=== PATIENT | male | born 1975 | race Caucasian/White ===

== ENCOUNTER 2023-08-31 08:57 | Outpatient (RCR) | payer BC, MEDICARE, SELFPAY | END 2023-09-09 09:00 | disposition home or self-care (01) | LOC: PT 08:57 | PROVIDERS: PCP Nurse Practitioner; Visit Provider Nurse Practitioner | DX: M54.42 Lumbago with sciatica, left side (principal) | CPT/HCPCS: 97110; 97140; 97162 ==

== ENCOUNTER 2023-09-10 09:26 | Outpatient (RCR) | payer BC, SELFPAY | END 2023-10-17 13:29 | disposition home or self-care (01) | LOC: PT 09:26 | PROVIDERS: PCP Nurse Practitioner; Visit Provider Nurse Practitioner | DX: M54.42 Lumbago with sciatica, left side (principal) | CPT/HCPCS: 97012; 97014; 97110; 97113; 97140 ==

== ENCOUNTER 2023-10-29 08:19 | Outpatient (OUT) | payer BC, MEDICARE, SELFPAY ==
--- NOTE | 2023-10-29 | XR_ITS ---
The [address] [address] Patient Name: RAKESH PIÑA MRN: [id number] date: 1975 Sex: M Assigned Patient Location: Current Patient Location: Accession/Order Number: [id number] Exam Date: 10/29/2023 08:25 Report Date: 10/29/2023 09:21 At the request of: JUAN MANUEL CROW Procedure: XR hip LT 2V w/ pelvis PROCEDURE: XR hip LT 2V w/ pelvis HISTORY: LEFT HIP PAIN , pelvis pain COMPARISON: None. FINDINGS: BONES:Mild narrowing of the hip joint spaces, left greater than right. Small periarticular degenerative osteophytes. No fracture or dislocation. Disc space narrowing of the visible lumbar spine. SOFT TISSUES:No visible soft tissue swelling. EFFUSION:None visible. OTHER: Negative. XR/XR hip LT 2V w/ pelvis IMPRESSION: 1. Slightly limited examination due to patient body habitus. 2. Mild/moderate degenerative joint disease. No acute bone abnormality. 3. Degenerative disc disease of lumbar spine. Electronically authenticated by: JUAN MANUEL RINALDI Date: 10/29/2023 09:21
--- OUTSIDE RECORDS SUMMARY | 2023-10-29 08:07 | XMS_ITS | CCD ---
Author Name Unknown Address [address] [place] [address] Organization [facility] Care Team Providers Care Edge Kitter Name Role Phone MAZIN CANO Admitting Unavailable RACHAEL, MAZIN Attending Unavailable SHEILA, DR LULU Tejeda Primary Care Unavailable WEST, DR KELLIE Benavides Consulting Unavailable MAZIN CANO Consulting Unavailable SHEILA, DR LULU Tejeda Admitting Unavailable BLANK, DR LULU Tejeda Attending Unavailable BLANK, DR LULU Tejeda Primary Care Unavailable BLANK, DR LULU Tejeda Consulting Unavailable WEST, DR KELLIE Benavides Consulting Unavailable BLANK, DR LULU Tejeda Admitting Unavailable BLANK, DR LULU Tejeda Attending Unavailable BLANK, DR LULU Tejeda Primary Care Unavailable BLANK, DR LULU Tejeda Consulting Unavailable BLANK, DR LULU Tejeda Primary Care Unavailable FOZIA UGALDE Consulting Unavailable TRAM, FOZIA Admitting Unavailable TRAM, FOZIA Attending Unavailable Alexia Mancilla Primary Care Physician Alexia Mancilla Attending Unavailable Laurent, Alexia Sewell Admitting Unavailable Laurent, Alexia Sewell Attending Unavailable Laurent, Alexia Sewell Attending Unavailable Laurent, Alexia Sewell Admitting Unavailable Laurent, Alexia Sewell Attending Unavailable Laurent, Alexia Sewell Attending Unavailable Laurent, Alexia Sewell Attending Unavailable Laurent, Alexia Sewell Attending Unavailable Laurent, Alexia Sewell Attending Unavailable Medications Current Medications Medication Drug Class(es) Dates Sig (Normalized) Sig (Original) Cranberry preparation (1 source) Non-Standardized Food Allergenic Extract, Non-Standardized Plant Allergenic Extract Start: 03-19-2023 take 1 tablet by mouth once daily cranberry oral capsule See Instructions, Refill(s) 0, 1 tablet daily Start Date: 03/19/23 Status: Ordered Fish Oils (1 source) Start: 03-19-2023 take 1 capsule by mouth once daily Fish Oil 500 mg oral capsule 500 mg = 1 cap(s), Oral, Daily, Refills(s) 0 Start Date: 03/19/23 Status: Ordered loratadine 10 mg oral capsule (1 source) Start: 03-19-2023 take 1 capsule by mouth once daily as needed loratadine 10 mg oral capsule 10 mg = 1 cap(s), Oral, Daily, PRN Allergy symptoms, # 10 cap(s), Refills(s) 0 Start Date: 03/19/23 Status: Ordered methylPREDNISolone 4 mg oral tablet (1 source) Corticosteroid Start: 03-19-2023 End: 03-25-2023 Medrol 4 mg Tab = 1 packet(s), Oral, As Directed, as directed on package labeling, X 6 day(s), # 21 tab(s), Refills(s) 0, Pharmacy: [facility]/pharmacy #[id number], 176.5, cm, 03/19/23 13:15:00 EDT, Height/Length Dosing Start Date: 03/19/23 Stop Date: 03/25/23 Status: Ordered PARoxetine hydrochloride 10 mg oral tablet (1 source) Serotonin Reuptake Inhibitor Start: 03-19-2023 take 1 tablet by mouth once daily paroxetine 10 mg Tab 10 mg = 1 tab(s), Oral, Daily, Refills(s) 0 Start Date: 03/19/23 Status: Ordered phentermine hydrochloride 37.5 mg oral tablet (1 source) Sympathomimetic Amine Anorectic Start: 03-19-2023 End: 04-18-2023 take 1 tablet by mouth once daily phentermine 37.5 mg Tab 37.5 mg = 1 tab(s), Oral, Daily, X 30 day(s), # 30 tab(s), Refills(s) 0, Pharmacy: [facility]/pharmacy #[id number], 176.5, cm, 03/19/23 13:15:00 EDT, Height/Length Dosing Start Date: 03/19/23 Stop Date: 04/18/23 Status: Ordered Problems Active Problems Problem Classification Problem Date Documented Da te Episodic/Chronic Disorders of lipid metabolism (1 source) Mixed hyperlipidemia; Translations: [MIXED HYPERLIPIDEMIA] Onset: 07-31-2022 Chronic Nutritional deficiencies (1 source) Vitamin D deficiency, unspecified; Translations: [VITAMIN D DEFICIENCY UNSPECIFIED] Onset: 07-31-2022 Chronic Other nutritional; endocrine; and metabolic disorders (1 source) Morbid (severe) obesity due to excess calories; Translations: [MORBID SEVERE OBES D/T EXCESS GAYATRI] Onset: 07-31-2022 Chronic Other nutritional; endocrine; and metabolic disorders (1 source) Body mass index (BMI) 50.0-59.9, adult; Translations: [BODY MASS INDEX BMI 50.0-59.9 ADULT] Onset: 07-31-2022 Chronic Other nutritional; endocrine; and metabolic disorders (1 source) Morbid obesity 03-19-2023 Chronic Other upper respiratory infections (5 sources) Acute pharyngitis, unspecified; Translations: [Acute upper respiratory infection, unspecified] Onset: 07-28-2022 Episodic Residual codes; unclassified (1 source) Obstructive sleep apnea (adult) (pediatric); Translations: [OBSTRUCTIVE SLEEP APNEA] Onset: 07-31-2022 Chronic Screening and history of mental health and substance abuse codes (1 source) Personal history of nicotine dependence; Translations: [PERSONAL HISTORY OF NICOTINE DEPEND] Onset: 07-31-2022 Episodic Spondylosis; intervertebral disc disorders; other back problems (1 source) Sciatica 03-19-2023 Episodic Unclassified (1 source) CONTACT W/AND (SUSP) EXPOS COVID-19; Translations: [CONTACT W/AND (SUSP) EXPOS COVID-19] Onset: 07-31-2022 Unclassified (1 source) COUGH, UNSPECIFIED; Translations: [COUGH, UNSPECIFIED] Onset: 02-03-2022 Unclassified (1 source) Patient encounter status 03-19-2023 Past or Other Problems Problem Classification Problem Date Documented Da te Episodic/Chronic Conditions associated with dizziness or vertigo (4 sources) Dizziness and giddiness; Translations: [DIZZINESS AND GIDDINESS] Onset: 02-01-2022 Episodic Fracture of upper limb (1 source) Other fracture of fifth metacarpal bone, left hand, initial encounter for closed fracture; Translations: [OTH FX 5TH MC BN LH INIT CLOS FX] Onset: 11-11-2021 Episodic Other upper respiratory disease (1 source) Nasal congestion; Translations: [NASAL CONGESTION] Onset: 02-03-2022 Episodic Superficial injury; contusion (6 sources) Contusion of left little finger without damage to nail, initial encounter; Translations: [Contusion of left ring finger without damage to nail, initial encounter] Onset: 11-10-2021 Episodic Results Test Name Value Interpretation Reference Range Facility Plan of Care - PT/OT/Speecho n 09-06-2023 Plan of Care - PT/OT/Speech [id number]#1 .00TIFF [facility] Physician Referralon 023 Physician Referral [id number]# 1.00TIFF [facility] Testost Totalon 08-25-2023 Testosterone [Mass/Vol] 321 ng/dL Invalid Interpretation Code [id number] [facility] Comment on above: Result Comment: Adul t male reference interval is based on a population of healthy nonobese males (BMI <30) between 19 and 39 years old. precious Perdue.al. JCEM 2017,102;0182-9464. PMID: [id number]. Performed at: [facility] [id number] PhD Domenic Rider Performed By: #### 2 [id number] ####[facility] [address] [place] [address] Reminderson 08-24-2023 Reminders - From: Alexia Muhammad To: [facility] - Clinical; Sent: 08/24/2023 14:20:02 EST Show up: 08/24/2023 14:20:00 EST Subject: Ambulatory Reminder Due Date/Time: 08/25/2023 14:19:00 EST Vitamin B12 and D are normal. Still waiting for testosterone level Results: Date Result Name Value Ref Range 08/23/2023 9:59 Vitamin B12 Lvl 301 pg/mL (50 - 1,500) 08/23/2023 9:59 Vitamin D 25 Hydroxy 57.7 ng/mL (30.0 - 100.0) left detailed message for patient below [facility] Family Medicine Office/Clini c Noteon 08-23-2023 Family Medicine Office/Clinic Note Chief Complaint 1 mo weight management f/u HPI Staff Rakesh is a 48 year old male presenting for 1 month follow up Weight management: Started Phentermine on 03/19/23 Sleeping well:Yes, 6-8 hours Chest pain:No Tremors:No Headaches:No Heart fluttering:No Blurred Vision:No Beginning weight: 473Ibs Previous weight: 187.2kg/411.8Ibs Today's weight: 187.5kg Questions/Concerns: Pt states the Adipex is not affecting his appetite anymore. He would like to discuss stopping and trying low carb. L Sciatic Nerve Pain - Pt was started on Cyclobenzaprine and Gabapentin at his Nov visit. He stopped taking those about 2 wks ago, states the Cyclobenzaprine made him tired all day and the Gabapentin made him feel like every thing was in slow motion. 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 He would like to discuss having his B12 checked, he is wondering if he is lacking in this and if this could be the cause of his leg pain. The standard range for ages 18 and older is >=18.5 and < 25 kg/m2. Your BMI today was above this range, this falls in the overweight to obese category and there are medical benefits to weight loss. We can offer counselling, referral, and/or medical support in addressing this problem. Your BMI and weight management will be followed at subsequent visits. History of Present Illness pt presents today for weight management. Review of Systems PHQ Score Initial Depression Screen Score: 0 SCORE ROS - Provider Constitutional: no fever, no chills, no sweats, no fatigue Respiratory: no shortness of breath, no cough, no orthopnea, no wheezing. Cardiovascular: no chest pain, no palpitations, no edema. Neurologic: no headache, no dizziness, no numbness, no weakness. Physical Exam Vitals & Measurements HR: 78(Peripheral) BP: 136/86 SpO2: 98% HT: 69 in HT: 176.5 cm WT: 187.5 kg WT: 412.5 lb BMI: 60.19 General: alert, no acute distress ENMT: oral mucosa moist, no pharyngeal erythema or exudate Cardiovascular: regular rate and rhythm, normal peripheral perfusion Respiratory: Lungs CTA, respirations non labored Extremities: no deformity, no trauma Neurological: oriented x 4, LOC appropriate for age, CN II-XII intact, motor strength equal & normal bilaterally, speech normal Assessment/Plan 1. Encounter for weight management (Z76.89: Persons encountering health services in other specified circumstances) pt presents today for weight management. pt has only lost 1 pound. pt states adipex is no longer effective. will not send next dose. pt would like vitamin b12 and D checked as well as testosterone. if levels are normal he would like referral to PT at [place] for bakc/leg pain. gabapentin and muscles relaxers did not help. 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 all questions answered. RTC as needed Ordered: cyclobenzaprine, 10 mg = 1 tab(s), Oral, Bedtime, PRN for spasm, # 30 tab(s), Refills(s) 0, Pharmacy: [facility] [address], 176.5, cm, 07/26/23 9:32:00 EST, Height/Length Dosing, 187.2, kg, 07/26/23 9:32:00 EST, Weight Dosing gabapentin, 300 mg = 1 cap(s), Oral, Daily, # 30 cap(s), Refills(s) 0, Pharmacy: [facility] [address], 176.5, cm, 07/26/23 9:32:00 EST, Height/Length Dosing, 187.2, kg, 07/26/23 9:32:00 EST, Weight Dosing 2. Fatigue (R53.83: Other fatigue) labs drawn today Ordered: Lab Specimen Collect [id number] Testosterone Level Total 3. Hypogonadism male (E29.1: Testicular hypofunction) testosterone ordered Ordered: Lab Specimen Collect [id number] Testosterone Level Total 4. BMI 60.0-69.9, adult (Z68.44: Body mass index [BMI] 60.0-69.9, adult) bmi education complete Ordered: cyclobenzaprine, 10 mg = 1 tab(s), Oral, Bedtime, PRN for spasm, # 30 tab(s), Refills(s) 0, Pharmacy: [facility], 176.5, cm, 07/26/23 9:32:00 EST, Height/Length Dosing, 187.2, kg, 07/26/23 9:32:00 EST, Weight Dosing gabapentin, 300 mg = 1 cap(s), Oral, Daily, # 30 cap(s), Refills(s) 0, Pharmacy: [facility], 176.5, cm, 07/26/23 9:32:00 EST, Height/Length Dosing, 187.2, kg, 07/26/23 9:32:00 EST, Weight Dosing Testosterone Level Total Vitamin B12 Level Vitamin D 25 Hydroxy Follow-up No qualifying data available Patient Education Obesity, Adult, Jlon-qb-[id number] Problem List/Past Medical History Ongoing Encounter for weight management Fatigue Hypogonadism male Left sciatic nerve pain Morbid obesity due to excess calories Numbness and tingling of foot Wellness examination Historical No qualifying data Procedure/Surgical History Gastric sleeve. Medications cranberry oral capsule, See Instructions Fish Oil 500 mg oral capsule, 500 mg= 1 cap(s), Oral, Daily loratadine 10 mg oral capsule, 10 mg= 1 cap(s), Oral, Daily, PRN paroxetine 10 mg Tab, 10 mg= 1 tab(s), Oral, Daily, 3 refills phentermine 37.5 mg Tab, 37.5 mg= 1 tab(s), Oral, Daily Allergies No Known Allergies Social History Tobacco Former smoker, quit more than 30 days ago Tob (more content not included)... [facility] Comment on above: Result Comment: Elec tronically Signed By: Alexia Muhammad\.br\Date and Time Signed: 08/23/23 12:58 EST Patient Educationon 08-23-20 Patient Education Gastroenterology Obesity, Adult Obesity is having too much body fat. Being obese means that your weight is more than what is healthy for you. BMI (body mass index) is a number that explains how much body fat you have. If you have a BMI of 30 or more, you are obese. Obesity can cause serious health problems, such as: ? Stroke. ? Coronary artery disease (CAD). ? Type 2 diabetes. ? Some types of cancer. ? High blood pressure (hypertension). ? High cholesterol. ? Gallbladder stones. Obesity can also contribute to: ? Osteoarthritis. ? Sleep apnea. ? Infertility problems. What are the causes? ? Eating meals each day that are high in calories, sugar, and fat. ? Drinking a lot of drinks that have sugar in them. ? Being born with genes that may make you more likely to become obese. ? Having a medical condition that causes obesity. ? Taking certain medicines. ? Sitting a lot (having a sedentary lifestyle). ? Not getting enough sleep. What increases the risk? ? Having a family history of obesity. ? Living in an area with limited access to: ? [place], recreation centers, or sidewalks. ? Healthy food choices, such as grocery stores and [employer]. What are the signs or symptoms? The main sign is having too much body fat. How is this treated? Treatment for this condition often includes changing your lifestyle. Treatment may include: ? Changing your diet. This may include making a healthy meal plan. ? Exercise. This may include activity that causes your heart to beat faster (aerobic exercise) and strength training. Work with your doctor to design a program that works for you. ? Medicine to help you lose weight. This may be used if you are not able to lose one pound a week after 6 weeks of healthy eating and more exercise. ? Treating conditions that cause the obesity. ? Surgery. Options may include gastric banding and gastric bypass. This may be done if: ? Other treatments have not helped to improve your condition. ? You have a BMI of 40 or higher. ? You have life-threatening health problems related to obesity. Follow these instructions at home: Eating and drinking ? Follow advice from your doctor about what to eat and drink. Your doctor may tell you to: ? Limit fast food, sweets, and processed snack foods. ? Choose low-fat options. For example, choose low-fat milk instead of whole milk. ? Eat five or more servings of fruits or vegetables each day. ? Eat at home more often. This gives you more control over what you eat. ? Choose healthy foods when you eat out. ? Learn to read food labels. This will help you learn how much food is in one serving. ? Keep low-fat snacks available. ? Avoid drinks that have a lot of sugar in them. These include soda, fruit juice, iced tea with sugar, and flavored milk. ? Drink enough water to keep your pee (urine) pale yellow. ? Do not go on fad diets. Physical activity ? Exercise often, as told by your doctor. Most adults should get up to 150 minutes of moderate-intensity exercise every week.Ask your doctor: ? What types of exercise are safe for you. ? How often you should exercise. ? Warm up and stretch before being active. ? Do slow stretching after being active (cool down). ? Rest between times of being active. Lifestyle ? Work with your doctor and a food expert (dietitian) to set a weight-loss goal that is best for you. ? Limit your screen time. ? Find ways to reward yourself that do not involve food. ? Do not drink alcohol if: ? Your doctor tells you not to drink. ? You are , may be , or are planning to become . ? If you drink alcohol: ? Limit how much you have to: ? 0?1 drink a day for women. ? 0?2 drinks a day for men. ? Know how much alcohol is in your drink. In the [place] one drink equals one 12 oz bottle of beer (355 mL), one 5 oz glass of wine (148 mL), or one 1? oz glass of hard liquor (44 mL). General instructions ? Keep a weight-loss journal. This can help you keep track of: ? The food that you eat. ? How much exercise you get. ? Take xujj-epm-asdirpd and prescription medicines only as told by your doctor. ? Take vitamins and supplements only as told by your doctor. ? Think about joining a support group. ? Pay attention to your mental health as obesity can lead to depression or self esteem issues. ? Keep all follow-up visits. Contact a doctor if: ? You cannot meet your weight-loss goal after you have changed your diet and lifestyle for 6 weeks. ? You are having trouble breathing. Summary ? Obesity is having too much body fat. ? Being obese means that your weight is more than what is healthy for you. ? Work with your doctor to set a weight-loss goal. ? Get regular exercise as told by your doctor. This information is not intended to replace advice given to you by your health care provider. Make sure you discuss any questions you have with yo (more content not included)... [facility] Vit B12on 08-23-2023 Cobalamin (Vitamin B12) [Mass/Vol] 301 pg/mL Normal 50-1500 [facility] Comment on above: Performed By: #### 2 [id number] ####[facility] [address] [place] [address] Vitamin D 25 Hydroxyon 08-23 Vitamin D 25 Hydroxy 57.7 ng/mL Normal 30.0-100.0 [facility] Comment on above: Performed By: #### 2 [id number] ####[facility] [address] [place] [address] Ambulatory Visit Summaryon 1 09-25-2022 Ambulatory Visit Summary RAKESH PIÑA :1975 Visit Date:07/26/2023 Ambulatory Visit Instructions Your Diagnosis Encounter for weight management Left sciatic nerve pain Numbness and tingling of foot Class 3 obesity Nonsmoker BMI 60.0-69.9, adult Your Care Team Attending Physician - Alexia Muhammad Primary Care Physician - Alexia Muhammad This Is Your Medications List cranberry (cranberry oral capsule) loratadine (loratadine 10 mg oral capsule) omega-3 polyunsaturated fatty acids (Fish Oil 500 mg oral capsule) paroxetine (paroxetine 10 mg Tab) phentermine (phentermine 37.5 mg Tab) Procedures Performed Gastric sleeve. Discharge Vitals Temperature (Temporal Artery) 36.6 ?C Heart Rate (Peripheral) 82 Respiratory Rate 16 Blood Pressure 134/82 Height 176.5 cm Height 69 in Weight 187.2 kg Weight 411.84 lb BMI 60.09 What to do next Scheduled Follow-Up Appointments 2022 9:20 AM EST With: Alexia Muhammad Where: [facility] Family Medicine Office/Clini c Noteon 07-26-2023 Family Medicine Office/Clinic Note HPI Staff Rakesh is a 48 year old male presenting for 1 month follow up Weight management: Started Phentermine on 03/19/23 Sleeping well:Yes, 6-8 hours Chest pain:No Tremors:No Headaches:No Heart fluttering:No Blurred Vision:No Beginning weight: 473Ibs Previous weight:411.6Ibs/187.6 9kg Today's weight: 187.2kg/411.8lbs Flu: UTD questions/Concerns: Asking for results from neurologist had EMG bilater LE's has pain left lower leg. Needs the adipex refilled [facility] Needs paxil refilled but goes to [facility] History of Present Illness pt presents for weight managment Review of Systems PHQ Score Initial Depression Screen Score: 1 SCORE ROS - Provider Constitutional: no fever, no chills, no sweats, no fatigue Respiratory: no shortness of breath, no cough, no orthopnea, no wheezing. Cardiovascular: no chest pain, no palpitations, no edema. Neurologic: no headache, no dizziness, no numbness, no weakness. Physical Exam Vitals & Measurements T: 36.6 ?C(Temporal Artery) HR: 82(Peripheral) RR: 16 BP: 134/82 SpO2: 99% HT: 69 in HT: 176.5 cm WT: 187.2 kg WT: 411.84 lb BMI: 60.09 General: alert, no acute distress ENMT: oral mucosa moist, no pharyngeal erythema or exudate Cardiovascular: regular rate and rhythm, normal peripheral perfusion Respiratory: Lungs CTA, respirations non labored Extremities: no deformity, no trauma Neurological: oriented x 4, LOC appropriate for age, CN II-XII intact, motor strength equal & normal bilaterally, speech normal Assessment/Plan 1. Encounter for weight management (Z76.89: Persons encountering health services in other specified circumstances) pt did not lose this month. states the hip and leg pain is preventing him from do any extra exercise. will send another month of adipex Ordered: cyclobenzaprine, 10 mg = 1 tab(s), Oral, Bedtime, PRN for spasm, # 30 tab(s), Refills(s) 0, Pharmacy: [facility], 176.5, cm, 07/26/23 9:32:00 EST, Height/Length Dosing, 187.2, kg, 07/26/23 9:32:00 EST, Weight Dosing gabapentin, 300 mg = 1 cap(s), Oral, Daily, # 30 cap(s), Refills(s) 0, Pharmacy: [facility], 176.5, cm, 07/26/23 9:32:00 EST, Height/Length Dosing, 187.2, kg, 07/26/23 9:32:00 EST, Weight Dosing methylPREDNISolone, = 1 packet(s), Oral, As Directed, as directed on package labeling, X 6 day(s), # 21 tab(s), Refills(s) 0, Pharmacy: [facility] #[facility], 176.5, cm, 07/26/23 9:32:00 EST, Height/Length Dosing, 187.2, kg, 07/26/23 9:32:00 EST, Weight Dosing 2. Left sciatic nerve pain (M54.32: Sciatica, left side) discussed EMG results. will order gabapentin and muscle relaxer for bedtime. pt to rerutn in 1 month if no improvement will send to PT Ordered: cyclobenzaprine, 10 mg = 1 tab(s), Oral, Bedtime, PRN for spasm, # 30 tab(s), Refills(s) 0, Pharmacy: [facility] #[facility], 176.5, cm, 07/26/23 9:32:00 EST, Height/Length Dosing, 187.2, kg, 07/26/23 9:32:00 EST, Weight Dosing gabapentin, 300 mg = 1 cap(s), Oral, Daily, # 30 cap(s), Refills(s) 0, Pharmacy: [facility], 176.5, cm, 07/26/23 9:32:00 EST, Height/Length Dosing, 187.2, kg, 07/26/23 9:32:00 EST, Weight Dosing methylPREDNISolone, = 1 packet(s), Oral, As Directed, as directed on package labeling, X 6 day(s), # 21 tab(s), Refills(s) 0, Pharmacy: [facility], 176.5, cm, 07/26/23 9:32:00 EST, Height/Length Dosing, 187.2, kg, 07/26/23 9:32:00 EST, Weight Dosing 3. Numbness and tingling of foot (R20.0: Anesthesia of skin) discussed ENG results Ordered: cyclobenzaprine, 10 mg = 1 tab(s), Oral, Bedtime, PRN for spasm, # 30 tab(s), Refills(s) 0, Pharmacy: [facility], 176.5, cm, 07/26/23 9:32:00 EST, Height/Length Dosing, 187.2, kg, 07/26/23 9:32:00 EST, Weight Dosing gabapentin, 300 mg = 1 cap(s), Oral, Daily, # 30 cap(s), Refills(s) 0, Pharmacy: [facility], 176.5, cm, 07/26/23 9:32:00 EST, Height/Length Dosing, 187.2, kg, 07/26/23 9:32:00 EST, Weight Dosing methylPREDNISolone, = 1 packet(s), Oral, As Directed, as directed on package labeling, X 6 day(s), # 21 tab(s), Refills(s) 0, Pharmacy: [facility], 176.5, cm, 07/26/23 9:32:00 EST, Height/Length Dosing, 187.2, kg, 07/26/23 9:32:00 EST, Weight Dosing 4. Class 3 obesity (E66.01: Morbid (severe) obesity due to excess calories) pt continues with diet Ordered: cyclobenzaprine, 10 mg = 1 tab(s), Oral, Bedtime, PRN for spasm, # 30 tab(s), Refills(s) 0, Pharmacy: [facility], 176.5, cm, 07/26/23 9:32:00 EST, Height/Length Dosing, 187.2, kg, 07/26/23 9:32:00 EST, Weight Dosing gabapentin, 300 mg = 1 cap(s), Oral, Daily, # 30 cap(s), Refills(s) 0, Pharmacy: [facility], 176.5, cm, 07/26/23 9:32:00 EST, Height/Length Dosing, 187.2, kg, 07/26/23 9:32:00 EST, Weight Dosing methylPREDNISolone, = 1 packet(s), Oral, As Directed, as directed on package labeling, X 6 day(s), # 21 tab(s), Refills(s) 0, Pharmacy: [facility], (more content not included)... [facility] Comment on above: Result Comment: Elec tronically Signed By: Alexia Muhammad.br\Date and Time Signed: 07/26/23 09:54 EST EMG Electromyographyon 07-10 EMG Electromyography [id number]#1 .00TIFF [facility] EMG Electromyography [id number]#1. 00TIFF [facility] Physician Referralon 023 Physician Referral [id number] 1.00TIFF [facility] Ambulatory Visit Summaryon 1 Ambulatory Visit Summary RAKESH PIÑA :1975 Visit Date:06/21/2023 Ambulatory Visit Instructions Your Diagnosis Encounter for weight management BMI 50.0-59.9, adult Non-smoker BMI 60.0-69.9, adult Left sciatic nerve pain Morbid obesity due to excess calories Your Care Team Attending Physician - Alexia Muhammad Primary Care Physician - Alexia Muhammad This Is Your Medications List cranberry (cranberry oral capsule) loratadine (loratadine 10 mg oral capsule) meloxicam (meloxicam 15 mg Tab) omega-3 polyunsaturated fatty acids (Fish Oil 500 mg oral capsule) paroxetine (paroxetine 10 mg Tab) phentermine (phentermine 37.5 mg Tab) Procedures Performed Gastric sleeve. Discharge Vitals Heart Rate (Peripheral) 80 Respiratory Rate 18 Blood Pressure 136/88 Height 176.5 cm Height 69 in Weight 186.69 kg Weight 410.718 lb BMI 59.93 What to do next Scheduled Follow-Up Appointments 2022 9:20 AM EST With: Alexia Muhammad Where: [facility] Family Medicine Office/Clini c Noteon 06-21-2023 Family Medicine Office/Clinic Note HPI Staff Rakesh is a 48 year old male presenting for 1 month weight check Weight management: Started Phentermine on 03/19/23 Sleeping well:Yes, 6-8 hours Chest pain:No Tremors:No Headaches:No Heart fluttering:No Blurred Vision:No Beginning weight: 437.0 Ibs Previous weight: 418.5Ibs/190.23Kg Today's weight:411.6ibs/1876. 69 Questions/Concerns: none History of Present Illness pt presents today for weight management. Review of Systems PHQ Score Initial Depression Screen Score: 0 ROS - Provider Constitutional: no fever, no chills, no sweats, no fatigue Respiratory: no shortness of breath, no cough, no orthopnea, no wheezing. Cardiovascular: no chest pain, no palpitations, no edema. Neurologic: no headache, no dizziness, no numbness, no weakness. Physical Exam Vitals & Measurements HR: 80(Peripheral) RR: 18 BP: 136/88 SpO2: 98% HT: 69 in HT: 176.5 cm WT: 186.69 kg WT: 410.718 lb BMI: 59.93 General: alert, no acute distress ENMT: oral mucosa moist, no pharyngeal erythema or exudate Cardiovascular: regular rate and rhythm, normal peripheral perfusion Respiratory: Lungs CTA, respirations non labored Extremities: no deformity, no trauma Neurological: oriented x 4, LOC appropriate for age, CN II-XII intact, motor strength equal & normal bilaterally, speech normal Assessment/Plan 1. Encounter for weight management (Z76.89: Persons encountering health services in other specified circumstances) pt presents today for weight management. 8 pound weight loss in last month. total weight loss is 11 pounds. pt is doing well. denies needs. all questions answered. RTC 4 weeks Ordered: meloxicam, 15 mg = 1 tab(s), Oral, Daily, X 30 day(s), # 30 tab(s), Refills(s) 1, Pharmacy: [facility], 176.5, cm, 06/21/23 9:41:00 EDT, Height/Length Dosing, 186.7, kg, 06/21/23 9:41:00 EDT, Weight Dosing meloxicam, 15 mg = 1 tab(s), Oral, Daily, X 30 day(s), # 30 tab(s), Refills(s) 0, Pharmacy: [facility], 176.5, cm, 06/21/23 9:41:00 EDT, Height/Length Dosing, 186.7, kg, 06/21/23 9:41:00 EDT, Weight Dosing meloxicam, 15 mg = 1 tab(s), Oral, Daily, # 30 tab(s), Refills(s) 1, Pharmacy: [facility], 176.5, cm, 05/22/23 9:51:00 EDT, Height/Length Dosing, 190.2, kg, 05/22/23 9:51:00 EDT, Weight Dosing 2. Left sciatic nerve pain (M54.32: Sciatica, left side) pt continues to have left sciatic nerve pain but it is improved Ordered: meloxicam, 15 mg = 1 tab(s), Oral, Daily, X 30 day(s), # 30 tab(s), Refills(s) 1, Pharmacy: [facility], 176.5, cm, 06/21/23 9:41:00 EDT, Height/Length Dosing, 186.7, kg, 06/21/23 9:41:00 EDT, Weight Dosing meloxicam, 15 mg = 1 tab(s), Oral, Daily, X 30 day(s), # 30 tab(s), Refills(s) 0, Pharmacy: [facility], 176.5, cm, 06/21/23 9:41:00 EDT, Height/Length Dosing, 186.7, kg, 06/21/23 9:41:00 EDT, Weight Dosing meloxicam, 15 mg = 1 tab(s), Oral, Daily, # 30 tab(s), Refills(s) 1, Pharmacy: [facility], 176.5, cm, 05/22/23 9:51:00 EDT, Height/Length Dosing, 190.2, kg, 05/22/23 9:51:00 EDT, Weight Dosing phentermine, 37.5 mg = 1 tab(s), Oral, Daily, X 30 day(s), # 30 tab(s), Refills(s) 0, Pharmacy: [facility], 176.5, cm, 05/22/23 9:51:00 EDT, Height/Length Dosing, 190.2, kg, 05/22/23 9:51:00 EDT, Weight Dosing [facility] External Ambulatory Referral 3. Lower extremity numbness (R20.0: Anesthesia of skin) EMG order sent to [facility] in [place] Ordered: [facility] External Ambulatory Referral 4. Morbid obesity due to excess calories (E66.01: Morbid (severe) obesity due to excess calories) BMI education complete Ordered: meloxicam, 15 mg = 1 tab(s), Oral, Daily, X 30 day(s), # 30 tab(s), Refills(s) 1, Pharmacy: [facility], 176.5, cm, 06/21/23 9:41:00 EDT, Height/Length Dosing, 186.7, kg, 06/21/23 9:41:00 EDT, Weight Dosing meloxicam, 15 mg = 1 tab(s), Oral, Daily, X 30 day(s), # 30 tab(s), Refills(s) 0, Pharmacy: [facility], 176.5, cm, 06/21/23 9:41:00 EDT, Height/Length Dosing, 186.7, kg, 06/21/23 9:41:00 EDT, Weight Dosing meloxicam, 15 mg = 1 tab(s), Oral, Daily, # 30 tab(s), Refills(s) 1, Pharmacy: [facility], 176.5, cm, 05/22/23 9:51:00 EDT, Height/Length Dosing, 190.2, kg, 05/22/23 9:51:00 EDT, Weight Dosing phentermine, 37.5 mg = 1 tab(s), Oral, Daily, X 30 day(s), # 30 tab(s), Refills(s) 0, Pharmacy: [facility], 176.5, cm, 05/22/23 9:51:00 EDT, Height/Length Dosing, 190.2, kg, 05/22/23 9:51:00 EDT, Weight Dosing 5. BMI 50.0-59.9, adult (Z68.43: Body mass index [BMI] 50.0-59.9, adult) BMI education complete 6. Non-smoker (Z78.9: Other specified health status) continue not smoking Ordered: meloxicam, 15 mg = 1 tab(s), Oral, Daily, X 30 day(s), # 30 tab(s), Refills(s) 1, Pharmacy: [facility], 176.5, cm, 06/21/23 9:41:00 EDT, Height/Length Dosing, 186.7, kg, 06/21/23 9:41:00 EDT, Weight Dosing meloxicam, 15 mg = 1 tab(s), Or (more content not included)... [facility] Comment on above: Result Comment: Elec tronically Signed By: Alexia Muhammad\.br\Date and Time Signed: 06/21/23 14:25 EDT Ambulatory Visit Summaryon 0 05-22-2023 Ambulatory Visit Summary RAKESH PIÑA :1975 Visit Date:05/22/2023 Ambulatory Visit Instructions Your Diagnosis BMI 60.0-69.9, adult Non-smoker Your Care Team Attending Physician - Alexia Muhammad Primary Care Physician - Alexia Muhammad This Is Your Medications List cranberry (cranberry oral capsule) loratadine (loratadine 10 mg oral capsule) omega-3 polyunsaturated fatty acids (Fish Oil 500 mg oral capsule) paroxetine (paroxetine 10 mg Tab) phentermine (phentermine 37.5 mg Tab) Procedures Performed Gastric sleeve. Discharge Vitals Heart Rate (Peripheral) 76 Respiratory Rate 18 Blood Pressure 144/98 Height 176.5 cm Height 69 in Weight 190.23 kg Weight 418.506 lb BMI 61.06 What to do next Scheduled Follow-Up Appointments 2022 9:20 AM EDT With: Alexia Muhammad Where: [facility] Ambulatory Visit Summary RAKESH PIÑA :1975 Visit Date:05/22/2023 Ambulatory Visit Instructions Your Diagnosis BMI 60.0-69.9, adult Non-smoker Your Care Team Attending Physician - Alexia Muhammad Primary Care Physician - Alexia Muhammad This Is Your Medications List cranberry (cranberry oral capsule) loratadine (loratadine 10 mg oral capsule) omega-3 polyunsaturated fatty acids (Fish Oil 500 mg oral capsule) paroxetine (paroxetine 10 mg Tab) phentermine (phentermine 37.5 mg Tab) Procedures Performed Gastric sleeve. Discharge Vitals Heart Rate (Peripheral) 76 Respiratory Rate 18 Blood Pressure 144/98 Height 176.5 cm Height 69 in Weight 190.23 kg Weight 418.506 lb BMI 61.06 What to do next Scheduled Follow-Up Appointments 2022 9:20 AM EDT With: Alexia Muhammad Where: [facility] [place] Normal [facility] Office/Clini c Noteon 05-22-2023 [facility] Office/Clinic Note HPI Staff Rakesh is a 48 year old male presenting for weight management Weight management : 03/19/23 was started on Phentermine, last OV 04/24/23 weight was 191.59Kg/421.51Ibs Today weight: 419Ibs/190.23kg Sleeping well:Yes, 6-8 hours Chest pain:No Tremors:No Headaches:No Heart fluttering:No Blurred Vision:No Questions/Concerns: pt states having cramps to left thigh. History of Present Illness pt presents today for weight management. total weight loss 3 pounds Review of Systems PHQ Score Initial Depression Screen Score: 0 ROS - Provider Constitutional: no fever, no chills, no sweats, no fatigue Respiratory: no shortness of breath, no cough, no orthopnea, no wheezing. Cardiovascular: no chest pain, no palpitations, no edema. Neurologic: no headache, no dizziness, no numbness, no weakness. Physical Exam Vitals & Measurements HR: 76(Peripheral) RR: 18 BP: 144/98 SpO2: 98% HT: 69 in HT: 176.5 cm WT: 190.23 kg WT: 418.506 lb BMI: 61.06 General: alert, no acute distress ENMT: oral mucosa moist, no pharyngeal erythema or exudate Cardiovascular: regular rate and rhythm, normal peripheral perfusion Respiratory: Lungs CTA, respirations non labored Extremities: no deformity, no trauma Neurological: oriented x 4, LOC appropriate for age, CN II-XII intact, motor strength equal & normal bilaterally, speech normal Assessment/Plan 1. Encounter for weight management (Z76.89: Persons encountering health services in other specified circumstances) pt presents today for weight management. total weight loss in 1 month is 3 pounds. pt is doing well. denies side effects, but does states that he keeps getting cramps in his legs at night. 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 all questions answered. RTC 4 weeks Ordered: meloxicam, 15 mg = 1 tab(s), Oral, Daily, # 30 tab(s), Refills(s) 1, Pharmacy: [facility], 176.5, cm, 05/22/23 9:51:00 EDT, Height/Length Dosing, 190.2, kg, 05/22/23 9:51:00 EDT, Weight Dosing 2. Left sciatic nerve pain (M54.32: Sciatica, left side) will order antiinflammatory. steroid did not give him any relief Ordered: meloxicam, 15 mg = 1 tab(s), Oral, Daily, # 30 tab(s), Refills(s) 1, Pharmacy: [facility], 176.5, cm, 05/22/23 9:51:00 EDT, Height/Length Dosing, 190.2, kg, 05/22/23 9:51:00 EDT, Weight Dosing phentermine, 37.5 mg = 1 tab(s), Oral, Daily, X 30 day(s), # 30 tab(s), Refills(s) 0 phentermine, 37.5 mg = 1 tab(s), Oral, Daily, X 30 day(s), # 30 tab(s), Refills(s) 0, Pharmacy: [facility], 176.5, cm, 05/22/23 9:51:00 EDT, Height/Length Dosing, 190.2, kg, 05/22/23 9:51:00 EDT, Weight Dosing 3. BMI 60.0-69.9, adult (Z68.44: Body mass index [BMI] 60.0-69.9, adult) BMI education complete Ordered: meloxicam, 15 mg = 1 tab(s), Oral, Daily, # 30 tab(s), Refills(s) 1, Pharmacy: [facility], 176.5, cm, 05/22/23 9:51:00 EDT, Height/Length Dosing, 190.2, kg, 05/22/23 9:51:00 EDT, Weight Dosing 4. Morbid obesity due to excess calories (E66.01: Morbid (severe) obesity due to excess calories) see above Ordered: meloxicam, 15 mg = 1 tab(s), Oral, Daily, # 30 tab(s), Refills(s) 1, Pharmacy: [facility], 176.5, cm, 05/22/23 9:51:00 EDT, Height/Length Dosing, 190.2, kg, 05/22/23 9:51:00 EDT, Weight Dosing phentermine, 37.5 mg = 1 tab(s), Oral, Daily, X 30 day(s), # 30 tab(s), Refills(s) 0 phentermine, 37.5 mg = 1 tab(s), Oral, Daily, X 30 day(s), # 30 tab(s), Refills(s) 0, Pharmacy: [facility], 176.5, cm, 05/22/23 9:51:00 EDT, Height/Length Dosing, 190.2, kg, 05/22/23 9:51:00 EDT, Weight Dosing 5. Non-smoker (Z78.9: Other specified health status) continue not smoking Ordered: meloxicam, 15 mg = 1 tab(s), Oral, Daily, # 30 tab(s), Refills(s) 1, Pharmacy: [facility], 176.5, cm, 05/22/23 9:51:00 EDT, Height/Length Dosing, 190.2, kg, 05/22/23 9:51:00 EDT, Weight Dosing phentermine, 37.5 mg = 1 tab(s), Oral, Daily, X 30 day(s), # 30 tab(s), Refills(s) 0 phentermine, 37.5 mg = 1 tab(s), Oral, Daily, X 30 day(s), # 30 tab(s), Refills(s) 0, Pharmacy: [facility], 176.5, cm, 05/22/23 9:51:00 EDT, Height/Length Dosing, 190.2, kg, 05/22/23 9:51:00 EDT, Weight Dosing Follow-up No qualifying data available Problem List/Past Medical History Ongoing Encounter for weight management Left sciatic nerve pain Morbid obesity due to excess calories Wellness examination Historical No qualifying data Procedure/Surgical History Gastric sleeve. Medications cranberry oral capsule, See Instructions Fish Oil 500 mg oral capsule, 500 mg= 1 cap(s), Oral, Daily loratadine 10 mg oral capsule, 10 mg= 1 cap(s), Oral, Daily, PRN meloxicam 15 mg Tab, 15 mg= 1 tab(s), Oral, Daily, 1 refills paroxetine 10 mg Tab, 10 mg= 1 tab(s), Oral, Daily phentermine 37.5 mg Tab, 37.5 mg= 1 tab(s), Oral, Daily phentermine 37.5 mg Tab, 37.5 mg= 1 tab(s), Oral, Daily Allerg (more content not included)... Normal [facility] Comment on above: Result Comment: Elec tronically Signed By: Alexia Muhammad\.br\Date and Time Signed: 05/22/23 10:34 EDT [place] 04-26-2023 Consent [id number]:127 Normal [facility] Family Medicine Office/Clini c Noteon 04-24-2023 Family Medicine Office/Clinic Note HPI Staff Rakesh is a 48 year old male presenting for 1 month follow up weight management Weight management 03/19/23 patient was started on Phentermine 37.5 Previous weight 03/19/23 pt stated his last know weight was 410Ibs/ last documented weight from previous provider was 437 Sleeping well:Yes, 6-8 hours Chest pain:No Tremors:No Headaches:No Heart fluttering:No Blurred Vision:No History of Present Illness pt presents today for weight management. Last documented weight was 437 today's weight 422.4. Review of Systems PHQ Score Initial Depression Screen Score: 0 ROS - Provider Constitutional: no fever, no chills, no sweats, no fatigue Respiratory: no shortness of breath, no cough, no orthopnea, no wheezing. Cardiovascular: no chest pain, no palpitations, no edema. Neurologic: no headache, no dizziness, no numbness, no weakness. Physical Exam Vitals & Measurements HR: 82(Peripheral) RR: 18 BP: 132/88 SpO2: 98% HT: 69 in HT: 176.5 cm WT: 191.597 kg WT: 421.513 lb BMI: 61.5 General: alert, no acute distress ENMT: oral mucosa moist, no pharyngeal erythema or exudate Cardiovascular: regular rate and rhythm, normal peripheral perfusion Respiratory: Lungs CTA, respirations non labored Extremities: no deformity, no trauma Neurological: oriented x 4, LOC appropriate for age, CN II-XII intact, motor strength equal & normal bilaterally, speech normal Assessment/Plan 1. Encounter for weight management (Z76.89: Persons encountering health services in other specified circumstances) pt presents today for weight management. pt is doing well. denies side effects. Unable to get weight at first visit. but last documented weight from Dr. Blank was 437. today's weight in office is 422.4. paper prescription was given to pt. he will try to find cheaper pharmacy. RTC 4 weeks 2. Morbid obesity due to excess calories (E66.01: Morbid (severe) obesity due to excess calories) see above 3. BMI 60.0-69.9, adult (Z68.44: Body mass index [BMI] 60.0-69.9, adult) BMI education complete Ordered: phentermine, 37.5 mg = 1 tab(s), Oral, Daily, # 30 tab(s), Refills(s) 0 4. Non-smoker (Z78.9: Other specified health status) continue not smoking Ordered: phentermine, 37.5 mg = 1 tab(s), Oral, Daily, # 30 tab(s), Refills(s) 0 Follow-up No qualifying data available Problem List/Past Medical History Ongoing Encounter for weight management Left sciatic nerve pain Morbid obesity due to excess calories Wellness examination Historical No qualifying data Procedure/Surgical History Gastric sleeve. Medications cranberry oral capsule, See Instructions Fish Oil 500 mg oral capsule, 500 mg= 1 cap(s), Oral, Daily loratadine 10 mg oral capsule, 10 mg= 1 cap(s), Oral, Daily, PRN paroxetine 10 mg Tab, 10 mg= 1 tab(s), Oral, Daily phentermine 37.5 mg Tab, 37.5 mg= 1 tab(s), Oral, Daily Allergies No Known Allergies Social History Tobacco Former smoker, quit more than 30 days ago Tobacco Use:. Never Smokeless Tobacco Use:. Cigarettes, Household tobacco concerns: No., 04/24/2023 Family History Hypertension: Father. Immunizations Vaccine Date Status influenza virus vaccine, inactivated 06/07/2022 Recorded SARS-CoV-2 (COVID-19) mRNA BNT-162b2 vax 11/12/2020 Recorded SARS-CoV-2 (COVID-19) mRNA BNT-162b2 vax 10/22/2020 Recorded pneumococcal 23-valent vaccine 03/10/2019 Recorded Dx: H92 SAMI TM full of clear fluid pt is having dizziness. will give kenalog 60mg IM in office today. [facility] Comment on above: Result Comment: Elec tronically Signed By: Alexia Muhammad\.br\Date and Time Signed: 04/24/23 13:42 EDT Ambulatory Visit Summaryon 0 03-19-2023 Ambulatory Visit Summary RAKESH PIÑA :1975 Visit Date:03/19/2023 Ambulatory Visit Instructions Your Diagnosis Wellness examination Morbid obesity due to excess calories Non-smoker Left sciatic nerve pain Colon cancer screening Your Care Team Attending Physician - Alexia Muhammad Primary Care Physician - Alexia Muhammad This Is Your Medications List cranberry (cranberry oral capsule) loratadine (loratadine 10 mg oral capsule) methylPREDNISolone (Medrol 4 mg Tab) omega-3 polyunsaturated fatty acids (Fish Oil 500 mg oral capsule) paroxetine (paroxetine 10 mg Tab) phentermine (phentermine 37.5 mg Tab) Procedures Performed Gastric sleeve. Discharge Vitals Temperature (Oral) 36.8 ?C Heart Rate (Peripheral) 74 Respiratory Rate 18 Blood Pressure 136/88 Height 176.5 cm Height 69 in What to do next Scheduled Follow-Up Appointments Sunday 11:00 AM EDT With: Alexia Muhammad Where: [facility] Auto Diffon 03-19-2023 Basophils/100 WBC (Bld) 0.3 % Normal 0.0-2.0 [facility] Comment on above: Order Comment: Order Added by Discern Expert. Performed By: #### 2 [id number], 3906843, 3097719, [id number], [id number] ####[facility] [address] [place] [address] Basophils/Leukocytes Auto (Bld) [Pure # fraction] 0.0 E9/L Normal 0.0-0.2 [facility] Comment on above: Order Comment: Order Added by Discern Expert. Performed By: #### 2 010545, 9306938, 3141872, [id number], [id number] ####[address] [address] Eosinophils/100 WBC (Bld) 2.1 % Normal 0.0-8.0 [facility] Comment on above: Order Comment: Order Added by Discern Expert. Performed By: #### 2 653276, 4486097, 3894750, 2692461, [id number] ####[address] [address] Eosinophils/Leukocytes Auto (Bld) [Pure # fraction] 0.2 E9/L Normal 0.0-0.5 [facility] Comment on above: Order Comment: Order Added by Discern Expert. Performed By: #### 2 718439, 9101810, 9282136, 0166103, [id number] ####[address] [address] Lymphocytes/100 WBC (Bld) 20.5 % Normal 14.0-50.0 [facility] Comment on above: Order Comment: Order Added by Discern Expert. Performed By: #### 2 884326, 3113316, 4557532, 5598830, [id number] ####[facility] [id number] [place] [address] Lymphocytes/Leukocytes Auto (Bld) [Pure # fraction] 1.6 E9/L Normal 1.0-4.0 [facility] Comment on above: Order Comment: Order Added by Discern Expert. Performed By: #### 2 258937, 0371421, 2205882, 0334706, [id number] ####[address] [address] Monocytes/100 WBC (Bld) 8.7 % Normal 4.0-14.0 [facility] Comment on above: Order Comment: Order Added by Discern Expert. Performed By: #### 2 138007, 4670938, 6101300, 3743829, [id number] ####[address] [place] [address] Monocytes/Leukocytes Auto (Bld) [Pure # fraction] 0.7 E9/L Normal 0.2-1.0 [facility] Comment on above: Order Comment: Order Added by Discern Expert. Performed By: #### 2 331099, 7817087, 9180247, 1262827, [id number] ####[address] [place] [address] Neutrophils/100 WBC (Bld) 68.4 % Normal 36.0-75.0 [facility] Comment on above: Order Comment: Order Added by Discern Expert. Performed By: #### 2 505140, 0880925, 1271352, 8263674, [id number] ####[address] [address] Neutrophils/Leukocytes Auto (Bld) [Pure # fraction] 5.3 E9/L Normal 2.0-7.5 [facility] Comment on above: Order Comment: Order Added by Discern Expert. Performed By: #### 2 756940, 3718212, 9165316, 1084233, [id number] ####[address] [address] CBC w/ Auto Diffon 3 Erythrocyte distribution width (RBC) [Ratio] 16.3 % High 10.9-14.2 [facility] Comment on above: Performed By: #### 2 506093, 4217490, 4633002, 5724750, [id number] ####[address] [place] [address] Hematocrit (Bld) [Volume fraction] 43.7 % Normal 37.7-49.0 [facility] Comment on above: Performed By: #### 2 599557, 8748954, 5246726, 0619406, [id number] ####[address] [address] Hemoglobin (Bld) [Mass/Vol] 14.4 g/dL Normal 13.5-17.5 [facility] Comment on above: Performed By: #### 2 031735, 2798412, 4366341, 9678866, [id number] ####[id number] MCH (RBC) [Entitic mass] 27.9 pg Normal 27.0-34.0 [facility] Comment on above: Performed By: #### 2 520121, 4974754, 3838969, 3575634, 96699110 ####[address] [address] MCHC (RBC) [Mass/Vol] 33.0 g/dL Normal 31.4-36.0 [facility] Comment on above: Performed By: #### 2 960361, 4855081, 9639591, 6768265, [id number] ####[address] [address] MCV (RBC) [Entitic vol] 84.8 fL Normal 80.0-100.0 [facility] Comment on above: Performed By: #### 2 756797, 4163735, 9832495, 5744091, 67858205 ####[address] [address] Platelet mean volume (Bld) [Entitic vol] 7.7 fL Normal 6.4-10.8 [facility] Comment on above: Performed By: #### 2 974535, 5477583, 7228813, 5984967, 40648996 ####[address] [address] Platelets (Bld) [#/Vol] 278.0 E9/L Normal 150.0-500.0 [facility] Comment on above: Performed By: #### 2 651802, 0071291, 0432736, 6742448, 75332109 ####[facility] [address] [place] [address] RBC (Bld) [#/Vol] 5.2 E12/L Normal 4.3-5.9 [facility] Comment on above: Performed By: #### 2 383279, 5558986, 9125305, 4160937, [id number] ####[facility] [address] [place] [address] WBC corrected for nucl RBC Auto (Bld) [#/Vol] 7.7 E9/L Normal 4.0-11.0 [facility] Comment on above: Performed By: #### 2 108615, 2986087, 6155745, 0212395, [id number] ####[facility] [address] [place] [address] CHEMISTRYOrdered By: SYSTEM SYSTEM on 03-19-2023 Cholesterol [Mass/Vol] 171 mg/dL Normal 120 - 200 mg/dL [facility] Cholesterol in HDL [Mass/Vol] 39 mg/dL Invalid Interpretation Code [facility] Cholesterol in LDL [Mass/Vol] 112 mg/dL Normal <=129mg/dL [facility] Cholesterol in VLDL [Mass/Vol] 19 mg/dL Normal 7 - 40 mg/dL [facility] Prostate specific Ag [Mass/Vol] 0.9 ng/mL Normal 0.1 - 3.5 ng/mL [facility] Triglyceride [Mass/Vol] 94 mg/dL Normal <=149mg/dL [facility] TSH Qn 2.03 m[IU]/L Normal 0.34 - 5.60 mcIU/mL [facility] Family Medicine Office/Clini c Noteon 03-19-2023 Family Medicine Office/Clinic Note HPI Staff Rakesh is a 47 year old presenting to establish care/physical Establish Care: History: Any previous diagnosis: History of seeing any specialist: no When was your last doctors visit: Last provider: Dr Blank Any recent labs: none within the last year Health Maintenance UTD: Colonoscopy: no PSA: no Acute: Current issues/complaints: 1 year Intermittent Pain started left hip radiating down left leg , has been doing stretches and taking vitamin B. OTC Aleve unable to obtain weight, weight scale says error patient states last known weight was 410Ibs History of Present Illness pt presents today for wellness visit Review of Systems PHQ Score Initial Depression Screen Score: 0 ROS - Provider Constitutional: no fever, no chills, no sweats, no weakness. Skin: no Jaundice, no rash, no lesions, no petechiae. ENMT: no ear pain, no sore throat, no congestion, no hoarseness,no swelling of lymph nodes Respiratory: no shortness of breath, no cough, no orthopnea, no wheezing. Cardiovascular: no chest pain, no palpitations, no edema. Gastrointestinal: no nausea, no vomiting, no diarrhea, no GI bleeding. Genitourinary: no dysuria, no hematuria, no discharge, no pain. Musculoskeletal: no back pain, no trauma. Neurologic: no headache, no dizziness, no numbness, no weakness. Psychiatric: noDepressionno Anxietyno sleeping problems, no Suicidal thoughts or ideationsno mood swings Additional ROS info: Except as noted in the above Review of Systems and in the History of Present Illness all other systems have been reviewed and are negative or noncontributory. Physical Exam Vitals & Measurements T: 36.8 ?C(Oral) HR: 74(Peripheral) RR: 18 BP: 136/88 SpO2: 97% HT: 69 in HT: 176.5 cm General: alert, no acute distress Skin: warm, dry Head: no trauma, normocephalic Neck: Trachea midline, thyroid not enlarged Eye: normal conjunctiva, sclera clear ENMT: oral mucosa moist, yes Cardiovascular: regular rate and rhythm, normal Respiratory: respirations non labored Chest wall: no deformity. Gastrointestinal: soft, non distended, no tenderness Back: No tenderness Extremities: no edema, no wound Neurological: awake, alert, oriented, speech normal Psychiatric: cooperative, affect appropriate for age Assessment/Plan 1. Wellness examination (Z00.00: Encounter for general adult medical examination without abnormal findings) pt presents today for wellness exam. work physical. pt is c/o left sided sciatic pain. pt is aware that if he would lose some weight this would help his pain. adipex will be sent. physical forms complete. urine tested for glucose was negative. all questions answered. RTC 4 weeks for weight check. Ordered: methylPREDNISolone, = 1 packet(s), Oral, As Directed, as directed on package labeling, X 6 day(s), # 21 tab(s), Refills(s) 0, Pharmacy: [facility]/pharmacy #[id number], 176.5, cm, 03/19/23 13:15:00 EDT, Height/Length Dosing phentermine, 37.5 mg = 1 tab(s), Oral, Daily, # 30 tab(s), Refills(s) 0, Pharmacy: [facility]/pharmacy #[id number], 176.5, cm, 03/19/23 13:15:00 EDT, Height/Length Dosing CBC w/ Auto Diff Cologuard Screening Test Lipid Panel PSA Screen, Total Thyroid Stimulating Hormone 2. Morbid obesity due to excess calories (E66.01: Morbid (severe) obesity due to excess calories) pt presents today. unable to get recent weight. scale will not measure. will send adipex Ordered: methylPREDNISolone, = 1 packet(s), Oral, As Directed, as directed on package labeling, X 6 day(s), # 21 tab(s), Refills(s) 0, [id number] 176.5, cm, 03/19/23 13:15:00 EDT, Height/Length Dosing phentermine, 37.5 mg = 1 tab(s), Oral, Daily, # 30 tab(s), Refills(s) 0, [id number], 176.5, cm, 03/19/23 13:15:00 EDT, Height/Length Dosing CBC w/ Auto Diff Cologuard Screening Test Lipid Panel PSA Screen, Total Thyroid Stimulating Hormone 3. Non-smoker (Z78.9: Other specified health status) continue not smoking Ordered: methylPREDNISolone, = 1 packet(s), Oral, As Directed, as directed on package labeling, X 6 day(s), # 21 tab(s), Refills(s) 0, Pharmacy: [facility]/pharmacy #[id number], 176.5, cm, 03/19/23 13:15:00 EDT, Height/Length Dosing phentermine, 37.5 mg = 1 tab(s), Oral, Daily, # 30 tab(s), Refills(s) 0, Pharmacy: [facility]/pharmacy #[id number], 176.5, cm, 03/19/23 13:15:00 EDT, Height/Length Dosing CBC w/ Auto Diff Cologuard Screening Test Lipid Panel PSA Screen, Total Thyroid Stimulating Hormone 4. Left sciatic nerve pain (M54.32: Sciatica, left side) medrol dose pack sent Ordered: methylPREDNISolone, = 1 packet(s), Oral, As Directed, as directed on package labeling, X 6 day(s), # 21 tab(s), Refills(s) 0, Pharmacy: [facility]/pharmacy #[id number], 176.5, cm, 03/19/23 13:15:00 EDT, Height/Length Dosing phentermine, 37.5 mg = 1 tab(s), Oral, Daily, # 30 tab(s), Refills(s) 0, [id number], 176.5, cm, 03/19/23 13:15:00 EDT, Height/Length Dosing Colon cancer screening (Z12.11: (more content not included)... Normal [facility] Comment on above: Result Comment: Elec tronically Signed By: Alexia Muhammad\.br\Date and Time Signed: 03/19/23 14:00 EDT Formson 03-19-2023 Forms [id number]:127 Normal [facility] HEMATOLOGYOrdered By: SYSTEM SYSTEM on 03-19-2023 Basophils/100 WBC (Bld) 0.3 % Normal 0.0 - 2.0 % [facility] Basophils/Leukocytes Auto (Bld) [Pure # fraction] 0.0 E9/L Normal 0.0 - 0.2 E9/L [facility] Eosinophils/100 WBC (Bld) 2.1 % Normal 0.0 - 8.0 % [facility] Eosinophils/Leukocytes Auto (Bld) [Pure # fraction] 0.2 E9/L Normal 0.0 - 0.5 E9/L [facility] Lymphocytes/100 WBC (Bld) 20.5 % Normal 14.0 - 50.0 % [facility] Lymphocytes/Leukocytes Auto (Bld) [Pure # fraction] 1.6 E9/L Normal 1.0 - 4.0 E9/L [facility] Monocytes/100 WBC (Bld) 8.7 % Normal 4.0 - 14.0 % [facility] Monocytes/Leukocytes Auto (Bld) [Pure # fraction] 0.7 E9/L Normal 0.2 - 1.0 E9/L [facility] Neutrophils/100 WBC (Bld) 68.4 % Normal 36.0 - 75.0 % [facility] Neutrophils/Leukocytes Auto (Bld) [Pure # fraction] 5.3 E9/L Normal 2.0 - 7.5 E9/L [facility] HEMATOLOGYOrdered By: Vaughn Chin on 03-19-2023 Erythrocyte distribution width (RBC) [Ratio] 16.3 % High 10.9 - 14.2 % [facility] Hematocrit (Bld) [Volume fraction] 43.7 % Normal 37.7 - 49.0 % [facility] Hemoglobin (Bld) [Mass/Vol] 14.4 g/dL Normal 13.5 - 17.5 gm/dL [facility] MCH (RBC) [Entitic mass] 27.9 pg Normal 27.0 - 34.0 pg [facility] MCHC (RBC) [Mass/Vol] 33.0 g/dL Normal 31.4 - 36.0 gm/dL [facility] MCV (RBC) [Entitic vol] 84.8 fL Normal 80.0 - 100.0 fL [facility] Platelet mean volume (Bld) [Entitic vol] 7.7 fL Normal 6.4 - 10.8 fL [facility] Platelets (Bld) [#/Vol] 278.0 E9/L Normal 150.0 - 500.0 E9/L [facility] RBC (Bld) [#/Vol] 5.2 E12/L Normal 4.3 - 5.9 E12/L [facility] WBC corrected for nucl RBC Auto (Bld) [#/Vol] 7.7 E9/L Normal 4.0 - 11.0 E9/L [facility] Lipid Panelon 03-19-2023 Cholesterol [Mass/Vol] 171 mg/dL Normal 120-200 [facility] Comment on above: Performed By: #### 2 [id number], [id number], [id number], [id number], [id number] ####[facility] [address] [place] [address] Cholesterol in HDL [Mass/Vol] 39 mg/dL Invalid Interpretation Code [facility] Comment on above: Result Comment: HDL > or equal to 60 mg/dL: Low cardiovascular risk HDL < 40 mg/dL : High cardiovascular risk Performed By: #### 2 [id number], [id number], [id number], [id number], [id number] ####[facility] [address] [place] [address] Cholesterol in LDL [Mass/Vol] 112 mg/dL Normal <=129 [facility] Comment on above: Performed By: #### 2 [id number], [id number], [id number], [id number], [id number] ####[facility] [address] [place] [address] Cholesterol in VLDL [Mass/Vol] 19 mg/dL Normal 7-40 [facility] Comment on above: Performed By: #### 2 [id number], [id number], [id number], [id number], [id number] ####[facility] [address] [place] [address] Triglyceride [Mass/Vol] 94 mg/dL Normal <=149 [facility] Comment on above: Performed By: #### 2 [id number], [id number], 1149924, [id number], [id number] ####[facility] [address] [place] [address] PSA Screen, Totalon 03-19-20 23 Prostate specific Ag [Mass/Vol] 0.9 ng/mL Normal 0.1-3.5 [facility] Comment on above: Result Comment: The concentration of PSA determined by different manufacturers can vary due to differences in assay methods and reagent specificity. Values obtained from different assay methods cannot be used interchangeably. The methodology used for this result was chemiluminescence using [place]'s Access [employer] PSA reagent. Performed By: #### 2 [id number], [id number], [id number], [id number], [id number] ####[facility] [address] [place] [address] TSHon 03-19-2023 TSH Qn 2.03 m[IU]/L Normal 0.34-5.60 [facility] Comment on above: Performed By: #### 2 [id number], [id number], 6852886, [id number], [id number] ####[facility] [address] [place] [address] [facility]11 SARS-CoV-2 (COVID-19) RNA BETHANY+probe Ql (Unsp spec) Not detected Normal NOT DETECTED [facility] Comment on above: Result Comment: When diagnostic testing is negative, the possibility of a false negative should be considered in the context of a patient's recent exposures and the presence of clinical signs and symptoms consistent with SARS-CoV-2. This test is not yet approved or cleared by the [place] FDA. When there are no FDA-approved or cleared tests available, and other criteria are met, FDA can make tests available under an emergency access mechanism called an Emergency Use Authorization (EUA). The EUA for this test is supported by the [place] of Health and Human Service's declaration that circumstances exist to justify the emergency use of in vitro diagnostics for the detection and/or diagnosis of the virus that causes COVID-19. This EUA will remain in effect for the duration of the COVID-19 declaration justifying emergency of IVDs, unless it is terminated or revoked by the FDA (after which the test may no longer be used). Performed By: #### C VDTBH #### [facility] [address] [address] [address] Mynor Yun GROUP A STREP CULTUREon 07-11 S. pyogenes Ag Ql (Unsp spec) Culture Observations: NEGATIVE FOR GROUP A STREPTOCOCCUS. Normal [facility] Comment on above: Performed By: #### G RASTCX #### [facility] [address] [place], [place] [address] Dr. Mynor Yun INFLUENZA A AND B AGon 07-11 INFLUANEGH SEE BELOW Normal [facility] Comment on above: Result Comment: Nega tive for Flu A protein angiten. Infection due to Flu A cannot be ruled out. Flu A angiten in the sample may be below the detection limit of the test. Performed By: #### I NFLUAB #### [facility] [address] [place] [address] Dr. Mynor Yun INFLUBNEGH SEE BELOW Normal [facility] Comment on above: Result Comment: Nega tive for Flu B protein antigen. Infection due to Flu B cannot be ruled out. Flu B antigen in the sample may be below the detection limit of the test. Performed By: #### I NFLUAB #### [facility] [address] [place] [address] Dr. Mynor Yun INFLUENZA A AG Negative Normal NEGATIVE SEE COMMENT [facility] Comment on above: Performed By: #### I NFLUAB #### [facility] [address] [place] [address] Dr. Mynor Yun INFLUENZA B AG Negative Normal NEGATIVE SEE COMMENT [facility] Comment on above: Performed By: #### I NFLUAB #### [facility] [address] [place] [address] Dr. Mynor Yun INTERNAL CONTROLS Within Normal Limits Normal Wi thin Normal Limits [facility] Comment on above: Performed By: #### I NFLUAB #### [facility] [address] [place] [address] Dr. Mynor Yun STREPT SCREENon 07-28-2022 STREP SCREEN A Negative Normal NEGATIVE [facility] Comment on above: Performed By: #### S SCRN #### [facility] [address] [place] [address] Dr. Mynor Yun XR SINUSES 3 VIEWS OR GREATE Tim 02-01-2022 XR SINUSES 3 VIEWS OR GREATER EXAMINATION: XR SINUSES 3 VIEWS OR GREATER HISTORY: Vertigo COMPARISON: No relevant comparison available. FINDINGS: MAXILLARY: No mucosal thickening or fluid level. ETHMOID: No mucosal thickening or fluid level. FRONTAL: No mucosal thickening or fluid level. SPHENOID: No mucosal thickening or fluid level. OTHER: Negative. IMPRESSION: Clear paranasal sinuses Electronically authenticated by: KELLIE SMALLS Date: 2022-02-01 09:58 Normal [facility] HAND LEFT 3 VWSon 12-29-2021 HAND LEFT 3 [facility] Department of Radiology [address] [place] [id number] Patient Name: RAKESH PIÑA : 1975 Sex: M Age: Race: White Pt. Location: Patient Status: D Ordered Date: 12/29/2021 11:45:00 AM Completed Date: 12/29/2021 11:50 AM Requesting Provider: LORI DALLAS Attending Provider: LORI DALLAS Report Copy To: Signs & Symptoms: M79.642 Pain in left hand I10 History: Comments: Evaluate Exam: HAND LEFT 3 [facility] HAND LEFT 3 [facility] 12/29/2021 11:50 AM CLINICAL INDICATIONS: M79.642 Pain in left hand I10 TECHNOLOGIST COMMENTS: evaluate healing, fracture left hand beginning of November 2021 QUESTION FOR THE RADIOLOGIST: Evaluate PROTOCOL: AP,Lateral and Oblique views were obtained. COMPARISON: December 08 Impression: 1. Stable appearance of fracture with some new callus formation but fracture remains visible.. No change in positioning or alignment. Electronically signed: Heather Montana. Transcribed by: [email or web address], User Resident: Electronically Signed by: HEATHER MONTANA @ 12/31/2021 08:55 AM Normal [facility] Comment on above: Order Comment: Evalu ate HAND LEFT 3 [facility] 12-08-2021 HAND LEFT 3 [facility] Department of Radiology [address] [place] [id number] Patient Name: RAKESH PIÑA : 1975 Sex: M Age: Race: White Pt. Location: 84 Patient Status: D Ordered Date: 12/08/2021 1:25:00 PM Completed Date: 12/08/2021 01:29 PM Requesting Provider: LORI DALLAS Attending Provider: LORI DALLAS Report Copy To: Signs & Symptoms: M79.642 Pain in left hand I10 History: [place] Comments: Evaluate Exam: HAND LEFT 3 V[facility] HAND LEFT 3 [facility] 12/08/2021 1:29 PM CLINICAL INDICATIONS: M79.642 Pain in left hand I10 TECHNOLOGIST COMMENTS: left 5th injury 11/10/21 QUESTION FOR THE RADIOLOGIST: Evaluate PROTOCOL: AP,Lateral and Oblique views were obtained. COMPARISON: November 14, 2021. FINDINGS: Acute angle fracture of the fifth metacarpal neck reidentified. The fracture line appears slightly less discrete and mild callus formation is noted without osseous bridging. There is persistent osseous swelling. IMPRESSION: Redemonstration of the mildly angled boxer fracture of the fifth metacarpal with some callus but no osseous bridging. Electronically signed: Ronaldo Major. Transcribed by: [email or web address], User Resident: Electronically Signed by: RONALDO MAJOR @ 12/09/2021 04:04 PM Normal [facility] Comment on above: Order Comment: Evalu ate HAND LEFT 3 VWSon 11-14-2021 HAND LEFT 3 VWS [facility] Department of Radiology [address] [place] [address] Patient Name: RAKESH PIÑA : 1975 Sex: M Age: Race: White Pt. Location: Patient Status: O Ordered Date: 11/14/2021 1:50:00 PM Completed Date: 11/14/2021 01:58 PM Requesting Provider: CAPRICE CHAMBERS Attending Provider: CAPRICE CHAMBERS Report Copy To: Signs & Symptoms: S62.306A Unsp fracture of fifth metacarpal bone, left hand, init I10 History: Comments: Views (X-RAY, HAND): PA, Lateral, Oblique Exam: HAND LEFT 3 S HAND LEFT 3 S 11/14/2021 1:58 PM CLINICAL INDICATIONS: S62.306A Unsp fracture of fifth metacarpal bone, left hand, init I10 TECHNOLOGIST COMMENTS: left 5th fx last week work injury QUESTION FOR THE RADIOLOGIST: Views (X-RAY, HAND): PA, Lateral, Oblique PROTOCOL: AP,Lateral and Oblique views were obtained. COMPARISON: None FINDINGS: 3 views of the hand were obtained. There is a fracture of the fifth metacarpal distally with apex dorsal angulation. No other fracture is evident. Bone density appears within normal limits. Articular surfaces are intact. IMPRESSION: Fifth metacarpal boxers type fracture. Electronically signed: Ramirez Smith. Transcribed by: [email or web address], User Resident: Electronically Signed by: RAMIREZ SMITH @ 11/14/2021 08:02 PM Normal [facility] Comment on above: Order Comment: Views (X-RAY, HAND): PA, Lateral, Oblique TESTOSTERONE, TOTALon 2021 Testosterone [Mass/Vol] 411 ng/dL Normal 264-916 [facility] Comment on above: Result Comment: Adul t male reference interval is based on a population of healthy nonobese males (BMI <30) between 19 and 39 years old. Iron et.al. JCEM 2017,102;8563-7675. PMID: [id number]. Performed By: #### T ESTTOT #### [facility] [address] [place] [address] Dr. Mynor Yun CBC AUTO DIFFon 11-11-2021 BASO # 0.0 103/ul Normal 0.0-0.1 [facility] Comment on above: Performed By: #### C BC #### [facility] [address] [place] [address] Dr. Mynor Yun Basophils/100 WBC (Bld) 0.2 % Normal 0.2-2.0 [facility] Comment on above: Performed By: #### C BC #### [facility] [address] [place] [address] Dr. Mynor Yun EO # 0.1 103/ul Normal 0.0-0.7 [facility] Comment on above: Performed By: #### C BC #### [facility] [address] [place] [address] Dr. Mynor Yun Eosinophils/100 WBC (Bld) 1.2 % Normal 0.9-7.0 [facility] Comment on above: Performed By: #### C BC #### [facility] [address] [place] [address] Dr. Mynor Yun Erythrocyte distribution width (RBC) [Ratio] 14.3 % Normal 11.0-15.0 [facility] Comment on above: Performed By: #### C BC #### [facility] [address] [place] [address] Dr. Mynor Yun Hematocrit (Bld) [Volume fraction] 47.3 % Normal 42.0-54.0 [facility] Comment on above: Performed By: #### C BC #### [facility] [address] [place] [address] Dr. Mynor Yun Hemoglobin (Bld) [Mass/Vol] 15.2 g/dL Normal 14.0-18.0 [facility] Comment on above: Performed By: #### C BC #### [facility] [address] [place] [address] Dr. Mynor Yun IG # 0.03 10e3/ul Normal 0.00-0.03 [facility] Comment on above: Performed By: #### C BC #### [facility] [address] [place] [address] Dr. Mynor Yun IG % 0.3 % Normal 0.0-0.5 [facility] Comment on above: Performed By: #### C BC #### [facility] [address] [place] [address] Dr. Mynor Yun LYMPH # 1.6 103/ul Normal 1.2-3.8 [facility] Comment on above: Performed By: #### C BC #### [facility] [address] [place] [address] Dr. Mynor Yun Lymphocytes/100 WBC (Bld) 18.4 % Critically low 20.5-60.0 [facility] Comment on above: Performed By: #### C BC #### [facility] [address] [place] [address] Dr. Mynor Yun MANUAL DIFF REQ NO Normal [facility] Comment on above: Performed By: #### C BC #### [facility] [address] [place] [address] Dr. Mynor Yun MCH (RBC) [Entitic mass] 28.8 pg Normal 25.9-34.0 [facility] Comment on above: Performed By: #### C BC #### [facility] [address] [place] [address] Dr. Mynor Yun MCHC (RBC) [Mass/Vol] 32.1 g/dL Normal 29.9-35.2 [facility] Comment on above: Performed By: #### C BC #### [facility] [address] [place] [address] Dr. Mynor Yun MCV (RBC) [Entitic vol] 89.8 fL Normal 80.0-94.0 [facility] Comment on above: Performed By: #### C BC #### [facility] [address] [place] [address] Dr. Mynor Yun MONO # 0.7 103/ul Normal 0.3-0.8 [facility] Comment on above: Performed By: #### C BC #### [facility] [address] [place] [address] Dr. Mynor Yun Monocytes/100 WBC (Bld) 8.4 % Normal 1.7-12.0 [facility] Comment on above: Performed By: #### C BC #### [facility] [address] [place] [address] Dr. Mynor Yun NEUT # 6.2 103/ul Normal 1.4-6.5 [facility] Comment on above: Performed By: #### C BC #### [facility] [address] [place] [address] Dr. Mynor Yun Neutrophils/100 WBC (Bld) 71.5 % Normal 43.0-75.0 [facility] Comment on above: Performed By: #### C BC #### [facility] [address] [place] [address] Dr. Mynor Yun Platelet mean volume (Bld) [Entitic vol] 8.7 fL Critically low 9.5-13.5 [facility] Comment on above: Performed By: #### C BC #### [facility] [address] [place] [address] Dr. Mynor Yun PLT 263 103/ul Normal 150-450 [facility] Comment on above: Performed By: #### C BC #### [facility] [address] [place] [address] Dr. Mynor Yun RBC 5.27 106/ul Normal 4.70-6.10 [facility] Comment on above: Performed By: #### C BC #### [facility] [address] [address] [address] Mynor Yun WBC 8.7 103/ul Normal 4.0-11.0 [facility] Comment on above: Performed By: #### C BC #### [facility] [address] [address] [address] Mynor Yun LIPID PROFILEon 11-11-2021 CHOL-HDL RATIO NORM SEE BELOW Normal [facility] Comment on above: Result Comment: 3.3 - 4.4 LOW RISK 4.4 - 7.1 AVERAGE RISK 7.1 - 11.0 MODERATE RISK >11.0 HIGH RISK Performed By: #### S SCRN #### [facility] [address] [place] [address] Dr. Mynor Yun Cholesterol [Mass/Vol] 129 mg/dL Normal <=200 [facility] Comment on above: Performed By: #### S SCRN #### [facility] [address] [place] [address] Dr. Mynor Yun Cholesterol in HDL [Mass/Vol] 34 mg/dL Normal [facility] Comment on above: Performed By: #### S SCRN #### [facility] [address] [address] [address] Mynor Yun Cholesterol in LDL [Mass/Vol] 82.2 mg/dL Normal [facility] Comment on above: Performed By: #### S SCRN #### [facility] [address] [address] [address] Mynor Yun Cholesterol.total/Chol esterol in HDL [Mass ratio] 3.8 {ratio} Normal [facility] Comment on above: Performed By: #### S SCRN #### [facility] [address] [place] [address] Dr. Mynor Yun HDL NORMAL > or = 60 mg/dl - LO W CARDIOVASCULAR RISK <40 mg/dl - HIGH CARDIOVASCULAR RISK Normal [facility] Comment on above: Performed By: #### S SCRN #### [facility] [address] [place] [address] Dr. Mynor Yun LDL CALC NORMAL SEE BELOW Normal [facility] Comment on above: Result Comment: <100 mg/dl OPTIMAL 100 - 129 mg/dl NEAR OR ABOVE OPTIMAL 130 - 159 mg/dl BORDERLINE HIGH 160 - 189 mg/dl HIGH >190 mg/dl VERY HIGH Performed By: #### S SCRN #### [facility] [address] [address] [address] Mynor Yun Triglyceride [Mass/Vol] 64 mg/dL Normal <=150 [facility] Comment on above: Performed By: #### S SCRN #### [facility] [address] [address] [address] Mynor Yun VLDL CALC 12.8 mg/dL Normal [facility] Comment on above: Performed By: #### S SCRN #### [facility] [address] [address] [address] Mynor Yun PROF 14(COMP METB)on 022 Albumin [Mass/Vol] 3.8 g/dL Normal 3.5-5.0 [facility] Comment on above: Performed By: #### T SH, LIPID, CMP #### [facility] [address] [address] [address] Mynor Yun Albumin/Globulin [Mass ratio] 0.9 {ratio} Normal [facility] Comment on above: Performed By: #### T SH, LIPID, CMP #### [facility] [address] [address] [address] Mynor Yun ALP [Catalytic activity/Vol] 76 U/L Normal 38-126 [facility] Comment on above: Performed By: #### T SH, LIPID, CMP #### [facility] [address] [address] [address] Mynor Yun ALT [Catalytic activity/Vol] 49 U/L Normal 21-72 [facility] Comment on above: Performed By: #### T SH, LIPID, CMP #### [facility] [address] [address] [address] Mynor Yun Anion gap [Moles/Vol] 11.2 mmol/L Normal [facility] Comment on above: Performed By: #### T SH, LIPID, CMP #### [facility] [address] [address] [address] Mynor Yun AST [Catalytic activity/Vol] 31 U/L Normal 17-59 [facility] Comment on above: Performed By: #### T SH, LIPID, CMP #### [facility] [address] [place] [address] Dr. Mynor Yun Bilirubin [Mass/Vol] 0.5 mg/dL Normal 0.2-1.3 [facility] Comment on above: Performed By: #### T SH, LIPID, CMP #### [facility] [address] [place] [address] Dr. Mynor Yun Calcium [Mass/Vol] 9.0 mg/dL Normal 8.4-10.2 [facility] Comment on above: Performed By: #### T SH, LIPID, CMP #### [facility] [address] [place] [address] Dr. Mynor Yun Chloride [Moles/Vol] 104 mmol/L Normal 98-107 [facility] Comment on above: Performed By: #### T SH, LIPID, CMP #### [facility] [address] [address] [address] Mynor Yun CO2 [Moles/Vol] 30.6 mmol/L Critically high 22.0-30.0 [facility] Comment on above: Performed By: #### T SH, LIPID, CMP #### [facility] [address] [place] [address] Dr. Mynor Yun Creatinine [Mass/Vol] 0.95 mg/dL Normal 0.66-1.25 [facility] Comment on above: Performed By: #### T SH, LIPID, CMP #### [facility] [address] [place] [address] Dr. Mynor Yun EGFR-AF TAJIK >60 Normal >=60 [facility] Comment on above: Performed By: #### T SH, LIPID, CMP #### [facility] [address] [place] [address] Dr. Mynor Yun EGFR-NON AF TAJIK >60 Normal >=60 [facility] Comment on above: Performed By: #### T SH, LIPID, CMP #### [facility] [address] [address] [address] Mynor Yun Globulin (S) [Mass/Vol] 4.3 g/dL Normal [facility] Comment on above: Performed By: #### T SH, LIPID, CMP #### [facility] [address] [place] [address] Dr. Mynor Yun Glucose [Mass/Vol] 104 mg/dL Normal 74-106 [facility] Comment on above: Performed By: #### T SH, LIPID, CMP #### [facility] [address] [place] [address] Dr. Mynor Yun Potassium [Moles/Vol] 3.8 mmol/L Normal 3.4-5.0 [facility] Comment on above: Performed By: #### T SAMARIA, LIPID, CMP #### [facility] [address] [place] [address] Dr. Mynor Yun Protein [Mass/Vol] 8.1 g/dL Normal 6.1-8.2 [facility] Comment on above: Performed By: #### T SH, LIPID, CMP #### [facility] [address] [place] [address] Dr. Mynor Yun Sodium [Moles/Vol] 142 mmol/L Normal 137-145 [facility] Comment on above: Performed By: #### T SH, LIPID, CMP #### [facility] [address] [place] [address] Dr. Mynor Yun Urea nitrogen [Mass/Vol] 11.0 mg/dL Normal 9.0-20.0 [facility] Comment on above: Performed By: #### T SH, LIPID, CMP #### [facility] [address] [place] [address] Dr. Mynor Yun Urea nitrogen/Creatinine [Mass ratio] 11.6 mg/mg Normal [facility] Comment on above: Performed By: #### T SH, LIPID, CMP #### [facility] [address] [place] [address] Dr. Mynor Yun TSHon 11-11-2021 TSH 1.612 uIU/mL Normal 0.470-4.[address] [facility] Comment on above: Performed By: #### T SH, LIPID, CMP #### [facility] [address] [place], [place] [address] Dr. Mynor Yun TSH RANGE SEE BELOW Normal [facility] Comment on above: Result Comment: <0.3 4 UIU/ml HYPERTHYROID 0.34-5.60 UIU/ml EUTHYROID >5.60 UIU/ml HYPOTHYROID Performed By: #### T SH, LIPID, CMP #### [facility] [address] [address] [address] Mynor Yun Encounters Encounter Date Encounter Type Care Provider Facility Start: 08-23-2023 End: 08-24-2023 ambulatory Alexia L Laurent Facility:[facility] Start: 07-26-2023 End: 07-27-2023 ambulatory Alexia L Laurent Facility:[facility]ue Start: 06-21-2023 End: 06-22-2023 ambulatory Alexia L Laurent Facility:[facility] Start: 05-22-2023 End: 05-23-2023 ambulatory Alexia L Laurent Facility:[facility] Start: 04-24-2023 End: 04-25-2023 ambulatory Alexia L Laurent Facility:[facility] Start: 03-19-2023 End: 03-20-2023 ambulatory Alexia L Laurent Facility:[facility] Start: 03-19-2023 End: 03-20-2023 ambulatory Alexia L Laurent Facility:[facility] Start: 03-19-2023 End: 03-19-2023 Lab Drop off Alexia L Laurent [facility] Start: 03-15-2023 ambulatory Alexia Laurent Facility:[facility] [place] Start: 07-28-2022 End: 07-28-[address] LULU BLANK Facility:[facility] Start: 02-01-2022 End: 02-02-[address] LULU BLANK Facility:[facility] Start: 03-08-2022 Encounter for genera l adult medical examination without abnormal findings DR LULU BLANK [facility] Start: 11-11-2021 End: 11-12-[address] LULU BLANK Facility:[facility] Start: 11-11-2021 End: 11-12-2021 Encounter for general adult medical examination without abnormal findings DR LULU BLANK Facility:[facility] Start: 11-10-2021 End: 11-11-2021 ambulatory MAZIN CANO Facility:[facility] Procedures Date Procedure Procedure Detail Performing Clinician Gastric sleeve Alexia Laurent Comment on above: 2007 Immunizations Immunization Date Immunization Notes Care Provider Fa [facility] 06-07-2022 influenza virus vacc ine, unspecified formulation Alexia Laurent [facility] 11-12-2020 SARS-CoV-2 (COVID-19 ) mRNA BNT-162b2 vax Alexia Laurent [facility] 10-22-2020 SARS-CoV-2 (COVID-19 ) mRNA BNT-162b2 vax Alexia Laurent [facility] 03-10-2019 pneumococcal polysaccharide vaccine, 23 valent Alexia Laurent [facility] Payers Date Payer Category Payer Unknown [id number] 2019 Unknown [id number] 1977 Unknown [id number] 2.16.84 [id number] 1977 Unknown [id number] 2.16.84 [id number] 1977 Unknown [id number] 2.16.84 [id number] 1977 Unknown [id number] 2.16.84 0.1.578073.3.579.2.593 1977 Unknown [id number] 2.16.8 40.1.447542.3.579.2.727 1977 Unknown [id number] 2.16.8 40.1.775321.3.579.2.727 1977 Unknown [id number] 2.16.8 40.1.810482.3.579.2.7 1977 Unknown [id number] 2.16.8 40.1.251527.3.579.2.72 1977 Unknown [id number] 2.16.8 40.1.292084.3.579.2. 1977 Unknown [id number] 2.16.8 40.1.552841.3.579.2.72 1977 Unknown [id number] 2.16.8 40.1.685246.3.579.2. 1977 Unknown [id number] 2.16.8 [id number] 1957 Medicare [id number] 1957 Unknown [id number] Social History Date Type Detail Facility Start: 03-19-2023 Tobacco smoking status Ex-smoker (fi nding) [facility] Tobacco smoking status Never [facility] Sex Assigned At Male [facility] Clinical Note 11-10-2021 Note Date & Type Note Facility 11-10-2021 Note PROCEDURE: XR HAND L T MIN 3V COMPARISON: None. HISTORY: Contusion of finger of left hand FINDINGS: BONES:Acute extra-articular fracture involving the head of the fifth metacarpal with dorsal displacement of the proximal fracture fragment in relation to the distal fracture fragment 2.5 mm. No significant distraction. No dislocation. SOFT TISSUES:Moderate lateral and soft tissue swelling. No radiopaque foreign body EFFUSION:None visible. OTHER: Call results initiated through operations IMPRESSION: Acute mildly displaced extra-articular fracture head of the fifth metacarpal Electronically authenticated by: KELLIE SMALLS Date: 2021-11-10 13:16 [facility] Evaluation + Plan note Note Date & Type Note Facility Evaluation + Plan note Future Appointments Appointment Date:04/23/2023 11:00:00 AM Scheduled Provider:Alexia Muhammad Location:[facility] Appointment Type: Open [facility] Hospital course Narrative Note Date & Type Note Facility Hospital course Narrative No data available for this section [facility] Hospital Discharge instructions Note Date & Type Note Facility Hospital Discharge instructions No data available for this section [facility] Progress note Note Date & Type Note Facility Progress note No data available for this section [facility] Summary Purpose Family History No Family History Records FoundNo Family History Records FoundNo Family History Records Found Advance Directives No Advanced Directives Records FoundNo Advanced Directives Records FoundNo Advanced Directives Records Found Additional Source Comments (unrecognized sect ion and content) No Status Records FoundNo Status Records FoundNo Status Records Found INFORMATION SOURCE (unrecogn ized section and content) DATE CREATED AUTHOR 01/28/2022 [facility] DATE CREATED AUTHOR AUTHOR'S ORGANIZ ATION 08/10/2022 [facility] DATE CREATED AUTHOR AUTHOR'S ORGANIZ ATION 09/08/2023 [facility] Patient Care team informatio n (unrecognized section and content) Personnel Name: Alexia Muhammad Address: Address: [address] [place] [address]- FOR RECORDS PERTAINING TO PATIENTS WHO ARE OR HAVE BEEN ENROLLED IN A CHEMICAL DEPENDENCY/SUBSTANCEABUSE PROGRAM, SOME INFORMATION MAY BE OMITTED. This clinical summary was aggregated from multiple sources. Caution should be exercised in using it in the provision of clinical care. This summary normalizes information from multiple sources, and as a consequence, information in this document may materially change the coding, format and clinical context of patient data. In addition, data may be omitted in some cases. CLINICAL DECISIONS SHOULD BE BASED ON THE PRIMARY CLINICAL RECORDS. [facility]. provides no warranty or guarantee of the accuracy or completeness of information in this document.
--- OUTSIDE RECORDS SUMMARY | 2023-10-29 08:22 | XMS_ITS | CCD ---
Author Name Unknown Address [address] [facility] [address] [place] [address] Organization [facility] Care Team Providers Care Warper Fixer Name Role Phone MAZIN CANO Admitting Unavailable [...] day(s), # 21 tab(s), Refills(s) 0, Pharmacy: [facility]/pharmacy #[id number], 176.5, cm, 03/19/23 13:15:00 EDT, [...] day(s), # 30 tab(s), Refills(s) 0, Pharmacy: [facility]/pharmacy #6177, 176.5, cm, 03/19/23 13:15:00 EDT, [...] 09-06-2023 Plan of Care - PT/OT/Speech [id number]#1 .00[address] [facility] Physician Referralon 023 Physician Referral [id number]# 1.00TIFF Normal [facility] Testost Totalon 08-25-2023 Testosterone [Mass/Vol] 321 ng/dL Invalid Interpretation Code [id number] [facility] Comment on above: Result Comment: Adul t male reference interval is based on a population of healthy nonobese males (BMI <30) between 19 and 39 years old. precious Perdue.al. JCEM 2017,102;5136-1208. PMID: [id number]. Performed at: [facility] [id number] PhD Domenic Rider Performed By: #### 2 [id number], [id number], [id number] ####[facility] [address] [place] [address] Reminderson 08-24-2023 Reminders - From: Alexia Muhammad [...] left detailed message for patient below Normal [facility] Family Medicine Office/Clini c Noteon 08-23-2023 [...] thing was in slow motion. 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 He would [...] he would like referral to PT at [place] for bakc/leg pain. gabapentin and muscles relaxers did not help. 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 all questions answered. RTC as needed Ordered: cyclobenzaprine, 10 mg = 1 tab(s), Oral, Bedtime, PRN for spasm, # 30 tab(s), Refills(s) 0, Pharmacy: [facility], 176.5, cm, 07/26/23 9:32:00 EST, Height/Length Dosing, 187.2, kg, 07/26/23 9:32:00 EST, Weight Dosing gabapentin, 300 mg = 1 cap(s), Oral, Daily, # 30 cap(s), Refills(s) 0, Pharmacy: [facility], 176.5, cm, 07/26/23 9:32:00 EST, Height/Length Dosing, 187.2, kg, 07/26/23 9:32:00 EST, Weight Dosing 2. Fatigue (R53.83: Other fatigue) labs drawn today Ordered: Lab Specimen Collect [id number] Testosterone Level Total 3. Hypogonadism male (E29.1: Testicular hypofunction) testosterone ordered Ordered: Lab Specimen Collect [id number] Testosterone Level Total 4. BMI 60.0-69.9, adult (Z68.44: Body mass index [BMI] 60.0-69.9, adult) bmi education complete Ordered: cyclobenzaprine, 10 mg = 1 tab(s), Oral, Bedtime, PRN for spasm, # 30 tab(s), Refills(s) 0, Pharmacy: [facility], 176.5, cm, 07/26/23 9:32:00 EST, Height/Length Dosing, 187.2, kg, 07/26/23 9:32:00 EST, Weight Dosing gabapentin, 300 mg = 1 cap(s), Oral, Daily, # 30 cap(s), Refills(s) 0, Pharmacy: [facility], 176.5, cm, 07/26/23 9:32:00 EST, Height/Length Dosing, 187.2, kg, 07/26/23 9:32:00 EST, Weight Dosing Testosterone Level Total Vitamin B12 Level Vitamin D 25 Hydroxy Follow-up No qualifying data available Patient Education Obesity, Adult, Ghhw-hb-Ylyi Problem List/Past Medical History Ongoing Encounter for [...] ago Tob (more content not included)... Normal [facility] Comment on above: Result Comment: Elec [...] food choices, such as grocery stores and fruux. What are the signs or symptoms? The [...] How much exercise you get. ? Take piyo-czf-fyfnanh and prescription medicines only as told by [...] with yo (more content not included)... Normal [facility] Vit B12on 08-23-2023 Cobalamin (Vitamin B12) [Mass/Vol] 301 pg/mL Normal 50-[address] [facility] Comment on above: Performed By: #### 2 464200, [id number], [id number] ####[facility] [address] [place] [address] Vitamin D 25 Hydroxyon 08-23 Vitamin D 25 Hydroxy 57.7 ng/mL Normal 30.0-100.0 [facility] Comment on above: Performed By: #### 2 924640, [id number], [id number] ####[facility] [address] [place] [address] Ambulatory Visit Summaryon 1 09-25-2022 Ambulatory Visit [...] 9:20 AM EST With: Alexia Muhammad Where: [facility] Shanique Normal [facility] Family Medicine Office/Clini c Noteon 07-26-2023 [...] spasm, # 30 tab(s), Refills(s) 0, Pharmacy: [facility], 176.5, cm, 07/26/23 9:32:00 EST, Height/Length Dosing, 187.2, kg, 07/26/23 9:32:00 EST, Weight Dosing gabapentin, 300 mg = 1 cap(s), Oral, Daily, # 30 cap(s), Refills(s) 0, Pharmacy: [facility], 176.5, cm, 07/26/23 9:32:00 EST, Height/Length Dosing, 187.2, kg, 07/26/23 9:32:00 EST, Weight Dosing methylPREDNISolone, = 1 packet(s), Oral, As Directed, as directed on package labeling, X 6 day(s), # 21 tab(s), Refills(s) 0, Pharmacy: [facility], 176.5, cm, 07/26/23 9:32:00 EST, [...] spasm, # 30 tab(s), Refills(s) 0, Pharmacy: [facility], 176.5, cm, 07/26/23 9:32:00 EST, Height/Length Dosing, 187.2, kg, 07/26/23 9:32:00 EST, Weight Dosing gabapentin, 300 mg = 1 cap(s), Oral, Daily, # 30 cap(s), Refills(s) 0, Pharmacy: [facility], 176.5, cm, 07/26/23 9:32:00 EST, Height/Length Dosing, 187.2, kg, 07/26/23 9:32:00 EST, Weight Dosing methylPREDNISolone, = 1 packet(s), Oral, As Directed, as directed on package labeling, X 6 day(s), # 21 tab(s), Refills(s) 0, Pharmacy: [facility], 176.5, cm, 07/26/23 9:32:00 EST, Height/Length Dosing, 187.2, kg, 07/26/23 9:32:00 EST, Weight Dosing 3. Numbness and tingling of foot (R20.0: Anesthesia of skin) discussed ENG results Ordered: cyclobenzaprine, 10 mg = 1 tab(s), Oral, Bedtime, PRN for spasm, # 30 tab(s), Refills(s) 0, Pharmacy: [facility], 176.5, cm, 07/26/23 9:32:00 EST, Height/Length Dosing, 187.2, kg, 07/26/23 9:32:00 EST, Weight Dosing gabapentin, 300 mg = 1 cap(s), Oral, Daily, # 30 cap(s), Refills(s) 0, Pharmacy: [facility], 176.5, cm, 07/26/23 9:32:00 EST, Height/Length Dosing, 187.2, kg, 07/26/23 9:32:00 EST, Weight Dosing methylPREDNISolone, = 1 packet(s), Oral, As Directed, as directed on package labeling, X 6 day(s), # 21 tab(s), Refills(s) 0, Pharmacy: [facility], 176.5, cm, 07/26/23 9:32:00 EST, Height/Length Dosing, 187.2, kg, 07/26/23 9:32:00 EST, Weight Dosing 4. Class 3 obesity (E66.01: Morbid (severe) obesity due to excess calories) pt continues with diet Ordered: cyclobenzaprine, 10 mg = 1 tab(s), Oral, Bedtime, PRN for spasm, # 30 tab(s), Refills(s) 0, Pharmacy: [facility], 176.5, cm, 07/26/23 9:32:00 EST, Height/Length Dosing, 187.2, kg, 07/26/23 9:32:00 EST, Weight Dosing gabapentin, 300 mg = 1 cap(s), Oral, Daily, # 30 cap(s), Refills(s) 0, Pharmacy: [facility], 176.5, cm, 07/26/23 9:32:00 EST, Height/Length Dosing, 187.2, kg, 07/26/23 9:32:00 EST, Weight Dosing methylPREDNISolone, = 1 packet(s), Oral, As Directed, as directed on package labeling, X 6 day(s), # 21 tab(s), Refills(s) 0, Pharmacy: [facility], (more content not included)... Normal [facility] Comment on above: Result Comment: Elec tronically Signed By: Alexia Muhammad.br\Date and Time Signed: 07/26/23 09:54 EST EMG Electromyographyon 07-10 EMG Electromyography [id number]#1 .00TI[address] [facility] EMG Electromyography [id number]#1. 00TIFF Normal [facility] Physician Referralon 023 Physician Referral [id number]# 1.00TIFF [facility] Ambulatory Visit Summaryon 1 Ambulatory Visit [...] 9:20 AM EST With: Alexia Muhammad Where: [facility] Medicine [facility] Family Medicine Office/Clini c Noteon 06-21-2023 Family [...] day(s), # 30 tab(s), Refills(s) 1, Pharmacy: [facility], 176.5, cm, 06/21/23 9:41:00 EDT, Height/Length Dosing, 186.7, kg, 06/21/23 9:41:00 EDT, Weight Dosing meloxicam, 15 mg = 1 tab(s), Oral, Daily, X 30 day(s), # 30 tab(s), Refills(s) 0, Pharmacy: [facility], 176.5, cm, 06/21/23 9:41:00 EDT, Height/Length Dosing, 186.7, kg, 06/21/23 9:41:00 EDT, Weight Dosing meloxicam, 15 mg = 1 tab(s), Oral, Daily, # 30 tab(s), Refills(s) 1, Pharmacy: [facility], 176.5, cm, 05/22/23 9:51:00 EDT, Height/Length Dosing, 190.2, kg, 05/22/23 9:51:00 EDT, Weight Dosing 2. Left sciatic nerve pain (M54.32: Sciatica, left side) pt continues to have left sciatic nerve pain but it is improved Ordered: meloxicam, 15 mg = 1 tab(s), Oral, Daily, X 30 day(s), # 30 tab(s), Refills(s) 1, Pharmacy: [facility], 176.5, cm, 06/21/23 9:41:00 EDT, Height/Length Dosing, 186.7, kg, 06/21/23 9:41:00 EDT, Weight Dosing meloxicam, 15 mg = 1 tab(s), Oral, Daily, X 30 day(s), # 30 tab(s), Refills(s) 0, Pharmacy: [facility], 176.5, cm, 06/21/23 9:41:00 EDT, Height/Length Dosing, 186.7, kg, 06/21/23 9:41:00 EDT, Weight Dosing meloxicam, 15 mg = 1 tab(s), Oral, Daily, # 30 tab(s), Refills(s) 1, Pharmacy: [facility], 176.5, cm, 05/22/23 9:51:00 EDT, Height/Length Dosing, 190.2, kg, 05/22/23 9:51:00 EDT, Weight Dosing phentermine, 37.5 mg = 1 tab(s), Oral, Daily, X 30 day(s), # 30 tab(s), Refills(s) 0, Pharmacy: [facility], 176.5, cm, 05/22/23 9:51:00 EDT, Height/Length Dosing, 190.2, kg, 05/22/23 9:51:00 EDT, Weight Dosing [facility] [place] 3. Lower extremity numbness (R20.0: Anesthesia of skin) EMG order sent to [facility] in [place] Ordered[place] [facility] [place] Ref[place] 4. Morbid obesity due to excess calories (E66.01: Morbid (severe) obesity due to excess calories) BMI education complete Ordered: meloxicam, 15 mg = 1 tab(s), Oral, Daily, X 30 day(s), # 30 tab(s), Refills(s) 1, Pharmacy: [facility], 176.5, cm, 06/21/23 9:41:00 EDT, Height/Length Dosing, 186.7, kg, 06/21/23 9:41:00 EDT, Weight Dosing meloxicam, 15 mg = 1 tab(s), Oral, Daily, X 30 day(s), # 30 tab(s), Refills(s) 0, Pharmacy: [facility], 176.5, cm, 06/21/23 9:41:00 EDT, Height/Length Dosing, 186.7, kg, 06/21/23 9:41:00 EDT, Weight Dosing meloxicam, 15 mg = 1 tab(s), Oral, Daily, # 30 tab(s), Refills(s) 1, Pharmacy: [facility], 176.5, cm, 05/22/23 9:51:00 EDT, Height/Length Dosing, 190.2, kg, 05/22/23 9:51:00 EDT, Weight Dosing phentermine, 37.5 mg = 1 tab(s), Oral, Daily, X 30 day(s), # 30 tab(s), Refills(s) 0, Pharmacy: [facility], 176.5, cm, 05/22/23 9:51:00 EDT, Height/Length Dosing, 190.2, kg, 05/22/23 9:51:00 EDT, Weight Dosing 5. BMI 50.0-59.9, adult (Z68.43: Body mass index [BMI] 50.0-59.9, adult) BMI education complete 6. Non-smoker (Z78.9: Other specified health status) continue not smoking Ordered: meloxicam, 15 mg = 1 tab(s), Oral, Daily, X 30 day(s), # 30 tab(s), Refills(s) 1, Pharmacy: [facility], 176.5, cm, 06/21/23 9:41:00 EDT, Height/Length Dosing, 186.7, kg, 06/21/23 9:41:00 EDT, Weight Dosing meloxicam, 15 mg = 1 tab(s), Or (more content not included)... [facility] Comment on above: Result Comment: Elec [...] 9:20 AM EDT With: Alexia Muhammad Where: [facility] Ambulatory Visit Summary RAKESH PIÑA :1975 [...] 9:20 AM EDT With: Alexia Muhammad Where: [facility] [place] Normal [facility] Office/Clini c Noteon 05-22-2023 [facility] Office/Clinic Note HPI Staff Rakesh is a [...] in his legs at night. pt will picker tender some OTC potassium to see if that helps. all questions answered. RTC 4 weeks Ordered: meloxicam, 15 mg = 1 tab(s), Oral, Daily, # 30 tab(s), Refills(s) 1, Pharmacy: [facility], 176.5, cm, 05/22/23 9:51:00 EDT, Height/Length Dosing, 190.2, kg, 05/22/23 9:51:00 EDT, Weight Dosing 2. Left sciatic nerve pain (M54.32: Sciatica, left side) will order antiinflammatory. steroid did not give him any relief Ordered: meloxicam, 15 mg = 1 tab(s), Oral, Daily, # 30 tab(s), Refills(s) 1, Pharmacy: [facility], 176.5, cm, 05/22/23 9:51:00 EDT, Height/Length Dosing, 190.2, kg, 05/22/23 9:51:00 EDT, Weight Dosing phentermine, 37.5 mg = 1 tab(s), Oral, Daily, X 30 day(s), # 30 tab(s), Refills(s) 0 phentermine, 37.5 mg = 1 tab(s), Oral, Daily, X 30 day(s), # 30 tab(s), Refills(s) 0, Pharmacy: [facility], 176.5, cm, 05/22/23 9:51:00 EDT, Height/Length Dosing, 190.2, kg, 05/22/23 9:51:00 EDT, Weight Dosing 3. BMI 60.0-69.9, adult (Z68.44: Body mass index [BMI] 60.0-69.9, adult) BMI education complete Ordered: meloxicam, 15 mg = 1 tab(s), Oral, Daily, # 30 tab(s), Refills(s) 1, Pharmacy: [facility], 176.5, cm, 05/22/23 9:51:00 EDT, Height/Length Dosing, 190.2, kg, 05/22/23 9:51:00 EDT, Weight Dosing 4. Morbid obesity due to excess calories (E66.01: Morbid (severe) obesity due to excess calories) see above Ordered: meloxicam, 15 mg = 1 tab(s), Oral, Daily, # 30 tab(s), Refills(s) 1, Pharmacy: [facility], 176.5, cm, 05/22/23 9:51:00 EDT, Height/Length Dosing, 190.2, kg, 05/22/23 9:51:00 EDT, Weight Dosing phentermine, 37.5 mg = 1 tab(s), Oral, Daily, X 30 day(s), # 30 tab(s), Refills(s) 0 phentermine, 37.5 mg = 1 tab(s), Oral, Daily, X 30 day(s), # 30 tab(s), Refills(s) 0, Pharmacy: [facility], 176.5, cm, 05/22/23 9:51:00 EDT, Height/Length Dosing, 190.2, kg, 05/22/23 9:51:00 EDT, Weight Dosing 5. Non-smoker (Z78.9: Other specified health status) continue not smoking Ordered: meloxicam, 15 mg = 1 tab(s), Oral, Daily, # 30 tab(s), Refills(s) 1, Pharmacy: [facility], 176.5, cm, 05/22/23 9:51:00 EDT, Height/Length Dosing, 190.2, kg, 05/22/23 9:51:00 EDT, Weight Dosing phentermine, 37.5 mg = 1 tab(s), Oral, Daily, X 30 day(s), # 30 tab(s), Refills(s) 0 phentermine, 37.5 mg = 1 tab(s), Oral, Daily, X 30 day(s), # 30 tab(s), Refills(s) 0, Pharmacy: [facility], 176.5, cm, 05/22/23 9:51:00 EDT, Height/Length [...] Daily Allerg (more content not included)... Normal [facility] Comment on above: Result Comment: Elec tronically Signed By: Alexia Muhammad\.br\Date and Time Signed: 05/22/23 10:34 EDT [place]enton 04-26-2023 Consent [id number] .00CD:[address] [facility] Family Medicine Office/Clini c Noteon 04-24-2023 [...] give kenalog 60mg IM in office today. [facility] Comment on above: Result Comment: Elec [...] 11:00 AM EDT With: Alexia Muhammad Where: [facility] Auto Diffon 03-19-2023 Basophils/100 WBC (Bld) 0.3 % Normal 0.0-2.[address] [facility] Comment on above: Order Comment: Order Added by Discern Expert. Performed By: #### 2 884953, 5309006, 9694813, 6809022, [id number] ####[facility] [address] [place] [address] Basophils/Leukocytes Auto (Bld) [Pure # fraction] 0.0 E9/L Normal 0.0-0.[address] [facility] Comment on above: Order Comment: Order Added by Discern Expert. Performed By: #### 2 330664, 2428331, 6087618, 0315859, [id number] ####[address] [address] Eosinophils/100 WBC (Bld) 2.1 % Normal 0.0-8.[address] [facility] Comment on above: Order Comment: Order Added by Discern Expert. Performed By: #### 2 439917, 6417300, 9628463, 4617488, [id number] ####[address] [address] Eosinophils/Leukocytes Auto (Bld) [Pure # fraction] 0.2 E9/L Normal 0.0-0.[address] [facility] Comment on above: Order Comment: Order Added by Discern Expert. Performed By: #### 2 214880, 1233796, 5383246, 9184917, 82507636 ####[address] [address] Lymphocytes/100 WBC (Bld) 20.5 % Normal 14.0-50.[address] [facility] Comment on above: Order Comment: Order Added by Discern Expert. Performed By: #### 2 498371, 2671171, 9884744, 9732079, 21180590 ####[facility] [address] [place] [address] Lymphocytes/Leukocytes Auto (Bld) [Pure # fraction] 1.6 E9/L Normal 1.0-4.[address] [facility] Comment on above: Order Comment: Order Added by Discern Expert. Performed By: #### 2 140427, 2370726, 9015553, 9563111, [id number] ####[address] [address] Monocytes/100 WBC (Bld) 8.7 % Normal 4.0-14.[address] [facility] Comment on above: Order Comment: Order Added by Discern Expert. Performed By: #### 2 691672, 1599529, 0509526, 7302223, 17709207 ####[address] [place] [address] Monocytes/Leukocytes Auto (Bld) [Pure # fraction] 0.7 E9/L Normal 0.2-1.[address] [facility] Comment on above: Order Comment: Order Added by Discern Expert. Performed By: #### 2 506394, 7003052, 3072972, 8212672, 14515264 ####[address] [place] [address] Neutrophils/100 WBC (Bld) 68.4 % Normal 36.0-75.[address] [facility] Comment on above: Order Comment: Order Added by Discern Expert. Performed By: #### 2 781858, 9058315, 3561762, 1320436, [id number] ####[address] [address] Neutrophils/Leukocytes Auto (Bld) [Pure # fraction] 5.3 E9/L Normal 2.0-7.[address] [facility] Comment on above: Order Comment: Order Added by Discern Expert. Performed By: #### 2 881554, 1530796, 0167337, 2775823, 98560579 ####[address] [address] CBC w/ Auto Diffon 3 Erythrocyte distribution width (RBC) [Ratio] 16.3 % High 10.9-14.[address] [facility] Comment on above: Performed By: #### 2 638911, 2064309, 7377254, 5414736, 74732763 ####[address] [place] [address] Hematocrit (Bld) [Volume fraction] 43.7 % Normal 37.7-49.[address] [facility] Comment on above: Performed By: #### 2 514853, 8199939, 6886591, 0693074, 55877441 ####[address] [address] Hemoglobin (Bld) [Mass/Vol] 14.4 g/dL Normal 13.5-17.[address] [facility] Comment on above: Performed By: #### 2 355139, 0578171, 9209111, 1254162, 35730954 ####[place] [address] [address] MCH (RBC) [Entitic mass] 27.9 pg Normal 27.0-34.[address] [facility] Comment on above: Performed By: #### 2 190561, 4639213, 5355042, 9793318, 21339866 ####[address] [address] MCHC (RBC) [Mass/Vol] 33.0 g/dL Normal 31.4-36.[address] [facility] Comment on above: Performed By: #### 2 508766, 8842447, 0462973, 8487865, 14135080 ####[address] [address] MCV (RBC) [Entitic vol] 84.8 fL Normal 80.0-100.[address] [facility] Comment on above: Performed By: #### 2 855101, 4122877, 0974296, 5584706, 90178016 ####[address] [address] Platelet mean volume (Bld) [Entitic vol] 7.7 fL Normal 6.4-10.[address] [facility] Comment on above: Performed By: #### 2 272378, 3945149, 1486359, 5731772, 22855952 ####[address] [address] Platelets (Bld) [#/Vol] 278.0 E9/L Normal 150.0-500.[address] [facility] Comment on above: Performed By: #### 2 363910, 7071194, 6643762, 8340876, 52381961 ####[facility] [address] [place] [address] RBC (Bld) [#/Vol] 5.2 E12/L Normal 4.3-5.[address] [facility] Comment on above: Performed By: #### 2 415823, 9110979, 4670911, 0917468, 85723930 ####[facility] [address] [place] [address] WBC corrected for nucl RBC Auto (Bld) [#/Vol] 7.7 E9/L Normal 4.0-11.0 [facility] Comment on above: Performed By: #### 2 366629, 1001315, 2815440, 6712250, 55855414 ####[facility] [address] [place] [address] CHEMISTRYOrdered By: SYSTEM SYSTEM on 03-19-2023 Cholesterol [...] day(s), # 21 tab(s), Refills(s) 0, Pharmacy: [facility]/pharmacy #6177, 176.5, cm, 03/19/23 13:15:00 EDT, Height/Length Dosing phentermine, 37.5 mg = 1 tab(s), Oral, Daily, # 30 tab(s), Refills(s) 0, Pharmacy: [facility]/pharmacy #6177, 176.5, cm, 03/19/23 13:15:00 EDT, [...] day(s), # 21 tab(s), Refills(s) 0, [facility], 176.5, cm, 03/19/23 13:15:00 EDT, Height/Length Dosing phentermine, 37.5 mg = 1 tab(s), Oral, Daily, # 30 tab(s), Refills(s) 0, [facility], 176.5, cm, 03/19/23 13:15:00 EDT, Height/Length Dosing CBC w/ Auto Diff Cologuard Screening Test Lipid Panel PSA Screen, Total Thyroid Stimulating Hormone 3. Non-smoker (Z78.9: Other specified health status) continue not smoking Ordered: methylPREDNISolone, = 1 packet(s), Oral, As Directed, as directed on package labeling, X 6 day(s), # 21 tab(s), Refills(s) 0, Pharmacy: [facility]/pharmacy #6177, 176.5, cm, 03/19/23 13:15:00 EDT, Height/Length Dosing phentermine, 37.5 mg = 1 tab(s), Oral, Daily, # 30 tab(s), Refills(s) 0, Pharmacy: [facility]/pharmacy #6177, 176.5, cm, 03/19/23 13:15:00 EDT, Height/Length Dosing CBC w/ Auto Diff Cologuard Screening Test Lipid Panel PSA Screen, Total Thyroid Stimulating Hormone 4. Left sciatic nerve pain (M54.32: Sciatica, left side) medrol dose pack sent Ordered: methylPREDNISolone, = 1 packet(s), Oral, As Directed, as directed on package labeling, X 6 day(s), # 21 tab(s), Refills(s) 0, Pharmacy: [facility]/pharmacy #6177, 176.5, cm, 03/19/23 13:15:00 EDT, Height/Length Dosing phentermine, 37.5 mg = 1 tab(s), Oral, Daily, # 30 tab(s), Refills(s) 0, [facility], 176.5, cm, 03/19/23 13:15:00 EDT, Height/Length Dosing Colon cancer screening (Z12.11: (more content not included)... Normal [facility] Comment on above: Result Comment: Elec tronically Signed By: Alexia Muhammad\.br\Date and Time Signed: 03/19/23 14:00 EDT Formson 03-19-2023 Forms [id number] .00CD:[address] [facility] HEMATOLOGYOrdered By: SYSTEM SYSTEM on 03-19-2023 [...] 03-19-2023 Cholesterol [Mass/Vol] 171 mg/dL Normal 120-200 [facility] Comment on above: Performed By: #### 2 771957, 4065212, 0170722, 2595717, 54879361 ####[facility] [address] [place] [address] Cholesterol in HDL [Mass/Vol] 39 mg/dL Invalid Interpretation Code [facility] Comment on above: Result Comment: HDL > or equal to 60 mg/dL: Low cardiovascular risk HDL < 40 mg/dL : High cardiovascular risk Performed By: #### 2 614924, 7116319, 5384416, 8953450, 23464490 ####[facility] [address] [facility] [place] [place] [address] Cholesterol in LDL [Mass/Vol] 112 mg/dL Normal <=[address] [facility] Comment on above: Performed By: #### 2 572520, 1137216, 0506472, 9428498, 31344904 ####[facility] [address] [place] [address] Cholesterol in VLDL [Mass/Vol] 19 mg/dL Normal 7-[address] [facility] Comment on above: Performed By: #### 2 452866, 1039653, 5949214, 8404470, 26127134 ####[facility] [address] [facility] [facility] [place] [address] Triglyceride [Mass/Vol] 94 mg/dL Normal <=[address] [facility] Comment on above: Performed By: #### 2 781426, 1917002, 0029631, 3711631, 23605738 ####[facility] [address] [place] [address] PSA Screen, Totalon 03-19-20 23 Prostate specific Ag [Mass/Vol] 0.9 ng/mL Normal 0.1-3.[address] [facility] Comment on above: Result Comment: The concentration of PSA determined by different manufacturers can vary due to differences in assay methods and reagent specificity. Values obtained from different assay methods cannot be used interchangeably. The methodology used for this result was chemiluminescence using [employer] PSA reagent. Performed By: #### 2 009472, 4967792, [id number] ####[facility] [id number] [place] [address] TSHon 03-19-2023 TSH Qn 2.03 m[IU]/L Normal 0.34-5.[address] [facility] Comment on above: Performed By: #### 2 [id number] ####[facility] [id number] [place] [address] [facility] SARS-CoV-2 (COVID-19) RNA BETHANY+probe Ql (Unsp spec) Not detected Normal NOT DETECTED [facility] Comment on above: Result Comment: When diagnostic [...] for this test is supported by the [place] of [employer] and Human Service's declaration that [...] used). Performed By: #### C VDTBH #### [facility] [address] [address] [address] Mynor Yun GROUP A STREP CULTUREon 07-11 S. pyogenes Ag Ql (Unsp spec) Culture Observations: NEGATIVE FOR GROUP A STREPTOCOCCUS. Normal [facility] Comment on above: Performed By: #### G [id number] #### [facility] [address] [place], [place] [address] Dr. Mynor Yun INFLUENZA A AND B AGon 07-11 INFLUANEGH SEE BELOW Normal [facility] Comment on above: Result Comment: Nega tive for Flu A protein angiten. Infection due to Flu A cannot be ruled out. Flu A angiten in the sample may be below the detection limit of the test. Performed By: #### I NFLUAB #### [facility] [address] [place] [address] Dr. Mynor Yun INFLUBNEGH SEE BELOW Normal [facility] Comment on above: Result Comment: Nega tive for Flu B protein antigen. Infection due to Flu B cannot be ruled out. Flu B antigen in the sample may be below the detection limit of the test. Performed By: #### I NFLUAB #### [facility] [address] [place] [address] Dr. Mynor Yun INFLUENZA A AG Negative Normal NEGATIVE SEE COMMENT [facility] Comment on above: Performed By: #### I NFLUAB #### [facility] [address] [place] [address] Dr. Mynor Yun INFLUENZA B AG Negative Normal NEGATIVE SEE COMMENT [facility] Comment on above: Performed By: #### I NFLUAB #### [facility] [address] [place] [address] Dr. Mynor Yun INTERNAL CONTROLS Within Normal Limits Normal Wi thin Normal Limits [facility] Comment on above: Performed By: #### I NFLUAB #### [facility] [address] [place] [address] Dr. Mynor Yun STREPT SCREENon 07-28-2022 STREP SCREEN A Negative Normal NEGATIVE [facility] Comment on above: Performed By: #### S SCRN #### [facility] [address] [place] [address] Dr. Mynor Yun XR SINUSES 3 VIEWS [...] KELLIE SMALLS Date: 2022-02-01 09:58 Normal [facility] HAND LEFT 3 VWSon 12-29-2021 HAND LEFT [address] [facility] Department of Radiology [address] [place] [id number] Patient Name: RAKESH PIÑA : 1975 Sex: M Age: Race: White Pt. Location: Patient Status: D Ordered Date: 12/29/2021 11:45:00 AM Completed Date: 12/29/2021 11:50 AM Requesting Provider: LORI DALLAS Attending Provider: LORI DALLAS Report Copy To: Signs & Symptoms: M79.642 Pain in left hand I10 History: Comments: Evaluate Exam: HAND LEFT 3 [facility] HAND LEFT 3 [facility] 12/29/2021 11:50 AM CLINICAL INDICATIONS: M79.642 [...] alignment. Electronically signed: Heather Montana. Transcribed by: [email or web address], User Resident: Electronically Signed by: HEATHER MONTANA @ 12/31/2021 08:55 AM Normal [facility] Comment on above: Order Comment: Evalu ate HAND LEFT 3 [facility] 12-08-2021 HAND LEFT [address] [facility] Department of Radiology [address] [place] [phone] Patient Name: RAKESH PIÑA : 1975 Sex: M Age: Race: White Pt. Location: 84 Patient Status: D Ordered Date: 12/08/2021 1:25:00 PM Completed Date: 12/08/2021 01:29 PM Requesting Provider: LORI DALLAS Attending Provider: LORI DALLAS Report Copy To: Signs & Symptoms: M79.642 Pain in left hand I10 History: [place] Comments: Evaluate Exam: HAND LEFT 3 VWS [...] bridging. Electronically signed: Ronaldo Major. Transcribed by: [email or web address], User Resident: Electronically Signed by: RONALDO MAJOR @ 12/09/2021 04:04 PM Normal [facility] Comment on above: Order Comment: Evalu ate HAND LEFT 3 VWSon 11-14-2021 HAND LEFT 3 VWS [facility] Department of Radiology [address] [place] [address] Patient Name: RAKESH PIÑA : [...] fracture. Electronically signed: Ramirez Smith. Transcribed by: [email or web address], User Resident: Electronically Signed by: RAMIREZ SMITH @ 11/14/2021 08:02 PM Normal [facility] Comment on above: Order Comment: Views (X-RAY, HAND): PA, Lateral, Oblique TESTOSTERONE, TOTALon 2021 Testosterone [Mass/Vol] 411 ng/dL Normal 264-916 [facility] Comment on above: Result Comment: Adul t male reference interval is based on a population of healthy nonobese males (BMI <30) between 19 and 39 years old. Iron et.al. JCEM 2017,102;7481-2301. PMID: [id number]. Performed By: #### T ESTTOT #### [facility] [address] [place] [address] Dr. Mynor Yun CBC AUTO DIFFon 11-11-2021 BASO # 0.0 103/ul Normal 0.0-0.1 [facility] Comment on above: Performed By: #### C BC #### [facility] [address] [place] [address] Dr. Mynor Yun Basophils/100 WBC (Bld) 0.2 % Normal 0.2-2.0 [facility] Comment on above: Performed By: #### C BC #### [facility] [address] [place] [address] Dr. Mynor Yun EO # 0.1 103/ul Normal 0.0-0.7 [facility] Comment on above: Performed By: #### C BC #### [facility] [address] [place] [address] Dr. Mynor Yun Eosinophils/100 WBC (Bld) 1.2 % Normal 0.9-7.0 [facility] Comment on above: Performed By: #### C BC #### [facility] [address] [place] [address] Dr. Mynor Yun Erythrocyte distribution width (RBC) [Ratio] 14.3 % Normal 11.0-15.0 [facility] Comment on above: Performed By: #### C BC #### [facility] [address] [place] [address] Dr. Mynor Yun Hematocrit (Bld) [Volume fraction] 47.3 % Normal 42.0-54.0 [facility] Comment on above: Performed By: #### C BC #### [facility] [address] [place] [address] Dr. Mynor Yun Hemoglobin (Bld) [Mass/Vol] 15.2 g/dL Normal 14.0-18.0 [facility] Comment on above: Performed By: #### C BC #### [facility] [address] [place] [address] Dr. Mynor Yun IG # 0.03 10e3/ul Normal 0.00-0.03 [facility] Comment on above: Performed By: #### C BC #### [facility] [address] [place] [address] Dr. Mynor Yun IG % 0.3 % Normal 0.0-0.5 [facility] Comment on above: Performed By: #### C BC #### [facility] [address] [place] [address] Dr. Mynor Yun LYMPH # 1.6 103/ul Normal 1.2-3.8 [facility] Comment on above: Performed By: #### C BC #### [facility] [address] [place] [address] Dr. Mynor Yun Lymphocytes/100 WBC (Bld) 18.4 % Critically low 20.5-60.0 [facility] Comment on above: Performed By: #### C BC #### [facility] [address] [place] [address] Dr. Mynor Yun MANUAL DIFF REQ NO Normal [facility] Comment on above: Performed By: #### C BC #### [facility] [address] [place] [address] Dr. Mynor Yun MCH (RBC) [Entitic mass] 28.8 pg Normal 25.9-34.0 [facility] Comment on above: Performed By: #### C BC #### [facility] [address] [place] [address] Dr. Mynor Yun MCHC (RBC) [Mass/Vol] 32.1 g/dL Normal 29.9-35.2 [facility] Comment on above: Performed By: #### C BC #### [facility] [address] [place] [address] Dr. yMnor Yun MCV (RBC) [Entitic vol] 89.8 fL Normal 80.0-94.0 [facility] Comment on above: Performed By: #### C BC #### [facility] [address] [place] [address] Dr. Mynor Yun MONO # 0.7 103/ul Normal 0.3-0.8 [facility] Comment on above: Performed By: #### C BC #### [facility] [address] [place] [address] Dr. Mynor Yun Monocytes/100 WBC (Bld) 8.4 % Normal 1.7-12.0 [facility] Comment on above: Performed By: #### C BC #### [facility] [address] [place] [address] Dr. Mynor Yun NEUT # 6.2 103/ul Normal 1.4-6.5 [facility] Comment on above: Performed By: #### C BC #### [facility] [address] [place] [address] Dr. Mynor Yun Neutrophils/100 WBC (Bld) 71.5 % Normal 43.0-75.0 [facility] Comment on above: Performed By: #### C BC #### [facility] [address] [place] [address] Dr. Mynor Yun Platelet mean volume (Bld) [Entitic vol] 8.7 fL Critically low 9.5-13.5 [facility] Comment on above: Performed By: #### C BC #### [facility] [address] [place] [address] Dr. Mynor Yun PLT 263 103/ul Normal 150-450 [facility] Comment on above: Performed By: #### C BC #### [facility] [address] [place] [address] Dr. Mynor Yun RBC 5.27 106/ul Normal 4.70-6.10 [facility] Comment on above: Performed By: #### C BC #### [facility] [address] [address] [address] Mynor Yun WBC 8.7 103/ul Normal 4.0-11.0 [facility] Comment on above: Performed By: #### C BC #### [facility] [address] [address] [address] Mynor Yun LIPID PROFILEon 11-11-2021 CHOL-HDL RATIO NORM SEE BELOW Normal [facility] Comment on above: Result Comment: 3.3 - 4.4 LOW RISK 4.4 - 7.1 AVERAGE RISK 7.1 - 11.0 MODERATE RISK >11.0 HIGH RISK Performed By: #### S SCRN #### [facility] [address] [place] [address] Dr. Mynor Yun Cholesterol [Mass/Vol] 129 mg/dL Normal <=200 [facility] Comment on above: Performed By: #### S SCRN #### [facility] [address] [place] [address] Dr. Mynor Yun Cholesterol in HDL [Mass/Vol] 34 mg/dL Normal [facility] Comment on above: Performed By: #### S SCRN #### [facility] [address] [address] [address] Mynor Yun Cholesterol in LDL [Mass/Vol] 82.2 mg/dL Normal [facility] Comment on above: Performed By: #### S SCRN #### [facility] [address] [address] [address] Mynor Yun Cholesterol.total/Chol esterol in HDL [Mass ratio] 3.8 {ratio} Normal [facility] Comment on above: Performed By: #### S SCRN #### [facility] [address] [place] [address] Dr. Mynor Yun HDL NORMAL > or = 60 mg/dl - LO W CARDIOVASCULAR RISK <40 mg/dl - HIGH CARDIOVASCULAR RISK Normal [facility] Comment on above: Performed By: #### S SCRN #### [facility] [address] [place] [address] Dr. Mynor Yun LDL CALC NORMAL SEE BELOW Normal [facility] Comment on above: Result Comment: <100 mg/dl OPTIMAL 100 - 129 mg/dl NEAR OR ABOVE OPTIMAL 130 - 159 mg/dl BORDERLINE HIGH 160 - 189 mg/dl HIGH >190 mg/dl VERY HIGH Performed By: #### S SCRN #### [facility] [address] [address] [address] Mynor Yun Triglyceride [Mass/Vol] 64 mg/dL Normal <=150 [facility] Comment on above: Performed By: #### S SCRN #### [facility] [address] [address] [address] yMnor Yun VLDL CALC 12.8 mg/dL Normal [facility] Comment on above: Performed By: #### S SCRN #### [facility] [address] [address] [address] Mynor Yun PROF 14(COMP METB)on 022 Albumin [Mass/Vol] 3.8 g/dL Normal 3.5-5.0 [facility] Comment on above: Performed By: #### T SH, LIPID, CMP #### [facility] [address] [address] [address] Mynor Yun Albumin/Globulin [Mass ratio] 0.9 {ratio} Normal [facility] Comment on above: Performed By: #### T SH, LIPID, CMP #### [facility] [address] [address] [address] Mynor Yun ALP [Catalytic activity/Vol] 76 U/L Normal 38-126 [facility] Comment on above: Performed By: #### T SH, LIPID, CMP #### [facility] [address] [address] [address] Mynor Yun ALT [Catalytic activity/Vol] 49 U/L Normal 21-72 [facility] Comment on above: Performed By: #### T SH, LIPID, CMP #### [facility] [address] [address] [address] Mynor Yun Anion gap [Moles/Vol] 11.2 mmol/L Normal [facility] Comment on above: Performed By: #### T SH, LIPID, CMP #### [facility] [address] [address] [address] Mynor Yun AST [Catalytic activity/Vol] 31 U/L Normal 17-59 [facility] Comment on above: Performed By: #### T SH, LIPID, CMP #### [facility] [address] [place] [address] Dr. Mynor Yun Bilirubin [Mass/Vol] 0.5 mg/dL Normal 0.2-1.3 [facility] Comment on above: Performed By: #### T SH, LIPID, CMP #### [facility] [address] [place] [address] Dr. Mynor Yun Calcium [Mass/Vol] 9.0 mg/dL Normal 8.4-10.2 [facility] Comment on above: Performed By: #### T SH, LIPID, CMP #### [facility] [address] [place] [address] Dr. Mynor Yun Chloride [Moles/Vol] 104 mmol/L Normal 98-107 [facility] Comment on above: Performed By: #### T SH, LIPID, CMP #### [facility] [address] [address] [address] Mynor Yun CO2 [Moles/Vol] 30.6 mmol/L Critically high 22.0-30.0 [facility] Comment on above: Performed By: #### T SH, LIPID, CMP #### [facility] [address] [place] [address] Dr. Mynor Yun Creatinine [Mass/Vol] 0.95 mg/dL Normal 0.66-1.25 [facility] Comment on above: Performed By: #### T SH, LIPID, CMP #### [facility] [address] [place] [address] Dr. Mynor Yun EGFR-AF BERMUDIAN >60 Normal >=60 [facility] Comment on above: Performed By: #### T SH, LIPID, CMP #### [facility] [address] [place] [address] Dr. Mynor Yun EGFR-NON AF BERMUDIAN >60 Normal >=60 [facility] Comment on above: Performed By: #### T SH, LIPID, CMP #### [facility] [address] [address] [address] Mynor Yun Globulin (S) [Mass/Vol] 4.3 g/dL Normal [facility] Comment on above: Performed By: #### T SH, LIPID, CMP #### [facility] [address] [place] [address] Dr. Mynor Yun Glucose [Mass/Vol] 104 mg/dL Normal 74-[address] [facility] Comment on above: Performed By: #### T SH, LIPID, CMP #### [facility] [address] [place] [address] Dr. Mynor Yun Potassium [Moles/Vol] 3.8 mmol/L Normal 3.4-5.0 [facility] Comment on above: Performed By: #### T SAMARIA, LIPID, CMP #### [facility] [address] [place] [address] Dr. Mynor Yun Protein [Mass/Vol] 8.1 g/dL Normal 6.1-8.[address] [facility] Comment on above: Performed By: #### T SH, LIPID, CMP #### [facility] [address] [place] [address] Dr. Mynor Yun Sodium [Moles/Vol] 142 mmol/L Normal 137-[address] [facility] Comment on above: Performed By: #### T SH, LIPID, CMP #### [facility] [address] [place] [address] Dr. Mynor Yun Urea nitrogen [Mass/Vol] 11.0 mg/dL Normal 9.0-20.0 [facility] Comment on above: Performed By: #### T SH, LIPID, CMP #### [facility] [address] [place] [address] Dr. Mynor Yun Urea nitrogen/Creatinine [Mass ratio] 11.6 mg/mg Normal [facility] Comment on above: Performed By: #### T SH, LIPID, CMP #### [facility] [address] [place] [address] Dr. Mynor Yun TSHon 11-11-2021 TSH 1.612 uIU/mL Normal 0.470-4.[address] [facility] Comment on above: Performed By: #### T SH, LIPID, CMP #### [facility] [address] [place], [place] [address] Dr. Mynor Yun TSH RANGE SEE BELOW Normal [facility] Comment on above: Result Comment: <0.3 4 UIU/ml HYPERTHYROID 0.34-5.60 UIU/ml EUTHYROID >5.60 UIU/ml HYPOTHYROID Performed By: #### T SH, LIPID, CMP #### [facility] [address] [address] [address] Mynor Yun Encounters Encounter Date Encounter Type Care Provider Facility Start: 08-23-2023 End: 08-24-2023 ambulatory Alexia L Laurent [place] [place] Start: 07-26-2023 End: 07-27-2023 ambulatory Alexia L Laurent [facility] Start: 06-21-2023 End: 06-22-2023 ambulatory Alexia L Laurent Facility:[facility] Start: 05-22-2023 End: 05-23-2023 ambulatory Alexia L Laurent Facility:[facility] Start: 04-24-2023 End: 04-25-2023 ambulatory Alexia L Laurent Facility:[facility] Start: 03-19-2023 End: 03-20-2023 ambulatory Alexia L Laurent [place] [place] Start: 03-19-2023 End: 03-20-2023 ambulatory Alexia L Laurent Facility:[facility] Start: 03-19-2023 End: 03-19-2023 Lab Drop off Alexia L Laurent [facility] Start: 03-15-2023 ambulatory Alexia Laurent Facility:[facility] Start: 07-28-2022 End: 07-28-[address] LULU BLANK Facility:[facility] Start: 02-01-2022 End: 02-02-[address] LULU BLANK Facility:[facility] Start: 03-08-2022 Encounter for genera l adult medical examination without abnormal findings DR LULU BLANK [facility] Start: 11-11-2021 End: 11-12-[address] LULU BLANK Facility:[facility] Start: 11-11-2021 End: 11-12-2021 Encounter for general adult medical examination without abnormal findings DR LULU BLANK Facility:[facility] Start: 11-10-2021 End: 11-11-2021 ambulatory MAZIN CANO Facility:[facility] Procedures Date Procedure Procedure Detail Performing Clinician Gastric sleeve Alexia Laurent Comment on above: 2009 Immunizations Immunization Date Immunization Notes Care Provider Fa [facility] 06-07-2022 influenza virus vacc ine, unspecified formulation Aelxia Laurent [facility] 11-12-2020 SARS-CoV-2 (COVID-19 ) mRNA BNT-162b2 vax Alexia Laurent [facility] 10-22-2020 SARS-CoV-2 (COVID-19 ) mRNA BNT-162b2 vax Alexia Laurent [facility] 03-10-2019 pneumococcal polysaccharide vaccine, 23 valent Alexia Laurent [facility] Payers Date Payer Category Payer Unknown [id number] 2019 Unknown [id number] 1975 Unknown [id number] 2.16.84 [id number] 1975 Unknown [id number] 2.16.84 [id number] 1975 Unknown [id number] 2.16.84 [id number] 1975 Unknown [id number] 2.16.84 [id number] 1975 Unknown [id number] 2.16.8 [id number] 1975 Unknown [id number] 2.16.8 [id number] 1975 Unknown [id number] 2.16.8 40.1.399686.3.579.2.7 1975 Unknown [id number] 2.16.8 [id number] 1975 Unknown [id number] 2.16.8 40.1.017104.3.579.2. 1975 Unknown [id number] 2.16.8 40.1.256537.3.579.2.72 1975 Unknown [id number] 2.16.8 40.1.896323.3.579.2. 1975 Unknown [id number] 2.16.8 [id number] 1957 Medicare [id number] 1957 Unknown [id number] Social History Date Type Detail Facility Start: 03-19-2023 Tobacco smoking status Ex-smoker (fi nding) [facility] Tobacco smoking status Never [facility] Sex Assigned At Male [facility] Clinical Note 11-10-2021 Note Date & Type [...] by: KELLIE SMALLS Date: 2021-11-10 13:16 [facility] Evaluation + Plan note Note Date & Type Note Facility Evaluation + Plan note Future Appointments Appointment Date:04/23/2023 11:00:00 AM Scheduled Provider:Alexia Muhammad Location:[facility] Appointment Type: Open [facility] Hospital course Narrative Note Date & Type Note Facility Hospital course Narrative No data available for this section [facility] Hospital Discharge instructions Note Date & Type Note Facility Hospital Discharge instructions No data available for this section [facility] Progress note Note Date & Type Note Facility Progress note No data available for this section [facility] Summary Purpose Family History No Family History Records FoundNo Family History Records FoundNo Family History Records Found Advance Directives No Advanced Directives Records FoundNo Advanced Directives Records FoundNo Advanced Directives Records Found Additional Source Comments (unrecognized sect ion and content) No Status Records FoundNo Status Records FoundNo Status Records Found INFORMATION SOURCE (unrecogn ized section and content) DATE CREATED AUTHOR 01/28/2022 [facility] DATE CREATED AUTHOR AUTHOR'S ORGANIZ ATION 08/10/2022 [facility] DATE CREATED AUTHOR AUTHOR'S ORGANIZ ATION 09/08/2023 [facility] Patient Care team informatio n (unrecognized section and content) Personnel Name: Alexia Muhammad Address: Address: [address] [place] [address]- FOR RECORDS PERTAINING TO PATIENTS WHO ARE [...] BE BASED ON THE PRIMARY CLINICAL RECORDS. [facility]. provides no warranty or guarantee of the accuracy or completeness of information in this document.
== END 2023-10-29 08:20 | disposition home or self-care (01) ==
LOC: EC 08:20
PROVIDERS: PCP Nurse Practitioner; Visit Provider Orthopaedic Surgery
DX: M25.552 Pain in left hip (principal); M51.36 Other intervertebral disc degeneration, lumbar region
CPT/HCPCS: 73502

== ENCOUNTER 2023-11-05 12:19 | Outpatient (OUT) | payer BC, MEDICARE, SELFPAY ==
--- OUTSIDE RECORDS SUMMARY | 2023-11-05 12:44 | XMS_ITS | CCD ---
Author Name Unknown Address [address] [place] [address] Organization [facility] Care Team Providers Care Extrusion Technician Name Role Phone MAZIN CANO Admitting Unavailable [...] FOZIA Admitting Unavailable TRAM, FOZIA Attending Unavailable LaurentAlexia palma Primary Care Physician Alexia Mancilla Attending Unavailable [...] day(s), # 21 tab(s), Refills(s) 0, Pharmacy: [facility]/pharmacy #[id number], 176.5, cm, 03/19/23 13:15:00 EDT, Height/Length [...] day(s), # 30 tab(s), Refills(s) 0, Pharmacy: [facility]/pharmacy #6177, 176.5, cm, 03/19/23 13:15:00 EDT, Height/Length [...] Test Name Value Interpretation Reference [facility] - [facility]IS [id number] .00TIFF Normal [facility] Retail - Clinical Noteon Retail - Clinical Note [id number] .00TIFF Normal [facility] Plan of Care - PT/OT/Speecho n 09-06-2023 Plan of Care - PT/OT/Speech [id number] .00TIFF Normal [facility] Physician Referralon 023 Physician Referral [id number]# 1.00TIFF Normal [facility] Testost Totalon 08-25-2023 Testosterone [Mass/Vol] 321 ng/dL Invalid Interpretation Code [id number] [facility] Comment on above: Result Comment: Adul t male reference interval is based on a population of healthy nonobese males (BMI <30) between 19 and 39 years old. Iron et.al. JCEM 2017,102;6090-2920. PMID: [id number]. Performed at: [facility] [id number] PhD Domenic Rider Performed By: #### 2 533571, [id number], [id number] ####[facility] [address] [place] [address] Reminderson 08-24-2023 Reminders - From: Alexia Muhammad [...] left detailed message for patient below Normal [facility] Medicine Office/Clini c Noteon 08-23-2023 Family Medicine [...] was in slow motion. 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 He would [...] he would like referral to PT at [place] for bakc/leg pain. gabapentin and muscles relaxers did not help. 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 all questions answered. RTC as needed Ordered: cyclobenzaprine, 10 mg = 1 tab(s), Oral, Bedtime, PRN for spasm, # 30 tab(s), Refills(s) 0, Pharmacy: [facility], 176.5, cm, 07/26/23 9:32:00 EST, Height/Length Dosing, 187.2, kg, 07/26/23 9:32:00 EST, Weight Dosing gabapentin, 300 mg = 1 cap(s), Oral, Daily, # 30 cap(s), Refills(s) 0, Pharmacy: [facility], 176.5, cm, 07/26/23 9:32:00 EST, Height/Length Dosing, 187.2, kg, 07/26/23 9:32:00 EST, Weight Dosing 2. Fatigue (R53.83: Other fatigue) labs drawn today Ordered: Lab Specimen Collect 02348 Testosterone Level Total 3. Hypogonadism male (E29.1: Testicular hypofunction) testosterone ordered Ordered: Lab Specimen Collect 09333 Testosterone Level Total 4. BMI 60.0-69.9, adult (Z68.44: Body mass index [BMI] 60.0-69.9, adult) bmi education complete Ordered: cyclobenzaprine, 10 mg = 1 tab(s), Oral, Bedtime, PRN for spasm, # 30 tab(s), Refills(s) 0, Pharmacy: [facility], 176.5, cm, 07/26/23 9:32:00 EST, Height/Length Dosing, 187.2, kg, 07/26/23 9:32:00 EST, Weight Dosing gabapentin, 300 mg = 1 cap(s), Oral, Daily, # 30 cap(s), Refills(s) 0, Pharmacy: [facility], 176.5, cm, 07/26/23 9:32:00 EST, Height/Length Dosing, 187.2, kg, 07/26/23 9:32:00 EST, Weight Dosing Testosterone Level Total Vitamin B12 Level Vitamin D 25 Hydroxy Follow-up No qualifying data available Patient Education Obesity, Adult, Wrhk-nj-Niuf Problem List/Past Medical History Ongoing Encounter for [...] ago Tob (more content not included)... Normal [facility] Comment on above: Result Comment: Elec [...] food choices, such as grocery stores and [employer]. What are the signs or symptoms? The [...] How much exercise you get. ? Take cqdt-cde-gngaquk and prescription medicines only as told by [...] with yo (more content not included)... Normal [facility] Vit B12on 08-23-2023 Cobalamin (Vitamin B12) [Mass/Vol] 301 pg/mL Normal 50-1500 [facility] Comment on above: Performed By: #### 2 291985, 7110777, [id number] ####[facility] [address] [place] [address] Vitamin D 25 Hydroxyon 08-23 Vitamin D 25 Hydroxy 57.7 ng/mL Normal 30.0-100.0 [facility] Comment on above: Performed By: #### 2 801007, [id number], [id number] ####[facility] [address] [place] [address] Ambulatory Visit Summaryon 1 09-25-2022 Ambulatory Visit [...] 9:20 AM EST With: Alexia Muhammad Where: [facility] [place] Normal [facility] Family Medicine Office/Clini c Noteon 07-26-2023 [...] spasm, # 30 tab(s), Refills(s) 0, Pharmacy: [facility], 176.5, cm, 07/26/23 9:32:00 EST, Height/Length Dosing, 187.2, kg, 07/26/23 9:32:00 EST, Weight Dosing gabapentin, 300 mg = 1 cap(s), Oral, Daily, # 30 cap(s), Refills(s) 0, Pharmacy: [facility], 176.5, cm, 07/26/23 9:32:00 EST, Height/Length Dosing, 187.2, kg, 07/26/23 9:32:00 EST, Weight Dosing methylPREDNISolone, = 1 packet(s), Oral, As Directed, as directed on package labeling, X 6 day(s), # 21 tab(s), Refills(s) 0, Pharmacy: [facility], 176.5, cm, 07/26/23 9:32:00 EST, Height/Length [...] spasm, # 30 tab(s), Refills(s) 0, Pharmacy: [facility], 176.5, cm, 07/26/23 9:32:00 EST, Height/Length Dosing, 187.2, kg, 07/26/23 9:32:00 EST, Weight Dosing gabapentin, 300 mg = 1 cap(s), Oral, Daily, # 30 cap(s), Refills(s) 0, Pharmacy: [facility], 176.5, cm, 07/26/23 9:32:00 EST, Height/Length Dosing, 187.2, kg, 07/26/23 9:32:00 EST, Weight Dosing methylPREDNISolone, = 1 packet(s), Oral, As Directed, as directed on package labeling, X 6 day(s), # 21 tab(s), Refills(s) 0, Pharmacy: [facility], 176.5, cm, 07/26/23 9:32:00 EST, Height/Length Dosing, 187.2, kg, 07/26/23 9:32:00 EST, Weight Dosing 3. Numbness and tingling of foot (R20.0: Anesthesia of skin) discussed ENG results Ordered: cyclobenzaprine, 10 mg = 1 tab(s), Oral, Bedtime, PRN for spasm, # 30 tab(s), Refills(s) 0, Pharmacy: [facility], 176.5, cm, 07/26/23 9:32:00 EST, Height/Length Dosing, 187.2, kg, 07/26/23 9:32:00 EST, Weight Dosing gabapentin, 300 mg = 1 cap(s), Oral, Daily, # 30 cap(s), Refills(s) 0, Pharmacy: [facility], 176.5, cm, 07/26/23 9:32:00 EST, Height/Length Dosing, 187.2, kg, 07/26/23 9:32:00 EST, Weight Dosing methylPREDNISolone, = 1 packet(s), Oral, As Directed, as directed on package labeling, X 6 day(s), # 21 tab(s), Refills(s) 0, Pharmacy: [facility], 176.5, cm, 07/26/23 9:32:00 EST, Height/Length Dosing, 187.2, kg, 07/26/23 9:32:00 EST, Weight Dosing 4. Class 3 obesity (E66.01: Morbid (severe) obesity due to excess calories) pt continues with diet Ordered: cyclobenzaprine, 10 mg = 1 tab(s), Oral, Bedtime, PRN for spasm, # 30 tab(s), Refills(s) 0, Pharmacy: [facility], 176.5, cm, 07/26/23 9:32:00 EST, Height/Length Dosing, 187.2, kg, 07/26/23 9:32:00 EST, Weight Dosing gabapentin, 300 mg = 1 cap(s), Oral, Daily, # 30 cap(s), Refills(s) 0, Pharmacy: [facility], 176.5, cm, 07/26/23 9:32:00 EST, Height/Length Dosing, 187.2, kg, 07/26/23 9:32:00 EST, Weight Dosing methylPREDNISolone, = 1 packet(s), Oral, As Directed, as directed on package labeling, X 6 day(s), # 21 tab(s), Refills(s) 0, Pharmacy: [facility], (more content not included)... Normal [facility] Comment on above: Result Comment: Elec tronically Signed By: Alexia Muhammad\.br\Date and Time Signed: 07/26/23 09:54 EST EMG Electromyographyon 07-10 EMG Electromyography [id number] .00TIFF [facility] EMG Electromyography [id number]. 00TIFF [facility] Physician Referralon 023 Physician Referral [id number]# 1.00TIFF [facility] Ambulatory Visit Summaryon 1 Ambulatory Visit [...] 9:20 AM EST With: Alexia Muhammad Where: [facility] [place] Normal [facility] Family Medicine Office/Clini c Noteon 06-21-2023 [...] day(s), # 30 tab(s), Refills(s) 1, Pharmacy: [facility], 176.5, cm, 06/21/23 9:41:00 EDT, Height/Length Dosing, 186.7, kg, 06/21/23 9:41:00 EDT, Weight Dosing meloxicam, 15 mg = 1 tab(s), Oral, Daily, X 30 day(s), # 30 tab(s), Refills(s) 0, Pharmacy: [facility], 176.5, cm, 06/21/23 9:41:00 EDT, Height/Length Dosing, 186.7, kg, 06/21/23 9:41:00 EDT, Weight Dosing meloxicam, 15 mg = 1 tab(s), Oral, Daily, # 30 tab(s), Refills(s) 1, Pharmacy: [facility], 176.5, cm, 05/22/23 9:51:00 EDT, Height/Length Dosing, 190.2, kg, 05/22/23 9:51:00 EDT, Weight Dosing 2. Left sciatic nerve pain (M54.32: Sciatica, left side) pt continues to have left sciatic nerve pain but it is improved Ordered: meloxicam, 15 mg = 1 tab(s), Oral, Daily, X 30 day(s), # 30 tab(s), Refills(s) 1, Pharmacy: [facility], 176.5, cm, 06/21/23 9:41:00 EDT, Height/Length Dosing, 186.7, kg, 06/21/23 9:41:00 EDT, Weight Dosing meloxicam, 15 mg = 1 tab(s), Oral, Daily, X 30 day(s), # 30 tab(s), Refills(s) 0, Pharmacy: [facility], 176.5, cm, 06/21/23 9:41:00 EDT, Height/Length Dosing, 186.7, kg, 06/21/23 9:41:00 EDT, Weight Dosing meloxicam, 15 mg = 1 tab(s), Oral, Daily, # 30 tab(s), Refills(s) 1, Pharmacy: [facility], 176.5, cm, 05/22/23 9:51:00 EDT, Height/Length Dosing, 190.2, kg, 05/22/23 9:51:00 EDT, Weight Dosing phentermine, 37.5 mg = 1 tab(s), Oral, Daily, X 30 day(s), # 30 tab(s), Refills(s) 0, Pharmacy: [facility], 176.5, cm, 05/22/23 9:51:00 EDT, Height/Length Dosing, 190.2, kg, 05/22/23 9:51:00 EDT, Weight Dosing [facility] External Ambulatory Referral 3. Lower extremity numbness (R20.0: Anesthesia of skin) EMG order sent to [facility] in [place] Ordered: [facility] External Ambulatory Referral 4. Morbid obesity due to excess calories (E66.01: Morbid (severe) obesity due to excess calories) BMI education complete Ordered: meloxicam, 15 mg = 1 tab(s), Oral, Daily, X 30 day(s), # 30 tab(s), Refills(s) 1, Pharmacy: [facility], 176.5, cm, 06/21/23 9:41:00 EDT, Height/Length Dosing, 186.7, kg, 06/21/23 9:41:00 EDT, Weight Dosing meloxicam, 15 mg = 1 tab(s), Oral, Daily, X 30 day(s), # 30 tab(s), Refills(s) 0, Pharmacy: [facility], 176.5, cm, 06/21/23 9:41:00 EDT, Height/Length Dosing, 186.7, kg, 06/21/23 9:41:00 EDT, Weight Dosing meloxicam, 15 mg = 1 tab(s), Oral, Daily, # 30 tab(s), Refills(s) 1, Pharmacy: [facility], 176.5, cm, 05/22/23 9:51:00 EDT, Height/Length Dosing, 190.2, kg, 05/22/23 9:51:00 EDT, Weight Dosing phentermine, 37.5 mg = 1 tab(s), Oral, Daily, X 30 day(s), # 30 tab(s), Refills(s) 0, Pharmacy: [facility], 176.5, cm, 05/22/23 9:51:00 EDT, Height/Length Dosing, 190.2, kg, 05/22/23 9:51:00 EDT, Weight Dosing 5. BMI 50.0-59.9, adult (Z68.43: Body mass index [BMI] 50.0-59.9, adult) BMI education complete 6. Non-smoker (Z78.9: Other specified health status) continue not smoking Ordered: meloxicam, 15 mg = 1 tab(s), Oral, Daily, X 30 day(s), # 30 tab(s), Refills(s) 1, Pharmacy: [facility], 176.5, cm, 06/21/23 9:41:00 EDT, Height/Length Dosing, 186.7, kg, 06/21/23 9:41:00 EDT, Weight Dosing meloxicam, 15 mg = 1 tab(s), Or (more content not included)... [facility] Comment on above: Result Comment: Elec [...] 9:20 AM EDT With: Alexia Muhammad Where: [facility] Ambulatory Visit Summary RAKESH PIÑA :1975 Visit [...] 9:20 AM EDT With: Alexia Muhammad Where: [facility] Medicine Office/Clini c Noteon 05-22-2023 Family Medicine Office/Clinic Note HPI Staff Rakesh [...] in his legs at night. 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 all questions answered. RTC 4 weeks Ordered: meloxicam, 15 mg = 1 tab(s), Oral, Daily, # 30 tab(s), Refills(s) 1, Pharmacy: [facility], 176.5, cm, 05/22/23 9:51:00 EDT, Height/Length Dosing, 190.2, kg, 05/22/23 9:51:00 EDT, Weight Dosing 2. Left sciatic nerve pain (M54.32: Sciatica, left side) will order antiinflammatory. steroid did not give him any relief Ordered: meloxicam, 15 mg = 1 tab(s), Oral, Daily, # 30 tab(s), Refills(s) 1, Pharmacy: [facility], 176.5, cm, 05/22/23 9:51:00 EDT, Height/Length Dosing, 190.2, kg, 05/22/23 9:51:00 EDT, Weight Dosing phentermine, 37.5 mg = 1 tab(s), Oral, Daily, X 30 day(s), # 30 tab(s), Refills(s) 0 phentermine, 37.5 mg = 1 tab(s), Oral, Daily, X 30 day(s), # 30 tab(s), Refills(s) 0, Pharmacy: [facility], 176.5, cm, 05/22/23 9:51:00 EDT, Height/Length Dosing, 190.2, kg, 05/22/23 9:51:00 EDT, Weight Dosing 3. BMI 60.0-69.9, adult (Z68.44: Body mass index [BMI] 60.0-69.9, adult) BMI education complete Ordered: meloxicam, 15 mg = 1 tab(s), Oral, Daily, # 30 tab(s), Refills(s) 1, Pharmacy: [facility], 176.5, cm, 05/22/23 9:51:00 EDT, Height/Length Dosing, 190.2, kg, 05/22/23 9:51:00 EDT, Weight Dosing 4. Morbid obesity due to excess calories (E66.01: Morbid (severe) obesity due to excess calories) see above Ordered: meloxicam, 15 mg = 1 tab(s), Oral, Daily, # 30 tab(s), Refills(s) 1, Pharmacy: [facility], 176.5, cm, 05/22/23 9:51:00 EDT, Height/Length Dosing, 190.2, kg, 05/22/23 9:51:00 EDT, Weight Dosing phentermine, 37.5 mg = 1 tab(s), Oral, Daily, X 30 day(s), # 30 tab(s), Refills(s) 0 phentermine, 37.5 mg = 1 tab(s), Oral, Daily, X 30 day(s), # 30 tab(s), Refills(s) 0, Pharmacy: [facility], 176.5, cm, 05/22/23 9:51:00 EDT, Height/Length Dosing, 190.2, kg, 05/22/23 9:51:00 EDT, Weight Dosing 5. Non-smoker (Z78.9: Other specified health status) continue not smoking Ordered: meloxicam, 15 mg = 1 tab(s), Oral, Daily, # 30 tab(s), Refills(s) 1, Pharmacy: [facility], 176.5, cm, 05/22/23 9:51:00 EDT, Height/Length Dosing, 190.2, kg, 05/22/23 9:51:00 EDT, Weight Dosing phentermine, 37.5 mg = 1 tab(s), Oral, Daily, X 30 day(s), # 30 tab(s), Refills(s) 0 phentermine, 37.5 mg = 1 tab(s), Oral, Daily, X 30 day(s), # 30 tab(s), Refills(s) 0, Pharmacy: [facility], 176.5, cm, 05/22/23 9:51:00 EDT, Height/Length [...] Daily Allerg (more content not included)... Normal [facility] Comment on above: Result Comment: Elec tronically Signed By: Alexia Muhammad\.br\Date and Time Signed: 05/22/23 10:34 EDT [place] 04-26-2023 Consent [id number] .00CD:127 Normal [facility] Family Medicine Office/Clini c Noteon 04-24-2023 [...] give kenalog 60mg IM in office today. Normal [facility] Comment on above: Result Comment: Elec [...] What to do next Scheduled Follow-Up Appointments Lorenzo Aug. 14, 2023 11:00 AM EDT With: Alexia Muhammad Where: [facility] [place] Normal [facility] Auto Diffon 03-19-2023 Basophils/100 WBC (Bld) 0.3 % Normal 0.0-2.0 [facility] Comment on above: Order Comment: Order Added by Discern Expert. Performed By: #### 2 941955, 4729508, 1913675, 9735845, [id number] ####[facility] [address] [place] [address] Basophils/Leukocytes Auto (Bld) [Pure # fraction] 0.0 E9/L Normal 0.0-0.2 [facility] Comment on above: Order Comment: Order Added by Discern Expert. Performed By: #### 2 966349, 8858526, 1018750, 7536890, [id number] ####[address] [address] Eosinophils/100 WBC (Bld) 2.1 % Normal 0.0-8.0 [facility] Comment on above: Order Comment: Order Added by Discern Expert. Performed By: #### 2 233332, 2609398, 0168548, 3037872, 49404373 ####[address] [place] [address] Eosinophils/Leukocytes Auto (Bld) [Pure # fraction] 0.2 E9/L Normal 0.0-0.5 [facility] Comment on above: Order Comment: Order Added by Discern Expert. Performed By: #### 2 199873, 5142941, 1387407, 2144374, 26069554 ####[address] [place] [address] Lymphocytes/100 WBC (Bld) 20.5 % Normal 14.0-50.0 [facility] Comment on above: Order Comment: Order Added by Discern Expert. Performed By: #### 2 196943, 6712931, 7318844, 5037555, 23501263 ####[address] [address] Lymphocytes/Leukocytes Auto (Bld) [Pure # fraction] 1.6 E9/L Normal 1.0-4.0 [facility] Comment on above: Order Comment: Order Added by Discern Expert. Performed By: #### 2 533239, 3275001, 5649690, 9029491, 63797893 ####[facility] [address] [place] [address] Monocytes/100 WBC (Bld) 8.7 % Normal 4.0-14.0 [facility] Comment on above: Order Comment: Order Added by Discern Expert. Performed By: #### 2 657016, 4898787, 8411763, 0613263, 36104982 ####[address] [place] [address] Monocytes/Leukocytes Auto (Bld) [Pure # fraction] 0.7 E9/L Normal 0.2-1.0 [facility] Comment on above: Order Comment: Order Added by Discern Expert. Performed By: #### 2 766549, 3663683, 7368646, 3359093, 25239877 ####[address] [address] Neutrophils/100 WBC (Bld) 68.4 % Normal 36.0-75.0 [facility] Comment on above: Order Comment: Order Added by Discern Expert. Performed By: #### 2 778107, 6858912, 7221539, 2072674, 39026933 ####[address] [place] [address] Neutrophils/Leukocytes Auto (Bld) [Pure # fraction] 5.3 E9/L Normal 2.0-7.5 [facility] Comment on above: Order Comment: Order Added by Discern Expert. Performed By: #### 2 037747, 0000563, 7728216, 2135936, 76231339 ####[facility] [address] [place] [address] CBC w/ Auto Diffon 3 Erythrocyte distribution width (RBC) [Ratio] 16.3 % High 10.9-14.2 [facility] Comment on above: Performed By: #### 2 008679, 5171173, 1191193, 5985452, 83082356 ####[facility] [address] [place] [address] Hematocrit (Bld) [Volume fraction] 43.7 % Normal 37.7-49.0 [facility] Comment on above: Performed By: #### 2 372670, 6684687, 2690205, 6235502, 03150056 ####[address] [address] Hemoglobin (Bld) [Mass/Vol] 14.4 g/dL Normal 13.5-17.5 [facility] Comment on above: Performed By: #### 2 640908, 2711412, 2183903, 2341242, 20216913 ####[address] [address] MCH (RBC) [Entitic mass] 27.9 pg Normal 27.0-34.0 [facility] Comment on above: Performed By: #### 2 196221, 5668479, 9303877, 7204565, 80326558 ####[facility] [address] [place] [address] MCHC (RBC) [Mass/Vol] 33.0 g/dL Normal 31.4-36.0 [facility] Comment on above: Performed By: #### 2 242433, 8098339, 0125749, 5275728, 47192736 ####[facility] [address] [place] [address] MCV (RBC) [Entitic vol] 84.8 fL Normal 80.0-100.0 [facility] Comment on above: Performed By: #### 2 279568, 2449054, 5794234, 1997670, 74373812 ####[address] [place] [address] Platelet mean volume (Bld) [Entitic vol] 7.7 fL Normal 6.4-10.8 [facility] Comment on above: Performed By: #### 2 559638, 7685091, 0029536, 4052295, 91870098 ####[facility] [address] [place] [address] Platelets (Bld) [#/Vol] 278.0 E9/L Normal 150.0-500.0 [facility] Comment on above: Performed By: #### 2 229492, 1628485, 9429745, 1473731, 18654238 ####[facility] [address] [place] [address] RBC (Bld) [#/Vol] 5.2 E12/L Normal 4.3-5.9 [facility] Comment on above: Performed By: #### 2 568946, 9289122, 4530284, 7600719, 44194746 ####[facility] [address] [place] [address] WBC corrected for nucl RBC Auto (Bld) [#/Vol] 7.7 E9/L Normal 4.0-11.0 [facility] Comment on above: Performed By: #### 2 995367, 9751517, 9894717, 8790904, 43847216 ####[facility] [address] [place] [address] CHEMISTRYOrdered By: SYSTEM SYSTEM on 03-19-2023 Cholesterol [...] day(s), # 21 tab(s), Refills(s) 0, Pharmacy: [facility], 176.5, cm, 03/19/23 13:15:00 EDT, Height/Length Dosing phentermine, 37.5 mg = 1 tab(s), Oral, Daily, # 30 tab(s), Refills(s) 0, Pharmacy: [facility], 176.5, cm, 03/19/23 13:15:00 EDT, Height/Length [...] day(s), # 21 tab(s), Refills(s) 0, Pharmacy: [facility], 176.5, cm, 03/19/23 13:15:00 EDT, Height/Length Dosing phentermine, 37.5 mg = 1 tab(s), Oral, Daily, # 30 tab(s), Refills(s) 0, Pharmacy: [facility], 176.5, cm, 03/19/23 13:15:00 EDT, Height/Length Dosing CBC w/ Auto Diff Cologuard Screening Test Lipid Panel PSA Screen, Total Thyroid Stimulating Hormone 3. Non-smoker (Z78.9: Other specified health status) continue not smoking Ordered: methylPREDNISolone, = 1 packet(s), Oral, As Directed, as directed on package labeling, X 6 day(s), # 21 tab(s), Refills(s) 0, Pharmacy: [facility]/pharmacy #6177, 176.5, cm, 03/19/23 13:15:00 EDT, Height/Length Dosing phentermine, 37.5 mg = 1 tab(s), Oral, Daily, # 30 tab(s), Refills(s) 0, Pharmacy: [facility]/pharmacy #6177, 176.5, cm, 03/19/23 13:15:00 EDT, Height/Length Dosing CBC w/ Auto Diff Cologuard Screening Test Lipid Panel PSA Screen, Total Thyroid Stimulating Hormone 4. Left sciatic nerve pain (M54.32: Sciatica, left side) medrol dose pack sent Ordered: methylPREDNISolone, = 1 packet(s), Oral, As Directed, as directed on package labeling, X 6 day(s), # 21 tab(s), Refills(s) 0, Pharmacy: [facility]/pharmacy #6177, 176.5, cm, 03/19/23 13:15:00 EDT, Height/Length Dosing phentermine, 37.5 mg = 1 tab(s), Oral, Daily, # 30 tab(s), Refills(s) 0, Pharmacy: [facility]/pharmacy #6177, 176.5, cm, 03/19/23 13:15:00 EDT, Height/Length Dosing Colon cancer screening (Z12.11: (more content not included)... Normal [facility] Comment on above: Result Comment: Elec tronically Signed By: Alexia Muhammad\.br\Date and Time Signed: 03/19/23 14:00 EDT Formson 03-19-2023 Forms [id number] .00CD:127 Normal [facility] HEMATOLOGYOrdered By: SYSTEM SYSTEM on 03-19-2023 [...] 5.2 E12/L Normal 4.3 - 5.9 E12/L [facility] HemeAutoSS WBC corrected for nucl RBC Auto (Bld) [#/Vol] 7.7 E9/L Normal 4.0 - 11.0 E9/L [facility] HemeAutoSS Lipid Panelon 03-19-2023 Cholesterol [Mass/Vol] 171 mg/dL Normal 120-200 [facility] Comment on above: Performed By: #### 2 672354, 3903639, 6724383, 0963573, 29458800 ####[facility] [address] [place] [address] Cholesterol in HDL [Mass/Vol] 39 mg/dL Invalid Interpretation Code [facility] Comment on above: Result Comment: HDL > or equal to 60 mg/dL: Low cardiovascular risk HDL < 40 mg/dL : High cardiovascular risk Performed By: #### 2 [id number], [id number], [id number], [id number], [id number] ####[facility] [address] [place] [address] Cholesterol in LDL [Mass/Vol] 112 mg/dL Normal <=129 [facility] Comment on above: Performed By: #### 2 [id number], [id number], [id number], [id number], [id number] ####[facility] [address] [place] [address] Cholesterol in VLDL [Mass/Vol] 19 mg/dL Normal 7-40 [facility] Comment on above: Performed By: #### 2 [id number], [id number], [id number], [id number], [id number] ####[facility] [address] [place] [address] Triglyceride [Mass/Vol] 94 mg/dL Normal <=149 [facility] Comment on above: Performed By: #### 2 [id number], [id number], [id number], [id number] ####[facility] [address] [place] [address] PSA Screen, Totalon 03-19-20 Prostate specific Ag [Mass/Vol] 0.9 ng/mL Normal 0.1-3.5 [facility] Comment on above: Result Comment: The concentration of PSA determined by different manufacturers can vary due to differences in assay methods and reagent specificity. Values obtained from different assay methods cannot be used interchangeably. The methodology used for this result was chemiluminescence using [employer] PSA reagent. Performed By: #### 2 [id number], [id number], [id number], [id number], [id number] ####[facility] [facility] [id number] [place] [address] TSHon 03-19-2023 TSH Qn 2.03 m[IU]/L Normal 0.34-5.60 [facility] Comment on above: Performed By: #### 2 [id number], [id number], [id number], [id number], [id number] ####[facility] [id number] [place] [address] Covid-19 PCR [facility]on 07-11 SARS-CoV-2 (COVID-19) RNA BETHANY+probe Ql (Unsp spec) Not detected Normal NOT DETECTED [facility] Comment on above: Result Comment: When diagnostic [...] for this test is supported by the Terminal Gauger of Health and Human Service's declaration that [...] used). Performed By: #### C VDTBH #### [facility] [address] [address] [address] Mynor Yun GROUP A STREP CULTUREon 07-11 S. pyogenes Ag Ql (Unsp spec) Culture Observations: NEGATIVE FOR GROUP A STREPTOCOCCUS. Normal [facility] Comment on above: Performed By: #### G RASTCX #### [facility] [address] [place] [address] Dr. Mynor Yun INFLUENZA A AND B AGon 07-28 INFLUANEGH SEE BELOW Normal [facility] Comment on above: Result Comment: Nega tive for Flu A protein angiten. Infection due to Flu A cannot be ruled out. Flu A angiten in the sample may be below the detection limit of the test. Performed By: #### I NFLUAB #### [facility] [address] [place] [address] Dr. Mynor Yun INFLUBNEGH SEE BELOW Normal [facility] Comment on above: Result Comment: Nega tive for Flu B protein antigen. Infection due to Flu B cannot be ruled out. Flu B antigen in the sample may be below the detection limit of the test. Performed By: #### I NFLUAB #### [facility] [address] [place] [address] Dr. Mynor Yun INFLUENZA A AG Negative Normal NEGATIVE SEE COMMENT [facility] Comment on above: Performed By: #### I NFLUAB #### [facility] [address] [place] [address] Dr. Mynor Yun INFLUENZA B AG Negative Normal NEGATIVE SEE COMMENT [facility] Comment on above: Performed By: #### I NFLUAB #### [facility] [address] [place] [address] Dr. Mynor Yun INTERNAL CONTROLS Within Normal Limits Normal Wi thin Normal Limits [facility] Comment on above: Performed By: #### I NFLUAB #### [facility] [address] [place] [address] Dr. Mynor Yun STREPT SCREENon 07-28-2022 STREP SCREEN A Negative Normal NEGATIVE [facility] Comment on above: Performed By: #### S SCRN #### [facility] [address] [place] [address] Dr. Mynor Yun XR SINUSES 3 VIEWS [...] by: KELLIE SMALLS Date: 2022-02-01 09:[address] [facility] HAND LEFT 3 [facility] 12-29-2021 HAND LEFT 3 [facility] Department of Radiology [address] [place] [phone] Patient Name: RAKESH PIÑA : 1975 Sex: M Age: Race: White Pt. Location: 84 Patient Status: D Ordered Date: 12/29/2021 11:45:00 AM Completed Date: 12/29/2021 11:50 AM Requesting Provider: LORI DALLAS Attending Provider: LORI DALLAS Report Copy To: Signs & Symptoms: M79.642 Pain in left hand I10 History: Comments: Evaluate Exam: HAND LEFT 3 [facility] HAND LEFT 3 [facility] 12/29/2021 11:50 AM CLINICAL INDICATIONS: M79.642 [...] alignment. Electronically signed: Heather Montana. Transcribed by: [email or web address], User Resident: Electronically Signed by: HEATHER MONTANA @ 12/31/2021 08:55 AM Normal [facility] Comment on above: Order Comment: Evalu ate HAND LEFT 3 Son 12-08-2021 HAND LEFT 3 S [facility] Department of Radiology [address] [place] [phone] Patient Name: RAKESH PIÑA : 1975 Sex: M Age: Race: White Pt. Location: Patient Status: D Ordered Date: 12/08/2021 1:25:00 PM Completed Date: 12/08/2021 01:29 PM Requesting Provider: LORI DALLAS Attending Provider: LORI DALLAS Report Copy To: Signs & Symptoms: M79.642 Pain in left hand I10 History: [place] Comments: Evaluate Exam: HAND LEFT 3 S HAND LEFT 3 S 12/08/2021 1:29 PM CLINICAL INDICATIONS: M79.642 Pain [...] bridging. Electronically signed: Ronaldo Major. Transcribed by: [email or web address], User Resident: Electronically Signed by: RONALDO MAJOR @ 12/09/2021 04:04 PM Normal [facility] Comment on above: Order Comment: Evalu ate HAND LEFT 3 VWSon 11-14-2021 HAND LEFT 3 S [facility] Department of Radiology [address] [place] [phone] Patient Name: RAKESH PIÑA : 1975 [...] PA, Lateral, Oblique Exam: HAND LEFT 3 [facility] HAND LEFT 3 S 11/14/2021 1:58 PM [...] fracture. Electronically signed: Ramirez Smith. Transcribed by: [email or web address], User Resident: Electronically Signed by: RAMIREZ SMITH @ 11/14/2021 08:02 PM Normal [facility] Comment on above: Order Comment: Views (X-RAY, HAND): PA, Lateral, Oblique TESTOSTERONE, TOTALon 2021 Testosterone [Mass/Vol] 411 ng/dL Normal 264-916 [facility] Comment on above: Result Comment: Adul t male reference interval is based on a population of healthy nonobese males (BMI <30) between 19 and 39 years old. Iron et.al. JCEM 2017,102;7917-9182. PMID: [id number]. Performed By: #### T ESTTOT #### [facility] [address] [place] [address] Dr. Mynor Yun CBC AUTO DIFFon 11-11-2021 BASO # 0.0 103/ul Normal 0.0-0.1 [facility] Comment on above: Performed By: #### C BC #### [facility] [address] [place] [address] Dr. Mynor Yun Basophils/100 WBC (Bld) 0.2 % Normal 0.2-2.0 [facility] Comment on above: Performed By: #### C BC #### [facility] [address] [place] [address] Dr. Mynor Yun EO # 0.1 103/ul Normal 0.0-0.7 [facility] Comment on above: Performed By: #### C BC #### [facility] [address] [place] [address] Dr. Mynor Yun Eosinophils/100 WBC (Bld) 1.2 % Normal 0.9-7.0 [facility] Comment on above: Performed By: #### C BC #### [facility] [address] [place] [address] Dr. Mynor Yun Erythrocyte distribution width (RBC) [Ratio] 14.3 % Normal 11.0-15.0 [facility] Comment on above: Performed By: #### C BC #### [facility] [address] [place] [address] Dr. Mynor Yun Hematocrit (Bld) [Volume fraction] 47.3 % Normal 42.0-54.0 [facility] Comment on above: Performed By: #### C BC #### [facility] [address] [place] [address] Dr. Mynor Yun Hemoglobin (Bld) [Mass/Vol] 15.2 g/dL Normal 14.0-18.0 [facility] Comment on above: Performed By: #### C BC #### [facility] [address] [place] [address] Dr. Mynor Yun IG # 0.03 10e3/ul Normal 0.00-0.03 [facility] Comment on above: Performed By: #### C BC #### [facility] [address] [place] [address] Dr. Mynor Yun IG % 0.3 % Normal 0.0-0.5 [facility] Comment on above: Performed By: #### C BC #### [facility] [address] [place] [address] Dr. Mynor Yun LYMPH # 1.6 103/ul Normal 1.2-3.8 [facility] Comment on above: Performed By: #### C BC #### [facility] [address] [place] [address] Dr. Mynor Yun Lymphocytes/100 WBC (Bld) 18.4 % Critically low 20.5-60.0 [facility] Comment on above: Performed By: #### C BC #### [facility] [address] [place] [address] Dr. Mynor Yun MANUAL DIFF REQ NO Normal [facility] Comment on above: Performed By: #### C BC #### [facility] [address] [place] [address] Dr. Mynor Yun MCH (RBC) [Entitic mass] 28.8 pg Normal 25.9-34.0 [facility] Comment on above: Performed By: #### C BC #### [facility] [address] [place] [address] Dr. Mynor Yun MCHC (RBC) [Mass/Vol] 32.1 g/dL Normal 29.9-35.2 [facility] Comment on above: Performed By: #### C BC #### [facility] [address] [place] [address] Dr. Mynor Yun MCV (RBC) [Entitic vol] 89.8 fL Normal 80.0-94.0 [facility] Comment on above: Performed By: #### C BC #### [facility] [address] [place] [address] Dr. Mynor Yun MONO # 0.7 103/ul Normal 0.3-0.8 [facility] Comment on above: Performed By: #### C BC #### [facility] [address] [place] [address] Dr. Mynor Yun Monocytes/100 WBC (Bld) 8.4 % Normal 1.7-12.0 [facility] Comment on above: Performed By: #### C BC #### [facility] [address] [place] [address] Dr. Mynor Yun NEUT # 6.2 103/ul Normal 1.4-6.5 [facility] Comment on above: Performed By: #### C BC #### [facility] [address] [place] [address] Dr. Mynor Yun Neutrophils/100 WBC (Bld) 71.5 % Normal 43.0-75.0 [facility] Comment on above: Performed By: #### C BC #### [facility] [address] [place] [address] Dr. Mynor Yun Platelet mean volume (Bld) [Entitic vol] 8.7 fL Critically low 9.5-13.5 [facility] Comment on above: Performed By: #### C BC #### [facility] [address] [address] [address] Mynor Yun PLT 263 103/ul Normal 150-450 [facility] Comment on above: Performed By: #### C BC #### [facility] [address] [address] [address] Mynor Yun RBC 5.27 106/ul Normal 4.70-6.10 [facility] Comment on above: Performed By: #### C BC #### [facility] [address] [address] [address] Mynor Yun WBC 8.7 103/ul Normal 4.0-11.0 [facility] Comment on above: Performed By: #### C BC #### [facility] [address] [place] [address] Dr. Mynor Yun LIPID PROFILEon 11-11-2021 CHOL-HDL RATIO NORM SEE BELOW Normal [facility] Comment on above: Result Comment: 3.3 - 4.4 LOW RISK 4.4 - 7.1 AVERAGE RISK 7.1 - 11.0 MODERATE RISK >11.0 HIGH RISK Performed By: #### S SCRN #### [facility] [address] [place] [address] Dr. Mynor Yun Cholesterol [Mass/Vol] 129 mg/dL Normal <=200 [facility] Comment on above: Performed By: #### S SCRN #### [facility] [address] [place] [address] Dr. Mynor Yun Cholesterol in HDL [Mass/Vol] 34 mg/dL Normal [facility] Comment on above: Performed By: #### S SCRN #### [facility] [address] [place] [address] Dr. Mynor Yun Cholesterol in LDL [Mass/Vol] 82.2 mg/dL Normal [facility] Comment on above: Performed By: #### S SCRN #### [facility] [address] [place] [address] Dr. Mynor Yun Cholesterol.total/Chol esterol in HDL [Mass ratio] 3.8 {ratio} Normal [facility] Comment on above: Performed By: #### S SCRN #### [facility] [address] [address] [address] Mynor Yun HDL NORMAL > or = 60 mg/dl - LO W CARDIOVASCULAR RISK <40 mg/dl - HIGH CARDIOVASCULAR RISK Normal [facility] Comment on above: Performed By: #### S SCRN #### [facility] [address] [address] [address] Mynor Yun LDL CALC NORMAL SEE BELOW Normal [facility] Comment on above: Result Comment: <100 mg/dl OPTIMAL 100 - 129 mg/dl NEAR OR ABOVE OPTIMAL 130 - 159 mg/dl BORDERLINE HIGH 160 - 189 mg/dl HIGH >190 mg/dl VERY HIGH Performed By: #### S SCRN #### [facility] [address] [place] [address] Dr. Mynor Yun Triglyceride [Mass/Vol] 64 mg/dL Normal <=150 [facility] Comment on above: Performed By: #### S SCRN #### [facility] [address] [address] [address] Mynor Yun VLDL CALC 12.8 mg/dL Normal [facility] Comment on above: Performed By: #### S SCRN #### [facility] [address] [place] [address] Dr. Mynor Yun PROF 14(COMP METB)on 022 Albumin [Mass/Vol] 3.8 g/dL Normal 3.5-5.0 [facility] Comment on above: Performed By: #### T SH, LIPID, CMP #### [facility] [address] [place] [address] Dr. Mynor Yun Albumin/Globulin [Mass ratio] 0.9 {ratio} Normal [facility] Comment on above: Performed By: #### T SH, LIPID, CMP #### [facility] [address] [place] [address] Dr. Mynor Yun ALP [Catalytic activity/Vol] 76 U/L Normal 38-126 [facility] Comment on above: Performed By: #### T SH, LIPID, CMP #### [facility] [address] [place] [address] Dr. Mynor Yun ALT [Catalytic activity/Vol] 49 U/L Normal 21-72 [facility] Comment on above: Performed By: #### T SAMARIA, LIPID, CMP #### [facility] [address] [place] [address] Dr. Mynor Yun Anion gap [Moles/Vol] 11.2 mmol/L Normal Th e [facility] Comment on above: Performed By: #### T SAMARIA, LIPID, CMP #### [facility] [address] [place] [address] Dr. Mynor Yun AST [Catalytic activity/Vol] 31 U/L Normal 17-59 [facility] Comment on above: Performed By: #### T SAMARIA LIPID, CMP #### [facility] [address] [place] [address] Dr. Mynor Yun Bilirubin [Mass/Vol] 0.5 mg/dL Normal 0.2-1.3 [facility] Comment on above: Performed By: #### T SAMARIA, LIPID, CMP #### [facility] [address] [place] [address] Dr. Mynor Yun Calcium [Mass/Vol] 9.0 mg/dL Normal 8.4-10.2 [facility] Comment on above: Performed By: #### T SAMARIA LIPID, CMP #### [facility] [address] [place] [address] Dr. Mynor Yun Chloride [Moles/Vol] 104 mmol/L Normal 98-107 [facility] Comment on above: Performed By: #### T SAMARIA, LIPID, CMP #### [facility] [address] [place] [address] Dr. Mynor Yun CO2 [Moles/Vol] 30.6 mmol/L Critically high 22.0-30.0 [facility] Comment on above: Performed By: #### T SAMARIA, LIPID, CMP #### [facility] [address] [place] [address] Dr. Mynor Yun Creatinine [Mass/Vol] 0.95 mg/dL Normal 0.66-1.25 [facility] Comment on above: Performed By: #### T SAMARIA, LIPID, CMP #### [facility] [address] [address] [address] Mynor Yun EGFR-AF NAURUAN >60 Normal >=60 [facility] Comment on above: Performed By: #### T SH, LIPID, CMP #### [facility] [address] [address] [address] Mynor Yun EGFR-NON AF NAURUAN >60 Normal >=60 [facility] Comment on above: Performed By: #### T SH, LIPID, CMP #### [facility] [address] [address] [address] Mynor Yun Globulin (S) [Mass/Vol] 4.3 g/dL Normal [facility] Comment on above: Performed By: #### T SAMARIA, LIPID, CMP #### [facility] [address] [place] [address] Dr. Mynor Yun Glucose [Mass/Vol] 104 mg/dL Normal 74-[address] [facility] Comment on above: Performed By: #### T SAMARIA, LIPID, CMP #### [facility] [address] [place] [address] Dr. Mynor Yun Potassium [Moles/Vol] 3.8 mmol/L Normal 3.4-5.0 [facility] Comment on above: Performed By: #### T SAMARIA, LIPID, CMP #### [facility] [address] [place] [address] Dr. Mynor Yun Protein [Mass/Vol] 8.1 g/dL Normal 6.1-8.[address] [facility] Comment on above: Performed By: #### T SH, LIPID, CMP #### [facility] [address] [place] [address] Dr. Mynor Yun Sodium [Moles/Vol] 142 mmol/L Normal 137-[address] [facility] Comment on above: Performed By: #### T SH, LIPID, CMP #### [facility] [address] [place] [address] Dr. Mynor Yun Urea nitrogen [Mass/Vol] 11.0 mg/dL Normal 9.0-20.0 [facility] Comment on above: Performed By: #### T SH, LIPID, CMP #### [facility] [address] [address] [address] Mynor Yun Urea nitrogen/Creatinine [Mass ratio] 11.6 mg/mg Normal [facility] Comment on above: Performed By: #### T SH, LIPID, CMP #### [facility] [address] [address] [address] Mynor Yun TSHon 11-11-2021 TSH 1.612 uIU/mL Normal 0.470-4.680 [facility] Comment on above: Performed By: #### T SH, LIPID, CMP #### [facility] [address] [address] [address] Mynor Yun TSH RANGE SEE BELOW Normal [facility] Comment on above: Result Comment: <0.3 4 UIU/ml HYPERTHYROID 0.34-5.60 UIU/ml EUTHYROID >5.60 UIU/ml HYPOTHYROID Performed By: #### T SH, LIPID, CMP #### [facility] [address] [address] [address] Mynor Yun Encounters Encounter Date Encounter Type Care Provider Facility Start: 08-23-2023 End: 08-24-2023 ambulatory Alexia L Laurent Facility:[facility] Start: 07-26-2023 End: 07-27-2023 ambulatory Alexia L Laurent Facility:[facility] Start: 06-21-2023 End: 06-22-2023 ambulatory Alexia L Laurent Facility:[facility] Start: 05-22-2023 End: 05-23-2023 ambulatory Alexia L Laurent Facility:[facility] Start: 04-24-2023 End: 04-25-2023 ambulatory Alexia L Laurent Facility:[facility] Start: 03-19-2023 End: 03-20-2023 ambulatory Alexia L Laurent Facility:[facility] Start: 03-19-2023 End: 03-20-2023 ambulatory Aleixa L Laurent Facility:[facility] Start: 03-19-2023 End: 03-19-2023 Lab Drop off Alexia L Laurent [facility] Start: 03-15-2023 ambulatory Alexia Laurent Facility:[facility] Start: 07-28-2022 End: 07-28-[address] LULU BLANK Facility:[facility] Start: 02-01-2022 End: 02-02-[address] LULU BLANK Facility:[facility] Start: 11-15-2021 Encounter for genera l adult medical examination without abnormal findings DR LULU BLANK [facility] Start: 11-11-2021 End: 11-12-[address] LULU BLANK Facility:[facility] Start: 11-11-2021 End: 11-12-2021 Encounter for general adult medical examination without abnormal findings DR LULU BLANK Facility:[facility] Start: 11-10-2021 End: 11-11-2021 ambulatory MAZIN CANO Facility:[facility] Procedures Date Procedure Procedure Detail Performing Clinician Gastric sleeve Alexia Laurent Comment on above: 2009 Immunizations Immunization Date Immunization Notes Care Provider [facility] 06-07-2022 influenza virus vacc ine, unspecified formulation Alexia Laurent [facility] 11-12-2020 SARS-CoV-2 (COVID-19 ) mRNA BNT-162b2 vax Alexia Laurent [facility] 10-22-2020 SARS-CoV-2 (COVID-19 ) mRNA BNT-162c5 vax Alexia Laurent [facility] 03-10-2019 pneumococcal polysaccharide vaccine, 23 valent Alexia Laurent [facility] Payers Date Payer Category Payer Unknown [id number] 2019 Unknown [id number] 1975 Unknown [id number] 2.16.84 [id number] 1975 Unknown [id number] 2.16.84 [id number] 1975 Unknown [id number] 2.16.84 [id number] 1975 Unknown [id number] 2.16.84 [id number] 1975 Unknown [id number] 2.16.8 [id number] 1975 Unknown [id number] 2.16.8 [id number] 1975 Unknown [id number] 2.16.8 [id number] 1975 Unknown [id number] 2.16.8 [id number] 1975 Unknown [id number] 2.16.8 [id number] 1975 Unknown [id number] 2.16.8 [id number] 1975 Unknown [id number] 2.16.8 [id number] 1975 Unknown [id number] 2.16.8 [id number] 1957 Medicare [id number] 1957 Unknown [id number] Social History Date Type Detail Facility Start: 03-19-2023 Tobacco smoking status Ex-smoker (fi nding) [facility] Tobacco smoking status Never [facility] Sex Assigned At Male [facility] Clinical Note 11-10-2021 Note Date & Type [...] authenticated by: KELLIE SMALLS Date: 2021-11-10 13:16 [facility] Evaluation + Plan note Note Date & Type Note [facility] Evaluation + Plan note Future Appointments Appointment Date:04/23/2023 11:00:00 AM Scheduled Provider:Aelxia Muhammad Location:[facility] Appointment Type: Open [facility] Hospital course Narrative Note Date & Type Note Facility Hospital course Narrative No data available for this section [facility] Hospital Discharge instructions Note Date & Type Note [facility] Hospital Discharge instructions No data available for this section [facility] Progress note Note Date & Type Note [facility] Progress note No data available for this section [facility] Summary Purpose Family History No Family History Records FoundNo Family History Records FoundNo Family History Records Found Advance Directives No Advanced Directives Records FoundNo Advanced Directives Records FoundNo Advanced Directives Records Found Additional Source Comments (unrecognized sect ion and content) No Status Records FoundNo Status Records FoundNo Status Records Found INFORMATION SOURCE (unrecogn ized section and content) DATE CREATED AUTHOR 01/28/2022 [facility] DATE CREATED AUTHOR AUTHOR'S ORGANIZ ATION 08/10/2022 [facility] DATE CREATED AUTHOR AUTHOR'S ORGANIZ ATION 10/30/2023 [facility] Patient Care team informatio n (unrecognized section and content) Personnel Name: Alexia Muhammad Address: Address: [address] [place] [phone] FOR RECORDS PERTAINING TO PATIENTS WHO ARE [...] BE BASED ON THE PRIMARY CLINICAL RECORDS. [facility]. provides no warranty or guarantee of the accuracy or completeness of information in this document.
--- NOTE | 2023-11-05 13:28 | P.CN_ITS ---
Consult Note: HPI Data of Consult Patient: new to practice Consult date: 11/05/23 Requesting Physician: Wilbert Buckner MD Primary Care Provider: EFFIE SARMIENTO Consult Narrative Reason for consult: Low back, left hip pain Narrative: 48yom who presents for evaluation. Worsening low back and left hip pain. Left h ip XR shows mild to mod arthritis. Continues in provider directed home exercise course >6 weeks, with minimal relief. Uses aleve, which provides some benefit. Denies adverse med side effects. cc:: CC: Wilbert Buckner MD Review of Systems ROS Status of ROS 10 or more systems reviewed and unremark able except as noted in history and below [facility] Medical History Osteoarthritis ?M19.90 - Unspecified osteoarthritis, unspecified site (ICD-10) KWAN on CPAP ?G47.33 - Obstructive sleep apnea (adult) (pediatric) (ICD-10) Sleep apnea ?G47.30 - Sleep apnea, unspecified (ICD-10) Meds Home Medications and Allergies Home Medications Medication Instructions Recorded Confirmed Type celecoxib 200 mg capsule (Celebrex) 200 mg PO BID 11/05/23 11/05/23 History cholecalciferol (vitamin D3) 125 125 mcg PO DAILY 11/05/23 11/05/23 History mcg (5,000 unit) tablet (Vitamin D3) cranberry 400 mg capsule 1,600 mg PO DAILY 11/05/23 11/05/23 History loratadine 10 mg tablet (Claritin) 10 mg PO DAILY 11/05/23 11/05/23 History vitamin E 268 mg (400 unit) capsule 268 mg PO DAILY 11/05/23 11/05/23 History Allergies Allergy/AdvReac Type Severity Reaction Status Date / Time No Known Drug Allergies Allergy Verified 11/05/23 13:21 Exam Narrative Exam Narrative: Psych-alert and oriented x 3.? Attentive and appropriate, constitutionally normal, displays normal mood and affect per situation.? There are no obvious deficits in memory, reasoning, or intellect.? Skin-no obvious rashes, bruising, erythema noted to the patient's area of pain. Extremities- extremities are warm with minimal edema and palpable pulses. Hip-tenderness to palpation is noted over the left hip joint.? Pain is elicited with internal and external rotation of the hip.? Hip provocative maneuvers are positive and consistent with the patient's normal pain.? Lumbar-no significant tenderness to palpation noted in the lumbar spine and paraspinal musculature.? Pain is elicited with extension, and lateral rotation of the lumbar spine. Range of motion is slightly diminished with these motions due to pain. Facet loading maneuvers are positive bilaterally and do appear to be concordant with the patient's normal complaints of pain. Coordination remains intact.? Gait remains antalgic. Assessment and Plan Assessment and Plan (1) Osteoarthritis of left hip: Qualifiers: Osteoarthritis type: primary Qualified Code(s): M16.12 - Unilateral primary osteoarthritis, left hip (2) Lumbago: Qualifiers: Chronicity: chronic Back pain laterality: bilateral Sciatica presence: unspecified whether sciatica present Qualified Code(s): M54.50 - Low back pain, unspecified; G89.29 - Other chronic pain Plan 48yom who presents for evaluation. Failed conservative measures, as noted. Imaging reviewed, as noted. Given symptoms and imaging, prudent to attempt left hip injection under fluoroscopic guidance. He is in agreement. Will also obtain lumbar and sacral XR for further info. Meds reviewed. Will trial celebrex 200mg bid prn. Follow up after procedure and imaging.
== END 2023-11-05 12:20 | disposition home or self-care (01) ==
LOC: PM 12:20
PROVIDERS: PCP Nurse Practitioner; Visit Provider Anesthesiology
DX: M16.12 Unilateral primary osteoarthritis, left hip (principal); M54.50 Low back pain, unspecified; G89.29 Other chronic pain
CPT/HCPCS: G0463

== ENCOUNTER 2023-11-08 09:14 | Outpatient (OUT) | payer BC, SELFPAY ==
--- NOTE | 2023-11-08 09:27 | XR_ITS ---
[address] [address] Patient Name: RAKESH PIÑA MRN: [id number] date: 1975 Sex: M Assigned Patient Location: [facility] Current Patient Location: [facility] Accession/Order Number: [id number] Exam Date: 11/08/2023 09:32 Report Date: 11/08/2023 10:17 At the request of: CLAUDIA KELLYEDRAEDDI Procedure: XR sacrum coccyx min 2V EXAMINATION: XR lumbar spine 6V w bending, XR sacrum coccyx min 2V HISTORY: Lumbago, Left Hip Pain COMPARISON: No relevant comparison available. FINDINGS: BONES: Normal alignment with no acute fracture or spondylolisthesis of the lumbar spine, sacrum or coccyx. Moderate diffuse degenerative spondylosis and facet osteoarthropathy DISC SPACES: Multilevel disc space narrowing with vacuum disc L4-L5 PARASPINOUS: No transient spondylolisthesis with flexion or extension OTHER: Negative. XR/XR sacrum coccyx min 2V IMPRESSION: Moderate degenerative changes of the spine No acute abnormality or dynamic instability Electronically authenticated by: KELLIE SMALLS Date: 11/08/2023 10:17
--- NOTE | 2023-11-08 09:27 | XR_ITS ---
The [address] [address] Patient Name: RAKESH PIÑA MRN: [id number] date: 1975 Sex: M Assigned Patient Location: [facility] Current Patient Location: [facility] Accession/Order Number: [id number] Exam Date: 11/08/2023 09:32 Report Date: 11/08/2023 10:17 At the request of: CLAUDIA RINCONRAEDDI Procedure: XR lumbar spine 6V w bending EXAMINATION: XR lumbar spine 6V w bending, XR sacrum coccyx min 2V HISTORY: Lumbago, Left Hip Pain COMPARISON: No relevant comparison available. FINDINGS: BONES: Normal alignment with no acute fracture or spondylolisthesis of the lumbar spine, sacrum or coccyx. Moderate diffuse degenerative spondylosis and facet osteoarthropathy DISC SPACES: Multilevel disc space narrowing with vacuum disc L4-L5 PARASPINOUS: No transient spondylolisthesis with flexion or extension OTHER: Negative. XR/XR lumbar spine 6V w bending IMPRESSION: Moderate degenerative changes of the spine No acute abnormality or dynamic instability Electronically authenticated by: KELLIE SMALLS Date: 11/08/2023 10:17
--- OUTSIDE RECORDS SUMMARY | 2023-11-08 09:43 | XMS_ITS | CCD ---
Author Name Unknown Address [address] [place] [address] Organization [facility] Care Team Providers Care Prize Coordinator Name Role Phone MAZIN CANO Admitting Unavailable [...] UGALDE Consulting Unavailable TRAM, FOZIA Admitting Unavailable TARM, FOZIA Attending Unavailable LaurentAlexia plama Primary Care Physician [phone] Alexia Mancilla Attending Unavailable Laurent, Alexia Sewell [...] day(s), # 21 tab(s), Refills(s) 0, Pharmacy: [facility]/pharmacy #6177, 176.5, cm, 03/19/23 13:15:00 [...] day(s), # 30 tab(s), Refills(s) 0, Pharmacy: [facility]/pharmacy #6177, 176.5, cm, 03/19/23 13:15:00 [...] Value Interpretation [facility] - MIS [id number]#1 .00TIFF Normal [facility] Retail - Clinical Noteon Retail - Clinical Note [id number]#1 .00TIFF Normal [facility] Plan of Care - PT/OT/Speecho n 09-06-2023 Plan of Care - PT/OT/Speech [id number]#1 .00TIFF Normal [facility] Physician Referralon 023 Physician Referral [id number]# 1.00TIFF Normal [facility] Testost Totalon 08-25-2023 Testosterone [Mass/Vol] 321 ng/dL Invalid Interpretation Code [id number] [facility] Comment on above: Result Comment: Adul t male reference interval is based on a population of healthy nonobese males (BMI <30) between 19 and 39 years old. Iron et.al. JCEM 2017,102;3569-3316. PMID: [id number]. Performed at: [facility] [id number] PhD Domenic Rider Performed By: #### 2 [id number], [id number], [id number] ####[facility] [address] [place] [address] Reminderson 08-24-2023 Reminders - From: Alexia Muhammad [...] detailed message for patient below Normal [facility] Medicine Office/Clini c Noteon 08-23-2023 Family Medicine [...] thing was in slow motion. 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 He would [...] he would like referral to PT at [place] for bakc/leg pain. gabapentin and muscles relaxers did not help. 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 all questions answered. RTC as needed Ordered: cyclobenzaprine, 10 mg = 1 tab(s), Oral, Bedtime, PRN for spasm, # 30 tab(s), Refills(s) 0, Pharmacy: [facility], 176.5, cm, 07/26/23 9:32:00 EST, Height/Length Dosing, 187.2, kg, 07/26/23 9:32:00 EST, Weight Dosing gabapentin, 300 mg = 1 cap(s), Oral, Daily, # 30 cap(s), Refills(s) 0, Pharmacy: [facility], 176.5, cm, 07/26/23 9:32:00 EST, Height/Length Dosing, 187.2, kg, 07/26/23 9:32:00 EST, Weight Dosing 2. Fatigue (R53.83: Other fatigue) labs drawn today Ordered: Lab Specimen Collect [id number] Testosterone Level Total 3. Hypogonadism male (E29.1: Testicular hypofunction) testosterone ordered Ordered: Lab Specimen Collect [id number] Testosterone Level Total 4. BMI 60.0-69.9, adult (Z68.44: Body mass index [BMI] 60.0-69.9, adult) bmi education complete Ordered: cyclobenzaprine, 10 mg = 1 tab(s), Oral, Bedtime, PRN for spasm, # 30 tab(s), Refills(s) 0, Pharmacy: [facility], 176.5, cm, 07/26/23 9:32:00 EST, Height/Length Dosing, 187.2, kg, 07/26/23 9:32:00 EST, Weight Dosing gabapentin, 300 mg = 1 cap(s), Oral, Daily, # 30 cap(s), Refills(s) 0, Pharmacy: [facility] #[facility], 176.5, cm, 07/26/23 9:32:00 EST, Height/Length Dosing, 187.2, kg, 07/26/23 9:32:00 EST, Weight Dosing Testosterone Level Total Vitamin B12 Level Vitamin D 25 Hydroxy Follow-up No qualifying data available Patient Education Obesity, Adult, Npjs-hl-Lnaq Problem List/Past Medical History Ongoing Encounter for [...] ago Tob (more content not included)... Normal [facility] Comment on above: Result Comment: Elec [...] food choices, such as grocery stores and [employer] What are the signs or symptoms? The [...] How much exercise you get. ? Take ggxv-qww-tarfzqu and prescription medicines only as told by [...] with yo (more content not included)... Normal [facility] Vit B12on 08-23-2023 Cobalamin (Vitamin B12) [Mass/Vol] 301 pg/mL Normal 50-1500 [facility] Comment on above: Performed By: #### 2 453259, 3969915, [id number] ####[facility] [address] [place] [address] Vitamin D 25 Hydroxyon 08-23 Vitamin D 25 Hydroxy 57.7 ng/mL Normal 30.0-100.0 [facility] Comment on above: Performed By: #### 2 607050, 6734030, [id number] ####[facility] [address] [place] [address] Ambulatory Visit Summaryon 1 09-25-2022 Ambulatory Visit [...] 9:20 AM EST With: Alexia Muhammad Where: [facility] [place] [facility] Family Medicine Office/Clini c Noteon 07-26-2023 [...] spasm, # 30 tab(s), Refills(s) 0, Pharmacy: [facility], 176.5, cm, 07/26/23 9:32:00 EST, Height/Length Dosing, 187.2, kg, 07/26/23 9:32:00 EST, Weight Dosing gabapentin, 300 mg = 1 cap(s), Oral, Daily, # 30 cap(s), Refills(s) 0, Pharmacy: [facility], 176.5, cm, 07/26/23 9:32:00 EST, Height/Length Dosing, 187.2, kg, 07/26/23 9:32:00 EST, Weight Dosing methylPREDNISolone, = 1 packet(s), Oral, As Directed, as directed on package labeling, X 6 day(s), # 21 tab(s), Refills(s) 0, Pharmacy: [facility], 176.5, cm, 07/26/23 9:32:00 EST, Height/Length [...] spasm, # 30 tab(s), Refills(s) 0, Pharmacy: [facility], 176.5, cm, 07/26/23 9:32:00 EST, Height/Length Dosing, 187.2, kg, 07/26/23 9:32:00 EST, Weight Dosing gabapentin, 300 mg = 1 cap(s), Oral, Daily, # 30 cap(s), Refills(s) 0, Pharmacy: [facility], 176.5, cm, 07/26/23 9:32:00 EST, Height/Length Dosing, 187.2, kg, 07/26/23 9:32:00 EST, Weight Dosing methylPREDNISolone, = 1 packet(s), Oral, As Directed, as directed on package labeling, X 6 day(s), # 21 tab(s), Refills(s) 0, Pharmacy: [facility], 176.5, cm, 07/26/23 9:32:00 EST, Height/Length Dosing, 187.2, kg, 07/26/23 9:32:00 EST, Weight Dosing 3. Numbness and tingling of foot (R20.0: Anesthesia of skin) discussed ENG results Ordered: cyclobenzaprine, 10 mg = 1 tab(s), Oral, Bedtime, PRN for spasm, # 30 tab(s), Refills(s) 0, Pharmacy: [facility], 176.5, cm, 07/26/23 9:32:00 EST, Height/Length Dosing, 187.2, kg, 07/26/23 9:32:00 EST, Weight Dosing gabapentin, 300 mg = 1 cap(s), Oral, Daily, # 30 cap(s), Refills(s) 0, Pharmacy: [facility], 176.5, cm, 07/26/23 9:32:00 EST, Height/Length Dosing, 187.2, kg, 07/26/23 9:32:00 EST, Weight Dosing methylPREDNISolone, = 1 packet(s), Oral, As Directed, as directed on package labeling, X 6 day(s), # 21 tab(s), Refills(s) 0, Pharmacy: [facility], 176.5, cm, 07/26/23 9:32:00 EST, Height/Length Dosing, 187.2, kg, 07/26/23 9:32:00 EST, Weight Dosing 4. Class 3 obesity (E66.01: Morbid (severe) obesity due to excess calories) pt continues with diet Ordered: cyclobenzaprine, 10 mg = 1 tab(s), Oral, Bedtime, PRN for spasm, # 30 tab(s), Refills(s) 0, Pharmacy: [facility], 176.5, cm, 07/26/23 9:32:00 EST, Height/Length Dosing, 187.2, kg, 07/26/23 9:32:00 EST, Weight Dosing gabapentin, 300 mg = 1 cap(s), Oral, Daily, # 30 cap(s), Refills(s) 0, Pharmacy: [facility], 176.5, cm, 07/26/23 9:32:00 EST, Height/Length Dosing, 187.2, kg, 07/26/23 9:32:00 EST, Weight Dosing methylPREDNISolone, = 1 packet(s), Oral, As Directed, as directed on package labeling, X 6 day(s), # 21 tab(s), Refills(s) 0, Pharmacy: [facility], (more content not included)... Normal [facility] Comment on above: Result Comment: Elec tronically Signed By: Alexia Muhammad\.br\Date and Time Signed: 07/26/23 09:54 EST EMG Electromyographyon 07-10 EMG Electromyography [id number]#1 .00TIFF [facility] EMG Electromyography [id number]#1. 00TIFF [facility] Physician Referralon 023 Physician Referral [id number]# 1.00TIFF [facility] Ambulatory Visit Summaryon 1 Ambulatory [...] 9:20 AM EST With: Alexia Muhammad Where: [facility] Medicine [place] Normal [facility] Family Medicine Office/Clini c Noteon 06-21-2023 [...] day(s), # 30 tab(s), Refills(s) 1, Pharmacy: [facility], 176.5, cm, 06/21/23 9:41:00 EDT, Height/Length Dosing, 186.7, kg, 06/21/23 9:41:00 EDT, Weight Dosing meloxicam, 15 mg = 1 tab(s), Oral, Daily, X 30 day(s), # 30 tab(s), Refills(s) 0, Pharmacy: [facility], 176.5, cm, 06/21/23 9:41:00 EDT, Height/Length Dosing, 186.7, kg, 06/21/23 9:41:00 EDT, Weight Dosing meloxicam, 15 mg = 1 tab(s), Oral, Daily, # 30 tab(s), Refills(s) 1, Pharmacy: [facility], 176.5, cm, 05/22/23 9:51:00 EDT, Height/Length Dosing, 190.2, kg, 05/22/23 9:51:00 EDT, Weight Dosing 2. Left sciatic nerve pain (M54.32: Sciatica, left side) pt continues to have left sciatic nerve pain but it is improved Ordered: meloxicam, 15 mg = 1 tab(s), Oral, Daily, X 30 day(s), # 30 tab(s), Refills(s) 1, Pharmacy: [facility], 176.5, cm, 06/21/23 9:41:00 EDT, Height/Length Dosing, 186.7, kg, 06/21/23 9:41:00 EDT, Weight Dosing meloxicam, 15 mg = 1 tab(s), Oral, Daily, X 30 day(s), # 30 tab(s), Refills(s) 0, Pharmacy: [facility], 176.5, cm, 06/21/23 9:41:00 EDT, Height/Length Dosing, 186.7, kg, 06/21/23 9:41:00 EDT, Weight Dosing meloxicam, 15 mg = 1 tab(s), Oral, Daily, # 30 tab(s), Refills(s) 1, Pharmacy: [facility], 176.5, cm, 05/22/23 9:51:00 EDT, Height/Length Dosing, 190.2, kg, 05/22/23 9:51:00 EDT, Weight Dosing phentermine, 37.5 mg = 1 tab(s), Oral, Daily, X 30 day(s), # 30 tab(s), Refills(s) 0, Pharmacy: [facility], 176.5, cm, 05/22/23 9:51:00 EDT, Height/Length Dosing, 190.2, kg, 05/22/23 9:51:00 EDT, Weight Dosing [facility] External Ambulatory Referral 3. Lower extremity numbness (R20.0: Anesthesia of skin) EMG order sent to [facility] in [place] Ordered: [facility] External Ambulatory Referral 4. Morbid obesity due to excess calories (E66.01: Morbid (severe) obesity due to excess calories) BMI education complete Ordered: meloxicam, 15 mg = 1 tab(s), Oral, Daily, X 30 day(s), # 30 tab(s), Refills(s) 1, Pharmacy: [facility], 176.5, cm, 06/21/23 9:41:00 EDT, Height/Length Dosing, 186.7, kg, 06/21/23 9:41:00 EDT, Weight Dosing meloxicam, 15 mg = 1 tab(s), Oral, Daily, X 30 day(s), # 30 tab(s), Refills(s) 0, Pharmacy: [facility], 176.5, cm, 06/21/23 9:41:00 EDT, Height/Length Dosing, 186.7, kg, 06/21/23 9:41:00 EDT, Weight Dosing meloxicam, 15 mg = 1 tab(s), Oral, Daily, # 30 tab(s), Refills(s) 1, Pharmacy: [facility], 176.5, cm, 05/22/23 9:51:00 EDT, Height/Length Dosing, 190.2, kg, 05/22/23 9:51:00 EDT, Weight Dosing phentermine, 37.5 mg = 1 tab(s), Oral, Daily, X 30 day(s), # 30 tab(s), Refills(s) 0, Pharmacy: [facility], 176.5, cm, 05/22/23 9:51:00 EDT, Height/Length Dosing, 190.2, kg, 05/22/23 9:51:00 EDT, Weight Dosing 5. BMI 50.0-59.9, adult (Z68.43: Body mass index [BMI] 50.0-59.9, adult) BMI education complete 6. Non-smoker (Z78.9: Other specified health status) continue not smoking Ordered: meloxicam, 15 mg = 1 tab(s), Oral, Daily, X 30 day(s), # 30 tab(s), Refills(s) 1, Pharmacy: [facility], 176.5, cm, 06/21/23 9:41:00 EDT, Height/Length Dosing, 186.7, kg, 06/21/23 9:41:00 EDT, Weight Dosing meloxicam, 15 mg = 1 tab(s), Or (more content not included)... [facility] Comment on above: Result Comment: [...] 9:20 AM EDT With: Alexia Muhammad Where: [facility] Ambulatory Visit Summary RAKESH PIÑA :1975 Visit [...] 9:20 AM EDT With: Alexia Muhammad Where: [facility] Medicine Office/Clini c Noteon 05-22-2023 Family [...] in his legs at night. 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 all questions answered. RTC 4 weeks Ordered: meloxicam, 15 mg = 1 tab(s), Oral, Daily, # 30 tab(s), Refills(s) 1, Pharmacy: [facility], 176.5, cm, 05/22/23 9:51:00 EDT, Height/Length Dosing, 190.2, kg, 05/22/23 9:51:00 EDT, Weight Dosing 2. Left sciatic nerve pain (M54.32: Sciatica, left side) will order antiinflammatory. steroid did not give him any relief Ordered: meloxicam, 15 mg = 1 tab(s), Oral, Daily, # 30 tab(s), Refills(s) 1, Pharmacy: [facility], 176.5, cm, 05/22/23 9:51:00 EDT, Height/Length Dosing, 190.2, kg, 05/22/23 9:51:00 EDT, Weight Dosing phentermine, 37.5 mg = 1 tab(s), Oral, Daily, X 30 day(s), # 30 tab(s), Refills(s) 0 phentermine, 37.5 mg = 1 tab(s), Oral, Daily, X 30 day(s), # 30 tab(s), Refills(s) 0, Pharmacy: [facility], 176.5, cm, 05/22/23 9:51:00 EDT, Height/Length Dosing, 190.2, kg, 05/22/23 9:51:00 EDT, Weight Dosing 3. BMI 60.0-69.9, adult (Z68.44: Body mass index [BMI] 60.0-69.9, adult) BMI education complete Ordered: meloxicam, 15 mg = 1 tab(s), Oral, Daily, # 30 tab(s), Refills(s) 1, Pharmacy: [facility], 176.5, cm, 05/22/23 9:51:00 EDT, Height/Length Dosing, 190.2, kg, 05/22/23 9:51:00 EDT, Weight Dosing 4. Morbid obesity due to excess calories (E66.01: Morbid (severe) obesity due to excess calories) see above Ordered: meloxicam, 15 mg = 1 tab(s), Oral, Daily, # 30 tab(s), Refills(s) 1, Pharmacy: [facility], 176.5, cm, 05/22/23 9:51:00 EDT, Height/Length Dosing, 190.2, kg, 05/22/23 9:51:00 EDT, Weight Dosing phentermine, 37.5 mg = 1 tab(s), Oral, Daily, X 30 day(s), # 30 tab(s), Refills(s) 0 phentermine, 37.5 mg = 1 tab(s), Oral, Daily, X 30 day(s), # 30 tab(s), Refills(s) 0, Pharmacy: [facility], 176.5, cm, 05/22/23 9:51:00 EDT, Height/Length Dosing, 190.2, kg, 05/22/23 9:51:00 EDT, Weight Dosing 5. Non-smoker (Z78.9: Other specified health status) continue not smoking Ordered: meloxicam, 15 mg = 1 tab(s), Oral, Daily, # 30 tab(s), Refills(s) 1, Pharmacy: [facility], 176.5, cm, 05/22/23 9:51:00 EDT, Height/Length Dosing, 190.2, kg, 05/22/23 9:51:00 EDT, Weight Dosing phentermine, 37.5 mg = 1 tab(s), Oral, Daily, X 30 day(s), # 30 tab(s), Refills(s) 0 phentermine, 37.5 mg = 1 tab(s), Oral, Daily, X 30 day(s), # 30 tab(s), Refills(s) 0, Pharmacy: [facility], 176.5, cm, 05/22/23 9:51:00 EDT, Height/Length [...] Daily Allerg (more content not included)... Normal [facility] Comment on above: Result Comment: Elec tronically Signed By: Alexia Muhammad\.br\Date and Time Signed: 05/22/23 10:34 EDT Consenton 04-26-2023 Consent [id number] .00CD:127 Normal [facility] Family Medicine Office/Clini c Noteon 04-24-2023 [...] kenalog 60mg IM in office today. Normal [facility] Comment on above: Result Comment: Elec [...] 11:00 AM EDT With: Alexia Muhammad Where: [facility] [place] Normal [facility] Auto Diffon 03-19-2023 Basophils/100 WBC (Bld) 0.3 % Normal 0.0-2.0 [facility] Comment on above: Order Comment: Order Added by Discern Expert. Performed By: #### 2 256770, 2491291, 8306496, 4279855, 85438591 ####[facility] [address] [place] [address] Basophils/Leukocytes Auto (Bld) [Pure # fraction] 0.0 E9/L Normal 0.0-0.2 [facility] Comment on above: Order Comment: Order Added by Discern Expert. Performed By: #### 2 726783, 3062668, 1288606, 4437283, 11140490 ####[address] [address] Eosinophils/100 WBC (Bld) 2.1 % Normal 0.0-8.0 [facility] Comment on above: Order Comment: Order Added by Discern Expert. Performed By: #### 2 625582, 3032950, 7619727, 6833124, 18344251 ####[address] [place] [address] Eosinophils/Leukocytes Auto (Bld) [Pure # fraction] 0.2 E9/L Normal 0.0-0.5 [facility] Comment on above: Order Comment: Order Added by Discern Expert. Performed By: #### 2 030776, 5638901, 9113649, 2768068, 28561579 ####[address] [place] [address] Lymphocytes/100 WBC (Bld) 20.5 % Normal 14.0-50.0 [facility] Comment on above: Order Comment: Order Added by Discern Expert. Performed By: #### 2 425365, 6303231, 7045521, 7407839, 88253193 ####[address] [address] Lymphocytes/Leukocytes Auto (Bld) [Pure # fraction] 1.6 E9/L Normal 1.0-4.0 [facility] Comment on above: Order Comment: Order Added by Discern Expert. Performed By: #### 2 284115, 5547468, 7250041, 8178681, 64228620 ####[facility] [address] [place] [address] Monocytes/100 WBC (Bld) 8.7 % Normal 4.0-14.0 [facility] Comment on above: Order Comment: Order Added by Discern Expert. Performed By: #### 2 703980, 6395751, 0537044, 1964225, 31650850 ####[address] [place] [address] Monocytes/Leukocytes Auto (Bld) [Pure # fraction] 0.7 E9/L Normal 0.2-1.0 [facility] Comment on above: Order Comment: Order Added by Discern Expert. Performed By: #### 2 651238, 5307711, 8176448, 7907547, 30571991 ####[address] [address] Neutrophils/100 WBC (Bld) 68.4 % Normal 36.0-75.0 [facility] Comment on above: Order Comment: Order Added by Discern Expert. Performed By: #### 2 916340, 4777776, 2205098, 3244772, 87869768 ####[address] [place] [address] Neutrophils/Leukocytes Auto (Bld) [Pure # fraction] 5.3 E9/L Normal 2.0-7.5 [facility] Comment on above: Order Comment: Order Added by Discern Expert. Performed By: #### 2 942158, 6879284, 0541857, 7188668, 45170061 ####[facility] [address] [place] [address] CBC w/ Auto Diffon 3 Erythrocyte distribution width (RBC) [Ratio] 16.3 % High 10.9-14.2 [facility] Comment on above: Performed By: #### 2 111929, 6609108, 6397559, 0078751, 02850179 ####[facility] [address] [place] [address] Hematocrit (Bld) [Volume fraction] 43.7 % Normal 37.7-49.0 [facility] Comment on above: Performed By: #### 2 048037, 6366067, 4656302, 3188926, 72832734 ####[address] [address] Hemoglobin (Bld) [Mass/Vol] 14.4 g/dL Normal 13.5-17.5 [facility] Comment on above: Performed By: #### 2 289268, 6272939, 3582803, 3679227, 30138310 ####[address] [address] MCH (RBC) [Entitic mass] 27.9 pg Normal 27.0-34.0 [facility] Comment on above: Performed By: #### 2 218557, 8629624, 6269759, 5680842, 95480343 ####[facility] [address] [place] [address] MCHC (RBC) [Mass/Vol] 33.0 g/dL Normal 31.4-36.0 [facility] Comment on above: Performed By: #### 2 347026, 9276329, 6636879, 6855842, 45942682 ####[facility] [address] [place] [address] MCV (RBC) [Entitic vol] 84.8 fL Normal 80.0-100.0 [facility] Comment on above: Performed By: #### 2 504043, 0725706, 6584524, 4982702, 01415300 ####[address] [place] [address] Platelet mean volume (Bld) [Entitic vol] 7.7 fL Normal 6.4-10.8 [facility] Comment on above: Performed By: #### 2 456583, 5972196, 4699763, 9270617, 72200804 ####[facility] [address] [place] [address] Platelets (Bld) [#/Vol] 278.0 E9/L Normal 150.0-500.0 [facility] Comment on above: Performed By: #### 2 182698, 1225941, 0342862, 9093271, 48294046 ####[facility] [address] [place] [address] RBC (Bld) [#/Vol] 5.2 E12/L Normal 4.3-5.9 [facility] Comment on above: Performed By: #### 2 703657, 4358423, 1942991, 1939264, 91607992 ####[facility] [address] [place] [address] WBC corrected for nucl RBC Auto (Bld) [#/Vol] 7.7 E9/L Normal 4.0-11.0 [facility] Comment on above: Performed By: #### 2 110503, 1775254, 4443410, 2516246, 55910250 ####[facility] [address] [place] [address] CHEMISTRYOrdered By: SYSTEM SYSTEM on 03-19-2023 Cholesterol [...] day(s), # 21 tab(s), Refills(s) 0, Pharmacy: [facility] #6177, 176.5, cm, 03/19/23 13:15:00 EDT, Height/Length Dosing phentermine, 37.5 mg = 1 tab(s), Oral, Daily, # 30 tab(s), Refills(s) 0, Pharmacy: [facility]/pharmacy #6177, 176.5, cm, 03/19/23 13:15:00 EDT, Height/Length [...] day(s), # 21 tab(s), Refills(s) 0, Pharmacy: [facility]/pharmacy #6177, 176.5, cm, 03/19/23 13:15:00 EDT, Height/Length Dosing phentermine, 37.5 mg = 1 tab(s), Oral, Daily, # 30 tab(s), Refills(s) 0, Pharmacy: [facility]/pharmacy #6177, 176.5, cm, 03/19/23 13:15:00 EDT, Height/Length Dosing CBC w/ Auto Diff Cologuard Screening Test Lipid Panel PSA Screen, Total Thyroid Stimulating Hormone 3. Non-smoker (Z78.9: Other specified health status) continue not smoking Ordered: methylPREDNISolone, = 1 packet(s), Oral, As Directed, as directed on package labeling, X 6 day(s), # 21 tab(s), Refills(s) 0, Pharmacy: [facility]/pharmacy #6177, 176.5, cm, 03/19/23 13:15:00 EDT, Height/Length Dosing phentermine, 37.5 mg = 1 tab(s), Oral, Daily, # 30 tab(s), Refills(s) 0, Pharmacy: [facility]/pharmacy #6177, 176.5, cm, 03/19/23 13:15:00 EDT, Height/Length Dosing CBC w/ Auto Diff Cologuard Screening Test Lipid Panel PSA Screen, Total Thyroid Stimulating Hormone 4. Left sciatic nerve pain (M54.32: Sciatica, left side) medrol dose pack sent Ordered: methylPREDNISolone, = 1 packet(s), Oral, As Directed, as directed on package labeling, X 6 day(s), # 21 tab(s), Refills(s) 0, Pharmacy: [facility]/pharmacy #6177, 176.5, cm, 03/19/23 13:15:00 EDT, Height/Length Dosing phentermine, 37.5 mg = 1 tab(s), Oral, Daily, # 30 tab(s), Refills(s) 0, Pharmacy: [facility]/pharmacy #6177, 176.5, cm, 03/19/23 13:15:00 EDT, Height/Length Dosing Colon cancer screening (Z12.11: (more content not included)... Normal [facility] Comment on above: Result Comment: Elec tronically Signed By: Alexia Muhammad\.br\Date and Time Signed: 03/19/23 14:00 EDT Formson 03-19-2023 Forms [id number] .00CD:127 Normal [facility] HEMATOLOGYOrdered By: SYSTEM SYSTEM on 03-19-2023 [...] 5.2 E12/L Normal 4.3 - 5.9 E12/L [facility] HemeAutoSS WBC corrected for nucl RBC Auto (Bld) [#/Vol] 7.7 E9/L Normal 4.0 - 11.0 E9/L [facility] HemeAutoSS Lipid Panelon 03-19-2023 Cholesterol [Mass/Vol] 171 mg/dL Normal 120-200 [facility] Comment on above: Performed By: #### 2 556127, 4129398, 6730430, 8702284, 13126990 ####[facility] [address] [place] [address] Cholesterol in HDL [Mass/Vol] 39 mg/dL Invalid Interpretation Code [facility] Comment on above: Result Comment: HDL > or equal to 60 mg/dL: Low cardiovascular risk HDL < 40 mg/dL : High cardiovascular risk Performed By: #### 2 903104, 6750867, 9632223, 9136687, 31711709 ####[facility] [address] [place] [address] Cholesterol in LDL [Mass/Vol] 112 mg/dL Normal <=129 [facility] Comment on above: Performed By: #### 2 319512, 5004550, 6917659, 8379341, 27316458 ####[facility] [address] [place] [address] Cholesterol in VLDL [Mass/Vol] 19 mg/dL Normal 7-40 [facility] Comment on above: Performed By: #### 2 [id number], [id number], [id number], [id number], [id number] ####[facility] [address] [place] [address] Triglyceride [Mass/Vol] 94 mg/dL Normal <=149 [facility] Comment on above: Performed By: #### 2 [id number], [id number], [id number], [id number], [id number] ####[facility] [address] [place] [address] PSA Screen, Totalon 03-19-20 Prostate specific Ag [Mass/Vol] 0.9 ng/mL Normal 0.1-3.5 [facility] Comment on above: Result Comment: The concentration of PSA determined by different manufacturers can vary due to differences in assay methods and reagent specificity. Values obtained from different assay methods cannot be used interchangeably. The methodology used for this result was chemiluminescence using [employer]'s [employer] PSA reagent. Performed By: #### 2 [id number], [id number], [id number], [id number], [id number] ####[facility] [address] [place] [address] TSHon 03-19-2023 TSH Qn 2.03 m[IU]/L Normal 0.34-5.60 [facility] Comment on above: Performed By: #### 2 [id number], [id number], [id number], [id number], [id number] ####[facility] [address] [place], [place] [address] [facility] SARS-CoV-2 (COVID-19) RNA BETHANY+probe Ql (Unsp spec) Not detected Normal NOT DETECTED [facility] Comment on above: Result Comment: When [...] for this test is supported by the [employer] Building [employer] Engineer of Health and Human Service's declaration that [...] used). Performed By: #### C VDTBH #### [facility] [address] [address] [address] Mynor Yun GROUP A STREP CULTUREon 07-11 S. pyogenes Ag Ql (Unsp spec) Culture Observations: NEGATIVE FOR GROUP A STREPTOCOCCUS. Normal [facility] Comment on above: Performed By: #### G RASTCX #### [facility] [address] [place] [address] Dr. Mynor Yun INFLUENZA A AND B AGon 07-28 INFLUANEGH SEE BELOW Normal [facility] Comment on above: Result Comment: Nega tive for Flu A protein angiten. Infection due to Flu A cannot be ruled out. Flu A angiten in the sample may be below the detection limit of the test. Performed By: #### I NFLUAB #### [facility] [address] [place] [address] Dr. Mynor Yun INFLUBNEGH SEE BELOW Normal [facility] Comment on above: Result Comment: Nega tive for Flu B protein antigen. Infection due to Flu B cannot be ruled out. Flu B antigen in the sample may be below the detection limit of the test. Performed By: #### I NFLUAB #### [facility] [address] [place] [address] Dr. Mynor Yun INFLUENZA A AG Negative Normal NEGATIVE SEE COMMENT [facility] Comment on above: Performed By: #### I NFLUAB #### [facility] [address] [place] [address] Dr. Mynor Yun INFLUENZA B AG Negative Normal NEGATIVE SEE COMMENT [facility] Comment on above: Performed By: #### I NFLUAB #### [facility] [address] [place] [address] Dr. Mynor Yun INTERNAL CONTROLS Within Normal Limits Normal Wi thin Normal Limits [facility] Comment on above: Performed By: #### I NFLUAB #### [facility] [address] [place] [address] Dr. Mynor Yun STREPT SCREENon 07-28-2022 STREP SCREEN A Negative Normal NEGATIVE [facility] Comment on above: Performed By: #### S SCRN #### [facility] [address] [place] [address] Dr. Mynor Yun XR SINUSES 3 VIEWS [...] by: KELLIE SMALLS Date: 2022-02-01 09:58 Normal [facility] HAND LEFT 3 [facility] 12-29-2021 HAND LEFT 3 [facility] Department of Radiology [address] [place] [id number] Patient Name: RAKESH PIÑA : 1975 Sex: M Age: Race: White Pt. Location: 84 Patient Status: D Ordered Date: 12/29/2021 11:45:00 AM Completed Date: 12/29/2021 11:50 AM Requesting Provider: LORI DALLAS Attending Provider: LORI DALLAS Report Copy To: Signs & Symptoms: M79.642 Pain in left hand I10 History: Comments: Evaluate Exam: HAND LEFT 3 [facility] HAND LEFT 3 [facility] 12/29/2021 11:50 AM CLINICAL INDICATIONS: M79.642 [...] alignment. Electronically signed: Heather Montana. Transcribed by: [email or web address], User Resident: Electronically Signed by: HEATHER MONTANA @ 12/31/2021 08:55 AM Normal [facility] Comment on above: Order Comment: Evalu ate HAND LEFT 3 Son 12-08-2021 HAND LEFT 3 [facility] Department of Radiology [address] [place] [id number] Patient Name: RAKESH PIÑA : 1975 Sex: M Age: Race: White Pt. Location: Patient Status: D Ordered Date: 12/08/2021 1:25:00 PM Completed Date: 12/08/2021 01:29 PM Requesting Provider: LORI DALLAS Attending Provider: LORI DALLAS Report Copy To: Signs & Symptoms: M79.642 Pain in left hand I10 History: [place] Comments: Evaluate Exam: HAND LEFT 3 S [...] bridging. Electronically signed: Ronaldo Major. Transcribed by: [email or web address], User Resident: Electronically Signed by: RONALDO MAJOR @ 12/09/2021 04:04 PM Normal [facility] Comment on above: Order Comment: Evalu ate HAND LEFT 3 [facility] 11-14-2021 HAND LEFT 3 [facility] Department of Radiology [address] [place] [id number] Patient Name: RAKESH PIÑA : 1975 [...] PA, Lateral, Oblique Exam: HAND LEFT 3 [facility] HAND LEFT 3 S 11/14/2021 1:58 [...] fracture. Electronically signed: Ramirez Smith. Transcribed by: [email or web address], User Resident: Electronically Signed by: RAMIREZ SMITH @ 11/14/2021 08:02 PM Normal [facility] Comment on above: Order Comment: Views (X-RAY, HAND): PA, Lateral, Oblique TESTOSTERONE, TOTALon 2021 Testosterone [Mass/Vol] 411 ng/dL Normal 264-916 [facility] Comment on above: Result Comment: Adul t male reference interval is based on a population of healthy nonobese males (BMI <30) between 19 and 39 years old. Iron et.al. JCEM 2017,102;5276-4998. PMID: [id number]. Performed By: #### T ESTTOT #### [facility] [address] [place] [address] Dr. Mynor Yun CBC AUTO DIFFon 11-11-2021 BASO # 0.0 103/ul Normal 0.0-0.1 [facility] Comment on above: Performed By: #### C BC #### [facility] [address] [place] [address] Dr. Mynor Yun Basophils/100 WBC (Bld) 0.2 % Normal 0.2-2.0 [facility] Comment on above: Performed By: #### C BC #### [facility] [address] [place] [address] Dr. Mynor Yun EO # 0.1 103/ul Normal 0.0-0.7 [facility] Comment on above: Performed By: #### C BC #### [facility] [address] [place] [address] Dr. Mynor Yun Eosinophils/100 WBC (Bld) 1.2 % Normal 0.9-7.0 [facility] Comment on above: Performed By: #### C BC #### [facility] [address] [place] [address] Dr. Mynor Yun Erythrocyte distribution width (RBC) [Ratio] 14.3 % Normal 11.0-15.0 [facility] Comment on above: Performed By: #### C BC #### [facility] [address] [place] [address] Dr. Mynor Yun Hematocrit (Bld) [Volume fraction] 47.3 % Normal 42.0-54.0 [facility] Comment on above: Performed By: #### C BC #### [facility] [address] [place] [address] Dr. Mynor Yun Hemoglobin (Bld) [Mass/Vol] 15.2 g/dL Normal 14.0-18.0 [facility] Comment on above: Performed By: #### C BC #### [facility] [address] [place] [address] Dr. Mynor Yun IG # 0.03 10e3/ul Normal 0.00-0.03 [facility] Comment on above: Performed By: #### C BC #### [facility] [address] [place] [address] Dr. Mynor Yun IG % 0.3 % Normal 0.0-0.5 [facility] Comment on above: Performed By: #### C BC #### [facility] [address] [place] [address] Dr. Mynor Yun LYMPH # 1.6 103/ul Normal 1.2-3.8 [facility] Comment on above: Performed By: #### C BC #### [facility] [address] [place] [address] Dr. Mynor Yun Lymphocytes/100 WBC (Bld) 18.4 % Critically low 20.5-60.0 [facility] Comment on above: Performed By: #### C BC #### [facility] [address] [place] [address] Dr. Mynor Yun MANUAL DIFF REQ NO Normal [facility] Comment on above: Performed By: #### C BC #### [facility] [address] [place] [address] Dr. Mynor Yun MCH (RBC) [Entitic mass] 28.8 pg Normal 25.9-34.0 [facility] Comment on above: Performed By: #### C BC #### [facility] [address] [place] [address] Dr. Mynor Yun MCHC (RBC) [Mass/Vol] 32.1 g/dL Normal 29.9-35.2 [facility] Comment on above: Performed By: #### C BC #### [facility] [address] [place] [address] Dr. Mynor Yun MCV (RBC) [Entitic vol] 89.8 fL Normal 80.0-94.0 [facility] Comment on above: Performed By: #### C BC #### [facility] [address] [place] [address] Dr. Mynor Yun MONO # 0.7 103/ul Normal 0.3-0.8 [facility] Comment on above: Performed By: #### C BC #### [facility] [address] [place] [address] Dr. Mynor Yun Monocytes/100 WBC (Bld) 8.4 % Normal 1.7-12.0 [facility] Comment on above: Performed By: #### C BC #### [facility] [address] [place] [address] Dr. Mynor Yun NEUT # 6.2 103/ul Normal 1.4-6.5 [facility] Comment on above: Performed By: #### C BC #### [facility] [address] [place] [address] Dr. Mynor Yun Neutrophils/100 WBC (Bld) 71.5 % Normal 43.0-75.0 [facility] Comment on above: Performed By: #### C BC #### [facility] [address] [place] [address] Dr. Mynor Yun Platelet mean volume (Bld) [Entitic vol] 8.7 fL Critically low 9.5-13.5 [facility] Comment on above: Performed By: #### C BC #### [facility] [address] [address] [address] Mynor Yun PLT 263 103/ul Normal 150-450 [facility] Comment on above: Performed By: #### C BC #### [facility] [address] [address] [address] Mynor Yun RBC 5.27 106/ul Normal 4.70-6.10 [facility] Comment on above: Performed By: #### C BC #### [facility] [address] [address] [address] Mynor Yun WBC 8.7 103/ul Normal 4.0-11.0 [facility] Comment on above: Performed By: #### C BC #### [facility] [address] [place] [address] Dr. Mynor Yun LIPID PROFILEon 11-11-2021 CHOL-HDL RATIO NORM SEE BELOW Normal [facility] Comment on above: Result Comment: 3.3 - 4.4 LOW RISK 4.4 - 7.1 AVERAGE RISK 7.1 - 11.0 MODERATE RISK >11.0 HIGH RISK Performed By: #### S SCRN #### [facility] [address] [place] [address] Dr. Mynor Yun Cholesterol [Mass/Vol] 129 mg/dL Normal <=200 [facility] Comment on above: Performed By: #### S SCRN #### [facility] [address] [place] [address] Dr. Mynor Yun Cholesterol in HDL [Mass/Vol] 34 mg/dL Normal [facility] Comment on above: Performed By: #### S SCRN #### [facility] [address] [place] [address] Dr. Mynor Yun Cholesterol in LDL [Mass/Vol] 82.2 mg/dL Normal [facility] Comment on above: Performed By: #### S SCRN #### [facility] [address] [place] [address] Dr. Mynor Yun Cholesterol.total/Chol esterol in HDL [Mass ratio] 3.8 {ratio} Normal [facility] Comment on above: Performed By: #### S SCRN #### [facility] [address] [address] [address] Mynor Yun HDL NORMAL > or = 60 mg/dl - LO W CARDIOVASCULAR RISK <40 mg/dl - HIGH CARDIOVASCULAR RISK Normal [facility] Comment on above: Performed By: #### S SCRN #### [facility] [address] [address] [address] Mynor Yun LDL CALC NORMAL SEE BELOW Normal [facility] Comment on above: Result Comment: <100 mg/dl OPTIMAL 100 - 129 mg/dl NEAR OR ABOVE OPTIMAL 130 - 159 mg/dl BORDERLINE HIGH 160 - 189 mg/dl HIGH >190 mg/dl VERY HIGH Performed By: #### S SCRN #### [facility] [address] [place] [address] Dr. Mynor Yun Triglyceride [Mass/Vol] 64 mg/dL Normal <=150 [facility] Comment on above: Performed By: #### S SCRN #### [facility] [address] [address] [address] Mynor Yun VLDL CALC 12.8 mg/dL Normal [facility] Comment on above: Performed By: #### S SCRN #### [facility] [address] [place] [address] Dr. Mynor Yun PROF 14(COMP METB)on 022 Albumin [Mass/Vol] 3.8 g/dL Normal 3.5-5.0 [facility] Comment on above: Performed By: #### T SH, LIPID, CMP #### [facility] [address] [place] [address] Dr. Mynor Yun Albumin/Globulin [Mass ratio] 0.9 {ratio} Normal [facility] Comment on above: Performed By: #### T SH, LIPID, CMP #### [facility] [address] [place] [address] Dr. Mynor Yun ALP [Catalytic activity/Vol] 76 U/L Normal 38-126 [facility] Comment on above: Performed By: #### T SH, LIPID, CMP #### [facility] [address] [place] [address] Dr. Mynor Yun ALT [Catalytic activity/Vol] 49 U/L Normal 21-72 [facility] Comment on above: Performed By: #### T SAMARIA, LIPID, CMP #### [facility] [address] [place] [address] Dr. Mynor Yun Anion gap [Moles/Vol] 11.2 mmol/L Normal [facility] Comment on above: Performed By: #### T SAMARIA, LIPID, CMP #### [facility] [address] [place] [address] Dr. Mynor Yun AST [Catalytic activity/Vol] 31 U/L Normal 17-59 [facility] Comment on above: Performed By: #### T SAMARIA LIPID, CMP #### [facility] [address] [place] [address] Dr. Mynor Yun Bilirubin [Mass/Vol] 0.5 mg/dL Normal 0.2-1.3 [facility] Comment on above: Performed By: #### T SAMARIA, LIPID, CMP #### [facility] [address] [place] [address] Dr. Mynor Yun Calcium [Mass/Vol] 9.0 mg/dL Normal 8.4-10.2 [facility] Comment on above: Performed By: #### T SAMARIA LIPID, CMP #### [facility] [address] [place] [address] Dr. Mynor Yun Chloride [Moles/Vol] 104 mmol/L Normal 98-107 [facility] Comment on above: Performed By: #### T SAMARIA, LIPID, CMP #### [facility] [address] [place] [address] Dr. Mynor Yun CO2 [Moles/Vol] 30.6 mmol/L Critically high 22.0-30.0 [facility] Comment on above: Performed By: #### T SAMARIA, LIPID, CMP #### [facility] [address] [place] [address] Dr. Mynor Yun Creatinine [Mass/Vol] 0.95 mg/dL Normal 0.66-1.25 [facility] Comment on above: Performed By: #### T SAMARIA, LIPID, CMP #### [facility] [address] [address] [address] Mynor Yun EGFR-AF MARSHALLESE >60 Normal >=60 [facility] Comment on above: Performed By: #### T SH, LIPID, CMP #### [facility] [address] [address] [address] Mynor Yun EGFR-NON AF MARSHALLESE >60 Normal >=60 [facility] Comment on above: Performed By: #### T SH, LIPID, CMP #### [facility] [address] [address] [address] Mynor Yun Globulin (S) [Mass/Vol] 4.3 g/dL Normal [facility] Comment on above: Performed By: #### T SAMARIA, LIPID, CMP #### [facility] [address] [place] [address] Dr. Mynor Yun Glucose [Mass/Vol] 104 mg/dL Normal 74-106 [facility] Comment on above: Performed By: #### T SAMARIA, LIPID, CMP #### [facility] [address] [place] [address] Dr. Mynor Yun Potassium [Moles/Vol] 3.8 mmol/L Normal 3.4-5.0 [facility] Comment on above: Performed By: #### T SAMARIA, LIPID, CMP #### [facility] [address] [place] [address] Dr. Mynor Yun Protein [Mass/Vol] 8.1 g/dL Normal 6.1-8.2 [facility] Comment on above: Performed By: #### T SH, LIPID, CMP #### [facility] [address] [place] [address] Dr. Mynor Yun Sodium [Moles/Vol] 142 mmol/L Normal 137-145 [facility] Comment on above: Performed By: #### T SH, LIPID, CMP #### [facility] [address] [place] [address] Dr. Mynor Yun Urea nitrogen [Mass/Vol] 11.0 mg/dL Normal 9.0-20.0 [facility] Comment on above: Performed By: #### T SH, LIPID, CMP #### [facility] [address] [address] [address] Mynor Yun Urea nitrogen/Creatinine [Mass ratio] 11.6 mg/mg Normal [facility] Comment on above: Performed By: #### T SH, LIPID, CMP #### [facility] [address] [address] [address] Mynor Yun TSHon 11-11-2021 TSH 1.612 uIU/mL Normal 0.470-4.[address] [facility] Comment on above: Performed By: #### T SH, LIPID, CMP #### [facility] [address] [address] [address] Mynor Yun TSH RANGE SEE BELOW Normal [facility] Comment on above: Result Comment: <0.3 4 UIU/ml HYPERTHYROID 0.34-5.60 UIU/ml EUTHYROID >5.60 UIU/ml HYPOTHYROID Performed By: #### T SH, LIPID, CMP #### [facility] [address] [address] [address] Mynor Yun Encounters Encounter Date Encounter Type Care Provider Facility Start: 08-23-2023 End: 08-24-2023 ambulatory Alexia L Laurent Facility:[facility] Start: 07-26-2023 End: 07-27-2023 ambulatory Alexia L Laurent Facility:[facility] Start: 06-21-2023 End: 06-22-2023 ambulatory Alexia L Laurent Facility:[facility] Start: 05-22-2023 End: 05-23-2023 ambulatory Alexia L Laurent Facility:[facility] Start: 04-24-2023 End: 04-25-2023 ambulatory Alexia L Laurent Facility:[facility] Start: 03-19-2023 End: 03-20-2023 ambulatory Alexia L Laurent Facility:[facility] Start: 03-19-2023 End: 03-20-2023 ambulatory Alexia L Laurent Facility:[facility] Start: 03-19-2023 End: 03-19-2023 Lab Drop off Alexia L Laurent [facility] Start: 03-15-2023 ambulatory Alexia Laurent Facility:[facility] Start: 07-28-2022 End: 07-28-[address] LULU BLANK Facility:[facility] Start: 02-01-2022 End: 02-02-[address] LULU BLANK Facility:[facility] Start: 11-15-2021 Encounter for genera l adult medical examination without abnormal findings DR LULU BLANK [facility] Start: 11-11-2021 End: 11-12-[address] LULU BLANK Facility:[facility] Start: 11-11-2021 End: 11-12-2021 Encounter for general adult medical examination without abnormal findings DR LULU BLANK Facility:[facility] Start: 11-10-2021 End: 11-11-2021 ambulatory MAZIN CANO Facility:[facility] Procedures Date Procedure Procedure Detail Performing Clinician Gastric sleeve Alexia Laurent Comment on above: 2009 Immunizations Immunization Date Immunization Notes Care Provider Fa [facility] 06-07-2022 influenza virus vacc ine, unspecified formulation Alexia Laurent [facility] 11-12-2020 SARS-CoV-2 (COVID-19 ) mRNA BNT-162b2 vax Alexia Laurent [facility] 10-22-2020 SARS-CoV-2 (COVID-19 ) mRNA BNT-162f5 vax Alexia Laurent [facility] 03-10-2019 pneumococcal polysaccharide vaccine, 23 valent Alexia Laurent [facility] Payers Date Payer Category Payer Unknown [id number] 2019 Unknown [id number] 1975 Unknown [id number] 2.16.84 [id number] 1975 Unknown [id number] 2.16.84 [id number] 1975 Unknown [id number] 2.16.84 [id number] 1975 Unknown [id number] 2.16.84 [id number] 1975 Unknown [id number] 2.16.8 [id number] 1975 Unknown [id number] 2.16.8 [id number] 1975 Unknown [id number] 2.16.8 [id number] 1975 Unknown [id number] 2.16.8 [id number] 1975 Unknown [id number] 2.16.8 [id number] 1975 Unknown [id number] 2.16.8 [id number] 1975 Unknown [id number] 2.16.8 [id number] 1975 Unknown [id number] 2.16.8 [id number] 1957 Medicare [id number] 1957 Unknown [id number] Social History Date Type Detail Facility Start: 03-19-2023 Tobacco smoking status Ex-smoker (fi nding) [facility] Tobacco smoking status Never [facility] Sex Assigned At Male [facility] Clinical Note 11-10-2021 Note Date & [...] authenticated by: KELLIE SMALLS Date: 2021-11-10 13:16 [facility] Evaluation + Plan note Note Date & Type Note [facility] Evaluation + Plan note Future Appointments Appointment Date:04/23/2023 11:00:00 AM Scheduled Provider:Alexia Muhammad Location:[facility] Appointment Type: Open [facility] Hospital course Narrative Note Date & Type Note Facility Hospital course Narrative No data available for this section [facility] Hospital Discharge instructions Note Date & Type Note [facility] Hospital Discharge instructions No data available for this section [facility] Progress note Note Date & Type Note [facility] Progress note No data available for this section [facility] Summary Purpose Family History No Family History Records FoundNo Family History Records FoundNo Family History Records Found Advance Directives No Advanced Directives Records FoundNo Advanced Directives Records FoundNo Advanced Directives Records Found Additional Source Comments (unrecognized sect ion and content) No Status Records FoundNo Status Records FoundNo Status Records Found INFORMATION SOURCE (unrecogn ized section and content) DATE CREATED AUTHOR 01/28/2022 [facility] DATE CREATED AUTHOR AUTHOR'S ORGANIZ ATION 08/10/2022 [facility] DATE CREATED AUTHOR AUTHOR'S ORGANIZ ATION 10/30/2023 [facility] Patient Care team informatio n (unrecognized section and content) Personnel Name: Alexia Muhammad Address: Address: [address] [place] [phone] FOR RECORDS PERTAINING TO PATIENTS WHO ARE [...] BE BASED ON THE PRIMARY CLINICAL RECORDS. [facility]. provides no warranty or guarantee of the accuracy or completeness of information in this document.
== END 2023-11-08 09:15 | disposition home or self-care (01) ==
LOC: RAD 09:20
PROVIDERS: PCP Nurse Practitioner; Visit Provider Anesthesiology
DX: M54.50 Low back pain, unspecified (principal); M25.552 Pain in left hip
CPT/HCPCS: 72114; 72220

== ENCOUNTER 2023-12-03 09:12 | Day surgery (SDC) | payer BC, SELFPAY ==
--- OUTSIDE RECORDS SUMMARY | 2023-12-03 09:17 | XMS_ITS | CCD ---
Author Organization [facility] Care Team Providers Care Soakers Supervisor Name Role Phone MAZIN CANO Admitting Unavailable RACHAEL, MAZIN Attending Unavailable BLANK, DR LULU Tejeda Primary Care Unavailable WEST, DR KELLIE Benavides Consulting Unavailable RACHAEL, MAZIN Consulting Unavailable SHEILA, DR LULU Tejeda Admitting [...] BLANK, DR LULU Tejeda Primary Care Unavailable TRAM, FOZIA Consulting Unavailable TRAM, FOZIA Admitting Unavailable TRAM, FOZIA Attending Unavailable Laurent, Alexia Sewell Primary Care Physician Laurent, Alexia Sewell Attending Unavailable Laurent, Alexia Sewell Attending Unavailable Laurent, Alexia Sewell Admitting Unavailable Laurent, Alexia Sewell Admitting Unavailable Laurent, Alexia Sewell Attending Unavailable Laurent, Alexia Sewell Attending Unavailable Laurent, Alexia Sewell Attending Unavailable Laurent, Alexia Sewell Attending Unavailable Laurent, Alexia Sewell Attending Unavailable Laurent, Alexia Sewell Attending Unavailable Wilbert Buckner MD Attending Unavailable Medications Current Medications Medication Drug [...] day(s), # 21 tab(s), Refills(s) 0, Pharmacy: [facility]/pharmacy #[id number], 176.5, cm, 03/19/23 13:15:00 [...] day(s), # 30 tab(s), Refills(s) 0, Pharmacy: [facility]/pharmacy #[id number], 176.5, cm, 03/19/23 13:15:00 [...] Test Name Value Interpretation Reference Range Facility Consultation Noteon 11-07-19 24 Consultation Note [id number]#1 .00TIFF Normal [facility] PT - Progress Noteson 2023 PT - Progress Notes [id number]#1 .00TIFF Normal [facility] RAD - MISCon 10-29-2023 RAD - MISC [id number]#1 .00TIFF Normal [facility] Retail - Clinical Noteon Retail - Clinical Note [id number]#1 .00TIFF Normal [facility] Plan of Care - PT/OT/Speecho n 09-06-2023 Plan of Care - PT/OT/Speech [id number]#1 .00TIFF Normal [facility] Physician Referralon 023 Physician Referral [id number]# 1.00TIFF Normal [facility] Testost Totalon 08-25-2023 Testosterone [Mass/Vol] 321 ng/dL Invalid Interpretation Code [id number] [facility] Comment on above: Result Comment: Adul t male reference interval is based on a population of healthy nonobese males (BMI <30) between 19 and 39 years old. Iron et.al. JCEM 2017,102;1138-6868. PMID: [id number]. Performed at: [facility] [id number] PhD Domneic Rider Performed By: #### 2 [id number], [id number], [id number] ####[facility] [address] [place] [address] Reminderson 08-24-2023 Reminders - From: Alexia Muhammad [...] left detailed message for patient below Normal [facility] Family Medicine Office/Clini c Noteon 08-23-2023 Family [...] was in slow motion. 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 He would [...] he would like referral to PT at [facility] for bakc/leg pain. gabapentin and muscles relaxers did not help. 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 all questions answered. RTC as needed Ordered: cyclobenzaprine, 10 mg = 1 tab(s), Oral, Bedtime, PRN for spasm, # 30 tab(s), Refills(s) 0, Pharmacy: [facility], 176.5, cm, 07/26/23 9:32:00 EST, Height/Length Dosing, 187.2, kg, 07/26/23 9:32:00 EST, Weight Dosing gabapentin, 300 mg = 1 cap(s), Oral, Daily, # 30 cap(s), Refills(s) 0, Pharmacy: [facility], 176.5, cm, 07/26/23 9:32:00 EST, Height/Length Dosing, 187.2, kg, 07/26/23 9:32:00 EST, Weight Dosing 2. Fatigue (R53.83: Other fatigue) labs drawn today Ordered: Lab Specimen Collect [id number] Testosterone Level Total 3. Hypogonadism male (E29.1: Testicular hypofunction) testosterone ordered Ordered: Lab Specimen Collect [id number] Testosterone Level Total 4. BMI 60.0-69.9, adult (Z68.44: Body mass index [BMI] 60.0-69.9, adult) bmi education complete Ordered: cyclobenzaprine, 10 mg = 1 tab(s), Oral, Bedtime, PRN for spasm, # 30 tab(s), Refills(s) 0, Pharmacy: [facility], 176.5, cm, 07/26/23 9:32:00 EST, Height/Length Dosing, 187.2, kg, 07/26/23 9:32:00 EST, Weight Dosing gabapentin, 300 mg = 1 cap(s), Oral, Daily, # 30 cap(s), Refills(s) 0, Pharmacy: [facility], 176.5, cm, 07/26/23 9:32:00 EST, Height/Length Dosing, 187.2, kg, 07/26/23 9:32:00 EST, Weight Dosing Testosterone Level Total Vitamin B12 Level Vitamin D 25 Hydroxy Follow-up No qualifying data available Patient Education Obesity, Adult, Onur-vn-Jotj Problem List/Past Medical History Ongoing Encounter for [...] ago Tob (more content not included)... Normal [facility] Comment on above: Result Comment: Elec tronically [...] food choices, such as grocery stores and [employer]. What are the signs or symptoms? The [...] How much exercise you get. ? Take skqv-vhm-ysbfvgh and prescription medicines only as told by [...] with yo (more content not included)... Normal [facility] Vit B12on 08-23-2023 Cobalamin (Vitamin B12) [Mass/Vol] 301 pg/mL Normal 50-1500 [facility] Comment on above: Performed By: #### 2 733695, [id number], [id number] ####[facility] [address] [place] [address] Vitamin D 25 Hydroxyon 08-23 Vitamin D 25 Hydroxy 57.7 ng/mL Normal 30.0-100.0 [facility] Comment on above: Performed By: #### 2 275048, [id number], [id number] ####[facility] [address] [place] [address] Ambulatory Visit Summaryon 1 09-25-2022 Ambulatory Visit Summary RAKESH PIÑA Janelle :1975 Visit Date:07/26/2023 Ambulatory Visit Instructions Your [...] 9:20 AM EST With: Alexia Muhammad Where: [facility] Normal [facility] Office/Clini c Noteon 07-26-2023 Family Medicine Office/Clinic [...] spasm, # 30 tab(s), Refills(s) 0, Pharmacy: [facility], 176.5, cm, 07/26/23 9:32:00 EST, Height/Length Dosing, 187.2, kg, 07/26/23 9:32:00 EST, Weight Dosing gabapentin, 300 mg = 1 cap(s), Oral, Daily, # 30 cap(s), Refills(s) 0, Pharmacy: [facility], 176.5, cm, 07/26/23 9:32:00 EST, Height/Length Dosing, 187.2, kg, 07/26/23 9:32:00 EST, Weight Dosing methylPREDNISolone, = 1 packet(s), Oral, As Directed, as directed on package labeling, X 6 day(s), # 21 tab(s), Refills(s) 0, Pharmacy: [facility], 176.5, cm, 07/26/23 9:32:00 EST, Height/Length [...] spasm, # 30 tab(s), Refills(s) 0, Pharmacy: [facility], 176.5, cm, 07/26/23 9:32:00 EST, Height/Length Dosing, 187.2, kg, 07/26/23 9:32:00 EST, Weight Dosing gabapentin, 300 mg = 1 cap(s), Oral, Daily, # 30 cap(s), Refills(s) 0, Pharmacy: [facility], 176.5, cm, 07/26/23 9:32:00 EST, Height/Length Dosing, 187.2, kg, 07/26/23 9:32:00 EST, Weight Dosing methylPREDNISolone, = 1 packet(s), Oral, As Directed, as directed on package labeling, X 6 day(s), # 21 tab(s), Refills(s) 0, Pharmacy: [facility], 176.5, cm, 07/26/23 9:32:00 EST, Height/Length Dosing, 187.2, kg, 07/26/23 9:32:00 EST, Weight Dosing 3. Numbness and tingling of foot (R20.0: Anesthesia of skin) discussed ENG results Ordered: cyclobenzaprine, 10 mg = 1 tab(s), Oral, Bedtime, PRN for spasm, # 30 tab(s), Refills(s) 0, Pharmacy: [facility], 176.5, cm, 07/26/23 9:32:00 EST, Height/Length Dosing, 187.2, kg, 07/26/23 9:32:00 EST, Weight Dosing gabapentin, 300 mg = 1 cap(s), Oral, Daily, # 30 cap(s), Refills(s) 0, Pharmacy: [facility], 176.5, cm, 07/26/23 9:32:00 EST, Height/Length Dosing, 187.2, kg, 07/26/23 9:32:00 EST, Weight Dosing methylPREDNISolone, = 1 packet(s), Oral, As Directed, as directed on package labeling, X 6 day(s), # 21 tab(s), Refills(s) 0, Pharmacy: [facility], 176.5, cm, 07/26/23 9:32:00 EST, Height/Length Dosing, 187.2, kg, 07/26/23 9:32:00 EST, Weight Dosing 4. Class 3 obesity (E66.01: Morbid (severe) obesity due to excess calories) pt continues with diet Ordered: cyclobenzaprine, 10 mg = 1 tab(s), Oral, Bedtime, PRN for spasm, # 30 tab(s), Refills(s) 0, Pharmacy: [facility], 176.5, cm, 07/26/23 9:32:00 EST, Height/Length Dosing, 187.2, kg, 07/26/23 9:32:00 EST, Weight Dosing gabapentin, 300 mg = 1 cap(s), Oral, Daily, # 30 cap(s), Refills(s) 0, Pharmacy: [facility], 176.5, cm, 07/26/23 9:32:00 EST, Height/Length Dosing, 187.2, kg, 07/26/23 9:32:00 EST, Weight Dosing methylPREDNISolone, = 1 packet(s), Oral, As Directed, as directed on package labeling, X 6 day(s), # 21 tab(s), Refills(s) 0, Pharmacy: [facility], (more content not included)... [facility] Comment on above: Result Comment: Elec tronically Signed By: Alexia Muhammad\.br\Date and Time Signed: 07/26/23 09:54 EST EMG Electromyographyon 07-10 EMG Electromyography [id number]#1 .00TIFF [facility] EMG Electromyography [id number]#1. 00TIFF [facility] Physician Referralon 023 Physician Referral [id number]# 1.00TIFF [facility] Ambulatory Visit Summaryon 1 Ambulatory Visit [...] 9:20 AM EST With: Alexia Muhammad Where[facility] Medicine Office/Clini c Noteon 06-21-2023 Family Medicine [...] day(s), # 30 tab(s), Refills(s) 1, Pharmacy: [facility], 176.5, cm, 06/21/23 9:41:00 EDT, Height/Length Dosing, 186.7, kg, 06/21/23 9:41:00 EDT, Weight Dosing meloxicam, 15 mg = 1 tab(s), Oral, Daily, X 30 day(s), # 30 tab(s), Refills(s) 0, Pharmacy: [facility], 176.5, cm, 06/21/23 9:41:00 EDT, Height/Length Dosing, 186.7, kg, 06/21/23 9:41:00 EDT, Weight Dosing meloxicam, 15 mg = 1 tab(s), Oral, Daily, # 30 tab(s), Refills(s) 1, Pharmacy: [facility], 176.5, cm, 05/22/23 9:51:00 EDT, Height/Length Dosing, 190.2, kg, 05/22/23 9:51:00 EDT, Weight Dosing 2. Left sciatic nerve pain (M54.32: Sciatica, left side) pt continues to have left sciatic nerve pain but it is improved Ordered: meloxicam, 15 mg = 1 tab(s), Oral, Daily, X 30 day(s), # 30 tab(s), Refills(s) 1, Pharmacy: [facility], 176.5, cm, 06/21/23 9:41:00 EDT, Height/Length Dosing, 186.7, kg, 06/21/23 9:41:00 EDT, Weight Dosing meloxicam, 15 mg = 1 tab(s), Oral, Daily, X 30 day(s), # 30 tab(s), Refills(s) 0, Pharmacy: [facility], 176.5, cm, 06/21/23 9:41:00 EDT, Height/Length Dosing, 186.7, kg, 06/21/23 9:41:00 EDT, Weight Dosing meloxicam, 15 mg = 1 tab(s), Oral, Daily, # 30 tab(s), Refills(s) 1, Pharmacy: [facility], 176.5, cm, 05/22/23 9:51:00 EDT, Height/Length Dosing, 190.2, kg, 05/22/23 9:51:00 EDT, Weight Dosing phentermine, 37.5 mg = 1 tab(s), Oral, Daily, X 30 day(s), # 30 tab(s), Refills(s) 0, Pharmacy: [facility], 176.5, cm, 05/22/23 9:51:00 EDT, Height/Length Dosing, 190.2, kg, 05/22/23 9:51:00 EDT, Weight Dosing [facility] External Ambulatory Referral 3. Lower extremity numbness (R20.0: Anesthesia of skin) EMG order sent to LEANDR[facility] in [facility] Ordered: [facility] External Ambulatory Referral 4. Morbid obesity due to excess calories (E66.01: Morbid (severe) obesity due to excess calories) BMI education complete Ordered: meloxicam, 15 mg = 1 tab(s), Oral, Daily, X 30 day(s), # 30 tab(s), Refills(s) 1, Pharmacy: [facility], 176.5, cm, 06/21/23 9:41:00 EDT, Height/Length Dosing, 186.7, kg, 06/21/23 9:41:00 EDT, Weight Dosing meloxicam, 15 mg = 1 tab(s), Oral, Daily, X 30 day(s), # 30 tab(s), Refills(s) 0, Pharmacy: [facility], 176.5, cm, 06/21/23 9:41:00 EDT, Height/Length Dosing, 186.7, kg, 06/21/23 9:41:00 EDT, Weight Dosing meloxicam, 15 mg = 1 tab(s), Oral, Daily, # 30 tab(s), Refills(s) 1, Pharmacy: [facility], 176.5, cm, 05/22/23 9:51:00 EDT, Height/Length Dosing, 190.2, kg, 05/22/23 9:51:00 EDT, Weight Dosing phentermine, 37.5 mg = 1 tab(s), Oral, Daily, X 30 day(s), # 30 tab(s), Refills(s) 0, Pharmacy: [facility], 176.5, cm, 05/22/23 9:51:00 EDT, Height/Length Dosing, 190.2, kg, 05/22/23 9:51:00 EDT, Weight Dosing 5. BMI 50.0-59.9, adult (Z68.43: Body mass index [BMI] 50.0-59.9, adult) BMI education complete 6. Non-smoker (Z78.9: Other specified health status) continue not smoking Ordered: meloxicam, 15 mg = 1 tab(s), Oral, Daily, X 30 day(s), # 30 tab(s), Refills(s) 1, Pharmacy: [facility], 176.5, cm, 06/21/23 9:41:00 EDT, Height/Length Dosing, 186.7, kg, 06/21/23 9:41:00 EDT, Weight Dosing meloxicam, 15 mg = 1 tab(s), Or (more content not included)... Normal [facility] Comment on above: Result Comment: Elec tronically [...] 9:20 AM EDT With: Alexia Muhammad Where: [facility] Ambulatory Visit Summary RAKESH PIÑA :1975 Visit [...] 9:20 AM EDT With: Alexia Muhammad Where: [facility] Family Medicine Office/Clini c Noteon 05-22-2023 Family Medicine [...] in his legs at night. 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 all questions answered. RTC 4 weeks Ordered: meloxicam, 15 mg = 1 tab(s), Oral, Daily, # 30 tab(s), Refills(s) 1, Pharmacy: [facility], 176.5, cm, 05/22/23 9:51:00 EDT, Height/Length Dosing, 190.2, kg, 05/22/23 9:51:00 EDT, Weight Dosing 2. Left sciatic nerve pain (M54.32: Sciatica, left side) will order antiinflammatory. steroid did not give him any relief Ordered: meloxicam, 15 mg = 1 tab(s), Oral, Daily, # 30 tab(s), Refills(s) 1, Pharmacy: [facility], 176.5, cm, 05/22/23 9:51:00 EDT, Height/Length Dosing, 190.2, kg, 05/22/23 9:51:00 EDT, Weight Dosing phentermine, 37.5 mg = 1 tab(s), Oral, Daily, X 30 day(s), # 30 tab(s), Refills(s) 0 phentermine, 37.5 mg = 1 tab(s), Oral, Daily, X 30 day(s), # 30 tab(s), Refills(s) 0, Pharmacy: [facility], 176.5, cm, 05/22/23 9:51:00 EDT, Height/Length Dosing, 190.2, kg, 05/22/23 9:51:00 EDT, Weight Dosing 3. BMI 60.0-69.9, adult (Z68.44: Body mass index [BMI] 60.0-69.9, adult) BMI education complete Ordered: meloxicam, 15 mg = 1 tab(s), Oral, Daily, # 30 tab(s), Refills(s) 1, Pharmacy: [facility], 176.5, cm, 05/22/23 9:51:00 EDT, Height/Length Dosing, 190.2, kg, 05/22/23 9:51:00 EDT, Weight Dosing 4. Morbid obesity due to excess calories (E66.01: Morbid (severe) obesity due to excess calories) see above Ordered: meloxicam, 15 mg = 1 tab(s), Oral, Daily, # 30 tab(s), Refills(s) 1, Pharmacy: [facility], 176.5, cm, 05/22/23 9:51:00 EDT, Height/Length Dosing, 190.2, kg, 05/22/23 9:51:00 EDT, Weight Dosing phentermine, 37.5 mg = 1 tab(s), Oral, Daily, X 30 day(s), # 30 tab(s), Refills(s) 0 phentermine, 37.5 mg = 1 tab(s), Oral, Daily, X 30 day(s), # 30 tab(s), Refills(s) 0, Pharmacy: [facility], 176.5, cm, 05/22/23 9:51:00 EDT, Height/Length Dosing, 190.2, kg, 05/22/23 9:51:00 EDT, Weight Dosing 5. Non-smoker (Z78.9: Other specified health status) continue not smoking Ordered: meloxicam, 15 mg = 1 tab(s), Oral, Daily, # 30 tab(s), Refills(s) 1, Pharmacy: [facility], 176.5, cm, 05/22/23 9:51:00 EDT, Height/Length Dosing, 190.2, kg, 05/22/23 9:51:00 EDT, Weight Dosing phentermine, 37.5 mg = 1 tab(s), Oral, Daily, X 30 day(s), # 30 tab(s), Refills(s) 0 phentermine, 37.5 mg = 1 tab(s), Oral, Daily, X 30 day(s), # 30 tab(s), Refills(s) 0, Pharmacy: [facility], 176.5, cm, 05/22/23 9:51:00 EDT, Height/Length [...] Oral, Daily Allerg (more content not included)... [facility] Comment on above: Result Comment: Elec tronically Signed By: Alexia Muhammad\.jessica\Date and Time Signed: 05/22/23 10:34 EDT [place] 04-26-2023 Consent [id number] .00CD:127 [facility] Family Medicine Office/Clini c Noteon [...] kenalog 60mg IM in office today. Normal [facility] Comment on above: Result Comment: Elec tronically [...] 11:00 AM EDT With: Alexia Muhammad Where: [facility] Normal [facility] Auto Diffon 03-19-2023 Basophils/100 WBC (Bld) 0.3 % Normal 0.0-2.0 [facility] Comment on above: Order Comment: Order Added by Discern Expert. Performed By: #### 2 888146, 2588974, 6110807, 7153262, [id number] ####[facility] [address] [place] [address] Basophils/Leukocytes Auto (Bld) [Pure # fraction] 0.0 E9/L Normal 0.0-0.2 [facility] Comment on above: Order Comment: Order Added by Discern Expert. Performed By: #### 2 669667, 2395117, 8712835, 9964440, [id number] ####[facility] [address] [place] [address] Eosinophils/100 WBC (Bld) 2.1 % Normal 0.0-8.0 [facility] Comment on above: Order Comment: Order Added by Discern Expert. Performed By: #### 2 286998, 9373752, 2288829, 3601941, [id number] ####[facility] [address] [place] [address] Eosinophils/Leukocytes Auto (Bld) [Pure # fraction] 0.2 E9/L Normal 0.0-0.5 [facility] Comment on above: Order Comment: Order Added by Discern Expert. Performed By: #### 2 331246, 0762812, 3925178, 4142318, [id number] ####[facility] [address] [place] [address] Lymphocytes/100 WBC (Bld) 20.5 % Normal 14.0-50.0 [facility] Comment on above: Order Comment: Order Added by Discern Expert. Performed By: #### 2 200328, 2798745, 4347537, 5280189, 13068302 ####[address] [place] [address] Lymphocytes/Leukocytes Auto (Bld) [Pure # fraction] 1.6 E9/L Normal 1.0-4.0 [facility] Comment on above: Order Comment: Order Added by Discern Expert. Performed By: #### 2 042530, 9936860, 9245486, 0354220, [id number] ####[address] [place] [address] Monocytes/100 WBC (Bld) 8.7 % Normal 4.0-14.0 [facility] Comment on above: Order Comment: Order Added by Nellie Expert. Performed By: #### 2 244362, 0834630, 1429231, 2535146, 75313626 ####[address] [place] [address] Monocytes/Leukocytes Auto (Bld) [Pure # fraction] 0.7 E9/L Normal 0.2-1.0 [facility] Comment on above: Order Comment: Order Added by Nellie Expert. Performed By: #### 2 377839, 3861053, 3537166, 3837345, 28904455 ####[address] [address] Neutrophils/100 WBC (Bld) 68.4 % Normal 36.0-75.0 [facility] Comment on above: Order Comment: Order Added by Discern Expert. Performed By: #### 2 620814, 8839338, 5381416, 9848939, 26082049 ####[address] [address] Neutrophils/Leukocytes Auto (Bld) [Pure # fraction] 5.3 E9/L Normal 2.0-7.5 [facility] Comment on above: Order Comment: Order Added by Discern Expert. Performed By: #### 2 456914, 2631196, 9032405, 3355417, 66619528 ####[address] [place] [address] CBC w/ Auto Diffon 3 Erythrocyte distribution width (RBC) [Ratio] 16.3 % High 10.9-14.2 [facility] Comment on above: Performed By: #### 2 836662, 5986942, 4566891, 5591667, 89154180 ####[address] [address] Hematocrit (Bld) [Volume fraction] 43.7 % Normal 37.7-49.0 [facility] Comment on above: Performed By: #### 2 521127, 5985226, 2474664, 0202728, 92351479 ####[address] [address] Hemoglobin (Bld) [Mass/Vol] 14.4 g/dL Normal 13.5-17.5 [facility] Comment on above: Performed By: #### 2 957435, 0211381, 7471094, 6268820, 35798545 ####[address] [address] MCH (RBC) [Entitic mass] 27.9 pg Normal 27.0-34.0 [facility] Comment on above: Performed By: #### 2 352007, 5616701, 6210790, 5735477, 55714972 ####[address] [address] MCHC (RBC) [Mass/Vol] 33.0 g/dL Normal 31.4-36.0 [facility] Comment on above: Performed By: #### 2 498876, 6618755, 8407095, 0658357, 10057527 ####[address] [address] MCV (RBC) [Entitic vol] 84.8 fL Normal 80.0-100.0 [facility] Comment on above: Performed By: #### 2 937242, 0164881, 6011819, 4429911, 26013720 ####[facility] [address] [place] [address] Platelet mean volume (Bld) [Entitic vol] 7.7 fL Normal 6.4-10.8 [facility] Comment on above: Performed By: #### 2 091277, 7710080, 6294508, 6640027, 10120254 ####[facility] [address] [place] [address] Platelets (Bld) [#/Vol] 278.0 E9/L Normal 150.0-500.0 [facility] Comment on above: Performed By: #### 2 204529, 6560071, 4216416, 1901092, 83489536 ####[address] [place] [address] RBC (Bld) [#/Vol] 5.2 E12/L Normal 4.3-5.9 [facility] Comment on above: Performed By: #### 2 493883, 9858805, 2453378, 9826909, 14376001 ####[address] [address] WBC corrected for nucl RBC Auto (Bld) [#/Vol] 7.7 E9/L Normal 4.0-11.0 [facility] Comment on above: Performed By: #### 2 096564, 0114909, 5352137, 0707027, 86482399 ####[facility] [address] [place] [address] CHEMISTRYOrdered By: SYSTEM SYSTEM on 03-19-2023 Cholesterol [...] day(s), # 21 tab(s), Refills(s) 0, Pharmacy: [facility], 176.5, cm, 03/19/23 13:15:00 EDT, Height/Length Dosing phentermine, 37.5 mg = 1 tab(s), Oral, Daily, # 30 tab(s), Refills(s) 0, Pharmacy: [facility], 176.5, cm, 03/19/23 13:15:00 EDT, Height/Length [...] day(s), # 21 tab(s), Refills(s) 0, Pharmacy: [facility], 176.5, cm, 03/19/23 13:15:00 EDT, Height/Length Dosing phentermine, 37.5 mg = 1 tab(s), Oral, Daily, # 30 tab(s), Refills(s) 0, Pharmacy: [facility]/pharmacy #6177, 176.5, cm, 03/19/23 13:15:00 EDT, Height/Length Dosing CBC w/ Auto Diff Cologuard Screening Test Lipid Panel PSA Screen, Total Thyroid Stimulating Hormone 3. Non-smoker (Z78.9: Other specified health status) continue not smoking Ordered: methylPREDNISolone, = 1 packet(s), Oral, As Directed, as directed on package labeling, X 6 day(s), # 21 tab(s), Refills(s) 0, [facility] 176.5, cm, 03/19/23 13:15:00 EDT, Height/Length Dosing phentermine, 37.5 mg = 1 tab(s), Oral, Daily, # 30 tab(s), Refills(s) 0, [facility] 176.5, cm, 03/19/23 13:15:00 EDT, Height/Length Dosing CBC w/ Auto Diff Cologuard Screening Test Lipid Panel PSA Screen, Total Thyroid Stimulating Hormone 4. Left sciatic nerve pain (M54.32: Sciatica, left side) medrol dose pack sent Ordered: methylPREDNISolone, = 1 packet(s), Oral, As Directed, as directed on package labeling, X 6 day(s), # 21 tab(s), Refills(s) 0, [facility] 176.5, cm, 03/19/23 13:15:00 EDT, Height/Length Dosing phentermine, 37.5 mg = 1 tab(s), Oral, Daily, # 30 tab(s), Refills(s) 0, [facility] 176.5, cm, 03/19/23 13:15:00 EDT, Height/Length Dosing Colon cancer screening (Z12.11: (more content not included)... Normal [facility] Comment on above: Result Comment: Elec tronically Signed By: Alexia Muhammad\.br\Date and Time Signed: 03/19/23 14:00 EDT [employer] 03-19-2023 Forms [id number]:127 Normal [facility] HEMATOLOGYOrdered By: SYSTEM SYSTEM on 03-19-2023 Basophils/100 [...] 7.7 fL Normal 6.4 - 10.8 fL [facility] HemeAutoSS Platelets (Bld) [#/Vol] 278.0 E9/L Normal 150.0 - 500.0 E9/L [facility] RBC (Bld) [#/Vol] 5.2 E12/L Normal 4.3 - 5.9 E12/L [facility] WBC corrected for nucl RBC Auto (Bld) [#/Vol] 7.7 E9/L Normal 4.0 - 11.0 E9/L [facility] HemeAutoSS Lipid Panelon 03-19-2023 Cholesterol [Mass/Vol] 171 mg/dL Normal 120-200 [facility] Comment on above: Performed By: #### 2 [id number], [id number], [id number], [id number], [id number] ####[facility] [address] [place] [address] Cholesterol in HDL [Mass/Vol] 39 mg/dL Invalid Interpretation Code [facility] Comment on above: Result Comment: HDL > or equal to 60 mg/dL: Low cardiovascular risk HDL < 40 mg/dL : High cardiovascular risk Performed By: #### 2 [id number], [id number], [id number], [id number], [id number] ####[facility] [address] [place] [address] Cholesterol in LDL [Mass/Vol] 112 mg/dL Normal <=129 [facility] Comment on above: Performed By: #### 2 [id number], [id number], 0350523, [id number], [id number] ####[facility] [address] [place] [address] Cholesterol in VLDL [Mass/Vol] 19 mg/dL Normal 7-40 [facility] Comment on above: Performed By: #### 2 [id number], [id number], [id number], [id number], [id number] ####[facility] [address] [place] [address] Triglyceride [Mass/Vol] 94 mg/dL Normal <=149 [facility] Comment on above: Performed By: #### 2 [id number], [id number], [id number], [id number], [id number] ####[facility] [address] [place] [address] PSA Screen, Totalon 03-19-20 23 Prostate specific Ag [Mass/Vol] 0.9 ng/mL Normal 0.1-3.5 [facility] Comment on above: Result Comment: The concentration of PSA determined by different manufacturers can vary due to differences in assay methods and reagent specificity. Values obtained from different assay methods cannot be used interchangeably. The methodology used for this result was chemiluminescence using [employer] Access Hybrite[employer] PSA reagent. Performed By: #### 2 [id number], [id number], [id number], [id number], [id number] ####[facility] [address] [place] [address] TSHon 03-19-2023 TSH Qn 2.03 m[IU]/L Normal 0.34-5.60 [facility] Comment on above: Performed By: #### 2 169259, [id number], 1331986, [id number], [id number] ####[facility] [address] [place] [address] Covid-19 PCR ([facility])on 07-11 SARS-CoV-2 (COVID-19) RNA BETHANY+probe Ql (Unsp spec) Not detected Normal NOT DETECTED [facility] Comment on above: Result Comment: When diagnostic [...] for this test is supported by the Property And Supply Officer of Health and Human Service's declaration that [...] used). Performed By: #### C VDTBH #### [facility] [address] [place] [address] Dr. Mynor Yun GROUP A STREP CULTUREon 07-11 S. pyogenes Ag Ql (Unsp spec) Culture Observations: NEGATIVE FOR GROUP A STREPTOCOCCUS. Normal [facility] Comment on above: Performed By: #### G RASTCX #### [facility] [address] [place] [address] Dr. Mynor Yun INFLUENZA A AND B AGon 07-28 INFLUANE SEE BELOW Normal [facility] Comment on above: Result Comment: Nega tive for Flu A protein angiten. Infection due to Flu A cannot be ruled out. Flu A angiten in the sample may be below the detection limit of the test. Performed By: #### I NFLUAB #### [facility] [address] [place] [address] Dr. Mynor Yun INFLUBNEG SEE BELOW Normal [facility] Comment on above: Result Comment: Nega tive for Flu B protein antigen. Infection due to Flu B cannot be ruled out. Flu B antigen in the sample may be below the detection limit of the test. Performed By: #### I NFLUAB #### [facility] [address] [place] [address] Dr. Mynor Yun INFLUENZA A AG Negative Normal NEGATIVE SEE COMMENT [facility] Comment on above: Performed By: #### I NFLUAB #### [facility] [address] [place] [address] Dr. Mynor Yun INFLUENZA B AG Negative Normal NEGATIVE SEE COMMENT [facility] Comment on above: Performed By: #### I NFLUAB #### [facility] [address] [place] [address] Dr. Mynor Yun INTERNAL CONTROLS Within Normal Limits Normal Wi thin Normal Limits [facility] Comment on above: Performed By: #### I NFLUAB #### [facility] [address] [place] [address] Dr. Mynor Yun STREPT SCREENon 07-28-2022 STREP SCREEN A Negative Normal NEGATIVE [facility] Comment on above: Performed By: #### S SCRN #### [facility] [address] [place] [address] Dr. Mynor Yun XR SINUSES 3 VIEWS [...] KELLIE SMALLS Date: 2022-02-01 09:58 Normal [facility] HAND LEFT 3 Son 12-29-2021 HAND LEFT 3 [facility] Department of Radiology [address] [place] [id number] Patient Name: RAKESH PIÑA : 1975 Sex: M Age: Race: White Pt. Location: Patient Status: D Ordered Date: 12/29/2021 11:45:00 AM Completed Date: 12/29/2021 11:50 AM Requesting Provider: LORI DALLAS Attending Provider: LORI DALLAS Report Copy To: Signs & Symptoms: M79.642 Pain in left hand I10 History: Comments: Evaluate Exam: HAND LEFT 3 S HAND LEFT 3 VWS 12/29/2021 11:50 AM CLINICAL INDICATIONS: M79.642 Pain [...] alignment. Electronically signed: Heather Montana. Transcribed by: [email or web address], User Resident: Electronically Signed by: HEATHER MONTANA @ 12/31/2021 08:55 AM Normal [facility] Comment on above: Order Comment: Evalu ate HAND LEFT 3 Son 12-08-2021 HAND LEFT 3 [facility] Department of Radiology [address] [place] [id number] Patient Name: RAKESH PIÑA : 1975 Sex: M Age: Race: White Pt. Location: Patient Status: D Ordered Date: 12/08/2021 1:25:00 PM Completed Date: 12/08/2021 01:29 PM Requesting Provider: LORI DALLAS Attending Provider: LORI DALLAS Report Copy To: Signs & Symptoms: M79.642 Pain in left hand I10 History: [place] Comments: Evaluate Exam: HAND LEFT 3 S [...] bridging. Electronically signed: Ronaldo Major. Transcribed by: [email or web address], User Resident: Electronically Signed by: RONALDO MAJOR @ 12/09/2021 04:04 PM Normal [facility] Comment on above: Order Comment: Evalu ate HAND LEFT 3 [facility] 11-14-2021 HAND LEFT 3 [facility] Department of Radiology [address] [place] [id number] Patient Name: RAKESH PIÑA : 1975 [...] PA, Lateral, Oblique Exam: HAND LEFT 3 [facility] HAND LEFT 3 VWS 11/14/2021 1:58 PM CLINICAL INDICATIONS: S62.306A Unsp [...] fracture. Electronically signed: Ramirez Smith. Transcribed by: [email or web address], User Resident: Electronically Signed by: RAMIREZ SMITH @ 11/14/2021 08:02 PM Normal [facility] Comment on above: Order Comment: Views (X-RAY, HAND): PA, Lateral, Oblique TESTOSTERONE, TOTALon 2021 Testosterone [Mass/Vol] 411 ng/dL Normal 264-916 [facility] Comment on above: Result Comment: Adul t male reference interval is based on a population of healthy nonobese males (BMI <30) between 19 and 39 years old. Iron et.al. JCEM 2017,102;8565-8007. PMID: [id number]. Performed By: #### T ESTTOT #### [facility] [address] [place] [address] Dr. Mynor Yun CBC AUTO DIFFon 11-11-2021 BASO # 0.0 103/ul Normal 0.0-0.1 [facility] Comment on above: Performed By: #### C BC #### [facility] [address] [place] [address] Dr. Mynor Yun Basophils/100 WBC (Bld) 0.2 % Normal 0.2-2.0 [facility] Comment on above: Performed By: #### C BC #### [facility] [address] [place] [address] Dr. Mynor Yun EO # 0.1 103/ul Normal 0.0-0.7 [facility] Comment on above: Performed By: #### C BC #### [facility] [address] [place] [address] Dr. Mynor Yun Eosinophils/100 WBC (Bld) 1.2 % Normal 0.9-7.0 [facility] Comment on above: Performed By: #### C BC #### [facility] [address] [place] [address] Dr. Mynor Yun Erythrocyte distribution width (RBC) [Ratio] 14.3 % Normal 11.0-15.0 [facility] Comment on above: Performed By: #### C BC #### [facility] [address] [place] [address] Dr. Mynor Yun Hematocrit (Bld) [Volume fraction] 47.3 % Normal 42.0-54.0 [facility] Comment on above: Performed By: #### C BC #### [facility] [address] [place] [address] Dr. Mynor Yun Hemoglobin (Bld) [Mass/Vol] 15.2 g/dL Normal 14.0-18.0 [facility] Comment on above: Performed By: #### C BC #### [facility] [address] [place] [address] Dr. Mynor Yun IG # 0.03 10e3/ul Normal 0.00-0.03 [facility] Comment on above: Performed By: #### C BC #### [facility] [address] [place] [address] Dr. Mynor Yun IG % 0.3 % Normal 0.0-0.5 [facility] Comment on above: Performed By: #### C BC #### [facility] [address] [place] [address] Dr. Mynor Yun LYMPH # 1.6 103/ul Normal 1.2-3.8 [facility] Comment on above: Performed By: #### C BC #### [facility] [address] [place] [address] Dr. Mynor Yun Lymphocytes/100 WBC (Bld) 18.4 % Critically low 20.5-60.0 [facility] Comment on above: Performed By: #### C BC #### [facility] [address] [place] [address] Dr. Mynor Yun MANUAL DIFF REQ NO Normal [facility] Comment on above: Performed By: #### C BC #### [facility] [address] [place] [address] Dr. Mynor Yun MCH (RBC) [Entitic mass] 28.8 pg Normal 25.9-34.0 [facility] Comment on above: Performed By: #### C BC #### [facility] [address] [place] [address] Dr. Mynor Yun MCHC (RBC) [Mass/Vol] 32.1 g/dL Normal 29.9-35.2 [facility] Comment on above: Performed By: #### C BC #### [facility] [address] [place] [address] Dr. Mynor Yun MCV (RBC) [Entitic vol] 89.8 fL Normal 80.0-94.0 [facility] Comment on above: Performed By: #### C BC #### [facility] [address] [place] [address] Dr. Mynor Yun MONO # 0.7 103/ul Normal 0.3-0.8 [facility] Comment on above: Performed By: #### C BC #### [facility] [address] [place] [address] Dr. Mynor Yun Monocytes/100 WBC (Bld) 8.4 % Normal 1.7-12.0 [facility] Comment on above: Performed By: #### C BC #### [facility] [address] [place] [address] Dr. Mynor Yun NEUT # 6.2 103/ul Normal 1.4-6.5 [facility] Comment on above: Performed By: #### C BC #### [facility] [address] [place] [address] Dr. Mynor Yun Neutrophils/100 WBC (Bld) 71.5 % Normal 43.0-75.0 [facility] Comment on above: Performed By: #### C BC #### [facility] [address] [address] [address] Mynor Yun Platelet mean volume (Bld) [Entitic vol] 8.7 fL Critically low 9.5-13.5 [facility] Comment on above: Performed By: #### C BC #### [facility] [address] [address] [address] Mynor Yun PLT 263 103/ul Normal 150-450 [facility] Comment on above: Performed By: #### C BC #### [facility] [address] [address] [address] Mynor Yun RBC 5.27 106/ul Normal 4.70-6.10 [facility] Comment on above: Performed By: #### C BC #### [facility] [address] [place] [address] Dr. Mynor Yun WBC 8.7 103/ul Normal 4.0-11.0 [facility] Comment on above: Performed By: #### C BC #### [facility] [address] [place] [address] Dr. Mynor Yun LIPID PROFILEon 11-11-2021 CHOL-HDL RATIO NORM SEE BELOW Normal [facility] Comment on above: Result Comment: 3.3 - 4.4 LOW RISK 4.4 - 7.1 AVERAGE RISK 7.1 - 11.0 MODERATE RISK >11.0 HIGH RISK Performed By: #### S SCRN #### [facility] [address] [place] [address] Dr. Mynor Yun Cholesterol [Mass/Vol] 129 mg/dL Normal <=200 [facility] Comment on above: Performed By: #### S SCRN #### [facility] [address] [place] [address] Dr. Mynor Yun Cholesterol in HDL [Mass/Vol] 34 mg/dL Normal [facility] Comment on above: Performed By: #### S SCRN #### [facility] [address] [address] [address] Mynor Yun Cholesterol in LDL [Mass/Vol] 82.2 mg/dL Normal [facility] Comment on above: Performed By: #### S SCRN #### [facility] [address] [address] [address] Mynor Yun Cholesterol.total/Chol esterol in HDL [Mass ratio] 3.8 {ratio} Normal [facility] Comment on above: Performed By: #### S SCRN #### [facility] [address] [address] [address] Mynor Yun HDL NORMAL > or = 60 mg/dl - LO W CARDIOVASCULAR RISK <40 mg/dl - HIGH CARDIOVASCULAR RISK Normal [facility] Comment on above: Performed By: #### S SCRN #### [facility] [address] [address] [address] Mynor Yun LDL CALC NORMAL SEE BELOW Normal [facility] Comment on above: Result Comment: <100 mg/dl OPTIMAL 100 - 129 mg/dl NEAR OR ABOVE OPTIMAL 130 - 159 mg/dl BORDERLINE HIGH 160 - 189 mg/dl HIGH >190 mg/dl VERY HIGH Performed By: #### S SCRN #### [facility] [address] [address] [address] Mynor Yun Triglyceride [Mass/Vol] 64 mg/dL Normal <=150 [facility] Comment on above: Performed By: #### S SCRN #### [facility] [address] [address] [address] Mynor Yun VLDL CALC 12.8 mg/dL Normal [facility] Comment on above: Performed By: #### S SCRN #### [facility] [address] [address] [address] Mynor Yun PROF 14(COMP METB)on 022 Albumin [Mass/Vol] 3.8 g/dL Normal 3.5-5.0 [facility] Comment on above: Performed By: #### T SH, LIPID, CMP #### [facility] [address] [address] [address] Mynor Yun Albumin/Globulin [Mass ratio] 0.9 {ratio} Normal [facility] Comment on above: Performed By: #### T SH, LIPID, CMP #### [facility] [address] [address] [address] Mynor Yun ALP [Catalytic activity/Vol] 76 U/L Normal 38-126 [facility] Comment on above: Performed By: #### T SH, LIPID, CMP #### [facility] [address] [address] [address] Mynor Yun ALT [Catalytic activity/Vol] 49 U/L Normal 21-72 [facility] Comment on above: Performed By: #### T SH, LIPID, CMP #### [facility] [address] [address] [address] Mynor Yun Anion gap [Moles/Vol] 11.2 mmol/L Normal [facility] Comment on above: Performed By: #### T SH, LIPID, CMP #### [facility] [address] [address] [address] Mynor Yun AST [Catalytic activity/Vol] 31 U/L Normal 17-59 [facility] Comment on above: Performed By: #### T SH, LIPID, CMP #### [facility] [address] [address] [address] Mynor Yun Bilirubin [Mass/Vol] 0.5 mg/dL Normal 0.2-1.3 [facility] Comment on above: Performed By: #### T SH, LIPID, CMP #### [facility] [address] [address] [address] Mynor Yun Calcium [Mass/Vol] 9.0 mg/dL Normal 8.4-10.2 [facility] Comment on above: Performed By: #### T SH, LIPID, CMP #### [facility] [address] [address] [address] Mynor Yun Chloride [Moles/Vol] 104 mmol/L Normal 98-107 [facility] Comment on above: Performed By: #### T SH, LIPID, CMP #### [facility] [address] [address] [address] Mynor Yun CO2 [Moles/Vol] 30.6 mmol/L Critically high 22.0-30.0 [facility] Comment on above: Performed By: #### T SH, LIPID, CMP #### [facility] [address] [address] [address] Mynor Yun Creatinine [Mass/Vol] 0.95 mg/dL Normal 0.66-1.25 [facility] Comment on above: Performed By: #### T SH, LIPID, CMP #### [facility] [address] [address] [address] Mynor Yun EGFR-AF MOLDOVAN >60 Normal >=60 [facility] Comment on above: Performed By: #### T SH, LIPID, CMP #### [facility] [address] [address] [address] Mynor Yun EGFR-NON AF MOLDOVAN >60 Normal >=60 [facility] Comment on above: Performed By: #### T SH, LIPID, CMP #### [facility] [address] [address] [address] Mynor Yun Globulin (S) [Mass/Vol] 4.3 g/dL Normal [facility] Comment on above: Performed By: #### T SH, LIPID, CMP #### [facility] [address] [address] [address] Mynor Yun Glucose [Mass/Vol] 104 mg/dL Normal 74-106 [facility] Comment on above: Performed By: #### T SH, LIPID, CMP #### [facility] [address] [address] [address] Mynor Yun Potassium [Moles/Vol] 3.8 mmol/L Normal 3.4-5.0 [facility] Comment on above: Performed By: #### T SH, LIPID, CMP #### [facility] [address] [address] [address] Mynor Yun Protein [Mass/Vol] 8.1 g/dL Normal 6.1-8.2 [facility] Comment on above: Performed By: #### T SH, LIPID, CMP #### [facility] [address] [address] [address] Mynor Yun Sodium [Moles/Vol] 142 mmol/L Normal 137-145 [facility] Comment on above: Performed By: #### T SH, LIPID, CMP #### [facility] [address] [address] [address] Mynor Yun Urea nitrogen [Mass/Vol] 11.0 mg/dL Normal 9.0-20.0 [facility] Comment on above: Performed By: #### T SH, LIPID, CMP #### [facility] [address] [address] [address] Mynor Yun Urea nitrogen/Creatinine [Mass ratio] 11.6 mg/mg Normal [facility] Comment on above: Performed By: #### T SH, LIPID, CMP #### [facility] [address] [address] [address] Mynor Yun TSHon 11-11-2021 TSH 1.612 uIU/mL Normal 0.470-4.680 [facility] Comment on above: Performed By: #### T SH, LIPID, CMP #### [facility] [address] [address] [address] Mynor Yun TSH RANGE SEE BELOW Normal [facility] Comment on above: Result Comment: <0.3 4 UIU/ml HYPERTHYROID 0.34-5.60 UIU/ml EUTHYROID >5.60 UIU/ml HYPOTHYROID Performed By: #### T SH, LIPID, CMP #### [facility] [address] [place] [address] Dr. Mynor Yun Encounters Encounter Date Encounter Type Care Provider Facility Start: 11-05-2023 End: 11-06-2023 ambulatory Wilbert Buckner MD Facility:[facility] Start: 08-23-2023 End: 08-24-2023 ambulatory Alexia L Laurent Facility:[facility] Start: 07-26-2023 End: 07-27-2023 ambulatory Alexia L Laurent Facility:[facility] Start: 06-21-2023 End: 06-22-2023 ambulatory Alexia L Laurent Facility:[facility] Start: 05-22-2023 End: 05-23-2023 ambulatory Alexia L Laurent Facility:[facility] Start: 04-24-2023 End: 04-25-2023 ambulatory Alexia L Laurent Facility:[facility] Start: 03-19-2023 End: 03-20-2023 ambulatory Alexia L Laurent Facility:[facility] Start: 03-19-2023 End: 03-20-2023 ambulatory Alexia L Laurent Facility:[facility] Start: 03-19-2023 End: 03-19-2023 Lab Drop off Alexia L Laurent [facility] Start: 03-15-2023 ambulatory Alexia Laurent Facility:[facility] Start: 07-28-2022 End: 07-28-[address] LULU BLANK Facility:[facility] Start: 02-01-2022 End: 02-02-[address] LULU BLANK Facility:[facility] Start: 11-15-2021 Encounter for genera l adult medical examination without abnormal findings DR LULU BLANK [facility] Start: 11-11-2021 End: 11-12-[address] LULU BLANK Facility:[facility] Start: 11-11-2021 End: 11-12-2021 Encounter for general adult medical examination without abnormal findings DR LULU BLANK Facility:[facility] Start: 11-10-2021 End: 11-11-2021 ambulatory MAZIN CANO Facility:[facility] Procedures Date Procedure Procedure Detail Performing Clinician Gastric sleeve Alexia Laurent Comment on above: 2009 Immunizations Immunization Date Immunization Notes Care Provider [facility] 06-07-2022 influenza virus vacc ine, unspecified formulation Alexia Laurent [facility] 11-12-2020 SARS-CoV-2 (COVID-19 ) mRNA BNT-162b2 vax Alexia Laurent [facility] 10-22-2020 SARS-CoV-2 (COVID-19 ) mRNA BNT-162b2 vax Alexia Laurent [facility] 03-10-2019 pneumococcal polysaccharide vaccine, 23 valent Alexia Laurent [facility] Payers Date Payer Category Payer Unknown 2022 Unknown [id number] 2019 Unknown [id number] 1975 Unknown [id number] 2.16.84 [id number] 1975 Unknown [id number] 2.16.84 [id number] 1975 Unknown [id number] 2.16.84 [id number] 1975 Unknown [id number] 2.16.84 [id number] 1975 Unknown [id number] 2.16.8 [id number] 1975 Unknown [id number] 2.16.8 40.1.278284.3.579.2.727 1975 Unknown [id number] 2.16.8 40.1.923106.3.579.2.727 1975 Unknown [id number] 2.16.8 40.1.372063.3.579.2.727 1975 Unknown [id number] 2.16.8 40.1.639151.3.579.2.727 1975 Unknown [id number] 2.16.8 40.1.964511.3.579.2.727 1975 Unknown [id number] 2.16.8 40.1.864976.3.579.2.727 1975 Unknown [id number] 2.16.8 40.1.504342.3.579.2.727 1975 Unknown [id number] 2.16. [id number] 1957 Medicare [id number] 1957 Unknown [id number] Social History Date Type Detail Facility Start: 03-19-2023 Tobacco smoking status Ex-smoker (fi nding) [facility] Tobacco smoking status Never [facility] Sex Assigned At Male [facility] Clinical Note 11-10-2021 Note Date & Type [...] authenticated by: KELLIE SMALLS Date: 2021-11-10 13:16 [facility] Evaluation + Plan note Note Date & Type Note Facility Evaluation + Plan note Future Appointments Appointment Date:04/23/2023 11:00:00 AM Scheduled Provider:Alexia Muhammda Location:[facility] Appointment Type: Open [facility] Hospital course Narrative Note Date & Type Note Facility Hospital course Narrative No data available for this section [facility] Discharge instructions Note Date & Type Note Facility Hospital Discharge instructions No data available for this section [facility] Progress note Note Date & Type Note Facility Progress note No data available for this section [facility] Summary Purpose Family History No Family History Records FoundNo Family History Records FoundNo Family History Records FoundNo Family History Records Found Advance Directives No Advanced Directives Records FoundNo Advanced Directives Records FoundNo Advanced Directives Records FoundNo Advanced Directives Records Found Additional Source Comments (unrecognized sect ion and content) No Status Records FoundNo Status Records FoundNo Status Records FoundNo Status Records Found INFORMATION SOURCE (unrecogn ized section and content) DATE CREATED AUTHOR 01/28/2022 [facility] DATE CREATED AUTHOR AUTHOR'S ORGANIZ ATION 08/10/2022 [facility] DATE CREATED AUTHOR AUTHOR'S ORGANIZ ATION 11/10/2023 [facility] DATE CREATED AUTHOR AUTHOR'S VINCENT ATION 11/14/2023 [facility] Patient Care team leidy elizondo (unrecognized section and content) Personnel Name: Laurent LOI Alexia Donato Address: Address: [address] [place] [id number]- FOR RECORDS PERTAINING TO PATIENTS WHO ARE [...] BE BASED ON THE PRIMARY CLINICAL RECORDS. [facility] [employer] provides no warranty or guarantee of the accuracy or completeness of information in this document.
[2023-12-03 10:08] VITALS: BP 134/92; PULSE 82; RESP 16; TEMP 36.7; O2SAT 98
[2023-12-03 11:02] VITALS: BP 148/66; PULSE 75; RESP 18; O2SAT 96
[2023-12-03 11:03] VITALS: BP 147/69; PULSE 74; RESP 18; O2SAT 97
[2023-12-03] MEDS: BUPIVACAINE HCL 0.25% PF 25 MG/10 ML VIAL 4 ML INJ (11:03)
[2023-12-03] MEDS: IOHEXOL 240 MG/ML - 10 ML VIAL 24 MG INJ (11:03)
[2023-12-03] MEDS: TRIAMCINOLONE ACETONIDE 40 MG/ML VIAL IM (11:03)
[2023-12-03] MEDS: LIDOCAINE HCL 2% PF 100 MG/5 ML VIAL 1 ML INJ (11:03)
--- NOTE | 2023-12-03 11:04 | W.PM.PROCNOT ---
Date of procedure: 12/03/23 Pre-op diagnosis: Left hip osteoarthritis Post-op diagnosis: same as pre-op Procedure: Procedure: Left hip intraarticular injection Medications: Bupivacaine 0.25% 3cc, kenalog 40mg I explained the details of the procedure to the patient including the risks, benefits and alternatives. We had an informed discussion and the patient verbalized understanding and signed the consent form. All questions were answered appropriately.? A time out was performed.? After obtaining a comfortable supine position, the skin overlying the hip, subtrochanteric region, and joint space were prepped with alcohol. A sterile syringe containing the above medication was attached to a 25 guage, 3.5 inch spinal needle under strict aseptic technique. X ray was used to identify the joint space and the femoral neck on the left side.? The needle was than advanced through the subcutaneous tissue after local injection of 1% lidocaine.? The contents of the syringe were gently injected without any resistance into the joint space after contrast outlined the appropriate area. The needle was removed and pressure was applied to the injection site to decrease the incidence of ecchymosis and hematoma formation.? A sterile bandage was applied. Post procedural instructions were given to the patient. Anesthesia: Local Surgeon: Wilbert Buckner Pathology: none sent Condition: stable Disposition: no change
== END 2023-12-03 11:08 | disposition home or self-care (01) ==
PROVIDERS: PCP Nurse Practitioner; Visit Provider Anesthesiology
DX: M16.12 Unilateral primary osteoarthritis, left hip (principal)
CPT/HCPCS: 20610; 77002; Q9966

== ENCOUNTER 2023-12-12 08:56 | Outpatient (OUT) | payer BC, SELFPAY ==
--- NOTE | 2023-12-12 09:19 | P.CN_ITS ---
Consult Note: HPI Data of Consult Patient: known to practice within the last 3 years Consult date: 11/05/23 Requesting Physician: Liliane Garcia NP Primary Care Provider: EFFIE SARMIENTO Consult Narrative Reason for consult: Low back, left hip pain Narrative: 48yom who presents for evaluation. Worsening low back and left hip pain. Left hip XR shows mild to mod arthritis, lumbar xray reveals mild to moderate degenerative changes. Continues in provider directed home exercise course >6 weeks, with minimal relief. Uses celebrex 200mg BID with benefit. Denies adverse med side effects. Recently underwent left hip injection with 70% improvement ongoing. Pain 0/10 today, increases to 4/10 at its worst. Patient reporting improvement in standing and ambulation. cc:: CC: Liliane Garcia NP Review of Systems ROS Status of ROS 10 or more systems reviewed and unremark able except as noted in history and below [facility] Medical History Osteoarthritis ?M19.90 - Unspecified osteoarthritis, unspecified site (ICD-10) KWAN on CPAP ?G47.33 - Obstructive sleep apnea (adult) (pediatric) (ICD-10) Sleep apnea ?G47.30 - Sleep apnea, unspecified (ICD-10) Meds Home Medications and Allergies Home Medications ?Medication ?Instructions ?Recorded ?Confirmed ?Type celecoxib 200 mg capsule (Celebrex) 200 mg PO BID 11/05/23 12/03/23 History cholecalciferol (vitamin D3) 125 125 mcg PO DAILY 11/05/23 12/03/23 History mcg (5,000 unit) tablet (Vitamin D3) cranberry 400 mg capsule 1,600 mg PO DAILY 11/05/23 12/03/23 History loratadine 10 mg tablet (Claritin) 10 mg PO DAILY 11/05/23 12/03/23 History vitamin E 268 mg (400 unit) capsule 268 mg PO DAILY 11/05/23 12/03/23 History ascorbic acid (vitamin C) 1,000 mg 1,000 mg PO DAILY 12/03/23 12/03/23 History tablet,extended release (C Complex) Allergies Allergy/AdvReac Type Severity Reaction Status Date / Time No Known Drug Allergies Allergy Verified 12/03/23 10:14 Exam Narrative Exam Narrative: Psych-alert and oriented x 3.? Attentive and appropriate, constitutionally normal, displays normal mood and affect per situation.? There are no obvious deficits in memory, reasoning, or intellect.? Skin-no obvious rashes, bruising, erythema noted to the patient's area of pain. Extremities- extremities are warm with minimal edema and palpable pulses. Hip-no tenderness to palpation is noted over the left hip joint.? Pain is not elicited internal and external rotation of the hip.? Hip provocative maneuvers are positive and consistent with the patient's normal pain.? Lumbar-no significant tenderness to palpation noted in the lumbar spine and p araspinal musculature.? Pain is elicited with extension, and lateral rotation of the lumbar spine. Facet loading maneuvers are positive bilaterally and do appear to be concordant with the patient's normal complaints of pain. Coordination remains intact.? Gait remains antalgic. Constitutional Documenting provider has reviewed patient's vital signs: yes Common normals: no apparent distress, oriented x3, healthy appearing, alert and well nourished General appearance: cooperative HENVT Common normals: normocephalic, hearing grossly normal bilaterally and moist oral mucous membranes Head and scalp: normocephalic Eye Common normals: PERRL Pupil: PERRL Neck & C-Spine Common normals: full ROM General: normal visual inspection Chest Common normals: inspection of chest normal Respiratory Common normals: normal respiratory effort, no retractions and no use of accessory muscles Neuro Common normals: oriented x3, CN's II-XII intact bilaterally, moves all extremities, no focal motor deficits, no sensory deficits noted and deep tendon reflexes 2+ bilaterally Sensorium/orientation: alert Motor exam: strength 5/5 throughout and no movement abnormalities noted Psych Common normals: mental status grossly normal, thought process normal, cooperative, affect normal, speech normal and activity/motor behavior normal Speech: normal speech Thought process: normal thought process Results Additional Findings Additional findings: If on a controlled substance or opioids, I have checked an [place] report on this patient and there are no aberrancies noted in the prescribing history.??If on a controlled substance or opioid a drug screen was completed and reviewed within the last year, and if there has not been a drug screen completed we ordered one today to monitor higher risk, state monitored pain medication use. As part of providing excellent, safe, comprehensive care, the following was c ompleted at our patient's visit: 1. A medication reconciliation and review to ensure accurate knowledge of current/active medications, including asking our patients to inform us about any [id number] medications or herbal remedies/nutritional supplements/alternative remedies. 2. A review to specifically ensure our patients have had annual screening for screening for depression, screening for tobacco use, and screening for unhealthy alcohol use. For concerning screenings had a discussion with the patient, provided patient education, and recommended follow-up with primary care provider when appropriate. If patient noted with a risk of falling, they received education on strength, gait, and balance training to prevent future risk of falling. Assessment and Plan Assessment and Plan (1) Osteoarthritis of left hip: Qualifiers: Osteoarthritis type: primary Qualified Code(s): M16.12 - Unilateral primary osteoarthritis, left hip (2) Lumbar spondylosis: Plan continue HEP as tolerated change celebrex to 200mg BID PRN as discussed. 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 Pt to f/u with PCP regarding two high BP readings at our office, states he went to the dentist recently and BP was normal there. asymptomatic f/u 6 months sooner if needed
== END 2023-12-12 08:57 | disposition home or self-care (01) ==
PROVIDERS: PCP Nurse Practitioner; Visit Provider Nurse Practitioner
DX: M16.12 Unilateral primary osteoarthritis, left hip (principal); M47.816 Spondylosis without myelopathy or radiculopathy, lumbar region
CPT/HCPCS: G0463

== ENCOUNTER 2024-01-07 09:24 | Emergency (ER) | payer BC, MEDICARE, SELFPAY ==
[2024-01-07 09:29] VITALS: BP 176/98; PULSE 78; TEMP 36.4; O2SAT 99; BMI 60.5
--- OUTSIDE RECORDS SUMMARY | 2024-01-07 09:47 | XMS_ITS | CCD ---
Author Organization [facility] Care Team Providers Care Public Health Microbiologist Name Role Phone MAZIN CANO Admitting Unavailable [...] Unavailable Laurent, Alexia Sewell Primary Care Physician [phone] Sita CORRIGAN, Wilbert Guardado Attending Unavailable Laurent, Alexia Sewell Attending Unavailable Laurent, Alexia Sewell Admitting Unavailable Laurent, Alexia Sewell Attending Unavailable Laurent, Alexia Sewell Attending Unavailable Laurent, Alexia Sewell Admitting Unavailable Laurent, Alexia Sewell Attending Unavailable Laurent, Alexia Sewell Attending Unavailable Laurent, Alexia Sewell Attending Unavailable Laurent, Alexia Sewell Attending Unavailable Laurent, Alexai Sewell Attending Unavailable Medications Current Medications Medication [...] day(s), # 21 tab(s), Refills(s) 0, Pharmacy: [facility]/pharmacy #[id number], 176.5, cm, 03/19/23 13:15:00 [...] day(s), # 30 tab(s), Refills(s) 0, Pharmacy: [facility]/pharmacy #[id number], 176.5, cm, 03/19/23 13:15:00 [...] Test Name Value Interpretation Reference Range Facility Operative Reporton Operative Report [id number]#1 .00TIFF Normal [facility] Consultation Noteon 11-07-19 24 Consultation Note [id number]#1 .00TIFF Normal [facility] PT - Progress Noteson 2023 PT - Progress Notes [id number]#1 .00TIFF Normal [facility] RAD - MISCon 10-29-2023 RAD - MISC [id number]#1 .00TIFF Normal [facility] Retail - Clinical Noteon Retail - Clinical Note [id number]#1 .00TIFF Normal [facility] Plan of Care - PT/OT/Speecho n 09-06-2023 Plan of Care - PT/OT/Speech [id number]#1 .00TIFF Normal [facility] Physician Referralon 023 Physician Referral [id number]# 1.00TIFF Normal [facility] Testost Totalon 08-25-2023 Testosterone [Mass/Vol] 321 ng/dL Invalid Interpretation Code [id number] [facility] Comment on above: Result Comment: Adul t male reference interval is based on a population of healthy nonobese males (BMI <30) between 19 and 39 years old. Iron et.al. JCEM 2017,102;2221-2517. PMID: [id number]. Performed at: [facility] [address] [place] [address] [id number] PhD Domenic Rider Performed By: #### 2 597624, [id number], [id number] ####[facility] [address] [place] [address] Reminderson 08-24-2023 Reminders - From: Alexia Muhammad [...] detailed message for patient below Normal [facility] Family Medicine Office/Clini c Noteon 08-23-2023 Family [...] in slow motion. 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 He would [...] he would like referral to PT at [place] for bakc/leg pain. gabapentin and muscles relaxers did not help. 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 all questions answered. RTC as needed Ordered: cyclobenzaprine, 10 mg = 1 tab(s), Oral, Bedtime, PRN for spasm, # 30 tab(s), Refills(s) 0, Pharmacy: [facility] #[facility], 176.5, cm, 07/26/23 9:32:00 EST, Height/Length Dosing, 187.2, kg, 07/26/23 9:32:00 EST, Weight Dosing gabapentin, 300 mg = 1 cap(s), Oral, Daily, # 30 cap(s), Refills(s) 0, Pharmacy: [facility], 176.5, cm, 07/26/23 9:32:00 EST, Height/Length Dosing, 187.2, kg, 07/26/23 9:32:00 EST, Weight Dosing 2. Fatigue (R53.83: Other fatigue) labs drawn today Ordered: Lab Specimen Collect [id number] Testosterone Level Total 3. Hypogonadism male (E29.1: Testicular hypofunction) testosterone ordered Ordered: Lab Specimen Collect [id number] Testosterone Level Total 4. BMI 60.0-69.9, adult (Z68.44: Body mass index [BMI] 60.0-69.9, adult) bmi education complete Ordered: cyclobenzaprine, 10 mg = 1 tab(s), Oral, Bedtime, PRN for spasm, # 30 tab(s), Refills(s) 0, Pharmacy: [facility], 176.5, cm, 07/26/23 9:32:00 EST, Height/Length Dosing, 187.2, kg, 07/26/23 9:32:00 EST, Weight Dosing gabapentin, 300 mg = 1 cap(s), Oral, Daily, # 30 cap(s), Refills(s) 0, Pharmacy: [facility], 176.5, cm, 07/26/23 9:32:00 EST, Height/Length Dosing, 187.2, kg, 07/26/23 9:32:00 EST, Weight Dosing Testosterone Level Total Vitamin B12 Level Vitamin D 25 Hydroxy Follow-up No qualifying data available Patient Education Obesity, Adult, Gqfo-cg-Tadp Problem List/Past Medical History Ongoing Encounter for [...] ago Tob (more content not included)... Normal [facility] Comment on above: Result Comment: Elec tronically [...] food choices, such as grocery stores and [employer]. What are the signs or symptoms? The [...] How much exercise you get. ? Take llip-okz-ovaqjor and prescription medicines only as told by [...] with yo (more content not included)... Normal [facility] Vit B12on 08-23-2023 Cobalamin (Vitamin B12) [Mass/Vol] 301 pg/mL Normal 50-1500 [facility] Comment on above: Performed By: #### 2 714021, [id number], [id number] ####[facility] [address] [place] [address] Vitamin D 25 Hydroxyon 08-23 Vitamin D 25 Hydroxy 57.7 ng/mL Normal 30.0-100.0 [facility] Comment on above: Performed By: #### 2 568945, [id number], [id number] ####[facility] [address] [place] [address] Ambulatory Visit Summaryon 1 09-25-2022 Ambulatory Visit [...] 9:20 AM EST With: Alexia Muhammad Where: [facility] [place] Normal [facility] Medicine Office/Clini c Noteon 07-26-2023 Family Medicine [...] spasm, # 30 tab(s), Refills(s) 0, Pharmacy: [facility], 176.5, cm, 07/26/23 9:32:00 EST, Height/Length Dosing, 187.2, kg, 07/26/23 9:32:00 EST, Weight Dosing gabapentin, 300 mg = 1 cap(s), Oral, Daily, # 30 cap(s), Refills(s) 0, Pharmacy: [facility], 176.5, cm, 07/26/23 9:32:00 EST, Height/Length Dosing, 187.2, kg, 07/26/23 9:32:00 EST, Weight Dosing methylPREDNISolone, = 1 packet(s), Oral, As Directed, as directed on package labeling, X 6 day(s), # 21 tab(s), Refills(s) 0, Pharmacy: [facility], 176.5, cm, 07/26/23 9:32:00 EST, Height/Length [...] spasm, # 30 tab(s), Refills(s) 0, Pharmacy: [facility], 176.5, cm, 07/26/23 9:32:00 EST, Height/Length Dosing, 187.2, kg, 07/26/23 9:32:00 EST, Weight Dosing gabapentin, 300 mg = 1 cap(s), Oral, Daily, # 30 cap(s), Refills(s) 0, Pharmacy: [facility], 176.5, cm, 07/26/23 9:32:00 EST, Height/Length Dosing, 187.2, kg, 07/26/23 9:32:00 EST, Weight Dosing methylPREDNISolone, = 1 packet(s), Oral, As Directed, as directed on package labeling, X 6 day(s), # 21 tab(s), Refills(s) 0, Pharmacy: [facility], 176.5, cm, 07/26/23 9:32:00 EST, Height/Length Dosing, 187.2, kg, 07/26/23 9:32:00 EST, Weight Dosing 3. Numbness and tingling of foot (R20.0: Anesthesia of skin) discussed ENG results Ordered: cyclobenzaprine, 10 mg = 1 tab(s), Oral, Bedtime, PRN for spasm, # 30 tab(s), Refills(s) 0, Pharmacy: [facility], 176.5, cm, 07/26/23 9:32:00 EST, Height/Length Dosing, 187.2, kg, 07/26/23 9:32:00 EST, Weight Dosing gabapentin, 300 mg = 1 cap(s), Oral, Daily, # 30 cap(s), Refills(s) 0, Pharmacy: [facility], 176.5, cm, 07/26/23 9:32:00 EST, Height/Length Dosing, 187.2, kg, 07/26/23 9:32:00 EST, Weight Dosing methylPREDNISolone, = 1 packet(s), Oral, As Directed, as directed on package labeling, X 6 day(s), # 21 tab(s), Refills(s) 0, Pharmacy: [facility], 176.5, cm, 07/26/23 9:32:00 EST, Height/Length Dosing, 187.2, kg, 07/26/23 9:32:00 EST, Weight Dosing 4. Class 3 obesity (E66.01: Morbid (severe) obesity due to excess calories) pt continues with diet Ordered: cyclobenzaprine, 10 mg = 1 tab(s), Oral, Bedtime, PRN for spasm, # 30 tab(s), Refills(s) 0, Pharmacy: [facility], 176.5, cm, 07/26/23 9:32:00 EST, Height/Length Dosing, 187.2, kg, 07/26/23 9:32:00 EST, Weight Dosing gabapentin, 300 mg = 1 cap(s), Oral, Daily, # 30 cap(s), Refills(s) 0, Pharmacy: [facility], 176.5, cm, 07/26/23 9:32:00 EST, Height/Length Dosing, 187.2, kg, 07/26/23 9:32:00 EST, Weight Dosing methylPREDNISolone, = 1 packet(s), Oral, As Directed, as directed on package labeling, X 6 day(s), # 21 tab(s), Refills(s) 0, Pharmacy: [facility], (more content not included)... [facility] Comment on above: Result Comment: Elec tronically Signed By: Alexia Muhammad\.br\Date and Time Signed: 07/26/23 09:54 EST EMG Electromyographyon 07-10 EMG Electromyography [id number]#1 .00TIFF [facility] EMG Electromyography [id number]#1. 00TIFF [facility] Physician Referralon 023 Physician Referral [id number]# 1.00TIFF [facility] Ambulatory Visit Summaryon 1 Ambulatory Visit [...] 9:20 AM EST With: Alexia Muhammad Where: [facility] [place] Normal [facility] Office/Clini c Noteon 06-21-2023 Family Medicine Office/Clinic [...] day(s), # 30 tab(s), Refills(s) 1, Pharmacy: [facility], 176.5, cm, 06/21/23 9:41:00 EDT, Height/Length Dosing, 186.7, kg, 06/21/23 9:41:00 EDT, Weight Dosing meloxicam, 15 mg = 1 tab(s), Oral, Daily, X 30 day(s), # 30 tab(s), Refills(s) 0, Pharmacy: [facility], 176.5, cm, 06/21/23 9:41:00 EDT, Height/Length Dosing, 186.7, kg, 06/21/23 9:41:00 EDT, Weight Dosing meloxicam, 15 mg = 1 tab(s), Oral, Daily, # 30 tab(s), Refills(s) 1, Pharmacy: [facility], 176.5, cm, 05/22/23 9:51:00 EDT, Height/Length Dosing, 190.2, kg, 05/22/23 9:51:00 EDT, Weight Dosing 2. Left sciatic nerve pain (M54.32: Sciatica, left side) pt continues to have left sciatic nerve pain but it is improved Ordered: meloxicam, 15 mg = 1 tab(s), Oral, Daily, X 30 day(s), # 30 tab(s), Refills(s) 1, Pharmacy: [facility], 176.5, cm, 06/21/23 9:41:00 EDT, Height/Length Dosing, 186.7, kg, 06/21/23 9:41:00 EDT, Weight Dosing meloxicam, 15 mg = 1 tab(s), Oral, Daily, X 30 day(s), # 30 tab(s), Refills(s) 0, Pharmacy: [facility], 176.5, cm, 06/21/23 9:41:00 EDT, Height/Length Dosing, 186.7, kg, 06/21/23 9:41:00 EDT, Weight Dosing meloxicam, 15 mg = 1 tab(s), Oral, Daily, # 30 tab(s), Refills(s) 1, Pharmacy: [facility], 176.5, cm, 05/22/23 9:51:00 EDT, Height/Length Dosing, 190.2, kg, 05/22/23 9:51:00 EDT, Weight Dosing phentermine, 37.5 mg = 1 tab(s), Oral, Daily, X 30 day(s), # 30 tab(s), Refills(s) 0, Pharmacy: [facility], 176.5, cm, 05/22/23 9:51:00 EDT, Height/Length Dosing, 190.2, kg, 05/22/23 9:51:00 EDT, Weight Dosing [facility] External Ambulatory Referral 3. Lower extremity numbness (R20.0: Anesthesia of skin) EMG order sent to [facility] in [place] Ordered: [facility] External Ambulatory Referral 4. Morbid obesity due to excess calories (E66.01: Morbid (severe) obesity due to excess calories) BMI education complete Ordered: meloxicam, 15 mg = 1 tab(s), Oral, Daily, X 30 day(s), # 30 tab(s), Refills(s) 1, Pharmacy: [facility], 176.5, cm, 06/21/23 9:41:00 EDT, Height/Length Dosing, 186.7, kg, 06/21/23 9:41:00 EDT, Weight Dosing meloxicam, 15 mg = 1 tab(s), Oral, Daily, X 30 day(s), # 30 tab(s), Refills(s) 0, Pharmacy: [facility], 176.5, cm, 06/21/23 9:41:00 EDT, Height/Length Dosing, 186.7, kg, 06/21/23 9:41:00 EDT, Weight Dosing meloxicam, 15 mg = 1 tab(s), Oral, Daily, # 30 tab(s), Refills(s) 1, Pharmacy: [facility], 176.5, cm, 05/22/23 9:51:00 EDT, Height/Length Dosing, 190.2, kg, 05/22/23 9:51:00 EDT, Weight Dosing phentermine, 37.5 mg = 1 tab(s), Oral, Daily, X 30 day(s), # 30 tab(s), Refills(s) 0, Pharmacy: [facility], 176.5, cm, 05/22/23 9:51:00 EDT, Height/Length Dosing, 190.2, kg, 05/22/23 9:51:00 EDT, Weight Dosing 5. BMI 50.0-59.9, adult (Z68.43: Body mass index [BMI] 50.0-59.9, adult) BMI education complete 6. Non-smoker (Z78.9: Other specified health status) continue not smoking Ordered: meloxicam, 15 mg = 1 tab(s), Oral, Daily, X 30 day(s), # 30 tab(s), Refills(s) 1, Pharmacy: [facility], 176.5, cm, 06/21/23 9:41:00 EDT, Height/Length Dosing, 186.7, kg, 06/21/23 9:41:00 EDT, Weight Dosing meloxicam, 15 mg = 1 tab(s), Or (more content not included)... Normal [facility] Comment on above: Result Comment: Elec tronically [...] 9:20 AM EDT With: Alexia Muhammad Where: [facility] Ambulatory Visit Summary RAKESH PIÑA :1975 [...] 9:20 AM EDT With: Alexia Muhammad Where: [facility] Family Medicine Office/Clini c Noteon 05-22-2023 Family [...] his legs at night. 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 all questions answered. RTC 4 weeks Ordered: meloxicam, 15 mg = 1 tab(s), Oral, Daily, # 30 tab(s), Refills(s) 1, Pharmacy: [facility], 176.5, cm, 05/22/23 9:51:00 EDT, Height/Length Dosing, 190.2, kg, 05/22/23 9:51:00 EDT, Weight Dosing 2. Left sciatic nerve pain (M54.32: Sciatica, left side) will order antiinflammatory. steroid did not give him any relief Ordered: meloxicam, 15 mg = 1 tab(s), Oral, Daily, # 30 tab(s), Refills(s) 1, Pharmacy: [facility], 176.5, cm, 05/22/23 9:51:00 EDT, Height/Length Dosing, 190.2, kg, 05/22/23 9:51:00 EDT, Weight Dosing phentermine, 37.5 mg = 1 tab(s), Oral, Daily, X 30 day(s), # 30 tab(s), Refills(s) 0 phentermine, 37.5 mg = 1 tab(s), Oral, Daily, X 30 day(s), # 30 tab(s), Refills(s) 0, Pharmacy: [facility], 176.5, cm, 05/22/23 9:51:00 EDT, Height/Length Dosing, 190.2, kg, 05/22/23 9:51:00 EDT, Weight Dosing 3. BMI 60.0-69.9, adult (Z68.44: Body mass index [BMI] 60.0-69.9, adult) BMI education complete Ordered: meloxicam, 15 mg = 1 tab(s), Oral, Daily, # 30 tab(s), Refills(s) 1, Pharmacy: [facility], 176.5, cm, 05/22/23 9:51:00 EDT, Height/Length Dosing, 190.2, kg, 05/22/23 9:51:00 EDT, Weight Dosing 4. Morbid obesity due to excess calories (E66.01: Morbid (severe) obesity due to excess calories) see above Ordered: meloxicam, 15 mg = 1 tab(s), Oral, Daily, # 30 tab(s), Refills(s) 1, Pharmacy: [facility], 176.5, cm, 05/22/23 9:51:00 EDT, Height/Length Dosing, 190.2, kg, 05/22/23 9:51:00 EDT, Weight Dosing phentermine, 37.5 mg = 1 tab(s), Oral, Daily, X 30 day(s), # 30 tab(s), Refills(s) 0 phentermine, 37.5 mg = 1 tab(s), Oral, Daily, X 30 day(s), # 30 tab(s), Refills(s) 0, Pharmacy: [facility], 176.5, cm, 05/22/23 9:51:00 EDT, Height/Length Dosing, 190.2, kg, 05/22/23 9:51:00 EDT, Weight Dosing 5. Non-smoker (Z78.9: Other specified health status) continue not smoking Ordered: meloxicam, 15 mg = 1 tab(s), Oral, Daily, # 30 tab(s), Refills(s) 1, Pharmacy: [facility], 176.5, cm, 05/22/23 9:51:00 EDT, Height/Length Dosing, 190.2, kg, 05/22/23 9:51:00 EDT, Weight Dosing phentermine, 37.5 mg = 1 tab(s), Oral, Daily, X 30 day(s), # 30 tab(s), Refills(s) 0 phentermine, 37.5 mg = 1 tab(s), Oral, Daily, X 30 day(s), # 30 tab(s), Refills(s) 0, Pharmacy: [facility], 176.5, cm, 05/22/23 9:51:00 EDT, Height/Length [...] Oral, Daily Allerg (more content not included)... [facility] Comment on above: Result Comment: Elec tronically Signed By: Alexia Muhammad\.jessica\Date and Time Signed: 05/22/23 10:34 EDT [place] 04-26-2023 Consent [id number] .00CD:127 Normal [facility] Family Medicine Office/Clini c Noteon 04-24-2023 Family [...] kenalog 60mg IM in office today. Normal [facility] Comment on above: Result Comment: Elec tronically [...] 11:00 AM EDT With: Alexia Muhammad Where: [facility] [place] Normal [facility] Auto Diffon 03-19-2023 Basophils/100 WBC (Bld) 0.3 % Normal 0.0-2.0 [facility] Comment on above: Order Comment: Order Added by Discern Expert. Performed By: #### 2 268783, 6535216, 3337823, 8730378, [id number] ####[facility] [address] [place] [address] Basophils/Leukocytes Auto (Bld) [Pure # fraction] 0.0 E9/L Normal 0.0-0.2 [facility] Comment on above: Order Comment: Order Added by Discern Expert. Performed By: #### 2 052792, 7839900, 4822586, 0637691, [id number] ####[facility] [address] [place] [address] Eosinophils/100 WBC (Bld) 2.1 % Normal 0.0-8.0 [facility] Comment on above: Order Comment: Order Added by Discern Expert. Performed By: #### 2 794235, 3926203, 7678493, 2210614, [id number] ####[facility] [address] [place] [address] Eosinophils/Leukocytes Auto (Bld) [Pure # fraction] 0.2 E9/L Normal 0.0-0.5 [facility] Comment on above: Order Comment: Order Added by Discern Expert. Performed By: #### 2 196263, 6158222, 1652855, 4205404, [id number] ####[address] [place] [address] Lymphocytes/100 WBC (Bld) 20.5 % Normal 14.0-50.0 [facility] Comment on above: Order Comment: Order Added by Discern Expert. Performed By: #### 2 405849, 6900027, 6480207, 9702123, [id number] ####[address] [place] [address] Lymphocytes/Leukocytes Auto (Bld) [Pure # fraction] 1.6 E9/L Normal 1.0-4.0 [facility] Comment on above: Order Comment: Order Added by Discern Expert. Performed By: #### 2 287062, 2862866, 8169200, 5183748, [id number] ####[address] [address] Monocytes/100 WBC (Bld) 8.7 % Normal 4.0-14.0 [facility] Comment on above: Order Comment: Order Added by Discern Expert. Performed By: #### 2 461264, 3348720, 7292665, 9435349, [id number] ####[address] [address] Monocytes/Leukocytes Auto (Bld) [Pure # fraction] 0.7 E9/L Normal 0.2-1.0 [facility] Comment on above: Order Comment: Order Added by Discern Expert. Performed By: #### 2 286613, 7705003, 2487774, 1589372, 30583726 ####[address] [place] [address] Neutrophils/100 WBC (Bld) 68.4 % Normal 36.0-75.0 [facility] Comment on above: Order Comment: Order Added by Discern Expert. Performed By: #### 2 033082, 0086698, 4906629, 9881368, 26584926 ####[address] [place] [address] Neutrophils/Leukocytes Auto (Bld) [Pure # fraction] 5.3 E9/L Normal 2.0-7.5 [facility] Comment on above: Order Comment: Order Added by Discern Expert. Performed By: #### 2 530999, 5555018, 2252242, 0799030, [id number] ####[facility] [address] [place] [address] CBC w/ Auto Diffon 3 Erythrocyte distribution width (RBC) [Ratio] 16.3 % High 10.9-14.2 [facility] Comment on above: Performed By: #### 2 104618, 5044726, 2304513, 8764557, 27302423 ####[address] [place] [address] Hematocrit (Bld) [Volume fraction] 43.7 % Normal 37.7-49.0 [facility] Comment on above: Performed By: #### 2 758371, 5059850, 0580688, 9464270, 86906427 ####[address] [address] Hemoglobin (Bld) [Mass/Vol] 14.4 g/dL Normal 13.5-17.5 [facility] Comment on above: Performed By: #### 2 025640, 3838000, 1068778, 9184961, 03941804 ####[address] [place] [address] MCH (RBC) [Entitic mass] 27.9 pg Normal 27.0-34.0 [facility] Comment on above: Performed By: #### 2 579401, 4831706, 5365691, 4417223, 66427572 ####[address] [address] MCHC (RBC) [Mass/Vol] 33.0 g/dL Normal 31.4-36.0 [facility] Comment on above: Performed By: #### 2 207957, 4419186, 8758537, 8139204, 13871790 ####[address] [place] [address] MCV (RBC) [Entitic vol] 84.8 fL Normal 80.0-100.0 [facility] Comment on above: Performed By: #### 2 083591, 9888411, 2619551, 3520285, 19379918 ####[address] [address] Platelet mean volume (Bld) [Entitic vol] 7.7 fL Normal 6.4-10.8 [facility] Comment on above: Performed By: #### 2 865788, 2469233, 7319922, 2240675, 41368778 ####[address] [address] Platelets (Bld) [#/Vol] 278.0 E9/L Normal 150.0-500.0 [facility] Comment on above: Performed By: #### 2 274188, 5337607, 1782034, 6713268, 42389155 ####[address] [address] RBC (Bld) [#/Vol] 5.2 E12/L Normal 4.3-5.9 [facility] Comment on above: Performed By: #### 2 722200, 2332091, 1578040, 6618817, 00352101 ####[address] [address] WBC corrected for nucl RBC Auto (Bld) [#/Vol] 7.7 E9/L Normal 4.0-11.0 [facility] Comment on above: Performed By: #### 2 592882, 5249817, 7949049, 1124583, 04712321 ####[address] [address] CHEMISTRYOrdered By: SYSTEM SYSTEM on 03-19-2023 Cholesterol [...] 2.03 m[IU]/L Normal 0.34 - 5.60 mcIU/mL FT [facility] Family Medicine Office/Clini c Noteon 03-19-2023 [...] day(s), # 21 tab(s), Refills(s) 0, Pharmacy: [facility]/pharmacy #6177, 176.5, cm, 03/19/23 13:15:00 EDT, Height/Length Dosing phentermine, 37.5 mg = 1 tab(s), Oral, Daily, # 30 tab(s), Refills(s) 0, Pharmacy: [facility]/pharmacy #6177, 176.5, cm, 03/19/23 13:15:00 [...] day(s), # 21 tab(s), Refills(s) 0, Pharmacy: [facility]/pharmacy #6177, 176.5, cm, 03/19/23 13:15:00 EDT, Height/Length Dosing phentermine, 37.5 mg = 1 tab(s), Oral, Daily, # 30 tab(s), Refills(s) 0, [facility] 176.5, cm, 03/19/23 13:15:00 EDT, Height/Length Dosing CBC w/ Auto Diff Cologuard Screening Test Lipid Panel PSA Screen, Total Thyroid Stimulating Hormone 3. Non-smoker (Z78.9: Other specified health status) continue not smoking Ordered: methylPREDNISolone, = 1 packet(s), Oral, As Directed, as directed on package labeling, X 6 day(s), # 21 tab(s), Refills(s) 0, [facility], 176.5, cm, 03/19/23 13:15:00 EDT, Height/Length Dosing phentermine, 37.5 mg = 1 tab(s), Oral, Daily, # 30 tab(s), Refills(s) 0, [facility], 176.5, cm, 03/19/23 13:15:00 EDT, Height/Length Dosing CBC w/ Auto Diff Cologuard Screening Test Lipid Panel PSA Screen, Total Thyroid Stimulating Hormone 4. Left sciatic nerve pain (M54.32: Sciatica, left side) medrol dose pack sent Ordered: methylPREDNISolone, = 1 packet(s), Oral, As Directed, as directed on package labeling, X 6 day(s), # 21 tab(s), Refills(s) 0, Pharmacy: [facility] #6177, 176.5, cm, 03/19/23 13:15:00 EDT, Height/Length Dosing phentermine, 37.5 mg = 1 tab(s), Oral, Daily, # 30 tab(s), Refills(s) 0, [facility], 176.5, cm, 03/19/23 13:15:00 EDT, Height/Length Dosing Colon cancer screening (Z12.11: (more content not included)... Normal [facility] Comment on above: Result Comment: Elec tronically Signed By: Laurent MONSIVAIS, Alexia Sewell\.br\Date and Time Signed: 03/19/23 14:00 EDT Formson 03-19-2023 Forms [id number] Normal [facility] HEMATOLOGYOrdered By: SYSTEM SYSTEM on 03-19-2023 Basophils/100 [...] 33.0 g/dL Normal 31.4 - 36.0 gm/dL [facility] HemeAutoSS MCV (RBC) [Entitic vol] 84.8 fL Normal 80.0 - 100.0 fL FT HemeAutoSS Platelet mean volume (Bld) [Entitic vol] 7.7 fL Normal 6.4 - 10.8 fL [facility] HemeAutoSS Platelets (Bld) [#/Vol] 278.0 E9/L Normal 150.0 - 500.0 E9/L FT HemeAutoSS RBC (Bld) [#/Vol] 5.2 E12/L Normal 4.3 - 5.9 E12/L [facility] HemeAutoSS WBC corrected for nucl RBC Auto (Bld) [#/Vol] 7.7 E9/L Normal 4.0 - 11.0 E9/L [facility] HemeAutoSS Lipid Panelon 03-19-2023 Cholesterol [Mass/Vol] 171 mg/dL Normal 120-200 [facility] Comment on above: Performed By: #### 2 [id number], [id number], [id number], [id number], [id number] ####[facility] [address] [place] [address] Cholesterol in HDL [Mass/Vol] 39 mg/dL Invalid Interpretation Code [facility] Comment on above: Result Comment: HDL > or equal to 60 mg/dL: Low cardiovascular risk HDL < 40 mg/dL : High cardiovascular risk Performed By: #### 2 [id number], [id number], [id number], [id number], [id number] ####[facility] [address] [place] [address] Cholesterol in LDL [Mass/Vol] 112 mg/dL Normal <=129 [facility] Comment on above: Performed By: #### 2 [id number], [id number], [id number], [id number], [id number] ####[facility] [address] [place] [address] Cholesterol in VLDL [Mass/Vol] 19 mg/dL Normal 7-40 [facility] Comment on above: Performed By: #### 2 [id number], [id number], [id number], [id number], [id number] ####[facility] [address] [place] [address] Triglyceride [Mass/Vol] 94 mg/dL Normal <=149 [facility] Comment on above: Performed By: #### 2 [id number], [id number], [id number], [id number], [id number] ####[facility] [address] [place] [address] PSA Screen, Totalon 03-19-20 23 Prostate specific Ag [Mass/Vol] 0.9 ng/mL Normal 0.1-3.5 [facility] Comment on above: Result Comment: The concentration of PSA determined by different manufacturers can vary due to differences in assay methods and reagent specificity. Values obtained from different assay methods cannot be used interchangeably. The methodology used for this result was chemiluminescence using [employer] Access Hybritech PSA reagent. Performed By: #### 2 [id number], [id number], [id number], [id number], [id number] ####[facility] [address] [place] [address] TSHon 03-19-2023 TSH Qn 2.03 m[IU]/L Normal 0.34-5.60 [facility] Comment on above: Performed By: #### 2 [id number], [id number], [id number], [id number], [id number] ####[facility] [address] [place] [address] Covid-19 PCR ([facility])on 07-11 SARS-CoV-2 (COVID-19) RNA BETHANY+probe Ql (Unsp spec) Not detected Normal NOT DETECTED [facility] Comment on above: Result Comment: When [...] for this test is supported by the [place] of Health and Human Service's declaration that [...] used). Performed By: #### C VDTBH #### [facility] [address] [place] [address] Dr. Mynor Yun GROUP A STREP CULTUREon 07-11 S. pyogenes Ag Ql (Unsp spec) Culture Observations: NEGATIVE FOR GROUP A STREPTOCOCCUS. Normal [facility] Comment on above: Performed By: #### G RASTCX #### [facility] [address] [place] [address] Dr. Mynor Yun INFLUENZA A AND B AGon 07-28 [facility] SEE BELOW Normal [facility] Comment on above: Result Comment: Nega tive for Flu A protein angiten. Infection due to Flu A cannot be ruled out. Flu A angiten in the sample may be below the detection limit of the test. Performed By: #### I NFLUAB #### [facility] [address] [place] [address] Dr. Mynor Yun INFLUBNEG SEE BELOW Normal [facility] Comment on above: Result Comment: Nega tive for Flu B protein antigen. Infection due to Flu B cannot be ruled out. Flu B antigen in the sample may be below the detection limit of the test. Performed By: #### I NFLUAB #### [facility] [address] [place] [address] Dr. Mynor Yun INFLUENZA A AG Negative Normal NEGATIVE SEE COMMENT [facility] Comment on above: Performed By: #### I NFLUAB #### [facility] [address] [place] [address] Dr. Mynor Yun INFLUENZA B AG Negative Normal NEGATIVE SEE COMMENT [facility] Comment on above: Performed By: #### I NFLUAB #### [facility] [address] [place] [address] Dr. Mynor Yun INTERNAL CONTROLS Within Normal Limits Normal Wi thin Normal Limits [facility] Comment on above: Performed By: #### I NFLUAB #### [facility] [address] [address] [address] Mynor Yun STREPT SCREENon 07-28-2022 STREP SCREEN A Negative Normal NEGATIVE [facility] Comment on above: Performed By: #### S SCRN #### [facility] [address] [address] [address] Mynor Yun XR SINUSES 3 VIEWS [...] KELLIE SMALLS Date: 2022-02-01 09:58 Normal [facility] HAND LEFT 3 [facility] 12-29-2021 HAND LEFT 3 S [facility] Department of Radiology [address] [place] [id number] Patient Name: RAKESH PIÑA : 1975 [...] alignment. Electronically signed: Heather Montana. Transcribed by: [email or web address], User Resident: Electronically Signed by: HEATHER MONTANA @ 12/31/2021 08:55 AM Normal [facility] Comment on above: Order Comment: Evalu ate HAND LEFT 3 Son 12-08-2021 HAND LEFT 3 S [facility] Department of Radiology [address] [place] [id number] Patient Name: RAKESH PIÑA : 1975 Sex: M Age: Race: White Pt. Location: Patient Status: D Ordered Date: 12/08/2021 1:25:00 PM Completed Date: 12/08/2021 01:29 PM Requesting Provider: LORI DALLAS Attending Provider: LORI DALLAS Report Copy To: Signs & Symptoms: M79.642 Pain in left hand I10 History: [place] Comments: Evaluate Exam: HAND LEFT 3 VWS [...] bridging. Electronically signed: Ronaldo Major. Transcribed by: [email or web address], User Resident: Electronically Signed by: RONALDO MAJOR @ 12/09/2021 04:04 PM Normal [facility] Comment on above: Order Comment: Evalu ate HAND LEFT 3 Son 11-14-2021 HAND LEFT 3 [facility] Department of Radiology [address] [place] [id number] Patient Name: RAKESH PIÑA : 1975 [...] PA, Lateral, Oblique Exam: HAND LEFT 3 [facility] HAND LEFT 3 VWS 11/14/2021 1:58 [...] fracture. Electronically signed: Ramirez Smith. Transcribed by: [email or web address], User Resident: Electronically Signed by: RAMIREZ SMITH @ 11/14/2021 08:02 PM Normal [facility] Comment on above: Order Comment: Views (X-RAY, HAND): PA, Lateral, Oblique TESTOSTERONE, TOTALon 2021 Testosterone [Mass/Vol] 411 ng/dL Normal 264-916 [facility] Comment on above: Result Comment: Adul t male reference interval is based on a population of healthy nonobese males (BMI <30) between 19 and 39 years old. Iron et.al. JCEM 2017,102;3334-0284. PMID: [id number]. Performed By: #### T ESTTOT #### [facility] [address] [address] [address] Mynor Yun CBC AUTO DIFFon 11-11-2021 BASO # 0.0 103/ul Normal 0.0-0.1 [facility] Comment on above: Performed By: #### C BC #### [facility] [address] [address] [address] Mynor Yun Basophils/100 WBC (Bld) 0.2 % Normal 0.2-2.0 [facility] Comment on above: Performed By: #### C BC #### [facility] [address] [place] [address] Dr. Mynor Yun EO # 0.1 103/ul Normal 0.0-0.7 [facility] Comment on above: Performed By: #### C BC #### [facility] [address] [place] [address] Dr. Mynor Yun Eosinophils/100 WBC (Bld) 1.2 % Normal 0.9-7.0 [facility] Comment on above: Performed By: #### C BC #### [facility] [address] [place] [address] Dr. Mynor Yun Erythrocyte distribution width (RBC) [Ratio] 14.3 % Normal 11.0-15.0 [facility] Comment on above: Performed By: #### C BC #### [facility] [address] [place] [address] Dr. Mynor Yun Hematocrit (Bld) [Volume fraction] 47.3 % Normal 42.0-54.0 [facility] Comment on above: Performed By: #### C BC #### [facility] [address] [place] [address] Dr. Mynor Yun Hemoglobin (Bld) [Mass/Vol] 15.2 g/dL Normal 14.0-18.0 [facility] Comment on above: Performed By: #### C BC #### [facility] [address] [place] [address] Dr. Mynor Yun IG # 0.03 10e3/ul Normal 0.00-0.03 [facility] Comment on above: Performed By: #### C BC #### [facility] [address] [place] [address] Dr. Mynor Yun IG % 0.3 % Normal 0.0-0.5 [facility] Comment on above: Performed By: #### C BC #### [facility] [address] [place] [address] Dr. Mynor Yun LYMPH # 1.6 103/ul Normal 1.2-3.8 [facility] Comment on above: Performed By: #### C BC #### [facility] [address] [place] [address] Dr. Mynor Yun Lymphocytes/100 WBC (Bld) 18.4 % Critically low 20.5-60.0 [facility] Comment on above: Performed By: #### C BC #### [facility] [address] [place] [address] Dr. Mynor Yun MANUAL DIFF REQ NO Normal [facility] Comment on above: Performed By: #### C BC #### [facility] [address] [place] [address] Dr. Mynor Yun MCH (RBC) [Entitic mass] 28.8 pg Normal 25.9-34.0 [facility] Comment on above: Performed By: #### C BC #### [facility] [address] [place] [address] Dr. Mynor Yun MCHC (RBC) [Mass/Vol] 32.1 g/dL Normal 29.9-35.2 [facility] Comment on above: Performed By: #### C BC #### [facility] [address] [place] [address] Dr. Mynor Yun MCV (RBC) [Entitic vol] 89.8 fL Normal 80.0-94.0 [facility] Comment on above: Performed By: #### C BC #### [facility] [address] [place] [address] Dr. Mynor Yun MONO # 0.7 103/ul Normal 0.3-0.8 [facility] Comment on above: Performed By: #### C BC #### [facility] [address] [place] [address] Dr. Mynor Yun Monocytes/100 WBC (Bld) 8.4 % Normal 1.7-12.0 [facility] Comment on above: Performed By: #### C BC #### [facility] [address] [place] [address] Dr. Mynor Yun NEUT # 6.2 103/ul Normal 1.4-6.5 [facility] Comment on above: Performed By: #### C BC #### [facility] [address] [address] [address] Mynor Yun Neutrophils/100 WBC (Bld) 71.5 % Normal 43.0-75.0 [facility] Comment on above: Performed By: #### C BC #### [facility] [address] [address] [address] Mynor Yun Platelet mean volume (Bld) [Entitic vol] 8.7 fL Critically low 9.5-13.5 [facility] Comment on above: Performed By: #### C BC #### [facility] [address] [address] [address] Mynor Yun PLT 263 103/ul Normal 150-450 [facility] Comment on above: Performed By: #### C BC #### [facility] [address] [place] [address] Dr. Mynor Yun RBC 5.27 106/ul Normal 4.70-6.10 [facility] Comment on above: Performed By: #### C BC #### [facility] [address] [place] [address] Dr. Mynor Yun WBC 8.7 103/ul Normal 4.0-11.0 [facility] Comment on above: Performed By: #### C BC #### [facility] [address] [place] [address] Dr. Mynor Yun LIPID PROFILEon 11-11-2021 CHOL-HDL RATIO NORM SEE BELOW Normal [facility] Comment on above: Result Comment: 3.3 - 4.4 LOW RISK 4.4 - 7.1 AVERAGE RISK 7.1 - 11.0 MODERATE RISK >11.0 HIGH RISK Performed By: #### S SCRN #### [facility] [address] [place] [address] Dr. Mynor Yun Cholesterol [Mass/Vol] 129 mg/dL Normal <=200 [facility] Comment on above: Performed By: #### S SCRN #### [facility] [address] [place] [address] Dr. Mynor Yun Cholesterol in HDL [Mass/Vol] 34 mg/dL Normal [facility] Comment on above: Performed By: #### S SCRN #### [facility] [address] [address] [address] Mynor Yun Cholesterol in LDL [Mass/Vol] 82.2 mg/dL Normal [facility] Comment on above: Performed By: #### S SCRN #### [facility] [address] [address] [address] Mynor Yun Cholesterol.total/Chol esterol in HDL [Mass ratio] 3.8 {ratio} Normal [facility] Comment on above: Performed By: #### S SCRN #### [facility] [address] [address] [address] Mynor Yun HDL NORMAL > or = 60 mg/dl - LO W CARDIOVASCULAR RISK <40 mg/dl - HIGH CARDIOVASCULAR RISK Normal [facility] Comment on above: Performed By: #### S SCRN #### [facility] [address] [address] [address] Mynor Yun LDL CALC NORMAL SEE BELOW Normal [facility] Comment on above: Result Comment: <100 mg/dl OPTIMAL 100 - 129 mg/dl NEAR OR ABOVE OPTIMAL 130 - 159 mg/dl BORDERLINE HIGH 160 - 189 mg/dl HIGH >190 mg/dl VERY HIGH Performed By: #### S SCRN #### [facility] [address] [place] [address] Dr. Mynor Yun Triglyceride [Mass/Vol] 64 mg/dL Normal <=150 [facility] Comment on above: Performed By: #### S SCRN #### [facility] [address] [address] [address] Mynor Yun VLDL CALC 12.8 mg/dL Normal [facility] Comment on above: Performed By: #### S SCRN #### [facility] [address] [address] [address] Mynor Yun PROF 14(COMP METB)on 022 Albumin [Mass/Vol] 3.8 g/dL Normal 3.5-5.0 [facility] Comment on above: Performed By: #### T SH, LIPID, CMP #### [facility] [address] [address] [address] Mynor Yun Albumin/Globulin [Mass ratio] 0.9 {ratio} Normal [facility] Comment on above: Performed By: #### T SH, LIPID, CMP #### [facility] [address] [address] [address] Mynor uYn ALP [Catalytic activity/Vol] 76 U/L Normal 38-126 [facility] Comment on above: Performed By: #### T SH, LIPID, CMP #### [facility] [address] [address] [address] Mynor Yun ALT [Catalytic activity/Vol] 49 U/L Normal 21-72 [facility] Comment on above: Performed By: #### T SAMARIA, LIPID, CMP #### [facility] [address] [place] [address] Dr. Mynor Ynu Anion gap [Moles/Vol] 11.2 mmol/L Normal [facility] Comment on above: Performed By: #### T SAMARIA, LIPID, CMP #### [facility] [address] [place] [address] Dr. Mynor Yun AST [Catalytic activity/Vol] 31 U/L Normal 17-59 [facility] Comment on above: Performed By: #### T SAMARIA, LIPID, CMP #### [facility] [address] [place] [address] Dr. Mynor Yun Bilirubin [Mass/Vol] 0.5 mg/dL Normal 0.2-1.3 [facility] Comment on above: Performed By: #### T SAMARIA, LIPID, CMP #### [facility] [address] [place] [address] Dr. Mynor Yun Calcium [Mass/Vol] 9.0 mg/dL Normal 8.4-10.2 [facility] Comment on above: Performed By: #### T SH, LIPID, CMP #### [facility] [address] [place] [address] Dr. Mynor Yun Chloride [Moles/Vol] 104 mmol/L Normal 98-107 [facility] Comment on above: Performed By: #### T SAMARIA, LIPID, CMP #### [facility] [address] [address] [address] Mynor Yun CO2 [Moles/Vol] 30.6 mmol/L Critically high 22.0-30.0 [facility] Comment on above: Performed By: #### T SAMARIA, LIPID, CMP #### [facility] [address] [address] [address] Mynor Yun Creatinine [Mass/Vol] 0.95 mg/dL Normal 0.66-1.25 [facility] Comment on above: Performed By: #### T SH, LIPID, CMP #### [facility] [address] [address] [address] Mynor Yun EGFR-AF GAMBIAN >60 Normal >=60 [facility] Comment on above: Performed By: #### T SAMARIA, LIPID, CMP #### [facility] [address] [address] [address] Mynor Yun EGFR-NON AF GAMBIAN >60 Normal >=60 [facility] Comment on above: Performed By: #### T SAMARIA, LIPID, CMP #### [facility] [address] [address] [address] Mynor Yun Globulin (S) [Mass/Vol] 4.3 g/dL Normal [facility] Comment on above: Performed By: #### T SAMARIA, LIPID, CMP #### [facility] [address] [address] [address] Mynor Yun Glucose [Mass/Vol] 104 mg/dL Normal 74-106 [facility] Comment on above: Performed By: #### T SH, LIPID, CMP #### [facility] [address] [address] [address] Mynor Yun Potassium [Moles/Vol] 3.8 mmol/L Normal 3.4-5.0 [facility] Comment on above: Performed By: #### T SH, LIPID, CMP #### [facility] [address] [address] [address] Mynor Yun Protein [Mass/Vol] 8.1 g/dL Normal 6.1-8.2 [facility] Comment on above: Performed By: #### T SH, LIPID, CMP #### [facility] [address] [address] [address] Mynor Yun Sodium [Moles/Vol] 142 mmol/L Normal 137-145 [facility] Comment on above: Performed By: #### T SH, LIPID, CMP #### [facility] [address] [address] [address] Mynor Yun Urea nitrogen [Mass/Vol] 11.0 mg/dL Normal 9.0-20.0 [facility] Comment on above: Performed By: #### T SH, LIPID, CMP #### [facility] [address] [address] [address] Mynor Yun Urea nitrogen/Creatinine [Mass ratio] 11.6 mg/mg Normal [facility] Comment on above: Performed By: #### T SH, LIPID, CMP #### [facility] [address] [address] [address] Mynor Yun TSHon 11-11-2021 TSH 1.612 uIU/mL Normal 0.470-4.680 [facility] Comment on above: Performed By: #### T SH, LIPID, CMP #### [facility] [address] [address] [address] Mynor Yun TSH RANGE SEE BELOW Normal [facility] Comment on above: Result Comment: <0.3 4 UIU/ml HYPERTHYROID 0.34-5.60 UIU/ml EUTHYROID >5.60 UIU/ml HYPOTHYROID Performed By: #### T SH, LIPID, CMP #### [facility] [address] [address] [address] Mynor Yun Encounters Encounter Date Encounter Type Care Provider Facility Start: 11-05-2023 End: 11-06-2023 ambulatory Wilbert Buckner MD Facility:[facility] Start: 08-23-2023 End: 08-24-2023 ambulatory Alexia L Laurent Facility:[facility] Start: 07-26-2023 End: 07-27-2023 ambulatory Alexia L Laurent Facility:[facility] Start: 06-21-2023 End: 06-22-2023 ambulatory Alexia L Laurent Facility:[facility] Start: 05-22-2023 End: 05-23-2023 ambulatory Alexia L Laurent Facility:[facility] Start: 04-24-2023 End: 04-25-2023 ambulatory Alexia L Laurent Facility:[facility] Start: 03-19-2023 End: 03-20-2023 ambulatory Alexia L Laurent Facility:[facility] Start: 03-19-2023 End: 03-20-2023 ambulatory Alexia L Laurent Facility:[facility] Start: 03-19-2023 End: 03-19-2023 Lab Drop off Alexia L Laurent [facility] Start: 03-15-2023 ambulatory Alexia Laurent Facility:[facility] Start: 07-28-2022 End: 07-28-[address] LULU BLANK Facility:[facility] Start: 02-01-2022 End: 02-02-[address] LULU BLANK Facility:[facility] Start: 11-15-2021 Encounter for genera l adult medical examination without abnormal findings DR LULU BLANK [facility] Start: 11-11-2021 End: 11-12-[address] LULU BLANK Facility:[facility] Start: 11-11-2021 End: 11-12-2021 Encounter for general adult medical examination without abnormal findings DR LULU BLANK Facility:[facility] Start: 11-10-2021 End: 11-11-2021 ambulatory MAZIN CANO Facility:[facility] Procedures Date Procedure Procedure Detail Performing Clinician Gastric sleeve Alexia Laurent Comment on above: 2009 Immunizations Immunization Date Immunization Notes Care Provider Fa cili 06-07-2022 influenza virus vacc ine, unspecified formulation Alexia Laurent [facility] 11-12-2020 SARS-CoV-2 (COVID-19 ) mRNA BNT-162b2 vax Alexia Laurent [facility] 10-22-2020 SARS-CoV-2 (COVID-19 ) mRNA BNT-162x6 vax Alexia Mancilla [facility] 03-10-2019 pneumococcal polysaccharide vaccine, 23 valent Alexia Mancilla [facility] Payers Date Payer Category Payer Unknown 2022 Unknown [id number] 2019 Unknown [id number] 1975 Unknown [id number] 2.16.84 [id number] 1975 Unknown [id number] 2.16.84 [id number] 1975 Unknown [id number] 2.16.84 [id number] 1975 Unknown [id number] 2.16.84 [id number] 1975 Unknown [id number] 2.16. [id number] 1975 Unknown [id number] 2.16.8 40.1.024504.3.579.2.727 1975 Unknown [id number] 2.16.8 40.1.291233.3.579.2.727 1975 Unknown [id number] 2.16.8 40.1.082475.3.579.2.727 1975 Unknown [id number] 2.16.8 40.1.178835.3.579.2.727 1975 Unknown [id number] 2.16.8 40.1.528710.3.579.2.727 1975 Unknown [id number] 2.16.8 40.1.775978.3.579.2.727 1975 Unknown [id number] 2.16.8 40.1.777927.3.579.2.727 1975 Unknown [id number] 2.16.8 [id number] 1957 Medicare [id number] 1957 Unknown [id number] Social History Date Type Detail Facility Start: 03-19-2023 Tobacco smoking status Ex-smoker ([facility]) [facility] Tobacco smoking status Never Miguel Ángel [facility] Sex Assigned At Male [facility] Clinical Note 11-10-2021 Note Date & Type [...] authenticated by: KELLIE SMALLS Date: 2021-11-10 13:16 [facility] Evaluation + Plan note Note Date & Type [facility] Evaluation + Plan note Future Appointments Appointment Date:04/23/2023 11:00:00 AM Scheduled Provider:Alexia Muhammad Location:[facility] Appointment Type:[facility] Hospital course Narrative Note Date & Type Note Facility Hospital course Narrative No data available for this section [facility] Hospital Discharge instructions Note Date & Type Note Facility Hospital Discharge instructions No data available for this section [facility] Progress note Note Date & Type Note Facility Progress note No data available for this section [facility] Summary Purpose Family History No Family History [...] content) DATE CREATED AUTHOR 01/28/2022 [facility] DATE CREATED AUTHOR AUTHOR'S ORGANIZ ATION 08/10/2022 [facility] DATE CREATED AUTHOR AUTHOR'S ORGANIZ ATION 11/14/2023 [facility] DATE CREATED AUTHOR AUTHOR'S ORGANIZ ATION 12/05/2023 Lul Echavarria [facility] Patient Care team informatio n (unrecognized section and content) Personnel Name: Laurent LOIShanitacolleen Sewell Address: Address: [address] [place] [phone] FOR RECORDS PERTAINING TO PATIENTS WHO ARE [...] BE BASED ON THE PRIMARY CLINICAL RECORDS. [facility] [employer] provides no warranty or guarantee of the accuracy or completeness of information in this document.
--- NOTE | 2024-01-07 10:02 | CT_ITS ---
The [address] [address] Patient Name: RAKESH PIÑA MRN: [id number] date: 1975 Sex: M Assigned Patient Location: ER Current Patient Location: Accession/Order Number: [id number] Exam Date: 01/07/2024 10:35 Report Date: 01/07/2024 11:05 At the request of: VESTA LI Procedure: CT abdomen pelvis wo con EXAM: CT abdomen pelvis wo con HISTORY: Left flank pain. COMPARISON: CT dated 06/26/2019 TECHNIQUE: A noncontrast scan was performed. Sagittal and coronal reformatted images were produced. Dose reduction techniques were achieved by using automated exposure control and/or adjustment of mA and/or kV according to patient size and/or use of iterative reconstruction technique. FINDINGS: The lung bases are clear. Lower mediastinal structures are stable in appearance. The liver shows stable mild enlargement with diffuse fatty change. The spleen shows stable mild enlargement but is otherwise normal in appearance. The adrenal glands and pancreas show normal unenhanced characteristics. The gallbladder is mildly distended but is otherwise normal in appearance. The kidneys are symmetric in size and show no calcifications or hydronephrosis. There is a peripelvic cyst in the left kidney. Minimal calcified plaque is seen in the aorta and branch vessels. The large and small bowel are normal caliber. Pelvic organs are normal. Urinary bladder is normal. There is no free air or free fluid and no inflammatory stranding is seen. There is been interval increase in soft tissue calcifications in the anterior rectus muscles. Osseous structures are stable in appearance. CT/CT abdomen pelvis wo con IMPRESSION: No acute process. No abnormality seen to clearly account for the left flank pain, although this exam does not exclude an active pyelonephritis. Other stable findings as above. Electronically authenticated by: JIMY MDEINA Date: 01/07/2024 11:05
[2024-01-07] MEDS: KETOROLAC TROMETHAMINE 30 MG/ML VIAL 15 MG IVP (10:21)
[2024-01-07] MEDS: ONDANSETRON PF 4 MG/2 ML VIAL IV (10:21)
--- NOTE | 2024-01-07 10:32 | ED.BACK1 ---
HPI HPI - Back Pain/Injury General Chief Complaint: Back Pain/Injury Stated Complaint: BACK PAIN Time Seen by Provider: 01/07/24 09:43 Source: patient and family Mode of arrival: walk-in Limitations: no limitations History of Present Illness HPI Narrative: The patient is morbidly obese coming to the ER with a left lower back pain that he mentioned that been going on at least for 2 weeks although this morning it changed to be associated with nausea and vomiting and crampy-like, there is no radiation in his abdomen there is no changes in bowel movement and the pain is left lower, there is no burning with urination there is no hematuria and no pain in his lower extremities Related Data Home Medications ?Medication ?Instructions ?Recorded ?Confirmed celecoxib 200 mg capsule (Celebrex) 200 mg PO BID 11/05/23 01/07/24 cholecalciferol (vitamin D3) 125 125 mcg PO DAILY 11/05/23 01/07/24 mcg (5,000 unit) tablet (Vitamin D3) cranberry 400 mg capsule 1,600 mg PO DAILY 11/05/23 01/07/24 loratadine 10 mg tablet (Claritin) 10 mg PO DAILY 11/05/23 01/07/24 vitamin E 268 mg (400 unit) capsule 268 mg PO DAILY 11/05/23 01/07/24 ascorbic acid (vitamin C) 1,000 mg 1,000 mg PO DAILY 12/03/23 01/07/24 tablet,extended release (C Complex) paroxetine HCl 10 mg tablet 10 mg PO DAILY 01/07/24 01/07/24 Previous Rx's ?Medication ?Instructions ?Recorded orphenadrine citrate 100 mg 100 mg PO BID PRN muscle spasm #10 01/07/24 tablet,extended release tabs prednisone 50 mg tablet 50 mg PO DAILY 5 days #5 tabs 01/07/24 Allergies Allergy/AdvReac Type Severity Reaction Status Date / Time No Known Drug Allergies Allergy Verified 12/03/23 10:14 Opioid HPI Opioid Management Most Recent Opioid Data: Last Pain Scale 10 01/07/24 10:38 Last ED Pain Assessment 01/07/24 10:38 Last MAR Pain Assessment 01/07/24 10:21 Review of Systems ROS Status of ROS 10 or more systems reviewed and unremarkable except as noted in history and below PFSH PFS Medical History Osteoarthritis ?M19.90 - Unspecified osteoarthritis, unspecified site (ICD-10) KWAN on CPAP ?G47.33 - Obstructive sleep apnea (adult) (pediatric) (ICD-10) Sleep apnea ?G47.30 - Sleep apnea, unspecified (ICD-10) Exam Narrative Exam Narrative: Nurses notes and vital signs reviewed and patient is not hypoxic. General: Well-appearing and in no apparent distress. Skin: Warm, dry, no pallor noted. No rash. Head: Normocephalic, atraumatic. Neck: Supple, non-tender. Eye: Pupils are equal, round and EOMI. No scleral icterus. Ears, Nose, Mouth, and Throat: TM are clear, no nasal mucosal hypertrophy. Oral mucosa is moist, no posterior oropharynx erythema, uvula is mid-line Cardiovascular: Regular Rate and Rhythm without murmur, gallop or rub. Respiratory: No accessory muscle use or respiratory distress. Lungs are clear to auscultation, no wheezing, rales or rhonchi Chest Wall: no tenderness Back: No midline thoracic or lumbar vertebral tenderness. Left paraspinal muscle tenderness to the CVA showed no tenderness Musculoskeletal: normal ROM, no calf or popliteal tenderness, no lower extremity edema/swelling GI: Abdomen is soft, non-distended. Normal bowel sounds. No masses appreciated. No tenderness to palpation. No rebound, guarding, or rigidity noted. Neurological: A&O x4. No cranial nerve dysfunction observed. No truncal ataxia. Moves all extremities. Sensation intact. Psychiatric: Cooperative and interactive. Normal mood and affect. Constitutional Vital Signs, click to edit/add: Last Vital Signs Temp 97.6 F 01/07/24 09:29 Pulse 87 01/07/24 12:51 Resp 19 01/07/24 12:51 BP 136/89 01/07/24 12:51 Pulse Ox 99 01/07/24 12:51 O2 Del Method Room Air 01/07/24 12:51 Course Vital Signs Vital signs: Vital Signs Temperature 97.6 F 01/07/24 09:29 Pulse Rate 78 01/07/24 09:29 Respiratory Rate 18 01/07/24 09:29 Blood Pressure 176/98 H 01/07/24 09:29 Pulse Oximetry 99 01/07/24 09:29 Oxygen Delivery Method Room Air 01/07/24 09:29 Temperature 97.6 F 01/07/24 09:29 Pulse Rate 87 01/07/24 12:51 Respiratory Rate 19 01/07/24 12:51 Blood Pressure 136/89 01/07/24 12:51 Pulse Oximetry 99 01/07/24 12:51 Oxygen Delivery Method Room Air 01/07/24 12:51 MDM - Back Pain/Injury MDM Narrative Medical decision making narrative: The patient does have a history of chronic back pain and he does follow-up with pain management as outpatient CBC and chemistry showed no acute significant pathology and the patient urinalysis showed no UTI CAT scan shows no acute pathology as well and the patient was discharged after being prescribed prednisone for 5 days as well as Norflex The patient is to follow up with primary care physician in next 2-3 days or to return to the emergency department should any of the signs or symptoms worsen or new symptoms develop. The patient agrees with the following Diagnosis and Treatment plan and the patient will be discharged home. Lab Data Labs: Lab Results 01/07/24 01/07/24 01/07/24 Range/Units 10:20 11:19 12:05 WBC 8.8 (4.0-11.0) 10^3/uL RBC 5.23 (4.70-6.10) 10^6/uL Hgb 12.8 L (14.0-18.0) g/dL Hct 42.5 (42.0-54.0) % MCV 81.3 (80.0-94.0) fL MCH 24.5 L (25.9-34.0) pg MCHC 30.1 (29.9-35.2) g/dL RDW 16.8 H (11.0-15.0) % Plt Count 294 (150-450) 10^3/uL MPV 9.4 L (9.5-13.5) fL Neut % (Auto) 80.6 H (43.0-75.0) % Lymph % (Auto) 11.5 L (20.5-60.0) % [place] % (Auto) 6.4 (1.7-12.0) % Eos % (Auto) 0.9 (0.9-7.0) % Baso % (Auto) 0.3 (0.2-2.0) % Neut # (Auto) 7.0 H (1.4-6.5) 10^3/uL Lymph # (Auto) 1.0 L (1.2-3.8) 10^3/uL [place] # (Auto) 0.6 (0.3-0.8) 10^3/uL Eos # (Auto) 0.1 (0.0-0.7) 10^3/uL Baso # (Auto) 0.0 (0.0-0.1) 10^3/uL Abs Immat Gran (auto) 0.03 (0.00-0.03) 10^3/uL Imm/Tot Granulo (auto) 0.3 (0.0-0.5) % Sodium 139 (136-145) mmol/L Potassium 4.4 (3.5-5.1) mmol/L Chloride 104 (98-107) mmol/L Carbon Dioxide 26.8 (21.0-32.0) mmol/L Anion Gap 12.6 BUN 17.0 (7.0-18.0) mg/dL Creatinine 0.86 (0.70-1.30) mg/dL Est GFR ( Amer) >60 (>=60) Est GFR (Non-Af Amer) >60 (>=60) BUN/Creatinine Ratio 19.8 Glucose 113 H (74-106) mg/dL Calcium 9.4 (8.5-10.1) mg/dL Total Bilirubin 0.3 (0.2-1.0) mg/dL AST 29 (15-37) U/L ALT 30 (16-63) U/L Alkaline Phosphatase 73 (46-116) U/L Total Protein 7.8 (6.4-8.2) g/dL Albumin 3.2 L (3.4-5.0) g/dL Globulin 4.6 g/dL Albumin/Globulin Ratio 0.7 Urine Color Yellow (YELLOW) Urine Clarity Clear (CLEAR) Urine pH 6.0 (5.0-9.0) Ur Specific [place] >=1.030 A (1.005-1.025) Urine Protein Negative (NEG/TRACE) mg/dL Urine Glucose (UA) Negative (NEGATIVE) mg/dL Urine Ketones Negative (NEGATIVE) mg/dL Urine Occult Blood Negative (NEGATIVE) Urine Nitrite Negative (NEGATIVE) Urine Bilirubin Negative (NEGATIVE) Urine Urobilinogen 0.2 (0.2-1.0) EU/dL Ur Leukocyte Esterase Negative (NEGATIVE) Discharge Plan Discharge Stand Alone Forms: Portal Instructions Chief Complaint: Back Pain/Injury Clinical Impression: Strain of lumbar region Qualifiers: Encounter type: initial encounter Qualified Code(s): S39.012A - Strain of muscle, fascia and tendon of lower back, initial encounter Patient Disposition: Home, Self-Care Time of Disposition Decision: 12:29 Prescriptions / Home Meds: New orphenadrine citrate 100 mg tablet extended release 100 mg PO BID PRN (Reason: muscle spasm) Qty: 10 0RF prednisone 50 mg tablet 50 mg PO DAILY 5 Days Qty: 5 0RF No Action cranberry 400 mg capsule 1,600 mg PO DAILY Rx Instructions: administer with a meal celecoxib [Celebrex] 200 mg capsule 200 mg PO BID vitamin E 268 mg (400 unit) capsule 268 mg PO DAILY loratadine [Claritin] 10 mg tablet 10 mg PO DAILY cholecalciferol (vitamin D3) [Vitamin D3] 125 mcg (5,000 unit) tablet 125 mcg PO DAILY C Complex 1,000 mg tablet extended release 1,000 mg PO DAILY paroxetine HCl 10 mg tablet 10 mg PO DAILY Print Language: Egyptian Instructions: Low Back Strain (ED), Back Pain (ED) Referrals: EFFIE SARMIENTO [Primary Care Provider] - 1 week Discharge Date/Time: 01/07/24 12:52
[2024-01-07 10:34] LABS: Basophils Percent Auto 0.3 % (0.2-2.0); Eosinophils Absolute Auto 0.1 10^3/uL (0.0-0.7); Eosinophils Percent Auto 0.9 % (0.9-7.0); Hematocrit 42.5 % (42.0-54.0); Hemoglobin 12.8 g/dL (14.0-18.0); Immature Granulocytes Abs Auto 0.03 10^3/uL (0.00-0.03); Immature Granulocytes Pct Auto 0.3 % (0.0-0.5); Lymphocytes Percent Auto 11.5 % (20.5-60.0); Mean Corpuscular HGB Conc 30.1 g/dL (29.9-35.2); Mean Corpuscular Hemoglobin 24.5 pg (25.9-34.0); Mean Corpuscular Volume 81.3 fL (80.0-94.0); Mean Platelet Volume 9.4 fL (9.5-13.5); Monocytes Absolute Auto 0.6 10^3/uL (0.3-0.8); Monocytes Percent Auto 6.4 % (1.7-12.0); Neutrophils Percent Auto 80.6 % (43.0-75.0); Platelet Count 294 10^3/uL (150-450); Red Blood Count 5.23 10^6/uL (4.70-6.10); Red Cell Distribution Width 16.8 % (11.0-15.0); White Blood Count 8.8 10^3/uL (4.0-11.0)
[2024-01-07 10:38] VITALS: O2SAT 97
[2024-01-07 11:36] VITALS: BP 136/82; PULSE 77; O2SAT 99
[2024-01-07 11:46] LABS: Alanine Aminotransferase 30 U/L (16-63); Albumin Globulin Ratio 0.7; Albumin Level 3.2 g/dL (3.4-5.0); Alkaline Phosphatase 73 U/L (46-116); Anion Gap 12.6; Aspartate Amino Transferase 29 U/L (15-37); BUN Creatinine Ratio 19.8; Bilirubin Total 0.3 mg/dL (0.2-1.0); Calcium 9.4 mg/dL (8.5-10.1); Carbon Dioxide 26.8 mmol/L (21.0-32.0); Chloride 104 mmol/L (98-107); Estimated GFR (African America >60 (>=60); Estimated GFR (Non-African Ame >60 (>=60); Globulin 4.6 g/dL; Glucose 113 mg/dL (74-106); Potassium 4.4 mmol/L (3.5-5.1); Sodium 139 mmol/L (136-145); Total Protein 7.8 g/dL (6.4-8.2)
[2024-01-07] MEDS: ORPHENADRINE 60 MG/ 2 ML VIAL IV (12:02)
[2024-01-07 12:16] LABS: Bilirubin Urine NEGATIVE (NEGATIVE); Blood Urine NEGATIVE (NEGATIVE); Clarity Urine CLEAR (CLEAR); Color Urine YELLOW (YELLOW); Glucose Urine UA NEGATIVE (NEGATIVE); Ketones Urine NEGATIVE (NEGATIVE); Leukocyte Esterase Urine NEGATIVE (NEGATIVE); Nitrite Urine NEGATIVE (NEGATIVE); Protein Urine NEGATIVE (NEG/TRACE); Specific Gravity Urine >=1.030 (1.005-1.025); Urobilinogen Urine 0.2 EU/dL (0.2-1.0)
[2024-01-07 12:17] LABS: Urine Microscopic Indicated NO
[2024-01-07 12:51] VITALS: BP 136/89; PULSE 87; O2SAT 99
== END 2024-01-07 12:52 | disposition home or self-care (01) ==
PROVIDERS: Emergency Provider Emergency Medicine; PCP Nurse Practitioner
DX: S39.012A Strain of muscle, fascia and tendon of lower back, initial encounter (principal); Z79.899 Other long term (current) drug therapy; M19.90 Unspecified osteoarthritis, unspecified site; G47.33 Obstructive sleep apnea (adult) (pediatric)
CPT/HCPCS: 36415; 74176; 80053; 81003; 85025; 96374; 96375; 99284

== ENCOUNTER 2024-02-06 07:37 | Outpatient (OUT) | payer BC, SELFPAY ==
--- OUTSIDE RECORDS SUMMARY | 2024-02-06 07:40 | XMS_ITS | CCD ---
Author Organization [facility] CliniSymn Care Team Providers Care Hay Farmer Name Role Phone MAZIN CANO Admitting Unavailable MAZIN CANO Attending Unavailable SHEILA, DR LULU Tejeda Primary Care Unavailable WEST, DR KELLIE Benavides Consulting Unavailable MAZIN CANO Consulting Unavailable SHEILA, DR LULU Tejeda Admitting Unavailable BLANK, DR LULU Tejeda Attending Unavailable BLANK, DR LULU Tejeda Primary Care Unavailable BLANK, DR LULU Tejeda Consulting Unavailable WEST, DR KELLIE Benavides Consulting Unavailable SHEILA, DR LULU Tejeda Admitting Unavailable BLANK, DR LULU Tejeda Attending Unavailable BLANK, DR LULU Tejeda Primary Care Unavailable BLANK, DR LULU Tejeda Consulting Unavailable BLANK, DR LULU Tejeda Primary Care Unavailable FOZIA UGALDE Consulting Unavailable TRAM, FOZIA Admitting Unavailable TRAM, FOZIA Attending Unavailable Torsten, Alexia Sewell Primary Care Physician Sita CORRIGAN, Wilbert Guardado Attending Unavailable Sita CORRIGAN, Wilbert Guardado Attending Unavailable TORSTEN, ALEXIA Referring Unavailable TORSTEN, ALEXIA Referring Unavailable Torsten, Alexia Sewell Attending Unavailable Torsten, Alexia Sewell Attending Unavailable Torsten, Alexia Sewell Attending Unavailable Torsten, Alexia Sewell Attending Unavailable Torsten, Alexia Sewell Attending Unavailable Torsten, Alexia L Attending Unavailable Torsten, Alexia L Attending Unavailable Torsten, Alexia L Attending Unavailable Torsten, Alexia L Admitting Unavailable Torsten, Alexia L Attending Unavailable Torsten, Alexia L Attending Unavailable Torsten, Alexia L Admitting Unavailable Torsten, Alexia L Attending Unavailable Medications Current Medications Medication Drug [...] D DEFICIENCY UNSPECIFIED] Onset: 07-31-2022 Chronic Other nervous system disorders (1 source) Difficulty in walking, not elsewhere classified; Translations: [Difficulty in walking, not elsewhere classified] Onset: 01-23-2024 Chronic Other nutritional; endocrine; and metabolic disorders [...] Spondylosis; intervertebral disc disorders; other back problems (2 sources) Sciatica; Translations: [Lumbago with sciatica, left side] Onset: 01-23-2024 03-19-2023 Episodic Unclassified (1 source) CONTACT W/AND [...] Value Interpretation Reference Range Facility RAD - MRI Reporton RAD - MRI Report [id number] .00TIFF Normal [facility] MRI LUMBAR SPINE WO CONTRAST on 01-23-2024 MRI LUMBAR SPINE WO CONTRAST EXAMINATION: MRI OF THE LUMBAR SPINE WITHOUT CONTRAST, 01/23/2024 2:11 pm TECHNIQUE: Multiplanar multisequence MRI of the lumbar spine was performed without the administration of intravenous contrast. COMPARISON: None. HISTORY: ORDERING SYSTEM PROVIDED HISTORY: Left-sided low back pain with sciatica, sciatica laterality unspecified, unspecified chronicity, Difficulty in walking TECHNOLOGIST PROVIDED HISTORY: What reading provider will be dictating this exam?->CRC FINDINGS: BONES/ALIGNMENT: Lumbar spine alignment anatomic. Bone marrow signal within normal limits. There is loss of T2 bright signal intensity at all disc levels compatible desiccation. Vertebral body axial heights maintained. Vertebral body hemangioma L4 incidentally noted. SPINAL CORD: The conus terminates normally. SOFT TISSUES: No paraspinal mass identified. L1-L2: No disc bulge or protrusion. Mild facet arthropathy. No significant central canal stenosis or neural foraminal compromise. L2-L3: No disc bulge or protrusion. Bfky-ey-xwsybymt facet arthropathy. No significant central canal stenosis. Mild bilateral neural foraminal compromise. L3-L4: Mild circumferential disc bulge. Moderate facet arthropathy. No significant central canal stenosis. Moderate bilateral neural foraminal compromise. L4-L5: Moderate circumferential disc bulge. Advanced facet arthropathy. Moderate central canal stenosis. Moderate this of ear bilateral neural foraminal compromise. L5-S1: Mild circumferential disc bulge. Moderate facet arthropathy. No significant central canal stenosis. Moderate bilateral neural foraminal compromise greater on the left. IMPRESSION: Multilevel degenerative change as detailed Interpreted by: Carson Linares DO Signed by: Carson Linares DO 01/24/24 Final result Normal [facility] MRI THORACIC SPINE WO CONTRA STon 01-23-2024 MRI THORACIC SPINE WO CONTRAST EXAMINATION: MRI OF THE THORACIC SPINE WITHOUT CONTRAST 01/23/2024 2:10 pm TECHNIQUE: Multiplanar multisequence MRI of the thoracic spine was performed without the administration of intravenous contrast. COMPARISON: None. HISTORY: ORDERING SYSTEM PROVIDED HISTORY: Left-sided low back pain with sciatica, sciatica laterality unspecified, unspecified chronicity, Difficulty in walking TECHNOLOGIST PROVIDED HISTORY: What reading provider will be dictating this exam?->CRC FINDINGS: BONES/ALIGNMENT: There is normal alignment of the spine. The vertebral body heights are maintained. The bone marrow signal appears unremarkable. SPINAL CORD: No abnormal cord signal is seen. SOFT TISSUES: No paraspinal mass identified. DEGENERATIVE CHANGES: No significant spinal canal stenosis or neural foraminal narrowing of the thoracic spine. IMPRESSION: Unremarkable MRI thoracic spine without contrast. Interpreted by: Carson Linares DO Signed by: Carson Linares DO 01/24/24 Final result Normal [facility] Family Medicine Office/Clini c Noteon 01-17-2024 Family Medicine Office/Clinic Note HPI Staff Rakesh is a 48 year old male presenting for follow up on back pain VENANCIO 01/09/2024 Low back pain with left-sided sciatica was given ketorolac, MRI ordered pt tried to get it done Sunday but couldn't get done they didn't due to wasn't open MRI. MRI order was sent to [facility] in [place]. Pt states the burning sensation from sitting to stand is gone and he is able to drive and sit. When moving left leg forward he can feel pulling in his back also feels pressure in his back . rates pain 6/10 currently. He has a hard time sitting for long periods of time. Has been using heating pad and that does feel good. 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 History of Present Illness pt presents today for follow up on back pain. Review of Systems PHQ Score Initial Depression Screen Score: 0 SCORE Physical Exam Vitals & Measurements HR: 82(Peripheral) RR: 18 BP: 126/78 SpO2: 97% HT: 74 in HT: 187.5 cm WT: 183.0 kg WT: 402.6 lb BMI: 52.05 General: alert, no acute distress ENMT: oral mucosa moist, no pharyngeal erythema or exudate Cardiovascular: regular rate and rhythm, normal peripheral perfusion Respiratory: Lungs CTA, respirations non labored Extremities: no deformity, no trauma Neurological: oriented x 4, LOC appropriate for age, CN II-XII intact, motor strength equal & normal bilaterally, speech normal Assessment/Plan 1. Low back pain with left-sided sciatica (M54.42: Lumbago with sciatica, left side) pt states the pain has somewhat improved. was not able to get MRI done at [facility]. is waiting for PA for MRI in [place]. they have an open MRI machine. needs to go back to work. he is going to try to return tomorrow. steroid dose pack sent to pharmacy. RTC as needed 2. BMI 60.0-69.9, adult (Z68.44: Body mass index [BMI] 60.0-69.9, adult) BMI education complete Ordered: predniSONE, = 1 -, Oral, As Directed, Take 3 tabs by mouth daily x3 days, then 2 tabs daily x3 days, then 1 tab daily x3 days., # 18 tab(s), Refills(s) 0, Pharmacy: [id number], 187.5, cm, 01/16/24 13:46:00 EDT, Height/Length Dosing, 183, kg, 01/16/24 13:4... 3. Non-smoker (Z78.9: Other specified health status) continue not smoking Ordered: predniSONE, = 1 -, Oral, As Directed, Take 3 tabs by mouth daily x3 days, then 2 tabs daily x3 days, then 1 tab daily x3 days., # 18 tab(s), Refills(s) 0, Pharmacy: [facility] #[id number], 187.5, cm, 01/16/24 13:46:00 EDT, Height/Length Dosing, 183, kg, 01/16/24 13:4... Follow-up No qualifying data available Problem List/Past Medical History Ongoing Encounter for weight management Fatigue Hypogonadism male Left sciatic nerve pain Low back pain Low back pain with left-sided sciatica Morbid obesity due to excess calories Numbness and tingling of foot Wellness examination Historical No qualifying data Procedure/Surgical History Gastric sleeve. Medications cranberry oral capsule, See Instructions Fish Oil 500 mg oral capsule, 500 mg= 1 cap(s), Oral, Daily loratadine 10 mg oral capsule, 10 mg= 1 cap(s), Oral, Daily, PRN paroxetine 10 mg Tab, 10 mg= 1 tab(s), Oral, Daily, 3 refills predniSONE 10 mg Tab, 1 -, Oral, As Directed traMADOL 50 mg Tab, 50 mg= 1 tab(s), Oral, q6hr, PRN Allergies No Known Allergies Social History Tobacco Former smoker, quit more than 30 days ago Tobacco Use:. Never Smokeless Tobacco Use:. Household tobacco concerns: No., 01/16/2024 Family History Hypertension: Father. Immunizations Vaccine Date Status influenza virus vaccine, inactivated 05/31/2023 Recorded influenza virus vaccine, inactivated 06/07/2022 Recorded SARS-CoV-2 (COVID-19) mRNA BNT-162b2 vax 11/12/2020 Recorded SARS-CoV-2 (COVID-19) mRNA BNT-162b2 vax 10/22/2020 Recorded pneumococcal 23-valent vaccine 03/10/2019 Recorded Normal [facility] Comment on above: Result Comment: Elec tronically Signed By: Alexia Muhammad\.br\Date and Time Signed: 01/17/24 10:47 EDT Ambulatory Visit Summaryon 0 01-16-2024 Ambulatory Visit Summary RAKESH PIÑA :1975 Visit Date:01/16/2024 Ambulatory Visit Instructions Your Diagnosis BMI 60.0-69.9, adult Non-smoker Your Care Team Attending Physician - Alexia Muhammad Primary Care Physician - Alexia Muhammad This Is Your Medications List cranberry (cranberry oral capsule) loratadine (loratadine 10 mg oral capsule) omega-3 polyunsaturated fatty acids (Fish Oil 500 mg oral capsule) paroxetine (paroxetine 10 mg Tab) predniSONE (predniSONE 10 mg Tab) tramadol (traMADOL 50 mg Tab) Procedures Performed Gastric sleeve. Discharge Vitals Heart Rate (Peripheral) 82 Respiratory Rate 18 Blood Pressure 126/78 Height 187.5 cm Height 74 in Weight 183.0 kg Weight 402.6 lb BMI 52.05 Medications What How Much When Why Instructions New predniSONE (predniSONE 10 mg Tab) 1 Dose Separtor By Mouth As Directed BMI 60.0-69.9, adult Non-smoker Take 3 tabs by mouth daily x3 days, then 2 tabs daily x3 days, then 1 tab daily x3 days. Pickup at [facility]/pharmacy #[id number] Unchanged cranberry (cranberry oral capsule) See instructions 1 tablet daily Unchanged loratadine (loratadine 10 mg oral capsule) 1 Capsules By Mouth Every day as needed for Allergy symptoms Unchanged omega-3 polyunsaturated fatty acids (Fish Oil 500 mg oral capsule) 1 Capsules By Mouth Every day Unchanged paroxetine (paroxetine 10 mg Tab) 1 Tablets By Mouth Every day Unchanged tramadol (traMADOL 50 mg Tab) 1 Tablets By Mouth Every 6 hours as needed for Pain Non-smoker BMI 60.0-69.9, adult Pharmacy Information [facility]/pharmacy #[id number]: [address], [place] [id number] [phone] Allergies No Known Allergies Problems Ongoing - Any problem that you are currently receiving treatment for. Encounter for weight management Fatigue Hypogonadism male Left sciatic nerve pain Low back pain Low back pain with left-sided sciatica Morbid obesity due to excess calories Numbness and tingling of foot Wellness examination Patient Survey You may receive a survey via text or e-mail asking about your office visit. Please share your experience with us by completing your survey. We appreciate your feedback and thank you for choosing us for your care. [facility] Physician Orderon 01-14-2024 Physician Order [id number] .00TIFF [facility] Provider Letteron 01-14-2024 Provider Letter January 14, 2024 RAKESH PIÑA [address] [place] [id number] : 1975 To Whom It May Concern, Please excuse above patient from work. Date of Illness: From: 01/07/2024 To: 01/16/2024 May Return to Work On: 01/17/2024 Restrictions: None Comments: Sincerely, Family Medicine [address] [address] [facility] Ambulatory Visit Summaryon 0 01-09-2024 Ambulatory Visit Summary RAKESH PIÑA :1975 Visit Date:01/09/2024 Ambulatory Visit Instructions Your Diagnosis Low back pain with left-sided sciatica Non-smoker BMI 60.0-69.9, adult Your Care Team Attending Physician - Alexia Muhammad Primary Care Physician - Alexia Muhammad This Is Your Medications List cranberry (cranberry oral capsule) loratadine (loratadine 10 mg oral capsule) omega-3 polyunsaturated fatty acids (Fish Oil 500 mg oral capsule) paroxetine (paroxetine 10 mg Tab) tramadol (traMADOL 50 mg Tab) Procedures Performed Gastric sleeve. Discharge Vitals Heart Rate (Peripheral) 72 Respiratory Rate 18 Blood Pressure 154/100 Height 187.5 cm Height 74 in What to do next Scheduled Follow-Up Appointments Sunday. 2023 11:20 AM EDT With: Alexia Muhammad Where: [facility] [place] 01-09-2024 Consent [id number]#1 .00TIFF [facility] ED Note-Physicianon 01-09-20 ED Note-Physician [id number]# 1.00TIFF [facility] Family Medicine Office/Clini c Noteon 01-09-2024 Family Medicine Office/Clinic Note HPI Staff Rakesh is a 48 year old male presenting for ER follow up ER followup: Hospital: [facility] Visit date: 01/07/24 Symptoms the patient presented with: left low back pain Symptom onset/injury onset: Testing Performed: labs New medications: New specialist involved Therapy ordered: Next appointment date: Current concerns: CT results in chart Symptoms started Sunday morning when 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 unable to lift left leg up had to shuffle feet to walk. Pain is constant aching, burning left flank. Only time he gets relief is when he is laying completed flat. no injury that we know of. medication prescribed at ER isn't doing anything. Pt does feel pressure gas does feel like he needs to go to the bathroom. 2 weeks ago pt did have left hip injection and then few weeks after that he did c/o back hurting but nothing like now. History of Present Illness pt presents today for severe back pain that radiates down left side Review of Systems PHQ Score Initial Depression Screen Score: 0 SCORE Physical Exam Vitals & Measurements HR: 72(Peripheral) RR: 18 BP: 154/100 SpO2: 98% HT: 74 in HT: 187.5 cm General: alert, no acute distress ENMT: oral mucosa moist, no pharyngeal erythema or exudate Cardiovascular: regular rate and rhythm, normal peripheral perfusion Respiratory: Lungs CTA, respirations non labored Extremities: no deformity, no trauma Neurological: oriented x 4, LOC appropriate for age, CN II-XII intact, motor strength equal & normal bilaterally, speech normal limited mobility and difficulty lifting leg due to severe pain Assessment/Plan 1. Low back pain with left-sided sciatica (M54.42: Lumbago with sciatica, left side) pt c/o severe low back pain. went to ER and they did CT of abdomen. but no images of his back. but he did have a back x ray not long ago for the hip pain he was previously having. pt is currently on steroid and was taking celebrex until he started the meds the ER gave him. Has been to physical therapy in October. will order MRI. pt will return on Sunday. will be off of work from Tuesdays this week until Sunday next week. RTC Sunday. pt will get 60 kenalog and 60 of toradol in office today. he will restart Celebrex in 48 hours. tramadol also sent to pharmacy. pt is visibly uncomfortable due to the pain. he is not even able to sit down in exam room. Ordered: ketorolac, 60 mg = 2 mL, Injection, IntraMuscular, Once, Stop date 01/09/24 11:21:00 EDT, Routine, Start date 01/09/24 11:21:00 EDT, 01/09/24 11:21:00 EDT triamcinolone, 60 mg = 1.5 mL, Injection, IntraMuscular, Once, Stop date 01/09/24 11:20:00 EDT, Routine, Start date 01/09/24 11:20:00 EDT, 01/09/24 11:20:00 EDT 2. Non-smoker (Z78.9: Other specified health status) continue not smoking Ordered: ketorolac, 60 mg = 2 mL, Injection, IntraMuscular, Once, Stop date 01/09/24 11:21:00 EDT, Routine, Start date 01/09/24 11:21:00 EDT, 01/09/24 11:21:00 EDT tramadol, 50 mg = 1 tab(s), Oral, q6hr, PRN Pain, # 60 tab(s), Refills(s) 0, Pharmacy: [facility]/pharmacy #[id number], 187.5, cm, 01/09/24 10:51:00 EDT, Height/Length Dosing, 187.5, kg, 08/23/23 9:30:00 EST, Weight Dosing triamcinolone, 60 mg = 1.5 mL, Injection, IntraMuscular, Once, Stop date 01/09/24 11:20:00 EDT, Routine, Start date 01/09/24 11:20:00 EDT, 01/09/24 11:20:00 EDT 3. BMI 60.0-69.9, adult (Z68.44: Body mass index [BMI] 60.0-69.9, adult) BMI education complete Ordered: ketorolac, 60 mg = 2 mL, Injection, IntraMuscular, Once, Stop date 01/09/24 11:21:00 EDT, Routine, Start date 01/09/24 11:21:00 EDT, 01/09/24 11:21:00 EDT tramadol, 50 mg = 1 tab(s), Oral, q6hr, PRN Pain, # 60 tab(s), Refills(s) 0, Pharmacy: [facility]/pharmacy #[id number], 187.5, cm, 01/09/24 10:51:00 EDT, Height/Length Dosing, 187.5, kg, 08/23/23 9:30:00 EST, Weight Dosing triamcinolone, 60 mg = 1.5 mL, Injection, IntraMuscular, Once, Stop date 01/09/24 11:20:00 EDT, Routine, Start date 01/09/24 11:20:00 EDT, 01/09/24 11:20:00 EDT Orders: phentermine, 37.5 mg = 1 tab(s), Oral, Daily, # 30 tab(s), Refills(s) 0, Pharmacy: [facility], 176.5, cm, 07/26/23 9:32:00 EST, Height/Length Dosing, 187.2, kg, 07/26/23 9:32:00 EST, Weight Dosing Follow-up No qualifying data available Problem List/Past Medical History Ongoing Encounter for weight management Fatigue Hypogonadism male Left sciatic nerve pain Low back pain Low back pain with left-sided sciatica Morbid obesity due to excess calories Numbness and tingling of foot Wellness examination Historical No qualifying data Procedure/Surgical History Gastric sleeve. Medications cranberry oral capsule, See Instructions Fish Oil 500 mg oral capsule, 500 mg= 1 cap(s), Oral, Daily loratadine 10 mg oral capsule, 10 mg= 1 cap(s), Oral, Daily, PRN paroxetine 10 mg Tab, 10 mg= 1 tab(s), Oral, Daily, 3 refills traMADOL 50 mg Tab, 50 mg= 1 tab(s), Oral, q6hr, PRN Allergies No Known Allergies Social Hi (more content not included)... [facility] Comment on above: Result Comment: Elec tronically Signed By: Alexia Muhammad\.br\Date and Time Signed: 01/09/24 11:25 EDT Physician Orderon 01-09-2024 Physician Order [id number] .00TIFF [facility] Provider Letteron 01-09-2024 Provider Letter January 09, 2024 RAKESH PIÑA [address] [place] [id number] : 1975 To Whom It May Concern, Please excuse above patient from work due to medical Date of Illness: From: _01-08-24 To: _01-14-24 May Return to Work On:01-15-24 Restrictions: _ Comments: _ Sincerely, Family Medicine [address] [facility] RAD - CT Reporton 01-09-2024 RAD - CT Report [id number] [facility] ED Note-Physicianon 01-08-20 24 ED Note-Physician [id number]#[address] [facility] RAD - CT Reporton 01-08-2024 RAD - CT Report [id number]#[address] [facility] Operative Reporton Operative Report [id number]#1 .00TIFF [facility] Consultation Noteon 11-07-19 24 Consultation Note [id number]#1 .00TIFF [facility] PT - Progress Noteson 2023 PT - Progress Notes [id number]#1 .00TIFF [facility] RAD - MISCon 10-29-2023 RAD - MISC [id number]#1 .00TIFF [facility] Retail - Clinical Noteon Retail - Clinical Note [id number]#1 .00TIFF [facility] Plan of Care - PT/OT/Speecho n 09-06-2023 Plan of Care - PT/OT/Speech [id number]#1 .00TIFF [facility] Physician Referralon 023 Physician Referral [id number]# 1.00TIFF Normal [facility] Testost Totalon 08-25-2023 Testosterone [Mass/Vol] 321 ng/dL Invalid Interpretation Code [id number] [facility] Comment on above: Result Comment: Adul t male reference interval is based on a population of healthy nonobese males (BMI <30) between 19 and 39 years old. Iron et.al. JCEM 2017,102;3477-1837. PMID: [id number]. Performed at: [facility] [id number] PhD Domenic Rider Performed By: #### 2 [id number] ####[facility] [id number] [place] [address] Reminderson 08-24-2023 Reminders - From: Alexia Muhammad [...] left detailed message for patient below Normal [facility] Family Medicine Office/Clini c Noteon 08-23-2023 [...] thing was in slow motion. 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 He would [...] he would like referral to PT at [facility] for bakc/leg pain. gabapentin and muscles relaxers did not help. 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 all questions answered. RTC as needed Ordered: cyclobenzaprine, 10 mg = 1 tab(s), Oral, Bedtime, PRN for spasm, # 30 tab(s), Refills(s) 0, Pharmacy: [facility], 176.5, cm, 07/26/23 9:32:00 EST, Height/Length Dosing, 187.2, kg, 07/26/23 9:32:00 EST, Weight Dosing gabapentin, 300 mg = 1 cap(s), Oral, Daily, # 30 cap(s), Refills(s) 0, Pharmacy: [facility], 176.5, cm, 07/26/23 9:32:00 EST, Height/Length Dosing, 187.2, kg, 07/26/23 9:32:00 EST, Weight Dosing 2. Fatigue (R53.83: Other fatigue) labs drawn today Ordered: Lab Specimen Collect [id number] Testosterone Level Total 3. Hypogonadism male (E29.1: Testicular hypofunction) testosterone ordered Ordered: Lab Specimen Collect [id number] Testosterone Level Total 4. BMI 60.0-69.9, adult (Z68.44: Body mass index [BMI] 60.0-69.9, adult) bmi education complete Ordered: cyclobenzaprine, 10 mg = 1 tab(s), Oral, Bedtime, PRN for spasm, # 30 tab(s), Refills(s) 0, Pharmacy: [facility], 176.5, cm, 07/26/23 9:32:00 EST, Height/Length Dosing, 187.2, kg, 07/26/23 9:32:00 EST, Weight Dosing gabapentin, 300 mg = 1 cap(s), Oral, Daily, # 30 cap(s), Refills(s) 0, Pharmacy: [facility], 176.5, cm, 07/26/23 9:32:00 EST, Height/Length Dosing, 187.2, kg, 07/26/23 9:32:00 EST, Weight Dosing Testosterone Level Total Vitamin B12 Level Vitamin D 25 Hydroxy Follow-up No qualifying data available Patient Education Obesity, Adult, Ompg-ve-Geza Problem List/Past Medical History Ongoing Encounter for [...] ago Tob (more content not included)... Normal [facility] Comment on above: Result Comment: Elec [...] food choices, such as grocery stores and [employer]. What are the signs or symptoms? The [...] How much exercise you get. ? Take clxv-akk-lufdkfa and prescription medicines only as told by [...] with yo (more content not included)... Normal [facility] Vit B12on 08-23-2023 Cobalamin (Vitamin B12) [Mass/Vol] 301 pg/mL Normal 50-1500 [facility] Comment on above: Performed By: #### 2 [id number], [id number] ####[facility] [id number] [place] [address] Vitamin D 25 Hydroxyon 08-23 Vitamin D 25 Hydroxy 57.7 ng/mL Normal 30.0-100.0 [facility] Comment on above: Performed By: #### 2 [id number], [id number] ####[facility] [id number] [place] [address] Ambulatory Visit Summaryon 09-25-2022 Ambulatory Visit Summary RAKESH PIÑA :1975 [...] 9:20 AM EST With: Alexia Muhammad Where: [facility] Family Medicine Office/Clini c Noteon 07-26-2023 Family [...] spasm, # 30 tab(s), Refills(s) 0, Pharmacy: [facility], 176.5, cm, 07/26/23 9:32:00 EST, Height/Length Dosing, 187.2, kg, 07/26/23 9:32:00 EST, Weight Dosing gabapentin, 300 mg = 1 cap(s), Oral, Daily, # 30 cap(s), Refills(s) 0, Pharmacy: [facility], 176.5, cm, 07/26/23 9:32:00 EST, Height/Length Dosing, 187.2, kg, 07/26/23 9:32:00 EST, Weight Dosing methylPREDNISolone, = 1 packet(s), Oral, As Directed, as directed on package labeling, X 6 day(s), # 21 tab(s), Refills(s) 0, Pharmacy: [facility], 176.5, cm, 07/26/23 9:32:00 EST, Height/Length [...] spasm, # 30 tab(s), Refills(s) 0, Pharmacy: [facility], 176.5, cm, 07/26/23 9:32:00 EST, Height/Length Dosing, 187.2, kg, 07/26/23 9:32:00 EST, Weight Dosing gabapentin, 300 mg = 1 cap(s), Oral, Daily, # 30 cap(s), Refills(s) 0, Pharmacy: [facility], 176.5, cm, 07/26/23 9:32:00 EST, Height/Length Dosing, 187.2, kg, 07/26/23 9:32:00 EST, Weight Dosing methylPREDNISolone, = 1 packet(s), Oral, As Directed, as directed on package labeling, X 6 day(s), # 21 tab(s), Refills(s) 0, Pharmacy: [facility], 176.5, cm, 07/26/23 9:32:00 EST, Height/Length Dosing, 187.2, kg, 07/26/23 9:32:00 EST, Weight Dosing 3. Numbness and tingling of foot (R20.0: Anesthesia of skin) discussed ENG results Ordered: cyclobenzaprine, 10 mg = 1 tab(s), Oral, Bedtime, PRN for spasm, # 30 tab(s), Refills(s) 0, Pharmacy: [facility], 176.5, cm, 07/26/23 9:32:00 EST, Height/Length Dosing, 187.2, kg, 07/26/23 9:32:00 EST, Weight Dosing gabapentin, 300 mg = 1 cap(s), Oral, Daily, # 30 cap(s), Refills(s) 0, Pharmacy: [facility], 176.5, cm, 07/26/23 9:32:00 EST, Height/Length Dosing, 187.2, kg, 07/26/23 9:32:00 EST, Weight Dosing methylPREDNISolone, = 1 packet(s), Oral, As Directed, as directed on package labeling, X 6 day(s), # 21 tab(s), Refills(s) 0, Pharmacy: [facility], 176.5, cm, 07/26/23 9:32:00 EST, Height/Length Dosing, 187.2, kg, 07/26/23 9:32:00 EST, Weight Dosing 4. Class 3 obesity (E66.01: Morbid (severe) obesity due to excess calories) pt continues with diet Ordered: cyclobenzaprine, 10 mg = 1 tab(s), Oral, Bedtime, PRN for spasm, # 30 tab(s), Refills(s) 0, Pharmacy: [facility], 176.5, cm, 07/26/23 9:32:00 EST, Height/Length Dosing, 187.2, kg, 07/26/23 9:32:00 EST, Weight Dosing gabapentin, 300 mg = 1 cap(s), Oral, Daily, # 30 cap(s), Refills(s) 0, Pharmacy: [facility], 176.5, cm, 07/26/23 9:32:00 EST, Height/Length Dosing, 187.2, kg, 07/26/23 9:32:00 EST, Weight Dosing methylPREDNISolone, = 1 packet(s), Oral, As Directed, as directed on package labeling, X 6 day(s), # 21 tab(s), Refills(s) 0, Pharmacy: [facility], (more content not included)... [facility] Comment on above: Result Comment: Elec tronically Signed By: Alexia Muhammad\.br\Date and Time Signed: 07/26/23 09:54 EST EMG Electromyographyon 07-10 EMG Electromyography [id number] .00TIFF [facility] EMG Electromyography [id number]#1. 00TIFF [facility] Physician Referralon 023 Physician Referral [id number]# 1.00TIFF [facility] Ambulatory Visit Summaryon Ambulatory Visit Summary RAKESH PIÑA DOB:1975 Visit Date:06/21/2023 Ambulatory Visit Instructions Your Diagnosis [...] 9:20 AM EST With: Alexia Muhammad Where: [facility] c Noteon 06-21-2023 Family [...] day(s), # 30 tab(s), Refills(s) 1, Pharmacy: [facility], 176.5, cm, 06/21/23 9:41:00 EDT, Height/Length Dosing, 186.7, kg, 06/21/23 9:41:00 EDT, Weight Dosing meloxicam, 15 mg = 1 tab(s), Oral, Daily, X 30 day(s), # 30 tab(s), Refills(s) 0, Pharmacy: [facility], 176.5, cm, 06/21/23 9:41:00 EDT, Height/Length Dosing, 186.7, kg, 06/21/23 9:41:00 EDT, Weight Dosing meloxicam, 15 mg = 1 tab(s), Oral, Daily, # 30 tab(s), Refills(s) 1, Pharmacy: [facility], 176.5, cm, 05/22/23 9:51:00 EDT, Height/Length Dosing, 190.2, kg, 05/22/23 9:51:00 EDT, Weight Dosing 2. Left sciatic nerve pain (M54.32: Sciatica, left side) pt continues to have left sciatic nerve pain but it is improved Ordered: meloxicam, 15 mg = 1 tab(s), Oral, Daily, X 30 day(s), # 30 tab(s), Refills(s) 1, Pharmacy: [facility], 176.5, cm, 06/21/23 9:41:00 EDT, Height/Length Dosing, 186.7, kg, 06/21/23 9:41:00 EDT, Weight Dosing meloxicam, 15 mg = 1 tab(s), Oral, Daily, X 30 day(s), # 30 tab(s), Refills(s) 0, Pharmacy: [facility], 176.5, cm, 06/21/23 9:41:00 EDT, Height/Length Dosing, 186.7, kg, 06/21/23 9:41:00 EDT, Weight Dosing meloxicam, 15 mg = 1 tab(s), Oral, Daily, # 30 tab(s), Refills(s) 1, Pharmacy: [facility], 176.5, cm, 05/22/23 9:51:00 EDT, Height/Length Dosing, 190.2, kg, 05/22/23 9:51:00 EDT, Weight Dosing phentermine, 37.5 mg = 1 tab(s), Oral, Daily, X 30 day(s), # 30 tab(s), Refills(s) 0, Pharmacy: [facility], 176.5, cm, 05/22/23 9:51:00 EDT, Height/Length Dosing, 190.2, kg, 05/22/23 9:51:00 EDT, Weight Dosing [facility] External Ambulatory Referral 3. Lower extremity numbness (R20.0: Anesthesia of skin) EMG order sent to [facility] in [place] Ordered: [facility] External Ambulatory Referral 4. Morbid obesity due to excess calories (E66.01: Morbid (severe) obesity due to excess calories) BMI education complete Ordered: meloxicam, 15 mg = 1 tab(s), Oral, Daily, X 30 day(s), # 30 tab(s), Refills(s) 1, Pharmacy: [facility], 176.5, cm, 06/21/23 9:41:00 EDT, Height/Length Dosing, 186.7, kg, 06/21/23 9:41:00 EDT, Weight Dosing meloxicam, 15 mg = 1 tab(s), Oral, Daily, X 30 day(s), # 30 tab(s), Refills(s) 0, Pharmacy: [facility], 176.5, cm, 06/21/23 9:41:00 EDT, Height/Length Dosing, 186.7, kg, 06/21/23 9:41:00 EDT, Weight Dosing meloxicam, 15 mg = 1 tab(s), Oral, Daily, # 30 tab(s), Refills(s) 1, Pharmacy: [facility], 176.5, cm, 05/22/23 9:51:00 EDT, Height/Length Dosing, 190.2, kg, 05/22/23 9:51:00 EDT, Weight Dosing phentermine, 37.5 mg = 1 tab(s), Oral, Daily, X 30 day(s), # 30 tab(s), Refills(s) 0, Pharmacy: [facility], 176.5, cm, 05/22/23 9:51:00 EDT, Height/Length Dosing, 190.2, kg, 05/22/23 9:51:00 EDT, Weight Dosing 5. BMI 50.0-59.9, adult (Z68.43: Body mass index [BMI] 50.0-59.9, adult) BMI education complete 6. Non-smoker (Z78.9: Other specified health status) continue not smoking Ordered: meloxicam, 15 mg = 1 tab(s), Oral, Daily, X 30 day(s), # 30 tab(s), Refills(s) 1, Pharmacy: [facility], 176.5, cm, 06/21/23 9:41:00 EDT, Height/Length Dosing, 186.7, kg, 06/21/23 9:41:00 EDT, Weight Dosing meloxicam, 15 mg = 1 tab(s), Or (more content not included)... Normal [facility] Comment on above: Result Comment: Elec tronically Signed By: Torsten MONSIVAIS, Alexia Sewell\.br\Date and Time Signed: 06/21/23 14:25 EDT Ambulatory [...] AM EDT With: Alexia Muhammad Where: [facility] Ambulatory Visit Summary WANGRAKESH Janelle :1975 Visit Date:05/22/2023 Ambulatory Visit Instructions Your [...] Follow-Up Appointments 2022 9:20 AM EDT With: Alxeia Muhammad Where: [facility] c Noteon 05-22-2023 Family Medicine Office/Clinic Note HPI Staff Rakehs is a 48 year old male presenting [...] in his legs at night. 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 all questions answered. RTC 4 weeks Ordered: meloxicam, 15 mg = 1 tab(s), Oral, Daily, # 30 tab(s), Refills(s) 1, Pharmacy: [facility], 176.5, cm, 05/22/23 9:51:00 EDT, Height/Length Dosing, 190.2, kg, 05/22/23 9:51:00 EDT, Weight Dosing 2. Left sciatic nerve pain (M54.32: Sciatica, left side) will order antiinflammatory. steroid did not give him any relief Ordered: meloxicam, 15 mg = 1 tab(s), Oral, Daily, # 30 tab(s), Refills(s) 1, Pharmacy: [facility], 176.5, cm, 05/22/23 9:51:00 EDT, Height/Length Dosing, 190.2, kg, 05/22/23 9:51:00 EDT, Weight Dosing phentermine, 37.5 mg = 1 tab(s), Oral, Daily, X 30 day(s), # 30 tab(s), Refills(s) 0 phentermine, 37.5 mg = 1 tab(s), Oral, Daily, X 30 day(s), # 30 tab(s), Refills(s) 0, Pharmacy: [facility], 176.5, cm, 05/22/23 9:51:00 EDT, Height/Length Dosing, 190.2, kg, 05/22/23 9:51:00 EDT, Weight Dosing 3. BMI 60.0-69.9, adult (Z68.44: Body mass index [BMI] 60.0-69.9, adult) BMI education complete Ordered: meloxicam, 15 mg = 1 tab(s), Oral, Daily, # 30 tab(s), Refills(s) 1, Pharmacy: [facility], 176.5, cm, 05/22/23 9:51:00 EDT, Height/Length Dosing, 190.2, kg, 05/22/23 9:51:00 EDT, Weight Dosing 4. Morbid obesity due to excess calories (E66.01: Morbid (severe) obesity due to excess calories) see above Ordered: meloxicam, 15 mg = 1 tab(s), Oral, Daily, # 30 tab(s), Refills(s) 1, Pharmacy: [facility], 176.5, cm, 05/22/23 9:51:00 EDT, Height/Length Dosing, 190.2, kg, 05/22/23 9:51:00 EDT, Weight Dosing phentermine, 37.5 mg = 1 tab(s), Oral, Daily, X 30 day(s), # 30 tab(s), Refills(s) 0 phentermine, 37.5 mg = 1 tab(s), Oral, Daily, X 30 day(s), # 30 tab(s), Refills(s) 0, Pharmacy: [facility], 176.5, cm, 05/22/23 9:51:00 EDT, Height/Length Dosing, 190.2, kg, 05/22/23 9:51:00 EDT, Weight Dosing 5. Non-smoker (Z78.9: Other specified health status) continue not smoking Ordered: meloxicam, 15 mg = 1 tab(s), Oral, Daily, # 30 tab(s), Refills(s) 1, Pharmacy: [facility], 176.5, cm, 05/22/23 9:51:00 EDT, Height/Length Dosing, 190.2, kg, 05/22/23 9:51:00 EDT, Weight Dosing phentermine, 37.5 mg = 1 tab(s), Oral, Daily, X 30 day(s), # 30 tab(s), Refills(s) 0 phentermine, 37.5 mg = 1 tab(s), Oral, Daily, X 30 day(s), # 30 tab(s), Refills(s) 0, Pharmacy: [facility], 176.5, cm, 05/22/23 9:51:00 EDT, Height/Length [...] Daily Allerg (more content not included)... Normal [facility] Comment on above: Result Comment: Elec tronically Signed By: Alexia Muhammad\.br\Date and Time Signed: 05/22/23 10:34 EDT [place] 04-26-2023 Consent [id number] .00CD:[address] [facility] Family Medicine Office/Clini c Noteon 04-24-2023 [...] kenalog 60mg IM in office today. Normal [facility] Comment on above: Result Comment: Elec [...] 11:00 AM EDT With: Alexia Muhammad Where: [facility] Normal [facility] Auto Diffon 03-19-2023 Basophils/100 WBC (Bld) 0.3 % Normal 0.0-2.0 [facility] Comment on above: Order Comment: Order Added by Discern Expert. Performed By: #### 2 788527, 9761857, 8037071, 5143595, [id number] ####[facility] [address] [place] [address] Basophils/Leukocytes Auto (Bld) [Pure # fraction] 0.0 E9/L Normal 0.0-0.2 [facility] Comment on above: Order Comment: Order Added by Discern Expert. Performed By: #### 2 391616, 0775147, 0178238, 3980790, [id number] ####[address] [place] [address] Eosinophils/100 WBC (Bld) 2.1 % Normal 0.0-8.0 [facility] Comment on above: Order Comment: Order Added by Discern Expert. Performed By: #### 2 495847, 9114911, 1121338, 6574812, 68109625 ####[address] [address] Eosinophils/Leukocytes Auto (Bld) [Pure # fraction] 0.2 E9/L Normal 0.0-0.5 [facility] Comment on above: Order Comment: Order Added by Discern Expert. Performed By: #### 2 440744, 4600176, 0532652, 5300861, 20436639 ####[address] [address] Lymphocytes/100 WBC (Bld) 20.5 % Normal 14.0-50.0 [facility] Comment on above: Order Comment: Order Added by Discern Expert. Performed By: #### 2 129735, 8209553, 0937082, 8483209, 57891927 ####[address] [address] Lymphocytes/Leukocytes Auto (Bld) [Pure # fraction] 1.6 E9/L Normal 1.0-4.0 [facility] Comment on above: Order Comment: Order Added by Discern Expert. Performed By: #### 2 767231, 1985973, 2506192, 9951640, 86980053 ####[address] [address] Monocytes/100 WBC (Bld) 8.7 % Normal 4.0-14.0 [facility] Comment on above: Order Comment: Order Added by Discern Expert. Performed By: #### 2 239248, 6705649, 1277344, 7316384, 28225250 ####[address] [address] Monocytes/Leukocytes Auto (Bld) [Pure # fraction] 0.7 E9/L Normal 0.2-1.0 [facility] Comment on above: Order Comment: Order Added by Discern Expert. Performed By: #### 2 371087, 2585397, 6926642, 6552862, 06023311 ####[facility] [address] [place] [address] Neutrophils/100 WBC (Bld) 68.4 % Normal 36.0-75.0 [facility] Comment on above: Order Comment: Order Added by Discern Expert. Performed By: #### 2 048992, 2479572, 7280508, 9894726, 55894645 ####[facility] [address] [place] [address] Neutrophils/Leukocytes Auto (Bld) [Pure # fraction] 5.3 E9/L Normal 2.0-7.5 [facility] Comment on above: Order Comment: Order Added by Discern Expert. Performed By: #### 2 268117, 7556064, 8458903, 6830524, 57202072 ####[facility] [address] [place] [address] CBC w/ Auto Diffon 3 Erythrocyte distribution width (RBC) [Ratio] 16.3 % High 10.9-14.2 [facility] Comment on above: Performed By: #### 2 457007, 1691229, 3269727, 2134873, 38701660 #### [facility] [address] [place] [address] Hematocrit (Bld) [Volume fraction] 43.7 % Normal 37.7-49.0 [facility] Comment on above: Performed By: #### 2 325546, 0135365, 1569815, 5702223, 21507690 #### [facility] [address] [place] [address] Hemoglobin (Bld) [Mass/Vol] 14.4 g/dL Normal 13.5-17.5 [facility] Comment on above: Performed By: #### 2 644505, 3234229, 7814975, 8269908, 64928209 #### [facility] [address] [place] [address] MCH (RBC) [Entitic mass] 27.9 pg Normal 27.0-34.0 [facility] Comment on above: Performed By: #### 2 346182, 0599050, 7641235, 7782451, 66101846 #### [facility] [address] [place] [address] MCHC (RBC) [Mass/Vol] 33.0 g/dL Normal 31.4-36.0 [facility] Comment on above: Performed By: #### 2 154059, 8939198, 4128870, 4767863, 62763785 #### [facility] [address] [place] [address] MCV (RBC) [Entitic vol] 84.8 fL Normal 80.0-100.0 [facility] Comment on above: Performed By: #### 2 499207, 3615611, 7730344, 0341383, 70372830 #### [facility] [address] [place] [address] Platelet mean volume (Bld) [Entitic vol] 7.7 fL Normal 6.4-10.8 [facility] Comment on above: Performed By: #### 2 726477, 5391434, 1008966, 6880482, 17808205 #### [facility] [address] [place] [address] Platelets (Bld) [#/Vol] 278.0 E9/L Normal 150.0-500.0 [facility] Comment on above: Performed By: #### 2 475123, 2031524, 3591000, 6232438, 25179597 #### [facility] [address] [place] [address] RBC (Bld) [#/Vol] 5.2 E12/L Normal 4.3-5.9 [facility] Comment on above: Performed By: #### 2 502286, 4117082, 6476532, 3878253, 54382148 #### [facility] [address] [place] [address] WBC corrected for nucl RBC Auto (Bld) [#/Vol] 7.7 E9/L Normal 4.0-11.0 [facility] Comment on above: Performed By: #### 2 832280, 4828813, 3580868, 5074219, 06311498 #### [facility] [address] [place] [address] CHEMISTRYOrdered By: SYSTEM SYSTEM on 03-19-2023 Cholesterol [...] Daily, # 30 tab(s), Refills(s) 0, [id number] 176[facility], cm, 03/19/23 13:15:00 EDT, Height/Length Dosing CBC w/ Auto Diff Cologuard Screening Test Lipid Panel PSA Screen, Total Thyroid Stimulating Hormone 3. Non-smoker (Z78.9: Other specified health status) continue not smoking Ordered: methylPREDNISolone, = 1 packet(s), Oral, As Directed, as directed on package labeling, X 6 day(s), # 21 tab(s), Refills(s) 0, [facility] 176[facility]5, cm, 03/19/23 13:15:00 EDT, Height/Length Dosing phentermine, 37.5 mg = 1 tab(s), Oral, Daily, # 30 tab(s), Refills(s) 0, [facility] 176[facility]5, cm, 03/19/23 13:15:00 EDT, [...] screening (Z12.11: (more content not included)... Normal [facility] Comment on above: Result Comment: Elec tronically Signed By: Alexia Muhammad\.br\Date and Time Signed: 03/19/23 14:00 EDT Formson 03-19-2023 Forms [id number] .00CD:[address] [facility] HEMATOLOGYOrdered By: SYSTEM SYSTEM on 03-19-2023 [...] 5.3 E9/L Normal 2.0 - 7.5 E9/L FT HemeAutoSS HEMATOLOGYOrdered By: Vaughn Chin on 03-19-2023 Erythrocyte distribution width (RBC) [Ratio] 16.3 % High 10.9 - 14.2 % FT HemeAutoSS Hematocrit (Bld) [Volume fraction] 43.7 % Normal 37.7 - 49.0 % FT HemeAutoSS Hemoglobin (Bld) [Mass/Vol] 14.4 g/dL Normal 13.5 - 17.5 gm/dL FT HemeAutoSS MCH (RBC) [Entitic mass] 27.9 pg Normal 27.0 - 34.0 pg FT HemeAutoSS MCHC (RBC) [Mass/Vol] 33.0 g/dL Normal 31.4 - 36.0 gm/dL FT [facility]eAutoSS MCV (RBC) [Entitic vol] 84.8 fL Normal 80.0 - 100.0 fL FT HemeAutoSS Platelet mean volume (Bld) [Entitic vol] 7.7 fL Normal 6.4 - 10.8 fL FT HemeAutoSS Platelets (Bld) [#/Vol] 278.0 E9/L Normal 150.0 - 500.0 E9/L FT HemeAutoSS RBC (Bld) [#/Vol] 5.2 E12/L Normal 4.3 - 5.9 E12/L FT HemeAutoSS WBC corrected for nucl RBC Auto (Bld) [#/Vol] 7.7 E9/L Normal 4.0 - 11.0 E9/L [facility] HemeAutoSS Lipid Panelon 03-19-2023 Cholesterol [Mass/Vol] 171 mg/dL Normal 120-200 [facility] Comment on above: Performed By: #### 2 800945, 6915553, 6301425, 3343008, 05878520 ####[facility] [address] [place] [address] Cholesterol in HDL [Mass/Vol] 39 mg/dL Invalid Interpretation Code [facility] Comment on above: Result Comment: HDL > or equal to 60 mg/dL: Low cardiovascular risk HDL < 40 mg/dL : High cardiovascular risk Performed By: #### 2 051761, 4869916, 1007167, 3208471, 48677612 ####[facility] [address] [place] [address] Cholesterol in LDL [Mass/Vol] 112 mg/dL Normal <=129 [facility] Comment on above: Performed By: #### 2 732858, 9066711, 8846228, 6437351, 79253064 ####[facility] [address] [place] [address] Cholesterol in VLDL [Mass/Vol] 19 mg/dL Normal 7-40 [facility] Comment on above: Performed By: #### 2 932113, 8224787, 7189185, 0197191, 74482373 ####[facility] [address] [place] [address] Triglyceride [Mass/Vol] 94 mg/dL Normal <=149 [facility] Comment on above: Performed By: #### 2 662501, 4410254, 7577950, 5288759, 11146348 ####[facility] [address] [place] [address] PSA Screen, Totalon 03-19-20 23 Prostate specific Ag [Mass/Vol] 0.9 ng/mL Normal 0.1-3.5 [facility] Comment on above: Result Comment: The concentration of PSA determined by different manufacturers can vary due to differences in assay methods and reagent specificity. Values obtained from different assay methods cannot be used interchangeably. The methodology used for this result was chemiluminescence using [employer]'s Access Hybritech PSA reagent. Performed By: #### 2 898254, 8047817, 9455448, 6872261, 95041871 ####[facility] [address] [place] [address] TSHon 03-19-2023 TSH Qn 2.03 m[IU]/L Normal 0.34-5.60 [facility] Comment on above: Performed By: #### 2 755297, 1168138, 3079505, 9617681, 80132296 ####[facility] [address] [place] [address] Covid-19 PCR (CVDTBH)on 07-11 SARS-CoV-2 (COVID-19) RNA BETHANY+probe Ql (Unsp spec) Not detected Normal NOT DETECTED [facility] Comment on above: Result Comment: [...] for this test is supported by the Dry Cleaning Manager of Health and Human Service's declaration that [...] used). Performed By: #### C VDTBH #### [facility] [address] [place] [address] Dr. Mynor Yun GROUP A STREP CULTUREon 07-11 S. pyogenes Ag Ql (Unsp spec) Culture Observations: NEGATIVE FOR GROUP A STREPTOCOCCUS. Normal [facility] Comment on above: Performed By: #### G RASTCX #### [facility] [address] [place] [address] Dr. Mynor Yun INFLUENZA A AND B AGon 07-28 INFLUANEGH SEE BELOW Normal [facility] Comment on above: Result Comment: Nega tive for Flu A protein angiten. Infection due to Flu A cannot be ruled out. Flu A angiten in the sample may be below the detection limit of the test. Performed By: #### I NFLUAB #### [facility] [address] [place] [address] Dr. Mynor Yun INFLUBNEG SEE BELOW Normal [facility] Comment on above: Result Comment: Nega tive for Flu B protein antigen. Infection due to Flu B cannot be ruled out. Flu B antigen in the sample may be below the detection limit of the test. Performed By: #### I NFLUAB #### [facility] [address] [place] [address] Dr. Mynor Yun INFLUENZA A AG Negative Normal NEGATIVE SEE COMMENT [facility] Comment on above: Performed By: #### I NFLUAB #### [facility] [address] [place] [address] Dr. Mynor Yun INFLUENZA B AG Negative Normal NEGATIVE SEE COMMENT [facility] Comment on above: Performed By: #### I NFLUAB #### [facility] [address] [place] [address] Dr. Mynor Yun INTERNAL CONTROLS Within Normal Limits Normal Wi thin Normal Limits [facility] Comment on above: Performed By: #### I NFLUAB #### [facility] [address] [place] [address] Dr. Mynor Yun STREPT SCREENon 07-28-2022 STREP SCREEN A Negative Normal NEGATIVE [facility] Comment on above: Performed By: #### S SCRN #### [facility] [address] [place] [address] Dr. Mynor Yun XR SINUSES 3 VIEWS [...] KELLIE SMALLS Date: 2022-02-01 09:58 Normal [facility] HAND LEFT 3 Son 12-29-2021 HAND LEFT 3 [facility] Department of Radiology [address] [place] [phone] Patient Name: RAKESH PIÑA : 1975 Sex: M Age: Race: White Pt. Location: 84 Patient Status: D Ordered Date: 12/29/2021 11:45:00 AM Completed Date: 12/29/2021 11:50 AM Requesting Provider: LORI DALLAS Attending Provider: LORI DALLAS Report Copy To: Signs & Symptoms: M79.642 Pain in left hand I10 History: Comments: Evaluate Exam: HAND LEFT 3 [facility] HAND LEFT 3 [facility] 12/29/2021 11:50 AM CLINICAL INDICATIONS: M79.642 [...] alignment. Electronically signed: Heather [place]. Transcribed by: [email or web address], User Resident: Electronically Signed by: HEATHER MONTANA @ 12/31/2021 08:55 AM Normal [facility] Comment on above: Order Comment: Evalu ate HAND LEFT 3 [facility] 12-08-2021 HAND LEFT 3 [facility] Department of Radiology [address] [place] [phone] Patient Name: RAKESH PIÑA : 1975 Sex: M Age: Race: White Pt. Location: 84 Patient Status: D Ordered Date: 12/08/2021 1:25:00 PM Completed Date: 12/08/2021 01:29 PM Requesting Provider: LORI DALLAS Attending Provider: LORI DALLAS Report Copy To: Signs & Symptoms: M79.642 Pain in left hand I10 History: [place] Comments: Evaluate Exam: HAND LEFT 3 [facility] HAND LEFT 3 S 12/08/2021 1:29 PM [...] bridging. Electronically signed: Ronaldo Major. Transcribed by: [email or web address], User Resident: Electronically Signed by: RONALDO MAJOR @ 12/09/2021 04:04 PM Normal [facility] Comment on above: Order Comment: Evalu ate HAND LEFT 3 [facility] 11-14-2021 HAND LEFT 3 [facility] Department of Radiology [address] [place] [id number] Patient Name: RAKESH PIÑA : 1975 Sex: M Age: Race: White Pt. Location: 84 Patient Status: O Ordered Date: 11/14/2021 1:50:00 PM Completed Date: 11/14/2021 01:58 PM Requesting Provider: CAPRICE CHAMBERS Attending Provider: CAPRICE CHAMBERS Report Copy To: Signs & Symptoms: S62.306A Unsp fracture of fifth metacarpal bone, left hand, init I10 History: Comments: Views (X-RAY, HAND): PA, Lateral, Oblique Exam: HAND LEFT 3 VWS HAND LEFT 3 VWS 11/14/2021 1:58 PM [...] fracture. Electronically signed: Ramirez Smith. Transcribed by: [email or web address], User Resident: Electronically Signed by: RAMIREZ SMITH @ 11/14/2021 08:02 PM Normal [facility] Comment on above: Order Comment: Views (X-RAY, HAND): PA, Lateral, Oblique TESTOSTERONE, TOTALon 2021 Testosterone [Mass/Vol] 411 ng/dL Normal 264-916 [facility] Comment on above: Result Comment: Adul t male reference interval is based on a population of healthy nonobese males (BMI <30) between 19 and 39 years old. et. Ironal. JCEM 2017,102;3838-3598. PMID: [id number]. Performed By: #### T ESTTOT #### [facility] [address] [place] [address] Dr. Mynor Yun CBC AUTO DIFFon 11-11-2021 BASO # 0.0 103/ul Normal 0.0-0.1 [facility] Comment on above: Performed By: #### C BC #### [facility] [address] [place] [address] Dr. Mynor Yun Basophils/100 WBC (Bld) 0.2 % Normal 0.2-2.0 [facility] Comment on above: Performed By: #### C BC #### [facility] [address] [place] [address] Dr. Mynor Yun EO # 0.1 103/ul Normal 0.0-0.7 [facility] Comment on above: Performed By: #### C BC #### [facility] [address] [place] [address] Dr. Mynor Yun Eosinophils/100 WBC (Bld) 1.2 % Normal 0.9-7.0 [facility] Comment on above: Performed By: #### C BC #### [facility] [address] [place] [address] Dr. Mynor Yun Erythrocyte distribution width (RBC) [Ratio] 14.3 % Normal 11.0-15.0 [facility] Comment on above: Performed By: #### C BC #### [facility] [address] [place] [address] Dr. Mynor Yun Hematocrit (Bld) [Volume fraction] 47.3 % Normal 42.0-54.0 [facility] Comment on above: Performed By: #### C BC #### [facility] [address] [place] [address] Dr. Mynor Yun Hemoglobin (Bld) [Mass/Vol] 15.2 g/dL Normal 14.0-18.0 [facility] Comment on above: Performed By: #### C BC #### [facility] [address] [place] [address] Dr. Mynor Yun IG # 0.03 10e3/ul Normal 0.00-0.03 [facility] Comment on above: Performed By: #### C BC #### [facility] [address] [place] [address] Dr. Mynor Yun IG % 0.3 % Normal 0.0-0.5 [facility] Comment on above: Performed By: #### C BC #### [facility] [address] [place] [address] Dr. Mynor Yun LYMPH # 1.6 103/ul Normal 1.2-3.8 [facility] Comment on above: Performed By: #### C BC #### [facility] [address] [place] [address] Dr. Mynor Yun Lymphocytes/100 WBC (Bld) 18.4 % Critically low 20.5-60.0 [facility] Comment on above: Performed By: #### C BC #### [facility] [address] [place] [address] Dr. Mynor Yun MANUAL DIFF REQ [facility] Comment on above: Performed By: #### C BC #### [facility] [address] [place] [address] Dr. Mynor Yun MCH (RBC) [Entitic mass] 28.8 pg Normal 25.9-34.0 [facility] Comment on above: Performed By: #### C BC #### [facility] [address] [place] [address] Dr. Mynor Yun MCHC (RBC) [Mass/Vol] 32.1 g/dL Normal 29.9-35.2 [facility] Comment on above: Performed By: #### C BC #### [facility] [address] [place] [address] Dr. Mynor Yun MCV (RBC) [Entitic vol] 89.8 fL Normal 80.0-94.0 [facility] Comment on above: Performed By: #### C BC #### [facility] [address] [place] [address] Dr. Mynor Yun MONO # 0.7 103/ul Normal 0.3-0.8 [facility] Comment on above: Performed By: #### C BC #### [facility] [address] [place] [address] Dr. Mynor Yun Monocytes/100 WBC (Bld) 8.4 % Normal 1.7-12.0 [facility] Comment on above: Performed By: #### C BC #### [facility] [address] [place] [address] Dr. Mynor Yun NEUT # 6.2 103/ul Normal 1.4-6.5 [facility] Comment on above: Performed By: #### C BC #### [facility] [address] [place] [address] Dr. Mynor Yun Neutrophils/100 WBC (Bld) 71.5 % Normal 43.0-75.0 [facility] Comment on above: Performed By: #### C BC #### [facility] [address] [place] [address] Dr. Mynor Yun Platelet mean volume (Bld) [Entitic vol] 8.7 fL Critically low 9.5-13.5 [facility] Comment on above: Performed By: #### C BC #### [facility] [address] [place] [address] Dr. Mynor Yun PLT 263 103/ul Normal 150-450 [facility] Comment on above: Performed By: #### C BC #### [facility] [address] [place] [address] Dr. Mynor Yun RBC 5.27 106/ul Normal 4.70-6.10 [facility] Comment on above: Performed By: #### C BC #### [facility] [address] [place] [address] Dr. Mynor Yun WBC 8.7 103/ul Normal 4.0-11.0 [facility] Comment on above: Performed By: #### C BC #### [facility] [address] [place] [address] Dr. Mynor Yun LIPID PROFILEon 11-11-2021 CHOL-HDL RATIO NORM SEE BELOW Normal [facility] Comment on above: Result Comment: 3.3 - 4.4 LOW RISK 4.4 - 7.1 AVERAGE RISK 7.1 - 11.0 MODERATE RISK >11.0 HIGH RISK Performed By: #### S SCRN #### [facility] [address] [address] [address] Mynor Yun Cholesterol [Mass/Vol] 129 mg/dL Normal <=200 [facility] Comment on above: Performed By: #### S SCRN #### [facility] [address] [address] [address] Mynor Yun Cholesterol in HDL [Mass/Vol] 34 mg/dL Normal [facility] Comment on above: Performed By: #### S SCRN #### [facility] [address] [address] [address] Mynor Yun Cholesterol in LDL [Mass/Vol] 82.2 mg/dL Normal [facility] Comment on above: Performed By: #### S SCRN #### [facility] [address] [address] [address] Mynor Yun Cholesterol.total/Chol esterol in HDL [Mass ratio] 3.8 {ratio} Normal [facility] Comment on above: Performed By: #### S SCRN #### [facility] [address] [address] [address] Mynor Yun HDL NORMAL > or = 60 mg/dl - LO W CARDIOVASCULAR RISK <40 mg/dl - HIGH CARDIOVASCULAR RISK Normal [facility] Comment on above: Performed By: #### S SCRN #### [facility] [address] [address] [address] Mynor Yun LDL CALC NORMAL SEE BELOW Normal [facility] Comment on above: Result Comment: <100 mg/dl OPTIMAL 100 - 129 mg/dl NEAR OR ABOVE OPTIMAL 130 - 159 mg/dl BORDERLINE HIGH 160 - 189 mg/dl HIGH >190 mg/dl VERY HIGH Performed By: #### S SCRN #### [facility] [address] [address] [address] Mynor Yun Triglyceride [Mass/Vol] 64 mg/dL Normal <=150 [facility] Comment on above: Performed By: #### S SCRN #### [facility] [address] [address] [address] Mynor Yun VLDL CALC 12.8 mg/dL Normal [facility] Comment on above: Performed By: #### S SCRN #### [facility] [address] [address] [address] Mynor Yun PROF 14(COMP METB)on 022 Albumin [Mass/Vol] 3.8 g/dL Normal 3.5-5.0 [facility] Comment on above: Performed By: #### T SH, LIPID, CMP #### [facility] [address] [address] [address] Mynor Yun Albumin/Globulin [Mass ratio] 0.9 {ratio} Normal [facility] Comment on above: Performed By: #### T SH, LIPID, CMP #### [facility] [address] [address] [address] Mynor Yun ALP [Catalytic activity/Vol] 76 U/L Normal 38-126 [facility] Comment on above: Performed By: #### T SH, LIPID, CMP #### [facility] [address] [address] [address] Mynor Yun ALT [Catalytic activity/Vol] 49 U/L Normal 21-72 [facility] Comment on above: Performed By: #### T SH, LIPID, CMP #### [facility] [address] [address] [address] Mynor Yun Anion gap [Moles/Vol] 11.2 mmol/L Normal [facility] Comment on above: Performed By: #### T SH, LIPID, CMP #### [facility] [address] [address] [address] Mynor Yun AST [Catalytic activity/Vol] 31 U/L Normal 17-59 [facility] Comment on above: Performed By: #### T SH, LIPID, CMP #### [facility] [address] [address] [address] Mynor Yun Bilirubin [Mass/Vol] 0.5 mg/dL Normal 0.2-1.3 [facility] Comment on above: Performed By: #### T SH, LIPID, CMP #### [facility] [address] [address] [address] Mynor Yun Calcium [Mass/Vol] 9.0 mg/dL Normal 8.4-10.2 [facility] Comment on above: Performed By: #### T SH, LIPID, CMP #### [facility] [address] [place] [address] Dr. Mynor Yun Chloride [Moles/Vol] 104 mmol/L Normal 98-107 [facility] Comment on above: Performed By: #### T SH, LIPID, CMP #### [facility] [address] [place] [address] Dr. Mynro Yun CO2 [Moles/Vol] 30.6 mmol/L Critically high 22.0-30.0 [facility] Comment on above: Performed By: #### T SH, LIPID, CMP #### [facility] [address] [place] [address] Dr. Mynor Yun Creatinine [Mass/Vol] 0.95 mg/dL Normal 0.66-1.25 [facility] Comment on above: Performed By: #### T SH, LIPID, CMP #### [facility] [address] [place] [address] Dr. Mynor Yun EGFR-AF PANAMANIAN >60 Normal >=60 [facility] Comment on above: Performed By: #### T SH, LIPID, CMP #### [facility] [address] [place] [address] Dr. Mynor Yun EGFR-NON AF PANAMANIAN >60 Normal >=60 [facility] Comment on above: Performed By: #### T SH, LIPID, CMP #### [facility] [address] [place] [address] Dr. Mynor Yun Globulin (S) [Mass/Vol] 4.3 g/dL Normal [facility] Comment on above: Performed By: #### T SH, LIPID, CMP #### [facility] [address] [place] [address] Dr. Mynor Yun Glucose [Mass/Vol] 104 mg/dL Normal 74-106 [facility] Comment on above: Performed By: #### T SH LIPID, CMP #### [facility] [address] [place] [address] Dr. Mynor Yun Potassium [Moles/Vol] 3.8 mmol/L Normal 3.4-5.0 [facility] Comment on above: Performed By: #### T SAMARIA LIPID, CMP #### [facility] [address] [place] [address] Dr. Mynor Yun Protein [Mass/Vol] 8.1 g/dL Normal 6.1-8.2 [facility] Comment on above: Performed By: #### T SAMARIA LIPID, CMP #### [facility] [address] [place] [address] Dr. Mynor Yun Sodium [Moles/Vol] 142 mmol/L Normal 137-145 [facility] Comment on above: Performed By: #### T SAMARIA LIPID, CMP #### [facility] [address] [place] [address] Dr. Mynor Yun Urea nitrogen [Mass/Vol] 11.0 mg/dL Normal 9.0-20.0 [facility] Comment on above: Performed By: #### T SAMARIA LIPID, CMP #### [facility] [address] [place] [address] Dr. Mynor Yun Urea nitrogen/Creatinine [Mass ratio] 11.6 mg/mg Normal [facility] Comment on above: Performed By: #### T SAMARIA LIPID, CMP #### [facility] [address] [place] [address] Dr. Mynor Yun TSHon 11-11-2021 TSH 1.612 uIU/mL Normal 0.470-4.[address] [facility] Comment on above: Performed By: #### T SAMARIA LIPID, CMP #### [facility] [address] [place] [address] Dr. Mynor Yun TSH RANGE SEE BELOW Normal [facility] Comment on above: Result Comment: <0.3 4 UIU/ml HYPERTHYROID 0.34-5.60 UIU/ml EUTHYROID >5.60 UIU/ml HYPOTHYROID Performed By: #### T SH, LIPID, CMP #### [facility] [address] [place] [address] Dr. Mynor Yun Encounters Encounter Date Encounter Type Care Provider Facility Start: 01-23-2024 End: 01-26-2024 ambulatory ALEXIA TORSTEN [facility] Start: 01-16-2024 End: 01-17-2024 ambulatory Alexia L Torsten [facility] Start: 01-14-2024 End: 01-15-2024 ambulatory Alexia L Torsten Facility:[facility] Start: 01-09-2024 End: 01-10-2024 ambulatory [facility] L [facility] Start: 12-03-2023 End: 12-04-2023 ambulatory Wilbert [facility] Start: 11-05-2023 End: 11-06-2023 ambulatory Wilbert Buckner MD [facility] Start: 08-23-2023 End: 08-24-2023 ambulatory Alexia L Torsten Facility[facility] Start: 07-26-2023 End: 07-27-2023 ambulatory Alexia L Torsten [facility] Start: 06-21-2023 End: 06-22-2023 ambulatory Alexia L Torsten Facility:[facility] Start: 05-22-2023 End: 05-23-2023 ambulatory Alexia L Torsten Facility:[facility] Start: 04-24-2023 End: 04-25-2023 ambulatory Alexia L Torsten Facility:[facility] Start: 03-19-2023 End: 03-20-2023 ambulatory Alexia L Torsten Facility:[facility] Start: 03-19-2023 End: 03-20-2023 ambulatory Alexia L Torsten Facility:[facility] Start: 03-19-2023 End: 03-19-2023 Lab Drop off Alexia L Torsten [facility] Start: 03-15-2023 ambulatory Alexia Torsten Facility:[facility] Start: 07-28-2022 End: 07-28-[address] LULU BLANK Facility:[facility] Start: 02-01-2022 End: 02-02-[address] LULU BLANK Facility:[facility] Start: 11-15-2021 Encounter for genera l adult medical examination without abnormal findings DR LULU BLANK [facility] Start: 11-11-2021 End: 11-12-[address] LULU BLANK Facility:[facility] Start: 11-11-2021 End: 11-12-2021 Encounter for general adult medical examination without abnormal findings DR LULU BLANK Facility:[facility] Start: 11-10-2021 End: 11-11-2021 ambulatory MAZIN WOLFERLY Facility:[facility] Procedures Date Procedure Procedure Detail Performing Clinician Gastric sleeve Alexia Torsten Comment on above: 2009 Immunizations Immunization Date Immunization Notes Care Provider Fa cility 06-07-2022 influenza virus vacc ine, unspecified formulation Alexia Torsten [facility] 11-12-2020 SARS-CoV-2 (COVID-19 ) mRNA BNT-162b2 vax Alexia Torsten [facility] 10-22-2020 SARS-CoV-2 (COVID-19 ) mRNA BNT-162b2 vax Alexia Torsten [facility] 03-10-2019 pneumococcal polysaccharide vaccine, 23 valent Alexia Sandersonab [facility] Payers Date Payer Category Payer Unknown 2022 Unknown [id number] 2019 Unknown [id number] 1977 Unknown [id number] 2.16.84 [id number] 1977 Unknown [id number] .16.84 0.1.927668.3.579.2.593 1977 Unknown [id number] .16.84 0.1.899963.3.579.2.593 1977 Unknown [id number] 2.16.84 0.1.750671.3.579.2.593 1977 Unknown [id number] 2.16. 840.1.495880.3.579.2.196 1977 Unknown [id number] 2.16. 840.1.374657.3.579.2.196 1977 Unknown [id number] 2.16.8 40.1.352093.3.579.2.182 1977 Unknown [id number] 2.16.8 40.1.542064.3.579.2.182 1977 Unknown [id number] 2.16.8 40.1.395794.3.579.2.727 1977 Unknown [id number] 2.16.8 40.1.381365.3.579.2. 1977 Unknown [id number] 2.16.8 40.1.112197.3.579.2.72 1977 Unknown [id number] 2.16.8 40.1.445346.3.579.2. 1977 Unknown [id number] 2.16.8 40.1.608660.3.579.2.727 1977 Unknown [id number] 2.16.8 40.1.901354.3.579.2.72 1977 Unknown [id number] 2.16.8 40.1.702946.3.579.2.72 1977 Unknown [id number] 2.16.8 40.1.259305.3.579.2.72 1977 Unknown [id number] 2.16.8 40.1.586219.3.579.2.72 1977 Unknown [id number] 2.16.8 40.1.978075.3.579.2.72 1977 Unknown [id number] 2.16.8 40.1.384818.3.579.2.727 1957 Medicare [id number] 1957 Unknown [id number] Social History Date Type Detail Facility Start: 03-19-2023 Tobacco smoking status Ex-smoker (janae mobley) [facility] Tobacco smoking status Never [facility] Sex Assigned At Male [facility] Clinical Note 11-10-2021 Note Date & Type [...] by: KELLIE SMALLS Date: 2021-11-10 13:16 [facility] Evaluation + Plan note Note Date & Type Critical Access Hospital Facility Evaluation + Plan note Future Appointments Appointment Date:04/23/2023 11:00:00 AM Scheduled Provider:Alexia Muhammad Location:[facility] Appointment Type: Open [facility] Hospital course Narrative Note Date & Type Note Facility Hospital course Narrative No data available for this section [facility] Hospital Discharge instructions Note Date & Type Note Facility Hospital Discharge instructions No data available for this section [facility] Progress note Note Date & Type Note Facility Progress note No data available for this section [facility] Summary Purpose Family History No Family History [...] DATE CREATED AUTHOR 01/28/2022 [facility] DATE CREATED AUTHOR AUTHOR'S ORGANIZ ATION 08/10/2022 [facility] DATE CREATED AUTHOR AUTHOR'S ORGANIZ ATION 01/17/2024 [facility] DATE CREATED AUTHOR AUTHOR'S ORGANIZ ATION 01/28/2024 [facility] DATE CREATED AUTHOR AUTHOR'S ORGANIZ ATION 02/06/2024 [facility] Patient Care team informatio n (unrecognized section and content) Personnel Name: Alexia Muhammad Address: Address: [address] [place] [address]- FOR RECORDS PERTAINING TO PATIENTS WHO ARE [...] BE BASED ON THE PRIMARY CLINICAL RECORDS. [facility] [employer] [facility]. provides no warranty or guarantee of the accuracy or completeness of information in this document.
--- NOTE | 2024-02-06 08:07 | P.CN_ITS ---
Consult Note: HPI Data of Consult Patient: known to practice within the last 3 years Consult date: 11/05/23 Requesting Physician: Liliane Garcia NP Primary Care Provider: EFFIE SARMIENTO Consult Narrative Reason for consult: Low back, left hip pain Narrative: 48yom who presents for evaluation. Worsening low back pain. lumbar xray reveals mild to moderate degenerative changes, lumbar MRI consistent with multilevel degenerative changes. Continues in provider directed home exercise course >6 weeks, with minimal relief. Uses celebrex, tramadol, gabapentin, flexeril with benefit. Denies adverse med side effects. Evaluated by NS who recommends bilateral L4-5 L5-S1 facet medial branch blocks working towards RFA for chronic axial back pain. cc:: CC: Liliane Garcia NP Review of Systems ROS Status of ROS 10 or more systems reviewed and unremark able except as noted in history and below Musculoskeletal Reports: back pain PFSH PFSH Medical History Osteoarthritis ?M19.90 - Unspecified osteoarthritis, unspecified site (ICD-10) KWAN on CPAP ?G47.33 - Obstructive sleep apnea (adult) (pediatric) (ICD-10) Sleep apnea ?G47.30 - Sleep apnea, unspecified (ICD-10) Meds Home Medications and Allergies Home Medications ?Medication ?Instructions ?Recorded ?Confirmed ?Type celecoxib 200 mg capsule (Celebrex) 200 mg PO BID 11/05/23 01/07/24 History cholecalciferol (vitamin D3) 125 125 mcg PO DAILY 11/05/23 01/07/24 History mcg (5,000 unit) tablet (Vitamin D3) cranberry 400 mg capsule 1,600 mg PO DAILY 11/05/23 01/07/24 History loratadine 10 mg tablet (Claritin) 10 mg PO DAILY 11/05/23 01/07/24 History vitamin E 268 mg (400 unit) capsule 268 mg PO DAILY 11/05/23 01/07/24 History ascorbic acid (vitamin C) 1,000 mg 1,000 mg PO DAILY 12/03/23 01/07/24 History tablet,extended release (C Complex) orphenadrine citrate 100 mg 100 mg PO BID PRN muscle spasm #10 01/07/24 Rx tablet,extended release tabs paroxetine HCl 10 mg tablet 10 mg PO DAILY 01/07/24 01/07/24 History prednisone 50 mg tablet 50 mg PO DAILY 5 days #5 tabs 01/07/24 Rx Allergies Allergy/AdvReac Type Severity Reaction Status Date / Time No Known Drug Allergies Allergy Verified 12/03/23 10:14 Exam Constitutional Documenting provider has reviewed patient's vital signs: yes Common normals: no apparent distress, oriented x3, healthy appearing, alert and well nourished General appearance: cooperative HENMT Common normals: normocephalic, hearing grossly normal bilaterally and moist oral mucous membranes Head and scalp: normocephalic Eye Common normals: PERRL Pupil: PERRL Neck & C-Spine Common normals: full ROM General: normal visual inspection Chest Common normals: inspection of chest normal Respiratory Common normals: normal respiratory effort, no retractions and no use of accessory muscles Back & Pelvis Lumbar spine/lower back: ROM limited, pain with ROM and straight leg raise negative bilaterally Sacroiliac joints: SI joint(s) abnormal Other: left positive nancy(patricks), gaenslens, thigh thrust, compression test Extremity Common normals: normal to inspection and full ROM Neuro Common normals: oriented x3, CN's II-XII intact bilaterally, moves all extremities, no focal motor deficits, no sensory deficits noted and deep tendon reflexes 2+ bilaterally Sensorium/orientation: alert Motor exam: strength 5/5 throughout and no movement abnormalities noted Psych Common normals: mental status grossly normal, thought process normal, cooperative, affect normal, speech normal and activity/motor behavior normal Speech: normal speech Thought process: normal thought process Results Additional Findings Additional findings: If on a controlled substance or opioids, I have checked an [place] report on this patient and there are no aberrancies noted in the prescribing history.??If on a controlled substance or opioid a drug screen was completed and reviewed within the last year, and if there has not been a drug screen completed we ordered one today to monitor higher risk, state monitored pain medication use. As part of providing excellent, safe, comprehensive care, the following was completed at our patient's visit: 1. A medication reconciliation and review to ensure accurate knowledge of current/active medications, including asking our patients to inform us about any [id number] medications or herbal remedies/nutritional supplements/alternat deric remedies. 2. A review to specifically ensure our patients have had annual screening for screening for depression, screening for tobacco use, and screening for unhealthy alcohol use. For concerning screenings had a discussion with the patient, provided patient education, and recommended follow-up with primary care provider when appropriate. If patient noted with a risk of falling, they received education on strength, gait, and balance training to prevent future risk of falling. Assessment and Plan Assessment and Plan (1) Lumbar spondylosis: Assessment and Plan: The patient has had over 3 months of moderate to severe low back pain with functional impairment and inadequate response to conservative care including NSAIDS (unless there are contraindication such as concurrent blood thinners), multiple oral or topical pain medications, and home exercise program/physical th erapy.? Patient has completed >6 weeks of guided home exercise program and/or formal physical therapy program without relief of their symptoms.? We discussed the risks and benefits of the procedure with the patient, and we are NOT planning on using sedation as outlined in the guidelines from Medicare unless there is a documented reason that sedation would be strongly recommended.?? The procedure will be completed with fluoroscopic guidance.? Plan bilateral L4-5 L5-S1 MBB x2 working towards thermal RFA continue medications through PCP continue HEP as tolerated f/u with NS as needed f/u 1 week after each injection
== END 2024-02-06 07:38 | disposition home or self-care (01) ==
PROVIDERS: PCP Nurse Practitioner; Visit Provider Nurse Practitioner
DX: M54.50 Low back pain, unspecified (principal); M25.552 Pain in left hip; M47.816 Spondylosis without myelopathy or radiculopathy, lumbar region
CPT/HCPCS: G0463

== ENCOUNTER 2024-02-18 09:03 | Day surgery (SDC) | payer BC, MEDICARE, SELFPAY ==
[2024-02-18 09:42] VITALS: BP 155/99; PULSE 70; TEMP 36.2; O2SAT 98
[2024-02-18] MEDS: BUPIVACAINE HCL 0.25% PF 25 MG/10 ML VIAL 8 ML INJ (10:30)
[2024-02-18] MEDS: LIDOCAINE HCL 2% 400 MG/20 ML MDV INJ (10:30)
[2024-02-18 10:31] VITALS: BP 152/82; BP 157/88; PULSE 76; PULSE 77; O2SAT 95
--- NOTE | 2024-02-18 10:33 | W.PM.PROCNOT ---
Date of procedure: 02/18/24 Pre-op diagnosis: Pain due to lumbar spondylosis without myelopathy Post-op diagnosis: same as pre-op Procedure: Procedure: Bilateral L4-5, L5-S1 medial branch block Medications: Bupivacaine 0.25% 6cc The patient was seen and examined in the preoperative holding area.? An informed consent was obtained and placed on the chart.? The patient was brought to the medical procedure unit and placed in the prone position.? A timeout was completed verifying correct patient, procedure site, positioning, plan, and special equipment.? Using aseptic technique, the needle was placed at left L4. Under direct fluoroscopic visualization a Quincke-tipped spinal needle was advanced to the junction of the superior articulating process with the transverse process at the designated medial branch segment.? Preceded by negative aspiration, the above-mentioned injectate was placed in 1 mL aliquots.? The procedure was repeated at left L5, S1.? The needle was removed and insertion site was covered. The same procedure, at the same levels, was completed on the right side. The patient was taken to the postprocedural recovery area and monitored for an appropriate length of time before found suitable for discharge in the company of a responsible adult. Anesthesia: Local Surgeon: Wilbert Buckner Pathology: none sent Condition: stable Disposition: no change
== END 2024-02-18 10:38 | disposition home or self-care (01) ==
LOC: SURGOUT 09:04
PROVIDERS: PCP Nurse Practitioner; Visit Provider Anesthesiology
DX: M47.816 Spondylosis without myelopathy or radiculopathy, lumbar region (principal)
CPT/HCPCS: 64493; 64494

== ENCOUNTER 2024-02-20 09:10 | Outpatient (OUT) | payer BC, MEDICARE, SELFPAY ==
--- NOTE | 2024-02-20 09:17 | P.CN_ITS ---
Consult Note: HPI Data of Consult Patient: known to practice within the last 3 years Consult date: 11/05/23 Requesting Physician: Liliane Garcia NP Primary Care Provider: EFFIE SARMIENTO Consult Narrative Reason for consult: Low back, left hip pain Narrative: 48yom who presents for evaluation. Worsening low back pain. lumbar xray reveals mild to moderate degenerative changes, lumbar MRI consistent with multilevel degenerative changes. Continues in provider directed home exercise course >6 weeks, with minimal relief. Uses celebrex, tramadol, gabapentin, flexeril with benefit. Denies adverse med side effects. Evaluated by NS who recommends bilateral L4-5 L5-S1 facet medial branch blocks working towards RFA for chronic axial back pain, patient recently underwent bilateral L4-5 L5-S1 facet medial branch block #1 with 50% improvement. cc:: CC: Liliane Garcia NP Review of Systems ROS Status of ROS 10 or more systems reviewed and unremark able except as noted in history and below Musculoskeletal Reports: back pain and joint pain PFSH PFSH Medical History Osteoarthritis ?M19.90 - Unspecified osteoarthritis, unspecified site (ICD-10) KWAN on CPAP ?G47.33 - Obstructive sleep apnea (adult) (pediatric) (ICD-10) Sleep apnea ?G47.30 - Sleep apnea, unspecified (ICD-10) Meds Home Medications and Allergies Home Medications ?Medication ?Instructions ?Recorded ?Confirmed ?Type celecoxib 200 mg capsule (Celebrex) 200 mg PO BID 11/05/23 02/18/24 History cholecalciferol (vitamin D3) 125 125 mcg PO DAILY 11/05/23 02/18/24 History mcg (5,000 unit) tablet (Vitamin D3) cranberry 400 mg capsule 1,600 mg PO DAILY 11/05/23 02/18/24 History loratadine 10 mg tablet (Claritin) 10 mg PO DAILY 11/05/23 02/18/24 History ascorbic acid (vitamin C) 1,000 mg 1,000 mg PO DAILY 12/03/23 02/18/24 History tablet,extended release (C Complex) orphenadrine citrate 100 mg 100 mg PO BID PRN muscle spasm #10 01/07/24 02/18/24 Rx tablet,extended release tabs paroxetine HCl 10 mg tablet 10 mg PO DAILY 01/07/24 02/18/24 History gabapentin 300 mg capsule mg 02/18/24 History Allergies Allergy/AdvReac Type Severity Reaction Status Date / Time No Known Drug Allergies Allergy Verified 02/18/24 09:45 Exam Constitutional Documenting provider has reviewed patient's vital signs: yes Common normals: no apparent distress, oriented x3, healthy appearing, alert and well nourished General appearance: cooperative HENMT Common normals: normocephalic, hearing grossly normal bilaterally and moist oral mucous membranes Head and scalp: normocephalic Eye Common normals: PERRL Pupil: PERRL Neck & C-Spine Common normals: full ROM General: normal visual inspection Chest Common normals: inspection of chest normal Respiratory Common normals: normal respiratory effort, no retractions and no use of accessory muscles Back & Pelvis Lumbar spine/lower back: ROM limited, pain with ROM and straight leg raise negative bilaterally Sacroiliac joints: SI joint(s) abnormal Other: left positive nancy(patricks), gaenslens, thigh thrust, compression test decreased sensation to left L4,5,S1 strength 4/5 in LLE increased heaviness and weakness to LLE with ambulation/stairs, pain and symptoms improved with forward flexion Extremity Common normals: normal to inspection and full ROM Neuro Common normals: oriented x3, CN's II-XII intact bilaterally, moves all extremities, no focal motor deficits, no sensory deficits noted and deep tendon reflexes 2+ bilaterally Sensorium/orientation: alert Motor exam: no movement abnormalities noted and strength abnormal Psych Common normals: mental status grossly normal, thought process normal, cooperative, affect normal, speech normal and activity/motor behavior normal Speech: normal speech Thought process: normal thought process Results Additional Findings Additional findings: If on a controlled substance or opioids, I have checked an [place] report on this patient and there are no aberrancies noted in the prescribing history.??If on a controlled substance or opioid a drug screen was completed and reviewed within the last year, and if there has not been a drug screen completed we ordered one today to monitor higher risk, state monitored pain medication use. As part of providing excellent, safe, comprehensive care, the following was completed at our patient's visit: 1. A medication reconciliation and review to ensure accurate knowledge of current/active medications, including asking our patients to inform us about any [id number] medications or herbal remedies/nutritional supplements/alternative remedies. 2. A review to specifically ensure our patients have had annual screening for screening for depression, screening for tobacco use, and screening for unhealthy alcohol use. For concerning screenings had a discussion with the patient, provided patient education, and recommended follow-up with primary care provider when appropriate. If patient noted with a risk of falling, they received education on strength, gait, and balance training to prevent future risk of falling. Assessment and Plan Assessment and Plan (1) Lumbar spondylosis: Assessment and Plan: less than 80% improvement from bilateral L4-5 L5-S1 MBB #1, cancel #2 (2) Lumbar stenosis with neurogenic claudication: (3) Sacroiliitis: Plan Left L4-5 L5-S1 TFESI under fluoroscopy, risks vs benefits reviewed Left SIJ injection under fluoroscopy, risks vs benefits reviewed continue medications through PCP continue HEP as tolerated f/u with NS as needed f/u after completion of injections
--- OUTSIDE RECORDS SUMMARY | 2024-02-20 09:18 | XMS_ITS | CCD ---
Author Organization [facility] Care Team Providers Care Edge Sander Name Role Phone MAZIN CANO Admitting Unavailable [...] Unavailable TRAM, FOZIA Attending Unavailable Torsten, Alexia L Primary Care Physician [phone] Sita CORRIGAN, Wilbert Guardado Attending Unavailable Gieditis , Andrius Guardado Attending Unavailable TORSTEN, ALEXIA Referring Unavailable TORSTEN, ALEXIA Referring Unavailable Torsten, LOSS PREVENTION AUDITOR Alexia L Attending Unavailable Torsten, LOSS PREVENTION AUDITOR Alexia L Attending Unavailable Torsten, LOSS PREVENTION AUDITOR Alexia L Attending Unavailable Torsten, LOSS PREVENTION AUDITOR Alexia L Attending Unavailable Torsten, LOSS PREVENTION AUDITOR Alexia L Attending Unavailable Torsten, LOSS PREVENTION AUDITOR Alexia L Attending Unavailable Torsten, LOSS PREVENTION AUDITOR Alexia L Attending Unavailable Torsten, LOSS PREVENTION AUDITOR Alexia L Attending Unavailable Torsten, LOSS PREVENTION AUDITOR Alexia L Admitting Unavailable Torsten, LOSS PREVENTION AUDITOR Alexia L Admitting Unavailable Torsten, LOSS PREVENTION AUDITOR Alexai L Attending Unavailable Torsten, LOSS PREVENTION AUDITOR Alexia L Attending Unavailable Torsten, LOSS PREVENTION AUDITOR Alexia L Attending Unavailable Medications Current Medications [...] day(s), # 21 tab(s), Refills(s) 0, Pharmacy: [facility]/pharmacy #[id number], 176.5, cm, 03/19/23 13:15:00 EDT, [...] day(s), # 30 tab(s), Refills(s) 0, Pharmacy: [facility]/pharmacy #6177, 176.5, cm, 03/19/23 13:15:00 EDT, [...] Value Interpretation Reference Range Facility Consultation Noteon 02-06-20 24 Consultation Note [id number]#1 .00TIFF Normal [facility] RAD - MRI Reporton RAD - MRI Report [id number]#1 .00TIFF Normal [facility] MRI LUMBAR SPINE WO CONTRAST on 01-23-2024 [...] compromise. L2-L3: No disc bulge or protrusion. Qkxm-gz-bqdwnmhx facet arthropathy. No significant central canal stenosis. [...] Carson Linares DO 01/24/24 Final result Normal [facility] MRI THORACIC SPINE WO CONTRA [...] Carson Linares DO 01/24/24 Final result Normal [facility] Family Medicine Office/Clini c Noteon [...] open MRI. MRI order was sent to [facility] in [place]. Pt states the burning sensation from sitting [...] not able to get MRI done at [facility]. is waiting for PA for MRI in [place]. they have an open MRI machine. needs [...] days., # 18 tab(s), Refills(s) 0, Pharmacy: [facility]/pharmacy #6177, 187.5, cm, 01/16/24 13:46:00 EDT, Height/Length Dosing, 183, kg, 01/16/24 13:4... 3. Non-smoker (Z78.9: Other specified health status) continue not smoking Ordered: predniSONE, = 1 -, Oral, As Directed, Take 3 tabs by mouth daily x3 days, then 2 tabs daily x3 days, then 1 tab daily x3 days., # 18 tab(s), Refills(s) 0, Pharmacy: [facility]/pharmacy #6177, 187.5, cm, 01/16/24 13:46:00 EDT, Height/Length [...] pneumococcal 23-valent vaccine 03/10/2019 Recorded Normal [facility] Comment on above: Result Comment: [...] 1 tab daily x3 days. Pickup at [facility]/pharmacy #6177 Unchanged cranberry (cranberry oral capsule) [...] Pain Non-smoker BMI 60.0-69.9, adult Pharmacy Information [facility]/pharmacy #[id number]: [address], [place] [id number] [phone] Allergies No Known Allergies Problems Ongoing - [...] you for choosing us for your care. [facility] Physician Orderon 01-14-2024 Physician Order [id number]#1 .00TIFF [facility] Provider Letteron 01-14-2024 Provider Letter January 14, 2024 RAKESH PIÑA [address] [place] [id number] : 1975 To Whom It May Concern, Please excuse above patient from work. Date of Illness: From: 01/07/2024 To: 01/16/2024 May Return to Work On: 01/17/2024 Restrictions: None Comments: Sincerely, Family Medicine [address] [address] [facility] Ambulatory Visit Summaryon 0 01-09-2024 Ambulatory Visit [...] 11:20 AM EDT With: Alexia Muhammad Where: [facility] Consenton 01-09-2024 Consent [id number]#1 .00TIFF [facility] ED Note-Physicianon 01-09-20 ED Note-Physician [id number]# 1.00TIFF [facility] Family Medicine Office/Clini c Noteon 01-09-2024 Family Medicine Office/Clinic Note HPI Staff Rakesh is a 48 year old male presenting for ER follow up ER followup: Hospital: [facility] Visit date: 01/07/24 Symptoms the patient [...] Pain, # 60 tab(s), Refills(s) 0, Pharmacy: [facility]/pharmacy #6177, 187.5, cm, 01/09/24 10:51:00 EDT, [...] Pain, # 60 tab(s), Refills(s) 0, Pharmacy: [facility]/pharmacy #6177, 187.5, cm, 01/09/24 10:51:00 EDT, Height/Length Dosing, 187.5, kg, 08/23/23 9:30:00 EST, Weight Dosing triamcinolone, 60 mg = 1.5 mL, Injection, IntraMuscular, Once, Stop date 01/09/24 11:20:00 EDT, Routine, Start date 01/09/24 11:20:00 EDT, 01/09/24 11:20:00 EDT Orders: phentermine, 37.5 mg = 1 tab(s), Oral, Daily, # 30 tab(s), Refills(s) 0, Pharmacy: [facility] #72, 176.5, cm, 07/26/23 9:32:00 EST, Height/Length [...] Allergies Social Hi (more content not included)... Normal [facility] Comment on above: Result Comment: Elec tronically Signed By: Alexia Muhammad\.br\Date and Time Signed: 01/09/24 11:25 EDT Physician Orderon 01-09-2024 Physician Order [id number]#1 .00TIFF Normal [facility] Provider Letteron 01-09-2024 Provider Letter January 09, 2024 RAKESH PIÑA [address] [place] [id number] : 1975 To Whom It May Concern, Please excuse above patient from work due to medical Date of Illness: From: _01-08-24 To: _01-14-24 May Return to Work On:01-15-24 Restrictions: _ Comments: _ Sincerely, [address] [address] Normal [facility] RAD - CT Reporton 01-09-2024 RAD - CT Report [id number]#1 .00TIFF Normal [facility] ED Note-Physicianon 01-08-20 ED Note-Physician [id number]#1 .00TIFF [facility] RAD - CT Reporton 01-08-[address]24 RAD - CT Report [id number]#1 .00TIFF [facility] Operative Reporton Operative Report [id number]#1 .00TIFF [facility] Consultation Noteon 11-07-19 Consultation Note [id number]#1 .00TIFF [facility] PT - Progress Noteson 2023 PT - Progress Notes [id number]#1 .00TIFF [facility] RAD - MISCon 10-29-2023 RAD - MISC [id number]#1 .00TIFF [facility] Retail - Clinical Noteon Retail - Clinical Note [id number]#1 .00TIFF [facility] Plan of Care - PT/OT/Speecho n 09-06-2023 Plan of Care - PT/OT/Speech [id number]#1 .00TIFF Normal [facility] Physician Referralon 023 Physician Referral [id number]# 1.00TIFF Normal [facility] Testost Totalon 08-25-2023 Testosterone [Mass/Vol] 321 ng/dL Invalid Interpretation Code [id number] [facility] Comment on above: Result Comment: Adul t male reference interval is based on a population of healthy nonobese males (BMI <30) between 19 and 39 years old. Iron, et.al. JCEM 2017,102;8825-9363. PMID: 81642453. Performed at: [facility] [id number] PhD Domenic Rider Performed By: #### 2 [id number] ####[facility] [address] [place] [address] Reminderson 08-24-2023 Reminders - From: Alexia Muhammad [...] left detailed message for patient below Normal [facility] Family Medicine Office/Clini c Noteon 08-23-2023 [...] was in slow motion. 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 He [...] he would like referral to PT at [place] for bakc/leg pain. gabapentin and muscles relaxers did not help. 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 all questions answered. RTC as needed Ordered: cyclobenzaprine, 10 mg = 1 tab(s), Oral, Bedtime, PRN for spasm, # 30 tab(s), Refills(s) 0, Pharmacy: [facility] #72, 176.5, cm, 07/26/23 9:32:00 EST, Height/Length Dosing, 187.2, kg, 07/26/23 9:32:00 EST, Weight Dosing gabapentin, 300 mg = 1 cap(s), Oral, Daily, # 30 cap(s), Refills(s) 0, Pharmacy: [facility] #72, 176.5, cm, 07/26/23 9:32:00 EST, Height/Length Dosing, 187.2, kg, 07/26/23 9:32:00 EST, Weight Dosing 2. Fatigue (R53.83: Other fatigue) labs drawn today Ordered: Lab Specimen Collect [id number] Testosterone Level Total 3. Hypogonadism male (E29.1: Testicular hypofunction) testosterone ordered Ordered: Lab Specimen Collect [id number] Testosterone Level Total 4. BMI 60.0-69.9, adult (Z68.44: Body mass index [BMI] 60.0-69.9, adult) bmi education complete Ordered: cyclobenzaprine, 10 mg = 1 tab(s), Oral, Bedtime, PRN for spasm, # 30 tab(s), Refills(s) 0, Pharmacy: [facility] #72, 176.5, cm, 07/26/23 9:32:00 EST, Height/Length Dosing, 187.2, kg, 07/26/23 9:32:00 EST, Weight Dosing gabapentin, 300 mg = 1 cap(s), Oral, Daily, # 30 cap(s), Refills(s) 0, Pharmacy: [facility] #72, 176.5, cm, 07/26/23 9:32:00 EST, Height/Length Dosing, 187.2, kg, 07/26/23 9:32:00 EST, Weight Dosing Testosterone Level Total Vitamin B12 Level Vitamin D 25 Hydroxy Follow-up No qualifying data available Patient Education Obesity, Adult, Aljm-cv-Pymf Problem List/Past Medical History Ongoing Encounter for [...] ago Tob (more content not included)... Normal [facility] Comment on above: Result Comment: [...] food choices, such as grocery stores and farmers' markets. What are the signs or symptoms? The [...] How much exercise you get. ? Take yovx-quv-vthrkny and prescription medicines only as told by [...] with yo (more content not included)... Normal [facility] Vit B12on 08-23-2023 Cobalamin (Vitamin B12) [Mass/Vol] 301 pg/mL Normal 50-1500 [facility] Comment on above: Performed By: #### 2 [id number], [id number], [id number] ####[facility] [address] [place] [address] Vitamin D 25 Hydroxyon 08-23 Vitamin D 25 Hydroxy 57.7 ng/mL Normal 30.0-100.0 [facility] Comment on above: Performed By: #### 2 [id number], [id number], [id number] ####[facility] [address] [place] [address] Ambulatory Visit Summaryon 1 09-25-2022 Ambulatory Visit [...] 9:20 AM EST With: Alexia Muhammad Where: [facility] Family Medicine Office/Clini c Noteon 07-26-2023 Family [...] spasm, # 30 tab(s), Refills(s) 0, Pharmacy: [facility] #72, 176.5, cm, 07/26/23 9:32:00 EST, Height/Length Dosing, 187.2, kg, 07/26/23 9:32:00 EST, Weight Dosing gabapentin, 300 mg = 1 cap(s), Oral, Daily, # 30 cap(s), Refills(s) 0, Pharmacy: [facility] #72, 176.5, cm, 07/26/23 9:32:00 EST, Height/Length Dosing, 187.2, kg, 07/26/23 9:32:00 EST, Weight Dosing methylPREDNISolone, = 1 packet(s), Oral, As Directed, as directed on package labeling, X 6 day(s), # 21 tab(s), Refills(s) 0, Pharmacy: [facility] #72, 176.5, cm, 07/26/23 9:32:00 EST, Height/Length [...] spasm, # 30 tab(s), Refills(s) 0, Pharmacy: [facility] #72, 176.5, cm, 07/26/23 9:32:00 EST, Height/Length Dosing, 187.2, kg, 07/26/23 9:32:00 EST, Weight Dosing gabapentin, 300 mg = 1 cap(s), Oral, Daily, # 30 cap(s), Refills(s) 0, Pharmacy: [facility] #72, 176.5, cm, 07/26/23 9:32:00 EST, Height/Length Dosing, 187.2, kg, 07/26/23 9:32:00 EST, Weight Dosing methylPREDNISolone, = 1 packet(s), Oral, As Directed, as directed on package labeling, X 6 day(s), # 21 tab(s), Refills(s) 0, Pharmacy: [facility] #72, 176.5, cm, 07/26/23 9:32:00 EST, Height/Length Dosing, 187.2, kg, 07/26/23 9:32:00 EST, Weight Dosing 3. Numbness and tingling of foot (R20.0: Anesthesia of skin) discussed ENG results Ordered: cyclobenzaprine, 10 mg = 1 tab(s), Oral, Bedtime, PRN for spasm, # 30 tab(s), Refills(s) 0, Pharmacy: [facility] #72, 176.5, cm, 07/26/23 9:32:00 EST, Height/Length Dosing, 187.2, kg, 07/26/23 9:32:00 EST, Weight Dosing gabapentin, 300 mg = 1 cap(s), Oral, Daily, # 30 cap(s), Refills(s) 0, Pharmacy: [facility] #72, 176.5, cm, 07/26/23 9:32:00 EST, Height/Length Dosing, 187.2, kg, 07/26/23 9:32:00 EST, Weight Dosing methylPREDNISolone, = 1 packet(s), Oral, As Directed, as directed on package labeling, X 6 day(s), # 21 tab(s), Refills(s) 0, Pharmacy: [facility] #72, 176.5, cm, 07/26/23 9:32:00 EST, Height/Length Dosing, 187.2, kg, 07/26/23 9:32:00 EST, Weight Dosing 4. Class 3 obesity (E66.01: Morbid (severe) obesity due to excess calories) pt continues with diet Ordered: cyclobenzaprine, 10 mg = 1 tab(s), Oral, Bedtime, PRN for spasm, # 30 tab(s), Refills(s) 0, Pharmacy: [facility] #72, 176.5, cm, 07/26/23 9:32:00 EST, Height/Length Dosing, 187.2, kg, 07/26/23 9:32:00 EST, Weight Dosing gabapentin, 300 mg = 1 cap(s), Oral, Daily, # 30 cap(s), Refills(s) 0, Pharmacy: [facility] #72, 176.5, cm, 07/26/23 9:32:00 EST, Height/Length Dosing, 187.2, kg, 07/26/23 9:32:00 EST, Weight Dosing methylPREDNISolone, = 1 packet(s), Oral, As Directed, as directed on package labeling, X 6 day(s), # 21 tab(s), Refills(s) 0, Pharmacy: [facility] #72, (more content not included)... [facility] Comment on above: Result Comment: Elec tronically Signed By: Alexia Muhammad\.br\Date and Time Signed: 07/26/23 09:54 EST EMG Electromyographyon 07-10 EMG Electromyography [id number]#1 .00TIFF [facility] EMG Electromyography [id number]#1. 00TIFF [facility] Physician Referralon 023 Physician Referral [id number]# 1.00TIFF [facility] Ambulatory Visit Summaryon 1 Ambulatory Visit Summary [...] 9:20 AM EST With: Alexia Muhammad Where: [facility] Family Medicine Office/Clini c Noteon 06-21-2023 Family [...] day(s), # 30 tab(s), Refills(s) 1, Pharmacy: [facility] #72, 176.5, cm, 06/21/23 9:41:00 EDT, Height/Length Dosing, 186.7, kg, 06/21/23 9:41:00 EDT, Weight Dosing meloxicam, 15 mg = 1 tab(s), Oral, Daily, X 30 day(s), # 30 tab(s), Refills(s) 0, Pharmacy: [facility] #72, 176.5, cm, 06/21/23 9:41:00 EDT, Height/Length Dosing, 186.7, kg, 06/21/23 9:41:00 EDT, Weight Dosing meloxicam, 15 mg = 1 tab(s), Oral, Daily, # 30 tab(s), Refills(s) 1, Pharmacy: [facility] #72, 176.5, cm, 05/22/23 9:51:00 EDT, Height/Length Dosing, 190.2, kg, 05/22/23 9:51:00 EDT, Weight Dosing 2. Left sciatic nerve pain (M54.32: Sciatica, left side) pt continues to have left sciatic nerve pain but it is improved Ordered: meloxicam, 15 mg = 1 tab(s), Oral, Daily, X 30 day(s), # 30 tab(s), Refills(s) 1, Pharmacy: [facility] #72, 176.5, cm, 06/21/23 9:41:00 EDT, Height/Length Dosing, 186.7, kg, 06/21/23 9:41:00 EDT, Weight Dosing meloxicam, 15 mg = 1 tab(s), Oral, Daily, X 30 day(s), # 30 tab(s), Refills(s) 0, Pharmacy: [facility] #72, 176.5, cm, 06/21/23 9:41:00 EDT, Height/Length Dosing, 186.7, kg, 06/21/23 9:41:00 EDT, Weight Dosing meloxicam, 15 mg = 1 tab(s), Oral, Daily, # 30 tab(s), Refills(s) 1, Pharmacy: [facility] #72, 176.5, cm, 05/22/23 9:51:00 EDT, Height/Length Dosing, 190.2, kg, 05/22/23 9:51:00 EDT, Weight Dosing phentermine, 37.5 mg = 1 tab(s), Oral, Daily, X 30 day(s), # 30 tab(s), Refills(s) 0, Pharmacy: [facility] #[facility], 176.5, cm, 05/22/23 9:51:00 EDT, Height/Length Dosing, 190.2, kg, 05/22/23 9:51:00 EDT, Weight Dosing [facility] Ambulatory Referral 3. Lower extremity numbness (R20.0: Anesthesia of skin) EMG order sent to [facility] in [place] Ordered: [facility] [place] Ambulatory Referral 4. Morbid obesity due to excess calories (E66.01: Morbid (severe) obesity due to excess calories) BMI education complete Ordered: meloxicam, 15 mg = 1 tab(s), Oral, Daily, X 30 day(s), # 30 tab(s), Refills(s) 1, Pharmacy: [facility] #72, 176.5, cm, 06/21/23 9:41:00 EDT, Height/Length Dosing, 186.7, kg, 06/21/23 9:41:00 EDT, Weight Dosing meloxicam, 15 mg = 1 tab(s), Oral, Daily, X 30 day(s), # 30 tab(s), Refills(s) 0, Pharmacy: [facility] #[facility], 176.5, cm, 06/21/23 9:41:00 EDT, Height/Length Dosing, 186.7, kg, 06/21/23 9:41:00 EDT, Weight Dosing meloxicam, 15 mg = 1 tab(s), Oral, Daily, # 30 tab(s), Refills(s) 1, Pharmacy: [facility] #72, 176.5, cm, 05/22/23 9:51:00 EDT, Height/Length Dosing, 190.2, kg, 05/22/23 9:51:00 EDT, Weight Dosing phentermine, 37.5 mg = 1 tab(s), Oral, Daily, X 30 day(s), # 30 tab(s), Refills(s) 0, Pharmacy: [facility] #[facility], 176.5, cm, 05/22/23 9:51:00 EDT, Height/Length Dosing, 190.2, kg, 05/22/23 9:51:00 EDT, Weight Dosing 5. BMI 50.0-59.9, adult (Z68.43: Body mass index [BMI] 50.0-59.9, adult) BMI education complete 6. Non-smoker (Z78.9: Other specified health status) continue not smoking Ordered: meloxicam, 15 mg = 1 tab(s), Oral, Daily, X 30 day(s), # 30 tab(s), Refills(s) 1, Pharmacy: [facility] #[facility], 176.5, cm, 06/21/23 9:41:00 EDT, Height/Length Dosing, 186.7, kg, 06/21/23 9:41:00 EDT, Weight Dosing meloxicam, 15 mg = 1 tab(s), Or (more content not included)... [facility] Comment on above: Result Comment: Elec tronically [...] 9:20 AM EDT With: Alexia Muhammad Where: [facility] Ambulatory Visit Summary RAKESH PIÑA :1975 [...] 9:20 AM EDT With: Alexia Muhammad Where: [facility] Shanique Normal [facility] Family Medicine Office/Clini c Noteon 05-22-2023 [...] his legs at night. 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 all questions answered. RTC 4 weeks Ordered: meloxicam, 15 mg = 1 tab(s), Oral, Daily, # 30 tab(s), Refills(s) 1, Pharmacy: [facility] #72, 176.5, cm, 05/22/23 9:51:00 EDT, Height/Length Dosing, 190.2, kg, 05/22/23 9:51:00 EDT, Weight Dosing 2. Left sciatic nerve pain (M54.32: Sciatica, left side) will order antiinflammatory. steroid did not give him any relief Ordered: meloxicam, 15 mg = 1 tab(s), Oral, Daily, # 30 tab(s), Refills(s) 1, Pharmacy: [facility] #[facility], 176.5, cm, 05/22/23 9:51:00 EDT, Height/Length Dosing, 190.2, kg, 05/22/23 9:51:00 EDT, Weight Dosing phentermine, 37.5 mg = 1 tab(s), Oral, Daily, X 30 day(s), # 30 tab(s), Refills(s) 0 phentermine, 37.5 mg = 1 tab(s), Oral, Daily, X 30 day(s), # 30 tab(s), Refills(s) 0, Pharmacy: [facility] #[facility], 176.5, cm, 05/22/23 9:51:00 EDT, Height/Length Dosing, 190.2, kg, 05/22/23 9:51:00 EDT, Weight Dosing 3. BMI 60.0-69.9, adult (Z68.44: Body mass index [BMI] 60.0-69.9, adult) BMI education complete Ordered: meloxicam, 15 mg = 1 tab(s), Oral, Daily, # 30 tab(s), Refills(s) 1, Pharmacy: [facility] #[facility], 176.5, cm, 05/22/23 9:51:00 EDT, Height/Length Dosing, 190.2, kg, 05/22/23 9:51:00 EDT, Weight Dosing 4. Morbid obesity due to excess calories (E66.01: Morbid (severe) obesity due to excess calories) see above Ordered: meloxicam, 15 mg = 1 tab(s), Oral, Daily, # 30 tab(s), Refills(s) 1, Pharmacy: [facility] #[facility], 176.5, cm, 05/22/23 9:51:00 EDT, Height/Length Dosing, 190.2, kg, 05/22/23 9:51:00 EDT, Weight Dosing phentermine, 37.5 mg = 1 tab(s), Oral, Daily, X 30 day(s), # 30 tab(s), Refills(s) 0 phentermine, 37.5 mg = 1 tab(s), Oral, Daily, X 30 day(s), # 30 tab(s), Refills(s) 0, Pharmacy: [facility] #[facility], 176.5, cm, 05/22/23 9:51:00 EDT, Height/Length Dosing, 190.2, kg, 05/22/23 9:51:00 EDT, Weight Dosing 5. Non-smoker (Z78.9: Other specified health status) continue not smoking Ordered: meloxicam, 15 mg = 1 tab(s), Oral, Daily, # 30 tab(s), Refills(s) 1, Pharmacy: [facility] #[facility], 176.5, cm, 05/22/23 9:51:00 EDT, Height/Length Dosing, 190.2, kg, 05/22/23 9:51:00 EDT, Weight Dosing phentermine, 37.5 mg = 1 tab(s), Oral, Daily, X 30 day(s), # 30 tab(s), Refills(s) 0 phentermine, 37.5 mg = 1 tab(s), Oral, Daily, X 30 day(s), # 30 tab(s), Refills(s) 0, Pharmacy: [facility] #[facility], 176.5, cm, 05/22/23 9:51:00 EDT, Height/Length [...] Daily Allerg (more content not included)... Normal [facility] Comment on above: Result Comment: Elec tronically Signed By: Alexia Muhammad\.br\Date and Time Signed: 05/22/23 10:34 EDT [place] 04-26-2023 Consent [id number] .00CD:127 Normal [facility] Family Medicine Office/Clini c Noteon [...] kenalog 60mg IM in office today. Normal [facility] Comment on above: Result Comment: [...] 11:00 AM EDT With: Alexia Muhammad Where: [facility] Normal [facility] Auto Diffon 03-19-2023 Basophils/100 WBC (Bld) 0.3 % Normal 0.0-2.0 [facility] Comment on above: Order Comment: Order Added by Discern Expert. Performed By: #### 2 [id number], [id number], [id number], [id number], [id number] ####[facility] [address] [place] [address] Basophils/Leukocytes Auto (Bld) [Pure # fraction] 0.0 E9/L Normal 0.0-0.2 [facility] Comment on above: Order Comment: Order Added by Discern Expert. Performed By: #### 2 [id number], [id number], [id number], [id number] ####[facility] [address] [place] [address] Eosinophils/100 WBC (Bld) 2.1 % Normal 0.0-8.0 [facility] Comment on above: Order Comment: Order Added by Discern Expert. Performed By: #### 2 922882, [id number], [id number], [id number] ####[address] [place] [address] Eosinophils/Leukocytes Auto (Bld) [Pure # fraction] 0.2 E9/L Normal 0.0-0.5 [facility] Comment on above: Order Comment: Order Added by Discern Expert. Performed By: #### 2 390128, 4890534, [id number], [id number], [id number] ####[address] [address] Lymphocytes/100 WBC (Bld) 20.5 % Normal 14.0-50.0 [facility] Comment on above: Order Comment: Order Added by Discern Expert. Performed By: #### 2 842572, 5231717, 2681566, [id number], [id number] ####[address] [address] Lymphocytes/Leukocytes Auto (Bld) [Pure # fraction] 1.6 E9/L Normal 1.0-4.0 [facility] Comment on above: Order Comment: Order Added by Discern Expert. Performed By: #### 2 881136, 6591042, 4236153, 5533532, [id number] ####[address] [address] Monocytes/100 WBC (Bld) 8.7 % Normal 4.0-14.0 [facility] Comment on above: Order Comment: Order Added by Discern Expert. Performed By: #### 2 643051, 7856300, 8030639, 9952953, [id number] ####[facility] [address] [place] [address] Monocytes/Leukocytes Auto (Bld) [Pure # fraction] 0.7 E9/L Normal 0.2-1.0 [facility] Comment on above: Order Comment: Order Added by Discern Expert. Performed By: #### 2 402243, 2547937, 0398807, [id number], [id number] ####[facility] [address] [place] [address] Neutrophils/100 WBC (Bld) 68.4 % Normal 36.0-75.0 [facility] Comment on above: Order Comment: Order Added by Discern Expert. Performed By: #### 2 455152, 5908619, 9616421, 9735179, [id number] ####[address] [place] [address] Neutrophils/Leukocytes Auto (Bld) [Pure # fraction] 5.3 E9/L Normal 2.0-7.5 [facility] Comment on above: Order Comment: Order Added by Discern Expert. Performed By: #### 2 184386, 4481410, 1317912, 2730579, [id number] ####[facility] [address] [place] [address] CBC w/ Auto Diffon Erythrocyte distribution width (RBC) [Ratio] 16.3 % High 10.9-14.2 [facility] Comment on above: Performed By: #### 2 904322, 4307289, 1483451, 2040842, [id number] #### [facility] [address] [place] [address] Hematocrit (Bld) [Volume fraction] 43.7 % Normal 37.7-49.0 [facility] Comment on above: Performed By: #### 2 828842, 1016115, 1878054, 7558377, [id number] #### [facility] [address] [place] [address] Hemoglobin (Bld) [Mass/Vol] 14.4 g/dL Normal 13.5-17.5 [facility] Comment on above: Performed By: #### 2 351035, 2786683, 7591049, 1225900, 39839629 #### [facility] [address] [place] [address] MCH (RBC) [Entitic mass] 27.9 pg Normal 27.0-34.0 [facility] Comment on above: Performed By: #### 2 730933, 9835703, 9412968, 8578570, 56126367 #### [facility] [address] [place] [address] MCHC (RBC) [Mass/Vol] 33.0 g/dL Normal 31.4-36.0 [facility] Comment on above: Performed By: #### 2 393558, 5262743, 1523184, 0215884, [id number] #### [facility] [address] [id number] MCV (RBC) [Entitic vol] 84.8 fL Normal 80.0-100.0 [facility] Comment on above: Performed By: #### 2 142682, 7011796, 3542582, 8927568, 46134536 #### [facility] [address] [place] [address] Platelet mean volume (Bld) [Entitic vol] 7.7 fL Normal 6.4-10.8 [facility] Comment on above: Performed By: #### 2 982634, 4205708, 9159762, 9700926, 48668712 #### [facility] [address] [place] [address] Platelets (Bld) [#/Vol] 278.0 E9/L Normal 150.0-500.0 [facility] Comment on above: Performed By: #### 2 916161, 4549948, 4383611, 2121476, 46472211 #### [facility] [address] [place] [address] RBC (Bld) [#/Vol] 5.2 E12/L Normal 4.3-5.9 [facility] Comment on above: Performed By: #### 2 907746, 2152161, 7777402, 3081743, 57508426 #### [facility] [address] [place] [address] WBC corrected for nucl RBC Auto (Bld) [#/Vol] 7.7 E9/L Normal 4.0-11.0 [facility] Comment on above: Performed By: #### 2 194712, 9169505, 6413998, 7464169, 19741575 #### [facility] [address] [place] [address] CHEMISTRYOrdered By: SYSTEM SYSTEM on 03-19-2023 Cholesterol [...] day(s), # 21 tab(s), Refills(s) 0, Pharmacy: [facility]/pharmacy #6177, 176.5, cm, 03/19/23 13:15:00 EDT, Height/Length Dosing phentermine, 37.5 mg = 1 tab(s), Oral, Daily, # 30 tab(s), Refills(s) 0, Pharmacy: [facility]/pharmacy #6177, 176.5, cm, 03/19/23 13:15:00 EDT, [...] day(s), # 21 tab(s), Refills(s) 0, [facility] 176.5, cm, 03/19/23 13:15:00 EDT, Height/Length Dosing phentermine, 37.5 mg = 1 tab(s), Oral, Daily, # 30 tab(s), Refills(s) 0, [facility] 176.5, cm, 03/19/23 13:15:00 EDT, Height/Length Dosing CBC w/ Auto Diff Cologuard Screening Test Lipid Panel PSA Screen, Total Thyroid Stimulating Hormone 3. Non-smoker (Z78.9: Other specified health status) continue not smoking Ordered: methylPREDNISolone, = 1 packet(s), Oral, As Directed, as directed on package labeling, X 6 day(s), # 21 tab(s), Refills(s) 0, Pharmacy: [facility]/pharmacy #6177, 176.5, cm, 03/19/23 13:15:00 EDT, Height/Length Dosing phentermine, 37.5 mg = 1 tab(s), Oral, Daily, # 30 tab(s), Refills(s) 0, Pharmacy: [facility]/pharmacy #6177, 176.5, cm, 03/19/23 13:15:00 EDT, Height/Length Dosing CBC w/ Auto Diff Cologuard Screening Test Lipid Panel PSA Screen, Total Thyroid Stimulating Hormone 4. Left sciatic nerve pain (M54.32: Sciatica, left side) medrol dose pack sent Ordered: methylPREDNISolone, = 1 packet(s), Oral, As Directed, as directed on package labeling, X 6 day(s), # 21 tab(s), Refills(s) 0, Pharmacy: [facility]/pharmacy #6177, 176.5, cm, 03/19/23 13:15:00 EDT, Height/Length Dosing phentermine, 37.5 mg = 1 tab(s), Oral, Daily, # 30 tab(s), Refills(s) 0, Pharmacy: [facility]/pharmacy #6177, 176.5, cm, 03/19/23 13:15:00 EDT, Height/Length Dosing Colon cancer screening (Z12.11: (more content not included)... Normal [facility] Comment on above: Result Comment: Elec tronically Signed By: Torsten MONSIVAIS, Alexia Sewell\.br\Date and Time Signed: 03/19/23 14:00 EDT Formson 03-19-2023 Forms [id number]:127 Normal [facility] HEMATOLOGYOrdered By: SYSTEM SYSTEM on [...] 0.7 E9/L Normal 0.2 - 1.0 E9/L FT HemeAutoSS Neutrophils/100 WBC (Bld) 68.4 % Normal [...] 7.7 E9/L Normal 4.0 - 11.0 E9/L [facility] HemeAutoSS Lipid Panelon 03-19-2023 Cholesterol [Mass/Vol] 171 mg/dL Normal 120-200 [facility] Comment on above: Performed By: #### 2 730761, 1001445, 0237556, 9827601, 55471849 ####[facility] [address] [place] [address] Cholesterol in HDL [Mass/Vol] 39 mg/dL Invalid Interpretation Code [facility] Comment on above: Result Comment: HDL > or equal to 60 mg/dL: Low cardiovascular risk HDL < 40 mg/dL : High cardiovascular risk Performed By: #### 2 702258, 5635893, 5539565, 3613499, 14628995 ####[facility] [address] [address] Cholesterol in LDL [Mass/Vol] 112 mg/dL Normal <=129 [facility] Comment on above: Performed By: #### 2 028979, 1533563, 7207701, 4646037, 98301942 ####[facility] [address] [place] [address] Cholesterol in VLDL [Mass/Vol] 19 mg/dL Normal 7-40 [facility] Comment on above: Performed By: #### 2 430963, 7598861, 6428335, 5047711, 08754579 ####[facility] [address] [place] [address] Triglyceride [Mass/Vol] 94 mg/dL Normal <=149 [facility] Comment on above: Performed By: #### 2 460349, 1720101, 6031427, 3330675, 18104315 ####[facility] [address] [place] [address] PSA Screen, Totalon 03-19-20 23 Prostate specific Ag [Mass/Vol] 0.9 ng/mL Normal 0.1-3.5 [facility] Comment on above: Result Comment: The concentration of PSA determined by different manufacturers can vary due to differences in assay methods and reagent specificity. Values obtained from different assay methods cannot be used interchangeably. The methodology used for this result was chemiluminescence using [employer]'s Access Hybritech PSA reagent. Performed By: #### 2 626346, 2984263, 5061608, 9086989, 87869832 ####[facility] [address] [place] [address] TSHon 03-19-2023 TSH Qn 2.03 m[IU]/L Normal 0.34-5.60 [facility] Comment on above: Performed By: #### 2 058280, 6678160, 6444322, 0703952, 66266199 ####[facility] [address] [place] [address] [facility]11 SARS-CoV-2 (COVID-19) RNA BETHANY+probe Ql (Unsp spec) Not detected Normal NOT DETECTED [facility] Comment on above: Result Comment: When [...] for this test is supported by the Resource Specialist Teacher of Health and Human Service's declaration that [...] used). Performed By: #### C VDTBH #### [facility] [address] [place] [address] Dr. Mynor Yun GROUP A STREP CULTUREon 07-11 S. pyogenes Ag Ql (Unsp spec) Culture Observations: NEGATIVE FOR GROUP A STREPTOCOCCUS. Normal [facility] Comment on above: Performed By: #### G RASTCX #### [facility] [address] [address] [address] Mynor Yun INFLUENZA A AND B AGon 07-28 INFLUANEGH SEE BELOW Normal [facility] Comment on above: Result Comment: Nega tive for Flu A protein angiten. Infection due to Flu A cannot be ruled out. Flu A angiten in the sample may be below the detection limit of the test. Performed By: #### I NFLUAB #### [facility] [address] [place] [address] Dr. Mynor Yun INFLUBNEG SEE BELOW Normal [facility] Comment on above: Result Comment: Nega tive for Flu B protein antigen. Infection due to Flu B cannot be ruled out. Flu B antigen in the sample may be below the detection limit of the test. Performed By: #### I NFLUAB #### [facility] [address] [place] [address] Dr. Mynor Yun INFLUENZA A AG Negative Normal NEGATIVE SEE COMMENT [facility] Comment on above: Performed By: #### I NFLUAB #### [facility] [address] [place] [address] Dr. Mynor Yun INFLUENZA B AG Negative Normal NEGATIVE SEE COMMENT [facility] Comment on above: Performed By: #### I NFLUAB #### [facility] [address] [place] [address] Dr. Mynor Yun INTERNAL CONTROLS Within Normal Limits Normal Wi thin Normal Limits [facility] Comment on above: Performed By: #### I NFLUAB #### [facility] [address] [place] [address] Dr. Mynor Yun STREPT SCREENon 07-28-2022 STREP SCREEN A Negative Normal NEGATIVE [facility] Comment on above: Performed By: #### S SCRN #### [facility] [address] [place] [address] Dr. Mynor Yun XR SINUSES 3 VIEWS [...] IMPRESSION: Clear paranasal sinuses Electronically authenticated by: KELILE SMALLS Date: 2022-02-01 09:58 Normal [facility] HAND LEFT 3 VWSon 12-29-2021 HAND LEFT 3 S [facility] Department of Radiology [address] [place] [id number] Patient Name: RAKESH PIÑA : 1975 Sex: M Age: Race: White Pt. Location: 84 Patient Status: D Ordered Date: 12/29/2021 11:45:00 AM Completed Date: 12/29/2021 11:50 AM Requesting Provider: LORI DALLAS Attending Provider: LORI DALLAS Report Copy To: Signs & Symptoms: M79.642 Pain in left hand I10 History: Comments: Evaluate Exam: HAND LEFT 3 [facility] HAND LEFT 3 [facility] 12/29/2021 11:50 AM CLINICAL INDICATIONS: M79.642 [...] alignment. Electronically signed: Heather Montana. Transcribed by: [email or web address], User Resident: Electronically Signed by: HEATHER MONTANA @ 12/31/2021 08:55 AM Normal [facility] Comment on above: Order Comment: Evalu ate HAND LEFT 3 Son 12-08-2021 HAND LEFT 3 S [facility] Department of Radiology [address] [place] [phone] Patient Name: RAKESH PIÑA : 1975 Sex: M Age: Race: White Pt. Location: Patient Status: D Ordered Date: 12/08/2021 1:25:00 PM Completed Date: 12/08/2021 01:29 PM Requesting Provider: LORI DALLAS Attending Provider: LORI DALLAS Report Copy To: Signs & Symptoms: M79.642 Pain in left hand I10 History: Rekha Comments: Evaluate Exam: HAND LEFT 3 [facility] HAND LEFT 3 S 12/08/2021 1:29 [...] bridging. Electronically signed: Ronaldo Major. Transcribed by: [email or web address], User Resident: Electronically Signed by: RONALDO MJAOR @ 12/09/2021 04:04 PM Normal [facility] Comment on above: Order Comment: Evalu ate HAND LEFT 3 Son 11-14-2021 HAND LEFT 3 [facility] Department of Radiology [address] [place] [phone] Patient Name: RAKESH PIÑA : 1975 Sex: M Age: Race: White Pt. Location: Patient Status: O Ordered Date: 11/14/2021 1:50:00 PM Completed Date: 11/14/2021 01:58 PM Requesting Provider: CAPRICE CHAMBRES Attending Provider: CAPRICE CHAMBERS Report Copy To: Signs & Symptoms: S62.306A Unsp fracture of fifth metacarpal bone, left hand, init I10 History: Comments: Views (X-RAY, HAND): PA, Lateral, Oblique Exam: HAND LEFT 3 [facility] HAND LEFT 3 S 11/14/2021 1:58 [...] fracture. Electronically signed: Ramirez Smith. Transcribed by: [email or web address], User Resident: Electronically Signed by: RAMIREZ SMITH @ 11/14/2021 08:02 PM Normal [facility] Comment on above: Order Comment: Views (X-RAY, HAND): PA, Lateral, Oblique TESTOSTERONE, TOTALon 2021 Testosterone [Mass/Vol] 411 ng/dL Normal 264-916 [facility] Comment on above: Result Comment: Adul t male reference interval is based on a population of healthy nonobese males (BMI <30) between 19 and 39 years old. precious Perdue.al. JCEM 2017,102;9767-1296. PMID: [id number]. Performed By: #### T ESTTOT #### [facility] [address] [place] [address] Dr. Mynor Yun CBC AUTO DIFFon 11-11-2021 BASO # 0.0 103/ul Normal 0.0-0.1 [facility] Comment on above: Performed By: #### C BC #### [facility] [address] [place] [address] Dr. Mynor Yun Basophils/100 WBC (Bld) 0.2 % Normal 0.2-2.0 [facility] Comment on above: Performed By: #### C BC #### [facility] [address] [place] [address] Dr. Mynor Yun EO # 0.1 103/ul Normal 0.0-0.7 [facility] Comment on above: Performed By: #### C BC #### [facility] [address] [place] [address] Dr. Mynor Yun Eosinophils/100 WBC (Bld) 1.2 % Normal 0.9-7.0 [facility] Comment on above: Performed By: #### C BC #### [facility] [address] [place] [address] Dr. Mynor Yun Erythrocyte distribution width (RBC) [Ratio] 14.3 % Normal 11.0-15.0 [facility] Comment on above: Performed By: #### C BC #### [facility] [address] [place] [address] Dr. Mynor Yun Hematocrit (Bld) [Volume fraction] 47.3 % Normal 42.0-54.0 [facility] Comment on above: Performed By: #### C BC #### [facility] [address] [place] [address] Dr. Mynor Yun Hemoglobin (Bld) [Mass/Vol] 15.2 g/dL Normal 14.0-18.0 [facility] Comment on above: Performed By: #### C BC #### [facility] [address] [place] [address] Dr. Mynor Yun IG # 0.03 10e3/ul Normal 0.00-0.03 [facility] Comment on above: Performed By: #### C BC #### [facility] [address] [place] [address] Dr. Mynor Yun IG % 0.3 % Normal 0.0-0.5 [facility] Comment on above: Performed By: #### C BC #### [facility] [address] [place] [address] Dr. Mynor Yun LYMPH # 1.6 103/ul Normal 1.2-3.8 [facility] Comment on above: Performed By: #### C BC #### [facility] [address] [place] [address] Dr. Mynor Yun Lymphocytes/100 WBC (Bld) 18.4 % Critically low 20.5-60.0 [facility] Comment on above: Performed By: #### C BC #### [facility] [address] [place] [address] Dr. Mynor Yun MANUAL DIFF REQ NO Normal [facility] Comment on above: Performed By: #### C BC #### [facility] [address] [place] [address] Dr. Mynor Yun MCH (RBC) [Entitic mass] 28.8 pg Normal 25.9-34.0 [facility] Comment on above: Performed By: #### C BC #### [facility] [address] [place] [address] Dr. Mynor Yun MCHC (RBC) [Mass/Vol] 32.1 g/dL Normal 29.9-35.2 [facility] Comment on above: Performed By: #### C BC #### [facility] [address] [place] [address] Dr. Mynor Yun MCV (RBC) [Entitic vol] 89.8 fL Normal 80.0-94.0 [facility] Comment on above: Performed By: #### C BC #### [facility] [address] [place] [address] Dr. Mynor Yun MONO # 0.7 103/ul Normal 0.3-0.8 [facility] Comment on above: Performed By: #### C BC #### [facility] [address] [place] [address] Dr. Mynor Yun Monocytes/100 WBC (Bld) 8.4 % Normal 1.7-12.0 [facility] Comment on above: Performed By: #### C BC #### [facility] [address] [place] [address] Dr. Mynor Yun NEUT # 6.2 103/ul Normal 1.4-6.5 [facility] Comment on above: Performed By: #### C BC #### [facility] [address] [place] [address] Dr. Mynor Yun Neutrophils/100 WBC (Bld) 71.5 % Normal 43.0-75.0 [facility] Comment on above: Performed By: #### C BC #### [facility] [address] [place] [address] Dr. Mynor Yun Platelet mean volume (Bld) [Entitic vol] 8.7 fL Critically low 9.5-13.5 [facility] Comment on above: Performed By: #### C BC #### [facility] [address] [place] [address] Dr. Mynor Yun PLT 263 103/ul Normal 150-450 [facility] Comment on above: Performed By: #### C BC #### [facility] [address] [place] [address] Dr. Mynor Yun RBC 5.27 106/ul Normal 4.70-6.10 [facility] Comment on above: Performed By: #### C BC #### [facility] [address] [place] [address] Dr. Mynor Yun WBC 8.7 103/ul Normal 4.0-11.0 [facility] Comment on above: Performed By: #### C BC #### [facility] [address] [address] [address] Mynor Yun LIPID PROFILEon 11-11-2021 CHOL-HDL RATIO NORM SEE BELOW Normal [facility] Comment on above: Result Comment: 3.3 - 4.4 LOW RISK 4.4 - 7.1 AVERAGE RISK 7.1 - 11.0 MODERATE RISK >11.0 HIGH RISK Performed By: #### S SCRN #### [facility] [address] [address] [address] Mynor Yun Cholesterol [Mass/Vol] 129 mg/dL Normal <=200 [facility] Comment on above: Performed By: #### S SCRN #### [facility] [address] [address] [address] Mynor Yun Cholesterol in HDL [Mass/Vol] 34 mg/dL Normal [facility] Comment on above: Performed By: #### S SCRN #### [facility] [address] [address] [address] Mynor Yun Cholesterol in LDL [Mass/Vol] 82.2 mg/dL Normal [facility] Comment on above: Performed By: #### S SCRN #### [facility] [address] [address] [address] Mynor Yun Cholesterol.total/Chol esterol in HDL [Mass ratio] 3.8 {ratio} Normal [facility] Comment on above: Performed By: #### S SCRN #### [facility] [address] [address] [address] Mynor Yun HDL NORMAL > or = 60 mg/dl - LO W CARDIOVASCULAR RISK <40 mg/dl - HIGH CARDIOVASCULAR RISK Normal [facility] Comment on above: Performed By: #### S SCRN #### [facility] [address] [address] [address] Mynor Yun LDL CALC NORMAL SEE BELOW Normal [facility] Comment on above: Result Comment: <100 mg/dl OPTIMAL 100 - 129 mg/dl NEAR OR ABOVE OPTIMAL 130 - 159 mg/dl BORDERLINE HIGH 160 - 189 mg/dl HIGH >190 mg/dl VERY HIGH Performed By: #### S SCRN #### [facility] [address] [address] [address] Mynor Yun Triglyceride [Mass/Vol] 64 mg/dL Normal <=150 [facility] Comment on above: Performed By: #### S SCRN #### [facility] [address] [address] [address] Mynor Yun VLDL CALC 12.8 mg/dL Normal [facility] Comment on above: Performed By: #### S SCRN #### [facility] [address] [address] [address] Mynor Yun PROF 14(COMP METB)on 022 Albumin [Mass/Vol] 3.8 g/dL Normal 3.5-5.0 [facility] Comment on above: Performed By: #### T SH, LIPID, CMP #### [facility] [address] [place] [address] Dr. Mynor Yun Albumin/Globulin [Mass ratio] 0.9 {ratio} Normal [facility] Comment on above: Performed By: #### T SH, LIPID, CMP #### [facility] [address] [place] [address] Dr. Mynor Yun ALP [Catalytic activity/Vol] 76 U/L Normal 38-126 [facility] Comment on above: Performed By: #### T SH, LIPID, CMP #### [facility] [address] [place] [address] Dr. Mynor Yun ALT [Catalytic activity/Vol] 49 U/L Normal 21-72 [facility] Comment on above: Performed By: #### T SH, LIPID, CMP #### [facility] [address] [place] [address] Dr. Mynor Yun Anion gap [Moles/Vol] 11.2 mmol/L Normal [facility] Comment on above: Performed By: #### T SH, LIPID, CMP #### [facility] [address] [place] [address] Dr. Mynor Yun AST [Catalytic activity/Vol] 31 U/L Normal 17-59 [facility] Comment on above: Performed By: #### T SH, LIPID, CMP #### [facility] [address] [place] [address] Dr. Mynor Yun Bilirubin [Mass/Vol] 0.5 mg/dL Normal 0.2-1.3 [facility] Comment on above: Performed By: #### T SH, LIPID, CMP #### [facility] [address] [place] [address] Dr. Mynor Yun Calcium [Mass/Vol] 9.0 mg/dL Normal 8.4-10.2 [facility] Comment on above: Performed By: #### T SH, LIPID, CMP #### [facility] [address] [place] [address] Dr. Mynor Yun Chloride [Moles/Vol] 104 mmol/L Normal 98-107 [facility] Comment on above: Performed By: #### T SH, LIPID, CMP #### [facility] [address] [place] [address] Dr. Mynor Yun CO2 [Moles/Vol] 30.6 mmol/L Critically high 22.0-30.0 [facility] Comment on above: Performed By: #### T SH, LIPID, CMP #### [facility] [address] [place] [address] Dr. Mynor Yun Creatinine [Mass/Vol] 0.95 mg/dL Normal 0.66-1.25 [facility] Comment on above: Performed By: #### T SH, LIPID, CMP #### [facility] [address] [place] [address] Dr. Mynor Yun EGFR-AF GIBRALTARIAN >60 Normal >=60 [facility] Comment on above: Performed By: #### T SH, LIPID, CMP #### [facility] [address] [place] [address] Dr. Mynor Yun EGFR-NON AF GIBRALTARIAN >60 Normal >=60 [facility] Comment on above: Performed By: #### T SH, LIPID, CMP #### [facility] [address] [place] [address] Dr. Mynor Yun Globulin (S) [Mass/Vol] 4.3 g/dL Normal [facility] Comment on above: Performed By: #### T SAMARIA LIPID, CMP #### [facility] [address] [place] [address] Dr. Mynor Yun Glucose [Mass/Vol] 104 mg/dL Normal 74-106 [facility] Comment on above: Performed By: #### T SAMARIA LIPID, CMP #### [facility] [address] [place] [address] Dr. Mynor Yun Potassium [Moles/Vol] 3.8 mmol/L Normal 3.4-5.0 [facility] Comment on above: Performed By: #### T SAMARIA LIPID, CMP #### [facility] [address] [place] [address] Dr. Mynor Yun Protein [Mass/Vol] 8.1 g/dL Normal 6.1-8.2 [facility] Comment on above: Performed By: #### T SAMARIA LIPID, CMP #### [facility] [address] [place] [address] Dr. Mynor Yun Sodium [Moles/Vol] 142 mmol/L Normal 137-145 [facility] Comment on above: Performed By: #### T SAMARIA LIPID, CMP #### [facility] [address] [place] [address] Dr. Mynor Yun Urea nitrogen [Mass/Vol] 11.0 mg/dL Normal 9.0-20.0 [facility] Comment on above: Performed By: #### T SAMARIA, LIPID, CMP #### [facility] [address] [place] [address] Dr. Mynor Yun Urea nitrogen/Creatinine [Mass ratio] 11.6 mg/mg Normal [facility] Comment on above: Performed By: #### T SAMARIA, LIPID, CMP #### [facility] [address] [place] [address] Dr. Mynor Yun TSHon 11-11-2021 TSH 1.612 uIU/mL Normal 0.470-4.680 [facility] Comment on above: Performed By: #### T SAMARIA, LIPID, CMP #### [facility] [address] [address] [address] Mynor Yun TSH RANGE SEE BELOW Normal [facility] Comment on above: Result Comment: <0.3 4 UIU/ml HYPERTHYROID 0.34-5.60 UIU/ml EUTHYROID >5.60 UIU/ml HYPOTHYROID Performed By: #### T SH, LIPID, CMP #### [facility] [address] [address] [address] Mynor Yun Encounters Encounter Date Encounter Type Care Provider Facility Start: 01-23-2024 End: 01-26-2024 ambulatory ALEXIA TORSTEN [facility] Start: 01-16-2024 End: 01-17-2024 ambulatory LOSS PREVENTION AUDITOR [facility] L [facility] Start: 01-14-2024 End: 01-15-2024 ambulatory LOSS PREVENTION AUDITOR Alexia L Torsten [facility] Start: 01-09-2024 End: 01-10-2024 ambulatory LOSS PREVENTION AUDITOR Alexia L Torsten [facility] Start: 12-03-2023 End: 12-04-2023 ambulatory Docus Geo Buckner MD Facility: [facility] Start: 11-05-2023 End: 11-06-2023 ambulatory Wilbert Valenciaitis Facility: [facility] Start: 08-23-2023 End: 08-24-2023 ambulatory LOSS PREVENTION AUDITOR Alexia L Torsten [place] Start: 07-26-2023 End: 07-27-2023 ambulatory LOSS PREVENTION AUDITOR Alexia L Torsten [facility] Start: 06-21-2023 End: 06-22-2023 ambulatory LOSS PREVENTION AUDITOR Alexia L Torsten [facility] Start: 05-22-2023 End: 05-23-2023 ambulatory LOSS PREVENTION AUDITOR Alexia L Torsten [facility] Start: 04-24-2023 End: 04-25-2023 ambulatory LOSS PREVENTION AUDITOR Alexia L Torsten [facility] Start: 03-19-2023 End: 03-20-2023 ambulatory LOSS PREVENTION AUDITOR Alexia L Torsten [place] Start: 03-19-2023 End: 03-20-2023 ambulatory LOSS PREVENTION AUDITOR Alexia L Torsten [facility] Start: 03-19-2023 End: 03-19-2023 Lab Drop off Alexia L Torsten [facility] Start: 03-15-2023 ambulatory LOSS PREVENTION AUDITOR Alexia Torsten Facilit y:[facility] Start: 07-28-2022 End: 07-28-[address] LULU BLANK Facility:[facility] Start: 02-01-2022 End: 02-02-[address] LULU BLANK Facility:[facility] Start: 11-15-2021 Encounter for genera l adult medical examination without abnormal findings DR LULU BLANK [facility] Start: 11-11-2021 End: 11-12-[address] LULU BLANK Facility:[facility] Start: 11-11-2021 End: 11-12-2021 Encounter for general adult medical examination without abnormal findings DR LULU BLANK Facility:[facility] Start: 11-10-2021 End: 11-11-2021 ambulatory MAZIN CANO Facility:[facility] Procedures Date Procedure Procedure Detail Performing Clinician Gastric sleeve Alexia Torsten Comment on above: 2009 Immunizations Immunization Date Immunization [facility] influenza virus vacc ine, unspecified formulation Alexia Torsten [facility] 11-12-2020 SARS-CoV-2 (COVID-19 ) mRNA BNT-162b2 vax Alexia Torsten [facility] 10-22-2020 SARS-CoV-2 (COVID-19 ) mRNA BNT-162b2 vax Alexia Torsten [facility] 03-10-2019 pneumococcal polysaccharide vaccine, 23 valent Alexia Torsten [facility] Payers Date Payer Category Payer Unknown 2022 Unknown [id number] 2019 Unknown [id number] 1977 Unknown [id number] 2.16.84 0.1.061037.3.579.2.593 1977 Unknown [id number] 2.16.84 0.1.871795.3.579.2.593 1977 Unknown [id number] 2.16.84 0.1.434827.3.579.2.593 1977 Unknown [id number] 2.16.84 0.1.427089.3.579.2.593 1977 Unknown [id number] 2.16. 840.1.803975.3.579.2.196 1977 Unknown [id number] 2.16. 840.1.823890.3.579.2.196 1977 Unknown [id number] 2.16.8 40.1.079015.3.579.2.182 1977 Unknown [id number] 2.16.8 40.1.149274.3.579.2.182 1977 Unknown [id number] 2.16.8 40.1.420839.3.579.2.727 1977 Unknown [id number] 2.16.8 40.1.065106.3.579.2.727 1977 Unknown [id number] 2.16.8 40.1.965117.3.579.2.727 1977 Unknown [id number] 2.16.8 40.1.725907.3.579.2.727 1977 Unknown [id number] 2.16.8 40.1.434439.3.579.2.727 1977 Unknown [id number] 2.16.8 40.1.458846.3.579.2.727 1977 Unknown [id number] 2.16.8 40.1.621200.3.579.2.727 1977 Unknown [id number] 2.16.8 40.1.645997.3.579.2.727 1977 Unknown [id number] 2.16.8 40.1.266562.3.579.2.727 1977 Unknown [id number] 2.16.8 40.1.193323.3.579.2.727 1977 Unknown [id number] 2.16.8 40.1.567479.3.579.2.727 1957 Medicare [id number] 1957 Unknown [id number] Social History Date Type Detail Facility Start: 03-19-2023 Tobacco smoking status Ex-smoker (fi nding) [facility] Tobacco smoking status Never [facility] Sex Assigned At Male [facility] Clinical Note 11-10-2021 Note Date & Type [...] authenticated by: KELLIE SMALLS Date: 2021-11-10 13:16 [facility] Evaluation + Plan note Note Date & Type [facility] Facility Evaluation + Plan note Future Appointments Appointment Date:04/23/2023 11:00:00 AM Scheduled Provider:Alexia Muhammad Location:[facility] Appointment Type: Open [facility] Hospital course Narrative Note Date & Type Note Facility Hospital course Narrative No data available for this section [facility] Hospital Discharge instructions Note Date & Type Note Facility Hospital Discharge instructions No data available for this section [facility] Progress note Note Date & Type Note Facility Progress note No data available for this section [facility] Summary Purpose Family History No Family History [...] and content) DATE CREATED AUTHOR 01/28/2022 [facility] DATE CREATED AUTHOR AUTHOR'S ORGANIZ ATION 08/10/2022 [facility] DATE CREATED AUTHOR AUTHOR'S ORGANIZ ATION 01/17/2024 [facility] DATE CREATED AUTHOR AUTHOR'S ORGANIZ ATION 01/28/2024 [facility] DATE CREATED AUTHOR AUTHOR'S ORGANIZ ATION 02/07/2024 [facility] Patient Care team informatio n (unrecognized section and content) Personnel Name: Alexia Muhammad Address: Address: [address] [place] [address]- FOR RECORDS PERTAINING TO PATIENTS WHO ARE [...] BE BASED ON THE PRIMARY CLINICAL RECORDS. [facility] [employer] [facility]. provides no warranty or guarantee of the accuracy or completeness of information in this document.
== END 2024-02-20 09:11 | disposition home or self-care (01) ==
LOC: PM 09:11
PROVIDERS: PCP Nurse Practitioner; Visit Provider Nurse Practitioner
DX: M47.816 Spondylosis without myelopathy or radiculopathy, lumbar region (principal); M48.062 Spinal stenosis, lumbar region with neurogenic claudication; M46.1 Sacroiliitis, not elsewhere classified
CPT/HCPCS: G0463

== ENCOUNTER 2024-02-25 07:25 | Day surgery (SDC) | payer BC, MEDICARE, SELFPAY ==
--- OUTSIDE RECORDS SUMMARY | 2024-02-25 07:31 | XMS_ITS | CCD ---
Author Organization [facility] Care Team Providers Care Security Guard Dispatcher Name Role Phone MAZIN CANO Admitting Unavailable MAZIN CANO Attending Unavailable SHEILA, DR LUUL Tejeda Primary Care Unavailable WEST, DR KELLIE [...] Alexia L Admitting Unavailable Torsten, Alexia L Admitting Unavailable Torsten, Alexia L Attending Unavailable Torsten, Alexia L Attending Unavailable Torsten, Alexia L Attending Unavailable Medications [...] day(s), # 21 tab(s), Refills(s) 0, Pharmacy: [facility]/pharmacy #[id number], 176.5, cm, 03/19/23 [...] day(s), # 30 tab(s), Refills(s) 0, Pharmacy: [facility]/pharmacy #6177, 176.5, cm, 03/19/23 [...] Value Interpretation Reference Range Facility Consultation Noteon 02-20-20 Consultation Note [id number]#1 .00TIFF Normal [facility] Consultation Noteon 02-06-20 Consultation Note [id number]#1 .00TIFF Normal [facility] RAD - MRI Reporton RAD - MRI Report [id number]#1 .00TIFF Normal [facility] MRI LUMBAR SPINE WO CONTRAST on [...] compromise. L2-L3: No disc bulge or protrusion. Edno-cw-fenvugpq facet arthropathy. No significant central canal stenosis. [...] Carson Linares DO 01/24/24 Final result Normal [facility] MRI THORACIC SPINE WO CONTRA STon 01-23-2024 [...] Carson Linares DO 01/24/24 Final result Normal [facility] Family Medicine Office/Clini c Noteon 01-17-2024 Family Medicine Office/Clinic Note HPI Staff Rakesh is a 48 year old male presenting for follow up on back pain VENANCIO 01/09/2024 Low back pain with left-sided sciatica was given ketorolac, MRI ordered pt tried to get it done Sunday but couldn't get done they didn't due to wasn't open MRI. MRI order was sent to [facility] in [place]. Pt states the burning sensation from sitting [...] not able to get MRI done at [facility]. is waiting for PA for MRI in [place]. they have an open MRI machine. needs [...] days., # 18 tab(s), Refills(s) 0, Pharmacy: [facility]/pharmacy #6177, 187.5, cm, 01/16/24 13:46:00 EDT, Height/Length Dosing, 183, kg, 01/16/24 13:4... 3. Non-smoker (Z78.9: Other specified health status) continue not smoking Ordered: predniSONE, = 1 -, Oral, As Directed, Take 3 tabs by mouth daily x3 days, then 2 tabs daily x3 days, then 1 tab daily x3 days., # 18 tab(s), Refills(s) 0, Pharmacy: [facility]/pharmacy #6177, 187.5, cm, 01/16/24 13:46:00 EDT, Height/Length [...] pneumococcal 23-valent vaccine 03/10/2019 Recorded Normal [facility] Comment on above: Result Comment: Elec [...] 1 tab daily x3 days. Pickup at [facility]/pharmacy #6177 Unchanged cranberry (cranberry [...] Pain Non-smoker BMI 60.0-69.9, adult Pharmacy Information [facility]/pharmacy #6177: [address] [place], [place] [phone] Allergies No Known Allergies Problems Ongoing - [...] you for choosing us for your care. Normal [facility] Physician Orderon 01-14-2024 Physician Order [id number]#1 .00TIFF Normal [facility] Provider Letteron 01-14-2024 Provider Letter January 14, 2024 RAKESH PIÑA [address] [place] [id number] : 1975 To Whom It May Concern, Please excuse above patient from work. Date of Illness: From: 01/07/2024 To: 01/16/2024 May Return to Work On: 01/17/2024 Restrictions: None Comments: Sincerely, Family Medicine [address] [address] [facility] Ambulatory Visit Summaryon 0 01-09-2024 Ambulatory Visit [...] 11:20 AM EDT With: Alexia Muhammad Where: [facility] [place] 01-09-2024 Consent [id number]#1 .00TIFF [facility] ED Note-Physicianon 01-09-20 ED Note-Physician [id number]# 1.00TIFF [facility] Family Medicine Office/Clini c Noteon 01-09-2024 Family Medicine Office/Clinic Note HPI Staff Rakesh is a 48 year old male presenting for ER follow up ER followup: Hospital: [facility] Visit date: 01/07/24 Symptoms the patient [...] Pain, # 60 tab(s), Refills(s) 0, Pharmacy: [facility]/pharmacy #6177, 187.5, cm, 01/09/24 [...] Pain, # 60 tab(s), Refills(s) 0, Pharmacy: [facility]/pharmacy #6177, 187.5, cm, 01/09/24 10:51:00 EDT, Height/Length Dosing, 187.5, kg, 08/23/23 9:30:00 EST, Weight Dosing triamcinolone, 60 mg = 1.5 mL, Injection, IntraMuscular, Once, Stop date 01/09/24 11:20:00 EDT, Routine, Start date 01/09/24 11:20:00 EDT, 01/09/24 11:20:00 EDT Orders: phentermine, 37.5 mg = 1 tab(s), Oral, Daily, # 30 tab(s), Refills(s) 0, Pharmacy: [facility], 176.5, cm, 07/26/23 9:32:00 EST, Height/Length [...] Social Hi (more content not included)... Normal [facility] Comment on above: Result Comment: Elec tronically Signed By: Alexia Muhammad\.br\Date and Time Signed: 01/09/24 11:25 EDT Physician Orderon 01-09-2024 Physician Order [id number]#1 .00TIFF [facility] Provider Letteron 01-09-2024 Provider Letter January 09, [address] [address] : 1975 To Whom It May Concern, Please excuse above patient from work due to medical Date of Illness: From: _01-08-24 To: _01-14-24 May Return to Work On:01-15-24 Restrictions: _ Comments: _ Sincerely, Family Medicine [address] [address] Normal [facility] RAD - CT Reporton 01-09-[address] - [address] Report [id number]#1 .00TIFF [facility] ED Note-Physicianon 01-08-20 ED Note-Physician [id number]#1 .00TIFF [facility] RAD - CT Reporton 01-08-[address] RAD - CT Report [id number]#1 .00TIFF [facility] Operative Reporton Operative Report [id number]#1 .00TIFF [facility] Consultation Noteon 11-07-19 Consultation Note [id number]#1 .00TIFF [facility] PT - Progress Noteson 2023 PT - Progress Notes [id number]#1 .00TIFF [facility] RAD - MISCon 10-29-2023 RAD - MISC [id number]#1 .00TIFF [facility] Retail - Clinical Noteon Retail - Clinical Note [id number]#1 .00TIFF [facility] Plan of Care - PT/OT/Speecho n 09-06-2023 Plan of Care - PT/OT/Speech [id number]#1 .00TIFF Normal [facility] Physician Referralon 023 Physician Referral [id number]# 1.00TIFF Normal [facility] Testost Totalon 08-25-2023 Testosterone [Mass/Vol] 321 ng/dL Invalid Interpretation Code [id number] [facility] Comment on above: Result Comment: Adul t male reference interval is based on a population of healthy nonobese males (BMI <30) between 19 and 39 years old. Iron et.al. JCEM 2017,102;1503-0961. PMID: [id number]. Performed at: [facility] [address] [id number] PhD Domenic Rider Performed By: #### 2 [id number], [id number], [id number] ####[facility] [address] [place] [address] Reminderson 08-24-2023 Reminders - From: Alexia Muhammad [...] left detailed message for patient below Normal [facility] Family Medicine Office/Clini c Noteon 08-23-2023 [...] thing was in slow motion. 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 He would [...] he would like referral to PT at [place] for bakc/leg pain. gabapentin and muscles relaxers did not help. 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 all questions answered. RTC as needed Ordered: cyclobenzaprine, 10 mg = 1 tab(s), Oral, Bedtime, PRN for spasm, # 30 tab(s), Refills(s) 0, Pharmacy: [facility], 176.5, cm, 07/26/23 9:32:00 EST, Height/Length Dosing, 187.2, kg, 07/26/23 9:32:00 EST, Weight Dosing gabapentin, 300 mg = 1 cap(s), Oral, Daily, # 30 cap(s), Refills(s) 0, Pharmacy: [facility], 176.5, cm, 07/26/23 9:32:00 EST, Height/Length Dosing, 187.2, kg, 07/26/23 9:32:00 EST, Weight Dosing 2. Fatigue (R53.83: Other fatigue) labs drawn today Ordered: Lab Specimen Collect [id number] Testosterone Level Total 3. Hypogonadism male (E29.1: Testicular hypofunction) testosterone ordered Ordered: Lab Specimen Collect [id number] Testosterone Level Total 4. BMI 60.0-69.9, adult (Z68.44: Body mass index [BMI] 60.0-69.9, adult) bmi education complete Ordered: cyclobenzaprine, 10 mg = 1 tab(s), Oral, Bedtime, PRN for spasm, # 30 tab(s), Refills(s) 0, Pharmacy: [facility], 176.5, cm, 07/26/23 9:32:00 EST, Height/Length Dosing, 187.2, kg, 07/26/23 9:32:00 EST, Weight Dosing gabapentin, 300 mg = 1 cap(s), Oral, Daily, # 30 cap(s), Refills(s) 0, Pharmacy: [facility], 176.5, cm, 07/26/23 9:32:00 EST, Height/Length Dosing, 187.2, kg, 07/26/23 9:32:00 EST, Weight Dosing Testosterone Level Total Vitamin B12 Level Vitamin D 25 Hydroxy Follow-up No qualifying data available Patient Education Obesity, Adult, Iuqp-vf-Jhyn Problem List/Past Medical History Ongoing Encounter for [...] ago Tob (more content not included)... Normal [facility] Comment on above: Result Comment: Elec [...] food choices, such as grocery stores and [employer] markets. What are the signs or symptoms? [...] How much exercise you get. ? Take gcop-lwb-jumbabx and prescription medicines only as told by [...] with yo (more content not included)... Normal [facility] Vit B12on 08-23-2023 Cobalamin (Vitamin B12) [Mass/Vol] 301 pg/mL Normal 50-1500 [facility] Comment on above: Performed By: #### 2 [id number], [id number], [id number] #### [facility] [address] [place] [address] Vitamin D 25 Hydroxyon 08-23 Vitamin D 25 Hydroxy 57.7 ng/mL Normal 30.0-100.0 [facility] Comment on above: Performed By: #### 2 [id number], [id number], [id number] ####[facility] [address] [place] [address] Ambulatory Visit Summaryon 1 09-25-2022 Ambulatory Visit [...] 9:20 AM EST With: Alexia Muhammad Where: [facility] [place] Normal [facility] Family Medicine Office/Clini c Noteon 07-26-2023 [...] spasm, # 30 tab(s), Refills(s) 0, Pharmacy: [facility], 176.5, cm, 07/26/23 9:32:00 EST, Height/Length Dosing, 187.2, kg, 07/26/23 9:32:00 EST, Weight Dosing gabapentin, 300 mg = 1 cap(s), Oral, Daily, # 30 cap(s), Refills(s) 0, Pharmacy: [facility], 176.5, cm, 07/26/23 9:32:00 EST, Height/Length Dosing, 187.2, kg, 07/26/23 9:32:00 EST, Weight Dosing methylPREDNISolone, = 1 packet(s), Oral, As Directed, as directed on package labeling, X 6 day(s), # 21 tab(s), Refills(s) 0, Pharmacy: [facility], 176.5, cm, 07/26/23 9:32:00 EST, Height/Length [...] spasm, # 30 tab(s), Refills(s) 0, Pharmacy: [facility] #[facility], 176.5, cm, 07/26/23 9:32:00 EST, Height/Length Dosing, 187.2, kg, 07/26/23 9:32:00 EST, Weight Dosing gabapentin, 300 mg = 1 cap(s), Oral, Daily, # 30 cap(s), Refills(s) 0, Pharmacy: [facility], 176.5, cm, 07/26/23 9:32:00 EST, Height/Length Dosing, 187.2, kg, 07/26/23 9:32:00 EST, Weight Dosing methylPREDNISolone, = 1 packet(s), Oral, As Directed, as directed on package labeling, X 6 day(s), # 21 tab(s), Refills(s) 0, Pharmacy: [facility], 176.5, cm, 07/26/23 9:32:00 EST, Height/Length Dosing, 187.2, kg, 07/26/23 9:32:00 EST, Weight Dosing 3. Numbness and tingling of foot (R20.0: Anesthesia of skin) discussed ENG results Ordered: cyclobenzaprine, 10 mg = 1 tab(s), Oral, Bedtime, PRN for spasm, # 30 tab(s), Refills(s) 0, Pharmacy: [facility], 176.5, cm, 07/26/23 9:32:00 EST, Height/Length Dosing, 187.2, kg, 07/26/23 9:32:00 EST, Weight Dosing gabapentin, 300 mg = 1 cap(s), Oral, Daily, # 30 cap(s), Refills(s) 0, Pharmacy: [facility], 176.5, cm, 07/26/23 9:32:00 EST, Height/Length Dosing, 187.2, kg, 07/26/23 9:32:00 EST, Weight Dosing methylPREDNISolone, = 1 packet(s), Oral, As Directed, as directed on package labeling, X 6 day(s), # 21 tab(s), Refills(s) 0, Pharmacy: [facility], 176.5, cm, 07/26/23 9:32:00 EST, Height/Length Dosing, 187.2, kg, 07/26/23 9:32:00 EST, Weight Dosing 4. Class 3 obesity (E66.01: Morbid (severe) obesity due to excess calories) pt continues with diet Ordered: cyclobenzaprine, 10 mg = 1 tab(s), Oral, Bedtime, PRN for spasm, # 30 tab(s), Refills(s) 0, Pharmacy: [facility], 176.5, cm, 07/26/23 9:32:00 EST, Height/Length Dosing, 187.2, kg, 07/26/23 9:32:00 EST, Weight Dosing gabapentin, 300 mg = 1 cap(s), Oral, Daily, # 30 cap(s), Refills(s) 0, Pharmacy: [facility], 176.5, cm, 07/26/23 9:32:00 EST, Height/Length Dosing, 187.2, kg, 07/26/23 9:32:00 EST, Weight Dosing methylPREDNISolone, = 1 packet(s), Oral, As Directed, as directed on package labeling, X 6 day(s), # 21 tab(s), Refills(s) 0, Pharmacy: [facility], (more content not included)... Normal [facility] Comment on above: Result Comment: Elec tronically Signed By: Alexia Muhammad\.br\Date and Time Signed: 07/26/23 09:54 EST EMG Electromyographyon 07-10 EMG Electromyography [id number]#1 .00TIFF Normal [facility] EMG Electromyography [id number]#1. 00TIFF [facility] Physician Referralon 023 Physician Referral [id number]# 1.00TIFF [facility] Ambulatory Visit Summaryon 1 Ambulatory Visit [...] 9:20 AM EST With: Alexia Muhammad Where: [facility] Family Medicine Office/Clini c Noteon [...] day(s), # 30 tab(s), Refills(s) 1, Pharmacy: [facility], 176.5, cm, 06/21/23 9:41:00 EDT, Height/Length Dosing, 186.7, kg, 06/21/23 9:41:00 EDT, Weight Dosing meloxicam, 15 mg = 1 tab(s), Oral, Daily, X 30 day(s), # 30 tab(s), Refills(s) 0, Pharmacy: [facility], 176.5, cm, 06/21/23 9:41:00 EDT, Height/Length Dosing, 186.7, kg, 06/21/23 9:41:00 EDT, Weight Dosing meloxicam, 15 mg = 1 tab(s), Oral, Daily, # 30 tab(s), Refills(s) 1, Pharmacy: [facility], 176.5, cm, 05/22/23 9:51:00 EDT, Height/Length Dosing, 190.2, kg, 05/22/23 9:51:00 EDT, Weight Dosing 2. Left sciatic nerve pain (M54.32: Sciatica, left side) pt continues to have left sciatic nerve pain but it is improved Ordered: meloxicam, 15 mg = 1 tab(s), Oral, Daily, X 30 day(s), # 30 tab(s), Refills(s) 1, Pharmacy: [facility], 176.5, cm, 06/21/23 9:41:00 EDT, Height/Length Dosing, 186.7, kg, 06/21/23 9:41:00 EDT, Weight Dosing meloxicam, 15 mg = 1 tab(s), Oral, Daily, X 30 day(s), # 30 tab(s), Refills(s) 0, Pharmacy: [facility], 176.5, cm, 06/21/23 9:41:00 EDT, Height/Length Dosing, 186.7, kg, 06/21/23 9:41:00 EDT, Weight Dosing meloxicam, 15 mg = 1 tab(s), Oral, Daily, # 30 tab(s), Refills(s) 1, Pharmacy: [facility], 176.5, cm, 05/22/23 9:51:00 EDT, Height/Length Dosing, 190.2, kg, 05/22/23 9:51:00 EDT, Weight Dosing phentermine, 37.5 mg = 1 tab(s), Oral, Daily, X 30 day(s), # 30 tab(s), Refills(s) 0, Pharmacy: [facility], 176.5, cm, 05/22/23 9:51:00 EDT, Height/Length Dosing, 190.2, kg, 05/22/23 9:51:00 EDT, Weight Dosing [facility] [place] [place] External Ambulatory Referral 3. Lower extremity numbness (R20.0: Anesthesia of skin) EMG order sent to [facility] in [place] Ordered: [facility] [place] [place] External Ambulatory Referral 4. Morbid obesity due to excess calories (E66.01: Morbid (severe) obesity due to excess calories) BMI education complete Ordered: meloxicam, 15 mg = 1 tab(s), Oral, Daily, X 30 day(s), # 30 tab(s), Refills(s) 1, Pharmacy: [facility], 176.5, cm, 06/21/23 9:41:00 EDT, Height/Length Dosing, 186.7, kg, 06/21/23 9:41:00 EDT, Weight Dosing meloxicam, 15 mg = 1 tab(s), Oral, Daily, X 30 day(s), # 30 tab(s), Refills(s) 0, Pharmacy: [facility], 176.5, cm, 06/21/23 9:41:00 EDT, Height/Length Dosing, 186.7, kg, 06/21/23 9:41:00 EDT, Weight Dosing meloxicam, 15 mg = 1 tab(s), Oral, Daily, # 30 tab(s), Refills(s) 1, Pharmacy: [facility], 176.5, cm, 05/22/23 9:51:00 EDT, Height/Length Dosing, 190.2, kg, 05/22/23 9:51:00 EDT, Weight Dosing phentermine, 37.5 mg = 1 tab(s), Oral, Daily, X 30 day(s), # 30 tab(s), Refills(s) 0, Pharmacy: [facility], 176.5, cm, 05/22/23 9:51:00 EDT, Height/Length Dosing, 190.2, kg, 05/22/23 9:51:00 EDT, Weight Dosing 5. BMI 50.0-59.9, adult (Z68.43: Body mass index [BMI] 50.0-59.9, adult) BMI education complete 6. Non-smoker (Z78.9: Other specified health status) continue not smoking Ordered: meloxicam, 15 mg = 1 tab(s), Oral, Daily, X 30 day(s), # 30 tab(s), Refills(s) 1, Pharmacy: [facility], 176.5, cm, 06/21/23 9:41:00 EDT, Height/Length Dosing, 186.7, kg, 06/21/23 9:41:00 EDT, Weight Dosing meloxicam, 15 mg = 1 tab(s), Or (more content not included)... [facility] Comment on above: Result Comment: Elec [...] 9:20 AM EDT With: Alexia Muhammad Where: [facility] Ambulatory Visit Summary RAKESH PIÑA DOB:1975 Visit Date:05/22/2023 Ambulatory Visit Instructions Your Diagnosis [...] 9:20 AM EDT With: Alexia Muhammad Where: [facility] [place] Normal [facility] Office/Clini c Noteon 05-22-2023 Family Medicine Office/Clinic [...] his legs at night. 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 all questions answered. RTC 4 weeks Ordered: meloxicam, 15 mg = 1 tab(s), Oral, Daily, # 30 tab(s), Refills(s) 1, Pharmacy: [facility], 176.5, cm, 05/22/23 9:51:00 EDT, Height/Length Dosing, 190.2, kg, 05/22/23 9:51:00 EDT, Weight Dosing 2. Left sciatic nerve pain (M54.32: Sciatica, left side) will order antiinflammatory. steroid did not give him any relief Ordered: meloxicam, 15 mg = 1 tab(s), Oral, Daily, # 30 tab(s), Refills(s) 1, Pharmacy: [facility], 176.5, cm, 05/22/23 9:51:00 EDT, Height/Length Dosing, 190.2, kg, 05/22/23 9:51:00 EDT, Weight Dosing phentermine, 37.5 mg = 1 tab(s), Oral, Daily, X 30 day(s), # 30 tab(s), Refills(s) 0 phentermine, 37.5 mg = 1 tab(s), Oral, Daily, X 30 day(s), # 30 tab(s), Refills(s) 0, Pharmacy: [facility], 176.5, cm, 05/22/23 9:51:00 EDT, Height/Length Dosing, 190.2, kg, 05/22/23 9:51:00 EDT, Weight Dosing 3. BMI 60.0-69.9, adult (Z68.44: Body mass index [BMI] 60.0-69.9, adult) BMI education complete Ordered: meloxicam, 15 mg = 1 tab(s), Oral, Daily, # 30 tab(s), Refills(s) 1, Pharmacy: [facility], 176.5, cm, 05/22/23 9:51:00 EDT, Height/Length Dosing, 190.2, kg, 05/22/23 9:51:00 EDT, Weight Dosing 4. Morbid obesity due to excess calories (E66.01: Morbid (severe) obesity due to excess calories) see above Ordered: meloxicam, 15 mg = 1 tab(s), Oral, Daily, # 30 tab(s), Refills(s) 1, Pharmacy: [facility], 176.5, cm, 05/22/23 9:51:00 EDT, Height/Length Dosing, 190.2, kg, 05/22/23 9:51:00 EDT, Weight Dosing phentermine, 37.5 mg = 1 tab(s), Oral, Daily, X 30 day(s), # 30 tab(s), Refills(s) 0 phentermine, 37.5 mg = 1 tab(s), Oral, Daily, X 30 day(s), # 30 tab(s), Refills(s) 0, Pharmacy: [facility], 176.5, cm, 05/22/23 9:51:00 EDT, Height/Length Dosing, 190.2, kg, 05/22/23 9:51:00 EDT, Weight Dosing 5. Non-smoker (Z78.9: Other specified health status) continue not smoking Ordered: meloxicam, 15 mg = 1 tab(s), Oral, Daily, # 30 tab(s), Refills(s) 1, Pharmacy: [facility], 176.5, cm, 05/22/23 9:51:00 EDT, Height/Length Dosing, 190.2, kg, 05/22/23 9:51:00 EDT, Weight Dosing phentermine, 37.5 mg = 1 tab(s), Oral, Daily, X 30 day(s), # 30 tab(s), Refills(s) 0 phentermine, 37.5 mg = 1 tab(s), Oral, Daily, X 30 day(s), # 30 tab(s), Refills(s) 0, Pharmacy: [facility], 176.5, cm, 05/22/23 9:51:00 EDT, Height/Length [...] Daily Allerg (more content not included)... Normal [facility] Comment on above: Result Comment: Elec tronically Signed By: Alexia Muhammad\.br\Date and Time Signed: 05/22/23 10:34 EDT [place] 04-26-2023 Consent [id number] .00CD:127 Normal [facility] Family Medicine Office/Clini c Noteon 04-24-2023 [...] kenalog 60mg IM in office today. Normal [facility] Comment on above: Result Comment: Elec [...] Alexia Muhammad Where: [facility] [place] Normal [facility] Auto Diffon 03-19-2023 Basophils/100 WBC (Bld) 0.3 % Normal 0.0-2.0 [facility] Comment on above: Order Comment: Order Added by Discern Expert. Performed By: #### 2 [id number], [id number], 1202271, [id number], [id number] ####[facility] [id number] [place] [address] Basophils/Leukocytes Auto (Bld) [Pure # fraction] 0.0 E9/L Normal 0.0-0.2 [facility] Comment on above: Order Comment: Order Added by Discern Expert. Performed By: #### 2 230099, 4139392, 6954637, [id number], [id number] ####[address] [place] [address] Eosinophils/100 WBC (Bld) 2.1 % Normal 0.0-8.0 [facility] Comment on above: Order Comment: Order Added by Discern Expert. Performed By: #### 2 246456, 6104138, 2132112, 1055099, [id number] ####[address] [address] Eosinophils/Leukocytes Auto (Bld) [Pure # fraction] 0.2 E9/L Normal 0.0-0.5 [facility] Comment on above: Order Comment: Order Added by Discern Expert. Performed By: #### 2 524533, 1313968, 5472254, 4113063, [id number] ####[address] [address] Lymphocytes/100 WBC (Bld) 20.5 % Normal 14.0-50.0 [facility] Comment on above: Order Comment: Order Added by Nellie Expert. Performed By: #### 2 833828, 0123719, 0977283, 7313181, [id number] ####[address] [address] Lymphocytes/Leukocytes Auto (Bld) [Pure # fraction] 1.6 E9/L Normal 1.0-4.0 [facility] Comment on above: Order Comment: Order Added by Discern Expert. Performed By: #### 2 392489, 4214193, 8093124, 2811958, [id number] ####[address] [address] Monocytes/100 WBC (Bld) 8.7 % Normal 4.0-14.0 [facility] Comment on above: Order Comment: Order Added by Discern Expert. Performed By: #### 2 689752, 1619143, 9938531, 2777380, [id number] ####[address] [place] [address] Monocytes/Leukocytes Auto (Bld) [Pure # fraction] 0.7 E9/L Normal 0.2-1.0 [facility] Comment on above: Order Comment: Order Added by Discern Expert. Performed By: #### 2 969203, 2816358, 4487701, 7892746, [id number] ####[address] [place] [address] Neutrophils/100 WBC (Bld) 68.4 % Normal 36.0-75.0 [facility] Comment on above: Order Comment: Order Added by Nellie Expert. Performed By: #### 2 863166, 9362449, 5432531, 0278568, [id number] ####[address] [address] Neutrophils/Leukocytes Auto (Bld) [Pure # fraction] 5.3 E9/L Normal 2.0-7.5 [facility] Comment on above: Order Comment: Order Added by Discern Expert. Performed By: #### 2 184331, 8900009, 3481287, 9284606, [id number] ####[address] [address] CBC w/ Auto Diffon 3 Erythrocyte distribution width (RBC) [Ratio] 16.3 % High 10.9-14.2 [facility] Comment on above: Performed By: #### 2 168344, 6443710, 8661454, 8975288, [id number] ####[address] [address] Hematocrit (Bld) [Volume fraction] 43.7 % Normal 37.7-49.0 [facility] Comment on above: Performed By: #### 2 [id number], [id number], [id number] ####[id number] [place] [address] Hemoglobin (Bld) [Mass/Vol] 14.4 g/dL Normal 13.5-17.5 [facility] Comment on above: Performed By: #### 2 [id number], [id number], [id number], [id number], [id number] ####[address] [address] MCH (RBC) [Entitic mass] 27.9 pg Normal 27.0-34.0 [facility] Comment on above: Performed By: #### 2 [id number], [id number], [id number], [id number], [id number] ####[address] [address] MCHC (RBC) [Mass/Vol] 33.0 g/dL Normal 31.4-36.0 [facility] Comment on above: Performed By: #### 2 [id number], 8355591, 8258640, [id number], [id number] ####[address] [address] MCV (RBC) [Entitic vol] 84.8 fL Normal 80.0-100.0 [facility] Comment on above: Performed By: #### 2 539584, 8507108, 2505909, 9975440, [id number] ####[address] [address] Platelet mean volume (Bld) [Entitic vol] 7.7 fL Normal 6.4-10.8 [facility] Comment on above: Performed By: #### 2 696693, 5667921, 0423031, 4892304, [id number] ####[address] [address] Platelets (Bld) [#/Vol] 278.0 E9/L Normal 150.0-500.0 [facility] Comment on above: Performed By: #### 2 865490, 4008090, 9465906, 7642848, [id number] ####[address] [address] [place] [address] RBC (Bld) [#/Vol] 5.2 E12/L Normal 4.3-5.9 [facility] Comment on above: Performed By: #### 2 403256, 4097022, 2993332, 3035405, [id number] ####[facility] [address] [place] [address] WBC corrected for nucl RBC Auto (Bld) [#/Vol] 7.7 E9/L Normal 4.0-11.0 [facility] Comment on above: Performed By: #### 2 853829, 3606510, 7532825, 8761343, [id number] ####[facility] [address] [place] [address] CHEMISTRYOrdered By: SYSTEM SYSTEM on 03-19-2023 Cholesterol [...] day(s), # 21 tab(s), Refills(s) 0, Pharmacy: [facility]/pharmacy #[id number], 176.5, cm, 03/19/23 13:15:00 EDT, Height/Length Dosing phentermine, 37.5 mg = 1 tab(s), Oral, Daily, # 30 tab(s), Refills(s) 0, Pharmacy: [facility]/pharmacy #[id number], 176.5, cm, 03/19/23 [...] day(s), # 21 tab(s), Refills(s) 0, [id number] 176.5, cm, 03/19/23 13:15:00 EDT, Height/Length Dosing phentermine, 37.5 mg = 1 tab(s), Oral, Daily, # 30 tab(s), Refills(s) 0, [id number] 176.5, cm, 03/19/23 13:15:00 EDT, Height/Length Dosing CBC w/ Auto Diff Cologuard Screening Test Lipid Panel PSA Screen, Total Thyroid Stimulating Hormone 3. Non-smoker (Z78.9: Other specified health status) continue not smoking Ordered: methylPREDNISolone, = 1 packet(s), Oral, As Directed, as directed on package labeling, X 6 day(s), # 21 tab(s), Refills(s) 0, Pharmacy: [facility]/pharmacy #[id number], 176.5, cm, 03/19/23 13:15:00 EDT, Height/Length Dosing phentermine, 37.5 mg = 1 tab(s), Oral, Daily, # 30 tab(s), Refills(s) 0, Pharmacy: [facility]/pharmacy #[id number], 176.5, cm, 03/19/23 13:15:00 EDT, Height/Length Dosing CBC w/ Auto Diff Cologuard Screening Test Lipid Panel PSA Screen, Total Thyroid Stimulating Hormone 4. Left sciatic nerve pain (M54.32: Sciatica, left side) medrol dose pack sent Ordered: methylPREDNISolone, = 1 packet(s), Oral, As Directed, as directed on package labeling, X 6 day(s), # 21 tab(s), Refills(s) 0, Pharmacy: [facility]/pharmacy #[id number], 176.5, cm, 03/19/23 13:15:00 EDT, Height/Length Dosing phentermine, 37.5 mg = 1 tab(s), Oral, Daily, # 30 tab(s), Refills(s) 0, Pharmacy: [facility]/pharmacy #[id number], 176.5, cm, 03/19/23 13:15:00 EDT, Height/Length Dosing Colon cancer screening (Z12.11: (more content not included)... Normal [facility] Comment on above: Result Comment: Elec tronically Signed By: Torsten MONSIVAIS, Alexia Sewell\.br\Date and Time Signed: 03/19/23 14:00 EDT Formson 03-19-2023 Forms [id number] .00CD:127 Normal [facility] HEMATOLOGYOrdered By: SYSTEM SYSTEM on 03-19-2023 [...] 7.7 E9/L Normal 4.0 - 11.0 E9/L FT HemeAutoSS Lipid Panelon 03-19-2023 Cholesterol [Mass/Vol] 171 mg/dL Normal 120-200 [facility] Comment on above: Performed By: #### 2 928704, 5292521, 2997694, 0508596, [id number] ####[facility] [address] [place] [address] Cholesterol in HDL [Mass/Vol] 39 mg/dL Invalid Interpretation Code [facility] Comment on above: Result Comment: HDL > or equal to 60 mg/dL: Low cardiovascular risk HDL < 40 mg/dL : High cardiovascular risk Performed By: #### 2 934057, 8660665, 9470848, 1288234, [id number] ####[facility] [address] [place] [address] Cholesterol in LDL [Mass/Vol] 112 mg/dL Normal <=129 [facility] Comment on above: Performed By: #### 2 820755, 1577968, 9726927, 0004019, [id number] ####[facility] [address] [place] [address] Cholesterol in VLDL [Mass/Vol] 19 mg/dL Normal 7-40 [facility] Comment on above: Performed By: #### 2 016117, 7978914, 1797044, 1966589, 19926456 ####[facility] [address] [place] [address] Triglyceride [Mass/Vol] 94 mg/dL Normal <=149 [facility] Comment on above: Performed By: #### 2 503799, 4538271, 1893285, 1757213, [id number] ####[facility] [address] [place] [address] PSA Screen, Totalon 03-19-20 23 Prostate specific Ag [Mass/Vol] 0.9 ng/mL Normal 0.1-3.5 [facility] Comment on above: Result Comment: The concentration of PSA determined by different manufacturers can vary due to differences in assay methods and reagent specificity. Values obtained from different assay methods cannot be used interchangeably. The methodology used for this result was chemiluminescence using [employer]'s Access Hybritech PSA reagent. Performed By: #### 2 531386, 6111579, 0314326, 1280622, [id number] ####[facility] [address] [place] [address] TSHon 03-19-2023 TSH Qn 2.03 m[IU]/L Normal 0.34-5.60 [facility] Comment on above: Performed By: #### 2 358757, 4034282, 8833219, 6181117, [id number] ####[facility] [address] [place] [address] Covid-19 PCR ([facility])on 07-11 SARS-CoV-2 (COVID-19) RNA BETHANY+probe Ql (Unsp spec) Not detected Normal NOT DETECTED [facility] Comment on above: Result Comment: When [...] for this test is supported by the [place] [employer] and Human Service's declaration that [...] used). Performed By: #### C VDTBH #### [facility] [address] [place] [address] Dr. Mynor Yun GROUP A STREP CULTUREon 07-11 S. pyogenes Ag Ql (Unsp spec) Culture Observations: NEGATIVE FOR GROUP A STREPTOCOCCUS. Normal [facility] Comment on above: Performed By: #### G RASTCX #### [facility] [address] [place] [address] Dr. Mynor Yun INFLUENZA A AND B AGon 07-28 INFLUANEGH SEE BELOW Normal [facility] Comment on above: Result Comment: Nega tive for Flu A protein angiten. Infection due to Flu A cannot be ruled out. Flu A angiten in the sample may be below the detection limit of the test. Performed By: #### I NFLUAB #### [facility] [address] [place] [address] Dr. Mynor Yun [facility] SEE BELOW Normal [facility] Comment on above: Result Comment: Nega tive for Flu B protein antigen. Infection due to Flu B cannot be ruled out. Flu B antigen in the sample may be below the detection limit of the test. Performed By: #### I NFLUAB #### [facility] [address] [place] [address] Dr. Mynor Yun INFLUENZA A AG Negative Normal NEGATIVE SEE COMMENT [facility] Comment on above: Performed By: #### I NFLUAB #### [facility] [address] [place] [address] Dr. Mynor Yun INFLUENZA B AG Negative Normal NEGATIVE SEE COMMENT [facility] Comment on above: Performed By: #### I NFLUAB #### [facility] [address] [place] [address] Dr. Mynor Yun INTERNAL CONTROLS Within Normal Limits Normal Wi thin Normal Limits [facility] Comment on above: Performed By: #### I NFLUAB #### [facility] [address] [place] [address] Dr. Mynor Yun STREPT SCREENon 07-28-2022 STREP SCREEN A Negative Normal NEGATIVE [facility] Comment on above: Performed By: #### S SCRN #### [facility] [address] [place] [address] Dr. Mynor Yun XR SINUSES 3 VIEWS [...] KELLIE SMALLS Date: 2022-02-01 09:[address] [facility] HAND LEFT 3 Son 12-29-2021 HAND LEFT 3 S [facility] [address] [place], [place] [id number] Patient Name: RAKESH PIÑA : 1975 Sex: M Age: Race: White Pt. Location: Patient Status: D Ordered Date: 12/29/2021 11:45:00 AM Completed Date: 12/29/2021 11:50 AM Requesting Provider: LORI DALLAS Attending Provider: LORI DALLAS Report Copy To: Signs & Symptoms: M79.642 Pain in left hand I10 History: Comments: Evaluate Exam: HAND LEFT 3 [facility] HAND LEFT 3 [facility] 12/29/2021 11:50 AM CLINICAL INDICATIONS: M79.642 [...] alignment. Electronically signed: Heather Montana. Transcribed by: [email or web address], User Resident: Electronically Signed by: HEATHER MONTANA @ 12/31/2021 08:55 AM Normal [facility] Comment on above: Order Comment: Evalu ate HAND LEFT 3 Son 12-08-2021 HAND LEFT 3 [facility] Department of Radiology [address] [place] [address] Patient Name: RAKESH PIÑA : 1975 Sex: M Age: Race: White Pt. Location: Patient Status: D Ordered Date: 12/08/2021 1:25:00 PM Completed Date: 12/08/2021 01:29 PM Requesting Provider: LORI DALLAS Attending Provider: LORI DALLAS Report Copy To: Signs & Symptoms: M79.642 Pain in left hand I10 History: Rekha Comments: Evaluate Exam: HAND LEFT 3 [facility] HAND LEFT 3 S 12/08/2021 1:29 [...] bridging. Electronically signed: Ronaldo Major. Transcribed by: [email or web address], User Resident: Electronically Signed by: RONALDO MAJOR @ 12/09/2021 04:04 PM Normal [facility] Comment on above: Order Comment: Evalu ate HAND LEFT 3 [facility] 11-14-2021 HAND LEFT 3 [facility] Department of Radiology [address] [place] [id number] Patient Name: RAKESH PIÑA : 1975 [...] fracture. Electronically signed: Ramirez Smith. Transcribed by: [email or web address], User Resident: Electronically Signed by: RAMIREZ SMITH @ 11/14/2021 08:02 PM Normal [facility] Comment on above: Order Comment: Views (X-RAY, HAND): PA, Lateral, Oblique TESTOSTERONE, TOTALon 2021 Testosterone [Mass/Vol] 411 ng/dL Normal 264-916 [facility] Comment on above: Result Comment: Adul t male reference interval is based on a population of healthy nonobese males (BMI <30) between 19 and 39 years old. Iron et.al. JCEM 2017,102;5191-6030. PMID: [id number]. Performed By: #### T ESTTOT #### [facility] [address] [place] [address] Dr. Mynor Yun CBC AUTO DIFFon 11-11-2021 BASO # 0.0 103/ul Normal 0.0-0.1 [facility] Comment on above: Performed By: #### C BC #### [facility] [address] [place] [address] Dr. Mynor Yun Basophils/100 WBC (Bld) 0.2 % Normal 0.2-2.0 [facility] Comment on above: Performed By: #### C BC #### [facility] [address] [place] [address] Dr. Mynor Yun EO # 0.1 103/ul Normal 0.0-0.7 [facility] Comment on above: Performed By: #### C BC #### [facility] [address] [place] [address] Dr. Mynor Yun Eosinophils/100 WBC (Bld) 1.2 % Normal 0.9-7.0 [facility] Comment on above: Performed By: #### C BC #### [facility] [address] [place] [address] Dr. Mynor Yun Erythrocyte distribution width (RBC) [Ratio] 14.3 % Normal 11.0-15.0 [facility] Comment on above: Performed By: #### C BC #### [facility] [address] [place] [address] Dr. Mynor Yun Hematocrit (Bld) [Volume fraction] 47.3 % Normal 42.0-54.0 [facility] Comment on above: Performed By: #### C BC #### [facility] [address] [place] [address] Dr. Mynor Yun Hemoglobin (Bld) [Mass/Vol] 15.2 g/dL Normal 14.0-18.0 [facility] Comment on above: Performed By: #### C BC #### [facility] [address] [place] [address] Dr. Mynor Yun IG # 0.03 10e3/ul Normal 0.00-0.03 [facility] Comment on above: Performed By: #### C BC #### [facility] [address] [place] [address] Dr. Mynor Yun IG % 0.3 % Normal 0.0-0.5 [facility] Comment on above: Performed By: #### C BC #### [facility] [address] [place] [address] Dr. Mynor Yun LYMPH # 1.6 103/ul Normal 1.2-3.[address] [facility] Comment on above: Performed By: #### C BC #### [facility] [address] [place] [address] Dr. Mynor Yun Lymphocytes/100 WBC (Bld) 18.4 % Critically low 20.5-60.0 [facility] Comment on above: Performed By: #### C BC #### [facility] [address] [place] [address] Dr. Mynor Yun MANUAL DIFF REQ NO Normal [facility] Comment on above: Performed By: #### C BC #### [facility] [address] [place] [address] Dr. Mynor Yun MCH (RBC) [Entitic mass] 28.8 pg Normal 25.9-34.[address] [facility] Comment on above: Performed By: #### C BC #### [facility] [address] [place] [address] Dr. Mynor Yun MCHC (RBC) [Mass/Vol] 32.1 g/dL Normal 29.9-35.[address] [facility] Comment on above: Performed By: #### C BC #### [facility] [address] [id number] Mynor Yun MCV (RBC) [Entitic vol] 89.8 fL Normal 80.0-94.0 [facility] Comment on above: Performed By: #### C BC #### [facility] [address] [address] [address] Mynor Yun MONO # 0.7 103/ul Normal 0.3-0.[address] [facility] Comment on above: Performed By: #### C BC #### [facility] [address] [address] [address] Mynor Yun Monocytes/100 WBC (Bld) 8.4 % Normal 1.7-12.0 [facility] Comment on above: Performed By: #### C BC #### [facility] [address] [place] [address] Dr. Mynor Yun NEUT # 6.2 103/ul Normal 1.4-6.5 [facility] Comment on above: Performed By: #### C BC #### [facility] [address] [place] [address] Dr. Mynor Yun Neutrophils/100 WBC (Bld) 71.5 % Normal 43.0-75.0 [facility] Comment on above: Performed By: #### C BC #### [facility] [address] [place] [address] Dr. Mynor Yun Platelet mean volume (Bld) [Entitic vol] 8.7 fL Critically low 9.5-13.5 [facility] Comment on above: Performed By: #### C BC #### [facility] [address] [place] [address] Dr. Mynor Yun PLT 263 103/ul Normal 150-[address] [facility] Comment on above: Performed By: #### C BC #### [facility] [address] [place] [address] Dr. Mynor Yun RBC 5.27 106/ul Normal 4.70-6.[address] [facility] Comment on above: Performed By: #### C BC #### [facility] [address] [address] [address] Mynor Yun WBC 8.7 103/ul Normal 4.0-11.0 [facility] Comment on above: Performed By: #### C BC #### [facility] [address] [address] [address] Mynor Yun LIPID PROFILEon 11-11-2021 CHOL-HDL RATIO NORM SEE BELOW Normal [facility] Comment on above: Result Comment: 3.3 - 4.4 LOW RISK 4.4 - 7.1 AVERAGE RISK 7.1 - 11.0 MODERATE RISK >11.0 HIGH RISK Performed By: #### S SCRN #### [facility] [address] [address] [address] Mynor Yun Cholesterol [Mass/Vol] 129 mg/dL Normal <=200 [facility] Comment on above: Performed By: #### S SCRN #### [facility] [address] [address] [address] Mynor Yun Cholesterol in HDL [Mass/Vol] 34 mg/dL Normal [facility] Comment on above: Performed By: #### S SCRN #### [facility] [address] [address] [address] Mynor Yun Cholesterol in LDL [Mass/Vol] 82.2 mg/dL Normal [facility] Comment on above: Performed By: #### S SCRN #### [facility] [address] [address] [address] Mynor Yun Cholesterol.total/Chol esterol in HDL [Mass ratio] 3.8 {ratio} Normal [facility] Comment on above: Performed By: #### S SCRN #### [facility] [address] [address] [address] Mynor Yun HDL NORMAL > or = 60 mg/dl - LO W CARDIOVASCULAR RISK <40 mg/dl - HIGH CARDIOVASCULAR RISK Normal [facility] Comment on above: Performed By: #### S SCRN #### [facility] [address] [address] [address] Mynor Yun LDL CALC NORMAL SEE BELOW Normal [facility] Comment on above: Result Comment: <100 mg/dl OPTIMAL 100 - 129 mg/dl NEAR OR ABOVE OPTIMAL 130 - 159 mg/dl BORDERLINE HIGH 160 - 189 mg/dl HIGH >190 mg/dl VERY HIGH Performed By: #### S SCRN #### [facility] [address] [place] [address] Dr. Mynor Yun Triglyceride [Mass/Vol] 64 mg/dL Normal <=150 [facility] Comment on above: Performed By: #### S SCRN #### [facility] [address] [address] [address] Mynor Yun VLDL CALC 12.8 mg/dL Normal [facility] Comment on above: Performed By: #### S SCRN #### [facility] [address] [place] [address] Dr. Mynor Yun PROF 14(COMP METB)on 022 Albumin [Mass/Vol] 3.8 g/dL Normal 3.5-5.0 [facility] Comment on above: Performed By: #### T SH, LIPID, CMP #### [facility] [address] [place] [address] Dr. Mynor Yun Albumin/Globulin [Mass ratio] 0.9 {ratio} Normal [facility] Comment on above: Performed By: #### T SH, LIPID, CMP #### [facility] [address] [place] [address] Dr. Mynor Yun ALP [Catalytic activity/Vol] 76 U/L Normal 38-126 [facility] Comment on above: Performed By: #### T SH, LIPID, CMP #### [facility] [address] [place] [address] Dr. Mynor Yun ALT [Catalytic activity/Vol] 49 U/L Normal 21-72 [facility] Comment on above: Performed By: #### T SH, LIPID, CMP #### [facility] [address] [place] [address] Dr. Mynor Yun Anion gap [Moles/Vol] 11.2 mmol/L Normal [facility] Comment on above: Performed By: #### T SH, LIPID, CMP #### [facility] [address] [place] [address] Dr. Mynor Yun AST [Catalytic activity/Vol] 31 U/L Normal 17-[address] [facility] Comment on above: Performed By: #### T SH, LIPID, CMP #### [facility] [address] [address] [address] Mynor Yun Bilirubin [Mass/Vol] 0.5 mg/dL Normal 0.2-1.[address] [facility] Comment on above: Performed By: #### T SH, LIPID, CMP #### [facility] [address] [address] [address] Mynor Yun Calcium [Mass/Vol] 9.0 mg/dL Normal 8.4-10.2 [facility] Comment on above: Performed By: #### T SH, LIPID, CMP #### [facility] [address] [place] [address] Dr. Mynor Yun Chloride [Moles/Vol] 104 mmol/L Normal 98-[address] [facility] Comment on above: Performed By: #### T SH, LIPID, CMP #### [facility] [address] [place] [address] Dr. Mynor Yun CO2 [Moles/Vol] 30.6 mmol/L Critically high 22.0-30.[address] [facility] Comment on above: Performed By: #### T SH, LIPID, CMP #### [facility] [address] [place] [address] Dr. Mynor Yun Creatinine [Mass/Vol] 0.95 mg/dL Normal 0.66-1.25 [facility] Comment on above: Performed By: #### T SH, LIPID, CMP #### [facility] [address] [place] [address] Dr. Mynor Yun EGFR-AF NEPALESE >60 Normal >=60 [facility] Comment on above: Performed By: #### T SH, LIPID, CMP #### [facility] [address] [place] [address] Dr. Mynor Yun EGFR-NON AF NEPALESE >60 Normal >=[address] [facility] Comment on above: Performed By: #### T SH, LIPID, CMP #### [facility] [address] [address] [address] Mynor Yun Globulin (S) [Mass/Vol] 4.3 g/dL Normal [facility] Comment on above: Performed By: #### T SH, LIPID, CMP #### [facility] [address] [address] [address] Mynor Yun Glucose [Mass/Vol] 104 mg/dL Normal 74-106 [facility] Comment on above: Performed By: #### T SH, LIPID, CMP #### [facility] [address] [place] [address] Dr. Mynor Yun Potassium [Moles/Vol] 3.8 mmol/L Normal 3.4-5.0 [facility] Comment on above: Performed By: #### T SAMARIA, LIPID, CMP #### [facility] [address] [place] [address] Dr. Mynor Yun Protein [Mass/Vol] 8.1 g/dL Normal 6.1-8.2 [facility] Comment on above: Performed By: #### T SAMARIA, LIPID, CMP #### [facility] [address] [place] [address] Dr. Mynor Yun Sodium [Moles/Vol] 142 mmol/L Normal 137-145 [facility] Comment on above: Performed By: #### T SAMARIA, LIPID, CMP #### [facility] [address] [place] [address] Dr. Mynor Yun Urea nitrogen [Mass/Vol] 11.0 mg/dL Normal 9.0-20.0 [facility] Comment on above: Performed By: #### T SAMARIA, LIPID, CMP #### [facility] [address] [place] [address] Dr. Mynor Yun Urea nitrogen/Creatinine [Mass ratio] 11.6 mg/mg Normal [facility] Comment on above: Performed By: #### T SH, LIPID, CMP #### [facility] [address] [place] [address] Dr. Mynor Yun TSHon 11-11-2021 TSH 1.612 uIU/mL Normal 0.470-4.680 [facility] Comment on above: Performed By: #### T SH, LIPID, CMP #### [facility] [address] [address] [address] Mynor Yun TSH RANGE SEE BELOW Normal [facility] Comment on above: Result Comment: <0.3 4 UIU/ml HYPERTHYROID 0.34-5.60 UIU/ml EUTHYROID >5.60 UIU/ml HYPOTHYROID Performed By: #### T SH, LIPID, CMP #### [facility] [address] [address] [address] Mynor Yun Encounters Encounter Date Encounter Type Care Provider Facility Start: 01-23-2024 End: 01-26-2024 ambulatory ALEXIA TORSTEN [facility] Start: 01-16-2024 End: 01-16-2024 ambulatory Alexia L Torsten Facility:[facility] Start: 01-14-2024 End: 01-14-2024 ambulatory Alexia L Torsten Facility:[facility] Start: 01-09-2024 End: 01-09-2024 ambulatory Alexia L Torsten Facility:[facility] Start: 12-03-2023 End: 12-04-2023 [facility] Start: 11-05-2023 End: 11-06-2023 ambulatory And[facility]us Geo [facility]itis [facility] Start: 08-23-2023 End: 08-23-2023 ambulatory Alexia L Torsten Facility:[facility] [place] Start: 07-26-2023 End: 07-26-2023 ambulatory Alexia L Torsten Facility:[facility] Start: 06-21-2023 End: 06-21-2023 ambulatory Alexia L Torsten Facility:[facility] Start: 05-22-2023 End: 05-22-2023 ambulatory Alexia L Torsten Facility:[facility] Start: 04-24-2023 End: 04-24-2023 ambulatory Alexia L Torsten Facility:[facility] Start: 03-19-2023 End: 03-19-2023 ambulatory Alexia L Torsten Facility:[facility] [place] [place] Start: 03-19-2023 End: 03-19-2023 Lab Drop off Alexia L Torsten [facility] [place] Start: 03-19-2023 End: 03-19-2023 ambulatory Alexia L Torsten Facility:[facility] Start: 03-15-2023 ambulatory Alexia Torsten Facility:[facility] Start: 07-28-2022 End: 07-28-[address] LULU BLANK Facility:[facility] Start: 02-01-2022 End: 02-02-[address] LULU BLANK Facility:[facility] Start: 11-15-2021 Encounter for genera l adult medical examination without abnormal findings DR LULU BLANK [facility] [place] Start: 11-11-2021 End: 11-12-[address] LULU BLANK Facility:[facility] Start: 11-11-2021 End: 11-12-2021 Encounter for general adult medical examination without abnormal findings DR LULU BLANK Facility:[facility] Start: 11-10-2021 End: 11-11-2021 ambulatory MAZIN CANO Facility:[facility] Procedures Date Procedure Procedure Detail Performing Clinician Gastric sleeve Alexia Torsten Comment on above: 2009 Immunizations Immunization Date Immunization Notes Care Provider Chandni cardoza 06-07-2022 influenza virus vacc ine, unspecified formulation Alexia Torsten [facility] 11-12-2020 SARS-CoV-2 (COVID-19 ) mRNA BNT-162b2 vax Alexia Torsten [facility] 10-22-2020 SARS-CoV-2 (COVID-19 ) mRNA BNT-162b2 vax Alexia Torsten [facility] 03-10-2019 pneumococcal polysaccharide vaccine, 23 valent Alexia Torsten [facility] Payers Date Payer Category Payer Unknown 2022 Unknown [id number] 2019 Unknown [id number] 1977 Unknown [id number] 2.16.84 0.1.339354.3.579.2.593 1977 Unknown [id number] 2.16.84 0.1.437159.3.579.2.593 1977 Unknown [id number] 2.16.84 0.1.919268.3.579.2.593 1977 Unknown [id number] 2.16.84 0.1.255712.3.579.2.593 1977 Unknown [id number] 2.16. 840.1.280749.3.579.2.196 1977 Unknown [id number] 2.16. 840.1.932723.3.579.2.196 1977 Unknown [id number] 2.16.8 40.1.314039.3.579.2.182 1977 Unknown [id number] 2.16.8 40.1.173781.3.579.2.182 1977 Unknown [id number] 2.16.8 40.1.627204.3.579.2.727 1977 Unknown [id number] 2.16.8 40.1.578889.3.579.2.727 1977 Unknown [id number] 2.16.8 40.1.238728.3.579.2.727 1977 Unknown [id number] 2.16.8 40.1.773590.3.579.2.727 1977 Unknown [id number] 2.16.8 40.1.864480.3.579.2.727 1977 Unknown [id number] 2.16.8 40.1.650016.3.579.2.727 1977 Unknown [id number] 2.16.8 40.1.726650.3.579.2.727 1977 Unknown [id number] 2.16.8 40.1.018510.3.579.2.727 1977 Unknown [id number] 2.16.8 40.1.818888.3.579.2.727 1977 Unknown [id number] 2.16.8 40.1.876855.3.579.2.727 1977 Unknown [id number] 2.16.8 40.1.196501.3.579.2.727 1957 Medicare [id number] 1957 Unknown [id number] Social History Date Type Detail Facility Start: 03-19-2023 Tobacco smoking status Ex-smoker (fi nding) [facility] Tobacco smoking status Never Miguel Ángel [facility] Sex Assigned At Male [facility] [...] authenticated by: KELLIE SMALLS Date: 2021-11-10 13:16 [facility] [place] Evaluation + Plan note Note Date & Type [facility] Facility Evaluation + Plan note Future Appointments Appointment Date:04/23/2023 11:00:00 AM Scheduled Provider:Alexia Muhammad Location:[facility] Appointment Type: Open [facility] [...] section and content) DATE CREATED AUTHOR 01/28/2022 [facility] DATE CREATED AUTHOR AUTHOR'S ORGANIZ ATION 08/10/2022 [facility] DATE CREATED AUTHOR AUTHOR'S ORGANIZ ATION 01/17/2024 [facility] DATE CREATED AUTHOR AUTHOR'S ORGANIZ ATION 01/28/2024 [facility] DATE CREATED AUTHOR AUTHOR'S ORGANIZ ATION 02/21/2024 [facility] Patient Care team informatio n (unrecognized section and content) Personnel Name: Alexia Muhammad Address: Address: [address] [place] [address]- FOR RECORDS PERTAINING TO PATIENTS WHO ARE [...] BE BASED ON THE PRIMARY CLINICAL RECORDS. [facility]. provides no warranty or guarantee of the accuracy or completeness of information in this document.
[2024-02-25 07:38] VITALS: BP 145/95; PULSE 71; TEMP 36.2; O2SAT 95
[2024-02-25] MEDS: BUPIVACAINE HCL 0.25% PF 25 MG/10 ML VIAL INJ (08:32)
[2024-02-25] MEDS: 0.9 % SODIUM CHLORIDE 10 ML SYRINGE - SALINE FLUSH INJ (08:32)
[2024-02-25] MEDS: TRIAMCINOLONE ACETONIDE 40 MG/ML VIAL INJ (08:32)
[2024-02-25] MEDS: IOHEXOL 240 MG/ML - 10 ML VIAL INJ (08:33)
[2024-02-25] MEDS: LIDOCAINE HCL 2% PF 100 MG/5 ML VIAL INJ (08:36)
--- NOTE | 2024-02-25 08:36 | P.ON_ITS ---
Date of procedure: 02/25/24 Pre-op diagnosis: Pain due to lumbar stenosis with neurogenic claudication Post-op diagnosis: same as pre-op Procedure: Procedure: Left L4-5, L5-S1 transforaminal epidural steroid injection Medications: Bupivacaine 0.25% 2cc, lidocaine 2% 1cc, kenalog 80mg The patient was seen and examined in the preoperative holding area.? Informed consent was obtained and placed on the chart.? Patient was brought to the medical procedure unit and placed in the prone position where a timeout was completed verifying the correct patient, procedure site, position, and planned special equipment using sterile aseptic technique.? Under direct fluoroscopic visualization a 25-gauge Quincke tipped spinal needle was advanced to the designated neural foramen where contrast dye was injected to show adequate spread.? The needle was inserted at level left L4-5. There was no evidence of vascular or adverse uptake.? Epidural spread was appreciated.? The above- mentioned injectate was then placed in a 1.5 mL aliquot preceded by negative aspiration.? The needle was removed. The needle was inserted and the procedure repeated at level left L5-S1.? The surgery site was covered.? Patient was taken to the postprocedural recovery area and monitored for an appropriate length of time before found suitable for discharge in the accompaniment of a responsible adult. Anesthesia: Local Surgeon: Wilbert Buckner Pathology: none sent Condition: stable Disposition: no change
[2024-02-25 08:37] VITALS: BP 138/65; BP 147/85; PULSE 74; PULSE 80; O2SAT 92; O2SAT 96
== END 2024-02-25 08:40 | disposition home or self-care (01) ==
LOC: SURGOUT 07:28
PROVIDERS: PCP Nurse Practitioner; Visit Provider Anesthesiology
DX: M48.062 Spinal stenosis, lumbar region with neurogenic claudication (principal)
CPT/HCPCS: 64483; 64484; J0665; J3301; Q9966

== ENCOUNTER 2024-03-10 09:11 | Day surgery (SDC) | payer BC, MEDICARE, SELFPAY ==
--- OUTSIDE RECORDS SUMMARY | 2024-03-10 09:31 | XMS_ITS | CCD ---
Author Organization [facility] CliniSyme Care Team Providers Care Brushing Operator Name Role Phone MAZIN CANO Admitting Unavailable [...] BLANK, DR LULU Tejeda Primary Care Unavailable BLNAK, DR LULU Tejeda Consulting Unavailable BLANK, DR LULU Tejeda Primary Care Unavailable TRAM, FOZIA Consulting Unavailable TRAM, FOZIA Admitting Unavailable TRAM, FOZIA Attending Unavailable Torsten, Alexia Sewell Primary Care Physician [phone] TORSTEN, ALEXIA Referring Unavailable TORSTEN, ALEXIA Referring Unavailable Torsten, Alexia Sewell Attending Unavailable Torsten, Alexia Sewell Attending Unavailable Torsten, Alexia Sewell Attending Unavailable Torsten, Alexia Sewell Attending Unavailable Torsten, Alexia Sewell Attending Unavailable Torsten, Alexia Sewell Attending Unavailable Torsten, Alexia Sewell Attending Unavailable Torsten, Alexia Sewell Attending Unavailable Torsten, Alexia Sewell Admitting Unavailable Torsten, Alexia L Admitting Unavailable Torsten, Alexia L Attending Unavailable Torsten, Alexia Sewell Attending Unavailable Torsten, Alexia Sewell Attending Unavailable Giedraitis , Wilbert Guardado Attending Unavailable Gieditis , Wilbert Guardado Attending Unavailable Gieditis , Andcory Guardado Attending Unavailable Gieditis , Wilbert Guardado Attending Unavailable Medications Current Medications Medication Drug [...] Reference Range Facility Operative Reporton Operative Report [id number]#1. 00TIFF Normal [facility] Consultation Noteon 02-20-20 Consultation Note [id number]#1 .00TIFF Normal [facility] Consultation Noteon 02-06-20 Consultation Note [id number]#1 .00TIFF Normal [facility] RAD - MRI Reporton RAD - MRI Report [id number]#1 .00TIFF Normal [facility] MRI LUMBAR SPINE WO CONTRAST on 01-23-2024 [...] compromise. L2-L3: No disc bulge or protrusion. Agrt-aw-anoussgq facet arthropathy. No significant central canal stenosis. [...] Carson Linares DO 01/24/24 Final result Normal [facility] MRI THORACIC SPINE WO CONTRA STon 01-23-2024 [...] Carson Linares DO 01/24/24 Final result Normal [facility] Family Medicine Office/Clini c Noteon 01-17-2024 Family Medicine Office/Clinic Note HPI Staff Rose is a 48 year old male presenting for follow up on back pain VENANCIO 01/09/2024 Low back pain with left-sided sciatica was given ketorolac, MRI ordered pt tried to get it done Sunday but couldn't get done they didn't due to wasn't open MRI. MRI order was sent to [facility] in [place]. Pt states the burning sensation from sitting [...] not able to get MRI done at [facility]. is waiting for PA for MRI in [place]. they have an open MRI machine. needs [...] days., # 18 tab(s), Refills(s) 0, Pharmacy: [facility]/pharmacy #[id number], 187.5, cm, 01/16/24 13:46:00 EDT, Height/Length Dosing, 183, kg, 05/08/24 13:4... 3. Non-smoker (Z78.9: Other specified health status) continue not smoking Ordered: predniSONE, = 1 -, Oral, As Directed, Take 3 tabs by mouth daily x3 days, then 2 tabs daily x3 days, then 1 tab daily x3 days., # 18 tab(s), Refills(s) 0, Pharmacy: [facility]/pharmacy #6177, 187.5, cm, 01/16/24 13:46:00 EDT, [...] pneumococcal 23-valent vaccine 03/10/2019 Recorded Normal [facility] Comment on above: Result Comment: Elec tronically [...] 1 tab daily x3 days. Pickup at [facility]/pharmacy #6177 Unchanged cranberry (cranberry oral capsule) See [...] Pain Non-smoker BMI 60.0-69.9, adult Pharmacy Information [facility]/pharmacy #[id number]: [address], [place] [id number] [phone] Allergies No Known Allergies Problems Ongoing - [...] for choosing us for your care. Normal [facility] Physician Orderon 01-14-2024 Physician Order [id number] .00TIFF [facility] Provider Letteron 01-14-2024 Provider Letter January 14, 2024 RAKESH PIÑA [address] [place] [id number] : 1975 To Whom It May Concern, Please excuse above patient from work. Date of Illness: From: 01/07/2024 To: 01/16/2024 May Return to Work On: 01/17/2024 Restrictions: None Comments: Sincerely, [address] [address] [facility] Ambulatory Visit Summaryon 0 01-09-2024 Ambulatory Visit Summary WANG RAKESH Luis :1975 Visit Date:01/09/2024 Ambulatory Visit Instructions Your [...] 11:20 AM EDT With: Alexia Muhammad Where: [facility] Consenton 01-09-2024 Consent [id number]#1 .00TIFF [facility] ED Note-Physicianon 01-09-20 ED Note-Physician [id number]# 1.00TIFF Normal [facility] Medicine Office/Clini c Noteon 01-09-2024 Family Medicine Office/Clinic Note HPI Staff Rakesh is a 48 year old male presenting for ER follow up ER followup: Hospital: [facility] Visit date: 01/07/24 Symptoms the patient presented [...] Pain, # 60 tab(s), Refills(s) 0, Pharmacy: [facility]/pharmacy #6177, 187.5, cm, 01/09/24 10:51:00 EDT, [...] Pain, # 60 tab(s), Refills(s) 0, Pharmacy: [facility]/pharmacy #6177, 187.5, cm, 01/09/24 10:51:00 EDT, Height/Length Dosing, 187.5, kg, 08/23/23 9:30:00 EST, Weight Dosing triamcinolone, 60 mg = 1.5 mL, Injection, IntraMuscular, Once, Stop date 01/09/24 11:20:00 EDT, Routine, Start date 01/09/24 11:20:00 EDT, 01/09/24 11:20:00 EDT Orders: phentermine, 37.5 mg = 1 tab(s), Oral, Daily, # 30 tab(s), Refills(s) 0, Pharmacy: [facility], 176.5, cm, 07/26/23 9:32:00 EST, Height/Length [...] Social Hi (more content not included)... Normal [facility] Comment on above: Result Comment: Elec tronically Signed By: Torsten MONSIVAIS, Alexia Sewell\.br\Date and Time Signed: 01/09/24 11:25 EDT Physician Orderon 01-09-2024 Physician Order [id number]#1 .00TIFF [facility] Provider Letteron 01-09-2024 Provider Letter January 09, 2024 RAKESH PIÑA [address] [place] [id number] : 1975 To Whom It May Concern, Please excuse above patient from work due to medical Date of Illness: From: _01-08-24 To: _01-14-24 May Return to Work On:01-15-24 Restrictions: _ Comments: _ Sincerely, Family [address] [address] [facility] RAD - CT Reporton 01-09-[address] RAD - CT Report [id number]#1 .00TIFF [facility] ED Note-Physicianon 01-08-20 ED Note-Physician [id number]#1 .00TIFF [facility] RAD - CT Reporton 01-08-[address] RAD - CT Report [id number]#1 .00TIFF [facility] Operative Reporton Operative Report [id number]#1 .00TIFF [facility] Consultation Noteon 11-07-19 Consultation Note [id number]#1 .00TIFF [facility] PT - Progress Noteson 2023 PT - Progress Notes [id number]#1 .00TIFF [facility] RAD - MISCon 10-29-2023 RAD - MISC [id number]#1 .00TIFF Normal [facility] Retail - Clinical Noteon Retail - Clinical Note [id number]#1 .00TIFF Normal [facility] Plan of Care - PT/OT/Speecho n 09-06-2023 Plan of Care - PT/OT/Speech [id number]#1 .00TIFF Normal [facility] Physician Referralon 023 Physician Referral [id number]# 1.00TIFF Normal [facility] Testost Totalon 08-25-2023 Testosterone [Mass/Vol] 321 ng/dL Invalid Interpretation Code [id number] [facility] Comment on above: Result Comment: Adul t male reference interval is based on a population of healthy nonobese males (BMI <30) between 19 and 39 years old. precious Perdue.al. JCEM 2017,102;1585-3188. PMID: [id number]. Performed at: [facility] [id number] PhD Domenic Rider Performed By: #### 2 [id number], [id number] ####[facility] [address] [place] [address] Reminderson 08-24-2023 Reminders - From: Alexia Muhammad [...] for patient below Normal [facility] Medicine Office/Clini c Noteon 08-23-2023 Family Medicine [...] thing was in slow motion. 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 He would [...] he would like referral to PT at [facility] for bakc/leg pain. gabapentin and muscles relaxers did not help. 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 all questions answered. RTC as needed Ordered: cyclobenzaprine, 10 mg = 1 tab(s), Oral, Bedtime, PRN for spasm, # 30 tab(s), Refills(s) 0, Pharmacy: [facility], 176.5, cm, 07/26/23 9:32:00 EST, Height/Length Dosing, 187.2, kg, 07/26/23 9:32:00 EST, Weight Dosing gabapentin, 300 mg = 1 cap(s), Oral, Daily, # 30 cap(s), Refills(s) 0, Pharmacy: [facility], 176.5, cm, 07/26/23 9:32:00 EST, Height/Length Dosing, 187.2, kg, 07/26/23 9:32:00 EST, Weight Dosing 2. Fatigue (R53.83: Other fatigue) labs drawn today Ordered: Lab Specimen Collect [id number] Testosterone Level Total 3. Hypogonadism male (E29.1: Testicular hypofunction) testosterone ordered Ordered: Lab Specimen Collect [id number] Testosterone Level Total 4. BMI 60.0-69.9, adult (Z68.44: Body mass index [BMI] 60.0-69.9, adult) bmi education complete Ordered: cyclobenzaprine, 10 mg = 1 tab(s), Oral, Bedtime, PRN for spasm, # 30 tab(s), Refills(s) 0, Pharmacy: [facility], 176.5, cm, 07/26/23 9:32:00 EST, Height/Length Dosing, 187.2, kg, 07/26/23 9:32:00 EST, Weight Dosing gabapentin, 300 mg = 1 cap(s), Oral, Daily, # 30 cap(s), Refills(s) 0, Pharmacy: [facility], 176.5, cm, 07/26/23 9:32:00 EST, Height/Length Dosing, 187.2, kg, 07/26/23 9:32:00 EST, Weight Dosing Testosterone Level Total Vitamin B12 Level Vitamin D 25 Hydroxy Follow-up No qualifying data available Patient Education Obesity, Adult, Wjxf-oh-Slhh Problem List/Past Medical History Ongoing Encounter for [...] ago Tob (more content not included)... Normal [facility] Comment on above: Result Comment: Elec tronically [...] food choices, such as grocery stores and [employer]. What are the signs or symptoms? The [...] How much exercise you get. ? Take hcho-jtg-gbnjzhv and prescription medicines only as told by [...] with yo (more content not included)... Normal [facility] Vit B12on 08-23-2023 Cobalamin (Vitamin B12) [Mass/Vol] 301 pg/mL Normal 50-1500 [facility] Comment on above: Performed By: #### 2 [id number], [id number], [id number] #### [facility] [address] [place] [address] Vitamin D 25 Hydroxyon 08-23 Vitamin D 25 Hydroxy 57.7 ng/mL Normal 30.0-100.0 [facility] Comment on above: Performed By: #### 2 [id number], [id number], [id number] ####[facility] [address] [place] [address] Ambulatory Visit Summaryon 1 09-25-2022 Ambulatory Visit [...] 9:20 AM EST With: Alexia Muhammad Where: [facility] [place] Normal [facility] Family Medicine Office/Clini c Noteon 07-26-2023 Family [...] spasm, # 30 tab(s), Refills(s) 0, Pharmacy: [facility], 176.5, cm, 07/26/23 9:32:00 EST, Height/Length Dosing, 187.2, kg, 07/26/23 9:32:00 EST, Weight Dosing gabapentin, 300 mg = 1 cap(s), Oral, Daily, # 30 cap(s), Refills(s) 0, Pharmacy: [facility], 176.5, cm, 07/26/23 9:32:00 EST, Height/Length Dosing, 187.2, kg, 07/26/23 9:32:00 EST, Weight Dosing methylPREDNISolone, = 1 packet(s), Oral, As Directed, as directed on package labeling, X 6 day(s), # 21 tab(s), Refills(s) 0, Pharmacy: [facility], 176.5, cm, 07/26/23 9:32:00 EST, Height/Length [...] spasm, # 30 tab(s), Refills(s) 0, Pharmacy: [facility], 176.5, cm, 07/26/23 9:32:00 EST, Height/Length Dosing, 187.2, kg, 07/26/23 9:32:00 EST, Weight Dosing gabapentin, 300 mg = 1 cap(s), Oral, Daily, # 30 cap(s), Refills(s) 0, Pharmacy: [facility], 176.5, cm, 07/26/23 9:32:00 EST, Height/Length Dosing, 187.2, kg, 07/26/23 9:32:00 EST, Weight Dosing methylPREDNISolone, = 1 packet(s), Oral, As Directed, as directed on package labeling, X 6 day(s), # 21 tab(s), Refills(s) 0, Pharmacy: [facility], 176.5, cm, 07/26/23 9:32:00 EST, Height/Length Dosing, 187.2, kg, 07/26/23 9:32:00 EST, Weight Dosing 3. Numbness and tingling of foot (R20.0: Anesthesia of skin) discussed ENG results Ordered: cyclobenzaprine, 10 mg = 1 tab(s), Oral, Bedtime, PRN for spasm, # 30 tab(s), Refills(s) 0, Pharmacy: [facility], 176.5, cm, 07/26/23 9:32:00 EST, Height/Length Dosing, 187.2, kg, 07/26/23 9:32:00 EST, Weight Dosing gabapentin, 300 mg = 1 cap(s), Oral, Daily, # 30 cap(s), Refills(s) 0, Pharmacy: [facility], 176.5, cm, 07/26/23 9:32:00 EST, Height/Length Dosing, 187.2, kg, 07/26/23 9:32:00 EST, Weight Dosing methylPREDNISolone, = 1 packet(s), Oral, As Directed, as directed on package labeling, X 6 day(s), # 21 tab(s), Refills(s) 0, Pharmacy: [facility], 176.5, cm, 07/26/23 9:32:00 EST, Height/Length Dosing, 187.2, kg, 07/26/23 9:32:00 EST, Weight Dosing 4. Class 3 obesity (E66.01: Morbid (severe) obesity due to excess calories) pt continues with diet Ordered: cyclobenzaprine, 10 mg = 1 tab(s), Oral, Bedtime, PRN for spasm, # 30 tab(s), Refills(s) 0, Pharmacy: [facility], 176.5, cm, 07/26/23 9:32:00 EST, Height/Length Dosing, 187.2, kg, 07/26/23 9:32:00 EST, Weight Dosing gabapentin, 300 mg = 1 cap(s), Oral, Daily, # 30 cap(s), Refills(s) 0, Pharmacy: [facility], 176.5, cm, 07/26/23 9:32:00 EST, Height/Length Dosing, 187.2, kg, 07/26/23 9:32:00 EST, Weight Dosing methylPREDNISolone, = 1 packet(s), Oral, As Directed, as directed on package labeling, X 6 day(s), # 21 tab(s), Refills(s) 0, Pharmacy: [facility], (more content not included)... Normal [facility] Comment on above: Result Comment: Elec tronically Signed By: Alexia Muhammad\.br\Date and Time Signed: 07/26/23 09:54 EST EMG Electromyographyon 07-10 EMG Electromyography [id number]#1 .00TIFF [facility] EMG Electromyography [id number]#1. 00TIFF Normal [facility] Physician Referralon 023 Physician Referral [id number]# 1.00TIFF Normal [facility] Ambulatory Visit Summaryon 1 Ambulatory Visit Summary [...] 9:20 AM EST With: Alexia Muhammad Where: [facility] Family Medicine Office/Clini c Noteon 06-21-2023 [...] day(s), # 30 tab(s), Refills(s) 1, Pharmacy: [facility], 176.5, cm, 06/21/23 9:41:00 EDT, Height/Length Dosing, 186.7, kg, 06/21/23 9:41:00 EDT, Weight Dosing meloxicam, 15 mg = 1 tab(s), Oral, Daily, X 30 day(s), # 30 tab(s), Refills(s) 0, Pharmacy: [facility], 176.5, cm, 06/21/23 9:41:00 EDT, Height/Length Dosing, 186.7, kg, 06/21/23 9:41:00 EDT, Weight Dosing meloxicam, 15 mg = 1 tab(s), Oral, Daily, # 30 tab(s), Refills(s) 1, Pharmacy: [facility], 176.5, cm, 05/22/23 9:51:00 EDT, Height/Length Dosing, 190.2, kg, 05/22/23 9:51:00 EDT, Weight Dosing 2. Left sciatic nerve pain (M54.32: Sciatica, left side) pt continues to have left sciatic nerve pain but it is improved Ordered: meloxicam, 15 mg = 1 tab(s), Oral, Daily, X 30 day(s), # 30 tab(s), Refills(s) 1, Pharmacy: [facility], 176.5, cm, 06/21/23 9:41:00 EDT, Height/Length Dosing, 186.7, kg, 06/21/23 9:41:00 EDT, Weight Dosing meloxicam, 15 mg = 1 tab(s), Oral, Daily, X 30 day(s), # 30 tab(s), Refills(s) 0, Pharmacy: [facility], 176.5, cm, 06/21/23 9:41:00 EDT, Height/Length Dosing, 186.7, kg, 06/21/23 9:41:00 EDT, Weight Dosing meloxicam, 15 mg = 1 tab(s), Oral, Daily, # 30 tab(s), Refills(s) 1, Pharmacy: [facility], 176.5, cm, 05/22/23 9:51:00 EDT, Height/Length Dosing, 190.2, kg, 05/22/23 9:51:00 EDT, Weight Dosing phentermine, 37.5 mg = 1 tab(s), Oral, Daily, X 30 day(s), # 30 tab(s), Refills(s) 0, Pharmacy: [facility], 176.5, cm, 05/22/23 9:51:00 EDT, Height/Length Dosing, 190.2, kg, 05/22/23 9:51:00 EDT, Weight Dosing [facility] Ambulatory Referral 3. Lower extremity numbness (R20.0: Anesthesia of skin) EMG order sent to [facility] in [place] Ordered: [facility] External Ambulatory Referral 4. Morbid obesity due to excess calories (E66.01: Morbid (severe) obesity due to excess calories) BMI education complete Ordered: meloxicam, 15 mg = 1 tab(s), Oral, Daily, X 30 day(s), # 30 tab(s), Refills(s) 1, Pharmacy: [facility], 176.5, cm, 06/21/23 9:41:00 EDT, Height/Length Dosing, 186.7, kg, 06/21/23 9:41:00 EDT, Weight Dosing meloxicam, 15 mg = 1 tab(s), Oral, Daily, X 30 day(s), # 30 tab(s), Refills(s) 0, Pharmacy: [facility], 176.5, cm, 06/21/23 9:41:00 EDT, Height/Length Dosing, 186.7, kg, 06/21/23 9:41:00 EDT, Weight Dosing meloxicam, 15 mg = 1 tab(s), Oral, Daily, # 30 tab(s), Refills(s) 1, Pharmacy: [facility], 176.5, cm, 05/22/23 9:51:00 EDT, Height/Length Dosing, 190.2, kg, 05/22/23 9:51:00 EDT, Weight Dosing phentermine, 37.5 mg = 1 tab(s), Oral, Daily, X 30 day(s), # 30 tab(s), Refills(s) 0, Pharmacy: [facility], 176.5, cm, 05/22/23 9:51:00 EDT, Height/Length Dosing, 190.2, kg, 05/22/23 9:51:00 EDT, Weight Dosing 5. BMI 50.0-59.9, adult (Z68.43: Body mass index [BMI] 50.0-59.9, adult) BMI education complete 6. Non-smoker (Z78.9: Other specified health status) continue not smoking Ordered: meloxicam, 15 mg = 1 tab(s), Oral, Daily, X 30 day(s), # 30 tab(s), Refills(s) 1, Pharmacy: [facility], 176.5, cm, 06/21/23 9:41:00 EDT, Height/Length Dosing, 186.7, kg, 06/21/23 9:41:00 EDT, Weight Dosing meloxicam, 15 mg = 1 tab(s), Or (more content not included)... [facility] Comment on above: Result Comment: [...] 9:20 AM EDT With: Alexia Muhammad Where: [facility] Ambulatory Visit Summary RAKESH PIÑA :1975 [...] 9:20 AM EDT With: Alexia Muhammad Where: [facility] Normal [facility] Medicine Office/Clini c Noteon 05-22-2023 Family [...] in his legs at night. 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 all questions answered. RTC 4 weeks Ordered: meloxicam, 15 mg = 1 tab(s), Oral, Daily, # 30 tab(s), Refills(s) 1, Pharmacy: [facility], 176.5, cm, 05/22/23 9:51:00 EDT, Height/Length Dosing, 190.2, kg, 05/22/23 9:51:00 EDT, Weight Dosing 2. Left sciatic nerve pain (M54.32: Sciatica, left side) will order antiinflammatory. steroid did not give him any relief Ordered: meloxicam, 15 mg = 1 tab(s), Oral, Daily, # 30 tab(s), Refills(s) 1, Pharmacy: [facility], 176.5, cm, 05/22/23 9:51:00 EDT, Height/Length Dosing, 190.2, kg, 05/22/23 9:51:00 EDT, Weight Dosing phentermine, 37.5 mg = 1 tab(s), Oral, Daily, X 30 day(s), # 30 tab(s), Refills(s) 0 phentermine, 37.5 mg = 1 tab(s), Oral, Daily, X 30 day(s), # 30 tab(s), Refills(s) 0, Pharmacy: [facility], 176.5, cm, 05/22/23 9:51:00 EDT, Height/Length Dosing, 190.2, kg, 05/22/23 9:51:00 EDT, Weight Dosing 3. BMI 60.0-69.9, adult (Z68.44: Body mass index [BMI] 60.0-69.9, adult) BMI education complete Ordered: meloxicam, 15 mg = 1 tab(s), Oral, Daily, # 30 tab(s), Refills(s) 1, Pharmacy: [facility], 176.5, cm, 05/22/23 9:51:00 EDT, Height/Length Dosing, 190.2, kg, 05/22/23 9:51:00 EDT, Weight Dosing 4. Morbid obesity due to excess calories (E66.01: Morbid (severe) obesity due to excess calories) see above Ordered: meloxicam, 15 mg = 1 tab(s), Oral, Daily, # 30 tab(s), Refills(s) 1, Pharmacy: [facility], 176.5, cm, 05/22/23 9:51:00 EDT, Height/Length Dosing, 190.2, kg, 05/22/23 9:51:00 EDT, Weight Dosing phentermine, 37.5 mg = 1 tab(s), Oral, Daily, X 30 day(s), # 30 tab(s), Refills(s) 0 phentermine, 37.5 mg = 1 tab(s), Oral, Daily, X 30 day(s), # 30 tab(s), Refills(s) 0, Pharmacy: [facility], 176.5, cm, 05/22/23 9:51:00 EDT, Height/Length Dosing, 190.2, kg, 05/22/23 9:51:00 EDT, Weight Dosing 5. Non-smoker (Z78.9: Other specified health status) continue not smoking Ordered: meloxicam, 15 mg = 1 tab(s), Oral, Daily, # 30 tab(s), Refills(s) 1, Pharmacy: [facility], 176.5, cm, 05/22/23 9:51:00 EDT, Height/Length Dosing, 190.2, kg, 05/22/23 9:51:00 EDT, Weight Dosing phentermine, 37.5 mg = 1 tab(s), Oral, Daily, X 30 day(s), # 30 tab(s), Refills(s) 0 phentermine, 37.5 mg = 1 tab(s), Oral, Daily, X 30 day(s), # 30 tab(s), Refills(s) 0, Pharmacy: [facility], 176.5, cm, 05/22/23 9:51:00 EDT, Height/Length [...] Daily Allerg (more content not included)... Normal [facility] Comment on above: Result Comment: Elec tronically Signed By: Alexia Muhammad\.br\Date and Time Signed: 05/22/23 10:34 EDT [place] 04-26-2023 Consent [id number] .00CD:[id number] [facility] Family Medicine Office/Clini c Noteon 04-24-2023 Family [...] give kenalog 60mg IM in office today. [facility] Comment on above: Result Comment: [...] AM EDT With: Alexia Muhammad Where: [facility] [place] Normal [facility] Auto Diffon 03-19-2023 Basophils/100 WBC (Bld) 0.3 % Normal 0.0-2.0 [facility] Comment on above: Order Comment: Order Added by Discern Expert. Performed By: #### 2 [id number], [id number], [id number], [id number] ####[address] [place] [address] Basophils/Leukocytes Auto (Bld) [Pure # fraction] 0.0 E9/L Normal 0.0-0.2 [facility] Comment on above: Order Comment: Order Added by Discern Expert. Performed By: #### 2 [id number], [id number], [id number], [id number], [id number] ####[address] [address] Eosinophils/100 WBC (Bld) 2.1 % Normal 0.0-8.0 [facility] Comment on above: Order Comment: Order Added by Discern Expert. Performed By: #### 2 957382, [id number], [id number], [id number] ####[address] [address] Eosinophils/Leukocytes Auto (Bld) [Pure # fraction] 0.2 E9/L Normal 0.0-0.5 [facility] Comment on above: Order Comment: Order Added by Discern Expert. Performed By: #### 2 323998, 9002125, 0674737, [id number], [id number] ####[address] [address] Lymphocytes/100 WBC (Bld) 20.5 % Normal 14.0-50.0 [facility] Comment on above: Order Comment: Order Added by Discern Expert. Performed By: #### 2 512882, 1533925, 5608147, [id number], [id number] ####[address] [address] Lymphocytes/Leukocytes Auto (Bld) [Pure # fraction] 1.6 E9/L Normal 1.0-4.0 [facility] Comment on above: Order Comment: Order Added by Discern Expert. Performed By: #### 2 502143, [id number], 9820877, 3646059, [id number] ####[address] [place] [address] Monocytes/100 WBC (Bld) 8.7 % Normal 4.0-14.0 [facility] Comment on above: Order Comment: Order Added by Discern Expert. Performed By: #### 2 914222, 9773222, 1754826, 9237811, [id number] ####[address] [place] [address] Monocytes/Leukocytes Auto (Bld) [Pure # fraction] 0.7 E9/L Normal 0.2-1.0 [facility] Comment on above: Order Comment: Order Added by Discern Expert. Performed By: #### 2 153165, 5509925, 6702727, 9073868, [id number] ####[address] [address] Neutrophils/100 WBC (Bld) 68.4 % Normal 36.0-75.0 [facility] Comment on above: Order Comment: Order Added by Discern Expert. Performed By: #### 2 372853, 6172669, 0179973, 8504196, [id number] ####[address] [address] Neutrophils/Leukocytes Auto (Bld) [Pure # fraction] 5.3 E9/L Normal 2.0-7.5 [facility] Comment on above: Order Comment: Order Added by Discern Expert. Performed By: #### 2 394813, [id number], 2826035, 8655519, [id number] ####[address] [place] [address] CBC w/ Auto Diffon 3 Erythrocyte distribution width (RBC) [Ratio] 16.3 % High 10.9-14.2 [facility] Comment on above: Performed By: #### 2 644112, 9325590, 7347348, 3802714, [id number] ####[address] [place] [address] Hematocrit (Bld) [Volume fraction] 43.7 % Normal 37.7-49.0 [facility] Comment on above: Performed By: #### 2 162001, 4438916, 3992930, 6273149, [id number] ####[address] [address] Hemoglobin (Bld) [Mass/Vol] 14.4 g/dL Normal 13.5-17.5 [facility] Comment on above: Performed By: #### 2 324993, 3459130, 9548353, 1557215, 83488816 ####[address] MCH (RBC) [Entitic mass] 27.9 pg Normal 27.0-34.0 [facility] Comment on above: Performed By: #### 2 070901, 8329940, 7888667, 4669985, 80032316 ####[address] MCHC (RBC) [Mass/Vol] 33.0 g/dL Normal 31.4-36.0 [facility] Comment on above: Performed By: #### 2 023032, 3287137, 2423516, 8428690, 44845066 ####[address] [address] MCV (RBC) [Entitic vol] 84.8 fL Normal 80.0-100.0 [facility] Comment on above: Performed By: #### 2 281986, 4244780, 3715154, 3920961, 90203893 ####[address] [address] Platelet mean volume (Bld) [Entitic vol] 7.7 fL Normal 6.4-10.8 [facility] Comment on above: Performed By: #### 2 952944, 0362975, 4621928, 4566910, 97021050 ####[address] Platelets (Bld) [#/Vol] 278.0 E9/L Normal 150.0-500.0 [facility] Comment on above: Performed By: #### 2 732036, 2707868, 3563513, 4035017, 63641894 ####[facility] [address] [place] [address] RBC (Bld) [#/Vol] 5.2 E12/L Normal 4.3-5.9 [facility] Comment on above: Performed By: #### 2 095090, 3277363, 6581089, 4901981, 66109589 ####[facility] [address] [place] [address] WBC corrected for nucl RBC Auto (Bld) [#/Vol] 7.7 E9/L Normal 4.0-11.0 [facility] Comment on above: Performed By: #### 2 526840, 7411415, 4655827, 9796277, 40070400 ####[facility] [address] [place] [address] CHEMISTRYOrdered By: SYSTEM SYSTEM on 03-19-2023 Cholesterol [...] 03-19-2023 Family Medicine Office/Clinic Note HPI Staff Rose is a 47 year old presenting to [...] Daily, # 30 tab(s), Refills(s) 0, [id number], 176.5, cm, 03/19/23 13:15:00 [...] Daily, # 30 tab(s), Refills(s) 0, [id number], 176.5, cm, 03/19/23 13:15:00 EDT, Height/Length Dosing Colon cancer screening (Z12.11: (more content not included)... Normal [facility] Comment on above: Result Comment: Elec tronically Signed By: Alexia Muhammad\.br\Date and Time Signed: 03/19/23 14:00 EDT Formson 03-19-2023 Forms [id number]:127 Normal [facility] HEMATOLOGYOrdered By: SYSTEM SYSTEM on 03-19-2023 Basophils/100 [...] 20.5 % Normal 14.0 - 50.0 % FT HemeAutoSS Lymphocytes/Leukocytes Auto (Bld) [Pure # fraction] 1.6 E9/L Normal 1.0 - 4.0 E9/L [facility] HemeAutoSS Monocytes/100 WBC (Bld) 8.7 % Normal 4.0 - 14.0 % FT HemeAutoSS Monocytes/Leukocytes Auto (Bld) [Pure # fraction] [...] 03-19-2023 Cholesterol [Mass/Vol] 171 mg/dL Normal 120-200 [facility] Comment on above: Performed By: #### 2 845792, 4946662, 6345862, 2715260, 82554530 ####[facility] [address] [place] [address] Cholesterol in HDL [Mass/Vol] 39 mg/dL Invalid Interpretation Code [facility] Comment on above: Result Comment: HDL > or equal to 60 mg/dL: Low cardiovascular risk HDL < 40 mg/dL : High cardiovascular risk Performed By: #### 2 218101, 4799716, 9215072, 2975250, 64885541 ####[facility] [address] [place] [address] Cholesterol in LDL [Mass/Vol] 112 mg/dL Normal <=129 [facility] Comment on above: Performed By: #### 2 408489, 9113231, 3657934, 5133221, 26206832 ####[facility] [address] [place] [address] Cholesterol in VLDL [Mass/Vol] 19 mg/dL Normal 7-40 [facility] Comment on above: Performed By: #### 2 066967, 6654753, 9947372, 2926087, 67678544 ####[facility] [address] [place] [address] Triglyceride [Mass/Vol] 94 mg/dL Normal <=149 [facility] Comment on above: Performed By: #### 2 987046, 1932586, 6579959, 8702537, 19418557 ####[facility] [address] [place] [address] PSA Screen, Totalon 03-19-20 23 Prostate specific Ag [Mass/Vol] 0.9 ng/mL Normal 0.1-3.5 [facility] Comment on above: Result Comment: The concentration of PSA determined by different manufacturers can vary due to differences in assay methods and reagent specificity. Values obtained from different assay methods cannot be used interchangeably. The methodology used for this result was chemiluminescence using dough's Access Hybritech PSA reagent. Performed By: #### 2 237048, 3680040, 2774045, 3526474, [id number] ####[facility] [address] [place] [address] TSHon 03-19-2023 TSH Qn 2.03 m[IU]/L Normal 0.34-5.60 [facility] Comment on above: Performed By: #### 2 901629, 6873376, 5545836, 3372822, 87848826 ####[facility] [address] [place] [address] Covid-19 PCR (CVDTBH)on 07-11 SARS-CoV-2 (COVID-19) RNA BETHANY+probe Ql (Unsp spec) Not detected Normal NOT DETECTED [facility] Comment on above: Result Comment: When [...] for this test is supported by the Wink Cutter Operator of Health and Human Service's declaration that [...] used). Performed By: #### C VDTBH #### [facility] [address] [place] [address] Mynor Yun GROUP A STREP CULTUREon 07-11 S. pyogenes Ag Ql (Unsp spec) Culture Observations: NEGATIVE FOR GROUP A STREPTOCOCCUS. Normal [facility] Comment on above: Performed By: #### G RASTCX #### [facility] [address] [address] [address] Mynor Yun INFLUENZA A AND B AGon 07-28 INFLUANEGH SEE BELOW Normal [facility] Comment on above: Result Comment: Nega tive for Flu A protein angiten. Infection due to Flu A cannot be ruled out. Flu A angiten in the sample may be below the detection limit of the test. Performed By: #### I NFLUAB #### [facility] [address] [address] [address] Mynor Yun INFLUBNEGH SEE BELOW Normal [facility] Comment on above: Result Comment: Nega tive for Flu B protein antigen. Infection due to Flu B cannot be ruled out. Flu B antigen in the sample may be below the detection limit of the test. Performed By: #### I NFLUAB #### [facility] [address] [place] [address] Dr. Mynor Yun INFLUENZA A AG Negative Normal NEGATIVE SEE COMMENT [facility] Comment on above: Performed By: #### I NFLUAB #### [facility] [address] [place] [address] Dr. Mynor Yun INFLUENZA B AG Negative Normal NEGATIVE SEE COMMENT [facility] Comment on above: Performed By: #### I NFLUAB #### [facility] [address] [place] [address] Dr. Mynor Yun INTERNAL CONTROLS Within Normal Limits Normal Wi thin Normal Limits [facility] Comment on above: Performed By: #### I NFLUAB #### [facility] [address] [place] [address] Dr. Mynor Yun STREPT SCREENon 07-28-2022 STREP SCREEN A Negative Normal NEGATIVE [facility] Comment on above: Performed By: #### S SCRN #### [facility] [address] [place] [address] Dr. Mynor Yun XR SINUSES 3 VIEWS [...] by: KELLIE SMALLS Date: 2022-02-01 09:58 Normal [facility] HAND LEFT 3 [facility] 12-29-2021 HAND LEFT 3 [facility] Department of Radiology [address] [place] [id number] Patient Name: RAKESH PIÑA : 1975 Sex: M Age: Race: White Pt. Location: Patient Status: D Ordered Date: 12/29/2021 11:45:00 AM Completed Date: 12/29/2021 11:50 AM Requesting Provider: LORI DALLAS Attending Provider: LORI DALLAS Report Copy To: Signs & Symptoms: M79.642 Pain in left hand I10 History: Comments: Evaluate Exam: HAND LEFT 3 [facility] HAND LEFT 3 [facility] 12/29/2021 11:50 AM CLINICAL INDICATIONS: M79.642 Pain [...] alignment. Electronically signed: Heather Montana. Transcribed by: [email or web address], User Resident: Electronically Signed by: HEATHER MONTANA @ 12/31/2021 08:55 AM Normal [facility] Comment on above: Order Comment: Evalu ate HAND LEFT 3 [facility] 12-08-2021 HAND LEFT 3 [facility] Department of Radiology [address] [place] [id number] Patient Name: RAKESH PIÑA : 1975 Sex: M Age: Race: White Pt. Location: Patient Status: D Ordered Date: 12/08/2021 1:25:00 PM Completed Date: 12/08/2021 01:29 PM Requesting Provider: LORI DALLAS Attending Provider: LORI DALLAS Report Copy To: Signs & Symptoms: M79.642 Pain in left hand I10 History: [place] Comments: Evaluate Exam: HAND LEFT 3 S [...] bridging. Electronically signed: Ronaldo Major. Transcribed by: [email or web address], User Resident: Electronically Signed by: RONALDO MAJOR @ 12/09/2021 04:04 PM Normal [facility] Comment on above: Order Comment: Evalu ate HAND LEFT 3 [facility] 11-14-2021 HAND LEFT 3 VWS [facility] Department of Radiology [address] [place] [id number] Patient Name: RAKESH PIÑA : 1975 [...] fracture. Electronically signed: Ramirez Smith. Transcribed by: [email or web address], User Resident: Electronically Signed by: RAMIREZ Eleazar SMITH @ 11/14/2021 08:02 PM Normal [facility] Comment on above: Order Comment: Views (X-RAY, HAND): PA, Lateral, Oblique TESTOSTERONE, TOTALon 2021 Testosterone [Mass/Vol] 411 ng/dL Normal 264-916 [facility] Comment on above: Result Comment: Adul t male reference interval is based on a population of healthy nonobese males (BMI <30) between 19 and 39 years old. Iron et.al. JCEM 2017,102;9426-8838. PMID: [id number]. Performed By: #### T ESTTOT #### [facility] [address] [place] [address] Dr. Mynor Yun CBC AUTO DIFFon 11-11-2021 BASO # 0.0 103/ul Normal 0.0-0.1 [facility] Comment on above: Performed By: #### C BC #### [facility] [address] [place] [address] Dr. Mynor Yun Basophils/100 WBC (Bld) 0.2 % Normal 0.2-2.0 [facility] Comment on above: Performed By: #### C BC #### [facility] [address] [place] [address] Dr. Mynor Yun EO # 0.1 103/ul Normal 0.0-0.7 [facility] Comment on above: Performed By: #### C BC #### [facility] [address] [place] [address] Dr. Mynor Yun Eosinophils/100 WBC (Bld) 1.2 % Normal 0.9-7.0 [facility] Comment on above: Performed By: #### C BC #### [facility] [address] [place] [address] Dr. Mynor Yun Erythrocyte distribution width (RBC) [Ratio] 14.3 % Normal 11.0-15.0 [facility] Comment on above: Performed By: #### C BC #### [facility] [address] [place] [address] Dr. Mynor Yun Hematocrit (Bld) [Volume fraction] 47.3 % Normal 42.0-54.0 [facility] Comment on above: Performed By: #### C BC #### [facility] [address] [place] [address] Dr. Mynor Yun Hemoglobin (Bld) [Mass/Vol] 15.2 g/dL Normal 14.0-18.0 [facility] Comment on above: Performed By: #### C BC #### [facility] [address] [place] [address] Dr. Mynor Yun IG # 0.03 10e3/ul Normal 0.00-0.03 [facility] Comment on above: Performed By: #### C BC #### [facility] [address] [place] [address] Dr. Mynor Yun IG % 0.3 % Normal 0.0-0.5 [facility] Comment on above: Performed By: #### C BC #### [facility] [address] [place] [address] Dr. Mynor Yun LYMPH # 1.6 103/ul Normal 1.2-3.8 [facility] Comment on above: Performed By: #### C BC #### [facility] [address] [place] [address] Dr. Mynor Yun Lymphocytes/100 WBC (Bld) 18.4 % Critically low 20.5-60.0 [facility] Comment on above: Performed By: #### C BC #### [facility] [address] [place] [address] Dr. Mynor Yun MANUAL DIFF REQ NO Normal [facility] Comment on above: Performed By: #### C BC #### [facility] [address] [place] [address] Dr. Mynor Yun MCH (RBC) [Entitic mass] 28.8 pg Normal 25.9-34.0 [facility] Comment on above: Performed By: #### C BC #### [facility] [address] [address] [address] Mynor Yun MCHC (RBC) [Mass/Vol] 32.1 g/dL Normal 29.9-35.2 [facility] Comment on above: Performed By: #### C BC #### [facility] [address] [address] [address] Mynor Yun MCV (RBC) [Entitic vol] 89.8 fL Normal 80.0-94.0 [facility] Comment on above: Performed By: #### C BC #### [facility] [address] [place] [address] Dr. Mynor Yun MONO # 0.7 103/ul Normal 0.3-0.8 [facility] Comment on above: Performed By: #### C BC #### [facility] [address] [place] [address] Dr. Mynor Yun Monocytes/100 WBC (Bld) 8.4 % Normal 1.7-12.0 [facility] Comment on above: Performed By: #### C BC #### [facility] [address] [place] [address] Dr. Mynor Yun NEUT # 6.2 103/ul Normal 1.4-6.5 [facility] Comment on above: Performed By: #### C BC #### [facility] [address] [place] [address] Dr. Mynor Yun Neutrophils/100 WBC (Bld) 71.5 % Normal 43.0-75.0 [facility] Comment on above: Performed By: #### C BC #### [facility] [address] [place] [address] Dr. Mynor Yun Platelet mean volume (Bld) [Entitic vol] 8.7 fL Critically low 9.5-13.5 [facility] Comment on above: Performed By: #### C BC #### [facility] [address] [place] [address] Dr. Mynor Yun PLT 263 103/ul Normal 150-450 [facility] Comment on above: Performed By: #### C BC #### [facility] [address] [address] [address] Mynor Yun RBC 5.27 106/ul Normal 4.70-6.10 [facility] Comment on above: Performed By: #### C BC #### [facility] [address] [address] [address] Mynor Yun WBC 8.7 103/ul Normal 4.0-11.0 [facility] Comment on above: Performed By: #### C BC #### [facility] [address] [place] [address] Dr. Mynor Yun LIPID PROFILEon 11-11-2021 CHOL-HDL RATIO NORM SEE BELOW Normal [facility] Comment on above: Result Comment: 3.3 - 4.4 LOW RISK 4.4 - 7.1 AVERAGE RISK 7.1 - 11.0 MODERATE RISK >11.0 HIGH RISK Performed By: #### S SCRN #### [facility] [address] [place] [address] Dr. Mynor Yun Cholesterol [Mass/Vol] 129 mg/dL Normal <=200 [facility] Comment on above: Performed By: #### S SCRN #### [facility] [address] [place] [address] Dr. Mynor Yun Cholesterol in HDL [Mass/Vol] 34 mg/dL Normal [facility] Comment on above: Performed By: #### S SCRN #### [facility] [address] [place] [address] Dr. Mynor Yun Cholesterol in LDL [Mass/Vol] 82.2 mg/dL Normal [facility] Comment on above: Performed By: #### S SCRN #### [facility] [address] [place] [address] Dr. Mynor Yun Cholesterol.total/Chol esterol in HDL [Mass ratio] 3.8 {ratio} Normal [facility] Comment on above: Performed By: #### S SCRN #### [facility] [address] [place] [address] Dr. Mynor Yun HDL NORMAL > or = 60 mg/dl - LO W CARDIOVASCULAR RISK <40 mg/dl - HIGH CARDIOVASCULAR RISK Normal [facility] Comment on above: Performed By: #### S SCRN #### [facility] [address] [address] [address] Mynor Yun LDL CALC NORMAL SEE BELOW Normal [facility] Comment on above: Result Comment: <100 mg/dl OPTIMAL 100 - 129 mg/dl NEAR OR ABOVE OPTIMAL 130 - 159 mg/dl BORDERLINE HIGH 160 - 189 mg/dl HIGH >190 mg/dl VERY HIGH Performed By: #### S SCRN #### [facility] [address] [address] [address] Mynor Yun Triglyceride [Mass/Vol] 64 mg/dL Normal <=150 [facility] Comment on above: Performed By: #### S SCRN #### [facility] [address] [place] [address] Dr. Mynor Yun VLDL CALC 12.8 mg/dL Normal [facility] Comment on above: Performed By: #### S SCRN #### [facility] [address] [address] [address] Mynor Yun PROF 14(COMP METB)on 022 Albumin [Mass/Vol] 3.8 g/dL Normal 3.5-5.0 [facility] Comment on above: Performed By: #### T SH, LIPID, CMP #### [facility] [address] [place] [address] Dr. Mynor Yun Albumin/Globulin [Mass ratio] 0.9 {ratio} Normal [facility] Comment on above: Performed By: #### T SH, LIPID, CMP #### [facility] [address] [place] [address] Dr. Mynor Yun ALP [Catalytic activity/Vol] 76 U/L Normal 38-126 [facility] Comment on above: Performed By: #### T SH, LIPID, CMP #### [facility] [address] [place] [address] Dr. Mynor Yun ALT [Catalytic activity/Vol] 49 U/L Normal 21-72 [facility] Comment on above: Performed By: #### T SH, LIPID, CMP #### [facility] [address] [address] [address] Mynor Yun Anion gap [Moles/Vol] 11.2 mmol/L Normal [facility] Comment on above: Performed By: #### T SH, LIPID, CMP #### [facility] [address] [address] [address] Mynor Yun AST [Catalytic activity/Vol] 31 U/L Normal 17-59 [facility] Comment on above: Performed By: #### T SH, LIPID, CMP #### [facility] [address] [place] [address] Dr. Mynor Yun Bilirubin [Mass/Vol] 0.5 mg/dL Normal 0.2-1.3 [facility] Comment on above: Performed By: #### T SH, LIPID, CMP #### [facility] [address] [place] [address] Dr. Mynor Yun Calcium [Mass/Vol] 9.0 mg/dL Normal 8.4-10.2 [facility] Comment on above: Performed By: #### T SH, LIPID, CMP #### [facility] [address] [address] [address] Mynor Yun Chloride [Moles/Vol] 104 mmol/L Normal 98-107 [facility] Comment on above: Performed By: #### T SH, LIPID, CMP #### [facility] [address] [address] [address] Mynor Yun CO2 [Moles/Vol] 30.6 mmol/L Critically high 22.0-30.0 [facility] Comment on above: Performed By: #### T SH, LIPID, CMP #### [facility] [address] [place] [address] Dr. Mynor Yun Creatinine [Mass/Vol] 0.95 mg/dL Normal 0.66-1.25 [facility] Comment on above: Performed By: #### T SH, LIPID, CMP #### [facility] [address] [place] [address] Dr. Mynor Yun EGFR-AF PANAMANIAN >60 Normal >=60 [facility] Comment on above: Performed By: #### T SH, LIPID, CMP #### [facility] [address] [address] [address] Mynor Yun EGFR-NON AF PANAMANIAN >60 Normal >=60 [facility] Comment on above: Performed By: #### T SH, LIPID, CMP #### [facility] [address] [address] [address] Mynor Yun Globulin (S) [Mass/Vol] 4.3 g/dL Normal [facility] Comment on above: Performed By: #### T SH, LIPID, CMP #### [facility] [address] [address] [address] Mynor Yun Glucose [Mass/Vol] 104 mg/dL Normal 74-106 [facility] Comment on above: Performed By: #### T SH, LIPID, CMP #### [facility] [address] [place] [address] Dr. Mynor Yun Potassium [Moles/Vol] 3.8 mmol/L Normal 3.4-5.0 [facility] Comment on above: Performed By: #### T SH, LIPID, CMP #### [facility] [address] [address] [address] Mynor Yun Protein [Mass/Vol] 8.1 g/dL Normal 6.1-8.2 [facility] Comment on above: Performed By: #### T SH, LIPID, CMP #### [facility] [address] [address] [address] Mynor Yun Sodium [Moles/Vol] 142 mmol/L Normal 137-145 [facility] Comment on above: Performed By: #### T SH, LIPID, CMP #### [facility] [address] [address] [address] Mynor Yun Urea nitrogen [Mass/Vol] 11.0 mg/dL Normal 9.0-20.0 [facility] Comment on above: Performed By: #### T SH, LIPID, CMP #### [facility] [address] [address] [address] Mynor Yun Urea nitrogen/Creatinine [Mass ratio] 11.6 mg/mg Normal [facility] Comment on above: Performed By: #### T SH, LIPID, CMP #### [facility] [address] [address] [address] Mynor Yun TSHon 11-11-2021 TSH 1.612 uIU/mL Normal 0.470-4.680 [facility] Comment on above: Performed By: #### T SH, LIPID, CMP #### [facility] [address] [address] [address] Mynor Yun TSH RANGE SEE BELOW Normal [facility] Comment on above: Result Comment: <0.3 4 UIU/ml HYPERTHYROID 0.34-5.60 UIU/ml EUTHYROID >5.60 UIU/ml HYPOTHYROID Performed By: #### T SH, LIPID, CMP #### [facility] [address] [address] [address] Mynor Yun Encounters Encounter Date Encounter Type Care Provider Facility Start: 02-25-2024 End: 02-25-2024 ambulatory Wilbert Buckner MD [facility]: [facility] Start: 02-18-2024 End: 02-18-2024 ambulatory Wilbert Buckner MD Facility: [facility] Start: 01-23-2024 End: 01-26-2024 ambulatory ALEXIA TORSTEN [facility] Start: 01-16-2024 End: 01-16-2024 ambulatory Alexia L Torsten Facility:[facility] Start: 01-14-2024 End: 01-14-2024 ambulatory Alexia L Torsten Facility:[facility] Start: 01-09-2024 End: 01-09-2024 ambulatory Alexia L Torsten Facility:[facility] Start: 12-03-2023 End: 12-03-2023 ambulatory Wilbert Buckner MD Facility: [facility] Start: 11-05-2023 End: 11-05-2023 ambulatory Wilbert Buckner MD Facility: [facility] Start: 08-23-2023 End: 08-23-2023 ambulatory Alexia L Torsten Facility[facility] Start: 07-26-2023 End: 07-26-2023 ambulatory Alexia L Torsten Facility:[facility] Start: 06-21-2023 End: 06-21-2023 ambulatory [facility] Start: 05-22-2023 End: 05-22-2023 ambulatory Alexia L Torsten Facility:[facility] Start: 04-24-2023 End: 04-24-2023 ambulatory Alexia L Torsten Facility:[facility] Start: 03-19-2023 End: 03-19-2023 ambulatory Alexia L Torsten Facility:[facility] Start: 03-19-2023 End: 03-19-2023 Lab Drop off Alexia L Torsten [facility] Start: 03-19-2023 End: 03-19-2023 ambulatory [facility] Start: 03-15-2023 ambulatory [facility] Start: 07-28-2022 End: 07-28-[address] LULU BLANK Facility:[facility] Start: 02-01-2022 End: 02-02-[address] LULU BLANK Facility:[facility] Start: 11-15-2021 Encounter for genera l adult medical examination without abnormal findings DR LULU BLANK [facility] Start: 11-11-2021 End: 11-12-[address] L[facility] BLANK Facility:[facility] Start: 11-11-2021 End: 11-12-2021 Encounter for general adult medical examination without abnormal findings DR LULU BLANK Facility:[facility] Start: 11-10-2021 End: 11-11-2021 ambulatory MAZIN CANO Facility:[facility] Procedures Date Procedure Procedure Detail Performing Clinician Gastric sleeve Alexia Tosrten Comment on above: 2009 Immunizations Immunization Date Immunization Notes Care Provider Fa cility 06-07-2022 influenza virus vacc ine, unspecified formulation Alexia Torsten [facility] 11-12-2020 SARS-CoV-2 (COVID-19 ) mRNA BNT-162b2 vax Alexia Torsten [facility] 10-22-2020 SARS-CoV-2 (COVID-19 ) mRNA BNT-162b2 vax Alexia Torsten [facility] 03-10-2019 pneumococcal polysaccharide vaccine, 23 valent Alexia Torsten [facility] Payers Date Payer Category Payer Unknown 2022 Unknown [id number] 2019 Unknown [id number] 1977 Unknown [id number] 2.16.84 0.1.532486.3.579.2.593 1977 Unknown [id number] 2.16.84 0.1.957261.3.579.2.593 1977 Unknown [id number] 2.16.84 0.1.927417.3.579.2.593 1977 Unknown [id number] 2.16.84 0.1.744774.3.579.2.593 1977 Unknown [id number] 2.16.8 40.1.244942.3.579.2.182 1977 Unknown [id number] 2.16.8 40.1.888772.3.579.2.182 1977 Unknown [id number] 2.16.8 40.1.681454.3.579.2.727 1977 Unknown [id number] 2.16.8 40.1.276755.3.579.2.727 1977 Unknown [id number] 2.16.8 40.1.514665.3.579.2.727 1977 Unknown [id number] 2.16.8 40.1.896082.3.579.2.727 1977 Unknown [id number] 2.16.8 40.1.640047.3.579.2.727 1977 Unknown [id number] 2.16.8 40.1.822411.3.579.2.727 1977 Unknown [id number] 2.16.8 40.1.560644.3.579.2.727 1977 Unknown [id number] 2.16.8 40.1.208480.3.579.2.727 1977 Unknown [id number] 2.16.8 40.1.307660.3.579.2.727 1977 Unknown [id number] 2.16.8 40.1.444948.3.579.2.727 1977 Unknown [id number] 2.16.8 40.1.027486.3.579.2.727 1977 Unknown [id number] 2.16. 840.1.608272.3.579.2.196 1977 Unknown [id number] 2.16. 840.1.787062.3.579.2.196 1977 Unknown [id number] 2.16. 840.1.615225.3.579.2.196 1977 Unknown [id number] 2.16. 840.1.912564.3.579.2.196 1957 Medicare [id number] 1957 Unknown [id number] Social History Date Type Detail Facility Start: 03-19-2023 Tobacco smoking status Ex-smoker (fi nding) [facility] Tobacco smoking status Never Fishe [facility] Sex Assigned At Male [facility] Clinical Note 11-10-2021 Note Date & [...] authenticated by: KELLIE SMALLS Date: 2021-11-10 13:16 [facility] Evaluation + Plan note Note Date & Type [facility] Evaluation + Plan note Future Appointments Appointment Date:04/23/2023 11:00:00 AM Scheduled Provider:Alexia Muhammad Location:[facility] Appointment Type: Open [facility] Hospital course Narrative Note Date & Type Note Facility Hospital course Narrative No data available for this section [facility] Hospital Discharge instructions Note Date & Type Note [facility] Discharge instructions No data available for this section [facility] Progress note Note Date & Type Note Facility Progress note No data available for this section [facility] Summary Purpose Family History No Family [...] section and content) DATE CREATED AUTHOR 01/28/2022 [facility] DATE CREATED AUTHOR AUTHOR'S ORGANIZ ATION 08/10/2022 [facility] DATE CREATED AUTHOR AUTHOR'S ORGANIZ ATION 01/28/2024 [facility] DATE CREATED AUTHOR AUTHOR'S ORGANIZ ATION 02/27/2024 [facility] DATE CREATED AUTHOR AUTHOR'S ORGANIZ ATION 03/03/2024 [facility] Patient Care team informatio n (unrecognized section and content) Personnel Name: Alexia Muhammad Address: Address: [address] [place] [id number] FOR RECORDS PERTAINING TO PATIENTS WHO ARE [...] BE BASED ON THE PRIMARY CLINICAL RECORDS. [facility]. provides no warranty or guarantee of the accuracy or completeness of information in this document.
[2024-03-10 09:49] VITALS: BP 143/94; PULSE 75; TEMP 36.4; O2SAT 98
[2024-03-10 10:26] VITALS: BP 164/100; BP 168/100; PULSE 66; PULSE 68; O2SAT 96
--- NOTE | 2024-03-10 10:26 | W.PM.PROCNOT ---
Date of procedure: 03/10/24 Pre-op diagnosis: Pain due to left sacroiliitis Post-op diagnosis: same as pre-op Procedure: Procedure: Left sacroiliac joint injection Medications: Bupivacaine 0.25% 3cc, kenalog 40mg After informed consent was obtained, the patient was brought to the medical procedure unit and placed in the prone position, when a timeout was completed verifying correct patient, procedure, site, positioning, implant, and/or special equipment.? The skin overlying the area was prepped and draped in standard sterile fashion using alcohol.? A 25-gauge needle was inserted towards the left sacroiliac joint under direct fluoroscopic imaging.? Needle tip was advanced until the joint was encountered.? We instilled a total of 2 mL of solution.? Postoperatively needles were removed.? The patient tolerated the procedure well without complication.? The patient reported reduction in pain symptoms postoperatively. Surgeon: Wilbert Buckner Pathology: none sent Condition: stable Disposition: no change
[2024-03-10] MEDS: LIDOCAINE HCL 2% 400 MG/20 ML MDV INJ (10:27)
[2024-03-10] MEDS: BUPIVACAINE HCL 0.25% PF 25 MG/10 ML VIAL 2 ML INJ (10:29)
[2024-03-10] MEDS: IOHEXOL 240 MG/ML - 10 ML VIAL INJ (10:29)
[2024-03-10] MEDS: TRIAMCINOLONE ACETONIDE 40 MG/ML VIAL INJ (10:30)
== END 2024-03-10 10:29 | disposition home or self-care (01) ==
LOC: SURGOUT 09:12
PROVIDERS: PCP Nurse Practitioner; Visit Provider Anesthesiology
DX: M46.1 Sacroiliitis, not elsewhere classified (principal)
CPT/HCPCS: 27096; J0665; J3301; Q9966

== ENCOUNTER 2024-03-20 08:35 | Outpatient (OUT) | payer BC, MEDICARE, SELFPAY ==
--- NOTE | 2024-03-20 08:41 | P.CN_ITS ---
Consult Note: HPI Data of Consult Patient: known to practice within the last 3 years Consult date: 11/05/23 Requesting Physician: Liliane Garcia NP Primary Care Provider: EFFIE SARMIENTO Consult Narrative Reason for consult: Low back, left hip pain Narrative: 48yom who presents for evaluation. Worsening low back pain. lumbar xray reveals mild to moderate degenerative changes, lumbar MRI consistent with multilevel degenerative changes. Continues in provider directed home exercise course >6 weeks, with minimal relief. Evaluated by NS who recommends bilateral L4-5 L5-S1 facet medial branch blocks working towards RFA for chronic axial back pain, patient recently underwent bilateral L4-5 L5-S1 facet medial branch block #1 with 50% improvement, could not proceed with bilateral L4-5 L5-S1 facet medial branch block #2. Recent left L4-5 L5-S1 TFESI and Left SIJ injection providing 75% improvement ongoing. Pain 3/10 tightness/gripping in left low back/groin. Reports feeling tightness. Stopped tramadol and flexeril as he did not find benefit. Continues to utilize celebrex with benefit, denies SE. Gabapentin 300mg ordered BID but not taking regularly. cc:: CC: Liliane Garcia NP Review of Systems 2 ROS0 Status of ROS 10 or more systems reviewed and unremark able except as noted in history and below Musculoskeletal Reports: back pain and joint pain PFSH PFSH Medical History Osteoarthritis ?M19.90 - Unspecified osteoarthritis, unspecified site (ICD-10) KWAN on CPAP ?G47.33 - Obstructive sleep apnea (adult) (pediatric) (ICD-10) Sleep apnea ?G47.30 - Sleep apnea, unspecified (ICD-10) Meds Home Medications and Allergies Home Medications ?Medication ?Instructions ?Recorded ?Confirmed ?Type celecoxib 200 mg capsule (Celebrex) 200 mg PO BID 11/05/23 03/10/24 History cholecalciferol (vitamin D3) 125 125 mcg PO DAILY 11/05/23 03/10/24 History mcg (5,000 unit) tablet (Vitamin D3) cranberry 400 mg capsule 1,600 mg PO DAILY 11/05/23 03/10/24 History loratadine 10 mg tablet (Claritin) 10 mg PO DAILY 11/05/23 03/10/24 History ascorbic acid (vitamin C) 1,000 mg 1,000 mg PO DAILY 12/03/23 03/10/24 History tablet,extended release (C Complex) orphenadrine citrate 100 mg 100 mg PO BID PRN muscle spasm #10 01/07/24 03/10/24 Rx tablet,extended release tabs paroxetine HCl 10 mg tablet 10 mg PO DAILY 01/07/24 03/10/24 History gabapentin 300 mg capsule mg 02/18/24 History Allergies Allergy/AdvReac Type Severity Reaction Status Date / Time No Known Drug Allergies Allergy Verified 03/10/24 09:50 Exam Constitutional Documenting provider has reviewed patient's vital signs: yes Common normals: no apparent distress, oriented x3, healthy appearing, alert and well nourished General appearance: cooperative HENMT Common normals: normocephalic, hearing grossly normal bilaterally and moist oral mucous membranes Head and scalp: normocephalic Eye Common normals: PERRL Pupil: PERRL Neck & C-Spine Common normals: full ROM General: normal visual inspection Chest Common normals: inspection of chest normal Respiratory Common normals: normal respiratory effort, no retractions and no use of accessory muscles Back & Pelvis Lumbar spine/lower back: ROM limited, pain with ROM and straight leg raise negative bilaterally Sacroiliac joints: SI joints normal Other: left SIJ negative nancy(patricks), gaenslens, thigh thrust, compression test sensation intact BLE, strength 5/5 in BLE chronic left tightness and pain as noted above Back image (male): 2 1. Extremity Common normals: normal to inspection and full ROM Left lower extremity: hip joint Other: mild pain with internal and external log roll Neuro Common normals: oriented x3, CN's II-XII intact bilaterally, moves all extremities, no focal motor deficits, no sensory deficits noted and deep tendon reflexes 2+ bilaterally Sensorium/orientation: alert Motor exam: strength 5/5 throughout and no movement abnormalities noted Psych Common normals: mental status grossly normal, thought process normal, cooperative, affect normal, speech normal and activity/motor behavior normal Speech: normal speech Thought process: normal thought process Results Additional Findings Additional findings: If on a controlled substance or opioids, I have checked an [place] report on this patient and there are no aberrancies noted in the prescribing history.??If on a controlled substance or opioid a drug screen was completed and reviewed within the last year, and if there has not been a drug screen completed we ordered one today to monitor higher risk, state monitored pain medication use. As part of providing excellent, safe, comprehensive care, the following was completed at our patient's visit: 1. A medication reconciliation and review to ensure accurate knowledge of current/active medications, including asking our patients to inform us about any ekch-[id number]-powgjst medications or herbal remedies/nutritional supplements/alternative remedies. 2. A review to specifically ensure our patients have had annual screening for screening for depression, screening for tobacco use, and screening for unhealthy alcohol use. For concerning screenings had a discussion with the patient, provided patient education, and recommended follow-up with primary care provider when appropriate. If patient noted with a risk of falling, they received education on strength, gait, and balance training to prevent future risk of falling. Assessment and Plan Assessment and Plan (1) Lumbar stenosis with neurogenic claudication: (2) Sacroiliitis: (3) Lumbar spondylosis: (4) Chronic left-sided low back pain: (5) Myalgia: Plan left L4/5 L5/S1 TFESI and left SIJ providing 75% improvement in pain and functional ability ongoing PT for chronic left low back pain/myofascial pain gabapentin 300mg BID, can increase if patient taking regularly without benefit. Pt to call to discuss start tizanidine 4-8mg BID PRN Pain/Spasms f/u with NS as needed f/u 3 months, sooner if needed
== END 2024-03-20 08:36 | disposition home or self-care (01) ==
LOC: PM 08:35
PROVIDERS: PCP Nurse Practitioner; Visit Provider Nurse Practitioner
DX: M48.062 Spinal stenosis, lumbar region with neurogenic claudication (principal); M47.816 Spondylosis without myelopathy or radiculopathy, lumbar region; M54.50 Low back pain, unspecified; G89.29 Other chronic pain; M79.10 Myalgia, unspecified site; M46.1 Sacroiliitis, not elsewhere classified
CPT/HCPCS: G0463

== ENCOUNTER 2024-03-25 07:52 | Outpatient (RCR) | payer BC, SELFPAY | END 2024-09-09 15:01 | disposition home or self-care (01) | LOC: PT 07:52 | PROVIDERS: PCP Nurse Practitioner; Visit Provider Nurse Practitioner | DX: M54.50 Low back pain, unspecified (principal); G89.29 Other chronic pain; M79.18 Myalgia, other site | CPT/HCPCS: 97012; 97110; 97112; 97113; 97140; 97162 ==

== ENCOUNTER 2024-06-18 09:19 | Outpatient (OUT) | payer BC, SELFPAY ==
--- OUTSIDE RECORDS SUMMARY | 2024-06-18 09:26 | XMS_ITS | CCD ---
Author Organization [facility] CliniSynv Care Team Providers Care [employer] Name Role Phone MAZIN CANO Admitting Unavailable [...] UGALDE Consulting Unavailable TRAM, FOZIA Admitting Unavailable FOZIA UGALDE Attending Unavailable Torsten, Alexia Sewell Primary Care Physician [phone] TORSTEN, ALEXIA Referring Unavailable TORSTEN, ALEXIA Referring [...] Torsten, Alexia Sewell Attending Unavailable Giedraitis , Andcory Guardado Attending Unavailable Giedraitis , Andrius Guardado Attending Unavailable Gieditis , Andrius Geo Attending Unavailable Gieditis , Andrius Geo Attending Unavailable Gieditis , Andcory Guardado Attending Unavailable Medications Current Medications Medication [...] day(s), # 21 tab(s), Refills(s) 0, Pharmacy: [facility]/pharmacy #[id number], 176.5, cm, 03/19/23 13:15:00 [...] day(s), # 30 tab(s), Refills(s) 0, Pharmacy: [facility]/pharmacy #[id number], 176.5, cm, 03/19/23 13:15:00 [...] Reference Range Facility Operative Reporton Operative Report [id number]#1. 00TIFF Normal [facility] Consultation Noteon 02-20-20 24 Consultation Note [id number]#1 .00TIFF Normal [facility] Consultation Noteon 02-06-20 Consultation Note [id number]#1 .00TIFF Normal [facility] RAD - MRI Reporton RAD - MRI Report [id number]#1 .00TIFF Normal [facility] MRI LUMBAR SPINE WO CONTRAST on [...] compromise. L2-L3: No disc bulge or protrusion. Vptv-fn-hacrfssj facet arthropathy. No significant central canal stenosis. [...] Carson Linares DO 01/24/24 Final result Normal [facility] MRI THORACIC SPINE WO CONTRA STon [...] Carson Linares DO 01/24/24 Final result Normal [facility] Family Medicine Office/Clini c Noteon 01-17-2024 Family Medicine Office/Clinic Note HPI Staff Rose is a 48 year old male presenting for follow up on back pain VENANCIO 01/09/2024 Low back pain with left-sided sciatica was given ketorolac, MRI ordered pt tried to get it done Sunday but couldn't get done they didn't due to wasn't open MRI. MRI order was sent to [facility] in [place]. Pt states the burning sensation from sitting [...] not able to get MRI done at [facility]. is waiting for PA for MRI in [place]. they have an open MRI machine. needs [...] days., # 18 tab(s), Refills(s) 0, Pharmacy: [facility]/pharmacy #[id number], 187.5, cm, 01/16/24 13:46:00 EDT, Height/Length Dosing, 183, kg, 01/16/24 13:4... 3. Non-smoker (Z78.9: Other specified health status) continue not smoking Ordered: predniSONE, = 1 -, Oral, As Directed, Take 3 tabs by mouth daily x3 days, then 2 tabs daily x3 days, then 1 tab daily x3 days., # 18 tab(s), Refills(s) 0, Pharmacy: [facility]/pharmacy #[id number], 187.5, cm, 01/16/24 13:46:00 [...] 03/10/2019 Recorded Normal [facility] Comment on above: Result Comment: Elec tronically Signed By: Alexia Muhammad\.br\Date and Time Signed: 05/09/24 10:47 EDT Ambulatory Visit Summaryon 0 01-16-2024 [...] 1 tab daily x3 days. Pickup at [facility]/pharmacy #[id number] Unchanged cranberry (cranberry oral capsule) See [...] Pain Non-smoker BMI 60.0-69.9, adult Pharmacy Information [id number]: [address], [place] [id number] [phone] Allergies No Known Allergies Problems Ongoing - [...] you for choosing us for your care. [facility] Physician Orderon 01-14-2024 Physician Order [id number]#1 .00TIFF [facility] Provider Letteron 01-14-2024 Provider Letter January 14, 2024 RAKESH PIÑA [address] [place] [id number] : 1975 To Whom It May Concern, Please excuse above patient from work. Date of Illness: From: 01/07/2024 To: 01/16/2024 May Return to Work On: 01/17/2024 Restrictions: None Comments: Sincerely, [address] [address] [facility] Ambulatory Visit Summaryon 0 01-09-2024 Ambulatory [...] [facility] Consenton 01-09-2024 Consent [id number]#1 .00TIFF [facility] ED Note-Physicianon 05-01-20 24 ED Note-Physician [id number]# 1.00TIFF Mariluz [facility] Family Medicine Office/Clini c Noteon 01-09-2024 Family Medicine Office/Clinic Note HPI Staff Rakesh is a 48 year old male presenting for ER follow up ER followup: Hospital: [facility] Visit date: 01/07/24 Symptoms the patient [...] Pain, # 60 tab(s), Refills(s) 0, Pharmacy: [facility]/pharmacy #[id number], 187.5, cm, 01/09/24 10:51:00 [...] Pain, # 60 tab(s), Refills(s) 0, Pharmacy: [facility]/pharmacy #[id number], 187.5, cm, 01/09/24 10:51:00 EDT, Height/Length Dosing, 187.5, kg, 08/23/23 9:30:00 EST, Weight Dosing triamcinolone, 60 mg = 1.5 mL, Injection, IntraMuscular, Once, Stop date 01/09/24 11:20:00 EDT, Routine, Start date 01/09/24 11:20:00 EDT, 01/09/24 11:20:00 EDT Orders: phentermine, 37.5 mg = 1 tab(s), Oral, Daily, # 30 tab(s), Refills(s) 0, Pharmacy: [facility], 176.5, cm, 07/26/23 9:32:00 EST, Height/Length [...] (more content not included)... Normal [facility] Comment on above: Result Comment: Elec tronically Signed By: Alexia Muhammad\.br\Date and Time Signed: 01/09/24 11:25 EDT Physician Orderon 01-09-2024 Physician Order [id number]#1 .00TIFF [facility] Provider Letteron 01-09-2024 Provider Letter January 09, [address] [address] : 1975 To Whom It May Concern, Please excuse above patient from work due to medical Date of Illness: From: _01-08-24 To: _01-14-24 May Return to Work On:01-15-24 Restrictions: _ Comments: _ Sincerely, Family Medicine [address] [address] [facility] RAD - CT Reporton 01-09-2024 RAD - CT Report [id number]#1 .00TIFF [facility] ED Note-Physicianon 01-08-20 ED Note-Physician [id number]#1 .00TIFF [facility] RAD - CT Reporton 01-08-2024 RAD - CT Report [id number]#1 .00TIFF [facility] Operative Reporton Operative Report [id number]#1 .00TIFF [facility] Consultation Noteon 11-07-19 Consultation Note [id number]#1 .00TIFF [facility] PT - Progress Noteson 2023 PT - Progress Notes [id number]#1 .00TIFF [facility] RAD - MISCon 10-29-2023 RAD - MISC [id number]#1 .00TIFF Normal [facility] Retail - Clinical Noteon Retail - Clinical Note [id number]#1 .00TIFF Normal [facility] Plan of Care - PT/OT/Speecho n 09-06-2023 Plan of Care - PT/OT/Speech [id number]#1 .00TIFF Normal [facility] Physician Referralon 023 Physician Referral [id number]# 1.00TIFF Normal [facility] Testost Totalon 08-25-2023 Testosterone [Mass/Vol] 321 ng/dL Invalid Interpretation Code [id number] [facility] Comment on above: Result Comment: Adul t male reference interval is based on a population of healthy nonobese males (BMI <30) between 19 and 39 years old. Iron et.al. JCEM 2017,102;7172-3797. PMID: 91328035. Performed at: [facility] [id number] PhD Domenic Rider Performed By: #### 2 [id number], [id number], [id number] ####[facility] [address] [place] [address] Reminderson 08-24-2023 Reminders - From: Alexia Muhammad [...] detailed message for patient below Normal [facility] Medicine Office/Clini c Noteon 08-23-2023 Family [...] was in slow motion. 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 He would [...] he would like referral to PT at [place] for bakc/leg pain. gabapentin and muscles relaxers did not help. 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 all questions answered. RTC as needed Ordered: cyclobenzaprine, 10 mg = 1 tab(s), Oral, Bedtime, PRN for spasm, # 30 tab(s), Refills(s) 0, Pharmacy: [facility], 176.5, cm, 07/26/23 9:32:00 EST, Height/Length Dosing, 187.2, kg, 07/26/23 9:32:00 EST, Weight Dosing gabapentin, 300 mg = 1 cap(s), Oral, Daily, # 30 cap(s), Refills(s) 0, Pharmacy: [facility], 176.5, cm, 07/26/23 9:32:00 EST, Height/Length Dosing, 187.2, kg, 07/26/23 9:32:00 EST, Weight Dosing 2. Fatigue (R53.83: Other fatigue) labs drawn today Ordered: Lab Specimen Collect [id number] Testosterone Level Total 3. Hypogonadism male (E29.1: Testicular hypofunction) testosterone ordered Ordered: Lab Specimen Collect [id number] Testosterone Level Total 4. BMI 60.0-69.9, adult (Z68.44: Body mass index [BMI] 60.0-69.9, adult) bmi education complete Ordered: cyclobenzaprine, 10 mg = 1 tab(s), Oral, Bedtime, PRN for spasm, # 30 tab(s), Refills(s) 0, Pharmacy: [facility], 176.5, cm, 07/26/23 9:32:00 EST, Height/Length Dosing, 187.2, kg, 07/26/23 9:32:00 EST, Weight Dosing gabapentin, 300 mg = 1 cap(s), Oral, Daily, # 30 cap(s), Refills(s) 0, Pharmacy: [facility], 176.5, cm, 07/26/23 9:32:00 EST, Height/Length Dosing, 187.2, kg, 07/26/23 9:32:00 EST, Weight Dosing Testosterone Level Total Vitamin B12 Level Vitamin D 25 Hydroxy Follow-up No qualifying data available Patient Education Obesity, Adult, Uvjq-dn-Xtrm Problem List/Past Medical History Ongoing Encounter for [...] (more content not included)... Normal [facility] Comment on above: Result Comment: Elec tronically Signed By: Alexia Muhammad\.br\Date and Time Signed: 08/23/23 12:58 EST Patient Educationon 08-23-20 23 Patient Education Gastroenterology Obesity, Adult Obesity is [...] food choices, such as grocery stores and [employer]. What are the signs or symptoms? The [...] How much exercise you get. ? Take ywid-kha-lticbmc and prescription medicines only as told by [...] (more content not included)... Normal [facility] Vit B12on 08-23-2023 Cobalamin (Vitamin B12) [Mass/Vol] 301 pg/mL Normal 50-1500 [facility] Comment on above: Performed By: #### 2 [id number], [id number], [id number] #### [facility] [address] [place] [address] Vitamin D 25 Hydroxyon 08-23 Vitamin D 25 Hydroxy 57.7 ng/mL Normal 30.0-100.0 [facility] Comment on above: Performed By: #### 2 [id number], [id number], [id number] ####[facility] [address] [place] [address] Ambulatory Visit Summaryon 1 09-25-2022 Ambulatory Visit Summary RAKESH PIÑA :1975 Visit Date:07/26/2023 Ambulatory Visit Instructions Your Diagnosis Encounter for weight management Left sciatic nerve pain Numbness and tingling of foot Class 3 obesity Nonsmoker BMI 60.0-69.9, adult Your Care Team Attending Physician - Alexia Muhammad Primary Care Physician - Aleixa Muhammad This Is Your Medications List cranberry [...] 9:20 AM EST With: Alexia Muhammad Where: [facility] Medicine Shanique Normal [facility] Family Medicine Office/Clini c Noteon 07-26-2023 Family Medicine Office/Clinic Note HPI Staff Rakesh is a 48 year old male presenting for 1 month follow up Weight management: Started Phentermine on 03/19/23 Sleeping well:Yes, 6-8 hours Chest pain:No Tremors:No Headaches:No Heart fluttering:No Blurred Vision:No Beginning weight: 473Ibs Previous weight:411.6Ibs/187.6 9kg Today's weight: 187.2kg/411.8lbs Flu: UTD questions/Concerns: Asking for results from neurologist had EMG biljonatan LE's has pain left lower leg. Needs [...] spasm, # 30 tab(s), Refills(s) 0, Pharmacy: [facility], 176.5, cm, 07/26/23 9:32:00 EST, Height/Length Dosing, 187.2, kg, 07/26/23 9:32:00 EST, Weight Dosing gabapentin, 300 mg = 1 cap(s), Oral, Daily, # 30 cap(s), Refills(s) 0, Pharmacy: [facility], 176.5, cm, 07/26/23 9:32:00 EST, Height/Length Dosing, 187.2, kg, 07/26/23 9:32:00 EST, Weight Dosing methylPREDNISolone, = 1 packet(s), Oral, As Directed, as directed on package labeling, X 6 day(s), # 21 tab(s), Refills(s) 0, Pharmacy: [facility], 176.5, cm, 07/26/23 9:32:00 EST, Height/Length [...] spasm, # 30 tab(s), Refills(s) 0, Pharmacy: [facility], 176.5, cm, 07/26/23 9:32:00 EST, Height/Length Dosing, 187.2, kg, 07/26/23 9:32:00 EST, Weight Dosing gabapentin, 300 mg = 1 cap(s), Oral, Daily, # 30 cap(s), Refills(s) 0, Pharmacy: [facility], 176.5, cm, 07/26/23 9:32:00 EST, Height/Length Dosing, 187.2, kg, 07/26/23 9:32:00 EST, Weight Dosing methylPREDNISolone, = 1 packet(s), Oral, As Directed, as directed on package labeling, X 6 day(s), # 21 tab(s), Refills(s) 0, Pharmacy: [facility], 176.5, cm, 07/26/23 9:32:00 EST, Height/Length Dosing, 187.2, kg, 07/26/23 9:32:00 EST, Weight Dosing 3. Numbness and tingling of foot (R20.0: Anesthesia of skin) discussed ENG results Ordered: cyclobenzaprine, 10 mg = 1 tab(s), Oral, Bedtime, PRN for spasm, # 30 tab(s), Refills(s) 0, Pharmacy: [facility], 176.5, cm, 07/26/23 9:32:00 EST, Height/Length Dosing, 187.2, kg, 07/26/23 9:32:00 EST, Weight Dosing gabapentin, 300 mg = 1 cap(s), Oral, Daily, # 30 cap(s), Refills(s) 0, Pharmacy: [facility], 176.5, cm, 07/26/23 9:32:00 EST, Height/Length Dosing, 187.2, kg, 07/26/23 9:32:00 EST, Weight Dosing methylPREDNISolone, = 1 packet(s), Oral, As Directed, as directed on package labeling, X 6 day(s), # 21 tab(s), Refills(s) 0, Pharmacy: [facility], 176.5, cm, 07/26/23 9:32:00 EST, Height/Length Dosing, 187.2, kg, 07/26/23 9:32:00 EST, Weight Dosing 4. Class 3 obesity (E66.01: Morbid (severe) obesity due to excess calories) pt continues with diet Ordered: cyclobenzaprine, 10 mg = 1 tab(s), Oral, Bedtime, PRN for spasm, # 30 tab(s), Refills(s) 0, Pharmacy: [facility], 176.5, cm, 07/26/23 9:32:00 EST, Height/Length Dosing, 187.2, kg, 07/26/23 9:32:00 EST, Weight Dosing gabapentin, 300 mg = 1 cap(s), Oral, Daily, # 30 cap(s), Refills(s) 0, Pharmacy: [facility], 176.5, cm, 07/26/23 9:32:00 EST, Height/Length Dosing, 187.2, kg, 07/26/23 9:32:00 EST, Weight Dosing methylPREDNISolone, = 1 packet(s), Oral, As Directed, as directed on package labeling, X 6 day(s), # 21 tab(s), Refills(s) 0, Pharmacy: [facility], (more content not included)... Normal [facility] Comment on above: Result Comment: Elec tronically Signed By: Alexia Muhammad\.br\Date and Time Signed: 07/26/23 09:54 EST EMG Electromyographyon 07-10 EMG Electromyography [id number]#1 .00TIFF [facility] EMG Electromyography [id number]#1. 00TIFF [facility] Physician Referralon 023 Physician Referral [id number]# 1.00TIFF [facility] Ambulatory Visit Summaryon 1 Ambulatory Visit Summary WANG RAKESH Luis :1975 Visit Date:06/21/2023 Ambulatory Visit Instructions Your [...] 9:20 AM EST With: Alexia Muhammad Where: [facility] Family Medicine Office/Clini c Noteon 06-21-2023 Family [...] day(s), # 30 tab(s), Refills(s) 1, Pharmacy: [facility], 176.5, cm, 06/21/23 9:41:00 EDT, Height/Length Dosing, 186.7, kg, 06/21/23 9:41:00 EDT, Weight Dosing meloxicam, 15 mg = 1 tab(s), Oral, Daily, X 30 day(s), # 30 tab(s), Refills(s) 0, Pharmacy: [facility], 176.5, cm, 06/21/23 9:41:00 EDT, Height/Length Dosing, 186.7, kg, 06/21/23 9:41:00 EDT, Weight Dosing meloxicam, 15 mg = 1 tab(s), Oral, Daily, # 30 tab(s), Refills(s) 1, Pharmacy: [facility], 176.5, cm, 05/22/23 9:51:00 EDT, Height/Length Dosing, 190.2, kg, 05/22/23 9:51:00 EDT, Weight Dosing 2. Left sciatic nerve pain (M54.32: Sciatica, left side) pt continues to have left sciatic nerve pain but it is improved Ordered: meloxicam, 15 mg = 1 tab(s), Oral, Daily, X 30 day(s), # 30 tab(s), Refills(s) 1, Pharmacy: [facility], 176.5, cm, 06/21/23 9:41:00 EDT, Height/Length Dosing, 186.7, kg, 06/21/23 9:41:00 EDT, Weight Dosing meloxicam, 15 mg = 1 tab(s), Oral, Daily, X 30 day(s), # 30 tab(s), Refills(s) 0, Pharmacy: [facility], 176.5, cm, 06/21/23 9:41:00 EDT, Height/Length Dosing, 186.7, kg, 06/21/23 9:41:00 EDT, Weight Dosing meloxicam, 15 mg = 1 tab(s), Oral, Daily, # 30 tab(s), Refills(s) 1, Pharmacy: [facility], 176.5, cm, 05/22/23 9:51:00 EDT, Height/Length Dosing, 190.2, kg, 05/22/23 9:51:00 EDT, Weight Dosing phentermine, 37.5 mg = 1 tab(s), Oral, Daily, X 30 day(s), # 30 tab(s), Refills(s) 0, Pharmacy: [facility], 176.5, cm, 05/22/23 9:51:00 EDT, Height/Length Dosing, 190.2, kg, 05/22/23 9:51:00 EDT, Weight Dosing [facility] [place] Referral 3. Lower extremity numbness (R20.0: Anesthesia of skin) EMG order sent to [facility] in [place] Ordered: [facility] [place] Ambulatory Referral 4. Morbid obesity due to excess calories (E66.01: Morbid (severe) obesity due to excess calories) BMI education complete Ordered: meloxicam, 15 mg = 1 tab(s), Oral, Daily, X 30 day(s), # 30 tab(s), Refills(s) 1, Pharmacy: [facility], 176.5, cm, 06/21/23 9:41:00 EDT, Height/Length Dosing, 186.7, kg, 06/21/23 9:41:00 EDT, Weight Dosing meloxicam, 15 mg = 1 tab(s), Oral, Daily, X 30 day(s), # 30 tab(s), Refills(s) 0, Pharmacy: [facility], 176.5, cm, 06/21/23 9:41:00 EDT, Height/Length Dosing, 186.7, kg, 06/21/23 9:41:00 EDT, Weight Dosing meloxicam, 15 mg = 1 tab(s), Oral, Daily, # 30 tab(s), Refills(s) 1, Pharmacy: [facility], 176.5, cm, 05/22/23 9:51:00 EDT, Height/Length Dosing, 190.2, kg, 05/22/23 9:51:00 EDT, Weight Dosing phentermine, 37.5 mg = 1 tab(s), Oral, Daily, X 30 day(s), # 30 tab(s), Refills(s) 0, Pharmacy: [facility], 176.5, cm, 05/22/23 9:51:00 EDT, Height/Length Dosing, 190.2, kg, 05/22/23 9:51:00 EDT, Weight Dosing 5. BMI 50.0-59.9, adult (Z68.43: Body mass index [BMI] 50.0-59.9, adult) BMI education complete 6. Non-smoker (Z78.9: Other specified health status) continue not smoking Ordered: meloxicam, 15 mg = 1 tab(s), Oral, Daily, X 30 day(s), # 30 tab(s), Refills(s) 1, Pharmacy: [facility], 176.5, cm, 06/21/23 9:41:00 EDT, Height/Length Dosing, 186.7, kg, 06/21/23 9:41:00 EDT, Weight Dosing meloxicam, 15 mg = 1 tab(s), Or (more content not included)... [facility] Comment on above: Result Comment: [...] With: Alexia Muhammad Where: [facility] Ambulatory Visit Summary RAKESH PIÑA :1975 Visit [...] 9:20 AM EDT With: Alexia Muhammad Where: [facility] Normal [facility] Medicine Office/Clini c Noteon 05-22-2023 Family [...] in his legs at night. pt will miner pick some OTC potassium to see if that helps. all questions answered. RTC 4 weeks Ordered: meloxicam, 15 mg = 1 tab(s), Oral, Daily, # 30 tab(s), Refills(s) 1, Pharmacy: [facility], 176.5, cm, 05/22/23 9:51:00 EDT, Height/Length Dosing, 190.2, kg, 05/22/23 9:51:00 EDT, Weight Dosing 2. Left sciatic nerve pain (M54.32: Sciatica, left side) will order antiinflammatory. steroid did not give him any relief Ordered: meloxicam, 15 mg = 1 tab(s), Oral, Daily, # 30 tab(s), Refills(s) 1, Pharmacy: [facility], 176.5, cm, 05/22/23 9:51:00 EDT, Height/Length Dosing, 190.2, kg, 05/22/23 9:51:00 EDT, Weight Dosing phentermine, 37.5 mg = 1 tab(s), Oral, Daily, X 30 day(s), # 30 tab(s), Refills(s) 0 phentermine, 37.5 mg = 1 tab(s), Oral, Daily, X 30 day(s), # 30 tab(s), Refills(s) 0, Pharmacy: [facility], 176.5, cm, 05/22/23 9:51:00 EDT, Height/Length Dosing, 190.2, kg, 05/22/23 9:51:00 EDT, Weight Dosing 3. BMI 60.0-69.9, adult (Z68.44: Body mass index [BMI] 60.0-69.9, adult) BMI education complete Ordered: meloxicam, 15 mg = 1 tab(s), Oral, Daily, # 30 tab(s), Refills(s) 1, Pharmacy: [facility], 176.5, cm, 05/22/23 9:51:00 EDT, Height/Length Dosing, 190.2, kg, 05/22/23 9:51:00 EDT, Weight Dosing 4. Morbid obesity due to excess calories (E66.01: Morbid (severe) obesity due to excess calories) see above Ordered: meloxicam, 15 mg = 1 tab(s), Oral, Daily, # 30 tab(s), Refills(s) 1, Pharmacy: [facility], 176.5, cm, 05/22/23 9:51:00 EDT, Height/Length Dosing, 190.2, kg, 05/22/23 9:51:00 EDT, Weight Dosing phentermine, 37.5 mg = 1 tab(s), Oral, Daily, X 30 day(s), # 30 tab(s), Refills(s) 0 phentermine, 37.5 mg = 1 tab(s), Oral, Daily, X 30 day(s), # 30 tab(s), Refills(s) 0, Pharmacy: [facility], 176.5, cm, 05/22/23 9:51:00 EDT, Height/Length Dosing, 190.2, kg, 05/22/23 9:51:00 EDT, Weight Dosing 5. Non-smoker (Z78.9: Other specified health status) continue not smoking Ordered: meloxicam, 15 mg = 1 tab(s), Oral, Daily, # 30 tab(s), Refills(s) 1, Pharmacy: [facility], 176.5, cm, 05/22/23 9:51:00 EDT, Height/Length Dosing, 190.2, kg, 05/22/23 9:51:00 EDT, Weight Dosing phentermine, 37.5 mg = 1 tab(s), Oral, Daily, X 30 day(s), # 30 tab(s), Refills(s) 0 phentermine, 37.5 mg = 1 tab(s), Oral, Daily, X 30 day(s), # 30 tab(s), Refills(s) 0, Pharmacy: [facility], 176.5, cm, 05/22/23 9:51:00 EDT, Height/Length [...] (more content not included)... Normal [facility] Comment on above: Result Comment: Elec tronically Signed By: Alexia Muhammad\.br\Date and Time Signed: 05/22/23 10:34 EDT Consenton 04-26-2023 Consent [id number] .00CD:127 [facility] Family Medicine Office/Clini c Noteon [...] give kenalog 60mg IM in office today. [facility] Comment on above: Result Comment: Elec tronically Signed By: Alexia Muhammad\.br\Date and Time Signed: 04/24/23 13:42 EDT Ambulatory Visit Summaryon 0 03-19-2023 Ambulatory Visit Summary RAKESH PIÑA Janelle :1975 Visit Date:03/19/2023 Ambulatory Visit Instructions Your [...] 11:00 AM EDT With: Alexia Muhammad Where: [facility] Auto Diffon 03-19-2023 Basophils/100 WBC (Bld) 0.3 % Normal 0.0-2.0 [facility] Comment on above: Order Comment: Order Added by Discern Expert. Performed By: #### 2 [id number], [id number], [id number] ####[address] [place] [address] Basophils/Leukocytes Auto (Bld) [Pure # fraction] 0.0 E9/L Normal 0.0-0.2 [facility] Comment on above: Order Comment: Order Added by Discern Expert. Performed By: #### 2 077209, [id number], [id number], [id number] ####[address] [address] Eosinophils/100 WBC (Bld) 2.1 % Normal 0.0-8.0 [facility] Comment on above: Order Comment: Order Added by Discern Expert. Performed By: #### 2 043008, [id number], 1786260, [id number] ####[address] [address] Eosinophils/Leukocytes Auto (Bld) [Pure # fraction] 0.2 E9/L Normal 0.0-0.5 [facility] Comment on above: Order Comment: Order Added by Nellie Expert. Performed By: #### 2 036358, 7079120, 2806121, [id number] ####[address] [address] Lymphocytes/100 WBC (Bld) 20.5 % Normal 14.0-50.0 [facility] Comment on above: Order Comment: Order Added by Nellie Expert. Performed By: #### 2 660052, [id number], [id number], [id number] ####[address] [address] Lymphocytes/Leukocytes Auto (Bld) [Pure # fraction] 1.6 E9/L Normal 1.0-4.0 [facility] Comment on above: Order Comment: Order Added by Discern Expert. Performed By: #### 2 893692, 2263038, 3499620, [id number], [id number] ####[address] [place] [address] Monocytes/100 WBC (Bld) 8.7 % Normal 4.0-14.0 [facility] Comment on above: Order Comment: Order Added by Discern Expert. Performed By: #### 2 671130, 9642403, 1015683, [id number] ####[address] [place] [address] Monocytes/Leukocytes Auto (Bld) [Pure # fraction] 0.7 E9/L Normal 0.2-1.0 [facility] Comment on above: Order Comment: Order Added by Nellie Expert. Performed By: #### 2 968674, 0740853, 5351940, [id number], [id number] ####[address] [address] Neutrophils/100 WBC (Bld) 68.4 % Normal 36.0-75.0 [facility] Comment on above: Order Comment: Order Added by Nellie Expert. Performed By: #### 2 [id number], [id number], 8060951, 9745563, [id number] ####[address] [address] Neutrophils/Leukocytes Auto (Bld) [Pure # fraction] 5.3 E9/L Normal 2.0-7.5 [facility] Comment on above: Order Comment: Order Added by Discern Expert. Performed By: #### 2 341971, 5986117, 7521192, 2559913, [id number] ####[address] [address] CBC w/ Auto Diffon 3 Erythrocyte distribution width (RBC) [Ratio] 16.3 % High 10.9-14.2 [facility] Comment on above: Performed By: #### 2 179659, 2664907, 5954534, 0274562, [id number] ####[facility] [address] [place] [address] Hematocrit (Bld) [Volume fraction] 43.7 % Normal 37.7-49.0 [facility] Comment on above: Performed By: #### 2 041425, 2744869, 4893393, 4514529, [id number] ####[address] [place] [address] Hemoglobin (Bld) [Mass/Vol] 14.4 g/dL Normal 13.5-17.5 [facility] Comment on above: Performed By: #### 2 550357, 3321795, 6605968, 5715852, [id number] ####[address] [address] MCH (RBC) [Entitic mass] 27.9 pg Normal 27.0-34.0 [facility] Comment on above: Performed By: #### 2 421176, 0010812, 5285959, 3109570, 37460994 ####[address] [address] MCHC (RBC) [Mass/Vol] 33.0 g/dL Normal 31.4-36.0 [facility] Comment on above: Performed By: #### 2 961843, 0262304, 4120882, 6311439, 90009730 ####[address] [address] MCV (RBC) [Entitic vol] 84.8 fL Normal 80.0-100.0 [facility] Comment on above: Performed By: #### 2 957418, 7361368, 5292220, 1034132, 08971579 ####[address] [address] Platelet mean volume (Bld) [Entitic vol] 7.7 fL Normal 6.4-10.8 [facility] Comment on above: Performed By: #### 2 034054, 0446665, 1940911, 2951690, 90351998 ####[facility] [address] [place] [address] Platelets (Bld) [#/Vol] 278.0 E9/L Normal 150.0-500.0 [facility] Comment on above: Performed By: #### 2 889910, 7692223, 1335388, 5452817, 75414517 ####[facility] [address] [place] [address] RBC (Bld) [#/Vol] 5.2 E12/L Normal 4.3-5.9 [facility] Comment on above: Performed By: #### 2 035873, 6680735, 3354109, 4440622, 43355265 ####[facility] [address] [place] [address] WBC corrected for nucl RBC Auto (Bld) [#/Vol] 7.7 E9/L Normal 4.0-11.0 [facility] Comment on above: Performed By: #### 2 841033, 9096329, 5121500, 9576208, 46154311 ####[facility] [address] [place] [address] CHEMISTRYOrdered By: SYSTEM SYSTEM on 03-19-2023 Cholesterol [...] day(s), # 21 tab(s), Refills(s) 0, Pharmacy: [facility]/pharmacy #[id number], 176.5, cm, 03/19/23 13:15:00 EDT, Height/Length Dosing phentermine, 37.5 mg = 1 tab(s), Oral, Daily, # 30 tab(s), Refills(s) 0, Pharmacy: [facility]/pharmacy #[id number], 176.5, cm, 03/19/23 13:15:00 EDT, Height/Length [...] day(s), # 21 tab(s), Refills(s) 0, Pharmacy: [facility]/pharmacy #[id number], 176.5, cm, 03/19/23 13:15:00 EDT, Height/Length Dosing phentermine, 37.5 mg = 1 tab(s), Oral, Daily, # 30 tab(s), Refills(s) 0, Pharmacy: [facility]/pharmacy #[id number], 176.5, cm, 03/19/23 13:15:00 EDT, Height/Length Dosing CBC w/ Auto Diff Cologuard Screening Test Lipid Panel PSA Screen, Total Thyroid Stimulating Hormone 3. Non-smoker (Z78.9: Other specified health status) continue not smoking Ordered: methylPREDNISolone, = 1 packet(s), Oral, As Directed, as directed on package labeling, X 6 day(s), # 21 tab(s), Refills(s) 0, Pharmacy: [facility]/pharmacy #[id number], 176.5, cm, 03/19/23 13:15:00 EDT, Height/Length Dosing phentermine, 37.5 mg = 1 tab(s), Oral, Daily, # 30 tab(s), Refills(s) 0, [id number] 176.5, cm, 03/19/23 13:15:00 EDT, Height/Length Dosing CBC w/ Auto Diff Cologuard Screening Test Lipid Panel PSA Screen, Total Thyroid Stimulating Hormone 4. Left sciatic nerve pain (M54.32: Sciatica, left side) medrol dose pack sent Ordered: methylPREDNISolone, = 1 packet(s), Oral, As Directed, as directed on package labeling, X 6 day(s), # 21 tab(s), Refills(s) 0, [id number] 176.5, cm, 03/19/23 13:15:00 EDT, Height/Length Dosing phentermine, 37.5 mg = 1 tab(s), Oral, Daily, # 30 tab(s), Refills(s) 0, [id number] 176.5, cm, 03/19/23 13:15:00 EDT, Height/Length Dosing Colon cancer screening (Z12.11: (more content not included)... Normal [facility] Comment on above: Result Comment: Elec tronically Signed By: Alexia Muhammad\.br\Date and Time Signed: 03/19/23 14:00 EDT Formson 03-19-2023 Forms [id number]:127 Normal [facility] HEMATOLOGYOrdered By: SYSTEM SYSTEM on 03-19-2023 [...] 7.7 E9/L Normal 4.0 - 11.0 E9/L [facility] HemeAutoSS Lipid Panelon 03-19-2023 Cholesterol [Mass/Vol] 171 mg/dL Normal 120-200 [facility] Comment on above: Performed By: #### 2 449874, 9024889, 2553653, 9720413, 96082468 ####[facility] [address] [place] [address] Cholesterol in HDL [Mass/Vol] 39 mg/dL Invalid Interpretation Code [facility] Comment on above: Result Comment: HDL > or equal to 60 mg/dL: Low cardiovascular risk HDL < 40 mg/dL : High cardiovascular risk Performed By: #### 2 492970, 3969941, 2520009, 6679055, 88614628 ####[facility] [address] [place] [address] Cholesterol in LDL [Mass/Vol] 112 mg/dL Normal <=129 [facility] Comment on above: Performed By: #### 2 004126, 4587878, 5292398, 5861922, 13219645 ####[facility] [address] [place] [address] Cholesterol in VLDL [Mass/Vol] 19 mg/dL Normal 7-40 [facility] Comment on above: Performed By: #### 2 379041, 8925431, 5453031, 2727488, 74524659 ####[facility] [address] [place] [address] Triglyceride [Mass/Vol] 94 mg/dL Normal <=149 [facility] Comment on above: Performed By: #### 2 107477, 9754731, 7693981, 9574893, 82460532 ####[facility] [address] [place] [address] PSA Screen, Totalon 03-19-20 23 Prostate specific Ag [Mass/Vol] 0.9 ng/mL Normal 0.1-3.5 [facility] Comment on above: Result Comment: The concentration of PSA determined by different manufacturers can vary due to differences in assay methods and reagent specificity. Values obtained from different assay methods cannot be used interchangeably. The methodology used for this result was chemiluminescence using [employer] Access Hybritech PSA reagent. Performed By: #### 2 879378, 4553632, 6816794, 4353300, 59523242 ####[facility] [address] [place] [address] TSHon 03-19-2023 TSH Qn 2.03 m[IU]/L Normal 0.34-5.60 [facility] Comment on above: Performed By: #### 2 437093, 0885702, 4111123, 7603623, 97097454 ####[facility] [address] [place] [address] [facility] SARS-CoV-2 (COVID-19) RNA BETHANY+probe Ql (Unsp spec) Not detected Normal NOT DETECTED [facility] Comment on above: Result [...] for this test is supported by the [place] of Health and Human Service's declaration that [...] Performed By: #### C VDTBH #### [facility] [address] [place] [address] Dr. Mynor Yun GROUP A STREP CULTUREon 07-11 S. pyogenes Ag Ql (Unsp spec) Culture Observations: NEGATIVE FOR GROUP A STREPTOCOCCUS. Normal [facility] Comment on above: Performed By: #### G RASTCX #### [facility] [address] [place] [address] Dr. Mynor Yun INFLUENZA A AND B AGon 07-28 INFLUANEGH SEE BELOW Normal [facility] Comment on above: Result Comment: Nega tive for Flu A protein angiten. Infection due to Flu A cannot be ruled out. Flu A angiten in the sample may be below the detection limit of the test. Performed By: #### I NFLUAB #### [facility] [address] [place] [address] Dr. Mynor Yun INFLUBNEGH SEE BELOW Normal [facility] Comment on above: Result Comment: Nega tive for Flu B protein antigen. Infection due to Flu B cannot be ruled out. Flu B antigen in the sample may be below the detection limit of the test. Performed By: #### I NFLUAB #### [facility] [address] [place] [address] Dr. Mynor Yun INFLUENZA A AG Negative Normal NEGATIVE SEE COMMENT [facility] Comment on above: Performed By: #### I NFLUAB #### [facility] [address] [place] [address] Dr. Mynor Yun INFLUENZA B AG Negative Normal NEGATIVE SEE COMMENT [facility] Comment on above: Performed By: #### I NFLUAB #### [facility] [address] [place] [address] Dr. Mynor Yun INTERNAL CONTROLS Within Normal Limits Normal Wi thin Normal Limits [facility] Comment on above: Performed By: #### I NFLUAB #### [facility] [address] [place] [address] Dr. Mynor Yun STREPT SCREENon 07-28-2022 STREP SCREEN A Negative Normal NEGATIVE [facility] Comment on above: Performed By: #### S SCRN #### [facility] [address] [place] [address] Dr. Mynor Yun XR SINUSES 3 VIEWS [...] by: KELLIE SMALLS Date: 2022-02-01 09:58 Normal [facility] HAND LEFT 3 Son 12-29-2021 HAND LEFT 3 S [facility] Department of Radiology [address] [place] [id number] Patient Name: RAKESH PIÑA : 1975 Sex: M Age: Race: White Pt. Location: Patient Status: D Ordered Date: 12/29/2021 11:45:00 AM Completed Date: 12/29/2021 11:50 AM Requesting Provider: LORI DALLAS Attending Provider: LORI DALLAS Report Copy To: Signs & Symptoms: M79.642 Pain in left hand I10 History: Comments: Evaluate Exam: HAND LEFT 3 [facility] HAND LEFT 3 [facility] 12/29/2021 11:50 AM CLINICAL INDICATIONS: M79.642 Pain [...] alignment. Electronically signed: Heather Montana. Transcribed by: [email or web address], User Resident: Electronically Signed by: HEATHER MONTANA @ 12/31/2021 08:55 AM Normal [facility] Comment on above: Order Comment: Evalu ate HAND LEFT 3 VWSon 12-08-2021 HAND LEFT 3 S [facility] Department of Radiology [address] [place] [id number] Patient Name: RAKESH PIÑA : 1975 Sex: M Age: Race: White Pt. Location: Patient Status: D Ordered Date: 12/08/2021 1:25:00 PM Completed Date: 12/08/2021 01:29 PM Requesting Provider: LORI DALLAS Attending Provider: LORI DALLAS Report Copy To: Signs & Symptoms: M79.642 Pain in left hand I10 History: Eros Comments: Evaluate Exam: HAND LEFT 3 S [...] bridging. Electronically signed: Ronaldo Major. Transcribed by: [email or web address], User Resident: Electronically Signed by: RONALDO MAJOR @ 12/09/2021 04:04 PM Normal [facility] Comment on above: Order Comment: Evalu ate HAND LEFT 3 VWSon 11-14-2021 HAND LEFT 3 S [facility] Department of Radiology [address] [place] [id number] Patient Name: RAKESH PIÑA : 1975 [...] fracture. Electronically signed: Ramirez Smith. Transcribed by: [email or web address], User Resident: Electronically Signed by: RAMIREZ Eleazar SMITH @ 11/14/2021 08:02 PM Normal [facility] Comment on above: Order Comment: Views (X-RAY, HAND): PA, Lateral, Oblique TESTOSTERONE, TOTALon 2021 Testosterone [Mass/Vol] 411 ng/dL Normal 264-916 [facility] Comment on above: Result Comment: Adul t male reference interval is based on a population of healthy nonobese males (BMI <30) between 19 and 39 years old. Iron et.al. JCEM 2017,102;2902-6335. PMID: [id number]. Performed By: #### T ESTTOT #### [facility] [address] [place] [address] Dr. Mynor Yun CBC AUTO DIFFon 11-11-2021 BASO # 0.0 103/ul Normal 0.0-0.1 [facility] Comment on above: Performed By: #### C BC #### [facility] [address] [place] [address] Dr. Mynor Yun Basophils/100 WBC (Bld) 0.2 % Normal 0.2-2.0 [facility] Comment on above: Performed By: #### C BC #### [facility] [address] [place] [address] Dr. Mynor Yun EO # 0.1 103/ul Normal 0.0-0.7 [facility] Comment on above: Performed By: #### C BC #### [facility] [address] [place] [address] Dr. Mynor Yun Eosinophils/100 WBC (Bld) 1.2 % Normal 0.9-7.0 [facility] Comment on above: Performed By: #### C BC #### [facility] [address] [place] [address] Dr. Mynor Yun Erythrocyte distribution width (RBC) [Ratio] 14.3 % Normal 11.0-15.0 [facility] Comment on above: Performed By: #### C BC #### [facility] [address] [place] [address] Dr. Mynor Yun Hematocrit (Bld) [Volume fraction] 47.3 % Normal 42.0-54.0 [facility] Comment on above: Performed By: #### C BC #### [facility] [address] [place] [address] Dr. Mynor Yun Hemoglobin (Bld) [Mass/Vol] 15.2 g/dL Normal 14.0-18.0 [facility] Comment on above: Performed By: #### C BC #### [facility] [address] [place] [address] Dr. Mynor Yun IG # 0.03 10e3/ul Normal 0.00-0.03 [facility] Comment on above: Performed By: #### C BC #### [facility] [address] [place] [address] Dr. Mynor Yun IG % 0.3 % Normal 0.0-0.5 [facility] Comment on above: Performed By: #### C BC #### [facility] [address] [place] [address] Dr. Mynor Yun LYMPH # 1.6 103/ul Normal 1.2-3.8 [facility] Comment on above: Performed By: #### C BC #### [facility] [address] [place] [address] Dr. Mynor Yun Lymphocytes/100 WBC (Bld) 18.4 % Critically low 20.5-60.0 [facility] Comment on above: Performed By: #### C BC #### [facility] [address] [place] [address] Dr. Mynor Yun MANUAL DIFF REQ NO Normal [facility] Comment on above: Performed By: #### C BC #### [facility] [address] [place] [address] Dr. Mynor Yun MCH (RBC) [Entitic mass] 28.8 pg Normal 25.9-34.0 [facility] Comment on above: Performed By: #### C BC #### [facility] [address] [address] [address] Mynor Yun MCHC (RBC) [Mass/Vol] 32.1 g/dL Normal 29.9-35.2 [facility] Comment on above: Performed By: #### C BC #### [facility] [address] [place] [address] Dr. Mynor Yun MCV (RBC) [Entitic vol] 89.8 fL Normal 80.0-94.0 [facility] Comment on above: Performed By: #### C BC #### [facility] [address] [place] [address] Dr. Mynor Yun MONO # 0.7 103/ul Normal 0.3-0.8 [facility] Comment on above: Performed By: #### C BC #### [facility] [address] [place] [address] Dr. Mynor Yun Monocytes/100 WBC (Bld) 8.4 % Normal 1.7-12.0 [facility] Comment on above: Performed By: #### C BC #### [facility] [address] [place] [address] Dr. Mynor Yun NEUT # 6.2 103/ul Normal 1.4-6.5 [facility] Comment on above: Performed By: #### C BC #### [facility] [address] [place] [address] Dr. Mynor Yun Neutrophils/100 WBC (Bld) 71.5 % Normal 43.0-75.0 [facility] Comment on above: Performed By: #### C BC #### [facility] [address] [place] [address] Dr. Mynor Yun Platelet mean volume (Bld) [Entitic vol] 8.7 fL Critically low 9.5-13.5 [facility] Comment on above: Performed By: #### C BC #### [facility] [address] [place] [address] Dr. Mynor Yun PLT 263 103/ul Normal 150-450 [facility] Comment on above: Performed By: #### C BC #### [facility] [address] [address] [address] Mynor Yun RBC 5.27 106/ul Normal 4.70-6.10 [facility] Comment on above: Performed By: #### C BC #### [facility] [address] [address] [address] Mynor Yun WBC 8.7 103/ul Normal 4.0-11.0 [facility] Comment on above: Performed By: #### C BC #### [facility] [address] [address] [address] Mynor Yun LIPID PROFILEon 11-11-2021 CHOL-HDL RATIO NORM SEE BELOW Normal [facility] Comment on above: Result Comment: 3.3 - 4.4 LOW RISK 4.4 - 7.1 AVERAGE RISK 7.1 - 11.0 MODERATE RISK >11.0 HIGH RISK Performed By: #### S SCRN #### [facility] [address] [place] [address] Dr. Mynor Yun Cholesterol [Mass/Vol] 129 mg/dL Normal <=200 [facility] Comment on above: Performed By: #### S SCRN #### [facility] [address] [address] [address] Mynor Yun Cholesterol in HDL [Mass/Vol] 34 mg/dL Normal [facility] Comment on above: Performed By: #### S SCRN #### [facility] [address] [address] [address] Mynor Yun Cholesterol in LDL [Mass/Vol] 82.2 mg/dL Normal [facility] Comment on above: Performed By: #### S SCRN #### [facility] [address] [address] [address] Mynor Yun Cholesterol.total/Chol esterol in HDL [Mass ratio] 3.8 {ratio} Normal [facility] Comment on above: Performed By: #### S SCRN #### [facility] [address] [address] [address] Mynor Yun HDL NORMAL > or = 60 mg/dl - LO W CARDIOVASCULAR RISK <40 mg/dl - HIGH CARDIOVASCULAR RISK Normal [facility] Comment on above: Performed By: #### S SCRN #### [facility] [address] [address] [address] Mynor Yun LDL CALC NORMAL SEE BELOW Normal [facility] Comment on above: Result Comment: <100 mg/dl OPTIMAL 100 - 129 mg/dl NEAR OR ABOVE OPTIMAL 130 - 159 mg/dl BORDERLINE HIGH 160 - 189 mg/dl HIGH >190 mg/dl VERY HIGH Performed By: #### S SCRN #### [facility] [address] [address] [address] Mynor Yun Triglyceride [Mass/Vol] 64 mg/dL Normal <=150 [facility] Comment on above: Performed By: #### S SCRN #### [facility] [address] [place] [address] Dr. Mynor Yun VLDL CALC 12.8 mg/dL Normal [facility] Comment on above: Performed By: #### S SCRN #### [facility] [address] [place] [address] Dr. Mynor Yun PROF 14(COMP METB)on 022 Albumin [Mass/Vol] 3.8 g/dL Normal 3.5-5.0 [facility] Comment on above: Performed By: #### T SH, LIPID, CMP #### [facility] [address] [place] [address] Dr. Mynor Yun Albumin/Globulin [Mass ratio] 0.9 {ratio} Normal [facility] Comment on above: Performed By: #### T SH, LIPID, CMP #### [facility] [address] [place] [address] Dr. Mynor Yun ALP [Catalytic activity/Vol] 76 U/L Normal 38-126 [facility] Comment on above: Performed By: #### T SH, LIPID, CMP #### [facility] [address] [place] [address] Dr. Mynor Yun ALT [Catalytic activity/Vol] 49 U/L Normal 21-72 [facility] Comment on above: Performed By: #### T SH, LIPID, CMP #### [facility] [address] [address] [address] Mynor Yun Anion gap [Moles/Vol] 11.2 mmol/L Normal [facility] Comment on above: Performed By: #### T SH, LIPID, CMP #### [facility] [address] [address] [address] Mynor Yun AST [Catalytic activity/Vol] 31 U/L Normal 17-59 [facility] Comment on above: Performed By: #### T SH, LIPID, CMP #### [facility] [address] [address] [address] Mynor Yun Bilirubin [Mass/Vol] 0.5 mg/dL Normal 0.2-1.3 [facility] Comment on above: Performed By: #### T SH, LIPID, CMP #### [facility] [address] [address] [address] Mynor Yun Calcium [Mass/Vol] 9.0 mg/dL Normal 8.4-10.2 [facility] Comment on above: Performed By: #### T SH, LIPID, CMP #### [facility] [address] [address] [address] Mynor Yun Chloride [Moles/Vol] 104 mmol/L Normal 98-107 [facility] Comment on above: Performed By: #### T SH, LIPID, CMP #### [facility] [address] [address] [address] Mynor Yun CO2 [Moles/Vol] 30.6 mmol/L Critically high 22.0-30.0 [facility] Comment on above: Performed By: #### T SH, LIPID, CMP #### [facility] [address] [address] [address] Mynor Yun Creatinine [Mass/Vol] 0.95 mg/dL Normal 0.66-1.25 [facility] Comment on above: Performed By: #### T SH, LIPID, CMP #### [facility] [address] [address] [address] Mynor Yun EGFR-AF SINGAPOREAN >60 Normal >=60 [facility] Comment on above: Performed By: #### T SH, LIPID, CMP #### [facility] [address] [address] [address] Mynor Yun EGFR-NON AF [place]AN >60 Normal >=60 [facility] Comment on above: Performed By: #### T SH, LIPID, CMP #### [facility] [address] [address] [address] Mynor Yun Globulin (S) [Mass/Vol] 4.3 g/dL Normal [facility] Comment on above: Performed By: #### T SH, LIPID, CMP #### [facility] [address] [address] [address] Mynor Yun Glucose [Mass/Vol] 104 mg/dL Normal 74-106 [facility] Comment on above: Performed By: #### T SH, LIPID, CMP #### [facility] [address] [place] [address] Dr. Mynor Yun Potassium [Moles/Vol] 3.8 mmol/L Normal 3.4-5.0 [facility] Comment on above: Performed By: #### T SH, LIPID, CMP #### [facility] [address] [place] [address] Dr. Mynor Yun Protein [Mass/Vol] 8.1 g/dL Normal 6.1-8.2 [facility] Comment on above: Performed By: #### T SH, LIPID, CMP #### [facility] [address] [place] [address] Dr. Mynor Yun Sodium [Moles/Vol] 142 mmol/L Normal 137-145 [facility] [facility] Comment on above: Performed By: #### T SH, LIPID, CMP #### [facility] [address] [place] [address] Dr. Mynor Yun Urea nitrogen [Mass/Vol] 11.0 mg/dL Normal 9.0-20.0 [facility] Comment on above: Performed By: #### T SH, LIPID, CMP #### [facility] [address] [place] [address] Dr. Mynor Yun Urea nitrogen/Creatinine [Mass ratio] 11.6 mg/mg Normal [facility] Comment on above: Performed By: #### T SH, LIPID, CMP #### [facility] [address] [address] [address] Mynor Yun TSHon 11-11-2021 TSH 1.612 uIU/mL Normal 0.470-4.680 [facility] Comment on above: Performed By: #### T SH, LIPID, CMP #### [facility] [address] [address] [address] Mynor Yun TSH RANGE SEE BELOW Normal [facility] Comment on above: Result Comment: <0.3 4 UIU/ml HYPERTHYROID 0.34-5.60 UIU/ml EUTHYROID >5.60 UIU/ml HYPOTHYROID Performed By: #### T SH, LIPID, CMP #### [facility] [address] [address] [address] Mynor Yun Encounters Encounter Date Encounter Type Care Provider Facility Start: 03-10-2024 End: 03-10-2024 ambulatory Wilbert Buckner MD Facility: [facility] Start: 02-25-2024 End: 02-25-2024 ambulatory Wilbert Buckner MD Facility: [facility] Start: 02-18-2024 End: 02-18-2024 ambulatory Wilbert Buckner MD Facility: [facility] Start: 01-23-2024 End: 01-26-2024 ambulatory ALEXIA TORSTEN [facility] Start: 01-16-2024 End: 01-16-2024 ambulatory Alexia L Torsten [facility] Start: 01-14-2024 End: 01-14-2024 ambulatory Alexia L Torsten Facility:[facility] Start: 01-09-2024 End: 01-09-2024 ambulatory Alexia L Torsten Facility:[facility] Start: 12-03-2023 End: 12-03-2023 ambulatory Wilbert Buckner MD Facility: [facility] Start: 11-05-2023 End: 11-05-2023 [facility]ulatory [facility] Start: 08-23-2023 End: 08-23-2023 ambulatory Alexia L Torsten [facility] Start: 07-26-2023 End: 07-26-2023 ambulatory Alexia L Torsten [facility] Start: 06-21-2023 End: 06-21-2023 ambulatory Alexia L Torsten Facility[facility] Start: 05-22-2023 End: 05-22-2023 ambulatory Alexia L Torsten Facility[facility] Start: 04-24-2023 End: 04-24-2023 ambulatory [facility] Start: 03-19-2023 End: 03-19-2023 ambulatory Alexia L Torsten [facility] Start: 03-19-2023 End: 03-19-2023 Lab Drop off Alexia L Torsten [facility] Start: 03-19-2023 End: 03-19-2023 ambulatory Alexia L Torsten Facility:[facility] Start: 03-15-2023 ambulatory Alexia Torsten Facility:[facility] Start: 07-28-2022 End: 07-28-[address] LULU BLANK Facility:[facility] Start: 02-01-2022 End: 02-02-[address] LULU BLANK Facility:[facility] Start: 11-15-2021 Encounter for genera l adult medical examination without abnormal findings DR LULU BLANK [facility] Start: 11-11-2021 End: 11-12-[address] LULU BLANK Facility:[facility] Start: 11-11-2021 End: 11-12-2021 Encounter for general adult medical examination without abnormal findings DR LULU BLANK Facility:[facility] Start: 11-10-2021 End: 11-11-2021 ambulatory MAZIN CANO Facility: Procedures Date Procedure Procedure Detail Performing Clinician Gastric sleeve Alexia Torsten Comment on above: 2010 Immunizations Immunization Date Immunization Notes Care Provider Fa cility 06-07-2022 influenza virus vacc ine, unspecified formulation Alexia Torsten [facility] 11-12-2020 SARS-CoV-2 (COVID-19 ) mRNA BNT-162b2 vax Alexia Torsten [facility] 10-22-2020 SARS-CoV-2 (COVID-19 ) mRNA BNT-162i7 vax Alexia Torsten [facility] 03-10-2019 pneumococcal polysaccharide vaccine, 23 valent Alexia Torsten [facility] Payers Date Payer Category Payer Unknown 2022 Unknown [id number] 2019 Unknown [id number] 2013 Medicare 1975 Unknown [id number] 2.16.84 0.1.034967.3.579.2.593 1977 Unknown [id number] 2.16.84 0.1.165834.3.579.2.593 1977 Unknown [id number] 2.16.84 0.1.320125.3.579.2.593 1977 Unknown [id number] 2.16.84 0.1.066551.3.579.2.593 1977 Unknown [id number] 2.16.8 40.1.908212.3.579.2.182 1977 Unknown [id number] 2.16.8 40.1.341563.3.579.2.182 1977 Unknown [id number] 2.16.8 40.1.548392.3.579.2.727 1977 Unknown [id number] 2.16.8 40.1.363710.3.579.2.727 1977 Unknown [id number] 2.16.8 40.1.398379.3.579.2.727 1977 Unknown [id number] 2.16.8 40.1.075944.3.579.2.727 1977 Unknown [id number] 2.16.8 40.1.578460.3.579.2.727 1977 Unknown [id number] 2.16.8 40.1.169637.3.579.2.727 1977 Unknown [id number] 2.16.8 40.1.947719.3.579.2.727 1977 Unknown [id number] 2.16.8 40.1.143243.3.579.2.727 1977 Unknown [id number] 2.16.8 40.1.190047.3.579.2.727 1977 Unknown [id number] 2.16.8 40.1.649408.3.579.2.727 1977 Unknown [id number] 2.16.8 40.1.305060.3.579.2.727 1977 Unknown [id number] 2.16. 840.1.432715.3.579.2.196 1977 Unknown [id number] 2.16. 840.1.616978.3.579.2.196 1977 Unknown [id number] 2.16. 840.1.367896.3.579.2.196 1977 Unknown [id number] 2.16. 840.1.075563.3.579.2.196 1977 Unknown [id number] 2.16. 840.1.202758.3.579.2.196 1957 Medicare [id number] 1957 Unknown [id number] Social History Date Type Detail Facility Start: 03-19-2023 Tobacco smoking status Ex-smoker (fi nding) [facility] Tobacco smoking status Never [facility] Sex Assigned At Male [facility] Clinical Note 11-10-2021 Note Date & [...] authenticated by: KELLIE SMALLS Date: 2021-11-10 13:16 [facility] Evaluation + Plan note Note Date & Type [facility] Evaluation + Plan note Future Appointments Appointment Date:04/23/2023 11:00:00 AM Scheduled Provider:Alexia Muhammad Location:[facility] Appointment Type: Open [facility] Hospital course Narrative Note Date & Type Note Facility Hospital course Narrative No data available for this section [facility] Hospital Discharge instructions Note Date & Type Note Facility Hospital Discharge instructions No data available for this section [facility] Progress note Note Date & Type Note Facility Progress note No data available for this section [facility] Summary Purpose Family History No Family [...] section and content) DATE CREATED AUTHOR 01/28/2022 [facility] DATE CREATED AUTHOR AUTHOR'S ORGANIZ ATION 08/10/2022 [facility] DATE CREATED AUTHOR AUTHOR'S ORGANIZ ATION 01/28/2024 [facility] DATE CREATED AUTHOR AUTHOR'S ORGANIZ ATION 02/27/2024 [facility] DATE CREATED AUTHOR AUTHOR'S ORGANIZ ATION 03/13/2024 [facility] Patient Care team informatio n (unrecognized section and content) Personnel Name: Alexia Muhammad Address: Address: [address] [place] [id number]- FOR RECORDS PERTAINING TO PATIENTS WHO ARE [...] BE BASED ON THE PRIMARY CLINICAL RECORDS. [facility]. provides no warranty or guarantee of the accuracy or completeness of information in this document.
--- NOTE | 2024-06-18 09:38 | P.CN_ITS ---
Consult Note: HPI Data of Consult Patient: known to practice within the last 3 years Consult date: 11/05/23 Requesting Physician: Liliane Garcia NP Primary Care Provider: EFFIE SARMIENTO Consult Narrative Reason for consult: Low back, left hip pain Narrative: 48yom who presents for evaluation. Worsening low back pain. lumbar xray reveals mild to moderate degenerative changes, left hip xray reveals OA, lumbar MRI consistent with multilevel degenerative changes. Continues in provider directed home exercise course >6 weeks, with minimal relief. Evaluated by NS who recommends bilateral L4-5 L5-S1 facet medial branch blocks working towards RFA for chronic axial back pain, he previously underwent bilateral L4-5 L5-S1 facet medial branch block #1 with 50% improvement, could not proceed with bilateral L4-5 L5-S1 facet medial branch block #2. Previous left L4-5 L5-S1 TFESI and Left SIJ injection providing 75% improvement greater than 3 monts. previous left hip injection >50% improvement for 6 months. Pain 7/10 pulling pinching to left hip and groin. Stopped tramadol, gabapentin and flexeril as he did not find benefit. Continues to utilize celebrex with benefit, denies SE. failed tizanidine. cc:: CC: Liliane Garcia NP Review of Systems ROS Status of ROS 10 or more systems reviewed and unremark able except as noted in history and below Musculoskeletal Reports: extremity pain and joint pain PFSH PFSH Medical History Osteoarthritis ?M19.90 - Unspecified osteoarthritis, unspecified site (ICD-10) KWAN on CPAP ?G47.33 - Obstructive sleep apnea (adult) (pediatric) (ICD-10) Sleep apnea ?G47.30 - Sleep apnea, unspecified (ICD-10) Meds Home Medications and Allergies Home Medications ?Medication ?Instructions ?Recorded ?Confirmed ?Type celecoxib 200 mg capsule (Celebrex) 200 mg PO BID 11/05/23 03/10/24 History cholecalciferol (vitamin D3) 125 125 mcg PO DAILY 11/05/23 03/10/24 History mcg (5,000 unit) tablet (Vitamin D3) cranberry 400 mg capsule 1,600 mg PO DAILY 11/05/23 03/10/24 History loratadine 10 mg tablet (Claritin) 10 mg PO DAILY 11/05/23 03/10/24 History ascorbic acid (vitamin C) 1,000 mg 1,000 mg PO DAILY 12/03/23 03/10/24 History tablet,extended release (C Complex) orphenadrine citrate 100 mg 100 mg PO BID PRN muscle spasm #10 01/07/24 03/10/24 Rx tablet,extended release tabs paroxetine HCl 10 mg tablet 10 mg PO DAILY 01/07/24 03/10/24 History gabapentin 300 mg capsule mg 02/18/24 History Allergies Allergy/AdvReac Type Severity Reaction Status Date / Time No Known Drug Allergies Allergy Verified 03/10/24 09:50 Exam Constitutional Documenting provider has reviewed patient's vital signs: yes Common normals: no apparent distress, oriented x3, healthy appearing, alert and well nourished General appearance: cooperative HENMT Common normals: normocephalic, hearing grossly normal bilaterally and moist oral mucous membranes Head and scalp: normocephalic Eye Common normals: PERRL Pupil: PERRL Neck & C-Spine Common normals: full ROM General: normal visual inspection Chest Common normals: inspection of chest normal Respiratory Common normals: normal respiratory effort, no retractions and no use of accessory muscles Back & Pelvis Lumbar spine/lower back: normal to inspection, lumbar ROM normal and straight leg raise negative bilaterally Sacroiliac joints: SI joint(s) abnormal Other: left SIJ positive nancy(patricks), gaenslens, thigh thrust, compression test sensation intact BLE, strength 5/5 in BLE Extremity Common normals: normal to inspection and full ROM Left lower extremity: hip joint Other: moderate pain with internal and external log roll Neuro Common normals: oriented x3, CN's II-XII intact bilaterally, moves all extremities, no focal motor deficits, no sensory deficits noted and deep tendon reflexes 2+ bilaterally Sensorium/orientation: alert Motor exam: strength 5/5 throughout and no movement abnormalities noted Psych Common normals: mental status grossly normal, thought process normal, cooperative, affect normal, speech normal and activity/motor behavior normal Speech: normal speech Thought process: normal thought process Results Additional Findings Additional findings: If on a controlled substance or opioids, I have checked an [place] report on this patient and there are no aberrancies noted in the prescribing history.??If on a controlled substance or opioid a drug screen was completed and reviewed within the last year, and if there has not been a drug screen completed we ordered one today to monitor higher risk, state monitored pain medication use. As part of providing excellent, safe, comprehensive care, the following was completed at our patient's visit: 1. A medication reconciliation and review to ensure accurate knowledge of current/active medications, including asking our patients to inform us about any [id number] medications or herbal remedies/nutritional supplements/alter wales remedies. 2. A review to specifically ensure our patients have had annual screening for screening for depression, screening for tobacco use, and screening for unhealthy alcohol use. For concerning screenings had a discussion with the patient, provided patient education, and recommended follow-up with primary care provider when appropriate. If patient noted with a risk of falling, they received education on strength, gait, and balance training to prevent future risk of falling. Assessment and Plan Assessment and Plan (1) Osteoarthritis of left hip: Qualifiers: Osteoarthritis type: primary Qualified Code(s): M16.12 - Unilateral primary osteoarthritis, left hip (2) Lumbar stenosis with neurogenic claudication: (3) Sacroiliitis: (4) Lumbar spondylosis: Plan stop tizanidine, start baclofen 10mg BID PRN pain/spasms repeat left hip injection under fluoroscopy, previous injection provided >50% improvement for 3 months continue PT and HEP as tolerated f/u 2 weeks after injection
== END 2024-06-18 09:20 | disposition home or self-care (01) ==
LOC: PM 09:19
PROVIDERS: PCP Nurse Practitioner; Visit Provider Nurse Practitioner
DX: M16.12 Unilateral primary osteoarthritis, left hip (principal); M48.062 Spinal stenosis, lumbar region with neurogenic claudication; M46.1 Sacroiliitis, not elsewhere classified; M47.816 Spondylosis without myelopathy or radiculopathy, lumbar region
CPT/HCPCS: G0463

== ENCOUNTER 2024-06-30 08:58 | Day surgery (SDC) | payer BC, SELFPAY ==
--- OUTSIDE RECORDS SUMMARY | 2024-06-30 09:15 | XMS_ITS | CCD ---
Author Organization [facility] CliniSywv Care Team Providers Care Certified Adapted Physical Educator Name Role Phone MAZIN CANO Admitting Unavailable [...] Consulting Unavailable TRAM, FOZIA Admitting Unavailable FOZIA UGALED Attending Unavailable Torsten, Alexia Sewell Primary Care Physician TORSTEN, ALEXIA Referring Unavailable TORSTEN, ALEXIA Referring [...] day(s), # 21 tab(s), Refills(s) 0, Pharmacy: [facility]/pharmacy #[id number], 176.5, cm, 03/19/23 13:15:00 EDT, Height/Length [...] day(s), # 30 tab(s), Refills(s) 0, Pharmacy: [facility]/pharmacy #[id number], 176.5, cm, 03/19/23 13:15:00 EDT, Height/Length [...] Reference Range Facility Operative Reporton Operative Report [id number]#1. 00TIFF Normal [facility] Consultation Noteon 02-20-20 24 Consultation Note [id number]#1 .00TIFF Normal [facility] Consultation Noteon 02-06-20 Consultation Note [id number]#1 .00TIFF Normal [facility] RAD - MRI Reporton RAD - MRI Report [id number]#1 .00TIFF Normal [facility] MRI LUMBAR SPINE WO CONTRAST [...] compromise. L2-L3: No disc bulge or protrusion. Lezu-ji-jzyosmry facet arthropathy. No significant central canal stenosis. [...] Carson Linares DO 01/24/24 Final result Normal [facility] MRI THORACIC SPINE WO CONTRA [...] Carson Linares DO 01/24/24 Final result Normal [facility] Family Medicine Office/Clini c Noteon [...] open MRI. MRI order was sent to [facility] in [place]. Pt states the burning sensation from sitting [...] not able to get MRI done at [facility]. is waiting for PA for MRI in [place]. they have an open MRI machine. needs [...] days., # 18 tab(s), Refills(s) 0, Pharmacy: [facility]/pharmacy #[id number], 187.5, cm, 01/16/24 13:46:00 EDT, Height/Length Dosing, 183, kg, 01/16/24 13:4... 3. Non-smoker (Z78.9: Other specified health status) continue not smoking Ordered: predniSONE, = 1 -, Oral, As Directed, Take 3 tabs by mouth daily x3 days, then 2 tabs daily x3 days, then 1 tab daily x3 days., # 18 tab(s), Refills(s) 0, Pharmacy: [facility]/pharmacy #[id number], 187.5, cm, 01/16/24 13:46:00 EDT, Height/Length [...] pneumococcal 23-valent vaccine 03/10/2019 Recorded Normal [facility] Comment on above: Result Comment: [...] 1 tab daily x3 days. Pickup at [facility]/pharmacy #6177 Unchanged cranberry (cranberry oral capsule) See [...] adult Pharmacy Information [id number]: [address], [place] [id number] [phone] Allergies No Known Allergies Problems Ongoing - [...] you for choosing us for your care. [facility] Physician Orderon 01-14-2024 Physician Order [id number]#1 .00TIFF [facility] Provider Letteron 01-14-2024 Provider Letter January 14, 2024 RAKESH PIÑA [address] [place] [id number] : 1975 To Whom It May Concern, Please excuse above patient from work. Date of Illness: From: 01/07/2024 To: 01/16/2024 May Return to Work On: 01/17/2024 Restrictions: None Comments: Sincerely, [address] [address] [facility] Ambulatory Visit Summaryon 0 01-09-2024 Ambulatory [...] 11:20 AM EDT With: Alexia Muhammad Where: [facility] Consenton 01-09-2024 Consent [id number]#1 .00TIFF [facility] ED Note-Physicianon 05-01-20 24 ED Note-Physician [id number]# 1.00TIFF Mariluz [facility] Family Medicine Office/Clini c Noteon 01-09-2024 Family Medicine Office/Clinic Note HPI Staff Rakesh is a 48 year old male presenting for ER follow up ER followup: Hospital: [facility] Visit date: 01/07/24 Symptoms the patient presented [...] Pain, # 60 tab(s), Refills(s) 0, Pharmacy: [facility]/pharmacy #[id number], 187.5, cm, 01/09/24 10:51:00 EDT, Height/Length [...] Pain, # 60 tab(s), Refills(s) 0, Pharmacy: [facility]/pharmacy #[id number], 187.5, cm, 01/09/24 10:51:00 EDT, Height/Length Dosing, 187.5, kg, 08/23/23 9:30:00 EST, Weight Dosing triamcinolone, 60 mg = 1.5 mL, Injection, IntraMuscular, Once, Stop date 01/09/24 11:20:00 EDT, Routine, Start date 01/09/24 11:20:00 EDT, 01/09/24 11:20:00 EDT Orders: phentermine, 37.5 mg = 1 tab(s), Oral, Daily, # 30 tab(s), Refills(s) 0, Pharmacy: [facility], 176.5, cm, 07/26/23 9:32:00 EST, Height/Length [...] Social Hi (more content not included)... Normal [facility] Comment on above: Result Comment: Elec tronically Signed By: Alexia Muhammad\.br\Date and Time Signed: 01/09/24 11:25 EDT Physician Orderon 01-09-2024 Physician Order [id number]#1 .00TIFF [facility] Provider Letteron 01-09-2024 Provider Letter January 09, [address] [id number] : 1975 To Whom It May Concern, Please excuse above patient from work due to medical Date of Illness: From: _01-08-24 To: _01-14-24 May Return to Work On:01-15-24 Restrictions: _ Comments: _ Sincerely, Family Medicine [address] [address] [facility] RAD - CT Reporton 01-09-2024 RAD - CT Report [id number]#1 .00TIFF [facility] ED Note-Physicianon 01-08-20 ED Note-Physician [id number]#1 .00TIFF [facility] RAD - CT Reporton 01-08-2024 RAD - CT Report [id number]#1 .00TIFF [facility] Operative Reporton Operative Report [id number]#1 .00TIFF [facility] Consultation Noteon 11-07-19 Consultation Note [id number]#1 .00TIFF [facility] PT - Progress Noteson 2023 PT - Progress Notes [id number]#1 .00TIFF [facility] RAD - MISCon 10-29-2023 RAD - MISC [id number]#1 .00TIFF Normal [facility] Retail - Clinical Noteon Retail - Clinical Note [id number]#1 .00TIFF Normal [facility] Plan of Care - PT/OT/Speecho n 09-06-2023 Plan of Care - PT/OT/Speech [id number]#1 .00TIFF Normal [facility] Physician Referralon 023 Physician Referral [id number]# 1.00TIFF Normal [facility] Testost Totalon 08-25-2023 Testosterone [Mass/Vol] 321 ng/dL Invalid Interpretation Code [id number] [facility] Comment on above: Result Comment: Adul t male reference interval is based on a population of healthy nonobese males (BMI <30) between 19 and 39 years old. Iron et.al. JCEM 2017,102;0861-4072. PMID: 39385238. Performed at: [facility] [id number] PhD Domenic Rider Performed By: #### 2 [id number], [id number], [id number] ####[facility] [id number] [place] [address] Reminderson 08-24-2023 Reminders - From: Alexia Muhammad [...] in slow motion. 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 He would [...] he would like referral to PT at [place] for bakc/leg pain. gabapentin and muscles relaxers did not help. 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 all questions answered. RTC as needed Ordered: cyclobenzaprine, 10 mg = 1 tab(s), Oral, Bedtime, PRN for spasm, # 30 tab(s), Refills(s) 0, Pharmacy: [facility], 176.5, cm, 07/26/23 9:32:00 EST, Height/Length Dosing, 187.2, kg, 07/26/23 9:32:00 EST, Weight Dosing gabapentin, 300 mg = 1 cap(s), Oral, Daily, # 30 cap(s), Refills(s) 0, Pharmacy: [facility], 176.5, cm, 07/26/23 9:32:00 EST, Height/Length Dosing, 187.2, kg, 07/26/23 9:32:00 EST, Weight Dosing 2. Fatigue (R53.83: Other fatigue) labs drawn today Ordered: Lab Specimen Collect [id number] Testosterone Level Total 3. Hypogonadism male (E29.1: Testicular hypofunction) testosterone ordered Ordered: Lab Specimen Collect [id number] Testosterone Level Total 4. BMI 60.0-69.9, adult (Z68.44: Body mass index [BMI] 60.0-69.9, adult) bmi education complete Ordered: cyclobenzaprine, 10 mg = 1 tab(s), Oral, Bedtime, PRN for spasm, # 30 tab(s), Refills(s) 0, Pharmacy: [facility], 176.5, cm, 07/26/23 9:32:00 EST, Height/Length Dosing, 187.2, kg, 07/26/23 9:32:00 EST, Weight Dosing gabapentin, 300 mg = 1 cap(s), Oral, Daily, # 30 cap(s), Refills(s) 0, Pharmacy: [facility], 176.5, cm, 07/26/23 9:32:00 EST, Height/Length Dosing, 187.2, kg, 07/26/23 9:32:00 EST, Weight Dosing Testosterone Level Total Vitamin B12 Level Vitamin D 25 Hydroxy Follow-up No qualifying data available Patient Education Obesity, Adult, Ckpf-dy-Uiiw Problem List/Past Medical History Ongoing Encounter for [...] ago Tob (more content not included)... Normal [facility] Comment on above: [...] food choices, such as grocery stores and [employer]. What are the signs or symptoms? The [...] How much exercise you get. ? Take zifj-uip-kjpxaes and prescription medicines only as told by [...] with yo (more content not included)... Normal [facility] Vit B12on 08-23-2023 Cobalamin (Vitamin B12) [Mass/Vol] 301 pg/mL Normal 50-1500 [facility] Comment on above: Performed By: #### 2 [id number], [id number], [id number] #### [facility] [address] [place] [address] Vitamin D 25 Hydroxyon 08-23 Vitamin D 25 Hydroxy 57.7 ng/mL Normal 30.0-100.0 [facility] Comment on above: Performed By: #### 2 [id number], [id number], [id number] ####[facility] [address] [place] [address] Ambulatory Visit Summaryon 1 09-25-2022 Ambulatory Visit [...] EST With: Alexia Muhammad Where: [facility] Shanique Normal [facility] Family Medicine Office/Clini c [...] Asking for results from neurologist had EMG biljonaatn LE's has pain left lower leg. Needs [...] spasm, # 30 tab(s), Refills(s) 0, Pharmacy: [facility], 176.5, cm, 07/26/23 9:32:00 EST, Height/Length Dosing, 187.2, kg, 07/26/23 9:32:00 EST, Weight Dosing gabapentin, 300 mg = 1 cap(s), Oral, Daily, # 30 cap(s), Refills(s) 0, Pharmacy: [facility], 176.5, cm, 07/26/23 9:32:00 EST, Height/Length Dosing, 187.2, kg, 07/26/23 9:32:00 EST, Weight Dosing methylPREDNISolone, = 1 packet(s), Oral, As Directed, as directed on package labeling, X 6 day(s), # 21 tab(s), Refills(s) 0, Pharmacy: [facility], 176.5, cm, 07/26/23 9:32:00 EST, Height/Length [...] spasm, # 30 tab(s), Refills(s) 0, Pharmacy: [facility], 176.5, cm, 07/26/23 9:32:00 EST, Height/Length Dosing, 187.2, kg, 07/26/23 9:32:00 EST, Weight Dosing gabapentin, 300 mg = 1 cap(s), Oral, Daily, # 30 cap(s), Refills(s) 0, Pharmacy: [facility], 176.5, cm, 07/26/23 9:32:00 EST, Height/Length Dosing, 187.2, kg, 07/26/23 9:32:00 EST, Weight Dosing methylPREDNISolone, = 1 packet(s), Oral, As Directed, as directed on package labeling, X 6 day(s), # 21 tab(s), Refills(s) 0, Pharmacy: [facility], 176.5, cm, 07/26/23 9:32:00 EST, Height/Length Dosing, 187.2, kg, 07/26/23 9:32:00 EST, Weight Dosing 3. Numbness and tingling of foot (R20.0: Anesthesia of skin) discussed ENG results Ordered: cyclobenzaprine, 10 mg = 1 tab(s), Oral, Bedtime, PRN for spasm, # 30 tab(s), Refills(s) 0, Pharmacy: [facility], 176.5, cm, 07/26/23 9:32:00 EST, Height/Length Dosing, 187.2, kg, 07/26/23 9:32:00 EST, Weight Dosing gabapentin, 300 mg = 1 cap(s), Oral, Daily, # 30 cap(s), Refills(s) 0, Pharmacy: [facility], 176.5, cm, 07/26/23 9:32:00 EST, Height/Length Dosing, 187.2, kg, 07/26/23 9:32:00 EST, Weight Dosing methylPREDNISolone, = 1 packet(s), Oral, As Directed, as directed on package labeling, X 6 day(s), # 21 tab(s), Refills(s) 0, Pharmacy: [facility], 176.5, cm, 07/26/23 9:32:00 EST, Height/Length Dosing, 187.2, kg, 07/26/23 9:32:00 EST, Weight Dosing 4. Class 3 obesity (E66.01: Morbid (severe) obesity due to excess calories) pt continues with diet Ordered: cyclobenzaprine, 10 mg = 1 tab(s), Oral, Bedtime, PRN for spasm, # 30 tab(s), Refills(s) 0, Pharmacy: [facility], 176.5, cm, 07/26/23 9:32:00 EST, Height/Length Dosing, 187.2, kg, 07/26/23 9:32:00 EST, Weight Dosing gabapentin, 300 mg = 1 cap(s), Oral, Daily, # 30 cap(s), Refills(s) 0, Pharmacy: [facility], 176.5, cm, 07/26/23 9:32:00 EST, Height/Length Dosing, 187.2, kg, 07/26/23 9:32:00 EST, Weight Dosing methylPREDNISolone, = 1 packet(s), Oral, As Directed, as directed on package labeling, X 6 day(s), # 21 tab(s), Refills(s) 0, Pharmacy: [facility], (more content not included)... Normal [facility] Comment on above: Result Comment: Elec tronically Signed By: Alexia Muhammad\.br\Date and Time Signed: 07/26/23 09:54 EST [facility] Electromyographyon 07-10 [facility] Electromyography [id number]#1 .00TIFF [facility] Electromyography [id number]#1. 00TIFF [facility] Physician Referralon 023 Physician Referral [id number]# 1.00TIFF [facility] Ambulatory Visit Summaryon 1 Ambulatory Visit Summary [...] 9:20 AM EST With: Alexia Muhammad Where: [facility] Family Medicine Office/Clini c Noteon 06-21-2023 [...] day(s), # 30 tab(s), Refills(s) 1, Pharmacy: [facility], 176.5, cm, 06/21/23 9:41:00 EDT, Height/Length Dosing, 186.7, kg, 06/21/23 9:41:00 EDT, Weight Dosing meloxicam, 15 mg = 1 tab(s), Oral, Daily, X 30 day(s), # 30 tab(s), Refills(s) 0, Pharmacy: [facility], 176.5, cm, 06/21/23 9:41:00 EDT, Height/Length Dosing, 186.7, kg, 06/21/23 9:41:00 EDT, Weight Dosing meloxicam, 15 mg = 1 tab(s), Oral, Daily, # 30 tab(s), Refills(s) 1, Pharmacy: [facility], 176.5, cm, 05/22/23 9:51:00 EDT, Height/Length Dosing, 190.2, kg, 05/22/23 9:51:00 EDT, Weight Dosing 2. Left sciatic nerve pain (M54.32: Sciatica, left side) pt continues to have left sciatic nerve pain but it is improved Ordered: meloxicam, 15 mg = 1 tab(s), Oral, Daily, X 30 day(s), # 30 tab(s), Refills(s) 1, Pharmacy: [facility], 176.5, cm, 06/21/23 9:41:00 EDT, Height/Length Dosing, 186.7, kg, 06/21/23 9:41:00 EDT, Weight Dosing meloxicam, 15 mg = 1 tab(s), Oral, Daily, X 30 day(s), # 30 tab(s), Refills(s) 0, Pharmacy: [facility], 176.5, cm, 06/21/23 9:41:00 EDT, Height/Length Dosing, 186.7, kg, 06/21/23 9:41:00 EDT, Weight Dosing meloxicam, 15 mg = 1 tab(s), Oral, Daily, # 30 tab(s), Refills(s) 1, Pharmacy: [facility], 176.5, cm, 05/22/23 9:51:00 EDT, Height/Length Dosing, 190.2, kg, 05/22/23 9:51:00 EDT, Weight Dosing phentermine, 37.5 mg = 1 tab(s), Oral, Daily, X 30 day(s), # 30 tab(s), Refills(s) 0, Pharmacy: [facility], 176.5, cm, 05/22/23 9:51:00 EDT, Height/Length Dosing, 190.2, kg, 05/22/23 9:51:00 EDT, Weight Dosing [facility] External Ambulatory Referral 3. Lower extremity numbness (R20.0: Anesthesia of skin) EMG order sent to [facility] in [place] Ordered: [facility] External Ambulatory Referral 4. Morbid obesity due to excess calories (E66.01: Morbid (severe) obesity due to excess calories) BMI education complete Ordered: meloxicam, 15 mg = 1 tab(s), Oral, Daily, X 30 day(s), # 30 tab(s), Refills(s) 1, Pharmacy: [facility], 176.5, cm, 06/21/23 9:41:00 EDT, Height/Length Dosing, 186.7, kg, 06/21/23 9:41:00 EDT, Weight Dosing meloxicam, 15 mg = 1 tab(s), Oral, Daily, X 30 day(s), # 30 tab(s), Refills(s) 0, Pharmacy: [facility], 176.5, cm, 06/21/23 9:41:00 EDT, Height/Length Dosing, 186.7, kg, 06/21/23 9:41:00 EDT, Weight Dosing meloxicam, 15 mg = 1 tab(s), Oral, Daily, # 30 tab(s), Refills(s) 1, Pharmacy: [facility], 176.5, cm, 05/22/23 9:51:00 EDT, Height/Length Dosing, 190.2, kg, 05/22/23 9:51:00 EDT, Weight Dosing phentermine, 37.5 mg = 1 tab(s), Oral, Daily, X 30 day(s), # 30 tab(s), Refills(s) 0, Pharmacy: [facility], 176.5, cm, 05/22/23 9:51:00 EDT, Height/Length Dosing, 190.2, kg, 05/22/23 9:51:00 EDT, Weight Dosing 5. BMI 50.0-59.9, adult (Z68.43: Body mass index [BMI] 50.0-59.9, adult) BMI education complete 6. Non-smoker (Z78.9: Other specified health status) continue not smoking Ordered: meloxicam, 15 mg = 1 tab(s), Oral, Daily, X 30 day(s), # 30 tab(s), Refills(s) 1, Pharmacy: [facility], 176.5, cm, 06/21/23 9:41:00 EDT, Height/Length Dosing, 186.7, kg, 06/21/23 9:41:00 EDT, Weight Dosing meloxicam, 15 mg = 1 tab(s), Or (more content not included)... [facility] Comment on above: Result Comment: Elec [...] 9:20 AM EDT With: Alexia Muhammad Where: [facility] Ambulatory Visit Summary RAKESH PIÑA :1975 [...] 9:20 AM EDT With: Alexia Muhammad Where: [facility] Normal [facility] Medicine Office/Clini c Noteon 05-22-2023 Family Medicine [...] his legs at night. pt will pickle cutter some OTC potassium to see if that helps. all questions answered. RTC 4 weeks Ordered: meloxicam, 15 mg = 1 tab(s), Oral, Daily, # 30 tab(s), Refills(s) 1, Pharmacy: [facility], 176.5, cm, 05/22/23 9:51:00 EDT, Height/Length Dosing, 190.2, kg, 05/22/23 9:51:00 EDT, Weight Dosing 2. Left sciatic nerve pain (M54.32: Sciatica, left side) will order antiinflammatory. steroid did not give him any relief Ordered: meloxicam, 15 mg = 1 tab(s), Oral, Daily, # 30 tab(s), Refills(s) 1, Pharmacy: [facility], 176.5, cm, 05/22/23 9:51:00 EDT, Height/Length Dosing, 190.2, kg, 05/22/23 9:51:00 EDT, Weight Dosing phentermine, 37.5 mg = 1 tab(s), Oral, Daily, X 30 day(s), # 30 tab(s), Refills(s) 0 phentermine, 37.5 mg = 1 tab(s), Oral, Daily, X 30 day(s), # 30 tab(s), Refills(s) 0, Pharmacy: [facility], 176.5, cm, 05/22/23 9:51:00 EDT, Height/Length Dosing, 190.2, kg, 05/22/23 9:51:00 EDT, Weight Dosing 3. BMI 60.0-69.9, adult (Z68.44: Body mass index [BMI] 60.0-69.9, adult) BMI education complete Ordered: meloxicam, 15 mg = 1 tab(s), Oral, Daily, # 30 tab(s), Refills(s) 1, Pharmacy: [facility], 176.5, cm, 05/22/23 9:51:00 EDT, Height/Length Dosing, 190.2, kg, 05/22/23 9:51:00 EDT, Weight Dosing 4. Morbid obesity due to excess calories (E66.01: Morbid (severe) obesity due to excess calories) see above Ordered: meloxicam, 15 mg = 1 tab(s), Oral, Daily, # 30 tab(s), Refills(s) 1, Pharmacy: [facility], 176.5, cm, 05/22/23 9:51:00 EDT, Height/Length Dosing, 190.2, kg, 05/22/23 9:51:00 EDT, Weight Dosing phentermine, 37.5 mg = 1 tab(s), Oral, Daily, X 30 day(s), # 30 tab(s), Refills(s) 0 phentermine, 37.5 mg = 1 tab(s), Oral, Daily, X 30 day(s), # 30 tab(s), Refills(s) 0, Pharmacy: [facility], 176.5, cm, 05/22/23 9:51:00 EDT, Height/Length Dosing, 190.2, kg, 05/22/23 9:51:00 EDT, Weight Dosing 5. Non-smoker (Z78.9: Other specified health status) continue not smoking Ordered: meloxicam, 15 mg = 1 tab(s), Oral, Daily, # 30 tab(s), Refills(s) 1, Pharmacy: [facility], 176.5, cm, 05/22/23 9:51:00 EDT, Height/Length Dosing, 190.2, kg, 05/22/23 9:51:00 EDT, Weight Dosing phentermine, 37.5 mg = 1 tab(s), Oral, Daily, X 30 day(s), # 30 tab(s), Refills(s) 0 phentermine, 37.5 mg = 1 tab(s), Oral, Daily, X 30 day(s), # 30 tab(s), Refills(s) 0, Pharmacy: [facility], 176.5, cm, 05/22/23 9:51:00 EDT, Height/Length [...] Daily Allerg (more content not included)... Normal [facility] Comment on above: Result Comment: Elec tronically Signed By: Alexia Muhammad\.br\Date and Time Signed: 05/22/23 10:34 EDT Consenton 04-26-2023 Consent [id number] .00CD:127 [facility] Family Medicine Office/Clini c Noteon 04-24-2023 [...] give kenalog 60mg IM in office today. [facility] Comment on above: Result Comment: Elec [...] 11:00 AM EDT With: Alexia Muhammad Where: [facility] Auto Diffon 03-19-2023 Basophils/100 WBC (Bld) 0.3 % Normal 0.0-2.0 [facility] Comment on above: Order Comment: Order Added by Discern Expert. Performed By: #### 2 025815, [id number], 0924596, [id number], [id number] ####[address] [place] [address] Basophils/Leukocytes Auto (Bld) [Pure # fraction] 0.0 E9/L Normal 0.0-0.2 [facility] Comment on above: Order Comment: Order Added by Discern Expert. Performed By: #### 2 047285, 0192515, 5337028, 7756963, [id number] ####[address] [address] Eosinophils/100 WBC (Bld) 2.1 % Normal 0.0-8.0 [facility] Comment on above: Order Comment: Order Added by Discern Expert. Performed By: #### 2 803791, 9357405, 1915841, [id number], [id number] ####[address] [address] Eosinophils/Leukocytes Auto (Bld) [Pure # fraction] 0.2 E9/L Normal 0.0-0.5 [facility] Comment on above: Order Comment: Order Added by Nellie Expert. Performed By: #### 2 427368, 0233239, 7985521, [id number], [id number] ####[address] [address] Lymphocytes/100 WBC (Bld) 20.5 % Normal 14.0-50.0 [facility] Comment on above: Order Comment: Order Added by Nellie Expert. Performed By: #### 2 736988, 9466412, 5912276, 7411443, [id number] ####[address] [address] Lymphocytes/Leukocytes Auto (Bld) [Pure # fraction] 1.6 E9/L Normal 1.0-4.0 [facility] Comment on above: Order Comment: Order Added by Discern Expert. Performed By: #### 2 993853, 5393087, 3864932, 4023908, [id number] ####[address] [place] [address] Monocytes/100 WBC (Bld) 8.7 % Normal 4.0-14.0 [facility] Comment on above: Order Comment: Order Added by Discern Expert. Performed By: #### 2 009302, 7334715, 2635190, 1254359, [id number] ####[address] [place] [address] Monocytes/Leukocytes Auto (Bld) [Pure # fraction] 0.7 E9/L Normal 0.2-1.0 [facility] Comment on above: Order Comment: Order Added by Nellie Expert. Performed By: #### 2 777512, 5655591, 3017259, 7780881, [id number] ####[address] [address] Neutrophils/100 WBC (Bld) 68.4 % Normal 36.0-75.0 [facility] Comment on above: Order Comment: Order Added by Nellie Expert. Performed By: #### 2 241110, 2805782, 1943902, 1808963, [id number] ####[address] [address] Neutrophils/Leukocytes Auto (Bld) [Pure # fraction] 5.3 E9/L Normal 2.0-7.5 [facility] Comment on above: Order Comment: Order Added by Discern Expert. Performed By: #### 2 444109, 8473495, 3211131, 8067030, [id number] ####[address] [address] CBC w/ Auto Diffon 3 Erythrocyte distribution width (RBC) [Ratio] 16.3 % High 10.9-14.2 [facility] Comment on above: Performed By: #### 2 800829, 9365298, 3940075, 7253498, [id number] ####[facility] [address] [place] [address] Hematocrit (Bld) [Volume fraction] 43.7 % Normal 37.7-49.0 [facility] Comment on above: Performed By: #### 2 595440, 9282958, [id number], [id number], [id number] ####[address] [place] [address] Hemoglobin (Bld) [Mass/Vol] 14.4 g/dL Normal 13.5-17.5 [facility] Comment on above: Performed By: #### 2 [id number], [id number], [id number], [id number], [id number] ####[address] [address] MCH (RBC) [Entitic mass] 27.9 pg Normal 27.0-34.0 [facility] Comment on above: Performed By: #### 2 700244, [id number], 4724748, 3066822, [id number] ####[address] [address] MCHC (RBC) [Mass/Vol] 33.0 g/dL Normal 31.4-36.0 [facility] Comment on above: Performed By: #### 2 190015, 1883540, 2992315, 3517362, [id number] ####[address] [address] MCV (RBC) [Entitic vol] 84.8 fL Normal 80.0-100.0 [facility] Comment on above: Performed By: #### 2 794491, 4487870, 1448968, 2353318, [id number] ####[address] [address] Platelet mean volume (Bld) [Entitic vol] 7.7 fL Normal 6.4-10.8 [facility] Comment on above: Performed By: #### 2 645692, 5127116, 2857561, 7488991, [id number] ####[facility] [address] [place] [address] Platelets (Bld) [#/Vol] 278.0 E9/L Normal 150.0-500.0 [facility] Comment on above: Performed By: #### 2 557710, 8842307, 0307575, 3942166, [id number] ####[facility] [address] [place] [address] RBC (Bld) [#/Vol] 5.2 E12/L Normal 4.3-5.9 [facility] Comment on above: Performed By: #### 2 047276, 7334826, 6804426, 5811904, 38014511 ####[facility] [address] [place] [address] WBC corrected for nucl RBC Auto (Bld) [#/Vol] 7.7 E9/L Normal 4.0-11.0 [facility] Comment on above: Performed By: #### 2 115512, 3436765, 0732802, 1327867, [id number] ####[facility] [address] [place] [address] CHEMISTRYOrdered By: SYSTEM SYSTEM on 03-19-2023 Cholesterol [...] day(s), # 21 tab(s), Refills(s) 0, Pharmacy: [facility]/pharmacy #[id number], 176.5, cm, 03/19/23 13:15:00 EDT, Height/Length Dosing phentermine, 37.5 mg = 1 tab(s), Oral, Daily, # 30 tab(s), Refills(s) 0, Pharmacy: [facility]/pharmacy #[id number], 176.5, cm, 03/19/23 13:15:00 EDT, Height/Length [...] day(s), # 21 tab(s), Refills(s) 0, Pharmacy: [facility]/pharmacy #[id number], 176.5, cm, 03/19/23 13:15:00 EDT, Height/Length Dosing phentermine, 37.5 mg = 1 tab(s), Oral, Daily, # 30 tab(s), Refills(s) 0, Pharmacy: [facility]/pharmacy #[id number], 176.5, cm, 03/19/23 13:15:00 EDT, Height/Length Dosing CBC w/ Auto Diff Cologuard Screening Test Lipid Panel PSA Screen, Total Thyroid Stimulating Hormone 3. Non-smoker (Z78.9: Other specified health status) continue not smoking Ordered: methylPREDNISolone, = 1 packet(s), Oral, As Directed, as directed on package labeling, X 6 day(s), # 21 tab(s), Refills(s) 0, Pharmacy: [facility]/pharmacy #[id number], 176.5, cm, 03/19/23 13:15:00 EDT, Height/Length Dosing phentermine, 37.5 mg = 1 tab(s), Oral, Daily, # 30 tab(s), Refills(s) 0, [id number] 176.5, cm, 03/19/23 13:15:00 EDT, Height/Length Dosing CBC w/ Auto Diff Cologuard Screening Test Lipid Panel PSA Screen, Total Thyroid Stimulating Hormone 4. Left sciatic nerve pain (M54.32: Sciatica, left side) medrol dose pack sent Ordered: methylPREDNISolone, = 1 packet(s), Oral, As Directed, as directed on package labeling, X 6 day(s), # 21 tab(s), Refills(s) 0, [id number] 176.5, cm, 03/19/23 13:15:00 EDT, Height/Length Dosing phentermine, 37.5 mg = 1 tab(s), Oral, Daily, # 30 tab(s), Refills(s) 0, [id number] 176.5, cm, 03/19/23 13:15:00 EDT, Height/Length Dosing Colon cancer screening (Z12.11: (more content not included)... Normal [facility] Comment on above: Result Comment: Elec tronically Signed By: Alexia Muhammad\.br\Date and Time Signed: 03/19/23 14:00 EDT Formson 03-19-2023 Forms [id number]:127 Normal [facility] HEMATOLOGYOrdered By: SYSTEM SYSTEM on [...] 03-19-2023 Cholesterol [Mass/Vol] 171 mg/dL Normal 120-200 [facility] Comment on above: Performed By: #### 2 112027, 0903631, 4007041, 9091418, 02468867 ####[facility] [address] [place] [address] Cholesterol in HDL [Mass/Vol] 39 mg/dL Invalid Interpretation Code [facility] Comment on above: Result Comment: HDL > or equal to 60 mg/dL: Low cardiovascular risk HDL < 40 mg/dL : High cardiovascular risk Performed By: #### 2 188424, 9541054, 3855442, 4690372, 78384841 ####[facility] [address] [place] [address] Cholesterol in LDL [Mass/Vol] 112 mg/dL Normal <=129 [facility] Comment on above: Performed By: #### 2 719991, 8952939, 2990051, 0510945, [id number] ####[facility] [address] [place] [address] Cholesterol in VLDL [Mass/Vol] 19 mg/dL Normal 7-40 [facility] Comment on above: Performed By: #### 2 692353, 1775977, 7337733, 8564420, 27601669 ####[facility] [address] [place] [address] Triglyceride [Mass/Vol] 94 mg/dL Normal <=149 [facility] Comment on above: Performed By: #### 2 475080, 6881268, 7979381, 2497516, 63660128 ####[facility] [address] [place] [address] PSA Screen, Totalon 03-19-20 23 Prostate specific Ag [Mass/Vol] 0.9 ng/mL Normal 0.1-3.5 [facility] Comment on above: Result Comment: The concentration of PSA determined by different manufacturers can vary due to differences in assay methods and reagent specificity. Values obtained from different assay methods cannot be used interchangeably. The methodology used for this result was chemiluminescence using [employer] PSA reagent. Performed By: #### 2 212106, 3219497, 3103874, 1291886, [id number] ####[facility] [address] [place] [address] TSHon 03-19-2023 TSH Qn 2.03 m[IU]/L Normal 0.34-5.60 [facility] Comment on above: Performed By: #### 2 247364, 3603454, 7301710, 3923324, 72811180 ####[facility] [address] [place] [address] [facility]11 SARS-CoV-2 (COVID-19) RNA BETHANY+probe Ql (Unsp spec) Not detected Normal NOT DETECTED [facility] Comment on above: Result Comment: [...] for this test is supported by the [place] of [employer] and Human Service's declaration that [...] used). Performed By: #### C VDTBH #### [facility] [address] [place] [address] Dr. Mynor Yun GROUP A STREP CULTUREon 07-11 S. pyogenes Ag Ql (Unsp spec) Culture Observations: NEGATIVE FOR GROUP A STREPTOCOCCUS. Normal [facility] Comment on above: Performed By: #### G RASTCX #### [facility] [address] [place] [address] Dr. Mynor Yun INFLUENZA A AND B AGon 07-28 INFLUANEGH SEE BELOW Normal [facility] Comment on above: Result Comment: Nega tive for Flu A protein angiten. Infection due to Flu A cannot be ruled out. Flu A angiten in the sample may be below the detection limit of the test. Performed By: #### I NFLUAB #### [facility] [address] [place] [address] Dr. Mynor Yun INFLUBNEGH SEE BELOW Normal [facility] Comment on above: Result Comment: Nega tive for Flu B protein antigen. Infection due to Flu B cannot be ruled out. Flu B antigen in the sample may be below the detection limit of the test. Performed By: #### I NFLUAB #### [facility] [address] [place] [address] Dr. Mynor Yun INFLUENZA A AG Negative Normal NEGATIVE SEE COMMENT [facility] Comment on above: Performed By: #### I NFLUAB #### [facility] [address] [place] [address] Dr. Mynor Yun INFLUENZA B AG Negative Normal NEGATIVE SEE COMMENT [facility] Comment on above: Performed By: #### I NFLUAB #### [facility] [address] [place] [address] Dr. Mynor Yun INTERNAL CONTROLS Within Normal Limits Normal Wi thin Normal Limits [facility] Comment on above: Performed By: #### I NFLUAB #### [facility] [address] [place] [address] Dr. Mynor Yun STREPT SCREENon 07-28-2022 STREP SCREEN A Negative Normal NEGATIVE [facility] Comment on above: Performed By: #### S SCRN #### [facility] [address] [place] [address] Dr. Mynor Yun XR SINUSES 3 VIEWS [...] by: KELLIE SMALLS Date: 2022-02-01 09:58 Normal [facility] HAND LEFT 3 Son 12-29-2021 HAND LEFT 3 S [facility] Department of Radiology [address] [place] [id number] Patient Name: RAKESH PIÑA : 1975 Sex: M Age: Race: White Pt. Location: Patient Status: D Ordered Date: 12/29/2021 11:45:00 AM Completed Date: 12/29/2021 11:50 AM Requesting Provider: LORI DALLAS Attending Provider: LORI DALLAS Report Copy To: Signs & Symptoms: M79.642 Pain in left hand I10 History: Comments: Evaluate Exam: HAND LEFT 3 [facility] HAND LEFT 3 [facility] 12/29/2021 11:50 AM CLINICAL INDICATIONS: M79.642 [...] alignment. Electronically signed: Heather Montana. Transcribed by: [email or web address], User Resident: Electronically Signed by: HEATHER MONTANA @ 12/31/2021 08:55 AM Normal [facility] Comment on above: Order Comment: Evalu ate HAND LEFT 3 VWSon 12-08-2021 HAND LEFT 3 S [facility] Department of Radiology [address] [place] [phone] Patient Name: RAKESH PIÑA : 1975 Sex: M Age: Race: White Pt. Location: Patient Status: D Ordered Date: 12/08/2021 1:25:00 PM Completed Date: 12/08/2021 01:29 PM Requesting Provider: LORI DALLAS Attending Provider: LORI DALLAS Report Copy To: Signs & Symptoms: M79.642 Pain in left hand I10 History: [place] Comments: Evaluate Exam: HAND LEFT 3 S [...] bridging. Electronically signed: Ronaldo Major. Transcribed by: [email or web address], User Resident: Electronically Signed by: RONALDO MAJOR @ 12/09/2021 04:04 PM Normal [facility] Comment on above: Order Comment: Evalu ate HAND LEFT 3 VWSon 11-14-2021 HAND LEFT 3 S [facility] Department of Radiology [address] [place] [id number] Patient Name: RAKESH PIÑA : 1975 [...] fracture. Electronically signed: Ramirez Smith. Transcribed by: [email or web address], User Resident: Electronically Signed by: RAMIREZ Eleazar SMITH @ 11/14/2021 08:02 PM Normal [facility] Comment on above: Order Comment: Views (X-RAY, HAND): PA, Lateral, Oblique TESTOSTERONE, TOTALon 2021 Testosterone [Mass/Vol] 411 ng/dL Normal 264-916 [facility] Comment on above: Result Comment: Adul t male reference interval is based on a population of healthy nonobese males (BMI <30) between 19 and 39 years old. Iron et.al. JCEM 2017,102;9476-8843. PMID: [id number]. Performed By: #### T ESTTOT #### [facility] [address] [place] [address] Dr. Mynor Yun CBC AUTO DIFFon 11-11-2021 BASO # 0.0 103/ul Normal 0.0-0.1 [facility] Comment on above: Performed By: #### C BC #### [facility] [address] [place] [address] Dr. Mynor Yun Basophils/100 WBC (Bld) 0.2 % Normal 0.2-2.0 [facility] Comment on above: Performed By: #### C BC #### [facility] [address] [place] [address] Dr. Mynor Yun EO # 0.1 103/ul Normal 0.0-0.7 [facility] Comment on above: Performed By: #### C BC #### [facility] [address] [place] [address] Dr. Mynor Yun Eosinophils/100 WBC (Bld) 1.2 % Normal 0.9-7.0 [facility] Comment on above: Performed By: #### C BC #### [facility] [address] [place] [address] Dr. Mynor Yun Erythrocyte distribution width (RBC) [Ratio] 14.3 % Normal 11.0-15.0 [facility] Comment on above: Performed By: #### C BC #### [facility] [address] [place] [address] Dr. Mynor Yun Hematocrit (Bld) [Volume fraction] 47.3 % Normal 42.0-54.0 [facility] Comment on above: Performed By: #### C BC #### [facility] [address] [place] [address] Dr. Mynor Yun Hemoglobin (Bld) [Mass/Vol] 15.2 g/dL Normal 14.0-18.0 [facility] Comment on above: Performed By: #### C BC #### [facility] [address] [place] [address] Dr. Mynor Yun IG # 0.03 10e3/ul Normal 0.00-0.03 [facility] Comment on above: Performed By: #### C BC #### [facility] [address] [place] [address] Dr. Mynor Yun IG % 0.3 % Normal 0.0-0.5 [facility] Comment on above: Performed By: #### C BC #### [facility] [address] [place] [address] Dr. Mynor Yun LYMPH # 1.6 103/ul Normal 1.2-3.8 [facility] Comment on above: Performed By: #### C BC #### [facility] [address] [place] [address] Dr. Mynor Yun Lymphocytes/100 WBC (Bld) 18.4 % Critically low 20.5-60.0 [facility] Comment on above: Performed By: #### C BC #### [facility] [address] [place] [address] Dr. Mynor Yun MANUAL DIFF REQ NO Normal [facility] Comment on above: Performed By: #### C BC #### [facility] [address] [place] [address] Dr. Mynor Yun MCH (RBC) [Entitic mass] 28.8 pg Normal 25.9-34.0 [facility] Comment on above: Performed By: #### C BC #### [facility] [address] [address] [address] Mynor Yun MCHC (RBC) [Mass/Vol] 32.1 g/dL Normal 29.9-35.2 [facility] Comment on above: Performed By: #### C BC #### [facility] [address] [place] [address] Dr. Mynor Yun MCV (RBC) [Entitic vol] 89.8 fL Normal 80.0-94.0 [facility] Comment on above: Performed By: #### C BC #### [facility] [address] [place] [address] Dr. Mynor Yun MONO # 0.7 103/ul Normal 0.3-0.8 [facility] Comment on above: Performed By: #### C BC #### [facility] [address] [place] [address] Dr. Mynor Yun Monocytes/100 WBC (Bld) 8.4 % Normal 1.7-12.0 [facility] Comment on above: Performed By: #### C BC #### [facility] [address] [place] [address] Dr. Mynor Yun NEUT # 6.2 103/ul Normal 1.4-6.5 [facility] Comment on above: Performed By: #### C BC #### [facility] [address] [place] [address] Dr. Mynor Yun Neutrophils/100 WBC (Bld) 71.5 % Normal 43.0-75.0 [facility] Comment on above: Performed By: #### C BC #### [facility] [address] [place] [address] Dr. Mynor Yun Platelet mean volume (Bld) [Entitic vol] 8.7 fL Critically low 9.5-13.5 [facility] Comment on above: Performed By: #### C BC #### [facility] [address] [place] [address] Dr. Mynor Yun PLT 263 103/ul Normal 150-450 [facility] Comment on above: Performed By: #### C BC #### [facility] [address] [address] [address] Mynor Yun RBC 5.27 106/ul Normal 4.70-6.10 [facility] Comment on above: Performed By: #### C BC #### [facility] [address] [address] [address] Mynor Yun WBC 8.7 103/ul Normal 4.0-11.0 [facility] Comment on above: Performed By: #### C BC #### [facility] [address] [address] [address] Mynor Yun LIPID PROFILEon 11-11-2021 CHOL-HDL RATIO NORM SEE BELOW Normal [facility] Comment on above: Result Comment: 3.3 - 4.4 LOW RISK 4.4 - 7.1 AVERAGE RISK 7.1 - 11.0 MODERATE RISK >11.0 HIGH RISK Performed By: #### S SCRN #### [facility] [address] [place] [address] Dr. Mynor Yun Cholesterol [Mass/Vol] 129 mg/dL Normal <=200 [facility] Comment on above: Performed By: #### S SCRN #### [facility] [address] [address] [address] Mynor Yun Cholesterol in HDL [Mass/Vol] 34 mg/dL Normal [facility] Comment on above: Performed By: #### S SCRN #### [facility] [address] [address] [address] Mynor Yun Cholesterol in LDL [Mass/Vol] 82.2 mg/dL Normal [facility] Comment on above: Performed By: #### S SCRN #### [facility] [address] [address] [address] Mynor Yun Cholesterol.total/Chol esterol in HDL [Mass ratio] 3.8 {ratio} Normal [facility] Comment on above: Performed By: #### S SCRN #### [facility] [address] [address] [address] Mynor Yun HDL NORMAL > or = 60 mg/dl - LO W CARDIOVASCULAR RISK <40 mg/dl - HIGH CARDIOVASCULAR RISK Normal [facility] Comment on above: Performed By: #### S SCRN #### [facility] [address] [address] [address] Mynor Yun LDL CALC NORMAL SEE BELOW Normal [facility] Comment on above: Result Comment: <100 mg/dl OPTIMAL 100 - 129 mg/dl NEAR OR ABOVE OPTIMAL 130 - 159 mg/dl BORDERLINE HIGH 160 - 189 mg/dl HIGH >190 mg/dl VERY HIGH Performed By: #### S SCRN #### [facility] [address] [address] [address] Mynor Yun Triglyceride [Mass/Vol] 64 mg/dL Normal <=150 [facility] Comment on above: Performed By: #### S SCRN #### [facility] [address] [place] [address] Dr. Mynor Yun VLDL CALC 12.8 mg/dL Normal [facility] Comment on above: Performed By: #### S SCRN #### [facility] [address] [place] [address] Dr. Mynor Yun PROF 14(COMP METB)on 022 Albumin [Mass/Vol] 3.8 g/dL Normal 3.5-5.0 [facility] Comment on above: Performed By: #### T SH, LIPID, CMP #### [facility] [address] [place] [address] Dr. Mynor Ynu Albumin/Globulin [Mass ratio] 0.9 {ratio} Normal [facility] Comment on above: Performed By: #### T SH, LIPID, CMP #### [facility] [address] [place] [address] Dr. Mynor Yun ALP [Catalytic activity/Vol] 76 U/L Normal 38-126 [facility] Comment on above: Performed By: #### T SH, LIPID, CMP #### [facility] [address] [place] [address] Dr. Mynor Yun ALT [Catalytic activity/Vol] 49 U/L Normal 21-72 [facility] Comment on above: Performed By: #### T SH, LIPID, CMP #### [facility] [address] [address] [address] Mynor Yun Anion gap [Moles/Vol] 11.2 mmol/L Normal [facility] Comment on above: Performed By: #### T SH, LIPID, CMP #### [facility] [address] [address] [address] Mynor Yun AST [Catalytic activity/Vol] 31 U/L Normal 17-59 [facility] Comment on above: Performed By: #### T SH, LIPID, CMP #### [facility] [address] [address] [address] Mynor Yun Bilirubin [Mass/Vol] 0.5 mg/dL Normal 0.2-1.3 [facility] Comment on above: Performed By: #### T SH, LIPID, CMP #### [facility] [address] [address] [address] Mynor Yun Calcium [Mass/Vol] 9.0 mg/dL Normal 8.4-10.2 [facility] Comment on above: Performed By: #### T SH, LIPID, CMP #### [facility] [address] [address] [address] Mynor Yun Chloride [Moles/Vol] 104 mmol/L Normal 98-107 [facility] Comment on above: Performed By: #### T SH, LIPID, CMP #### [facility] [address] [address] [address] Mynor Yun CO2 [Moles/Vol] 30.6 mmol/L Critically high 22.0-30.0 [facility] Comment on above: Performed By: #### T SH, LIPID, CMP #### [facility] [address] [address] [address] Mynor Yun Creatinine [Mass/Vol] 0.95 mg/dL Normal 0.66-1.25 [facility] Comment on above: Performed By: #### T SH, LIPID, CMP #### [facility] [address] [address] [address] Mynor Yun EGFR-AF GIBRALTARIAN >60 Normal >=60 [facility] Comment on above: Performed By: #### T SH, LIPID, CMP #### [facility] [address] [address] [address] Mynor Yun EGFR-NON AF GIBRALTARIAN >60 Normal >=60 [facility] Comment on above: Performed By: #### T SH, LIPID, CMP #### [facility] [address] [address] [address] Mynor Yun Globulin (S) [Mass/Vol] 4.3 g/dL Normal [facility] Comment on above: Performed By: #### T SH, LIPID, CMP #### [facility] [address] [address] [address] Mynor Yun Glucose [Mass/Vol] 104 mg/dL Normal 74-106 [facility] Comment on above: Performed By: #### T SH, LIPID, CMP #### [facility] [address] [place] [address] Dr. Mynor Yun Potassium [Moles/Vol] 3.8 mmol/L Normal 3.4-5.0 [facility] Comment on above: Performed By: #### T SH, LIPID, CMP #### [facility] [address] [place] [address] Dr. Mynor Yun Protein [Mass/Vol] 8.1 g/dL Normal 6.1-8.2 [facility] Comment on above: Performed By: #### T SH, LIPID, CMP #### [facility] [address] [place] [address] Dr. Mynor Yun Sodium [Moles/Vol] 142 mmol/L Normal 137-145 [facility] Comment on above: Performed By: #### T SH, LIPID, CMP #### [facility] [address] [place] [address] Dr. Mynor Yun Urea nitrogen [Mass/Vol] 11.0 mg/dL Normal 9.0-20.0 [facility] Comment on above: Performed By: #### T SH, LIPID, CMP #### [facility] [address] [place] [address] Dr. Mynor Yun Urea nitrogen/Creatinine [Mass ratio] 11.6 mg/mg Normal [facility] Comment on above: Performed By: #### T SH, LIPID, CMP #### [facility] [address] [address] [address] Mynor Yun TSHon 11-11-2021 TSH 1.612 uIU/mL Normal 0.470-4.680 [facility] Comment on above: Performed By: #### T SH, LIPID, CMP #### [facility] [address] [address] [address] Mynor Ynu TSH RANGE SEE BELOW Normal [facility] Comment on above: Result Comment: <0.3 4 UIU/ml HYPERTHYROID 0.34-5.60 UIU/ml EUTHYROID >5.60 UIU/ml HYPOTHYROID Performed By: #### T SH, LIPID, CMP #### [facility] [address] [address] [address] Mynor Yun Encounters Encounter Date Encounter Type Care Provider Facility Start: 03-10-2024 End: 03-10-2024 ambulatory Wilbert Buckner MD Facility: [facility] Start: 02-25-2024 End: 02-25-2024 ambulatory Wilbert Buckner MD Facility: [facility] Start: 02-18-2024 End: 02-18-2024 ambulatory Wilbert Buckner MD Facility: [facility] Start: 01-23-2024 End: 01-26-2024 ambulatory ALEXIA TORSTEN [facility] Start: 01-16-2024 End: 01-16-2024 ambulatory [facility] Start: 01-14-2024 End: 01-14-2024 ambulatory Alexia L Torsten Facility:[facility] Start: 01-09-2024 End: 01-09-2024 ambulatory Alexia L Torsten Facility:[facility] Start: 12-03-2023 End: 12-03-2023 ambulatory Wilbert Buckner MD Facility: [facility] Start: 11-05-2023 End: 11-05-2023 [facility] Start: 08-23-2023 End: 08-23-2023 ambulatory Alexia L Torsten Facility[facility] Start: 07-26-2023 End: 07-26-2023 ambulatory [facility] L [facility]sten [facility] Start: 06-21-2023 End: 06-21-2023 ambulatory [facility] L [facility] Start: 05-22-2023 End: 05-22-2023 ambulatory Alexia L Torsten [facility] Start: 04-24-2023 End: 04-24-2023 ambulatory Alexia L Torsten [facility] Start: 03-19-2023 End: 03-19-2023 ambulatory Alexia L Torsten Facility:[facility] Start: 03-19-2023 End: 03-19-2023 Lab Drop off Alexia L Torsten [facility] Start: 03-19-2023 End: 03-19-2023 ambulatory Alexia L Torsten Facility:[facility] Start: 03-15-2023 ambulatory Alexia Torsten Facility:[facility] [place] Start: 07-28-2022 End: 07-28-[address] LULU BLANK Facility:[facility] Start: 02-01-2022 End: 02-02-[address] LULU BLANK Facility:[facility] Start: 11-15-2021 Encounter for genera l adult medical examination without abnormal findings DR LULU BLANK [facility] Start: 11-11-2021 End: 11-12-[address] LULU [...] virus vacc ine, unspecified formulation Alexia Torsten [facility] 11-12-2020 SARS-CoV-2 (COVID-19 ) mRNA BNT-162b2 vax Alexia Torsten [facility] 10-22-2020 SARS-CoV-2 (COVID-19 ) mRNA BNT-162j0 vax Alexia Torsten [facility] 03-10-2019 pneumococcal polysaccharide vaccine, 23 valent Alexia Torsten [facility] Payers Date Payer Category Payer Unknown 2022 Unknown [id number] 2019 Unknown [id number] 2013 Medicare 1977 Unknown [id number] 2.16.84 0.1.890505.3.579.2.593 1977 Unknown [id number] 2.16.84 0.1.805560.3.579.2.593 1977 Unknown [id number] 2.16.84 0.1.505761.3.579.2.593 1977 Unknown [id number] 2.16.84 0.1.960230.3.579.2.593 1977 Unknown [id number] 2.16.8 40.1.171849.3.579.2.182 1977 Unknown [id number] 2.16.8 40.1.180530.3.579.2.182 1977 Unknown [id number] 2.16.8 40.1.550944.3.579.2.727 1977 Unknown [id number] 2.16.8 40.1.803266.3.579.2.727 1977 Unknown [id number] 2.16.8 40.1.367673.3.579.2.727 1977 Unknown [id number] 2.16.8 40.1.511916.3.579.2.727 1977 Unknown [id number] 2.16.8 40.1.519491.3.579.2.727 1977 Unknown [id number] 2.16.8 40.1.573685.3.579.2.727 1977 Unknown [id number] 2.16.8 40.1.835996.3.579.2.727 1977 Unknown [id number] 2.16.8 40.1.180283.3.579.2.727 1977 Unknown [id number] 2.16.8 40.1.495920.3.579.2.727 1977 Unknown [id number] 2.16.8 40.1.422297.3.579.2.727 1977 Unknown [id number] 2.16.8 40.1.858624.3.579.2.727 1977 Unknown [id number] 2.16. 840.1.019902.3.579.2.196 1977 Unknown [id number] 2.16. 840.1.527822.3.579.2.196 1977 Unknown [id number] 2.16. 840.1.369561.3.579.2.196 1977 Unknown [id number] 2.16. 840.1.654576.3.579.2.196 1977 Unknown [id number] 2.16. 840.1.494898.3.579.2.196 1957 Medicare [id number] 1957 Unknown [id number] Social History Date Type Detail Facility Start: 03-19-2023 Tobacco smoking status Ex-smoker (fi nding) [facility] Tobacco smoking status Never [facility] Sex Assigned At Male [facility] Clinical Note 11-10-2021 Note Date & Type [...] KELLIE SMALLS Date: 2021-11-10 13:16 [facility] Evaluation + Plan note Note Date & Type [facility] Evaluation + Plan note Future Appointments Appointment Date:04/23/2023 11:00:00 AM Scheduled Provider:Alexia Muhammad Location:[facility] Appointment Type: Open [facility] Hospital course Narrative Note Date & Type Note Facility Hospital course Narrative No data available for this section [facility] Hospital Discharge instructions Note Date & Type Note Facility Hospital Discharge instructions No data available for this section [facility] Progress note Note Date & Type Note Facility Progress note No data available for this section [facility] Summary Purpose Family History No Family History [...] section and content) DATE CREATED AUTHOR 01/28/2022 [facility] DATE CREATED AUTHOR AUTHOR'S ORGANIZ ATION 08/10/2022 [facility] DATE CREATED AUTHOR AUTHOR'S ORGANIZ ATION 01/28/2024 [facility] DATE CREATED AUTHOR AUTHOR'S ORGANIZ ATION 02/27/2024 [facility] DATE CREATED AUTHOR AUTHOR'S ORGANIZ ATION 03/13/2024 [facility] Patient Care team informatio n (unrecognized section and content) Personnel Name: Alexia Muhammad Address: Address: [address] [place] [id number]- FOR RECORDS PERTAINING TO PATIENTS WHO ARE [...] BE BASED ON THE PRIMARY CLINICAL RECORDS. [facility] provides no warranty or guarantee of the accuracy or completeness of information in this document.
[2024-06-30 09:28] VITALS: BP 156/98; PULSE 74; TEMP 36.6; O2SAT 100
[2024-06-30 10:06] VITALS: BP 140/65; PULSE 75; O2SAT 90
[2024-06-30 10:09] VITALS: BP 135/52; PULSE 70; O2SAT 93
[2024-06-30] MEDS: TRIAMCINOLONE ACETONIDE 40 MG/ML VIAL IM (10:09)
[2024-06-30] MEDS: BUPIVACAINE HCL 0.25% PF 25 MG/10 ML VIAL 4 ML INJ (10:09)
[2024-06-30] MEDS: IOHEXOL 240 MG/ML - 10 ML VIAL INJ (10:09)
[2024-06-30] MEDS: LIDOCAINE HCL 2% 400 MG/20 ML MDV INJ (10:09)
--- NOTE | 2024-06-30 10:12 | W.PM.PROCNOT ---
Date of procedure: 06/30/24 Pre-op diagnosis: Pain due to left hip osteoarthritis Post-op diagnosis: same as pre-op Procedure: Procedure: Left hip injection Medications: Bupivacaine 0.25% 3cc, kenalog 40mg I explained the details of the procedure to the patient including the risks, benefits and alternatives. We had an informed discussion and the patient verbalized understanding and signed the consent form. All questions were answered appropriately.? A time out was performed.? After obtaining a comfortable supine position, the skin overlying the hip, subtrochanteric region, and joint space were prepped with alcohol. A sterile syringe containing the above medication was attached to a 25 guage, 3.5 inch spinal needle under strict aseptic technique. X ray was used to identify the joint space and the femoral neck on the left side.? The needle was than advanced through the subcutaneous tissue after local injection of 1% lidocaine.? The contents of the syringe were gently injected without any resistance into the joint space after contrast (isovue) outlined the appropriate area. The needle was removed and pressure was applied to the injection site to decrease the incidence of ecchymosis and hematoma formation.? A sterile bandage was applied. Post procedural instructions were given to the patient. Anesthesia: Local Surgeon: Wilbert Buckner Pathology: none sent Condition: stable Disposition: no change
== END 2024-06-30 10:15 | disposition home or self-care (01) ==
LOC: SURGOUT 08:59
PROVIDERS: PCP Nurse Practitioner; Visit Provider Anesthesiology
DX: M16.12 Unilateral primary osteoarthritis, left hip (principal)
CPT/HCPCS: 20610; 77002; J0665; J3301; Q9966

== ENCOUNTER 2024-07-09 09:26 | Outpatient (OUT) | payer BC, SELFPAY ==
--- OUTSIDE RECORDS SUMMARY | 2024-07-09 09:35 | XMS_ITS | CCD ---
Author Organization [facility] CliniSynm Care Team Providers Care Client Representative Name Role Phone MAZIN CANO Admitting Unavailable [...] Unavailable BLANK, DR LULU Tejeda Attending Unavailable BLAKN, DR LULU Tejeda Primary Care Unavailable BLANK, [...] day(s), # 21 tab(s), Refills(s) 0, Pharmacy: [facility]/pharmacy #[id number], 176.5, cm, 03/19/23 13:15:00 [...] day(s), # 30 tab(s), Refills(s) 0, Pharmacy: [facility]/pharmacy #[id number], 176.5, cm, 03/19/23 13:15:00 [...] Reference Range Facility Operative Reporton Operative Report [id number]#1. 00TIFF Normal [facility] Consultation Noteon 02-20-20 24 Consultation Note [id number]#1 .00TIFF Normal [facility] Consultation Noteon 02-06-20 Consultation Note [id number]#1 .00TIFF Normal [facility] RAD - MRI Reporton RAD - MRI Report [id number]#1 .00TIFF Normal [facility] MRI LUMBAR SPINE WO CONTRAST [...] compromise. L2-L3: No disc bulge or protrusion. Qnvd-wo-aihjhzeg facet arthropathy. No significant central canal stenosis. [...] Carson Linares DO 01/24/24 Final result Normal [facility] MRI THORACIC SPINE WO CONTRA STon [...] Carson Linares DO 01/24/24 Final result Normal [facility] Family Medicine Office/Clini c Noteon 01-17-2024 Family Medicine Office/Clinic Note HPI Staff Rose is a 48 year old male presenting for follow up on back pain VENANCIO 01/09/2024 Low back pain with left-sided sciatica was given ketorolac, MRI ordered pt tried to get it done Sunday but couldn't get done they didn't due to wasn't open MRI. MRI order was sent to [facility] in [place]. Pt states the burning sensation from sitting [...] not able to get MRI done at [facility]. is waiting for PA for MRI in [place]. they have an open MRI machine. needs [...] days., # 18 tab(s), Refills(s) 0, Pharmacy: [facility]/pharmacy #[id number], 187.5, cm, 01/16/24 13:46:00 EDT, Height/Length Dosing, 183, kg, 01/16/24 13:4... 3. Non-smoker (Z78.9: Other specified health status) continue not smoking Ordered: predniSONE, = 1 -, Oral, As Directed, Take 3 tabs by mouth daily x3 days, then 2 tabs daily x3 days, then 1 tab daily x3 days., # 18 tab(s), Refills(s) 0, Pharmacy: [facility]/pharmacy #[id number], 187.5, cm, 01/16/24 13:46:00 EDT, Height/Length [...] pneumococcal 23-valent vaccine 03/10/2019 Recorded Normal [facility] Comment on above: Result Comment: Elec [...] 1 tab daily x3 days. Pickup at [facility]/pharmacy #[id number] Unchanged cranberry (cranberry oral capsule) See [...] adult Pharmacy Information [id number]: [address], [place] [phone] Allergies No Known Allergies Problems Ongoing - [...] you for choosing us for your care. [facility] Physician Orderon 01-14-2024 Physician Order [id number]#1 .00TIFF [facility] Provider Letteron 01-14-2024 Provider Letter January 14, 2024 RAKESH PIÑA [address] [place] [id number] : 1975 To Whom It May Concern, Please excuse above patient from work. Date of Illness: From: 01/07/2024 To: 01/16/2024 May Return to Work On: 01/17/2024 Restrictions: None Comments: Sincerely, [address] [address] [facility] Ambulatory Visit Summaryon 0 01-09-2024 Ambulatory [...] Appointments Sunday. 2023 11:20 AM EDT With: Alxeia Muhammad Where: [facility] [place] 01-09-2024 Consent [id number]#1 .00TIFF [facility] ED Note-Physicianon 05-01-20 24 ED Note-Physician [id number]# 1.00TIFF Mariluz [facility] Family Medicine Office/Clini c Noteon 01-09-2024 Family Medicine Office/Clinic Note HPI Staff Rakesh is a 48 year old male presenting for ER follow up ER followup: Hospital: [facility] Visit date: 01/07/24 Symptoms the patient presented [...] Pain, # 60 tab(s), Refills(s) 0, Pharmacy: [facility]/pharmacy #[id number], 187.5, cm, 01/09/24 10:51:00 EDT, Height/Length [...] Pain, # 60 tab(s), Refills(s) 0, Pharmacy: [facility]/pharmacy #[id number], 187.5, cm, 01/09/24 10:51:00 EDT, Height/Length Dosing, 187.5, kg, 08/23/23 9:30:00 EST, Weight Dosing triamcinolone, 60 mg = 1.5 mL, Injection, IntraMuscular, Once, Stop date 01/09/24 11:20:00 EDT, Routine, Start date 01/09/24 11:20:00 EDT, 01/09/24 11:20:00 EDT Orders: phentermine, 37.5 mg = 1 tab(s), Oral, Daily, # 30 tab(s), Refills(s) 0, Pharmacy: [facility], 176.5, cm, 07/26/23 9:32:00 EST, Height/Length [...] Social Hi (more content not included)... Normal [facility] Comment on above: Result Comment: Elec tronically Signed By: Alexia Muhammad\.br\Date and Time Signed: 01/09/24 11:25 EDT Physician Orderon 01-09-2024 Physician Order [id number]#1 .00TIFF [facility] Provider Letteron 01-09-2024 Provider Letter January 09, [address] [id number] : 1975 To Whom It May Concern, Please excuse above patient from work due to medical Date of Illness: From: _01-08-24 To: _01-14-24 May Return to Work On:01-15-24 Restrictions: _ Comments: _ Sincerely, Family Medicine [address] [address] [facility] RAD - CT Reporton 01-09-2024 RAD - CT Report [id number]#1 .00TIFF [facility] ED Note-Physicianon 01-08-20 ED Note-Physician [id number]#1 .00TIFF [facility] RAD - CT Reporton 01-08-2024 RAD - CT Report [id number]#1 .00TIFF [facility] Operative Reporton Operative Report [id number]#1 .00TIFF [facility] Consultation Noteon 11-07-19 Consultation Note [id number]#1 .00TIFF [facility] PT - Progress Noteson 2023 PT - Progress Notes [id number]#1 .00TIFF [facility] RAD - MISCon 10-29-2023 RAD - MISC [id number]#1 .00TIFF Normal [facility] Retail - Clinical Noteon Retail - Clinical Note [id number]#1 .00TIFF Normal [facility] Plan of Care - PT/OT/Speecho n 09-06-2023 Plan of Care - PT/OT/Speech [id number]#1 .00TIFF Normal [facility] Physician Referralon 023 Physician Referral [id number]# 1.00TIFF Normal [facility] Testost Totalon 08-25-2023 Testosterone [Mass/Vol] 321 ng/dL Invalid Interpretation Code 264-916 [facility] Comment on above: Result Comment: Adul t male reference interval is based on a population of healthy nonobese males (BMI <30) between 19 and 39 years old. Iron et.al. JCEM 2017,102;4826-2078. PMID: 64206752. Performed at: [facility] [id number] PhD Domenic Rider Performed By: #### 2 [id number], [id number], [id number] ####[facility] [address] [place] [address] Reminderson 08-24-2023 Reminders - From: Alexia Muhammad [...] detailed message for patient below Normal [facility] Medicine Office/Clini c Noteon 08-23-2023 Family [...] thing was in slow motion. 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 He would [...] he would like referral to PT at [place] for bakc/leg pain. gabapentin and muscles relaxers did not help. 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 all questions answered. RTC as needed Ordered: cyclobenzaprine, 10 mg = 1 tab(s), Oral, Bedtime, PRN for spasm, # 30 tab(s), Refills(s) 0, Pharmacy: [facility], 176.5, cm, 07/26/23 9:32:00 EST, Height/Length Dosing, 187.2, kg, 07/26/23 9:32:00 EST, Weight Dosing gabapentin, 300 mg = 1 cap(s), Oral, Daily, # 30 cap(s), Refills(s) 0, Pharmacy: [facility], 176.5, cm, 07/26/23 9:32:00 EST, Height/Length Dosing, 187.2, kg, 07/26/23 9:32:00 EST, Weight Dosing 2. Fatigue (R53.83: Other fatigue) labs drawn today Ordered: Lab Specimen Collect 09365 Testosterone Level Total 3. Hypogonadism male (E29.1: Testicular hypofunction) testosterone ordered Ordered: Lab Specimen Collect 08132 Testosterone Level Total 4. BMI 60.0-69.9, adult (Z68.44: Body mass index [BMI] 60.0-69.9, adult) bmi education complete Ordered: cyclobenzaprine, 10 mg = 1 tab(s), Oral, Bedtime, PRN for spasm, # 30 tab(s), Refills(s) 0, Pharmacy: [facility], 176.5, cm, 07/26/23 9:32:00 EST, Height/Length Dosing, 187.2, kg, 07/26/23 9:32:00 EST, Weight Dosing gabapentin, 300 mg = 1 cap(s), Oral, Daily, # 30 cap(s), Refills(s) 0, Pharmacy: [facility], 176.5, cm, 07/26/23 9:32:00 EST, Height/Length Dosing, 187.2, kg, 07/26/23 9:32:00 EST, Weight Dosing Testosterone Level Total Vitamin B12 Level Vitamin D 25 Hydroxy Follow-up No qualifying data available Patient Education Obesity, Adult, Aeay-xo-Nmfj Problem List/Past Medical History Ongoing Encounter for [...] ago Tob (more content not included)... Normal [facility] Comment on above: Result Comment: [...] food choices, such as grocery stores and [employer]. What are the signs or symptoms? The [...] How much exercise you get. ? Take hjui-ciz-hfsatmh and prescription medicines only as told by [...] with yo (more content not included)... Normal [facility] Vit B12on 08-23-2023 Cobalamin (Vitamin B12) [Mass/Vol] 301 pg/mL Normal 50-1500 [facility] Comment on above: Performed By: #### 2 [id number], [id number], [id number] #### [facility] [address] [place] [address] Vitamin D 25 Hydroxyon 08-23 Vitamin D 25 Hydroxy 57.7 ng/mL Normal 30.0-100.0 [facility] Comment on above: Performed By: #### 2 [id number], [id number], [id number] ####[facility] [address] [place] [address] Ambulatory Visit Summaryon 1 09-25-2022 Ambulatory Visit [...] 9:20 AM EST With: Alexia Muhammad Where: [facility] Medicine Shanique Normal [facility] Family Medicine Office/Clini c Noteon [...] spasm, # 30 tab(s), Refills(s) 0, Pharmacy: [facility], 176.5, cm, 07/26/23 9:32:00 EST, Height/Length Dosing, 187.2, kg, 07/26/23 9:32:00 EST, Weight Dosing gabapentin, 300 mg = 1 cap(s), Oral, Daily, # 30 cap(s), Refills(s) 0, Pharmacy: [facility], 176.5, cm, 07/26/23 9:32:00 EST, Height/Length Dosing, 187.2, kg, 07/26/23 9:32:00 EST, Weight Dosing methylPREDNISolone, = 1 packet(s), Oral, As Directed, as directed on package labeling, X 6 day(s), # 21 tab(s), Refills(s) 0, Pharmacy: [facility], 176.5, cm, 07/26/23 9:32:00 EST, Height/Length [...] spasm, # 30 tab(s), Refills(s) 0, Pharmacy: [facility], 176.5, cm, 07/26/23 9:32:00 EST, Height/Length Dosing, 187.2, kg, 07/26/23 9:32:00 EST, Weight Dosing gabapentin, 300 mg = 1 cap(s), Oral, Daily, # 30 cap(s), Refills(s) 0, Pharmacy: [facility], 176.5, cm, 07/26/23 9:32:00 EST, Height/Length Dosing, 187.2, kg, 07/26/23 9:32:00 EST, Weight Dosing methylPREDNISolone, = 1 packet(s), Oral, As Directed, as directed on package labeling, X 6 day(s), # 21 tab(s), Refills(s) 0, Pharmacy: [facility], 176.5, cm, 07/26/23 9:32:00 EST, Height/Length Dosing, 187.2, kg, 07/26/23 9:32:00 EST, Weight Dosing 3. Numbness and tingling of foot (R20.0: Anesthesia of skin) discussed ENG results Ordered: cyclobenzaprine, 10 mg = 1 tab(s), Oral, Bedtime, PRN for spasm, # 30 tab(s), Refills(s) 0, Pharmacy: [facility], 176.5, cm, 07/26/23 9:32:00 EST, Height/Length Dosing, 187.2, kg, 07/26/23 9:32:00 EST, Weight Dosing gabapentin, 300 mg = 1 cap(s), Oral, Daily, # 30 cap(s), Refills(s) 0, Pharmacy: [facility], 176.5, cm, 07/26/23 9:32:00 EST, Height/Length Dosing, 187.2, kg, 07/26/23 9:32:00 EST, Weight Dosing methylPREDNISolone, = 1 packet(s), Oral, As Directed, as directed on package labeling, X 6 day(s), # 21 tab(s), Refills(s) 0, Pharmacy: [facility], 176.5, cm, 07/26/23 9:32:00 EST, Height/Length Dosing, 187.2, kg, 07/26/23 9:32:00 EST, Weight Dosing 4. Class 3 obesity (E66.01: Morbid (severe) obesity due to excess calories) pt continues with diet Ordered: cyclobenzaprine, 10 mg = 1 tab(s), Oral, Bedtime, PRN for spasm, # 30 tab(s), Refills(s) 0, Pharmacy: [facility], 176.5, cm, 07/26/23 9:32:00 EST, Height/Length Dosing, 187.2, kg, 07/26/23 9:32:00 EST, Weight Dosing gabapentin, 300 mg = 1 cap(s), Oral, Daily, # 30 cap(s), Refills(s) 0, Pharmacy: [facility], 176.5, cm, 07/26/23 9:32:00 EST, Height/Length Dosing, 187.2, kg, 07/26/23 9:32:00 EST, Weight Dosing methylPREDNISolone, = 1 packet(s), Oral, As Directed, as directed on package labeling, X 6 day(s), # 21 tab(s), Refills(s) 0, Pharmacy: [facility], (more content not included)... Normal [facility] Comment on above: Result Comment: Elec tronically Signed By: Alexia Muhammad\.br\Date and Time Signed: 07/26/23 09:54 EST EMG Electromyographyon 07-10 EMG Electromyography [id number]#1 .00TIFF [facility] EMG Electromyography [id number]#1. 00TIFF [facility] Physician Referralon 023 Physician Referral [id number]# 1.00TIFF [facility] Ambulatory Visit Summaryon 1 Ambulatory Visit [...] 9:20 AM EST With: Alexia Muhammad Where: [facility] Family Medicine Office/Clini c Noteon 06-21-2023 [...] day(s), # 30 tab(s), Refills(s) 1, Pharmacy: [facility], 176.5, cm, 06/21/23 9:41:00 EDT, Height/Length Dosing, 186.7, kg, 06/21/23 9:41:00 EDT, Weight Dosing meloxicam, 15 mg = 1 tab(s), Oral, Daily, X 30 day(s), # 30 tab(s), Refills(s) 0, Pharmacy: [facility], 176.5, cm, 06/21/23 9:41:00 EDT, Height/Length Dosing, 186.7, kg, 06/21/23 9:41:00 EDT, Weight Dosing meloxicam, 15 mg = 1 tab(s), Oral, Daily, # 30 tab(s), Refills(s) 1, Pharmacy: [facility], 176.5, cm, 05/22/23 9:51:00 EDT, Height/Length Dosing, 190.2, kg, 05/22/23 9:51:00 EDT, Weight Dosing 2. Left sciatic nerve pain (M54.32: Sciatica, left side) pt continues to have left sciatic nerve pain but it is improved Ordered: meloxicam, 15 mg = 1 tab(s), Oral, Daily, X 30 day(s), # 30 tab(s), Refills(s) 1, Pharmacy: [facility], 176.5, cm, 06/21/23 9:41:00 EDT, Height/Length Dosing, 186.7, kg, 06/21/23 9:41:00 EDT, Weight Dosing meloxicam, 15 mg = 1 tab(s), Oral, Daily, X 30 day(s), # 30 tab(s), Refills(s) 0, Pharmacy: [facility], 176.5, cm, 06/21/23 9:41:00 EDT, Height/Length Dosing, 186.7, kg, 06/21/23 9:41:00 EDT, Weight Dosing meloxicam, 15 mg = 1 tab(s), Oral, Daily, # 30 tab(s), Refills(s) 1, Pharmacy: [facility], 176.5, cm, 05/22/23 9:51:00 EDT, Height/Length Dosing, 190.2, kg, 05/22/23 9:51:00 EDT, Weight Dosing phentermine, 37.5 mg = 1 tab(s), Oral, Daily, X 30 day(s), # 30 tab(s), Refills(s) 0, Pharmacy: [facility], 176.5, cm, 05/22/23 9:51:00 EDT, Height/Length Dosing, 190.2, kg, 05/22/23 9:51:00 EDT, Weight Dosing [facility] External Ambulatory Referral 3. Lower extremity numbness (R20.0: Anesthesia of skin) EMG order sent to [facility] in [place] Ordered: [facility] External Ambulatory Referral 4. Morbid obesity due to excess calories (E66.01: Morbid (severe) obesity due to excess calories) BMI education complete Ordered: meloxicam, 15 mg = 1 tab(s), Oral, Daily, X 30 day(s), # 30 tab(s), Refills(s) 1, Pharmacy: [facility], 176.5, cm, 06/21/23 9:41:00 EDT, Height/Length Dosing, 186.7, kg, 06/21/23 9:41:00 EDT, Weight Dosing meloxicam, 15 mg = 1 tab(s), Oral, Daily, X 30 day(s), # 30 tab(s), Refills(s) 0, Pharmacy: [facility], 176.5, cm, 06/21/23 9:41:00 EDT, Height/Length Dosing, 186.7, kg, 06/21/23 9:41:00 EDT, Weight Dosing meloxicam, 15 mg = 1 tab(s), Oral, Daily, # 30 tab(s), Refills(s) 1, Pharmacy: [facility], 176.5, cm, 05/22/23 9:51:00 EDT, Height/Length Dosing, 190.2, kg, 05/22/23 9:51:00 EDT, Weight Dosing phentermine, 37.5 mg = 1 tab(s), Oral, Daily, X 30 day(s), # 30 tab(s), Refills(s) 0, Pharmacy: [facility], 176.5, cm, 05/22/23 9:51:00 EDT, Height/Length Dosing, 190.2, kg, 05/22/23 9:51:00 EDT, Weight Dosing 5. BMI 50.0-59.9, adult (Z68.43: Body mass index [BMI] 50.0-59.9, adult) BMI education complete 6. Non-smoker (Z78.9: Other specified health status) continue not smoking Ordered: meloxicam, 15 mg = 1 tab(s), Oral, Daily, X 30 day(s), # 30 tab(s), Refills(s) 1, Pharmacy: [facility], 176.5, cm, 06/21/23 9:41:00 EDT, Height/Length Dosing, 186.7, kg, 06/21/23 9:41:00 EDT, Weight Dosing meloxicam, 15 mg = 1 tab(s), Or (more content not included)... [facility] Comment on above: Result Comment: Elec [...] 9:20 AM EDT With: Alexia Muhammad Where: [facility] Ambulatory Visit Summary RAKESH PIÑA :1975 Visit [...] 9:20 AM EDT With: Alexia Muhammad Where: [facility] Normal [facility] Medicine Office/Clini c Noteon 05-22-2023 Family Medicine [...] in his legs at night. pt will cook pickled meat some OTC potassium to see if that helps. all questions answered. RTC 4 weeks Ordered: meloxicam, 15 mg = 1 tab(s), Oral, Daily, # 30 tab(s), Refills(s) 1, Pharmacy: [facility], 176.5, cm, 05/22/23 9:51:00 EDT, Height/Length Dosing, 190.2, kg, 05/22/23 9:51:00 EDT, Weight Dosing 2. Left sciatic nerve pain (M54.32: Sciatica, left side) will order antiinflammatory. steroid did not give him any relief Ordered: meloxicam, 15 mg = 1 tab(s), Oral, Daily, # 30 tab(s), Refills(s) 1, Pharmacy: [facility], 176.5, cm, 05/22/23 9:51:00 EDT, Height/Length Dosing, 190.2, kg, 05/22/23 9:51:00 EDT, Weight Dosing phentermine, 37.5 mg = 1 tab(s), Oral, Daily, X 30 day(s), # 30 tab(s), Refills(s) 0 phentermine, 37.5 mg = 1 tab(s), Oral, Daily, X 30 day(s), # 30 tab(s), Refills(s) 0, Pharmacy: [facility], 176.5, cm, 05/22/23 9:51:00 EDT, Height/Length Dosing, 190.2, kg, 05/22/23 9:51:00 EDT, Weight Dosing 3. BMI 60.0-69.9, adult (Z68.44: Body mass index [BMI] 60.0-69.9, adult) BMI education complete Ordered: meloxicam, 15 mg = 1 tab(s), Oral, Daily, # 30 tab(s), Refills(s) 1, Pharmacy: [facility], 176.5, cm, 05/22/23 9:51:00 EDT, Height/Length Dosing, 190.2, kg, 05/22/23 9:51:00 EDT, Weight Dosing 4. Morbid obesity due to excess calories (E66.01: Morbid (severe) obesity due to excess calories) see above Ordered: meloxicam, 15 mg = 1 tab(s), Oral, Daily, # 30 tab(s), Refills(s) 1, Pharmacy: [facility], 176.5, cm, 05/22/23 9:51:00 EDT, Height/Length Dosing, 190.2, kg, 05/22/23 9:51:00 EDT, Weight Dosing phentermine, 37.5 mg = 1 tab(s), Oral, Daily, X 30 day(s), # 30 tab(s), Refills(s) 0 phentermine, 37.5 mg = 1 tab(s), Oral, Daily, X 30 day(s), # 30 tab(s), Refills(s) 0, Pharmacy: [facility], 176.5, cm, 05/22/23 9:51:00 EDT, Height/Length Dosing, 190.2, kg, 05/22/23 9:51:00 EDT, Weight Dosing 5. Non-smoker (Z78.9: Other specified health status) continue not smoking Ordered: meloxicam, 15 mg = 1 tab(s), Oral, Daily, # 30 tab(s), Refills(s) 1, Pharmacy: [facility], 176.5, cm, 05/22/23 9:51:00 EDT, Height/Length Dosing, 190.2, kg, 05/22/23 9:51:00 EDT, Weight Dosing phentermine, 37.5 mg = 1 tab(s), Oral, Daily, X 30 day(s), # 30 tab(s), Refills(s) 0 phentermine, 37.5 mg = 1 tab(s), Oral, Daily, X 30 day(s), # 30 tab(s), Refills(s) 0, Pharmacy: [facility], 176.5, cm, 05/22/23 9:51:00 EDT, Height/Length [...] Daily Allerg (more content not included)... Normal [facility] Comment on above: Result Comment: Elec tronically Signed By: Alexia Muhammad\.br\Date and Time Signed: 05/22/23 10:34 EDT [place] 04-26-2023 Consent [id number] .00CD:127 [facility] Family Medicine Office/Clini c Noteon 04-24-2023 [...] give kenalog 60mg IM in office today. [facility] Comment on above: Result Comment: Elec [...] 11:00 AM EDT With: Alexia Muhammad Where: [facility] Auto Diffon 03-19-2023 Basophils/100 WBC (Bld) 0.3 % Normal 0.0-2.0 [facility] Comment on above: Order Comment: Order Added by Discern Expert. Performed By: #### 2 724386, [id number], 1468320, [id number] ####[address] [place] [address] Basophils/Leukocytes Auto (Bld) [Pure # fraction] 0.0 E9/L Normal 0.0-0.2 [facility] Comment on above: Order Comment: Order Added by Discern Expert. Performed By: #### 2 906530, 8787073, 7553326, [id number], [id number] ####[address] [address] Eosinophils/100 WBC (Bld) 2.1 % Normal 0.0-8.0 [facility] Comment on above: Order Comment: Order Added by Discern Expert. Performed By: #### 2 880227, 7359271, 9097816, 2389128, [id number] ####[address] [address] Eosinophils/Leukocytes Auto (Bld) [Pure # fraction] 0.2 E9/L Normal 0.0-0.5 [facility] Comment on above: Order Comment: Order Added by Nellie Expert. Performed By: #### 2 085939, 3782456, 3135592, 8305924, [id number] ####[address] [address] Lymphocytes/100 WBC (Bld) 20.5 % Normal 14.0-50.0 [facility] Comment on above: Order Comment: Order Added by Nellie Expert. Performed By: #### 2 747926, 0448594, 8750001, 0995270, [id number] ####[address] [address] Lymphocytes/Leukocytes Auto (Bld) [Pure # fraction] 1.6 E9/L Normal 1.0-4.0 [facility] Comment on above: Order Comment: Order Added by Discern Expert. Performed By: #### 2 898128, 4414385, 0591137, 2802204, [id number] ####[address] [place] [address] Monocytes/100 WBC (Bld) 8.7 % Normal 4.0-14.0 [facility] Comment on above: Order Comment: Order Added by Discern Expert. Performed By: #### 2 808345, 0622913, 2823083, 5919790, [id number] ####[address] [place] [address] Monocytes/Leukocytes Auto (Bld) [Pure # fraction] 0.7 E9/L Normal 0.2-1.0 [facility] Comment on above: Order Comment: Order Added by Nellie Expert. Performed By: #### 2 688360, 2766734, 8934106, 8086721, [id number] ####[address] [address] Neutrophils/100 WBC (Bld) 68.4 % Normal 36.0-75.0 [facility] Comment on above: Order Comment: Order Added by Nellie Expert. Performed By: #### 2 367022, 7698036, 8169915, 8754360, [id number] ####[address] [address] Neutrophils/Leukocytes Auto (Bld) [Pure # fraction] 5.3 E9/L Normal 2.0-7.5 [facility] Comment on above: Order Comment: Order Added by Discern Expert. Performed By: #### 2 750361, 3379827, 5357136, 2590420, [id number] ####[address] [address] CBC w/ Auto Diffon 3 Erythrocyte distribution width (RBC) [Ratio] 16.3 % High 10.9-14.2 [facility] Comment on above: Performed By: #### 2 365755, 8186671, 6913550, 9029543, [id number] ####[facility] [id number] [place] [address] Hematocrit (Bld) [Volume fraction] 43.7 % Normal 37.7-49.0 [facility] Comment on above: Performed By: #### 2 840562, 2790035, 2794208, 3165138, [id number] ####[id number] [place] [address] Hemoglobin (Bld) [Mass/Vol] 14.4 g/dL Normal 13.5-17.5 [facility] Comment on above: Performed By: #### 2 855205, 3120751, 6598593, 9548142, [id number] ####[address] [address] MCH (RBC) [Entitic mass] 27.9 pg Normal 27.0-34.0 [facility] Comment on above: Performed By: #### 2 329685, 1764480, 2962342, 9280378, [id number] ####[address] [address] MCHC (RBC) [Mass/Vol] 33.0 g/dL Normal 31.4-36.0 [facility] Comment on above: Performed By: #### 2 743007, 9922919, 9640434, 2250658, [id number] ####[address] [address] MCV (RBC) [Entitic vol] 84.8 fL Normal 80.0-100.0 [facility] [facility] Comment on above: Performed By: #### 2 [id number], [id number], 9055079, 5113052, [id number] ####[address] [address] Platelet mean volume (Bld) [Entitic vol] 7.7 fL Normal 6.4-10.8 [facility] Comment on above: Performed By: #### 2 847136, 3390052, 9501938, 6796073, [id number] ####[facility] [address] [place] [address] Platelets (Bld) [#/Vol] 278.0 E9/L Normal 150.0-500.0 [facility] Comment on above: Performed By: #### 2 851352, 8162142, 9006620, 3096696, [id number] ####[facility] [address] [place] [address] RBC (Bld) [#/Vol] 5.2 E12/L Normal 4.3-5.9 [facility] Comment on above: Performed By: #### 2 239023, 6138464, 4807767, 8737127, 13142107 ####[facility] [address] [place] [address] WBC corrected for nucl RBC Auto (Bld) [#/Vol] 7.7 E9/L Normal 4.0-11.0 [facility] Comment on above: Performed By: #### 2 935726, 8850408, 2505542, 2460496, [id number] ####[facility] [address] [place] [address] CHEMISTRYOrdered By: SYSTEM SYSTEM on 03-19-2023 Cholesterol [...] day(s), # 21 tab(s), Refills(s) 0, Pharmacy: [facility]/pharmacy #[id number], 176.5, cm, 03/19/23 13:15:00 EDT, Height/Length Dosing phentermine, 37.5 mg = 1 tab(s), Oral, Daily, # 30 tab(s), Refills(s) 0, Pharmacy: [facility]/pharmacy #[id number], 176.5, cm, 03/19/23 13:15:00 EDT, [...] day(s), # 21 tab(s), Refills(s) 0, Pharmacy: [facility]/pharmacy #[id number], 176.5, cm, 03/19/23 13:15:00 EDT, Height/Length Dosing phentermine, 37.5 mg = 1 tab(s), Oral, Daily, # 30 tab(s), Refills(s) 0, Pharmacy: [facility]/pharmacy #[id number], 176.5, cm, 03/19/23 13:15:00 EDT, Height/Length Dosing CBC w/ Auto Diff Cologuard Screening Test Lipid Panel PSA Screen, Total Thyroid Stimulating Hormone 3. Non-smoker (Z78.9: Other specified health status) continue not smoking Ordered: methylPREDNISolone, = 1 packet(s), Oral, As Directed, as directed on package labeling, X 6 day(s), # 21 tab(s), Refills(s) 0, Pharmacy: [facility]/pharmacy #[id number], 176.5, cm, 03/19/23 13:15:00 [...] screening (Z12.11: (more content not included)... Normal [facility] Comment on above: Result Comment: Elec tronically Signed By: Alexia Muhammad\.br\Date and Time Signed: 03/19/23 14:00 EDT Formson 03-19-2023 Forms [id number]:127 Normal [facility] HEMATOLOGYOrdered By: SYSTEM SYSTEM on [...] E9/L Normal 4.0 - 11.0 E9/L [facility] HemeAutoSS Lipid Panelon 03-19-2023 Cholesterol [Mass/Vol] 171 mg/dL Normal 120-200 [facility] Comment on above: Performed By: #### 2 748907, 2351939, 8175086, 1170555, [id number] ####[facility] [address] [place] [address] Cholesterol in HDL [Mass/Vol] 39 mg/dL Invalid Interpretation Code [facility] Comment on above: Result Comment: HDL > or equal to 60 mg/dL: Low cardiovascular risk HDL < 40 mg/dL : High cardiovascular risk Performed By: #### 2 015657, 2775453, 8548061, 6760101, [id number] ####[facility] [address] [place] [address] Cholesterol in LDL [Mass/Vol] 112 mg/dL Normal <=129 [facility] Comment on above: Performed By: #### 2 004457, 8207796, 4178215, 3886003, 41951052 ####[facility] [address] [place] [address] Cholesterol in VLDL [Mass/Vol] 19 mg/dL Normal 7-40 [facility] Comment on above: Performed By: #### 2 626971, 9304692, 9745697, 4834916, 93314999 ####[facility] [address] [place] [address] Triglyceride [Mass/Vol] 94 mg/dL Normal <=149 [facility] Comment on above: Performed By: #### 2 760793, 2375356, 7901974, 9079507, 28069093 ####[facility] [address] [place] [address] PSA Screen, Totalon 03-19-20 23 Prostate specific Ag [Mass/Vol] 0.9 ng/mL Normal 0.1-3.5 [facility] Comment on above: Result Comment: The concentration of PSA determined by different manufacturers can vary due to differences in assay methods and reagent specificity. Values obtained from different assay methods cannot be used interchangeably. The methodology used for this result was chemiluminescence using [employer] Access Hybritech PSA reagent. Performed By: #### 2 748716, 6988461, 2996622, 7735492, [id number] ####[facility] [address] [place] [address] TSHon 03-19-2023 TSH Qn 2.03 m[IU]/L Normal 0.34-5.60 [facility] Comment on above: Performed By: #### 2 935684, 5362681, 4266931, 0840823, 80449672 ####[facility] [address] [place] [address] [facility]-11 SARS-CoV-2 (COVID-19) RNA BETHANY+probe Ql (Unsp spec) Not detected Normal NOT DETECTED [facility] Comment on above: Result Comment: When diagnostic [...] for this test is supported by the [place] of Health and Human Service's declaration that [...] #### C VDTBH #### [facility] [address] [place] [address] Dr. Mynor Yun GROUP A STREP CULTUREon 07-11 S. pyogenes Ag Ql (Unsp spec) Culture Observations: NEGATIVE FOR GROUP A STREPTOCOCCUS. Normal [facility] Comment on above: Performed By: #### G RASTCX #### [facility] [address] [place] [address] Dr. Mynor Yun INFLUENZA A AND B AGon 07-28 INFLUANEGH SEE BELOW Normal [facility] Comment on above: Result Comment: Nega tive for Flu A protein angiten. Infection due to Flu A cannot be ruled out. Flu A angiten in the sample may be below the detection limit of the test. Performed By: #### I NFLUAB #### [facility] [address] [place] [address] Dr. Mynor Yun INFLUBNEGH SEE BELOW Normal [facility] Comment on above: Result Comment: Nega tive for Flu B protein antigen. Infection due to Flu B cannot be ruled out. Flu B antigen in the sample may be below the detection limit of the test. Performed By: #### I NFLUAB #### [facility] [address] [place] [address] Dr. Mynor Yun INFLUENZA A AG Negative Normal NEGATIVE SEE COMMENT [facility] Comment on above: Performed By: #### I NFLUAB #### [facility] [address] [place] [address] Dr. Mynor Yun INFLUENZA B AG Negative Normal NEGATIVE SEE COMMENT [facility] Comment on above: Performed By: #### I NFLUAB #### [facility] [address] [place] [address] Dr. Mynor Yun INTERNAL CONTROLS Within Normal Limits Normal Wi thin Normal Limits [facility] Comment on above: Performed By: #### I NFLUAB #### [facility] [address] [place] [address] Dr. Mynor Yun STREPT SCREENon 07-28-2022 STREP SCREEN A Negative Normal NEGATIVE [facility] Comment on above: Performed By: #### S SCRN #### [facility] [address] [place] [address] Dr. Mynor Yun XR SINUSES 3 VIEWS [...] by: KELLIE SMALLS Date: 2022-02-01 09:58 Normal [facility] HAND LEFT 3 Son 12-29-2021 HAND LEFT 3 [facility] Department of Radiology [address] [place] [id number] Patient Name: RAKESH PIÑA : 1975 Sex: M Age: Race: White Pt. Location: Patient Status: D Ordered Date: 12/29/2021 11:45:00 AM Completed Date: 12/29/2021 11:50 AM Requesting Provider: LORI DALLAS Attending Provider: LORI DALLAS Report Copy To: Signs & Symptoms: M79.642 Pain in left hand I10 History: Comments: Evaluate Exam: HAND LEFT 3 [facility] HAND LEFT 3 [facility] 12/29/2021 11:50 AM CLINICAL INDICATIONS: [...] alignment. Electronically signed: Heather Montana. Transcribed by: [email or web address], User Resident: Electronically Signed by: HEATHER MONTANA @ 12/31/2021 08:55 AM Normal [facility] Comment on above: Order Comment: Evalu ate HAND LEFT 3 VWSon 12-08-2021 HAND LEFT 3 [facility] Department of Radiology [address] [place] [id number] Patient Name: RAKESH PIÑA : 1975 Sex: M Age: Race: White Pt. Location: Patient Status: D Ordered Date: 12/08/2021 1:25:00 PM Completed Date: 12/08/2021 01:29 PM Requesting Provider: LORI DALLAS Attending Provider: LORI DALLAS Report Copy To: Signs & Symptoms: M79.642 Pain in left hand I10 History: Jeff Comments: Evaluate Exam: HAND LEFT 3 S [...] bridging. Electronically signed: Ronaldo Major. Transcribed by: [email or web address], User Resident: Electronically Signed by: RONALDO MAJOR @ 12/09/2021 04:04 PM Normal [facility] Comment on above: Order Comment: Evalu ate HAND LEFT 3 VWSon 11-14-2021 HAND LEFT 3 [facility] Department of Radiology [address] [place] [id number] Patient Name: RAKESH PIÑA : 1975 [...] fracture. Electronically signed: Ramirez Smith. Transcribed by: [email or web address], User Resident: Electronically Signed by: RAMIREZ Eleazar SMITH @ 11/14/2021 08:02 PM Normal [facility] Comment on above: Order Comment: Views (X-RAY, HAND): PA, Lateral, Oblique TESTOSTERONE, TOTALon 2021 Testosterone [Mass/Vol] 411 ng/dL Normal 264-916 [facility] Comment on above: Result Comment: Adul t male reference interval is based on a population of healthy nonobese males (BMI <30) between 19 and 39 years old. Iron et.al. JCEM 2017,102;9415-7285. PMID: [id number]. Performed By: #### T ESTTOT #### [facility] [address] [place] [address] Dr. Mynor Yun CBC AUTO DIFFon 11-11-2021 BASO # 0.0 103/ul Normal 0.0-0.1 [facility] Comment on above: Performed By: #### C BC #### [facility] [address] [place] [address] Dr. Mynor Yun Basophils/100 WBC (Bld) 0.2 % Normal 0.2-2.0 [facility] Comment on above: Performed By: #### C BC #### [facility] [address] [place] [address] Dr. Mynor Yun EO # 0.1 103/ul Normal 0.0-0.7 [facility] Comment on above: Performed By: #### C BC #### [facility] [address] [place] [address] Dr. Mynor Yun Eosinophils/100 WBC (Bld) 1.2 % Normal 0.9-7.0 [facility] Comment on above: Performed By: #### C BC #### [facility] [address] [place] [address] Dr. Mynor Yun Erythrocyte distribution width (RBC) [Ratio] 14.3 % Normal 11.0-15.0 [facility] Comment on above: Performed By: #### C BC #### [facility] [address] [place] [address] Dr. Mynor Yun Hematocrit (Bld) [Volume fraction] 47.3 % Normal 42.0-54.0 [facility] Comment on above: Performed By: #### C BC #### [facility] [address] [place] [address] Dr. Mynor Yun Hemoglobin (Bld) [Mass/Vol] 15.2 g/dL Normal 14.0-18.0 [facility] Comment on above: Performed By: #### C BC #### [facility] [address] [place] [address] Dr. Mynor Yun IG # 0.03 10e3/ul Normal 0.00-0.03 [facility] Comment on above: Performed By: #### C BC #### [facility] [address] [place] [address] Dr. Mynor Yun IG % 0.3 % Normal 0.0-0.5 [facility] Comment on above: Performed By: #### C BC #### [facility] [address] [place] [address] Dr. Mynor Yun LYMPH # 1.6 103/ul Normal 1.2-3.8 [facility] Comment on above: Performed By: #### C BC #### [facility] [address] [place] [address] Dr. Mynor Yun Lymphocytes/100 WBC (Bld) 18.4 % Critically low 20.5-60.0 [facility] Comment on above: Performed By: #### C BC #### [facility] [address] [place] [address] Dr. Mynor Yun MANUAL DIFF REQ NO Normal [facility] Comment on above: Performed By: #### C BC #### [facility] [address] [place] [address] Dr. Mynor Yun MCH (RBC) [Entitic mass] 28.8 pg Normal 25.9-34.0 [facility] Comment on above: Performed By: #### C BC #### [facility] [address] [address] [address] Mynor Yun MCHC (RBC) [Mass/Vol] 32.1 g/dL Normal 29.9-35.2 [facility] Comment on above: Performed By: #### C BC #### [facility] [address] [place] [address] Dr. Mynor Yun MCV (RBC) [Entitic vol] 89.8 fL Normal 80.0-94.0 [facility] Comment on above: Performed By: #### C BC #### [facility] [address] [place] [address] Dr. Mynor Yun MONO # 0.7 103/ul Normal 0.3-0.8 [facility] Comment on above: Performed By: #### C BC #### [facility] [address] [place] [address] Dr. Mynor Yun Monocytes/100 WBC (Bld) 8.4 % Normal 1.7-12.0 [facility] Comment on above: Performed By: #### C BC #### [facility] [address] [place] [address] Dr. Mynor Yun NEUT # 6.2 103/ul Normal 1.4-6.5 [facility] Comment on above: Performed By: #### C BC #### [facility] [address] [place] [address] Dr. Mynor Yun Neutrophils/100 WBC (Bld) 71.5 % Normal 43.0-75.0 [facility] Comment on above: Performed By: #### C BC #### [facility] [address] [place] [address] Dr. Mynor Yun Platelet mean volume (Bld) [Entitic vol] 8.7 fL Critically low 9.5-13.5 [facility] Comment on above: Performed By: #### C BC #### [facility] [address] [place] [address] Dr. Mynor Yun PLT 263 103/ul Normal 150-450 [facility] Comment on above: Performed By: #### C BC #### [facility] [address] [address] [address] Mynor Yun RBC 5.27 106/ul Normal 4.70-6.10 [facility] Comment on above: Performed By: #### C BC #### [facility] [address] [address] [address] Mynor Yun WBC 8.7 103/ul Normal 4.0-11.0 [facility] Comment on above: Performed By: #### C BC #### [facility] [address] [address] [address] Mynor Yun LIPID PROFILEon 11-11-2021 CHOL-HDL RATIO NORM SEE BELOW Normal [facility] Comment on above: Result Comment: 3.3 - 4.4 LOW RISK 4.4 - 7.1 AVERAGE RISK 7.1 - 11.0 MODERATE RISK >11.0 HIGH RISK Performed By: #### S SCRN #### [facility] [address] [place] [address] Dr. Mynor Yun Cholesterol [Mass/Vol] 129 mg/dL Normal <=200 [facility] Comment on above: Performed By: #### S SCRN #### [facility] [address] [address] [address] Mynor Yun Cholesterol in HDL [Mass/Vol] 34 mg/dL Normal [facility] Comment on above: Performed By: #### S SCRN #### [facility] [address] [address] [address] Mynor Yun Cholesterol in LDL [Mass/Vol] 82.2 mg/dL Normal [facility] Comment on above: Performed By: #### S SCRN #### [facility] [address] [address] [address] Mynor Yun Cholesterol.total/Chol esterol in HDL [Mass ratio] 3.8 {ratio} Normal [facility] Comment on above: Performed By: #### S SCRN #### [facility] [address] [address] [address] Mynor Yun HDL NORMAL > or = 60 mg/dl - LO W CARDIOVASCULAR RISK <40 mg/dl - HIGH CARDIOVASCULAR RISK Normal [facility] Comment on above: Performed By: #### S SCRN #### [facility] [address] [address] [address] Mynor Yun LDL CALC NORMAL SEE BELOW Normal [facility] Comment on above: Result Comment: <100 mg/dl OPTIMAL 100 - 129 mg/dl NEAR OR ABOVE OPTIMAL 130 - 159 mg/dl BORDERLINE HIGH 160 - 189 mg/dl HIGH >190 mg/dl VERY HIGH Performed By: #### S SCRN #### [facility] [address] [address] [address] Mynor Yun Triglyceride [Mass/Vol] 64 mg/dL Normal <=150 [facility] Comment on above: Performed By: #### S SCRN #### [facility] [address] [place] [address] Dr. Mynor Yun VLDL CALC 12.8 mg/dL Normal [facility] Comment on above: Performed By: #### S SCRN #### [facility] [address] [place] [address] Dr. Mynor Yun PROF 14(COMP METB)on 022 Albumin [Mass/Vol] 3.8 g/dL Normal 3.5-5.0 [facility] Comment on above: Performed By: #### T SH, LIPID, CMP #### [facility] [address] [place] [address] Dr. Mynor Yun Albumin/Globulin [Mass ratio] 0.9 {ratio} Normal [facility] Comment on above: Performed By: #### T SH, LIPID, CMP #### [facility] [address] [place] [address] Dr. Mynor Yun ALP [Catalytic activity/Vol] 76 U/L Normal 38-126 [facility] Comment on above: Performed By: #### T SH, LIPID, CMP #### [facility] [address] [place] [address] Dr. Mynor Yun ALT [Catalytic activity/Vol] 49 U/L Normal 21-72 [facility] Comment on above: Performed By: #### T SH, LIPID, CMP #### [facility] [address] [address] [address] Mynor Yun Anion gap [Moles/Vol] 11.2 mmol/L Normal [facility] Comment on above: Performed By: #### T SH, LIPID, CMP #### [facility] [address] [address] [address] Mynor Yun AST [Catalytic activity/Vol] 31 U/L Normal 17-59 [facility] Comment on above: Performed By: #### T SH, LIPID, CMP #### [facility] [address] [address] [address] Mynor Yun Bilirubin [Mass/Vol] 0.5 mg/dL Normal 0.2-1.3 [facility] Comment on above: Performed By: #### T SH, LIPID, CMP #### [facility] [address] [address] [address] Myonr Yun Calcium [Mass/Vol] 9.0 mg/dL Normal 8.4-10.2 [facility] Comment on above: Performed By: #### T SH, LIPID, CMP #### [facility] [address] [address] [address] Mynor Yun Chloride [Moles/Vol] 104 mmol/L Normal 98-107 [facility] Comment on above: Performed By: #### T SH, LIPID, CMP #### [facility] [address] [address] [address] Mynor Yun CO2 [Moles/Vol] 30.6 mmol/L Critically high 22.0-30.0 [facility] Comment on above: Performed By: #### T SH, LIPID, CMP #### [facility] [address] [address] [address] Mynor Yun Creatinine [Mass/Vol] 0.95 mg/dL Normal 0.66-1.25 [facility] Comment on above: Performed By: #### T SH, LIPID, CMP #### [facility] [address] [address] [address] Mynor Yun EGFR-AF MONTENEGRIN >60 Normal >=60 [facility] Comment on above: Performed By: #### T SH, LIPID, CMP #### [facility] [address] [address] [address] Mynor Yun EGFR-NON AF MONTENEGRIN >60 Normal >=60 [facility] Comment on above: Performed By: #### T SH, LIPID, CMP #### [facility] [address] [address] [address] Mynor Yun Globulin (S) [Mass/Vol] 4.3 g/dL Normal [facility] Comment on above: Performed By: #### T SH, LIPID, CMP #### [facility] [address] [address] [address] Mynor Yun Glucose [Mass/Vol] 104 mg/dL Normal 74-106 [facility] Comment on above: Performed By: #### T SH, LIPID, CMP #### [facility] [address] [place] [address] Dr. Mynor Yun Potassium [Moles/Vol] 3.8 mmol/L Normal 3.4-5.0 [facility] Comment on above: Performed By: #### T SH, LIPID, CMP #### [facility] [address] [place] [address] Dr. Mynor Yun Protein [Mass/Vol] 8.1 g/dL Normal 6.1-8.2 [facility] Comment on above: Performed By: #### T SH, LIPID, CMP #### [facility] [address] [place] [address] Dr. Mynor Yun Sodium [Moles/Vol] 142 mmol/L Normal 137-145 [facility] Comment on above: Performed By: #### T SH, LIPID, CMP #### [facility] [address] [place] [address] Dr. Mynor Yun Urea nitrogen [Mass/Vol] 11.0 mg/dL Normal 9.0-20.0 [facility] Comment on above: Performed By: #### T SH, LIPID, CMP #### [facility] [address] [place] [address] Dr. Mynor Yun Urea nitrogen/Creatinine [Mass ratio] 11.6 mg/mg Normal [facility] Comment on above: Performed By: #### T SH, LIPID, CMP #### [facility] [address] [address] [address] Mynor Yun TSHon 11-11-2021 TSH 1.612 uIU/mL Normal 0.470-4.680 [facility] Comment on above: Performed By: #### T SH, LIPID, CMP #### [facility] [address] [address] [address] Mynor Yun TSH RANGE SEE BELOW Normal [facility] Comment on above: Result Comment: <0.3 4 UIU/ml HYPERTHYROID 0.34-5.60 UIU/ml EUTHYROID >5.60 UIU/ml HYPOTHYROID Performed By: #### T SH, LIPID, CMP #### [facility] [address] [address] [address] Mynor Yun Encounters Encounter Date Encounter Type Care Provider Facility Start: 03-10-2024 End: 03-10-2024 ambulatory Wilbert [facility]ner MD [facility]: [facility] Start: 02-25-2024 End: 02-25-2024 ambulatory Wilbert Buckner MD Facility: [facility] Start: 02-18-2024 End: 02-18-2024 ambulatory Wilbert Buckner MD Facility: [facility] Start: 01-23-2024 End: 01-26-2024 ambulatory ALEXIA TORSTEN [facility] Start: 01-16-2024 End: 01-16-2024 ambulatory [facility] Start: 01-14-2024 End: 01-14-2024 ambulatory Alexia L Torsten Facility[facility] Start: 01-09-2024 End: 01-09-2024 ambulatory Alexia L Torsten Facility:[facility] Start: 12-03-2023 End: 12-03-2023 ambulatory Wilbert Buckner MD Facility: [facility] Start: 11-05-2023 End: 11-05-2023 [facility] Start: 08-23-2023 End: 08-23-2023 ambulatory Alexia L Torsten Facility[facility] Start: 07-26-2023 End: 07-26-2023 ambulatory Alexia L Torsten [facility] Start: 06-21-2023 End: 06-21-2023 ambulatory Alexia L Torsten [facility] Start: 05-22-2023 End: 05-22-2023 ambulatory Alexia L Torsten [facility] Start: 04-24-2023 End: 04-24-2023 ambulatory [facility] Start: 03-19-2023 End: 03-19-2023 ambulatory Alexia L Torsten Facility:[facility] Start: 03-19-2023 End: 03-19-2023 Lab Drop off Alexia L Torsten [facility] Start: 03-19-2023 End: 03-19-2023 ambulatory Alexia L Torsten Facility:[facility] Start: 03-15-2023 ambulatory Alexia Torsten Facility:[facility] Start: 07-28-2022 End: 07-28-[address] LULU BLANK Facility:[facility] Start: 02-01-2022 End: 02-02-[address] LULU BLANK Facility:[facility] Start: 11-15-2021 Encounter for genera l adult medical examination without abnormal findings DR LULU BLANK [facility] Start: 11-11-2021 End: 11-12-[address] [...] virus vacc ine, unspecified formulation Alexia Torsten [facility] 11-12-2020 SARS-CoV-2 (COVID-19 ) mRNA BNT-162b2 vax Alexia Torsten [facility] 10-22-2020 SARS-CoV-2 (COVID-19 ) mRNA BNT-162x4 vax Alexia Torsten [facility] 03-10-2019 pneumococcal polysaccharide vaccine, 23 valent Alexia Torsten [facility] Payers Date Payer Category Payer Unknown 2022 Unknown [id number] 2019 Unknown [id number] 2013 Medicare 1975 Unknown [id number] 2.16.84 [id number] 1975 Unknown [id number] 2.16.84 0.1.084334.3.579.2.593 1975 Unknown [id number] 2.16.84 0.1.471986.3.579.2.593 1975 Unknown [id number] 2.16.84 0.1.533858.3.579.2.593 1975 Unknown [id number] 2.16.8 40.1.242222.3.579.2.182 1975 Unknown [id number] 2.16.8 40.1.958137.3.579.2.182 1975 Unknown [id number] 2.16.8 40.1.600058.3.579.2.727 1975 Unknown [id number] 2.16.8 40.1.900014.3.579.2.727 1975 Unknown [id number] 2.16.8 40.1.615007.3.579.2.727 1975 Unknown [id number] 2.16.8 40.1.893733.3.579.2.727 1975 Unknown [id number] 2.16.8 40.1.882011.3.579.2.727 1975 Unknown [id number] 2.16.8 40.1.443492.3.579.2.727 1975 Unknown [id number] 2.16.8 40.1.728626.3.579.2.727 1975 Unknown [id number] 2.16.8 40.1.473656.3.579.2.727 1975 Unknown [id number] 2.16.8 40.1.346854.3.579.2.727 1975 Unknown [id number] 2.16.8 [id number] 1975 Unknown [id number] 2.16.8 [id number] 1975 Unknown [id number] 2.16. [id number] 1975 Unknown [id number] 2.16. [id number] 1977 Unknown [id number] 2.16. [id number] 1977 Unknown [id number] 2.16. [id number] 1975 Unknown [id number] 2.16. [id number] 1957 Medicare [id number] 1957 Unknown [id number] Social History Date Type Detail Facility Start: 03-19-2023 Tobacco smoking status Ex-smoker (fi nding) [facility] Tobacco smoking status Never [facility] Sex Assigned At Male [facility] Clinical Note 11-10-2021 Note Date [...] authenticated by: KELLIE SMALLS Date: 2021-11-10 13:16 [facility] Evaluation + Plan note Note Date & Type [facility] Evaluation + Plan note Future Appointments Appointment Date:04/23/2023 11:00:00 AM Scheduled Provider:Alexia Muhammad Location:[facility] Appointment Type: Open [facility] Hospital course Narrative Note Date & Type Note Facility Hospital course Narrative No data available for this section [facility] Hospital Discharge instructions Note Date & Type Note Facility Hospital Discharge instructions No data available for this section [facility] Progress note Note Date & Type Note Facility Progress note No data available for this section [facility] Summary Purpose Family History No [...] section and content) DATE CREATED AUTHOR 01/28/2022 [facility] DATE CREATED AUTHOR AUTHOR'S ORGANIZ ATION 08/10/2022 [facility] DATE CREATED AUTHOR AUTHOR'S ORGANIZ ATION 01/28/2024 [facility] DATE CREATED AUTHOR AUTHOR'S ORGANIZ ATION 02/27/2024 [facility] DATE CREATED AUTHOR AUTHOR'S ORGANIZ ATION 03/13/2024 [facility] Patient Care team informatio n (unrecognized section and content) Personnel Name: Alexia Muhammad Address: Address: [address] [place] [id number] FOR RECORDS PERTAINING TO PATIENTS WHO ARE [...] BE BASED ON THE PRIMARY CLINICAL RECORDS. [facility] provides no warranty or guarantee of the accuracy or completeness of information in this document.
--- NOTE | 2024-07-09 10:04 | P.CN_ITS ---
Consult Note: HPI Data of Consult Patient: known to practice within the last 3 years Consult date: 11/05/23 Requesting Physician: Liliane Garcia NP Primary Care Provider: EFFIE SARMIENTO Consult Narrative Reason for consult: Low back, left hip pain Narrative: 48yom who presents for evaluation. Worsening low back pain. lumbar xray reveals mild to moderate degenerative changes, left hip xray reveals OA, lumbar MRI consistent with multilevel degenerative changes. Continues in provider directed home exercise course >6 weeks, with minimal relief. Evaluated by NS who recommends bilateral L4-5 L5-S1 facet medial branch blocks working towards RFA for chronic axial back pain, he previously underwent bilateral L4-5 L5-S1 facet medial branch block #1 with 50% improvement, could not proceed with bilateral L4-5 L5-S1 facet medial branch block #2. Previous left L4-5 L5-S1 TFESI and Left SIJ injection providing 75% improvement greater than 3 months. Pain 5/10 burning stabbing and tingling pain to left hip and thigh with standing walking and activity. Stopped tramadol, gabapentin and flexeril as he did not find benefit. Continues to utilize celebrex with benefit, now reporting heartburn. failed baclofen and restarted tizanidine with mild benefit per pt. recent left hip injection providing 70% improvement ongoing per pt. cc:: CC: Liliane Garcia NP Review of Systems ROS Status of ROS 10 or more systems reviewed and unremark able except as noted in history and below Musculoskeletal Reports: back pain, extremity pain and joint pain PFSH PFSH Medical History Osteoarthritis ?M19.90 - Unspecified osteoarthritis, unspecified site (ICD-10) KWAN on CPAP ?G47.33 - Obstructive sleep apnea (adult) (pediatric) (ICD-10) Sleep apnea ?G47.30 - Sleep apnea, unspecified (ICD-10) Meds Home Medications and Allergies Home Medications ?Medication ?Instructions ?Recorded ?Confirmed ?Type celecoxib 200 mg capsule (Celebrex) 200 mg PO BID 11/05/23 06/30/24 History cholecalciferol (vitamin D3) 125 125 mcg PO DAILY 11/05/23 06/30/24 History mcg (5,000 unit) tablet (Vitamin D3) cranberry 400 mg capsule 1,600 mg PO DAILY 11/05/23 06/30/24 History loratadine 10 mg tablet (Claritin) 10 mg PO DAILY 11/05/23 06/30/24 History ascorbic acid (vitamin C) 1,000 mg 1,000 mg PO DAILY 12/03/23 06/30/24 History tablet,extended release (C Complex) paroxetine HCl 10 mg tablet 10 mg PO DAILY 01/07/24 06/30/24 History tizanidine 4 mg tablet mg 06/30/24 History Allergies Allergy/AdvReac Type Severity Reaction Status Date / Time No Known Drug Allergies Allergy Verified 06/30/24 09:34 Exam Constitutional Documenting provider has reviewed patient's vital signs: yes Common normals: no apparent distress, oriented x3, healthy appearing, alert and well nourished General appearance: cooperative HENND Common normals: normocephalic, hearing grossly normal bilaterally and moist oral mucous membranes Head and scalp: normocephalic Eye Common normals: PERRL Pupil: PERRL Neck & C-Spine Common normals: full ROM General: normal visual inspection Chest Common normals: inspection of chest normal Respiratory Common normals: normal respiratory effort, no retractions and no use of accessory muscles Back & Pelvis Lumbar spine/lower back: normal to inspection, lumbar ROM normal and straight leg raise positive left Sacroiliac joints: SI joint(s) abnormal Other: left SIJ positive nancy(patricks), gaenslens, thigh thrust, compression test decreased sensation to left L4/5/S1 strength 4/5 in LLE 5/5 in RLE Extremity Common normals: normal to inspection and full ROM Left lower extremity: hip joint Other: mild pain with internal and external log roll Neuro Common normals: oriented x3, CN's II-XII intact bilaterally, moves all e xtremities, no focal motor deficits, no sensory deficits noted and deep tendon reflexes 2+ bilaterally Sensorium/orientation: alert Motor exam: no movement abnormalities noted Psych Common normals: mental status grossly normal, thought process normal, cooperative, affect normal, speech normal and activity/motor behavior normal Speech: normal speech Thought process: normal thought process Results Additional Findings Additional findings: If on a controlled substance or opioids, I have checked an [place] report on this patient and there are no aberrancies noted in the prescribing history.??If on a controlled substance or opioid a drug screen was completed and reviewed within the last year, and if there has not been a drug screen completed we ordered one today to monitor higher risk, state monitored pain medication use. As part of providing excellent, safe, comprehensive care, the following was completed at our patient's visit: 1. A medication reconciliation and review to ensure accurate knowledge of current/active medications, including asking our patients to inform us about any [id number] medications or herbal remedies/nutritional supplements/al ternative remedies. 2. A review to specifically ensure our patients have had annual screening for screening for depression, screening for tobacco use, and screening for unhealthy alcohol use. For concerning screenings had a discussion with the patient, provided patient education, and recommended follow-up with primary care provider when appropriate. If patient noted with a risk of falling, they received education on strength, gait, and balance training to prevent future risk of falling. Assessment and Plan Assessment and Plan (1) Lumbar stenosis with neurogenic claudication: (2) Sacroiliitis: (3) Myalgia: (4) Osteoarthritis of left hip: Qualifiers: Osteoarthritis type: primary Qualified Code(s): M16.12 - Unilateral primary osteoarthritis, left hip (5) Lumbar spondylosis: Plan repeat left L4/5 L5/S1 TFESI under fluoroscopy for lumbar stenosis with NC, previous injection provided >50% improvement for at least 3 months dc baclofen continue tizanidine 4mg HS PRN pain/spasms decrease celebrex 200mg once daily PRN pain f/u 2 weeks after TFESI
== END 2024-07-09 09:27 | disposition home or self-care (01) ==
LOC: PM 09:27
PROVIDERS: PCP Nurse Practitioner; Visit Provider Nurse Practitioner
DX: M48.062 Spinal stenosis, lumbar region with neurogenic claudication (principal); M46.1 Sacroiliitis, not elsewhere classified; M79.18 Myalgia, other site; M16.12 Unilateral primary osteoarthritis, left hip; M47.816 Spondylosis without myelopathy or radiculopathy, lumbar region
CPT/HCPCS: G0463

== ENCOUNTER 2024-07-21 09:07 | Day surgery (SDC) | payer BC, SELFPAY ==
[2024-07-21 09:22] VITALS: BP 151/98; PULSE 71; TEMP 37; O2SAT 98
--- OUTSIDE RECORDS SUMMARY | 2024-07-21 09:31 | XMS_ITS | CCD ---
Author Organization [facility] CliniSynd Care Team Providers Care Baller Tender Name Role Phone MAZIN CANO Admitting Unavailable [...] FOZIA Admitting Unavailable FOZIA UGALDE Attending Unavailable TorstenAlexia Primary Care Physician TORSTEN, ALEXIA Referring Unavailable TORSTEN, ALEXIA Referring Unavailable Torsten, Alexia Sewell Attending Unavailable Torsten, Alexia Sewell Attending Unavailable Torsten, Alexia Sewell Attending Unavailable Torsten, Alexia Sewell Attending Unavailable Torsten, Alexia Sewell Attending Unavailable Torsten, Alexia Sewell Attending Unavailable Torsten, Alexia Sewell Attending Unavailable Torsten, Alexia Sewell Attending Unavailable Torsten, Alexia Sewell Admitting Unavailable Torsten, Alexia Sewell Admitting Unavailable Torsten, Alexia Sewell Attending Unavailable Torsten, Alexia Sewell Attending Unavailable Torsten, Alexia Sewell Attending Unavailable Giedraitis , Andcory Guardado Attending Unavailable Giedraitis , Andcory Guardado Attending Unavailable Gieditis , Andrius Geo Attending Unavailable Gioanhitis , Andrius Guardado Attending Unavailable Gieditis , Andrius Guardado Attending Unavailable Gieditis , Andcory Guardado [...] # 21 tab(s), Refills(s) 0, Pharmacy: [facility]/pharmacy #[id number], 176.5, cm, 03/19/23 13:15:00 EDT, [...] day(s), # 30 tab(s), Refills(s) 0, Pharmacy: [facility]/pharmacy #[id number], 176.5, cm, 03/19/23 13:15:00 EDT, [...] Reference Range Facility Operative Reporton Operative Report [id number]#1. 00TIFF Normal [facility] Consultation Noteon 02-20-20 Consultation Note [id number]#1 .00TIFF Normal [facility] Consultation Noteon 02-06-20 Consultation Note [id number]#1 .00TIFF Normal [facility] RAD - MRI Reporton RAD - MRI Report [id number]#1 .00TIFF Normal [facility] MRI LUMBAR SPINE WO [...] compromise. L2-L3: No disc bulge or protrusion. Hymt-pi-yrudebpb facet arthropathy. No significant central canal stenosis. [...] Carson Linares DO 01/24/24 Final result Normal [facility] MRI THORACIC SPINE WO CONTRA STon 01-23-2024 [...] Carson Linares DO 01/24/24 Final result Normal [facility] Family Medicine Office/Clini c Noteon 01-17-2024 Family Medicine Office/Clinic Note HPI Staff Rose is a 48 year old male presenting for follow up on back pain VENANCIO 01/09/2024 Low back pain with left-sided sciatica was given ketorolac, MRI ordered pt tried to get it done Sunday but couldn't get done they didn't due to wasn't open MRI. MRI order was sent to [facility] in [place]. Pt states the burning sensation from sitting [...] not able to get MRI done at [facility]. is waiting for PA for MRI in [place]. they have an open MRI machine. needs [...] days., # 18 tab(s), Refills(s) 0, Pharmacy: [facility]/pharmacy #[id number], 187.5, cm, 01/16/24 13:46:00 EDT, Height/Length Dosing, 183, kg, 01/16/24 13:4... 3. Non-smoker (Z78.9: Other specified health status) continue not smoking Ordered: predniSONE, = 1 -, Oral, As Directed, Take 3 tabs by mouth daily x3 days, then 2 tabs daily x3 days, then 1 tab daily x3 days., # 18 tab(s), Refills(s) 0, Pharmacy: [facility]/pharmacy #6177, 187.5, cm, 01/16/24 13:46:00 EDT, [...] pneumococcal 23-valent vaccine 03/10/2019 Recorded Normal [facility] Comment on above: Result Comment: [...] 1 tab daily x3 days. Pickup at [facility]/pharmacy #[id number] Unchanged cranberry (cranberry oral capsule) [...] adult Pharmacy Information [id number]: [address], [place] [id number] [phone] Allergies No Known Allergies Problems Ongoing - [...] you for choosing us for your care. [facility] Physician Orderon 01-14-2024 Physician Order [id number]#1 .00TIFF [facility] Provider Letteron 01-14-2024 Provider Letter January 14, 2024 RAKESH PIÑA [address] [place] [id number] : 1975 To Whom It May Concern, Please excuse above patient from work. Date of Illness: From: 01/07/2024 To: 01/16/2024 May Return to Work On: 01/17/2024 Restrictions: None Comments: Sincerely, [address] [address] [facility] Ambulatory Visit Summaryon 0 01-09-2024 [...] 11:20 AM EDT With: Alexia Muhammad Where: [facility] [place]enton 01-09-2024 Consent [id number]#1 .00TIFF Normal [facility] ED Note-Physicianon 01-09-20 ED Note-Physician [id number]# 1.00TIFF Normal [facility] Family Medicine Office/Clini c Noteon 01-09-2024 Family Medicine Office/Clinic Note HPI Staff Rakesh is a 48 year old male presenting for ER follow up ER followup: Hospital: [facility] Visit date: 01/07/24 Symptoms the patient presented [...] Pain, # 60 tab(s), Refills(s) 0, Pharmacy: [facility]/pharmacy #[id number], 187.5, cm, 01/09/24 10:51:00 EDT, [...] Pain, # 60 tab(s), Refills(s) 0, Pharmacy: [facility]/pharmacy #[id number], 187.5, cm, 01/09/24 10:51:00 EDT, Height/Length Dosing, 187.5, kg, 08/23/23 9:30:00 EST, Weight Dosing triamcinolone, 60 mg = 1.5 mL, Injection, IntraMuscular, Once, Stop date 01/09/24 11:20:00 EDT, Routine, Start date 01/09/24 11:20:00 EDT, 01/09/24 11:20:00 EDT Orders: phentermine, 37.5 mg = 1 tab(s), Oral, Daily, # 30 tab(s), Refills(s) 0, Pharmacy: [facility] #72, 176.5, cm, 07/26/23 9:32:00 EST, Height/Length [...] Social Hi (more content not included)... Normal [facility] Comment on above: Result Comment: Elec tronically Signed By: Alexia Muhammad\Date and Time Signed: 01/09/24 11:25 EDT Physician Orderon 01-09-2024 Physician Order [id number]#1 .00TIFF Normal [facility] Provider Letteron 01-09-2024 Provider Letter January 09, [address] [address] : 1975 To Whom It May Concern, Please excuse above patient from work due to medical Date of Illness: From: _01-08-24 To: _01-14-24 May Return to Work On:01-15-24 Restrictions: _ Comments: _ Sincerely, Family Medicine [address] [address] Normal [facility] RAD - CT Reporton 01-09-2024 RAD - CT Report [id number]#1 .00TIFF Normal [facility] ED Note-Physicianon 01-08-20 ED Note-Physician [id number]#1 .00TIFF [facility] RAD - CT Reporton 01-08-2024 RAD - CT Report [id number]#1 .00TIFF Normal [facility] Operative Reporton Operative Report [id number]#1 .00TIFF [facility] Consultation Noteon 11-07-19 Consultation Note [id number]#1 .00TIFF [facility] PT - Progress Noteson 2023 PT - Progress Notes [id number]#1 .00TIFF Normal [facility] RAD - MISCon 10-29-2023 RAD - MISC [id number]#1 .00TIFF Normal [facility] Retail - Clinical Noteon Retail - Clinical Note [id number]#1 .00TIFF Normal [facility] Plan of Care - PT/OT/Speecho n 09-06-2023 Plan of Care - PT/OT/Speech [id number]#1 .00TIFF Normal [facility] Physician Referralon 023 Physician Referral [id number]# 1.00TIFF Normal [facility] Testost Totalon 08-25-2023 Testosterone [Mass/Vol] 321 ng/dL Invalid Interpretation Code [id number] [facility] Comment on above: Result Comment: Adul t male reference interval is based on a population of healthy nonobese males (BMI <30) between 19 and 39 years old. Iron, et.al. JCEM 2017,102;0053-9233. PMID: 95189439. Performed at: [facility] [id number] PhD Domenic Rider Performed By: #### 2 [id number], [id number], [id number] ####[facility] [address] [place] [address] Reminderson 08-24-2023 Reminders - From: Alexia Muhammad [...] detailed message for patient below Normal [facility] Family Medicine Office/Clini c Noteon [...] was in slow motion. 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 He would [...] he would like referral to PT at [place] for bakc/leg pain. gabapentin and muscles relaxers did not help. 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 all questions answered. RTC as needed Ordered: cyclobenzaprine, 10 mg = 1 tab(s), Oral, Bedtime, PRN for spasm, # 30 tab(s), Refills(s) 0, Pharmacy: [facility] #[facility], 176.5, cm, 07/26/23 9:32:00 EST, Height/Length Dosing, 187.2, kg, 07/26/23 9:32:00 EST, Weight Dosing gabapentin, 300 mg = 1 cap(s), Oral, Daily, # 30 cap(s), Refills(s) 0, Pharmacy: [facility] #72, 176.5, cm, 07/26/23 9:32:00 EST, Height/Length Dosing, 187.2, kg, 07/26/23 9:32:00 EST, Weight Dosing 2. Fatigue (R53.83: Other fatigue) labs drawn today Ordered: Lab Specimen Collect [id number] Testosterone Level Total 3. Hypogonadism male (E29.1: Testicular hypofunction) testosterone ordered Ordered: Lab Specimen Collect [id number] Testosterone Level Total 4. BMI 60.0-69.9, adult (Z68.44: Body mass index [BMI] 60.0-69.9, adult) bmi education complete Ordered: cyclobenzaprine, 10 mg = 1 tab(s), Oral, Bedtime, PRN for spasm, # 30 tab(s), Refills(s) 0, Pharmacy: [facility] #[facility], 176.5, cm, 07/26/23 9:32:00 EST, Height/Length Dosing, 187.2, kg, 07/26/23 9:32:00 EST, Weight Dosing gabapentin, 300 mg = 1 cap(s), Oral, Daily, # 30 cap(s), Refills(s) 0, Pharmacy: [facility], 176.5, cm, 07/26/23 9:32:00 EST, Height/Length Dosing, 187.2, kg, 07/26/23 9:32:00 EST, Weight Dosing Testosterone Level Total Vitamin B12 Level Vitamin D 25 Hydroxy Follow-up No qualifying data available Patient Education Obesity, Adult, Pndf-rr-Dhqb Problem List/Past Medical History Ongoing Encounter for [...] ago Tob (more content not included)... Normal [facility] Comment on above: Result [...] food choices, such as grocery stores and [employer]. What are the signs or symptoms? The [...] How much exercise you get. ? Take btdj-wxi-urnlqal and prescription medicines only as told by [...] with yo (more content not included)... Normal [facility] Vit B12on 08-23-2023 Cobalamin (Vitamin B12) [Mass/Vol] 301 pg/mL Normal 50-1500 [facility] Comment on above: Performed By: #### 2 [id number], [id number], [id number] #### [facility] [address] [place] [address] Vitamin D 25 Hydroxyon 08-23 Vitamin D 25 Hydroxy 57.7 ng/mL Normal 30.0-100.0 [facility] Comment on above: Performed By: #### 2 [id number], [id number], [id number] ####[facility] [address] [place] [address] Ambulatory Visit Summaryon 1 09-25-2022 Ambulatory Visit [...] AM EST With: Alexia Muhammad Where: [facility] Medicine Shanique Normal [facility] Family Medicine Office/Clini c [...] spasm, # 30 tab(s), Refills(s) 0, Pharmacy: [facility] #[facility], 176.5, cm, 07/26/23 9:32:00 EST, Height/Length Dosing, 187.2, kg, 07/26/23 9:32:00 EST, Weight Dosing gabapentin, 300 mg = 1 cap(s), Oral, Daily, # 30 cap(s), Refills(s) 0, Pharmacy: [facility], 176.5, cm, 07/26/23 9:32:00 EST, Height/Length Dosing, 187.2, kg, 07/26/23 9:32:00 EST, Weight Dosing methylPREDNISolone, = 1 packet(s), Oral, As Directed, as directed on package labeling, X 6 day(s), # 21 tab(s), Refills(s) 0, Pharmacy: [facility], 176.5, cm, 07/26/23 9:32:00 EST, Height/Length [...] spasm, # 30 tab(s), Refills(s) 0, Pharmacy: [facility], 176.5, cm, 07/26/23 9:32:00 EST, Height/Length Dosing, 187.2, kg, 07/26/23 9:32:00 EST, Weight Dosing gabapentin, 300 mg = 1 cap(s), Oral, Daily, # 30 cap(s), Refills(s) 0, Pharmacy: [facility], 176.5, cm, 07/26/23 9:32:00 EST, Height/Length Dosing, 187.2, kg, 07/26/23 9:32:00 EST, Weight Dosing methylPREDNISolone, = 1 packet(s), Oral, As Directed, as directed on package labeling, X 6 day(s), # 21 tab(s), Refills(s) 0, Pharmacy: [facility], 176.5, cm, 07/26/23 9:32:00 EST, Height/Length Dosing, 187.2, kg, 07/26/23 9:32:00 EST, Weight Dosing 3. Numbness and tingling of foot (R20.0: Anesthesia of skin) discussed ENG results Ordered: cyclobenzaprine, 10 mg = 1 tab(s), Oral, Bedtime, PRN for spasm, # 30 tab(s), Refills(s) 0, Pharmacy: [facility], 176.5, cm, 07/26/23 9:32:00 EST, Height/Length Dosing, 187.2, kg, 07/26/23 9:32:00 EST, Weight Dosing gabapentin, 300 mg = 1 cap(s), Oral, Daily, # 30 cap(s), Refills(s) 0, Pharmacy: [facility], 176.5, cm, 07/26/23 9:32:00 EST, Height/Length Dosing, 187.2, kg, 07/26/23 9:32:00 EST, Weight Dosing methylPREDNISolone, = 1 packet(s), Oral, As Directed, as directed on package labeling, X 6 day(s), # 21 tab(s), Refills(s) 0, Pharmacy: [facility], 176.5, cm, 07/26/23 9:32:00 EST, Height/Length Dosing, 187.2, kg, 07/26/23 9:32:00 EST, Weight Dosing 4. Class 3 obesity (E66.01: Morbid (severe) obesity due to excess calories) pt continues with diet Ordered: cyclobenzaprine, 10 mg = 1 tab(s), Oral, Bedtime, PRN for spasm, # 30 tab(s), Refills(s) 0, Pharmacy: [facility], 176.5, cm, 07/26/23 9:32:00 EST, Height/Length Dosing, 187.2, kg, 07/26/23 9:32:00 EST, Weight Dosing gabapentin, 300 mg = 1 cap(s), Oral, Daily, # 30 cap(s), Refills(s) 0, Pharmacy: [facility], 176.5, cm, 07/26/23 9:32:00 EST, Height/Length Dosing, 187.2, kg, 07/26/23 9:32:00 EST, Weight Dosing methylPREDNISolone, = 1 packet(s), Oral, As Directed, as directed on package labeling, X 6 day(s), # 21 tab(s), Refills(s) 0, Pharmacy: [facility], (more content not included)... Normal [facility] Comment on above: Result Comment: Elec tronically Signed By: Alexia Muhammad\.br\Date and Time Signed: 07/26/23 09:54 EST EMG Electromyographyon 07-10 EMG Electromyography [id number]#1 .00TIFF [facility] EMG Electromyography [id number]#1. 00TIFF [facility] Physician Referralon 023 Physician Referral [id number]# 1.00TIFF [facility] Ambulatory Visit Summaryon 1 Ambulatory Visit [...] AM EST With: Alexia Muhammad Where: [facility] Family Medicine Office/Clini c Noteon [...] day(s), # 30 tab(s), Refills(s) 1, Pharmacy: [facility], 176.5, cm, 06/21/23 9:41:00 EDT, Height/Length Dosing, 186.7, kg, 06/21/23 9:41:00 EDT, Weight Dosing meloxicam, 15 mg = 1 tab(s), Oral, Daily, X 30 day(s), # 30 tab(s), Refills(s) 0, Pharmacy: [facility], 176.5, cm, 06/21/23 9:41:00 EDT, Height/Length Dosing, 186.7, kg, 06/21/23 9:41:00 EDT, Weight Dosing meloxicam, 15 mg = 1 tab(s), Oral, Daily, # 30 tab(s), Refills(s) 1, Pharmacy: [facility], 176.5, cm, 05/22/23 9:51:00 EDT, Height/Length Dosing, 190.2, kg, 05/22/23 9:51:00 EDT, Weight Dosing 2. Left sciatic nerve pain (M54.32: Sciatica, left side) pt continues to have left sciatic nerve pain but it is improved Ordered: meloxicam, 15 mg = 1 tab(s), Oral, Daily, X 30 day(s), # 30 tab(s), Refills(s) 1, Pharmacy: [facility], 176.5, cm, 06/21/23 9:41:00 EDT, Height/Length Dosing, 186.7, kg, 06/21/23 9:41:00 EDT, Weight Dosing meloxicam, 15 mg = 1 tab(s), Oral, Daily, X 30 day(s), # 30 tab(s), Refills(s) 0, Pharmacy: [facility], 176.5, cm, 06/21/23 9:41:00 EDT, Height/Length Dosing, 186.7, kg, 06/21/23 9:41:00 EDT, Weight Dosing meloxicam, 15 mg = 1 tab(s), Oral, Daily, # 30 tab(s), Refills(s) 1, Pharmacy: [facility], 176.5, cm, 05/22/23 9:51:00 EDT, Height/Length Dosing, 190.2, kg, 05/22/23 9:51:00 EDT, Weight Dosing phentermine, 37.5 mg = 1 tab(s), Oral, Daily, X 30 day(s), # 30 tab(s), Refills(s) 0, Pharmacy: [facility], 176.5, cm, 05/22/23 9:51:00 EDT, Height/Length Dosing, 190.2, kg, 05/22/23 9:51:00 EDT, Weight Dosing [facility] [place] External Ambulatory Referral 3. Lower extremity numbness (R20.0: Anesthesia of skin) EMG order sent to [facility] in [place] Ordered: [facility] [place] External Ambulatory Referral 4. Morbid obesity due to excess calories (E66.01: Morbid (severe) obesity due to excess calories) BMI education complete Ordered: meloxicam, 15 mg = 1 tab(s), Oral, Daily, X 30 day(s), # 30 tab(s), Refills(s) 1, Pharmacy: [facility], 176.5, cm, 06/21/23 9:41:00 EDT, Height/Length Dosing, 186.7, kg, 06/21/23 9:41:00 EDT, Weight Dosing meloxicam, 15 mg = 1 tab(s), Oral, Daily, X 30 day(s), # 30 tab(s), Refills(s) 0, Pharmacy: [facility], 176.5, cm, 06/21/23 9:41:00 EDT, Height/Length Dosing, 186.7, kg, 06/21/23 9:41:00 EDT, Weight Dosing meloxicam, 15 mg = 1 tab(s), Oral, Daily, # 30 tab(s), Refills(s) 1, Pharmacy: [facility], 176.5, cm, 05/22/23 9:51:00 EDT, Height/Length Dosing, 190.2, kg, 05/22/23 9:51:00 EDT, Weight Dosing phentermine, 37.5 mg = 1 tab(s), Oral, Daily, X 30 day(s), # 30 tab(s), Refills(s) 0, Pharmacy: [facility], 176.5, cm, 05/22/23 9:51:00 EDT, Height/Length Dosing, 190.2, kg, 05/22/23 9:51:00 EDT, Weight Dosing 5. BMI 50.0-59.9, adult (Z68.43: Body mass index [BMI] 50.0-59.9, adult) BMI education complete 6. Non-smoker (Z78.9: Other specified health status) continue not smoking Ordered: meloxicam, 15 mg = 1 tab(s), Oral, Daily, X 30 day(s), # 30 tab(s), Refills(s) 1, Pharmacy: [facility], 176.5, cm, 06/21/23 9:41:00 EDT, Height/Length Dosing, 186.7, kg, 06/21/23 9:41:00 EDT, Weight Dosing meloxicam, 15 mg = 1 tab(s), Or (more content not included)... [facility] Comment on above: [...] AM EDT With: Alexia Muhammad Where: [facility] Ambulatory Visit Summary RAKESH PIÑA :1975 Visit [...] AM EDT With: Alexia Muhammad Where: [facility] Family Medicine Office/Clini c Noteon 05-22-2023 Family [...] in his legs at night. pt will mixing picker tender some OTC potassium to see if that helps. all questions answered. RTC 4 weeks Ordered: meloxicam, 15 mg = 1 tab(s), Oral, Daily, # 30 tab(s), Refills(s) 1, Pharmacy: [facility], 176.5, cm, 05/22/23 9:51:00 EDT, Height/Length Dosing, 190.2, kg, 05/22/23 9:51:00 EDT, Weight Dosing 2. Left sciatic nerve pain (M54.32: Sciatica, left side) will order antiinflammatory. steroid did not give him any relief Ordered: meloxicam, 15 mg = 1 tab(s), Oral, Daily, # 30 tab(s), Refills(s) 1, Pharmacy: [facility], 176.5, cm, 05/22/23 9:51:00 EDT, Height/Length Dosing, 190.2, kg, 05/22/23 9:51:00 EDT, Weight Dosing phentermine, 37.5 mg = 1 tab(s), Oral, Daily, X 30 day(s), # 30 tab(s), Refills(s) 0 phentermine, 37.5 mg = 1 tab(s), Oral, Daily, X 30 day(s), # 30 tab(s), Refills(s) 0, Pharmacy: [facility], 176.5, cm, 05/22/23 9:51:00 EDT, Height/Length Dosing, 190.2, kg, 05/22/23 9:51:00 EDT, Weight Dosing 3. BMI 60.0-69.9, adult (Z68.44: Body mass index [BMI] 60.0-69.9, adult) BMI education complete Ordered: meloxicam, 15 mg = 1 tab(s), Oral, Daily, # 30 tab(s), Refills(s) 1, Pharmacy: [facility], 176.5, cm, 05/22/23 9:51:00 EDT, Height/Length Dosing, 190.2, kg, 05/22/23 9:51:00 EDT, Weight Dosing 4. Morbid obesity due to excess calories (E66.01: Morbid (severe) obesity due to excess calories) see above Ordered: meloxicam, 15 mg = 1 tab(s), Oral, Daily, # 30 tab(s), Refills(s) 1, Pharmacy: [facility], 176.5, cm, 05/22/23 9:51:00 EDT, Height/Length Dosing, 190.2, kg, 05/22/23 9:51:00 EDT, Weight Dosing phentermine, 37.5 mg = 1 tab(s), Oral, Daily, X 30 day(s), # 30 tab(s), Refills(s) 0 phentermine, 37.5 mg = 1 tab(s), Oral, Daily, X 30 day(s), # 30 tab(s), Refills(s) 0, Pharmacy: [facility], 176.5, cm, 05/22/23 9:51:00 EDT, Height/Length Dosing, 190.2, kg, 05/22/23 9:51:00 EDT, Weight Dosing 5. Non-smoker (Z78.9: Other specified health status) continue not smoking Ordered: meloxicam, 15 mg = 1 tab(s), Oral, Daily, # 30 tab(s), Refills(s) 1, Pharmacy: [facility], 176.5, cm, 05/22/23 9:51:00 EDT, Height/Length Dosing, 190.2, kg, 05/22/23 9:51:00 EDT, Weight Dosing phentermine, 37.5 mg = 1 tab(s), Oral, Daily, X 30 day(s), # 30 tab(s), Refills(s) 0 phentermine, 37.5 mg = 1 tab(s), Oral, Daily, X 30 day(s), # 30 tab(s), Refills(s) 0, Pharmacy: [facility], 176.5, cm, 05/22/23 9:51:00 EDT, Height/Length [...] Daily Allerg (more content not included)... Normal [facility] Comment on above: Result Comment: Elec tronically Signed By: Alexia Muhammad\.br\Date and Time Signed: 05/22/23 10:34 EDT [place] 04-26-2023 Consent [id number] .00CD:127 [facility] Family Medicine Office/Clini c Noteon [...] kenalog 60mg IM in office today. Normal [facility] Comment on above: Result [...] EDT With: Alexia Muhammad Where: [facility] Normal [facility] Auto Diffon 03-19-2023 Basophils/100 WBC (Bld) 0.3 % Normal 0.0-2.0 [facility] Comment on above: Order Comment: Order Added by Discern Expert. Performed By: #### 2 [id number], [id number], [id number], [id number] ####[facility] [address] [place] [address] Basophils/Leukocytes Auto (Bld) [Pure # fraction] 0.0 E9/L Normal 0.0-0.2 [facility] Comment on above: Order Comment: Order Added by Discern Expert. Performed By: #### 2 564722, 4148127, 3023169, [id number] ####[facility] [address] [place] [address] Eosinophils/100 WBC (Bld) 2.1 % Normal 0.0-8.0 [facility] Comment on above: Order Comment: Order Added by Discern Expert. Performed By: #### 2 561627, 1785685, 3930763, 1902606, [id number] ####[facility] [address] [place] [address] Eosinophils/Leukocytes Auto (Bld) [Pure # fraction] 0.2 E9/L Normal 0.0-0.5 [facility] Comment on above: Order Comment: Order Added by Discern Expert. Performed By: #### 2 914903, 5742177, 8420613, [id number], [id number] ####[facility] [address] [place] [address] Lymphocytes/100 WBC (Bld) 20.5 % Normal 14.0-50.0 [facility] Comment on above: Order Comment: Order Added by Discern Expert. Performed By: #### 2 340614, 4671191, 9075033, 8179040, [id number] ####[facility] [address] [place] [address] Lymphocytes/Leukocytes Auto (Bld) [Pure # fraction] 1.6 E9/L Normal 1.0-4.0 [facility] Comment on above: Order Comment: Order Added by Discern Expert. Performed By: #### 2 976206, 3723406, 2352817, 2716163, [id number] ####[address] [place] [address] Monocytes/100 WBC (Bld) 8.7 % Normal 4.0-14.0 [facility] Comment on above: Order Comment: Order Added by Discern Expert. Performed By: #### 2 667694, 7795696, 3801540, 3572444, [id number] ####[address] [place] [address] Monocytes/Leukocytes Auto (Bld) [Pure # fraction] 0.7 E9/L Normal 0.2-1.0 [facility] Comment on above: Order Comment: Order Added by Nellie Expert. Performed By: #### 2 832484, 1626972, 3611509, 9730689, [id number] ####[address] [address] Neutrophils/100 WBC (Bld) 68.4 % Normal 36.0-75.0 [facility] Comment on above: Order Comment: Order Added by Nellie Expert. Performed By: #### 2 742945, 5938826, 5199358, 8391355, [id number] ####[address] [address] Neutrophils/Leukocytes Auto (Bld) [Pure # fraction] 5.3 E9/L Normal 2.0-7.5 [facility] Comment on above: Order Comment: Order Added by Nellie Expert. Performed By: #### 2 039230, 6218834, 4913010, 6942578, [id number] ####[address] [place] [address] CBC w/ Auto Diffon 3 Erythrocyte distribution width (RBC) [Ratio] 16.3 % High 10.9-14.2 [facility] Comment on above: Performed By: #### 2 159555, 2013052, 7174405, 3087937, [id number] ####[facility] [address] [place] [id number] Hematocrit (Bld) [Volume fraction] 43.7 % Normal 37.7-49.0 [facility] Comment on above: Performed By: #### 2 282134, 8570385, 7100706, 0382975, [id number] ####[place] [id number] Hemoglobin (Bld) [Mass/Vol] 14.4 g/dL Normal 13.5-17.5 [facility] Comment on above: Performed By: #### 2 629628, 4779087, 0667622, 8298615, [id number] ####[place] [id number] MCH (RBC) [Entitic mass] 27.9 pg Normal 27.0-34.0 [facility] Comment on above: Performed By: #### 2 146977, 4454364, 8252790, 8346315, [id number] ####[place] [id number] MCHC (RBC) [Mass/Vol] 33.0 g/dL Normal 31.4-36.[address] [facility] Comment on above: Performed By: #### 2 342847, 3123795, 9974510, 4293238, [id number] ####[place] [id number] MCV (RBC) [Entitic vol] 84.8 fL Normal 80.0-100.0 [facility] Comment on above: Performed By: #### 2 259344, 3362338, 5615549, 8756025, [id number] ####[address] [address] Platelet mean volume (Bld) [Entitic vol] 7.7 fL Normal 6.4-10.8 [facility] Comment on above: Performed By: #### 2 240106, 1897989, 5156744, 4570664, 90477051 ####[facility] [address] [place] [address] Platelets (Bld) [#/Vol] 278.0 E9/L Normal 150.0-500.0 [facility] Comment on above: Performed By: #### 2 031715, 6009920, 3131446, 7286525, [id number] ####[facility] [address] [place] [address] RBC (Bld) [#/Vol] 5.2 E12/L Normal 4.3-5.9 [facility] Comment on above: Performed By: #### 2 825302, 7547255, 6030951, 0890480, 09435734 ####[facility] [address] [place] [address] WBC corrected for nucl RBC Auto (Bld) [#/Vol] 7.7 E9/L Normal 4.0-11.0 [facility] Comment on above: Performed By: #### 2 965842, 2309632, 6723700, 2471259, 84775446 ####[facility] [address] [place] [address] CHEMISTRYOrdered By: SYSTEM SYSTEM on 03-19-2023 Cholesterol [...] day(s), # 21 tab(s), Refills(s) 0, Pharmacy: [email or web address]/pharmacy #[id number], 176.5, cm, 03/19/23 13:15:00 EDT, Height/Length Dosing phentermine, 37.5 mg = 1 tab(s), Oral, Daily, # 30 tab(s), Refills(s) 0, Pharmacy: [email or web address]/pharmacy #6177, 176.5, cm, 03/19/23 13:15:00 EDT, Height/Length [...] day(s), # 21 tab(s), Refills(s) 0, Pharmacy: [email or web address]/pharmacy #6177, 176.5, cm, 03/19/23 13:15:00 EDT, Height/Length Dosing phentermine, 37.5 mg = 1 tab(s), Oral, Daily, # 30 tab(s), Refills(s) 0, Pharmacy: [email or web address]/pharmacy #6177, 176.5, cm, 03/19/23 13:15:00 EDT, Height/Length Dosing CBC w/ Auto Diff Cologuard Screening Test Lipid Panel PSA Screen, Total Thyroid Stimulating Hormone 3. Non-smoker (Z78.9: Other specified health status) continue not smoking Ordered: methylPREDNISolone, = 1 packet(s), Oral, As Directed, as directed on package labeling, X 6 day(s), # 21 tab(s), Refills(s) 0, Pharmacy: [facility]/pharmacy #[id number], 176.5, cm, 03/19/23 13:15:00 EDT, Height/Length Dosing phentermine, 37.5 mg = 1 tab(s), Oral, Daily, # 30 tab(s), Refills(s) 0, Pharmacy: [facility]/pharmacy #[id number], 176.5, cm, 03/19/23 13:15:00 EDT, Height/Length Dosing CBC w/ Auto Diff Cologuard Screening Test Lipid Panel PSA Screen, Total Thyroid Stimulating Hormone 4. Left sciatic nerve pain (M54.32: Sciatica, left side) medrol dose pack sent Ordered: methylPREDNISolone, = 1 packet(s), Oral, As Directed, as directed on package labeling, X 6 day(s), # 21 tab(s), Refills(s) 0, Pharmacy: [facility]/pharmacy #[id number], 176.5, cm, 03/19/23 13:15:00 EDT, Height/Length Dosing phentermine, 37.5 mg = 1 tab(s), Oral, Daily, # 30 tab(s), Refills(s) 0, Pharmacy: [facility]/pharmacy #[id number], 176.5, cm, 03/19/23 13:15:00 EDT, Height/Length Dosing Colon cancer screening (Z12.11: (more content not included)... Normal [facility] Comment on above: Result Comment: Elec tronically Signed By: Alexia Muhammad\.br\Date and Time Signed: 03/19/23 14:00 EDT Formson 03-19-2023 Forms [id number] .[id number]:127 Normal [facility] HEMATOLOGYOrdered By: SYSTEM SYSTEM [...] 7.7 E9/L Normal 4.0 - 11.0 E9/L [facility] [place] HemeAutoSS Lipid Panelon 03-19-2023 Cholesterol [Mass/Vol] 171 mg/dL Normal 120-200 [facility] Comment on above: Performed By: #### 2 715431, 0449398, 3006431, 3476890, 61640537 ####[facility] [address] [place] [address] Cholesterol in HDL [Mass/Vol] 39 mg/dL Invalid Interpretation Code [facility] Comment on above: Result Comment: HDL > or equal to 60 mg/dL: Low cardiovascular risk HDL < 40 mg/dL : High cardiovascular risk Performed By: #### 2 651071, 6860357, 8594590, 4911623, 96602951 ####[facility] [address] [address] Cholesterol in LDL [Mass/Vol] 112 mg/dL Normal <=129 [facility] Comment on above: Performed By: #### 2 713142, 5757735, 4751570, 0054978, 69376220 ####[facility] [address] [place] [address] Cholesterol in VLDL [Mass/Vol] 19 mg/dL Normal 7-40 [facility] Comment on above: Performed By: #### 2 807127, 2349101, 7913078, 7475574, 92634014 ####[facility] [address] [place] [address] Triglyceride [Mass/Vol] 94 mg/dL Normal <=149 [facility] Comment on above: Performed By: #### 2 649774, 8536484, 4770264, 2287638, 41398136 ####[facility] [address] [place] [address] PSA Screen, Totalon 03-19-20 23 Prostate specific Ag [Mass/Vol] 0.9 ng/mL Normal 0.1-3.5 [facility] Comment on above: Result Comment: The concentration of PSA determined by different manufacturers can vary due to differences in assay methods and reagent specificity. Values obtained from different assay methods cannot be used interchangeably. The methodology used for this result was chemiluminescence using [employer]'s Access Hybritech PSA reagent. Performed By: #### 2 662294, 0252616, 1183379, 6868059, 50794875 ####[facility] [address] [place] [address] TSHon 03-19-2023 TSH Qn 2.03 m[IU]/L Normal 0.34-5.60 [facility] Comment on above: Performed By: #### 2 649395, 1516811, 3283272, 0097399, 64890973 ####[facility] [address] [place] [address] Covid-19 PCR (CVDTB)on 07-11 SARS-CoV-2 (COVID-19) RNA BETHANY+probe Ql (Unsp spec) Not detected Normal NOT DETECTED [facility] Comment on above: Result Comment: When [...] for this test is supported by the Soft Tile Setter of Health and Human Service's declaration that [...] used). Performed By: #### C VDTBH #### [facility] [address] [place], [place] [address] Dr. Mynor Yun GROUP A STREP CULTUREon 07-11 S. pyogenes Ag Ql (Unsp spec) Culture Observations: NEGATIVE FOR GROUP A STREPTOCOCCUS. Normal [facility] Comment on above: Performed By: #### G RASTCX #### [facility] [address] [place] [address] Dr. Mynor Yun INFLUENZA A AND B AGon 07-28 INFLUANEGH SEE BELOW Normal [facility] Comment on above: Result Comment: Nega tive for Flu A protein angiten. Infection due to Flu A cannot be ruled out. Flu A angiten in the sample may be below the detection limit of the test. Performed By: #### I NFLUAB #### [facility] [address] [place] [address] Dr. Mynor Yun INFLUBNEG SEE BELOW Normal [facility] Comment on above: Result Comment: Nega tive for Flu B protein antigen. Infection due to Flu B cannot be ruled out. Flu B antigen in the sample may be below the detection limit of the test. Performed By: #### I NFLUAB #### [facility] [address] [place] [address] Dr. Mynor Yun INFLUENZA A AG Negative Normal NEGATIVE SEE COMMENT [facility] Comment on above: Performed By: #### I NFLUAB #### [facility] [address] [place] [address] Dr. Mynor Yun INFLUENZA B AG Negative Normal NEGATIVE SEE COMMENT [facility] Comment on above: Performed By: #### I NFLUAB #### [facility] [address] [place] [address] Dr. Mynor Yun INTERNAL CONTROLS Within Normal Limits Normal Wi thin Normal Limits [facility] Comment on above: Performed By: #### I NFLUAB #### [facility] [address] [place] [address] Dr. Mynor Yun STREPT SCREENon 07-28-2022 STREP SCREEN A Negative Normal NEGATIVE [facility] Comment on above: Performed By: #### S SCRN #### [facility] [address] [place] [address] Dr. Mynor Yun XR SINUSES 3 VIEWS OR GREATE Tmi 02-01-2022 XR SINUSES 3 VIEWS OR GREATER [...] by: KELLIE SMALLS Date: 2022-02-01 09:58 Normal [facility] HAND LEFT 3 VWSon 12-29-2021 HAND LEFT [address] [facility] Department of Radiology [address] [place] [id number] Patient Name: RAKESH PIÑA : 1975 Sex: M Age: Race: White Pt. Location: Patient Status: D Ordered Date: 12/29/2021 11:45:00 AM Completed Date: 12/29/2021 11:50 AM Requesting Provider: LORI DALLAS Attending Provider: LORI DALLAS Report Copy To: Signs & Symptoms: M79.642 Pain in left hand I10 History: Comments: Evaluate Exam: HAND LEFT 3 [facility] HAND LEFT 3 S 12/29/2021 11:50 AM CLINICAL INDICATIONS: M79.642 Pain [...] alignment. Electronically signed: Heather Montana. Transcribed by: [email or web address], User Resident: Electronically Signed by: HEATHER MONTANA @ 12/31/2021 08:55 AM Normal [facility] Comment on above: Order Comment: Evalu ate HAND LEFT 3 VWSon 12-08-2021 HAND LEFT [address] [facility] Department of Radiology [address] [place] [id number] Patient Name: RAKESH PIÑA : 1975 Sex: M Age: Race: White Pt. Location: Patient Status: D Ordered Date: 12/08/2021 1:25:00 PM Completed Date: 12/08/2021 01:29 PM Requesting Provider: LORI DALLAS Attending Provider: LORI DALLAS Report Copy To: Signs & Symptoms: M79.642 Pain in left hand I10 History: Rekha Comments: Evaluate Exam: HAND LEFT 3 S [...] bridging. Electronically signed: Ronaldo Major. Transcribed by: [email or web address], User Resident: Electronically Signed by: RONALDO MAJOR @ 12/09/2021 04:04 PM Normal [facility] Comment on above: Order Comment: Evalu ate HAND LEFT 3 VWSon 11-14-2021 HAND LEFT [address] [facility] Department of Radiology [address] [place] [phone] Patient Name: RAKESH PIÑA : 1975 [...] LEFT 3 S HAND LEFT 3 VWS 11/14/2021 1:58 PM [...] fracture. Electronically signed: Ramirez Smith. Transcribed by: [email or web address], User Resident: Electronically Signed by: RAMIREZ Eleazar SMITH @ 11/14/2021 08:02 PM Normal [facility] Comment on above: Order Comment: Views (X-RAY, HAND): PA, Lateral, Oblique TESTOSTERONE, TOTALon 2021 Testosterone [Mass/Vol] 411 ng/dL Normal 264-916 [facility] Comment on above: Result Comment: Adul t male reference interval is based on a population of healthy nonobese males (BMI <30) between 19 and 39 years old. precious Perdue.al. JCEM 2017,102;6838-7906. PMID: [id number]. Performed By: #### T ESTTOT #### [facility] [address] [place] [address] Dr. Mynor Yun CBC AUTO DIFFon 11-11-2021 BASO # 0.0 103/ul Normal 0.0-0.1 [facility] Comment on above: Performed By: #### C BC #### [facility] [address] [place] [address] Dr. Mynor Yun Basophils/100 WBC (Bld) 0.2 % Normal 0.2-2.0 [facility] Comment on above: Performed By: #### C BC #### [facility] [address] [place] [address] Dr. Mynor Yun EO # 0.1 103/ul Normal 0.0-0.7 [facility] Comment on above: Performed By: #### C BC #### [facility] [address] [place] [address] Dr. Mynor Yun Eosinophils/100 WBC (Bld) 1.2 % Normal 0.9-7.0 [facility] Comment on above: Performed By: #### C BC #### [facility] [address] [place] [address] Dr. Mynor Yun Erythrocyte distribution width (RBC) [Ratio] 14.3 % Normal 11.0-15.0 [facility] Comment on above: Performed By: #### C BC #### [facility] [address] [place] [address] Dr. Mynor Yun Hematocrit (Bld) [Volume fraction] 47.3 % Normal 42.0-54.0 [facility] Comment on above: Performed By: #### C BC #### [facility] [address] [place] [address] Dr. Mynor Yun Hemoglobin (Bld) [Mass/Vol] 15.2 g/dL Normal 14.0-18.0 [facility] Comment on above: Performed By: #### C BC #### [facility] [address] [place] [address] Dr. Mynor Yun IG # 0.03 10e3/ul Normal 0.00-0.03 [facility] Comment on above: Performed By: #### C BC #### [facility] [address] [place] [address] Dr. Mynor Yun IG % 0.3 % Normal 0.0-0.5 [facility] Comment on above: Performed By: #### C BC #### [facility] [address] [place] [address] Dr. Mynor Yun LYMPH # 1.6 103/ul Normal 1.2-3.8 [facility] Comment on above: Performed By: #### C BC #### [facility] [address] [place] [address] Dr. Mynor Yun Lymphocytes/100 WBC (Bld) 18.4 % Critically low 20.5-60.0 [facility] Comment on above: Performed By: #### C BC #### [facility] [address] [place] [address] Dr. Mynor Yun MANUAL DIFF REQ NO Normal [facility] Comment on above: Performed By: #### C BC #### [facility] [address] [place] [address] Dr. Mynor Yun MCH (RBC) [Entitic mass] 28.8 pg Normal 25.9-34.0 [facility] Comment on above: Performed By: #### C BC #### [facility] [address] [place] [address] Dr. Mynor Yun MCHC (RBC) [Mass/Vol] 32.1 g/dL Normal 29.9-35.2 [facility] Comment on above: Performed By: #### C BC #### [facility] [address] [place] [address] Dr. Mynor Yun MCV (RBC) [Entitic vol] 89.8 fL Normal 80.0-94.0 [facility] Comment on above: Performed By: #### C BC #### [facility] [address] [place] [address] Dr. Mynor Yun MONO # 0.7 103/ul Normal 0.3-0.8 [facility] Comment on above: Performed By: #### C BC #### [facility] [address] [place] [address] Dr. Mynor Yun Monocytes/100 WBC (Bld) 8.4 % Normal 1.7-12.0 [facility] Comment on above: Performed By: #### C BC #### [facility] [address] [place] [address] Dr. Mynor Yun NEUT # 6.2 103/ul Normal 1.4-6.5 [facility] Comment on above: Performed By: #### C BC #### [facility] [address] [place] [address] Dr. Mynor Yun Neutrophils/100 WBC (Bld) 71.5 % Normal 43.0-75.0 [facility] Comment on above: Performed By: #### C BC #### [facility] [address] [place] [address] Dr. Mynor Yun Platelet mean volume (Bld) [Entitic vol] 8.7 fL Critically low 9.5-13.5 [facility] Comment on above: Performed By: #### C BC #### [facility] [address] [place] [address] Dr. Mynor Yun PLT 263 103/ul Normal 150-450 [facility] Comment on above: Performed By: #### C BC #### [facility] [address] [place] [address] [address] Mynor Yun RBC 5.27 106/ul Normal 4.70-6.10 [facility] Comment on above: Performed By: #### C BC #### [facility] [address] [place] [address] [address] Mynor Yun WBC 8.7 103/ul Normal 4.0-11.0 [facility] Comment on above: Performed By: #### C BC #### [facility] [address] [place] [address] Dr. Mynor Yun LIPID PROFILEon 11-11-2021 CHOL-HDL RATIO NORM SEE BELOW Normal [facility] Comment on above: Result Comment: 3.3 - 4.4 LOW RISK 4.4 - 7.1 AVERAGE RISK 7.1 - 11.0 MODERATE RISK >11.0 HIGH RISK Performed By: #### S SCRN #### [facility] [address] [place] [address] Dr. Mynor Yun Cholesterol [Mass/Vol] 129 mg/dL Normal <=200 [facility] Comment on above: Performed By: #### S SCRN #### [facility] [address] [place] [address] Dr. Mynor Yun Cholesterol in HDL [Mass/Vol] 34 mg/dL Normal [facility] Comment on above: Performed By: #### S SCRN #### [facility] [address] [place] [address] Dr. Mynor Yun Cholesterol in LDL [Mass/Vol] 82.2 mg/dL Normal [facility] Comment on above: Performed By: #### S SCRN #### [facility] [address] [place] [address] Dr. Mynor Yun Cholesterol.total/Chol esterol in HDL [Mass ratio] 3.8 {ratio} Normal [facility] Comment on above: Performed By: #### S SCRN #### [facility] [address] [place] [address] Dr. Mynor Yun HDL NORMAL > or = 60 mg/dl - LO W CARDIOVASCULAR RISK <40 mg/dl - HIGH CARDIOVASCULAR RISK Normal [facility] Comment on above: Performed By: #### S SCRN #### [facility] [address] [place] [address] [address] Mynor Yun LDL CALC NORMAL SEE BELOW Normal [facility] Comment on above: Result Comment: <100 mg/dl OPTIMAL 100 - 129 mg/dl NEAR OR ABOVE OPTIMAL 130 - 159 mg/dl BORDERLINE HIGH 160 - 189 mg/dl HIGH >190 mg/dl VERY HIGH Performed By: #### S SCRN #### [facility] [address] [place] [address] [address] Mynor Yun Triglyceride [Mass/Vol] 64 mg/dL Normal <=150 [facility] Comment on above: Performed By: #### S SCRN #### [facility] [address] [place] [address] [address] Mynor Yun VLDL CALC 12.8 mg/dL Normal [facility] Comment on above: Performed By: #### S SCRN #### [facility] [address] [place] [address] [address] Mynor Yun PROF 14(COMP METB)on 022 Albumin [Mass/Vol] 3.8 g/dL Normal 3.5-5.0 [facility] Comment on above: Performed By: #### T SH, LIPID, CMP #### [facility] [address] [place] [address] [address] Mynor Yun Albumin/Globulin [Mass ratio] 0.9 {ratio} Normal [facility] Comment on above: Performed By: #### T SH, LIPID, CMP #### [facility] [address] [place] [address] [address] Mynor Yun ALP [Catalytic activity/Vol] 76 U/L Normal 38-126 [facility] Comment on above: Performed By: #### T SH, LIPID, CMP #### [facility] [address] [place] [address] [address] Mynor Yun ALT [Catalytic activity/Vol] 49 U/L Normal 21-72 [facility] Comment on above: Performed By: #### T SAMARIA, LIPID, CMP #### [facility] [address] [place] [address] [address] Mynor Yun Anion gap [Moles/Vol] 11.2 mmol/L Normal [facility] Comment on above: Performed By: #### T SH, LIPID, CMP #### [facility] [address] [place] [address] [address] Mynor Yun AST [Catalytic activity/Vol] 31 U/L Normal 17-59 [facility] Comment on above: Performed By: #### T SAMARIA, LIPID, CMP #### [facility] [address] [place] [address] Dr. Mynor Yun Bilirubin [Mass/Vol] 0.5 mg/dL Normal 0.2-1.3 [facility] Comment on above: Performed By: #### T SAMARIA, LIPID, CMP #### [facility] [address] [place] [address] Dr. Mynor Yun Calcium [Mass/Vol] 9.0 mg/dL Normal 8.4-10.2 [facility] Comment on above: Performed By: #### T SAMARIA, LIPID, CMP #### [facility] [address] [place] [address] Dr. Mynor Yun Chloride [Moles/Vol] 104 mmol/L Normal 98-107 [facility] Comment on above: Performed By: #### T SAMARIA, LIPID, CMP #### [facility] [address] [place] [address] Dr. Mynor Yun CO2 [Moles/Vol] 30.6 mmol/L Critically high 22.0-30.0 [facility] Comment on above: Performed By: #### T SAMARIA, LIPID, CMP #### [facility] [address] [place] [address] Dr. Mynor Yun Creatinine [Mass/Vol] 0.95 mg/dL Normal 0.66-1.25 [facility] Comment on above: Performed By: #### T SAMARIA, LIPID, CMP #### [facility] [address] [place] [address] Dr. Mynor Yun EGFR-AF PALAUAN >60 Normal >=60 [facility] Comment on above: Performed By: #### T SH, LIPID, CMP #### [facility] [address] [place] [address] Dr. Mynor Yun EGFR-NON AF PALAUAN >60 Normal >=60 [facility] Comment on above: Performed By: #### T SH, LIPID, CMP #### [facility] [address] [place] [address] Dr. Mynor Yun Globulin (S) [Mass/Vol] 4.3 g/dL Normal [facility] Comment on above: Performed By: #### T SH, LIPID, CMP #### [facility] [address] [place] [address] Dr. Mynor Yun Glucose [Mass/Vol] 104 mg/dL Normal 74-106 [facility] Comment on above: Performed By: #### T SH, LIPID, CMP #### [facility] [address] [place] [address] Dr. Mynor Yun Potassium [Moles/Vol] 3.8 mmol/L Normal 3.4-5.0 [facility] Comment on above: Performed By: #### T SH, LIPID, CMP #### [facility] [address] [place] [address] Dr. Mynor Yun Protein [Mass/Vol] 8.1 g/dL Normal 6.1-8.2 [facility] Comment on above: Performed By: #### T SH, LIPID, CMP #### [facility] [address] [place] [address] Dr. Mynor Yun Sodium [Moles/Vol] 142 mmol/L Normal 137-145 [facility] Comment on above: Performed By: #### T SH, LIPID, CMP #### [facility] [address] [place] [address] Dr. Mynor Yun Urea nitrogen [Mass/Vol] 11.0 mg/dL Normal 9.0-20.0 [facility] Comment on above: Performed By: #### T SH, LIPID, CMP #### [facility] [address] [place] [address] [address] Mynor Yun Urea nitrogen/Creatinine [Mass ratio] 11.6 mg/mg Normal [facility] Comment on above: Performed By: #### T SH, LIPID, CMP #### [facility] [address] [place] [address] [address] Mynor Yun TSHon 11-11-2021 TSH 1.612 uIU/mL Normal 0.470-4.680 [facility] Comment on above: Performed By: #### T SH, LIPID, CMP #### [facility] [address] [place] [address] [address] Mynor Yun TSH RANGE SEE BELOW Normal [facility] Comment on above: Result Comment: <0.3 4 UIU/ml HYPERTHYROID 0.34-5.60 UIU/ml EUTHYROID >5.60 UIU/ml HYPOTHYROID Performed By: #### T SH, LIPID, CMP #### [facility] [address] [place] [address] [address] Mynor Yun Encounters Encounter Date Encounter Type Care Provider Facility Start: 06-30-2024 End: 06-30-2024 ambulatory Wilbert Buckner MD [facility] Start: 03-10-2024 End: 03-10-2024 ambulatory Wilbert Buckner MD [facility]: [facility] Start: 02-25-2024 End: 02-25-2024 ambulatory Wilbert Buckner MD [facility]: [facility] Start: 02-18-2024 End: 02-18-2024 ambulatory Wilbert Buckner MD [facility]: [facility] Start: 01-23-2024 End: 01-26-2024 ambulatory ALEXIA TORSTEN [facility] Start: 01-16-2024 End: 01-16-2024 ambulatory Alexia L Torsten Facility:[facility] Start: 01-14-2024 End: 01-14-2024 ambulatory Alexia L Torsten Facility:[facility] Start: 01-09-2024 End: 01-09-2024 ambulatory Alexia L Torsten Facility:[facility] Start: 12-03-2023 End: 12-03-2023 [facility]ulatory [facility] Start: 11-05-2023 End: 11-05-2023 ambulatory Wilbert Buckner MD [facility] Start: 08-23-2023 End: 08-23-2023 ambulatory Alexia L Torsten Facility:[facility] [place] Start: 07-26-2023 End: 07-26-2023 ambulatory Alexia L Torsten Facility:[facility] Start: 06-21-2023 End: 06-21-2023 ambulatory Alexia L Torsten Facility:[facility] Start: 05-22-2023 End: 05-22-2023 ambulatory Alexia L Torsten Facility:[facility] Start: 04-24-2023 End: 04-24-2023 ambulatory Alexia L Torsten Facility:[facility] Start: 03-19-2023 End: 03-19-2023 ambulatory Alexia L Torsten Facility:[facility] – [place] Start: 03-19-2023 End: 03-19-2023 Lab Drop off Alexia L Torsten [facility] Start: 03-19-2023 End: 03-19-2023 ambulatory Alexia L Torsten Facility:[facility] Start: 03-15-2023 ambulatory Alexia Torsten Facility:[facility] Start: 07-28-2022 End: 07-28-[address] LULU BLANK Facility:[facility] Start: 02-01-2022 End: 02-02-[address] LULU BLANK Facility:[facility] Start: 11-15-2021 Encounter for genera l adult medical examination without abnormal findings DR LULU BLANK [facility] Start: 11-11-2021 End: 11-12-[address] [...] virus vacc ine, unspecified formulation Alexia Torsten [facility] 11-12-2020 SARS-CoV-2 (COVID-19 ) mRNA BNT-162b2 vax Alexia Torsten [facility] 10-22-2020 SARS-CoV-2 (COVID-19 ) mRNA BNT-162b2 vax Alexia Torsten [facility] 03-10-2019 pneumococcal polysaccharide vaccine, 23 valent Alexia Torsten [facility] Payers Date Payer Category Payer Unknown 2022 Unknown [id number] 2019 Unknown [id number] 2013 Medicare 1975 Unknown [id number] 2.16.84 0.1.902990.3.579.2.593 1977 Unknown [id number] 2.16.84 0.1.918588.3.579.2.593 1977 Unknown [id number] 2.16.84 0.1.211361.3.579.2.593 1977 Unknown [id number] 2.16.84 0.1.998030.3.579.2.593 1977 Unknown [id number] 2.16.8 40.1.421303.3.579.2.182 1977 Unknown [id number] 2.16.8 40.1.808996.3.579.2.182 1977 Unknown [id number] 2.16.8 40.1.226270.3.579.2.727 1977 Unknown [id number] 2.16.8 40.1.251018.3.579.2.727 1977 Unknown [id number] 2.16.8 40.1.353727.3.579.2. 1977 Unknown [id number] 2.16.8 40.1.598040.3.579.2. 1977 Unknown [id number] 2.16.8 40.1.077868.3.579.2. 1977 Unknown [id number] 2.16.8 40.1.811926.3.579.2. 1977 Unknown [id number] 2.16.8 40.1.267069.3.579.2. 1977 Unknown [id number] 2.16.8 40.1.567302.3.579.2. 1977 Unknown [id number] 2.16.8 40.1.180926.3.579.2. 1977 Unknown [id number] 2.16.8 40.1.367365.3.579.2. 1977 Unknown [id number] 2.16.8 40.1.212601.3.579.2. 1977 Unknown [id number] 2.16. 840.1.003832.3.579.2. 1977 Unknown [id number] 2.16. 840.1.926602.3.579.2. 1977 Unknown [id number] 2.16. 840.1.888665.3.579.2. 1977 Unknown [id number] 2.16. 840.1.099862.3.579.2. 1977 Unknown [id number] 2.16. 840.1.600124.3.579.2. 1977 Unknown [id number] 2.16. 840.1.866574.3.579.2.196 1957 Medicare [id number] 1957 Unknown [id number] Social History Date Type Detail Facility Start: 03-19-2023 Tobacco smoking status Ex-smoker (fi nding) [facility] Tobacco smoking status Never [facility] Sex Assigned At Male [facility] Clinical Note 11-10-2021 Note Date [...] authenticated by: KELLIE SMALLS Date: 2021-11-10 13:16 [facility] Evaluation + Plan note Note Date & Type [facility] Facility Evaluation + Plan note Future Appointments Appointment Date:04/23/2023 11:00:00 AM Scheduled Provider:Alexia Muhammad Location:[facility] Appointment Type: Open [facility] Hospital course Narrative Note Date & Type Note Facility Hospital course Narrative No data available for this section [facility] Hospital Discharge instructions Note Date & Type Note Facility Hospital Discharge instructions No data available for this section [facility] Progress note Note Date & Type Note Facility Progress note No data available for this section [facility] Summary Purpose Family History No [...] and content) DATE CREATED AUTHOR 01/28/2022 [facility] DATE CREATED AUTHOR AUTHOR'S ORGANIZ ATION 08/10/2022 [facility] DATE CREATED AUTHOR AUTHOR'S ORGANIZ ATION 01/28/2024 [facility] [place] DATE CREATED AUTHOR AUTHOR'S ORGANIZ ATION 02/27/2024 Lul Echavarria [facility] DATE CREATED AUTHOR AUTHOR'S ORGANIZ ATION 07/09/[address] [facility] Patient Care team leidy n (unrecognized section and content) Personnel Name: Torsten LOIAlexia Donato Address: Address: [address] [place] [address]- FOR RECORDS PERTAINING TO PATIENTS WHO ARE [...] BE BASED ON THE PRIMARY CLINICAL RECORDS. [facility] [employer] provides no warranty or guarantee of the accuracy or completeness of information in this document.
[2024-07-21 10:08] VITALS: BP 143/73; BP 146/65; PULSE 68; O2SAT 95; O2SAT 96
--- NOTE | 2024-07-21 10:14 | P.ON_ITS ---
Date of procedure: 07/21/24 Pre-op diagnosis: Pain due to lumbar stenosis with neurogenic claudication Post-op diagnosis: same as pre-op Procedure: Procedure: Left L4-5, L5-S1 transforaminal epidural steroid injection Medications: Bupivacaine 0.25% 2cc, lidocaine 2% 1cc, kenalog 80mg The patient was seen and examined in the preoperative holding area.? Informed consent was obtained and placed on the chart.? Patient was brought to the medical procedure unit and placed in the prone position where a timeout was completed verifying the correct patient, procedure site, position, and planned special equipment using sterile aseptic technique.? Under direct fluoroscopic visualization a 25-gauge Quincke tipped spinal needle was advanced to the designated neural foramen where contrast dye was injected to show adequate spread.? The needle was inserted at level left L4-5. There was no evidence of vascular or adverse uptake.? Epidural spread was appreciated.? The above- mentioned injectate was then placed in a 1.5 mL aliquot preceded by negative aspiration.? The needle was removed. The needle was inserted and the procedure repeated at level left L5-S1.? The surgery site was covered.? Patient was taken to the postprocedural recovery area and monitored for an appropriate length of time before found suitable for discharge in the accompaniment of a responsible adult. Anesthesia: Local Surgeon: Wilbert Buckner Pathology: none sent Condition: stable Disposition: no change
[2024-07-21] MEDS: 0.9 % SODIUM CHLORIDE 10 ML SYRINGE - SALINE FLUSH INJ (10:15)
[2024-07-21] MEDS: LIDOCAINE HCL 2% 400 MG/20 ML MDV 3 ML INJ (10:16)
[2024-07-21] MEDS: BUPIVACAINE HCL 0.25% PF 25 MG/10 ML VIAL INJ (10:16)
[2024-07-21] MEDS: IOHEXOL 240 MG/ML - 10 ML VIAL 48 MG INJ (10:16)
[2024-07-21] MEDS: TRIAMCINOLONE ACETONIDE 40 MG/ML VIAL 80 MG INJ (10:17)
== END 2024-07-21 11:01 | disposition home or self-care (01) ==
LOC: SURGOUT 09:09
PROVIDERS: PCP Nurse Practitioner; Visit Provider Anesthesiology
DX: M48.062 Spinal stenosis, lumbar region with neurogenic claudication (principal)
CPT/HCPCS: 64483; 64484; J0665; J3301; Q9966

== ENCOUNTER 2024-08-13 09:08 | Outpatient (OUT) | payer BC, SELFPAY ==
--- OUTSIDE RECORDS SUMMARY | 2024-08-13 09:23 | XMS_ITS | CCD ---
Author Organization [facility] CliniSyva Care Team Providers Care Drier Attendant Name Role Phone MAZIN CANO Admitting Unavailable [...] UGALDE Attending Unavailable TorstenAlexia Primary Care Physician [phone] TORSTEN, ALEXIA Referring Unavailable TORSTEN, ALEXIA Referring [...] Torsten, Alexia Sewell Attending Unavailable Giedraitis , Andrius Guardado Attending Unavailable Giedraitis , Andrius Guardado Attending Unavailable Giedraitis , Andrius Geo Attending Unavailable Giedraitis , Andrius Geo Attending Unavailable Giedraitis , Andrius Guardado Attending Unavailable Giedraitis , Andrius Guardado Attending Unavailable Giedraitis , Andcory Guardado Attending Unavailable Medications Current [...] day(s), # 21 tab(s), Refills(s) 0, Pharmacy: [facility]/pharmacy #[id number], 176.5, cm, 03/19/23 13:15:00 EDT, [...] day(s), # 30 tab(s), Refills(s) 0, Pharmacy: [facility]/pharmacy #6177, 176.5, cm, 03/19/23 13:15:00 EDT, [...] Reference Range Facility Operative Reporton Operative Report [id number]#1. 00TIFF Normal [facility] Consultation Noteon 02-20-20 Consultation Note [id number]#1 .00TIFF Normal [facility] Consultation Noteon 02-06-20 24 Consultation Note [id number]#1 .00TIFF [facility] RAD - MRI Reporton RAD - MRI Report [id number]#1 .00TIFF Normal [facility] MRI LUMBAR SPINE WO CONTRAST on [...] compromise. L2-L3: No disc bulge or protrusion. Whii-py-wzruprxw facet arthropathy. No significant central canal stenosis. [...] Carson Linares DO 01/24/24 Final result Normal [facility] MRI THORACIC SPINE WO [...] Carson Linares DO 01/24/24 Final result Normal [facility] Family Medicine Office/Clini c [...] open MRI. MRI order was sent to [facility] in [place]. Pt states the burning sensation from sitting [...] able to get MRI done at [facility]. is waiting for PA for MRI in [place]. they have an open MRI machine. needs [...] days., # 18 tab(s), Refills(s) 0, Pharmacy: [facility]/pharmacy #6177, 187.5, cm, 01/16/24 13:46:00 EDT, Height/Length Dosing, 183, kg, 01/16/24 13:4... 3. Non-smoker (Z78.9: Other specified health status) continue not smoking Ordered: predniSONE, = 1 -, Oral, As Directed, Take 3 tabs by mouth daily x3 days, then 2 tabs daily x3 days, then 1 tab daily x3 days., # 18 tab(s), Refills(s) 0, Pharmacy: [facility]/pharmacy #6177, 187.5, cm, 01/16/24 13:46:00 EDT, [...] Normal [facility] Comment on above: Result Comment: Elec tronically [...] 1 tab daily x3 days. Pickup at [facility]/pharmacy #[id number] Unchanged cranberry (cranberry oral capsule) See instructions [...] Pain Non-smoker BMI 60.0-69.9, adult Pharmacy Information [facility]/pharmacy #[id number]: [address], [place] [id number] [phone] Allergies No Known Allergies Problems Ongoing - [...] you for choosing us for your care. [facility] Physician Orderon 01-14-2024 Physician Order [id number]#1 .00TIFF [facility] Provider Letteron 01-14-2024 Provider Letter January 14, 2024 RAKESH PIÑA [address] [place] [id number] : 1975 To Whom It May Concern, Please excuse above patient from work. Date of Illness: From: 01/07/2024 To: 01/16/2024 May Return to Work On: 01/17/2024 Restrictions: None Comments: Sincerely, [address] [address] [facility] Ambulatory Visit Summaryon 0 01-09-2024 Ambulatory [...] 11:20 AM EDT With: Alexia Muhammad Where: [facility] [place]enton 01-09-2024 Consent [id number]#1 .00TIFF Normal [facility] ED Note-Physicianon 01-09-20 ED Note-Physician [id number]# 1.00TIFF Normal [facility] Family Medicine Office/Clini c Noteon 01-09-2024 Family Medicine Office/Clinic Note HPI Staff Rakesh is a 48 year old male presenting for ER follow up ER followup: Hospital: [facility] Visit date: 01/07/24 Symptoms the patient presented [...] Pain, # 60 tab(s), Refills(s) 0, Pharmacy: [facility]/pharmacy #6177, 187.5, cm, 01/09/24 10:51:00 EDT, [...] Pain, # 60 tab(s), Refills(s) 0, Pharmacy: [facility]/pharmacy #6177, 187.5, cm, 01/09/24 10:51:00 EDT, Height/Length Dosing, 187.5, kg, 08/23/23 9:30:00 EST, Weight Dosing triamcinolone, 60 mg = 1.5 mL, Injection, IntraMuscular, Once, Stop date 01/09/24 11:20:00 EDT, Routine, Start date 01/09/24 11:20:00 EDT, 01/09/24 11:20:00 EDT Orders: phentermine, 37.5 mg = 1 tab(s), Oral, Daily, # 30 tab(s), Refills(s) 0, Pharmacy: [facility] #72, 176.5, cm, 07/26/23 9:32:00 EST, Height/Length [...] Social Hi (more content not included)... Normal [facility] Comment on above: Result Comment: Elec tronically Signed By: Alexia Muhammad\.jessica\Date and Time Signed: 01/09/24 11:25 EDT Physician Orderon 01-09-2024 Physician Order [id number]#1 .00TIFF [facility] Provider Letteron 01-09-2024 Provider Letter January 09, [address] [address] : 1975 To Whom It May Concern, Please excuse above patient from work due to medical Date of Illness: From: _01-08-24 To: _01-14-24 May Return to Work On:01-15-24 Restrictions: _ Comments: _ Sincerely, Family [address] [address] [facility] RAD - CT Reporton 01-09-[address] RAD - CT Report [id number]#1 .00TIFF [facility] ED Note-Physicianon 01-08-20 ED Note-Physician [id number]#1 .00TIFF [facility] RAD - CT Reporton 01-08-2024 RAD - CT Report [id number]#1 .00TIFF [facility] Operative Reporton Operative Report [id number]#1 .00TIFF [facility] Consultation Noteon 11-07-19 Consultation Note [id number]#1 .00TIFF [facility] PT - Progress Noteson 2023 PT - Progress Notes [id number]#1 .00TIFF Normal [facility] RAD - MISCon 10-29-2023 RAD - MISC [id number]#1 .00TIFF Normal [facility] Retail - Clinical Noteon Retail - Clinical Note [id number]#1 .00TIFF Normal [facility] Plan of Care - PT/OT/Speecho n 09-06-2023 Plan of Care - PT/OT/Speech [id number]#1 .00TIFF Normal [facility] Physician Referralon 023 Physician Referral [id number]# 1.00TIFF Normal [facility] Testost Totalon 08-25-2023 Testosterone [Mass/Vol] 321 ng/dL Invalid Interpretation Code [id number] [facility] Comment on above: Result Comment: Adul t male reference interval is based on a population of healthy nonobese males (BMI <30) between 19 and 39 years old. Iron et.al. JCEM 2017,102;9752-4310. PMID: 83163815. Performed at: [facility] [address] [id number] PhD Domenic Rider Performed By: #### 2 [id number], [id number], [id number] ####[facility] [address] [place] [address] Reminderson 08-24-2023 Reminders - From: Alexia Muhammad [...] detailed message for patient below Normal [facility] Family Medicine Office/Clini c Noteon 08-23-2023 Family [...] thing was in slow motion. 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 He would [...] he would like referral to PT at [place] for bakc/leg pain. gabapentin and muscles relaxers did not help. 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 all questions answered. RTC as needed Ordered: cyclobenzaprine, 10 mg = 1 tab(s), Oral, Bedtime, PRN for spasm, # 30 tab(s), Refills(s) 0, Pharmacy: [facility] #72, 176.5, cm, 07/26/23 9:32:00 EST, Height/Length Dosing, 187.2, kg, 07/26/23 9:32:00 EST, Weight Dosing gabapentin, 300 mg = 1 cap(s), Oral, Daily, # 30 cap(s), Refills(s) 0, Pharmacy: [facility] #72, 176.5, cm, 07/26/23 9:32:00 EST, Height/Length Dosing, 187.2, kg, 07/26/23 9:32:00 EST, Weight Dosing 2. Fatigue (R53.83: Other fatigue) labs drawn today Ordered: Lab Specimen Collect [id number] Testosterone Level Total 3. Hypogonadism male (E29.1: Testicular hypofunction) testosterone ordered Ordered: Lab Specimen Collect [id number] Testosterone Level Total 4. BMI 60.0-69.9, adult (Z68.44: Body mass index [BMI] 60.0-69.9, adult) bmi education complete Ordered: cyclobenzaprine, 10 mg = 1 tab(s), Oral, Bedtime, PRN for spasm, # 30 tab(s), Refills(s) 0, Pharmacy: [facility] #72, 176.5, cm, 07/26/23 9:32:00 EST, Height/Length Dosing, 187.2, kg, 07/26/23 9:32:00 EST, Weight Dosing gabapentin, 300 mg = 1 cap(s), Oral, Daily, # 30 cap(s), Refills(s) 0, Pharmacy: [facility] #72, 176.5, cm, 07/26/23 9:32:00 EST, Height/Length Dosing, 187.2, kg, 07/26/23 9:32:00 EST, Weight Dosing Testosterone Level Total Vitamin B12 Level Vitamin D 25 Hydroxy Follow-up No qualifying data available Patient Education Obesity, Adult, Shdr-tk-Xoxc Problem List/Past Medical History Ongoing Encounter for [...] ago Tob (more content not included)... Normal [facility] Comment on above: Result Comment: Elec [...] an area with limited access to: ? [place], recreation centers, or sidewalks. ? Healthy food choices, such as grocery stores and [employer]. What are the signs or symptoms? The [...] How much exercise you get. ? Take peod-ndy-gpetwth and prescription medicines only as told by [...] with yo (more content not included)... Normal [facility] Vit B12on 12-14-2023 Cobalamin (Vitamin B12) [Mass/Vol] 301 pg/mL Normal 50-1500 [facility] Comment on above: Performed By: #### 2 [id number], [id number], [id number] #### [facility] [address] [place] [address] Vitamin D 25 Hydroxyon 08-23 Vitamin D 25 Hydroxy 57.7 ng/mL Normal 30.0-100.0 [facility] Comment on above: Performed By: #### 2 [id number], [id number], [id number] ####[facility] [address] [place] [address] Ambulatory Visit Summaryon 1 09-25-2022 Ambulatory Visit [...] 9:20 AM EST With: Alexia Muhammad Where: [facility] [place] Normal [facility] Family Medicine Office/Clini c Noteon 07-26-2023 [...] spasm, # 30 tab(s), Refills(s) 0, Pharmacy: [facility] #72, 176.5, cm, 07/26/23 9:32:00 EST, Height/Length Dosing, 187.2, kg, 07/26/23 9:32:00 EST, Weight Dosing gabapentin, 300 mg = 1 cap(s), Oral, Daily, # 30 cap(s), Refills(s) 0, Pharmacy: [facility] #72, 176.5, cm, 07/26/23 9:32:00 EST, Height/Length Dosing, 187.2, kg, 07/26/23 9:32:00 EST, Weight Dosing methylPREDNISolone, = 1 packet(s), Oral, As Directed, as directed on package labeling, X 6 day(s), # 21 tab(s), Refills(s) 0, Pharmacy: [facility] #72, 176.5, cm, 07/26/23 9:32:00 EST, Height/Length [...] spasm, # 30 tab(s), Refills(s) 0, Pharmacy: [facility] #72, 176.5, cm, 07/26/23 9:32:00 EST, Height/Length Dosing, 187.2, kg, 07/26/23 9:32:00 EST, Weight Dosing gabapentin, 300 mg = 1 cap(s), Oral, Daily, # 30 cap(s), Refills(s) 0, Pharmacy: [facility] #72, 176.5, cm, 07/26/23 9:32:00 EST, Height/Length Dosing, 187.2, kg, 07/26/23 9:32:00 EST, Weight Dosing methylPREDNISolone, = 1 packet(s), Oral, As Directed, as directed on package labeling, X 6 day(s), # 21 tab(s), Refills(s) 0, Pharmacy: [facility] #72, 176.5, cm, 07/26/23 9:32:00 EST, Height/Length Dosing, 187.2, kg, 07/26/23 9:32:00 EST, Weight Dosing 3. Numbness and tingling of foot (R20.0: Anesthesia of skin) discussed ENG results Ordered: cyclobenzaprine, 10 mg = 1 tab(s), Oral, Bedtime, PRN for spasm, # 30 tab(s), Refills(s) 0, Pharmacy: [facility] #72, 176.5, cm, 07/26/23 9:32:00 EST, Height/Length Dosing, 187.2, kg, 07/26/23 9:32:00 EST, Weight Dosing gabapentin, 300 mg = 1 cap(s), Oral, Daily, # 30 cap(s), Refills(s) 0, Pharmacy: [facility] #72, 176.5, cm, 07/26/23 9:32:00 EST, Height/Length Dosing, 187.2, kg, 07/26/23 9:32:00 EST, Weight Dosing methylPREDNISolone, = 1 packet(s), Oral, As Directed, as directed on package labeling, X 6 day(s), # 21 tab(s), Refills(s) 0, Pharmacy: [facility] #72, 176.5, cm, 07/26/23 9:32:00 EST, Height/Length Dosing, 187.2, kg, 07/26/23 9:32:00 EST, Weight Dosing 4. Class 3 obesity (E66.01: Morbid (severe) obesity due to excess calories) pt continues with diet Ordered: cyclobenzaprine, 10 mg = 1 tab(s), Oral, Bedtime, PRN for spasm, # 30 tab(s), Refills(s) 0, Pharmacy: [facility] #72, 176.5, cm, 07/26/23 9:32:00 EST, Height/Length Dosing, 187.2, kg, 07/26/23 9:32:00 EST, Weight Dosing gabapentin, 300 mg = 1 cap(s), Oral, Daily, # 30 cap(s), Refills(s) 0, Pharmacy: [facility] #72, 176.5, cm, 07/26/23 9:32:00 EST, Height/Length Dosing, 187.2, kg, 07/26/23 9:32:00 EST, Weight Dosing methylPREDNISolone, = 1 packet(s), Oral, As Directed, as directed on package labeling, X 6 day(s), # 21 tab(s), Refills(s) 0, Pharmacy: [facility] #72, (more content not included)... Normal [facility] Comment on above: Result Comment: Elec tronically Signed By: Alexia Muhammad\.br\Date and Time Signed: 07/26/23 09:54 EST EMG Electromyographyon 07-10 EMG Electromyography [id number]#1 .00TIFF Normal [facility] EMG Electromyography [id number]#1. 00TIFF [facility] Physician Referralon 023 Physician Referral [id number]# 1.00TIFF [facility] Ambulatory Visit Summaryon 1 Ambulatory Visit [...] 9:20 AM EST With: Alexia Muhammad Where: [facility] Normal [facility] Family Medicine Office/Clini c Noteon 06-21-2023 [...] day(s), # 30 tab(s), Refills(s) 1, Pharmacy: [facility] #72, 176.5, cm, 06/21/23 9:41:00 EDT, Height/Length Dosing, 186.7, kg, 06/21/23 9:41:00 EDT, Weight Dosing meloxicam, 15 mg = 1 tab(s), Oral, Daily, X 30 day(s), # 30 tab(s), Refills(s) 0, Pharmacy: [facility] #72, 176.5, cm, 06/21/23 9:41:00 EDT, Height/Length Dosing, 186.7, kg, 06/21/23 9:41:00 EDT, Weight Dosing meloxicam, 15 mg = 1 tab(s), Oral, Daily, # 30 tab(s), Refills(s) 1, Pharmacy: [facility] #72, 176.5, cm, 05/22/23 9:51:00 EDT, Height/Length Dosing, 190.2, kg, 05/22/23 9:51:00 EDT, Weight Dosing 2. Left sciatic nerve pain (M54.32: Sciatica, left side) pt continues to have left sciatic nerve pain but it is improved Ordered: meloxicam, 15 mg = 1 tab(s), Oral, Daily, X 30 day(s), # 30 tab(s), Refills(s) 1, Pharmacy: [facility] #72, 176.5, cm, 06/21/23 9:41:00 EDT, Height/Length Dosing, 186.7, kg, 06/21/23 9:41:00 EDT, Weight Dosing meloxicam, 15 mg = 1 tab(s), Oral, Daily, X 30 day(s), # 30 tab(s), Refills(s) 0, Pharmacy: [facility] #72, 176.5, cm, 06/21/23 9:41:00 EDT, Height/Length Dosing, 186.7, kg, 06/21/23 9:41:00 EDT, Weight Dosing meloxicam, 15 mg = 1 tab(s), Oral, Daily, # 30 tab(s), Refills(s) 1, Pharmacy: [facility] #72, 176.5, cm, 05/22/23 9:51:00 EDT, Height/Length Dosing, 190.2, kg, 05/22/23 9:51:00 EDT, Weight Dosing phentermine, 37.5 mg = 1 tab(s), Oral, Daily, X 30 day(s), # 30 tab(s), Refills(s) 0, Pharmacy: [facility] #72, 176.5, cm, 05/22/23 9:51:00 EDT, Height/Length Dosing, 190.2, kg, 05/22/23 9:51:00 EDT, Weight Dosing [facility] External Ambulatory Referral 3. Lower extremity numbness (R20.0: Anesthesia of skin) EMG order sent to [facility] in [place] Ordered: [facility] External Ambulatory Referral 4. Morbid obesity due to excess calories (E66.01: Morbid (severe) obesity due to excess calories) BMI education complete Ordered: meloxicam, 15 mg = 1 tab(s), Oral, Daily, X 30 day(s), # 30 tab(s), Refills(s) 1, Pharmacy: [facility] #72, 176.5, cm, 06/21/23 9:41:00 EDT, Height/Length Dosing, 186.7, kg, 06/21/23 9:41:00 EDT, Weight Dosing meloxicam, 15 mg = 1 tab(s), Oral, Daily, X 30 day(s), # 30 tab(s), Refills(s) 0, Pharmacy: [facility] #[facility], 176.5, cm, 06/21/23 9:41:00 EDT, Height/Length Dosing, 186.7, kg, 06/21/23 9:41:00 EDT, Weight Dosing meloxicam, 15 mg = 1 tab(s), Oral, Daily, # 30 tab(s), Refills(s) 1, Pharmacy: [facility] #72, 176.5, cm, 05/22/23 9:51:00 EDT, Height/Length Dosing, 190.2, kg, 05/22/23 9:51:00 EDT, Weight Dosing phentermine, 37.5 mg = 1 tab(s), Oral, Daily, X 30 day(s), # 30 tab(s), Refills(s) 0, Pharmacy: [facility] #[facility], 176.5, cm, 05/22/23 9:51:00 EDT, Height/Length Dosing, 190.2, kg, 05/22/23 9:51:00 EDT, Weight Dosing 5. BMI 50.0-59.9, adult (Z68.43: Body mass index [BMI] 50.0-59.9, adult) BMI education complete 6. Non-smoker (Z78.9: Other specified health status) continue not smoking Ordered: meloxicam, 15 mg = 1 tab(s), Oral, Daily, X 30 day(s), # 30 tab(s), Refills(s) 1, Pharmacy: [facility] #[facility], 176.5, cm, 06/21/23 9:41:00 EDT, Height/Length Dosing, 186.7, kg, 06/21/23 9:41:00 EDT, Weight Dosing meloxicam, 15 mg = 1 tab(s), Or (more content not included)... [facility] Comment on above: Result Comment: Elec [...] 9:20 AM EDT With: Alexia Muhammad Where: [facility] Ambulatory Visit Summary RAKESH PIÑA :1975 [...] 9:20 AM EDT With: Alexia Muhammad Where: [facility] Family Medicine Office/Clini c Noteon 05-22-2023 [...] in his legs at night. 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 all questions answered. RTC 4 weeks Ordered: meloxicam, 15 mg = 1 tab(s), Oral, Daily, # 30 tab(s), Refills(s) 1, Pharmacy: [facility] #72, 176.5, cm, 05/22/23 9:51:00 EDT, Height/Length Dosing, 190.2, kg, 05/22/23 9:51:00 EDT, Weight Dosing 2. Left sciatic nerve pain (M54.32: Sciatica, left side) will order antiinflammatory. steroid did not give him any relief Ordered: meloxicam, 15 mg = 1 tab(s), Oral, Daily, # 30 tab(s), Refills(s) 1, Pharmacy: [facility] #[facility], 176.5, cm, 05/22/23 9:51:00 EDT, Height/Length Dosing, 190.2, kg, 05/22/23 9:51:00 EDT, Weight Dosing phentermine, 37.5 mg = 1 tab(s), Oral, Daily, X 30 day(s), # 30 tab(s), Refills(s) 0 phentermine, 37.5 mg = 1 tab(s), Oral, Daily, X 30 day(s), # 30 tab(s), Refills(s) 0, Pharmacy: [facility] #[facility], 176.5, cm, 05/22/23 9:51:00 EDT, Height/Length Dosing, 190.2, kg, 05/22/23 9:51:00 EDT, Weight Dosing 3. BMI 60.0-69.9, adult (Z68.44: Body mass index [BMI] 60.0-69.9, adult) BMI education complete Ordered: meloxicam, 15 mg = 1 tab(s), Oral, Daily, # 30 tab(s), Refills(s) 1, Pharmacy: [facility] #[facility], 176.5, cm, 05/22/23 9:51:00 EDT, Height/Length Dosing, 190.2, kg, 05/22/23 9:51:00 EDT, Weight Dosing 4. Morbid obesity due to excess calories (E66.01: Morbid (severe) obesity due to excess calories) see above Ordered: meloxicam, 15 mg = 1 tab(s), Oral, Daily, # 30 tab(s), Refills(s) 1, Pharmacy: [facility] #[facility], 176.5, cm, 05/22/23 9:51:00 EDT, Height/Length Dosing, 190.2, kg, 05/22/23 9:51:00 EDT, Weight Dosing phentermine, 37.5 mg = 1 tab(s), Oral, Daily, X 30 day(s), # 30 tab(s), Refills(s) 0 phentermine, 37.5 mg = 1 tab(s), Oral, Daily, X 30 day(s), # 30 tab(s), Refills(s) 0, Pharmacy: [facility] #[facility], 176.5, cm, 05/22/23 9:51:00 EDT, Height/Length Dosing, 190.2, kg, 05/22/23 9:51:00 EDT, Weight Dosing 5. Non-smoker (Z78.9: Other specified health status) continue not smoking Ordered: meloxicam, 15 mg = 1 tab(s), Oral, Daily, # 30 tab(s), Refills(s) 1, Pharmacy: [facility] #[facility], 176.5, cm, 05/22/23 9:51:00 EDT, Height/Length Dosing, 190.2, kg, 05/22/23 9:51:00 EDT, Weight Dosing phentermine, 37.5 mg = 1 tab(s), Oral, Daily, X 30 day(s), # 30 tab(s), Refills(s) 0 phentermine, 37.5 mg = 1 tab(s), Oral, Daily, X 30 day(s), # 30 tab(s), Refills(s) 0, Pharmacy: [facility] #[facility], 176.5, cm, 05/22/23 9:51:00 EDT, Height/Length [...] Daily Allerg (more content not included)... Normal [facility] Comment on above: Result Comment: Elec tronically Signed By: Alexia Muhammad\.br\Date and Time Signed: 05/22/23 10:34 EDT Consenton 04-26-2023 Consent [id number] .00CD:[id number] Normal [facility] Family Medicine Office/Clini c Noteon 04-24-2023 [...] kenalog 60mg IM in office today. Normal [facility] Comment on above: Result Comment: Elec [...] 11:00 AM EDT With: Alexia Muhammad Where: [facility] Normal [facility] Auto Diffon 03-19-2023 Basophils/100 WBC (Bld) 0.3 % Normal 0.0-2.0 [facility] Comment on above: Order Comment: Order Added by Discern Expert. Performed By: #### 2 [id number], [id number], [id number], [id number] ####[facility] [address] [place] [address] Basophils/Leukocytes Auto (Bld) [Pure # fraction] 0.0 E9/L Normal 0.0-0.2 [facility] Comment on above: Order Comment: Order Added by Discern Expert. Performed By: #### 2 173809, [id number], [id number], [id number] ####[address] [place] [address] Eosinophils/100 WBC (Bld) 2.1 % Normal 0.0-8.0 [facility] Comment on above: Order Comment: Order Added by Discern Expert. Performed By: #### 2 538969, 4702345, 1454459, [id number] ####[address] [place] [address] Eosinophils/Leukocytes Auto (Bld) [Pure # fraction] 0.2 E9/L Normal 0.0-0.5 [facility] Comment on above: Order Comment: Order Added by Discern Expert. Performed By: #### 2 560601, 4747425, 3003869, [id number], [id number] ####[address] [place] [address] Lymphocytes/100 WBC (Bld) 20.5 % Normal 14.0-50.0 [facility] Comment on above: Order Comment: Order Added by Discern Expert. Performed By: #### 2 757642, 0548985, 7216481, 1102443, [id number] ####[facility] [address] [place] [address] Lymphocytes/Leukocytes Auto (Bld) [Pure # fraction] 1.6 E9/L Normal 1.0-4.0 [facility] Comment on above: Order Comment: Order Added by Discern Expert. Performed By: #### 2 017225, 1694020, 9724620, 4374162, [id number] ####[facility] [address] [place] [address] Monocytes/100 WBC (Bld) 8.7 % Normal 4.0-14.0 [facility] Comment on above: Order Comment: Order Added by Discern Expert. Performed By: #### 2 284138, 3541983, 2066134, [id number], [id number] ####[address] [place] [address] Monocytes/Leukocytes Auto (Bld) [Pure # fraction] 0.7 E9/L Normal 0.2-1.0 [facility] Comment on above: Order Comment: Order Added by Discern Expert. Performed By: #### 2 981018, 9225246, 5353987, 6550274, [id number] ####[facility] [address] [place] [address] Neutrophils/100 WBC (Bld) 68.4 % Normal 36.0-75.0 [facility] Comment on above: Order Comment: Order Added by Discern Expert. Performed By: #### 2 870988, 6757350, 6047550, 6970326, [id number] ####[address] [address] Neutrophils/Leukocytes Auto (Bld) [Pure # fraction] 5.3 E9/L Normal 2.0-7.5 [facility] Comment on above: Order Comment: Order Added by Discern Expert. Performed By: #### 2 785726, 4636089, 3419767, 8218895, [id number] ####[facility] [address] [place] [address] CBC w/ Auto Diffon 3 Erythrocyte distribution width (RBC) [Ratio] 16.3 % High 10.9-14.2 [facility] Comment on above: Performed By: #### 2 352391, 3364154, 9186536, 3292409, [id number] ####[facility] [facility] [address] [place] [address] Hematocrit (Bld) [Volume fraction] 43.7 % Normal 37.7-49.0 [facility] Comment on above: Performed By: #### 2 561176, 1278106, 4448810, 1948675, [id number] ####[facility] [address] [place] [address] Hemoglobin (Bld) [Mass/Vol] 14.4 g/dL Normal 13.5-17.5 [facility] Comment on above: Performed By: #### 2 397254, 2392016, 2101892, 4240989, [id number] ####[address] [address] MCH (RBC) [Entitic mass] 27.9 pg Normal 27.0-34.0 [facility] Comment on above: Performed By: #### 2 418596, 4669587, 5352645, 3399104, [id number] ####[address] [address] MCHC (RBC) [Mass/Vol] 33.0 g/dL Normal 31.4-36.0 [facility] Comment on above: Performed By: #### 2 314250, 4190739, 4521981, 4978923, 40313715 ####[facility] [address] [place] [address] MCV (RBC) [Entitic vol] 84.8 fL Normal 80.0-100.0 [facility] Comment on above: Performed By: #### 2 660008, 1699431, 8466918, 0419666, [id number] ####[address] [place] [address] Platelet mean volume (Bld) [Entitic vol] 7.7 fL Normal 6.4-10.8 [facility] Comment on above: Performed By: #### 2 978930, 4831409, 5207480, 0435882, [id number] ####[facility] [address] [place] [address] Platelets (Bld) [#/Vol] 278.0 E9/L Normal 150.0-500.0 [facility] Comment on above: Performed By: #### 2 735991, 6326244, 7423438, 5962022, 77229673 ####[facility] [address] [place] [address] RBC (Bld) [#/Vol] 5.2 E12/L Normal 4.3-5.9 [facility] Comment on above: Performed By: #### 2 674105, 1205507, 7969388, 5151028, [id number] ####[facility] [address] [place] [address] WBC corrected for nucl RBC Auto (Bld) [#/Vol] 7.7 E9/L Normal 4.0-11.0 [facility] Comment on above: Performed By: #### 2 296855, 4527476, 6352855, 9479046, 44558435 ####[facility] [address] [place] [address] CHEMISTRYOrdered By: SYSTEM SYSTEM on 03-19-2023 Cholesterol [...] day(s), # 21 tab(s), Refills(s) 0, Pharmacy: [facility]/pharm[facility] #[id number], 176.5, cm, 03/19/23 13:15:00 EDT, Height/Length Dosing phentermine, 37.5 mg = 1 tab(s), Oral, Daily, # 30 tab(s), Refills(s) 0, Pharmacy: [facility] #[id number], 176.5, cm, 03/19/23 13:15:00 EDT, Height/Length [...] day(s), # 21 tab(s), Refills(s) 0, Pharmacy: [facility] #[id number], 176.5, cm, 03/19/23 13:15:00 EDT, Height/Length Dosing phentermine, 37.5 mg = 1 tab(s), Oral, Daily, # 30 tab(s), Refills(s) 0, Pharmacy: [facility] #[id number], 176.5, cm, 03/19/23 13:15:00 EDT, Height/Length Dosing CBC w/ Auto Diff Cologuard Screening Test Lipid Panel PSA Screen, Total Thyroid Stimulating Hormone 3. Non-smoker (Z78.9: Other specified health status) continue not smoking Ordered: methylPREDNISolone, = 1 packet(s), Oral, As Directed, as directed on package labeling, X 6 day(s), # 21 tab(s), Refills(s) 0, Pharmacy: [facility]/pharmacy #[id number], 176.5, cm, 03/19/23 13:15:00 EDT, Height/Length Dosing phentermine, 37.5 mg = 1 tab(s), Oral, Daily, # 30 tab(s), Refills(s) 0, Pharmacy: [facility]/pharmacy #[id number], 176.5, cm, 03/19/23 13:15:00 EDT, Height/Length Dosing CBC w/ Auto Diff Cologuard Screening Test Lipid Panel PSA Screen, Total Thyroid Stimulating Hormone 4. Left sciatic nerve pain (M54.32: Sciatica, left side) medrol dose pack sent Ordered: methylPREDNISolone, = 1 packet(s), Oral, As Directed, as directed on package labeling, X 6 day(s), # 21 tab(s), Refills(s) 0, Pharmacy: [facility]/pharmacy #[id number], 176.5, cm, 03/19/23 13:15:00 EDT, Height/Length Dosing phentermine, 37.5 mg = 1 tab(s), Oral, Daily, # 30 tab(s), Refills(s) 0, Pharmacy: [facility]/pharmacy #[id number], 176.5, cm, 03/19/23 13:15:00 EDT, Height/Length Dosing Colon cancer screening (Z12.11: (more content not included)... Normal [facility] Comment on above: Result Comment: Elec tronically Signed By: Alexia Muhammad\.jessica\Date and Time Signed: 03/19/23 14:00 EDT Formson 03-19-2023 Forms [id number]:127 Normal [facility] HEMATOLOGYOrdered By: SYSTEM SYSTEM on 03-19-2023 [...] 5.2 E12/L Normal 4.3 - 5.9 E12/L [facility] HemeAutoSS WBC corrected for nucl RBC Auto (Bld) [#/Vol] 7.7 E9/L Normal 4.0 - 11.0 E9/L [facility] HemeAutoSS Lipid Panelon 03-19-2023 Cholesterol [Mass/Vol] 171 mg/dL Normal 120-200 [facility] Comment on above: Performed By: #### 2 236643, 1667460, 8678999, 4125075, [id number] ####[facility] [address] [place] [address] Cholesterol in HDL [Mass/Vol] 39 mg/dL Invalid Interpretation Code [facility] Comment on above: Result Comment: HDL > or equal to 60 mg/dL: Low cardiovascular risk HDL < 40 mg/dL : High cardiovascular risk Performed By: #### 2 934435, 7932933, 6043770, 3892127, [id number] ####[facility] [address] [place] [address] Cholesterol in LDL [Mass/Vol] 112 mg/dL Normal <=129 [facility] Comment on above: Performed By: #### 2 485872, 3991751, 3354154, 7790928, 56099353 ####[facility] [address] [place] [address] Cholesterol in VLDL [Mass/Vol] 19 mg/dL Normal 7-40 [facility] Comment on above: Performed By: #### 2 003138, 4647217, 4787156, 4190597, 97664529 ####[facility] [address] [place] [address] Triglyceride [Mass/Vol] 94 mg/dL Normal <=149 [facility] Comment on above: Performed By: #### 2 707438, 0420264, 1677179, 1837637, 04226965 ####[facility] [address] [place] [address] PSA Screen, Totalon 03-19-20 23 Prostate specific Ag [Mass/Vol] 0.9 ng/mL Normal 0.1-3.5 [facility] Comment on above: Result Comment: The concentration of PSA determined by different manufacturers can vary due to differences in assay methods and reagent specificity. Values obtained from different assay methods cannot be used interchangeably. The methodology used for this result was chemiluminescence using [employer]'s Access Hybritech PSA reagent. Performed By: #### 2 070087, 9864311, 6700325, 2611122, 38633664 ####[facility] [address] [place] [address] TSHon 03-19-2023 TSH Qn 2.03 m[IU]/L Normal 0.34-5.60 [facility] Comment on above: Performed By: #### 2 816085, 9012821, 5287452, 2319078, 18310297 ####[facility] [address] [place] [address] Covid-19 PCR (CVDTB)on 07-11 SARS-CoV-2 (COVID-19) RNA BETHANY+probe Ql (Unsp spec) Not detected Normal NOT DETECTED [facility] Comment on above: Result Comment: When [...] for this test is supported by the [place] of Health and Human Service's declaration that [...] Performed By: #### C VDTBH #### [facility] [address] [address] [address] Mynor Yun GROUP A STREP CULTUREon 07-11 S. pyogenes Ag Ql (Unsp spec) Culture Observations: NEGATIVE FOR GROUP A STREPTOCOCCUS. Normal [facility] Comment on above: Performed By: #### G RASTCX #### [facility] [address] [place] [address] Dr. Mynor Yun INFLUENZA A AND B AGon 07-28 INFLUANEGH SEE BELOW Normal [facility] Comment on above: Result Comment: Nega tive for Flu A protein angiten. Infection due to Flu A cannot be ruled out. Flu A angiten in the sample may be below the detection limit of the test. Performed By: #### I NFLUAB #### [facility] [address] [place] [address] Dr. Mynor Yun INFLUBNEGH SEE BELOW Normal [facility] Comment on above: Result Comment: Nega tive for Flu B protein antigen. Infection due to Flu B cannot be ruled out. Flu B antigen in the sample may be below the detection limit of the test. Performed By: #### I NFLUAB #### [facility] [address] [place] [address] Dr. Mynor Yun INFLUENZA A AG Negative Normal NEGATIVE SEE COMMENT [facility] Comment on above: Performed By: #### I NFLUAB #### [facility] [address] [place] [address] Dr. Mynor Yun INFLUENZA B AG Negative Normal NEGATIVE SEE COMMENT [facility] Comment on above: Performed By: #### I NFLUAB #### [facility] [address] [place] [address] Dr. Mynor Yun INTERNAL CONTROLS Within Normal Limits Normal Wi thin Normal Limits [facility] Comment on above: Performed By: #### I NFLUAB #### [facility] [address] [place] [address] Dr. Mynor Yun STREPT SCREENon 07-28-2022 STREP SCREEN A Negative Normal NEGATIVE The [facility] Comment on above: Performed By: #### S SCRN #### [facility] [address] [place] [address] Dr. Mynor Yun XR SINUSES 3 VIEWS [...] SMALLS Date: 2022-02-01 09:58 Normal [facility] HAND LEFT 3 [facility] 12-29-2021 HAND LEFT 3 [facility] Department of Radiology [address] [place] [id number] Patient Name: RAKESH PIÑA : 1975 Sex: M Age: Race: White Pt. Location: Patient Status: D Ordered Date: 12/29/2021 11:45:00 AM Completed Date: 12/29/2021 11:50 AM Requesting Provider: LORI DALLAS Attending Provider: LORI DALLAS Report Copy To: Signs & Symptoms: M79.642 Pain in left hand I10 History: Comments: Evaluate Exam: HAND LEFT 3 [facility] HAND LEFT 3 [facility] 12/29/2021 11:50 AM CLINICAL INDICATIONS: [...] alignment. Electronically signed: Heather Montana. Transcribed by: [email or web address], User Resident: Electronically Signed by: HEATHER MONTANA @ 12/31/2021 08:55 AM Normal [facility] Comment on above: Order Comment: Evalu ate HAND LEFT 3 Son 12-08-2021 HAND LEFT 3 S [facility] Department of Radiology [address] [place] [id number] Patient Name: RAKESH PIÑA : 1975 Sex: M Age: Race: White Pt. Location: Patient Status: D Ordered Date: 12/08/2021 1:25:00 PM Completed Date: 12/08/2021 01:29 PM Requesting Provider: LORI DALLAS Attending Provider: LORI DALLAS Report Copy To: Signs & Symptoms: M79.642 Pain in left hand I10 History: [place] Comments: Evaluate Exam: HAND LEFT 3 [facility] HAND LEFT 3 S 12/08/2021 1:29 PM [...] bridging. Electronically signed: Ronaldo Major. Transcribed by: [email or web address], User Resident: Electronically Signed by: RONALDO MAJOR @ 12/09/2021 04:04 PM Normal [facility] Comment on above: Order Comment: Evalu ate HAND LEFT 3 Son 11-14-2021 HAND LEFT 3 S [facility] Department of Radiology [address] [place] [id number] Patient Name: RAKESH PIÑA : 1975 [...] PA, Lateral, Oblique Exam: HAND LEFT 3 [facility] HAND LEFT 3 S 11/14/2021 1:58 PM [...] fracture. Electronically signed: Ramirez Smith. Transcribed by: [email or web address], User Resident: Electronically Signed by: RAMIREZ SMITH @ 11/14/2021 08:02 PM Normal [facility] Comment on above: Order Comment: Views (X-RAY, HAND): PA, Lateral, Oblique TESTOSTERONE, TOTALon 2021 Testosterone [Mass/Vol] 411 ng/dL Normal 264-916 [facility] Comment on above: Result Comment: Adul t male reference interval is based on a population of healthy nonobese males (BMI <30) between 19 and 39 years old. Iron et.al. JCEM 2017,102;9587-6606. PMID: [id number]. Performed By: #### T ESTTOT #### [facility] [address] [place] [address] Dr. Mynor Yun CBC AUTO DIFFon 11-11-2021 BASO # 0.0 103/ul Normal 0.0-0.1 [facility] Comment on above: Performed By: #### C BC #### [facility] [address] [place] [address] Dr. Mynor Yun Basophils/100 WBC (Bld) 0.2 % Normal 0.2-2.0 [facility] Comment on above: Performed By: #### C BC #### [facility] [address] [place] [address] Dr. Mynor Yun EO # 0.1 103/ul Normal 0.0-0.7 [facility] Comment on above: Performed By: #### C BC #### [facility] [address] [place] [address] Dr. Mynor Yun Eosinophils/100 WBC (Bld) 1.2 % Normal 0.9-7.0 [facility] Comment on above: Performed By: #### C BC #### [facility] [address] [place] [address] Dr. Mynor Yun Erythrocyte distribution width (RBC) [Ratio] 14.3 % Normal 11.0-15.0 [facility] Comment on above: Performed By: #### C BC #### [facility] [address] [place] [address] Dr. Mynor Yun Hematocrit (Bld) [Volume fraction] 47.3 % Normal 42.0-54.0 [facility] Comment on above: Performed By: #### C BC #### [facility] [address] [place] [address] Dr. Mynor Yun Hemoglobin (Bld) [Mass/Vol] 15.2 g/dL Normal 14.0-18.0 [facility] Comment on above: Performed By: #### C BC #### [facility] [address] [place] [address] Dr. Mynor Yun IG # 0.03 10e3/ul Normal 0.00-0.03 [facility] Comment on above: Performed By: #### C BC #### [facility] [address] [place] [address] Dr. Mynor Yun IG % 0.3 % Normal 0.0-0.5 [facility] Comment on above: Performed By: #### C BC #### [facility] [address] [place] [address] Dr. Mynor Yun LYMPH # 1.6 103/ul Normal 1.2-3.8 [facility] Comment on above: Performed By: #### C BC #### [facility] [address] [place] [address] Dr. Mynor Yun Lymphocytes/100 WBC (Bld) 18.4 % Critically low 20.5-60.0 [facility] Comment on above: Performed By: #### C BC #### [facility] [address] [place] [address] Dr. Mynor Yun MANUAL DIFF REQ NO Normal [facility] Comment on above: Performed By: #### C BC #### [facility] [address] [address] [address] Mynor Yun MCH (RBC) [Entitic mass] 28.8 pg Normal 25.9-34.0 [facility] Comment on above: Performed By: #### C BC #### [facility] [address] [place] [address] Dr. Mynor Yun MCHC (RBC) [Mass/Vol] 32.1 g/dL Normal 29.9-35.2 [facility] Comment on above: Performed By: #### C BC #### [facility] [address] [place] [address] Dr. Mynor Yun MCV (RBC) [Entitic vol] 89.8 fL Normal 80.0-94.0 [facility] Comment on above: Performed By: #### C BC #### [facility] [address] [place] [address] Dr. Mynor Yun MONO # 0.7 103/ul Normal 0.3-0.8 [facility] Comment on above: Performed By: #### C BC #### [facility] [address] [place] [address] Dr. Mynor Yun Monocytes/100 WBC (Bld) 8.4 % Normal 1.7-12.0 [facility] Comment on above: Performed By: #### C BC #### [facility] [address] [place] [address] Dr. Mynor Yun NEUT # 6.2 103/ul Normal 1.4-6.5 [facility] Comment on above: Performed By: #### C BC #### [facility] [address] [place] [address] Dr. Mynor Yun Neutrophils/100 WBC (Bld) 71.5 % Normal 43.0-75.0 [facility] Comment on above: Performed By: #### C BC #### [facility] [address] [place] [address] Dr. Mynor Yun Platelet mean volume (Bld) [Entitic vol] 8.7 fL Critically low 9.5-13.5 [facility] Comment on above: Performed By: #### C BC #### [facility] [address] [address] [address] Mynor Yun PLT 263 103/ul Normal 150-450 [facility] Comment on above: Performed By: #### C BC #### [facility] [address] [address] [address] Mynor Yun RBC 5.27 106/ul Normal 4.70-6.10 [facility] Comment on above: Performed By: #### C BC #### [facility] [address] [address] [address] Mynor Yun WBC 8.7 103/ul Normal 4.0-11.0 [facility] Comment on above: Performed By: #### C BC #### [facility] [address] [place] [address] Dr. Mynor Yun LIPID PROFILEon 11-11-2021 CHOL-HDL RATIO NORM SEE BELOW Normal [facility] Comment on above: Result Comment: 3.3 - 4.4 LOW RISK 4.4 - 7.1 AVERAGE RISK 7.1 - 11.0 MODERATE RISK >11.0 HIGH RISK Performed By: #### S SCRN #### [facility] [address] [place] [address] Dr. Mynor Yun Cholesterol [Mass/Vol] 129 mg/dL Normal <=200 [facility] Comment on above: Performed By: #### S SCRN #### [facility] [address] [place] [address] Dr. Mynor Yun Cholesterol in HDL [Mass/Vol] 34 mg/dL Normal [facility] Comment on above: Performed By: #### S SCRN #### [facility] [address] [place] [address] Dr. Mynor Yun Cholesterol in LDL [Mass/Vol] 82.2 mg/dL Normal [facility] Comment on above: Performed By: #### S SCRN #### [facility] [address] [place] [address] Dr. Mynor Yun Cholesterol.total/Chol esterol in HDL [Mass ratio] 3.8 {ratio} Normal [facility] Comment on above: Performed By: #### S SCRN #### [facility] [address] [address] [address] Mynor Yun HDL NORMAL > or = 60 mg/dl - LO W CARDIOVASCULAR RISK <40 mg/dl - HIGH CARDIOVASCULAR RISK Normal [facility] Comment on above: Performed By: #### S SCRN #### [facility] [address] [address] [address] Mynor Yun LDL CALC NORMAL SEE BELOW Normal [facility] Comment on above: Result Comment: <100 mg/dl OPTIMAL 100 - 129 mg/dl NEAR OR ABOVE OPTIMAL 130 - 159 mg/dl BORDERLINE HIGH 160 - 189 mg/dl HIGH >190 mg/dl VERY HIGH Performed By: #### S SCRN #### [facility] [address] [address] [address] Mynor Yun Triglyceride [Mass/Vol] 64 mg/dL Normal <=150 [facility] Comment on above: Performed By: #### S SCRN #### [facility] [address] [address] [address] Mynor Yun VLDL CALC 12.8 mg/dL Normal [facility] Comment on above: Performed By: #### S SCRN #### [facility] [address] [address] [address] Mynor Yun PROF 14(COMP METB)on 022 Albumin [Mass/Vol] 3.8 g/dL Normal 3.5-5.0 [facility] Comment on above: Performed By: #### T SH, LIPID, CMP #### [facility] [address] [place] [address] Dr. Mynor Yun Albumin/Globulin [Mass ratio] 0.9 {ratio} Normal [facility] Comment on above: Performed By: #### T SH, LIPID, CMP #### [facility] [address] [place] [address] Dr. Mynor Yun ALP [Catalytic activity/Vol] 76 U/L Normal 38-126 [facility] Comment on above: Performed By: #### T SH, LIPID, CMP #### [facility] [address] [place] [address] Dr. Mynor Yun ALT [Catalytic activity/Vol] 49 U/L Normal 21-72 [facility] Comment on above: Performed By: #### T SAMARIA, LIPID, CMP #### [facility] [address] [place] [address] Dr. Mynor Yun Anion gap [Moles/Vol] 11.2 mmol/L Normal Th [facility] Comment on above: Performed By: #### T SAMARIA, LIPID, CMP #### [facility] [address] [place] [address] Dr. Mynor Yun AST [Catalytic activity/Vol] 31 U/L Normal 17-59 [facility] Comment on above: Performed By: #### T SAMARIA LIPID, CMP #### [facility] [address] [place] [address] Dr. Mynor Yun Bilirubin [Mass/Vol] 0.5 mg/dL Normal 0.2-1.3 [facility] Comment on above: Performed By: #### T SAMARIA LIPID, CMP #### [facility] [address] [place] [address] Dr. Mynor Yun Calcium [Mass/Vol] 9.0 mg/dL Normal 8.4-10.2 [facility] Comment on above: Performed By: #### T SAMARIA LIPID, CMP #### [facility] [address] [place] [address] Dr. Mynor Yun Chloride [Moles/Vol] 104 mmol/L Normal 98-107 [facility] Comment on above: Performed By: #### T SAMARIA, LIPID, CMP #### [facility] [address] [place] [address] Dr. Mynor Yun CO2 [Moles/Vol] 30.6 mmol/L Critically high 22.0-30.0 [facility] Comment on above: Performed By: #### T SAMARIA, LIPID, CMP #### [facility] [address] [place] [address] Dr. Mynor Yun Creatinine [Mass/Vol] 0.95 mg/dL Normal 0.66-1.25 [facility] Comment on above: Performed By: #### T SAMARIA, LIPID, CMP #### [facility] [address] [address] [address] Mynor Yun EGFR-AF BRITISH >60 Normal >=60 [facility] Comment on above: Performed By: #### T SH, LIPID, CMP #### [facility] [address] [address] [address] Mynor Yun EGFR-NON AF BRITISH >60 Normal >=60 [facility] Comment on above: Performed By: #### T SH, LIPID, CMP #### [facility] [address] [address] [address] Mynor Yun Globulin (S) [Mass/Vol] 4.3 g/dL Normal [facility] Comment on above: Performed By: #### T SH, LIPID, CMP #### [facility] [address] [place] [address] Dr. Mynor Yun Glucose [Mass/Vol] 104 mg/dL Normal 74-106 [facility] Comment on above: Performed By: #### T SH, LIPID, CMP #### [facility] [address] [place] [address] Dr. Mynor Yun Potassium [Moles/Vol] 3.8 mmol/L Normal 3.4-5.0 [facility] Comment on above: Performed By: #### T SAMARIA, LIPID, CMP #### [facility] [address] [place] [address] Dr. Mynor Yun Protein [Mass/Vol] 8.1 g/dL Normal 6.1-8.2 [facility] Comment on above: Performed By: #### T SH, LIPID, CMP #### [facility] [address] [place] [address] Dr. Mynor Yun Sodium [Moles/Vol] 142 mmol/L Normal 137-145 [facility] Comment on above: Performed By: #### T SH, LIPID, CMP #### [facility] [address] [place] [address] Dr. Mynor Yun Urea nitrogen [Mass/Vol] 11.0 mg/dL Normal 9.0-20.0 [facility] Comment on above: Performed By: #### T SH, LIPID, CMP #### [facility] [address] [address] [address] Mynor Yun Urea nitrogen/Creatinine [Mass ratio] 11.6 mg/mg Normal [facility] Comment on above: Performed By: #### T SH, LIPID, CMP #### [facility] [address] [address] [address] Mynor Yun TSHon 11-11-2021 TSH 1.612 uIU/mL Normal 0.470-4.680 [facility] Comment on above: Performed By: #### T SH, LIPID, CMP #### [facility] [address] [address] [address] Mynor Yun TSH RANGE SEE BELOW Normal [facility] Comment on above: Result Comment: <0.3 4 UIU/ml HYPERTHYROID 0.34-5.60 UIU/ml EUTHYROID >5.60 UIU/ml HYPOTHYROID Performed By: #### T SH, LIPID, CMP #### [facility] [address] [address] [address] Mynor Yun Encounters Encounter Date Encounter Type Care Provider Facility Start: 07-21-2024 End: 07-21-2024 ambulatory Wilbert Buckner MD [facility]: [facility] Start: 06-30-2024 End: 06-30-2024 ambulatory Wilbert Buckner MD Facility: [facility] Start: 03-10-2024 End: 03-10-2024 ambulatory Wilbert Buckner MD Facility: [facility] Start: 02-25-2024 End: 02-25-2024 ambulatory Wilbert Buckner MD Facility: [facility] Start: 02-18-2024 End: 02-18-2024 ambulatory Wilbert Buckner MD Facility: [facility] Start: 01-23-2024 End: 01-26-2024 ambulatory ALEXIA SARMIENTO [facility] Start: 01-16-2024 End: 01-16-2024 ambulatory Alexia Sarmiento Facility:[facility] Start: 01-14-2024 End: 01-14-2024 ambulatory Alexia L Torsten Facility:[facility] Start: 01-09-2024 End: 01-09-2024 ambulatory Alexia L Torsten Facility:[facility] Start: 12-03-2023 End: 12-03-2023 ambulatory Wilbert Buckner MD Facility:[facility] Start: 11-05-2023 End: 11-05-2023 ambulatory Wilbert Buckner MD Facility:[facility] Start: 08-23-2023 End: 08-23-2023 ambulatory Alexia L Torsten Facility:[facility] Start: 07-26-2023 End: 07-26-2023 ambulatory Alexia L Torsten Facility:[facility] Start: 06-21-2023 End: 06-21-2023 ambulatory Alexia L Torsten [facility] [facility] Start: 05-22-2023 End: 05-22-2023 ambulatory Alexia L Torsten Facility:[facility] Start: 04-24-2023 End: 04-24-2023 ambulatory Alexia L Torsten Facility:[facility] Start: 03-19-2023 End: 03-19-2023 ambulatory Alexia L Torsten Facility:[facility] Start: 03-19-2023 End: 03-19-2023 Lab Drop off Alexia L Torsten [facility] Start: 03-19-2023 End: 03-19-2023 ambulatory Alexia L Torsten Facility:[facility] Start: 03-15-2023 ambulatory Alexia Torsten Facility: [facility] Start: 07-28-2022 End: 07-28-[address] LULU BLANK Facility:[facility] Start: 02-01-2022 End: 02-02-[address] LULU BLANK Facility:[facility] Start: 11-15-2021 Encounter for genera l adult medical examination without abnormal findings DR LULU BLANK [facility] Start: 11-11-2021 End: 11-12-[address] LULU [...] virus vacc ine, unspecified formulation Alexia Torsten [facility] 11-12-2020 SARS-CoV-2 (COVID-19 ) mRNA BNT-162b2 vax Alexia Torsten [facility] 10-22-2020 SARS-CoV-2 (COVID-19 ) mRNA [id number] vax Alexia Torsten [facility] 03-10-2019 pneumococcal polysaccharide vaccine, 23 valent Alexia Torsten [facility] Payers Date Payer Category Payer Unknown 2022 Unknown [id number] 2019 Unknown [id number] 2013 Medicare 1977 Unknown [id number] 2.16.84 0.1.008191.3.579.2.593 1977 Unknown [id number] 2.16.84 0.1.046559.3.579.2.593 1977 Unknown [id number] 2.16.84 0.1.704005.3.579.2.593 1977 Unknown [id number] 2.16.84 0.1.797986.3.579.2.593 1977 Unknown [id number] 2.16.8 40.1.586162.3.579.2.182 1977 Unknown [id number] 2.16.8 40.1.716829.3.579.2.182 1977 Unknown [id number] 2.16.8 40.1.472533.3.579.2. 1977 Unknown [id number] 2.16.8 40.1.549385.3.579.2. 1977 Unknown [id number] 2.16.8 40.1.070531.3.579.2. 1977 Unknown [id number] 2.16.8 40.1.594767.3.579.2. 1977 Unknown [id number] 2.16.8 40.1.969996.3.579.2. 1977 Unknown [id number] 2.16.8 40.1.791039.3.579.2. 1977 Unknown [id number] 2.16.8 40.1.316213.3.579.2 1977 Unknown [id number] 2.16.8 40.1.670575.3.579.2. 1977 Unknown [id number] 2.16.8 40.1.044411.3.579.2. 1977 Unknown [id number] 2.16.8 40.1.864329.3.579.2. 1977 Unknown [id number] 2.16.8 40.1.230528.3.579.2. 1977 Unknown [id number] 2.16. 840.1.401133.3.579.2. 1977 Unknown [id number] 2.16. 840.1.661826.3.579.2. 1977 Unknown [id number] 2.16. 840.1.594788.3.579.2. 1977 Unknown [id number] 2.16. 840.1.327482.3.579.2. 1977 Unknown [id number] 2.16. 840.1.606548.3.579.2. 1977 Unknown [id number] 2.16. 840.1.362098.3.579.2.196 1977 Unknown [id number] 2.16. 840.1.735074.3.579.2.196 1957 Medicare [id number] 1957 Unknown [id number] Social History Date Type Detail Facility Start: 03-19-2023 Tobacco smoking status Ex-smoker (fi nding) [facility] Tobacco smoking status Never [facility] Sex Assigned At Male [facility] Clinical Note 11-10-2021 Note Date & [...] authenticated by: KELLIE SMALLS Date: 2021-11-10 13:16 [facility] Evaluation + Plan note Note Date & Type Rust Evaluation + Plan note Future Appointments Appointment Date:04/23/2023 11:00:00 AM Scheduled Provider:Alexia Muhammad Location:[facility] Appointment Type: Open [facility] Hospital course Narrative Note Date & Type Note Facility Hospital course Narrative No data available for this section [facility] Hospital Discharge instructions Note Date & Type Note Facility Hospital Discharge instructions No data available for this section [facility] Progress note Note Date & Type Note Facility Progress note No data available for this section [facility] Summary Purpose Family History No Family [...] section and content) DATE CREATED AUTHOR 01/28/2022 [facility] DATE CREATED AUTHOR AUTHOR'S ORGANIZ ATION 08/10/2022 [facility] DATE CREATED AUTHOR AUTHOR'S ORGANIZ ATION [facility] DATE CREATED AUTHOR AUTHOR'S ORGANIZ ATION [facility]20[facility] DATE CREATED AUTHOR AUTHOR'S ORGANIZ ATION 07/29/2024 [facility] Patient Care team informatio n (unrecognized section and content) Personnel Name: Alexia Muhammad Address: Address: [address] [place] [id number] FOR RECORDS PERTAINING TO PATIENTS WHO ARE [...] BE BASED ON THE PRIMARY CLINICAL RECORDS. [facility]. provides no warranty or guarantee of the accuracy or completeness of information in this document.
--- NOTE | 2024-08-13 09:33 | P.CN_ITS ---
Consult Note: HPI Data of Consult Patient: known to practice within the last 3 years Consult date: 11/05/23 Requesting Physician: Liliane Garcia NP Primary Care Provider: EFFIE SARMIENTO Consult Narrative Reason for consult: Low back, left hip pain Narrative: 48yom who presents for evaluation. Worsening low back pain. lumbar xray reveals mild to moderate degenerative changes, left hip xray reveals OA, lumbar MRI consistent with multilevel degenerative changes. Continues in provider directed home exercise course >6 weeks, with minimal relief. Evaluated by NS who recommends bilateral L4-5 L5-S1 facet medial branch blocks working towards RFA for chronic axial back pain, he previously underwent bilateral L4-5 L5-S1 facet medial branch block #1 with 50% improvement, could not proceed with bilateral L4-5 L5-S1 facet medial branch block #2. Previous left L4-5 L5-S1 TFESI and Left SIJ injection providing 75% improvement greater than 3 months. Pain 5/10 burning stabbing and tingling pain to left hip and thigh with standing walking and activity. Stopped tramadol, gabapentin and flexeril as he did not find benefit. Continues to utilize celebrex with benefit. failed baclofen and restarted tizanidine with mild benefit per pt. recent left hip injection and left L4/5 l5/S1 TFESI providing >70% improvement. cc:: CC: Liliane Garcia NP Review of Systems ROS Status of ROS 10 or more systems reviewed and unremark able except as noted in history and below Musculoskeletal Reports: back pain and joint pain PFSH PFSH Medical History Osteoarthritis ?M19.90 - Unspecified osteoarthritis, unspecified site (ICD-10) KWAN on CPAP ?G47.33 - Obstructive sleep apnea (adult) (pediatric) (ICD-10) Sleep apnea ?G47.30 - Sleep apnea, unspecified (ICD-10) Meds Home Medications and Allergies Home Medications ?Medication ?Instructions ?Recorded ?Confirmed ?Type celecoxib 200 mg capsule (Celebrex) 200 mg PO BID 11/05/23 07/21/24 History cranberry 400 mg capsule 1,600 mg PO DAILY 11/05/23 07/21/24 History loratadine 10 mg tablet (Claritin) 10 mg PO DAILY 11/05/23 07/21/24 History ascorbic acid (vitamin C) 1,000 mg 1,000 mg PO DAILY 12/03/23 07/21/24 History tablet,extended release (C Complex) paroxetine HCl 10 mg tablet 10 mg PO DAILY 01/07/24 07/21/24 History tizanidine 4 mg tablet 4 mg PO DAILY 06/30/24 07/21/24 History Allergies Allergy/AdvReac Type Severity Reaction Status Date / Time No Known Drug Allergies Allergy Verified 07/21/24 09:25 Exam Constitutional Documenting provider has reviewed patient's vital signs: yes Common normals: no apparent distress, oriented x3, healthy appearing, alert and well nourished General appearance: cooperative HENMT Common normals: normocephalic, hearing grossly normal bilaterally and moist oral mucous membranes Head and scalp: normocephalic Eye Common normals: PERRL Pupil: PERRL Neck & C-Spine Common normals: full ROM General: normal visual inspection Chest Common normals: inspection of chest normal Respiratory Common normals: normal respiratory effort, no retractions and no use of accessory muscles Back & Pelvis Lumbar spine/lower back: normal to inspection, lumbar ROM normal and straight leg raise negative bilaterally Sacroiliac joints: SI joint(s) abnormal Other: left SIJ positive nancy(patricks), gaenslens, thigh thrust, compression test strength 5/5 in BLE Extremity Common normals: normal to inspection and full ROM Left lower extremity: hip joint Other: mild pain with internal and external log roll Neuro Common normals: oriented x3, CN's II-XII intact bilaterally, moves all extremities, no focal motor deficits, no sensory deficits noted and deep tendon reflexes 2+ bilaterally Sensorium/orientation: alert Motor exam: strength 5/5 throughout and no movement abnormalities noted Psych Common normals: mental status grossly normal, thought process normal, cooperative, affect normal, speech normal and activity/motor behavior normal Speech: normal speech Thought process: normal thought process Results Additional Findings Additional findings: If on a controlled substance or opioids, I have checked an [place]AR[place] report on this patient and there are no aberrancies noted in the prescribing history.??If on a controlled substance or opioid a drug screen was completed and reviewed within the last year, and if there has not been a drug screen completed we ordered one today to monitor higher risk, state monitored pain medication use. As part of providing excellent, safe, comprehensive care, the following was completed at our patient's visit: 1. A medication reconciliation and review to ensure accurate knowledge of current/active medications, including asking our patients to inform us about any [id number] medications or herbal remedies/nutritional supplements/alternative remedies. 2. A review to specifically ensure our patients have had annual screening for screening for depression, screening for tobacco use, and screening for unhealthy alcohol use. For concerning screenings had a discussion with the patient, provided patient education, and recommended follow-up with primary care provider when appropriate. If patient noted with a risk of falling, they received education on strength, gait, and balance training to prevent future risk of falling. Assessment and Plan Assessment and Plan (1) Sacroiliitis: (2) Lumbar stenosis with neurogenic claudication: (3) Lumbar spondylosis: (4) Osteoarthritis of left hip: Qualifiers: Osteoarthritis type: primary Qualified Code(s): M16.12 - Unilateral primary osteoarthritis, left hip (5) Myalgia: Plan left SIJ injection under fluoroscopy, previous injection provided >50% improvement for at least 3 months PT per pt request for chronic low back pain, left hip pain and sacroilitis continue current medications f/u after injection
== END 2024-08-13 09:09 | disposition home or self-care (01) ==
LOC: PM 09:09
PROVIDERS: PCP Nurse Practitioner; Visit Provider Nurse Practitioner
DX: M54.50 Low back pain, unspecified (principal); M46.1 Sacroiliitis, not elsewhere classified; M16.12 Unilateral primary osteoarthritis, left hip; M48.062 Spinal stenosis, lumbar region with neurogenic claudication; M47.816 Spondylosis without myelopathy or radiculopathy, lumbar region; M79.18 Myalgia, other site
CPT/HCPCS: G0463

== ENCOUNTER 2024-09-01 08:02 | Day surgery (SDC) | payer BC, SELFPAY ==
--- OUTSIDE RECORDS SUMMARY | 2024-09-01 08:22 | XMS_ITS | CCD ---
Author Organization [facility] CliniSymt Care Team Providers Care Copyright Manager Name Role Phone MAZIN CANO Admitting Unavailable [...] Dates Sig (Normalized) Sig (Original) Cranberry preparation (2 sources) Non-Standardized Food Allergenic Extract, Non-Standardized Plant Allergenic Extract Start: 03-19-2023 take 1 tablet by mouth once daily cranberry oral capsule See Instructions, Refill(s) 0, 1 tablet daily Start Date: 03/19/23 Status: Ordered Fish Oils (2 sources) Start: 03-19-2023 take 1 capsule by mouth once daily Fish Oil 500 mg oral capsule 500 mg = 1 cap(s), Oral, Daily, Refills(s) 0 Start Date: 03/19/23 Status: Ordered loratadine 10 mg oral capsule (2 sources) Start: 03-19-2023 take 1 capsule by mouth [...] day(s), # 21 tab(s), Refills(s) 0, Pharmacy: [facility]/pharmacy #[id number], 176.5, cm, 03/19/23 13:15:00 EDT, Height/Length Dosing Start Date: 03/19/23 Stop Date: 03/25/23 Status: Ordered PARoxetine hydrochloride 10 mg oral tablet (2 sources) Serotonin Reuptake Inhibitor Start: 07-26-2023 take 1 tablet by mouth once daily paroxetine 10 mg Tab 10 mg = 1 tab(s), Oral, Daily, # 90 tab(s), Refills(s) 3, Pharmacy: [facility]/pharmacy #[id number], 176.5, cm, 07/26/23 9:32:00 EST, Height/Length Dosing, 187.2, kg, 07/26/23 9:32:00 EST, Weight Dosing Start Date: 07/26/23 Status: Ordered Start: 03-19-2023 take 1 tablet by rian th once daily paroxetine 10 mg Tab 10 mg = 1 tab(s), Oral, Daily, Refills(s) 0 Start Date: 03/19/23 Status: Ordered phentermine hydrochloride 37.5 mg oral tablet (2 sources) Sympathomimetic Amine Anorectic Start: 07-26-2023 take 1 tablet by mouth once daily phentermine 37.5 mg Tab 37.5 mg = 1 tab(s), Oral, Daily, # 30 tab(s), Refills(s) 0, Pharmacy: [facility], 176.5, cm, 07/26/23 9:32:00 EST, Height/Length Dosing, 187.2, kg, 07/26/23 9:32:00 EST, Weight Dosing Start Date: 07/26/23 Status: Ordered Start: 03-19-2023 End: 04-18-2023 take 1 tablet by mouth once daily phentermine 37.5 mg Tab 37.5 mg = 1 tab(s), Oral, Daily, X 30 day(s), # 30 tab(s), Refills(s) 0, Pharmacy: [facility]/pharmacy #[id number], 176.5, cm, 03/19/23 13:15:00 EDT, Height/Length Dosing Start Date: 03/19/23 Stop Date: 04/18/23 Status: Ordered Problems Active Problems Problem Classification Problem Date Documented Da te Episodic/Chronic Disorders of lipid metabolism (1 source) Mixed hyperlipidemia; Translations: [MIXED HYPERLIPIDEMIA] Onset: 07-31-2022 Chronic Nutritional deficiencies (1 source) Vitamin D deficiency, unspecified; Translations: [VITAMIN D DEFICIENCY UNSPECIFIED] Onset: 07-31-2022 Chronic Other endocrine disorders (1 source) Male hypogonadism 08-23-2023 Chronic Other nervous system disorders (1 source) [...] Chronic Other nutritional; endocrine; and metabolic disorders (2 sources) Morbid obesity 03-19-2023 Chronic Other upper respiratory [...] Spondylosis; intervertebral disc disorders; other back problems (3 sources) Sciatica; Translations: [Lumbago with sciatica, left side] Onset: 01-23-2024 03-19-2023 Episodic Unclassified (1 source) CONTACT W/AND (SUSP) EXPOS COVID-19; Translations: [CONTACT W/AND (SUSP) EXPOS COVID-19] Onset: 07-31-2022 Unclassified (1 source) COUGH, UNSPECIFIED; Translations: [COUGH, UNSPECIFIED] Onset: 02-03-2022 Unclassified (3 sources) Patient encounter status 03-19-2023 Past or Other [...] LH INIT CLOS FX] Onset: 11-11-2021 Episodic Malaise and fatigue (1 source) Fatigue 08-23-2023 Episodic Other nervous system disorders (1 source) Paresthesia of foot 07-26-2023 Episodic Other upper respiratory disease (1 source) Nasal congestion; Translations: [NASAL CONGESTION] Onset: 02-03-2022 Episodic Superficial injury; contusion (6 sources) Contusion of left little finger without damage to nail, initial encounter; Translations: [Contusion of left ring finger without damage to nail, initial encounter] Onset: 11-10-2021 Episodic Results Test Name Value Interpretation Reference Range Facility Operative Reporton Operative Report [id number]#1. 00TIFF Normal [facility] Consultation Noteon 02-20-20 Consultation Note [id number]#1 .00TIFF Normal [facility] Consultation Noteon 02-06-20 Consultation Note [id number]#1 .00TIFF Normal [facility] RAD - MRI Reporton RAD - MRI Report [id number]#1 .00TIFF Normal [facility] MRI LUMBAR SPINE WO CONTRAST on 01-23-2024 [...] compromise. L2-L3: No disc bulge or protrusion. Dutu-iy-hecyunfq facet arthropathy. No significant central canal stenosis. [...] Carson Linares DO 01/24/24 Final result Normal [facility] MRI THORACIC SPINE WO CONTRA [...] Carson Linares DO 01/24/24 Final result Normal [facility] Family Medicine Office/Clini c Noteon [...] open MRI. MRI order was sent to [facility] in [place]. Pt states the burning sensation from sitting [...] not able to get MRI done at [facility]. is waiting for PA for MRI in [place]. they have an open MRI machine. needs [...] days., # 18 tab(s), Refills(s) 0, Pharmacy: [id number], 187.5, cm, 01/16/24 13:46:00 EDT, Height/Length Dosing, 183, kg, 01/16/24 13:4... 3. Non-smoker (Z78.9: Other specified health status) continue not smoking Ordered: predniSONE, = 1 -, Oral, As Directed, Take 3 tabs by mouth daily x3 days, then 2 tabs daily x3 days, then 1 tab daily x3 days., # 18 tab(s), Refills(s) 0, Pharmacy: [facility]/pharmacy #[id number], 187.5, cm, 01/16/24 13:46:00 EDT, Height/Length [...] Recorded pneumococcal 23-valent vaccine 03/10/2019 Recorded Normal [facility] Comment on above: Result Comment: Elec tronically [...] 1 tab daily x3 days. Pickup at [facility]/pharmacy #[id number] Unchanged cranberry (cranberry oral capsule) See [...] Pain Non-smoker BMI 60.0-69.9, adult Pharmacy Information [facility]/pharmacy #[id number]: [address], [place] [phone] Allergies No Known Allergies Problems Ongoing - [...] you for choosing us for your care. [facility] Physician Orderon 01-14-2024 Physician Order [id number]#1 .00TIFF [facility] Provider Letteron 01-14-2024 Provider Letter January 14, 2024 RAEKSH PIÑA [address] [place] [id number] : 1975 To Whom It May Concern, Please excuse above patient from work. Date of Illness: From: 01/07/2024 To: 01/16/2024 May Return to Work On: 01/17/2024 Restrictions: None Comments: Sincerely, Family Medicine [address] [address] [facility] Ambulatory Visit Summaryon 0 01-09-2024 Ambulatory [...] 11:20 AM EDT With: Alexia Muhammad Where: [facility] 01-09-2024 Consent [id number]#1 .00TIFF [facility] ED Note-Physicianon 01-09-20 ED Note-Physician [id number]# 1.00TIFF [facility] Family Medicine Office/Clini c Noteon 01-09-2024 Family Medicine Office/Clinic Note HPI Staff Rakesh is a 48 year old male presenting for ER follow up ER followup: Hospital: [facility] Visit date: 01/07/24 Symptoms the patient presented [...] Pain, # 60 tab(s), Refills(s) 0, Pharmacy: [facility]/pharmacy #[id number], 187.5, cm, 01/09/24 10:51:00 EDT, [...] Pain, # 60 tab(s), Refills(s) 0, Pharmacy: [facility]/pharmacy #[id number], 187.5, cm, 01/09/24 10:51:00 EDT, Height/Length Dosing, 187.5, kg, 08/23/23 9:30:00 EST, Weight Dosing triamcinolone, 60 mg = 1.5 mL, Injection, IntraMuscular, Once, Stop date 01/09/24 11:20:00 EDT, Routine, Start date 01/09/24 11:20:00 EDT, 01/09/24 11:20:00 EDT Orders: phentermine, 37.5 mg = 1 tab(s), Oral, Daily, # 30 tab(s), Refills(s) 0, Pharmacy: [facility], 176.5, cm, 07/26/23 9:32:00 EST, Height/Length [...] Allergies Social Hi (more content not included)... [facility] Comment on above: Result Comment: Elec tronically Signed By: Alexia Muhammad\.br\Date and Time Signed: 01/09/24 11:25 EDT Physician Orderon 01-09-2024 Physician Order [id number]#1 .00TIFF [facility] Provider Letteron 01-09-2024 Provider Letter January 09, [address] [phone] : 1975 To Whom It May Concern, Please excuse above patient from work due to medical Date of Illness: From: _01-08-24 To: _01-14-24 May Return to Work On:01-15-24 Restrictions: _ Comments: _ Sincerely, Family Medicine [address] [address] Normal [facility] RAD - CT Reporton 01-09-2024 RAD - CT Report [id number]#1 .00TIFF Normal [facility] ED Note-Physicianon 01-08-20 ED Note-Physician [id number]#1 .00TIFF Normal [facility] RAD - CT Reporton 01-08-2024 RAD - CT Report [id number]#1 .00TIFF Normal [facility] Operative Reporton Operative Report [id number]#1 .00TIFF [facility] Consultation Noteon 11-07-19 Consultation Note [id number]#1 .00TIFF [facility] PT - Progress Noteson 2023 PT - Progress Notes [id number]#1 .00TIFF [facility] RAD - MISCon 10-29-2023 RAD - MISC [id number]#1 .00TIFF [facility] Retail - Clinical Noteon Retail - Clinical Note [id number]#1 .00TIFF [facility] Plan of Care - PT/OT/Speecho n 09-06-2023 Plan of Care - PT/OT/Speech [id number]#1 .00TIFF [facility] Physician Referralon 023 Physician Referral [id number]# 1.00TIFF [facility] Testost Totalon 08-25-2023 Testosterone [Mass/Vol] 321 ng/dL Invalid Interpretation Code [id number] [facility] Comment on above: Result Comment: Adul t male reference interval is based on a population of healthy nonobese males (BMI <30) between 19 and 39 years old. Iron et.al. JCEM 2017,102;6522-3527. PMID: 76757810. Performed at: [facility] [id number] PhD Domenic Rider Performed By: #### 2 [id number] ####[facility] [address] [place] [address] Reminderson 08-24-2023 Reminders - From: Alexia Muhammad To: B - Clinical; Sent: 08/24/2023 14:20:02 EST Show [...] left detailed message for patient below Normal [facility] CHEMISTRYOrdered By: SYSTEM SYSTEM on 08-23-2023 Cobalamin (Vitamin B12) [Mass/Vol] 301 pg/mL Normal 50 - 1500 pg/mL Remisol Chem Vitamin D 25 Hydroxy 57.7 ng/mL Normal 30.0 - 100.0 ng/mL Remisol Chem Family Medicine Office/Clini c Noteon 08-23-2023 Family [...] thing was in slow motion. 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 He would [...] he would like referral to PT at [facility] for bakc/leg pain. gabapentin and muscles relaxers did not help. 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 all questions answered. RTC as needed Ordered: cyclobenzaprine, 10 mg = 1 tab(s), Oral, Bedtime, PRN for spasm, # 30 tab(s), Refills(s) 0, Pharmacy: [facility], 176.5, cm, 07/26/23 9:32:00 EST, Height/Length Dosing, 187.2, kg, 07/26/23 9:32:00 EST, Weight Dosing gabapentin, 300 mg = 1 cap(s), Oral, Daily, # 30 cap(s), Refills(s) 0, Pharmacy: [facility], 176.5, cm, 07/26/23 9:32:00 EST, Height/Length Dosing, 187.2, kg, 07/26/23 9:32:00 EST, Weight Dosing 2. Fatigue (R53.83: Other fatigue) labs drawn today Ordered: Lab Specimen Collect [id number] Testosterone Level Total 3. Hypogonadism male (E29.1: Testicular hypofunction) testosterone ordered Ordered: Lab Specimen Collect [id number] Testosterone Level Total 4. BMI 60.0-69.9, adult (Z68.44: Body mass index [BMI] 60.0-69.9, adult) bmi education complete Ordered: cyclobenzaprine, 10 mg = 1 tab(s), Oral, Bedtime, PRN for spasm, # 30 tab(s), Refills(s) 0, Pharmacy: [facility], 176.5, cm, 07/26/23 9:32:00 EST, Height/Length Dosing, 187.2, kg, 07/26/23 9:32:00 EST, Weight Dosing gabapentin, 300 mg = 1 cap(s), Oral, Daily, # 30 cap(s), Refills(s) 0, Pharmacy: [facility], 176.5, cm, 07/26/23 9:32:00 EST, Height/Length Dosing, 187.2, kg, 07/26/23 9:32:00 EST, Weight Dosing Testosterone Level Total Vitamin B12 Level Vitamin D 25 Hydroxy Follow-up No qualifying data available Patient Education Obesity, Adult, Tgel-ez-Irfo Problem List/Past Medical History Ongoing Encounter for [...] included)... Normal [facility] Comment on above: Result Comment: Elec tronically [...] food choices, such as grocery stores and [employer]. What are the signs or symptoms? The [...] How much exercise you get. ? Take sonp-zlm-bopvvsj and prescription medicines only as told by [...] included)... Normal [facility] Vit B12on 08-23-2023 Cobalamin (Vitamin B12) [Mass/Vol] 301 pg/mL Normal 50-1500 [facility] Comment on above: Performed By: #### 2 [id number] #### [facility] Laboratory [address] [place] [address] Vitamin D 25 Hydroxyon 08-23 Vitamin D 25 Hydroxy 57.7 ng/mL Normal 30.0-100.0 [facility] Comment on above: Performed By: #### 2 [id number] ####[facility] [address] [place] [address] Ambulatory Visit Summaryon 1 09-25-2022 Ambulatory Visit [...] 9:20 AM EST With: Alexia Muhammad Where: [facility] Family Medicine Office/Clini c Noteon 07-26-2023 [...] spasm, # 30 tab(s), Refills(s) 0, Pharmacy: [facility], 176.5, cm, 07/26/23 9:32:00 EST, Height/Length Dosing, 187.2, kg, 07/26/23 9:32:00 EST, Weight Dosing gabapentin, 300 mg = 1 cap(s), Oral, Daily, # 30 cap(s), Refills(s) 0, Pharmacy: [facility], 176.5, cm, 07/26/23 9:32:00 EST, Height/Length Dosing, 187.2, kg, 07/26/23 9:32:00 EST, Weight Dosing methylPREDNISolone, = 1 packet(s), Oral, As Directed, as directed on package labeling, X 6 day(s), # 21 tab(s), Refills(s) 0, Pharmacy: [facility], 176.5, cm, 07/26/23 9:32:00 EST, Height/Length [...] spasm, # 30 tab(s), Refills(s) 0, Pharmacy: [facility], 176.5, cm, 07/26/23 9:32:00 EST, Height/Length Dosing, 187.2, kg, 07/26/23 9:32:00 EST, Weight Dosing gabapentin, 300 mg = 1 cap(s), Oral, Daily, # 30 cap(s), Refills(s) 0, Pharmacy: [facility], 176.5, cm, 07/26/23 9:32:00 EST, Height/Length Dosing, 187.2, kg, 07/26/23 9:32:00 EST, Weight Dosing methylPREDNISolone, = 1 packet(s), Oral, As Directed, as directed on package labeling, X 6 day(s), # 21 tab(s), Refills(s) 0, Pharmacy: [facility], 176.5, cm, 07/26/23 9:32:00 EST, Height/Length Dosing, 187.2, kg, 07/26/23 9:32:00 EST, Weight Dosing 3. Numbness and tingling of foot (R20.0: Anesthesia of skin) discussed ENG results Ordered: cyclobenzaprine, 10 mg = 1 tab(s), Oral, Bedtime, PRN for spasm, # 30 tab(s), Refills(s) 0, Pharmacy: [facility], 176.5, cm, 07/26/23 9:32:00 EST, Height/Length Dosing, 187.2, kg, 07/26/23 9:32:00 EST, Weight Dosing gabapentin, 300 mg = 1 cap(s), Oral, Daily, # 30 cap(s), Refills(s) 0, Pharmacy: [facility], 176.5, cm, 07/26/23 9:32:00 EST, Height/Length Dosing, 187.2, kg, 07/26/23 9:32:00 EST, Weight Dosing methylPREDNISolone, = 1 packet(s), Oral, As Directed, as directed on package labeling, X 6 day(s), # 21 tab(s), Refills(s) 0, Pharmacy: [facility], 176.5, cm, 07/26/23 9:32:00 EST, Height/Length Dosing, 187.2, kg, 07/26/23 9:32:00 EST, Weight Dosing 4. Class 3 obesity (E66.01: Morbid (severe) obesity due to excess calories) pt continues with diet Ordered: cyclobenzaprine, 10 mg = 1 tab(s), Oral, Bedtime, PRN for spasm, # 30 tab(s), Refills(s) 0, Pharmacy: [facility], 176.5, cm, 07/26/23 9:32:00 EST, Height/Length Dosing, 187.2, kg, 07/26/23 9:32:00 EST, Weight Dosing gabapentin, 300 mg = 1 cap(s), Oral, Daily, # 30 cap(s), Refills(s) 0, Pharmacy: [facility], 176.5, cm, 07/26/23 9:32:00 EST, Height/Length Dosing, 187.2, kg, 07/26/23 9:32:00 EST, Weight Dosing methylPREDNISolone, = 1 packet(s), Oral, As Directed, as directed on package labeling, X 6 day(s), # 21 tab(s), Refills(s) 0, Pharmacy: [facility], (more content not included)... [facility] Comment on above: Result Comment: Elec tronically Signed By: Alexia Muhammad\.jessica\Date and Time Signed: 07/26/23 09:54 EST EMG Electromyographyon 07-10 EMG Electromyography [id number]#1 .00TIFF [facility] EMG Electromyography [id number]#1. 00TIFF [facility] Physician Referralon 023 Physician Referral [id number]# 1.00TIFF [facility] Ambulatory Visit Summaryon 1 Ambulatory Visit [...] 9:20 AM EST With: Alexia Muhammad Where: [facility] Family Medicine Office/Clini c Noteon 06-21-2023 [...] day(s), # 30 tab(s), Refills(s) 1, Pharmacy: [facility], 176.5, cm, 06/21/23 9:41:00 EDT, Height/Length Dosing, 186.7, kg, 06/21/23 9:41:00 EDT, Weight Dosing meloxicam, 15 mg = 1 tab(s), Oral, Daily, X 30 day(s), # 30 tab(s), Refills(s) 0, Pharmacy: [facility], 176.5, cm, 06/21/23 9:41:00 EDT, Height/Length Dosing, 186.7, kg, 06/21/23 9:41:00 EDT, Weight Dosing meloxicam, 15 mg = 1 tab(s), Oral, Daily, # 30 tab(s), Refills(s) 1, Pharmacy: [facility], 176.5, cm, 05/22/23 9:51:00 EDT, Height/Length Dosing, 190.2, kg, 05/22/23 9:51:00 EDT, Weight Dosing 2. Left sciatic nerve pain (M54.32: Sciatica, left side) pt continues to have left sciatic nerve pain but it is improved Ordered: meloxicam, 15 mg = 1 tab(s), Oral, Daily, X 30 day(s), # 30 tab(s), Refills(s) 1, Pharmacy: [facility], 176.5, cm, 06/21/23 9:41:00 EDT, Height/Length Dosing, 186.7, kg, 06/21/23 9:41:00 EDT, Weight Dosing meloxicam, 15 mg = 1 tab(s), Oral, Daily, X 30 day(s), # 30 tab(s), Refills(s) 0, Pharmacy: [facility], 176.5, cm, 06/21/23 9:41:00 EDT, Height/Length Dosing, 186.7, kg, 06/21/23 9:41:00 EDT, Weight Dosing meloxicam, 15 mg = 1 tab(s), Oral, Daily, # 30 tab(s), Refills(s) 1, Pharmacy: [facility], 176.5, cm, 05/22/23 9:51:00 EDT, Height/Length Dosing, 190.2, kg, 05/22/23 9:51:00 EDT, Weight Dosing phentermine, 37.5 mg = 1 tab(s), Oral, Daily, X 30 day(s), # 30 tab(s), Refills(s) 0, Pharmacy: [facility], 176.5, cm, 05/22/23 9:51:00 EDT, Height/Length Dosing, 190.2, kg, 05/22/23 9:51:00 EDT, Weight Dosing [facility] External Ambulatory Referral 3. Lower extremity numbness (R20.0: Anesthesia of skin) EMG order sent to [facility] in [place] Ordered: [facility] External Ambulatory Referral 4. Morbid obesity due to excess calories (E66.01: Morbid (severe) obesity due to excess calories) BMI education complete Ordered: meloxicam, 15 mg = 1 tab(s), Oral, Daily, X 30 day(s), # 30 tab(s), Refills(s) 1, Pharmacy: [facility], 176.5, cm, 06/21/23 9:41:00 EDT, Height/Length Dosing, 186.7, kg, 06/21/23 9:41:00 EDT, Weight Dosing meloxicam, 15 mg = 1 tab(s), Oral, Daily, X 30 day(s), # 30 tab(s), Refills(s) 0, Pharmacy: [facility], 176.5, cm, 06/21/23 9:41:00 EDT, Height/Length Dosing, 186.7, kg, 06/21/23 9:41:00 EDT, Weight Dosing meloxicam, 15 mg = 1 tab(s), Oral, Daily, # 30 tab(s), Refills(s) 1, Pharmacy: [facility], 176.5, cm, 05/22/23 9:51:00 EDT, Height/Length Dosing, 190.2, kg, 05/22/23 9:51:00 EDT, Weight Dosing phentermine, 37.5 mg = 1 tab(s), Oral, Daily, X 30 day(s), # 30 tab(s), Refills(s) 0, Pharmacy: [facility], 176.5, cm, 05/22/23 9:51:00 EDT, Height/Length Dosing, 190.2, kg, 05/22/23 9:51:00 EDT, Weight Dosing 5. BMI 50.0-59.9, adult (Z68.43: Body mass index [BMI] 50.0-59.9, adult) BMI education complete 6. Non-smoker (Z78.9: Other specified health status) continue not smoking Ordered: meloxicam, 15 mg = 1 tab(s), Oral, Daily, X 30 day(s), # 30 tab(s), Refills(s) 1, Pharmacy: [facility], 176.5, cm, 06/21/23 9:41:00 EDT, Height/Length Dosing, 186.7, kg, 06/21/23 9:41:00 EDT, Weight Dosing meloxicam, 15 mg = 1 tab(s), Or (more content not included)... [facility] Comment on above: Result Comment: Elec [...] 9:20 AM EDT With: Alexia Muhammad Where: [facility] Ambulatory Visit Summary RAKESH PIÑA :1975 [...] 9:20 AM EDT With: Alexia Muhammad Where: [facility] [place] Normal [facility] Office/Clini c Noteon 05-22-2023 Family Medicine Office/Clinic [...] in his legs at night. 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 all questions answered. RTC 4 weeks Ordered: meloxicam, 15 mg = 1 tab(s), Oral, Daily, # 30 tab(s), Refills(s) 1, Pharmacy: [facility], 176.5, cm, 05/22/23 9:51:00 EDT, Height/Length Dosing, 190.2, kg, 05/22/23 9:51:00 EDT, Weight Dosing 2. Left sciatic nerve pain (M54.32: Sciatica, left side) will order antiinflammatory. steroid did not give him any relief Ordered: meloxicam, 15 mg = 1 tab(s), Oral, Daily, # 30 tab(s), Refills(s) 1, Pharmacy: [facility], 176.5, cm, 05/22/23 9:51:00 EDT, Height/Length Dosing, 190.2, kg, 05/22/23 9:51:00 EDT, Weight Dosing phentermine, 37.5 mg = 1 tab(s), Oral, Daily, X 30 day(s), # 30 tab(s), Refills(s) 0 phentermine, 37.5 mg = 1 tab(s), Oral, Daily, X 30 day(s), # 30 tab(s), Refills(s) 0, Pharmacy: [facility], 176.5, cm, 05/22/23 9:51:00 EDT, Height/Length Dosing, 190.2, kg, 05/22/23 9:51:00 EDT, Weight Dosing 3. BMI 60.0-69.9, adult (Z68.44: Body mass index [BMI] 60.0-69.9, adult) BMI education complete Ordered: meloxicam, 15 mg = 1 tab(s), Oral, Daily, # 30 tab(s), Refills(s) 1, Pharmacy: [facility], 176.5, cm, 05/22/23 9:51:00 EDT, Height/Length Dosing, 190.2, kg, 05/22/23 9:51:00 EDT, Weight Dosing 4. Morbid obesity due to excess calories (E66.01: Morbid (severe) obesity due to excess calories) see above Ordered: meloxicam, 15 mg = 1 tab(s), Oral, Daily, # 30 tab(s), Refills(s) 1, Pharmacy: [facility], 176.5, cm, 05/22/23 9:51:00 EDT, Height/Length Dosing, 190.2, kg, 05/22/23 9:51:00 EDT, Weight Dosing phentermine, 37.5 mg = 1 tab(s), Oral, Daily, X 30 day(s), # 30 tab(s), Refills(s) 0 phentermine, 37.5 mg = 1 tab(s), Oral, Daily, X 30 day(s), # 30 tab(s), Refills(s) 0, Pharmacy: [facility], 176.5, cm, 05/22/23 9:51:00 EDT, Height/Length Dosing, 190.2, kg, 05/22/23 9:51:00 EDT, Weight Dosing 5. Non-smoker (Z78.9: Other specified health status) continue not smoking Ordered: meloxicam, 15 mg = 1 tab(s), Oral, Daily, # 30 tab(s), Refills(s) 1, Pharmacy: [facility], 176.5, cm, 05/22/23 9:51:00 EDT, Height/Length Dosing, 190.2, kg, 05/22/23 9:51:00 EDT, Weight Dosing phentermine, 37.5 mg = 1 tab(s), Oral, Daily, X 30 day(s), # 30 tab(s), Refills(s) 0 phentermine, 37.5 mg = 1 tab(s), Oral, Daily, X 30 day(s), # 30 tab(s), Refills(s) 0, Pharmacy: [facility], 176.5, cm, 05/22/23 9:51:00 EDT, Height/Length [...] Daily Allerg (more content not included)... Normal [facility] Comment on above: Result Comment: Elec tronically Signed By: Alexia Muhammad\.br\Date and Time Signed: 05/22/23 10:34 EDT [place] 04-26-2023 Consent [id number] .00CD:127 Normal [facility] Family Medicine Office/Clini c Noteon 04-24-2023 Family [...] today. Normal [facility] Comment on above: Result Comment: Elec tronically [...] 11:00 AM EDT With: Alexia Muhammad Where: [facility] Shanique Normal [facility] Auto Diffon 03-19-2023 Basophils/100 WBC (Bld) 0.3 % Normal 0.0-2.0 [facility] Comment on above: Order Comment: Order Added by Discern Expert. Performed By: #### 2 624138, 7913205, 2395867, 9084102, [id number] ####[facility] [address] [place] [address] Basophils/Leukocytes Auto (Bld) [Pure # fraction] 0.0 E9/L Normal 0.0-0.2 [facility] Comment on above: Order Comment: Order Added by Discern Expert. Performed By: #### 2 813664, 9973208, 9200504, 1562527, [id number] ####[address] [place] [address] Eosinophils/100 WBC (Bld) 2.1 % Normal 0.0-8.0 [facility] Comment on above: Order Comment: Order Added by Discern Expert. Performed By: #### 2 019696, 4996439, 9171418, 4702290, [id number] ####[address] [place] [address] Eosinophils/Leukocytes Auto (Bld) [Pure # fraction] 0.2 E9/L Normal 0.0-0.5 [facility] Comment on above: Order Comment: Order Added by Nellie Expert. Performed By: #### 2 663723, 7747643, 9972828, 8896263, [id number] ####[address] [address] Lymphocytes/100 WBC (Bld) 20.5 % Normal 14.0-50.0 [facility] Comment on above: Order Comment: Order Added by Nellie Expert. Performed By: #### 2 408764, 9240652, 8663006, 7974213, 26328468 ####[address] [address] Lymphocytes/Leukocytes Auto (Bld) [Pure # fraction] 1.6 E9/L Normal 1.0-4.0 [facility] Comment on above: Order Comment: Order Added by Nellie Expert. Performed By: #### 2 630327, 8269092, 0858610, 4519874, 09718812 ####[address] [address] Monocytes/100 WBC (Bld) 8.7 % Normal 4.0-14.0 [facility] Comment on above: Order Comment: Order Added by Nellie Expert. Performed By: #### 2 045251, 1183372, 7334557, 4718273, 54520881 ####[address] [place] [address] Monocytes/Leukocytes Auto (Bld) [Pure # fraction] 0.7 E9/L Normal 0.2-1.0 [facility] Comment on above: Order Comment: Order Added by Discern Expert. Performed By: #### 2 249445, 6200661, 8579068, 9730734, 98789012 ####[address] [address] Neutrophils/100 WBC (Bld) 68.4 % Normal 36.0-75.0 [facility] Comment on above: Order Comment: Order Added by Discern Expert. Performed By: #### 2 540689, 7769091, 7489773, 2535475, 36252810 ####[address] [address] Neutrophils/Leukocytes Auto (Bld) [Pure # fraction] 5.3 E9/L Normal 2.0-7.5 [facility] Comment on above: Order Comment: Order Added by Discern Expert. Performed By: #### 2 218360, 5608418, 4048677, 9737687, 38729529 ####[address] [address] CBC w/ Auto Diffon 3 Erythrocyte distribution width (RBC) [Ratio] 16.3 % High 10.9-14.2 [facility] Comment on above: Performed By: #### 2 819135, 1394252, 9432915, 9984415, 09943359 ####[address] [address] Hematocrit (Bld) [Volume fraction] 43.7 % Normal 37.7-49.0 [facility] Comment on above: Performed By: #### 2 030150, 0889220, 9798569, 0038080, 43470232 ####[address] [place] [address] Hemoglobin (Bld) [Mass/Vol] 14.4 g/dL Normal 13.5-17.5 [facility] Comment on above: Performed By: #### 2 911345, 6420868, 7528728, 3728196, 66576020 ####[address] [address] MCH (RBC) [Entitic mass] 27.9 pg Normal 27.0-34.0 [facility] Comment on above: Performed By: #### 2 371380, 1571579, 3755957, 1381859, 85672671 ####[address] [address] MCHC (RBC) [Mass/Vol] 33.0 g/dL Normal 31.4-36.0 [facility] Comment on above: Performed By: #### 2 718543, 1162521, 6938077, 0469098, 72295300 ####[address] MCV (RBC) [Entitic vol] 84.8 fL Normal 80.0-100.0 [facility] Comment on above: Performed By: #### 2 479490, 8007505, 7224125, 2812648, 90000667 ####[address] [address] Platelet mean volume (Bld) [Entitic vol] 7.7 fL Normal 6.4-10.8 [facility] Comment on above: Performed By: #### 2 654547, 9238526, 9845730, 3730803, 24975650 ####[address] [address] Platelets (Bld) [#/Vol] 278.0 E9/L Normal 150.0-500.0 [facility] Comment on above: Performed By: #### 2 980887, 2390654, 3938584, 9310180, 11022354 ####[address] [address] RBC (Bld) [#/Vol] 5.2 E12/L Normal 4.3-5.9 [facility] Comment on above: Performed By: #### 2 201749, 9489119, 0777885, 5000820, 61712205 ####[facility] [address] [place] [address] WBC corrected for nucl RBC Auto (Bld) [#/Vol] 7.7 E9/L Normal 4.0-11.0 [facility] Comment on above: Performed By: #### 2 951621, 8765725, 5417007, 0600641, 72772288 ####[facility] [address] [place] [address] CHEMISTRYOrdered By: SYSTEM SYSTEM on 03-19-2023 Cholesterol [...] day(s), # 21 tab(s), Refills(s) 0, Pharmacy: [facility]/pharmacy #[id number], 176.5, cm, 03/19/23 13:15:00 EDT, Height/Length Dosing phentermine, 37.5 mg = 1 tab(s), Oral, Daily, # 30 tab(s), Refills(s) 0, Pharmacy: [facility]/pharmacy #[id number], 176.5, cm, 03/19/23 13:15:00 EDT, [...] day(s), # 21 tab(s), Refills(s) 0, Pharmacy: [facility]/pharmacy #[id number], 176.5, cm, 03/19/23 13:15:00 EDT, Height/Length Dosing phentermine, 37.5 mg = 1 tab(s), Oral, Daily, # 30 tab(s), Refills(s) 0, Pharmacy: [facility]/pharmacy #6177, 176.5, cm, 03/19/23 13:15:00 EDT, Height/Length Dosing CBC w/ Auto Diff Cologuard Screening Test Lipid Panel PSA Screen, Total Thyroid Stimulating Hormone 3. Non-smoker (Z78.9: Other specified health status) continue not smoking Ordered: methylPREDNISolone, = 1 packet(s), Oral, As Directed, as directed on package labeling, X 6 day(s), # 21 tab(s), Refills(s) 0, Pharmacy: [facility]/pharmacy #6177, 176.5, cm, 03/19/23 13:15:00 EDT, Height/Length Dosing phentermine, 37.5 mg = 1 tab(s), Oral, Daily, # 30 tab(s), Refills(s) 0, Pharmacy: [facility]/pharmacy #6177, 176.5, cm, 03/19/23 13:15:00 EDT, Height/Length Dosing CBC w/ Auto Diff Cologuard Screening Test Lipid Panel PSA Screen, Total Thyroid Stimulating Hormone 4. Left sciatic nerve pain (M54.32: Sciatica, left side) medrol dose pack sent Ordered: methylPREDNISolone, = 1 packet(s), Oral, As Directed, as directed on package labeling, X 6 day(s), # 21 tab(s), Refills(s) 0, Pharmacy: [facility]/pharmacy #6177, 176.5, cm, 03/19/23 13:15:00 EDT, Height/Length Dosing phentermine, 37.5 mg = 1 tab(s), Oral, Daily, # 30 tab(s), Refills(s) 0, Pharmacy: [facility]/pharmacy #6177, 176.5, cm, 03/19/23 13:15:00 EDT, Height/Length Dosing Colon cancer screening (Z12.11: (more content not included)... Normal [facility] Comment on above: Result Comment: Elec tronically Signed By: Alexia Muhammad\.br\Date and Time Signed: 03/19/23 14:00 EDT Formson 03-19-2023 Forms [id number]#1 .00CD:127 Normal [facility] HEMATOLOGYOrdered By: SYSTEM SYSTEM on 03-19-2023 Basophils/100 [...] 7.7 E9/L Normal 4.0 - 11.0 E9/L [facility] HemeAutoSS Lipid Panelon 03-19-2023 Cholesterol [Mass/Vol] 171 mg/dL Normal 120-200 [facility] Comment on above: Performed By: #### 2 792799, 4029211, 7445074, 6817843, 64484484 ####[facility] [address] [place] [address] Cholesterol in HDL [Mass/Vol] 39 mg/dL Invalid Interpretation Code [facility] Comment on above: Result Comment: HDL > or equal to 60 mg/dL: Low cardiovascular risk HDL < 40 mg/dL : High cardiovascular risk Performed By: #### 2 288762, 4075708, 6385222, 3284681, 23813525 ####[facility] [address] [place] [address] Cholesterol in LDL [Mass/Vol] 112 mg/dL Normal <=129 [facility] Comment on above: Performed By: #### 2 087830, 7028583, 8403637, 3669916, 88473930 ####[facility] [address] [place] [address] Cholesterol in VLDL [Mass/Vol] 19 mg/dL Normal 7-40 [facility] Comment on above: Performed By: #### 2 016038, 5533806, 1212415, 0698543, 29789326 ####[facility] [address] [place] [address] Triglyceride [Mass/Vol] 94 mg/dL Normal <=149 [facility] Comment on above: Performed By: #### 2 335509, 9659043, 5653774, 3268743, 66784403 ####[facility] [address] [place] [address] PSA Screen, Totalon 03-19-20 23 Prostate specific Ag [Mass/Vol] 0.9 ng/mL Normal 0.1-3.5 [facility] Comment on above: Result Comment: The concentration of PSA determined by different manufacturers can vary due to differences in assay methods and reagent specificity. Values obtained from different assay methods cannot be used interchangeably. The methodology used for this result was chemiluminescence using [email or web address]'s Access [employer] PSA reagent. Performed By: #### 2 927626, 8404568, 8803785, 8853017, 91293006 ####[facility] [address] [place] [address] TSHon 03-19-2023 TSH Qn 2.03 m[IU]/L Normal 0.34-5.60 [facility] Comment on above: Performed By: #### 2 828137, 7975567, 0252343, 9853034, 35378311 ####[facility] [place] [address] Covid-19 PCR ([facility])on 07-11 SARS-CoV-2 (COVID-19) RNA BETHANY+probe Ql (Unsp spec) Not detected Normal NOT DETECTED [facility] [...] for this test is supported by the [place] of Health and Human Service's declaration that [...] used). Performed By: #### C VDTBH #### [facility] [address] [place] [address] Dr. Mynor Yun GROUP A STREP CULTUREon 07-11 S. pyogenes Ag Ql (Unsp spec) Culture Observations: NEGATIVE FOR GROUP A STREPTOCOCCUS. Normal [facility] Comment on above: Performed By: #### G RASTCX #### [facility] [address] [place] [address] Dr. Mynor Yun INFLUENZA A AND B AGon 07-28 INFLUANEGH SEE BELOW Normal [facility] Comment on above: Result Comment: Nega tive for Flu A protein angiten. Infection due to Flu A cannot be ruled out. Flu A angiten in the sample may be below the detection limit of the test. Performed By: #### I NFLUAB #### [facility] [address] [place] [address] Dr. [facility]ynor [facility] SEE BELOW Normal [facility] Comment on above: Result Comment: Nega tive for Flu B protein antigen. Infection due to Flu B cannot be ruled out. Flu B antigen in the sample may be below the detection limit of the test. Performed By: #### I NFLUAB #### [facility] [address] [place] [address] Dr. Mynor Yun INFLUENZA A AG Negative Normal NEGATIVE SEE COMMENT [facility] Comment on above: Performed By: #### I NFLUAB #### [facility] [address] [place] [address] Dr. Mynor Yun INFLUENZA B AG Negative Normal NEGATIVE SEE COMMENT [facility] Comment on above: Performed By: #### I NFLUAB #### [facility] [address] [place] [address] Dr. Mynor Yun INTERNAL CONTROLS Within Normal Limits Normal Wi thin Normal Limits [facility] Comment on above: Performed By: #### I NFLUAB #### [facility] [address] [place] [address] Dr. Mynor Yun STREPT SCREENon 07-28-2022 STREP SCREEN A Negative Normal NEGATIVE [facility] Comment on above: Performed By: #### S SCRN #### [facility] [address] [place] [address] Dr. Mynor Yun XR SINUSES 3 VIEWS [...] KELLIE SMALLS Date: 2022-02-01 09:58 Normal [facility] HAND LEFT 3 Son 12-29-2021 HAND LEFT 3 [facility] Department of Radiology [address] [place] [id number] Patient Name: RAKESH PIÑA : 1975 Sex: M Age: Race: White Pt. Location: 84 Patient Status: D Ordered Date: 12/29/2021 11:45:00 AM Completed Date: 12/29/2021 11:50 AM Requesting Provider: LORI DALLAS Attending Provider: LORI DALLAS Report Copy To: Signs & Symptoms: M79.642 Pain in left hand I10 History: Comments: Evaluate Exam: HAND LEFT 3 [facility] HAND LEFT 3 [facility] 12/29/2021 11:50 AM CLINICAL INDICATIONS: [...] alignment. Electronically signed: Heather Montana. Transcribed by: [email or web address], User Resident: Electronically Signed by: HEATHER MONTANA @ 12/31/2021 08:55 AM Normal [facility] Comment on above: Order Comment: Evalu ate HAND LEFT 3 [facility] 12-08-2021 HAND LEFT 3 [facility] Department of Radiology [address] [place] [id number] Patient Name: RAKESH PIÑA : 1975 Sex: M Age: Race: White Pt. Location: 84 Patient Status: D Ordered Date: 12/08/2021 1:25:00 PM Completed Date: 12/08/2021 01:29 PM Requesting Provider: LORI DALLAS Attending Provider: LORI DALLAS Report Copy To: Signs & Symptoms: M79.642 Pain in left hand I10 History: Rekha Comments: Evaluate Exam: HAND LEFT 3 [facility] HAND LEFT 3 [facility] 12/08/2021 1:29 PM CLINICAL INDICATIONS: M79.642 Pain [...] bridging. Electronically signed: Ronaldo Major. Transcribed by: [email or web address], User Resident: Electronically Signed by: RONALDO MAJOR @ 12/09/2021 04:04 PM Normal [facility] Comment on above: Order Comment: Evalu ate HAND LEFT 3 [facility] 11-14-2021 HAND LEFT 3 [facility] Department of Radiology [address] [place] [id number] Patient Name: RAKESH PIÑA : 1975 [...] fracture. Electronically signed: Ramirez Smith. Transcribed by: [email or web address], User Resident: Electronically Signed by: RAMIREZ SMITH @ 11/14/2021 08:02 PM Normal [facility] Comment on above: Order Comment: Views (X-RAY, HAND): PA, Lateral, Oblique TESTOSTERONE, TOTALon 2021 Testosterone [Mass/Vol] 411 ng/dL Normal 264-916 [facility] Comment on above: Result Comment: Adul t male reference interval is based on a population of healthy nonobese males (BMI <30) between 19 and 39 years old. precious Perdue.al. JCEM 2017,102;5674-5906. PMID: [id number]. Performed By: #### T ESTTOT #### [facility] [address] [place] [address] Dr. Mynor Yun CBC AUTO DIFFon 11-11-2021 BASO # 0.0 103/ul Normal 0.0-0.1 [facility] Comment on above: Performed By: #### C BC #### [facility] [address] [place] [address] Dr. Mynor Yun Basophils/100 WBC (Bld) 0.2 % Normal 0.2-2.0 [facility] Comment on above: Performed By: #### C BC #### [facility] [address] [place] [address] Dr. Mynor Yun EO # 0.1 103/ul Normal 0.0-0.7 [facility] Comment on above: Performed By: #### C BC #### [facility] [address] [place] [address] Dr. Mynor Yun Eosinophils/100 WBC (Bld) 1.2 % Normal 0.9-7.0 [facility] Comment on above: Performed By: #### C BC #### [facility] [address] [place] [address] Dr. Mynor Yun Erythrocyte distribution width (RBC) [Ratio] 14.3 % Normal 11.0-15.0 [facility] Comment on above: Performed By: #### C BC #### [facility] [address] [place] [address] Dr. Mynor Yun Hematocrit (Bld) [Volume fraction] 47.3 % Normal 42.0-54.0 [facility] Comment on above: Performed By: #### C BC #### [facility] [address] [place] [address] Dr. Mynor Yun Hemoglobin (Bld) [Mass/Vol] 15.2 g/dL Normal 14.0-18.0 [facility] Comment on above: Performed By: #### C BC #### [facility] [address] [place] [address] Dr. Mynor Yun IG # 0.03 10e3/ul Normal 0.00-0.03 [facility] Comment on above: Performed By: #### C BC #### [facility] [address] [place] [address] Dr. Mynor Yun IG % 0.3 % Normal 0.0-0.5 [facility] Comment on above: Performed By: #### C BC #### [facility] [address] [place] [address] Dr. Mynor Yun LYMPH # 1.6 103/ul Normal 1.2-3.8 [facility] Comment on above: Performed By: #### C BC #### [facility] [address] [place] [address] Dr. Mynor Yun Lymphocytes/100 WBC (Bld) 18.4 % Critically low 20.5-60.0 [facility] Comment on above: Performed By: #### C BC #### [facility] [address] [place] [address] Dr. Mynor Yun MANUAL DIFF REQ NO Normal [facility] Comment on above: Performed By: #### C BC #### [facility] [address] [place] [address] Dr. Mynor Yun MCH (RBC) [Entitic mass] 28.8 pg Normal 25.9-34.0 [facility] Comment on above: Performed By: #### C BC #### [facility] [address] [place] [address] Dr. Mynor Yun MCHC (RBC) [Mass/Vol] 32.1 g/dL Normal 29.9-35.2 [facility] Comment on above: Performed By: #### C BC #### [facility] [address] [place] [address] Dr. Mynor Yun MCV (RBC) [Entitic vol] 89.8 fL Normal 80.0-94.0 [facility] Comment on above: Performed By: #### C BC #### [facility] [address] [place] [address] Dr. Mynor Yun MONO # 0.7 103/ul Normal 0.3-0.8 [facility] Comment on above: Performed By: #### C BC #### [facility] [address] [place] [address] Dr. Mynor Yun Monocytes/100 WBC (Bld) 8.4 % Normal 1.7-12.0 [facility] Comment on above: Performed By: #### C BC #### [facility] [address] [place] [address] Dr. Mynor Yun NEUT # 6.2 103/ul Normal 1.4-6.5 [facility] Comment on above: Performed By: #### C BC #### [facility] [address] [place] [address] Dr. Mynor Yun Neutrophils/100 WBC (Bld) 71.5 % Normal 43.0-75.0 [facility] Comment on above: Performed By: #### C BC #### [facility] [address] [place] [address] Dr. Mynor Yun Platelet mean volume (Bld) [Entitic vol] 8.7 fL Critically low 9.5-13.5 [facility] Comment on above: Performed By: #### C BC #### [facility] [address] [place] [address] Dr. Mynor Yun PLT 263 103/ul Normal 150-450 [facility] Comment on above: Performed By: #### C BC #### [facility] [address] [place] [address] Dr. Mynor Yun RBC 5.27 106/ul Normal 4.70-6.10 [facility] Comment on above: Performed By: #### C BC #### [facility] [address] [place] [address] Dr. Mynor Yun WBC 8.7 103/ul Normal 4.0-11.0 [facility] Comment on above: Performed By: #### C BC #### [facility] [address] [address] [address] Mynor Yun LIPID PROFILEon 11-11-2021 CHOL-HDL RATIO NORM SEE BELOW Normal [facility] Comment on above: Result Comment: 3.3 - 4.4 LOW RISK 4.4 - 7.1 AVERAGE RISK 7.1 - 11.0 MODERATE RISK >11.0 HIGH RISK Performed By: #### S SCRN #### [facility] [address] [address] [address] Mynor Yun Cholesterol [Mass/Vol] 129 mg/dL Normal <=200 [facility] Comment on above: Performed By: #### S SCRN #### [facility] [address] [place] [address] Dr. Mynor Yun Cholesterol in HDL [Mass/Vol] 34 mg/dL Normal [facility] Comment on above: Performed By: #### S SCRN #### [facility] [address] [address] [address] Mynor Yun Cholesterol in LDL [Mass/Vol] 82.2 mg/dL Normal [facility] Comment on above: Performed By: #### S SCRN #### [facility] [address] [place] [address] Dr. Mynor Yun Cholesterol.total/Chol esterol in HDL [Mass ratio] 3.8 {ratio} Normal [facility] Comment on above: Performed By: #### S SCRN #### [facility] [address] [address] [address] Mynor Yun HDL NORMAL > or = 60 mg/dl - LO W CARDIOVASCULAR RISK <40 mg/dl - HIGH CARDIOVASCULAR RISK Normal [facility] Comment on above: Performed By: #### S SCRN #### [facility] [address] [place] [address] Dr. Mynor Yun LDL CALC NORMAL SEE BELOW Normal [facility] Comment on above: Result Comment: <100 mg/dl OPTIMAL 100 - 129 mg/dl NEAR OR ABOVE OPTIMAL 130 - 159 mg/dl BORDERLINE HIGH 160 - 189 mg/dl HIGH >190 mg/dl VERY HIGH Performed By: #### S SCRN #### [facility] [address] [address] [address] Mynor Yun Triglyceride [Mass/Vol] 64 mg/dL Normal <=150 [facility] Comment on above: Performed By: #### S SCRN #### [facility] [address] [address] [address] Mynor Yun VLDL CALC 12.8 mg/dL Normal [facility] Comment on above: Performed By: #### S SCRN #### [facility] [address] [address] [address] Mynor Yun PROF 14(COMP METB)on 022 Albumin [Mass/Vol] 3.8 g/dL Normal 3.5-5.0 [facility] Comment on above: Performed By: #### T SH, LIPID, CMP #### [facility] [facility] [address] [place] [address] Dr. Mynor Yun Albumin/Globulin [Mass ratio] 0.9 {ratio} Normal [facility] Comment on above: Performed By: #### T SH, LIPID, CMP #### [facility] [address] [place] [address] Dr. Mynor Yun ALP [Catalytic activity/Vol] 76 U/L Normal 38-126 [facility] Comment on above: Performed By: #### T SH, LIPID, CMP #### [facility] [address] [place] [address] Dr. Mynor Yun ALT [Catalytic activity/Vol] 49 U/L Normal 21-72 [facility] Comment on above: Performed By: #### T SH, LIPID, CMP #### [facility] [address] [place] [address] Dr. Mynor Yun Anion gap [Moles/Vol] 11.2 mmol/L Normal [facility] Comment on above: Performed By: #### T SH, LIPID, CMP #### [facility] [address] [place] [address] Dr. Mynor Yun AST [Catalytic activity/Vol] 31 U/L Normal 17-59 [facility] Comment on above: Performed By: #### T SH, LIPID, CMP #### [facility] [address] [place] [address] Dr. Mynor Yun Bilirubin [Mass/Vol] 0.5 mg/dL Normal 0.2-1.3 [facility] Comment on above: Performed By: #### T SH, LIPID, CMP #### [facility] [address] [place] [address] Dr. Mynor Yun Calcium [Mass/Vol] 9.0 mg/dL Normal 8.4-10.2 [facility] Comment on above: Performed By: #### T SH, LIPID, CMP #### [facility] [address] [place] [address] Dr. Mynor Yun Chloride [Moles/Vol] 104 mmol/L Normal 98-107 [facility] Comment on above: Performed By: #### T SH, LIPID, CMP #### [facility] [address] [place] [address] Dr. Mynor Yun CO2 [Moles/Vol] 30.6 mmol/L Critically high 22.0-30.0 [facility] Comment on above: Performed By: #### T SH, LIPID, CMP #### [facility] [address] [place] [address] Dr. Mynor Yun Creatinine [Mass/Vol] 0.95 mg/dL Normal 0.66-1.25 [facility] Comment on above: Performed By: #### T SH, LIPID, CMP #### [facility] [address] [place] [address] Dr. Mynor Yun EGFR-AF UGANDAN >60 Normal >=60 [facility] Comment on above: Performed By: #### T SH, LIPID, CMP #### [facility] [address] [place] [address] Dr. Mynor Yun EGFR-NON AF UGANDAN >60 Normal >=60 [facility] Comment on above: Performed By: #### T SH, LIPID, CMP #### [facility] [address] [place] [address] Dr. Mnyor Yun Globulin (S) [Mass/Vol] 4.3 g/dL Normal [facility] Comment on above: Performed By: #### T SH, LIPID, CMP #### [facility] [address] [address] [address] Mynor Yun Glucose [Mass/Vol] 104 mg/dL Normal 74-106 [facility] Comment on above: Performed By: #### T SAMARIA, LIPID, CMP #### [facility] [address] [place] [address] Dr. Mynor Yun Potassium [Moles/Vol] 3.8 mmol/L Normal 3.4-5.0 [facility] Comment on above: Performed By: #### T SH, LIPID, CMP #### [facility] [address] [place] [address] Dr. Mynor Yun Protein [Mass/Vol] 8.1 g/dL Normal 6.1-8.2 [facility] Comment on above: Performed By: #### T SAMARIA, LIPID, CMP #### [facility] [address] [place] [address] Dr. Mynor Yun Sodium [Moles/Vol] 142 mmol/L Normal 137-145 [facility] Comment on above: Performed By: #### T SAMARIA, LIPID, CMP #### [facility] [address] [place] [address] Dr. Mynor Yun Urea nitrogen [Mass/Vol] 11.0 mg/dL Normal 9.0-20.0 [facility] Comment on above: Performed By: #### T SAMARIA, LIPID, CMP #### [facility] [address] [place] [address] Dr. Mynor Yun Urea nitrogen/Creatinine [Mass ratio] 11.6 mg/mg Normal [facility] Comment on above: Performed By: #### T SH, LIPID, CMP #### [facility] [address] [place] [address] Dr. Mynor Yun TSHon 11-11-2021 TSH 1.612 uIU/mL Normal 0.470-4.680 [facility] Comment on above: Performed By: #### T SAMARIA, LIPID, CMP #### [facility] [address] [place] [address] Dr. Mynor Yun TSH RANGE SEE BELOW Normal [facility] Comment on above: Result Comment: <0.3 4 UIU/ml HYPERTHYROID 0.34-5.60 UIU/ml EUTHYROID >5.60 UIU/ml HYPOTHYROID Performed By: #### T SH, LIPID, CMP #### [facility] [address] [address] [address] Mynor Yun Encounters Encounter Date Encounter Type Care Provider Facility Start: 07-21-2024 End: 07-21-2024 ambulatory [facility] Start: 06-30-2024 End: 06-30-2024 ambulatory Wilbert Buckner MD Facility:[facility] Start: 03-10-2024 End: 03-10-2024 ambulatory Wilbert Buckner MD Facility:[facility] Start: 02-25-2024 End: 02-25-2024 ambulatory [facility] Start: 02-18-2024 End: 02-18-2024 ambulatory Wilbert Buckner MD [facility] Start: 01-23-2024 End: 01-26-2024 ambulatory ALEXIA TORSTEN [facility] Start: 01-16-2024 End: 01-16-2024 ambulatory [facility] Start: 01-14-2024 End: 01-14-2024 ambulatory Alexia L Torsten Facility:[facility] Start: 01-09-2024 End: 01-09-2024 ambulatory [facility] L [facility]sten [facility] Start: 12-03-2023 End: 12-03-2023 ambulatory Wilbert Buckner MD Facility: [facility] Start: 11-05-2023 End: 11-05-2023 ambulatory [facility] Start: 08-23-2023 End: 08-23-2023 Lab Drop off Alexia L Torsten [facility] Start: 08-23-2023 End: 08-23-2023 ambulatory Alexia L Torsten Facility:[facility] Start: 07-26-2023 End: 07-26-2023 ambulatory Alexia L Torsten Facility:[facility] Start: 06-21-2023 End: 06-21-2023 ambulatory Alexia L Torsten [facility] Start: 05-22-2023 End: 05-22-2023 ambulatory Alexia L Torsten Facility:[facility] Start: 04-24-2023 End: 04-24-2023 ambulatory Alexia L Torsten [facility] Start: 03-19-2023 End: 03-19-2023 ambulatory Alexia L Torsten Facility:[facility] Start: 03-19-2023 End: 03-19-2023 Lab Drop off Alexia L Torsten [facility] Start: 03-19-2023 End: 03-19-2023 ambulatory Alexia L Torsten Facility:[facility] Start: 03-15-2023 ambulatory Alexia Torsten Facility:[facility] Start: 07-28-2022 End: 07-28-[address] LULU BLANK Facility:[facility] Start: 02-01-2022 End: 02-02-[address] LULU BLANK Facility:[facility] Start: 11-15-2021 Encounter for genera l adult medical examination without abnormal findings DR LULU BLANK [facility] Start: 11-11-2021 End: 11-12-[address] LULU BLANK Facility:[facility] Start: 11-11-2021 End: 11-12-2021 Encounter for general adult medical examination without abnormal findings DR LULU BLANK Facility:[facility] Start: 11-10-2021 End: 11-11-2021 ambulatory MAZIN CANO Facility:[facility] Procedures Date Procedure Procedure Detail Performing Clinician Gastric sleeve Alexia Torsten Comment on above: 2009 Immunizations Immunization Date Immunization Notes Care Provider Fa cility 05-31-2023 influenza virus vacc ine, unspecified formulation [facility] 06-07-2022 influenza virus vacc ine, unspecified formulation Alexia Torsten [facility] 11-12-2020 SARS-CoV-2 (COVID-19 ) mRNA BNT-162b2 vax Alexia Torsten [facility] 10-22-2020 SARS-CoV-2 (COVID-19 ) mRNA BNT-162k4 vax Alexia Torsten [facility] 03-10-2019 pneumococcal polysaccharide vaccine, 23 valent Alexia Torsten [facility] Payers Date Payer Category Payer Unknown 2022 Unknown [id number] 2019 Unknown [id number] 2013 Medicare 1975 Unknown [id number] 2.16.84 0.1.062869.3.579.2.593 1977 Unknown [id number] 2.16.84 0.1.437738.3.579.2.593 1977 Unknown [id number] 2.16.84 0.1.233559.3.579.2.593 1977 Unknown [id number] 2.16.84 0.1.439425.3.579.2.593 1977 Unknown [id number] 2.16.8 40.1.503517.3.579.2.182 1977 Unknown [id number] 2.16.8 40.1.970402.3.579.2.182 1977 Unknown [id number] 2.16.8 40.1.297373.3.579.2.727 1977 Unknown [id number] 2.16.8 40.1.146046.3.579.2.727 1977 Unknown [id number] 2.16.8 40.1.525141.3.579.2.727 1977 Unknown [id number] 2.16.8 40.1.220415.3.579.2. 1977 Unknown [id number] 2.16.8 40.1.322652.3.579.2. 1977 Unknown [id number] 2.16.8 40.1.089180.3.579.2. 1977 Unknown [id number] 2.16.8 40.1.674710.3.579.2. 1977 Unknown [id number] 2.16.8 40.1.134289.3.579.2. 1977 Unknown [id number] 2.16.8 40.1.439517.3.579.2. 1977 Unknown [id number] 2.16.8 40.1.863126.3.579.2. 1977 Unknown [id number] 2.16.8 40.1.915115.3.579.2. 1977 Unknown [id number] 2.16. 840.1.063212.3.579.2. 1977 Unknown [id number] 2.16. 840.1.256228.3.579.2. 1977 Unknown [id number] 2.16. 840.1.158363.3.579.2. 1977 Unknown [id number] 2.16. 840.1.890802.3.579.2. 1977 Unknown [id number] 2.16. 840.1.001770.3.579.2. 1977 Unknown [id number] 2.16. 840.1.657943.3.579.2. 1977 Unknown [id number] 2.16. 840.1.581622.3.579.2. 1957 Medicare [id number] 1957 Unknown [id number] Social History Date Type Detail Facility Start: 03-19-2023 End: 08-23-2023 Tobacco smoking status Ex-smoker (finding) [facility] Tobacco smoking status Never [facility] Sex Assigned At Male [facility] Evaluation + Plan note 08-23-2023 Note Date & Type Note Facility 08-23-2023 Evaluation + Plan [facility] 08[facility]23[facility]23 [facility] Clinical Note 11-10-2021 [...] authenticated by: KELLIE SMALLS Date: 2021-11-10 13:16 [facility] Evaluation + Plan note Note Date & Type [facility] Evaluation + Plan note Future Appointments Appointment Date:04/23/2023 11:00:00 AM Scheduled Provider:Alexia Muhammad Location:[facility] Appointment Type: Open [facility] [...] History Records FoundNo Family History Records Found No data available for this section Advance Directives No Advanced Directives Records FoundNo Advanced Directives Records FoundNo Advanced Directives Records FoundNo Advanced Directives Records FoundNo Advanced Directives Records Found Additional Source Comments (unrecognized sect ion and content) No Status Records FoundNo Status Records FoundNo Status Records FoundNo Status Records FoundNo Status Records Found INFORMATION SOURCE (unrecogn ized section and content) DATE CREATED AUTHOR 01/28/2022 [facility] DATE CREATED AUTHOR AUTHOR'S ORGANIZ ATION 08/10/2022 [facility] DATE CREATED AUTHOR AUTHOR'S ORGANIZ ATION 01/28/2024 [facility] DATE CREATED AUTHOR AUTHOR'S ORGANIZ ATION 02/27/2024 [facility] DATE CREATED AUTHOR AUTHOR'S ORGANIZ ATION 07/29/2024 [facility] Patient Care team informatio n (unrecognized section and content) Personnel Name: Alexia Mhuammad Address: Address: [address] [place] [address]- Personnel Name: Alexia Muhammad Address: Address: [address] [place] [address]- FOR RECORDS PERTAINING TO PATIENTS WHO ARE [...] THE PRIMARY CLINICAL RECORDS. [facility] [employer] [facility]. provides no warranty or guarantee of the accuracy or completeness of information in this document.
[2024-09-01 08:30] VITALS: BP 133/88; PULSE 73; TEMP 36.2; O2SAT 99
[2024-09-01 09:05] VITALS: BP 144/75; BP 152/79; PULSE 52; PULSE 71; O2SAT 93; O2SAT 96
[2024-09-01] MEDS: BUPIVACAINE HCL 0.25% PF 25 MG/10 ML VIAL 5 ML INJ (09:06)
[2024-09-01] MEDS: METHYLPREDNISOLONE ACETATE 40 MG/ML VIAL INJ (09:06)
[2024-09-01] MEDS: LIDOCAINE HCL 2% 400 MG/20 ML MDV 15 ML INJ (09:07)
[2024-09-01] MEDS: IOHEXOL 240 MG/ML - 10 ML VIAL INJ (09:07)
--- NOTE | 2024-09-01 09:07 | W.PM.PROCNOT ---
Date of procedure: 09/01/24 Pre-op diagnosis: Pain due to left sacroiliitis Post-op diagnosis: same as pre-op Procedure: Procedure: Left sacroiliac joint injection Medications: Bupivacaine 0.25% 3cc, depomedrol 40mg After informed consent was obtained, the patient was brought to the medical procedure unit and placed in the prone position, when a timeout was completed verifying correct patient, procedure, site, positioning, implant, and/or special equipment.? The skin overlying the area was prepped and draped in standard sterile fashion using alcohol.? A 25-gauge needle was inserted towards the left sacroiliac joint under direct fluoroscopic imaging.? Needle tip was advanced until the joint was encountered.? We instilled a total of 2 mL of solution.? Postoperatively needles were removed.? The patient tolerated the procedure well without complication.? The patient reported reduction in pain symptoms postoperatively. Anesthesia: Local Surgeon: Wilbert Buckner Pathology: none sent Condition: stable Disposition: no change
== END 2024-09-01 09:12 | disposition home or self-care (01) ==
LOC: SURGOUT 08:03
PROVIDERS: PCP Nurse Practitioner; Visit Provider Anesthesiology
DX: M46.1 Sacroiliitis, not elsewhere classified (principal)
CPT/HCPCS: 27096; J0665; J1010; Q9966

== ENCOUNTER 2024-09-10 10:07 | Outpatient (RCR) | payer BC, SELFPAY | END 2024-11-07 07:48 | disposition home or self-care (01) | LOC: PT 10:07 | PROVIDERS: PCP Nurse Practitioner; Visit Provider Nurse Practitioner | DX: M79.18 Myalgia, other site (principal); M54.50 Low back pain, unspecified | CPT/HCPCS: 97110; 97112; 97113; 97140 ==

== ENCOUNTER 2024-09-17 09:21 | Outpatient (OUT) | payer BC, SELFPAY ==
--- NOTE | 2024-09-17 09:35 | P.CN_ITS ---
Consult Note: HPI Data of Consult Patient: known to practice within the last 3 years Consult date: 11/05/23 Requesting Physician: Liliane Garcia NP Primary Care Provider: EFFIE SARMIENTO Consult Narrative Reason for consult: Low back, left hip pain Narrative: 48yom who presents for evaluation. Worsening low back pain. lumbar xray reveals mild to moderate degenerative changes, left hip xray reveals OA, lumbar MRI consistent with multilevel degenerative changes. Continues in provider directed home exercise course >6 weeks, with minimal relief. Pain today 1/10 increasing to 3/10. Recently underwent repeat left SIJ injection with >80% improvement ongoing. Continues to utilize gabapentin 300mg daily, tizanidine 4mg HS PRN, celebrex 200mg BID PRN without side effects. failed tylenol/motrin. engaged in PT. BRENDA 26% cc:: CC: Liliane Garcia NP Review of Systems ROS Status of ROS 10 or more systems reviewed and unremark able except as noted in history and below Musculoskeletal Reports: back pain and joint pain PFSH PFSH Medical History Osteoarthritis ?M19.90 - Unspecified osteoarthritis, unspecified site (ICD-10) KWAN on CPAP ?G47.33 - Obstructive sleep apnea (adult) (pediatric) (ICD-10) Sleep apnea ?G47.30 - Sleep apnea, unspecified (ICD-10) Meds Home Medications and Allergies Home Medications ?Medication ?Instructions ?Recorded ?Confirmed ?Type celecoxib 200 mg capsule (Celebrex) 200 mg PO BID 11/05/23 07/21/24 History cranberry 400 mg capsule 1,600 mg PO DAILY 11/05/23 09/01/24 History loratadine 10 mg tablet (Claritin) 10 mg PO DAILY 11/05/23 09/01/24 History ascorbic acid (vitamin C) 1,000 mg 1,000 mg PO DAILY 12/03/23 09/01/24 History tablet,extended release (C Complex) paroxetine HCl 10 mg tablet 10 mg PO DAILY 01/07/24 09/01/24 History tizanidine 4 mg tablet 4 mg PO DAILY 06/30/24 09/01/24 History gabapentin 300 mg capsule 300 mg 09/01/24 History Allergies Allergy/AdvReac Type Severity Reaction Status Date / Time No Known Drug Allergies Allergy Verified 09/01/24 08:28 Exam Constitutional Documenting provider has reviewed patient's vital signs: yes Common normals: no apparent distress, oriented x3, healthy appearing, alert and well nourished General appearance: cooperative HENMT Common normals: normocephalic, hearing grossly normal bilaterally and moist oral mucous membranes Head and scalp: normocephalic Eye Common normals: PERRL Pupil: PERRL Neck & C-Spine Common normals: full ROM General: normal visual inspection Chest Common normals: inspection of chest normal Respiratory Common normals: normal respiratory effort, no retractions and no use of accessory muscles Back & Pelvis Lumbar spine/lower back: normal to inspection, lumbar ROM normal and straight leg raise negative bilaterally Sacroiliac joints: SI joint(s) abnormal Other: left SIJ mildly positive nancy(patricks), gaenslens, thigh thrust, compression test strength 5/5 in BLE Extremity Common normals: normal to inspection and full ROM Left lower extremity: hip joint Other: mild pain with internal and external log roll Neuro Common normals: oriented x3, CN's II-XII intact bilaterally, moves all extremities, no focal motor deficits, no sensory deficits noted and deep tendon reflexes 2+ bilaterally Sensorium/orientation: alert Motor exam: strength 5/5 throughout and no movement abnormalities noted Psych Common normals: mental status grossly normal, thought process normal, cooperative, affect normal, speech normal and activity/motor behavior normal Speech: normal speech Thought process: normal thought process Results Additional Findings Additional findings: If on a controlled substance or opioids, I have checked an [place] report on this patient and there are no aberrancies noted in the prescribing history.??If on a controlled substance or opioid a drug screen was completed and reviewed within the last year, and if there has not been a drug screen completed we ordered one today to monitor higher risk, state monitored pain medication use. As part of providing excellent, safe, comprehensive care, the following was completed at our patient's visit: 1. A medication reconciliation and review to ensure accurate knowledge of current/active medications, including asking our patients to inform us about any [id number] medications or herbal remedies/nutritional supplements/alternative remedies. 2. A review to specifically ensure our patients have had annual screening for screening for depression, screening for tobacco use, and screening for unhealthy alcohol use. For concerning screenings had a discussion with the patient, provided patient education, and recommended follow-up with primary care provider when appropriate. If patient noted with a risk of falling, they received education on strength, gait, and balance training to prevent future risk of falling. Assessment and Plan Assessment and Plan (1) Sacroiliitis: (2) Lumbar stenosis with neurogenic claudication: (3) Lumbar spondylosis: (4) Osteoarthritis of left hip: Qualifiers: Osteoarthritis type: primary Qualified Code(s): M16.12 - Unilateral primary osteoarthritis, left hip (5) Myalgia: Plan continue current medications continue PT as tolerated f/u 3 months, sooner if needed
== END 2024-09-17 09:22 | disposition home or self-care (01) ==
PROVIDERS: PCP Nurse Practitioner; Visit Provider Nurse Practitioner
DX: M46.1 Sacroiliitis, not elsewhere classified (principal); M48.062 Spinal stenosis, lumbar region with neurogenic claudication; M47.816 Spondylosis without myelopathy or radiculopathy, lumbar region; M16.12 Unilateral primary osteoarthritis, left hip; M79.18 Myalgia, other site
CPT/HCPCS: G0463

== ENCOUNTER 2024-12-17 09:05 | Outpatient (OUT) | payer BC, SELFPAY ==
--- NOTE | 2024-12-17 09:20 | P.CN_ITS ---
Consult Note: HPI Data of Consult Patient: known to practice within the last 3 years Requesting Physician: Liliane Garcia NP Primary Care Provider: EFFIE SARMIENTO Consult Narrative Reason for consult: f/u Narrative: Milton Vaughn a pleasant 49 year old male presents for evaluation of chronic left hip and low back pain. longstanding hx of low back and left hip pain secondary to left hip OA, sacroiliitis, and lumbar spondylosis. PT has completed > 6 weeks of PT and provider guided HEP without significant improvement in pain or functional ability. Pt would like to discuss repeat left hip injection as hes noticing increased left groin pain with standing and walking. Pain today 5/10 in left buttock, low back, groin, and left leg per pt. Pain is throbbing aching. pain increases with driving, standing, stairs, sleep. pain improved with walking. pt finds benefit to celebrex, gabapentin, and tizanidine without side effects. cc:: CC: Liliane Garcia NP Review of Systems ROS Status of ROS 10 or more systems reviewed and unremark able except as noted in history and below Musculoskeletal Reports: back pain and joint pain PFSH PFSH Medical History Osteoarthritis ?M19.90 - Unspecified osteoarthritis, unspecified site (ICD-10) KWAN on CPAP ?G47.33 - Obstructive sleep apnea (adult) (pediatric) (ICD-10) Sleep apnea ?G47.30 - Sleep apnea, unspecified (ICD-10) Meds Home Medications and Allergies Home Medications ?Medication ?Instructions ?Recorded ?Confirmed ?Type celecoxib 200 mg capsule (Celebrex) 200 mg PO BID 11/05/23 07/21/24 History cranberry fruit 400 mg capsule 1,600 mg PO DAILY 11/05/23 09/01/24 History loratadine 10 mg tablet (Claritin) 10 mg PO DAILY 11/05/23 09/01/24 History ascorbic acid (vitamin C) 1,000 mg 1,000 mg PO DAILY 12/03/23 09/01/24 History tablet,extended release (C Complex) paroxetine HCl 10 mg tablet 10 mg PO DAILY 01/07/24 09/01/24 History tizanidine 4 mg tablet 4 mg PO DAILY 06/30/24 09/01/24 History gabapentin 300 mg capsule 300 mg 09/01/24 History celecoxib 200 mg capsule (Celebrex) 200 mg PO BID PRN pain #60 caps 09/17/24 Rx gabapentin 300 mg capsule 300 mg PO DAILY #30 caps 09/17/24 Rx tizanidine 4 mg tablet 4 mg PO .hs PRN muscle spasticity 09/17/24 Rx #30 tabs Allergies Allergy/AdvReac Type Severity Reaction Status Date / Time No Known Drug Allergies Allergy Verified 09/01/24 08:28 Exam Constitutional Documenting provider has reviewed patient's vital signs: yes Common normals: no apparent distress, oriented x3, healthy appearing, alert and well nourished General appearance: cooperative HENMT Common normals: normocephalic, hearing grossly normal bilaterally and moist oral mucous membranes Head and scalp: normocephalic Eye Common normals: PERRL Pupil: PERRL Neck & C-Spine Common normals: full ROM General: normal visual inspection Chest Common normals: inspection of chest normal Respiratory Common normals: normal respiratory effort, no retractions and no use of accessory muscles Back & Pelvis Lumbar spine/lower back: no pain with ROM and no lumbar spinal tenderness Sacroiliac joints: SI joint(s) abnormal Other: left SIJ mildly positive nancy(patricks), gaenslens, thigh thrust, compression test Extremity Left lower extremity: hip joint Other: moderate pain with internal rotation of left hip, severe pain with external rotation. Neuro Common normals: oriented x3 Sensorium/orientation: alert Psych Common normals: mental status grossly normal, thought process normal, cooperative, affect normal, speech normal and activity/motor behavior normal Speech: normal speech Thought process: normal thought process Results Additional Findings Additional findings: If on a controlled substance or opioids, I have checked an [place] report on this patient and there are no aberrancies noted in the prescribing history.??If on a controlled substance or opioid a drug screen was completed and reviewed within the last year, and if there has not been a drug screen completed we ordered one today to monitor higher risk, state monitored pain medication use. As part of providing excellent, safe, comprehensive care, the following was completed at our patient's visit: 1. A medication reconciliation and review to ensure accurate knowledge of current/active medications, including asking our patients to inform us about any [id number] medications or herbal remedies/nutritional suppleme nts/alternative remedies. 2. A review to specifically ensure our patients have had annual screening for screening for depression, screening for tobacco use, and screening for unhealthy alcohol use. For concerning screenings had a discussion with the patient, provided patient education, and recommended follow-up with primary care provider when appropriate. If patient noted with a risk of falling, they received education on strength, gait, and balance training to prevent future risk of falling. Portions of this note may have been carried over from the previous visit and updated as appropriate. Please note this office utilizes paper charting in addition to the electronic medical record. A list of current medications, vitals, and PMH is available there as the clinical staff outside of myself do not have access to [employer] charting during the clinic day operations. As part of providing quality comprehensive care the current medications, vitals, and PMH were reviewed in the paper chart. Assessment and Plan Assessment and Plan (1) Osteoarthritis of left hip: Assessment and Plan: The patient has had over 3 months of moderate to severe left hip pain with functional impairment and inadequate response to conservative care including NSAIDS (unless there are contraindication such as concurrent blood thinners), multiple oral or topical pain medications, and home exercise program/physical therapy.? Patient has completed >6 weeks of guided home exercise program and/or formal physical therapy program without relief of their symptoms.? I have reviewed the imaging of the left hip and no red flags were identified.? The imaging reveals radiographic findings consistent with OA The Oswestry Disability Index was completed, and the patient scored a 18%.? The patient noted the following:?? moderate to severe pain with lifting and sitting We discussed the risks and benefits of the procedure with the patient, and we are NOT planning on using sedation as outlined in the guidelines from Medicare unless there is a documented reason that sedation would be strongly recommended.?? ?The procedure will be completed with fluoroscopic guidance.? Qualifiers: Osteoarthritis type: primary Qualified Code(s): M16.12 - Unilateral primary osteoarthritis, left hip (2) Sacroiliitis: (3) Lumbar stenosis with neurogenic claudication: (4) Lumbar spondylosis: (5) Myalgia: Plan repeat left hip injection under fluoroscopy, previous injection provided >50% improvement in pain and functional ability greater than 5 months additional PT for low back, sacroiliac joint, and left hip pain ordered per pt request continue current medications, risks vs benefits reviewed f/u 2 weeks after injection
== END 2024-12-17 09:06 | disposition home or self-care (01) ==
PROVIDERS: PCP Nurse Practitioner; Visit Provider Nurse Practitioner
DX: M16.12 Unilateral primary osteoarthritis, left hip (principal); M46.1 Sacroiliitis, not elsewhere classified; M48.062 Spinal stenosis, lumbar region with neurogenic claudication; M47.816 Spondylosis without myelopathy or radiculopathy, lumbar region; M79.18 Myalgia, other site
CPT/HCPCS: G0463

== ENCOUNTER 2024-12-18 09:07 | Outpatient (RCR) | payer BC, SELFPAY | END 2025-01-20 16:03 | disposition home or self-care (01) | LOC: PT 09:07 | PROVIDERS: PCP Nurse Practitioner; Visit Provider Anesthesiology | DX: M16.12 Unilateral primary osteoarthritis, left hip (principal); M46.1 Sacroiliitis, not elsewhere classified; M47.816 Spondylosis without myelopathy or radiculopathy, lumbar region | CPT/HCPCS: 97110; 97113; 97161 ==

== ENCOUNTER 2024-12-29 07:09 | Day surgery (SDC) | payer BC, SELFPAY ==
--- OUTSIDE RECORDS SUMMARY | 2024-12-29 07:12 | XMS_ITS | CCD ---
Author Organization [facility] Care Team Providers Care Pcat Instructor Name Role Phone MAZIN CANO Admitting Unavailable MAZIN CANO Attending Unavailable BLANK, DR LULU Tejeda Primary Care Unavailable WEST, DR KELLIE Benavides Consulting Unavailable MAZIN CANO Consulting Unavailable BLANK, DR LULU Tejeda Admitting [...] FOZIA Admitting Unavailable FOZIA UGALDE Attending Unavailable TorstenEffie Primary Care Physician TORSTEN, EFFIE Referring Unavailable TORSTEN, EFFIE Referring Unavailable Torsten, Effie Sewell Attending Unavailable Torsten, Effie Sewell Attending Unavailable Torsten, Effie Sewell Attending Unavailable Torsten, Effie Sewell Attending Unavailable Torsten, Effie Sewell Attending Unavailable Torsten, Effie Sewell Attending Unavailable Torsten, Effie Sewell Attending Unavailable Torsten, Effie Sewell Attending Unavailable Torsten, Effie L Admitting Unavailable Torsten, Effie L Admitting Unavailable Torsten, Effie Sewell Attending Unavailable Torsten, Effie Sewell Attending Unavailable Torsten, Effie Sewell Attending Unavailable Giedraitis , Andrius Guardado Attending Unavailable Giedraitis , Andrius Geo Attending Unavailable Ginabil CORRIGAN, Andrius Kennedyytlynne Attending Unavailable Sita CORRIGAN, Andrius Geo Attending Unavailable Sita CORRIGAN, Andrius Geo Attending Unavailable Sita CORRIGAN, Andrius Guardado Attending Unavailable Ginabil CORRIGAN, Wilbert Guardado Attending Unavailable Sita CORRIGAN, Wilbert Guardado Attending Unavailable Lulu Blank MD Primary Care Provider PEDRO CONTE Attending Unavailable PEDRO CONTE Attending Unavailable PEDRO CONTE Attending Unavailable Torsten [employer] CHIEF-RN DIABETES, Effie L Primary Care Provider NURY POTTER Attending Unavailable EFFIE SARMIENTO Primary Care Unavailable RAAD POTTER Referring Unavailable EFFIE SARMIENTO L Primary Care Unavailable Torsten [employer] CHIEF-RN DIABETES, Effie L Primary Care Provider 1( [phone] IRIS QUINN Attending Unavailable EFFIE SARMIENTO Referring Unavailable EFFIE SARMIENTO Primary Care Unavailable Allergies Allergy Classification Reported Allergen(s) Allergy Type Date of Onset Reaction(s) Facility (7 sources) Other Propensity to adverse reactions 3 [facility] Work Phone: Medications Current Medications Medication Drug Class(es) Dates Sig (Normalized) Sig (Original) celecoxib 50 mg oral capsule (6 sources) Nonsteroidal Anti-inflammatory Drug take 1 capsule by mouth in the morning celecoxib (CeleBREX) 50 MG capsule Take 50 mg by mouth in the morning and 50 mg before bedtime. Active Cranberry preparation (8 sources) Non-Standardized Food Allergenic Extract, Non-Standardized Plant Allergenic Extract Start: 03-19-2023 take 1 tablet by mouth once daily cranberry oral capsule See Instructions, Refill(s) 0, 1 tablet daily Start Date: 03/19/23 Status: Ordered CRANBERRY PO Dain e by mouth Active famotidine 20 mg oral tablet (7 sources) Histamine-2 Receptor Antagonist Start: 03-03-2022 take 1 tablet by mouth at bedtime famotidine (Pepcid) 20 MG tablet Take 20 mg by mouth at bedtime. 03/03/2022 Active Fish Oils (8 sources) Start: 03-19-2023 take 1 capsule by mouth once daily Fish Oil 500 mg oral capsule 500 mg = 1 cap(s), Oral, Daily, Refills(s) 0 Start Date: 03/19/23 Status: Ordered omega-3 (FISH OI L) 300 MG capsule Take by mouth Daily Active fluticasone propionate 0.05 mg/actuat metered dose nasal spray (7 sources) Corticosteroid Start: 03-03-2022 take 2 spray(s) nasal route once daily fluticasone (Flonase) 50 MCG/ACT nasal spray Administer 2 sprays into each nostril 1 (one) time each day at the same time. 03/03/2022 Active gabapentin 100 mg oral capsule (6 sources) Anti-epileptic Agent gabapentin (Neurontin) 100 MG capsule Take by mouth Active loratadine 10 mg oral capsule (2 sources) Start: 03-19-2023 take 1 capsule by mouth once daily as needed loratadine 10 mg oral capsule 10 mg = 1 cap(s), Oral, Daily, PRN Allergy symptoms, # 10 cap(s), Refills(s) 0 Start Date: 03/19/23 Status: Ordered meclizine hydrochloride 25 mg chewable tablet (7 sources) Antiemetic Meclizine HCl 25 MG chewable tablet Chew 1 tablet 1 (one) time each day at the same time. Active methylPREDNISolone 4 mg oral tablet (1 source) Corticosteroid Start: 03-19-2023 End: 03-25-2023 Medrol 4 mg Tab = 1 packet(s), Oral, As Directed, as directed on package labeling, X 6 day(s), # 21 tab(s), Refills(s) 0, Pharmacy: [facility]/pharmacy #[id number], 176.5, cm, 03/19/23 13:15:00 EDT, Height/Length Dosing Start Date: 03/19/23 Stop Date: 03/25/23 Status: Ordered metroNIDAZOLE 500 mg oral tablet (7 sources) Nitroimidazole Antimicrobial take 1 tablet by mouth in the morning, then take 1 tablet by mouth in the evening, then take 1 tablet by mouth at bedtime metroNIDAZOLE (Flagyl) 500 MG tablet Take 500 mg by mouth in the morning and 500 mg in the evening and 500 mg before bedtime. Active ofloxacin 3 mg/ml ophthalmic solution (7 sources) Quinolone Antimicrobial Start: 03-03-2022 take 4 drop(s) into the eye(s) every eight hours ofloxacin (Ocuflox) 0.3 % ophthalmic solution 4 drops every 8 (eight) hours. RT ear 03/03/2022 Active omeprazole 40 mg delayed release oral capsule (7 sources) Proton Pump Inhibitor take 1 capsule by mouth before mealtime omeprazole (PriLOSEC) [address] capsule Take 40 mg by mouth in the morning. Take before meals. Active PARoxetine hydrochloride 10 mg oral tablet (9 sources) Serotonin Reuptake Inhibitor Start: 03-19-2023 take 1 tablet by mouth once daily paroxetine 10 mg Tab 10 mg = 1 tab(s), Oral, Daily, # 90 tab(s), Refills(s) 3, Pharmacy: [facility]/pharmacy #[id number], 176.5, cm, 07/26/23 9:32:00 EST, Height/Length Dosing, 187.2, kg, 07/26/23 9:32:00 EST, Weight Dosing Start Date: 07/26/23 Status: Ordered phentermine hydrochloride 37.5 mg oral tablet (9 sources) Sympathomimetic Amine Anorectic Start: 07-26-2023 take 1 tablet by mouth once daily phentermine 37.5 mg Tab 37.5 mg = 1 tab(s), Oral, Daily, # 30 tab(s), Refills(s) 0, Pharmacy: [facility] #[id number], 176.5, cm, 07/26/23 9:32:00 EST, Height/Length Dosing, 187.2, kg, 07/26/23 9:32:00 EST, Weight Dosing Start Date: 07/26/23 Status: Ordered Start: 03-19-2023 End: 04-18-2023 take 1 tablet by mouth once daily phentermine 37.5 mg Tab 37.5 mg = 1 tab(s), Oral, Daily, X 30 day(s), # 30 tab(s), Refills(s) 0, [id number] 176.5, cm, 03/19/23 13:15:00 EDT, Height/Length Dosing Start Date: 03/19/23 Stop Date: 04/18/23 Status: Ordered tiZANidine 2 mg oral capsule (6 sources) Central alpha-2 Adrenergic Agonist tiZANidine (Zanaflex ) 2 MG capsule Take by mouth as needed at bedtime for muscle spasms Active Problems Active Problems Problem Classification Problem Date Documented Date Episodic/Chronic Acquired foot deformities (4 sources) Acquired varus deformity of right ankle; Translations: [Valgus deformity, not elsewhere classified, right ankle] 10-08-2024 Episodic Acquired foot deformities (4 sources) Acquired valgus deformity of left ankle; Translations: [Valgus deformity, not elsewhere classified, left ankle] 10-08-2024 Episodic Administrative/socia l admission (2 sources) Patient encounter status; Translations: [Dietary counseling and surveillance] Onset: 12-09-2024 12-03-2024 Episodic Disorders of lipid metabolism (1 source) Mixed hyperlipidemia; Translations: [MIXED HYPERLIPIDEMIA] Onset: 07-31-2022 Chronic Esophageal disorders (7 sources) Laryngopharyngeal reflux; Translations: [Gastro-esophageal reflux disease without esophagitis] Onset: 04-05-2023 04-05-2023 Chronic Hepatitis (7 sources) Nonalcoholic steatohepatitis; Translations: [Nonalcoholic steatohepatitis (RODRIGUEZ)] Onset: 04-05-2023 04-05-2023 Chronic Nutritional deficiencies (1 source) Vitamin D deficiency, unspecified; Translations: [VITAMIN D DEFICIENCY UNSPECIFIED] Onset: 07-31-2022 Chronic Other acquired deformities (4 sources) Leg length inequality; Translations: [Unequal limb length (acquired), unspecified site] 10-08-2024 Episodic Other connective tissue disease (2 sources) Bilateral dysfunction of posterior tibial tendon of feet; Translations: [Posterior tibial tendinitis, right leg] 11-05-2024 Episodic Other diseases of veins and lymphatics (7 sources) Lymphedema; Translations: [Lymphedema, not elsewhere classified] Onset: 04-05-2023 04-05-2023 Chronic Other ear and sense organ disorders (7 sources) Sensorineural hearing loss, bilateral; Translations: [Sensorineural hearing loss, bilateral] Onset: 04-05-2023 04-05-2023 Chronic Other endocrine disorders (1 source) Male hypogonadism 08-23-2023 Chronic Other nervous system disorders (1 source) Difficulty in walking, not elsewhere classified; Translations: [Difficulty in walking, not elsewhere classified] Onset: 01-23-2024 Chronic Other non-traumatic joint disorders (4 sources) Instability of joint of left foot; Translations: [Other instability, left foot] 10-08-2024 Episodic Other non-traumatic joint disorders (4 sources) Instability of joint of right foot; Translations: [Other instability, right foot] 10-08-2024 Episodic Other nutritional; endocrine; and metabolic disorders (3 sources) Morbid (severe) obesity due to excess calories; Translations: [MORBID SEVERE OBES D/T EXCESS GAYATRI] Onset: 07-31-2022 Chronic Other nutritional; endocrine; and metabolic disorders (2 sources) Body mass index (BMI) 50.0-59.9, adult; Translations: [BODY MASS INDEX BMI 50.0-59.9 ADULT] Onset: 07-31-2022 Chronic Other nutritional; endocrine; and metabolic disorders (3 sources) Morbid obesity; Translations: [Morbid (severe) obesity due to excess calories] 03-19-2023 Chronic Other nutritional; endocrine; and metabolic disorders (1 source) Body mass index 40+ - severely obese; Translations: [Morbid (severe) obesity due to excess calories] 11-28-2024 Chronic Other upper respiratory disease (7 sources) Chronic rhinitis; Translations: [Chronic rhinitis] Onset: 04-05-2023 04-05-2023 Chronic Other upper respiratory infections (5 sources) Acute pharyngitis, unspecified; Translations: [Acute upper respiratory infection, unspecified] Onset: 07-28-2022 Episodic Residual codes; unclassified (1 source) Obstructive sleep apnea (adult) (pediatric); Translations: [OBSTRUCTIVE SLEEP APNEA] Onset: 07-31-2022 Chronic Residual codes; unclassified (7 sources) Obstructive sleep apnea syndrome; Translations: [Obstructive sleep apnea (adult) (pediatric)] Onset: 04-05-2023 04-05-2023 Chronic Residual codes; unclassified (2 sources) History of sleeve gastrectomy; Translations: [Acquired absence of stomach [part of]] 11-28-2024 Episodic Residual codes; unclassified (3 sources) Acquired absence of stomach [part of]; Translations: [Acquired absence of stomach (part of)] Onset: 11-28-2024 Episodic Screening and history of mental health and [...] Unclassified (3 sources) Patient encounter status 03-19-2023 Unclassified (1 source) New Patient Onset: 11-28-2024 Unclassified (1 source) Nutrition Counseling Onset: 12-09-2024 Past or Other Problems Problem Classification Problem Date Documented Da te Episodic/Chronic Cardiac dysrhythmias (7 sources) Sinus tachycardia; Translations: [Tachycardia, unspecified] Onset: 04-05-2023 04-05-2023 Episodic Conditions associated with dizziness or vertigo (4 sources) Dizziness and giddiness; Translations: [DIZZINESS AND GIDDINESS] Onset: 02-01-2022 Episodic Fracture of upper limb (1 source) Other fracture of fifth metacarpal bone, left hand, initial encounter for closed fracture; Translations: [OTH FX 5TH MC BN LH INIT CLOS FX] Onset: 11-11-2021 Episodic Malaise and fatigue (1 source) Fatigue 08-23-2023 Episodic Other ear and sense organ disorders (7 sources) Otorrhea of right ear; Translations: [Otorrhea, right ear] Onset: 04-05-2023 04-05-2023 Episodic Other nervous system disorders (1 source) Paresthesia of foot 07-26-2023 Episodic Other upper respiratory disease (1 source) Nasal congestion; Translations: [NASAL CONGESTION] Onset: 02-03-2022 Episodic Other upper respiratory disease (7 sources) Hoarse; Translations: [Dysphonia] Onset: 04-05-2023 04-05-2023 Episodic Otitis media and related conditions (20 sources) Dysfunction of bilateral eustachian tubes; Translations: [Unspecified Eustachian tube disorder, bilateral] Onset: 04-05-2023 04-05-2023 Episodic Superficial injury; contusion (6 sources) Contusion of left little finger without damage to nail, initial encounter; Translations: [Contusion of left ring finger without damage to nail, initial encounter] Onset: 11-10-2021 Episodic Unclassified (1 source) History of sleeve gastrectomy 11-28-2024 Results Test Name Value Interpretation Reference Range Facility CBC AND AUTO DIFFon 03-24-20 25 ABSOLUTE BASOPHIL 0.2 X10E9/L Normal 0.0-0.2 [facility] Comment on above: Performed By: #### 4 8615-9, 73312-5 #### [facility] ([id number]) [address] [place] [address] #### LIVR, 37157-4, 2731-8, 2498-4, HA1C, 2132-9, 3016-3, CBCA #### [facility] ([id number]) [address], [address] [place] [address] ABSOLUTE NEUTROPHIL 5.2 X10E9/L Normal 1.5-6.6 [facility] Comment on above: Performed By: #### 4 8615-9, 05791-9 #### [facility] ([id number]) [address] [place] [address]646 #### LIVR, 76904-2, 2731-8, 2498-4, HA1C, 2-9, 3016-3, CBCA #### [facility] ([id number]) [address], [address] [place] [address] Basophils/100 WBC (Bld) 2.6 % Normal [facility] Comment on above: Performed By: #### 4 8615-9, 05487-2 #### [facility] ([id number]) [address] [place] [address] 19[address] #### LIVR, 54522-7, 2731-8, 2498-4, HA1C, 2132-9, 3016-3, CBCA #### [facility] ([id number]) [address], [address] [place] [address] Eosinophils (Bld) [#/Vol] 0.1 10*3/uL Normal 0.0-0.4 [facility] Comment on above: Performed By: #### 4 8615-9, 33962-7 #### [facility] ([id number]) [address] [place] [address] #### LIVR, 91540-9, 2731-8, 2498-4, HA1C, 2131-9, 3016-3, CBCA #### [facility] ([id number]) [address], [address] [place] [address] Eosinophils/100 WBC (Bld) 1.5 % Normal [facility] Comment on above: Performed By: #### 4 8615-9, 55320-0 #### [facility] ([id number]) [address] [place] [address]476 #### LIVR, 82267-5, 1-8, 2498-4, HA1C, 2131-9, 3016-3, CBCA #### [facility] ([id number]) [address], [address] [place] [address] Erythrocyte distribution width (RBC) [Ratio] 16.0 % High 11.5-15.0 [facility] Comment on above: Performed By: #### 4 8615-9, 43015-7 #### [facility] ([id number]) [address] [place] [address] #### LIVR, 65238-2, 1-8, 2498-4, HA1C, 2131-9, 3016-3, CBCA #### [facility] ([id number]) [address], [address] [place] [address] Hematocrit (Bld) [Volume fraction] 44.1 % Normal 39-49 [facility] Comment on above: Performed By: #### 4 8615-9, 43597-3 #### [facility] ([id number]) [address] [place] [address]55 #### LIVR, 16547-5, 2731-8, 2498-4, HA1C, 2132-9, 3016-3, CBCA #### [facility] ([id number]) [address], [address] [place] [address] Hemoglobin (Bld) [Mass/Vol] 14.6 g/dL Normal 13.0-17.0 [facility] Comment on above: Performed By: #### 4 8615-9, 15205-0 #### [facility] ([id number]) [address] [place] [address] 69842 #### LIVR, 90562-3, 2731-8, 2498-4, HA1C, 2-9, 3016-3, CBCA #### [facility] ([id number]) [address], [address] [place] [address] Lymphocytes (Bld) [#/Vol] 1.3 10*3/uL Normal 1.0-3.5 [facility] Comment on above: Performed By: #### 4 8615-9, 60406-9 #### [facility] ([id number]) [address] [place] [address] 10058 #### LIVR, 83958-6, 2731-8, 2498-4, HA1C, 2132-9, 3016-3, CBCA #### [facility] ([id number]) [address], [address] [place] [address] Lymphocytes/100 WBC (Bld) 18.4 % Normal [facility] Comment on above: Performed By: #### 4 8615-9, 87575-6 #### [facility] ([id number]) [address] [place] [address] 12760 #### LIVR, 55775-1, 2731-8, 2498-4, HA1C, 2132-9, 3016-3, CBCA #### [facility] ([id number]) [address], [address] [place] [address] MCH (RBC) [Entitic mass] 28.3 pg Normal 27-34 [facility] Comment on above: Performed By: #### 4 8615-9, 12229-0 #### [facility] ([id number]) [address] [place] [address] #### LIVR, 12647-8, 2731-8, 2498-4, HA1C, 2131-9, 3016-3, CBCA #### [facility] ([id number]) [address], [address] [place] [address] MCHC (RBC) [Mass/Vol] 33.1 g/dL Normal 32-36 [facility] Comment on above: Performed By: #### 4 8615-9, 77922-0 #### [facility] ([id number]) [address] [place] [address]27 #### LIVR, 47640-3, 2731-8, 2498-4, HA1C, 2131-9, 3016-3, CBCA #### [facility] ([id number]) [address], [address] [place] [address] MCV (RBC) [Entitic vol] 85 fL Normal 80-100 [facility] Comment on above: Performed By: #### 4 8615-9, 03140-5 #### [facility] ([id number]) [address] [place] [address]13 #### LIVR, 95957-8, 2731-8, 2498-4, HA1C, 2-9, 3016-3, CBCA #### [facility] ([id number]) [address], [address] [place] [address] Monocytes (Bld) [#/Vol] 0.3 10*3/uL Normal 0-0.9 [facility] Comment on above: Performed By: #### 4 8615-9, 64676-9 #### [facility] ([id number]) [address] [place] [address]76 #### LIVR, 80671-9, 2731-8, 2498-4, HA1C, 2132-9, 3016-3, CBCA #### [facility] ([id number]) [address], [address] [place] [address] Monocytes/100 WBC (Bld) 4.3 % Normal [facility] Comment on above: Performed By: #### 4 8615-9, 13135-5 #### [facility] ([id number]) [address] [place] [address] #### RHONDA, 81509-8, 2731-8, 2498-4, HA1C, 2-9, 3016-3, CBCA #### [facility] ([id number]) [address], [address] [place] [address] Neutrophils/100 WBC (Bld) 73.2 % Normal [facility] Comment on above: Performed By: #### 4 8615-9, 85699-0 #### [facility] ([id number]) [address] [place] [address]95 #### LIVR, 58381-9, 2731-8, 2498-4, HA1C, 2132-9, 3016-3, CBCA #### [facility] ([id number]) [address], [address] [place] [address] Platelet mean volume (Bld) [Entitic vol] 7.6 fL Normal 7-12 [facility] Comment on above: Performed By: #### 4 8615-9, 34521-1 #### [facility] ([id number]) [address] [place] [address]95 #### LIVR, 89304-3, 2731-8, 2498-4, HA1C, 2132-9, 3016-3, CBCA #### [facility] ([id number]) [address], [address] [place] [address] Platelets (Bld) [#/Vol] 234 10*3/uL Normal 150-450 [facility] Comment on above: Performed By: #### 4 8615-9, 41865-6 #### [facility] ([id number]) [address] [place] [address] 82498 #### LIVR, 63195-0, 2731-8, 2498-4, HA1C, 2131-9, 3016-3, CBCA #### [facility] ([id number]) [address], [address] [place] [address] RBC COUNT 5.16 X10E12/L Normal 4.10-5.70 [facility] Comment on above: Performed By: #### 4 8615-9, 74612-5 #### [facility] ([id number]) [address] [place] [address] 89590 #### LIVR, 14597-1, 2731-8, 2498-4, HA1C, 2-9, 3016-3, CBCA #### [facility] ([id number]) [address], [address] [place] [address] WBC (Bld) [#/Vol] 7.1 10*3/uL Normal 4.0-11.0 [facility] Comment on above: Performed By: #### 4 8615-9, 64335-8 #### [facility] ([id number]) [address] [place] [address]21 #### LIVR, 87645-2, 2731-8, 2498-4, HA1C, 2132-9, 3016-3, CBCA #### [facility] ([id number]) [address], [address] [place] [address] HGB A1C (GLYCO-HGB)on 2024 Glucose [Mass/Vol] 103 mg/dL Normal [facility] Comment on above: Performed By: #### 4 8615-9, 37127-6 #### [facility] ([id number]) [address] [place] [address]01 #### LIVR, 71908-2, 2731-8, 2498-4, HA1C, 2131-9, 3016-3, CBCA #### [facility] ([id number]) [address], [address] [place] [address] HbA1c (Bld) [Mass fraction] 5.2 % Normal 4.4-5.6 [facility] Comment on above: Result Comment: NOTE ADA Guidelines Result HgbA1c Normal : less than 5.7 % Prediabetes : 5.7 % to 6.4 % Diabetes : > 6.4 % Use with caution in patients with abnormal hemoglobin variants as the half-life of red blood cells and in vivo glycation rates are affected. Performed By: #### 4 8615-9, 70401-6 #### [facility] ([id number]) [address] [place] [address]250 #### LIVR, 18671-2, 2731-8, 2498-4, HA1C, 2-9, 3016-3, CBCA #### [facility] ([id number]) [address], [address] [place] [address] IRONon 12-01-2024 Iron [Mass/Vol] 51 ug/dL Normal 50-212 [facility] Comment on above: Performed By: #### 4 8615-9, 82876-9 #### [facility] ([id number]) [address], [place] [address] #### LIVR, 71836-2, 2731-8, 2498-4, HA1C, 2132-9, 3016-3, CBCA #### [facility] ([id number]) [address], [address] [place] [address] Insulin.free and Insulin.tot al panel Lala 12-01-2024 Insulin, Free, S 146 mcIU/mL High 3 - 25 [facility] Comment on above: Performed By: #### 4 8615-9, 83892-1 #### [facility] ([id number]) [address] [facility], [place] [address] #### LIVR, 45503-0, 2731-8, 2498-4, HA1C, 2132-9, 3016-3, CBCA #### [facility] ([id number]) [address] [place] [address] Insulin, Total, S 168 mcIU/mL High 3 - 25 [facility] Comment on above: Result Comment: NOTE ADDITIONAL INFORMATION This test has been modified from the resident care manager's instructions. Its performance characteristics were determined by [facility] in a manner consistent with CLIA requirements. This test has not been cleared or approved by the U.S. Food and Drug Administration. In patients without anti-insulin antibodies, measured total and free insulin concentrations are comparable. In a reference population, the measured mean free insulin concentration following ultrafiltration was 97% of total insulin concentration. In contrast, free insulin is greatly reduced compared to total insulin concentration in the presence of anti-insulin antibodies. In an in-house study of eight patients with confirmed anti-insulin antibodies, the measured free insulin concentration after ultrafiltration ranged from 0.4-27% (mean of 18%) of the total insulin concentration. Test Performed by: [place] [id number] [employer]: Leslye Pink Ph.D.; CLIA# [id number] Performed By: #### 4 8615-9, 48205-7 #### [facility] ([id number]) [address] [place] [address]39 #### LIVR, 01380-9, 2731-8, 2498-4, HA1C, 2132-9, 3016-3, CBCA #### [facility] ([id number]) [address], [address] [place] [address] LIVER PANELon 12-01-2024 Albumin [Mass/Vol] 3.7 g/dL Normal 3.2-5.3 [facility] Comment on above: Performed By: #### 4 8615-9, 07530-4 #### [facility] ([id number]) [address] [place] [address] 49753 #### LIVR, 26211-3, 2731-8, 2498-4, HA1C, 2132-9, 3016-3, CBCA #### [facility] ([id number]) [address], [address] [place] [address] ALP [Catalytic activity/Vol] 59 U/L Normal 39-130 [facility] Comment on above: Performed By: #### 4 8615-9, 38744-3 #### [facility] ([id number]) [address] [place] [address] #### LIVR, 88779-7, 2731-8, 2498-4, HA1C, 2132-9, 3016-3, CBCA #### [facility] ([id number]) [address], [address] [place] [address] ALT [Catalytic activity/Vol] 19 U/L Normal 0-40 [facility] Comment on above: Performed By: #### 4 8615-9, 63394-9 #### [facility] ([id number]) [address] [place] [address] #### LIVR, 61939-2, 2731-8, 2498-4, HA1C, 2-9, 3016-3, CBCA #### [facility] ([id number]) [address], [address] [place] [address] AST [Catalytic activity/Vol] 18 U/L Normal 0-41 [facility] Comment on above: Performed By: #### 4 8615-9, 02950-4 #### [facility] ([id number]) [address] [place] [address] 94337 #### LIVR, 58165-0, 2731-8, 2498-4, HA1C, 2-9, 3016-3, CBCA #### [facility] ([id number]) [address], [address] [place] [address] Bilirubin [Mass/Vol] 0.5 mg/dL Normal 0.3-1.2 [facility] Comment on above: Performed By: #### 4 8615-9, 26512-0 #### [facility] ([id number]) [address] [place] [address] #### LIVR, 24434-9, 1-8, 2498-4, HA1C, 2-9, 3016-3, CBCA #### [facility] ([id number]) [address], [address] [place] [address] Bilirubin.direct [Mass/Vol] 0.1 mg/dL Normal 0.0-0.4 [facility] Comment on above: Performed By: #### 4 8615-9, 28080-6 #### [facility] ([id number]) [address] [place] [address] #### LIVR, 08991-4, 2731-8, 2498-4, HA1C, 2132-9, 3016-3, CBCA #### [facility] ([id number]) [address], [address] [place] [address] Protein [Mass/Vol] 7.3 g/dL Normal 6.0-8.0 [facility] Comment on above: Performed By: #### 4 8615-9, 40600-3 #### [facility] ([id number]) [address] [place] [address]282 #### LIVR, 97481-6, 2731-8, 2498-4, HA1C, 2131-9, 3016-3, CBCA #### [facility] ([id number]) [address], [address] [place] [address] Parathyrin.intact [Mass/Vol] on 12-01-2024 PTH INTACT 25 pg/mL Normal 12-88 [facility] Comment on above: Performed By: #### 4 8615-9, 26507-9 #### [facility] ([id number]) [address] [place] [address] #### LIVR, 61206-0, 2731-8, 2498-4, HA1C, 2-9, 3016-3, CBCA #### [facility] ([id number]) [address], [address] [place] [address] TSH Qnon 12-01-2024 TSH 1.64 uIU/mL Normal 0.49-4.67 [facility] Comment on above: Performed By: #### 4 8615-9, 07377-7 #### [facility] ([id number]) [address] [place] [address] 12574 #### LIVR, 34465-3, 2731-8, 2498-4, HA1C, 2132-9, 3016-3, CBCA #### [facility] ([id number]) [address] [facility], [address] [place] [address] Testosterone free and total panel [Mass/Vol]on 12-01-2024 Testosterone [Mass/Vol] 286 ng/dL Normal 240-950 [facility] Comment on above: Result Comment: NOTE ADDITIONAL INFORMATION Testing performed by Liquid Chromatography-Tandem Mass Spectrometry (LC-MS/MS). This test was developed and its performance characteristics determined by [facility] in a manner consistent with CLIA requirements. This test has not been cleared or approved by the U.S. Food and Drug Administration. Test Performed by: [facility] [address] [place] [address] [employer]: Leslye Pink Ph.D.; CLIA# [id number] Performed By: #### 4 8615-9, 36873-2 #### [facility] ([id number]) [address] [place] [address] #### LIVR, 25875-0, 2731-8, 2498-4, HA1C, 2132-9, 3016-3, CBCA #### [facility] ([id number]) [address] [facility] [address], [address] [place] [address] TESTOSTERONE FREE 8.16 ng/dL Normal 4.26-16.4 [facility] Comment on above: Result Comment: NOTE ADDITIONAL INFORMATION This test was developed and its performance characteristics determined by [facility] in a manner consistent with CLIA requirements. This test has not been cleared or approved by the U.S. Food and Drug Administration. Performed By: #### 4 8615-9, 17713-2 #### [facility] ([id number]) [address] [place] [address] #### LIVR, 77356-9, 2731-8, 2498-4, HA1C, 2132-9, 3016-3, CBCA #### [facility] ([id number]) [address] [facility], [address] [place] [address] VITAMIN B12on 12-01-2024 Cobalamin (Vitamin B12) [Mass/Vol] 399 pg/mL Normal 180-914 [facility] Comment on above: Performed By: #### 4 8615-9, 93705-6 #### [facility] ([id number]) [address] [place] [address] 255[address] #### LIVR, 79277-2, 2731-8, 2498-4, HA1C, 2131-9, 6-3, CBCA #### [facility] ([id number]) [address] [place] [address], [address] [place] [address] Vitamin D+Metabolites [Mass/ Vol]on 12-01-2024 VITAMIN D 25 HYD TOT 36.1 ng/mL Normal 30-100 [facility] Comment on above: Result Comment: Vitamin D status 25 [place] Vitamin D Deficiency <20 ng/mL Insufficiency 20-29 ng/mL Sufficiency 30-100 ng/mL Toxicity >100 ng/mL NOTE: A pediatric reference range has not been established by the resident care manager of this kit. The [employer] [employer] recommends a Vitamin D level of = or >20ng/mL in infants and children. Performed By: #### 4 8615-9, 65242-9 #### [facility] ([id number]) [address] [place] [address]4747 #### LIVR, 39206-8, 2731-8, 2498-4, HA1C, 2132-9, 3016-3, CBCA #### [facility] ([id number]) [address] [facility] [address], [address] [place] [address] Operative Reporton Operative Report [id number]#1. 00TIFF Normal [facility] Consultation Noteon 02-20-20 Consultation Note [id number]#1 .00TIFF Normal [facility] Consultation Noteon 02-06-20 Consultation Note [id number]#1 .00TIFF Normal [facility] RAD - MRI Reporton RAD - MRI Report [id number]#1 .00TIFF Normal [facility] MRI LUMBAR SPINE WO CONTRAST on 01-23-2024 [...] compromise. L2-L3: No disc bulge or protrusion. Whmj-os-uhrgjirl facet arthropathy. No significant central canal stenosis. [...] Carson Linares DO 01/24/24 Final result Normal [facility] MRI THORACIC SPINE WO CONTRA STon [...] Carson Linares DO 01/24/24 Final result Normal [facility] Family Medicine Office/Clini c Noteon 01-17-2024 Family Medicine Office/Clinic Note HPI Staff Rakesh is a 48 year old male presenting for follow up on back pain EVNANCIO 01/09/2024 Low back pain with left-sided sciatica was given ketorolac, MRI ordered pt tried to get it done Sunday but couldn't get done they didn't due to wasn't open MRI. MRI order was sent to [facility] in [place]. Pt states the burning sensation from sitting [...] not able to get MRI done at [facility]. is waiting for PA for MRI in [place]. they have an open MRI machine. needs [...] days., # 18 tab(s), Refills(s) 0, Pharmacy: [facility] #[id number], 187.5, cm, 01/16/24 13:46:00 EDT, Height/Length Dosing, 183, kg, 01/16/24 13:4... 3. Non-smoker (Z78.9: Other specified health status) continue not smoking Ordered: predniSONE, = 1 -, Oral, As Directed, Take 3 tabs by mouth daily x3 days, then 2 tabs daily x3 days, then 1 tab daily x3 days., # 18 tab(s), Refills(s) 0, Pharmacy: [id number], 187.5, cm, 01/16/24 13:46:00 EDT, Height/Length [...] pneumococcal 23-valent vaccine 03/10/2019 Recorded Normal [facility] Comment on above: Result Comment: Elec tronically Signed By: Effie Muhammad\.br\Date and Time Signed: 01/17/24 10:47 EDT Ambulatory Visit Summaryon 0 01-16-2024 Ambulatory Visit Summary RAKESH PIÑA :1975 Visit Date:01/16/2024 Ambulatory Visit Instructions Your Diagnosis BMI 60.0-69.9, adult Non-smoker Your Care Team Attending Physician - Effie Muhammad Primary Care Physician - Effie Muhammad This Is Your Medications List cranberry [...] 1 tab daily x3 days. Pickup at [facility]/pharmacy #[id number] Unchanged cranberry (cranberry oral capsule) [...] Pain Non-smoker BMI 60.0-69.9, adult Pharmacy Information [facility]/pharmacy #[id number]: [address], [place] [id number] [phone] Allergies No Known Allergies Problems Ongoing - [...] you for choosing us for your care. [facility] Physician Orderon 01-14-2024 Physician Order [id number]#1 .00TIFF [facility] Provider Letteron 01-14-2024 Provider Letter January 14, 2024 RAKESH PIÑA [address] [place] [id number] : 1975 To Whom It May Concern, Please excuse above patient from work. Date of Illness: From: 01/07/2024 To: 01/16/2024 May Return to Work On: 01/17/2024 Restrictions: None Comments: Sincerely, [facility] [place] [address] [facility] Ambulatory Visit Summaryon 0 01-09-2024 Ambulatory Visit Summary RAKESH PIÑA :1975 Visit Date:01/09/2024 Ambulatory Visit Instructions Your Diagnosis Low back pain with left-sided sciatica Non-smoker BMI 60.0-69.9, adult Your Care Team Attending Physician - Effie Muhammad Primary Care Physician - Effie Muhammad This Is Your Medications List cranberry [...] Appointments Sunday. 2023 11:20 AM EDT With: Effie Muhammad Where: [facility] 01-09-2024 Consent [id number]#1 .00TIFF [facility] ED Note-Physicianon 01-09-20 ED Note-Physician [id number]# 1.00TIFF [facility] Family Medicine Office/Clini c Noteon 01-09-2024 Family Medicine Office/Clinic Note HPI Staff Rakesh is a 48 year old male presenting for ER follow up ER followup: Hospital: [facility] Visit date: 01/07/24 Symptoms the patient [...] Pain, # 60 tab(s), Refills(s) 0, Pharmacy: [facility]/pharmacy #[id number], 187.5, cm, 01/09/24 [...] Pain, # 60 tab(s), Refills(s) 0, Pharmacy: [facility]/pharmacy #[id number], 187.5, cm, 01/09/24 10:51:00 EDT, Height/Length Dosing, 187.5, kg, 08/23/23 9:30:00 EST, Weight Dosing triamcinolone, 60 mg = 1.5 mL, Injection, IntraMuscular, Once, Stop date 01/09/24 11:20:00 EDT, Routine, Start date 01/09/24 11:20:00 EDT, 01/09/24 11:20:00 EDT Orders: phentermine, 37.5 mg = 1 tab(s), Oral, Daily, # 30 tab(s), Refills(s) 0, Pharmacy: [facility], 176.5, cm, 07/26/23 9:32:00 EST, Height/Length [...] Social Hi (more content not included)... Normal [facility] Comment on above: Result Comment: Elec tronically Signed By: Effie Muhammad\.br\Date and Time Signed: 01/09/24 11:25 EDT Physician Orderon 01-09-2024 Physician Order [id number]#1 .00TIFF Normal [facility] Provider Letteron 01-09-2024 Provider Letter January 09, 2024 RAKESH PIÑA [address] [place] [id number] : 1975 To Whom It May Concern, Please excuse above patient from work due to medical Date of Illness: From: 01-08-24 To: 01-14-24 May Return to Work On:01-15-24 Restrictions: _ Comments: _ Sincerely, [place] [address] [facility] RAD - CT Reporton 01-09-20[address] RAD - CT Report [id number]#1 .00TIFF [facility] ED Note-Physicianon 01-08-20 ED Note-Physician [id number]#1 .00TIFF [facility] RAD - CT Reporton 01-08-20[address] RAD - CT Report [id number]#1 .00TIFF [facility] Operative Reporton Operative Report [id number]#1 .00TIFF [facility] Consultation Noteon 11-07-19 Consultation Note [id number]#1 .00TIFF [facility] PT - Progress Noteson 2023 PT - Progress Notes [id number]#1 .00TIFF [facility] RAD - MISCon 10-29-2023 RAD - MISC [id number]#1 .00TIFF [facility] Retail - Clinical Noteon Retail - Clinical Note [id number]#1 .00TIFF [facility] Plan of Care - PT/OT/Speecho n 09-06-2023 Plan of Care - PT/OT/Speech [id number]#1 .00TIFF [facility] Physician Referralon 023 Physician Referral [id number]# 1.00TIFF Normal [facility] Testost Totalon 08-25-2023 Testosterone [Mass/Vol] 321 ng/dL Invalid Interpretation Code [id number] [facility] Comment on above: Result Comment: Adul t male reference interval is based on a population of healthy nonobese males (BMI <30) between 19 and 39 years old. Iron et.al. JCEM 2017,102;1617-5100. PMID: [id number]. Performed at: [facility] [address] [id number] PhD Domenic Rider Performed By: #### 2 [id number], [id number], [id number] ####[facility] [address] [place] [address] Reminderson 08-24-2023 Reminders - From: Effie Muhammad To: [facility] - Clinical; Sent: 08/24/2023 [...] left detailed message for patient below Normal [facility] CHEMISTRYOrdered By: SYSTEM SYSTEM on 08-23-2023 Cobalamin [...] thing was in slow motion. 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 He [...] he would like referral to PT at [facility] for bakc/leg pain. gabapentin and muscles relaxers did not help. 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 all questions answered. RTC as needed Ordered: cyclobenzaprine, 10 mg = 1 tab(s), Oral, Bedtime, PRN for spasm, # 30 tab(s), Refills(s) 0, Pharmacy: [facility], 176.5, cm, 07/26/23 9:32:00 EST, Height/Length Dosing, 187.2, kg, 07/26/23 9:32:00 EST, Weight Dosing gabapentin, 300 mg = 1 cap(s), Oral, Daily, # 30 cap(s), Refills(s) 0, Pharmacy: [facility], 176.5, cm, 07/26/23 9:32:00 EST, Height/Length Dosing, 187.2, kg, 07/26/23 9:32:00 EST, Weight Dosing 2. Fatigue (R53.83: Other fatigue) labs drawn today Ordered: Lab Specimen Collect [id number] Testosterone Level Total 3. Hypogonadism male (E29.1: Testicular hypofunction) testosterone ordered Ordered: Lab Specimen Collect 22408 Testosterone Level Total 4. BMI 60.0-69.9, adult (Z68.44: Body mass index [BMI] 60.0-69.9, adult) bmi education complete Ordered: cyclobenzaprine, 10 mg = 1 tab(s), Oral, Bedtime, PRN for spasm, # 30 tab(s), Refills(s) 0, Pharmacy: [facility], 176.5, cm, 07/26/23 9:32:00 EST, Height/Length Dosing, 187.2, kg, 07/26/23 9:32:00 EST, Weight Dosing gabapentin, 300 mg = 1 cap(s), Oral, Daily, # 30 cap(s), Refills(s) 0, Pharmacy: [facility], 176.5, cm, 07/26/23 9:32:00 EST, Height/Length Dosing, 187.2, kg, 07/26/23 9:32:00 EST, Weight Dosing Testosterone Level Total Vitamin B12 Level Vitamin D 25 Hydroxy Follow-up No qualifying data available Patient Education Obesity, Adult, Tbre-ng-Kzkp Problem List/Past Medical History Ongoing Encounter for [...] ago Tob (more content not included)... Normal [facility] Comment on above: Result Comment: Elec tronically Signed By: Effie Muhammad\.br\Date and Time Signed: 08/23/23 12:58 EST [...] food choices, such as grocery stores and [employer] markets. What are the signs or symptoms? [...] How much exercise you get. ? Take tvdc-kot-wnichsu and prescription medicines only as told by [...] with yo (more content not included)... Normal [facility] Vit B12on 08-23-2023 Cobalamin (Vitamin B12) [Mass/Vol] 301 pg/mL Normal 50-1500 [facility] Comment on above: Performed By: #### 2 [id number], [id number], [id number] #### [facility] [address] [place] [address] Vitamin D 25 Hydroxyon 08-23 Vitamin D 25 Hydroxy 57.7 ng/mL Normal 30.0-100.[address] [facility] Comment on above: Performed By: #### 2 [id number], [id number], [id number] ####[facility] [address] [place] [address] Ambulatory Visit Summaryon 1 09-25-2022 Ambulatory Visit Summary RAKESH PIÑA :1975 Visit Date:07/26/2023 Ambulatory Visit Instructions Your Diagnosis Encounter for weight management Left sciatic nerve pain Numbness and tingling of foot Class 3 obesity Nonsmoker BMI 60.0-69.9, adult Your Care Team Attending Physician - Effie Muhammad Primary Care Physician - Effie Muhammad This Is Your Medications List cranberry [...] Follow-Up Appointments 2022 9:20 AM EST With: Effie Muhammad Where: [facility] Normal [facility] Family Medicine Office/Clini c Noteon 07-26-2023 Family [...] spasm, # 30 tab(s), Refills(s) 0, Pharmacy: [facility], 176.5, cm, 07/26/23 9:32:00 EST, Height/Length Dosing, 187.2, kg, 07/26/23 9:32:00 EST, Weight Dosing gabapentin, 300 mg = 1 cap(s), Oral, Daily, # 30 cap(s), Refills(s) 0, Pharmacy: [facility], 176.5, cm, 07/26/23 9:32:00 EST, Height/Length Dosing, 187.2, kg, 07/26/23 9:32:00 EST, Weight Dosing methylPREDNISolone, = 1 packet(s), Oral, As Directed, as directed on package labeling, X 6 day(s), # 21 tab(s), Refills(s) 0, Pharmacy: [facility], 176.5, cm, 07/26/23 9:32:00 EST, Height/Length [...] spasm, # 30 tab(s), Refills(s) 0, Pharmacy: [facility], 176.5, cm, 07/26/23 9:32:00 EST, Height/Length Dosing, 187.2, kg, 07/26/23 9:32:00 EST, Weight Dosing gabapentin, 300 mg = 1 cap(s), Oral, Daily, # 30 cap(s), Refills(s) 0, Pharmacy: [facility], 176.5, cm, 07/26/23 9:32:00 EST, Height/Length Dosing, 187.2, kg, 07/26/23 9:32:00 EST, Weight Dosing methylPREDNISolone, = 1 packet(s), Oral, As Directed, as directed on package labeling, X 6 day(s), # 21 tab(s), Refills(s) 0, Pharmacy: [facility], 176.5, cm, 07/26/23 9:32:00 EST, Height/Length Dosing, 187.2, kg, 07/26/23 9:32:00 EST, Weight Dosing 3. Numbness and tingling of foot (R20.0: Anesthesia of skin) discussed ENG results Ordered: cyclobenzaprine, 10 mg = 1 tab(s), Oral, Bedtime, PRN for spasm, # 30 tab(s), Refills(s) 0, Pharmacy: [facility], 176.5, cm, 07/26/23 9:32:00 EST, Height/Length Dosing, 187.2, kg, 07/26/23 9:32:00 EST, Weight Dosing gabapentin, 300 mg = 1 cap(s), Oral, Daily, # 30 cap(s), Refills(s) 0, Pharmacy: [facility], 176.5, cm, 07/26/23 9:32:00 EST, Height/Length Dosing, 187.2, kg, 07/26/23 9:32:00 EST, Weight Dosing methylPREDNISolone, = 1 packet(s), Oral, As Directed, as directed on package labeling, X 6 day(s), # 21 tab(s), Refills(s) 0, Pharmacy: [facility], 176.5, cm, 07/26/23 9:32:00 EST, Height/Length Dosing, 187.2, kg, 07/26/23 9:32:00 EST, Weight Dosing 4. Class 3 obesity (E66.01: Morbid (severe) obesity due to excess calories) pt continues with diet Ordered: cyclobenzaprine, 10 mg = 1 tab(s), Oral, Bedtime, PRN for spasm, # 30 tab(s), Refills(s) 0, Pharmacy: [facility], 176.5, cm, 07/26/23 9:32:00 EST, Height/Length Dosing, 187.2, kg, 07/26/23 9:32:00 EST, Weight Dosing gabapentin, 300 mg = 1 cap(s), Oral, Daily, # 30 cap(s), Refills(s) 0, Pharmacy: [facility], 176.5, cm, 07/26/23 9:32:00 EST, Height/Length Dosing, 187.2, kg, 07/26/23 9:32:00 EST, Weight Dosing methylPREDNISolone, = 1 packet(s), Oral, As Directed, as directed on package labeling, X 6 day(s), # 21 tab(s), Refills(s) 0, Pharmacy: [facility], (more content not included)... Normal [facility] Comment on above: Result Comment: Elec tronically Signed By: Effie Muhammad.jessica\Date and Time Signed: 07/26/23 09:54 EST EMG Electromyographyon 07-10 EMG Electromyography [id number]#1 .00TIFF Normal [facility] EMG Electromyography [id number]#1. 00TIFF [facility] Physician Referralon 023 Physician Referral [id number]# 1.00TIFF [facility] Ambulatory Visit Summaryon 1 Ambulatory Visit Summary RAKESH PIÑA :1975 Visit Date:06/21/2023 Ambulatory Visit Instructions Your Diagnosis Encounter for weight management BMI 50.0-59.9, adult Non-smoker BMI 60.0-69.9, adult Left sciatic nerve pain Morbid obesity due to excess calories Your Care Team Attending Physician - Effie Muhammad Primary Care Physician - Effie Muhammad This Is Your Medications List cranberry [...] Follow-Up Appointments 2022 9:20 AM EST With: Effie Muhammad Where: [facility] Family Medicine Office/Clini c Noteon 06-21-2023 [...] day(s), # 30 tab(s), Refills(s) 1, Pharmacy: [facility], 176.5, cm, 06/21/23 9:41:00 EDT, Height/Length Dosing, 186.7, kg, 06/21/23 9:41:00 EDT, Weight Dosing meloxicam, 15 mg = 1 tab(s), Oral, Daily, X 30 day(s), # 30 tab(s), Refills(s) 0, Pharmacy: [facility], 176.5, cm, 06/21/23 9:41:00 EDT, Height/Length Dosing, 186.7, kg, 06/21/23 9:41:00 EDT, Weight Dosing meloxicam, 15 mg = 1 tab(s), Oral, Daily, # 30 tab(s), Refills(s) 1, Pharmacy: [facility], 176.5, cm, 05/22/23 9:51:00 EDT, Height/Length Dosing, 190.2, kg, 05/22/23 9:51:00 EDT, Weight Dosing 2. Left sciatic nerve pain (M54.32: Sciatica, left side) pt continues to have left sciatic nerve pain but it is improved Ordered: meloxicam, 15 mg = 1 tab(s), Oral, Daily, X 30 day(s), # 30 tab(s), Refills(s) 1, Pharmacy: [facility], 176.5, cm, 06/21/23 9:41:00 EDT, Height/Length Dosing, 186.7, kg, 06/21/23 9:41:00 EDT, Weight Dosing meloxicam, 15 mg = 1 tab(s), Oral, Daily, X 30 day(s), # 30 tab(s), Refills(s) 0, Pharmacy: [facility], 176.5, cm, 06/21/23 9:41:00 EDT, Height/Length Dosing, 186.7, kg, 06/21/23 9:41:00 EDT, Weight Dosing meloxicam, 15 mg = 1 tab(s), Oral, Daily, # 30 tab(s), Refills(s) 1, Pharmacy: [facility], 176.5, cm, 05/22/23 9:51:00 EDT, Height/Length Dosing, 190.2, kg, 05/22/23 9:51:00 EDT, Weight Dosing phentermine, 37.5 mg = 1 tab(s), Oral, Daily, X 30 day(s), # 30 tab(s), Refills(s) 0, Pharmacy: [facility], 176.5, cm, 05/22/23 9:51:00 EDT, Height/Length Dosing, 190.2, kg, 05/22/23 9:51:00 EDT, Weight Dosing [facility] External Ambulatory Referral 3. Lower extremity numbness (R20.0: Anesthesia of skin) EMG order sent to [facility] in [place] Ordered: [facility] External Ambulatory Referral 4. Morbid obesity due to excess calories (E66.01: Morbid (severe) obesity due to excess calories) BMI education complete Ordered: meloxicam, 15 mg = 1 tab(s), Oral, Daily, X 30 day(s), # 30 tab(s), Refills(s) 1, Pharmacy: [facility], 176.5, cm, 06/21/23 9:41:00 EDT, Height/Length Dosing, 186.7, kg, 06/21/23 9:41:00 EDT, Weight Dosing meloxicam, 15 mg = 1 tab(s), Oral, Daily, X 30 day(s), # 30 tab(s), Refills(s) 0, Pharmacy: [facility], 176.5, cm, 06/21/23 9:41:00 EDT, Height/Length Dosing, 186.7, kg, 06/21/23 9:41:00 EDT, Weight Dosing meloxicam, 15 mg = 1 tab(s), Oral, Daily, # 30 tab(s), Refills(s) 1, Pharmacy: [facility], 176.5, cm, 05/22/23 9:51:00 EDT, Height/Length Dosing, 190.2, kg, 05/22/23 9:51:00 EDT, Weight Dosing phentermine, 37.5 mg = 1 tab(s), Oral, Daily, X 30 day(s), # 30 tab(s), Refills(s) 0, Pharmacy: [facility], 176.5, cm, 05/22/23 9:51:00 EDT, Height/Length Dosing, 190.2, kg, 05/22/23 9:51:00 EDT, Weight Dosing 5. BMI 50.0-59.9, adult (Z68.43: Body mass index [BMI] 50.0-59.9, adult) BMI education complete 6. Non-smoker (Z78.9: Other specified health status) continue not smoking Ordered: meloxicam, 15 mg = 1 tab(s), Oral, Daily, X 30 day(s), # 30 tab(s), Refills(s) 1, Pharmacy: [id number], 176.5, cm, 06/21/23 9:41:00 EDT, Height/Length Dosing, 186.7, kg, 06/21/23 9:41:00 EDT, Weight Dosing meloxicam, 15 mg = 1 tab(s), Or (more content not included)... [facility] Comment on above: Result Comment: Elec tronically Signed By: Effie Muhammad\.br\Date and Time Signed: 06/21/23 14:25 EDT Ambulatory Visit Summaryon 0 05-22-2023 Ambulatory Visit Summary RAKESH PIÑA :1975 Visit Date:05/22/2023 Ambulatory Visit Instructions Your Diagnosis BMI 60.0-69.9, adult Non-smoker Your Care Team Attending Physician - Effie Muhammad Primary Care Physician - Effie Muhammad This Is Your Medications List cranberry [...] Follow-Up Appointments 2022 9:20 AM EDT With: Effie Muhammad Where: [facility] Ambulatory Visit Summary RAKESH PIÑA :1975 Visit Date:05/22/2023 Ambulatory Visit Instructions Your Diagnosis BMI 60.0-69.9, adult Non-smoker Your Care Team Attending Physician - Effie Muhammad Primary Care Physician - Effie Muhammad This Is Your Medications List cranberry [...] Follow-Up Appointments 2022 9:20 AM EDT With: Effie Muhammad Where: [facility] [place] Normal [facility] Office/Clini c Noteon 05-22-2023 Family [...] in his legs at night. 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 all questions answered. RTC 4 weeks Ordered: meloxicam, 15 mg = 1 tab(s), Oral, Daily, # 30 tab(s), Refills(s) 1, Pharmacy: [facility], 176.5, cm, 05/22/23 9:51:00 EDT, Height/Length Dosing, 190.2, kg, 05/22/23 9:51:00 EDT, Weight Dosing 2. Left sciatic nerve pain (M54.32: Sciatica, left side) will order antiinflammatory. steroid did not give him any relief Ordered: meloxicam, 15 mg = 1 tab(s), Oral, Daily, # 30 tab(s), Refills(s) 1, Pharmacy: [facility], 176.5, cm, 05/22/23 9:51:00 EDT, Height/Length Dosing, 190.2, kg, 05/22/23 9:51:00 EDT, Weight Dosing phentermine, 37.5 mg = 1 tab(s), Oral, Daily, X 30 day(s), # 30 tab(s), Refills(s) 0 phentermine, 37.5 mg = 1 tab(s), Oral, Daily, X 30 day(s), # 30 tab(s), Refills(s) 0, Pharmacy: [facility], 176.5, cm, 05/22/23 9:51:00 EDT, Height/Length Dosing, 190.2, kg, 05/22/23 9:51:00 EDT, Weight Dosing 3. BMI 60.0-69.9, adult (Z68.44: Body mass index [BMI] 60.0-69.9, adult) BMI education complete Ordered: meloxicam, 15 mg = 1 tab(s), Oral, Daily, # 30 tab(s), Refills(s) 1, Pharmacy: [facility], 176.5, cm, 05/22/23 9:51:00 EDT, Height/Length Dosing, 190.2, kg, 05/22/23 9:51:00 EDT, Weight Dosing 4. Morbid obesity due to excess calories (E66.01: Morbid (severe) obesity due to excess calories) see above Ordered: meloxicam, 15 mg = 1 tab(s), Oral, Daily, # 30 tab(s), Refills(s) 1, Pharmacy: [facility], 176.5, cm, 05/22/23 9:51:00 EDT, Height/Length Dosing, 190.2, kg, 05/22/23 9:51:00 EDT, Weight Dosing phentermine, 37.5 mg = 1 tab(s), Oral, Daily, X 30 day(s), # 30 tab(s), Refills(s) 0 phentermine, 37.5 mg = 1 tab(s), Oral, Daily, X 30 day(s), # 30 tab(s), Refills(s) 0, Pharmacy: [facility], 176.5, cm, 05/22/23 9:51:00 EDT, Height/Length Dosing, 190.2, kg, 05/22/23 9:51:00 EDT, Weight Dosing 5. Non-smoker (Z78.9: Other specified health status) continue not smoking Ordered: meloxicam, 15 mg = 1 tab(s), Oral, Daily, # 30 tab(s), Refills(s) 1, Pharmacy: [facility], 176.5, cm, 05/22/23 9:51:00 EDT, Height/Length Dosing, 190.2, kg, 05/22/23 9:51:00 EDT, Weight Dosing phentermine, 37.5 mg = 1 tab(s), Oral, Daily, X 30 day(s), # 30 tab(s), Refills(s) 0 phentermine, 37.5 mg = 1 tab(s), Oral, Daily, X 30 day(s), # 30 tab(s), Refills(s) 0, Pharmacy: [facility], 176.5, cm, 05/22/23 9:51:00 EDT, Height/Length [...] Daily Allerg (more content not included)... Normal [facility] Comment on above: Result Comment: Elec tronically Signed By: Effie Muhammad\.jessica\Date and Time Signed: 05/22/23 10:34 EDT [place] 04-26-2023 Consent [id number] .[id number]:127 Normal [facility] Office/Clini c Noteon 04-24-2023 Family [...] kenalog 60mg IM in office today. Normal [facility] Comment on above: Result Comment: Elec tronically Signed By: Effie Muhammad\.br\Date and Time Signed: 04/24/23 13:42 EDT Ambulatory Visit Summaryon 0 03-19-2023 Ambulatory Visit Summary RAKESH PIÑA Janelle :1975 Visit Date:03/19/2023 Ambulatory Visit Instructions Your Diagnosis Wellness examination Morbid obesity due to excess calories Non-smoker Left sciatic nerve pain Colon cancer screening Your Care Team Attending Physician - Effie Muhammad Primary Care Physician - Effie Muhammad This Is Your Medications List cranberry [...] Follow-Up Appointments Sunday 11:00 AM EDT With: Effie Muhammad Where: [facility] [place] Normal [facility] Auto Diffon 03-19-2023 Basophils/100 WBC (Bld) 0.3 % Normal 0.0-2.0 [facility] Comment on above: Order Comment: Order Added by Discern Expert. Performed By: #### 2 469271, 5870581, 7375045, 1240493, [id number] ####[facility] [address] [place] [address] Basophils/Leukocytes Auto (Bld) [Pure # fraction] 0.0 E9/L Normal 0.0-0.2 [facility] Comment on above: Order Comment: Order Added by Discern Expert. Performed By: #### 2 702744, 5298357, 0999892, 0865241, [id number] ####[address] [address] Eosinophils/100 WBC (Bld) 2.1 % Normal 0.0-8.0 [facility] Comment on above: Order Comment: Order Added by Discern Expert. Performed By: #### 2 799844, 8206514, 9823816, 0147735, [id number] ####[address] [address] Eosinophils/Leukocytes Auto (Bld) [Pure # fraction] 0.2 E9/L Normal 0.0-0.5 [facility] Comment on above: Order Comment: Order Added by Discern Expert. Performed By: #### 2 933174, 2677470, 1590914, 9437902, 78083203 ####[address] [address] Lymphocytes/100 WBC (Bld) 20.5 % Normal 14.0-50.0 [facility] Comment on above: Order Comment: Order Added by Nellie Expert. Performed By: #### 2 455501, 5633445, 8454592, 3326785, 36211764 ####[address] [address] Lymphocytes/Leukocytes Auto (Bld) [Pure # fraction] 1.6 E9/L Normal 1.0-4.0 [facility] Comment on above: Order Comment: Order Added by Nellie Expert. Performed By: #### 2 324484, 4967051, 8092367, 7740542, 78043602 ####[address] [address] Monocytes/100 WBC (Bld) 8.7 % Normal 4.0-14.0 [facility] Comment on above: Order Comment: Order Added by Discern Expert. Performed By: #### 2 867447, 7565021, 6601255, 9812880, 34896907 ####[address] [place] [address] Monocytes/Leukocytes Auto (Bld) [Pure # fraction] 0.7 E9/L Normal 0.2-1.0 [facility] Comment on above: Order Comment: Order Added by Discern Expert. Performed By: #### 2 307503, 4141061, 9465750, 2889453, [id number] ####[address] [place] [address] Neutrophils/100 WBC (Bld) 68.4 % Normal 36.0-75.0 [facility] Comment on above: Order Comment: Order Added by Discern Expert. Performed By: #### 2 395449, 6989438, 0110935, 1076724, 03332160 ####[address] [address] Neutrophils/Leukocytes Auto (Bld) [Pure # fraction] 5.3 E9/L Normal 2.0-7.5 [facility] Comment on above: Order Comment: Order Added by Discern Expert. Performed By: #### 2 182441, 5944513, 5184414, 7503687, 63109949 ####[address] [address] CBC w/ Auto Diffon 3 Erythrocyte distribution width (RBC) [Ratio] 16.3 % High 10.9-14.2 [facility] Comment on above: Performed By: #### 2 253167, 9266626, 2727982, 9543734, 59556662 ####[address] [address] Hematocrit (Bld) [Volume fraction] 43.7 % Normal 37.7-49.0 [facility] Comment on above: Performed By: #### 2 799681, 7409506, 8629425, 4025944, 79443573 ####[facility] [address] [place] [address] Hemoglobin (Bld) [Mass/Vol] 14.4 g/dL Normal 13.5-17.5 [facility] Comment on above: Performed By: #### 2 650793, 7026073, 8914255, 3866623, 91082480 ####[address] [address] MCH (RBC) [Entitic mass] 27.9 pg Normal 27.0-34.0 [facility] Comment on above: Performed By: #### 2 104342, 0898838, 8399858, 4229916, 57489634 ####[address] [address] MCHC (RBC) [Mass/Vol] 33.0 g/dL Normal 31.4-36.0 [facility] Comment on above: Performed By: #### 2 638655, 1188834, 0265705, 9788635, 78902926 ####[address] [address] MCV (RBC) [Entitic vol] 84.8 fL Normal 80.0-100.0 [facility] Comment on above: Performed By: #### 2 675385, 2062448, 2482322, 6367774, 95285434 ####[address] [address] Platelet mean volume (Bld) [Entitic vol] 7.7 fL Normal 6.4-10.8 [facility] Comment on above: Performed By: #### 2 615797, 3056546, 6232524, 3409103, 95067351 ####[address] [address] Platelets (Bld) [#/Vol] 278.0 E9/L Normal 150.0-500.0 [facility] Comment on above: Performed By: #### 2 374106, 3892784, 0961859, 5157237, 50524346 ####[facility] [address] [place] [address] RBC (Bld) [#/Vol] 5.2 E12/L Normal 4.3-5.9 [facility] Comment on above: Performed By: #### 2 291244, 4855107, 8280798, 0020051, 05725656 ####[facility] [address] [place] [address] WBC corrected for nucl RBC Auto (Bld) [#/Vol] 7.7 E9/L Normal 4.0-11.0 [facility] Comment on above: Performed By: #### 2 822408, 7083321, 8381588, 4929964, 33249806 ####[facility] [address] [place] [address] CHEMISTRYOrdered By: SYSTEM SYSTEM on 03-19-2023 Cholesterol [...] day(s), # 21 tab(s), Refills(s) 0, Pharmacy: [facility]/pharmacy #6177, 176.5, cm, 03/19/23 13:15:00 EDT, Height/Length Dosing phentermine, 37.5 mg = 1 tab(s), Oral, Daily, # 30 tab(s), Refills(s) 0, Pharmacy: [facility]/pharmacy #6177, 176.5, cm, 03/19/23 [...] day(s), # 21 tab(s), Refills(s) 0, [facility] 176.5, cm, 03/19/23 13:15:00 EDT, Height/Length Dosing phentermine, 37.5 mg = 1 tab(s), Oral, Daily, # 30 tab(s), Refills(s) 0, [facility] 176.5, cm, 03/19/23 13:15:00 EDT, Height/Length Dosing CBC w/ Auto Diff Cologuard Screening Test Lipid Panel PSA Screen, Total Thyroid Stimulating Hormone 3. Non-smoker (Z78.9: Other specified health status) continue not smoking Ordered: methylPREDNISolone, = 1 packet(s), Oral, As Directed, as directed on package labeling, X 6 day(s), # 21 tab(s), Refills(s) 0, Pharmacy: [facility]/pharmacy #6177, 176.5, cm, 03/19/23 13:15:00 EDT, Height/Length Dosing phentermine, 37.5 mg = 1 tab(s), Oral, Daily, # 30 tab(s), Refills(s) 0, Pharmacy: [facility]/pharmacy #6177, 176.5, cm, 03/19/23 13:15:00 EDT, Height/Length Dosing CBC w/ Auto Diff Cologuard Screening Test Lipid Panel PSA Screen, Total Thyroid Stimulating Hormone 4. Left sciatic nerve pain (M54.32: Sciatica, left side) medrol dose pack sent Ordered: methylPREDNISolone, = 1 packet(s), Oral, As Directed, as directed on package labeling, X 6 day(s), # 21 tab(s), Refills(s) 0, Pharmacy: [facility]/pharmacy #6177, 176.5, cm, 03/19/23 13:15:00 EDT, Height/Length Dosing phentermine, 37.5 mg = 1 tab(s), Oral, Daily, # 30 tab(s), Refills(s) 0, Pharmacy: [facility]/pharmacy #6177, 176.5, cm, 03/19/23 13:15:00 EDT, Height/Length Dosing Colon cancer screening (Z12.11: (more content not included)... Normal [facility] Comment on above: Result Comment: Elec tronically Signed By: Effie Muhammad\.br\Date and Time Signed: 03/19/23 14:00 EDT Formson 03-19-2023 Forms [id number] .[id number]:127 Normal [facility] HEMATOLOGYOrdered By: SYSTEM SYSTEM on 03-19-2023 Basophils/100 [...] 03-19-2023 Cholesterol [Mass/Vol] 171 mg/dL Normal 120-200 [facility] Comment on above: Performed By: #### 2 943278, 8509770, 3368399, 3366216, 47826132 ####[facility] [address] [place] [address] Cholesterol in HDL [Mass/Vol] 39 mg/dL Invalid Interpretation Code [facility] Comment on above: Result Comment: HDL > or equal to 60 mg/dL: Low cardiovascular risk HDL < 40 mg/dL : High cardiovascular risk Performed By: #### 2 830032, 5510868, 6313909, 4486385, 76189552 ####[facility] [address] [place] [address] Cholesterol in LDL [Mass/Vol] 112 mg/dL Normal <=129 [facility] Comment on above: Performed By: #### 2 359435, 2595774, 0250379, 8566333, 67740445 ####[facility] [address] [place] [address] Cholesterol in VLDL [Mass/Vol] 19 mg/dL Normal 7-40 [facility] Comment on above: Performed By: #### 2 743250, 3736072, 9155072, 2854554, 54299901 ####[facility] [address]Nthe [place] [address] Triglyceride [Mass/Vol] 94 mg/dL Normal <=149 [facility] Comment on above: Performed By: #### 2 448475, 2674302, 2772846, 0311410, 78848571 ####[facility] [address] [place] [address] PSA Screen, Totalon 03-19-20 23 Prostate specific Ag [Mass/Vol] 0.9 ng/mL Normal 0.1-3.5 [facility] Comment on above: Result Comment: The concentration of PSA determined by different manufacturers can vary due to differences in assay methods and reagent specificity. Values obtained from different assay methods cannot be used interchangeably. The methodology used for this result was chemiluminescence using [employer] Access Hybritech PSA reagent. Performed By: #### 2 052190, 5956404, 9877488, 8025898, 93551334 ####[facility] [address] [place] [address] TSHon 03-19-2023 TSH Qn 2.03 m[IU]/L Normal 0.34-5.60 [facility] Comment on above: Performed By: #### 2 647945, 7642213, 2861597, 3400087, 53319505 ####[facility] [address] [place] [address] Covid-19 PCR ([facility])on 07-11 SARS-CoV-2 (COVID-19) RNA BETHANY+probe Ql (Unsp spec) Not detected Normal NOT DETECTED [facility] Comment on above: Result Comment: When diagnostic [...] for this test is supported by the [place] of [employer] and Human Service's declaration that [...] used). Performed By: #### C VDTBH #### [facility] [address] [place] [address] Dr. Mynor Yun GROUP A STREP CULTUREon 07-11 S. pyogenes Ag Ql (Unsp spec) Culture Observations: NEGATIVE FOR GROUP A STREPTOCOCCUS. Normal [facility] Comment on above: Performed By: #### G RASTCX #### [facility] [address] [place], [place] [address] Dr. Mynor Yun INFLUENZA A AND B AGon 07-28 INFLUANEGH SEE BELOW Normal [facility] Comment on above: Result Comment: Nega tive for Flu A protein angiten. Infection due to Flu A cannot be ruled out. Flu A angiten in the sample may be below the detection limit of the test. Performed By: #### I NFLUAB #### [facility] [address] [place] [address] Dr. [facility]or Yun [facility] SEE BELOW Normal [facility] Comment on above: Result Comment: Nega tive for Flu B protein antigen. Infection due to Flu B cannot be ruled out. Flu B antigen in the sample may be below the detection limit of the test. Performed By: #### I NFLUAB #### [facility] [address] [place] [address] Dr. Mynor Yun INFLUENZA A AG Negative Normal NEGATIVE SEE COMMENT [facility] Comment on above: Performed By: #### I NFLUAB #### [facility] [address] [place] [address] Dr. Mynor Yun INFLUENZA B AG Negative Normal NEGATIVE SEE COMMENT [facility] Comment on above: Performed By: #### I NFLUAB #### [facility] [address] [place] [address] Dr. Mynor Yun INTERNAL CONTROLS Within Normal Limits Normal Wi thin Normal Limits [facility] Comment on above: Performed By: #### I NFLUAB #### [facility] [address] [place] [address] Dr. Mynor Yun STREPT SCREENon 07-28-2022 STREP SCREEN A Negative Normal NEGATIVE [facility] Comment on above: Performed By: #### S SCRN #### [facility] [address] [place] [address] Dr. Mynor Yun XR SINUSES 3 VIEWS [...] KELLIE SMALLS Date: 2022-02-01 09:58 Normal [facility] HAND LEFT 3 Son 12-29-2021 HAND LEFT 3 S [facility] Department of Radiology [address] [place] [phone] Patient Name: RAKESH PIÑA : 1975 Sex: M Age: Race: White Pt. Location: 84 Patient Status: D Ordered Date: 12/29/2021 11:45:00 AM Completed Date: 12/29/2021 11:50 AM Requesting Provider: LORI DALLAS Attending Provider: LORI DALLAS Report Copy To: Signs & Symptoms: M79.642 Pain in left hand I10 History: Comments: Evaluate Exam: HAND LEFT 3 [facility] HAND LEFT 3 [facility] 12/29/2021 11:50 AM CLINICAL INDICATIONS: M79.642 Pain in left hand I10 TECHNOLOGIST COMMENTS: evaluate healing, fracture left hand beginning of November 2021 QUESTION FOR THE RADIOLOGIST: Evaluate PROTOCOL: AP,Lateral and Oblique views were obtained. COMPARISON: December 08 Impression: 1. Stable appearance of fracture with some new callus formation but fracture remains visible.. No change in positioning or alignment. Electronically signed: Edgardo Montana. Transcribed by: [email or web address], User Resident: Electronically Signed by: EDGARDO MONTANA @ 12/31/2021 08:55 AM Normal The [facility] Comment on above: Order Comment: Evalu ate HAND LEFT 3 Son 12-08-2021 HAND LEFT 3 [facility] Department of Radiology [address] [place] [phone] Patient Name: RAKESH PIÑA : 1975 Sex: M Age: Race: White Pt. Location: Patient Status: D Ordered Date: 12/08/2021 1:25:00 PM Completed Date: 12/08/2021 01:29 PM Requesting Provider: LORI DALLAS Attending Provider: LORI DALLAS Report Copy To: Signs & Symptoms: M79.642 Pain in left hand I10 History: [place] Comments: Evaluate Exam: HAND LEFT 3 [facility] HAND LEFT 3 [facility] 12/08/2021 1:29 PM CLINICAL INDICATIONS: M79.642 Pain [...] bridging. Electronically signed: Ronaldo Major. Transcribed by: [email or web address], User Resident: Electronically Signed by: RONALDO MAJOR @ 12/09/2021 04:04 PM Normal The [facility] Comment on above: Order Comment: Evalu ate HAND LEFT 3 [facility] 11-14-2021 HAND LEFT 3 [facility] Department of Radiology [address] [place] [phone] Patient Name: RAKESH PIÑA : 1975 [...] PA, Lateral, Oblique Exam: HAND LEFT 3 [facility] HAND LEFT 3 S 11/14/2021 1:58 [...] Fifth metacarpal boxers type fracture. Electronically signed: Timo Smith. Transcribed by: [email or web address], User Resident: Electronically Signed by: TIMO SMITH @ 11/14/2021 08:02 PM Normal [facility] Comment on above: Order Comment: Views (X-RAY, HAND): PA, Lateral, Oblique TESTOSTERONE, TOTALon 2021 Testosterone [Mass/Vol] 411 ng/dL Normal 264-916 [facility] Comment on above: Result Comment: Adul t male reference interval is based on a population of healthy nonobese males (BMI <30) between 19 and 39 years old. Iron et.al. JCEM 2017,102;6262-5869. PMID: [id number]. Performed By: #### T ESTTOT #### [facility] [address] [place] [address] Dr. Mynor Yun CBC AUTO DIFFon 11-11-2021 BASO # 0.0 103/ul Normal 0.0-0.1 [facility] Comment on above: Performed By: #### C BC #### [facility] [address] [place] [address] Dr. Mynor Yun Basophils/100 WBC (Bld) 0.2 % Normal 0.2-2.0 [facility] Comment on above: Performed By: #### C BC #### [facility] [address] [place] [address] Dr. Mynor Yun EO # 0.1 103/ul Normal 0.0-0.7 [facility] Comment on above: Performed By: #### C BC #### [facility] [address] [place] [address] Dr. Mynor Yun Eosinophils/100 WBC (Bld) 1.2 % Normal 0.9-7.0 [facility] Comment on above: Performed By: #### C BC #### [facility] [address] [place] [address] Dr. Mynor Yun Erythrocyte distribution width (RBC) [Ratio] 14.3 % Normal 11.0-15.0 [facility] Comment on above: Performed By: #### C BC #### [facility] [address] [place] [address] Dr. Mynor Yun Hematocrit (Bld) [Volume fraction] 47.3 % Normal 42.0-54.0 [facility] Comment on above: Performed By: #### C BC #### [facility] [address] [address] [address] Mynor Yun Hemoglobin (Bld) [Mass/Vol] 15.2 g/dL Normal 14.0-18.0 [facility] Comment on above: Performed By: #### C BC #### [facility] [address] [address] [address] Mynor Yun IG # 0.03 10e3/ul Normal 0.00-0.03 [facility] Comment on above: Performed By: #### C BC #### [facility] [address] [place] [address] Dr. Mynor Yun IG % 0.3 % Normal 0.0-0.5 [facility] Comment on above: Performed By: #### C BC #### [facility] [address] [place] [address] Dr. Mynor Yun LYMPH # 1.6 103/ul Normal 1.2-3.8 [facility] Comment on above: Performed By: #### C BC #### [facility] [address] [place] [address] Dr. Mynor Yun Lymphocytes/100 WBC (Bld) 18.4 % Critically low 20.5-60.0 [facility] Comment on above: Performed By: #### C BC #### [facility] [address] [place] [address] Dr. Mynor Yun MANUAL DIFF REQ NO Normal [facility] Comment on above: Performed By: #### C BC #### [facility] [address] [place] [address] Dr. Mynor Yun MCH (RBC) [Entitic mass] 28.8 pg Normal 25.9-34.0 [facility] Comment on above: Performed By: #### C BC #### [facility] [address] [place] [address] Dr. Mynor Yun MCHC (RBC) [Mass/Vol] 32.1 g/dL Normal 29.9-35.2 [facility] Comment on above: Performed By: #### C BC #### [facility] [address] [address] [address] Mynor Yun MCV (RBC) [Entitic vol] 89.8 fL Normal 80.0-94.0 [facility] Comment on above: Performed By: #### C BC #### [facility] [address] [address] [address] Mynor Yun MONO # 0.7 103/ul Normal 0.3-0.8 [facility] Comment on above: Performed By: #### C BC #### [facility] [address] [place] [address] Dr. Mynor Yun Monocytes/100 WBC (Bld) 8.4 % Normal 1.7-12.0 [facility] Comment on above: Performed By: #### C BC #### [facility] [address] [place] [address] Dr. Mynor Yun NEUT # 6.2 103/ul Normal 1.4-6.5 [facility] Comment on above: Performed By: #### C BC #### [facility] [address] [place] [address] Dr. Mynor Yun Neutrophils/100 WBC (Bld) 71.5 % Normal 43.0-75.0 [facility] Comment on above: Performed By: #### C BC #### [facility] [address] [place] [address] Dr. Mynor Yun Platelet mean volume (Bld) [Entitic vol] 8.7 fL Critically low 9.5-13.5 [facility] Comment on above: Performed By: #### C BC #### [facility] [address] [place] [address] Dr. Mnyor Yun PLT 263 103/ul Normal 150-450 [facility] Comment on above: Performed By: #### C BC #### [facility] [address] [place] [address] Dr. Mynor Yun RBC 5.27 106/ul Normal 4.70-6.10 [facility] Comment on above: Performed By: #### C BC #### [facility] [address] [address] [address] Mynor Yun WBC 8.7 103/ul Normal 4.0-11.0 [facility] Comment on above: Performed By: #### C BC #### [facility] [address] [address] [address] Mynor Yun LIPID PROFILEon 11-11-2021 CHOL-HDL RATIO NORM SEE BELOW Normal [facility] Comment on above: Result Comment: 3.3 - 4.4 LOW RISK 4.4 - 7.1 AVERAGE RISK 7.1 - 11.0 MODERATE RISK >11.0 HIGH RISK Performed By: #### S SCRN #### [facility] [address] [address] Dr. Mynor Yun Cholesterol [Mass/Vol] 129 mg/dL Normal <=200 Th [facility] Comment on above: Performed By: #### S SCRN #### [facility] [address] [address] [address] Mynor Yun Cholesterol in HDL [Mass/Vol] 34 mg/dL Normal [facility] Comment on above: Performed By: #### S SCRN #### [facility] [address] [address] [address] Mynor Yun Cholesterol in LDL [Mass/Vol] 82.2 mg/dL Normal [facility] Comment on above: Performed By: #### S SCRN #### [facility] [address] [address] [address] Mynor Yun Cholesterol.total/Chol esterol in HDL [Mass ratio] 3.8 {ratio} Normal [facility] Comment on above: Performed By: #### S SCRN #### [facility] [address] [address] [address] Mynor Yun HDL NORMAL > or = 60 mg/dl - LO W CARDIOVASCULAR RISK <40 mg/dl - HIGH CARDIOVASCULAR RISK Normal [facility] Comment on above: Performed By: #### S SCRN #### [facility] [address] [address] [address] Mynor Yun LDL CALC NORMAL SEE BELOW Normal [facility] Comment on above: Result Comment: <100 mg/dl OPTIMAL 100 - 129 mg/dl NEAR OR ABOVE OPTIMAL 130 - 159 mg/dl BORDERLINE HIGH 160 - 189 mg/dl HIGH >190 mg/dl VERY HIGH Performed By: #### S SCRN #### [facility] [address] [place] [address] Dr. Mynor Yun Triglyceride [Mass/Vol] 64 mg/dL Normal <=150 [facility] Comment on above: Performed By: #### S SCRN #### [facility] [address] [address] [address] Mynor Yun VLDL CALC 12.8 mg/dL Normal [facility] Comment on above: Performed By: #### S SCRN #### [facility] [address] [place] [address] Dr. Mynor Yun PROF 14(COMP METB)on 022 Albumin [Mass/Vol] 3.8 g/dL Normal 3.5-5.0 [facility] Comment on above: Performed By: #### T SAMARIA, LIPID, CMP #### [facility] [address] [place] [address] Dr. Mynor Yun Albumin/Globulin [Mass ratio] 0.9 {ratio} Normal [facility] Comment on above: Performed By: #### T SAMARIA, LIPID, CMP #### [facility] [address] [place] [address] Dr. Mynor Yun ALP [Catalytic activity/Vol] 76 U/L Normal 38-126 [facility] Comment on above: Performed By: #### T SAMARIA, LIPID, CMP #### [facility] [address] [place] [address] Dr. Mynor Yun ALT [Catalytic activity/Vol] 49 U/L Normal 21-72 [facility] Comment on above: Performed By: #### T SAMARIA, LIPID, CMP #### [facility] [address] [place] [address] Dr. Mynor Yun Anion gap [Moles/Vol] 11.2 mmol/L Normal [facility] Comment on above: Performed By: #### T SAMARIA, LIPID, CMP #### [facility] [address] [place], [place] [id number] Dr. Mynor Yun AST [Catalytic activity/Vol] 31 U/L Normal 17-59 [facility] Comment on above: Performed By: #### T SH, LIPID, CMP #### [facility] [address] [place] [address] Dr. Mynor Yun Bilirubin [Mass/Vol] 0.5 mg/dL Normal 0.2-1.3 [facility] Comment on above: Performed By: #### T SH, LIPID, CMP #### [facility] [address] [place] [address] Dr. Mynor Yun Calcium [Mass/Vol] 9.0 mg/dL Normal 8.4-10.2 [facility] Comment on above: Performed By: #### T SH, LIPID, CMP #### [facility] [address] [place] [address] Dr. Mynor Yun Chloride [Moles/Vol] 104 mmol/L Normal 98-107 [facility] Comment on above: Performed By: #### T SH, LIPID, CMP #### [facility] [address] [place] [address] Dr. Mynor Yun CO2 [Moles/Vol] 30.6 mmol/L Critically high 22.0-30.0 [facility] Comment on above: Performed By: #### T SH, LIPID, CMP #### [facility] [address] [place] [address] Dr. Mynor uYn Creatinine [Mass/Vol] 0.95 mg/dL Normal 0.66-1.25 [facility] Comment on above: Performed By: #### T SH, LIPID, CMP #### [facility] [address] [place] [address] Dr. Mynor Yun EGFR-AF PARAGUAYAN >60 Normal >=60 [facility] Comment on above: Performed By: #### T SH, LIPID, CMP #### [facility] [address] [place] [address] Dr. Mynor Yun EGFR-NON AF PARAGUAYAN >60 Normal >=60 [facility] Comment on above: Performed By: #### T SH, LIPID, CMP #### [facility] [address] [place] [address] Dr. Mynor Yun Globulin (S) [Mass/Vol] 4.3 g/dL Normal [facility] Comment on above: Performed By: #### T SH, LIPID, CMP #### [facility] [address] [place] [address] Dr. Mynor Yun Glucose [Mass/Vol] 104 mg/dL Normal 74-106 [facility] Comment on above: Performed By: #### T SAMARIA, LIPID, CMP #### [facility] [address] [place] [address] Dr. Mynor Yun Potassium [Moles/Vol] 3.8 mmol/L Normal 3.4-5.0 [facility] Comment on above: Performed By: #### T ASMARIA, LIPID, CMP #### [facility] [address] [place] [address] Dr. Mynor Yun Protein [Mass/Vol] 8.1 g/dL Normal 6.1-8.2 [facility] Comment on above: Performed By: #### T SAMARIA, LIPID, CMP #### [facility] [address] [place] [address] Dr. Mynor Yun Sodium [Moles/Vol] 142 mmol/L Normal 137-145 [facility] Comment on above: Performed By: #### T SAMARIA, LIPID, CMP #### [facility] [address] [place] [address] Dr. Mynor Yun Urea nitrogen [Mass/Vol] 11.0 mg/dL Normal 9.0-20.0 [facility] Comment on above: Performed By: #### T SAMARIA, LIPID, CMP #### [facility] [address] [place] [address] Dr. Mynor Yun Urea nitrogen/Creatinine [Mass ratio] 11.6 mg/mg Normal [facility] Comment on above: Performed By: #### T SAMARIA, LIPID, CMP #### [facility] [address] [place] [address] Dr. Mynor Yun TSHon 11-11-2021 TSH 1.612 uIU/mL Normal 0.470-4.680 [facility] Comment on above: Performed By: #### T SH, LIPID, CMP #### [facility] [address] [place], [place] [address] Dr. Mynor Yun TSH RANGE SEE BELOW Normal [facility] Comment on above: Result Comment: <0.3 4 UIU/ml HYPERTHYROID 0.34-5.60 UIU/ml EUTHYROID >5.60 UIU/ml HYPOTHYROID Performed By: #### T SH, LIPID, CMP #### [facility] [id number] Mynor Yun Vital Signs Date Time Vital Sign Value Performing Clinician Faci lity 12-09-2024 09:00-0400 Body height 179.1 cm Iris ALBARRAN [facility] 11-28-2024 09:48-0400 Body height 179.1 cm Nury Potter MD Work Phone: [facility] 11-28-2024 09:48-0400 Body mass index (BMI) [Ratio] 55.17 kg/m2 Nury Potter MD Work Phone: [facility] 11-28-2024 09:48-0400 Body weight 176.9 kg Nury Potter MD Work Phone: [facility] 11-05-2024 10:17-0500 Body height 175.3 cm Pedro Conte DPM Work Phone: [facility] 11-05-2024 10:17-0500 Body mass index (BMI) [Ratio] 55.38 kg/m2 Pedro Rusher DPM Work Phone: [facility] 11-05-2024 10:17-0500 Body weight 170.1 kg Pedro Rusher DPM Work Phone: [facility] 10-08-2024 10:31-0500 Body height 175.3 cm Pedro Rusher DPM Work Phone: [facility] 10-08-2024 10:31-0500 Body mass index (BMI) [Ratio] 55.38 kg/m2 Pedro Rusher DPM Work Phone: [facility] 10-08-2024 10:31-0500 Body weight 170.1 kg Pedro Conte DPM Work Phone: [facility] Encounters Encounter Date Encounter Type Care Provider Facility Start: 12-09-2024 End: 12-09-2024 Telemedicine consultation with patient Iris Quinn [facility] Comment on above: Dietary counseling a nd surveillance (Primary Dx); Morbid obesity ([facility]); History of sleeve gastrectomy Start: 12-09-2024 End: 12-09-2024 ambulatory [facility] Start: 12-01-2024 End: 12-01-2024 ambulatory [facility] Start: 11-28-2024 End: 11-28-2024 Office outpatient new 45 minutes Nury Potter MD Work Phone: [facility] Comment on above: History of sleeve ga strectomy (Primary Dx); Morbid obesity with BMI of 50.0-59.9, adult ([facility]) Start: 11-28-2024 End: 11-28-2024 ambulatory [facility] Start: 11-26-2024 End: 11-26-2024 ambulatory PEDRO CONTE Not Available Start: 11-05-2024 End: 11-05-2024 Bamboo flowsheet Pedro Conte DPM Work Phone: [facility] Start: 11-05-2024 End: 11-05-2024 Bamboo flowsheet Pedro Conte DPM Work Phone: [facility] Start: 11-05-2024 End: 11-05-2024 ambulatory PEDRO CONTE Not Available Start: 11-05-2024 End: 11-05-2024 Postop follow up visit related to original px Pedro Conte DPM Work Phone: [facility] Comment on above: Valgus deformity, no t elsewhere classified, right ankle (Primary Dx); Valgus deformity, not elsewhere classified, left ankle; Instability of left foot joint; Instability of right foot joint; Leg length discrepancy; Posterior tibial tendon dysfunction, bilateral Start: 10-08-2024 End: 10-08-2024 Bamboo flowsheet Pedro Conte DPM Work Phone: [facility] Start: 10-08-2024 End: 10-08-2024 Bamboo flowsheet Pedro Conte DPM Work Phone: [facility] Start: 10-08-2024 End: 10-30-2024 Telephone encounter Emily Kaur MA [facility] Comment on above: [facility] Start: 10-08-2024 End: 10-08-2024 Office outpatient new 30 minutes Pedro Conte DPM Work Phone: [facility] Comment on above: Valgus deformity, no t elsewhere classified, right ankle (Primary Dx); Valgus deformity, not elsewhere classified, left ankle; Instability of left foot joint; Instability of right foot joint; Leg length discrepancy Start: 10-08-2024 End: 10-08-2024 ambulatory PEDRO CONTE Not Available Start: 09-01-2024 End: 09-01-2024 ambulatory Wilbert Buckner MD Facility: [place] Start: 07-21-2024 End: 07-21-2024 ambulatory Wilbert Buckner MD Facility: [place] Start: 06-30-2024 End: 06-30-2024 ambulatory Wilbert Buckner MD Facility: [place] Start: 03-10-2024 End: 03-10-2024 ambulatory Wilbert Buckner MD Facility: [place] Start: 02-25-2024 End: 02-25-2024 ambulatory Wilbert Buckner MD Facility: [place] Start: 02-18-2024 End: 02-18-2024 ambulatory Wilbert Buckner MD Facility: [place] Start: 01-23-2024 End: 01-26-2024 ambulatory [facility] Start: 01-16-2024 End: 01-16-2024 ambulatory Effie L Torsten Facility:[facility] [place] Start: 01-14-2024 End: 01-14-2024 ambulatory Effie L Torsten Facility:[facility] [place] Start: 01-09-2024 End: 01-09-2024 ambulatory Effie L Torsten Facility:[facility] [place] Start: 12-03-2023 End: 12-03-2023 ambulatory Wilbert Benavidesytlynne Buckner MD Facility: [place] Start: 11-05-2023 End: 11-05-2023 ambulatory Wilbert Buckner MD Facility: [place] Start: 08-23-2023 End: 08-23-2023 Lab Drop off Effie L Torsten [facility] Start: 08-23-2023 End: 08-23-2023 ambulatory Effie L Torsten Facility:[facility] Start: 07-26-2023 End: 07-26-2023 ambulatory Effie L Torsten Facility:[facility] [place] Start: 06-21-2023 End: 06-21-2023 ambulatory Effie L Torsten Facility:[facility] [place] Start: 05-22-2023 End: 05-22-2023 ambulatory Effie L Torsten Facility:[facility] [place] Start: 04-24-2023 End: 04-24-2023 ambulatory Effie L Torsten Facility:[facility] [place] Start: 03-19-2023 End: 03-19-2023 ambulatory Effie L Torsten Facility:[facility] Start: 03-19-2023 End: 03-19-2023 Lab Drop off Effie L Torsten [facility] Start: 03-19-2023 End: 03-19-2023 ambulatory Effie L Torsten Facility:[facility] [place] Start: 03-15-2023 ambulatory Effie Torsten Facility:[facility] [place] Start: 07-28-2022 End: 07-28-[address] LULU BLANK Facility:[facility] Start: 02-01-2022 End: 02-02-[address] LULU BLANK Facility:[facility] Start: 11-15-2021 Encounter for genera l adult medical examination without abnormal findings DR LULU BLANK [facility] Start: 11-11-2021 End: 11-12-[address] LULU BLANK Facility:[facility] Start: 11-11-2021 End: 11-12-2021 Encounter for general adult medical examination without abnormal findings DR LULU BLANK Facility:[facility] Start: 11-10-2021 End: 11-11-2021 ambulatory MAZIN CANO Facility:[facility] Procedures Date Procedure Procedure Detail Performing Clinician Gastric sleeve Effie Sarmiento Comment on above: 2009 Plan of Treatment Date Care Activity Detail Author Start: 12-09-2025 Adult BMI Follow Up Plan Adult BMI Follow Up Plan [facility] Start: 11-28-2025 Adult BMI Screening Adult BMI Screen ing [facility] Start: 05-11-2025 Influenza vaccination Influenza Vacc ine [facility] Start: 01-23-2025 End: 01-23-2025 Patient encounter procedure 01/23/2025 9:30 AM EDT [facility] [address] [place] [address] Nury Potter MD [address] [place], [place] [id number] [facility] Start: 01-08-2025 End: 01-08-2025 Telemedicine consultation with patient 01/08/2025 9:00 AM EDT Telemedicine [facility] [address] [address] Iris Quinn LD [facility] Start: 12-09-2024 End: 12-09-2024 Telemedicine consultation with patient 12/09/2024 9:00 AM EDT Telemedicine [facility] [address] [address] Iris Quinn LD [facility] Start: 11-11-2024 End: 11-11-2024 Patient encounter procedure 11/11/2024 4:45 PM EST Office Visit [facility] [address] [place] [address] Lanny Guthrie DO [address] [place] [address] [facility] Start: 11-05-2024 End: 11-05-2024 Patient encounter procedure 11/05/2024 10:00 AM EST Office Visit [facility] [address] [place] [address] Pedro Conte, MEAGAN [address] [place] [address] [facility] Start: 10-08-2024 End: 10-08-2024 Patient encounter procedure 10/08/2024 10:45 AM EST Office Visit [facility] [address] [place] [address] Pedro Conte DPM [address] [place] [address] Arrived [facility] Comment on above: Arrived Start: 05-11-2024 COVID-19 Vaccine () COVID-19 Vaccine () [facility] Start: 1996 DTaP,Tdap and Td Vac cines (1 - Tdap) DTaP,Tdap and Td Vaccines (1 - Tdap) [facility] Start: 1995 Adult BMI Follow Up Plan Adult BMI Follow Up Plan [facility] Start: 1989 Depression Screening Depression Scre ening [facility] Start: 1989 Tobacco Screening Tobacco Screening [facility] Start: 1977 Screening for malign ant neoplasm of colon [facility] End: 11-28-2025 CBC W Auto Differential panel - Blood CBC auto differential Lab Routine History of sleeve gastrectomy 1 Occurrences starting 11/28/2024 until 11/28/2025 [employer] Phone: Comment on above: 1 Occurrences starti ng 11/28/2024 until 11/28/2025 End: 11-28-2025 Cyanocobalamin vitamin b-12 Vitamin B12 Lab Routine History of sleeve gastrectomy 1 Occurrences starting 11/28/2024 until 11/28/2025 [employer] Comment on above: 1 Occurrences starti ng 11/28/2024 until 11/28/2025 End: 11-28-2025 Hemoglobin A1c/Hemoglobin.total in Blood Hemoglobin A1c Lab Routine History of sleeve gastrectomy 1 Occurrences starting 11/28/2024 until 11/28/2025 [employer] Comment on above: 1 Occurrences starti ng 11/28/2024 until 11/28/2025 End: 11-28-2025 Insulin, Free and Total, Serum Insulin, Free and Total, Serum Lab Routine History of sleeve gastrectomy 1 Occurrences starting 11/28/2024 until 11/28/2025 [employer] Comment on above: 1 Occurrences starti ng 11/28/2024 until 11/28/2025 End: 11-28-2025 Iron [Mass/volume] in Serum or Plasma Iron Lab Routine History of sleeve gastrectomy 1 Occurrences starting 11/28/2024 until 11/28/2025 [employer] Comment on above: 1 Occurrences starti ng 11/28/2024 until 11/28/2025 End: 11-28-2025 Liver panel Liver panel Lab Routine History of sleeve gastrectomy 1 Occurrences starting 11/28/2024 until 11/28/2025 [facility] Comment on above: 1 Occurrences starti ng 11/28/2024 until 11/28/2025 End: 11-28-2025 Parathyroid Hormone, intact Parathyroid Hormone, intact Lab Routine History of sleeve gastrectomy 1 Occurrences starting 11/28/2024 until 11/28/2025 [employer] Comment on above: 1 Occurrences starti ng 11/28/2024 until 11/28/2025 End: 11-28-2025 Testosterone, Total and Free, S Testosterone, Total and Free, S Lab Routine History of sleeve gastrectomy 1 Occurrences starting 11/28/2024 until 11/28/[address] [facility] Comment on above: 1 Occurrences starti ng 11/28/2024 until 11/28/2025 End: 11-28-2025 Thyrotropin [Units/volume] in Serum or Plasma TSH Lab Routine History of sleeve gastrectomy 1 Occurrences starting 11/28/2024 until 11/28/[address] [facility] Comment on above: 1 Occurrences starti ng 11/28/2024 until 11/28/2025 End: 11-28-2025 Vitamin D 25 hydroxy Vitamin D 25 hydroxy Lab Routine History of sleeve gastrectomy 1 Occurrences starting 11/28/2024 until 11/28/[address] [facility] Comment on above: 1 Occurrences starti ng 11/28/2024 until 11/28/2025 Immunizations Immunization Date Immunization Notes Care Provider [facility] 07-08-2024 influenza, seasonal, injectable, preservative free Pedro Rusher DPM Work Phone: [facility] 07-08-2024 influenza virus vacc ine, unspecified formulation Iris ALBARRAN [facility] 05-31-2023 influenza virus vacc ine, unspecified formulation Effie Torsten [facility] 05-31-2023 influenza, injectabl e, quadrivalent, preservative free Pedro Rusher DPM Work Phone: [facility] 06-07-2022 influenza virus vacc ine, unspecified formulation Effie Torsten [facility] 06-07-2022 influenza, injectabl e, quadrivalent, preservative free Pedro Rusher DPM Work Phone: [facility] 11-12-2020 SARS-CoV-2 (COVID-19 ) mRNA BNT-162b2 vax Effie Torsten [facility] 10-22-2020 SARS-CoV-2 (COVID-19 ) mRNA BNT-162b2 vax Effie Torsten [facility] 03-10-2019 pneumococcal polysaccharide vaccine, 23 valent fEfie Sarmiento [facility] 08-18-2009 novel influenza-H1N1 -09, preservative-free, injectable Pedro MUNOZM Work Phone: [facility] Payers Date Payer Category Payer Unknown 2022 [facility] BCBS [id number] 2022 [facility] Managed Care - PPO ANTHEM [id number] 2022 Unknown [id number] 2019 Unknown [id number] 2013 Medicare 1977 Unknown [id number] 2.16.840.1.067695.3.579.2. 593 1977 Unknown [id number] 2.16.840.1.323759.3.579.2. 59 1977 Unknown [id number] 2.16.840.1.905194.3.579.2. 593 1977 Unknown [id number] 2.16.840.1.445660.3.579.2. 59 1977 Unknown [id number] 2.16.840.1.831049.3.579.2. 182 1977 Unknown [id number] 2.16.840.1.855875.3.579.2. 182 1977 Unknown [id number] 2.16.840.1.441305.3.579.2 72 1977 Unknown [id number] 2.16.840.1.274578.3.579.2 1977 Unknown [id number] 2.16.840.1.557282.3.579.2 72 1977 Unknown [id number] 2.16.840.1.506288.3.579.2 1977 Unknown [id number] 2.16.840.1.227349.3.579.2 72 1977 Unknown [id number] 2.16.840.1.314546.3.579.2 72 1977 Unknown [id number] 2.16.840.1.301990.3.579.2 72 1977 Unknown [id number] 2.16.840.1.883707.3.579.2 1977 Unknown [id number] 2.16.840.1.136885.3.579.2. 72 1977 Unknown [id number] 2.16.840.1.077769.3.579.2 1977 Unknown [id number] 2.16.840.1.517767.3.579.2. 727 1977 Unknown [id number] 2.16.840.1.233303.3.579.2. 196 1977 Unknown [id number] 2.16.840.1.036370.3.579.2. 196 1977 Unknown [id number] 2.16.840.1.320182.3.579.2. 196 1977 Unknown [id number] 2.16.840.1.428224.3.579.2. 196 1977 Unknown [id number] 2.16.840.1.040412.3.579.2. 196 1977 Unknown [id number] 2.16.840.1.507358.3.579.2. 196 1977 Unknown [id number] 2.16.840.1.265396.3.579.2. 196 1977 Unknown [id number] 2.16.840.1.885412.3.579.2. 196 1977 Unknown [id number] 2.16.840.1.171267.3.579.2. 9 1977 Unknown [id number] 2.16.840.1.920537.3.579.2. 1259 1977 Unknown [id number] 2.16.840.1.985092.3.579.2. 1259 1977 Unknown [id number] 2.16.840.1.553861.3.579.2. 128 1977 Unknown [id number] 2.16.840.1.990382.3.579.2. 1285 1977 Unknown [id number] 2.16.840.1.148911.3.579.2. 1286 1959 Medicare [id number] 1959 Unknown [id number] Social History Date Type Detail Facility Start: 03-19-2023 End: 08-23-2023 Tobacco smoking status Ex-smoker (finding) Jessica Flacoelissa [facility] Tobacco smoking status Never [facility] Start: 02-19-2019 End: 04-11-2023 Sex Assigned At Male Lul Echavarria [facility] Start: 04-05-2023 Tobacco smoking stat us [facility] Never smoked tobacco [facility] Start: 04-05-2023 Tobacco use and exposure Smokeless tobacco non-user [facility] Start: 10-08-2024 End: 11-05-2024 Alcoholic beverage intake Ex-drinker (finding) [facility] Start: 02-19-2019 End: 04-11-2023 History of Social function [facility] Start: 1977 Sex assigned at Not on file [facility] Tobacco smoking stat [facility] Tobacco smoking consumption unknown [facility] Start: 04-15-2015 Sex Male (finding) [facility] Clinical Notes 11-10-2021 to 12-09-2024 DEION Lerma - 12/09/2024 9:00 AM EDTPatient Marisol Potter MD - 11/28/2024 9:30 AM Ed Conte DPM - 11/05/2024 10:00 AM Anthony Conte DPM - 10/08/2024 10:45 AM EST Note Date & Type Note Facility 12-09-2024 History of Present illness Narrative Bariatric Medical Nutrition Therapy Nutritional Assessment/Education Session: Post-op Rakesh Piña is a 49 y.o. male who presents for medical nutritional therapy after weight loss surgery. Video Visit via Real-time Synchronous Audiovisual Provider Location: [facility]PART[facility] OF [facility] [address] [place] [phone] Patient Location: Waiting room in [place] (for father's surgery) Video Visit Consent Statement: I discussed risks, benefits, and alternatives of a real-time synchronous audiovisual consultation with the patient (and any accompanying persons) including the risks that the patient's personal health details and medical records will be discussed over real-time, synchronous, interactive video/audio/telecommunication technology, the visit will not be recorded without the express consent of both the provider and the patient, and that there are some limitations compared to [id number] evaluations. The patient consented to the presence of additional virtual and/or in-person participants. We elected to proceed. Barrier learning assessment: Yes Weight: unable to get one Rakesh had a sleeve gastrectomy in [place] in 2009. He received minimal nutrition information during that time and is motivated to get back on track with nutrition education to help with weight loss. Rakesh would like to get down to 250 pounds. He feels his biggest struggle with eating is trying to meal plan with other people in home. He feels hungrier on weekends. He is eating over 20 minutes. He tries to finish meals. Rakesh's meals vary in size. He does eating and drink together. Diet Recall: 4:45 AM (wake)- 9/10 PM (bed) Breakfast Snack 11 AM Lunch 1 PM Snack Dinner 6 PM Snack Premier protein shake Cheese OR Boiled egg OR Slim tonya OR salad Chicken bake, salad with cheese and ranch Frequency of eating out: 1-2x/week Beverage Intake: water (90-120 oz), diet pepsi (1 bottle a day) Physical Activity: gym (treadmill, bike, some strength) for 30 minutes 3-4x/week Vitamins: fish oil, cranberry, flintstone (2 a day) Start adding in calcium and B12 daily Eat every 3-4 hours, breakfast within 2 hours of waking Focus on protein with vegetables & fruits for meals Prepare extra of foods so children and others in home will not eat all or what he prepares or discuss with them certain containers of food are just for him Consider tracking protein and food intake on baritastic Keep meals to 1 cup, eating slowly over 30 minutes Avoid eating and drinking together Gradually increase exercise to 150 minutes per week cardio and strength Nutrition Diagnosis: Obesity as evidenced by BMI. Body mass index is 55.17 kg/m . Nutrition Intervention: Nutrition education Discussed diet and behavioral changes needed to be successful with weight loss. Pt is to work towards making medical nutrition therapy goals part of daily habits. 1) Eat 4 small meals per day about 3-4 hours apart. Do not skip breakfast. Do not snack at night time. Discussed meal planning and meal prepping. 2) Avoid high sugar and high fat foods. Read food labels and avoid foods/beverages with > 5 grams sugar per serving and < 3 grams fat per serving. 3) Eat protein-rich food at each meal followed by vegetables, then fruit, while limiting starches. 4) Prevent development of nutrient deficiencies. 1) 2 multivitamins with iron daily or 1 vitamin daily. 2) 2021-7631 mg calcium in divided doses (2x/day) for sleeve and gastric bypass, 8553-3399 mg in divided doses (3x/day) for SADS and distalization of bypass. Calcium Citrate can be taken with or without meals, however Calcium Carbonate should be consumed with meals. Take at least 2 hours before or after taking iron, since calcium will decrease iron absorption. 3) 350-1000 mcg oral vitamin B12 daily or 1000 mcg monthly injectable. 5) Sip 64 ounces of liquids between meals not with meals. Avoid drinks with sugar, alcohol and carbonation. 6) Eat meals very slowly, approximately 30 minutes per meal. Stop eating when feel full. 7) Avoid emotional eating / mindless eating. 8) Exercise 3-5 times per week. 9) Encouraged accountability with her diet and lifestyle goals. Discussed tracking intake in a phone stevenson and having weekly weigh-ins. Written information on all discussed has been provided within the [facility] Bariatric Guide. My contact name and number provided if questions or concerns arise. Nutrition Monitoring: To monitor weight to show progress. Start time: 0904 End time: 0950 documented in this encounter [facility] 12-09-2024 Instructions DEION Lerma - 12/09/2024 9:00 AM EDT Read the [facility] Bariatric Guide. If you re looking for general health and wellness resources, please visit [email or web address] History of Present illness Narrative [facility] GENERAL SURGERY [address] [place] [id number] [facility] SURGICAL WEIGHT LOSS PROGRAM INITIAL EVALUATION Patient: Rakesh Piña Service Date: 11/28/2024 Chief complaint: Wants help with weight loss 15 years after sleeve gastrectomy in [place] The patient is a 49 y.o. year old male with morbid obesity, who stands Height: 179.1 cm (5' 10.5 ) tall with a weight of Weight: (!) 176.9 kg (390 lb) , resulting in a BMI of Body mass index is 55.17 kg/m .. The patient suffers from comorbidities as a result of morbid obesity, including: Knee pain, Back pain, GERD, and Sleep Apnea. He has suffered from obesity for many years, with their heaviest weight being over 500 lbs. The patient had a sleeve gastrectomy in [place] in 2009. Two days after surgery he began having fever and chills and after workup was found to have an intra-abdominal abscess. He was seen at the [facility] by Crystal Parsons MD and underwent an exploratory laparotomy with washout of pelvic abscess, at the time his abdomen was left open and closed after a few days. He had multiple drains in place at the time. Following that he developed a large incisional ventral hernia that was closed with mesh and concurrent panniculectomy. The patient did a decent job of keeping the weight off until he broke his leg several years ago. He has been putting weight back on and would like to have a recent on his diet to try to lose more weight. In the past he has been treated for low vitamin levels and low testosterone levels with injections. The testosterone injections did cause some side effects. We talked about checking testosterone level and potentially starting a testosterone cream. He has also been on Adipex in the past for weight loss, however it gave him horrible headaches. He is hesitant to try any GLP 1 medications due to the side effects. We discussed checking hemoglobin A1c and insulin levels and consider metformin pending the results. He has joined a gym and is mostly walking and doing light cardio. We discussed adding in dedicated resistance training at least 2 days a week based on the recommendations from the [employer]. He is not eager to alegre into another surgery given his past experience. Medical History: Past Medical History: Diagnosis Date Autonomic dysfunction Depression GERD (gastroesophageal reflux disease) Hypercholesteremia Lymphedema RODRIGUEZ (nonalcoholic steatohepatitis) KWAN (obstructive sleep apnea) Surgical History: Past Surgical History: Procedure Laterality Date EXPLORATORY LAPAROTOMY intraabdominal abscess/bowel perforation following sleeve in [place]; open abdomen LAPAROSCOPY GASTRECTOMY PARTIAL / TOTAL 2010 Sleeve in [place] VENTRAL HERNIA REPAIR 2012 Family History: Family History Problem Relation Age of Onset Heart failure Father Cancer Sister Diabetes Maternal Grandfather Social History: Former smoker, quit in 2009 No current alcohol use Current Med List: No current outpatient medications on file. celecoxib (CeleBREX) 50 MG capsule, Take 50 mg by mouth in the morning and 50 mg before bedtime., Disp: , Rfl: CRANBERRY PO, Take by mouth, Disp: , Rfl: famotidine (Pepcid) 20 MG tablet, Take 20 mg by mouth at bedtime., Disp: , Rfl: fluticasone (Flonase) 50 MCG/ACT nasal spray, Administer 2 sprays into each nostril 1 (one) time each day at the same time., Disp: , Rfl: gabapentin (Neurontin) 100 MG capsule, Take by mouth, Disp: , Rfl: Meclizine HCl 25 MG chewable tablet, Chew 1 tablet 1 (one) time each day at the same time. (Patient not taking: Reported on 10/08/2024), Disp: , Rfl: metroNIDAZOLE (Flagyl) 500 MG tablet, Take 500 mg by mouth in the morning and 500 mg in the evening and 500 mg before bedtime. (Patient not taking: Reported on 10/08/2024), Disp: , Rfl: ofloxacin (Ocuflox) 0.3 % ophthalmic solution, 4 drops every 8 (eight) hours. RT ear (Patient not taking: Reported on 10/08/2024), Disp: , Rfl: omega-3 (FISH OIL) 300 MG capsule, Take by mouth Daily, Disp: , Rfl: omeprazole (PriLOSEC) [address] capsule, Take 40 mg by mouth in the morning. Take before meals. (Patient not taking: Reported on 10/08/2024), Disp: , Rfl: PARoxetine (Paxil) 10 MG tablet, Take 10 mg by mouth 1 (one) time each day at the same time., Disp: , Rfl: phentermine (Adipex-P) 37.5 MG tablet, Take 37.5 mg by mouth in the morning. Take before meals. (Patient not taking: Reported on 10/08/2024), Disp: , Rfl: tiZANidine (Zanaflex) 2 MG capsule, Take by mouth as needed at bedtime for muscle spasms, Disp: , Rfl: SOCIAL: This patient is accompanied by his for the evaluation today. Their functional status is independent. Comprehension Ability to grasp concepts and respond to questions: [x] High [] Medium [] Low Motivation [x] Asks Questions; eager to learn [x] Needs education [] Extreme anxiety [] uncooperative [] Denies need for education REVIEW OF SYSTEMS: Do you feel sleepy during the day? [x] Yes [] No Do you get short of breath when walking up two flights of stairs? [x] Yes [] No Do you get chest pains when walking up two flights of stairs? [] Yes [x] No Do you suffer from back pain? [x] Yes [] No Do you suffer from knee pain? [x] Yes [] No Do you or have you had any of the following? Cardiovascular YES NO Respiratory YES NO High Blood Pressure [] [x] COPD [] [x] Heart Attack [] [x] TB/Positive skin Test [] [x] Congestive Heart Failure [] [x] Obstructive Sleep Apnea [x] [] Coronary Artery Disease [] [x] Asthma [] [x] Circulation Problems [] [x] Activity Intolerance [x] [] Gastrointestinal YES NO Peripheral Vascular Disease [] [x] Gastric Problems [] [x] Colorectal problems [] [x] Hematological YES NO Ulcer disease [] [x] Bleeding Tendencies [] [x] Liver disease [x] [] Blood Transfusion last 30d [] [x] Gallstones [] [x] Anemia [] [x] Refulx or Heartburn [x] [] Blood Clots [] [x] High Cholesterol [] [x] Muscoloskeletal YES NO High Triglycerides [] [x] Joint Limitations [] [x] Muscle Weakness [] [x] Eyes, Ears, Nose, Throat YES NO Multiple Sclerosis [] [x] Cataracts [] [x] Arthritis [x] [] Glasses [] [x] Blurred Vision [] [x] Cancer [] [x] Hearing Aids [] [x] Type: Ringing in Ears [] [x] Difficulty Swallowing [] [x] Encodrine YES NO Diabetes [] [x] Neurological YES NO Thyroid [] [x] Stroke [] [x] Seizure [] [x] Psychiatric Disorder YES NO Dizziness/Blackouts/Fainting [] [x] Depression [x] [] Memory Impairement [] [x] Bipolar [] [x] Parkinson's [] [x] Anxiety disorder [] [x] Genitourinary/Metal Room Dental Technician YES NO Skin Intact [x] [] Urinary Infection [] [x] Stones [] [x] Sleep YES NO Kidney Disease [] [x] Excessive daytime sleepiness [x] [] Incontinent [] [x] Snoring [x] [] Irregular menstrual cycles [] [] Unrefreshed sleep [x] [] Possibly ? [] [] Other: Date of LMP: Preferred location: PREVIOUS ANESTHESIA Has any family member had a problem with anesthesia in the past? [x] No [] Yes If yes, describe: Have you had a problem with anesthesia in the past? [x] No [] Yes If yes, describe: Do you have any difficulty moving your head [id number]? [x] No [] Yes Do you have difficulty opening or closing your jaw? [x] No [] Yes PRESENT ILLNESS: Weight Parameters Initial Bariatric Consult 11/28/2024 Weight: (!) 176.9 kg (390 lb) Height: 179.1 cm (5' 10.5 ) Body mass index is 55.17 kg/m . IMMUNIZATION STATUS Immunization History Administered Date(s) Administered COVID-19, mRNA, LNP-S, PF, 30mcg/0.3mL Dose 10/22/2020, 11/12/2020 PHYSICAL EXAMINATION: Ht 179.1 cm (5' 10.5 ) Wt (!) 176.9 kg (390 lb) BMI 55.17 kg/m General Appearance: Alert, cooperative, no distress, appears stated age Head: Normocephalic, without obvious abnormality, atraumatic Eyes: No scleral icterus Ears: Normal external ear, both ears Nose: Nares normal, septum midline Throat: Lips, mucosa normal Neck: Supple, symmetrical, trachea midline Lungs: Respirations unlabored Chest Wall: No tenderness or deformity Heart: Regular rate Breast Exam: Deferred. Abdomen: Soft, non-tender, nondistended, panniculectomy incision well healed, no palpable hernia Genitalia: Deferred. Rectal: Deferred. 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 Alert and oriented. Follows commands and moves all 4. Ht 179.1 cm (5' 10.5 ) Wt (!) 176.9 kg (390 lb) BMI 55.17 kg/m Physical Exam RECOMMENDATIONS: Due to the patient's already complex surgical history, I do not recommend a revisional surgery at this time. The patient is in agreement. I recommend dietary education as he did not have any when he had his initial sleeve gastrectomy. I recommend adding in resistance training to his cardio routine at the gym. We will also check lab work including testosterone levels, insulin levels, hemoglobin A1c, and vitamin levels. PLAN: Assessment Plan Schedule with dietitian for nutritional education Continue exercise, recommended 150 minutes per week with at least 2 days including resistance training We will check lab work including testosterone levels, insulin levels, hemoglobin A1c, and vitamin levels We discussed potentially starting medications including testosterone and possibly metformin versus GLP 1 pending his lab results We will follow up in the office once labs are complete. Please note that this chart was generated using voice recognition M*Modal dictation software. Although every effort was made to ensure the accuracy of this automated ms sql dba, some errors in ms sql dba may have occurred. [facility] History of Present illness Narrative Images from the original note were not included. Subjective Patient ID: Rakesh Piña is a 49 y.o. male who presents for Scan Orthotics (Rakesh Piña is a 49 y.o. male who presents to be scanned Orthotics SS: 10.5W). HPI Established patient returns to clinic for custom orthotic scanning. Review of Systems Constitutional: Negative for activity change and appetite change. Respiratory: Negative for chest tightness and shortness of breath. Cardiovascular: Negative for chest pain. Musculoskeletal: Positive for arthralgias and gait problem. Skin: Negative for color change and wound. Neurological: Negative for weakness and numbness. Psychiatric/Behavioral: Negative for agitation and behavioral problems. Hematological: Does not bruise/bleed easily. Endocrine: Negative for cold intolerance and heat intolerance. Allergic/Immunologic: Negative for immunocompromised state. Past medical History Past Medical History: Diagnosis Date Allergic rhinitis Autonomic dysfunction COVID-19 03/2020 Depression ([facility]) ETD (Eustachian tube dysfunction), bilateral H/O gastric bypass Stomach bypass followed by numerous surgeries to treat infection and sepsis History of medical problems Kt Excretor Hoarseness Hypercholesterolemia (CMS/HCC) Labyrinthitis chronic LPRD (laryngopharyngeal reflux disease) Lymphedema RODRIGUEZ (nonalcoholic steatohepatitis) KWAN (obstructive sleep apnea) Otorrhea of right ear Perforation of right tympanic membrane Restrictive lung disease secondary to weight Sinus tachycardia Sinusitis Vitamin D deficiency Medications Current Outpatient Medications: celecoxib (CeleBREX) 50 MG capsule, Take 50 mg by mouth in the morning and 50 mg before bedtime., Disp: , Rfl: CRANBERRY PO, Take by mouth, Disp: , Rfl: famotidine (Pepcid) 20 MG tablet, Take 20 mg by mouth at bedtime., Disp: , Rfl: fluticasone (Flonase) 50 MCG/ACT nasal spray, Administer 2 sprays into each nostril 1 (one) time each day at the same time., Disp: , Rfl: gabapentin (Neurontin) 100 MG capsule, Take by mouth, Disp: , Rfl: Meclizine HCl 25 MG chewable tablet, Chew 1 tablet 1 (one) time each day at the same time. (Patient not taking: Reported on 10/08/2024), Disp: , Rfl: metroNIDAZOLE (Flagyl) 500 MG tablet, Take 500 mg by mouth in the morning and 500 mg in the evening and 500 mg before bedtime. (Patient not taking: Reported on 10/08/2024), Disp: , Rfl: ofloxacin (Ocuflox) 0.3 % ophthalmic solution, 4 drops every 8 (eight) hours. RT ear (Patient not taking: Reported on 10/08/2024), Disp: , Rfl: omega-3 (FISH OIL) 300 MG capsule, Take by mouth Daily, Disp: , Rfl: omeprazole (PriLOSEC) [address] capsule, Take 40 mg by mouth in the morning. Take before meals. (Patient not taking: Reported on 10/08/2024), Disp: , Rfl: PARoxetine (Paxil) 10 MG tablet, Take 10 mg by mouth 1 (one) time each day at the same time., Disp: , Rfl: phentermine (Adipex-P) 37.5 MG tablet, Take 37.5 mg by mouth in the morning. Take before meals. (Patient not taking: Reported on 10/08/2024), Disp: , Rfl: tiZANidine (Zanaflex) 2 MG capsule, Take by mouth as needed at bedtime for muscle spasms, Disp: , Rfl: Allergies Other Past Surgical History Past Surgical History: Procedure Laterality Date GASTRIC BYPASS VENTRAL HERNIA REPAIR 11/2012 Family History Family History Problem Relation Name Age of Onset Heart failure Father Cancer Sister Diabetes Maternal Grandfather Objective Physical Exam Constitutional: Appearance: He is obese. HENT: Head: Normocephalic and atraumatic. Cardiovascular: Pulses: Normal pulses. Pulmonary: Effort: Pulmonary effort is normal. No respiratory distress. Abdominal: Palpations: There is no mass. Musculoskeletal: Cervical back: No rigidity. Comments: Weightbearing examination reveals pes planus morphology with slight metatarsus adductus appearance. No isolated or pinpoint tenderness. Increased excursion of the subtalar joint. Muscle strength 5/5 for all quadrants. Ankle dorsiflexion 0 degrees with the knee extended, flexed. Right ASIS to the ground-87 cm Left ASIS to the ground-93 cm Skin: Capillary Refill: Capillary refill takes less than 2 seconds. Findings: No lesion or rash. Neurological: Mental Status: He is alert. Comments: No loss of protective sensation, gross sensation intact. Psychiatric: Mood and Affect: Mood normal. Behavior: Behavior normal. Assessment/Plan ICD-10-CM 1. Valgus deformity, not elsewhere classified, right ankle M21.071 2. Valgus deformity, not elsewhere classified, left ankle M21.072 3. 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 Instability of right foot joint M25.374 5. Leg length discrepancy M21.70 6. Posterior tibial tendon dysfunction, bilateral M76.821 M76.822 Patient was examined and evaluated. Gait and biomechanical exam was performed. Patient is an excellent candidate for custom orthotic devices which are medically necessary due to Posterior tibial tendon dysfunction bilaterally with valgus instability. He also has a limb length discrepancy that would benefit from custom lift built into the orthotic device. Patient was casted for orthotics utilizing three-dimensional scanner technology with the foot held in neutral suspension technique with slight plantarflexion of the 1st ray. Orthotic prescription was filled out appropriately and will be sent to the lab. We will have the patient follow-up for orthotic pickup and trialing. This note was created with the assistance of a speech recognition program. While intending to generate a timely document that accurately reflects the content of the visit, no guarantee can be provided that every grammatical or spelling mistake has been or will be identified or corrected. Thank you for your understanding. Pedro Conte DPM documented in this encounter [facility] 10-21-2024 Telephone encounter Note [id number] is scheduled for October 28 at 4:45 pm. They will call our office for the meeting [facility] 10-21-2024 Miscellaneous Notes [id number] is scheduled for October 28 at 4:45 pm. They will call our office for the meeting Pt was in this morning, Dr. Conte gave him the orthotic form. Rakesh called his insurance and they stated anything over $750 needs precert, and that they cover 1 pair of custom orthotics every 2 calendar years. Told him we would call him with info of est. And if precert was approved. Thanks documented in this encounter [facility] 10-08-2024 Telephone encounter Note Pt was in this morning, Dr. Conte gave him the orthotic form. Rakesh called his insurance and they stated anything over $750 needs precert, and that they cover 1 pair of custom orthotics every 2 calendar years. Told him we would call him with info of est. And if precert was approved. Thanks [facility] 10-08-2024 History of Present illness Narrative Images from the original note were not included. Subjective Patient ID: Rakesh Piña is a 49 y.o. 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 Pt states his current ones broke, and is wanting to get new ones. Pt has had these orthotics for about 5 years. Pt did not bring orthotics with him today. SS: 10.5W). HPI This is a new patient who presents to clinic to discuss custom orthotics. Patient states that he has had custom orthotics for a proximally 10 years ago. He states that he has had 2 sulcus length devices that sound like they were simply plastic in nature. He states that both times the orthotic device cracked. He thinks that most recently the orthotic device cracked because he was up on a ladder washing windows on his bus. He has been without his orthotics for about a month and has noted a lot of hip and back pain. He also notes leg length discrepancy and has noticed some instability and difficulty with walking without his orthotic devices. Review of Systems Constitutional: Negative for activity change and appetite change. Respiratory: Negative for chest tightness and shortness of breath. Cardiovascular: Negative for chest pain. Musculoskeletal: Positive for arthralgias and gait problem. Skin: Negative for color change and wound. Neurological: Negative for weakness and numbness. Psychiatric/Behavioral: Negative for agitation and behavioral problems. Hematological: Does not bruise/bleed easily. Endocrine: Negative for cold intolerance and heat intolerance. Allergic/Immunologic: Negative for immunocompromised state. Past medical History Past Medical History: Diagnosis Date Allergic rhinitis Autonomic dysfunction COVID-19 03/2020 Depression ([facility]) ETD (Eustachian tube dysfunction), bilateral H/O gastric bypass Stomach bypass followed by numerous surgeries to treat infection and sepsis History of medical problems Kt Excretor Hoarseness Hypercholesterolemia (CMS/HCC) Labyrinthitis chronic LPRD (laryngopharyngeal reflux disease) Lymphedema RODRIGUEZ (nonalcoholic steatohepatitis) KWAN (obstructive sleep apnea) Otorrhea of right ear Perforation of right tympanic membrane Restrictive lung disease secondary to weight Sinus tachycardia Sinusitis Vitamin D deficiency Medications Current Outpatient Medications: celecoxib (CeleBREX) 50 MG capsule, Take 50 mg by mouth in the morning and 50 mg before bedtime., Disp: , Rfl: CRANBERRY PO, Take by mouth, Disp: , Rfl: famotidine (Pepcid) 20 MG tablet, Take 20 mg by mouth at bedtime., Disp: , Rfl: fluticasone (Flonase) 50 MCG/ACT nasal spray, Administer 2 sprays into each nostril 1 (one) time each day at the same time., Disp: , Rfl: gabapentin (Neurontin) 100 MG capsule, Take by mouth, Disp: , Rfl: omega-3 (FISH OIL) 300 MG capsule, Take by mouth Daily, Disp: , Rfl: PARoxetine (Paxil) 10 MG tablet, Take 10 mg by mouth 1 (one) time each day at the same time., Disp: , Rfl: tiZANidine (Zanaflex) 2 MG capsule, Take by mouth as needed at bedtime for muscle spasms, Disp: , Rfl: Meclizine HCl 25 MG chewable tablet, Chew 1 tablet 1 (one) time each day at the same time. (Patient not taking: Reported on 10/08/2024), Disp: , Rfl: metroNIDAZOLE (Flagyl) 500 MG tablet, Take 500 mg by mouth in the morning and 500 mg in the evening and 500 mg before bedtime. (Patient not taking: Reported on 10/08/2024), Disp: , Rfl: ofloxacin (Ocuflox) 0.3 % ophthalmic solution, 4 drops every 8 (eight) hours. RT ear (Patient not taking: Reported on 10/08/2024), Disp: , Rfl: omeprazole (PriLOSEC) [address] capsule, Take 40 mg by mouth in the morning. Take before meals. (Patient not taking: Reported on 10/08/2024), Disp: , Rfl: phentermine (Adipex-P) 37.5 MG tablet, Take 37.5 mg by mouth in the morning. Take before meals. (Patient not taking: Reported on 10/08/2024), Disp: , Rfl: Allergies Other Past Surgical History Past Surgical History: Procedure Laterality Date GASTRIC BYPASS VENTRAL HERNIA REPAIR 11/2012 Family History Family History Problem Relation Name Age of Onset Heart failure Father Cancer Sister Diabetes Maternal Grandfather Objective Physical Exam Constitutional: Appearance: He is obese. HENT: Head: Normocephalic and atraumatic. Cardiovascular: Pulses: Normal pulses. Pulmonary: Effort: Pulmonary effort is normal. No respiratory distress. Abdominal: Palpations: There is no mass. Musculoskeletal: Cervical back: No rigidity. Comments: Weightbearing examination reveals pes planus morphology with slight metatarsus adductus appearance. No isolated or pinpoint tenderness. Increased excursion of the subtalar joint. Muscle strength 5/5 for all quadrants. Ankle dorsiflexion 0 degrees with the knee extended, flexed. Right ASIS to the ground-87 cm Left ASIS to the ground-93 cm Skin: Capillary Refill: Capillary refill takes less than 2 seconds. Findings: No lesion or rash. Neurological: Mental Status: He is alert. Comments: No loss of protective sensation, gross sensation intact. Psychiatric: Mood and Affect: Mood normal. Behavior: Behavior normal. Assessment/Plan ICD-10-CM 1. Valgus deformity, not elsewhere classified, right ankle M21.071 2. Valgus deformity, not elsewhere classified, left ankle M21.072 3. 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 Instability of right foot joint M25.374 5. Leg length discrepancy M21.70 Patient examined and evaluated. Gait and biomechanical evaluation performed. He is in excellent candidate for custom orthotic devices due to subtalar instability, metatarsus adductus, valgus deformity and leg length discrepancy. Custom orthotic devices will help to align the foot to help normalize function of the knee, hip in try and reduce back pain. Patient was provided with a custom orthotic form today. He will call his insurance company to find out about coverage and he will let us know if he would like to proceed. I did spend approximately 30 minutes today showing him different orthotic options and reviewing benefits of different devices. I also had him walk with a heel lift in the right shoe today to see if that normalized his posture and he stated that he felt much more rectus and in better alignment with a lift. In light of this I will likely built in a 1 cm heel lift on the right side. This note was created with the assistance of a speech recognition program. While intending to generate a timely document that accurately reflects the content of the visit, no guarantee can be provided that every grammatical or spelling mistake has been or will be identified or corrected. Thank you for your understanding. Pedro Conte DPM documented in this encounter [facility] 08-23-2023 Evaluation + Plan note Diagnostic Tests PendingTestosterone Level Total 08/23/23 [facility] 11-10-2021 Note PROCEDURE: XR HAND L T [...] authenticated by: KELLIE SMALLS Date: 2021-11-10 13:16 [facility] Evaluation + Plan note Future Appointments Appointment Date:04/23/2023 11:00:00 AM Scheduled Provider:Effie Muhammad Location:[facility] Appointment Type:[facility] Evaluation note Diagnosis Valgus deformity, not elsewhere classified, right ankle- Primary Valgus deformity, not elsewhere classified, left ankle Instability of left foot joint Instability of right foot joint Leg length discrepancy Unequal leg length (acquired) documented in this encounter [facility] HealthcareEvaluation [facility]* Diagnosis Valgus deformity, not elsewhere classified, right ankle- Primary Valgus deformity, not elsewhere classified, left ankle Instability of left foot joint Instability of right foot joint Leg length discrepancy Unequal leg length (acquired) Posterior tibial tendon dysfunction, bilateral documented in this encounter [facility] HealthcareEvaluation note* Diagnosis History of sleeve gastrectomy- Primary Morbid obesity with BMI of 50.0-59.9, adult ([facility]) documented in this encounter [facility]* Diagnosis Dietary counseling and surveillance- Primary Morbid obesity ([facility]) Morbid obesity History of sleeve gastrectomy [facility] N[facility] No data available for this section [facility] No data available for this section [facility] filedocumented in [facility] No data available for this section [facility] Summary Purpose Family History No Family History Records FoundNo Family History Records FoundNo Family History Records FoundNo Family History Records Found No data available for this section No Family History Records FoundNo Family History [...] section and content) DATE CREATED AUTHOR 01/28/2022 [facility] DATE CREATED AUTHOR AUTHOR'S ORGANIZ ATION 08/10/2022 [facility] DATE CREATED AUTHOR AUTHOR'S ORGANIZ ATION 01/28/2024 [facility] DATE CREATED AUTHOR AUTHOR'S ORGANIZ ATION 02/27/2024 [facility] DATE CREATED AUTHOR AUTHOR'S ORGANIZ ATION 09/05/[address] [facility] DATE CREATED AUTHOR AUTHOR'S ORGANIZ ATION 11/28/2024 [facility] DATE CREATED AUTHOR AUTHOR'S ORGANIZ ATION 11/30/2024 [facility] DATE CREATED AUTHOR AUTHOR'S ORGANIZ ATION 12/07/2024 [facility] DATE CREATED AUTHOR AUTHOR'S ORGANIZ ATION 12/10/2024 [facility] Patient Care team informatio n (unrecognized section and content) Pcat Instructor Relationship Specialty Start Date End Date Lulu Blank MD [address] [place] [address] PCP - General Family Medicine 04/05/23 Pcat Instructor Relationship Specialty Start Date End Date Lulu Blank MD [address] [place] [address] PCP - General Family Medicine 04/05/23 Pcat Instructor Relationship Specialty Start Date End Date Lulu Blank MD [address] [place] [address] PCP - General Family Medicine 04/05/23 Pcat Instructor Relationship Specialty Start Date End Date Lulu Blank MD [address] [place] [id number] PCP - General Family Medicine 04/05/23 Pcat Instructor Relationship Specialty Start Date End Date Lulu Blank MD [address] [place] [address] PCP - General Family Medicine 04/05/23 Pcat Instructor Relationship Specialty Start Date End Date Effie Sarmiento APRN-RN DI[facility] [address] [place], [place] [address]E[place], [place] [phone] PCP - General Nurse Practitioner 11/28/24 Pcat Instructor Relationship Specialty Start Date End Date Effie Sarmiento APRN-RN [facility] [address] [place], [place] [address], [place] [phone] PCP - General Nurse Practitioner 11/28/24 Reason for Visit (unrecogniz ed section and content) Reason Comments Foot Orthotics 49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 Pt states his current ones broke, and is wanting to get new ones. Pt has had these orthotics for about 5 years. Pt did not bring orthotics with him today. SS: 10.5W Reason Onset Date Comments Foot Orthotics 10/08/2024 Reason Comments Scan Orthotics Rakesh Piña is a 49 y.o. male who presents to be scanned Orthotics SS: 10.5W Reason Comments New Patient Need MNT 1 of 3 Reason Comments Nutrition Counseling Specialty Diagnoses / Procedures Referred By Valente courtney Referred To Contact Nutrition Diagnoses History of sleeve gastrectomy Nury Potter MD [address] [place] [address] Phone: tel: fax: Referral ID Status Reason Start Date Expiration Date Visits Requested Visits Authorized [id number] Authorized Specialty Services Required 11/28/2024 11/28/2025 12 12 FOR RECORDS PERTAINING TO PATIENTS WHO ARE [...] BE BASED ON THE PRIMARY CLINICAL RECORDS. [facility] [employer] [facility]. provides no warranty or guarantee of the accuracy or completeness of information in this document.
[2024-12-29 07:18] VITALS: BP 158/98; PULSE 73; TEMP 36.3; O2SAT 98
[2024-12-29 08:03] VITALS: BP 142/79; PULSE 76; O2SAT 96
[2024-12-29 08:04] VITALS: BP 142/78; PULSE 71; O2SAT 96
[2024-12-29] MEDS: IOHEXOL 240 MG/ML - 10 ML VIAL 24 MG INJ (08:08)
[2024-12-29] MEDS: BUPIVACAINE HCL 0.25% PF 25 MG/10 ML VIAL 4 ML INJ (08:08)
[2024-12-29] MEDS: LIDOCAINE HCL 2% 400 MG/20 ML MDV INJ (08:08)
[2024-12-29] MEDS: METHYLPREDNISOLONE ACETATE 40 MG/ML VIAL INJ (08:08)
--- NOTE | 2024-12-29 08:08 | W.PM.PROCNOT ---
Date of procedure: 12/29/24 Pre-op diagnosis: Pain due to left hip osteoarthritis Post-op diagnosis: same as pre-op Procedure: Procedure: Left hip injection Medications: Bupivacaine 0.25% 4cc, depomedrol 40mg I explained the details of the procedure to the patient including the risks, benefits and alternatives. We had an informed discussion and the patient verbalized understanding and signed the consent form. All questions were answered appropriately.? A time out was performed.? After obtaining a comfortable supine position, the skin overlying the hip, subtrochanteric region, and joint space were prepped with alcohol. A sterile syringe containing the above medication was attached to a 25 guage, 3.5 inch spinal needle under strict aseptic technique. X ray was used to identify the joint space and the femoral neck on the left side.? The needle was than advanced through the subcutaneous tissue after local injection of 1% lidocaine.? The contents of the syringe were gently injected without any resistance into the joint space after contrast (isovue) outlined the appropriate area. The needle was removed and pressure was applied to the injection site to decrease the incidence of ecchymosis and hematoma formation.? A sterile bandage was applied. Post procedural instructions were given to the patient. Anesthesia: Local Surgeon: Wilbert Buckner Pathology: none sent Condition: stable Disposition: no change
== END 2024-12-29 08:11 | disposition home or self-care (01) ==
LOC: SURGOUT 07:10
PROVIDERS: PCP Nurse Practitioner; Visit Provider Anesthesiology
DX: M16.12 Unilateral primary osteoarthritis, left hip (principal); M25.552 Pain in left hip
CPT/HCPCS: 20610; 77002; J0665; J1010; Q9966

== ENCOUNTER 2025-01-07 08:56 | Outpatient (OUT) | payer BC, SELFPAY ==
--- NOTE | 2025-01-07 09:16 | PM.CN ---
Consult Note: HPI Data of Consult Patient: known to practice within the last 3 years Requesting Physician: Liliane Garcia NP Primary Care Provider: EFFIE SARMIENTO Consult Narrative Reason for consult: f/u Narrative: Milton Vaughn a pleasant 49 year old male presents for evaluation of chronic left hip and low back pain. longstanding hx of low back and left hip pain secondary to left hip OA, sacroiliitis, and lumbar spondylosis. PT has completed > 6 weeks of PT and provider guided HEP without significant improvement in pain or functional ability. P pt finds benefit to celebrex and tizanidine without side effects. recently stopped gabapentin due to leg spasms and heaviness, has noticed improvement in symptoms since stopping. pt underwent left hip injection on 12/29/24 with >50% improvement ongoing. cc:: CC: Liliane Garcia NP Review of Systems ROS Status of ROS 10 or more systems reviewed and unremarkable except as noted in history and below Musculoskeletal Reports: back pain and joint pain PFSH PFSH Medical History Osteoarthritis ?M19.90 - Unspecified osteoarthritis, unspecified site (ICD-10) KWAN on CPAP ?G47.33 - Obstructive sleep apnea (adult) (pediatric) (ICD-10) Sleep apnea ?G47.30 - Sleep apnea, unspecified (ICD-10) Meds Home Medications and Allergies Home Medications ?Medication ?Instructions ?Recorded ?Confirmed ?Type celecoxib 200 mg capsule (Celebrex) 200 mg PO BID 11/05/23 12/29/24 History cranberry fruit 400 mg capsule 1,600 mg PO DAILY 11/05/23 12/29/24 History loratadine 10 mg tablet (Claritin) 10 mg PO DAILY 11/05/23 12/29/24 History ascorbic acid (vitamin C) 1,000 mg 1,000 mg PO DAILY 12/03/23 12/29/24 History tablet,extended release (C Complex) paroxetine HCl 10 mg tablet 10 mg PO DAILY 01/07/24 12/29/24 History tizanidine 4 mg tablet 4 mg PO DAILY 06/30/24 12/29/24 History gabapentin 300 mg capsule 300 mg PO DAILY #30 caps 09/17/24 12/29/24 Rx calcium 600 mg capsule mg PO 01/07/25 History cyanocobalamin (B12)-cobamamide judy sublingual 01/07/25 History 5,000 mcg-100 mcg sublingual lozenge (B12) turmeric 400 mg capsule mg PO 01/07/25 History Allergies Allergy/AdvReac Type Severity Reaction Status Date / Time No Known Drug Allergies Allergy Verified 12/29/24 07:21 Exam Constitutional Documenting provider has reviewed patient's vital signs: yes Common normals: no apparent distress, oriented x3, healthy appearing, alert and well nourished General appearance: cooperative HENMT Common normals: normocephalic, hearing grossly normal bilaterally and moist oral mucous membranes Head and scalp: normocephalic Eye Common normals: PERRL Pupil: PERRL Neck & C-Spine Common normals: full ROM General: normal visual inspection Chest Common normals: inspection of chest normal Respiratory Common normals: normal respiratory effort, no retractions and no use of accessory muscles Back & Pelvis Lumbar spine/lower back: no pain with ROM and no lumbar spinal tenderness Sacroiliac joints: SI joint(s) abnormal Other: left SIJ mildly positive nancy(patricks), gaenslens, thigh thrust, compression test Extremity Left lower extremity: hip joint Other: mild pain with internal rotation of left hip, mild pain with external rotation. Neuro Common normals: oriented x3 Sensorium/orientation: alert Psych Common normals: mental status grossly normal, thought process normal, cooperative, affect normal, speech normal and activity/motor behavior normal Speech: normal speech Thought process: normal thought process Results Additional Findings Additional findings: If on a controlled substance or opioids, I have checked an [place] report on this patient and there are no aberrancies noted in the prescribing history.??If on a controlled substance or opioid a drug screen was completed and reviewed within the last year, and if there has not been a drug screen completed we ordered one today to monitor higher risk, state monitored pain medication use. As part of providing excellent, safe, comprehensive care, the following was completed at our patient's visit: 1. A medication reconciliation and review to ensure accurate knowledge of current/active medications, including asking our patients to inform us about any [id number] medications or herbal remedies/nutritional supplements/alternative remedies. 2. A review to specifically ensure our patients have had annual screening for screening for depression, screening for tobacco use, and screening for unhealthy alcohol use. For concerning screenings had a discussion with the patient, provided patient education, and recommended follow-up with primary care provider when appropriate. If patient noted with a risk of falling, they received education on strength, gait, and balance training to prevent future risk of falling. Portions of this note may have been carried over from the previous visit and updated as appropriate. Please note this office utilizes paper charting in addition to the electronic medical record. A list of current medications, vitals, and PMH is available there as the clinical staff outside of myself do not have access to [facility] charting during the clinic day operations. As part of providing quality comprehensive care the current medications, vitals, and PMH were reviewed in the paper chart. Assessment and Plan Assessment and Plan (1) Osteoarthritis of left hip: Assessment and Plan: 12/29/24 left hip injection, >50% improvement ongoing? Qualifiers: Osteoarthritis type: primary Qualified Code(s): M16.12 - Unilateral primary osteoarthritis, left hip (2) Sacroiliitis: (3) Lumbar stenosis with neurogenic claudication: (4) Lumbar spondylosis: (5) Myalgia: Plan continue PT/aquatherapy as tolerated continue current medications, risks vs benefits reviewed f/u 3 months, sooner if needed
== END 2025-01-07 08:57 | disposition home or self-care (01) ==
LOC: PM 08:57
PROVIDERS: PCP Nurse Practitioner; Visit Provider Nurse Practitioner
DX: M16.12 Unilateral primary osteoarthritis, left hip (principal); M46.1 Sacroiliitis, not elsewhere classified; M48.062 Spinal stenosis, lumbar region with neurogenic claudication; M47.816 Spondylosis without myelopathy or radiculopathy, lumbar region; M79.18 Myalgia, other site
CPT/HCPCS: G0463

== ENCOUNTER 2025-03-19 09:54 | Outpatient (OUT) | payer BC, SELFPAY ==
--- OUTSIDE RECORDS SUMMARY | 2025-03-19 10:19 | XMS_ITS | CCD ---
Author Organization [facility] CliniSyga Care Team Providers Care Distribution Sales Representative Name Role Phone MAZIN CANO Admitting [...] Primary Care Unavailable FOZIA UGALDE Consulting Unavailable TRAMFOZIA Admitting Unavailable FOZIA UGALDE Attending Unavailable TorstenEffie Primary Care Physician TORSTENEFFIE PALMA Referring Unavailable TORSTEN, EFFIE Referring Unavailable Torsten, Effie Sewell Attending Unavailable Torsten, Effie Sewell Attending Unavailable Torsten, Effie Sewell Attending Unavailable Torsten, Effie Sewell Attending Unavailable Torsten, Effie Sewell Attending Unavailable Torsten, Effie Sewell Attending Unavailable Torsten, Effie Sewell Attending Unavailable Torsten, Effie L Attending Unavailable Torsten, Effie L Admitting Unavailable Torsten, Effie L Admitting Unavailable Torsten, Effie L Attending Unavailable Torsten, Effie L Attending Unavailable Torsten, Effie Sewell Attending Unavailable Lulu Blank MD Primary Care Provider [phone] PEDRO CONTE Attending Unavailable RUSHERPEDRO Attending Unavailable RUSPEDRO WHITTINGTON Attending Unavailable Torsten MARKETING PLANNING MANAGER-SNAKER DRIVING HORSES, Effie Sewell Primary Care Provider RAAD POTTER Referring Unavailable TORSTEN, EFFIE Sewell Primary Care Unavailable Torsten MARKETING PLANNING MANAGER-SNAKER DRIVING HORSESEffie Primary Care Provider Sita CORRIGAN, Andcory Guardado Attending Unavailable Giedraitis , Andrius Geo Attending Unavailable Giedraitis , Andrius Geo Attending Unavailable Giedraitis , Andrius Guardado Attending Unavailable Giedraitis , Andrius Guardado Attending Unavailable Gieditis , Andrius Guardado Attending Unavailable Gieditis , Andrius Guardado Attending Unavailable POTTER, NURY N Attending Unavailable TORSTEN, EFFIE L Primary Care Unavailable POTTER, NURY N Attending Unavailable TORSTEN, EFFIE L Referring Unavailable TORSTEN, EFFIE L Primary Care Unavailable QUINN, IRIS Attending Unavailable TORSTEN, EFFIE L Referring Unavailable TORSTEN, EFFIE L Primary Care Unavailable QUINN, IRIS Attending Unavailable TORSTEN, EFFIE L Referring Unavailable TORSTEN, EFFIE L Primary Care Unavailable QUINN, IRIS Attending Unavailable TORSTEN, EFFIE L Referring Unavailable TORSTEN, EFFIE L Primary Care Unavailable Allergies Allergy Classification Reported Allergen(s) Allergy Type Date of Onset Reaction(s) Facility (7 sources) Other Propensity to adverse reactions 3 [facility] Healthcare Work Phone: Medications Current Medications Medication Drug Class(es) Dates Sig (Normalized) Sig (Original) 12 hr buPROPion hydrochloride 150 mg extended release oral tablet (3 sources) Aminoketone take 1 tablet by mouth every twelve hours in the morning, then take 1 tablet by mouth at bedtime buPROPion SR (WELLBUTRIN SR) 150 mg 12 hr tablet Take 1 tablet (150 mg total) by mouth in the morning and 1 tablet (150 mg total) before bedtime. Active celecoxib 200 mg oral capsule (9 sources) Nonsteroidal Anti-inflammatory Drug Start: 12-27-2024 take 1 capsule by mouth in the morning celecoxib (CeleBREX) 200 mg capsule Take 1 capsule (200 mg total) by mouth in the morning. 12/27/2024 Active take 1 capsule by mouth in the m orning celecoxib (CeleBREX) 50 MG capsule Take 50 mg by mouth in the morning and 50 mg before bedtime. Active Cranberry preparation (11 sources) Non-Standardized Food Allergenic Extract, Non-Standardized Plant Allergenic Extract Start: 03-19-2023 take 1 tablet by mouth once daily cranberry oral capsule See Instructions, Refill(s) 0, 1 tablet daily Start Date: 03/19/23 Status: Ordered cranberry extrac t (CRANBERRY JUICE POWDER) 425 mg capsule Take by mouth. Active CRANBERRY PO Dain e by mouth Active cyanocobalamin, vitamin B-12, (VITAMIN B-12 ORAL) (3 sources) cyanocobalamin, vitamin B-12, (VITAMIN B-12 ORAL) Vitamin B-12 Active famotidine 20 mg oral tablet (7 sources) Histamine-2 Receptor Antagonist Start: 03-03-20 22 take 1 tablet by mouth at bedtime famotidine (Pepcid) 20 MG tablet Take 20 mg by mouth at bedtime. 03/03/2022 Active Fish Oils (8 sources) Start: 03-19-20 take 1 capsule by mouth once daily [...] 100 MG capsule Take by mouth Active ipratropium bromide 0.021 mg/actuat metered dose nasal spray (3 sources) Anticholinergic ipratropium (ATROVENT) 21 mcg (0.03 %) nasal spray Administer 1 spray into each nostril as needed. Active loratadine 10 mg oral capsule (5 sources) Start: 03-19-2023 take 1 capsule by mouth once daily as needed loratadine 10 mg oral capsule 10 mg = 1 cap(s), Oral, Daily, PRN Allergy symptoms, # 10 cap(s), Refills(s) 0 Start Date: 03/19/23 Status: Ordered loratadine (CLAR ITIN) 10 mg tablet Take 1 tablet (10 mg total) by mouth as needed. Active meclizine hydrochloride 25 m g chewable tablet (10 sources) Antiemetic meclizine (ANTIV ERT) 25 mg tablet Chew 1 tablet (25 mg total) and swallow 3 (three) times a day as needed. Active Meclizine HCl 25 MG chewable tablet Chew 1 tablet 1 (one) time each day at the same time. Active osmotic 24 hr metFORMIN hydrochloride 1000 mg extended release oral tablet (3 sources) Biguanide Start: 01-23-2025 take 1 tablet by mouth once daily at breakfast metFORMIN (FORTAMET) 1000 MG (OSM) 24 hr tablet Take 1 tablet (1,000 mg total) by mouth daily with breakfast. 90 tablet 3 01/23/2025 Active methylPREDNISolone 4 mg oral tablet (1 source) Corticosteroid Start: 03-19-2023 End: 03-25-2023 Medrol 4 mg Tab = 1 packet(s), Oral, As Directed, as directed on package labeling, X 6 day(s), # 21 tab(s), Refills(s) 0, Pharmacy: [facility]/pharmacy #[id number], 176.5, cm, 03/19/23 [...] 8 (eight) hours. RT ear 03/03/2022 Active omega-3 fatty acids-fish oil 300-1,000 mg capsule (3 sources) take 3-300 capsules by mouth in the morning omega-3 fatty acids-fish oil 300-1,000 mg capsule Take by mouth in the morning. Active omeprazole 40 mg delayed release oral capsule (10 sources) Proton Pump Inhibitor omeprazole (PriLOSEC) 40 mg capsule Take 1 capsule (40 mg total) by mouth as needed. Active PARoxetine hydrochloride 10 mg oral tablet (12 sources) Serotonin Reuptake Inhibitor Start: 03-19-2023 take 1 tablet by mouth once daily paroxetine 10 mg Tab 10 mg = 1 tab(s), Oral, Daily, # 90 tab(s), Refills(s) 3, Pharmacy: [facility]/pharmacy #[id number], 176.5, cm, 07/26/23 9:32:00 EST, Height/Length Dosing, 187.2, kg, 07/26/23 9:32:00 EST, Weight Dosing Start Date: 07/26/23 Status: Ordered phentermine hydrochloride 37.5 mg oral tablet (9 sources) Sympathomimetic Amine Anorectic Start: 07-26-2023 take 1 tablet by mouth once daily phentermine 37.5 mg Tab 37.5 mg = 1 tab(s), Oral, Daily, # 30 tab(s), Refills(s) 0, Pharmacy: [facility] #[id number], 176.5, cm, 07/26/23 9:32:00 EST, Height/Length Dosing, 187.2, kg, 07/26/23 9:32:00 EST, Weight Dosing Start Date: 07/26/23 Status: Ordered Start: 03-19-2023 End: 04-18-2023 take 1 tablet by mouth once daily phentermine 37.5 mg Tab 37.5 mg = 1 tab(s), Oral, Daily, X 30 day(s), # 30 tab(s), Refills(s) 0, Pharmacy: [facility]/pharmacy #[id number], 176.5, cm, 03/19/23 13:15:00 EDT, Height/Length Dosing Start Date: 03/19/23 Stop Date: 04/18/23 Status: Ordered 60 actuat testosterone 20.25 mg/actuat topical gel (4 sources) Androgen Start: 01-23-2025 End: 03-16-2025 testosterone (ANDROGEL) 20.25 mg/1.25 gram (1.62 %) gel in metered-dose pump Indications: Low 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 Place 2 Act (40.5 mg total) on the skin in the morning. 75 g 03/16/2025 Active tiZANidine 4 mg oral tablet (9 sources) Central alpha-2 Adrenergic Agonist Start: 12-27-2024 take 1 tablet by mouth once daily tiZANidine (ZANAFLEX) 4 mg tablet Take 1 tablet (4 mg total) by mouth nightly. 12/27/2024 Active tiZANidine (Mayito flex) 2 MG capsule Take by mouth as [...] left ankle] 10-08-2024 Episodic Administrative/socia l admission (4 sources) Patient encounter status; Translations: [Dietary counseling [...] Chronic Other nutritional; endocrine; and metabolic disorders (6 sources) Morbid obesity; Translations: [Morbid (severe) obesity due to excess calories] 03-19-2023 Chronic Other nutritional; endocrine; and metabolic disorders (1 source) Body mass index 40+ - severely obese; Translations: [Morbid (severe) obesity due to excess calories] 11-28-2024 Chronic Other nutritional; endocrine; and metabolic disorders (1 source) Insulin resistance; Translations: [Insulin resistance] 01-23-2025 Chronic Other screening for suspected conditions (not mental disorders or infectious disease) (3 sources) Decreased testosterone level ; Translations: [Other specified abnormal findings of blood chemistry] Onset: 01-23-2025 01-23-2025 Episodic Other upper respiratory disease (7 sources) Chronic [...] Onset: 04-05-2023 04-05-2023 Chronic Residual codes; unclassified (3 sources) History of sleeve gastrectomy; Translations: [Acquired [...] Patient encounter status 03-19-2023 Unclassified (1 source) Insulin resistance, unspecified; Translations: [Insulin resistance, unspecified] Onset: 01-23-2025 Unclassified (1 source) ESTABLISHED PATIENT Onset: 01-23-2025 Unclassified (1 source) New Patient Onset: 11-28-2024 [...] Reference Range Facility CBC AND AUTO DIFFon 12-02-19 ABSOLUTE BASOPHIL 0.2 X10E9/L Normal 0.0-0.2 [facility] Comment on above: Performed By: #### 4 8615-9, 85662-4 #### [facility] ([id number]) [address] [place] [address] 13716 #### LIVR, 30729-6, 2731-8, 2498-4, HA1C, 2-9, 3016-3, CBCA #### [facility] ([id number]) [address] [place] [address], [address] [place] [address] ABSOLUTE NEUTROPHIL 5.2 X10E9/L Normal 1.5-6.6 [facility] Comment on above: Performed By: #### 4 8615-9, 02474-6 #### [facility] ([id number]) [address] [place] [address] 15523 #### LIVR, 81246-9, 2731-8, 2498-4, HA1C, 2132-9, 3016-3, CBCA #### [facility] ([id number]) [address], [address] [place] [address] Basophils/100 WBC (Bld) 2.6 % Normal [facility] Comment on above: Performed By: #### 4 8615-9, 17061-8 #### [facility] ([id number]) [address] [place] [address] 29760 #### LIVR, 61766-6, 2731-8, 2498-4, HA1C, 2131-9, 6-3, CBCA #### [facility] ([id number]) [address], [address] [place] [address] Eosinophils (Bld) [#/Vol] 0.1 10*3/uL Normal 0.0-0.4 [facility] Comment on above: Performed By: #### 4 8615-9, 68235-7 #### [facility] ([id number]) [address] [place] [address] 07952 #### LIVR, 79626-6, 2731-8, 2498-4, HA1C, 2131-9, 6-3, CBCA #### [facility] ([id number]) [address], [address] [place] [address] Eosinophils/100 WBC (Bld) 1.5 % Normal [facility] Comment on above: Performed By: #### 4 8615-9, 06644-0 #### [facility] ([id number]) [address] [place] [address] 17338 #### LIVR, 17550-5, 2731-8, 2498-4, HA1C, 2131-9, 3016-3, CBCA #### [facility] ([id number]) [address], [address] [place] [address] Erythrocyte distribution width (RBC) [Ratio] 16.0 % High 11.5-15.0 [facility] Comment on above: Performed By: #### 4 8615-9, 71121-8 #### [facility] ([id number]) [address] [place] [address] 95304 #### LIVR, 77614-1, 2731-8, 2498-4, HA1C, 2132-9, 3016-3, CBCA #### [facility] ([id number]) [address], [address] [place] [address] Hematocrit (Bld) [Volume fraction] 44.1 % Normal 39-49 [facility] Comment on above: Performed By: #### 4 8615-9, 39539-7 #### [facility] ([id number]) [address] [place] [address] 99873 #### LIVR, 09448-0, 2731-8, 2498-4, HA1C, 2132-9, 3016-3, CBCA #### [facility] ([id number]) [address], [address] [place] [address] Hemoglobin (Bld) [Mass/Vol] 14.6 g/dL Normal 13.0-17.0 [facility] Comment on above: Performed By: #### 4 8615-9, 96229-5 #### [facility] ([id number]) [address] [place] [address] 71143 #### LIVR, 58215-1, 2731-8, 2498-4, HA1C, 2132-9, 3016-3, CBCA #### [facility] ([id number]) [address], [address] [place] [address] Lymphocytes (Bld) [#/Vol] 1.3 10*3/uL Normal 1.0-3.5 [facility] Comment on above: Performed By: #### 4 8615-9, 09787-8 #### [facility] ([id number]) [address] [place] [address] 83932 #### LIVR, 00844-2, 2731-8, 2498-4, HA1C, 2-9, 3016-3, CBCA #### [facility] ([id number]) [address], [address] [place] [address] Lymphocytes/100 WBC (Bld) 18.4 % Normal [facility] Comment on above: Performed By: #### 4 8615-9, 37530-7 #### [facility] ([id number]) [address] [place] [address] 84341 #### LIVR, 67999-4, 2731-8, 2498-4, HA1C, 2131-9, 3016-3, CBCA #### [facility] ([id number]) [address], [address] [place] [address] MCH (RBC) [Entitic mass] 28.3 pg Normal 27-34 [facility] Comment on above: Performed By: #### 4 8615-9, 63919-2 #### [facility] ([id number]) [address] [place] [address] 55185 #### LIVR, 26535-2, 2731-8, 2498-4, HA1C, 2131-9, 3016-3, CBCA #### [facility] ([id number]) [address], [address] [place] [address] MCHC (RBC) [Mass/Vol] 33.1 g/dL Normal 32-36 [facility] Comment on above: Performed By: #### 4 8615-9, 61448-3 #### [facility] ([id number]) [address] [place] [address] 86510 #### LIVR, 01151-3, 2731-8, 2498-4, HA1C, 2132-9, 3016-3, CBCA #### [facility] ([id number]) [address], [address] [place] [address] MCV (RBC) [Entitic vol] 85 fL Normal 80-100 [facility] Comment on above: Performed By: #### 4 8615-9, 18140-9 #### [facility] ([id number]) [address] [place] [address] 14729 #### LIVR, 39334-5, 2731-8, 2498-4, HA1C, 2131-9, 3016-3, CBCA #### [facility] ([id number]) [address], [address] [place] [address] Monocytes (Bld) [#/Vol] 0.3 10*3/uL Normal 0-0.9 [facility] Comment on above: Performed By: #### 4 8615-9, 95030-4 #### [facility] ([id number]) [address] [place] [address] 69925 #### LIVR, 50737-3, 2731-8, 2498-4, HA1C, 2-9, 3016-3, CBCA #### [facility] ([id number]) [address], [address] [place] [address] Monocytes/100 WBC (Bld) 4.3 % Normal [facility] Comment on above: Performed By: #### 4 8615-9, 56314-9 #### [facility] ([id number]) [address] [place] [address] 93644 #### LIVR, 42850-5, 2731-8, 2498-4, HA1C, 2132-9, 3016-3, CBCA #### [facility] ([id number]) [address], [address] [place] [address] Neutrophils/100 WBC (Bld) 73.2 % Normal [facility] Comment on above: Performed By: #### 4 8615-9, 86456-2 #### [facility] ([id number]) [address] [place] [address] 64128 #### LIVR, 07520-4, 2731-8, 2498-4, HA1C, 2-9, 3016-3, CBCA #### [facility] ([id number]) [address], [address] [place] [address] Platelet mean volume (Bld) [Entitic vol] 7.6 fL Normal 7-12 [facility] Comment on above: Performed By: #### 4 8615-9, 59134-1 #### [facility] ([id number]) [address] [place] [address] 49713 #### LIVR, 75504-4, 2731-8, 2498-4, HA1C, 2-9, 3016-3, CBCA #### [facility] ([id number]) [address], [address] [place] [address] Platelets (Bld) [#/Vol] 234 10*3/uL Normal 150-450 [facility] Comment on above: Performed By: #### 4 8615-9, 04098-4 #### [facility] ([id number]) [address] [place] [address] 68276 #### LIVR, 91051-4, 2731-8, 2498-4, HA1C, 2132-9, 3016-3, CBCA #### [facility] ([id number]) [address], [address] [place] [address] RBC COUNT 5.16 X10E12/L Normal 4.10-5.70 [facility] Comment on above: Performed By: #### 4 8615-9, 82588-8 #### [facility] ([id number]) [address] [place] [address] 90130 #### LIVR, 79575-3, 2731-8, 2498-4, HA1C, 2132-9, 3016-3, CBCA #### [facility] ([id number]) [address], [address] [place] [address] WBC (Bld) [#/Vol] 7.1 10*3/uL Normal 4.0-11.0 [facility] Comment on above: Performed By: #### 4 8615-9, 98575-8 #### [facility] ([id number]) [address] [place] [address] 57542 #### LIVR, 20955-4, 2731-8, 2498-4, HA1C, 2132-9, 3016-3, CBCA #### [facility] ([id number]) [address], [address] [place] [address] HGB A1C (GLYCO-HGB)on 2024 Glucose [Mass/Vol] 103 mg/dL Normal [facility] Comment on above: Performed By: #### 4 8615-9, 82310-9 #### [facility] ([id number]) [address] [place] [address] 94772 #### LIVR, 65625-2, 2731-8, 2498-4, HA1C, 2132-9, 3016-3, CBCA #### [facility] ([id number]) [address], [address] [place] [address] HbA1c (Bld) [Mass fraction] 5.2 % Normal 4.4-5.6 [facility] Comment on above: Result Comment: NOTE ADA Guidelines Result HgbA1c Normal : less than 5.7 % Prediabetes : 5.7 % to 6.4 % Diabetes : > 6.4 % Use with caution in patients with abnormal hemoglobin variants as the half-life of red blood cells and in vivo glycation rates are affected. Performed By: #### 4 8615-9, 57301-3 #### [facility] ([id number]) [address] [place] [address] 74412 #### LIVR, 39756-2, 2731-8, 2498-4, HA1C, 2132-9, 3016-3, CBCA #### [facility] ([id number]) [address] [facility] [address], [address] [place] [address] IRONon 12-01-2024 Iron [Mass/Vol] 51 ug/dL Normal 50-212 [facility] Comment on above: Performed By: #### 4 8615-9, 71778-5 #### [facility] ([id number]) [address] [place] [address] 34887 #### LIVR, 34980-5, 2731-8, 2498-4, HA1C, 2-9, 3016-3, CBCA #### [facility] ([id number]) [address], [address] [place] [address] Insulin.free and Insulin.tot al chris Qnon 12-01-2024 Insulin, Free, S 146 mcIU/mL High 3 - 25 [facility] Comment on above: Performed By: #### 4 8615-9, 82220-6 #### [facility] ([id number]) [address] [place] [address] 21532 #### LIVR, 52975-2, 2731-8, 2498-4, HA1C, 2132-9, 3016-3, CBCA #### [facility] ([id number]) [address], [address] [place] [address] Insulin, Total, S 168 mcIU/mL High 3 - 25 [facility] Comment on above: Result Comment: NOTE ADDITIONAL INFORMATION This test has been modified from the injection moulding machine operator's instructions. Its performance characteristics were determined by [facility] in a manner consistent with CLIA requirements. [...] the total insulin concentration. Test Performed by: [facility] [address] [place] [address] Fine Sander: Leslye Pink Ph.D.; CLIA# [id number] Performed By: #### 4 8615-9, 51436-0 #### [facility] ([id number]) [address] [place] [address] 40796 #### LIVR, 64173-0, 2731-8, 2498-4, HA1C, 2131-9, 3016-3, CBCA #### [facility] ([id number]) [address] [place] [address], [address] [place] [address] LIVER PANELon 12-01-2024 Albumin [Mass/Vol] 3.7 g/dL Normal 3.2-5.3 [facility] Comment on above: Performed By: #### 4 8615-9, 71163-1 #### [facility] ([id number]) [address] [place] [address] 27431 #### LIVR, 72825-8, 2731-8, 2498-4, HA1C, 2132-9, 3016-3, CBCA #### [facility] ([id number]) [address], [address] [place] [address] ALP [Catalytic activity/Vol] 59 U/L Normal 39-130 [facility] Comment on above: Performed By: #### 4 8615-9, 16655-4 #### [facility] ([id number]) [address] [place] [address] 22309 #### LIVR, 53331-1, 2731-8, 2498-4, HA1C, 2-9, 3016-3, CBCA #### [facility] ([id number]) [address] [facility] [facility] [address], [address] [place] [address] ALT [Catalytic activity/Vol] 19 U/L Normal 0-40 [facility] Comment on above: Performed By: #### 4 8615-9, 74154-4 #### [facility] ([id number]) [address] [place] [address] 80008 #### LIVR, 96303-9, 2731-8, 2498-4, HA1C, 2131-9, 3016-3, CBCA #### [facility] ([id number]) [address] [facility] [facility] [address], [address] [place] [address] AST [Catalytic activity/Vol] 18 U/L Normal 0-41 [facility] Comment on above: Performed By: #### 4 8615-9, 73163-0 #### [facility] ([id number]) [address] [place] [address] 83858 #### LIVR, 59933-8, 2731-8, 2498-4, HA1C, 2-9, 3016-3, CBCA #### [facility] ([id number]) [address], [address] [place] [address] Bilirubin [Mass/Vol] 0.5 mg/dL Normal 0.3-1.2 [facility] Comment on above: Performed By: #### 4 8615-9, 37332-4 #### [facility] ([id number]) [address] [place] [address] 13200 #### LIVR, 52508-0, 2731-8, 2498-4, HA1C, 2132-9, 3016-3, CBCA #### [facility] ([id number]) [address] [facility] [facility], [address] [place] [address] Bilirubin.direct [Mass/Vol] 0.1 mg/dL Normal 0.0-0.4 [facility] Comment on above: Performed By: #### 4 8615-9, 55812-8 #### [facility] ([id number]) [address] [place] [address] 71845 #### LIVR, 85673-4, 2731-8, 2498-4, HA1C, 2132-9, 3016-3, CBCA #### [facility] ([id number]) [address] [facility] [facility], [address] [place] [address] Protein [Mass/Vol] 7.3 g/dL Normal 6.0-8.0 [facility] Comment on above: Performed By: #### 4 8615-9, 49861-3 #### [facility] ([id number]) [address] [place] [address] 43496 #### LIVR, 59105-9, 2731-8, 2498-4, HA1C, 2132-9, 3016-3, CBCA #### [facility] ([id number]) [address] [facility], [address] [place] [address] Parathyrin.intact [Mass/Vol] on 12-01-2024 PTH INTACT 25 pg/mL Normal 12-88 [facility] Comment on above: Performed By: #### 4 8615-9, 97942-7 #### [facility] ([id number]) [address] [place] [id number] #### LIVR, 92618-8, 2731-8, 2498-4, HA1C, 2132-9, 3016-3, CBCA #### [facility] ([id number]) [address], [address] [place] [address] TSH Qnon 12-01-2024 TSH 1.64 uIU/mL Normal 0.49-4.67 [facility] Comment on above: Performed By: #### 4 8615-9, 21189-0 #### [facility] ([id number]) [address] [place] [id number] #### LIVR, 14740-4, 2731-8, 2498-4, HA1C, 2131-9, 3016-3, CBCA #### [facility] ([id number]) [address], [address] [place] [address] Testosterone free and total panel [Mass/Vol]on 12-01-2024 Testosterone [Mass/Vol] 286 ng/dL Normal 240-950 [facility] Comment on above: Result Comment: NOTE ADDITIONAL INFORMATION Testing performed by Liquid Chromatography-Tandem Mass Spectrometry (LC-MS/MS). This test was developed and its performance characteristics determined by [facility] in a manner consistent with CLIA requirements. This test has not been cleared or approved by the U.S. Food and Drug Administration. Test Performed by: [facility] - [address] [address] [place]: Leslye Pink Ph.D.; CLIA# [id number] Performed By: #### 4 8615-9, 65904-7 #### [facility] ([id number]) [address] [place] [id number] #### LIVR, 52753-0, 2731-8, 2498-4, HA1C, 2132-9, 3016-3, CBCA #### [facility] ([id number]) [address], [address] [place] [address] TESTOSTERONE FREE 8.16 ng/dL Normal 4.26-16.4 [facility] Comment on above: Result Comment: NOTE ADDITIONAL INFORMATION This test was developed and its performance characteristics determined by [facility] in a manner consistent with CLIA requirements. This test has not been cleared or approved by the U.S. Food and Drug Administration. Performed By: #### 4 8615-9, 76992-7 #### [facility] ([id number]) [address] [place] [address] #### LIVR, 97880-6, 2731-8, 2498-4, HA1C, 2131-9, 3016-3, CBCA #### [facility] ([id number]) [address] [place] [address], [address] [place] [address] VITAMIN B12on 12-01-2024 Cobalamin (Vitamin B12) [Mass/Vol] 399 pg/mL Normal 180-914 [facility] Comment on above: Performed By: #### 4 8615-9, 52381-6 #### [facility] ([id number]) [address] [place] [address] #### LIVR, 37044-4, 2731-8, 2498-4, HA1C, 2-9, 3016-3, CBCA #### [facility] ([id number]) [address], [address] [place] [address] Vitamin D+Metabolites [Mass/ Vol]on 12-01-2024 VITAMIN D 25 HYD TOT 36.1 ng/mL Normal 30-100 [facility] Comment on above: Result Comment: Vitamin D status 25 [place] Vitamin D Deficiency <20 ng/mL Insufficiency 20-29 ng/mL Sufficiency 30-100 ng/mL Toxicity >100 ng/mL NOTE: A pediatric reference range has not been established by the injection moulding machine operator of this kit. The [place] [employer] recommends a Vitamin D level of = or >20ng/mL in infants and children. Performed By: #### 4 8615-9, 06250-5 #### [facility] ([id number]) [address] [place] [address], [place] [address] #### LIVR, 17378-6, 2731-8, 2498-4, HA1C, 2132-9, 3016-3, CBCA #### [facility] ([id number]) [address] [place] [address], [address] [place] [address] Operative Reporton Operative Report [id number]#1. 00TIFF [facility] Consultation Noteon 02-20-20 Consultation Note [id number]#1 .00TIFF [facility] Consultation Noteon 02-06-20 Consultation Note [id number]#1 .00TIFF [facility] RAD - MRI Reporton RAD - MRI Report [id number]#1 .00TIFF [facility] MRI LUMBAR SPINE WO CONTRAST on [...] compromise. L2-L3: No disc bulge or protrusion. Zedy-hs-xmwzqkuw facet arthropathy. No significant central canal stenosis. [...] Carson Linares DO 01/24/24 Final result Normal [facility] MRI THORACIC SPINE WO CONTRA STon 01-23-2024 [...] Carson Linares DO 01/24/24 Final result Normal [facility] Medicine Office/Clini c Noteon 01-17-2024 Family Medicine Office/Clinic Note HPI Staff Rakesh is a 48 year old male presenting for follow up on back pain VENANCIO 01/09/2024 Low back pain with left-sided sciatica was given ketorolac, MRI ordered pt tried to get it done Sunday but couldn't get done they didn't due to wasn't open MRI. MRI order was sent to [facility] in [place]. Pt states the burning sensation from sitting [...] not able to get MRI done at [facility]. is waiting for PA for MRI in [place]. they have an open MRI machine. needs [...] days., # 18 tab(s), Refills(s) 0, Pharmacy: [facility]/pharmacy #[id number], 187.5, cm, 01/16/24 13:46:00 EDT, Height/Length Dosing, 183, kg, 01/16/24 13:4... 3. Non-smoker (Z78.9: Other specified health status) continue not smoking Ordered: predniSONE, = 1 -, Oral, As Directed, Take 3 tabs by mouth daily x3 days, then 2 tabs daily x3 days, then 1 tab daily x3 days., # 18 tab(s), Refills(s) 0, Pharmacy: [facility]/pharmacy #[id number], 187.5, cm, 01/16/24 [...] pneumococcal 23-valent vaccine 03/10/[address] [facility] Comment on above: Result Comment: Elec [...] 1 tab daily x3 days. Pickup at [facility]/pharmacy #[id number] Unchanged cranberry (cranberry oral capsule) See instructions [...] adult Pharmacy Information [id number]: [address], [place] [phone] Allergies No Known Allergies Problems Ongoing - [...] you for choosing us for your care. [facility] Physician Orderon 01-14-2024 Physician Order [id number]#1 .00TIFF [facility] Provider Letteron 01-14-2024 Provider Letter January 14, 2024 RAKESH PIÑA [address] [place] [id number] : 1975 To Whom It May Concern, Please excuse above patient from work. Date of Illness: From: 01/07/2024 To: 01/16/2024 May Return to Work On: 01/17/2024 Restrictions: None Comments: Sincerely, [place] [address] [facility] Ambulatory Visit Summaryon 0 01-09-2024 Ambulatory [...] to do next Scheduled Follow-Up Appointments Sunday 11:20 AM EDT With: Effie Muhammad Where: [facility] [place] [facility] Consenton 01-09-2024 Consent [id number]#1 .00TIFF [facility] ED Note-Physicianon 01-09-20 ED Note-Physician [id number]# 1.00TIFF [facility] Family Medicine Office/Clini c Noteon 01-09-2024 Family Medicine Office/Clinic Note HPI Staff Rakesh is a 48 year old male presenting for ER follow up ER followup: Hospital: [facility] Visit date: 01/07/24 Symptoms the [...] Pain, # 60 tab(s), Refills(s) 0, Pharmacy: [facility]/pharmacy #[id number], 187.5, cm, 01/09/24 [...] Pain, # 60 tab(s), Refills(s) 0, Pharmacy: [facility]/pharmacy #[id number], 187.5, cm, 01/09/24 10:51:00 EDT, Height/Length Dosing, 187.5, kg, 08/23/23 9:30:00 EST, Weight Dosing triamcinolone, 60 mg = 1.5 mL, Injection, IntraMuscular, Once, Stop date 01/09/24 11:20:00 EDT, Routine, Start date 01/09/24 11:20:00 EDT, 01/09/24 11:20:00 EDT Orders: phentermine, 37.5 mg = 1 tab(s), Oral, Daily, # 30 tab(s), Refills(s) 0, Pharmacy: [facility], 176.5, cm, 07/26/23 9:32:00 EST, Height/Length [...] Allergies Social Hi (more content not included)... [facility] Comment on above: Result Comment: Elec tronically Signed By: Effie Muhammad\.br\Date and Time Signed: 01/09/24 11:25 EDT Physician Orderon 01-09-2024 Physician Order [id number]#1 .00TIFF [facility] Provider Letteron 01-09-2024 Provider Letter January 09, [address] [id number] : 1975 To Whom It May Concern, Please excuse above patient from work due to medical Date of Illness: From: _01-08-24 To: _01-14-24 May Return to Work On:01-15-24 Restrictions: _ Comments: _ Sincerely, Family Medicine [address] [address] [facility] RAD - CT Reporton 01-09-2024 RAD - CT Report [id number]#1 .00TIFF [facility] ED Note-Physicianon 01-08-20 ED Note-Physician [id number]#1 .00TIFF [facility] RAD - CT Reporton 01-08-[address]24 RAD - CT Report [id number]#1 .00TIFF [facility] Operative Reporton Operative Report [id number]#1 .00TIFF [facility] Consultation Noteon 11-07-19 Consultation Note [id number]#1 .00TIFF [facility] PT - Progress Noteson 2023 PT - Progress Notes [id number]#1 .00TIFF [facility] RAD - MISCon 10-29-2023 RAD - MISC [id number]#1 .00TIFF [facility] Retail - Clinical Noteon Retail - Clinical Note [id number]#1 .00TIFF [facility] Plan of Care - PT/OT/Speecho n 09-06-2023 Plan of Care - PT/OT/Speech [id number]#1 .00TIFF [facility] Physician Referralon 023 Physician Referral [id number]# 1.00TIFF [facility] Testost Totalon 08-25-2023 Testosterone [Mass/Vol] 321 ng/dL Invalid Interpretation Code 264-916 [facility] Comment on above: Result Comment: Adul t male reference interval is based on a population of healthy nonobese males (BMI <30) between 19 and 39 years old. Iron et.al. JCEM 2017,102;5335-9697. PMID: 92858307. Performed at: [facility] [id number] PhD Domenic Rider Performed By: #### 2 [id number], [id number], [id number] ####[facility] [address] [place] [address] Reminderson 08-24-2023 Reminders - From: Effie Muhammad [...] left detailed message for patient below [facility] CHEMISTRYOrdered By: SYSTEM SYSTEM on 08-23-2023 Cobalamin [...] thing was in slow motion. 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 He would [...] he would like referral to PT at [place] for bakc/leg pain. gabapentin and muscles relaxers did not help. 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 all questions answered. RTC as needed Ordered: cyclobenzaprine, 10 mg = 1 tab(s), Oral, Bedtime, PRN for spasm, # 30 tab(s), Refills(s) 0, Pharmacy: [facility], 176.5, cm, 07/26/23 9:32:00 EST, Height/Length Dosing, 187.2, kg, 07/26/23 9:32:00 EST, Weight Dosing gabapentin, 300 mg = 1 cap(s), Oral, Daily, # 30 cap(s), Refills(s) 0, Pharmacy: [facility], 176.5, cm, 07/26/23 9:32:00 EST, Height/Length Dosing, 187.2, kg, 07/26/23 9:32:00 EST, Weight Dosing 2. Fatigue (R53.83: Other fatigue) labs drawn today Ordered: Lab Specimen Collect 73388 Testosterone Level Total 3. Hypogonadism male (E29.1: Testicular hypofunction) testosterone ordered Ordered: Lab Specimen Collect 16116 Testosterone Level Total 4. BMI 60.0-69.9, adult (Z68.44: Body mass index [BMI] 60.0-69.9, adult) bmi education complete Ordered: cyclobenzaprine, 10 mg = 1 tab(s), Oral, Bedtime, PRN for spasm, # 30 tab(s), Refills(s) 0, Pharmacy: [facility], 176.5, cm, 07/26/23 9:32:00 EST, Height/Length Dosing, 187.2, kg, 07/26/23 9:32:00 EST, Weight Dosing gabapentin, 300 mg = 1 cap(s), Oral, Daily, # 30 cap(s), Refills(s) 0, Pharmacy: [facility], 176.5, cm, 07/26/23 9:32:00 EST, Height/Length Dosing, 187.2, kg, 07/26/23 9:32:00 EST, Weight Dosing Testosterone Level Total Vitamin B12 Level Vitamin D 25 Hydroxy Follow-up No qualifying data available Patient Education Obesity, Adult, Wszh-xt-Vzls Problem List/Past Medical History Ongoing Encounter for [...] ago Tob (more content not included)... [facility] Comment on above: Result Comment: [...] food choices, such as grocery stores and [employer]. What are the signs or symptoms? The [...] How much exercise you get. ? Take sgre-vjl-dyrqzmq and prescription medicines only as told by [...] with yo (more content not included)... [facility] Vit B12on 08-23-2023 Cobalamin (Vitamin B12) [Mass/Vol] 301 pg/mL Normal 50-1500 [facility] Comment on above: Performed By: #### 2 [id number], [id number], [id number] #### [facility] [address] [place] [address] Vitamin D 25 Hydroxyon 08-23 Vitamin D 25 Hydroxy 57.7 ng/mL Normal 30.0-100.0 [facility] Comment on above: Performed By: #### 2 714393, [id number], [id number] ####[facility] [address] [place] [address] Ambulatory Visit Summaryon 1 09-25-2022 Ambulatory Visit [...] 9:20 AM EST With: Effie Muhammad Where: [facility] Normal [facility] Office/Clini c Noteon 07-26-2023 Family Medicine [...] spasm, # 30 tab(s), Refills(s) 0, Pharmacy: [facility], 176.5, cm, 07/26/23 9:32:00 EST, Height/Length Dosing, 187.2, kg, 07/26/23 9:32:00 EST, Weight Dosing gabapentin, 300 mg = 1 cap(s), Oral, Daily, # 30 cap(s), Refills(s) 0, Pharmacy: [facility], 176.5, cm, 07/26/23 9:32:00 EST, Height/Length Dosing, 187.2, kg, 07/26/23 9:32:00 EST, Weight Dosing methylPREDNISolone, = 1 packet(s), Oral, As Directed, as directed on package labeling, X 6 day(s), # 21 tab(s), Refills(s) 0, Pharmacy: [facility], 176.5, cm, 07/26/23 9:32:00 EST, Height/Length [...] spasm, # 30 tab(s), Refills(s) 0, Pharmacy: [facility], 176.5, cm, 07/26/23 9:32:00 EST, Height/Length Dosing, 187.2, kg, 07/26/23 9:32:00 EST, Weight Dosing gabapentin, 300 mg = 1 cap(s), Oral, Daily, # 30 cap(s), Refills(s) 0, Pharmacy: [facility], 176.5, cm, 07/26/23 9:32:00 EST, Height/Length Dosing, 187.2, kg, 07/26/23 9:32:00 EST, Weight Dosing methylPREDNISolone, = 1 packet(s), Oral, As Directed, as directed on package labeling, X 6 day(s), # 21 tab(s), Refills(s) 0, Pharmacy: [facility], 176.5, cm, 07/26/23 9:32:00 EST, Height/Length Dosing, 187.2, kg, 07/26/23 9:32:00 EST, Weight Dosing 3. Numbness and tingling of foot (R20.0: Anesthesia of skin) discussed ENG results Ordered: cyclobenzaprine, 10 mg = 1 tab(s), Oral, Bedtime, PRN for spasm, # 30 tab(s), Refills(s) 0, Pharmacy: [facility], 176.5, cm, 07/26/23 9:32:00 EST, Height/Length Dosing, 187.2, kg, 07/26/23 9:32:00 EST, Weight Dosing gabapentin, 300 mg = 1 cap(s), Oral, Daily, # 30 cap(s), Refills(s) 0, Pharmacy: [facility], 176.5, cm, 07/26/23 9:32:00 EST, Height/Length Dosing, 187.2, kg, 07/26/23 9:32:00 EST, Weight Dosing methylPREDNISolone, = 1 packet(s), Oral, As Directed, as directed on package labeling, X 6 day(s), # 21 tab(s), Refills(s) 0, Pharmacy: [facility], 176.5, cm, 07/26/23 9:32:00 EST, Height/Length Dosing, 187.2, kg, 07/26/23 9:32:00 EST, Weight Dosing 4. Class 3 obesity (E66.01: Morbid (severe) obesity due to excess calories) pt continues with diet Ordered: cyclobenzaprine, 10 mg = 1 tab(s), Oral, Bedtime, PRN for spasm, # 30 tab(s), Refills(s) 0, Pharmacy: [facility], 176.5, cm, 07/26/23 9:32:00 EST, Height/Length Dosing, 187.2, kg, 07/26/23 9:32:00 EST, Weight Dosing gabapentin, 300 mg = 1 cap(s), Oral, Daily, # 30 cap(s), Refills(s) 0, Pharmacy: [facility], 176.5, cm, 07/26/23 9:32:00 EST, Height/Length Dosing, 187.2, kg, 07/26/23 9:32:00 EST, Weight Dosing methylPREDNISolone, = 1 packet(s), Oral, As Directed, as directed on package labeling, X 6 day(s), # 21 tab(s), Refills(s) 0, Pharmacy: [facility], (more content not included)... [facility] Comment on above: Result Comment: Elec tronically Signed By: Effie Muhammad\.br\Date and Time Signed: 07/26/23 09:54 EST EMG Electromyographyon 07-10 EMG Electromyography [id number] .00TIFF [facility] EMG Electromyography [id number]#1. 00TIFF [facility] Physician Referralon 023 Physician Referral [id number]# 1.00TIFF [facility] Ambulatory Visit Summaryon 1 Ambulatory Visit [...] 9:20 AM EST With: Effie Muhammad Where: [facility] [place] Normal [facility] Office/Clini c Noteon 06-21-2023 [facility] Office/Clinic Note HPI Staff Rakesh is a [...] day(s), # 30 tab(s), Refills(s) 1, Pharmacy: [facility], 176.5, cm, 06/21/23 9:41:00 EDT, Height/Length Dosing, 186.7, kg, 06/21/23 9:41:00 EDT, Weight Dosing meloxicam, 15 mg = 1 tab(s), Oral, Daily, X 30 day(s), # 30 tab(s), Refills(s) 0, Pharmacy: [facility], 176.5, cm, 06/21/23 9:41:00 EDT, Height/Length Dosing, 186.7, kg, 06/21/23 9:41:00 EDT, Weight Dosing meloxicam, 15 mg = 1 tab(s), Oral, Daily, # 30 tab(s), Refills(s) 1, Pharmacy: [facility], 176.5, cm, 05/22/23 9:51:00 EDT, Height/Length Dosing, 190.2, kg, 05/22/23 9:51:00 EDT, Weight Dosing 2. Left sciatic nerve pain (M54.32: Sciatica, left side) pt continues to have left sciatic nerve pain but it is improved Ordered: meloxicam, 15 mg = 1 tab(s), Oral, Daily, X 30 day(s), # 30 tab(s), Refills(s) 1, Pharmacy: [facility], 176.5, cm, 06/21/23 9:41:00 EDT, Height/Length Dosing, 186.7, kg, 06/21/23 9:41:00 EDT, Weight Dosing meloxicam, 15 mg = 1 tab(s), Oral, Daily, X 30 day(s), # 30 tab(s), Refills(s) 0, Pharmacy: [facility], 176.5, cm, 06/21/23 9:41:00 EDT, Height/Length Dosing, 186.7, kg, 06/21/23 9:41:00 EDT, Weight Dosing meloxicam, 15 mg = 1 tab(s), Oral, Daily, # 30 tab(s), Refills(s) 1, Pharmacy: [facility], 176.5, cm, 05/22/23 9:51:00 EDT, Height/Length Dosing, 190.2, kg, 05/22/23 9:51:00 EDT, Weight Dosing phentermine, 37.5 mg = 1 tab(s), Oral, Daily, X 30 day(s), # 30 tab(s), Refills(s) 0, Pharmacy: [facility], 176.5, cm, 05/22/23 9:51:00 EDT, Height/Length Dosing, 190.2, kg, 05/22/23 9:51:00 EDT, Weight Dosing [facility] External Ambulatory Referral 3. Lower extremity numbness (R20.0: Anesthesia of skin) EMG order sent to [facility] in [place] Ordered: [facility] External Ambulatory Referral 4. Morbid obesity due to excess calories (E66.01: Morbid (severe) obesity due to excess calories) BMI education complete Ordered: meloxicam, 15 mg = 1 tab(s), Oral, Daily, X 30 day(s), # 30 tab(s), Refills(s) 1, Pharmacy: [facility], 176.5, cm, 06/21/23 9:41:00 EDT, Height/Length Dosing, 186.7, kg, 06/21/23 9:41:00 EDT, Weight Dosing meloxicam, 15 mg = 1 tab(s), Oral, Daily, X 30 day(s), # 30 tab(s), Refills(s) 0, Pharmacy: [facility], 176.5, cm, 06/21/23 9:41:00 EDT, Height/Length Dosing, 186.7, kg, 06/21/23 9:41:00 EDT, Weight Dosing meloxicam, 15 mg = 1 tab(s), Oral, Daily, # 30 tab(s), Refills(s) 1, Pharmacy: [facility], 176.5, cm, 05/22/23 9:51:00 EDT, Height/Length Dosing, 190.2, kg, 05/22/23 9:51:00 EDT, Weight Dosing phentermine, 37.5 mg = 1 tab(s), Oral, Daily, X 30 day(s), # 30 tab(s), Refills(s) 0, Pharmacy: [facility], 176.5, cm, 05/22/23 9:51:00 EDT, Height/Length Dosing, 190.2, kg, 05/22/23 9:51:00 EDT, Weight Dosing 5. BMI 50.0-59.9, adult (Z68.43: Body mass index [BMI] 50.0-59.9, adult) BMI education complete 6. Non-smoker (Z78.9: Other specified health status) continue not smoking Ordered: meloxicam, 15 mg = 1 tab(s), Oral, Daily, X 30 day(s), # 30 tab(s), Refills(s) 1, Pharmacy: [facility], 176.5, cm, 06/21/23 9:41:00 EDT, Height/Length Dosing, 186.7, kg, 06/21/23 9:41:00 EDT, Weight Dosing meloxicam, 15 mg = 1 tab(s), Or (more content not included)... [facility] Comment on above: Result Comment: Elec tronically Signed By: Effie Muhammad\.br\Date and Time Signed: 06/21/23 14:25 EDT Ambulatory Visit Summaryon 0 05-22-2023 Ambulatory Visit Summary RAKESH PIÑA :1975 Visit Date:05/22/2023 Ambulatory Visit Instructions Your Diagnosis BMI 60.0-69.9, adult Non-smoker Your Care Team Attending Physician - Effie Muhammad Primary Care Physician - Efife Muhammad This Is Your Medications List cranberry [...] 9:20 AM EDT With: Effie Muhammad Where: [facility] Ambulatory Visit Summary RAKESH PIÑA :1975 [...] 9:20 AM EDT With: Effie Muhammad Where: [facility] Family Medicine Office/Clini c Noteon 05-22-2023 [...] in his legs at night. 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 all questions answered. RTC 4 weeks Ordered: meloxicam, 15 mg = 1 tab(s), Oral, Daily, # 30 tab(s), Refills(s) 1, Pharmacy: [facility], 176.5, cm, 05/22/23 9:51:00 EDT, Height/Length Dosing, 190.2, kg, 05/22/23 9:51:00 EDT, Weight Dosing 2. Left sciatic nerve pain (M54.32: Sciatica, left side) will order antiinflammatory. steroid did not give him any relief Ordered: meloxicam, 15 mg = 1 tab(s), Oral, Daily, # 30 tab(s), Refills(s) 1, Pharmacy: [facility], 176.5, cm, 05/22/23 9:51:00 EDT, Height/Length Dosing, 190.2, kg, 05/22/23 9:51:00 EDT, Weight Dosing phentermine, 37.5 mg = 1 tab(s), Oral, Daily, X 30 day(s), # 30 tab(s), Refills(s) 0 phentermine, 37.5 mg = 1 tab(s), Oral, Daily, X 30 day(s), # 30 tab(s), Refills(s) 0, Pharmacy: [facility], 176.5, cm, 05/22/23 9:51:00 EDT, Height/Length Dosing, 190.2, kg, 05/22/23 9:51:00 EDT, Weight Dosing 3. BMI 60.0-69.9, adult (Z68.44: Body mass index [BMI] 60.0-69.9, adult) BMI education complete Ordered: meloxicam, 15 mg = 1 tab(s), Oral, Daily, # 30 tab(s), Refills(s) 1, Pharmacy: [facility], 176.5, cm, 05/22/23 9:51:00 EDT, Height/Length Dosing, 190.2, kg, 05/22/23 9:51:00 EDT, Weight Dosing 4. Morbid obesity due to excess calories (E66.01: Morbid (severe) obesity due to excess calories) see above Ordered: meloxicam, 15 mg = 1 tab(s), Oral, Daily, # 30 tab(s), Refills(s) 1, Pharmacy: [facility], 176.5, cm, 05/22/23 9:51:00 EDT, Height/Length Dosing, 190.2, kg, 05/22/23 9:51:00 EDT, Weight Dosing phentermine, 37.5 mg = 1 tab(s), Oral, Daily, X 30 day(s), # 30 tab(s), Refills(s) 0 phentermine, 37.5 mg = 1 tab(s), Oral, Daily, X 30 day(s), # 30 tab(s), Refills(s) 0, Pharmacy: [facility], 176.5, cm, 05/22/23 9:51:00 EDT, Height/Length Dosing, 190.2, kg, 05/22/23 9:51:00 EDT, Weight Dosing 5. Non-smoker (Z78.9: Other specified health status) continue not smoking Ordered: meloxicam, 15 mg = 1 tab(s), Oral, Daily, # 30 tab(s), Refills(s) 1, Pharmacy: [facility], 176.5, cm, 05/22/23 9:51:00 EDT, Height/Length Dosing, 190.2, kg, 05/22/23 9:51:00 EDT, Weight Dosing phentermine, 37.5 mg = 1 tab(s), Oral, Daily, X 30 day(s), # 30 tab(s), Refills(s) 0 phentermine, 37.5 mg = 1 tab(s), Oral, Daily, X 30 day(s), # 30 tab(s), Refills(s) 0, Pharmacy: [facility], 176.5, cm, 05/22/23 9:51:00 EDT, Height/Length [...] Oral, Daily Allerg (more content not included)... [facility] Comment on above: Result Comment: Elec tronically Signed By: Effie Muhammad\.jessica\Date and Time Signed: 05/22/23 10:34 EDT [place] 04-26-2023 Consent [id number] .00CD:127 Normal [facility] Family Medicine Office/Clini c Noteon [...] kenalog 60mg IM in office today. [facility] Comment on above: Result Comment: [...] 11:00 AM EDT With: Effie Muhammad Where: [facility] [place] Normal [facility] Auto Diffon 03-19-2023 Basophils/100 WBC (Bld) 0.3 % Normal 0.0-2.0 [facility] Comment on above: Order Comment: Order Added by Discern Expert. Performed By: #### 2 [id number], [id number], [id number], [id number] ####[facility] [address] [place] [address] Basophils/Leukocytes Auto (Bld) [Pure # fraction] 0.0 E9/L Normal 0.0-0.2 [facility] Comment on above: Order Comment: Order Added by Discern Expert. Performed By: #### 2 901842, [id number], 7087953, [id number] ####[facility] [address] [place] [address] Eosinophils/100 WBC (Bld) 2.1 % Normal 0.0-8.0 [facility] Comment on above: Order Comment: Order Added by Discern Expert. Performed By: #### 2 934236, [id number], 6478525, [id number] ####[facility] [address] [place] [address] Eosinophils/Leukocytes Auto (Bld) [Pure # fraction] 0.2 E9/L Normal 0.0-0.5 [facility] Comment on above: Order Comment: Order Added by Discern Expert. Performed By: #### 2 741998, 5992799, 0800945, [id number], [id number] ####[facility] [address] [place] [address] Lymphocytes/100 WBC (Bld) 20.5 % Normal 14.0-50.0 [facility] Comment on above: Order Comment: Order Added by Discern Expert. Performed By: #### 2 321074, 5165970, 3670584, 1087216, [id number] ####[facility] [address] [place] [address] Lymphocytes/Leukocytes Auto (Bld) [Pure # fraction] 1.6 E9/L Normal 1.0-4.0 [facility] Comment on above: Order Comment: Order Added by Discern Expert. Performed By: #### 2 [id number] ####[address] [address] Monocytes/100 WBC (Bld) 8.7 % Normal 4.0-14.0 [facility] Comment on above: Order Comment: Order Added by Discern Expert. Performed By: #### 2 [id number] ####[address] [address] Monocytes/Leukocytes Auto (Bld) [Pure # fraction] 0.7 E9/L Normal 0.2-1.0 [facility] Comment on above: Order Comment: Order Added by Discern Expert. Performed By: #### 2 [id number], [id number], [id number] ####[facility] [id number] [place] [address] Neutrophils/100 WBC (Bld) 68.4 % Normal 36.0-75.0 [facility] Comment on above: Order Comment: Order Added by Discern Expert. Performed By: #### 2 [id number], [id number], 9133544, 2212935, [id number] ####[facility] [address] [place] [address] Neutrophils/Leukocytes Auto (Bld) [Pure # fraction] 5.3 E9/L Normal 2.0-7.5 [facility] Comment on above: Order Comment: Order Added by Discern Expert. Performed By: #### 2 623495, 4621987, 3288966, 1961449, [id number] ####[facility] [address] [place] [address] CBC w/ Auto Diffon Erythrocyte distribution width (RBC) [Ratio] 16.3 % High 10.9-14.2 [facility] Comment on above: Performed By: #### 2 366072, 2283654, 3159432, 7908193, [id number] ####[address] [place] [address] Hematocrit (Bld) [Volume fraction] 43.7 % Normal 37.7-49.0 [facility] Comment on above: Performed By: #### 2 699921, 4884200, 3733863, 7454121, 22556064 ####[address] [address] Hemoglobin (Bld) [Mass/Vol] 14.4 g/dL Normal 13.5-17.5 [facility] Comment on above: Performed By: #### 2 516306, 2961897, 7546378, 0751154, [id number] ####[address] [address] MCH (RBC) [Entitic mass] 27.9 pg Normal 27.0-34.0 [facility] Comment on above: Performed By: #### 2 916073, 7510453, 0182806, 4455992, 38563766 ####[address] [place] [address] MCHC (RBC) [Mass/Vol] 33.0 g/dL Normal 31.4-36.[address] [facility] Comment on above: Performed By: #### 2 308016, 5847475, 3927374, 4470833, 83386416 ####[address] [address] MCV (RBC) [Entitic vol] 84.8 fL Normal 80.0-100.0 [facility] Comment on above: Performed By: #### 2 517869, 0412794, 7348833, 4137843, 30229542 ####[facility] [address] [place] [address] Platelet mean volume (Bld) [Entitic vol] 7.7 fL Normal 6.4-10.8 [facility] Comment on above: Performed By: #### 2 309568, 8401843, 7073909, 5860568, [id number] ####[address] [place] [address] Platelets (Bld) [#/Vol] 278.0 E9/L Normal 150.0-500.0 [facility] Comment on above: Performed By: #### 2 502033, 0118741, 1678439, 2315049, 18058220 ####[address] [address] RBC (Bld) [#/Vol] 5.2 E12/L Normal 4.3-5.9 [facility] Comment on above: Performed By: #### 2 407264, 1372153, 5448331, 5907201, 75780306 ####[facility] [address] [place] [address] WBC corrected for nucl RBC Auto (Bld) [#/Vol] 7.7 E9/L Normal 4.0-11.0 [facility] Comment on above: Performed By: #### 2 765459, 3230381, 6560087, 1226551, 37401982 ####[facility] [address] [place] [address] CHEMISTRYOrdered By: SYSTEM SYSTEM on 03-19-2023 Cholesterol [...] tab(s), Refills(s) 0, Pharmacy: [facility]/pharmacy #[id number], 176.5, cm, 03/19/23 13:15:00 EDT, Height/Length Dosing phentermine, 37.5 mg = 1 tab(s), Oral, Daily, # 30 tab(s), Refills(s) 0, Pharmacy: [facility]/pharmacy #[id number], 176.5, cm, 03/19/23 [...] tab(s), Refills(s) 0, Pharmacy: [facility]/pharmacy #[id number], 176.5, cm, 03/19/23 13:15:00 EDT, Height/Length Dosing phentermine, 37.5 mg = 1 tab(s), Oral, Daily, # 30 tab(s), Refills(s) 0, [id number] 176.5, cm, 03/19/23 13:15:00 EDT, Height/Length Dosing CBC w/ Auto Diff Cologuard Screening Test Lipid Panel PSA Screen, Total Thyroid Stimulating Hormone 3. Non-smoker (Z78.9: Other specified health status) continue not smoking Ordered: methylPREDNISolone, = 1 packet(s), Oral, As Directed, as directed on package labeling, X 6 day(s), # 21 tab(s), Refills(s) 0, [id number], 176.5, cm, 03/19/23 13:15:00 EDT, Height/Length Dosing phentermine, 37.5 mg = 1 tab(s), Oral, Daily, # 30 tab(s), Refills(s) 0, [id number], 176.5, cm, 03/19/23 13:15:00 EDT, Height/Length Dosing CBC w/ Auto Diff Cologuard Screening Test Lipid Panel PSA Screen, Total Thyroid Stimulating Hormone 4. Left sciatic nerve pain (M54.32: Sciatica, left side) medrol dose pack sent Ordered: methylPREDNISolone, = 1 packet(s), Oral, As Directed, as directed on package labeling, X 6 day(s), # 21 tab(s), Refills(s) 0, [id number], 176.5, cm, 03/19/23 13:15:00 EDT, Height/Length Dosing phentermine, 37.5 mg = 1 tab(s), Oral, Daily, # 30 tab(s), Refills(s) 0, Pharmacy: [facility]/pharmacy #[id number], 176.5, cm, 03/19/23 13:15:00 EDT, Height/Length Dosing Colon cancer screening (Z12.11: (more content not included)... Normal [facility] Comment on above: Result Comment: Elec tronically Signed By: Effie Muhammad\.br\Date and Time Signed: 03/19/23 14:00 EDT Formson 03-19-2023 Forms [id number]:127 Normal [facility] HEMATOLOGYOrdered By: SYSTEM SYSTEM on 03-19-2023 [...] 33.0 g/dL Normal 31.4 - 36.0 gm/dL [facility] HemeAutoSS MCV (RBC) [Entitic vol] 84.8 fL Normal 80.0 - 100.0 fL [facility] HemeAutoSS Platelet mean volume (Bld) [Entitic vol] 7.7 fL Normal 6.4 - 10.8 fL [facility] HemeAutoSS Platelets (Bld) [#/Vol] 278.0 E9/L Normal 150.0 - 500.0 E9/L [facility] HemeAutoSS RBC (Bld) [#/Vol] 5.2 E12/L Normal 4.3 - 5.9 E12/L [facility] HemeAutoSS WBC corrected for nucl RBC Auto (Bld) [#/Vol] 7.7 E9/L Normal 4.0 - 11.0 E9/L [facility] HemeAutoSS Lipid Panelon 03-19-2023 Cholesterol [Mass/Vol] 171 mg/dL Normal 120-200 [facility] Comment on above: Performed By: #### 2 378589, 9742507, 6631801, 7309297, [id number] ####[facility] [address] [place] [address] Cholesterol in HDL [Mass/Vol] 39 mg/dL Invalid Interpretation Code [facility] Comment on above: Result Comment: HDL > or equal to 60 mg/dL: Low cardiovascular risk HDL < 40 mg/dL : High cardiovascular risk Performed By: #### 2 925340, 8371696, 7473129, 3297215, 13777244 ####[facility] [address] [place] [address] Cholesterol in LDL [Mass/Vol] 112 mg/dL Normal <=129 [facility] Comment on above: Performed By: #### 2 688507, 7453163, 7181107, 3810166, 06972746 ####[facility] [address] [place] [address] Cholesterol in VLDL [Mass/Vol] 19 mg/dL Normal 7-40 [facility] Comment on above: Performed By: #### 2 322494, 7856314, 7411607, 2122518, 74468348 ####[facility] [address] [place] [address] Triglyceride [Mass/Vol] 94 mg/dL Normal <=149 [facility] Comment on above: Performed By: #### 2 522624, 0283520, 5446830, 7627855, 97243455 ####[facility] [address] [place] [address] PSA Screen, Totalon 03-19-20 23 Prostate specific Ag [Mass/Vol] 0.9 ng/mL Normal 0.1-3.5 [facility] Comment on above: Result Comment: The concentration of PSA determined by different manufacturers can vary due to differences in assay methods and reagent specificity. Values obtained from different assay methods cannot be used interchangeably. The methodology used for this result was chemiluminescence using [email or web address]'s [employer] Hybrite[employer] PSA reagent. Performed By: #### 2 181699, 0038727, 3899985, 9205906, 95999347 ####[facility] [address] [place] [address] TSHon 03-19-2023 TSH Qn 2.03 m[IU]/L Normal 0.34-5.60 [facility] Comment on above: Performed By: #### 2 862806, 7196774, 0819022, 0986678, 89278027 ####[facility] [address] [place] [address] Covid-19 PCR (CVDTB)on 07-11 SARS-CoV-2 (COVID-19) RNA BETHANY+probe Ql (Unsp spec) Not detected Normal NOT DETECTED [facility] Comment on above: Result Comment: When [...] for this test is supported by the [place] of Health and Human Service's declaration that [...] used). Performed By: #### C VDTBH #### [facility] [address] [place] [address] Dr. Mynor Yun GROUP A STREP CULTUREon 07-11 S. pyogenes Ag Ql (Unsp spec) Culture Observations: NEGATIVE FOR GROUP A STREPTOCOCCUS. Normal [facility] Comment on above: Performed By: #### G RASTCX #### [facility] [address] [place] [address] Dr. Mynor Yun INFLUENZA A AND B AGon 07-[facility] BELOW Normal [facility] Comment on above: Result Comment: Nega tive for Flu A protein angiten. Infection due to Flu A cannot be ruled out. Flu A angiten in the sample may be below the detection limit of the test. Performed By: #### I NFLUAB #### [facility] [address] [place] [address] Dr. Mynor Yun INFLUBNEG SEE BELOW Normal [facility] Comment on above: Result Comment: Nega tive for Flu B protein antigen. Infection due to Flu B cannot be ruled out. Flu B antigen in the sample may be below the detection limit of the test. Performed By: #### I NFLUAB #### [facility] [address] [place] [address] Dr. Mynor Yun INFLUENZA A AG Negative Normal NEGATIVE SEE COMMENT [facility] Comment on above: Performed By: #### I NFLUAB #### [facility] [address] [place] [address] Dr. Mynor Yun INFLUENZA B AG Negative Normal NEGATIVE SEE COMMENT [facility] Comment on above: Performed By: #### I NFLUAB #### [facility] [address] [place] [address] Dr. Mynor Yun INTERNAL CONTROLS Within Normal Limits Normal Wi thin Normal Limits [facility] Comment on above: Performed By: #### I NFLUAB #### [facility] [address] [place] [address] Dr. Mynor Yun STREPT SCREENon 07-28-2022 STREP SCREEN A Negative Normal NEGATIVE [facility] Comment on above: Performed By: #### S SCRN #### [facility] [address] [place] [address] Dr. Mynor Yun XR SINUSES 3 VIEWS [...] KELLIE SMALLS Date: 2022-02-01 09:58 Normal [facility] HAND LEFT 3 [facility] 12-29-2021 HAND LEFT 3 [facility] Department of Radiology [address] [place] [id number] Patient Name: RAKESH PIÑA : 1975 Sex: M Age: Race: White Pt. Location: Patient Status: D Ordered Date: 12/29/2021 11:45:00 AM Completed Date: 12/29/2021 11:50 AM Requesting Provider: LORI DALLAS Attending Provider: LORI DALLAS Report Copy To: Signs & Symptoms: M79.642 Pain in left hand I10 History: Comments: Evaluate Exam: HAND LEFT 3 S HAND LEFT 3 S 12/29/2021 11:50 AM [...] alignment. Electronically signed: Edgardo Montana. Transcribed by: [email or web address], User Resident: Electronically Signed by: EDGARDO MONTANA @ 12/31/2021 08:55 AM Normal [facility] Comment on above: Order Comment: Evalu ate HAND LEFT 3 Son 12-08-2021 HAND LEFT 3 [facility] Department of Radiology [address] [place] [id number] Patient Name: RAKESH PIÑA : 1975 Sex: M Age: Race: White Pt. Location: Patient Status: D Ordered Date: 12/08/2021 1:25:00 PM Completed Date: 12/08/2021 01:29 PM Requesting Provider: LORI DALLAS Attending Provider: LORI DALLAS Report Copy To: Signs & Symptoms: M79.642 Pain in left hand I10 History: [place] Comments: Evaluate Exam: HAND LEFT 3 S HAND LEFT 3 VWS 12/08/2021 1:29 PM [...] bridging. Electronically signed: Ronaldo Major. Transcribed by: [email or web address], User Resident: Electronically Signed by: RONALDO MAJOR @ 12/09/2021 04:04 PM Normal [facility] Comment on above: Order Comment: Evalu ate HAND LEFT 3 Son 11-14-2021 HAND LEFT 3 S [facility] Department of Radiology [address] [place] [id number] Patient Name: RAKESH PIÑA : 1975 [...] fracture. Electronically signed: Timo Smith. Transcribed by: [email or web address], User Resident: Electronically Signed by: TIMO SMITH @ 11/14/2021 08:02 PM Normal [facility] Comment on above: Order Comment: Views (X-RAY, HAND): PA, Lateral, Oblique TESTOSTERONE, TOTALon 2021 Testosterone [Mass/Vol] 411 ng/dL Normal 264-916 [facility] Comment on above: Result Comment: Adul t male reference interval is based on a population of healthy nonobese males (BMI <30) between 19 and 39 years old. Iron, et.al. JCEM 2017,102;4668-6467. PMID: [id number]. Performed By: #### T ESTTOT #### [facility] [address] [address] [address] Mynor Yun CBC AUTO DIFFon 11-11-2021 BASO # 0.0 103/ul Normal 0.0-0.1 [facility] Comment on above: Performed By: #### C BC #### [facility] [id number] Mynor Yun Basophils/100 WBC (Bld) 0.2 % Normal 0.2-2.0 [facility] Comment on above: Performed By: #### C BC #### [facility] [address] [place] [address] Dr. Mynor Yun EO # 0.1 103/ul Normal 0.0-0.7 [facility] Comment on above: Performed By: #### C BC #### [facility] [address] [place] [address] Dr. Mynor Yun Eosinophils/100 WBC (Bld) 1.2 % Normal 0.9-7.0 [facility] Comment on above: Performed By: #### C BC #### [facility] [address] [place] [address] Dr. Mynor Yun Erythrocyte distribution width (RBC) [Ratio] 14.3 % Normal 11.0-15.0 [facility] Comment on above: Performed By: #### C BC #### [facility] [address] [place] [address] Dr. Mynor Yun Hematocrit (Bld) [Volume fraction] 47.3 % Normal 42.0-54.0 [facility] Comment on above: Performed By: #### C BC #### [facility] [address] [place] [address] Dr. Mynor Yun Hemoglobin (Bld) [Mass/Vol] 15.2 g/dL Normal 14.0-18.0 [facility] Comment on above: Performed By: #### C BC #### [facility] [address] [place] [address] Dr. Mynor Yun IG # 0.03 10e3/ul Normal 0.00-0.03 [facility] Comment on above: Performed By: #### C BC #### [facility] [address] [place] [address] Dr. Mynor Yun IG % 0.3 % Normal 0.0-0.5 [facility] Comment on above: Performed By: #### C BC #### [facility] [address] [place] [address] Dr. Mynor Yun LYMPH # 1.6 103/ul Normal 1.2-3.8 [facility] Comment on above: Performed By: #### C BC #### [facility] [address] [address] [address] Mynor Yun Lymphocytes/100 WBC (Bld) 18.4 % Critically low 20.5-60.0 [facility] Comment on above: Performed By: #### C BC #### [facility] [address] [place] [address] Dr. Mynor Yun MANUAL DIFF REQ NO Normal [facility] Comment on above: Performed By: #### C BC #### [facility] [address] [address] [address] Mynor Yun MCH (RBC) [Entitic mass] 28.8 pg Normal 25.9-34.0 [facility] Comment on above: Performed By: #### C BC #### [facility] [address] [place] [address] Dr. Mynor Yun MCHC (RBC) [Mass/Vol] 32.1 g/dL Normal 29.9-35.2 [facility] Comment on above: Performed By: #### C BC #### [facility] [address] [place] [address] Dr. Mynor Yun MCV (RBC) [Entitic vol] 89.8 fL Normal 80.0-94.0 [facility] Comment on above: Performed By: #### C BC #### [facility] [address] [place] [address] Dr. Mynor Yun MONO # 0.7 103/ul Normal 0.3-0.8 [facility] Comment on above: Performed By: #### C BC #### [facility] [address] [place] [address] Dr. Mynor Yun Monocytes/100 WBC (Bld) 8.4 % Normal 1.7-12.0 [facility] Comment on above: Performed By: #### C BC #### [facility] [address] [place] [address] Dr. Mynor Yun NEUT # 6.2 103/ul Normal 1.4-6.5 [facility] Comment on above: Performed By: #### C BC #### [facility] [address] [place] [address] Dr. Mynor Yun Neutrophils/100 WBC (Bld) 71.5 % Normal 43.0-75.0 [facility] Comment on above: Performed By: #### C BC #### [facility] [address] [place] [address] Dr. Mynor Yun Platelet mean volume (Bld) [Entitic vol] 8.7 fL Critically low 9.5-13.5 [facility] Comment on above: Performed By: #### C BC #### [facility] [address] [place] [address] Dr. Mynor Yun PLT 263 103/ul Normal 150-450 [facility] Comment on above: Performed By: #### C BC #### [facility] [address] [place] [address] Dr. Mynor Yun RBC 5.27 106/ul Normal 4.70-6.10 [facility] Comment on above: Performed By: #### C BC #### [facility] [address] [place] [address] Dr. Mynor Yun WBC 8.7 103/ul Normal 4.0-11.0 [facility] Comment on above: Performed By: #### C BC #### [facility] [address] [place] [address] Dr. Mynor Yun LIPID PROFILEon 11-11-2021 CHOL-HDL RATIO NORM SEE BELOW Normal [facility] Comment on above: Result Comment: 3.3 - 4.4 LOW RISK 4.4 - 7.1 AVERAGE RISK 7.1 - 11.0 MODERATE RISK >11.0 HIGH RISK Performed By: #### S SCRN #### [facility] [address] [place] [address] Dr. Mynor Yun Cholesterol [Mass/Vol] 129 mg/dL Normal <=200 [facility] Comment on above: Performed By: #### S SCRN #### [facility] [address] [place] [address] Dr. Mynor Yun Cholesterol in HDL [Mass/Vol] 34 mg/dL Normal [facility] Comment on above: Performed By: #### S SCRN #### [facility] [address] [address] [address] Mynor Yun Cholesterol in LDL [Mass/Vol] 82.2 mg/dL Normal [facility] Comment on above: Performed By: #### S SCRN #### [facility] [address] [address] [address] Mynor Yun Cholesterol.total/Chol esterol in HDL [Mass ratio] 3.8 {ratio} Normal [facility] Comment on above: Performed By: #### S SCRN #### [facility] [address] [address] [address] Mynor Yun HDL NORMAL > or = 60 mg/dl - LO W CARDIOVASCULAR RISK <40 mg/dl - HIGH CARDIOVASCULAR RISK Normal [facility] Comment on above: Performed By: #### S SCRN #### [facility] [address] [place] [address] Dr. Mynor Yun LDL CALC NORMAL SEE BELOW Normal [facility] Comment on above: Result Comment: <100 mg/dl OPTIMAL 100 - 129 mg/dl NEAR OR ABOVE OPTIMAL 130 - 159 mg/dl BORDERLINE HIGH 160 - 189 mg/dl HIGH >190 mg/dl VERY HIGH Performed By: #### S SCRN #### [facility] [address] [place] [address] Dr. Mynor Yun Triglyceride [Mass/Vol] 64 mg/dL Normal <=150 [facility] Comment on above: Performed By: #### S SCRN #### [facility] [address] [address] [address] Mynor Yun VLDL CALC 12.8 mg/dL Normal [facility] Comment on above: Performed By: #### S SCRN #### [facility] [address] [address] [address] Mynor Yun PROF 14(COMP METB)on 022 Albumin [Mass/Vol] 3.8 g/dL Normal 3.5-5.[address] [facility] Comment on above: Performed By: #### T SH, LIPID, CMP #### [facility] [address] [place] [address] Dr. Mynor Yun Albumin/Globulin [Mass ratio] 0.9 {ratio} Normal [facility] Comment on above: Performed By: #### T SH, LIPID, CMP #### [facility] [address] [address] [address] Mynor Yun ALP [Catalytic activity/Vol] 76 U/L Normal 38-126 [facility] Comment on above: Performed By: #### T SH, LIPID, CMP #### [facility] [address] [place] [address] Dr. Mynor Yun ALT [Catalytic activity/Vol] 49 U/L Normal 21-72 [facility] Comment on above: Performed By: #### T SH, LIPID, CMP #### [facility] [address] [place] [address] Dr. Mynor Yun Anion gap [Moles/Vol] 11.2 mmol/L Normal [facility] Comment on above: Performed By: #### T SH, LIPID, CMP #### [facility] [address] [place] [address] Dr. Mynor Yun AST [Catalytic activity/Vol] 31 U/L Normal 17-59 [facility] Comment on above: Performed By: #### T SH, LIPID, CMP #### [facility] [address] [place] [address] Dr. Mynor Yun Bilirubin [Mass/Vol] 0.5 mg/dL Normal 0.2-1.3 [facility] Comment on above: Performed By: #### T SH, LIPID, CMP #### [facility] [address] [place] [address] Dr. Mynor Yun Calcium [Mass/Vol] 9.0 mg/dL Normal 8.4-10.[address] [facility] Comment on above: Performed By: #### T SH, LIPID, CMP #### [facility] [address] [place] [address] Dr. Mynor Yun Chloride [Moles/Vol] 104 mmol/L Normal 98-107 [facility] Comment on above: Performed By: #### T SH, LIPID, CMP #### [facility] [address] [place] [address] Dr. Mynor Yun CO2 [Moles/Vol] 30.6 mmol/L Critically high 22.0-30.0 [facility] Comment on above: Performed By: #### T SH, LIPID, CMP #### [facility] [address] [address] [address] Mynor Yun Creatinine [Mass/Vol] 0.95 mg/dL Normal 0.66-1.25 [facility] Comment on above: Performed By: #### T SH, LIPID, CMP #### [facility] [address] [address] [address] Mynor Yun EGFR-AF EGYPTIAN >60 Normal >=60 [facility] Comment on above: Performed By: #### T SH, LIPID, CMP #### [facility] [address] [address] [address] Mynor Yun EGFR-NON AF EGYPTIAN >60 Normal >=60 [facility] Comment on above: Performed By: #### T SAMARIA, LIPID, CMP #### [facility] [address] [address] [address] Mynor Yun Globulin (S) [Mass/Vol] 4.3 g/dL Normal [facility] Comment on above: Performed By: #### T SAMARIA, LIPID, CMP #### [facility] [address] [address] [address] Mynor Yun Glucose [Mass/Vol] 104 mg/dL Normal 74-106 [facility] Comment on above: Performed By: #### T SAMARIA, LIPID, CMP #### [facility] [address] [address] [address] Mynor Yun Potassium [Moles/Vol] 3.8 mmol/L Normal 3.4-5.0 [facility] Comment on above: Performed By: #### T SH, LIPID, CMP #### [facility] [address] [address] [address] Mynor Yun Protein [Mass/Vol] 8.1 g/dL Normal 6.1-8.[address] [facility] Comment on above: Performed By: #### T SH, LIPID, CMP #### [facility] [address] [address] [address] Mynor Yun Sodium [Moles/Vol] 142 mmol/L Normal 137-145 [facility] Comment on above: Performed By: #### T SH, LIPID, CMP #### [facility] [address] [place] [address] Dr. Mynor Yun Urea nitrogen [Mass/Vol] 11.0 mg/dL Normal 9.0-20.0 [facility] Comment on above: Performed By: #### T SH, LIPID, CMP #### [facility] [address] [address] [address] Mynor Yun Urea nitrogen/Creatinine [Mass ratio] 11.6 mg/mg Normal [facility] Comment on above: Performed By: #### T SH, LIPID, CMP #### [facility] [address] [place] [address] Dr. Mynor Yun TSHon 11-11-2021 TSH 1.612 uIU/mL Normal 0.470-4.680 [facility] Comment on above: Performed By: #### T SH, LIPID, CMP #### [facility] [address] [address] [address] Mynor Yun TSH RANGE SEE BELOW Normal [facility] Comment on above: Result Comment: <0.3 4 UIU/ml HYPERTHYROID 0.34-5.60 UIU/ml EUTHYROID >5.60 UIU/ml HYPOTHYROID Performed By: #### T SH, LIPID, CMP #### [facility] [address] [place] [address] Dr. Mynor Yun Vital Signs Date Time Vital Sign Value Performing Clinician Faci lity 02-10-2025 10:00-0400 Body mass index (BMI) [Ratio] 56.85 kg/m2 Iris ALBARRAN [facility] 02-10-2025 10:00-0400 Body weight 174.63 kg Iris ALBARRAN [facility] 01-23-2025 09:34-0400 Body height 175.3 cm Nury Potter MD Work Phone: [facility] 01-23-2025 09:34-0400 Body mass index (BMI) [Ratio] 56.88 kg/m2 Nury Potter MD Work Phone: [facility] 01-23-2025 09:34-0400 Body weight 174.73 kg Nury Potter MD Work Phone: [facility] 01-23-2025 09:34-0400 Diastolic blood pressure 108 mm[Hg] Nury Potter MD Work Phone: [facility] 01-23-2025 09:34-0400 Systolic blood pressure 179 mm[Hg] Nury Potter MD Work Phone: [facility] 01-08-2025 09:00-0400 Body mass index (BMI) [Ratio] 55.17 kg/m2 Iris [facility] 01-08-2025 09:00-0400 Body weight 176.9 kg Iris Quinn [facility] 12-09-2024 09:00-0400 Body height 179.1 cm Iris Quinn [facility] 11-28-2024 09:48-0400 Body height 179.1 cm Nury Potter MD Work Phone: [facility] 11-28-2024 09:48-0400 Body mass index (BMI) [Ratio] 55.17 kg/m2 Nury Potter MD Work Phone: [facility] 11-28-2024 09:48-0400 Body weight 176.9 kg Nury Potter MD Work Phone: [facility] 11-05-2024 10:17-0500 Body height 175.3 cm Pedro Conte DPM Work Phone: [facility] 11-05-2024 10:17-0500 Body mass index (BMI) [Ratio] 55.38 kg/m2 Pedro Conte DPM Work Phone: [facility] 11-05-2024 10:17-0500 Body weight 170.1 kg Pedro Rusher DPM Work Phone: [facility] 10-08-2024 10:31-0500 Body height 175.3 cm Pedro Conte DPM Work Phone: [facility] 10-08-2024 10:31-0500 Body mass index (BMI) [Ratio] 55.38 kg/m2 Pedro Conte DPM Work Phone: [facility] 10-08-2024 10:31-0500 Body weight 170.1 kg Pedro Conte DPM Work Phone: [facility] Healthcare Encounters Encounter Date Encounter Type Care Provider Facility Start: 03-16-2025 End: 03-16-2025 Orders Only Nury Potter MD Work Phone: [facility] General Surgery-Bariatric Comment on above: Low 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 Start: 02-10-2025 End: 02-10-2025 Telemedicine consultation with patient Iris Quinn [facility] Comment on above: Dietary counseling a nd surveillance (Primary Dx); Morbid obesity ([facility]) Start: 02-10-2025 End: 02-10-2025 [facility] Start: 01-23-2025 End: 01-23-2025 Office outpatient visit 25 minutes Nury Potter MD Work Phone: [facility] General Surgery Comment on above: Insulin resistance ( Primary Dx); Morbid obesity ([facility]); Low 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 Start: 01-23-2025 End: 01-23-2025 ambulatory [place] Pam POTTER [facility] Start: 01-08-2025 End: 01-08-2025 ambulatory [facility] Start: 01-08-2025 End: 01-08-2025 Telemedicine consultation with patient Iris Quinn [facility] Comment on above: Dietary counseling a nd surveillance (Primary Dx); Morbid obesity ([facility]); History of sleeve gastrectomy Start: 12-29-2024 End: 12-29-2024 ambulatory Wilbert Buckner MD Facility:[facility] Start: 12-09-2024 End: 12-09-2024 Telemedicine consultation with patient Iris Quinn [facility] Comment on above: Dietary counseling a nd surveillance (Primary Dx); Morbid obesity ([facility]); History of sleeve gastrectomy Start: 12-09-2024 End: 12-09-2024 ambulatory IRIS QUINN [facility] Start: 12-01-2024 End: 12-01-2024 ambulatory [facility] Start: 11-28-2024 End: 11-28-2024 Office outpatient new 45 minutes Nury Potter MD Work Phone: [facility] General Surgery Comment on above: History of sleeve ga strectomy (Primary Dx); Morbid obesity with BMI of 50.0-59.9, adult ([facility] Start: 11-28-2024 End: 11-28-2024 ambulatory [facility] Start: 11-26-2024 End: 11-26-2024 ambulatory PEDRO CONTE Not Available Start: 11-05-2024 End: 11-05-2024 Bamboo flowsheet Pedro Conte DPM Work Phone: [facility] Start: 11-05-2024 End: 11-05-2024 Bamboo flowsheet Pedro Conte DPM Work Phone: [facility] Start: 11-05-2024 End: 11-05-2024 ambulatory PEDRO CONTE Not Available Start: 11-05-2024 End: 11-05-2024 Postop follow up visit related to original px Pedro Conte DPM Work Phone: [facility] Comment on above: Valgus deformity, no t elsewhere classified, right ankle (Primary Dx); Valgus deformity, not elsewhere classified, left ankle; Instability of left foot joint; Instability of right foot joint; Leg length discrepancy; Posterior tibial tendon dysfunction, bilateral Start: 10-08-2024 End: 10-08-2024 Bamboo flowsheet Pedro Conte DPM Work Phone: [facility] Start: 10-08-2024 End: 10-08-2024 Bamboo flowsheet Pedro Conte DPM Work Phone: [facility] Start: 10-08-2024 End: 10-30-2024 Telephone encounter Emily Kaur LAYLA [facility] Comment on above: [facility] Start: 10-08-2024 End: 10-08-2024 Office outpatient new 30 minutes Pedro Conte DPM Work Phone: [facility] Comment on above: Valgus deformity, no t elsewhere classified, right ankle (Primary Dx); Valgus deformity, not elsewhere classified, left ankle; Instability of left foot joint; Instability of right foot joint; Leg length discrepancy Start: 10-08-2024 End: 10-08-2024 ambulatory PEDRO CONTE Not Available Start: 09-01-2024 End: 09-01-2024 ambulatory Andrius Vytautas Erikitis Facility: [place] Start: 07-21-2024 End: 07-21-2024 ambulatory Andrius Vytautas Erikitis Facility: [place] Start: 06-30-2024 End: 06-30-2024 ambulatory Andrius Vytautas Erikitis Facility: [place] Start: 03-10-2024 End: 03-10-2024 ambulatory Andrius Kennedyytautas Erikitis Facility: [place] Start: 02-25-2024 End: 02-25-2024 ambulatory Andrius Vytautas Erikitis Facility: [place] Start: 02-18-2024 End: 02-18-2024 ambulatory Andrius Vytautas Erikitis Facility: [place] Start: 01-23-2024 End: 01-26-2024 ambulatory EFFIE TORSTEN [facility] Start: 01-16-2024 End: 01-16-2024 ambulatory Effie L Torsten Facility:[facility] [place] Start: 01-14-2024 End: 01-14-2024 ambulatory Effie L Torsten Facility:[facility] [place] Start: 01-09-2024 End: 01-09-2024 ambulatory Effie L Torsten Facility:[facility] [place] Start: 08-23-2023 End: 08-23-2023 Lab Drop off Effie L Torsten [facility] Start: 08-23-2023 End: 08-23-2023 ambulatory Effie L Torsten Facility:[facility] Start: 07-26-2023 End: 07-26-2023 ambulatory Effie L Torsten Facility:[facility] [place] Start: 06-21-2023 End: 06-21-2023 ambulatory [facility] L Torsten [facility] Start: 05-22-2023 End: 05-22-2023 ambulatory [facility] L Tor[facility] Start: 04-24-2023 End: 04-24-2023 ambulatory Effie L Torsten [facility] Start: 03-19-2023 End: 03-19-2023 ambulatory Effie L Torsten Facility:[facility] Start: 03-19-2023 End: 03-19-2023 Lab Drop off Effie L Torsten [facility] Start: 03-19-2023 End: 03-19-2023 ambulatory [facility] L Torsten [facility] Start: 03-15-2023 ambulatory [facility] Tor[facility] Start: 07-28-2022 End: 07-28-[address] LULU BLANK Facility:[facility] Start: 02-01-2022 End: 02-02-[address] LULU BLANK Facility:[facility] Start: 11-15-2021 Encounter for genera l adult medical examination without abnormal findings DR LULU BLANK [facility] Start: 11-11-2021 End: 11-12-[address] LULU BLANK Facility:[facility] Start: 11-11-2021 End: 11-12-2021 Encounter for general adult medical examination without abnormal findings DR LULU BLANK Facility:[facility] Start: 11-10-2021 End: 11-11-2021 ambulatory MAZIN CANO Facility: Procedures Date Procedure Procedure Detail Performing Clinician Start: 01-08-2025 Follow-up visit Follow-up DUONG QUINN Gastric sleeve Effie Mancilla Comment on above: 2009 Plan of Treatment Date Care Activity Detail Author Start: 02-10-2026 Adult BMI Screening Adult BMI Screen ing [facility] Start: 01-23-2026 Adult BMI Screening Adult BMI Screen ing [facility] Start: 01-23-2026 Tobacco Screening Tobacco Screening [facility] Start: 01-08-2026 Adult BMI Screening Adult BMI Screen ing [facility] Start: 12-09-2025 Adult BMI Follow Up Plan Adult BMI Follow Up Plan [facility] Start: 11-28-2025 Adult BMI Screening Adult BMI Screen ing [facility] Start: 05-11-2025 Influenza vaccination Influenza Vacc ine [facility] Start: 04-25-2025 End: 01-23-2026 Basic metabolic 2000 panel - Serum or Plasma Basic Metabolic Panel Lab Routine Insulin resistance Expected: 04/25/2025 (Approximate), Expires: 01/23/2026 [facility] Comment on above: Expected: 04/25/2025 (Approximate), Expires: 01/23/2026 Start: 04-25-2025 End: 01-23-2026 Insulin, Free and Total, Serum Insulin, Free and Total, Serum Lab Routine Insulin resistance Expected: 04/25/2025 (Approximate), Expires: 01/23/2026 [facility] Comment on above: Expected: 04/25/2025 (Approximate), Expires: 01/23/2026 Start: 04-25-2025 End: 01-23-2026 Testosterone, Total and Free, S Testosterone, Total and Free, S Lab Routine Low 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 Expected: 04/25/2025 (Approximate), Expires: 01/23/2026 [facility]: Comment on above: Expected: 04/25/2025 (Approximate), Expires: 01/23/2026 Start: 04-24-2025 End: 04-24-2025 Patient encounter procedure 04/24/2025 10:00 AM EDT Office Visit [facility] [address] [place] [address] Nury Potter MD [address] [place] [address] [facility] Start: 02-10-2025 End: 02-10-2025 Telemedicine consultation with patient 02/10/2025 10:00 AM EDT Telemedicine [facility] [address] [place] [phone] Iris Quinn LD [facility] Start: 01-23-2025 End: 01-23-2025 Patient encounter procedure 01/23/2025 9:30 AM EDT Office Visit [facility] [address] [place] [place] [phone] Nury Potter MD [address] [place] [address] [facility] Start: 01-08-2025 End: 01-08-2025 Telemedicine consultation with patient 01/08/2025 9:00 AM EDT Telemedicine [facility] [address] [place] [phone] Iris Quinn LD [facility] Start: 12-09-2024 End: 12-09-2024 Telemedicine consultation with patient 12/09/2024 9:00 AM EDT Telemedicine [facility] [address] [place] [phone] Iris Quinn LD [facility] Start: 11-11-2024 End: 11-11-2024 Patient encounter procedure 11/11/2024 4:45 PM EST Office Visit [facility] JIM[facility] [address] [place] [address] Lanny Guthrie DO [address] [place] [address] [facility] Start: 11-05-2024 End: 11-05-2024 Patient encounter procedure 11/05/2024 10:00 AM EST Office Visit [facility] [address] [place] [phone] Pedro Conte, DPM [address] [place] [address] [facility] Start: 10-08-2024 End: 10-08-2024 Patient encounter procedure 10/08/2024 10:45 AM EST Office Visit [facility] [address] [place] [phone] Pedro Conte, DPM [address] [place] [address] Arrived [facility] Comment on above: Arrived Start: 05-11-2024 COVID-19 Vaccine ( season) COVID-19 Vaccine ( season) [facility] Start: 1996 DTaP,Tdap and Td Vac cines (1 - Tdap) DTaP,Tdap and Td Vaccines (1 - Tdap) [facility] Start: 1995 Adult BMI Follow Up Plan Adult BMI Follow Up Plan [facility] Start: 1989 Depression Screening Depression Scre ening [facility] Start: 1989 Tobacco Screening Tobacco Screening [facility] Start: 1977 Screening for malign ant neoplasm of colon [facility] End: 11-28-2025 CBC W Auto Differential panel - Blood CBC auto differential Lab Routine History of sleeve gastrectomy 1 Occurrences starting 11/28/2024 until 11/28/2025 [facility] Work Phone: Comment on above: 1 Occurrences starti ng 11/28/2024 until 11/28/2025 End: 03-16-2026 CBC W Auto Differential panel - Blood CBC auto differential Lab Routine Low 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 1 Occurrences starting 03/16/2025 until 03/16/2026 [facility] Phone: Comment on above: 1 Occurrences starti ng 03/16/2025 until 03/16/2026 End: 11-28-2025 Cyanocobalamin vitamin b-12 Vitamin B12 Lab Routine History of sleeve gastrectomy 1 Occurrences starting 11/28/2024 until 11/28/2025 [facility] Comment on above: 1 Occurrences starti ng 11/28/2024 until 11/28/2025 End: 11-28-2025 Hemoglobin A1c/Hemoglobin.total in Blood Hemoglobin A1c Lab Routine History of sleeve gastrectomy 1 Occurrences starting 11/28/2024 until 11/28/2025 [facility] Comment on above: 1 Occurrences starti ng 11/28/2024 until 11/28/2025 End: 11-28-2025 Insulin, Free and Total, Serum Insulin, Free and Total, Serum Lab Routine History of sleeve gastrectomy 1 Occurrences starting 11/28/2024 until 11/28/2025 [facility] Comment on above: 1 Occurrences starti ng 11/28/2024 until 11/28/2025 End: 11-28-2025 Iron [Mass/volume] in Serum or Plasma Iron Lab Routine History of sleeve gastrectomy 1 Occurrences starting 11/28/2024 until 11/28/2025 [facility] Comment on above: 1 Occurrences starti ng 11/28/2024 until 11/28/2025 End: 11-28-2025 Liver panel Liver panel Lab Routine History of sleeve gastrectomy 1 Occurrences starting 11/28/2024 until 11/28/2025 [facility] Comment on above: 1 Occurrences starti ng 11/28/2024 until 11/28/2025 End: 11-28-2025 Parathyroid Hormone, intact Parathyroid Hormone, intact Lab Routine History of sleeve gastrectomy 1 Occurrences starting 11/28/2024 until 11/28/2025 [facility] Comment on above: 1 Occurrences starti ng 11/28/2024 until 11/28/2025 End: 03-16-2026 PSA w/ RFLX to Free PSA PSA w/ RFLX to Free PSA Lab Routine Low 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 1 Occurrences starting 03/16/2025 until 03/16/2026 [facility] Comment on above: 1 Occurrences starti ng 03/16/2025 until 03/16/2026 End: 11-28-2025 Testosterone, Total and Free, S Testosterone, Total and Free, S Lab Routine History of sleeve gastrectomy 1 Occurrences starting 11/28/2024 until 11/28/2025 [facility] Comment on above: 1 Occurrences starti ng 11/28/2024 until 11/28/2025 End: 11-28-2025 Thyrotropin [Units/volume] in Serum or Plasma TSH Lab Routine History of sleeve gastrectomy 1 Occurrences starting 11/28/2024 until 11/28/2025 [facility] Comment on above: 1 Occurrences starti ng 11/28/2024 until 11/28/2025 End: 11-28-2025 Vitamin D 25 hydroxy Vitamin D 25 hydroxy Lab Routine History of sleeve gastrectomy 1 Occurrences starting 11/28/2024 until 11/28/2025 [facility] Comment on above: 1 Occurrences starti ng 11/28/2024 until 11/28/2025 Immunizations Immunization Date Immunization Notes Care Provider [facility] 07-08-2024 influenza, seasonal, injectable, preservative free Pedro Rusher DPM Work Phone: [facility] 07-08-2024 influenza virus vacc ine, unspecified formulation Iris ALBARRAN [facility] 05-31-2023 influenza virus vacc ine, unspecified formulation Effie Torsten [facility] 05-31-2023 influenza, injectabl e, quadrivalent, preservative free Pedro Rusher DPM Work Phone: [facility] 06-07-2022 influenza virus vacc ine, unspecified formulation Effie Torsten [facility] 06-07-2022 influenza, injectabl e, quadrivalent, preservative free Pedro Rusher DPM Work Phone: [facility] 11-12-2020 SARS-CoV-2 (COVID-19 ) mRNA BNT-162b2 vax Effie Torsten [facility] 10-22-2020 SARS-CoV-2 (COVID-19 ) mRNA BNT-162b2 vax Effiecolleen Mancilla [facility] 03-10-2019 pneumococcal polysaccharide vaccine, 23 valent Effie Mancilla [facility] 08-18-2009 novel influenza-H1N1 -09, preservative-free, injectable Pedro Conte DPM Work Phone: [facility] Payers Date Payer Category Payer Unknown 2022 [facility] BCBS [id number] 2022 [facility] Managed Care - PPO [id number] 2022 Unknown [id number] 2019 Unknown [id number] 2013 Medicare 1977 Unknown [id number] .16.840.1.653590.3.579.2. 593 1977 Unknown [id number] 2.16.840.1.039098.3.579.2. 593 1977 Unknown [id number] 2.16.840.1.130292.3.579.2. 593 1977 Unknown [id number] 2.16.840.1.755024.3.579.2. 593 1977 Unknown [id number] 2.16.840.1.021480.3.579.2. 182 1977 Unknown [id number] 2.16.840.1.146680.3.579.2. 182 1977 Unknown [id number] 2.16.840.1.872848.3.579.2. 72 1977 Unknown [id number] 2.16.840.1.087543.3.579.2. 72 1977 Unknown [id number] 2.16.840.1.251093.3.579.2 1977 Unknown [id number] 2.16.840.1.716051.3.579.2 1977 Unknown [id number] 2.16.840.1.971400.3.579.2 1977 Unknown [id number] 2.16.840.1.828207.3.579.2 1977 Unknown [id number] 2.16.840.1.194849.3.579.2 1977 Unknown [id number] 2.16.840.1.802465.3.579.2 72 1977 Unknown [id number] 2.16.840.1.690929.3.579.2 1977 Unknown [id number] 2.16.840.1.360187.3.579.2. 1977 Unknown [id number] 2.16.840.1.070241.3.579.2 1977 Unknown [id number] 2.16.840.1.685426.3.579.2. 1259 1977 Unknown [id number] 2.16.840.1.753012.3.579.2. 1259 1977 Unknown [id number] 2.16.840.1.363567.3.579.2. 1259 1977 Unknown [id number] 2.16.840.1.703128.3.579.2. 1286 1977 Unknown [id number] 2.16.840.1.085899.3.579.2. 196 1977 Unknown [id number] 2.16.840.1.741204.3.579.2. 196 1977 Unknown [id number] 2.16.840.1.311955.3.579.2. 196 1977 Unknown [id number] 2.16.840.1.216997.3.579.2. 196 1977 Unknown [id number] 2.16.840.1.393907.3.579.2. 1977 Unknown [id number] 2.16.840.1.602435.3.579.2. 196 1977 Unknown [id number] 2.16.840.1.195600.3.579.2. 196 1977 Unknown [id number] 2.16.840.1.320121.3.579.2. 1286 1977 Unknown [id number] 2.16.840.1.080876.3.579.2. 1285 1977 Unknown [id number] 2.16.840.1.495990.3.579.2. 1286 1977 Unknown [id number] 2.16.840.1.346762.3.579.2. 1285 1977 Unknown [id number] 2.16.840.1.730159.3.579.2. 1286 1959 Medicare [id number] 1959 Unknown [id number] Social History Date Type Detail Facility Start: 03-19-2023 End: 01-23-2025 Tobacco smoking status Ex-smoker (finding) Jessica [facility] Tobacco smoking status Never Miguel Ángel Diop [facility] [place] Start: 02-19-2019 End: 04-11-2023 Sex Assigned At Male Lul Echavarria [facility] Start: 04-05-2023 Tobacco smoking stat us [facility] Never smoked tobacco [facility] Start: 04-05-2023 End: 01-23-2025 Tobacco use and exposure Smokeless tobacco non-user [facility] Start: 10-08-2024 End: 11-05-2024 Alcoholic beverage intake Ex-drinker (finding) [facility] Start: 02-19-2019 End: 04-11-2023 History of Social function [facility] Start: 1977 Sex assigned at Not on file [facility] Tobacco smoking stat [facility] Tobacco smoking consumption unknown [facility] Start: 04-15-2015 Sex Male (finding) [facility] History of tobacco use Current smoker [facility] History of tobacco use Cigarette Smoker P [facility] Start: 01-23-2025 Alcoholic beverage intake Not Asked [facility] Start: 01-23-2025 Alcohol Comment SOCIALLY [facility] Clinical Notes 11-10-2021 to 02-10-2025 DEION Lerma - 02/10/2025 10:00 AM EDTPatient InstructionsNury Potter MD - 01/23/2025 9:30 AM EDDEION Grissom - 01/08/2025 9:00 AM EDTPatient InstructionsPatient Instructions Note Date & Type Note Facility 02-10-2025 History of Present illness Narrative Bariatric Medical Nutrition Therapy Nutritional Assessment/Education Weight check Video Visit via Real-time Synchronous Audiovisual Provider Location: [facility] [address] [place] [phone] Patient Location: Patient's home Video Visit Consent Statement: I discussed risks, [...] that there are some limitations compared to [id number] evaluations. The patient consented to the presence of additional virtual and/or in-person participants. We elected to proceed. Rakesh Piña is a 49 y.o. male who presents for follow up weight check after weight loss surgery. Weight History: 01/08/25 (390#) Weight Change 02/10/2025 Weight: (!) 174.6 kg (385 lb) Weight Change: Down 5# in 1 month Rakesh feels watching his food choices has improved and keeping eating and drinking separate. He reports started metformin and testosterone this past month. Eating regularly continues to be a struggle for him. 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 Continue to track protein intake Start exercise program: walking at night, swim when water is open, strength training Nutrition Diagnosis: Obesity as evidenced by BMI. Body mass index is 56.85 kg/m . Nutrition Monitoring: To follow up in 4-6 weeks to monitor weight. Start time: 958 End time: 102 documented in this encounter [facility] 02-10-2025 Instructions DEION Lerma - 02/10/2025 10:00 AM EDT Read the [employer] Bariatric Guide. If you re looking for general health and wellness resources, please visit [email or web address]. documented in this encounter [facility] 01-23-2025 History of Present illness Narrative Bariatric Surgery Progress Note Subjective The patient is a 49-year-old male who had a sleeve gastrectomy in [place] in 2009 that was complicated by bowel perforation and required extended hospital stay with multiple surgeries. He was over 500 lb at the time of that surgery, and has since lost a significant amount of his weight, but has been getting some back. He has been working with the dietitians over the past 2 months. He has made some healthy changes with the dietitians in his now tracking his protein and calorie intake. He does still have difficulty doing multiple small meals throughout the day as well as not drinking and eating at the same time, but he is working on it. He is down 5 lb since our last visit. 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 We checked some lab work and found that his testosterone levels are borderline low and his free and total insulin levels are very high, both over 100. His hemoglobin A1c is normal and he is not diabetic, however his insulin resistance and low testosterone could be leading to a decrease in metabolism. We discussed medical management for this, and we will move forward treating both. He was on testosterone injections in the past which caused him to have a lot of anger issues. We will use testosterone gel/cream for a more gradual dosing. We will start metformin for his insulin resistance. Objective BP (!) 179/108 Ht 175.3 cm (5' 9 ) Wt (!) 174.7 kg (385 lb 3.2 oz) BMI 56.88 kg/m General appearance: alert & oriented x3, no acute distress, and cooperative Head: Normocephalic, without obvious abnormality, atraumatic Lungs: normal respiratory effort Abdomen: soft, nontender, nondistended, and surgical scars well healed Extremities: extremities normal, atraumatic, no cyanosis or edema Skin: Skin color, texture, turgor normal. No rashes or lesions Neurologic: Grossly normal Labs Latest Reference Range & Units 12/01/24 12:00 White Blood Cells 4.0 - 11.0 X10E9/L 7.1 RBC count 4.10 - 5.70 X10E12/L 5.16 Hemoglobin 13.0 - 17.0 g/dL 14.6 Hematocrit 39 - 49 % 44.1 MCV 80 - 100 fL 85 MCH 27 - 34 pg 28.3 MPV 7 - 12 fL 7.6 MCHC 32 - 36 g/dL 33.1 RDW 11.5 - 15.0 % 16.0 (H) Platelets 150 - 450 X10E9/L 234 % monocytes % 4.3 % neutrophils % 73.2 % Basophils % 2.6 % eosinophils % 1.5 % lymphocytes % 18.4 Absolute Basophil 0.0 - 0.2 X10E9/L 0.2 Absolute Eosinophil 0.0 - 0.4 X10E9/L 0.1 Lymphocytes Absolute 1.0 - 3.5 X10E9/L 1.3 Monocytes Absolute 0 - 0.9 X10E9/L 0.3 Neutrophils Absolute (A) 1.5 - 6.6 X10E9/L 5.2 Total Protein 6.0 - 8.0 g/dL 7.3 Albumin 3.2 - 5.3 g/dL 3.7 Bilirubin, direct 0.0 - 0.4 mg/dL 0.1 Total bilirubin 0.3 - 1.2 mg/dL 0.5 AST 0 - 41 U/L 18 ALT 0 - 40 U/L 19 Alkaline phosphatase 39 - 130 U/L 59 Iron 50 - 212 ug/dL 51 Vit D, 25-hydroxy 30 - 100 ng/mL 36.1 VITAMIN B12 180 - 914 pg/mL 399 Average glucose mg/dL 103 Hemoglobin A1C Confirmation 4.4 - 5.6 % 5.2 Free insulin 3 - 25 mcIU/mL 146 (H) TSH 0.49 - 4.67 uIU/mL 1.64 Testosterone free 4.26 - 16.4 ng/dL 8.16 Testosterone total 240 - 950 ng/dL 286 PTH 12 - 88 pg/mL 25 Total Insulin 3 - 25 mcIU/mL 168 (H) (H): Data is abnormally high Current Medications Current Outpatient Medications Medication Sig Dispense Refill buPROPion SR (WELLBUTRIN SR) 150 mg 12 hr tablet Take 1 tablet (150 mg total) by mouth in the morning and 1 tablet (150 mg total) before bedtime. celecoxib (CeleBREX) 200 mg capsule Take 1 capsule (200 mg total) by mouth in the morning. cranberry extract (CRANBERRY JUICE POWDER) 425 mg capsule Take by mouth. cyanocobalamin, vitamin B-12, (VITAMIN B-12 ORAL) Vitamin B-12 ipratropium (ATROVENT) 21 mcg (0.03 %) nasal spray Administer 1 spray into each nostril as needed. loratadine (CLARITIN) 10 mg tablet Take 1 tablet (10 mg total) by mouth as needed. meclizine (ANTIVERT) 25 mg tablet Chew 1 tablet (25 mg total) and swallow 3 (three) times a day as needed. omega-3 fatty acids-fish oil 300-1,000 mg capsule Take by mouth in the morning. omeprazole (PriLOSEC) 40 mg capsule Take 1 capsule (40 mg total) by mouth as needed. PARoxetine (PAXIL) 10 mg tablet Take 1 tablet (10 mg total) by mouth. tiZANidine (ZANAFLEX) 4 mg tablet Take 1 tablet (4 mg total) by mouth nightly. metFORMIN (FORTAMET) 1000 MG (OSM) 24 hr tablet Take 1 tablet (1,000 mg total) by mouth daily with breakfast. 90 tablet 3 testosterone (ANDROGEL) 20.25 mg/1.25 gram (1.62 %) gel in metered-dose pump Place 2 Act (40.5 mg total) on the skin in the morning. 75 g 0 No current facility-administered medications for this visit. Assessment Patient is a 49 y.o. male with history of sleeve gastrectomy, morbid obesity, insulin resistance, and borderline low testosterone Plan Start metformin 1000 mg daily extended release tablets Start testosterone/AndroGel 2 pumps applied daily (40.5 mg daily) Continue with healthy diet changes focusing on protein Increase exercise Follow up in 3 months with labs documented in this encounter [facility] 01-08-2025 History of Present illness Narrative Bariatric Medical Nutrition Therapy Nutritional Assessment/Education Session: Post-op #2 Video Visit via Real-time Synchronous Audiovisual Provider Location: [facility] OF [facility] [address] [place] [phone] Patient Location: Patient's home Video Visit Consent Statement: I discussed risks, [...] that there are some limitations compared to [id number]-fgmv evaluations. The patient consented to the presence of additional virtual and/or in-person participants. We elected to proceed. Rakesh Piña is a 49 y.o. male who presents for medical nutritional therapy after weight loss surgery. Weight: 390# Rakesh reports being 394# on December 29, so down 4 pounds in 1 month. He is improving with eating small more frequent meals but noticed an increase in appetite. He is tracking his food intake on an stevenson. Rakesh is averaging 1500 calories per day and 60-70 grams of protein per day. He tends to only eat 3 times per day. He is working on reducing her starch intake. Diet Recall: 4:30 AM Breakfast 11 AM Snack Lunch 12:30 PM Snack Dinner 7 PM Snack Protein shake Salad with veggies, ham and turkey with regular slovenian dressing with a cheeseburger lucas (no bun), pickles Skipped as in concert Beverage Intake: water (100-120 oz per day), diet pepsi (down 1/2 bottle per day) Increase protein intake 90 grams or more to help control hunger. Eat every 3 hours. Have protein shake by 7 AM. Continue trying to keep eating and drinking separate. Nutrition Diagnosis: Obesity as evidenced by BMI. There is no height or weight on file to calculate BMI. Nutrition Intervention: Nutrition education Discussed diet and [...] iron daily or 1 vitamin daily. 2) 4863-3596 mg calcium in divided doses (2x/day) for sleeve and gastric bypass, 6862-9379 mg in divided doses (3x/day) for SADS [...] all discussed has been provided within the [facility] Bariatric Guide. My contact name and number provided if questions or concerns arise. Nutrition Monitoring: To monitor weight to show progress. Start time: 09 End time: 09 documented in this encounter [facility] 01-08-2025 Instructions DEION Lerma - 01/08/2025 9:00 AM EDT Read the [facility] Bariatric Guide. If you re looking for general health and wellness resources, please visit [email or web address] documented in this encounter [facility] 12-09-2024 History of Present illness Narrative Bariatric Medical Nutrition Therapy Nutritional Assessment/Education Session: Post-op Rakesh Piña is a 49 y.o. male who presents for medical nutritional therapy after weight loss surgery. Video Visit via Real-time Synchronous Audiovisual Provider Location: [facility] [address] [place] [phone] Patient Location: Waiting room in [place] (for father's surgery) Video Visit Consent Statement: [...] that there are some limitations compared to jyky-fx-ycld evaluations. The patient consented to the presence of additional virtual and/or in-person participants. We elected to proceed. Barrier learning assessment: Yes Weight: unable to get one Rakesh had a sleeve gastrectomy in [place] in 2009. He received minimal nutrition information [...] iron daily or 1 vitamin daily. 2) 3559-4869 mg calcium in divided doses (2x/day) for sleeve and gastric bypass, 2474-7017 mg in divided doses (3x/day) for SADS [...] all discussed has been provided within the [facility] Bariatric Guide. My contact name and number provided if questions or concerns arise. Nutrition Monitoring: To monitor weight to show progress. Start time: 0904 End time: 0950 documented in this encounter [facility] 12-09-2024 Instructions DEION Lerma - 12/09/2024 9:00 AM EDT Read the [facility] Bariatric Guide. If you re looking for general health and wellness resources, please visit [email or web address]. [facility]24 History of Present illness Narrative [facility] GENERAL SURGERY [address] [place] [phone] [facility] SURGICAL WEIGHT LOSS PROGRAM INITIAL EVALUATION Patient: Rakesh Piña Service Date: 11/28/2024 Chief complaint: Wants help with weight loss 15 years after sleeve gastrectomy in [place] The patient is a 49 y.o. year [...] The patient had a sleeve gastrectomy in [place] in 2009. Two days after surgery he began having fever and chills and after workup was found to have an intra-abdominal abscess. He was seen at the [facility] by Crystal Parsons MD and underwent an [...] week based on the recommendations from the [place] [employer]. He is not eager to alegre into another surgery given his past experience. 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 [x] No [] Yes Do you have [...] turgor normal, no rashes or lesions Neurologic: fluid designer intact, normal strength. Alert and oriented. Follows [...] to ensure the accuracy of this automated pecan cleaner, some errors in pecan cleaner may have occurred. documented in this encounter [facility] 11-05-2024 History of Present illness Narrative Images [...] Allergic rhinitis Autonomic dysfunction COVID-19 03/2020 Depression ([facility]) ETD (Eustachian tube dysfunction), bilateral H/O gastric bypass Stomach bypass followed by numerous surgeries to treat infection and sepsis History of medical problems Kt Excretor Hoarseness Hypercholesterolemia ([facility]) Labyrinthitis chronic LPRD (laryngopharyngeal reflux disease) Lymphedema [...] Pedro Conte DPM documented in this encounter [facility] 10-21-2024 Telephone encounter Note [id number]-[id number] is scheduled for October 28 at 4:45 pm. They will call our office for the meeting [facility] 10-21-2024 Miscellaneous Notes Kqza-[id number] is scheduled for October 28 at 4:45 [...] was approved. Thanks documented in this encounter [facility] 10-08-2024 Telephone encounter Note Pt was in this morning, Dr. Conte gave him the orthotic form. Rakesh called his insurance and they stated anything over $750 needs precert, and that they cover 1 pair of custom orthotics every 2 calendar years. Told him we would call him with info of est. And if precert was approved. Thanks NOMS [facility] 10-08-2024 History of Present illness Narrative Images from the original note were not included. Subjective Patient ID: Rakesh Piña is a 49 y.o. 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 [...] Allergic rhinitis Autonomic dysfunction COVID-19 03/2020 Depression (CMS/[facility]) ETD (Eustachian tube dysfunction), bilateral H/O gastric [...] Pedro Conte DPM documented in this encounter [facility] 08-23-2023 Evaluation + Plan note Diagnostic Tests PendingTestosterone Level Total 08/23/23 [facility] 11-10-2021 Note PROCEDURE: XR HAND L [...] authenticated by: KELLIE SMALLS Date: 2021-11-10 13:16 [facility] Evaluation + Plan note Future Appointments Appointment Date:04/23/2023 11:00:00 AM Scheduled Provider:Effie Muhammad Location:[facility] Appointment Type: Open [facility] Evaluation note Diagnosis Valgus deformity, not elsewhere classified, right ankle- Primary Valgus deformity, not elsewhere classified, left ankle Instability of left foot joint Instability of right foot joint Leg length discrepancy Unequal leg length (acquired) documented in this encounter [facility] HealthcareEvaluation note* Diagnosis Valgus deformity, not elsewhere classified, right ankle- Primary Valgus deformity, not elsewhere classified, left ankle Instability of left foot joint Instability of right foot joint Leg length discrepancy Unequal leg length (acquired) Posterior tibial tendon dysfunction, bilateral documented in this encounter [facility] HealthcareEvaluation note* Diagnosis History of sleeve gastrectomy- Primary Morbid obesity with BMI of 50.0-59.9, adult ([facility]) documented in [facility] Diagnosis Dietary counseling and surveillance- Primary Morbid obesity (CMS-HCC) Morbid obesity History of sleeve gastrectomy documented [facility] Diagnosis Dietary counseling and surveillance- Primary Morbid obesity (CMS-HCC) Morbid obesity History of sleeve gastrectomy documented [facility] Diagnosis Insulin resistance- Primary Other abnormal glucose Morbid obesity (CMS-HCC) Morbid obesity Low 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 documented [facility] Diagnosis Dietary counseling and surveillance- Primary Morbid obesity (CMS-HCC) Morbid obesity documented in this [facility] Diagnosis Low 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 [facility] Narrative No data available for this section [facility] Dis[facility] instructions No data available for this section [facility]ructions[facility] on filedocumented in this encounter [facility]Not on filedocumented in this encounter [facility]ructionsNot on filedocumented in this encounter [facility] No data available for this section [facility] Summary Purpose Family History No Family [...] and content) DATE CREATED AUTHOR 01/28/2022 [facility] DATE CREATED AUTHOR AUTHOR'S ORGANIZ ATION 08/10/2022 [facility] DATE CREATED AUTHOR AUTHOR'S ORGANIZ ATION 01/28/2024 [facility] DATE CREATED AUTHOR AUTHOR'S ORGANIZ ATION 02/27/2024 [facility] DATE CREATED AUTHOR AUTHOR'S ORGANIZ ATION 11/28/2024 [facility] DATE CREATED AUTHOR AUTHOR'S ORGANIZ ATION 12/07/2024 [facility] DATE CREATED AUTHOR AUTHOR'S ORGANIZ ATION 01/06/2025 [facility] DATE CREATED AUTHOR AUTHOR'S ORGANIZ ATION 01/24/2025 [facility] DATE CREATED AUTHOR AUTHOR'S ORGANIZ ATION 02/11/2025 [facility] team informatio n (unrecognized section and content) Distribution Sales Representative Relationship Specialty Start Date End Date Lulu Blank MD [address] [place] [phone] PCP - General Family Medicine 04/05/23 Distribution Sales Representative Relationship Specialty Start Date End Date Lulu Blank MD [address] [place] [phone] PCP - General Family Medicine 04/05/23 Distribution Sales Representative Relationship Specialty Start Date End Date Lulu Blank MD [address] [place] [address] PCP - General Family Medicine 04/05/23 Distribution Sales Representative Relationship Specialty Start Date End Date Lulu Blank MD [address] [place] [phone] PCP - General Family Medicine 04/05/23 Distribution Sales Representative Relationship Specialty Start Date End Date Lulu Blank MD [address] [place] [phone] PCP - General Family Medicine 04/05/23 Distribution Sales Representative Relationship Specialty Start Date End Date TorstenEffie palma L, MARKETING PLANNING MANAGER-[employer] [address] [place], [place] [phone] PCP - General Nurse Practitioner 11/28/24 Distribution Sales Representative Relationship Specialty Start Date End Date Torsten, Effie L, MARKETING PLANNING MANAGER-[employer] [address] [place] [address] PCP - General Nurse Practitioner 11/28/24 Distribution Sales Representative Relationship Specialty Start Date End Date TorstenShanitadi L, MARKETING PLANNING MANAGER-[employer]NA[employer] [address] [place] [address] PCP - General Nurse Practitioner 11/28/24 Distribution Sales Representative Relationship Specialty Start Date End Date TorstenEffie palma L, MARKETING PLANNING MANAGER-[employer] [address] [place] [address] PCP - General Nurse Practitioner 11/28/24 Distribution Sales Representative Relationship Specialty Start Date End Date TorstenEffie palma L, MARKETING PLANNING MANAGER-[employer] [address] [place] [address] PCP - General Nurse Practitioner 11/28/24 Distribution Sales Representative Relationship Specialty Start Date End Date Torsten, Effie L, MARKETING PLANNING MANAGER-[employer] [address] [place] [address] PCP - General Nurse Practitioner 11/28/24 Reason for Visit (unrecogniz ed section and content) Reason Comments 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 [...] History [place] [address] [place] [phone] Phone: tel: fax: Referral ID Status Reason Start Date Expiration Date Visits Requested Visits Authorized [id number] Authorized Specialty Services Required 11/28/2024 11/28/2025 12 12 Reason Comments Nutrition Counseling Follow-up Specialty Diagnoses / Procedures Referred By Valente courtney Referred To Contact Nutrition Diagnoses History [place] [address] [place] [phone] Phone: tel: fax: Referral ID Status Reason Start Date Expiration Date Visits Requested Visits Authorized [id number] Authorized Specialty Services Required 11/28/2024 11/28/2025 12 12 Reason Comments ESTABLISHED PATIENT go over labs/1st ref reshor visit with dititian done FOR RECORDS PERTAINING TO PATIENTS WHO ARE [...] BE BASED ON THE PRIMARY CLINICAL RECORDS. [facility]. provides no warranty or guarantee of the accuracy or completeness of information in this document.
[2025-03-19 10:35] LABS: Hematocrit 46.8 % (42.0-54.0); Hemoglobin 15.2 g/dL (14.0-18.0); Immature Granulocytes Abs Auto 0.03 10^3/uL (0.00-0.03); Immature Granulocytes Pct Auto 0.4 % (0.0-0.5); Lymphocytes Absolute Auto 1.4 10^3/uL (1.2-3.8); Mean Corpuscular HGB Conc 32.5 g/dL (29.9-35.2); Mean Corpuscular Hemoglobin 28.5 pg (25.9-34.0); Mean Corpuscular Volume 87.8 fL (80.0-94.0); Platelet Count 241 10^3/uL (150-450); Red Blood Count 5.33 10^6/uL (4.70-6.10); White Blood Count 8.5 10^3/uL (4.0-11.0)
[2025-03-19 10:47] LABS: Anion Gap 10.2; Blood Urea Nitrogen 17.0 mg/dL (7.0-18.0); Calcium 9.9 mg/dL (8.5-10.1); Carbon Dioxide 30.7 mmol/L (21.0-32.0); Chloride 104 mmol/L (98-107); Estimated GFR (African America >60 (>=60 mL/min/1.73m^2); Estimated GFR (Non-African Ame >60 (>=60 mL/min/1.73m^2); Glucose 110 mg/dL (74-106); Potassium 3.9 mmol/L (3.5-5.1); Sodium 141 mmol/L (136-145)
[2025-03-19 11:15] LABS: Prostate Specific Antigen Dx 1.37 ng/mL (<=4.00)
== END 2025-03-19 09:55 | disposition home or self-care (01) ==
LOC: LAB 09:55
PROVIDERS: PCP Nurse Practitioner; Visit Provider Student in an Organized Health Care Education/Training Program
DX: R79.89 Other specified abnormal findings of blood chemistry (principal); E88.819 Insulin resistance, unspecified
CPT/HCPCS: 36415; 80048; 83525; 83527; 84153; 84402; 84403; 85025

== ENCOUNTER 2025-04-08 09:21 | Outpatient (OUT) | payer BC, MEDICARE, SELFPAY ==
--- OUTSIDE RECORDS SUMMARY | 2025-04-08 09:23 | XMS_ITS | Clinical Summary ---
Author Organization [facility] Address [address] [place] [address] Care Team Providers Care Governor Assembler Hydraulic Name Role Phone Unavailable Primary Care Provider Unavailabl e Social History Tobacco Use Types Packs/Day Years Used Date Smoking Tobacco: Never Assessed [place] Safety & Environment Answer Date Rec orded Fear of Current or Ex-Partner Not on file Emotionally Abused Not on file 11/01/2023 Physically Abused Not on file 11/01/2023 Sexually Abused Not on file 11/01/2023 Physically or Sexually Abused Not on file Sex and Gender Information Value Date Recorded Sex Assigned at Not on file Legal Sex Male 10:39 PM EDT Gender Identity Not on file Sexual Orientation Not on file Last Filed Vital Signs Vital Sign Reading Time Taken Comments Blood Pressure 140/94 08/13/2019 10:54 AM EST Pulse 101 08/13/2019 10:54 AM EST Temperature 36.7 C (98 F) 07/08/2019 4:05 PM EDT Respiratory Rate - - Oxygen Saturation - - Inhaled Oxygen Concentration - - Weight 186 kg (409 lb 15.9 oz) 12/29/2021 11:33 AM EDT Height 175.3 cm (5' 9 ) 12/29/2021 11:32 AM EDT Body Mass Index 60.55 12/29/2021 11:32 AM EDT Plan of Treatment Health Maintenance Due Date Last Done Comments CT Colonography 1977 Colonoscopy 1977 Colorectal Cancer Screening 1977 FIT-DNA 1977 FIT 1977 FOBT 1977 Medicare Annual Wellness (AWV) 1977 Sigmoidoscopy 1977 Depression Screening 1989 Hepatitis B Vaccines (1 of 3 - 19+ 3-dose series) 1996 Adult Tetanus 1999 Influenza Vaccine (#1) 2025 Zoster Vaccines (1 of 2) 2027 Pneumococcal Vaccine: Pediat rics (0 to 5 Years) and At-Risk Patients (6 to 64 Years) Aged Out 03/10/2019 No longer eligi ble based on patient's age to complete this topic HIB Vaccines Aged Out No longer eligi ble based on patient's age to complete this topic HPV Vaccines Aged Out No longer eligi ble based on patient's age to complete this topic IPV Vaccines Aged Out No longer eligi ble based on patient's age to complete this topic Meningococcal B Vaccine Aged Out No l onger eligible based on patient's age to complete this topic Meningococcal Vaccine Aged Out No sage ciara eligible based on patient's age to complete this topic Rotavirus Vaccines Aged Out No longer eligible based on patient's age to complete this topic Insurance [place]
--- OUTSIDE RECORDS SUMMARY | 2025-04-08 09:24 | XMS_ITS | Clinical Summary ---
Author Organization [employer] tem Address [id number] [address] [place] [address] Care Team Providers Care Bag Printer Name Role Phone Alexia Mancilla APRN-SENIOR CORE JAVA DEVELOPER Primary Care Provider [phone] Allergies No known active allergies Medications cranberry extract (CRANBERRY JUICE POWDER) 425 mg capsule Take by mouth. Activ e omega-3 fatty acids-fish oil 300-1,000 mg capsule Take by mouth in the morning. Active ipratropium (ATROVENT) 21 mcg (0.03 %) nasal spray Administer 1 spray into each nostril as needed. Active loratadine (CLARITIN) 10 mg tablet Take 1 tablet (10 mg total) by mouth as needed. Active meclizine (ANTIVERT) 25 mg tablet Chew 1 tablet (25 mg total) and swallow 3 (three) times a day as needed. Active omeprazole (PriLOSEC) 40 mg capsule Take 1 capsule (40 mg total) by mouth as needed. Active PARoxetine (PAXIL) 10 mg tablet Take 1 tablet (10 mg total) by mouth. Active tiZANidine (ZANAFLEX) 4 mg tablet Take 1 tablet (4 mg total) by mouth nightly. 5 Active cyanocobalamin, vitamin B-12, (VITAMIN B-12 ORAL) Vitamin B-12 Active buPROPion SR (WELLBUTRIN SR) 150 mg 12 hr tablet Take 1 tablet (150 mg total) by mouth in the morning and 1 tablet (150 mg total) before bedtime. Active celecoxib (CeleBREX) 200 mg capsule Take 1 capsule (200 mg total) by mouth in the morning. 5 Active metFORMIN (FORTAMET) 1000 MG (OSM) 24 hr tablet Take 1 tablet (1,000 mg total) by mouth daily with breakfast. 90 tablet 3 5 Active testosterone (ANDROGEL) 20.25 mg/1.25 gram (1.62 %) gel in metered-dose pumpIndications: Low 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 Place 2 Act (40.5 mg total) on the skin in the morning. 75 g 5 Active testosterone (ANDROGEL) 20.25 mg/1.25 gram (1.62 %) gel in metered-dose pumpIndications: Low 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 Place 2 Act (40.5 mg total) on the skin in the morning. 75 g 5 025 Discontin ued(Reord er) Encounters Date Type Department Care Team Description 04/02/2025 Orders Only [facility] [address] [place] [phone] Ref Prov, Not In System 03/19/2025 Orders Only [facility] [address] [place] [phone] Ref Prov, Not In System 03/16/2025 Orders Only [facility] [address] [place] [phone] Nury Quinteros MD Low 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 03/05/2025 Refill [facility] [address] [place] [phone] Nury Quinteros MD Low 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 02/10/2025 10:00 AM EDT Telemedicine [facility] Dieticians [address] [place] [phone] Miladys Quinn LD Dietary counseling and surveillance (Primary Dx); Morbid obesity ([facility]) 01/23/2025 9:30 AM EDT Office Visit [facility] [address] [place] [address] Nury Quinteros MD Insulin resistance (Primary Dx); Morbid obesity ([facility]); Low 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 01/23/2025 Travel 01/08/2025 9:00 AM EDT Telemedicine [facility] Dieticians [address] [address] Miladys Quinn LD Dietary counseling and surveillance (Primary Dx); Morbid obesity ([facility]); History of sleeve gastrectomy from Last 3 Months Family History Medical History Relation Name Comments Heart failure Father Diabetes Maternal Grandfather Cancer Sister Cervical cancer Sister Relation Name Status Comments Father Alive Maternal Grandfather Mother Alive Sister Social History Tobacco Use Types Packs/Day Years Used Date Smoking Tobacco: Former Cigarettes Smokeless Tobacco: Never Tobacco Cessation:Counseling Given: Not Answered Alcohol Use Standard Drinks/Week Comments Not Asked 0 (1 standard drink = 0.6 oz pur e alcohol) SOCIALLY Childcare Answer Date Recorded Childcare Unknown 02/19/2019 Employment Answer Date Recorded Employment Unknown 02/19/2019 Sex and Gender Information Value Date Recorded Sex Assigned at Not on file Legal Sex Male 12:09 PM EDT Gender Identity Not on file Sexual Orientation Not on file Last Filed Vital Signs Vital Sign Reading Time Taken Comments Blood Pressure 179/108 01/23/2025 9:34 AM EDT Pulse - - Temperature - - Respiratory Rate - - Oxygen Saturation - - Inhaled Oxygen Concentration - - Weight 174.6 kg (385 lb) 02/10/2025 10:00 AM EDT Height 175.3 cm (5' 9 ) 01/23/2025 9:34 AM EDT Body Mass Index 56.85 01/23/2025 9:34 AM EDT Plan of Treatment Upcoming Encounters Date Type Department Care Team (Late st Contact Info) Description 04/24/2025 10:00 AM EDT [facility] [address] [place] [address] Nury Quinteros MD [address] [place] [address] Health Maintenance Due Date Last Done Comments Depression Screening 1989 DTaP,Tdap and Td Vaccines (1 - Tdap) 1996 COVID-19 Vaccine (3 - 2024-2 5 season) 2024 11/12/2020, 10/22/2020 Influenza Vaccine 05/11/2025 07/08/2024, , 06/07/2022, Additional history exists Adult BMI Follow Up Plan 12/09/2025 12/09/2024 Tobacco Screening 01/23/2026 01/23/2025 Adult BMI Screening 02/10/2026 02/10/2025 Medical Devices Not on file Procedures Procedure Name Priority Date/Time Associated Diagnosis Comments MULTIPLE LABS Routine 04/02/2025 3:07 PM EDT MULTIPLE LABS Routine 04/02/2025 2:58 PM EDT MULTIPLE LABS Routine 03/19/2025 1:37 PM EDT AMB REFERRAL TO NUTRITION SERVICES Routine 01/08/2025 9:41 AM EDT History of sleeve gastrectomy from Last 3 Months Results * Multiple labs (04/02/2025 3:07 PM EDT) Only the most recent of3 resultswithin the time period is included. us Not In System Ref Prov [place] IMAGING Final Res ult MANUALLY TRANSCRIBED RESULTS * Ambulatory referral to Nutrition Services (01/08/2025 9:41 AM EDT) us Nury Quinteros MD OUTPATIENT REFERRAL ORDERABLES Final Result MANUALLY TRANSCRIBED RESULTS from Last 3 Months Insurance ANTHEM Care Teams Bag Printer Relationship Specialty Start Date End Date Alexia Mancilla, AMEENA-SENIOR CORE JAVA DEVELOPER [address] [place], [place] [address] [address] PCP - General Nurse Practitioner 11/28/24
--- OUTSIDE RECORDS SUMMARY | 2025-04-08 09:24 | XMS_ITS | Clinical Summary ---
Author Organization [facility] Address [address] [place] [address] Care Team Providers Care Health Care Analyst Name Role Phone Lisseth Blank MD Primary Care Provider Allergies No known active allergies Medications ibuprofen (MOTRIN) 800 mg tablet Take 800 mg by mouth every 6 hours as needed. Active buPROPion SR (WELLBUTRIN SR) 150 mg 12 hr tablet Take 150 mg by mouth once daily. Active MULTIVIT &MINERALS/FERROU S FUM (MULTI VITAMIN ORAL) Take 1 tablet by mouth once daily. Active hypromellose (GONAK) 2.5 % ophthalmic solution Use 1 Drop in both eyes as needed. 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 Open wound anterior abdominal wall 09/29/2010 Morbid obesity 09/29/2010 Family History Medical History Relation Comments Heart Father Cataract Maternal Grandmother Cancer Sister Relation Status Comments Father Maternal Grandmother Sister Social History Tobacco Use Types Packs/Day Years Used Date Smoking Tobacco: Former Cigarettes 1.5 15 1 - 06/21/2010 Smokeless Tobacco: Former Alcohol Use Standard Drinks/Week Comments Yes 0 (1 standard drink = 0.6 oz pure alcohol) 2 o2 three beers every other weekend Sex and Gender Information Value Date Recorded Sex Assigned at Not on file Legal Sex Male 8:32 AM EST Gender Identity Not on file Sexual Orientation Not on file Last Filed Vital Signs Vital Sign Reading Time Taken Comments Blood Pressure 118/56 10/06/2014 1:15 PM EST Pulse 74 10/06/2014 1:15 PM EST Temperature 36.4 C (97.6 F) 10/06/2014 11:49 AM EST Respiratory Rate 18 10/06/2014 1:15 PM EST Oxygen Saturation 95% 10/06/2014 1:15 PM EST Inhaled Oxygen Concentration - - Weight 180.1 kg (397 lb) 09/23/2014 10:11 AM EST Height 175.3 cm (5' 9 ) 09/23/2014 10:11 AM EST Body Mass Index 58.63 09/23/2014 10:11 AM EST Plan of Treatment Health Maintenance Due Date Last Done Comments Anxiety Screening 1995 Depression Screening 1995 HIV Screening 1995 Hepatitis C Screening 1995 DTaP,Tdap,Td Vaccine (1 - Tdap) 1996 Hepatitis B Vaccine (1 of 3 - 19+ 3-dose series) [address] Colonography 2022 Cologuard (FIT-DNA) 2022 Colonoscopy 2022 Colorectal Cancer Screening 2022 Diabetes Screening 2022 11/26/2012, 0 11/24/2012, 11/23/2012, Additional history exists Fecal Occult Blood 2022 Sigmoidoscopy 2022 Influenza Vaccine (#1) 2025 Medical Devices Implanted Type Area Oncology Nurse Navigator Device Identifier Shelf Expiration Date Model / Serial / Lot Mesh Srg Parietex 12cm 12cm - [id number] Implanted:Qty: 1 on 11/20/2012 at [facility] Mesh N/A: [facility]10[facility] [id number] / / [id number] Description:Parietex optimiz ed composite mesh 12cm Mesh Srg Surgipro 14x9in Niesl - [id number] Implanted:Qty: 1 on 11/20/2012 at [facility] Mesh [facility] 04/09/2017 [id number] / / [id number] Description:surgipro monofil ament polypropylene mesh Procedures Procedure Name Priority Date/Time Associated Diagnosis Comments BASIC METABOLIC PANEL Routine 11/26/2012 5:38 AM EDT from Last 3 Months or Most Recently Relevant to Health Maintenance Results * (ABNORMAL) BASIC METABOLIC PNL (11/26/2012 5:38 AM EDT) Glucose 89 65 - 100 mg/dL [facility] BUN 7(L) 10 - 25 mg/dL [facility] Creatinine 0.74 0.70 - 1.40 mg/dL [facility] Sodium 139 135 - 146 mmol/L [facility] Potassium 3.4(L) 3.5 - 5.0 mmol/L [facility] Chloride 96(L) 98 - 110 mmol/L [facility] CO2 34(H) 23 - 32 mmol/L [facility] Anion Gap 9 0 - 15 mmol/L [facility] Calcium 8.6 8.5 - 10.5 mg/dL [facility] Blood specimen (specimen) BLOOD SPECIMEN / Unknown 11/26/2012 5:38 AM EDT 11/26/2012 5:39 AM EDT us Tam See MD LABORATORY Final Resul t [facility] [address] [facility] [address] from Last 3 Months or Most Recently Relevant to Health Maintenance Insurance [place]ICAID [place] MEDICARE Care Teams Health Care Analyst Relationship Specialty Start Date End Date Lisseth Blank MD [address] [place] [address] PCP - General 08/01/10
--- OUTSIDE RECORDS SUMMARY | 2025-04-08 09:24 | XMS_ITS | Clinical Summary ---
Author Organization [facility] Address [address] [place] [address] Care Team Providers Care Manager Fraud Name Role Phone Lisseth Blank MD Primary Care Provider [phone] Allergies Active Allergy Reactions Criticality Noted Date Comments Other 04/05/2023 environmental Medications Meclizine HCl 25 MG chewable tablet Chew 1 tablet 1 (one) time each day at the same time. Active PARoxetine (Paxil) 10 MG tablet Take 10 mg by mouth 1 (one) time each day at the same time. Active metroNIDAZOLE (Flagyl) 500 MG tablet Take 500 mg by mouth in the morning and 500 mg in the evening and 500 mg before bedtime. Active fluticasone (Flonase) 50 MCG/ACT nasal spray Administer 2 sprays into each nostril 1 (one) time each day at the same time. 2 Active ofloxacin (Ocuflox) 0.3 % ophthalmic solution 4 drops every 8 (eight) hours. RT ear 2 Active omeprazole (PriLOSEC) [address] capsule Take 40 mg by mouth in the morning. Take before meals. Active famotidine (Pepcid) 20 MG tablet Take 20 mg by mouth at bedtime. 2 Active phentermine (Adipex-P) 37.5 MG tablet Take 37.5 mg by mouth in the morning. Take before meals. Active celecoxib (CeleBREX) 50 MG capsule Take 50 mg by mouth in the morning and 50 mg before bedtime. Active gabapentin (Neurontin) 100 MG capsule Take by mouth Activ e tiZANidine (Zanaflex) 2 MG capsule Take by mouth as needed at bedtime for muscle spasms Active CRANBERRY PO Take by mouth Act deric omega-3 (FISH OIL) 300 MG capsule Take by mouth Daily Active Active Problems Problem Noted Date Diagnosed Date Perforation of left tympanic membrane 04/11/2023 Chronic rhinitis 04/05/2023 Dysfunction of both eustachian tubes 04/05/2023 Hoarseness 04/05/2023 LPRD (laryngopharyngeal reflux disease) 04/05/20 Otorrhea of right ear 04/05/2023 Perforation of right tympanic membrane Sensorineural hearing loss, bilateral 04/05/2023 Lymphedema 04/05/2023 RODRIGUEZ (nonalcoholic steatohepatitis) 04/05/2023 KWAN (obstructive sleep apnea) 04/05/2023 Sinus tachycardia 04/05/2023 Immunizations Immunization Administration Dates Next Due Influenza, injectable, quadrivalent, preservativ e free 05/31/2023,06/07/2022 Influenza, seasonal, injectable, preservative fr ee 07/08/2024 Novel [id number], preservative-free 08/18 Pneumococcal Polysaccharide PPSV23 03/10/2019 Family History Medical History Relation Name Comments Heart failure Father Diabetes Maternal Grandfather Cancer Sister Relation Name Status Comments Father Alive Maternal Grandfather Mother Alive Sister Social History Tobacco Use Types Packs/Day Years Used Date Smoking Tobacco: Never Smokeless Tobacco: Never Tobacco Cessation:Counseling Given: Not Answered Alcohol Use Standard Drinks/Week Comments Not Currently 0 (1 standard drink = 0.6 oz pur e alcohol) Sex and Gender Information Value Date Recorded Sex Assigned at Not on file Legal Sex Male 6:44 PM EDT Gender Identity Not on file Sexual Orientation Not on file Last Filed Vital Signs Vital Sign Reading Time Taken Comments Blood Pressure 140/85 04/11/2023 11:31 AM EDT Pulse - - Temperature - - Respiratory Rate - - Oxygen Saturation - - Inhaled Oxygen Concentration - - Weight 170 kg (375 lb) 11/05/2024 10:17 AM EST Height 175.3 cm (5' 9 ) 11/05/2024 10:17 AM EST Body Mass Index 55.38 11/05/2024 10:17 AM EST Plan of Treatment Health Maintenance Due Date Last Done Comments CT Colonography 1977 Colonoscopy 1977 Colorectal Cancer Screening 1977 FIT-DNA 1977 FIT 1977 FOBT 1977 Sigmoidoscopy 1977 Influenza Vaccine (#1) 2025 07/08/2024, 2022, 06/07/2022 Insurance BCBS Care Teams Manager Fraud Relationship Specialty Start Date End Date Lisseth Blank MD [address] [place] [id number] PCP - General Family Medicine 04/05/23
--- OUTSIDE RECORDS SUMMARY | 2025-04-08 09:24 | XMS_ITS | Encounter Summary ---
Author Organization [employer] Address [id number] [address] [place] [address] Care Team Providers Care Senior Analytical Chemist Name Role Phone Shanita MancillaNoy LINDQUIST-CYBER SECURITY ARCHITECT Primary Care Provider [phone] Reason for Visit * Reason Onset Date Comments Med Refill 03/05/2025 Encounter Details Date Type Department Care Team (Late st Contact Info) Description 03/05/2025 Refill [facility] [address] [place] [phone] Nury Quinteros MD [address] [place] [address] Low 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 Social History Tobacco Use Types Packs/Day Years Used Date Smoking Tobacco: Former Cigarettes Smokeless Tobacco: Never Alcohol Use Standard Drinks/Week Comments Not Asked 0 (1 standard drink = 0.6 oz pur e alcohol) SOCIALLY Childcare Answer Date Recorded Childcare Unknown 02/19/2019 Employment Answer Date Recorded Employment Unknown 02/19/2019 Sex and Gender Information Value Date Recorded Sex Assigned at Not on file Legal Sex Male 12:09 PM EDT Gender Identity Not on file Sexual Orientation Not on file documented as of this encounter Miscellaneous Notes * Telephone Encounter - Lianna Bearden RN - 03/05/2025 9:14 AM EDT Will refill via other means. documented in this encounter Plan of Treatment Upcoming Encounters Date Type Department Care Team (Late st Contact Info) Description 04/24/2025 10:00 AM EDT Office Visit [facility] [address] [phone] Nury Quinteros MD [address] [place] [address] documented as of this encounter Visit Diagnoses Diagnosis Low 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 documented in this encounter Care Teams Senior Analytical Chemist Relationship Specialty Start Date End Date Alexia Mancilla, CLOTH SHEARER-CYBER SECURITY ARCHITECT [address] [place], [place] [address] [address] PCP - General Nurse Practitioner 11/28/24 documented as of this encounter
--- OUTSIDE RECORDS SUMMARY | 2025-04-08 09:24 | XMS_ITS | Patient Health Record ---
Author Organization [facility] Address [address] [place] [address] Care Team Providers Care Parent Trainer Name Role Phone Jose Romero Unavailable [phone] Allergies No Known Allergies Reason For Referral No Information Medications Medication SIG (Take, Route, Frequency, Duration) Notes Start Date End Date Status Vitamin D3 Unknown Vitamin B-12 Unknown vitamin E Unknown Social History Tobacco Use: Social History Observation Description Date Details (start date - stop date) Never Smoker NA - NA Smoking History Question Answer Notes Smoking Status NonSmoker Alcohol Screening Question Answer Notes Did you have a drink containging alcohol in the last year? Yes Points 0 Interpretation Negative Problems Problem Type SNOMED Code ICD Code Onset Dates Problem Status W/U Status Risk Notes Problem 817005056306072 Unilateral prima ry osteoarthritis, left hip (M16.12) Active confirmed Problem 602542587 Spinal stenosis, lumbosacral region (M48.07) Active confirmed Problem 72820855 Other intervertebral disc degeneration, lumbosacral region (M51.37) Active confirmed Problem 508462737 Lumbar spondylos is (M47.816) Active confirmed Plan Of Treatment No Information Insurance Providers Payer Name Payer Address Payer Phone Subscriber Number Group Number Insured Name Patient Relationship to Insured Coverage Start Date Coverage End Date [facility] [address] [place] [address] [id number] RAKESH PIÑA Self - patient is the insured Medical (General) History Medical History History ICD Code Sleep apnea CPAP Machine: Do you use the CPAP machine? Yes Surgical History Surgery Date(Month/Year) Bariatric 2009
--- OUTSIDE RECORDS SUMMARY | 2025-04-08 09:24 | XMS_ITS | Encounter Summary ---
Author Organization [employer] Address [id number] [address] [place] [address] Care Team Providers Care Test Rider Name Role Phone Alexia Mancilla Donato LINDQUIST-BLEACHER OPERATOR Primary Care Provider [phone] Encounter Details Date Type Department Care Team (Late st Contact Info) Description 03/19/2025 Orders Only [facility] [address] [address] Ref Prov, [place] [address] Social History Tobacco Use Types Packs/Day Years [...] on file documented as of this encounter Plan of Treatment Upcoming Encounters Date Type Department Care Team (Late st Contact Info) Description 04/24/2025 10:00 AM EDT Office Visit [facility] [address] [place] [phone] Nury Quinteros MD [address] [place] [address] documented as of this encounter Procedures Procedure Name Priority Date/Time Associated Diagnosis Comments MULTIPLE LABS Routine 03/19/2025 1:37 PM EDT documented in this encounter Results * Multiple labs (03/19/2025 1:37 PM EDT) us Not In System Ref Prov [place] IMAGING Final Res ult MANUALLY TRANSCRIBED RESULTS documented in this encounter Visit Diagnoses Not on filedocumented in this encounter Care Teams Test Rider Relationship Specialty Start Date End Date Alexia Mancilla, SLD TEACHER-BLEACHER OPERATOR [address] [place] [address] [place] [address] PCP - General Nurse Practitioner 11/28/24 documented as of this encounter
--- OUTSIDE RECORDS SUMMARY | 2025-04-08 09:24 | XMS_ITS | Encounter Summary ---
Author Organization [employer] Address [id number] [address] [place] [address] Care Team Providers Care Manager Paid Name Role Phone Alexia Mancilla Donato LINDQUIST-APPLICATION INTERNSHIP Primary Care Provider [phone] Encounter Details Date Type Department Care Team (Late st Contact Info) Description 04/02/2025 Orders Only [facility] [address] [phone] Ref Prov, [place] [address] Social History Tobacco Use Types Packs/Day Years [...] Visit [facility] [address] [place] [phone] Nury Quinteros MD [address] [place] [address] documented as of this encounter Procedures Procedure Name Priority Date/Time Associated Diagnosis Comments MULTIPLE LABS Routine 04/02/2025 3:07 PM EDT MULTIPLE LABS Routine 04/02/2025 2:58 PM EDT documented in this encounter Results * Multiple labs (04/02/2025 3:07 PM EDT) us Not In System Ref Prov [place] IMAGING Final Res ult Performing Organization Address [facility] Co de Phone Number MANUALLY TRANSCRIBED RESULTS * Multiple labs (04/02/2025 2:58 PM EDT) us Not In System Ref Prov FL IMAGING Final Res ult Performing Organization Address [facility] de Phone Number MANUALLY TRANSCRIBED RESULTS documented in this encounter Visit Diagnoses Not on filedocumented in this encounter Care Teams Manager Paid Relationship Specialty Start Date End Date Alexia Mancilla, REHABILITATION NURSE-APPLICATION INTERNSHIP [address] [place] [address] [place] [address] PCP - General Nurse Practitioner 11/28/24 documented as of this encounter
--- OUTSIDE RECORDS SUMMARY | 2025-04-08 09:24 | XMS_ITS | Clinical Summary ---
Author Organization [facility] Address [address] [facility], [address] [place] [address] Care Team Providers Care Associate Trainer Name Role Phone Unavailable Primary Care Provider Unavailabl e Social History Tobacco Use Types Packs/Day Years Used Date Smoking Tobacco: Never Assessed Sex and Gender Information Value Date Recorded Sex Assigned at Not on file Legal Sex Male 10:59 AM EST Gender Identity Not on file Sexual Orientation Not on file Plan of Treatment Health Maintenance Due Date Last Done Comments Depression Screen 1989 HIV screen 1992 Hepatitis C screen 1995 DTaP/Tdap/Td vaccine (1 - Tdap) 1996 Hepatitis B vaccine (1 of 3 - 19+ 3-dose series) 1996 Lipids 2017 Colonoscopy 2022 Colorectal Cancer Screen 2022 FIT/FOBT: Average risk 2022 Fecal-DNA (Cologuard): [place] ge risk 2022 Sigmoidoscopy/CT colonography 2022 COVID-19 Vaccine (3 - 2023-2 5 season) 2024 11/12/2020, 10/22/2020 Flu vaccine (#1) 04/10/2025 05/31/2023, 06/07/2022, 08/18/2009 Pneumococcal 0-49 years Vaccine Aged Out 03/10/2019 No longer eligible b ased on patient's age to complete this topic Hepatitis A vaccine Aged Out No longe r eligible based on patient's age to complete this topic Hib vaccine Aged Out No longer eligi ble based on patient's age to complete this topic Meningococcal (ACWY) vaccine Aged Out No longer eligible based on patient's age to complete this topic Meningococcal B vaccine Aged Out No l onger eligible based on patient's age to complete this topic Polio vaccine Aged Out No longer elig ible based on patient's age to complete this topic Insurance BCBS OUT OF STATE
--- OUTSIDE RECORDS SUMMARY | 2025-04-08 09:45 | XMS_ITS | CCD ---
Author Organization [facility] CliniSytn Care Team Providers Care Manager Agriculture Name Role Phone MAZIN CANO Admitting Unavailable MAZIN CANO Attending Unavailable BLANK, DR LULU Tejeda Primary Care Unavailable WEST, DR KELLIE Benavides Consulting Unavailable RACHAELMAZIN VALDERRAMA Consulting Unavailable BLANK, DR LULU Tejeda Admitting [...] UGALDE Attending Unavailable TorstenEffie Primary Care Physician EFFIE SARMIENTO Referring Unavailable TORSTEN, EFFIE Referring Unavailable Torsten, Effie Sewell Attending Unavailable Torsten, Effie Sewell Attending Unavailable Torsten, Effie Sewell Attending Unavailable Torsten, Effie Sewell Attending Unavailable Torsten, Effie Sewell Attending Unavailable Torsten, Effie Sewell Attending Unavailable Torsten, Effie Sewell Attending Unavailable Torsten, Effie Sewell Attending Unavailable Torsten, Effie Sewell Admitting Unavailable Torsten, Effie Sewell Admitting Unavailable Torsten, Effie Sewell Attending Unavailable Torsten, Effie Sewell Attending Unavailable Torsten, Effie Sewell Attending Unavailable Lulu Blank MD Primary Care Provider [phone] PEDRO CONTE Attending Unavailable RUSPEDRO WHITTINGTON Attending Unavailable PEDRO CONTE Attending Unavailable Torsten FLIGHT DATA TECHNICIAN-NEMATOLOGY TEACHEREffie Primary Care Provider RAAD POTTER Referring Unavailable TORSTEN, EFFIE Sewell Primary Care Unavailable Torsten FLIGHT DATA TECHNICIAN-NEMATOLOGY TEACHEREffie Primary Care Provider Sita CORRIGAN, Wilbert Guardado Attending Unavailable Giedraitis , Andrius Vytautas Attending Unavailable Giedraitis , Andrius Vytautas Attending Unavailable Giedraitis , Andrius Vytautas Attending Unavailable Giedraitis , Andrius Vytautas Attending Unavailable Giedraitis MD, Andrius Vytautas Attending Unavailable Giedraitis MD, Andrius Vytautas Attending Unavailable POTTERNURY BAIRD N Attending Unavailable TORSTEN, EFFIE L Primary Care Unavailable POTTER, NURY N Attending Unavailable TORSTEN, EFFIE L Referring Unavailable TORSTEN, EFFIE L Primary Care Unavailable QUINNIRIS Attending Unavailable TORSTEN, EFFIE L Referring Unavailable TORSTEN, EFFIE L Primary Care Unavailable QUINN, IRIS Attending Unavailable TORSTEN, EFFIE L Referring Unavailable TORSTEN, EFFIE L Primary Care Unavailable QUINN, IRIS Attending Unavailable TORSTEN, EFFIE L Referring Unavailable TORSTEN, EFFIE L Primary Care Unavailable Jose Carlos Whitt DO Attending Provider [phone] Torsten REGULATORY TECHNICIAN-CEffie Primary Care Provider Allergies Allergy Classification Reported Allergen(s) Allergy Type [...] (7 sources) Histamine-2 Receptor Antagonist Start: 03-03-20 take 1 tablet by mouth at bedtime [...] day(s), # 21 tab(s), Refills(s) 0, Pharmacy: [facility]/pharmacy #[id number], 176.5, cm, 03/19/23 13:15:00 EDT, [...] Daily, # 90 tab(s), Refills(s) 3, Pharmacy: [facility]/pharmacy #[id number], 176.5, cm, 07/26/23 9:32:00 EST, Height/Length Dosing, 187.2, kg, 07/26/23 9:32:00 EST, Weight Dosing Start Date: 07/26/23 Status: Ordered phentermine hydrochloride 37.5 mg oral tablet (9 sources) Sympathomimetic Amine Anorectic Start: 07-26-2023 take 1 tablet by mouth once daily phentermine 37.5 mg Tab 37.5 mg = 1 tab(s), Oral, Daily, # 30 tab(s), Refills(s) 0, Pharmacy: [facility] #[id number], 176.5, cm, 07/26/23 9:32:00 EST, Height/Length Dosing, 187.2, kg, 07/26/23 9:32:00 EST, Weight Dosing Start Date: 07/26/23 Status: Ordered Start: 03-19-2023 End: 04-18-2023 take 1 tablet by mouth once daily phentermine 37.5 mg Tab 37.5 mg = 1 tab(s), Oral, Daily, X 30 day(s), # 30 tab(s), Refills(s) 0, [id number], 176.5, cm, 03/19/23 13:15:00 EDT, [...] left ankle] 10-08-2024 Episodic Administrative/socia l admission (6 sources) Patient encounter status; Translations: [Dietary counseling [...] 12-02-19 ABSOLUTE BASOPHIL 0.2 X10E9/L Normal 0.0-0.2 [facility] Comment on above: Performed By: #### 4 8615-9, 55947-3 #### [facility] ([id number]) [address] [place] [address] 71[address] #### LIVR, 40057-0, 2731-8, 2498-4, HA1C, 2132-9, 3016-3, CBCA #### [facility] ([id number]) [address] [address], [address] [place] [address] ABSOLUTE NEUTROPHIL 5.2 X10E9/L Normal 1.5-6.6 [facility] Comment on above: Performed By: #### 4 8615-9, 84123-6 #### [facility] ([id number]) [address] [place] [address] 76703 #### LIVR, 33913-2, 2731-8, 2498-4, HA1C, 2132-9, 3016-3, CBCA #### [facility] ([id number]) [address], [address] [place] [address] Basophils/100 WBC (Bld) 2.6 % Normal [facility] Comment on above: Performed By: #### 4 8615-9, 59593-5 #### [facility] ([id number]) [address] [place] [address]17 #### LIVR, 97475-9, 2731-8, 2498-4, HA1C, 2-9, 3016-3, CBCA #### [facility] ([id number]) [address], [address] [place] [address] Eosinophils (Bld) [#/Vol] 0.1 10*3/uL Normal 0.0-0.4 [facility] Comment on above: Performed By: #### 4 8615-9, 95236-8 #### [facility] ([id number]) [address] [place] [address] #### LIVR, 59019-7, 2731-8, 2498-4, HA1C, 2-9, 3016-3, CBCA #### [facility] ([id number]) [address], [address] [place] [address] Eosinophils/100 WBC (Bld) 1.5 % Normal [facility] Comment on above: Performed By: #### 4 8615-9, 15688-1 #### [facility] ([id number]) [address] [place] [address] 87519 #### LIVR, 44957-3, 2731-8, 2498-4, HA1C, 2132-9, 3016-3, CBCA #### [facility] ([id number]) [address], [address] [place] [address] Erythrocyte distribution width (RBC) [Ratio] 16.0 % High 11.5-15.0 [facility] Comment on above: Performed By: #### 4 8615-9, 65363-5 #### [facility] ([id number]) [address] [place] [address] 45822 #### LIVR, 16706-8, 2731-8, 2498-4, HA1C, 2132-9, 3016-3, CBCA #### [facility] ([id number]) [address], [facility] [address] [place] [address] Hematocrit (Bld) [Volume fraction] 44.1 % Normal 39-49 [facility] Comment on above: Performed By: #### 4 8615-9, 18487-1 #### [facility] ([id number]) [address] [place] [address] 52427 #### LIVR, 17357-1, 2731-8, 2498-4, HA1C, 2132-9, 3016-3, CBCA #### [facility] ([id number]) [address], [address] [address] Hemoglobin (Bld) [Mass/Vol] 14.6 g/dL Normal 13.0-17.0 [facility] Comment on above: Performed By: #### 4 8615-9, 30494-7 #### [facility] ([id number]) [address] [place] [address] 13449 #### LIVR, 23263-6, 2731-8, 2498-4, HA1C, 2132-9, 3016-3, CBCA #### [facility] ([id number]) [address], [facility] [address] [place] [address] Lymphocytes (Bld) [#/Vol] 1.3 10*3/uL Normal 1.0-3.5 [facility] Comment on above: Performed By: #### 4 8615-9, 52178-3 #### [facility] ([id number]) [address] [place] [address] 84185 #### LIVR, 08092-9, 2731-8, 2498-4, HA1C, 2132-9, 3016-3, CBCA #### [facility] ([id number]) [address], [address] [place] [address] Lymphocytes/100 WBC (Bld) 18.4 % Normal [facility] Comment on above: Performed By: #### 4 8615-9, 64509-2 #### [facility] ([id number]) [address] [place] [address] 9[address]88 #### LIVR, 22419-2, 2731-8, 2498-4, HA1C, 2132-9, 3016-3, CBCA #### [facility] ([id number]) [address] [address], [address] [place] [address] MCH (RBC) [Entitic mass] 28.3 pg Normal 27-34 [facility] Comment on above: Performed By: #### 4 8615-9, 13184-4 #### [facility] ([id number]) [address] [place] [address] #### LIVR, 33238-6, 2731-8, 2498-4, HA1C, 2132-9, 3016-3, CBCA #### [facility] ([id number]) [address] [facility], [address] [place] [address] MCHC (RBC) [Mass/Vol] 33.1 g/dL Normal 32-[address] [facility] Comment on above: Performed By: #### 4 8615-9, 05179-3 #### [facility] ([id number]) [address] [place] [address] 87988 #### LIVR, 18778-8, 2731-8, 2498-4, HA1C, 2131-9, 3016-3, CBCA #### [facility] ([id number]) [address], [address] [place] [address] MCV (RBC) [Entitic vol] 85 fL Normal 80-100 [facility] Comment on above: Performed By: #### 4 8615-9, 44950-1 #### [facility] ([id number]) [address] [place] [address] 19813 #### LIVR, 05607-3, 2731-8, 2498-4, HA1C, 2131-9, 6-3, CBCA #### [facility] ([id number]) [address], [address] [place] [address] Monocytes (Bld) [#/Vol] 0.3 10*3/uL Normal 0-0.9 [facility] Comment on above: Performed By: #### 4 8615-9, 82671-5 #### [facility] ([id number]) [address] [place] [address] 59884 #### LIVR, 61097-3, 2731-8, 2498-4, HA1C, 2131-9, 6-3, CBCA #### [facility] ([id number]) [address], [address] [place] [address] Monocytes/100 WBC (Bld) 4.3 % Normal [facility] Comment on above: Performed By: #### 4 8615-9, 34329-7 #### [facility] ([id number]) [address] [place] [address] 44157 #### LIVR, 15753-8, 2731-8, 2498-4, HA1C, 2131-9, 3016-3, CBCA #### [facility] ([id number]) [address], [address] [place] [address] Neutrophils/100 WBC (Bld) 73.2 % Normal [facility] Comment on above: Performed By: #### 4 8615-9, 90444-8 #### [facility] ([id number]) [address] [place] [address] 46401 #### LIVR, 25909-6, 2731-8, 2498-4, HA1C, 2-9, 3016-3, CBCA #### [facility] ([id number]) [address], [address] [place] [address] Platelet mean volume (Bld) [Entitic vol] 7.6 fL Normal 7-12 [facility] Comment on above: Performed By: #### 4 8615-9, 24517-9 #### [facility] ([id number]) [address] [place] [address] 30784 #### LIVR, 45449-4, 1-8, 2498-4, HA1C, 2131-9, 3016-3, CBCA #### [facility] ([id number]) [address], [address] [place] [address] Platelets (Bld) [#/Vol] 234 10*3/uL Normal 150-450 [facility] Comment on above: Performed By: #### 4 8615-9, 34949-8 #### [facility] ([id number]) [address] [place] [address] 46914 #### LIVR, 69429-6, 2731-8, 2498-4, HA1C, 2-9, 3016-3, CBCA #### [facility] ([id number]) [address], [address] [place] [address] RBC COUNT 5.16 X10E12/L Normal 4.10-5.70 [facility] Comment on above: Performed By: #### 4 8615-9, 48409-3 #### [facility] ([id number]) [address] [place] [address] 70199 #### LIVR, 31615-2, 2731-8, 2498-4, HA1C, 2132-9, 3016-3, CBCA #### [facility] ([id number]) [address] [address], [address] [place] [address] WBC (Bld) [#/Vol] 7.1 10*3/uL Normal 4.0-11.0 [facility] Comment on above: Performed By: #### 4 8615-9, 60052-5 #### [facility] ([id number]) [address] [place] [address] 75164 #### LIVR, 99337-9, 2731-8, 2498-4, HA1C, 2132-9, 3016-3, CBCA #### [facility] ([id number]) [address] [facility], [address] [place] [address] HGB A1C (GLYCO-HGB)on 2024 Glucose [Mass/Vol] 103 mg/dL Normal [facility] Comment on above: Performed By: #### 4 8615-9, 64388-0 #### [facility] ([id number]) [address] [place] [address] 60128 #### LIVR, 94142-2, 2731-8, 2498-4, HA1C, 2132-9, 3016-3, CBCA #### [facility] ([id number]) [address] [facility] [facility], [address] [place] [address] HbA1c (Bld) [Mass fraction] 5.2 % Normal 4.4-5.6 [facility] Comment on above: Result Comment: NOTE ADA Guidelines Result HgbA1c Normal : less than 5.7 % Prediabetes : 5.7 % to 6.4 % Diabetes : > 6.4 % Use with caution in patients with abnormal hemoglobin variants as the half-life of red blood cells and in vivo glycation rates are affected. Performed By: #### 4 8615-9, 21352-2 #### [facility] ([id number]) [address] [place] [address] 19875 #### LIVR, 81010-8, 2731-8, 2498-4, HA1C, 2132-9, 3016-3, CBCA #### [facility] ([id number]) [address], [address] [place] [address] IRONon 12-01-2024 Iron [Mass/Vol] 51 ug/dL Normal 50-212 [facility] Comment on above: Performed By: #### 4 8615-9, 35736-0 #### [facility] ([id number]) [address] [place] [address] 17681 #### LIVR, 84439-1, 2731-8, 2498-4, HA1C, 2132-9, 3016-3, CBCA #### [facility] ([id number]) [address] [facility], [address] [place] [address] Insulin.free and Insulin.tot al panel Qnon 12-01-2024 Insulin, Free, S 146 mcIU/mL High 3 - 25 [facility] Comment on above: Performed By: #### 4 8615-9, 39933-7 #### [facility] ([id number]) [address] [place] [address] 83798 #### LIVR, 99516-1, 2731-8, 2498-4, HA1C, 2132-9, 3016-3, CBCA #### [facility] ([id number]) [address] [facility], [address] [place] [address] Insulin, Total, S 168 mcIU/mL High 3 - 25 [facility] Comment on above: Result Comment: NOTE ADDITIONAL INFORMATION This test has been modified from the modeling and simulation analyst's instructions. Its performance characteristics were determined by [facility] in a manner consistent with CLIA [...] the total insulin concentration. Test Performed by: [facility] [address] [place] [address] Billboard Erector Helper: Leslye Pink Ph.D.; CLIA# [id number] Performed By: #### 4 8615-9, 15852-9 #### [facility] ([id number]) [address] [place] [address] 29065 #### LIVR, 27094-8, 2731-8, 2498-4, HA1C, 2132-9, 3016-3, CBCA #### [facility] ([id number]) [address] [facility], [address] [place] [address] LIVER PANELon 12-01-2024 Albumin [Mass/Vol] 3.7 g/dL Normal 3.2-5.3 [facility] Comment on above: Performed By: #### 4 8615-9, 44330-8 #### [facility] ([id number]) [address] [place] [address] 96960 #### LIVR, 54474-9, 2731-8, 2498-4, HA1C, 2132-9, 3016-3, CBCA #### [facility] ([id number]) [address], [address] [place] [address] ALP [Catalytic activity/Vol] 59 U/L Normal 39-130 [facility] Comment on above: Performed By: #### 4 8615-9, 77653-0 #### [facility] ([id number]) [address] [place] [address] 81249 #### LIVR, 19202-2, 2731-8, 2498-4, HA1C, 2132-9, 3016-3, CBCA #### [facility] ([id number]) [address] [facility], [address] [place] [address] ALT [Catalytic activity/Vol] 19 U/L Normal 0-40 [facility] Comment on above: Performed By: #### 4 8615-9, 26190-6 #### [facility] ([id number]) [address] [place] [address] 98799 #### LIVR, 45086-9, 2731-8, 2498-4, HA1C, 2132-9, 3016-3, CBCA #### [facility] ([id number]) [address], [address] [place] [address] AST [Catalytic activity/Vol] 18 U/L Normal 0-41 [facility] Comment on above: Performed By: #### 4 8615-9, 20984-3 #### [facility] ([id number]) [address] [place] [address] 94443 #### LIVR, 34897-3, 2731-8, 2498-4, HA1C, 2132-9, 3016-3, CBCA #### [facility] ([id number]) [address], [address] [place] [address] Bilirubin [Mass/Vol] 0.5 mg/dL Normal 0.3-1.2 [facility] Comment on above: Performed By: #### 4 8615-9, 20222-4 #### [facility] ([id number]) [address] [place] [address] 57986 #### LIVR, 97495-9, 2731-8, 2498-4, HA1C, 2131-9, 3016-3, CBCA #### [facility] ([id number]) [address] [facility], [address] [place] [address] Bilirubin.direct [Mass/Vol] 0.1 mg/dL Normal 0.0-0.4 [facility] Comment on above: Performed By: #### 4 8615-9, 70115-2 #### [facility] ([id number]) [address] [place] [address] 13964 #### LIVR, 37883-1, 2731-8, 2498-4, HA1C, 2131-9, 3016-3, CBCA #### [facility] ([id number]) [address] [facility], [address] [place] [address] Protein [Mass/Vol] 7.3 g/dL Normal 6.0-8.0 [facility] Comment on above: Performed By: #### 4 8615-9, 17413-0 #### [facility] ([id number]) [address] [place] [address] 37714 #### LIVR, 05544-2, 2731-8, 2498-4, HA1C, 2-9, 3016-3, CBCA #### [facility] ([id number]) [address], [address] [place] [address] Parathyrin.intact [Mass/Vol] on 12-01-2024 PTH INTACT 25 pg/mL Normal 12-88 [facility] Comment on above: Performed By: #### 4 8615-9, 57450-5 #### [facility] ([id number]) [address] [place] [address] 98116 #### LIVR, 87664-3, 2731-8, 2498-4, HA1C, 2132-9, 3016-3, CBCA #### [facility] ([id number]) [address] [place] [address], [address] [place] [address] TSH Qnon 12-01-2024 TSH 1.64 uIU/mL Normal 0.49-4.67 [facility] Comment on above: Performed By: #### 4 8615-9, 03632-2 #### [facility] ([id number]) [address] [place] [address] 17715 #### LIVR, 37100-6, 2731-8, 2498-4, HA1C, 2132-9, 3016-3, CBCA #### [facility] ([id number]) [address] [place] [address], [address] [place] [address] Testosterone free and total panel [Mass/Vol]on 12-01-2024 Testosterone [Mass/Vol] 286 ng/dL Normal 240-950 [facility] Comment on above: Result Comment: NOTE ADDITIONAL INFORMATION Testing performed by Liquid Chromatography-Tandem Mass Spectrometry (LC-MS/MS). This test was developed and its performance characteristics determined by [facility] in a manner consistent with CLIA requirements. This test has not been cleared or approved by the U.S. Food and Drug Administration. Test Performed by: [address] [address] Billboard Erector Helper: Leslye Pink Ph.D.; CLIA# [id number] Performed By: #### 4 8615-9, 89782-9 #### [facility] ([id number]) [address] [place] [address] #### LIVR, 36807-0, 2731-8, 2498-4, HA1C, 2132-9, 3016-3, CBCA #### [facility] ([id number]) [address], [address] [place] [address] TESTOSTERONE FREE 8.16 ng/dL Normal 4.26-16.4 [facility] Comment on above: Result Comment: NOTE ADDITIONAL INFORMATION This test was developed and its performance characteristics determined by [facility] in a manner consistent with CLIA requirements. This test has not been cleared or approved by the U.S. Food and Drug Administration. Performed By: #### 4 8615-9, 57646-1 #### [facility] ([id number]) [address] [place] [address] 34127 #### LIVR, 54750-9, 2731-8, 2498-4, HA1C, 2131-9, 3016-3, CBCA #### [facility] ([id number]) [address], [address] [place] [address] VITAMIN B12on 12-01-2024 Cobalamin (Vitamin B12) [Mass/Vol] 399 pg/mL Normal 180-914 [facility] Comment on above: Performed By: #### 4 8615-9, 09176-4 #### [facility] ([id number]) [address] [place] [address] 61395 #### LIVR, 30901-9, 2731-8, 2498-4, HA1C, 2132-9, 3016-3, CBCA #### [facility] ([id number]) [address], [address] [place] [address] Vitamin D+Metabolites [Mass/ Vol]on 12-01-2024 VITAMIN D 25 HYD TOT 36.1 ng/mL Normal 30-100 [facility] Comment on above: Result Comment: Vitamin D status 25 [place] Vitamin D Deficiency <20 ng/mL Insufficiency 20-29 ng/mL Sufficiency 30-100 ng/mL Toxicity >100 ng/mL NOTE: A pediatric reference range has not been established by the modeling and simulation analyst of this kit. The [place] [employer] recommends a Vitamin D level of = or >20ng/mL in infants and children. Performed By: #### 4 8615-9, 71697-6 #### [facility] ([id number]) [address] [place] [address], [place] [address] #### LIVR, 55472-7, 2731-8, 2498-4, HA1C, 2132-9, 3016-3, CBCA #### [facility] ([id number]) [address] [place] [address], [address] [place] [address] Operative Reporton Operative Report [id number]#1. 00TIFF Normal [facility] Consultation Noteon 02-20-20 Consultation Note [id number]#1 .00TIFF Normal [facility] Consultation Noteon 02-06-20 Consultation Note [id number]#1 .00TIFF Normal [facility] RAD - MRI Reporton RAD - MRI Report [id number]#1 .00TIFF Normal [facility] MRI LUMBAR SPINE WO CONTRAST on [...] compromise. L2-L3: No disc bulge or protrusion. Yiyo-rn-dluppljn facet arthropathy. No significant central canal stenosis. [...] Carson Linares DO 01/24/24 Final result Normal [facility] MRI THORACIC SPINE WO CONTRA STon [...] Carson Linares DO 01/24/24 Final result Normal [facility] Family Medicine Office/Clini c Noteon 01-17-2024 [...] MRI. MRI order was sent to [facility] in [place]. Pt states the burning sensation from sitting [...] not able to get MRI done at [facility]. is waiting for PA for MRI in [place]. they have an open MRI machine. needs [...] days., # 18 tab(s), Refills(s) 0, Pharmacy: [facility]/pharmacy #[id number], 187.5, cm, 01/16/24 13:46:00 EDT, Height/Length Dosing, 183, kg, 01/16/24 13:4... 3. Non-smoker (Z78.9: Other specified health status) continue not smoking Ordered: predniSONE, = 1 -, Oral, As Directed, Take 3 tabs by mouth daily x3 days, then 2 tabs daily x3 days, then 1 tab daily x3 days., # 18 tab(s), Refills(s) 0, Pharmacy: [facility]/pharmacy #[id number], 187.5, cm, 01/16/24 13:46:00 EDT, [...] 1 tab daily x3 days. Pickup at [facility]/pharmacy #[id number] Unchanged cranberry (cranberry oral capsule) See instructions [...] Pain Non-smoker BMI 60.0-69.9, adult Pharmacy Information [facility]/pharmacy #[id number]: [address], [place] [id number] [phone] Allergies No Known Allergies Problems Ongoing - [...] you for choosing us for your care. [facility] Physician Orderon 01-14-2024 Physician Order [id number]#1 .00TIFF [facility] Provider Letteron 01-14-2024 Provider Letter January 14, 2024 RAKESH PIÑA [address] [place] [id number] : 1975 To Whom It May Concern, Please excuse above patient from work. Date of Illness: From: 01/07/2024 To: 01/16/2024 May Return to Work On: 01/17/2024 Restrictions: None Comments: Sincerely, Family Medicine [address] [address] [facility] Ambulatory Visit Summaryon 0 01-09-2024 [...] 11:20 AM EDT With: Effie Muhammad Where: [facility] Family Medicine Barbara Normal [facility] Consenton 01-09-2024 Consent [id number] .00TIFF Normal [facility] ED Note-Physicianon 01-09-20 ED Note-Physician [id number]# 1.00TIFF Normal [facility] Family Medicine Office/Clini c Noteon 01-09-2024 Family Medicine Office/Clinic Note HPI Staff Rakesh is a 48 year old male presenting for ER follow up ER followup: Hospital: [facility] Visit date: 01/07/24 Symptoms the patient [...] Pain, # 60 tab(s), Refills(s) 0, Pharmacy: [facility]/pharmacy #[id number], 187.5, cm, 01/09/24 10:51:00 EDT, [...] Pain, # 60 tab(s), Refills(s) 0, Pharmacy: [facility]/pharmacy #[id number], 187.5, cm, 01/09/24 10:51:00 EDT, Height/Length Dosing, 187.5, kg, 08/23/23 9:30:00 EST, Weight Dosing triamcinolone, 60 mg = 1.5 mL, Injection, IntraMuscular, Once, Stop date 01/09/24 11:20:00 EDT, Routine, Start date 01/09/24 11:20:00 EDT, 01/09/24 11:20:00 EDT Orders: phentermine, 37.5 mg = 1 tab(s), Oral, Daily, # 30 tab(s), Refills(s) 0, Pharmacy: [facility], 176.5, cm, 07/26/23 9:32:00 EST, Height/Length [...] Allergies Social Hi (more content not included)... [facility] Comment on above: Result Comment: Elec tronically Signed By: Torsten MONSIVAIS, Effie Sewell\.br\Date and Time Signed: 01/09/24 11:25 EDT Physician Orderon 01-09-2024 Physician Order [id number]#1 .00TIFF [facility] Provider Letteron 01-09-2024 Provider Letter January 09, 2024 [place] [id number] : 1975 To Whom It May Concern, Please excuse above patient from work due to medical Date of Illness: From: _01-08-24 To: _01-14-24 May Return to Work On:01-15-24 Restrictions: _ Comments: _ Sincerely, Family Medicine [address] [address] [facility] RAD - CT Reporton 01-09-2024 RAD - CT Report [id number]#1 .00TIFF [facility] ED Note-Physicianon 01-08-20 ED Note-Physician [id number]#1 .00TIFF [facility] RAD - CT Reporton 01-08-2024 RAD - CT Report [id number]#1 .00TIFF [facility] Operative Reporton Operative Report [id number]#1 .00TIFF [facility] Consultation Noteon 11-07-19 24 Consultation Note [id number]#1 .00TIFF Normal [facility] PT - Progress Noteson 2023 PT - Progress Notes [id number]#1 .00TIFF Normal [facility] RAD - MISCon 10-29-2023 RAD - MISC [id number]#1 .00TIFF Normal [facility] Retail - Clinical Noteon Retail - Clinical Note [id number]#1 .00TIFF Normal [facility] Plan of Care - PT/OT/Speecho n 09-06-2023 Plan of Care - PT/OT/Speech [id number]#1 .00TIFF Normal [facility] Physician Referralon 023 Physician Referral [id number]# 1.00TIF Normal [facility] Testost Totalon 08-25-2023 Testosterone [Mass/Vol] 321 ng/dL Invalid Interpretation Code [id number] [facility] Comment on above: Result Comment: Adul t male reference interval is based on a population of healthy nonobese males (BMI <30) between 19 and 39 years old. precious Perdue.al. JCEM 2017,102;5633-7870. PMID: 27680101. Performed at: [facility] [address] [id number] PhD Domenic Rider Performed By: #### 2 [id number], [id number], [id number] ####[facility] [address] [place] [address] Reminderson 08-24-2023 Reminders - From: Effie Muhammad [...] left detailed message for patient below Normal [facility] CHEMISTRYOrdered By: SYSTEM SYSTEM on 08-23-2023 Cobalamin (Vitamin B12) [Mass/Vol] 301 pg/mL Normal 50 - 1500 pg/mL Luminal Chem Vitamin D 25 Hydroxy 57.7 ng/mL [...] was in slow motion. 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 He would [...] he would like referral to PT at [facility] for bakc/leg pain. gabapentin and muscles relaxers did not help. 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 all questions answered. RTC as needed Ordered: cyclobenzaprine, 10 mg = 1 tab(s), Oral, Bedtime, PRN for spasm, # 30 tab(s), Refills(s) 0, Pharmacy: [facility] #[facility], 176.5, cm, 07/26/23 9:32:00 EST, Height/Length Dosing, 187.2, kg, 07/26/23 9:32:00 EST, Weight Dosing gabapentin, 300 mg = 1 cap(s), Oral, Daily, # 30 cap(s), Refills(s) 0, Pharmacy: [facility], 176.5, cm, 07/26/23 9:32:00 EST, Height/Length Dosing, 187.2, kg, 07/26/23 9:32:00 EST, Weight Dosing 2. Fatigue (R53.83: Other fatigue) labs drawn today Ordered: Lab Specimen Collect [id number] Testosterone Level Total 3. Hypogonadism male (E29.1: Testicular hypofunction) testosterone ordered Ordered: Lab Specimen Collect [id number] Testosterone Level Total 4. BMI 60.0-69.9, adult (Z68.44: Body mass index [BMI] 60.0-69.9, adult) bmi education complete Ordered: cyclobenzaprine, 10 mg = 1 tab(s), Oral, Bedtime, PRN for spasm, # 30 tab(s), Refills(s) 0, Pharmacy: [facility], 176.5, cm, 07/26/23 9:32:00 EST, Height/Length Dosing, 187.2, kg, 07/26/23 9:32:00 EST, Weight Dosing gabapentin, 300 mg = 1 cap(s), Oral, Daily, # 30 cap(s), Refills(s) 0, Pharmacy: [facility], 176.5, cm, 07/26/23 9:32:00 EST, Height/Length Dosing, 187.2, kg, 07/26/23 9:32:00 EST, Weight Dosing Testosterone Level Total Vitamin B12 Level Vitamin D 25 Hydroxy Follow-up No qualifying data available Patient Education Obesity, Adult, Kolt-fw-Fito Problem List/Past Medical History Ongoing Encounter for [...] Tob (more content not included)... Normal [facility] Comment on above: Result Comment: Elec tronically Signed By: Effie Muhammad\.jessica\Date and Time Signed: 08/23/23 12:58 EST Patient [...] food choices, such as grocery stores and [employer]. What are the signs or symptoms? The [...] How much exercise you get. ? Take uodd-kng-ojhzyul and prescription medicines only as told by [...] yo (more content not included)... Normal [facility] Vit B12on 08-23-2023 Cobalamin (Vitamin B12) [Mass/Vol] 301 pg/mL Normal 50-1500 [facility] Comment on above: Performed By: #### 2 832224, [id number], [id number] #### [facility] [address] [place] [address] Vitamin D 25 Hydroxyon 08-23 Vitamin D 25 Hydroxy 57.7 ng/mL Normal 30.0-100.0 [facility] Comment on above: Performed By: #### 2 573081, [id number], [id number] ####[facility] [address] [place] [address] Ambulatory Visit Summaryon 1 09-25-2022 Ambulatory Visit [...] 9:20 AM EST With: Effie Muhammad Where: [facility] Normal [facility] Office/Clini c Noteon 07-26-2023 [facility] Office/Clinic Note HPI Staff [...] spasm, # 30 tab(s), Refills(s) 0, Pharmacy: [facility], 176.5, cm, 07/26/23 9:32:00 EST, Height/Length Dosing, 187.2, kg, 07/26/23 9:32:00 EST, Weight Dosing gabapentin, 300 mg = 1 cap(s), Oral, Daily, # 30 cap(s), Refills(s) 0, Pharmacy: [facility], 176.5, cm, 07/26/23 9:32:00 EST, Height/Length Dosing, 187.2, kg, 07/26/23 9:32:00 EST, Weight Dosing methylPREDNISolone, = 1 packet(s), Oral, As Directed, as directed on package labeling, X 6 day(s), # 21 tab(s), Refills(s) 0, Pharmacy: [facility], 176.5, cm, 07/26/23 9:32:00 EST, Height/Length [...] spasm, # 30 tab(s), Refills(s) 0, Pharmacy: [facility], 176.5, cm, 07/26/23 9:32:00 EST, Height/Length Dosing, 187.2, kg, 07/26/23 9:32:00 EST, Weight Dosing gabapentin, 300 mg = 1 cap(s), Oral, Daily, # 30 cap(s), Refills(s) 0, Pharmacy: [facility], 176.5, cm, 07/26/23 9:32:00 EST, Height/Length Dosing, 187.2, kg, 07/26/23 9:32:00 EST, Weight Dosing methylPREDNISolone, = 1 packet(s), Oral, As Directed, as directed on package labeling, X 6 day(s), # 21 tab(s), Refills(s) 0, Pharmacy: [facility], 176.5, cm, 07/26/23 9:32:00 EST, Height/Length Dosing, 187.2, kg, 07/26/23 9:32:00 EST, Weight Dosing 3. Numbness and tingling of foot (R20.0: Anesthesia of skin) discussed ENG results Ordered: cyclobenzaprine, 10 mg = 1 tab(s), Oral, Bedtime, PRN for spasm, # 30 tab(s), Refills(s) 0, Pharmacy: [facility], 176.5, cm, 07/26/23 9:32:00 EST, Height/Length Dosing, 187.2, kg, 07/26/23 9:32:00 EST, Weight Dosing gabapentin, 300 mg = 1 cap(s), Oral, Daily, # 30 cap(s), Refills(s) 0, Pharmacy: [facility], 176.5, cm, 07/26/23 9:32:00 EST, Height/Length Dosing, 187.2, kg, 07/26/23 9:32:00 EST, Weight Dosing methylPREDNISolone, = 1 packet(s), Oral, As Directed, as directed on package labeling, X 6 day(s), # 21 tab(s), Refills(s) 0, Pharmacy: [facility], 176.5, cm, 07/26/23 9:32:00 EST, Height/Length Dosing, 187.2, kg, 07/26/23 9:32:00 EST, Weight Dosing 4. Class 3 obesity (E66.01: Morbid (severe) obesity due to excess calories) pt continues with diet Ordered: cyclobenzaprine, 10 mg = 1 tab(s), Oral, Bedtime, PRN for spasm, # 30 tab(s), Refills(s) 0, Pharmacy: [facility], 176.5, cm, 07/26/23 9:32:00 EST, Height/Length Dosing, 187.2, kg, 07/26/23 9:32:00 EST, Weight Dosing gabapentin, 300 mg = 1 cap(s), Oral, Daily, # 30 cap(s), Refills(s) 0, Pharmacy: [facility], 176.5, cm, 07/26/23 9:32:00 EST, Height/Length Dosing, 187.2, kg, 07/26/23 9:32:00 EST, Weight Dosing methylPREDNISolone, = 1 packet(s), Oral, As Directed, as directed on package labeling, X 6 day(s), # 21 tab(s), Refills(s) 0, Pharmacy: [facility], (more content not included)... [facility] Comment on above: Result Comment: Elec tronically Signed By: Effie Muhammad\.br\Date and Time Signed: 07/26/23 09:54 EST EMG Electromyographyon 07-10 EMG Electromyography [id number]#1 .00TIFF [facility] EMG Electromyography [id number]#1. 00TIFF [facility] Physician Referralon 023 Physician Referral [id number]# 1.00TIFF [facility] Ambulatory Visit Summaryon 1 Ambulatory [...] 9:20 AM EST With: Effie Muhammad Where: [facility] Normal [facility] Family Medicine Office/Clini c Noteon 06-21-2023 [...] day(s), # 30 tab(s), Refills(s) 1, Pharmacy: [facility], 176.5, cm, 06/21/23 9:41:00 EDT, Height/Length Dosing, 186.7, kg, 06/21/23 9:41:00 EDT, Weight Dosing meloxicam, 15 mg = 1 tab(s), Oral, Daily, X 30 day(s), # 30 tab(s), Refills(s) 0, Pharmacy: [facility], 176.5, cm, 06/21/23 9:41:00 EDT, Height/Length Dosing, 186.7, kg, 06/21/23 9:41:00 EDT, Weight Dosing meloxicam, 15 mg = 1 tab(s), Oral, Daily, # 30 tab(s), Refills(s) 1, Pharmacy: [facility], 176.5, cm, 05/22/23 9:51:00 EDT, Height/Length Dosing, 190.2, kg, 05/22/23 9:51:00 EDT, Weight Dosing 2. Left sciatic nerve pain (M54.32: Sciatica, left side) pt continues to have left sciatic nerve pain but it is improved Ordered: meloxicam, 15 mg = 1 tab(s), Oral, Daily, X 30 day(s), # 30 tab(s), Refills(s) 1, Pharmacy: [facility], 176.5, cm, 06/21/23 9:41:00 EDT, Height/Length Dosing, 186.7, kg, 06/21/23 9:41:00 EDT, Weight Dosing meloxicam, 15 mg = 1 tab(s), Oral, Daily, X 30 day(s), # 30 tab(s), Refills(s) 0, Pharmacy: [facility], 176.5, cm, 06/21/23 9:41:00 EDT, Height/Length Dosing, 186.7, kg, 06/21/23 9:41:00 EDT, Weight Dosing meloxicam, 15 mg = 1 tab(s), Oral, Daily, # 30 tab(s), Refills(s) 1, Pharmacy: [facility], 176.5, cm, 05/22/23 9:51:00 EDT, Height/Length Dosing, 190.2, kg, 05/22/23 9:51:00 EDT, Weight Dosing phentermine, 37.5 mg = 1 tab(s), Oral, Daily, X 30 day(s), # 30 tab(s), Refills(s) 0, Pharmacy: [facility] #[facility], 176.5, cm, 05/22/23 9:51:00 EDT, Height/Length Dosing, 190.2, kg, 05/22/23 9:51:00 EDT, Weight Dosing [facility] External Ambulatory Referral 3. Lower extremity numbness (R20.0: Anesthesia of skin) EMG order sent to [facility] in [facility] Ordered: [facility] External Ambulatory Referral 4. Morbid obesity due to excess calories (E66.01: Morbid (severe) obesity due to excess calories) BMI education complete Ordered: meloxicam, 15 mg = 1 tab(s), Oral, Daily, X 30 day(s), # 30 tab(s), Refills(s) 1, Pharmacy: [facility], 176.5, cm, 06/21/23 9:41:00 EDT, Height/Length Dosing, 186.7, kg, 06/21/23 9:41:00 EDT, Weight Dosing meloxicam, 15 mg = 1 tab(s), Oral, Daily, X 30 day(s), # 30 tab(s), Refills(s) 0, Pharmacy: [facility], 176.5, cm, 06/21/23 9:41:00 EDT, Height/Length Dosing, 186.7, kg, 06/21/23 9:41:00 EDT, Weight Dosing meloxicam, 15 mg = 1 tab(s), Oral, Daily, # 30 tab(s), Refills(s) 1, Pharmacy: [facility], 176.5, cm, 05/22/23 9:51:00 EDT, Height/Length Dosing, 190.2, kg, 05/22/23 9:51:00 EDT, Weight Dosing phentermine, 37.5 mg = 1 tab(s), Oral, Daily, X 30 day(s), # 30 tab(s), Refills(s) 0, Pharmacy: [facility], 176.5, cm, 05/22/23 9:51:00 EDT, Height/Length Dosing, 190.2, kg, 05/22/23 9:51:00 EDT, Weight Dosing 5. BMI 50.0-59.9, adult (Z68.43: Body mass index [BMI] 50.0-59.9, adult) BMI education complete 6. Non-smoker (Z78.9: Other specified health status) continue not smoking Ordered: meloxicam, 15 mg = 1 tab(s), Oral, Daily, X 30 day(s), # 30 tab(s), Refills(s) 1, Pharmacy: [facility], 176.5, cm, 06/21/23 9:41:00 EDT, Height/Length Dosing, 186.7, kg, 06/21/23 9:41:00 EDT, Weight Dosing meloxicam, 15 mg = 1 tab(s), Or (more content not included)... Normal [facility] Comment on above: Result Comment: Elec [...] 9:20 AM EDT With: Effie Muhammad Where: [facility] Ambulatory Visit Summary RAKESH PIÑA :1975 [...] 9:20 AM EDT With: Effie Muhammad Where: [facility] Family Medicine Office/Clini c Noteon 05-22-2023 [...] in his legs at night. 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 all questions answered. RTC 4 weeks Ordered: meloxicam, 15 mg = 1 tab(s), Oral, Daily, # 30 tab(s), Refills(s) 1, Pharmacy: [facility], 176.5, cm, 05/22/23 9:51:00 EDT, Height/Length Dosing, 190.2, kg, 05/22/23 9:51:00 EDT, Weight Dosing 2. Left sciatic nerve pain (M54.32: Sciatica, left side) will order antiinflammatory. steroid did not give him any relief Ordered: meloxicam, 15 mg = 1 tab(s), Oral, Daily, # 30 tab(s), Refills(s) 1, Pharmacy: [facility], 176.5, cm, 05/22/23 9:51:00 EDT, Height/Length Dosing, 190.2, kg, 05/22/23 9:51:00 EDT, Weight Dosing phentermine, 37.5 mg = 1 tab(s), Oral, Daily, X 30 day(s), # 30 tab(s), Refills(s) 0 phentermine, 37.5 mg = 1 tab(s), Oral, Daily, X 30 day(s), # 30 tab(s), Refills(s) 0, Pharmacy: [facility], 176.5, cm, 05/22/23 9:51:00 EDT, Height/Length Dosing, 190.2, kg, 05/22/23 9:51:00 EDT, Weight Dosing 3. BMI 60.0-69.9, adult (Z68.44: Body mass index [BMI] 60.0-69.9, adult) BMI education complete Ordered: meloxicam, 15 mg = 1 tab(s), Oral, Daily, # 30 tab(s), Refills(s) 1, Pharmacy: [facility], 176.5, cm, 05/22/23 9:51:00 EDT, Height/Length Dosing, 190.2, kg, 05/22/23 9:51:00 EDT, Weight Dosing 4. Morbid obesity due to excess calories (E66.01: Morbid (severe) obesity due to excess calories) see above Ordered: meloxicam, 15 mg = 1 tab(s), Oral, Daily, # 30 tab(s), Refills(s) 1, Pharmacy: [facility], 176.5, cm, 05/22/23 9:51:00 EDT, Height/Length Dosing, 190.2, kg, 05/22/23 9:51:00 EDT, Weight Dosing phentermine, 37.5 mg = 1 tab(s), Oral, Daily, X 30 day(s), # 30 tab(s), Refills(s) 0 phentermine, 37.5 mg = 1 tab(s), Oral, Daily, X 30 day(s), # 30 tab(s), Refills(s) 0, Pharmacy: [facility], 176.5, cm, 05/22/23 9:51:00 EDT, Height/Length Dosing, 190.2, kg, 05/22/23 9:51:00 EDT, Weight Dosing 5. Non-smoker (Z78.9: Other specified health status) continue not smoking Ordered: meloxicam, 15 mg = 1 tab(s), Oral, Daily, # 30 tab(s), Refills(s) 1, Pharmacy: [facility], 176.5, cm, 05/22/23 9:51:00 EDT, Height/Length Dosing, 190.2, kg, 05/22/23 9:51:00 EDT, Weight Dosing phentermine, 37.5 mg = 1 tab(s), Oral, Daily, X 30 day(s), # 30 tab(s), Refills(s) 0 phentermine, 37.5 mg = 1 tab(s), Oral, Daily, X 30 day(s), # 30 tab(s), Refills(s) 0, Pharmacy: [facility], 176.5, cm, 05/22/23 9:51:00 EDT, Height/Length [...] Daily Allerg (more content not included)... Normal [facility] Comment on above: Result Comment: Elec tronically Signed By: Effie Muhammad\.br\Date and Time Signed: 05/22/23 10:34 EDT Consenton 04-26-2023 Consent [id number] .00CD:127 Normal [facility] Family Medicine Office/Clini c Noteon 04-24-2023 [...] 60mg IM in office today. Normal [facility] Comment on above: Result Comment: Elec [...] 11:00 AM EDT With: Effie Muhammad Where: [facility] Normal [facility] Auto Diffon 03-19-2023 Basophils/100 WBC (Bld) 0.3 % Normal 0.0-2.0 [facility] Comment on above: Order Comment: Order Added by Discern Expert. Performed By: #### 2 701004, 7409709, 0636591, 0930137, [id number] ####[facility] [address] [place] [address] Basophils/Leukocytes Auto (Bld) [Pure # fraction] 0.0 E9/L Normal 0.0-0.2 [facility] Comment on above: Order Comment: Order Added by Discern Expert. Performed By: #### 2 985033, 5888996, 5459904, 1173683, [id number] ####[facility] [address] [place] [address] Eosinophils/100 WBC (Bld) 2.1 % Normal 0.0-8.0 [facility] Comment on above: Order Comment: Order Added by Discern Expert. Performed By: #### 2 520700, 2429983, 2962279, 3676018, [id number] ####[facility] [address] [place] [address] Eosinophils/Leukocytes Auto (Bld) [Pure # fraction] 0.2 E9/L Normal 0.0-0.5 [facility] Comment on above: Order Comment: Order Added by Discern Expert. Performed By: #### 2 602513, 4782664, 2785481, 4195102, [id number] ####[address] [place] [address] Lymphocytes/100 WBC (Bld) 20.5 % Normal 14.0-50.0 [facility] Comment on above: Order Comment: Order Added by Nellie Expert. Performed By: #### 2 056483, 4818000, 2564230, 2932452, [id number] ####[address] [place] [address] Lymphocytes/Leukocytes Auto (Bld) [Pure # fraction] 1.6 E9/L Normal 1.0-4.0 [facility] Comment on above: Order Comment: Order Added by Nellie Expert. Performed By: #### 2 061658, 8109327, 4734284, 9699115, [id number] ####[address] [address] Monocytes/100 WBC (Bld) 8.7 % Normal 4.0-14.0 [facility] Comment on above: Order Comment: Order Added by Nellie Expert. Performed By: #### 2 519387, 3087441, 1966290, 8936289, [id number] ####[address] [address] Monocytes/Leukocytes Auto (Bld) [Pure # fraction] 0.7 E9/L Normal 0.2-1.0 [facility] Comment on above: Order Comment: Order Added by Nellie Expert. Performed By: #### 2 619841, 5619691, 0442021, 4042704, 86572145 ####[address] [address] Neutrophils/100 WBC (Bld) 68.4 % Normal 36.0-75.0 [facility] Comment on above: Order Comment: Order Added by Nellie Expert. Performed By: #### 2 762128, 8205683, 1947676, 3801928, 05973286 ####[address] [place] [address] Neutrophils/Leukocytes Auto (Bld) [Pure # fraction] 5.3 E9/L Normal 2.0-7.5 [facility] Comment on above: Order Comment: Order Added by Discern Expert. Performed By: #### 2 588495, 4505276, 2932584, 1979362, [id number] ####[address] [address] CBC w/ Auto Diffon 3 Erythrocyte distribution width (RBC) [Ratio] 16.3 % High 10.9-14.2 [facility] Comment on above: Performed By: #### 2 317485, 5397407, 0659193, 6281880, [id number] ####[address] [address] Hematocrit (Bld) [Volume fraction] 43.7 % Normal 37.7-49.0 [facility] Comment on above: Performed By: #### 2 864767, 3750656, 9356744, 4537262, 10337296 ####[facility] [address] [place] [address] Hemoglobin (Bld) [Mass/Vol] 14.4 g/dL Normal 13.5-17.5 [facility] Comment on above: Performed By: #### 2 937893, 6202305, 8434883, 9534983, 55756459 ####[address] [address] MCH (RBC) [Entitic mass] 27.9 pg Normal 27.0-34.0 [facility] Comment on above: Performed By: #### 2 059595, 7019138, 6979093, 0695363, 39625034 ####[address] [address] MCHC (RBC) [Mass/Vol] 33.0 g/dL Normal 31.4-36.0 [facility] Comment on above: Performed By: #### 2 994794, 5870407, 7076312, 6609468, 98069165 ####[facility] [address] [place] [address] MCV (RBC) [Entitic vol] 84.8 fL Normal 80.0-100.0 [facility] Comment on above: Performed By: #### 2 448112, 5395437, 8502957, 9207493, 70707963 ####[facility] [address] [place] [address] Platelet mean volume (Bld) [Entitic vol] 7.7 fL Normal 6.4-10.8 [facility] Comment on above: Performed By: #### 2 807110, 2602607, 4873274, 1190417, 28315490 ####[address] [address] Platelets (Bld) [#/Vol] 278.0 E9/L Normal 150.0-500.0 [facility] Comment on above: Performed By: #### 2 435010, 6095310, 3512238, 9679403, 15499734 ####[address] [address] RBC (Bld) [#/Vol] 5.2 E12/L Normal 4.3-5.9 [facility] Comment on above: Performed By: #### 2 984999, 6719243, 1341494, 9597013, 95213024 ####[address] [place] [address] WBC corrected for nucl RBC Auto (Bld) [#/Vol] 7.7 E9/L Normal 4.0-11.0 [facility] Comment on above: Performed By: #### 2 947759, 7606955, 0208553, 3989135, 24659101 ####[address] [place] [address] CHEMISTRYOrdered By: SYSTEM SYSTEM on 03-19-2023 Cholesterol [Mass/Vol] 171 mg/dL Normal 120 - 200 mg/dL [facility] Remisol Cholesterol in HDL [Mass/Vol] 39 mg/dL [...] is a 47 year old presenting to [facility] care/physical Establish Care: History: Any previous diagnosis: [...] day(s), # 21 tab(s), Refills(s) 0, Pharmacy: [facility]/pharmacy #6177, 176.5, cm, 03/19/23 13:15:00 EDT, Height/Length Dosing phentermine, 37.5 mg = 1 tab(s), Oral, Daily, # 30 tab(s), Refills(s) 0, Pharmacy: [facility]/pharmacy #6177, 176.5, cm, 03/19/23 13:15:00 EDT, [...] day(s), # 21 tab(s), Refills(s) 0, Pharmacy: [facility]/pharmacy #6177, 176.5, cm, 03/19/23 13:15:00 EDT, Height/Length Dosing phentermine, 37.5 mg = 1 tab(s), Oral, Daily, # 30 tab(s), Refills(s) 0, [facility] 176.5, cm, 03/19/23 13:15:00 EDT, Height/Length Dosing CBC w/ Auto Diff Cologuard Screening Test Lipid Panel PSA Screen, Total Thyroid Stimulating Hormone 3. Non-smoker (Z78.9: Other specified health status) continue not smoking Ordered: methylPREDNISolone, = 1 packet(s), Oral, As Directed, as directed on package labeling, X 6 day(s), # 21 tab(s), Refills(s) 0, [facility], 176.5, cm, 03/19/23 13:15:00 EDT, Height/Length Dosing phentermine, 37.5 mg = 1 tab(s), Oral, Daily, # 30 tab(s), Refills(s) 0, [id number], 176.5, cm, 03/19/23 13:15:00 EDT, Height/Length Dosing CBC w/ Auto Diff Cologuard Screening Test Lipid Panel PSA Screen, Total Thyroid Stimulating Hormone 4. Left sciatic nerve pain (M54.32: Sciatica, left side) medrol dose pack sent Ordered: methylPREDNISolone, = 1 packet(s), Oral, As Directed, as directed on package labeling, X 6 day(s), # 21 tab(s), Refills(s) 0, [id number], 176.5, cm, 03/19/23 13:15:00 EDT, Height/Length Dosing phentermine, 37.5 mg = 1 tab(s), Oral, Daily, # 30 tab(s), Refills(s) 0, [id number], 176.5, cm, 03/19/23 13:15:00 EDT, Height/Length Dosing Colon cancer screening (Z12.11: (more content not included)... Normal [facility] Comment on above: Result Comment: Elec tronically Signed By: Torsten MONSIVAIS, Effie Sewell\.br\Date and Time Signed: 03/19/23 14:00 EDT Formson 03-19-2023 Forms [id number]:127 Normal [facility] HEMATOLOGYOrdered By: SYSTEM SYSTEM on 03-19-2023 [...] 33.0 g/dL Normal 31.4 - 36.0 gm/dL [facility] HemeAutoSS MCV (RBC) [Entitic vol] 84.8 fL Normal 80.0 - 100.0 fL FT HemeAutoSS Platelet mean volume (Bld) [Entitic vol] 7.7 fL Normal 6.4 - 10.8 fL [facility] HemeAutoSS Platelets (Bld) [#/Vol] 278.0 E9/L Normal 150.0 - 500.0 E9/L [facility] HemeAutoSS RBC (Bld) [#/Vol] 5.2 E12/L Normal 4.3 - 5.9 E12/L [facility] HemeAutoSS WBC corrected for nucl RBC Auto (Bld) [#/Vol] 7.7 E9/L Normal 4.0 - 11.0 E9/L [facility] HemeAutoSS Lipid Panelon 03-19-2023 Cholesterol [Mass/Vol] 171 mg/dL Normal 120-200 [facility] Comment on above: Performed By: #### 2 [id number], [id number], [id number], [id number], [id number] ####[facility] [id number] [place] [address] Cholesterol in HDL [Mass/Vol] 39 mg/dL Invalid Interpretation Code [facility] Comment on above: Result Comment: HDL > or equal to 60 mg/dL: Low cardiovascular risk HDL < 40 mg/dL : High cardiovascular risk Performed By: #### 2 [id number], [id number], [id number], [id number], [id number] ####[facility] [id number] [place] [address] Cholesterol in LDL [Mass/Vol] 112 mg/dL Normal <=129 [facility] Comment on above: Performed By: #### 2 [id number], [id number], [id number], [id number], [id number] ####[facility] [id number] [place] [address] Cholesterol in VLDL [Mass/Vol] 19 mg/dL Normal 7-40 [facility] Comment on above: Performed By: #### 2 [id number], [id number], [id number], [id number], [id number] ####[facility] [id number] [place] [address] Triglyceride [Mass/Vol] 94 mg/dL Normal <=149 [facility] Comment on above: Performed By: #### 2 [id number], [id number], 0995019, [id number], [id number] ####[facility] [address] [place] [address] PSA Screen, Totalon 03-19-20 23 Prostate specific Ag [Mass/Vol] 0.9 ng/mL Normal 0.1-3.5 [facility] Comment on above: Result Comment: The concentration of PSA determined by different manufacturers can vary due to differences in assay methods and reagent specificity. Values obtained from different assay methods cannot be used interchangeably. The methodology used for this result was chemiluminescence using [employer]'s Access Hy[employer]ite[employer] PSA reagent. Performed By: #### 2 [id number], [id number], 6456509, [id number], [id number] ####[facility] [address] [place] [address] TSHon 03-19-2023 TSH Qn 2.03 m[IU]/L Normal 0.34-5.60 [facility] Comment on above: Performed By: #### 2 [id number], 1505883, 6467994, [id number], [id number] ####[facility] [address] [place] [address] [facility]11 SARS-CoV-2 (COVID-19) RNA BETHANY+probe Ql (Unsp spec) Not detected Normal NOT DETECTED [facility] Comment on above: Result Comment: When [...] for this test is supported by the [place] of Health and Human Service's declaration that [...] used). Performed By: #### C VDTBH #### [facility] [address] [place] [address] Dr. Mynor Yun GROUP A STREP CULTUREon 07-11 S. pyogenes Ag Ql (Unsp spec) Culture Observations: NEGATIVE FOR GROUP A STREPTOCOCCUS. Normal [facility] Comment on above: Performed By: #### G RASTCX #### [facility] [address] [place] [address] Dr. Mynor Yun INFLUENZA A AND B AGon 07-[facility] Normal [facility] Comment on above: Result Comment: Nega tive for Flu A protein angiten. Infection due to Flu A cannot be ruled out. Flu A angiten in the sample may be below the detection limit of the test. Performed By: #### I NFLUAB #### [facility] [address] [place] [address] Dr. Mynor Yun INFLUBNEGH SEE BELOW Normal [facility] Comment on above: Result Comment: Nega tive for Flu B protein antigen. Infection due to Flu B cannot be ruled out. Flu B antigen in the sample may be below the detection limit of the test. Performed By: #### I NFLUAB #### [facility] [address] [place] [address] Dr. Mynor Yun INFLUENZA A AG Negative Normal NEGATIVE SEE COMMENT [facility] Comment on above: Performed By: #### I NFLUAB #### [facility] [address] [place] [address] Dr. Mynor Yun INFLUENZA B AG Negative Normal NEGATIVE SEE COMMENT [facility] Comment on above: Performed By: #### I NFLUAB #### [facility] [address] [place] [address] Dr. Mynor Yun INTERNAL CONTROLS Within Normal Limits Normal Wi thin Normal Limits [facility] Comment on above: Performed By: #### I NFLUAB #### [facility] [address] [place] [address] Dr. Mynor Yun STREPT SCREENon 07-28-2022 STREP SCREEN A Negative Normal NEGATIVE [facility] Comment on above: Performed By: #### S SCRN #### [facility] [address] [place] [address] Dr. Mynor Yun XR SINUSES 3 VIEWS [...] by: KELLIE SMALLS Date: 2022-02-01 09:58 Normal [facility] HAND LEFT 3 [facility] 12-29-2021 HAND LEFT 3 [facility] Department of Radiology [address] [place] [id number] Patient Name: RAKESH PIÑA : 1975 [...] alignment. Electronically signed: Edgardo Montana. Transcribed by: [email or web address], User Resident: Electronically Signed by: EDGARDO MONTANA @ 12/31/2021 08:55 AM Normal [facility] Comment on above: Order Comment: Evalu ate HAND LEFT 3 VWSon 12-08-2021 HAND LEFT 3 [facility] Department of Radiology [address] [place] [id number] Patient Name: RAKESH PIÑA : 1975 Sex: M Age: Race: White Pt. Location: 86 Patient Status: D Ordered Date: 12/08/2021 1:25:00 PM Completed Date: 12/08/2021 01:29 PM Requesting Provider: LORI DALLAS Attending Provider: LORI DALLAS Report Copy To: Signs & Symptoms: M79.642 Pain in left hand I10 History: [place] Comments: Evaluate Exam: HAND LEFT 3 VWS [...] bridging. Electronically signed: Ronaldo Major. Transcribed by: [email or web address], User Resident: Electronically Signed by: RONALDO MAJOR @ 12/09/2021 04:04 PM Normal [facility] Comment on above: Order Comment: Evalu ate HAND LEFT 3 Son 11-14-2021 HAND LEFT 3 [facility] Department of Radiology [address] [place] [id number] Patient Name: RAKESH PIÑA : 1975 [...] fracture. Electronically signed: Timo Smith. Transcribed by: [email or web address], User Resident: Electronically Signed by: TIMO SMITH @ 11/14/2021 08:02 PM Normal [facility] Comment on above: Order Comment: Views (X-RAY, HAND): PA, Lateral, Oblique TESTOSTERONE, TOTALon 2021 Testosterone [Mass/Vol] 411 ng/dL Normal 264-916 [facility] Comment on above: Result Comment: Adul t male reference interval is based on a population of healthy nonobese males (BMI <30) between 19 and 39 years old. Iron et.al. JCEM 2017,102;7672-7323. PMID: [id number]. Performed By: #### T ESTTOT #### [facility] [address] [place], [place] [address] Dr. Mynor Yun CBC AUTO DIFFon 11-11-2021 BASO # 0.0 103/ul Normal 0.0-0.1 [facility] Comment on above: Performed By: #### C BC #### [facility] [address] [place], [place] [address] Dr. Mynor Yun Basophils/100 WBC (Bld) 0.2 % Normal 0.2-2.0 [facility] Comment on above: Performed By: #### C BC #### [facility] [address] [place] [address] Dr. Mynor Yun EO # 0.1 103/ul Normal 0.0-0.7 [facility] Comment on above: Performed By: #### C BC #### [facility] [address] [place] [address] Dr. Mynor Yun Eosinophils/100 WBC (Bld) 1.2 % Normal 0.9-7.0 [facility] Comment on above: Performed By: #### C BC #### [facility] [address] [place] [address] Dr. Mynor Yun Erythrocyte distribution width (RBC) [Ratio] 14.3 % Normal 11.0-15.0 [facility] Comment on above: Performed By: #### C BC #### [facility] [address] [place] [address] Dr. Mynor Yun Hematocrit (Bld) [Volume fraction] 47.3 % Normal 42.0-54.0 [facility] Comment on above: Performed By: #### C BC #### [facility] [address] [place] [address] Dr. Mynor Yun Hemoglobin (Bld) [Mass/Vol] 15.2 g/dL Normal 14.0-18.0 [facility] Comment on above: Performed By: #### C BC #### [facility] [address] [place] [address] Dr. Mynor Yun IG # 0.03 10e3/ul Normal 0.00-0.03 [facility] Comment on above: Performed By: #### C BC #### [facility] [address] [place] [address] Dr. Mynor Yun IG % 0.3 % Normal 0.0-0.5 [facility] Comment on above: Performed By: #### C BC #### [facility] [address] [place] [address] Dr. Mynor Yun LYMPH # 1.6 103/ul Normal 1.2-3.8 [facility] Comment on above: Performed By: #### C BC #### [facility] [address] [place] [address] Dr. Mynor Yun Lymphocytes/100 WBC (Bld) 18.4 % Critically low 20.5-60.0 [facility] Comment on above: Performed By: #### C BC #### [facility] [address] [place] [address] Dr. Mynor Yun MANUAL DIFF REQ NO Normal [facility] Comment on above: Performed By: #### C BC #### [facility] [address] [place] [address] Dr. Mynor Yun MCH (RBC) [Entitic mass] 28.8 pg Normal 25.9-34.0 [facility] Comment on above: Performed By: #### C BC #### [facility] [address] [place] [address] Dr. Mynor Yun MCHC (RBC) [Mass/Vol] 32.1 g/dL Normal 29.9-35.2 [facility] Comment on above: Performed By: #### C BC #### [facility] [address] [place] [address] Dr. Mynor Yun MCV (RBC) [Entitic vol] 89.8 fL Normal 80.0-94.0 [facility] Comment on above: Performed By: #### C BC #### [facility] [address] [place] [address] Dr. Mynor Yun MONO # 0.7 103/ul Normal 0.3-0.8 [facility] Comment on above: Performed By: #### C BC #### [facility] [address] [place] [address] Dr. Mnyor Yun Monocytes/100 WBC (Bld) 8.4 % Normal 1.7-12.0 [facility] Comment on above: Performed By: #### C BC #### [facility] [address] [place] [address] Dr. Mynor Yun NEUT # 6.2 103/ul Normal 1.4-6.5 [facility] Comment on above: Performed By: #### C BC #### [facility] [address] [place] [address] [address] Mynor Yun Neutrophils/100 WBC (Bld) 71.5 % Normal 43.0-75.0 [facility] Comment on above: Performed By: #### C BC #### [facility] [address] [place] [address] [address] Mynor Yun Platelet mean volume (Bld) [Entitic vol] 8.7 fL Critically low 9.5-13.5 [facility] Comment on above: Performed By: #### C BC #### [facility] [address] [place] [address] Dr. Mynor Yun PLT 263 103/ul Normal 150-450 [facility] Comment on above: Performed By: #### C BC #### [facility] [address] [place] [address] Dr. Mynor Yun RBC 5.27 106/ul Normal 4.70-6.10 [facility] Comment on above: Performed By: #### C BC #### [facility] [address] [place] [address] Dr. Mynor Yun WBC 8.7 103/ul Normal 4.0-11.0 [facility] Comment on above: Performed By: #### C BC #### [facility] [address] [place] [address] Dr. Mynor Yun LIPID PROFILEon 11-11-2021 CHOL-HDL RATIO NORM SEE BELOW Normal [facility] Comment on above: Result Comment: 3.3 - 4.4 LOW RISK 4.4 - 7.1 AVERAGE RISK 7.1 - 11.0 MODERATE RISK >11.0 HIGH RISK Performed By: #### S SCRN #### [facility] [address] [place] [address] Dr. Mynor Yun Cholesterol [Mass/Vol] 129 mg/dL Normal <=200 [facility] Comment on above: Performed By: #### S SCRN #### [facility] [address] [place] [address] Dr. Mynor Yun Cholesterol in HDL [Mass/Vol] 34 mg/dL Normal [facility] Comment on above: Performed By: #### S SCRN #### [facility] [address] [place] [address] [address] Mynor Yun Cholesterol in LDL [Mass/Vol] 82.2 mg/dL Normal [facility] Comment on above: Performed By: #### S SCRN #### [facility] [address] [place] [address] [address] Mynor Yun Cholesterol.total/Chol esterol in HDL [Mass ratio] 3.8 {ratio} Normal [facility] Comment on above: Performed By: #### S SCRN #### [facility] [address] [place] [address] [address] Mynor Yun HDL NORMAL > or = 60 mg/dl - LO W CARDIOVASCULAR RISK <40 mg/dl - HIGH CARDIOVASCULAR RISK Normal [facility] Comment on above: Performed By: #### S SCRN #### [facility] [address] [place] [address] [address] Mynor Yun LDL CALC NORMAL SEE BELOW Normal [facility] Comment on above: Result Comment: <100 mg/dl OPTIMAL 100 - 129 mg/dl NEAR OR ABOVE OPTIMAL 130 - 159 mg/dl BORDERLINE HIGH 160 - 189 mg/dl HIGH >190 mg/dl VERY HIGH Performed By: #### S SCRN #### [facility] [address] [place] [address] [address] Mynor Yun Triglyceride [Mass/Vol] 64 mg/dL Normal <=150 [facility] Comment on above: Performed By: #### S SCRN #### [facility] [address] [place] [address] [address] Mynor Yun VLDL CALC 12.8 mg/dL Normal [facility] Comment on above: Performed By: #### S SCRN #### [facility] [address] [place] [address] [address] Mynor Yun PROF 14(COMP METB)on 022 Albumin [Mass/Vol] 3.8 g/dL Normal 3.5-5.0 [facility] Comment on above: Performed By: #### T SH, LIPID, CMP #### [facility] [address] [place] [address] [address] Mynor Yun Albumin/Globulin [Mass ratio] 0.9 {ratio} Normal [facility] Comment on above: Performed By: #### T SH, LIPID, CMP #### [facility] [address] [place] [address] [address] Mynor Yun ALP [Catalytic activity/Vol] 76 U/L Normal 38-126 [facility] Comment on above: Performed By: #### T SH, LIPID, CMP #### [facility] [address] [place] [address] [address] Mynor Yun ALT [Catalytic activity/Vol] 49 U/L Normal 21-72 [facility] Comment on above: Performed By: #### T SAMARIA, LIPID, CMP #### [facility] [address] [place] [address] [address] Mynor Yun Anion gap [Moles/Vol] 11.2 mmol/L Normal [facility] Comment on above: Performed By: #### T SAMARIA, LIPID, CMP #### [facility] [address] [place] [address] [address] Mynor Yun AST [Catalytic activity/Vol] 31 U/L Normal 17-59 [facility] Comment on above: Performed By: #### T SAMARIA, LIPID, CMP #### [facility] [address] [place] [address] [address] Mynor Yun Bilirubin [Mass/Vol] 0.5 mg/dL Normal 0.2-1.3 [facility] Comment on above: Performed By: #### T SAMARIA, LIPID, CMP #### [facility] [address] [place] [address] [address] Mynor Yun Calcium [Mass/Vol] 9.0 mg/dL Normal 8.4-10.2 [facility] Comment on above: Performed By: #### T SH, LIPID, CMP #### [facility] [address] [place] [address] [address] Mynor Yun Chloride [Moles/Vol] 104 mmol/L Normal 98-107 [facility] Comment on above: Performed By: #### T SH, LIPID, CMP #### [facility] [address] [place] [address] [address] Mynor Yun CO2 [Moles/Vol] 30.6 mmol/L Critically high 22.0-30.0 [facility] Comment on above: Performed By: #### T SH, LIPID, CMP #### [facility] [address] [place] [address] [address] Mynor Yun Creatinine [Mass/Vol] 0.95 mg/dL Normal 0.66-1.25 [facility] Comment on above: Performed By: #### T SH, LIPID, CMP #### [facility] [address] [place] [address] [address] Mynor Yun EGFR-AF ANGOLAN >60 Normal >=60 [facility] Comment on above: Performed By: #### T SH, LIPID, CMP #### [facility] [address] [place] [address] [address] Mynor Yun EGFR-NON AF ANGOLAN >60 Normal >=60 [facility] Comment on above: Performed By: #### T SH, LIPID, CMP #### [facility] [address] [place] [address] [address] Mynor Yun Globulin (S) [Mass/Vol] 4.3 g/dL Normal [facility] Comment on above: Performed By: #### T SH, LIPID, CMP #### [facility] [address] [place] [address] [address] Mynor Yun Glucose [Mass/Vol] 104 mg/dL Normal 74-106 [facility] Comment on above: Performed By: #### T SH, LIPID, CMP #### [facility] [address] [place] [address] [address] Mynor Yun Potassium [Moles/Vol] 3.8 mmol/L Normal 3.4-5.0 [facility] Comment on above: Performed By: #### T SH, LIPID, CMP #### [facility] [address] [place] [address] [address] Mynor Yun Protein [Mass/Vol] 8.1 g/dL Normal 6.1-8.2 [facility] Comment on above: Performed By: #### T SH, LIPID, CMP #### [facility] [address] [place] [address] [address] Mynor Yun Sodium [Moles/Vol] 142 mmol/L Normal 137-145 [facility] Comment on above: Performed By: #### T SH, LIPID, CMP #### [facility] [address] [place] [address] [address] Mynor Yun Urea nitrogen [Mass/Vol] 11.0 mg/dL Normal 9.0-20.0 [facility] Comment on above: Performed By: #### T SH, LIPID, CMP #### [facility] [address] [place] [address] Dr. Mynor Yun Urea nitrogen/Creatinine [Mass ratio] 11.6 mg/mg Normal [facility] Comment on above: Performed By: #### T SH, LIPID, CMP #### [facility] [address] [place] [address] Dr. Mynor Yun TSHon 11-11-2021 TSH 1.612 uIU/mL Normal 0.470-4.680 [facility] Comment on above: Performed By: #### T SH, LIPID, CMP #### [facility] [address] [place] [address] Dr. Mynor Yun TSH RANGE SEE BELOW Normal [facility] Comment on above: Result Comment: <0.3 4 UIU/ml HYPERTHYROID 0.34-5.60 UIU/ml EUTHYROID >5.60 UIU/ml HYPOTHYROID Performed By: #### T SH, LIPID, CMP #### [facility] [address] [place] [address] Dr. Mynor Yun Vital Signs Date Time Vital Sign Value Performing Clinician Facility 03-19-2025 11:42-0400 Body height 175.26 cm Effie Sarmiento NP-C Work Phone: [facility] 03-19-2025 11:42-0400 Diastolic blood pressure 83 mm[Hg] Effie Sarmiento REGULATORY TECHNICIAN-C Work Phone: [facility] 03-19-2025 11:42-0400 Heart rate 79 /min Effie Torsten REGULATORY TECHNICIAN-C Work Phone: [facility] 03-19-2025 11:42-0400 Respiratory rate 12 /min Effie Torsten REGULATORY TECHNICIAN-C Work Phone: [facility] 03-19-2025 11:42-0400 Systolic blood pressure 136 mm[Hg] Effie Torsten REGULATORY TECHNICIAN-C Work Phone: [facility] 02-10-2025 10:00-0400 Body mass index (BMI) [Ratio] 56.85 kg/m2 Iris ALBARRAN [facility] 02-10-2025 10:00-0400 Body weight 174.63 kg [facility] 01-23-2025 09:34-0400 Body height 175.3 cm Nury Potter MD Work Phone: [facility] 01-23-2025 09:34-0400 Body mass index (BMI) [Ratio] 56.88 kg/m2 Nury Potter MD Work Phone: [facility] 01-23-2025 09:34-0400 Body weight 174.73 kg Nury Potter MD Work Phone: [facility] 01-23-2025 09:34-0400 Diastolic blood pressure 108 mm[Hg] Nury Potter MD Work Phone: [facility] 01-23-2025 09:34-0400 Systolic blood pressure 179 mm[Hg] Nury Potter MD Work Phone: [facility] 01-08-2025 09:00-0400 Body mass index (BMI) [Ratio] 55.17 kg/m2 Iris ALBARRAN [facility] 01-08-2025 09:00-0400 Body weight 176.9 kg [facility]ris [facility]ARRAN [facility] 12-09-2024 09:00-0400 Body height 179.1 cm [facility] 11-28-2024 09:48-0400 Body height 179.1 cm Nury Potter MD Work Phone: [facility] 11-28-2024 09:48-0400 Body mass index (BMI) [Ratio] 55.17 kg/m2 Nury Potter MD Work Phone: [facility] 11-28-2024 09:48-0400 Body weight 176.9 kg Nury Potter MD Work Phone: [facility] 11-05-2024 10:17-0500 Body height 175.3 cm Pedro Rusher DPM Work Phone: [facility] 11-05-2024 10:17-0500 Body mass index (BMI) [Ratio] 55.38 kg/m2 Pedro Rusher DPM Work Phone: [facility] 11-05-2024 10:17-0500 Body weight 170.1 kg Pedro Rusher DPM Work Phone: [facility] 10-08-2024 10:31-0500 Body height 175.3 cm Pedro Rusher DPM Work Phone: [facility] 10-08-2024 10:31-0500 Body mass index (BMI) [Ratio] 55.38 kg/m2 Pedro Rusher DPM Work Phone: [facility] 10-08-2024 10:31-0500 Body weight 170.1 kg Pedro Rusher DPM Work Phone: [facility] Healthcare Encounters Encounter Date Encounter Type Care Provider Facility Start: 03-19-2025 End: 03-19-2025 ambulatory Effie Sarmiento REGULATORY TECHNICIAN-C Work Phone: [facility] Work Phone: Start: 03-19-2025 End: 03-19-2025 Patient encounter procedure Jose Carlos Whitt DO [facility] Work Phone: Start: 03-16-2025 End: 03-16-2025 Orders Only Nury Potter MD Work Phone: [facility] General Surgery-Bariatric Comment on above: Low 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 Start: 02-10-2025 End: 02-10-2025 Telemedicine consultation with patient Iris Quinn DEION [facility] Comment on above: Dietary counseling a nd surveillance (Primary Dx); Morbid obesity (CMS-HCC) Start: 02-10-2025 End: 02-10-2025 [facility] Start: 01-23-2025 End: 01-23-2025 Office outpatient visit 25 minutes Nury Potter MD Work Phone: [facility] General Surgery Comment on above: Insulin resistance ( Primary Dx); Morbid obesity (CMS-HCC); Low 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 Start: 01-23-2025 End: 01-23-2025 [facility] Start: 01-08-2025 End: 01-08-2025 [facility] Start: 01-08-2025 End: 01-08-2025 Telemedicine consultation with patient [facility]ris [facility] [facility] Comment on above: Dietary counseling a nd surveillance (Primary Dx); Morbid obesity ([facility]); History of sleeve gastrectomy Start: 12-29-2024 End: 12-29-2024 ambulatory Wilbert Buckner MD Facility:[facility] Start: 12-09-2024 End: 12-09-2024 Telemedicine consultation with patient Iris Quinn DEION [facility] Comment on above: Dietary counseling a nd surveillance (Primary Dx); Morbid obesity ([facility]); History of sleeve gastrectomy Start: 12-09-2024 End: 12-09-2024 [facility] Start: 12-01-2024 End: 12-01-2024 [facility] Start: 11-28-2024 End: 11-28-2024 Office outpatient new 45 minutes Nury Potter MD Work Phone: [facility] General Surgery Comment on above: History of sleeve ga strectomy (Primary Dx); Morbid obesity with BMI of 50.0-59.9, adult ([facility]) Start: 11-28-2024 End: 11-28-2024 ambulatory [facility] Start: 11-26-2024 End: 11-26-2024 ambulatory PEDRO Melissa UMER Not Available Start: 11-05-2024 End: 11-05-2024 Bamboo flowsheet Pedro Conte DPM Work Phone: [facility] Start: 11-05-2024 End: 11-05-2024 Bamboo flowsheet Pedro Conte DPM Work Phone: [facility] Start: 11-05-2024 End: 11-05-2024 ambulatory PEDRO CONTE Not Available Start: 11-05-2024 End: 11-05-2024 Postop follow up visit related to original px Pedro Conte DPM Work Phone: [facility] Comment on above: Valgus deformity, no t elsewhere classified, right ankle (Primary Dx); Valgus deformity, not elsewhere classified, left ankle; Instability of left foot joint; Instability of right foot joint; Leg length discrepancy; Posterior tibial tendon dysfunction, bilateral Start: 10-08-2024 End: 10-08-2024 Bamboo flowsheet Pedro Conte DPM Work Phone: [facility] Start: 10-08-2024 End: 10-08-2024 Bamboo flowsheet Pedro Conte DPM Work Phone: [facility] Start: 10-08-2024 End: 10-30-2024 Telephone encounter Emily Kaur MA [facility] Comment on above: Foot Orth[facility] Start: 10-08-2024 End: 10-08-2024 Office outpatient new 30 minutes Pedro Conte DPM Work Phone: [facility] Comment on above: Valgus deformity, no t elsewhere classified, right ankle (Primary Dx); Valgus deformity, not elsewhere classified, left ankle; Instability of left foot joint; Instability of right foot joint; Leg length discrepancy Start: 10-08-2024 End: 10-08-2024 ambulatory PEDRO CONTE Not Available Start: 09-01-2024 End: 09-01-2024 ambulatory Wilbert Buckner MD Facility: [facility] Start: 07-21-2024 End: 07-21-2024 ambulatory Andcory Buckner MD Facility: [facility] Start: 06-30-2024 End: 06-30-2024 ambulatory Andcory Buckner MD Facility: [facility] Start: 03-10-2024 End: 03-10-2024 ambulatory Wilbert Buckner MD Facility: [facility] Start: 02-25-2024 End: 02-25-2024 ambulatory Wilbert Valenciaitis Facility: [facility] Start: 02-18-2024 End: 02-18-2024 ambulatory Wilbert Buckner MD Facility: [facility] Start: 01-23-2024 End: 01-26-2024 ambulatory EFFIE TORSTEN [facility] Start: 01-16-2024 End: 01-16-2024 ambulatory Effie L Torsten Facility:[facility] Start: 01-14-2024 End: 01-14-2024 ambulatory Effie L Torsten Facility:[facility] Start: 01-09-2024 End: 01-09-2024 ambulatory Effie L Torsten Facility:[facility] Start: 08-23-2023 End: 08-23-2023 Lab Drop off Effie L Torsten [facility] Start: 08-23-2023 End: 08-23-2023 ambulatory Efife L Torsten Facility:[facility] Start: 07-26-2023 End: 07-26-2023 ambulatory Effie L Torsten Facility:[facility] Start: 06-21-2023 End: 06-21-2023 ambulatory Effie L Torsten Facility:[facility] Start: 05-22-2023 End: 05-22-2023 ambulatory [facility] Start: 04-24-2023 End: 04-24-2023 ambulatory Effie L Torsten Facility:[facility] Start: 03-19-2023 End: 03-19-2023 ambulatory Effie L Torsten Facility:[facility] Start: 03-19-2023 End: 03-19-2023 Lab Drop off Effie L Torsten [facility] Start: 03-19-2023 End: 03-19-2023 ambulatory Effie L Torsten Facility:[facility] Start: 03-15-2023 ambulatory Effie Torsten Facility:[facility] Start: 07-28-2022 End: 07-28-[address] LULU BLANK Facility:[facility] Start: 02-01-2022 End: 02-02-[address] LLUU BLANK Facility:[facility] Start: 11-15-2021 Encounter for genera l adult medical examination without abnormal findings DR LULU BLANK [facility] Start: 11-11-2021 End: 11-12-[address] LULU BLANK Facility:[facility] Start: 11-11-2021 End: 11-12-2021 Encounter for general adult medical examination without abnormal findings DR LULU BLANK Facility:[facility] Start: 11-10-2021 End: 11-11-2021 ambulatory MAZIN CANO Facility:[facility] Procedures Date Procedure Procedure Detail Performing Clinician Start: 01-08-2025 Follow-up visit Follow-up DUONG QUINN Gastric sleeve Effie Torsten Comment on above: 2009 Plan of Treatment Date Care Activity Detail Author Start: 02-10-2026 Adult [facility]ening [facility] Start: 01-23-2026 Adult BMI Screening [facility] Start: 01-23-2026 Tobacco Screening Tobacco Screening [facility] Start: 01-08-2026 Adult BMI Screening Adult BMI Screen ing [facility] Gewara [facility] Start: 12-09-2025 Adult BMI Follow Up Plan Adult BMI Follow Up Plan [facility] Start: 11-28-2025 Adult BMI Screening Adult BMI Screen ing [facility] Start: 05-11-2025 Influenza vaccination Influenza Vacc ine [facility] Start: 04-25-2025 End: 01-23-2026 Basic metabolic 2000 panel - Serum or Plasma Basic Metabolic Panel Lab Routine Insulin resistance Expected: 04/25/2025 (Approximate), Expires: 01/23/2026 [facility] Comment on above: Expected: 04/25/2025 (Approximate), Expires: 01/23/2026 Start: 04-25-2025 End: 01-23-2026 Insulin, Free and Total, Serum Insulin, Free and Total, Serum Lab Routine Insulin resistance Expected: 04/25/2025 (Approximate), Expires: 01/23/2026 [facility] Comment on above: Expected: 04/25/2025 (Approximate), Expires: 01/23/2026 Start: 04-25-2025 End: 01-23-2026 Testosterone, Total and Free, S Testosterone, Total and Free, S Lab Routine Low 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 Expected: 04/25/2025 (Approximate), Expires: 01/23/2026 [facility] Work Phone: Comment on above: Expected: 04/25/2025 (Approximate), Expires: 01/23/2026 Start: 04-24-2025 End: 04-24-2025 Patient encounter procedure 04/24/2025 10:00 AM EDT Office Visit [facility] General Surgery [facility] [place] [phone] Nury Potter MD [address] [place] [address] [facility] General Surgery Start: 02-10-2025 End: 02-10-2025 Telemedicine consultation with patient 02/10/2025 10:00 AM EDT Telemedicine [facility] [address] [phone] Iris Quinn LD [facility] Start: 01-23-2025 End: 01-23-2025 Patient encounter procedure 01/23/2025 9:30 AM EDT Office Visit [facility] [address] [place] [phone] Nury Potter MD [address] [place] [address] [facility] Start: 01-08-2025 End: 01-08-2025 Telemedicine consultation with patient 01/08/2025 9:00 AM EDT Telemedicine [facility] [address] [place] [phone] Irsi Quinn LD [facility] Start: 12-09-2024 End: 12-09-2024 Telemedicine consultation with patient 12/09/2024 9:00 AM EDT Telemedicine [facility] [address] [place] [phone] Iris Quinn LD [facility] Start: 11-11-2024 End: 11-11-2024 Patient encounter procedure 11/11/2024 4:45 PM EST Office Visit LEANDRO JIMENEZ [address] [facility] [address] [place] [address] Lanny Guthrie DO [address] [place] [address] LEANDRO AYALAUE Start: 11-05-2024 End: 11-05-2024 Patient encounter procedure 11/05/2024 10:00 AM EST Office Visit [facility] [address] [place] [phone] Pedro Conte, DPStephanie [address] [place], [place] [phone] [facility] Start: 10-08-2024 End: 10-08-2024 Patient encounter procedure 10/08/2024 10:45 AM EST Office Visit [facility] [address] [place] [address] Pedro Conte, DPStephanie [address] [place] [address] Arrived [facility] Comment on above: Arrived Start: 05-11-2024 COVID-19 Vaccine ( season) COVID-19 Vaccine ( season) [facility] Start: 1996 DTaP,Tdap and Td Vac cines (1 - Tdap) DTaP,Tdap and Td Vaccines (1 - Tdap) [facility] Start: 1995 Adult BMI Follow Up Plan Adult BMI Follow Up Plan [facility] Start: 1989 Depression Screening Depression Scre ening [facility] Start: 1989 Tobacco Screening Tobacco Screening [facility] Start: 1977 Screening for malign ant neoplasm of colon [facility] End: 11-28-2025 CBC W Auto Differential panel - Blood CBC auto differential Lab Routine History of sleeve gastrectomy 1 Occurrences starting 11/28/2024 until 11/28/2025 [employer] Work Phone: Comment on above: 1 Occurrences starti ng 11/28/2024 until 11/28/2025 End: 03-16-2026 CBC W Auto Differential panel - Blood CBC auto differential Lab Routine Low 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 1 Occurrences starting 03/16/2025 until 03/16/2026 [employer] Work Phone: Comment on above: 1 Occurrences starti ng 03/16/2025 until 03/16/2026 End: 11-28-2025 Cyanocobalamin vitamin b-12 Vitamin B12 Lab Routine History of sleeve gastrectomy 1 Occurrences starting 11/28/2024 until 11/28/2025 [facility] on above: 1 Occurrences starti ng 11/28/2024 until 11/28/2025 End: 11-28-2025 Hemoglobin A1c/Hemoglobin.total in Blood Hemoglobin A1c Lab Routine History of sleeve gastrectomy 1 Occurrences starting 11/28/2024 until 11/28/2025 [facility] Comment on above: 1 Occurrences starti ng 11/28/2024 until 11/28/2025 End: 11-28-2025 Insulin, Free and Total, Serum Insulin, Free and Total, Serum Lab Routine History of sleeve gastrectomy 1 Occurrences starting 11/28/2024 until 11/28/2025 [facility] [employer] [facility] Comment on above: 1 Occurrences starti ng 11/28/2024 until 11/28/2025 End: 11-28-2025 Iron [Mass/volume] in Serum or Plasma Iron Lab Routine History of sleeve gastrectomy 1 Occurrences starting 11/28/2024 until 11/28/2025 [facility] Comment on above: 1 Occurrences starti ng 11/28/2024 until 11/28/2025 End: 11-28-2025 Liver panel Liver panel Lab Routine History of sleeve gastrectomy 1 Occurrences starting 11/28/2024 until 11/28/2025 [facility] Comment on above: 1 Occurrences starti ng 11/28/2024 until 11/28/2025 End: 11-28-2025 Parathyroid Hormone, intact Parathyroid Hormone, intact Lab Routine History of sleeve gastrectomy 1 Occurrences starting 11/28/2024 until 11/28/2025 [facility] Comment on above: 1 Occurrences starti ng 11/28/2024 until 11/28/2025 End: 03-16-2026 PSA w/ RFLX to Free PSA PSA w/ RFLX to Free PSA Lab Routine Low 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 1 Occurrences starting 03/16/2025 until 03/16/2026 [facility] Comment on above: 1 Occurrences starti ng 03/16/2025 until 03/16/2026 End: 11-28-2025 Testosterone, Total and Free, S Testosterone, Total and Free, S Lab Routine History of sleeve gastrectomy 1 Occurrences starting 11/28/2024 until 11/28/2025 [facility] Comment on above: 1 Occurrences starti ng 11/28/2024 until 11/28/2025 End: 11-28-2025 Thyrotropin [Units/volume] in Serum or Plasma TSH Lab Routine History of sleeve gastrectomy 1 Occurrences starting 11/28/2024 until 11/28/2025 [facility] Comment on above: 1 Occurrences starti ng 11/28/2024 until 11/28/2025 End: 11-28-2025 Vitamin D 25 hydroxy Vitamin D 25 hydroxy Lab Routine History of sleeve gastrectomy 1 Occurrences starting 11/28/2024 until 11/28/2025 [facility] Comment on above: 1 Occurrences starti ng 11/28/2024 until 11/28/2025 Immunizations Immunization Date Immunization Notes Care Provider Chandni cardoza 07-08-2024 influenza, seasonal, injectable, preservative free Pedro Rusher DPM Work Phone: [facility] 07-08-2024 influenza virus vacc ine, unspecified formulation Iris ALBARRAN [facility] 05-31-2023 influenza virus vacc ine, unspecified formulation Effie Torsten [facility] 05-31-2023 influenza, injectabl e, quadrivalent, preservative free Pedro Rusher DPM Work Phone: [facility] 06-07-2022 influenza virus vacc ine, unspecified formulation Effie Torsten [facility] 06-07-2022 influenza, injectabl e, quadrivalent, preservative free Pedro Rusher DPM Work Phone: [facility] 11-12-2020 SARS-CoV-2 (COVID-19 ) mRNA BNT-162b2 vax Effie Torsten [facility] 10-22-2020 SARS-CoV-2 (COVID-19 ) mRNA BNT-162b2 vax Effie Torsten [facility] 03-10-2019 pneumococcal polysaccharide vaccine, 23 valent Effie Torsten [facility] 08-18-2009 novel influenza-H1N1 -09, preservative-free, injectable Pedro Rusher DPM Work Phone: [facility] Healthcare Payers Date Payer Category Payer Unknown 2022 [facility] BCBS [id number] 2022 [employer] Managed [employer] - O [id number] 2022 Unknown [id number] 2019 Unknown [id number] 2013 Medicare 1977 Unknown [id number] 2.16.840.1.407843.3.579.2. 593 1977 Unknown [id number] 2.16.840.1.312044.3.579.2. 593 1977 Unknown [id number] 2.16.840.1.535424.3.579.2. 593 1977 Unknown [id number] 2.16.840.1.259753.3.579.2. 593 1977 Unknown [id number] 2.16.840.1.590160.3.579.2. 182 1977 Unknown [id number] 2.16.840.1.589072.3.579.2. 182 1977 Unknown [id number] 2.16.840.1.479432.3.579.2. 727 1977 Unknown [id number] 2.16.840.1.685113.3.579.2. 727 1977 Unknown [id number] 2.16.840.1.984011.3.579.2. 727 1977 Unknown [id number] 2.16.840.1.928854.3.579.2. 1977 Unknown [id number] 2.16.840.1.064463.3.579.2. 1977 Unknown [id number] 2.16.840.1.872852.3.579.2. 1977 Unknown [id number] 2.16.840.1.466752.3.579.2. 1977 Unknown [id number] 2.16.840.1.509930.3.579.2. 1977 Unknown [id number] 2.16.840.1.845264.3.579.2. 1977 Unknown [id number] 2.16.840.1.001893.3.579.2. 1977 Unknown [id number] 2.16.840.1.623341.3.579.2. 1977 Unknown [id number] 2.16.840.1.801431.3.579.2. 1258 1977 Unknown [id number] 2.16.840.1.852710.3.579.2. 9 1977 Unknown [id number] 2.16.840.1.475214.3.579.2. 1258 1977 Unknown [id number] 2.16.840.1.210623.3.579.2. 1286 1977 Unknown [id number] 2.16.840.1.862896.3.579.2. 1977 Unknown [id number] 2.16.840.1.309072.3.579.2. 1977 Unknown [id number] 2.16.840.1.997928.3.579.2. 1977 Unknown [id number] 2.16.840.1.326663.3.579.2. 196 1977 Unknown [id number] 2.16.840.1.162802.3.579.2. 196 1977 Unknown [id number] 2.16.840.1.862356.3.579.2. 196 1977 Unknown [id number] 2.16.840.1.119363.3.579.2. 196 1977 Unknown [id number] 2.16.840.1.038971.3.579.2. 1286 1977 Unknown [id number] 2.16.840.1.709778.3.579.2. 1286 1977 Unknown [id number] 2.16.840.1.471279.3.579.2. 1286 1977 Unknown [id number] 2.16.840.1.992908.3.579.2. 1286 1977 Unknown [id number] 2.16.840.1.359959.3.579.2. 1286 1959 Medicare [id number] 1959 Unknown [id number] Medicaid Medicaid [id number] Social History Date Type Detail Facility Start: 03-19-2023 End: 01-23-2025 Tobacco smoking status Ex-smoker (finding) [facility] Tobacco smoking status Never Miguel [facility]ngel Diop [facility] Start: 02-19-2019 End: 04-11-2023 Sex Assigned At Male Lul [facility]chav[facility] Start: 04-05-2023 [facility] tobacco [facility] Start: 04-05-2023 End: 01-23-2025 Tobacco use and exposure Smokeless tobacco non-user [facility] Start: 10-08-2024 End: 11-05-2024 Alcoholic beverage intake Ex-drinker (finding) [facility] Start: 02-19-2019 End: 04-11-2023 History of Social function [facility] Start: 1975 Sex assigned at Not on file [facility] Start: 04-15-2015 Sex Male (finding) [facility] History of tobacco use Current smoker [facility] History of tobacco use [facility]arette [facility] Start: 01-23-2025 Alcoholic beverage intake Not Asked [facility] Start: 01-23-2025 Alcohol Comment [facility] Start: 1975 Sex Assigned At Male [facility] Clinical Notes 11-10-2021 to 02-10-2025 DEION Lerma - 02/10/2025 10:00 AM EDTPatient InstructionsNury Potter MD - 01/23/2025 9:30 AM EDTBDEION Gomez - 01/08/2025 9:00 AM EDTPatient InstructionsPatient Instructions Note Date & Type Note Facility 02-10-2025 History of Present illness Narrative Bariatric Medical Nutrition Therapy Nutritional Assessment/Education Weight check Video Visit via Real-time Synchronous Audiovisual Provider Location: [facility] OF [facility] [address] [place] [phone] Patient Location: Patient's home Video Visit Consent [...] that there are some limitations compared to azvy-xv-sgul evaluations. 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 Continue to track protein intake Start exercise program: walking at night, swim when water is open, strength training Nutrition Diagnosis: Obesity as evidenced by BMI. Body mass index is 56.85 kg/m . Nutrition Monitoring: To follow up in 4-6 weeks to monitor weight. Start time: 958 End time: 1020 documented in this encounter [employer] 02-10-2025 Instructions DEION Lerma - 02/10/2025 10:00 AM EDT Read the [facility]. If you re looking for general health and wellness resources, please visit [email or web address]. 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 [employer], however he does not have a formal [...] months with labs documented in this encounter [employer] [facility] 01-08-2025 History of Present illness Narrative Bariatric Medical Nutrition Therapy Nutritional Assessment/Education Session: Post-op #2 Video Visit via Real-time Synchronous Audiovisual Provider Location: [facility] [address] [place] [phone] Patient Location: Patient's home Video Visit Consent [...] that there are some limitations compared to btyf-hw-utsl evaluations. The patient consented to the presence [...] with veggies, ham and turkey with regular israeli dressing with a cheeseburger lucas (no bun), [...] iron daily or 1 vitamin daily. 2) 7220-2234 mg calcium in divided doses (2x/day) for sleeve and gastric bypass, 7553-9298 mg in divided doses (3x/day) for SADS [...] all discussed has been provided within the [facility] Bariatric Guide. My contact name and number provided if questions or concerns arise. Nutrition Monitoring: To monitor weight to show progress. Start time: 910 End time: 939 documented in this encounter [facility] 01-08-2025 Instructions DEION Lerma - 01/08/2025 9:00 AM EDT Read the [facility] Bariatric Guide. If you re looking for general health and wellness resources, please visit [email or web address]. documented in this encounter [facility] 12-09-2024 History of Present illness Narrative Bariatric Medical Nutrition Therapy Nutritional Assessment/Education Session: Post-op Rakesh Piña is a 49 y.o. male who presents for medical nutritional therapy after weight loss surgery. Video Visit via Real-time Synchronous Audiovisual Provider Location: [facility] [address] [place] [phone] Patient Location: Waiting room in [place] (for father's surgery) Video Visit Consent Statement: [...] that there are some limitations compared to thlj-vv-oogu evaluations. The patient consented to the presence of additional virtual and/or in-person participants. We elected to proceed. Barrier learning assessment: Yes Weight: unable to get one Rakesh had a sleeve gastrectomy in [place] in 2009. He received minimal nutrition information during that time and is motivated to get back on track with nutrition education to help with weight loss. aRkesh would like to get down to 250 [...] iron daily or 1 vitamin daily. 2) 6014-2007 mg calcium in divided doses (2x/day) for sleeve and gastric bypass, 4618-9363 mg in divided doses (3x/day) for SADS [...] all discussed has been provided within the [facility] Bariatric Guide. My contact name and number provided if questions or concerns arise. Nutrition Monitoring: To monitor weight to show progress. Start time: 0904 End time: 0950 documented in this encounter [facility] 12-09-2024 Instructions DEION Lerma - 12/09/2024 9:00 AM EDT Read the [facility] Bariatric Guide. If you re looking for general health and wellness resources, please visit [email or web address]. documented in this encounter [facility] 11-28-2024 History of Present illness Narrative [facility] GENERAL SURGERY [facility] [phone] [facility] SURGICAL WEIGHT LOSS PROGRAM INITIAL EVALUATION Patient: Rakesh Piña Service Date: 11/28/2024 Chief complaint: Wants help with weight loss 15 years after sleeve gastrectomy in [place] The patient is a 49 y.o. year [...] The patient had a sleeve gastrectomy in [place] in 2009. Two days after surgery he began having fever and chills and after workup was found to have an intra-abdominal abscess. He was seen at the [facility] by Crystal Parsons MD and underwent [...] week based on the recommendations from the [employer]. He is not eager to alegre into another surgery given his past experience. 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 [x] No [] Yes Do you have [...] turgor normal, no rashes or lesions Neurologic: bead trimmer intact, normal strength. Alert and oriented. Follows [...] this chart was generated using voice recognition [employer] dictation software. Although every effort was made to ensure the accuracy of this automated ship runner, some errors in ship runner may have occurred. documented in this encounter [facility] 11-05-2024 History of Present illness Narrative Images [...] Allergic rhinitis Autonomic dysfunction COVID-19 03/2020 Depression ([facility]) ETD (Eustachian tube dysfunction), bilateral H/O [...] Pedro Conte DPM documented in this encounter [facility] 10-21-2024 Telephone encounter Note Typv-hi-pcsn is scheduled for October 28 at 4:45 pm. They will call our office for the meeting [facility] 10-21-2024 Miscellaneous Notes Bjnw-ne-exvj is scheduled for October 28 at 4:45 [...] was approved. Thanks documented in this encounter [facility] 10-08-2024 Telephone encounter Note Pt was in this morning, Dr. Conte gave him the orthotic form. Rakesh called his insurance and they stated anything over $750 needs precert, and that they cover 1 pair of custom orthotics every 2 calendar years. Told him we would call him with info of est. And if precert was approved. Thanks [facility] 10-08-2024 History of Present illness Narrative Images from the original note were not included. Subjective Patient ID: Rakesh Piña is a 49 y.o. 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 [...] Allergic rhinitis Autonomic dysfunction COVID-19 03/2020 Depression ([facility]) ETD (Eustachian tube dysfunction), bilateral H/O [...] Pedro Conte DPM documented in this encounter [facility] 08-23-2023 Evaluation + Plan note Diagnostic Tests PendingTestosterone Level Total 08/23/23 [facility] 11-10-2021 Note PROCEDURE: XR HAND L T [...] authenticated by: KELLIE SMALLS Date: 2021-11-10 13:16 [facility] Evaluation + Plan note Future Appointments Appointment Date:04/23/2023 11:00:00 AM Scheduled Provider:Effie Muhammad Location:[facility] Appointment Type: [facility] Evaluation note Diagnosis Valgus deformity, not elsewhere classified, right ankle- Primary Valgus deformity, not elsewhere classified, left ankle Instability of left foot joint Instability of right foot joint Leg length discrepancy Unequal leg length (acquired) documented in this encounter [facility]* Diagnosis Valgus deformity, not elsewhere classified, right ankle- Primary Valgus deformity, not elsewhere classified, left ankle Instability of left foot joint Instability of right foot joint Leg length discrepancy Unequal leg length (acquired) Posterior tibial tendon dysfunction, bilateral documented in this encounter [facility] HealthcareEvaluation note* Diagnosis History of sleeve gastrectomy- Primary Morbid obesity with BMI of 50.0-59.9, adult ([facility]) [facility] Diagnosis Dietary counseling and surveillance- Primary Morbid obesity ([facility]) Morbid obesity History of sleeve gastrectomy [facility] Diagnosis Dietary counseling and surveillance- Primary Morbid obesity ([facility]) Morbid obesity History of sleeve gastrectomy [facility]* Diagnosis Insulin resistance- Primary Other abnormal glucose Morbid obesity ([facility]) Morbid obesity Low 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 documented [facility]* Diagnosis Dietary counseling and surveillance- Primary Morbid obesity ([facility]) Morbid obesity [facility]* Diagnosis Low 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 [facility]* Diagnosis Onset Date Resolution Status Admit Date Pre-employment examination acute March 19, 2025 10:52am [facility] Work Phone: Hospital course Narrative No data available for this section [facility] No data available for this section [facility] on filedocumented in this encounter [facility] on filedocumented in this [facility] filedocumented in [facility] No data available for this section [facility] (narrative)No reason for referral information [facility] Work Phone: Summary Purpose Family History No Family History Records FoundNo Family History Records FoundNo Family History Records FoundNo Family History Records Found No data available for this section No Family History Records FoundNo Family History Records FoundNo Family History Records FoundNo Family History Records FoundNo Family History Records Found Advance Directives Advance Directive Response Recorded Date/ Time Advance Directives No March 19 10:50am Chief Complaint and Reason for Visit Chief Complaint Admit Date 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 March 19, 2025 10:5 2am Reason for Visit Admit Date Pre-employment examination March 19 10:52am Additional Source Comments (unrecognized sect ion and content) No Status Records FoundNo Status Records FoundNo Status Records FoundNo Status Records FoundNo Status Records FoundNo Status Records FoundNo Status Records FoundNo Status Records FoundNo Status Records Found INFORMATION SOURCE (unrecogn ized section and content) DATE CREATED AUTHOR 01/28/2022 [facility] DATE CREATED AUTHOR AUTHOR'S ORGANIZ ATION 08/10/2022 [facility] DATE CREATED AUTHOR AUTHOR'S ORGANIZ ATION [facility]2024 [facility] [place] DATE CREATED AUTHOR AUTHOR'S ORGANIZ ATION 02/27/2024 [facility] DATE CREATED AUTHOR AUTHOR'S ORGANIZ ATION 11/28/2024 [facility] DATE CREATED AUTHOR AUTHOR'S ORGANIZ ATION 12/07/2024 [facility] DATE CREATED AUTHOR AUTHOR'S ORGANIZ ATION 01/06/2025 [facility] DATE CREATED AUTHOR AUTHOR'S ORGANIZ ATION 01/24/2025 [facility] DATE CREATED AUTHOR AUTHOR'S ORGANIZ ATION 02/11/2025 [facility] Patient Care team informatio n (unrecognized section and content) Manager Agriculture Relationship Specialty Start Date End Date Lulu Blank MD [address] [place] [address] PCP - General Family Medicine 04/05/23 Manager Agriculture Relationship Specialty Start Date End Date Lulu Blank MD [address] [place] [address] PCP - General Family Medicine 04/05/23 Manager Agriculture Relationship Specialty Start Date End Date Lulu Blank MD [address] [place] [address] PCP - General Family Medicine 04/05/23 Manager Agriculture Relationship Specialty Start Date End Date Lulu Blank MD [address] [place] [address] PCP - General Family Medicine 04/05/23 Manager Agriculture Relationship Specialty Start Date End Date Lulu Blank MD [address] [place] [address] PCP - General Family Medicine 04/05/23 Manager Agriculture Relationship Specialty Start Date End Date Effie Sarmiento, FLIGHT DATA TECHNICIAN-NEMATOLOGY TEACHER [address] [place], [place] [address], [place] [id number] PCP - General Nurse Practitioner 11/28/24 Manager Agriculture Relationship Specialty Start Date End Date Effie Sarmiento, FLIGHT DATA TECHNICIAN-NEMATOLOGY TEACHER [address] [place] [address] PCP - General Nurse Practitioner 11/28/24 Manager Agriculture Relationship Specialty Start Date End Date Effie Sarmiento, FLIGHT DATA TECHNICIAN-NEMATOLOGY TEACHER [address] [place] [address] PCP - General Nurse Practitioner 11/28/24 Manager Agriculture Relationship Specialty Start Date End Date Effie Sarmiento, FLIGHT DATA TECHNICIAN-NEMATOLOGY TEACHER [address] [place] [address] PCP - General Nurse Practitioner 11/28/24 Manager Agriculture Relationship Specialty Start Date End Date Effie Sarmiento L, FLIGHT DATA TECHNICIAN-NEMATOLOGY TEACHER [address] [place] [address] PCP - General Nurse Practitioner 11/28/24 Manager Agriculture Relationship Specialty Start Date End Date Effie Sarmiento, FLIGHT DATA TECHNICIAN-NEMATOLOGY TEACHER [address] [place] [address] PCP - General Nurse Practitioner 11/28/24 Team Status: Active Member Role Status Dates SANDRA Browning Primary Care Provider Active Team Status: Inactive Member Role Status Dates Jose Carlos Whitt DO Attending Provider Active Sta rt: March 19, 2025 End: March 19, 2025 SANDRA Browning Primary Care Provider Active Start: March 19, 2025 End: March 19, 2025 Reason for Visit (unrecogniz ed section and content) Reason Comments Foot 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 49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 getting new [...] History [place] [address] [place] [id number] Phone: tel: fax: Referral ID Status Reason Start Date Expiration Date Visits Requested Visits Authorized [id number] Authorized Specialty Services Required 11/28/2024 11/28/2025 12 12 Reason Comments Nutrition Counseling Follow-up Specialty Diagnoses / Procedures Referred By Valente courtney Referred To Contact Nutrition Diagnoses History of sleeve gastrectomy Nury Potter MD [address] [place] [address] Phone: tel: fax: Referral ID Status Reason Start Date Expiration Date Visits Requested Visits Authorized [id number] Authorized Specialty Services Required 11/28/2024 11/28/2025 12 12 Reason Comments ESTABLISHED PATIENT go over labs/1st ref reshor visit with dititian done Goals (unrecognized section and content) Goals may be documented in a n alternate section FOR RECORDS PERTAINING TO PATIENTS WHO ARE [...] BE BASED ON THE PRIMARY CLINICAL RECORDS. [facility] [employer] [facility]. provides no warranty or guarantee of the accuracy or completeness of information in this document.
--- NOTE | 2025-04-08 09:57 | PM.CN ---
Consult Note: HPI Data of Consult Patient: known to practice within the last 3 years Consult date: 04/08/25 Requesting Physician: Liliane Garcia NP Primary Care Provider: EFFIE SARMIENTO Consult Narrative Reason for consult: f/u Narrative: Milton Vaughn a pleasant 49 year old male presents for evaluation of chronic left hip and low back pain. longstanding hx of low back and left hip pain secondary to left hip OA, sacroiliitis, and lumbar spondylosis. PT has completed > 6 weeks of PT and provider guided HEP without significant improvement in pain or functional ability. pt finds benefit to celebrex and tizanidine without side effects. pt underwent left hip injection on 12/29/24 with >50% improvement ongoing. pain today 0/10 intermittently 6/10 with transitioning or stairs. BRENDA stable at 22%. cc:: CC: Liliane Garcia NP Review of Systems ROS Status of ROS 10 or more systems reviewed and unremarkable except as noted in history and below Musculoskeletal Reports: back pain and joint pain PFSH PFSH Medical History Osteoarthritis ?M19.90 - Unspecified osteoarthritis, unspecified site (ICD-10) KWAN on CPAP ?G47.33 - Obstructive sleep apnea (adult) (pediatric) (ICD-10) Sleep apnea ?G47.30 - Sleep apnea, unspecified (ICD-10) Meds Home Medications and Allergies Home Medications ?Medication ?Instructions ?Recorded ?Confirmed ?Type celecoxib 200 mg capsule (Celebrex) 200 mg PO BID 11/05/23 12/29/24 History cranberry fruit 400 mg capsule 1,600 mg PO DAILY 11/05/23 12/29/24 History loratadine 10 mg tablet (Claritin) 10 mg PO DAILY 11/05/23 12/29/24 History ascorbic acid (vitamin C) 1,000 mg 1,000 mg PO DAILY 12/03/23 12/29/24 History tablet,extended release (C Complex) paroxetine HCl 10 mg tablet 10 mg PO DAILY 01/07/24 12/29/24 History tizanidine 4 mg tablet 4 mg PO DAILY 06/30/24 12/29/24 History gabapentin 300 mg capsule 300 mg PO DAILY #30 caps 09/17/24 12/29/24 Rx calcium 600 mg capsule mg PO 01/07/25 History cyanocobalamin (B12)-cobamamide judy sublingual 01/07/25 History 5,000 mcg-100 mcg sublingual lozenge (B12) turmeric 400 mg capsule mg PO 01/07/25 History Allergies Allergy/AdvReac Type Severity Reaction Status Date / Time No Known Drug Allergies Allergy Verified 12/29/24 07:21 Exam Constitutional Documenting provider has reviewed patient's vital signs: yes Common normals: no apparent distress, oriented x3, healthy appearing, alert and well nourished General appearance: cooperative HENMT Common normals: normocephalic, hearing grossly normal bilaterally and moist oral mucous membranes Head and scalp: normocephalic Eye Common normals: PERRL Pupil: PERRL Neck & C-Spine Common normals: full ROM General: normal visual inspection Chest Common normals: inspection of chest normal Respiratory Common normals: normal respiratory effort, no retractions and no use of accessory muscles Back & Pelvis Lumbar spine/lower back: no pain with ROM and no lumbar spinal tenderness Sacroiliac joints: SI joint(s) abnormal Other: left SIJ mildly positive nancy(patricks), gaenslens, thigh thrust, compression test Extremity Left lower extremity: hip joint Other: mild pain with internal rotation of left hip, mild pain with external rotation. Neuro Common normals: oriented x3 Sensorium/orientation: alert Psych Common normals: mental status grossly normal, thought process normal, cooperative, affect normal, speech normal and activity/motor behavior normal Speech: normal speech Thought process: normal thought process Results Additional Findings Additional findings: If on a controlled substance or opioids, I have checked an [place] report on this patient and there are no aberrancies noted in the prescribing history.??If on a controlled substance or opioid a drug screen was completed and reviewed within the last year, and if there has not been a drug screen completed we ordered one today to monitor higher risk, state monitored pain medication use. As part of providing excellent, safe, comprehensive care, the following was completed at our patient's visit: 1. A medication reconciliation and review to ensure accurate knowledge of current/active medications, including asking our patients to inform us about any [id number] medications or herbal remedies/nutritional supplements/alternative remedies. 2. A review to specifically ensure our patients have had annual screening for screening for depression, screening for tobacco use, and screening for unhealthy alcohol use. For concerning screenings had a discussion with the patient, provided patient education, and recommended follow-up with primary care provider when appropriate. If patient noted with a risk of falling, they received education on strength, gait, and balance training to prevent future risk of falling. Portions of this note may have been carried over from the previous visit and updated as appropriate. Please note this office utilizes paper charting in addition to the electronic medical record. A list of current medications, vitals, and PMH is available there as the clinical staff outside of myself do not have access to [facility] charting during the clinic day operations. As part of providing quality comprehensive care the current medications, vitals, and PMH were reviewed in the paper chart. Assessment and Plan Assessment and Plan (1) Osteoarthritis of left hip: Assessment and Plan: 12/29/24 left hip injection, >50% improvement ongoing? Qualifiers: Osteoarthritis type: primary Qualified Code(s): M16.12 - Unilateral primary osteoarthritis, left hip (2) Sacroiliitis: (3) Lumbar stenosis with neurogenic claudication: (4) Lumbar spondylosis: (5) Myalgia: Plan continue HEP as tolerated continue current medications, risks vs benefits reviewed f/u 6 months, sooner if needed
== END 2025-04-08 09:22 | disposition home or self-care (01) ==
LOC: PM 09:22
PROVIDERS: PCP Nurse Practitioner; Visit Provider Nurse Practitioner
DX: M16.12 Unilateral primary osteoarthritis, left hip (principal); M46.1 Sacroiliitis, not elsewhere classified; M48.062 Spinal stenosis, lumbar region with neurogenic claudication; M47.816 Spondylosis without myelopathy or radiculopathy, lumbar region; M79.18 Myalgia, other site
CPT/HCPCS: G0463

== ENCOUNTER 2025-04-10 10:39 | Outpatient (OUT) | payer BC, SELFPAY ==
--- OUTSIDE RECORDS SUMMARY | 2025-04-10 11:09 | XMS_ITS | CCD ---
Author Organization [facility] CliniSynj Care Team Providers Care Ball Shagger Name Role Phone MAZIN CANO Admitting Unavailable [...] UGALDE Attending Unavailable TorstenEffie Primary Care Physician [phone] EFFIE SARMIENTO Referring Unavailable TORSTEN, EFFIE Referring [...] Unavailable Lulu Blank MD Primary Care Provider [phone] PEDRO CONTE Attending Unavailable RUSPEDRO WHITTINGTON Attending Unavailable PEDRO CONTE Attending Unavailable Torsten AREA LOSS PREVENTION MANAGER-SENIOR MANAGER MMCOEEffie Primary Care Provider RAAD POTTER Referring Unavailable TORSTEN, EFFIE Sewell Primary Care Unavailable Torsten AREA LOSS PREVENTION MANAGER-SENIOR MANAGER MMCOEEffie Primary Care Provider Sita CORRIGAN, Wilbert Guardado [...] Care Unavailable QUINN, IRIS Attending Unavailable TORSTEN, FEFIE L Referring Unavailable TORSTEN, EFFIE L Primary Care Unavailable QUINN, IRIS Attending Unavailable TORSTEN, EFFIE L Referring Unavailable TORSTEN, EFFIE L Primary Care Unavailable Jose Carlos Whitt DO Attending Provider [phone] Torsten SOLAR RESOURCE ASSESSOR-CEffie Primary Care Provider [phone] Allergies Allergy Classification Reported Allergen(s) Allergy Type [...] day(s), # 21 tab(s), Refills(s) 0, Pharmacy: [facility]/pharmacy #[id number], 176.5, cm, 03/19/23 13:15:00 EDT, Height/Length [...] Daily, # 90 tab(s), Refills(s) 3, Pharmacy: [facility]/pharmacy #[id number], 176.5, cm, 07/26/23 9:32:00 EST, Height/Length Dosing, 187.2, kg, 07/26/23 9:32:00 EST, Weight Dosing Start Date: 07/26/23 Status: Ordered phentermine hydrochloride 37.5 mg oral tablet (9 sources) Sympathomimetic Amine Anorectic Start: 07-26-2023 take 1 tablet by mouth once daily phentermine 37.5 mg Tab 37.5 mg = 1 tab(s), Oral, Daily, # 30 tab(s), Refills(s) 0, Pharmacy: [facility] #72, 176.5, cm, 07/26/23 9:32:00 EST, Height/Length Dosing, 187.2, kg, 07/26/23 9:32:00 EST, Weight Dosing Start Date: 07/26/23 Status: Ordered Start: 03-19-2023 End: 04-18-2023 take 1 tablet by mouth once daily phentermine 37.5 mg Tab 37.5 mg = 1 tab(s), Oral, Daily, X 30 day(s), # 30 tab(s), Refills(s) 0, Pharmacy: [facility] [...] 12-02-19 ABSOLUTE BASOPHIL 0.2 X10E9/L Normal 0.0-0.2 [facility] Comment on above: Performed By: #### 4 8615-9, 00484-3 #### [facility] ([id number]) [address] [place] [address] 545[address] #### LIVR, 40056-9, 2731-8, 2498-4, HA1C, 2132-9, 3016-3, CBCA #### [facility] ([id number]) [address] [facility], [address] [place] [address] ABSOLUTE NEUTROPHIL 5.2 X10E9/L Normal 1.5-6.6 [facility] Comment on above: Performed By: #### 4 8615-9, 65732-4 #### [facility] ([id number]) [address] [place] [address] 94793 #### LIVR, 05345-8, 2731-8, 2498-4, HA1C, 2132-9, 3016-3, CBCA #### [facility] ([id number]) [address], [address] [place] [address] Basophils/100 WBC (Bld) 2.6 % Normal [facility] Comment on above: Performed By: #### 4 8615-9, 45248-8 #### [facility] ([id number]) [address] [place] [address] 17030 #### LIVR, 68726-2, 2731-8, 2498-4, HA1C, 2-9, 3016-3, CBCA #### [facility] ([id number]) [address], [address] [place] [address] Eosinophils (Bld) [#/Vol] 0.1 10*3/uL Normal 0.0-0.4 [facility] Comment on above: Performed By: #### 4 8615-9, 54870-7 #### [facility] ([id number]) [address] [place] [address]2412 #### LIVR, 61059-5, 2731-8, 2498-4, HA1C, 2-9, 3016-3, CBCA #### [facility] ([id number]) [address], [address] [place] [address] Eosinophils/100 WBC (Bld) 1.5 % Normal [facility] Comment on above: Performed By: #### 4 8615-9, 95581-6 #### [facility] ([id number]) [address] [place] [address] 92802 #### LIVR, 76447-2, 2731-8, 2498-4, HA1C, 2132-9, 3016-3, CBCA #### [facility] ([id number]) [address], [address] [place] [address] Erythrocyte distribution width (RBC) [Ratio] 16.0 % High 11.5-15.0 [facility] Comment on above: Performed By: #### 4 8615-9, 11038-7 #### [facility] ([id number]) [address] [place] [address] 61925 #### LIVR, 24017-8, 2731-8, 2498-4, HA1C, 2132-9, 3016-3, CBCA #### [facility] ([id number]) [address], [facility] [address] [place] [address] Hematocrit (Bld) [Volume fraction] 44.1 % Normal 39-49 [facility] Comment on above: Performed By: #### 4 8615-9, 28021-5 #### [facility] ([id number]) [address] [place] [address] 56284 #### LIVR, 03457-8, 2731-8, 2498-4, HA1C, 2132-9, 3016-3, CBCA #### [facility] ([id number]) [address], [address] [address] Hemoglobin (Bld) [Mass/Vol] 14.6 g/dL Normal 13.0-17.0 [facility] Comment on above: Performed By: #### 4 8615-9, 12848-0 #### [facility] ([id number]) [address] [place] [address] 29397 #### LIVR, 84390-6, 2731-8, 2498-4, HA1C, 2132-9, 3016-3, CBCA #### [facility] ([id number]) [address], [facility] [address] [place] [address] Lymphocytes (Bld) [#/Vol] 1.3 10*3/uL Normal 1.0-3.5 [facility] Comment on above: Performed By: #### 4 8615-9, 84759-8 #### [facility] ([id number]) [address] [place] [address] 91967 #### LIVR, 49751-6, 2731-8, 2498-4, HA1C, 2132-9, 3016-3, CBCA #### [facility] ([id number]) [address], [address] [place] [address] Lymphocytes/100 WBC (Bld) 18.4 % Normal [facility] Comment on above: Performed By: #### 4 8615-9, 15543-2 #### [facility] ([id number]) [address] [place] [address] 24474 #### LIVR, 63947-7, 2731-8, 2498-4, HA1C, 2132-9, 3016-3, CBCA #### [facility] ([id number]) [address], [address] [place] [address] MCH (RBC) [Entitic mass] 28.3 pg Normal 27-34 [facility] Comment on above: Performed By: #### 4 8615-9, 10150-9 #### [facility] ([id number]) [address] [place] [address] 98185 #### LIVR, 31960-3, 2731-8, 2498-4, HA1C, 2132-9, 3016-3, CBCA #### [facility] ([id number]) [address] [facility], [address] [place] [address] MCHC (RBC) [Mass/Vol] 33.1 g/dL Normal 32-[address] [facility] Comment on above: Performed By: #### 4 8615-9, 29644-0 #### [facility] ([id number]) [address] [place] [address] 27927 #### LIVR, 13478-0, 2731-8, 2498-4, HA1C, 2131-9, 3016-3, CBCA #### [facility] ([id number]) [address], [address] [place] [address] MCV (RBC) [Entitic vol] 85 fL Normal 80-100 [facility] Comment on above: Performed By: #### 4 8615-9, 91957-6 #### [facility] ([id number]) [address] [place] [address] 21898 #### LIVR, 31268-8, 2731-8, 2498-4, HA1C, 2131-9, 6-3, CBCA #### [facility] ([id number]) [address], [address] [place] [address] Monocytes (Bld) [#/Vol] 0.3 10*3/uL Normal 0-0.9 [facility] Comment on above: Performed By: #### 4 8615-9, 02359-6 #### [facility] ([id number]) [address] [place] [address] 10221 #### LIVR, 56352-5, 2731-8, 2498-4, HA1C, 2131-9, 6-3, CBCA #### [facility] ([id number]) [address], [address] [place] [address] Monocytes/100 WBC (Bld) 4.3 % Normal [facility] Comment on above: Performed By: #### 4 8615-9, 12920-9 #### [facility] ([id number]) [address] [place] [address] 37755 #### LIVR, 42776-2, 2731-8, 2498-4, HA1C, 2131-9, 3016-3, CBCA #### [facility] ([id number]) [address], [address] [place] [address] Neutrophils/100 WBC (Bld) 73.2 % Normal [facility] Comment on above: Performed By: #### 4 8615-9, 54789-4 #### [facility] ([id number]) [address] [place] [address] 43170 #### LIVR, 24317-5, 2731-8, 2498-4, HA1C, 2-9, 3016-3, CBCA #### [facility] ([id number]) [address], [address] [place] [address] Platelet mean volume (Bld) [Entitic vol] 7.6 fL Normal 7-12 [facility] Comment on above: Performed By: #### 4 8615-9, 57988-1 #### [facility] ([id number]) [address] [place] [address] 32434 #### LIVR, 31569-3, 1-8, 2498-4, HA1C, 2131-9, 3016-3, CBCA #### [facility] ([id number]) [address], [address] [place] [address] Platelets (Bld) [#/Vol] 234 10*3/uL Normal 150-450 [facility] Comment on above: Performed By: #### 4 8615-9, 41021-8 #### [facility] ([id number]) [address] [place] [address] #### LIVR, 38186-7, 2731-8, 2498-4, HA1C, 2-9, 3016-3, CBCA #### [facility] ([id number]) [address], [address] [place] [address] RBC COUNT 5.16 X10E12/L Normal 4.10-5.70 [facility] Comment on above: Performed By: #### 4 8615-9, 43242-2 #### [facility] ([id number]) [address] [place] [address] 40908 #### LIVR, 40648-3, 2731-8, 2498-4, HA1C, 2132-9, 3016-3, CBCA #### [facility] ([id number]) [address], [address] [place] [address] WBC (Bld) [#/Vol] 7.1 10*3/uL Normal 4.0-11.0 [facility] Comment on above: Performed By: #### 4 8615-9, 09944-9 #### [facility] ([id number]) [address] [place] [address]2008 #### LIVR, 99146-3, 2731-8, 2498-4, HA1C, 2132-9, 3016-3, CBCA #### [facility] ([id number]) [address] [facility], [address] [place] [address] HGB A1C (GLYCO-HGB)on 2024 Glucose [Mass/Vol] 103 mg/dL Normal [facility] Comment on above: Performed By: #### 4 8615-9, 79026-1 #### [facility] ([id number]) [address] [place] [address] 39669 #### LIVR, 09256-7, 2731-8, 2498-4, HA1C, 2132-9, 3016-3, CBCA #### [facility] ([id number]) [address], [address] [place] [address] HbA1c (Bld) [Mass fraction] 5.2 % Normal 4.4-5.6 [facility] Comment on above: Result Comment: NOTE ADA Guidelines Result HgbA1c Normal : less than 5.7 % Prediabetes : 5.7 % to 6.4 % Diabetes : > 6.4 % Use with caution in patients with abnormal hemoglobin variants as the half-life of red blood cells and in vivo glycation rates are affected. Performed By: #### 4 8615-9, 08165-3 #### [facility] ([id number]) [address] [place] [address] 41362 #### LIVR, 68919-4, 2731-8, 2498-4, HA1C, 2132-9, 3016-3, CBCA #### [facility] ([id number]) [address], [address] [place] [address] IRONon 12-01-2024 Iron [Mass/Vol] 51 ug/dL Normal 50-212 [facility] Comment on above: Performed By: #### 4 8615-9, 95839-3 #### [facility] ([id number]) [address] [place] [address] 25305 #### LIVR, 62231-5, 2731-8, 2498-4, HA1C, 2132-9, 3016-3, CBCA #### [facility] ([id number]) [address] [facility], [address] [place] [address] Insulin.free and Insulin.tot al panel Qnon 12-01-2024 Insulin, Free, S 146 mcIU/mL High 3 - 25 [facility] Comment on above: Performed By: #### 4 8615-9, 87766-4 #### [facility] ([id number]) [address] [place] [address] 60563 #### LIVR, 44081-3, 2731-8, 2498-4, HA1C, 2132-9, 3016-3, CBCA #### [facility] ([id number]) [address] [facility], [address] [place] [address] Insulin, Total, S 168 mcIU/mL High 3 - 25 [facility] Comment on above: Result Comment: NOTE ADDITIONAL INFORMATION This test has been modified from the consultant education's instructions. Its performance characteristics were determined by [facility] in a manner consistent with CLIA requirements. [...] the total insulin concentration. Test Performed by: [facility] [address] [place] [address] Health Inspector Food: Leslye Pink Ph.D.; CLIA# [id number] Performed By: #### 4 8615-9, 64673-3 #### [facility] ([id number]) [address] [place] [address] 39732 #### LIVR, 20899-3, 2731-8, 2498-4, HA1C, 2132-9, 3016-3, CBCA #### [facility] ([id number]) [address] [facility], [address] [place] [address] LIVER PANELon 12-01-2024 Albumin [Mass/Vol] 3.7 g/dL Normal 3.2-5.3 [facility] Comment on above: Performed By: #### 4 8615-9, 50598-7 #### [facility] ([id number]) [address] [place] [address] 88223 #### LIVR, 49588-0, 2731-8, 2498-4, HA1C, 2132-9, 3016-3, CBCA #### [facility] ([id number]) [address], [address] [place] [address] ALP [Catalytic activity/Vol] 59 U/L Normal 39-130 [facility] Comment on above: Performed By: #### 4 8615-9, 96445-8 #### [facility] ([id number]) [address] [place] [address] 61809 #### LIVR, 72036-6, 2731-8, 2498-4, HA1C, 2132-9, 3016-3, CBCA #### [facility] ([id number]) [address] [facility], [address] [place] [address] ALT [Catalytic activity/Vol] 19 U/L Normal 0-40 [facility] Comment on above: Performed By: #### 4 8615-9, 23931-5 #### [facility] ([id number]) [address] [place] [address] 71606 #### LIVR, 22984-2, 2731-8, 2498-4, HA1C, 2132-9, 3016-3, CBCA #### [facility] ([id number]) [address], [address] [place] [address] AST [Catalytic activity/Vol] 18 U/L Normal 0-41 [facility] Comment on above: Performed By: #### 4 8615-9, 11557-2 #### [facility] ([id number]) [address] [place] [address] 67589 #### LIVR, 92663-8, 2731-8, 2498-4, HA1C, 2132-9, 3016-3, CBCA #### [facility] ([id number]) [address], [address] [place] [address] Bilirubin [Mass/Vol] 0.5 mg/dL Normal 0.3-1.2 [facility] Comment on above: Performed By: #### 4 8615-9, 77383-6 #### [facility] ([id number]) [address] [place] [address] 12674 #### LIVR, 04189-3, 2731-8, 2498-4, HA1C, 2131-9, 3016-3, CBCA #### [facility] ([id number]) [address], [address] [place] [address] Bilirubin.direct [Mass/Vol] 0.1 mg/dL Normal 0.0-0.4 [facility] Comment on above: Performed By: #### 4 8615-9, 15731-4 #### [facility] ([id number]) [address] [place] [address] 99731 #### LIVR, 88178-9, 2731-8, 2498-4, HA1C, 2131-9, 3016-3, CBCA #### [facility] ([id number]) [address] [facility], [address] [place] [address] Protein [Mass/Vol] 7.3 g/dL Normal 6.0-8.0 [facility] Comment on above: Performed By: #### 4 8615-9, 20643-9 #### [facility] ([id number]) [address] [place] [address] 99359 #### LIVR, 14102-0, 2731-8, 2498-4, HA1C, 2-9, 3016-3, CBCA #### [facility] ([id number]) [address], [address] [place] [address] Parathyrin.intact [Mass/Vol] on 12-01-2024 PTH INTACT 25 pg/mL Normal 12-88 [facility] Comment on above: Performed By: #### 4 8615-9, 81643-1 #### [facility] ([id number]) [address] [place] [address] 21349 #### LIVR, 50279-3, 2731-8, 2498-4, HA1C, 2132-9, 3016-3, CBCA #### [facility] ([id number]) [address] [place] [address], [address] [place] [address] TSH Qnon 12-01-2024 TSH 1.64 uIU/mL Normal 0.49-4.67 [facility] Comment on above: Performed By: #### 4 8615-9, 76530-8 #### [facility] ([id number]) [address] [place] [address] 07733 #### LIVR, 10706-1, 2731-8, 2498-4, HA1C, 2132-9, 3016-3, CBCA #### [facility] ([id number]) [address] [place] [address], [address] [place] [address] Testosterone free and total panel [Mass/Vol]on 12-01-2024 Testosterone [Mass/Vol] 286 ng/dL Normal 240-950 [facility] Comment on above: Result Comment: NOTE ADDITIONAL INFORMATION Testing performed by Liquid Chromatography-Tandem Mass Spectrometry (LC-MS/MS). This test was developed and its performance characteristics determined by [facility] in a manner consistent with CLIA requirements. This test has not been cleared or approved by the U.S. Food and Drug Administration. Test Performed by: [address] [address] Health Inspector Food: Leslye Pink Ph.D.; CLIA# [id number] Performed By: #### 4 8615-9, 32288-1 #### [facility] ([id number]) [address] [place] [address] #### LIVR, 01070-9, 2731-8, 2498-4, HA1C, 2132-9, 3016-3, CBCA #### [facility] ([id number]) [address], [address] [place] [address] TESTOSTERONE FREE 8.16 ng/dL Normal 4.26-16.4 [facility] Comment on above: Result Comment: NOTE ADDITIONAL INFORMATION This test was developed and its performance characteristics determined by [facility] in a manner consistent with CLIA requirements. This test has not been cleared or approved by the U.S. Food and Drug Administration. Performed By: #### 4 8615-9, 08044-8 #### [facility] ([id number]) [address] [place] [address] 96278 #### LIVR, 16568-7, 2731-8, 2498-4, HA1C, 2131-9, 3016-3, CBCA #### [facility] ([id number]) [address], [address] [place] [address] VITAMIN B12on 12-01-2024 Cobalamin (Vitamin B12) [Mass/Vol] 399 pg/mL Normal 180-914 [facility] Comment on above: Performed By: #### 4 8615-9, 53676-9 #### [facility] ([id number]) [address] [place] [address] 22629 #### LIVR, 97573-4, 2731-8, 2498-4, HA1C, 2132-9, 3016-3, CBCA #### [facility] ([id number]) [address], [address] [place] [address] Vitamin D+Metabolites [Mass/ Vol]on 12-01-2024 VITAMIN D 25 HYD TOT 36.1 ng/mL Normal 30-100 [facility] Comment on above: Result Comment: Vitamin D status 25 [place] Vitamin D Deficiency <20 ng/mL Insufficiency 20-29 ng/mL Sufficiency 30-100 ng/mL Toxicity >100 ng/mL NOTE: A pediatric reference range has not been established by the consultant education of this kit. The [place] [employer] recommends a Vitamin D level of = or >20ng/mL in infants and children. Performed By: #### 4 8615-9, 72703-7 #### [facility] ([id number]) [address] [place] [address], [place] [address] #### LIVR, 77304-4, 2731-8, 2498-4, HA1C, 2132-9, 3016-3, CBCA #### [facility] ([id number]) [address] [place] [address], [address] [place] [address] Operative Reporton Operative Report [id number]#1. 00TIFF Normal [facility] Consultation Noteon 02-20-20 Consultation Note [id number]#1 .00TIFF Normal [facility] Consultation Noteon 02-06-20 Consultation Note [id number]#1 .00TIFF Normal [facility] RAD - MRI Reporton RAD - MRI Report [id number]#1 .00TIFF Normal [facility] MRI LUMBAR SPINE WO CONTRAST on 01-23-2024 [...] compromise. L2-L3: No disc bulge or protrusion. Azbp-xk-dgwcnzaj facet arthropathy. No significant central canal stenosis. [...] Linares DO 01/24/24 Final result Normal [facility] MRI THORACIC SPINE WO CONTRA [...] Linares DO 01/24/24 Final result Normal [facility] Family Medicine Office/Clini c Noteon [...] open MRI. MRI order was sent to [facility] in [place]. Pt states the burning sensation from sitting [...] not able to get MRI done at [facility]. is waiting for PA for MRI in [place]. they have an open MRI machine. needs [...] days., # 18 tab(s), Refills(s) 0, Pharmacy: [facility]/pharmacy #[id number], 187.5, cm, 01/16/24 13:46:00 EDT, Height/Length Dosing, 183, kg, 01/16/24 13:4... 3. Non-smoker (Z78.9: Other specified health status) continue not smoking Ordered: predniSONE, = 1 -, Oral, As Directed, Take 3 tabs by mouth daily x3 days, then 2 tabs daily x3 days, then 1 tab daily x3 days., # 18 tab(s), Refills(s) 0, Pharmacy: [facility]/pharmacy #[id number], 187.5, cm, 01/16/24 13:46:00 EDT, Height/Length [...] 1 tab daily x3 days. Pickup at [facility]/pharmacy #[id number] Unchanged cranberry (cranberry oral capsule) See instructions [...] Pain Non-smoker BMI 60.0-69.9, adult Pharmacy Information [facility]/pharmacy #[id number]: [address] [place], [place] [address] [phone] Allergies No Known Allergies Problems Ongoing - [...] you for choosing us for your care. [facility] Physician Orderon 01-14-2024 Physician Order [id number]#1 .00TIFF [facility] Provider Letteron 01-14-2024 Provider Letter January 14, 2024 RAKESH PIÑA [address] [place] [phone] : 1975 To Whom It May Concern, Please excuse above patient from work. Date of Illness: From: 01/07/2024 To: 01/16/2024 May Return to Work On: 01/17/2024 Restrictions: None Comments: Sincerely, Family Medicine [address] [address] [facility] Ambulatory Visit Summaryon 0 01-09-2024 [...] 11:20 AM EDT With: Effie Muhammad Where: [facility] [place] Normal [facility] Consenton 01-09-2024 Consent [id number]#1 .00TIFF Normal [facility] ED Note-Physicianon 01-09-20 ED Note-Physician [id number]# 1.00TIFF Normal [facility] Family Medicine Office/Clini c Noteon 01-09-2024 Family Medicine Office/Clinic Note HPI Staff Rakesh is a 48 year old male presenting for ER follow up ER followup: Hospital: [facility] Visit date: 01/07/24 Symptoms the patient [...] Pain, # 60 tab(s), Refills(s) 0, Pharmacy: [facility]/pharmacy #[id number], 187.5, cm, 01/09/24 10:51:00 EDT, Height/Length [...] Pain, # 60 tab(s), Refills(s) 0, Pharmacy: [facility]/pharmacy #[id number], 187.5, cm, 01/09/24 10:51:00 EDT, Height/Length Dosing, 187.5, kg, 08/23/23 9:30:00 EST, Weight Dosing triamcinolone, 60 mg = 1.5 mL, Injection, IntraMuscular, Once, Stop date 01/09/24 11:20:00 EDT, Routine, Start date 01/09/24 11:20:00 EDT, 01/09/24 11:20:00 EDT Orders: phentermine, 37.5 mg = 1 tab(s), Oral, Daily, # 30 tab(s), Refills(s) 0, Pharmacy: [facility] #[id number], 176.5, cm, 07/26/23 9:32:00 EST, Height/Length [...] Allergies Social Hi (more content not included)... [facility] Comment on above: Result Comment: Elec tronically Signed By: Torsten MONSIVAIS, Effie Sewell\.br\Date and Time Signed: 01/09/24 11:25 EDT Physician Orderon 01-09-2024 Physician Order [id number]#1 .00TIFF [facility] Provider Letteron 01-09-2024 Provider Letter January 09, 2024 [place] [id number] : 1975 To Whom It May Concern, Please excuse above patient from work due to medical Date of Illness: From: _01-08-24 To: _01-14-24 May Return to Work On:01-15-24 Restrictions: _ Comments: _ Sincerely, Family Medicine [address] [address] [facility] RAD - CT Reporton 01-09-2024 RAD - CT Report [id number]#1 .00TIFF [facility] ED Note-Physicianon 01-08-20 ED Note-Physician [id number]#1 .00TIFF [facility] RAD - CT Reporton 01-08-2024 RAD - CT Report [id number]#1 .00TIFF [facility] Operative Reporton Operative Report [id number]#1 .00TIFF [facility] Consultation Noteon 11-07-19 24 Consultation Note [id number]#1 .00TIFF Normal [facility] PT - Progress Noteson 2023 PT - Progress Notes [id number]#1 .00TIFF Normal [facility] RAD - MISCon 10-29-2023 RAD - MISC [id number]#1 .00TIFF Normal [facility] Retail - Clinical Noteon Retail - Clinical Note [id number]#1 .00TIFF Normal [facility] Plan of Care - PT/OT/Speecho n 09-06-2023 Plan of Care - PT/OT/Speech [id number]#1 .00TIFF Normal [facility] Physician Referralon 023 Physician Referral [id number]# 1.00TIF Normal [facility] Testost Totalon 08-25-2023 Testosterone [Mass/Vol] 321 ng/dL Invalid Interpretation Code [id number] [facility] Comment on above: Result Comment: Adul t male reference interval is based on a population of healthy nonobese males (BMI <30) between 19 and 39 years old. precious Perdue.al. JCEM 2017,102;6390-6488. PMID: [id number]. Performed at: [facility] [address] [id number] PhD Domenic Rider Performed By: #### 2 [id number], [id number], [id number] ####[facility] [address] [place] [address] Reminderson 08-24-2023 Reminders - From: Effie Muhammad [...] left detailed message for patient below Normal [facility] CHEMISTRYOrdered By: SYSTEM SYSTEM on 08-23-2023 Cobalamin (Vitamin B12) [Mass/Vol] 301 pg/mL Normal 50 - 1500 pg/mL [employer] Vitamin D 25 Hydroxy 57.7 ng/mL [...] was in slow motion. 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 gabapentin and muscles relaxers did not help. 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 all questions answered. RTC as needed Ordered: cyclobenzaprine, 10 mg = 1 tab(s), Oral, Bedtime, PRN for spasm, # 30 tab(s), Refills(s) 0, Pharmacy: [facility], 176.5, cm, 07/26/23 9:32:00 EST, Height/Length Dosing, 187.2, kg, 07/26/23 9:32:00 EST, Weight Dosing gabapentin, 300 mg = 1 cap(s), Oral, Daily, # 30 cap(s), Refills(s) 0, Pharmacy: [facility], 176.5, cm, 07/26/23 9:32:00 EST, Height/Length Dosing, 187.2, kg, 07/26/23 9:32:00 EST, Weight Dosing 2. Fatigue (R53.83: Other fatigue) labs drawn today Ordered: Lab Specimen Collect [id number] Testosterone Level Total 3. Hypogonadism male (E29.1: Testicular hypofunction) testosterone ordered Ordered: Lab Specimen Collect [id number] Testosterone Level Total 4. BMI 60.0-69.9, adult (Z68.44: Body mass index [BMI] 60.0-69.9, adult) bmi education complete Ordered: cyclobenzaprine, 10 mg = 1 tab(s), Oral, Bedtime, PRN for spasm, # 30 tab(s), Refills(s) 0, Pharmacy: [facility], 176.5, cm, 07/26/23 9:32:00 EST, Height/Length Dosing, 187.2, kg, 07/26/23 9:32:00 EST, Weight Dosing gabapentin, 300 mg = 1 cap(s), Oral, Daily, # 30 cap(s), Refills(s) 0, Pharmacy: [facility], 176.5, cm, 07/26/23 9:32:00 EST, Height/Length Dosing, 187.2, kg, 07/26/23 9:32:00 EST, Weight Dosing Testosterone Level Total Vitamin B12 Level Vitamin D 25 Hydroxy Follow-up No qualifying data available Patient Education Obesity, Adult, Dzal-yc-Etrl Problem List/Past Medical History Ongoing Encounter for [...] ago Tob (more content not included)... Normal [facility] Comment on above: Result Comment: Elec [...] food choices, such as grocery stores and [employer]. What are the signs or symptoms? The [...] How much exercise you get. ? Take qajt-hrw-scnrhnf and prescription medicines only as told by [...] with yo (more content not included)... Normal [facility] Vit B12on 08-23-2023 Cobalamin (Vitamin B12) [Mass/Vol] 301 pg/mL Normal 50-1500 [facility] Comment on above: Performed By: #### 2 618353, [id number], [id number] #### [facility] Laboratory [address] [place] [address] Vitamin D 25 Hydroxyon 08-23 Vitamin D 25 Hydroxy 57.7 ng/mL Normal 30.0-100.0 [facility] Comment on above: Performed By: #### 2 667789, [id number], [id number] ####[facility] [address] [place] [address] Ambulatory Visit Summaryon 1 09-25-2022 Ambulatory Visit [...] 9:20 AM EST With: Effie Muhammad Where: [facility] [place] Normal [facility] Office/Clini c Noteon 07-26-2023 [facility] Office/Clinic Note HPI Staff Rakesh is [...] spasm, # 30 tab(s), Refills(s) 0, Pharmacy: [facility], 176.5, cm, 07/26/23 9:32:00 EST, Height/Length Dosing, 187.2, kg, 07/26/23 9:32:00 EST, Weight Dosing gabapentin, 300 mg = 1 cap(s), Oral, Daily, # 30 cap(s), Refills(s) 0, Pharmacy: [facility], 176.5, cm, 07/26/23 9:32:00 EST, Height/Length Dosing, 187.2, kg, 07/26/23 9:32:00 EST, Weight Dosing methylPREDNISolone, = 1 packet(s), Oral, As Directed, as directed on package labeling, X 6 day(s), # 21 tab(s), Refills(s) 0, Pharmacy: [facility], 176.5, cm, 07/26/23 9:32:00 EST, Height/Length [...] spasm, # 30 tab(s), Refills(s) 0, Pharmacy: [facility], 176.5, cm, 07/26/23 9:32:00 EST, Height/Length Dosing, 187.2, kg, 07/26/23 9:32:00 EST, Weight Dosing gabapentin, 300 mg = 1 cap(s), Oral, Daily, # 30 cap(s), Refills(s) 0, Pharmacy: [facility], 176.5, cm, 07/26/23 9:32:00 EST, Height/Length Dosing, 187.2, kg, 07/26/23 9:32:00 EST, Weight Dosing methylPREDNISolone, = 1 packet(s), Oral, As Directed, as directed on package labeling, X 6 day(s), # 21 tab(s), Refills(s) 0, Pharmacy: [facility], 176.5, cm, 07/26/23 9:32:00 EST, Height/Length Dosing, 187.2, kg, 07/26/23 9:32:00 EST, Weight Dosing 3. Numbness and tingling of foot (R20.0: Anesthesia of skin) discussed ENG results Ordered: cyclobenzaprine, 10 mg = 1 tab(s), Oral, Bedtime, PRN for spasm, # 30 tab(s), Refills(s) 0, Pharmacy: [facility], 176.5, cm, 07/26/23 9:32:00 EST, Height/Length Dosing, 187.2, kg, 07/26/23 9:32:00 EST, Weight Dosing gabapentin, 300 mg = 1 cap(s), Oral, Daily, # 30 cap(s), Refills(s) 0, Pharmacy: [facility], 176.5, cm, 07/26/23 9:32:00 EST, Height/Length Dosing, 187.2, kg, 07/26/23 9:32:00 EST, Weight Dosing methylPREDNISolone, = 1 packet(s), Oral, As Directed, as directed on package labeling, X 6 day(s), # 21 tab(s), Refills(s) 0, Pharmacy: [facility], 176.5, cm, 07/26/23 9:32:00 EST, Height/Length Dosing, 187.2, kg, 07/26/23 9:32:00 EST, Weight Dosing 4. Class 3 obesity (E66.01: Morbid (severe) obesity due to excess calories) pt continues with diet Ordered: cyclobenzaprine, 10 mg = 1 tab(s), Oral, Bedtime, PRN for spasm, # 30 tab(s), Refills(s) 0, Pharmacy: [facility], 176.5, cm, 07/26/23 9:32:00 EST, Height/Length Dosing, 187.2, kg, 07/26/23 9:32:00 EST, Weight Dosing gabapentin, 300 mg = 1 cap(s), Oral, Daily, # 30 cap(s), Refills(s) 0, Pharmacy: [facility], 176.5, cm, 07/26/23 9:32:00 EST, Height/Length Dosing, 187.2, kg, 07/26/23 9:32:00 EST, Weight Dosing methylPREDNISolone, = 1 packet(s), Oral, As Directed, as directed on package labeling, X 6 day(s), # 21 tab(s), Refills(s) 0, Pharmacy: [facility], (more content not included)... [facility] Comment on above: Result Comment: Elec tronically Signed By: Effie Muhammad\.br\Date and Time Signed: 07/26/23 09:54 EST EMG Electromyographyon 07-10 EMG Electromyography [id number]#1 .00TIFF [facility] EMG Electromyography [id number]#1. 00TIFF [facility] Physician Referralon 023 Physician Referral [id number]# 1.00TIFF [facility] Ambulatory Visit Summaryon 1 Ambulatory [...] 9:20 AM EST With: Effie Muhammad Where: [facility] [place] Normal [facility] Family Medicine Office/Clini c Noteon 06-21-2023 Family [...] day(s), # 30 tab(s), Refills(s) 1, Pharmacy: [facility], 176.5, cm, 06/21/23 9:41:00 EDT, Height/Length Dosing, 186.7, kg, 06/21/23 9:41:00 EDT, Weight Dosing meloxicam, 15 mg = 1 tab(s), Oral, Daily, X 30 day(s), # 30 tab(s), Refills(s) 0, Pharmacy: [facility], 176.5, cm, 06/21/23 9:41:00 EDT, Height/Length Dosing, 186.7, kg, 06/21/23 9:41:00 EDT, Weight Dosing meloxicam, 15 mg = 1 tab(s), Oral, Daily, # 30 tab(s), Refills(s) 1, Pharmacy: [facility], 176.5, cm, 05/22/23 9:51:00 EDT, Height/Length Dosing, 190.2, kg, 05/22/23 9:51:00 EDT, Weight Dosing 2. Left sciatic nerve pain (M54.32: Sciatica, left side) pt continues to have left sciatic nerve pain but it is improved Ordered: meloxicam, 15 mg = 1 tab(s), Oral, Daily, X 30 day(s), # 30 tab(s), Refills(s) 1, Pharmacy: [facility], 176.5, cm, 06/21/23 9:41:00 EDT, Height/Length Dosing, 186.7, kg, 06/21/23 9:41:00 EDT, Weight Dosing meloxicam, 15 mg = 1 tab(s), Oral, Daily, X 30 day(s), # 30 tab(s), Refills(s) 0, Pharmacy: [facility], 176.5, cm, 06/21/23 9:41:00 EDT, Height/Length Dosing, 186.7, kg, 06/21/23 9:41:00 EDT, Weight Dosing meloxicam, 15 mg = 1 tab(s), Oral, Daily, # 30 tab(s), Refills(s) 1, Pharmacy: [facility], 176.5, cm, 05/22/23 9:51:00 EDT, Height/Length Dosing, 190.2, kg, 05/22/23 9:51:00 EDT, Weight Dosing phentermine, 37.5 mg = 1 tab(s), Oral, Daily, X 30 day(s), # 30 tab(s), Refills(s) 0, Pharmacy: [facility], 176.5, cm, 05/22/23 9:51:00 EDT, Height/Length Dosing, 190.2, kg, 05/22/23 9:51:00 EDT, Weight Dosing [facility] External Ambulatory Referral 3. Lower extremity numbness (R20.0: Anesthesia of skin) EMG order sent to [facility] in [place] Ordered: [facility] External Ambulatory Referral 4. Morbid obesity due to excess calories (E66.01: Morbid (severe) obesity due to excess calories) BMI education complete Ordered: meloxicam, 15 mg = 1 tab(s), Oral, Daily, X 30 day(s), # 30 tab(s), Refills(s) 1, Pharmacy: [facility], 176.5, cm, 06/21/23 9:41:00 EDT, Height/Length Dosing, 186.7, kg, 06/21/23 9:41:00 EDT, Weight Dosing meloxicam, 15 mg = 1 tab(s), Oral, Daily, X 30 day(s), # 30 tab(s), Refills(s) 0, Pharmacy: [facility], 176.5, cm, 06/21/23 9:41:00 EDT, Height/Length Dosing, 186.7, kg, 06/21/23 9:41:00 EDT, Weight Dosing meloxicam, 15 mg = 1 tab(s), Oral, Daily, # 30 tab(s), Refills(s) 1, Pharmacy: [facility], 176.5, cm, 05/22/23 9:51:00 EDT, Height/Length Dosing, 190.2, kg, 05/22/23 9:51:00 EDT, Weight Dosing phentermine, 37.5 mg = 1 tab(s), Oral, Daily, X 30 day(s), # 30 tab(s), Refills(s) 0, Pharmacy: [facility], 176.5, cm, 05/22/23 9:51:00 EDT, Height/Length Dosing, 190.2, kg, 05/22/23 9:51:00 EDT, Weight Dosing 5. BMI 50.0-59.9, adult (Z68.43: Body mass index [BMI] 50.0-59.9, adult) BMI education complete 6. Non-smoker (Z78.9: Other specified health status) continue not smoking Ordered: meloxicam, 15 mg = 1 tab(s), Oral, Daily, X 30 day(s), # 30 tab(s), Refills(s) 1, Pharmacy: [facility], 176.5, cm, 06/21/23 9:41:00 EDT, Height/Length Dosing, 186.7, kg, 06/21/23 9:41:00 EDT, Weight Dosing meloxicam, 15 mg = 1 tab(s), Or (more content not included)... Normal [facility] Comment on above: Result Comment: Elec [...] AM EDT With: Effie Muhammad Where: [facility] Ambulatory Visit Summary RAKESH PIÑA :1975 [...] AM EDT With: Effie Muhammad Where: [facility] Family Medicine Office/Clini c Noteon 05-22-2023 [...] in his legs at night. 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 all questions answered. RTC 4 weeks Ordered: meloxicam, 15 mg = 1 tab(s), Oral, Daily, # 30 tab(s), Refills(s) 1, Pharmacy: [facility], 176.5, cm, 05/22/23 9:51:00 EDT, Height/Length Dosing, 190.2, kg, 05/22/23 9:51:00 EDT, Weight Dosing 2. Left sciatic nerve pain (M54.32: Sciatica, left side) will order antiinflammatory. steroid did not give him any relief Ordered: meloxicam, 15 mg = 1 tab(s), Oral, Daily, # 30 tab(s), Refills(s) 1, Pharmacy: [facility], 176.5, cm, 05/22/23 9:51:00 EDT, Height/Length Dosing, 190.2, kg, 05/22/23 9:51:00 EDT, Weight Dosing phentermine, 37.5 mg = 1 tab(s), Oral, Daily, X 30 day(s), # 30 tab(s), Refills(s) 0 phentermine, 37.5 mg = 1 tab(s), Oral, Daily, X 30 day(s), # 30 tab(s), Refills(s) 0, Pharmacy: [facility], 176.5, cm, 05/22/23 9:51:00 EDT, Height/Length Dosing, 190.2, kg, 05/22/23 9:51:00 EDT, Weight Dosing 3. BMI 60.0-69.9, adult (Z68.44: Body mass index [BMI] 60.0-69.9, adult) BMI education complete Ordered: meloxicam, 15 mg = 1 tab(s), Oral, Daily, # 30 tab(s), Refills(s) 1, Pharmacy: [facility], 176.5, cm, 05/22/23 9:51:00 EDT, Height/Length Dosing, 190.2, kg, 05/22/23 9:51:00 EDT, Weight Dosing 4. Morbid obesity due to excess calories (E66.01: Morbid (severe) obesity due to excess calories) see above Ordered: meloxicam, 15 mg = 1 tab(s), Oral, Daily, # 30 tab(s), Refills(s) 1, Pharmacy: [facility], 176.5, cm, 05/22/23 9:51:00 EDT, Height/Length Dosing, 190.2, kg, 05/22/23 9:51:00 EDT, Weight Dosing phentermine, 37.5 mg = 1 tab(s), Oral, Daily, X 30 day(s), # 30 tab(s), Refills(s) 0 phentermine, 37.5 mg = 1 tab(s), Oral, Daily, X 30 day(s), # 30 tab(s), Refills(s) 0, Pharmacy: [facility], 176.5, cm, 05/22/23 9:51:00 EDT, Height/Length Dosing, 190.2, kg, 05/22/23 9:51:00 EDT, Weight Dosing 5. Non-smoker (Z78.9: Other specified health status) continue not smoking Ordered: meloxicam, 15 mg = 1 tab(s), Oral, Daily, # 30 tab(s), Refills(s) 1, Pharmacy: [facility], 176.5, cm, 05/22/23 9:51:00 EDT, Height/Length Dosing, 190.2, kg, 05/22/23 9:51:00 EDT, Weight Dosing phentermine, 37.5 mg = 1 tab(s), Oral, Daily, X 30 day(s), # 30 tab(s), Refills(s) 0 phentermine, 37.5 mg = 1 tab(s), Oral, Daily, X 30 day(s), # 30 tab(s), Refills(s) 0, Pharmacy: [facility], 176.5, cm, 05/22/23 9:51:00 EDT, Height/Length [...] Daily Allerg (more content not included)... Normal [facility] Comment on above: Result Comment: Elec tronically Signed By: Effie Muhammad\.br\Date and Time Signed: 05/22/23 10:34 EDT [place] 04-26-2023 Consent [id number] .00CD:127 Normal [facility] Family Medicine Office/Clini c Noteon 04-24-2023 Family [...] kenalog 60mg IM in office today. Normal [facility] Comment on above: Result Comment: Elec [...] 11:00 AM EDT With: Effie Muhammad Where: [facility] Normal [facility] Auto Diffon 03-19-2023 Basophils/100 WBC (Bld) 0.3 % Normal 0.0-2.0 [facility] Comment on above: Order Comment: Order Added by Discern Expert. Performed By: #### 2 154964, 6381324, 1899412, 6995191, [id number] ####[facility] [address] [place] [address] Basophils/Leukocytes Auto (Bld) [Pure # fraction] 0.0 E9/L Normal 0.0-0.2 [facility] Comment on above: Order Comment: Order Added by Discern Expert. Performed By: #### 2 262424, 2840903, 8716169, [id number], [id number] ####[facility] [address] [place] [address] Eosinophils/100 WBC (Bld) 2.1 % Normal 0.0-8.0 [facility] Comment on above: Order Comment: Order Added by Discern Expert. Performed By: #### 2 959125, 5370791, 9605998, 7615445, [id number] ####[facility] [address] [place] [address] Eosinophils/Leukocytes Auto (Bld) [Pure # fraction] 0.2 E9/L Normal 0.0-0.5 [facility] Comment on above: Order Comment: Order Added by Discern Expert. Performed By: #### 2 296471, 6923346, 4893173, 7129298, 91667084 ####[address] [place] [address] Lymphocytes/100 WBC (Bld) 20.5 % Normal 14.0-50.0 [facility] Comment on above: Order Comment: Order Added by Nellie Expert. Performed By: #### 2 313355, 2811874, 9402328, 3994343, 63866703 ####[address] [place] [address] Lymphocytes/Leukocytes Auto (Bld) [Pure # fraction] 1.6 E9/L Normal 1.0-4.0 [facility] Comment on above: Order Comment: Order Added by Nellie Expert. Performed By: #### 2 929533, 2766901, 2603257, 7459212, [id number] ####[address] [address] Monocytes/100 WBC (Bld) 8.7 % Normal 4.0-14.0 [facility] Comment on above: Order Comment: Order Added by Nellie Expert. Performed By: #### 2 709879, 5864612, 5743025, 4074330, 48521387 ####[address] [address] Monocytes/Leukocytes Auto (Bld) [Pure # fraction] 0.7 E9/L Normal 0.2-1.0 [facility] Comment on above: Order Comment: Order Added by Nellie Expert. Performed By: #### 2 580289, 2531831, 9999816, 1414764, 82486579 ####[address] [address] Neutrophils/100 WBC (Bld) 68.4 % Normal 36.0-75.0 [facility] Comment on above: Order Comment: Order Added by Nellie Expert. Performed By: #### 2 505657, 4308617, 1488657, 6562761, 52591081 ####[address] [place] [address] Neutrophils/Leukocytes Auto (Bld) [Pure # fraction] 5.3 E9/L Normal 2.0-7.5 [facility] Comment on above: Order Comment: Order Added by Discern Expert. Performed By: #### 2 192285, 9458047, 3980758, 2325887, 49974344 ####[address] [address] CBC w/ Auto Diffon 3 Erythrocyte distribution width (RBC) [Ratio] 16.3 % High 10.9-14.2 [facility] Comment on above: Performed By: #### 2 272665, 8215485, 8123988, 0550546, 69157995 ####[address] [address] Hematocrit (Bld) [Volume fraction] 43.7 % Normal 37.7-49.0 [facility] Comment on above: Performed By: #### 2 528293, 6690873, 0447526, 3254605, 23407485 ####[facility] [address] [place] [address] Hemoglobin (Bld) [Mass/Vol] 14.4 g/dL Normal 13.5-17.5 [facility] Comment on above: Performed By: #### 2 775229, 8089416, 2934031, 7525101, 94079239 ####[address] [address] MCH (RBC) [Entitic mass] 27.9 pg Normal 27.0-34.0 [facility] Comment on above: Performed By: #### 2 127342, 9871111, 5632916, 5478138, 59491413 ####[address] [address] MCHC (RBC) [Mass/Vol] 33.0 g/dL Normal 31.4-36.0 [facility] Comment on above: Performed By: #### 2 332023, 6044973, 2644518, 3043464, 20434409 ####[facility] [address] [place] [address] MCV (RBC) [Entitic vol] 84.8 fL Normal 80.0-100.0 [facility] Comment on above: Performed By: #### 2 331453, 6192723, 2424299, 1184260, 00712660 ####[facility] [address] [place] [address] Platelet mean volume (Bld) [Entitic vol] 7.7 fL Normal 6.4-10.8 [facility] Comment on above: Performed By: #### 2 438896, 9414649, 3981962, 7417958, 36666701 ####[address] [address] Platelets (Bld) [#/Vol] 278.0 E9/L Normal 150.0-500.0 [facility] Comment on above: Performed By: #### 2 857633, 5303688, 1834370, 2131863, 17190367 ####[address] [address] RBC (Bld) [#/Vol] 5.2 E12/L Normal 4.3-5.9 [facility] Comment on above: Performed By: #### 2 928887, 6256629, 2759394, 4359894, 53566585 ####[address] [place] [address] WBC corrected for nucl RBC Auto (Bld) [#/Vol] 7.7 E9/L Normal 4.0-11.[address] [facility] Comment on above: Performed By: #### 2 025534, 3103372, 9237558, 4846276, 68824581 ####[address] [place] [address] CHEMISTRYOrdered By: SYSTEM SYSTEM on 03-19-2023 Cholesterol [Mass/Vol] 171 mg/dL Normal 120 - 200 mg/dL [facility] Remisol Cholesterol in HDL [Mass/Vol] [...] is a 47 year old presenting to [facility] care/physical Establish Care: History: Any previous diagnosis: [...] day(s), # 21 tab(s), Refills(s) 0, Pharmacy: [facility] #6[facility], 176.5, cm, 03/19/23 13:15:00 EDT, Height/Length Dosing phentermine, 37.5 mg = 1 tab(s), Oral, Daily, # 30 tab(s), Refills(s) 0, Pharmacy: [facility]/pharmacy #6177, 176.5, cm, 03/19/23 13:15:00 EDT, Height/Length [...] day(s), # 21 tab(s), Refills(s) 0, Pharmacy: [facility]/pharmacy #6177, 176.5, cm, 03/19/23 13:15:00 EDT, Height/Length [...] screening (Z12.11: (more content not included)... Normal [facility] Comment on above: Result Comment: Elec tronically Signed By: Torsten MONSIVAIS, Effie Sewell\.br\Date and Time Signed: 03/19/23 14:00 EDT Formson 03-19-2023 Forms [id number] .00CD:127 Normal [facility] HEMATOLOGYOrdered By: SYSTEM SYSTEM on 03-19-2023 Basophils/100 [...] 33.0 g/dL Normal 31.4 - 36.0 gm/dL [facility] HemeAutoSS MCV (RBC) [Entitic vol] 84.8 fL Normal 80.0 - 100.0 fL FT HemeAutoSS Platelet mean volume (Bld) [Entitic vol] 7.7 fL Normal 6.4 - 10.8 fL [facility] HemeAutoSS Platelets (Bld) [#/Vol] 278.0 E9/L Normal 150.0 - 500.0 E9/L [facility] HemeAutoSS RBC (Bld) [#/Vol] 5.2 E12/L Normal 4.3 - 5.9 E12/L [facility] HemeAutoSS WBC corrected for nucl RBC Auto (Bld) [#/Vol] 7.7 E9/L Normal 4.0 - 11.0 E9/L [facility] HemeAutoSS Lipid Panelon 03-19-2023 Cholesterol [Mass/Vol] 171 mg/dL Normal 120-200 [facility] Comment on above: Performed By: #### 2 399561, 6772146, 6161191, 7979020, 62823559 ####[facility] [address] [place] [address] Cholesterol in HDL [Mass/Vol] 39 mg/dL Invalid Interpretation Code [facility] Comment on above: Result Comment: HDL > or equal to 60 mg/dL: Low cardiovascular risk HDL < 40 mg/dL : High cardiovascular risk Performed By: #### 2 786863, 8518279, 4061375, 8573916, 95372780 ####[facility] [address] [place] [address] Cholesterol in LDL [Mass/Vol] 112 mg/dL Normal <=129 [facility] Comment on above: Performed By: #### 2 033257, 5757488, 7596038, 3199949, 96963469 ####[facility] [address] [place] [address] Cholesterol in VLDL [Mass/Vol] 19 mg/dL Normal 7-40 [facility] Comment on above: Performed By: #### 2 457063, 9155969, 0281084, 0252285, 87195055 ####[facility] [address] [place] [address] Triglyceride [Mass/Vol] 94 mg/dL Normal <=149 [facility] Comment on above: Performed By: #### 2 694931, 8350313, 9314750, 2895311, 92398681 ####[facility] [address] [place] [address] PSA Screen, Totalon 03-19-20 23 Prostate specific Ag [Mass/Vol] 0.9 ng/mL Normal 0.1-3.5 [facility] Comment on above: Result Comment: The concentration of PSA determined by different manufacturers can vary due to differences in assay methods and reagent specificity. Values obtained from different assay methods cannot be used interchangeably. The methodology used for this result was chemiluminescence using [employer]'s Access Hy[employer]ite[employer] PSA reagent. Performed By: #### 2 378252, 3596824, 9099573, 3422364, [id number] ####[facility] [address] [place] [address] TSHon 03-19-2023 TSH Qn 2.03 m[IU]/L Normal 0.34-5.60 [facility] Comment on above: Performed By: #### 2 [id number] ####[facility] [id number] [place] [address] [facility] SARS-CoV-2 (COVID-19) RNA BETHANY+probe Ql (Unsp spec) Not detected Normal NOT DETECTED [facility] Comment on above: [...] for this test is supported by the [employer] of Health and Human Service's declaration that [...] used). Performed By: #### C VDTBH #### [facility] [address] [place] [address] Dr. Mynor Yun GROUP A STREP CULTUREon 07-11 S. pyogenes Ag Ql (Unsp spec) Culture Observations: NEGATIVE FOR GROUP A STREPTOCOCCUS. Normal [facility] Comment on above: Performed By: #### G RASTCX #### [facility] [address] [place] [address] Dr. Mynor Yun INFLUENZA A AND B AGon 07-28 [facility] SEE BELOW Normal [facility] Comment on above: Result Comment: Nega tive for Flu A protein angiten. Infection due to Flu A cannot be ruled out. Flu A angiten in the sample may be below the detection limit of the test. Performed By: #### I NFLUAB #### [facility] [address] [place] [address] Dr. Mynor Yun INFLUBNEGH SEE BELOW Normal [facility] Comment on above: Result Comment: Nega tive for Flu B protein antigen. Infection due to Flu B cannot be ruled out. Flu B antigen in the sample may be below the detection limit of the test. Performed By: #### I NFLUAB #### [facility] [address] [place] [address] Dr. Mynor Yun INFLUENZA A AG Negative Normal NEGATIVE SEE COMMENT [facility] Comment on above: Performed By: #### I NFLUAB #### [facility] [address] [place] [address] Dr. Mynor Yun INFLUENZA B AG Negative Normal NEGATIVE SEE COMMENT [facility] Comment on above: Performed By: #### I NFLUAB #### [facility] [address] [place] [address] Dr. Mynor Yun INTERNAL CONTROLS Within Normal Limits Normal Wi thin Normal Limits [facility] Comment on above: Performed By: #### I NFLUAB #### [facility] [address] [place] [address] Dr. Mynor Yun STREPT SCREENon 07-28-2022 STREP SCREEN A Negative Normal NEGATIVE [facility] Comment on above: Performed By: #### S SCRN #### [facility] [address] [place] [address] Dr. Mynor Yun XR SINUSES 3 VIEWS [...] by: KELLIE SMALLS Date: 2022-02-01 09:[address] [facility] HAND LEFT 3 [facility] 12-29-2021 HAND LEFT 3 [facility] Department of Radiology [address] [place] [id number] Patient Name: RAKESH PIÑA : 1975 [...] alignment. Electronically signed: Edgardo Montana. Transcribed by: [email or web address], User Resident: Electronically Signed by: EDGARDO MONTANA @ 12/31/2021 08:55 AM Normal [facility] Comment on above: Order Comment: Evalu ate HAND LEFT 3 VWSon 12-08-2021 HAND LEFT 3 [facility] Department of Radiology [address] [place] [id number] Patient Name: RAKESH PIÑA : 1975 Sex: M Age: Race: White Pt. Location: 84 Patient Status: D Ordered Date: 12/08/2021 1:25:00 PM Completed Date: 12/08/2021 01:29 PM Requesting Provider: LORI DALLAS Attending Provider: LORI DALLAS Report Copy To: Signs & Symptoms: M79.642 Pain in left hand I10 History: [place] Comments: Evaluate Exam: HAND LEFT 3 VWS [...] bridging. Electronically signed: Ronaldo Major. Transcribed by: [email or web address], User Resident: Electronically Signed by: RONALDO MAJOR @ 12/09/2021 04:04 PM Normal [facility] Comment on above: Order Comment: Evalu ate HAND LEFT 3 Son 11-14-2021 HAND LEFT 3 S [facility] Department of Radiology [address] [place] [id number] Patient Name: RAKESH PIÑA : 1975 [...] fracture. Electronically signed: Timo Smith. Transcribed by: [email or web address], User Resident: Electronically Signed by: TIMO SMITH @ 11/14/2021 08:02 PM Normal [facility] Comment on above: Order Comment: Views (X-RAY, HAND): PA, Lateral, Oblique TESTOSTERONE, TOTALon 2021 Testosterone [Mass/Vol] 411 ng/dL Normal 264-[address] [facility] Comment on above: Result Comment: Adul t male reference interval is based on a population of healthy nonobese males (BMI <30) between 19 and 39 years old. Iron et.al. JCEM 2017,102;0362-9852. PMID: [id number]. Performed By: #### T ESTTOT #### [facility] [address] [place], [place] [address] Dr. Mynor Yun CBC AUTO DIFFon 11-11-2021 BASO # 0.0 103/ul Normal 0.0-0.[address] [facility] Comment on above: Performed By: #### C BC #### [facility] [address] [place], [place] [address] Dr. Mynor Yun Basophils/100 WBC (Bld) 0.2 % Normal 0.2-2.[address] [facility] Comment on above: Performed By: #### C BC #### [facility] [address] [place] [address] Dr. Mynor Yun EO # 0.1 103/ul Normal 0.0-0.[address] [facility] Comment on above: Performed By: #### C BC #### [facility] [address] [place] [address] Dr. Mynor Yun Eosinophils/100 WBC (Bld) 1.2 % Normal 0.9-7.[address] [facility] Comment on above: Performed By: #### C BC #### [facility] [address] [place] [address] Dr. Mynor Yun Erythrocyte distribution width (RBC) [Ratio] 14.3 % Normal 11.0-15.[address] [facility] Comment on above: Performed By: #### C BC #### [facility] [address] [place] [address] Dr. Mynor Yun Hematocrit (Bld) [Volume fraction] 47.3 % Normal 42.0-54.[address] [facility] Comment on above: Performed By: #### C BC #### [facility] [address] [place] [address] Dr. Mynor Yun Hemoglobin (Bld) [Mass/Vol] 15.2 g/dL Normal 14.0-18.[address] [facility] Comment on above: Performed By: #### C BC #### [facility] [address] [place] [address] Dr. Mynor Yun IG # 0.03 10e3/ul Normal 0.00-0.[address] [facility] Comment on above: Performed By: #### C BC #### [facility] [address] [place] [address] Dr. Mynor Yun IG % 0.3 % Normal 0.0-0.5 [facility] Comment on above: Performed By: #### C BC #### [facility] [address] [place] [address] Dr. Mynor Yun LYMPH # 1.6 103/ul Normal 1.2-3.8 [facility] Comment on above: Performed By: #### C BC #### [facility] [address] [place] [address] Dr. Mynor Yun Lymphocytes/100 WBC (Bld) 18.4 % Critically low 20.5-60.[address] [facility] Comment on above: Performed By: #### C BC #### [facility] [address] [place] [address] Dr. Mynor Yun MANUAL DIFF REQ NO Normal [facility] Comment on above: Performed By: #### C BC #### [facility] [address] [place] [address] Dr. Mynor Yun MCH (RBC) [Entitic mass] 28.8 pg Normal 25.9-34.[address] [facility] Comment on above: Performed By: #### C BC #### [facility] [address] [place] [address] Dr. Mynor Yun MCHC (RBC) [Mass/Vol] 32.1 g/dL Normal 29.9-35.[address] [facility] Comment on above: Performed By: #### C BC #### [facility] [address] [place] [address] Dr. Mynor Yun MCV (RBC) [Entitic vol] 89.8 fL Normal 80.0-94.[address] [facility] Comment on above: Performed By: #### C BC #### [facility] [address] [place] [address] Dr. Mynor Yun MONO # 0.7 103/ul Normal 0.3-0.[address] [facility] Comment on above: Performed By: #### C BC #### [facility] [address] [place] [address] Dr. Mynor Yun Monocytes/100 WBC (Bld) 8.4 % Normal 1.7-12.0 [facility] Comment on above: Performed By: #### C BC #### [facility] [address] [place] [address] Dr. Mynor Yun NEUT # 6.2 103/ul Normal 1.4-6.5 [facility] Comment on above: Performed By: #### C BC #### [facility] [address] [address] [address] Mynor Yun Neutrophils/100 WBC (Bld) 71.5 % Normal 43.0-75.[address] [facility] Comment on above: Performed By: #### C BC #### [facility] [address] [address] [address] Mynor Yun Platelet mean volume (Bld) [Entitic vol] 8.7 fL Critically low 9.5-13.[address] [facility] Comment on above: Performed By: #### C BC #### [facility] [address] [place] [address] Dr. Mynor Yun PLT 263 103/ul Normal 150-[address] [facility] Comment on above: Performed By: #### C BC #### [facility] [address] [place] [address] Dr. Mynor Yun RBC 5.27 106/ul Normal 4.70-6.[address] [facility] Comment on above: Performed By: #### C BC #### [facility] [address] [place] [address] Dr. Mynor Yun WBC 8.7 103/ul Normal 4.0-11.[address] [facility] Comment on above: Performed By: #### C BC #### [facility] [address] [place] [address] Dr. Mynor Yun LIPID PROFILEon 11-11-2021 CHOL-HDL RATIO NORM SEE BELOW Normal [facility] Comment on above: Result Comment: 3.3 - 4.4 LOW RISK 4.4 - 7.1 AVERAGE RISK 7.1 - 11.0 MODERATE RISK >11.0 HIGH RISK Performed By: #### S SCRN #### [facility] [address] [place] [address] Dr. Mynor Yun Cholesterol [Mass/Vol] 129 mg/dL Normal <=200 [facility] Comment on above: Performed By: #### S SCRN #### [facility] [address] [place] [address] Dr. Mynor Yun Cholesterol in HDL [Mass/Vol] 34 mg/dL Normal [facility] Comment on above: Performed By: #### S SCRN #### [facility] [address] [address] [address] Mynor Yun Cholesterol in LDL [Mass/Vol] 82.2 mg/dL Normal [facility] Comment on above: Performed By: #### S SCRN #### [facility] [address] [address] [address] Mynor Yun Cholesterol.total/Chol esterol in HDL [Mass ratio] 3.8 {ratio} Normal [facility] Comment on above: Performed By: #### S SCRN #### [facility] [address] [address] [address] Mynor Yun HDL NORMAL > or = 60 mg/dl - LO W CARDIOVASCULAR RISK <40 mg/dl - HIGH CARDIOVASCULAR RISK Normal [facility] Comment on above: Performed By: #### S SCRN #### [facility] [address] [address] [address] Mynor Yun LDL CALC NORMAL SEE BELOW Normal [facility] Comment on above: Result Comment: <100 mg/dl OPTIMAL 100 - 129 mg/dl NEAR OR ABOVE OPTIMAL 130 - 159 mg/dl BORDERLINE HIGH 160 - 189 mg/dl HIGH >190 mg/dl VERY HIGH Performed By: #### S SCRN #### [facility] [address] [address] [address] Mynor Yun Triglyceride [Mass/Vol] 64 mg/dL Normal <=[address] [facility] Comment on above: Performed By: #### S SCRN #### [facility] [address] [address] [address] Mynor Yun VLDL CALC 12.8 mg/dL Normal [facility] Comment on above: Performed By: #### S SCRN #### [facility] [address] [address] [address] Mynor Yun PROF 14(COMP METB)on 022 Albumin [Mass/Vol] 3.8 g/dL Normal 3.5-5.0 [facility] Comment on above: Performed By: #### T SH, LIPID, CMP #### [facility] [address] [address] [address] Mynor Yun Albumin/Globulin [Mass ratio] 0.9 {ratio} Normal [facility] Comment on above: Performed By: #### T SH, LIPID, CMP #### [facility] [address] [address] [address] Mynor Yun ALP [Catalytic activity/Vol] 76 U/L Normal 38-[address] [facility] Comment on above: Performed By: #### T SH, LIPID, CMP #### [facility] [address] [address] [address] Mynor Yun ALT [Catalytic activity/Vol] 49 U/L Normal 21-[address] [facility] Comment on above: Performed By: #### T SAMARIA, LIPID, CMP #### [facility] [address] [address] [address] Mynor Yun Anion gap [Moles/Vol] 11.2 mmol/L Normal [facility] Comment on above: Performed By: #### T SAMARIA, LIPID, CMP #### [facility] [address] [address] [address] Mynor Yun AST [Catalytic activity/Vol] 31 U/L Normal 17-[address] [facility] Comment on above: Performed By: #### T SAMARIA, LIPID, CMP #### [facility] [address] [address] [address] Mynor Yun Bilirubin [Mass/Vol] 0.5 mg/dL Normal 0.2-1.[address] [facility] Comment on above: Performed By: #### T SAMARIA, LIPID, CMP #### [facility] [address] [address] [address] Mynor Yun Calcium [Mass/Vol] 9.0 mg/dL Normal 8.4-10.2 [facility] Comment on above: Performed By: #### T SH, LIPID, CMP #### [facility] [address] [address] [address] Mynor Yun Chloride [Moles/Vol] 104 mmol/L Normal 98-[address] [facility] Comment on above: Performed By: #### T SH, LIPID, CMP #### [facility] [address] [address] [address] Mynor Yun CO2 [Moles/Vol] 30.6 mmol/L Critically high 22.0-30.[address] [facility] Comment on above: Performed By: #### T SH, LIPID, CMP #### [facility] [address] [address] [address] Mynor Yun Creatinine [Mass/Vol] 0.95 mg/dL Normal 0.66-1.[address] [facility] Comment on above: Performed By: #### T SH, LIPID, CMP #### [facility] [address] [address] [address] Mynor Yun EGFR-AF BERMUDIAN >60 Normal >=60 [facility] Comment on above: Performed By: #### T SH, LIPID, CMP #### [facility] [address] [address] [address] Mynor Yun EGFR-NON AF BERMUDIAN >60 Normal >=[address] [facility] Comment on above: Performed By: #### T SH, LIPID, CMP #### [facility] [address] [address] [address] Mynor Yun Globulin (S) [Mass/Vol] 4.3 g/dL Normal [facility] Comment on above: Performed By: #### T SH, LIPID, CMP #### [facility] [address] [address] [address] Mynor Yun Glucose [Mass/Vol] 104 mg/dL Normal 74-106 [facility] Comment on above: Performed By: #### T SH, LIPID, CMP #### [facility] [address] [address] [address] Mynor Yun Potassium [Moles/Vol] 3.8 mmol/L Normal 3.4-5.[address] [facility] Comment on above: Performed By: #### T SH, LIPID, CMP #### [facility] [address] [address] [address] Mynor Yun Protein [Mass/Vol] 8.1 g/dL Normal 6.1-8.2 [facility] Comment on above: Performed By: #### T SH, LIPID, CMP #### [facility] [address] [address] [address] Mynor Yun Sodium [Moles/Vol] 142 mmol/L Normal 137-145 [facility] Comment on above: Performed By: #### T SH, LIPID, CMP #### [facility] [address] [address] [address] Mynor Yun Urea nitrogen [Mass/Vol] 11.0 mg/dL Normal 9.0-20.[address] [facility] Comment on above: Performed By: #### T SH, LIPID, CMP #### [facility] [address] [place] [address] Dr. Mynor Yun Urea nitrogen/Creatinine [Mass ratio] 11.6 mg/mg Normal [facility] Comment on above: Performed By: #### T SH, LIPID, CMP #### [facility] [address] [place] [address] Dr. Mynor Yun TSHon 11-11-2021 TSH 1.612 uIU/mL Normal 0.470-4.680 [facility] Comment on above: Performed By: #### T SH, LIPID, CMP #### [facility] [address] [place] [address] Dr. Mynor Yun TSH RANGE SEE BELOW Normal [facility] Comment on above: Result Comment: <0.3 4 UIU/ml HYPERTHYROID 0.34-5.60 UIU/ml EUTHYROID >5.60 UIU/ml HYPOTHYROID Performed By: #### T SH, LIPID, CMP #### [facility] [address] [place] [address] Dr. Mynor Yun Vital Signs Date Time Vital Sign Value Performing Clinician Facility 03-19-2025 11:42-0400 Body height 175.26 cm Effie Sarmiento NP-C Work Phone: [facility] 03-19-2025 11:42-0400 Diastolic blood pressure 83 mm[Hg] Effie Sarmiento SOLAR RESOURCE ASSESSOR-C Work Phone: [facility] 03-19-2025 11:42-0400 Heart rate 79 /min Effie Torsten SOLAR RESOURCE ASSESSOR-C Work Phone: [facility] 03-19-2025 11:42-0400 Respiratory rate 12 /min Effie Torsten SOLAR RESOURCE ASSESSOR-C Work Phone: [facility] 03-19-2025 11:42-0400 Systolic blood pressure 136 mm[Hg] Effie Torsten SOLAR RESOURCE ASSESSOR-C Work Phone: [facility] 02-10-2025 10:00-0400 Body mass index (BMI) [Ratio] 56.85 kg/m2 Iris ALBARRAN [facility] 02-10-2025 10:00-0400 Body weight 174.63 kg [facility] 01-23-2025 09:34-0400 Body height 175.3 cm Nury Potter MD Work Phone: [facility] 01-23-2025 09:34-0400 Body mass index (BMI) [Ratio] 56.88 kg/m2 Nury Potter MD Work Phone: [facility] 01-23-2025 09:34-0400 Body weight 174.73 kg Nury Potter MD Work Phone: [facility] 01-23-2025 09:34-0400 Diastolic blood pressure 108 mm[Hg] Nury Potter MD Work Phone: [facility] 01-23-2025 09:34-0400 Systolic blood pressure 179 mm[Hg] Nury Potter MD Work Phone: [facility] 01-08-2025 09:00-0400 Body mass index (BMI) [Ratio] 55.17 kg/m2 Iris ALBARRAN [facility] 01-08-2025 09:00-0400 Body weight 176.9 kg [facility]ARRAN [facility] 12-09-2024 09:00-0400 Body height 179.1 cm [facility] 11-28-2024 09:48-0400 Body height 179.1 cm Nury Potter MD Work Phone: [facility] 11-28-2024 09:48-0400 Body mass index (BMI) [Ratio] 55.17 kg/m2 Nury Potter MD Work Phone: [facility] 11-28-2024 09:48-0400 Body weight 176.9 kg Nury Potter MD Work Phone: [facility] 11-05-2024 10:17-0500 Body height 175.3 cm Pedro Rusher DPM Work Phone: [facility] 11-05-2024 10:17-0500 Body mass index (BMI) [Ratio] 55.38 kg/m2 Pedro Rusher DPM Work Phone: [facility] 11-05-2024 10:17-0500 Body weight 170.1 kg Pedro Rusher DPM Work Phone: [facility] 10-08-2024 10:31-0500 Body height 175.3 cm Pedro Rusher DPM Work Phone: [facility] 10-08-2024 10:31-0500 Body mass index (BMI) [Ratio] 55.38 kg/m2 Pedro Rusher DPM Work Phone: [facility] 10-08-2024 10:31-0500 Body weight 170.1 kg Pedro Rusher DPM Work Phone: [facility] Healthcare Encounters Encounter Date Encounter Type Care Provider Facility Start: 03-19-2025 End: 03-19-2025 ambulatory Effie Sarmiento [employer]AR RESOURCE ASSESSOR-C Work Phone: [facility] Work Phone: Start: 03-19-2025 End: 03-19-2025 Patient encounter procedure Jose Carlos [facility] DO [facility] Work Phone: Start: 03-16-2025 End: 03-16-2025 Orders Only Nury Potter MD Work Phone: [facility]-B[facility]ric Comment on above: Low 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 Start: 02-10-2025 End: 02-10-2025 Telemedicine consultation with patient Iris Quinn [facility] Comment on above: Dietary counseling a nd surveillance (Primary Dx); Morbid obesity (CMS-HCC) Start: 02-10-2025 End: 02-10-2025 [facility] Start: 01-23-2025 End: 01-23-2025 Office outpatient visit 25 minutes Nury Potter MD Work Phone: [facility] Comment on above: Insulin resistance ( Primary Dx); Morbid obesity (CMS-HCC); Low 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 Start: 01-23-2025 End: 01-23-2025 [facility] Start: 01-08-2025 End: 01-08-2025 [facility] Start: 01-08-2025 End: 01-08-2025 Telemedicine consultation with patient Iris Quinn [facility] Comment on above: Dietary counseling a nd surveillance (Primary Dx); Morbid obesity ([facility]-HCC); History of sleeve gastrectomy Start: 12-29-2024 End: 12-29-2024 ambulatory Wilbert Buckner MD Facility[facility] Start: 12-09-2024 End: 12-09-2024 Telemedicine consultation with patient Iris Quinn [facility] Comment on above: Dietary counseling a nd surveillance (Primary Dx); Morbid obesity ([facility]-HCC); History of sleeve gastrectomy Start: 12-09-2024 End: 12-09-2024 [facility] Start: 12-01-2024 End: 12-01-2024 [facility] Start: 11-28-2024 End: 11-28-2024 Office outpatient new 45 minutes Nury Potter MD Work Phone: [facility] Comment on above: History of sleeve ga strectomy (Primary Dx); Morbid obesity with BMI of 50.0-59.9, adult ([facility] Start: 11-28-2024 End: 11-28-2024 ambulatory [facility] Start: 11-26-2024 End: 11-26-2024 ambulatory PEDRO Melissa UMER Not Available Start: 11-05-2024 End: 11-05-2024 Bamboo flowsheet Pedro Conte DPM Work Phone: [facility] Start: 11-05-2024 End: 11-05-2024 Bamboo flowsheet Pedro Conte DPM Work Phone: [facility] Start: 11-05-2024 End: 11-05-2024 ambulatory PEDRO CONTE Not Available Start: 11-05-2024 End: 11-05-2024 Postop follow up visit related to original px Pedro Conte DPM Work Phone: [facility] Comment on above: Valgus deformity, no t elsewhere classified, right ankle (Primary Dx); Valgus deformity, not elsewhere classified, left ankle; Instability of left foot joint; Instability of right foot joint; Leg length discrepancy; Posterior tibial tendon dysfunction, bilateral Start: 10-08-2024 End: 10-08-2024 Bamboo flowsheet Pedro Conte DPM Work Phone: [facility] Start: 10-08-2024 End: 10-08-2024 Bamboo flowsheet Pedro Conte DPM Work Phone: [facility] Start: 10-08-2024 End: 10-30-2024 Telephone encounter Emily Kaur MA [facility] Comment on above: [facility] Start: 10-08-2024 End: 10-08-2024 Office outpatient new 30 minutes Pedro Conte DPM Work Phone: [facility] Comment on above: Valgus deformity, [...] Start: 01-23-2024 End: 01-26-2024 ambulatory EFFIE TORSTEN [facility] Start: 01-16-2024 End: 01-16-2024 ambulatory Effie L Torsten Facility:[facility] Start: 01-14-2024 End: 01-14-2024 ambulatory Effie L Torsten Facility:[facility] Start: 01-09-2024 End: 01-09-2024 ambulatory Effie L Torsten Facility:[facility] Start: 08-23-2023 End: 08-23-2023 Lab Drop off Effie L Torsten [facility] Start: 08-23-2023 End: 08-23-2023 ambulatory Effie L Torsten Facility:[facility] Start: 07-26-2023 End: 07-26-2023 ambulatory Effie L Torsten Facility:[facility] Start: 06-21-2023 End: 06-21-2023 ambulatory Effie L Torsten Facility:[facility] Start: 05-22-2023 End: 05-22-2023 ambulatory [facility] Start: 04-24-2023 End: 04-24-2023 ambulatory Effie L Torsten Facility:[facility] Start: 03-19-2023 End: 03-19-2023 ambulatory Effie L Torsten Facility:[facility] Start: 03-19-2023 End: 03-19-2023 Lab Drop off Effie L Torsten [facility] Start: 03-19-2023 End: 03-19-2023 ambulatory Effie L Torsten Facility:[facility] Start: 03-15-2023 ambulatory Effie Torsten Facility:[facility] Start: 07-28-2022 End: 07-28-[address] LULU BLANK Facility:[facility] Start: 02-01-2022 End: 02-02-[address] LULU BLANK Facility:[facility] Start: 11-15-2021 Encounter for genera l adult medical examination without abnormal findings DR LULU BLANK [facility] Start: 11-11-2021 End: 11-12-[address] [...] Adult BMI Screening [facility] Start: 01-23-2026 Adult BMI Screening Adult [facility] Start: 01-23-2026 Tobacco Screening Tobacco Screening [facility] Start: 01-08-2026 Adult BMI Screening Adult BMI Screen ing [facility] Start: 12-09-2025 Adult BMI Follow Up Plan Adult BMI Follow Up Plan [facility] Start: 11-28-2025 Adult BMI Screening Adult BMI Screen ing [facility] Start: 05-11-2025 Influenza vaccination Influenza Vacc ine [facility] Start: 04-25-2025 End: 01-23-2026 Basic metabolic 2000 panel - Serum or Plasma Basic Metabolic Panel Lab Routine Insulin resistance Expected: 04/25/2025 (Approximate), Expires: 01/23/2026 [facility] Comment on above: Expected: 04/25/2025 (Approximate), Expires: 01/23/2026 Start: 04-25-2025 End: 01-23-2026 Insulin, Free and Total, Serum Insulin, Free and Total, Serum Lab Routine Insulin resistance Expected: 04/25/2025 (Approximate), Expires: 01/23/2026 [facility] Comment on above: Expected: 04/25/2025 (Approximate), Expires: 01/23/2026 Start: 04-25-2025 End: 01-23-2026 Testosterone, Total and Free, S Testosterone, Total and Free, S Lab Routine Low 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 Expected: 04/25/2025 (Approximate), Expires: 01/23/2026 [facility] Work Phone: Comment on above: Expected: 04/25/2025 (Approximate), Expires: 01/23/2026 Start: 04-24-2025 End: 04-24-2025 Patient encounter procedure 04/24/2025 10:00 AM EDT Office Visit [facility] [place] [phone] Nury Potter MD [address] [place] [address] [facility] Start: 02-10-2025 End: 02-10-2025 Telemedicine consultation with patient 02/10/2025 10:[address] [facility] [address] [phone] [facility] Start: 01-23-2025 End: 01-23-2025 Patient encounter procedure 01/23/2025 9:30 AM EDT Office Visit [facility] [address] [place] [phone] Nury Potter MD [address] [place] [address] [facility] Start: 01-08-2025 End: 01-08-2025 Telemedicine consultation with patient 01/08/2025 9:[address] [facility] [address] [place] [phone] [facility] Start: 12-09-2024 End: 12-09-2024 Telemedicine consultation with patient 12/09/2024 9:[address] [facility] [address] [place] [phone] [facility] Start: 11-11-2024 End: 11-11-2024 Patient encounter procedure 11/11/2024 4:45 PM EST Office Visit [facility] [address] [place] [address] Lanny Guthrie DO [address] [place] [address] [facility] Start: 11-05-2024 End: 11-05-2024 Patient encounter procedure 11/05/2024 10:00 AM EST Office Visit [facility] [address] [place] [phone] Pedro Conte, DPStephanie [address] [place], [place] [phone] [facility] Start: 10-08-2024 End: 10-08-2024 Patient encounter procedure 10/08/2024 10:45 AM EST Office Visit [facility] [address] [place] [address] Pedro Conte, DPStephanie [address] [place] [address] Arrived [facility] Comment on above: Arrived Start: 05-11-2024 COVID-19 Vaccine ( season) COVID-19 Vaccine ( season) [facility] Start: 1996 DTaP,Tdap and Td Vac cines (1 - Tdap) DTaP,Tdap and Td Vaccines (1 - Tdap) [facility] Start: 1995 Adult BMI Follow Up Plan Adult BMI Follow Up Plan [facility] Start: 1989 Depression Screening Depression Scre ening [facility] Start: 1989 Tobacco Screening Tobacco Screening [facility] Start: 1977 Screening for malign ant neoplasm of colon [facility] End: 11-28-2025 CBC W Auto Differential panel - Blood CBC auto differential Lab Routine History of sleeve gastrectomy 1 Occurrences starting 11/28/2024 until 11/28/2025 [employer] Work Phone: Comment on above: 1 Occurrences starti ng 11/28/2024 until 11/28/2025 End: 03-16-2026 CBC W Auto Differential panel - Blood CBC auto differential Lab Routine Low 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 1 Occurrences starting 03/16/2025 until 03/16/2026 [employer] Work Phone: Comment on above: 1 Occurrences starti ng 03/16/2025 until 03/16/2026 End: 11-28-2025 Cyanocobalamin vitamin b-12 Vitamin B12 Lab Routine History of sleeve gastrectomy 1 Occurrences starting 11/28/2024 until 11/28/2025 [facility] Comment on above: 1 Occurrences starti ng 11/28/2024 until 11/28/2025 End: 11-28-2025 Hemoglobin A1c/Hemoglobin.total in Blood Hemoglobin A1c Lab Routine History of sleeve gastrectomy 1 Occurrences starting 11/28/2024 until 11/28/2025 [facility] Comment on above: 1 Occurrences starti ng 11/28/2024 until 11/28/2025 End: 11-28-2025 Insulin, Free and Total, Serum Insulin, Free and Total, Serum Lab Routine History of sleeve gastrectomy 1 Occurrences starting 11/28/2024 until 11/28/2025 [facility] Comment on above: 1 Occurrences starti ng 11/28/2024 until 11/28/2025 End: 11-28-2025 Iron [Mass/volume] in Serum or Plasma Iron Lab Routine History of sleeve gastrectomy 1 Occurrences starting 11/28/2024 until 11/28/2025 [facility] Comment on above: 1 Occurrences starti ng 11/28/2024 until 11/28/2025 End: 11-28-2025 Liver panel Liver panel Lab Routine History of sleeve gastrectomy 1 Occurrences starting 11/28/2024 until 11/28/2025 [facility] Comment on above: 1 Occurrences starti ng 11/28/2024 until 11/28/2025 End: 11-28-2025 Parathyroid Hormone, intact Parathyroid Hormone, intact Lab Routine History of sleeve gastrectomy 1 Occurrences starting 11/28/2024 until 11/28/2025 [facility] Comment on above: 1 Occurrences starti ng 11/28/2024 until 11/28/2025 End: 03-16-2026 PSA w/ RFLX to Free PSA PSA w/ RFLX to Free PSA Lab Routine Low 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 1 Occurrences starting 03/16/2025 until 03/16/2026 [facility] Comment on above: 1 Occurrences starti ng 03/16/2025 until 03/16/2026 End: 11-28-2025 Testosterone, Total and Free, S Testosterone, Total and Free, S Lab Routine History of sleeve gastrectomy 1 Occurrences starting 11/28/2024 until 11/28/2025 [facility] Comment on above: 1 Occurrences starti ng 11/28/2024 until 11/28/2025 End: 11-28-2025 Thyrotropin [Units/volume] in Serum or Plasma TSH Lab Routine History of sleeve gastrectomy 1 Occurrences starting 11/28/2024 until 11/28/2025 [facility] Comment on above: 1 Occurrences starti ng 11/28/2024 until 11/28/2025 End: 11-28-2025 Vitamin D 25 hydroxy Vitamin D 25 hydroxy Lab Routine History of sleeve gastrectomy 1 Occurrences starting 11/28/2024 until 11/28/2025 [facility] Comment on above: 1 Occurrences starti ng 11/28/2024 until 11/28/2025 Immunizations Immunization Date Immunization Notes Care Provider Chandni cardoza 07-08-2024 influenza, seasonal, injectable, preservative free Pedro Rusher DPM Work Phone: [facility] 07-08-2024 influenza virus vacc ine, unspecified formulation Iris ALBARRAN [facility] 05-31-2023 influenza virus vacc ine, unspecified formulation Effie Torsten [facility] 05-31-2023 influenza, injectabl e, quadrivalent, preservative free Pedro Rusher DPM Work Phone: [facility] 06-07-2022 influenza virus vacc ine, unspecified formulation Effie Torsten [facility] 06-07-2022 influenza, injectabl e, quadrivalent, preservative free Pedro Rusher DPM Work Phone: [facility] 11-12-2020 SARS-CoV-2 (COVID-19 ) mRNA BNT-162b2 vax Effie Torsten [facility] 10-22-2020 SARS-CoV-2 (COVID-19 ) mRNA BNT-162b2 vax Effie Torsten [facility] 03-10-2019 pneumococcal polysaccharide vaccine, 23 valent Effie Torsten [facility] 08-18-2009 novel influenza-H1N1 -09, preservative-free, injectable Pedro Rusher DPM Work Phone: [facility] Healthcare Payers Date Payer Category Payer Unknown 2022 [facility] BCBS [id number] 2022 [employer] Managed [employer] - O [id number] 2022 Unknown [id number] 2019 Unknown [id number] 2013 Medicare 1977 Unknown [id number] 2.16.840.1.278458.3.579.2. 593 1977 Unknown [id number] 2.16.840.1.042256.3.579.2. 593 1977 Unknown [id number] 2.16.840.1.170390.3.579.2. 593 1977 Unknown [id number] 2.16.840.1.893309.3.579.2. 593 1977 Unknown [id number] 2.16.840.1.492767.3.579.2. 182 1977 Unknown [id number] 2.16.840.1.474638.3.579.2. 182 1977 Unknown [id number] 2.16.840.1.804622.3.579.2. 727 1977 Unknown [id number] 2.16.840.1.318505.3.579.2. 727 1977 Unknown [id number] 2.16.840.1.621429.3.579.2. 727 1977 Unknown [id number] 2.16.840.1.580384.3.579.2. 1977 Unknown [id number] 2.16.840.1.622783.3.579.2. 1977 Unknown [id number] 2.16.840.1.424887.3.579.2. 1977 Unknown [id number] 2.16.840.1.407607.3.579.2. 1977 Unknown [id number] 2.16.840.1.137326.3.579.2. 1977 Unknown [id number] 2.16.840.1.538740.3.579.2. 1977 Unknown [id number] 2.16.840.1.486358.3.579.2. 1977 Unknown [id number] 2.16.840.1.978000.3.579.2. 1977 Unknown [id number] 2.16.840.1.069687.3.579.2. 1258 1977 Unknown [id number] 2.16.840.1.555205.3.579.2. 9 1977 Unknown [id number] 2.16.840.1.997143.3.579.2. 1258 1977 Unknown [id number] 2.16.840.1.549430.3.579.2. 1286 1977 Unknown [id number] 2.16.840.1.552085.3.579.2. 1977 Unknown [id number] 2.16.840.1.876272.3.579.2. 1977 Unknown [id number] 2.16.840.1.013830.3.579.2. 1977 Unknown [id number] 2.16.840.1.183873.3.579.2. 196 1977 Unknown [id number] 2.16.840.1.103328.3.579.2. 196 1977 Unknown [id number] 2.16.840.1.003427.3.579.2. 196 1977 Unknown [id number] 2.16.840.1.681276.3.579.2. 196 1977 Unknown [id number] 2.16.840.1.939288.3.579.2. 1286 1977 Unknown [id number] 2.16.840.1.805237.3.579.2. 1286 1977 Unknown [id number] 2.16.840.1.226852.3.579.2. 1286 1977 Unknown [id number] 2.16.840.1.087344.3.579.2. 1286 1977 Unknown [id number] 2.16.840.1.680691.3.579.2. 1286 1959 Medicare [id number] 1959 Unknown [id number] Medicaid Medicaid [id number] Social History Date Type Detail Facility Start: 03-19-2023 End: 01-23-2025 Tobacco smoking status Ex-smoker (finding) [facility] Tobacco smoking status Never Miguel Ángel Di[facility] Start: 02-19-2019 End: 04-11-2023 Sex Assigned At Male Lul Echavarria [facility] Start: 04-05-2023 [facility] Start: 04-05-2023 End: 01-23-2025 Tobacco use and exposure Smokeless tobacco non-user [facility] Start: 10-08-2024 End: 11-05-2024 Alcoholic beverage intake Ex-drinker (finding) [facility] Start: 02-19-2019 End: 04-11-2023 History of Social function [facility] Start: 1975 Sex assigned at Not on file [facility] Start: 04-15-2015 Sex Male (finding) [facility] History of tobacco use Current smoker [facility] History of tobacco use [facility]arette [facility] Start: 01-23-2025 Alcoholic beverage intake Not Asked [facility] Start: 01-23-2025 Alcohol Comment [facility] Start: 1975 Sex Assigned At Male F [facility] Clinical Notes 11-10-2021 to 02-10-2025 DEION Lerma - 02/10/2025 10:00 AM EDTPatient InstructionsNury Potter MD - 01/23/2025 9:30 AM EDTBDEION Gomez - 01/08/2025 9:00 AM EDTPatient InstructionsPatient Instructions Note Date & Type Note Facility 02-10-2025 History of Present illness Narrative Bariatric Medical Nutrition Therapy Nutritional Assessment/Education Weight check Video Visit via Real-time Synchronous Audiovisual [facility] [address] [place] [phone] Patient Location: Patient's home Video Visit Consent [...] that there are some limitations compared to ymbv-dl-qwlg evaluations. 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 Continue to track protein intake Start exercise program: walking at night, swim when water is open, strength training Nutrition Diagnosis: Obesity as evidenced by BMI. Body mass index is 56.85 kg/m . Nutrition Monitoring: To follow up in 4-6 weeks to monitor weight. Start time: 958 End time: 1020 documented in this encounter [email or web address] 02-10-2025 Instructions DEION Lerma - 02/10/2025 10:00 AM EDT Read the [email or web address] B[facility] Guide. If you re looking for general health and wellness resources, please visit [email or web address]. 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 [facility] 01-08-2025 History of Present illness Narrative Bariatric Medical Nutrition Therapy Nutritional Assessment/Education Session: Post-op #2 Video Visit via Real-time Synchronous Audiovisual Provider Location: [facility] OF [facility] [address] [place] [phone] Patient Location: Patient's home Video Visit Consent [...] that there are some limitations compared to nzzi-rk-dxbk evaluations. The patient consented to the presence [...] iron daily or 1 vitamin daily. 2) 0490-5486 mg calcium in divided doses (2x/day) for sleeve and gastric bypass, 4553-2383 mg in divided doses (3x/day) for SADS [...] all discussed has been provided within the [facility] Bariatric Guide. My contact name and number provided if questions or concerns arise. Nutrition Monitoring: To monitor weight to show progress. Start time: 910 End time: 939 documented in this encounter [facility] 01-08-2025 Instructions DEION Lerma - 01/08/2025 9:00 AM EDT Read the [facility] Bariatric Guide. If you re looking for general health and wellness resources, please visit [email or web address]. documented in this encounter [facility] 12-09-2024 History of Present illness Narrative Bariatric Medical Nutrition Therapy Nutritional Assessment/Education Session: Post-op Rakesh Piña is a 49 y.o. male who presents for medical nutritional therapy after weight loss surgery. Video Visit via Real-time Synchronous Audiovisual Provider Location: [facility] A DEPARTMENT OF [facility] [address] [place] [phone] Patient Location: Waiting room in [place] (for father's surgery) Video Visit Consent Statement: [...] that there are some limitations compared to eyrf-tu-fsdt evaluations. The patient consented to the presence [...] iron daily or 1 vitamin daily. 2) 0029-8574 mg calcium in divided doses (2x/day) for sleeve and gastric bypass, 0712-5576 mg in divided doses (3x/day) for SADS [...] all discussed has been provided within the [facility] Bariatric Guide. My contact name and number provided if questions or concerns arise. Nutrition Monitoring: To monitor weight to show progress. Start time: 0904 End time: 0950 documented in this encounter [facility] 12-09-2024 Instructions DEION Lerma - 12/09/2024 9:00 AM EDT Read the [facility] Bariatric Guide. If you re looking for general health and wellness resources, please visit [email or web address]. documented in this encounter [facility] 11-28-2024 History of Present illness Narrative [facility] GENERAL SURG[facility] [phone] [facility] SURGICAL WEIGHT LOSS PROGRAM INITIAL EVALUATION Patient: Rakesh Piña Service Date: 11/28/2024 Chief complaint: Wants help with weight loss 15 years after sleeve gastrectomy in [place] The patient is a 49 y.o. year [...] The patient had a sleeve gastrectomy in [place] in 2009. Two days after surgery he began having fever and chills and after workup was found to have an intra-abdominal abscess. He was seen at the [facility] by Crystal Parsons MD and underwent [...] week based on the recommendations from the [place] [employer]. 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 Alert and oriented. Follows [...] this chart was generated using voice recognition orangutrans dictation software. Although every effort was made to ensure the accuracy of this automated web production assistant, some errors in web production assistant may have occurred. documented in this encounter [email or web address] 11-05-2024 History of Present illness Narrative Images [...] Allergic rhinitis Autonomic dysfunction COVID-19 03/2020 Depression ([facility]) ETD (Eustachian tube dysfunction), bilateral H/O gastric [...] Pedro Conte DPM documented in this encounter [facility] 10-21-2024 Telephone encounter Note Zgpq-te-ptyt is scheduled for October 28 at 4:45 pm. They will call our office for the meeting [facility] 10-21-2024 Miscellaneous Notes Gyjc-bo-dbks is scheduled for October 28 at 4:45 [...] was approved. Thanks documented in this encounter [facility] 10-08-2024 Telephone encounter Note Pt was in this morning, Dr. Conte gave him the orthotic form. Rakesh called his insurance and they stated anything over $750 needs precert, and that they cover 1 pair of custom orthotics every 2 calendar years. Told him we would call him with info of est. And if precert was approved. Thanks [facility] 10-08-2024 History of Present illness Narrative Images from the original note were not included. Subjective Patient ID: Rakesh Piña is a 49 y.o. 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 [...] Allergic rhinitis Autonomic dysfunction COVID-19 03/2020 Depression ([facility]) ETD (Eustachian tube dysfunction), bilateral H/O gastric [...] Pedro Conte DPM documented in this encounter [facility] 08-23-2023 Evaluation + Plan note Diagnostic Tests PendingTestosterone Level Total 08/23/23 [facility] 11-10-2021 Note PROCEDURE: XR HAND L [...] authenticated by: KELLIE SMALLS Date: 2021-11-10 13:[address] [facility] Evaluation + Plan note Future Appointments Appointment Date:04/23/2023 11:00:00 AM Scheduled Provider:Effie Muhammad Location:[facility] Appointment Type: Open [facility] Evaluation note Diagnosis Valgus deformity, not elsewhere classified, right ankle- Primary Valgus deformity, not elsewhere classified, left ankle Instability of left foot joint Instability of right foot joint Leg length discrepancy Unequal leg length (acquired) [facility]* Diagnosis Valgus deformity, not elsewhere classified, right ankle- Primary Valgus deformity, not elsewhere classified, left ankle Instability of left foot joint Instability of right foot joint Leg length discrepancy Unequal leg length (acquired) Posterior tibial tendon dysfunction, bilateral [facility]* Diagnosis History of sleeve gastrectomy- Primary Morbid obesity with BMI of 50.0-59.9, adult ([facility]) documented in this encounter [facility]* Diagnosis Dietary counseling and surveillance- Primary Morbid obesity ([facility]) Morbid obesity History of sleeve gastrectomy documented in this encounter [facility]* Diagnosis Dietary counseling and surveillance- Primary Morbid obesity ([facility]) Morbid obesity History of sleeve gastrectomy documented in this encounter [facility]* Diagnosis Insulin resistance- Primary Other abnormal glucose Morbid obesity ([facility]) Morbid obesity Low 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 documented in this encounter [facility]* Diagnosis Dietary counseling and surveillance- Primary Morbid obesity ([facility]) Morbid obesity documented in this encounter [facility]* Diagnosis Low 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 documented in this encounter [facility]* Diagnosis Onset Date Resolution Status Admit Date Pre-employment examination acute March 19, 2025 10:52am [facility] Work Phone: Hospital course Narrative No data available for this section [facility] No data available for this section [facility]ructionsNot on filedocumented in this encounter [facility] on filedocumented in this encounter [facility]Not on filedocumented in this encounter [facility] SystemProgress note No data available for this section [facility] for referral (narrative)No reason for referral information [facility]a [facility] Work Phone: Summary Purpose Family History No [...] Reason for Visit Chief Complaint Admit Date 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 Physical March 19, 2025 10:5 2am Reason [...] DATE CREATED AUTHOR 01/28/2022 [facility] DATE CREATED AUTHOR AUTHOR'S ORGANIZ ATION 08/10/2022 [facility] DATE CREATED AUTHOR AUTHOR'S ORGANIZ ATION [facility]/28/2024 [facility] DATE CREATED AUTHOR AUTHOR'S ORGANIZ ATION 02/27/2024 [facility] DATE CREATED AUTHOR AUTHOR'S ORGANIZ ATION 11/28/2024 [facility] dical Specialists [facility] DATE CREATED AUTHOR AUTHOR'S ORGANIZ ATION 12/07/2024 [facility] DATE CREATED AUTHOR AUTHOR'S ORGANIZ ATION 01/06/2025 [facility] DATE CREATED AUTHOR AUTHOR'S ORGANIZ ATION 01/24/2025 [facility] DATE CREATED AUTHOR AUTHOR'S ORGANIZ ATION 02/11/2025 [facility] Patient Care team informatio n (unrecognized section and content) Ball Shagger Relationship Specialty Start Date End Date Lulu Blank MD [address] [place] [address] PCP - General Family Medicine 04/05/23 Ball Shagger Relationship Specialty Start Date End Date Lulu Blank MD [address] [place] [address] PCP - General Family Medicine 04/05/23 Ball Shagger Relationship Specialty Start Date End Date Lulu Blank MD [address] [place] [address] PCP - General Family Medicine 04/05/23 Ball Shagger Relationship Specialty Start Date End Date Lulu Blank MD [address] [place] [address] PCP - General Family Medicine 04/05/23 Ball Shagger Relationship Specialty Start Date End Date Lulu Blank MD [address] [place] [address] PCP - General Family Medicine 04/05/23 Ball Shagger Relationship Specialty Start Date End Date Effie Sarmiento, AREA LOSS PREVENTION MANAGER-SENIOR MANAGER [facility] [address] [place], [place] [address]E[place], [place] [phone] PCP - General Nurse Practitioner 11/28/24 Ball Shagger Relationship Specialty Start Date End Date Effie Sarmiento, AREA LOSS PREVENTION MANAGER-SENIOR MANAGER [facility] [address] [place] [address] PCP - General Nurse Practitioner 11/28/24 Ball Shagger Relationship Specialty Start Date End Date Effie Sarmiento, AREA LOSS PREVENTION MANAGER-SENIOR MANAGER [facility] [address] [place] [address] PCP - General Nurse Practitioner 11/28/24 Ball Shagger Relationship Specialty Start Date End Date Effie Sarmiento, AREA LOSS PREVENTION MANAGER-SENIOR MANAGER [facility] [address] [place] [address] PCP - General Nurse Practitioner 11/28/24 Ball Shagger Relationship Specialty Start Date End Date Effie Sarmiento L, AREA LOSS PREVENTION MANAGER-SENIOR MANAGER [facility] [address] [place] [address] PCP - General Nurse Practitioner 11/28/24 Ball Shagger Relationship Specialty Start Date End Date Effie Sarmiento, AREA LOSS PREVENTION MANAGER-SENIOR MANAGER [facility] [address] [place] [address] PCP - General Nurse Practitioner 11/28/24 Team [...] content) Reason Comments [facility] 49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 new [...] [place] [address] [place] [address] Phone: tel: fax: Referral ID Status Reason Start Date Expiration Date Visits Requested Visits Authorized [id number] Authorized Specialty Services Required 11/28/2024 11/28/2025 12 12 Reason Comments Nutrition Counseling Follow-up Specialty Diagnoses / Procedures Referred By Valente courtney Referred To Contact Nutrition Diagnoses History of sleeve gastrectomy Nury Potter MD [address] [place] [address] Phone: tel: fax: Referral ID Status Reason Start Date Expiration Date Visits Requested Visits Authorized [id number] Authorized Specialty Services Required 11/28/2024 11/28/2025 12 [...] BE BASED ON THE PRIMARY CLINICAL RECORDS. [facility]. provides no warranty or guarantee of the accuracy or completeness of information in this document.
[2025-04-10 11:37] LABS: Anion Gap 12.5; Blood Urea Nitrogen 18.0 mg/dL (7.0-18.0); Calcium 9.8 mg/dL (8.5-10.1); Carbon Dioxide 28.6 mmol/L (21.0-32.0); Chloride 103 mmol/L (98-107); Estimated GFR (African America >60 (>=60 mL/min/1.73m^2); Estimated GFR (Non-African Ame >60 (>=60 mL/min/1.73m^2); Glucose 103 mg/dL (74-106); Potassium 4.1 mmol/L (3.5-5.1); Sodium 140 mmol/L (136-145)
== END 2025-04-10 10:40 | disposition home or self-care (01) ==
LOC: LAB 10:43
PROVIDERS: PCP Nurse Practitioner; Visit Provider Student in an Organized Health Care Education/Training Program
DX: R79.89 Other specified abnormal findings of blood chemistry (principal); E88.819 Insulin resistance, unspecified
CPT/HCPCS: 36415; 80048; 83525; 83527; 84402; 84403

== ENCOUNTER 2025-05-05 08:56 | Outpatient (OUT) | payer BC, SELFPAY ==
--- OUTSIDE RECORDS SUMMARY | 2025-04-24 10:00 | XMS_ITS | Encounter Summary ---
Author Organization [employer] Sys tem Address [id number] [address] [place] [address] Care Team Providers Care Tour Counselor Name Role Phone Alexia Mancilla APRN-INTEGRITY ANALYST Primary Care Provider [phone] [phone] Reason for Referral * Diagnostic Imaging (Routine) - Pending Review Specialty Diagnoses / Procedures Referred By Contac t Referred To Contact Radiology Diagnoses Incisional hernia, without obstruction or gangrene Procedures CT abdomen and pelvis with contrast Nury Quinteros MD [address] [place] [address] Phone: tel: fax: Referral ID Status Reason Start Date Expiration Date V isits Requested Visits Authorized [id number] Pending Review 04/24/2025 04/24/2026 1 1 Reason for Visit * Reason Comments ESTABLISHED PATIENT go over labs/3 refre bandar visits with dietitian done Encounter Details Date Type Department Care Team (Late st Contact Info) Description 04/24/2025 10:00 AM EDT Office Visit [facility] [place] [address] Nury Quinteros MD [address] [place] [address] Insulin resistance (Primary Dx); Incisional hernia, without obstruction or gangrene; Low 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; Morbid obesity with BMI of 50.0-59.9, adult (CMS-HCC) Social History Tobacco Use Types Packs/Day Years [...] on file documented as of this encounter Last Filed Vital Signs Vital Sign Reading Time Taken Comments Blood Pressure - - Pulse - - Temperature - - Respiratory Rate - - Oxygen Saturation - - Inhaled Oxygen Concentration - - Weight 174.3 kg (384 lb 3.2 oz) 04/24/2025 9:55 AM EDT Height 175.3 cm (5' 9 ) 04/24/2025 9:55 AM EDT Body Mass Index 56.74 04/24/2025 9:55 AM EDT documented in this encounter Progress Notes * Nury Quinteros MD - 04/24/2025 10:00 AM EDT Bariatric Surgery Progress Note Subjective The patient is a 6-year-old male who had a sleeve gastrectomy in [place] in 2009 that was complicated by bowel perforation and required extended hospital stay with multiple surgeries. He was over 500 lb at the time of that surgery, and has since lost a significant amount of his weight, but has been getting some back. His 1st concern is that he has noticed a golf ball size bulge in his upper abdomen about a month ago. It does not go away. It does not cause pain but does occasionally cause an uncomfortable pressuresensation. He is concerned that his hernia has recurred. We talked about getting a CT to determine for sure if that is what occurred, and if it has he would likely need to return to [facility] where it was originally repaired due to the complexity of his abdominal wall. He feels that he has gotten a little off track over the summer. 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 He does nothave much of an appetite in the morning so he has not been having anything to eat until 11:00 a.m..We talked about the importance of getting something in with protein 1st thing in the morning, so heis going to try drinking a protein shake on the way to work, since school resumes next week. Otherwise he is doing good getting an high-protein meals. For exercise he has only been walking recently. He has not been going to the gym over the summer with vacations and other activities. We discussed the importance of resistance training at least 2 days a week. His insulin levels are greatly improved, but still remain elevated. We will increase his dose of metformin. His only side effect from the metformin as a decrease in appetite, otherwise he has not noticed any changes to his bowel habits. We will also increase his testosterone to 3 pumps instead of 2. He still has low energy levels and his testosterone levels are on the low end of normal, and getting them higher we will likely help with weight loss. He plans on making these changes and we will follow up with him in 3 months and recheck his labs atthat time. Objective Ht 175.3 cm (5' 9 ) Wt (!) 174.3 kg (384 lb 3.2 oz) BMI 56.74 kg/m?? General appearance: alert & oriented x3, no acute distress, and cooperative Head: Normocephalic, without obvious abnormality, atraumatic Lungs: normal respiratory effort Abdomen: soft, nontender, nondistended, and surgical scars well healed, nonreducible golf ball sizebulge in the epigastric region suspicious for recurrent incisional hernia Extremities: extremities normal, atraumatic, no cyanosis or edema Skin: Skin color, texture, turgor normal. No rashes or lesions Neurologic: Grossly normal Labs Testosterone total is 335 from 286 before treatment, somewhat increased Testosterone free is 6.3 from 8.16 before treatment, now low Total insulin is 37 from 168 before treatment, remains elevated but improved Hemoglobin/Hematocrit is stable at 15.2/45.98 PSA within normal limits at 1.37 (<4.00 ng/mL normal) Current Medications Current Outpatient Medications Medication Sig Dispense Refill ASHWAGANDHA EXTRACT ORAL Take by mouth. buPROPion SR (WELLBUTRIN SR) 150 mg 12 [...] tablet (4 mg total) by mouth nightly. TURMERIC ORAL Take by mouth. metFORMIN (FORTAMET) 500 MG (OSM) 24 hr tablet Take 3 tablets (1,500 mg total) by mouth daily with breakfast. 270 tablet 2 testosterone (ANDROGEL) 20.25 mg/1.25 gram (1.62 %) gel in metered-dose pump Place 3 Act (60.75 mg total) on the skin in the morning. 75 g 2 No current facility-administered medications for this visit. Assessment Patient is a 50 y.o. male with history of sleeve gastrectomy, morbid obesity, insulin resistance, and borderline low testosterone Plan Increase metformin 1500 mg daily extended release tablets Increase testosterone/AndroGel to 3 pumps applied daily (60.75 mg daily) Eat something high protein within first hour of waking up Increase exercise - get back into the gym in addition to just walking CT abdomen and pelvis to evaluate incisional hernia Follow up in 3 months with labs documented in this encounter Plan of Treatment Upcoming Encounters Date Type Department Care Team (Late st Contact Info) Description 07/24/2025 9:00 AM EST Office Visit [facility] [address] [place] [address] Nury Quinteros MD [address] [place] [address] Scheduled Orders Name Type Priority Associated Diagnoses Orde r Schedule CT abdomen and pelvis with contrast Imaging Routine Incisional hernia, without obstruction or gangrene Expected: 05/01/2025 (Approximate), Expires: 04/24/2026 CBC auto differential Lab Routine Low 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 Expected: 07/25/2025 (Approximate), Expires: 04/24/2026 Basic Metabolic Panel Lab Routine Low 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 Expected: 07/25/2025 (Approximate), Expires: 04/24/2026 Prostatic specific antigen screen Lab Routine Low 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 Expected: 07/25/2025 (Approximate), Expires: 04/24/2026 Testosterone, Total and Free, S Lab Routine Low 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 Expected: 07/25/2025 (Approximate), Expires: 04/24/2026 Insulin, Free and Total, Serum Lab Routine Low 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 Expected: 07/25/2025 (Approximate), Expires: 04/24/2026 documented as of this encounter Visit Diagnoses Diagnosis Insulin resistance- Primary Other abnormal glucose Incisional hernia, without obstruction or gangrene Low 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 Morbid obesity with BMI of 50.0-59.9, adult (CMS-HCC) documented in this encounter Care Teams Tour Counselor Relationship Specialty Start Date End Date Alexia Mancilla APRN-INTEGRITY ANALYST [address] [place] [address] [place] [address] PCP - General Nurse Practitioner 11/28/24 documented as of this encounter
--- OUTSIDE RECORDS SUMMARY | 2025-05-05 08:58 | XMS_ITS | Clinical Summary ---
Author Organization [facility] Address [address] [facility], [address] [place] [address] Care Team Providers Care Microeconomics Professor Name Role Phone Unavailable Primary Care Provider [...] 2022 FIT/FOBT: Average risk 2022 Fecal-DNA (Cologuard): [place] ge risk 2022 Sigmoidoscopy/CT colonography 2022 COVID-19 [...]
--- OUTSIDE RECORDS SUMMARY | 2025-05-05 08:59 | XMS_ITS | Encounter Summary ---
Author Organization [employer] tem Address [facility]-[id number] [address] [place] [address] Care Team Providers Care Director Of Publications Name Role Phone Alexia Mancilla Donato LINDQUIST-RECONCILIATION MANAGER Primary Care Provider [phone] [phone] Encounter Details Date Type Department Care Team (Late st Contact Info) Description 04/23/2025 Orders Only [facility] [address] [address] Ref Prov, [place] [address] Social History Tobacco Use Types Packs/Day Years [...] Visit [facility] [address] [place] [address] Nury Quinteros MD [address] [place] [address] documented as of this encounter Procedures Procedure Name Priority Date/Time Associated Diagnosis Comments MULTIPLE LABS Routine 04/23/2025 9:35 AM EDT MULTIPLE LABS Routine 04/23/2025 9:03 AM EDT documented in this encounter Results * Multiple labs (04/23/2025 9:35 AM EDT) us Not In System Ref Prov [place] IMAGING Final Res ult Performing Organization Address [facility] Co de Phone Number MANUALLY TRANSCRIBED RESULTS * Multiple labs (04/23/2025 9:03 AM EDT) us Not In System Ref Prov [place] IMAGING Final Res ult Performing Organization Address [facility] de Phone Number MANUALLY TRANSCRIBED RESULTS documented in this encounter Visit Diagnoses Not on filedocumented in this encounter Care Teams Director Of Publications Relationship Specialty Start Date End Date Alexia Mancilla, PROJECT MANAGER/TEAM COACH-RECONCILIATION MANAGER [address] [place] [address] [place] [address] PCP - General Nurse Practitioner 11/28/24 documented as of this encounter"
--- OUTSIDE RECORDS SUMMARY | 2025-05-05 08:59 | XMS_ITS | Clinical Summary ---
Author Organization [facility] Address [address] [place] [address] Care Team Providers Care Shift Superintendent Name Role Phone Lisseth Blank MD Primary [...] (#1) 2025 Medical Devices Implanted Type Area Linecasting Machine Keyboard Operator Device Identifier Shelf Expiration Date Model / Serial / Lot Mesh Srg Parietex 12cm 12cm - [id number] Implanted:Qty: 1 on 11/20/2012 at [facility] Mesh N/A: [facility] 05/10/2014 [id number] / / [id number] Description:Parietex optimiz ed composite mesh 12cm Mesh Srg Surgipro 14x9in Niels - [id number] Implanted:Qty: 1 on 11/20/2012 at [facility] Mesh [facility] 04/09/2017 [id number] / / [id number] Description:surgipro monofil ament polypropylene mesh Procedures Procedure Name Priority Date/Time Associated Diagnosis Comments BASIC METABOLIC PANEL Routine 11/26/2012 5:38 AM EDT from Last 3 Months or Most Recently Relevant to Health Maintenance Results * (ABNORMAL) BASIC METABOLIC PNL (11/26/2012 5:38 AM EDT) Glucose 89 65 - 100 mg/dL [facility] BUN 7(L) 10 - 25 mg/dL [facility] Creatinine 0.74 0.70 - 1.40 mg/dL [facility] Sodium 139 135 - 146 mmol/L [facility] Potassium 3.4(L) 3.5 - 5.0 mmol/L [facility] Chloride 96(L) 98 - 110 mmol/L [facility] CO2 34(H) 23 - 32 mmol/L [facility] Anion Gap 9 0 - 15 mmol/L [facility] Calcium 8.6 8.5 - 10.5 mg/dL [facility] Blood specimen (specimen) BLOOD SPECIMEN / Unknown 11/26/2012 5:38 AM EDT 11/26/2012 5:39 AM EDT us Tam See MD LABORATORY Final Resul t [facility] [address] [facility] [place] [address] from Last 3 Months or Most Recently Relevant to Health Maintenance Insurance MEDICAID [place] MEDICARE Care Teams Shift Superintendent Relationship Specialty Start Date End Date Lisseth Blank MD [address] [place] [address] PCP - General 08/01/10
--- OUTSIDE RECORDS SUMMARY | 2025-05-05 08:59 | XMS_ITS | Clinical Summary ---
Author Organization [employer] tem Address [id number] [address] [place] [address] Care Team Providers Care House Sitter Name Role Phone Alexia Mancilla APRN-DOUGH CUTTER Primary Care Provider [phone] Allergies No known active allergies Medications cranberry [...] by mouth in the morning. 5 Active TURMERIC ORAL Take by mouth. A ctive ASHWAGANDHA EXTRACT ORAL Take by mouth. Ac tive testosterone (ANDROGEL) 20.25 mg/1.25 gram (1.62 %) gel in metered-dose pumpIndications: Low 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 Place 3 Act (60.75 mg total) on the skin in the morning. 75 g 2 5 Active metFORMIN (FORTAMET) 500 MG (OSM) 24 hr tablet Take 3 tablets (1,500 mg total) by mouth daily with breakfast. 270 tablet 2 5 Active metFORMIN (FORTAMET) 1000 MG (OSM) 24 hr tablet Take 1 tablet (1,000 mg total) by mouth daily with breakfast. 90 tablet 3 5 025 Discontin ued(Reord er) testosterone (ANDROGEL) 20.25 mg/1.25 gram (1.62 %) gel in metered-dose pumpIndications: Low 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 Place 2 Act (40.5 mg total) on the skin in the morning. 75 g 5 025 Discontin ued(Reord er) Encounters Date Type Department Care Team Description 04/24/2025 10:00 AM EDT Office Visit [facility] [address] [place] [phone] Nury Quinteros MD Insulin resistance (Primary Dx); Incisional hernia, without obstruction or gangrene; Low 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; Morbid obesity with BMI of 50.0-59.9, adult ([facility]) 04/24/2025 Refill [facility] [address] [place] [address] Nury Quinteros MD 04/24/2025 Travel 04/23/2025 Orders Only [facility] [address] [place] [phone] Ref Prov, Not In System 04/02/2025 Orders Only [facility] [address] [phone] Ref Prov, Not In System 03/19/2025 Orders Only [facility] [address] [facility] [address] [place] [address] Ref Prov, Not In System 03/16/2025 Orders Only [facility] [address] [facility] [address] [place] [phone] Nury Quinteros MD Low 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 03/05/2025 Refill [facility] [address] [facility] [place] [address] Nury Quinteros MD Low 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 02/10/2025 10:00 AM EDT Telemedicine [facility] [address] [facility] [address] [place] [phone] Miladys Quinn LD Dietary counseling and surveillance (Primary Dx); Morbid obesity ([facility]) from Last 3 Months Family History Medical [...] Mass Index 56.74 04/24/2025 9:55 AM EDT Plan of Treatment Upcoming Encounters Date Type Department Care Team (Late st Contact Info) Description 07/24/2025 9:00 AM EST Office Visit [facility] [address] [place] [address] Nury Quinteros MD [address] [place] [address] Health Maintenance Due Date Last Done Comments Depression Screening 1989 DTaP,Tdap and Td Vaccines (1 - Tdap) 1996 COVID-19 Vaccine (3 - 2023-2 5 season) 2024 11/12/2020, 10/22/2020 Influenza Vaccine 05/11/2025 07/08/2024, , 06/07/2022, Additional history exists Adult BMI Follow Up Plan 12/09/2025 12/09/2024 Adult BMI Screening 04/24/2026 04/24/2025 Tobacco Screening 04/24/2026 04/24/2025 Medical Devices Not on file Procedures Procedure Name Priority Date/Time Associated Diagnosis Comments MULTIPLE LABS Routine 04/23/2025 9:35 AM EDT MULTIPLE LABS Routine 04/23/2025 9:03 AM EDT MULTIPLE LABS Routine 04/02/2025 3:07 PM EDT MULTIPLE LABS Routine 04/02/2025 2:58 PM EDT MULTIPLE LABS Routine 03/19/2025 1:37 PM EDT from Last 3 Months Results * Multiple labs (04/23/2025 9:35 AM EDT) Only the most recent of5 resultswithin the time period is included. us Not In System Ref Prov [place] IMAGING Final Res ult MANUALLY TRANSCRIBED RESULTS from Last 3 Months Insurance ANTHEM Care Teams House Sitter Relationship Specialty Start Date End Date Alexia Mancilla, CHURN DRILL OPERATOR-DOUGH CUTTER [address] [place], [place] [address] [address] PCP - General Nurse Practitioner 11/28/24
--- OUTSIDE RECORDS SUMMARY | 2025-05-05 08:59 | XMS_ITS | Encounter Summary ---
Author Organization [facility] [employer] Sys [employer] Address [id number] [address] [place] [address] Care Team Providers Care Chief Estimator Name Role Phone Alexia Mancilla Primary Care Provider [phone] [phone] Encounter Details Date Type Department Care Team (Latest Contact Info) Description 04/24/2025 Travel Social History Tobacco Use Types Packs/Day Years [...] Description 07/24/2025 9:00 AM EST Office Visit [facility] [address] [place] [address] Nury Quinteros MD [address] [place] [address] documented as of this encounter Visit Diagnoses Not on filedocumented in this encounter Care Teams Chief Estimator Relationship Specialty Start Date End Date Alexia Mancilla APRN-CNP [address] [place], [place] [address] [address] PCP - General Nurse Practitioner 11/28/24 documented as of this encounter
--- OUTSIDE RECORDS SUMMARY | 2025-05-05 08:59 | XMS_ITS | Encounter Summary ---
Author Organization [employer] Address [facility]-[id number] [address] [place] [address] Care Team Providers Care Sports Medicine Coordinator Name Role Phone Shanita MancillaNoy LINDQUIST-ASBESTOS SIDING INSTALLER Primary Care Provider [phone] [phone] Reason for Visit * Reason Onset Date Comments Med Refill 03/05/2025 Encounter Details Date Type Department Care Team (Late st Contact Info) Description 03/05/2025 Refill [facility] [address] [place] [phone] Nury Quinteros MD [address] [place] [address] Low 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 Social [...] Office Visit [facility] [address] [place] [phone] Nury Quinteros MD [address] [place] [address] documented as of this encounter Visit Diagnoses Diagnosis Low 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 documented in this encounter Care Teams Sports Medicine Coordinator Relationship Specialty Start Date End Date Alexia Mancilla, WINCH DRIVER-ASBESTOS SIDING INSTALLER [address] [place] [address] [place] [address] PCP - General Nurse Practitioner 11/28/24 documented as of this encounter
--- OUTSIDE RECORDS SUMMARY | 2025-05-05 08:59 | XMS_ITS | Encounter Summary ---
Author Organization [employer] Address [facility]-[id number] [address] [place] [address] Care Team Providers Care Applications Systems Engineer Name Role Phone Alexia Mancilla Donato LINDQUIST-OFFICE ADMINISTRATOR Primary Care Provider [phone] [phone] Encounter Details Date Type Department Care Team (Late st Contact Info) Description 03/19/2025 Orders Only [facility] [address] [phone] Ref Prov, [place] [address] Social History Tobacco Use Types Packs/Day Years [...] Visit [facility] [address] [place] [phone] Nury Quinteros MD [address] [place] [address] documented as of this encounter Procedures Procedure Name Priority Date/Time Associated Diagnosis Comments MULTIPLE LABS Routine 03/19/2025 1:37 PM EDT documented in this encounter Results * Multiple labs (03/19/2025 1:37 PM EDT) us Not In System Ref Prov [place] IMAGING Final Res ult MANUALLY TRANSCRIBED RESULTS documented in this encounter Visit Diagnoses Not on filedocumented in this encounter Care Teams Applications Systems Engineer Relationship Specialty Start Date End Date Alexia Mancilla, SENIOR ECONOMIST-OFFICE ADMINISTRATOR [address] [place] [address] [place] [address] PCP - General Nurse Practitioner 11/28/24 documented as of this encounter
--- OUTSIDE RECORDS SUMMARY | 2025-05-05 08:59 | XMS_ITS | Patient Health Record ---
Author Organization [facility] Address [address] [place] [address] Care Team Providers Care Credit Underwriter Name Role Phone Jose Romero Unavailable [phone] Allergies No Known Allergies Reason For Referral [...] Problem Status W/U Status Risk Notes Problem [id number] Unilateral prima ry osteoarthritis, left hip (M16.12) Active confirmed Problem [id number] Spinal stenosis, lumbosacral region (M48.07) Active confirmed Problem [id number] Other intervertebral disc degeneration, lumbosacral region (M51.37) Active confirmed Problem [id number] Lumbar spondylos is (M47.816) Active confirmed Plan Of Treatment No Information Insurance Providers Payer Name Payer Address Payer Phone Subscriber Number Group Number Insured Name Patient Relationship to Insured Coverage Start Date Coverage End Date [facility] [address] [place] [address] [id number] RAKESH PIÑA Self - patient is the insured Medical (General) History Medical History History ICD Code Sleep apnea CPAP Machine: Do you use the CPAP machine? Yes Surgical History Surgery Date(Month/Year) Bariatric 2009
--- OUTSIDE RECORDS SUMMARY | 2025-05-05 08:59 | XMS_ITS | Clinical Summary ---
Author Organization [facility] Address [address] [place] [address] Care Team Providers Care Hand Embroiderer Name Role Phone Lisseth Blank MD Primary Care Provider [phone] Allergies Active Allergy Reactions Criticality Noted Date [...] seasonal, injectable, preservative fr ee 07/08/2024 Novel [id number], preservative-free 08/18 Pneumococcal Polysaccharide PPSV23 03/10/2019 Family [...] 07/08/2024, 2022, 06/07/2022 Insurance BCBS Care Teams Hand Embroiderer Relationship Specialty Start Date End Date Lisseth Blank MD [address] [place] [id number] PCP - General Family Medicine 04/05/23
--- OUTSIDE RECORDS SUMMARY | 2025-05-05 08:59 | XMS_ITS | Encounter Summary ---
Author Organization [facility] [employer] [facility] Address [id number] [address] [place] [address] Care Team Providers Care Cook House Laborer Name Role Phone Alexia Mancilla Donato LINDQUIST-MACHINE PULLER OVER Primary Care Provider [phone] Reason for Visit * Reason Comments Med Change Request Encounter Details Date Type Department Care Team (Late Contact Info) Description 04/24/2025 Refill [facility] [address] [place] [phone] Nury Quinteros MD [address] [place] [address] Social History Tobacco Use Types Packs/Day Years [...] Encounters Date Type Department Care Team (Late Contact Info) Description 07/24/2025 9:00 AM EST Office Visit [facility] [address] [place] [phone] Nury Quinteros MD [address] [place] [address] documented as of this encounter Visit Diagnoses Not on filedocumented in this encounter Care Teams Cook House Laborer Relationship Specialty Start Date End Date Alexia Mancilla, CREW SCHEDULER-MACHINE PULLER OVER [address] [place] [address] [place] [address] PCP - General Nurse Practitioner 11/28/24 documented as of this encounter
--- OUTSIDE RECORDS SUMMARY | 2025-05-05 08:59 | XMS_ITS | Encounter Summary ---
Author Organization [employer] [facility] Address [id number] [address] [place] [address] Care Team Providers Care Chalk Machine Operator Name Role Phone Alexia Mancilla Donato LINDQUIST-INSIDE SALES ENGINEER Primary Care Provider [phone] Encounter Details Date Type Department Care Team (Late st Contact Info) Description 04/02/2025 Orders Only [facility]-B[facility]ric [address] [address] Ref Prov, [place] [address] Social History Tobacco Use Types Packs/Day Years [...] Visit [facility] [address] [place] [phone] Nury Quinteros MD [address] [place] [address] documented as of this encounter Procedures Procedure Name Priority Date/Time Associated Diagnosis Comments MULTIPLE LABS Routine 04/02/2025 3:07 PM EDT MULTIPLE LABS Routine 04/02/2025 2:58 PM EDT documented in this encounter Results * Multiple labs (04/02/2025 3:07 PM EDT) us Not In System Ref Prov [facility] Final Res ult Performing Organization Address [facility] Co de Phone Number MANUALLY TRANSCRIBED RESULTS * Multiple labs (04/02/2025 2:58 PM EDT) us Not In System Ref Prov [facility] Final Res ult Performing Organization Address [facility] de Phone Number MANUALLY TRANSCRIBED RESULTS documented in this encounter Visit Diagnoses Not on filedocumented in this encounter Care Teams Chalk Machine Operator Relationship Specialty Start Date End Date Alexia Mancilla, DELIVERY CREW WORKER-INSIDE SALES ENGINEER [address] [place] [address] [place] [address] PCP - General Nurse Practitioner 11/28/24 documented as of this encounter
--- NOTE | 2025-05-05 09:01 | CT_ITS ---
The [address] [address] Patient Name: RAKESH PIÑA MRN: [id number] date: 1975 Sex: M Assigned Patient Location: CT Current Patient Location: CT Accession/Order Number: [id number] Exam Date: 05/05/2025 10:15 Report Date: 05/05/2025 11:41 At the request of: SKYLAR POTTER MD Procedure: CT abdomen pelvis w con CT ABDOMEN AND PELVIS WITH CONTRAST COMPARISON: 01/07/2024 CLINICAL DATA: Epigastric bulge/hard lump for the past month. Previous ventral hernia repair. Spiral images were obtained through the abdomen and pelvis following oral and 100 MLO Omnipaque 300. A marker was placed at the site of clinical concern. This CT exam was performed using one or more following dose reduction techniques: Automated exposure control, adjustment of the mA and/or kV according to patient size, or use of iterative reconstruction technique. Limited cuts through the lung bases show minimal linear scarring or atelectasis. No calcified gallstones are identified. No intrahepatic masses are seen. The spleen, pancreas and adrenal glands show no acute findings. There are symmetric renal nephrograms, without hydronephrosis. There are parapelvic left and right cortical cysts. There is minimal atherosclerotic plaque at the aorta and iliac arteries. There are a few small lymph nodes. No ascites is seen. There is similar thickening at the midline of the rectus muscles where there is fatty density and calcifications extending from the lower abdomen down to the upper pelvis over a length of approximately 12 cm . This is likely secondary to previous surgery. . Superficial to this area at the upper abdomen, there is a new hypodense nodular area within the subcutaneous fat measuring 5.0 x 3.1 x 3.7 cm in size. Hounsfield measurements are not compatible with simple fluid. This correlates with the site of clinical concern. There are normal caliber small bowel loops. There is mild stool along the colon. There are left-sided colonic diverticula. There is slight levoscoliotic curvature as well as multilevel degenerative changes throughout the spine. Images through the pelvis show normal caliber small bowel loops. No appendiceal inflammation is seen. There is mild distal colonic stool. Descending and sigmoid diverticula are noted, without associated active inflammation. The prostate is not significantly enlarged. No urinary bladder abnormalities are seen. There is no ascites. Mild degenerative changes are visualized at the hips. There is also partial ankylosis of the SI joints. CT/CT abdomen pelvis w con IMPRESSION: RENAL CYSTS. NO BOWEL OR URINARY TRACT OBSTRUCTION. DIVERTICULOSIS. CONTINUED CALCIFICATION AT THE RECTUS MUSCLE WITH DEVELOPING OVERLYING SUBCUTANEOUS NODULE AT THE SITE OF CLINICAL CONCERN. THIS IS NOT DEFINITELY SIMPLE FLUID. ULTRASOUND FOLLOW-UP COULD BE CONSIDERED FOR FURTHER ASSESSMENT. Impression dictated by: Amanda Garcia M.D. 05/05/2025 11:41 AM Dictation Location: [employer] Electronically authenticated by: [id number] Date: 05/05/2025 11:41
--- OUTSIDE RECORDS SUMMARY | 2025-05-05 09:02 | XMS_ITS | CCD ---
Author Organization [facility] CliniSyar Care Team Providers Care Automation Operator Name Role Phone MAZIN CANO Admitting [...] Attending Unavailable TorstenEffie Primary Care Physician TORSTENEFFIE PORRAS Referring Unavailable TORSTEN, EFFIE Referring Unavailable Torsten, [...] Primary Care Provider PEDRO CONTE Attending Unavailable RUSHERPEDRO Attending Unavailable RUSPEDRO WHITTINGTON Attending Unavailable Torsten TRAVEL JOURNALIST-DIALYSIS PATIENT CARE TECHNICIAN, Effie Sewell Primary Care Provider RAAD POTTER Referring Unavailable TORSTEN, EFFIE Sewell Primary Care Unavailable Torsten TRAVEL JOURNALIST-DIALYSIS PATIENT CARE TECHNICIANEffie Primary Care Provider Sita CORRIGAN, Andrius Guardado Attending Unavailable Giedraitis , Andrius Kennedyytlynne Attending Unavailable Giedraitis , Andrius Kennedyytlynne Attending Unavailable Giedraitis , Andrius Geo Attending Unavailable Giedraitis , Andrius Vytautkellee Attending Unavailable Gieditis , Andrius Kennedyytlynne Attending Unavailable Sharmilaeditis , Andrius Vytlynne Attending Unavailable QUINNIRIS Attending Unavailable TORSTEN, EFFIE L Referring Unavailable TORSTEN, EFFIE L Primary Care Unavailable QUINN IRIS Attending Unavailable TORSTEN, EFFIE L Referring Unavailable TORSTEN, EFFIE L Primary Care Unavailable QUINN, IRIS Attending Unavailable TORSTEN, EFFIE L Referring Unavailable TORSTEN, EFFIE L Primary Care Unavailable Jose Carlos Whitt DO Attending Provider Torsten PLANT AND EQUIPMENT WORKER-C, Effie Tello Primary Care Provider NURY POTTER Attending Unavailable TORSTEN, EFFIE L Primary Care Unavailable POTTERNURY BAIRD N Attending Unavailable TORSTEN, EFFIE L Referring Unavailable TORSTEN, EFFIE L Primary Care Unavailable POTTERNURY N Attending Unavailable TORSTEN, EFFIE L Referring Unavailable TORSTEN, EFFIE L Primary Care Unavailable Allergies Allergy Classification Reported Allergen(s) Allergy Type Date of Onset Reaction(s) Facility (7 sources) Other Propensity to adverse reactions 3 [facility] Work Phone: Medications Current Medications Medication Drug Class(es) Dates Sig (Normalized) Sig (Original) ASHWAGANDHA EXTRACT ORAL (1 source) ASHWAGANDHA EXTRACT ORAL Take by mouth. Active 12 hr buPROPion hydrochloride 150 mg extended release oral tablet (4 sources) Aminoketone take 1 tablet by mouth every twelve hours in the morning, then take 1 tablet by mouth at bedtime buPROPion SR (WELLBUTRIN SR) 150 mg 12 hr tablet Take 1 tablet (150 mg total) by mouth in the morning and 1 tablet (150 mg total) before bedtime. Active celecoxib 200 mg oral capsule (10 sources) Nonsteroidal Anti-inflammatory Drug Start: 12-27-2024 take 1 capsule by mouth in the morning celecoxib (CeleBREX) 200 mg capsule Take 1 capsule (200 mg total) by mouth in the morning. 12/27/2024 Active take 1 capsule by mouth in the m orning celecoxib (CeleBREX) 50 MG capsule Take 50 mg by mouth in the morning and 50 mg before bedtime. Active Cranberry preparation (12 sources) Non-Standardized Food Allergenic Extract, Non-Standardized Plant Allergenic Extract Start: 03-19-2023 take 1 tablet by mouth once daily cranberry oral capsule See Instructions, Refill(s) 0, 1 tablet daily Start Date: 03/19/23 Status: Ordered cranberry extrac t (CRANBERRY JUICE POWDER) 425 mg capsule Take by mouth. Active CRANBERRY PO Dain e by mouth Active cyanocobalamin, vitamin B-12, (VITAMIN B-12 ORAL) (4 sources) cyanocobalamin, vitamin B-12, (VITAMIN B-12 ORAL) Vitamin B-12 Active famotidine 20 mg oral tablet (7 sources) Histamine-2 Receptor Antagonist Start: 03-03-20 take 1 tablet by mouth at bedtime famotidine (Pepcid) 20 MG tablet Take 20 mg by mouth at bedtime. 03/03/2022 Active Fish Oils (8 sources) Start: 03-19-20 23 take 1 capsule by mouth once daily [...] bromide 0.021 mg/actuat metered dose nasal spray (4 sources) Anticholinergic ipratropium (ATROVENT) 21 mcg (0.03 %) nasal spray Administer 1 spray into each nostril as needed. Active loratadine 10 mg oral capsule (6 sources) Start: 03-19-2023 take 1 capsule by mouth once daily as needed loratadine 10 mg oral capsule 10 mg = 1 cap(s), Oral, Daily, PRN Allergy symptoms, # 10 cap(s), Refills(s) 0 Start Date: 03/19/23 Status: Ordered loratadine (CLAR ITIN) 10 mg tablet Take 1 tablet (10 mg total) by mouth as needed. Active meclizine hydrochloride 25 m g chewable tablet (11 sources) Antiemetic meclizine (ANTIV ERT) 25 mg tablet Chew 1 tablet (25 mg total) and swallow 3 (three) times a day as needed. Active Meclizine HCl 25 MG chewable tablet Chew 1 tablet 1 (one) time each day at the same time. Active osmotic 24 hr metFORMIN hydrochloride 500 mg extended release oral tablet (5 sources) Biguanide Start: 04-24-2025 take 3 tablets by mouth once daily at breakfast metFORMIN (FORTAMET) 500 MG (OSM) 24 hr tablet Take 3 tablets (1,500 mg total) by mouth daily with breakfast. 270 tablet 2 04/24/2025 Active Start: 01-23-2025 End: 04-24-2025 take 1 tablet by mouth once daily at breakfast metFORMIN (FORTAMET) 1000 MG (OSM) 24 hr tablet Take 1 tablet (1,000 mg total) by mouth daily with breakfast. 90 tablet 3 01/23/2025 04/24/2025 Discontinued (Reorder) methylPREDNISolone 4 mg oral tablet (1 source) Corticosteroid Start: 03-19-2023 End: 03-25-2023 Medrol 4 mg Tab = 1 packet(s), Oral, As Directed, as directed on package labeling, X 6 day(s), # 21 tab(s), Refills(s) 0, Pharmacy: [facility]/pharmacy #[id number], 176.5, cm, 03/19/23 13:15:00 [...] omega-3 fatty acids-fish oil 300-1,000 mg capsule (4 sources) take 3-300 capsules by mouth in the morning omega-3 fatty acids-fish oil 300-1,000 mg capsule Take by mouth in the morning. Active omeprazole 40 mg delayed release oral capsule (11 sources) Proton Pump Inhibitor omeprazole (PriLOSEC) 40 mg capsule Take 1 capsule (40 mg total) by mouth as needed. Active PARoxetine hydrochloride 10 mg oral tablet (13 sources) Serotonin Reuptake Inhibitor Start: 03-19-2023 take 1 tablet by mouth once daily paroxetine 10 mg Tab 10 mg = 1 tab(s), Oral, Daily, # 90 tab(s), Refills(s) 3, Pharmacy: [facility]/pharmacy #[id number], 176.5, cm, 07/26/23 9:32:00 EST, Height/Length Dosing, 187.2, kg, 07/26/23 9:32:00 EST, Weight Dosing Start Date: 07/26/23 Status: Ordered phentermine hydrochloride 37.5 mg oral tablet (9 sources) Sympathomimetic Amine Anorectic Start: 07-26-2023 take 1 tablet by mouth once daily phentermine 37.5 mg Tab 37.5 mg = 1 tab(s), Oral, Daily, # 30 tab(s), Refills(s) 0, Pharmacy: [facility] #[id number], 176.5, cm, 07/26/23 9:32:00 EST, Height/Length Dosing, 187.2, kg, 07/26/23 9:32:00 EST, Weight Dosing Start Date: 07/26/23 Status: Ordered Start: 03-19-2023 End: 04-18-2023 take 1 tablet by mouth once daily phentermine 37.5 mg Tab 37.5 mg = 1 tab(s), Oral, Daily, X 30 day(s), # 30 tab(s), Refills(s) 0, Pharmacy: [facility]/pharmacy #[id number], 176.5, cm, 03/19/23 13:15:00 EDT, Height/Length Dosing Start Date: 03/19/23 Stop Date: 04/18/23 Status: Ordered 60 actuat testosterone 20.25 mg/actuat topical gel (6 sources) Androgen Start: 04-24-2025 testosterone ( ANDROGEL) 20.25 mg/1.25 gram (1.62 %) gel in metered-dose pump Indications: Low 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 Place 3 Act (60.75 mg total) on the skin in the morning. 75 g 2 04/24/2025 Active Start: 01-23-2025 End: 04-24-2025 testosterone (ANDROGEL) 20.2 5 mg/1.25 gram (1.62 %) gel in metered-dose pump Indications: Low 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 Place 2 Act (40.5 mg total) on the skin in the morning. 75 g 03/16/2025 04/24/2025 Discontinued (Reorder) tiZANidine 4 mg oral tablet (10 sources) Central alpha-2 Adrenergic Agonist Start: 12-27-2024 take 1 tablet by mouth once daily tiZANidine (ZANAFLEX) 4 mg tablet Take 1 tablet (4 mg total) by mouth nightly. 12/27/2024 Active tiZANidine (Mayito flex) 2 MG capsule Take by mouth as needed at bedtime for muscle spasms Active Turmeric extract (1 source) TURMERIC ORAL Ta ke by mouth. Active Problems Active Problems Problem Classification Problem Date Documented Date Episodic/Chronic Abdominal hernia (3 sources) Incisional hernia; Translations: [Incisional hernia without obstruction or gangrene] Onset: 04-24-2025 04-24-2025 Episodic Acquired foot deformities (4 sources) Acquired varus [...] metabolic disorders (2 sources) Body mass index 40+ - severely obese; Translations: [Morbid (severe) obesity due to excess calories] 11-28-2024 Chronic Other nutritional; endocrine; and metabolic disorders (2 sources) Insulin resistance; Translations: [Insulin resistance] 01-23-2025 Chronic Other upper respiratory disease (7 sources) [...] absence of stomach [part of]] 11-28-2024 Episodic Screening and history of mental [...] Patient encounter status 03-19-2023 Unclassified (1 source) Nutrition Counseling Onset: 12-09-2024 Unclassified (1 source) Insulin resistance, unspecified; Translations: [Insulin resistance, unspecified] Onset: 01-23-2025 Unclassified (1 source) ESTABLISHED PATIENT Onset: 01-23-2025 Unclassified (1 source) New Patient Onset: 11-28-2024 Past or Other Problems Problem Classification Problem [...] source) Paresthesia of foot 07-26-2023 Episodic Other screening for suspected conditions (not mental disorders or infectious disease) (4 sources) Decreased testosterone level ; Translations: [Other specified abnormal findings of blood chemistry] Onset: 01-23-2025 01-23-2025 Episodic Other upper respiratory disease (1 source) Nasal congestion; Translations: [NASAL CONGESTION] Onset: 02-03-2022 Episodic Other upper respiratory disease (7 sources) Hoarse; Translations: [Dysphonia] Onset: 04-05-2023 04-05-2023 Episodic Otitis media and related conditions (20 sources) Dysfunction of bilateral eustachian tubes; Translations: [Unspecified Eustachian tube disorder, bilateral] Onset: 04-05-2023 04-05-2023 Episodic Residual codes; unclassified (3 sources) Acquired absence of stomach [part of]; Translations: [Acquired absence of stomach (part of)] Onset: 11-28-2024 Episodic Superficial injury; contusion (6 sources) Contusion of left little finger without damage to nail, initial encounter; Translations: [Contusion of left ring finger without damage to nail, initial encounter] Onset: 11-10-2021 Episodic Unclassified (1 source) History of sleeve gastrectomy 11-28-2024 Results Test Name Value Interpretation Reference Range Facility CBC AND AUTO DIFFon 12-02-19 ABSOLUTE BASOPHIL 0.2 X10E9/L Normal 0.0-0.2 [facility] Comment on above: Performed By: #### 4 8615-9, 48617-8 #### [facility] ([id number]) [address] [place] [address] 41891 #### LIVR, 60159-1, 2731-8, 2498-4, HA1C, 2132-9, 3016-3, CBCA #### [facility] ([id number]) [address], [address] [place] [address] ABSOLUTE NEUTROPHIL 5.2 X10E9/L Normal 1.5-6.6 [facility] Comment on above: Performed By: #### 4 8615-9, 02961-5 #### [facility] ([id number]) [address] [place] [address] 24382 #### LIVR, 88679-9, 2731-8, 2498-4, HA1C, 2-9, 3016-3, CBCA #### [facility] ([id number]) [address], [address] [place] [address] Basophils/100 WBC (Bld) 2.6 % Normal [facility] Comment on above: Performed By: #### 4 8615-9, 55353-4 #### [facility] ([id number]) [address] [place] [address] 86333 #### LIVR, 88866-7, 2731-8, 2498-4, HA1C, 2132-9, 3016-3, CBCA #### [facility] ([id number]) [address], [address] [place] [address] Eosinophils (Bld) [#/Vol] 0.1 10*3/uL Normal 0.0-0.4 [facility] Comment on above: Performed By: #### 4 8615-9, 53047-1 #### [facility] ([id number]) [address] [place] [address] 03579 #### LIVR, 35517-9, 2731-8, 2498-4, HA1C, 2132-9, 3016-3, CBCA #### [facility] ([id number]) [address], [address] [place] [address] Eosinophils/100 WBC (Bld) 1.5 % Normal [facility] Comment on above: Performed By: #### 4 8615-9, 53232-7 #### [facility] ([id number]) [address] [place] [address] 40333 #### LIVR, 74427-6, 2731-8, 2498-4, HA1C, 2-9, 3016-3, CBCA #### [facility] ([id number]) [address], [address] [place] [address] Erythrocyte distribution width (RBC) [Ratio] 16.0 % High 11.5-15.0 [facility] Comment on above: Performed By: #### 4 8615-9, 18694-2 #### [facility] ([id number]) [address] [place] [address] 78896 #### LIVR, 45404-3, 2731-8, 2498-4, HA1C, 2132-9, 3016-3, CBCA #### [facility] ([id number]) [address], [address] [place] [address] Hematocrit (Bld) [Volume fraction] 44.1 % Normal 39-49 [facility] Comment on above: Performed By: #### 4 8615-9, 89774-7 #### [facility] ([id number]) [address] [place] [address] 44066 #### LIVR, 54209-8, 2731-8, 2498-4, HA1C, 2131-9, 3016-3, CBCA #### [facility] ([id number]) [address], [address] [place] [address] Hemoglobin (Bld) [Mass/Vol] 14.6 g/dL Normal 13.0-17.0 [facility] Comment on above: Performed By: #### 4 8615-9, 40553-9 #### [facility] ([id number]) [address] [place] [address] 06081 #### LIVR, 67513-5, 2731-8, 2498-4, HA1C, 2131-9, 3016-3, CBCA #### [facility] ([id number]) [address], [address] [place] [address] Lymphocytes (Bld) [#/Vol] 1.3 10*3/uL Normal 1.0-3.5 [facility] Comment on above: Performed By: #### 4 8615-9, 42125-1 #### [facility] ([id number]) [address] [place] [address] 96574 #### LIVR, 03535-7, 2731-8, 2498-4, HA1C, 2131-9, 3016-3, CBCA #### [facility] ([id number]) [address], [address] [place] [address] Lymphocytes/100 WBC (Bld) 18.4 % Normal [facility] Comment on above: Performed By: #### 4 8615-9, 36236-8 #### [facility] ([id number]) [address] [place] [address] 35811 #### LIVR, 88343-6, 2731-8, 2498-4, HA1C, 2132-9, 3016-3, CBCA #### [facility] ([id number]) [address], [address] [place] [address] MCH (RBC) [Entitic mass] 28.3 pg Normal 27-34 [facility] Comment on above: Performed By: #### 4 8615-9, 97375-2 #### [facility] ([id number]) [address] [place] [address] 51708 #### LIVR, 24062-7, 2731-8, 2498-4, HA1C, 2-9, 3016-3, CBCA #### [facility] ([id number]) [address], [address] [place] [address] MCHC (RBC) [Mass/Vol] 33.1 g/dL Normal 32-36 [facility] Comment on above: Performed By: #### 4 8615-9, 30561-3 #### [facility] ([id number]) [address] [place] [address] 42596 #### LIVR, 85000-9, 2731-8, 2498-4, HA1C, 2-9, 3016-3, CBCA #### [facility] ([id number]) [address], [address] [place] [address] MCV (RBC) [Entitic vol] 85 fL Normal 80-100 [facility] Comment on above: Performed By: #### 4 8615-9, 73880-0 #### [facility] ([id number]) [address] [place] [address] 44968 #### LIVR, 78943-0, 2731-8, 2498-4, HA1C, 2132-9, 3016-3, CBCA #### [facility] ([id number]) [address], [address] [place] [address] Monocytes (Bld) [#/Vol] 0.3 10*3/uL Normal 0-0.9 [facility] Comment on above: Performed By: #### 4 8615-9, 59826-5 #### [facility] ([id number]) [address] [place] [address] 87376 #### LIVR, 45977-7, 2731-8, 2498-4, HA1C, 2132-9, 3016-3, CBCA #### [facility] ([id number]) [address], [address] [place] [address] Monocytes/100 WBC (Bld) 4.3 % Normal [facility] Comment on above: Performed By: #### 4 8615-9, 01008-3 #### [facility] ([id number]) [address] [place] [address] 45163 #### LIVR, 41232-0, 2731-8, 2498-4, HA1C, 2-9, 3016-3, CBCA #### [facility] ([id number]) [address], [address] [place] [address] Neutrophils/100 WBC (Bld) 73.2 % Normal [facility] Comment on above: Performed By: #### 4 8615-9, 20036-8 #### [facility] ([id number]) [address] [place] [address] 80430 #### LIVR, 42520-1, 2731-8, 2498-4, HA1C, 2132-9, 3016-3, CBCA #### [facility] ([id number]) [address], [address] [place] [address] Platelet mean volume (Bld) [Entitic vol] 7.6 fL Normal 7-12 [facility] Comment on above: Performed By: #### 4 8615-9, 59551-4 #### [facility] ([id number]) [address] [place] [address] 28933 #### LIVR, 67410-1, 2731-8, 2498-4, HA1C, 2132-9, 3016-3, CBCA #### [facility] ([id number]) [address], [address] [place] [address] Platelets (Bld) [#/Vol] 234 10*3/uL Normal 150-450 [facility] Comment on above: Performed By: #### 4 8615-9, 99228-3 #### [facility] ([id number]) [address] [place] [address] 72221 #### LIVR, 47900-3, 2731-8, 2498-4, HA1C, 2-9, 3016-3, CBCA #### [facility] ([id number]) [address], [address] [place] [address] RBC COUNT 5.16 X10E12/L Normal 4.10-5.70 [facility] Comment on above: Performed By: #### 4 8615-9, 90876-1 #### [facility] ([id number]) [address] [place] [address] 33558 #### LIVR, 19840-7, 2731-8, 2498-4, HA1C, 2-9, 3016-3, CBCA #### [facility] ([id number]) [address], [address] [place] [address] WBC (Bld) [#/Vol] 7.1 10*3/uL Normal 4.0-11.0 [facility] Comment on above: Performed By: #### 4 8615-9, 02165-7 #### [facility] ([id number]) [address] [place] [address] 15431 #### LIVR, 95337-3, 2731-8, 2498-4, HA1C, 2131-9, 3016-3, CBCA #### [facility] ([id number]) [address] [facility] [place] [address] HGB A1C (GLYCO-HGB)on 2024 Glucose [Mass/Vol] 103 mg/dL Normal [facility] Comment on above: Performed By: #### 4 8615-9, 30674-4 #### [facility] ([id number]) [address] [place] [address] 44519 #### LIVR, 99609-2, 2731-8, 2498-4, HA1C, 9, 6-3, CBCA #### [facility] ([id number]) [address] [facility] [facility] [address] [place] [address] HbA1c (Bld) [Mass fraction] 5.2 % Normal 4.4-5.6 [facility] Comment on above: Result Comment: NOTE ADA Guidelines Result HgbA1c Normal : less than 5.7 % Prediabetes : 5.7 % to 6.4 % Diabetes : > 6.4 % Use with caution in patients with abnormal hemoglobin variants as the half-life of red blood cells and in vivo glycation rates are affected. Performed By: #### 4 8615-9, 53789-3 #### [facility] ([id number]) [address] [place] [address] 39519 #### LIVR, 06686-4, 2731-8, 2498-4, HA1C, 2131-9, 3016-3, CBCA #### [facility] ([id number]) [address], [address] [place] [address] IRONon 12-01-2024 Iron [Mass/Vol] 51 ug/dL Normal 50-212 [facility] Comment on above: Performed By: #### 4 8615-9, 96334-3 #### [facility] ([id number]) [address] [place] [address] 88904 #### LIVR, 81917-0, 2731-8, 2498-4, HA1C, 2132-9, 3016-3, CBCA #### [facility] ([id number]) [address] [facility] [facility] [place] [address] Insulin.free and Insulin.tot al panel Qnon 12-01-2024 Insulin, Free, S 146 mcIU/mL High 3 - 25 [facility] Comment on above: Performed By: #### 4 8615-9, 84388-6 #### [facility] ([id number]) [address] [place] [address] 20707 #### LIVR, 09771-6, 2731-8, 2498-4, HA1C, 2132-9, 3016-3, CBCA #### [facility] ([id number]) [address] [facility] [facility] [place] [address] Insulin, Total, S 168 mcIU/mL [facility] [address] Comment on above: Result Comment: NOTE ADDITIONAL INFORMATION This test has been modified from the cook relief's instructions. Its performance characteristics were determined by [facility] in a manner consistent with CLIA requirements. [...] the total insulin concentration. Test Performed by: [facility] [address] [place] [address] Reliability Manager: Leslye Pink Ph.D.; CLIA# [id number] Performed By: #### 4 8615-9, 66625-9 #### [facility] ([id number]) [address] [place] [address] 87754 #### LIVR, 28362-2, 2731-8, 2498-4, HA1C, 2132-9, 3016-3, CBCA #### [facility] ([id number]) [address], [address] [place] [address] LIVER PANELon 12-01-2024 Albumin [Mass/Vol] 3.7 g/dL Normal 3.2-5.3 [facility] Comment on above: Performed By: #### 4 8615-9, 97901-4 #### [facility] ([id number]) [address] [place] [address] 38980 #### LIVR, 14080-3, 2731-8, 2498-4, HA1C, 2132-9, 3016-3, CBCA #### [facility] ([id number]) [address], [address] [place] [address] ALP [Catalytic activity/Vol] 59 U/L Normal 39-130 [facility] Comment on above: Performed By: #### 4 8615-9, 09747-0 #### [facility] ([id number]) [address] [place] [address] 09061 #### LIVR, 40541-0, 2731-8, 2498-4, HA1C, 2132-9, 3016-3, CBCA #### [facility] ([id number]) [address], [address] [place] [address] ALT [Catalytic activity/Vol] 19 U/L Normal 0-40 [facility] Comment on above: Performed By: #### 4 8615-9, 68517-1 #### [facility] ([id number]) [address] [place] [address] 16348 #### LIVR, 73914-3, 2731-8, 2498-4, HA1C, 2132-9, 3016-3, CBCA #### [facility] ([id number]) [address] [place] [address] AST [Catalytic activity/Vol] 18 U/L Normal 0-41 [facility] Comment on above: Performed By: #### 4 8615-9, 87380-7 #### [facility] ([id number]) [address] [place] [address] 80126 #### LIVR, 67531-5, 2731-8, 2498-4, HA1C, 2132-9, 3016-3, CBCA #### [facility] ([id number]) [address], [address] [place] [address] Bilirubin [Mass/Vol] 0.5 mg/dL Normal 0.3-1.2 [facility] Comment on above: Performed By: #### 4 8615-9, 89284-6 #### [facility] ([id number]) [address] [place] [address] 77[address] #### LIVR, 54787-5, 2731-8, 2498-4, HA1C, 2132-9, 3016-3, CBCA #### [facility] ([id number]) [address], [address] [place] [address] Bilirubin.direct [Mass/Vol] 0.1 mg/dL Normal 0.0-0.4 [facility] Comment on above: Performed By: #### 4 8615-9, 63543-9 #### [facility] ([id number]) [address] [place] [address] #### LIVR, 07561-3, 2731-8, 2498-4, HA1C, 2-9, 3016-3, CBCA #### [facility] ([id number]) [address], [address] [place] [address] Protein [Mass/Vol] 7.3 g/dL Normal 6.0-8.0 [facility] Comment on above: Performed By: #### 4 8615-9, 91394-7 #### [facility] ([id number]) [address] [place] [address] #### LIVR, 17814-8, 2731-8, 2498-4, HA1C, 2131-9, 3016-3, CBCA #### [facility] ([id number]) [address] [place] [address] Parathyrin.intact [Mass/Vol] on 12-01-2024 PTH INTACT 25 pg/mL Normal 12-88 [facility] Comment on above: Performed By: #### 4 8615-9, 81489-8 #### [facility] ([id number]) [address] [place] [address] #### LIVR, 98017-4, 2731-8, 2498-4, HA1C, 2-9, 3016-3, CBCA #### [facility] ([id number]) [address], [address] [place] [address] TSH Qnon 12-01-2024 TSH 1.64 uIU/mL Normal 0.49-4.67 [facility] Comment on above: Performed By: #### 4 8615-9, 26987-0 #### [facility] ([id number]) [address] [place] [address] #### LIVR, 75081-0, 2731-8, 2498-4, HA1C, 2132-9, 3016-3, CBCA #### [facility] ([id number]) [address] [place] [address], [address] [place] [address] Testosterone free and total panel [Mass/Vol]on 12-01-2024 Testosterone [Mass/Vol] 286 ng/dL Normal 240-950 [facility] Comment on above: Result Comment: NOTE ADDITIONAL INFORMATION Testing performed by Liquid Chromatography-Tandem Mass Spectrometry (LC-MS/MS). This test was developed and its performance characteristics determined by [facility] in a manner consistent with CLIA requirements. This test has not been cleared or approved by the U.S. Food and Drug Administration. Test Performed by: [place] [address] Reliability Manager: Leslye Pink Ph.D.; CLIA# [id number] Performed By: #### 4 8615-9, 91997-3 #### [facility] ([id number]) [address] [place] [address]7877 #### LIVR, 08935-2, 2731-8, 2498-4, HA1C, 2132-9, 3016-3, CBCA #### [facility] ([id number]) [address] [place] [address], [address] [place] [address] TESTOSTERONE FREE 8.16 ng/dL Normal 4.26-16.4 [facility] Comment on above: Result Comment: NOTE ADDITIONAL INFORMATION This test was developed and its performance characteristics determined by [facility] in a manner consistent with CLIA requirements. This test has not been cleared or approved by the U.S. Food and Drug Administration. Performed By: #### 4 8615-9, 85601-3 #### [facility] ([id number]) [address] [place] [address] #### LIVR, 19769-8, 2731-8, 2498-4, HA1C, 9, 3016-3, CBCA #### [facility] ([id number]) [address], [address] [place] [address] VITAMIN B12on 12-01-2024 Cobalamin (Vitamin B12) [Mass/Vol] 399 pg/mL Normal 180-914 [facility] Comment on above: Performed By: #### 4 8615-9, 15054-9 #### [facility] ([id number]) [address] [place] [address] 07681 #### HEATHERR, 50171-8, 2731-8, 2498-4, HA1C, 2132-05, 3016-3, CBCA #### [facility] ([id number]) [address], [address] [place] [address] Vitamin D+Metabolites [Mass/ Vol]on 12-01-2024 VITAMIN D 25 HYD TOT 36.1 ng/mL Normal 30-100 [facility] Comment on above: Result Comment: Vitamin D status 25 [place] Vitamin D Deficiency <20 ng/mL Insufficiency 20-29 ng/mL Sufficiency 30-100 ng/mL Toxicity >100 ng/mL NOTE: A pediatric reference range has not been established by the cook relief of this kit. The [place] [employer] recommends a Vitamin D level of = or >20ng/mL in infants and children. Performed By: #### 4 8615-9, 65590-5 #### [facility] ([id number]) [address] [place] [address] #### LIVR, 94561-3, 2731-8, 2498-4, HA1C, 2132-9, 3016-3, CBCA #### [facility] ([id number]) [address], [address] [place] [address] Operative Reporton 4 Operative Report [id number]#1. 00TIFF Normal [facility] Consultation Noteon 02-20-20 Consultation Note [id number]#1 .00TIFF Normal [facility] Consultation Noteon 02-06-20 Consultation Note [id number]#1 .00TIFF Normal [facility] RAD - MRI Reporton RAD - MRI Report [id number]#1 .00TIFF Normal [facility] MRI LUMBAR SPINE WO CONTRAST on [...] compromise. L2-L3: No disc bulge or protrusion. Stkf-em-tooiuzvw facet arthropathy. No significant central canal stenosis. [...] MRI. MRI order was sent to [facility] in [place]. Pt states the burning sensation from sitting [...] not able to get MRI done at [facility]. is waiting for PA for MRI in [place]. they have an open MRI machine. needs [...] days., # 18 tab(s), Refills(s) 0, Pharmacy: [facility]/pharmacy #[id number], 187.5, cm, 01/16/24 13:46:00 EDT, Height/Length Dosing, 183, kg, 01/16/24 13:4... 3. Non-smoker (Z78.9: Other specified health status) continue not smoking Ordered: predniSONE, = 1 -, Oral, As Directed, Take 3 tabs by mouth daily x3 days, then 2 tabs daily x3 days, then 1 tab daily x3 days., # 18 tab(s), Refills(s) 0, Pharmacy: [facility]/pharmacy #6177, 187.5, cm, 01/16/24 13:46:00 EDT, Height/Length [...] pneumococcal 23-valent vaccine 03/10/2019 Recorded Normal [facility] Comment on above: Result Comment: Elec [...] tab daily x3 days. Pickup at [facility]/pharmacy #[id number] Unchanged cranberry (cranberry oral [...] Pain Non-smoker BMI 60.0-69.9, adult Pharmacy Information [facility]/pharmacy #[id number]: [address], [place] [id number] [phone] Allergies No Known Allergies Problems Ongoing - [...] you for choosing us for your care. [facility] Physician Orderon 01-14-2024 Physician Order [id number]#1 .00TIFF [facility] Provider Letteron 01-14-2024 Provider Letter January 14, 2024 RAKESH PIÑA [address] [place] [phone] : 1975 To Whom It May Concern, Please excuse above patient from work. Date of Illness: From: 01/07/2024 To: 01/16/2024 May Return to Work On: 01/17/2024 Restrictions: None Comments: Sincerely, Family Medicine [place] [id number] [facility] Ambulatory Visit Summaryon 0 01-09-2024 Ambulatory [...] 11:20 AM EDT With: Effie Muhammad Where: [facility] Consenton 01-09-2024 Consent [id number]#1 .00TIFF [facility] ED Note-Physicianon 01-09-20 ED Note-Physician [id number]# 1.00TIFF [facility] Family Medicine Office/Clini c Noteon 01-09-2024 Family Medicine Office/Clinic Note HPI Staff Rakesh is a 48 year old male presenting for ER follow up ER followup: Hospital: [facility] Visit date: 01/07/24 Symptoms the patient [...] # 60 tab(s), Refills(s) 0, Pharmacy: [facility]/pharmacy #6177, 187.5, cm, 01/09/24 10:51:00 [...] # 60 tab(s), Refills(s) 0, Pharmacy: [facility]/pharmacy #6177, 187.5, cm, 01/09/24 10:51:00 EDT, Height/Length Dosing, 187.5, kg, 08/23/23 9:30:00 EST, Weight Dosing triamcinolone, 60 mg = 1.5 mL, Injection, IntraMuscular, Once, Stop date 01/09/24 11:20:00 EDT, Routine, Start date 01/09/24 11:20:00 EDT, 01/09/24 11:20:00 EDT Orders: phentermine, 37.5 mg = 1 tab(s), Oral, Daily, # 30 tab(s), Refills(s) 0, Pharmacy: [facility] #[facility], 176.5, cm, 07/26/23 9:32:00 EST, Height/Length [...] (more content not included)... Normal [facility] Comment on above: Result Comment: Elec tronically Signed By: Effie Muhammad\.jessica\Date and Time Signed: 01/09/24 11:25 EDT Physician Orderon 01-09-2024 Physician Order [id number]#1 .00TIFF [facility] Provider Letteron 01-09-2024 Provider Letter January 09, 20[address]ANG [address] [place] [phone] : 1975 To Whom It May Concern, Please excuse above patient from work due to medical Date of Illness: From: _01-08-24 To: _01-14-24 May Return to Work On:01-15-24 Restrictions: _ Comments: _ Sincerely, [address] [address] Normal [facility] RAD - CT Reporton 01-09-2024 RAD - CT Report [id number]#1 .00TIFF Normal [facility] ED Note-Physicianon 01-08-20 ED Note-Physician [id number]#1 .00TIFF Normal [facility] RAD - CT Reporton 01-08-[address] RAD - CT Report [id number]#1 .00TIFF Normal [facility] Operative Reporton Operative Report [id number]#1 .00TIFF [facility] Consultation Noteon 11-07-19 Consultation Note [id number]#1 .00TIFF [facility] PT - Progress Noteson 2023 PT - Progress Notes [id number]#1 .00TIFF Normal [facility] RAD - MISCon 10-29-2023 RAD - MISC [id number]#1 .00TIFF Normal [facility] Retail - Clinical Noteon Retail - Clinical Note [id number]#1 .00TIFF [facility] Plan of Care - PT/OT/Speecho n 09-06-2023 Plan of Care - PT/OT/Speech [id number]#1 .00TIFF Normal [facility] Physician Referralon 023 Physician Referral [id number]# 1.00TIFF Normal [facility] Testost Totalon 08-25-2023 Testosterone [Mass/Vol] 321 ng/dL Invalid Interpretation Code [id number] [facility] Comment on above: Result Comment: Adul t male reference interval is based on a population of healthy nonobese males (BMI <30) between 19 and 39 years old. precious Perdue.al. JCEM 2017,102;4590-1791. PMID: [id number]. Performed at: [employer] [facility] [id number] PhD Domenic Rider Performed By: #### 2 [id number], [id number], [id number] ####[facility] [address] [place] [address] Reminderson 08-24-2023 Reminders - From: Effie Muhammad [...] message for patient below Normal [facility] CHEMISTRYOrdered By: SYSTEM SYSTEM on 08-23-2023 [...] was in slow motion. 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 He would [...] he would like referral to PT at [place] for bakc/leg pain. gabapentin and muscles relaxers did not help. 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 all questions answered. RTC as needed Ordered: cyclobenzaprine, 10 mg = 1 tab(s), Oral, Bedtime, PRN for spasm, # 30 tab(s), Refills(s) 0, Pharmacy: [facility], 176.5, cm, 07/26/23 9:32:00 EST, Height/Length Dosing, 187.2, kg, 07/26/23 9:32:00 EST, Weight Dosing gabapentin, 300 mg = 1 cap(s), Oral, Daily, # 30 cap(s), Refills(s) 0, Pharmacy: [facility], 176.5, cm, 07/26/23 9:32:00 EST, Height/Length Dosing, 187.2, kg, 07/26/23 9:32:00 EST, Weight Dosing 2. Fatigue (R53.83: Other fatigue) labs drawn today Ordered: Lab Specimen Collect 90720 Testosterone Level Total 3. Hypogonadism male (E29.1: Testicular hypofunction) testosterone ordered Ordered: Lab Specimen Collect 30702 Testosterone Level Total 4. BMI 60.0-69.9, adult (Z68.44: Body mass index [BMI] 60.0-69.9, adult) bmi education complete Ordered: cyclobenzaprine, 10 mg = 1 tab(s), Oral, Bedtime, PRN for spasm, # 30 tab(s), Refills(s) 0, Pharmacy: [facility], 176.5, cm, 07/26/23 9:32:00 EST, Height/Length Dosing, 187.2, kg, 07/26/23 9:32:00 EST, Weight Dosing gabapentin, 300 mg = 1 cap(s), Oral, Daily, # 30 cap(s), Refills(s) 0, Pharmacy: [facility], 176.5, cm, 07/26/23 9:32:00 EST, Height/Length Dosing, 187.2, kg, 07/26/23 9:32:00 EST, Weight Dosing Testosterone Level Total Vitamin B12 Level Vitamin D 25 Hydroxy Follow-up No qualifying data available Patient Education Obesity, Adult, Byfr-bb-Abcn Problem List/Past Medical History Ongoing Encounter for [...] (more content not included)... Normal [facility] Comment on above: Result Comment: Elec [...] food choices, such as grocery stores and MedWhat. What are the signs or symptoms? The [...] How much exercise you get. ? Take xwkz-mga-qaslobi and prescription medicines only as told by [...] (more content not included)... Normal [facility] Vit B12on 08-23-2023 Cobalamin (Vitamin B12) [Mass/Vol] 301 pg/mL Normal 50-1500 [facility] Comment on above: Performed By: #### 2 [id number], [id number], [id number] #### [facility] Laboratory [address] [place] [address] Vitamin D 25 Hydroxyon 08-23 Vitamin D 25 Hydroxy 57.7 ng/mL Normal 30.0-100.0 [facility] Comment on above: Performed By: #### 2 866123, [id number], [id number] ####[facility] [address] [place] [address] Ambulatory Visit Summaryon 1 09-25-2022 Ambulatory Visit [...] 9:20 AM EST With: Effie Muhammad Where: [facility] Normal [facility] Family Medicine Office/Clini c Noteon 07-26-2023 [...] spasm, # 30 tab(s), Refills(s) 0, Pharmacy: [facility], 176.5, cm, 07/26/23 9:32:00 EST, Height/Length Dosing, 187.2, kg, 07/26/23 9:32:00 EST, Weight Dosing gabapentin, 300 mg = 1 cap(s), Oral, Daily, # 30 cap(s), Refills(s) 0, Pharmacy: [facility], 176.5, cm, 07/26/23 9:32:00 EST, Height/Length Dosing, 187.2, kg, 07/26/23 9:32:00 EST, Weight Dosing methylPREDNISolone, = 1 packet(s), Oral, As Directed, as directed on package labeling, X 6 day(s), # 21 tab(s), Refills(s) 0, Pharmacy: [facility], 176.5, cm, 07/26/23 9:32:00 EST, Height/Length [...] spasm, # 30 tab(s), Refills(s) 0, Pharmacy: [facility], 176.5, cm, 07/26/23 9:32:00 EST, Height/Length Dosing, 187.2, kg, 07/26/23 9:32:00 EST, Weight Dosing gabapentin, 300 mg = 1 cap(s), Oral, Daily, # 30 cap(s), Refills(s) 0, Pharmacy: [facility], 176.5, cm, 07/26/23 9:32:00 EST, Height/Length Dosing, 187.2, kg, 07/26/23 9:32:00 EST, Weight Dosing methylPREDNISolone, = 1 packet(s), Oral, As Directed, as directed on package labeling, X 6 day(s), # 21 tab(s), Refills(s) 0, Pharmacy: [facility], 176.5, cm, 07/26/23 9:32:00 EST, Height/Length Dosing, 187.2, kg, 07/26/23 9:32:00 EST, Weight Dosing 3. Numbness and tingling of foot (R20.0: Anesthesia of skin) discussed ENG results Ordered: cyclobenzaprine, 10 mg = 1 tab(s), Oral, Bedtime, PRN for spasm, # 30 tab(s), Refills(s) 0, Pharmacy: [facility], 176.5, cm, 07/26/23 9:32:00 EST, Height/Length Dosing, 187.2, kg, 07/26/23 9:32:00 EST, Weight Dosing gabapentin, 300 mg = 1 cap(s), Oral, Daily, # 30 cap(s), Refills(s) 0, Pharmacy: [facility], 176.5, cm, 07/26/23 9:32:00 EST, Height/Length Dosing, 187.2, kg, 07/26/23 9:32:00 EST, Weight Dosing methylPREDNISolone, = 1 packet(s), Oral, As Directed, as directed on package labeling, X 6 day(s), # 21 tab(s), Refills(s) 0, Pharmacy: [facility], 176.5, cm, 07/26/23 9:32:00 EST, Height/Length Dosing, 187.2, kg, 07/26/23 9:32:00 EST, Weight Dosing 4. Class 3 obesity (E66.01: Morbid (severe) obesity due to excess calories) pt continues with diet Ordered: cyclobenzaprine, 10 mg = 1 tab(s), Oral, Bedtime, PRN for spasm, # 30 tab(s), Refills(s) 0, Pharmacy: [facility], 176.5, cm, 07/26/23 9:32:00 EST, Height/Length Dosing, 187.2, kg, 07/26/23 9:32:00 EST, Weight Dosing gabapentin, 300 mg = 1 cap(s), Oral, Daily, # 30 cap(s), Refills(s) 0, Pharmacy: [facility], 176.5, cm, 07/26/23 9:32:00 EST, Height/Length Dosing, 187.2, kg, 07/26/23 9:32:00 EST, Weight Dosing methylPREDNISolone, = 1 packet(s), Oral, As Directed, as directed on package labeling, X 6 day(s), # 21 tab(s), Refills(s) 0, Pharmacy: [facility], (more content not included)... Normal [facility] Comment on above: Result Comment: Elec tronically Signed By: Effie Muhammad\.br\Date and Time Signed: 07/26/23 09:54 EST EMG Electromyographyon 07-10 EMG Electromyography [id number]#1 .00TIFF [facility] EMG Electromyography [id number]#1. 00TIFF [facility] Physician Referralon 023 Physician Referral [id number]# 1.00TIFF [facility] Ambulatory Visit Summaryon 1 Ambulatory Visit [...] 9:20 AM EST With: Effie Muhammad Where: [facility] Family Medicine Office/Clini c Noteon 06-21-2023 [...] day(s), # 30 tab(s), Refills(s) 1, Pharmacy: [facility], 176.5, cm, 06/21/23 9:41:00 EDT, Height/Length Dosing, 186.7, kg, 06/21/23 9:41:00 EDT, Weight Dosing meloxicam, 15 mg = 1 tab(s), Oral, Daily, X 30 day(s), # 30 tab(s), Refills(s) 0, Pharmacy: [facility], 176.5, cm, 06/21/23 9:41:00 EDT, Height/Length Dosing, 186.7, kg, 06/21/23 9:41:00 EDT, Weight Dosing meloxicam, 15 mg = 1 tab(s), Oral, Daily, # 30 tab(s), Refills(s) 1, Pharmacy: [facility], 176.5, cm, 05/22/23 9:51:00 EDT, Height/Length Dosing, 190.2, kg, 05/22/23 9:51:00 EDT, Weight Dosing 2. Left sciatic nerve pain (M54.32: Sciatica, left side) pt continues to have left sciatic nerve pain but it is improved Ordered: meloxicam, 15 mg = 1 tab(s), Oral, Daily, X 30 day(s), # 30 tab(s), Refills(s) 1, Pharmacy: [facility] #72, 176.5, cm, 06/21/23 9:41:00 EDT, Height/Length Dosing, 186.7, kg, 06/21/23 9:41:00 EDT, Weight Dosing meloxicam, 15 mg = 1 tab(s), Oral, Daily, X 30 day(s), # 30 tab(s), Refills(s) 0, Pharmacy: [facility], 176.5, cm, 06/21/23 9:41:00 EDT, Height/Length Dosing, 186.7, kg, 06/21/23 9:41:00 EDT, Weight Dosing meloxicam, 15 mg = 1 tab(s), Oral, Daily, # 30 tab(s), Refills(s) 1, Pharmacy: [facility], 176.5, cm, 05/22/23 9:51:00 EDT, Height/Length Dosing, 190.2, kg, 05/22/23 9:51:00 EDT, Weight Dosing phentermine, 37.5 mg = 1 tab(s), Oral, Daily, X 30 day(s), # 30 tab(s), Refills(s) 0, Pharmacy: [facility], 176.5, cm, 05/22/23 9:51:00 EDT, Height/Length Dosing, 190.2, kg, 05/22/23 9:51:00 EDT, Weight Dosing [facility] Ambulatory Referral 3. Lower extremity numbness (R20.0: Anesthesia of skin) EMG order sent to [facility] in [place] Ordered: [facility] [place] Ambulatory Referral 4. Morbid obesity due to excess calories (E66.01: Morbid (severe) obesity due to excess calories) BMI education complete Ordered: meloxicam, 15 mg = 1 tab(s), Oral, Daily, X 30 day(s), # 30 tab(s), Refills(s) 1, Pharmacy: [facility], 176.5, cm, 06/21/23 9:41:00 EDT, Height/Length Dosing, 186.7, kg, 06/21/23 9:41:00 EDT, Weight Dosing meloxicam, 15 mg = 1 tab(s), Oral, Daily, X 30 day(s), # 30 tab(s), Refills(s) 0, Pharmacy: [facility], 176.5, cm, 06/21/23 9:41:00 EDT, Height/Length Dosing, 186.7, kg, 06/21/23 9:41:00 EDT, Weight Dosing meloxicam, 15 mg = 1 tab(s), Oral, Daily, # 30 tab(s), Refills(s) 1, Pharmacy: [facility], 176.5, cm, 05/22/23 9:51:00 EDT, Height/Length Dosing, 190.2, kg, 05/22/23 9:51:00 EDT, Weight Dosing phentermine, 37.5 mg = 1 tab(s), Oral, Daily, X 30 day(s), # 30 tab(s), Refills(s) 0, Pharmacy: [facility], 176.5, cm, 05/22/23 9:51:00 EDT, Height/Length Dosing, 190.2, kg, 05/22/23 9:51:00 EDT, Weight Dosing 5. BMI 50.0-59.9, adult (Z68.43: Body mass index [BMI] 50.0-59.9, adult) BMI education complete 6. Non-smoker (Z78.9: Other specified health status) continue not smoking Ordered: meloxicam, 15 mg = 1 tab(s), Oral, Daily, X 30 day(s), # 30 tab(s), Refills(s) 1, Pharmacy: [facility], 176.5, cm, 06/21/23 9:41:00 EDT, Height/Length Dosing, 186.7, kg, 06/21/23 9:41:00 EDT, Weight Dosing meloxicam, 15 mg = 1 tab(s), Or (more content not included)... [facility] Comment on above: Result Comment: Elec [...] 9:20 AM EDT With: Effie Muhammad Where: [facility] Ambulatory Visit Summary RAKESH PIÑA :1975 [...] 9:20 AM EDT With: Effie Muhammad Where: [facility] Office/Clini c Noteon 05-22-2023 Family [facility] Office/Clinic Note HPI Staff Rakesh is a [...] his legs at night. pt will order picker some OTC potassium to see if that helps. all questions answered. RTC 4 weeks Ordered: meloxicam, 15 mg = 1 tab(s), Oral, Daily, # 30 tab(s), Refills(s) 1, Pharmacy: [facility], 176.5, cm, 05/22/23 9:51:00 EDT, Height/Length Dosing, 190.2, kg, 05/22/23 9:51:00 EDT, Weight Dosing 2. Left sciatic nerve pain (M54.32: Sciatica, left side) will order antiinflammatory. steroid did not give him any relief Ordered: meloxicam, 15 mg = 1 tab(s), Oral, Daily, # 30 tab(s), Refills(s) 1, Pharmacy: [facility], 176.5, cm, 05/22/23 9:51:00 EDT, Height/Length Dosing, 190.2, kg, 05/22/23 9:51:00 EDT, Weight Dosing phentermine, 37.5 mg = 1 tab(s), Oral, Daily, X 30 day(s), # 30 tab(s), Refills(s) 0 phentermine, 37.5 mg = 1 tab(s), Oral, Daily, X 30 day(s), # 30 tab(s), Refills(s) 0, Pharmacy: [facility], 176.5, cm, 05/22/23 9:51:00 EDT, Height/Length Dosing, 190.2, kg, 05/22/23 9:51:00 EDT, Weight Dosing 3. BMI 60.0-69.9, adult (Z68.44: Body mass index [BMI] 60.0-69.9, adult) BMI education complete Ordered: meloxicam, 15 mg = 1 tab(s), Oral, Daily, # 30 tab(s), Refills(s) 1, Pharmacy: [facility], 176.5, cm, 05/22/23 9:51:00 EDT, Height/Length Dosing, 190.2, kg, 05/22/23 9:51:00 EDT, Weight Dosing 4. Morbid obesity due to excess calories (E66.01: Morbid (severe) obesity due to excess calories) see above Ordered: meloxicam, 15 mg = 1 tab(s), Oral, Daily, # 30 tab(s), Refills(s) 1, Pharmacy: [facility], 176.5, cm, 05/22/23 9:51:00 EDT, Height/Length Dosing, 190.2, kg, 05/22/23 9:51:00 EDT, Weight Dosing phentermine, 37.5 mg = 1 tab(s), Oral, Daily, X 30 day(s), # 30 tab(s), Refills(s) 0 phentermine, 37.5 mg = 1 tab(s), Oral, Daily, X 30 day(s), # 30 tab(s), Refills(s) 0, Pharmacy: [facility], 176.5, cm, 05/22/23 9:51:00 EDT, Height/Length Dosing, 190.2, kg, 05/22/23 9:51:00 EDT, Weight Dosing 5. Non-smoker (Z78.9: Other specified health status) continue not smoking Ordered: meloxicam, 15 mg = 1 tab(s), Oral, Daily, # 30 tab(s), Refills(s) 1, Pharmacy: [facility], 176.5, cm, 05/22/23 9:51:00 EDT, Height/Length Dosing, 190.2, kg, 05/22/23 9:51:00 EDT, Weight Dosing phentermine, 37.5 mg = 1 tab(s), Oral, Daily, X 30 day(s), # 30 tab(s), Refills(s) 0 phentermine, 37.5 mg = 1 tab(s), Oral, Daily, X 30 day(s), # 30 tab(s), Refills(s) 0, Pharmacy: [facility], 176.5, cm, 05/22/23 9:51:00 EDT, Height/Length [...] (more content not included)... Normal [facility] Comment on above: Result Comment: Elec tronically Signed By: Effie Muhammad\.br\Date and Time Signed: 05/22/23 10:34 EDT [place] 04-26-2023 Consent [id number] .[id number]:[id number] Normal [facility] Family Medicine Office/Clini c Noteon 04-24-2023 [...] IM in office today. Normal [facility] Comment on above: Result Comment: Elec [...] 11:00 AM EDT With: Effie Muhammad [facility] 03-19-2023 Basophils/100 WBC (Bld) 0.3 % Normal 0.0-2.0 [facility] Comment on above: Order Comment: Order Added by Discern Expert. Performed By: #### 2 [id number], [id number] ####[facility] [address] [place] [address] Basophils/Leukocytes Auto (Bld) [Pure # fraction] 0.0 E9/L Normal 0.0-0.2 [facility] Comment on above: Order Comment: Order Added by Discern Expert. Performed By: #### 2 [id number], [id number], [id number], [id number], [id number] ####[address] [place] [address] Eosinophils/100 WBC (Bld) 2.1 % Normal 0.0-8.0 [facility] Comment on above: Order Comment: Order Added by Discern Expert. Performed By: #### 2 [id number], [id number], [id number], [id number], [id number] ####[address] [place] [address] Eosinophils/Leukocytes Auto (Bld) [Pure # fraction] 0.2 E9/L Normal 0.0-0.5 [facility] Comment on above: Order Comment: Order Added by Discern Expert. Performed By: #### 2 [id number], [id number], [id number], [id number], [id number] ####[address] [address] Lymphocytes/100 WBC (Bld) 20.5 % Normal 14.0-50.0 [facility] Comment on above: Order Comment: Order Added by Discern Expert. Performed By: #### 2 [id number], [id number], [id number], [id number], [id number] ####[facility] [address] [place] [address] Lymphocytes/Leukocytes Auto (Bld) [Pure # fraction] 1.6 E9/L Normal 1.0-4.0 [facility] Comment on above: Order Comment: Order Added by Discern Expert. Performed By: #### 2 [id number], [id number], [id number], [id number], [id number] ####[facility] [facility] [address] [place] [address] Monocytes/100 WBC (Bld) 8.7 % Normal 4.0-14.0 [facility] Comment on above: Order Comment: Order Added by Discern Expert. Performed By: #### 2 522373, [id number], 2139206, 4077711, [id number] ####[address] [place] [address] Monocytes/Leukocytes Auto (Bld) [Pure # fraction] 0.7 E9/L Normal 0.2-1.0 [facility] Comment on above: Order Comment: Order Added by Discern Expert. Performed By: #### 2 146592, 3391493, 0724124, 3479459, [id number] ####[address] [address] Neutrophils/100 WBC (Bld) 68.4 % Normal 36.0-75.0 [facility] Comment on above: Order Comment: Order Added by Discern Expert. Performed By: #### 2 702878, 1338860, 5316081, 4250086, [id number] ####[address] [address] Neutrophils/Leukocytes Auto (Bld) [Pure # fraction] 5.3 E9/L Normal 2.0-7.5 [facility] Comment on above: Order Comment: Order Added by Discern Expert. Performed By: #### 2 121891, 6249674, 4948608, 6426838, [id number] ####[address] [address] CBC w/ Auto Diffon 3 Erythrocyte distribution width (RBC) [Ratio] 16.3 % High 10.9-14.2 [facility] Comment on above: Performed By: #### 2 575538, 6688937, 9693429, 5999178, 92938080 ####[address] [place] [address] Hematocrit (Bld) [Volume fraction] 43.7 % Normal 37.7-49.0 [facility] Comment on above: Performed By: #### 2 873610, 9047476, 2200900, 9150950, 78669840 ####[address] [address] Hemoglobin (Bld) [Mass/Vol] 14.4 g/dL Normal 13.5-17.5 [facility] Comment on above: Performed By: #### 2 699151, 9587464, 1265292, 7943361, 52036686 ####[address] [address] MCH (RBC) [Entitic mass] 27.9 pg Normal 27.0-34.0 [facility] Comment on above: Performed By: #### 2 920620, 2118654, 0471378, 9818816, 52107016 ####[address] [address] MCHC (RBC) [Mass/Vol] 33.0 g/dL Normal 31.4-36.0 [facility] Comment on above: Performed By: #### 2 807586, 7315268, 6925954, 2849874, 14874804 ####[address] [address] MCV (RBC) [Entitic vol] 84.8 fL Normal 80.0-100.0 [facility] Comment on above: Performed By: #### 2 112652, 7597923, 9368497, 5901810, 85312592 ####[address] [address] Platelet mean volume (Bld) [Entitic vol] 7.7 fL Normal 6.4-10.8 [facility] Comment on above: Performed By: #### 2 039495, 8757067, 0458208, 2822060, 91089141 ####[address] [address] Platelets (Bld) [#/Vol] 278.0 E9/L Normal 150.0-500.0 [facility] Comment on above: Performed By: #### 2 082442, 4871069, 8140279, 5696457, 79847910 ####[facility] [address] [place] [address] RBC (Bld) [#/Vol] 5.2 E12/L Normal 4.3-5.9 [facility] Comment on above: Performed By: #### 2 409189, 5603686, 8300208, 1384562, 29236064 ####[facility] [address] [place] [address] WBC corrected for nucl RBC Auto (Bld) [#/Vol] 7.7 E9/L Normal 4.0-11.0 [facility] Comment on above: Performed By: #### 2 355260, 3956021, 6267446, 6969759, 48174892 ####[facility] [address] [place] [address] CHEMISTRYOrdered By: SYSTEM SYSTEM on 03-19-2023 Cholesterol [...] # 21 tab(s), Refills(s) 0, Pharmacy: [facility]/pharmacy #[id number], 176.5, cm, 03/19/23 13:15:00 EDT, Height/Length Dosing phentermine, 37.5 mg = 1 tab(s), Oral, Daily, # 30 tab(s), Refills(s) 0, Pharmacy: [facility]/pharmacy #6177, 176.5, cm, 03/19/23 13:15:00 [...] # 21 tab(s), Refills(s) 0, Pharmacy: [facility]/pharmacy #6177, 176.5, cm, 03/19/23 13:15:00 EDT, Height/Length Dosing phentermine, 37.5 mg = 1 tab(s), Oral, Daily, # 30 tab(s), Refills(s) 0, [id number] 176.5, cm, 03/19/23 13:15:00 EDT, Height/Length Dosing CBC w/ Auto Diff Cologuard Screening Test Lipid Panel PSA Screen, Total Thyroid Stimulating Hormone 3. Non-smoker (Z78.9: Other specified health status) continue not smoking Ordered: methylPREDNISolone, = 1 packet(s), Oral, As Directed, as directed on package labeling, X 6 day(s), # 21 tab(s), Refills(s) 0, Pharmacy: [facility]/pharmacy #6177, 176.5, cm, 03/19/23 13:15:00 EDT, Height/Length Dosing phentermine, 37.5 mg = 1 tab(s), Oral, Daily, # 30 tab(s), Refills(s) 0, Pharmacy: [facility]/pharmacy #6177, 176.5, cm, 03/19/23 13:15:00 EDT, Height/Length Dosing CBC w/ Auto Diff Cologuard Screening Test Lipid Panel PSA Screen, Total Thyroid Stimulating Hormone 4. Left sciatic nerve pain (M54.32: Sciatica, left side) medrol dose pack sent Ordered: methylPREDNISolone, = 1 packet(s), Oral, As Directed, as directed on package labeling, X 6 day(s), # 21 tab(s), Refills(s) 0, Pharmacy: [facility]/pharmacy #[id number], 176.5, cm, 03/19/23 13:15:00 EDT, Height/Length Dosing phentermine, 37.5 mg = 1 tab(s), Oral, Daily, # 30 tab(s), Refills(s) 0, Pharmacy: [facility]/pharmacy #6177, 176.5, cm, 03/19/23 13:15:00 EDT, Height/Length Dosing Colon cancer screening (Z12.11: (more content not included)... Normal [facility] Comment on above: Result Comment: Elec tronically Signed By: Effie Muhammad\.br\Date and Time Signed: 03/19/23 14:00 EDT Formson 03-19-2023 Forms [id number]:127 Normal [facility] HEMATOLOGYOrdered By: SYSTEM SYSTEM on 03-19-2023 [...] Comment on above: Performed By: #### 2 946797, 9597671, 0017541, 5866596, 42978643 ####[facility] [address] [place] [address] Cholesterol in HDL [Mass/Vol] 39 mg/dL Invalid Interpretation Code [facility] Comment on above: Result Comment: HDL > or equal to 60 mg/dL: Low cardiovascular risk HDL < 40 mg/dL : High cardiovascular risk Performed By: #### 2 904244, 1434488, 2332973, 1077498, 46810669 ####[facility] [address] [place] [address] Cholesterol in LDL [Mass/Vol] 112 mg/dL Normal <=129 [facility] Comment on above: Performed By: #### 2 933243, 1662257, 6553107, 5676096, 70810922 ####[facility] [address] [place] [address] Cholesterol in VLDL [Mass/Vol] 19 mg/dL Normal 7-40 [facility] Comment on above: Performed By: #### 2 134604, 2619605, 4709760, 9396171, 29474707 ####[facility] [address] [place] [address] Triglyceride [Mass/Vol] 94 mg/dL Normal <=149 [facility] Comment on above: Performed By: #### 2 409127, 0776137, 9244382, 2660395, 82576308 ####[facility] [address] [place] [address] PSA Screen, Totalon 03-19-20 23 Prostate specific Ag [Mass/Vol] 0.9 ng/mL Normal 0.1-3.5 [facility] Comment on above: Result Comment: The concentration of PSA determined by different manufacturers can vary due to differences in assay methods and reagent specificity. Values obtained from different assay methods cannot be used interchangeably. The methodology used for this result was chemiluminescence using [employer]s Access Hybritech PSA reagent. Performed By: #### 2 219425, 3568238, 6990148, 4342712, 14592801 ####[facility] [address] [place] [address] TSHon 03-19-2023 TSH Qn 2.03 m[IU]/L Normal 0.34-5.60 [facility] Comment on above: Performed By: #### 2 537676, 4109076, 6738280, 8313836, 55466453 ####[facility] [address] [place] [address] Covid-19 PCR (CVDTB)on 07-11 SARS-CoV-2 (COVID-19) RNA BETHANY+probe Ql (Unsp spec) Not detected Normal NOT DETECTED [facility] Comment on above: Result Comment: When [...] for this test is supported by the [place] of Health and Human Service's declaration that [...] used). Performed By: #### C VDTBH #### [facility] [address] [place] [address] Dr. Mynor Ynu GROUP A STREP CULTUREon 07-11 S. pyogenes Ag Ql (Unsp spec) Culture Observations: NEGATIVE FOR GROUP A STREPTOCOCCUS. Normal [facility] Comment on above: Performed By: #### G RASTCX #### [facility] [address] [place], [place] [address] Dr. Mynor Yun INFLUENZA A AND B AGon 07-28 INFLUANEGH SEE BELOW Normal [facility] Comment on above: Result Comment: Nega tive for Flu A protein angiten. Infection due to Flu A cannot be ruled out. Flu A angiten in the sample may be below the detection limit of the test. Performed By: #### I NFLUAB #### [facility] [address] [place] [address] Dr. Mynor Yun INFLUBNEG SEE BELOW Normal [facility] Comment on above: Result Comment: Nega tive for Flu B protein antigen. Infection due to Flu B cannot be ruled out. Flu B antigen in the sample may be below the detection limit of the test. Performed By: #### I NFLUAB #### [facility] [address] [place] [address] Dr. Mynor Yun INFLUENZA A AG Negative Normal NEGATIVE SEE COMMENT [facility] Comment on above: Performed By: #### I NFLUAB #### [facility] [address] [place] [address] Dr. Mynor Yun INFLUENZA B AG Negative Normal NEGATIVE SEE COMMENT [facility] Comment on above: Performed By: #### I NFLUAB #### [facility] [address] [place] [address] Dr. Mynor Yun INTERNAL CONTROLS Within Normal Limits Normal Wi thin Normal Limits [facility] Comment on above: Performed By: #### I NFLUAB #### [facility] [address] [place] [address] Dr. Mynor Yun STREPT SCREENon 07-28-2022 STREP SCREEN A Negative Normal NEGATIVE [facility] Comment on above: Performed By: #### S SCRN #### [facility] [address] [place] [address] Dr. Mynor Yun XR SINUSES 3 VIEWS [...] by: KELLIE SMALLS Date: 2022-02-01 09:58 Normal [facility] HAND LEFT 3 [facility] 12-29-2021 HAND LEFT 3 [facility] Department of Radiology [address] [place] [address] Patient Name: RAKESH PIÑA : 1975 Sex: M Age: Race: White Pt. Location: Patient Status: D Ordered Date: 12/29/2021 11:45:00 AM Completed Date: 12/29/2021 11:50 AM Requesting Provider: LORI DALLAS Attending Provider: LORI DALLAS Report Copy To: Signs & Symptoms: M79.642 Pain in left hand I10 History: Comments: Evaluate Exam: HAND LEFT 3 [facility] HAND LEFT [address] [facility] 12/29/2021 11:50 AM CLINICAL INDICATIONS: M79.642 Pain [...] alignment. Electronically signed: Edgardo Montana. Transcribed by: [email or web address], User Resident: Electronically Signed by: EDGARDO MONTANA @ 12/31/2021 08:55 AM Normal [facility] Comment on above: Order Comment: Evalu ate HAND LEFT 3 [facility] 12-08-2021 HAND LEFT 3 [facility] Department of Radiology [address] [place] [id number] Patient Name: RAKESH PIÑA : 1975 Sex: M Age: Race: White Pt. Location: Patient Status: D Ordered Date: 12/08/2021 1:25:00 PM Completed Date: 12/08/2021 01:29 PM Requesting Provider: LORI DALLAS Attending Provider: LORI DALLAS Report Copy To: Signs & Symptoms: M79.642 Pain in left hand I10 History: [place] Comments: Evaluate Exam: HAND LEFT 3 [facility] HAND LEFT 3 [facility] 12/08/2021 1:29 PM [...] bridging. Electronically signed: Ronaldo Major. Transcribed by: [email or web address], User Resident: Electronically Signed by: RONALDO MAJOR @ 12/09/2021 04:04 PM Normal [facility] Comment on above: Order Comment: Evalu ate HAND LEFT 3 [facility] 11-14-2021 HAND LEFT 3 [facility] Department of Radiology [address] [place] [address] Patient Name: RAKESH PIÑA : [...] fracture. Electronically signed: Timo Smith. Transcribed by: [email or web address], User Resident: Electronically Signed by: TIMO Eleazar SMITH @ 11/14/2021 08:02 PM Normal [facility] Comment on above: Order Comment: Views (X-RAY, HAND): PA, Lateral, Oblique TESTOSTERONE, TOTALon 2021 Testosterone [Mass/Vol] 411 ng/dL Normal 264-916 [facility] Comment on above: Result Comment: Adul t male reference interval is based on a population of healthy nonobese males (BMI <30) between 19 and 39 years old. precious Perdue.al. JCEM 2017,102;8000-5358. PMID: [id number]. Performed By: #### T ESTTOT #### [facility] [address] [place] [address] Dr. Mynor Yun CBC AUTO DIFFon 11-11-2021 BASO # 0.0 103/ul Normal 0.0-0.1 [facility] Comment on above: Performed By: #### C BC #### [facility] [address] [place] [address] Dr. Mynor Yun Basophils/100 WBC (Bld) 0.2 % Normal 0.2-2.0 [facility] Comment on above: Performed By: #### C BC #### [facility] [address] [place] [address] Dr. Mynor Yun EO # 0.1 103/ul Normal 0.0-0.7 [facility] Comment on above: Performed By: #### C BC #### [facility] [address] [place] [address] Dr. Mynor Yun Eosinophils/100 WBC (Bld) 1.2 % Normal 0.9-7.0 [facility] Comment on above: Performed By: #### C BC #### [facility] [address] [place] [address] Dr. Mynor Yun Erythrocyte distribution width (RBC) [Ratio] 14.3 % Normal 11.0-15.0 [facility] Comment on above: Performed By: #### C BC #### [facility] [address] [place] [address] Dr. Mynor Yun Hematocrit (Bld) [Volume fraction] 47.3 % Normal 42.0-54.0 [facility] Comment on above: Performed By: #### C BC #### [facility] [address] [place] [address] Dr. Mynor Yun Hemoglobin (Bld) [Mass/Vol] 15.2 g/dL Normal 14.0-18.0 [facility] Comment on above: Performed By: #### C BC #### [facility] [address] [place] [address] Dr. Mynor Yun IG # 0.03 10e3/ul Normal 0.00-0.03 [facility] Comment on above: Performed By: #### C BC #### [facility] [address] [place] [address] Dr. Mynor Yun IG % 0.3 % Normal 0.0-0.5 [facility] Comment on above: Performed By: #### C BC #### [facility] [address] [place] [address] Dr. Mynor Yun LYMPH # 1.6 103/ul Normal 1.2-3.8 [facility] Comment on above: Performed By: #### C BC #### [facility] [address] [place] [address] Dr. Mynor Yun Lymphocytes/100 WBC (Bld) 18.4 % Critically low 20.5-60.0 [facility] Comment on above: Performed By: #### C BC #### [facility] [address] [place] [address] Dr. Mynor Yun MANUAL DIFF REQ NO Normal [facility] Comment on above: Performed By: #### C BC #### [facility] [address] [place] [address] Dr. Mynor Yun MCH (RBC) [Entitic mass] 28.8 pg Normal 25.9-34.0 [facility] Comment on above: Performed By: #### C BC #### [facility] [address] [place] [address] Dr. Mynor Yun MCHC (RBC) [Mass/Vol] 32.1 g/dL Normal 29.9-35.2 [facility] Comment on above: Performed By: #### C BC #### [facility] [address] [place] [address] Dr. Mynor Yun MCV (RBC) [Entitic vol] 89.8 fL Normal 80.0-94.0 [facility] Comment on above: Performed By: #### C BC #### [facility] [address] [place] [address] Dr. Mynor Yun MONO # 0.7 103/ul Normal 0.3-0.8 [facility] Comment on above: Performed By: #### C BC #### [facility] [address] [place] [address] Dr. Myonr Yun Monocytes/100 WBC (Bld) 8.4 % Normal 1.7-12.0 [facility] Comment on above: Performed By: #### C BC #### [facility] [address] [place] [address] Dr. Mynor Yun NEUT # 6.2 103/ul Normal 1.4-6.5 [facility] Comment on above: Performed By: #### C BC #### [facility] [address] [place] [address] Dr. Mynor Yun Neutrophils/100 WBC (Bld) 71.5 % Normal 43.0-75.0 [facility] Comment on above: Performed By: #### C BC #### [facility] [address] [place] [address] Dr. Mynor Yun Platelet mean volume (Bld) [Entitic vol] 8.7 fL Critically low 9.5-13.5 [facility] Comment on above: Performed By: #### C BC #### [facility] [address] [place] [address] Dr. Mynor Yun PLT 263 103/ul Normal 150-450 [facility] Comment on above: Performed By: #### C BC #### [facility] [address] [place] [address] Dr. Mynor Yun RBC 5.27 106/ul Normal 4.70-6.10 [facility] Comment on above: Performed By: #### C BC #### [facility] [address] [place] [address] [address] Mynor Yun WBC 8.7 103/ul Normal 4.0-11.0 [facility] Comment on above: Performed By: #### C BC #### [facility] [address] [place] [address] [address] Mynor Yun LIPID PROFILEon 11-11-2021 CHOL-HDL RATIO NORM SEE BELOW Normal [facility] Comment on above: Result Comment: 3.3 - 4.4 LOW RISK 4.4 - 7.1 AVERAGE RISK 7.1 - 11.0 MODERATE RISK >11.0 HIGH RISK Performed By: #### S SCRN #### [facility] [address] [place] [address] Dr. Mynor Yun Cholesterol [Mass/Vol] 129 mg/dL Normal <=200 [facility] Comment on above: Performed By: #### S SCRN #### [facility] [address] [place] [address] [address] Mynor Yun Cholesterol in HDL [Mass/Vol] 34 mg/dL Normal [facility] Comment on above: Performed By: #### S SCRN #### [facility] [address] [place] [address] [address] Mynor Yun Cholesterol in LDL [Mass/Vol] 82.2 mg/dL Normal [facility] Comment on above: Performed By: #### S SCRN #### [facility] [address] [place] [address] [address] Mynor Yun Cholesterol.total/Chol esterol in HDL [Mass ratio] 3.8 {ratio} Normal [facility] Comment on above: Performed By: #### S SCRN #### [facility] [address] [address] [address] Myonr Yun HDL NORMAL > or = 60 mg/dl - LO W CARDIOVASCULAR RISK <40 mg/dl - HIGH CARDIOVASCULAR RISK Normal [facility] Comment on above: Performed By: #### S SCRN #### [facility] [address] [place] [address] [address] Mynor Yun LDL CALC NORMAL SEE BELOW Normal [facility] Comment on above: Result Comment: <100 mg/dl OPTIMAL 100 - 129 mg/dl NEAR OR ABOVE OPTIMAL 130 - 159 mg/dl BORDERLINE HIGH 160 - 189 mg/dl HIGH >190 mg/dl VERY HIGH Performed By: #### S SCRN #### [facility] [address] [address] [address] Mynor Yun Triglyceride [Mass/Vol] 64 mg/dL Normal <=150 [facility] Comment on above: Performed By: #### S SCRN #### [facility] [address] [place] [address] [address] Mynor Yun VLDL CALC 12.8 mg/dL Normal [facility] Comment on above: Performed By: #### S SCRN #### [facility] [address] [place] [address] [address] Mynor Yun PROF 14(COMP METB)on 022 Albumin [Mass/Vol] 3.8 g/dL Normal 3.5-5.0 [facility] Comment on above: Performed By: #### T SH, LIPID, CMP #### [facility] [address] [address] [address] Mynor Yun Albumin/Globulin [Mass ratio] 0.9 {ratio} Normal [facility] Comment on above: Performed By: #### T SH, LIPID, CMP #### [facility] [address] [address] [address] Mynor Yun ALP [Catalytic activity/Vol] 76 U/L Normal 38-126 [facility] Comment on above: Performed By: #### T SH, LIPID, CMP #### [facility] [address] [address] [address] Mynor Yun ALT [Catalytic activity/Vol] 49 U/L Normal 21-72 [facility] Comment on above: Performed By: #### T SH, LIPID, CMP #### [facility] [address] [address] [address] Mynor Yun Anion gap [Moles/Vol] 11.2 mmol/L Normal [facility] Comment on above: Performed By: #### T SH, LIPID, CMP #### [facility] [address] [address] [address] Mynor Yun AST [Catalytic activity/Vol] 31 U/L Normal 17-59 [facility] Comment on above: Performed By: #### T SH, LIPID, CMP #### [facility] [address] [address] [address] Mynor Yun Bilirubin [Mass/Vol] 0.5 mg/dL Normal 0.2-1.3 [facility] Comment on above: Performed By: #### T SH, LIPID, CMP #### [facility] [address] [place] [address] Dr. Mynor Yun Calcium [Mass/Vol] 9.0 mg/dL Normal 8.4-10.2 [facility] Comment on above: Performed By: #### T SH, LIPID, CMP #### [facility] [address] [place] [address] Dr. Mynor Yun Chloride [Moles/Vol] 104 mmol/L Normal 98-107 [facility] Comment on above: Performed By: #### T SH, LIPID, CMP #### [facility] [address] [place] [address] Dr. Mynor Yun CO2 [Moles/Vol] 30.6 mmol/L Critically high 22.0-30.0 [facility] Comment on above: Performed By: #### T SH, LIPID, CMP #### [facility] [address] [place] [address] Dr. Mynor Yun Creatinine [Mass/Vol] 0.95 mg/dL Normal 0.66-1.25 [facility] Comment on above: Performed By: #### T SH, LIPID, CMP #### [facility] [address] [place] [address] Dr. Mynor Yun EGFR-AF CHILEAN >60 Normal >=60 [facility] Comment on above: Performed By: #### T SH, LIPID, CMP #### [facility] [address] [place] [address] Dr. Mynor Yun EGFR-NON AF CHILEAN >60 Normal >=60 [facility] Comment on above: Performed By: #### T SH, LIPID, CMP #### [facility] [address] [place] [address] Dr. Mynor Yun Globulin (S) [Mass/Vol] 4.3 g/dL Normal [facility] Comment on above: Performed By: #### T SAMARIA, LIPID, CMP #### [facility] [address] [place] [address] Dr. Mynor Yun Glucose [Mass/Vol] 104 mg/dL Normal 74-106 [facility] Comment on above: Performed By: #### T SAMARIA, LIPID, CMP #### [facility] [address] [place] [address] Dr. Mynor Yun Potassium [Moles/Vol] 3.8 mmol/L Normal 3.4-5.0 [facility] Comment on above: Performed By: #### T SAMARIA, LIPID, CMP #### [facility] [address] [place] [address] Dr. Mynor Yun Protein [Mass/Vol] 8.1 g/dL Normal 6.1-8.2 [facility] Comment on above: Performed By: #### T SAMARIA, LIPID, CMP #### [facility] [address] [place] [address] Dr. Mynor Yun Sodium [Moles/Vol] 142 mmol/L Normal 137-145 [facility] Comment on above: Performed By: #### T SAMARIA, LIPID, CMP #### [facility] [address] [place] [address] Dr. Mynor Yun Urea nitrogen [Mass/Vol] 11.0 mg/dL Normal 9.0-20.0 [facility] Comment on above: Performed By: #### T SH, LIPID, CMP #### [facility] [address] [place] [address] Dr. Mynor Yun Urea nitrogen/Creatinine [Mass ratio] 11.6 mg/mg Normal [facility] [facility] Comment on above: Performed By: #### T SAMARIA, LIPID, CMP #### [facility] [address] [place] [address] Dr. Mynor Yun TSHon 11-11-2021 TSH 1.612 uIU/mL Normal 0.470-4.680 [facility] Comment on above: Performed By: #### T SH, LIPID, CMP #### [facility] [address], [place] [address] Dr. Mynor Yun TSH RANGE SEE BELOW Normal [facility] Comment on above: Result Comment: <0.3 4 UIU/ml HYPERTHYROID 0.34-5.60 UIU/ml EUTHYROID >5.60 UIU/ml HYPOTHYROID Performed By: #### T SH, LIPID, CMP #### [facility] [address] [address] [address] Mynor Yun Vital Signs Date Time Vital Sign Value Performing Clinician Facility 04-24-2025 09:55-0400 Body height 175.3 cm Nury Potter MD Work Phone: [facility] 04-24-2025 09:55-0400 Body mass index (BMI) [Ratio] 56.74 kg/m2 Nury Potter MD Work Phone: [facility] 04-24-2025 09:55-0400 Body weight 174.27 kg Nury Potter MD Work Phone: [facility] 03-19-2025 11:42-0400 Body height 175.26 cm Effie Torsten [employer]ER[employer]C Work Phone: [facility] 03-19-2025 11:42-0400 Diastolic blood pressure 83 mm[Hg] Effie Torsten [employer] WORKER-C Work Phone: [facility] 03-19-2025 11:42-0400 Heart rate 79 /min Effie Torsten [employer] WORKER-C Work Phone: [facility] 03-19-2025 11:42-0400 Respiratory rate 12 /min Effie Torsten [employer] WORKER-C Work Phone: [facility] 03-19-2025 11:42-0400 Systolic blood pressure 136 mm[Hg] Effie Torsten [employer] WORKER[employer]C Work Phone: [facility] 02-10-2025 10:00-0400 Body mass index (BMI) [Ratio] 56.85 kg/m2 Iris Quinn LD [facility] 02-10-2025 10:00-0400 Body weight 174.63 kg [facility] 01-23-2025 09:34-0400 Body height 175.3 cm Nury Potter MD Work Phone: [facility] 01-23-2025 09:34-0400 Body mass index (BMI) [Ratio] 56.88 kg/m2 Nury Potter MD Work Phone: [facility] 01-23-2025 09:34-0400 Body weight 174.73 kg Nury Potter MD Work Phone: [facility] 01-23-2025 09:34-0400 Diastolic blood pressure 108 mm[Hg] Nury Potter MD Work Phone: [facility] 01-23-2025 09:34-0400 Systolic blood pressure 179 mm[Hg] Nury Potter MD Work Phone: [facility] 01-08-2025 09:00-0400 Body mass index (BMI) [Ratio] 55.17 kg/m2 Iris Kai LD [facility] 01-08-2025 09:00-0400 Body weight 176.9 kg [facility] 12-09-2024 09:00-0400 Body height 179.1 cm [facility] 11-28-2024 09:48-0400 Body height 179.1 cm Nury Potter MD Work Phone: [facility] 11-28-2024 09:48-0400 Body mass index (BMI) [Ratio] 55.17 kg/m2 Nury Potter MD Work Phone: [facility] 11-28-2024 09:48-0400 Body weight 176.9 kg Nury Potter MD Work Phone: [facility] 11-05-2024 10:17-0500 Body height 175.3 cm Pedro Conte DPM Work Phone: [facility] 11-05-2024 10:17-0500 Body mass index (BMI) [Ratio] 55.38 kg/m2 Pedro Rusher DPM Work Phone: [facility] 11-05-2024 10:17-0500 Body weight 170.1 kg Pedro Rusher DPM Work Phone: [facility] 10-08-2024 10:31-0500 Body height 175.3 cm Pedro Rusher DPM Work Phone: [facility] 10-08-2024 10:31-0500 Body mass index (BMI) [Ratio] 55.38 kg/m2 Pedro Rusher DPM Work Phone: [facility] 10-08-2024 10:31-0500 Body weight 170.1 kg Pedro Rus DPM Work Phone: [facility] Healthcare Encounters Encounter Date Encounter Type Care Provider Facility Start: 04-24-2025 End: 04-24-2025 Office outpatient visit 25 minutes Nury Potter MD Work Phone: [facility] Comment on above: Insulin resistance ( Primary Dx); Incisional hernia, without obstruction or gangrene; Low 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; Morbid obesity with BMI of 50.0-59.9, adult ([facility]) Start: 04-24-2025 End: 04-24-2025 ambulatory NURY POTTER [facility] Start: 03-19-2025 End: 03-19-2025 ambulatory Effie Mancilla [employer] WORKER-C Work Phone: [facility] Work Phone: Start: 03-19-2025 End: 03-19-2025 Patient encounter procedure Jose Carlos Whitt DO -[facility] Work Phone: Start: 03-16-2025 End: 03-16-2025 Orders Only Nury Potter MD Work Phone: [facility]-Bariatric Comment on above: Low 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 Start: 02-10-2025 End: 02-10-2025 Telemedicine consultation with patient Iris Quinn DEION [facility] Comment on above: Dietary counseling a nd surveillance (Primary Dx); Morbid obesity (CMS-HCC) Start: 02-10-2025 End: 02-10-2025 [facility] Start: 01-23-2025 End: 01-23-2025 Office outpatient visit 25 minutes Nury Potter MD Work Phone: [facility] Comment on above: Insulin resistance ( Primary Dx); Morbid obesity (CMS-HCC); Low 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 Start: 01-23-2025 End: 01-23-2025 [facility] Start: 01-08-2025 End: 01-08-2025 [facility] Start: 01-08-2025 End: 01-08-2025 Telemedicine consultation with patient Iris Quinn DEION [facility] Comment on above: Dietary counseling a nd surveillance (Primary Dx); Morbid obesity ([facility]); History of sleeve gastrectomy Start: 12-29-2024 End: 12-29-2024 ambulatory Wilbert Buckner MD Facility:[facility] Start: 12-09-2024 End: 12-09-2024 Telemedicine consultation with patient Iris Quinn DEION [facility] Comment on above: Dietary counseling a nd surveillance (Primary Dx); Morbid obesity ([facility]-H[facility]); History of sleeve gastrectomy Start: 12-09-2024 End: 12-09-2024 [facility] Start: 12-01-2024 End: 12-01-2024 [facility] Start: 11-28-2024 End: 11-28-2024 Office outpatient new 45 minutes uNry Potter MD Work Phone: [facility] Comment on above: History of sleeve ga strectomy (Primary Dx); Morbid obesity with BMI of 50.0-59.9, adult ([facility]) Start: 11-28-2024 End: 11-28-[address] [facility] Start: 11-26-2024 End: 11-26-2024 ambulatory PEDRO CONTE Not Available Start: 11-05-2024 End: 11-05-2024 Bamboo flowsheet Pedro Conte DPM Work Phone: [facility] Start: 11-05-2024 End: 11-05-2024 Bamboo flowsheet Pedro Conte DPM Work Phone: [facility] Start: 11-05-2024 End: 11-05-2024 ambulatory PEDRO CONTE Not Available Start: 11-05-2024 End: 11-05-2024 Postop follow up visit related to original px Pedro Conte DPM Work Phone: [facility] Comment on above: Valgus deformity, no t elsewhere classified, right ankle (Primary Dx); Valgus deformity, not elsewhere classified, left ankle; Instability of left foot joint; Instability of right foot joint; Leg length discrepancy; Posterior tibial tendon dysfunction, bilateral Start: 10-08-2024 End: 10-08-2024 Bamboo flowsheet Pedro Conte DPM Work Phone: [facility] Start: 10-08-2024 End: 10-08-2024 Bamboo flowsheet Pedro Conte DPM Work Phone: [facility] Start: 10-08-2024 End: 10-30-2024 Telephone encounter Emily Kaur MA [facility] Comment on above: [facility] Start: 10-08-2024 End: 10-08-2024 Office outpatient new 30 minutes Pedro Conte DPM Work Phone: [facility] Comment on above: Valgus deformity, no [...] Start: 01-23-2024 End: 01-26-2024 ambulatory EFFIE TORSTEN [facility] Start: 01-16-2024 End: 01-16-2024 ambulatory Effie L Torsten Facility:[facility] Start: 01-14-2024 End: 01-14-2024 ambulatory Effie L Torsten Facility:[facility] Start: 01-09-2024 End: 01-09-2024 ambulatory Effie L Torsten Facility:[facility] [place] Start: 08-23-2023 End: 08-23-2023 Lab Drop off Effie L Torsten [facility] Start: 08-23-2023 End: 08-23-2023 ambulatory Effie L Torsten Facility:[facility] Start: 07-26-2023 End: 07-26-2023 ambulatory Effie L Torsten Facility:[facility] [place] Start: 06-21-2023 End: 06-21-2023 ambulatory Effie L Torsten Facility:[facility] [place] Start: 05-22-2023 End: 05-22-2023 ambulatory Effie L Torsten Facility:[facility] [place] Start: 04-24-2023 End: 04-24-2023 ambulatory [facility] Start: 03-19-2023 End: 03-19-2023 ambulatory Effie L Torsten Facility:[facility] Start: 03-19-2023 End: 03-19-2023 Lab Drop off Effie L Torsten [facility] Start: 03-19-2023 End: 03-19-2023 ambulatory Effie L Torsten [facility] Start: 03-15-2023 ambulatory [facility] Start: 07-28-2022 End: 07-28-[address] LULU BLANK Facility:[facility] Start: 02-01-2022 End: 02-02-[address] LULU BLANK Facility:[facility] Start: 11-15-2021 Encounter for genera l adult medical examination without abnormal findings DR LULU BLANK [facility] Start: 11-11-2021 End: 11-12-[address] [...] Adult BMI Screening Adult BMI Screen ing [facility] Start: 01-23-2026 Adult BMI Screening Adult BMI Screen ing [facility] Start: 01-23-2026 Tobacco Screening Tobacco Screening [facility] Start: 01-08-2026 Adult BMI Screening Adult BMI Screen ing [facility] Start: 12-09-2025 Adult BMI Follow Up Plan Adult BMI Follow Up Plan [facility] Start: 11-28-2025 Adult BMI Screening Adult BMI Screen ing [facility] Start: 07-25-2025 End: 04-24-2026 Basic metabolic 2000 panel - Serum or Plasma Basic Metabolic Panel Lab Routine Low 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 Expected: 07/25/2025 (Approximate), Expires: 04/24/2026 [facility] Comment on above: Expected: 07/25/2025 (Approximate), Expires: 04/24/2026 Start: 07-25-2025 End: 04-24-2026 CBC W Auto Differential panel - Blood CBC auto differential Lab Routine Low 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 Expected: 07/25/2025 (Approximate), Expires: 04/24/2026 [facility] Comment on above: Expected: 07/25/2025 (Approximate), Expires: 04/24/2026 Start: 07-25-2025 End: 04-24-2026 Insulin, Free and Total, Serum Insulin, Free and Total, Serum Lab Routine Low 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 Expected: 07/25/2025 (Approximate), Expires: 04/24/2026 [facility] Comment on above: Expected: 07/25/2025 (Approximate), Expires: 04/24/2026 Start: 07-25-2025 End: 04-24-2026 Prostatic specific antigen screen Prostatic specific antigen screen Lab Routine Low 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 Expected: 07/25/2025 (Approximate), Expires: 04/24/2026 [facility] Comment on above: Expected: 07/25/2025 (Approximate), Expires: 04/24/2026 Start: 07-25-2025 End: 04-24-2026 Testosterone, Total and Free, S Testosterone, Total and Free, S Lab Routine Low 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 Expected: 07/25/2025 (Approximate), Expires: 04/24/2026 [facility] Comment on above: Expected: 07/25/2025 (Approximate), Expires: 04/24/2026 Start: 05-11-2025 Influenza vaccination Influenza Vacc ine [facility] Start: 05-01-2025 End: 04-24-2026 CT Abdomen and Pelvis W contrast IV CT abdomen and pelvis with contrast Imaging Routine Incisional hernia, without obstruction or gangrene Expected: 05/01/2025 (Approximate), Expires: 04/24/2026 [employer] Work Phone: Comment on above: Expected: 05/01/2025 (Approximate), Expires: 04/24/2026 Start: 04-25-2025 End: 01-23-2026 Basic metabolic 2000 panel - Serum or Plasma Basic Metabolic Panel Lab Routine Insulin resistance Expected: 04/25/2025 (Approximate), Ex[facility]: 01/23/2026 [facility] Comment on above: Expected: 04/25/2025 (Approximate), Expires: 01/23/2026 Start: 04-25-2025 End: 01-23-2026 Insulin, Free and Total, Serum Insulin, Free and Total, Serum Lab Routine Insulin resistance Expected: 04/25/2025 (Approximate), Expires: 01/23/2026 [facility] Comment on above: Expected: 04/25/2025 (Approximate), Expires: 01/23/2026 Start: 04-25-2025 End: 01-23-2026 Testosterone, Total and Free, S Testosterone, Total and Free, S Lab Routine Low 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 Expected: 04/25/2025 (Approximate), Expires: 01/23/2026 [employer] Work Phone: Comment on above: Expected: 04/25/2025 (Approximate), Expires: 01/23/2026 Start: 04-24-2025 End: 04-24-2025 Patient encounter procedure 04/24/2025 10:00 AM EDT [facility] [address] [place] [phone] Nury Potter MD [address] [place] [address] [facility] Start: 02-10-2025 End: 02-10-2025 Telemedicine consultation with patient 02/10/2025 10:00 AM EDT Telemedicine [facility] [address] [phone] Iris Quinn LD [facility] Start: 01-23-2025 End: 01-23-2025 Patient encounter procedure 01/23/2025 9:30 AM EDT [facility] [address] [place] [phone] Nury Potter MD [address] [place] [address] [facility] Start: 01-08-2025 End: 01-08-2025 Telemedicine consultation with patient 01/08/2025 9:00 AM EDT Telemedicine [facility] [address] [phone] Iris Quinn LD [facility] Start: 12-09-2024 End: 12-09-2024 Telemedicine consultation with patient 12/09/2024 9:00 AM EDT Telemedicine [facility] [address] [phone] Iris Quinn LD [facility] Start: 11-11-2024 End: 11-11-2024 Patient encounter procedure 11/11/2024 4:45 PM EST Office Visit [facility] [address] [place] [address] Lanny Guthrie DO [address] [place] [address] [facility] Start: 11-05-2024 End: 11-05-2024 Patient encounter procedure 11/05/2024 10:00 AM EST Office Visit [facility] [address] [place] [phone] Pedro Conte, DPM [address] [place] [address] [facility] Start: 10-08-2024 End: 10-08-2024 Patient encounter procedure 10/08/2024 10:45 AM EST Office Visit [facility] [address] [place] [phone] Pedro Conte DPM [address] [place], [place] [id number] Arrived [facility] Comment on above: Arrived Start: 05-11-2024 COVID-19 Vaccine () COVID-19 Vaccine ( season) [facility] Start: 1996 DTaP,Tdap and Td Vac cines (1 - Tdap) DTaP,Tdap and Td Vaccines (1 - Tdap) [facility] Start: 1995 Adult BMI Follow Up Plan Adult BMI Follow Up Plan [facility] Start: 1989 Depression Screening Depression Scre ening [facility] Start: 1989 Tobacco Screening Tobacco Screening [facility] Start: 1977 Screening for malign ant neoplasm of colon [facility] End: 11-28-2025 CBC W Auto Differential panel - Blood CBC auto differential Lab Routine History of sleeve gastrectomy 1 Occurrences starting 11/28/2024 until 11/28/2025 [employer] Work Phone: Comment on above: 1 Occurrences starti ng 11/28/2024 until 11/28/2025 End: 03-16-2026 CBC W Auto Differential panel - Blood CBC auto differential Lab Routine Low 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 1 Occurrences starting 03/16/2025 until 03/16/2026 [employer] Work Phone: Comment on above: 1 Occurrences starti ng 03/16/2025 until 03/16/2026 End: 11-28-2025 Cyanocobalamin vitamin b-12 Vitamin B12 Lab Routine History of sleeve gastrectomy 1 Occurrences starting 11/28/2024 until 11/28/2025 [facility] Comment on above: 1 Occurrences starti ng 11/28/2024 until 11/28/2025 End: 11-28-2025 Hemoglobin A1c/Hemoglobin.total in Blood Hemoglobin A1c Lab Routine History of sleeve gastrectomy 1 Occurrences starting 11/28/2024 until 11/28/2025 [facility]: 1 Occurrences starti ng 11/28/2024 until 11/28/2025 End: 11-28-2025 Insulin, Free and Total, Serum Insulin, Free and Total, Serum Lab Routine History of sleeve gastrectomy 1 Occurrences starting 11/28/2024 until 11/28/2025 [facility] Comment on above: 1 Occurrences starti ng 11/28/2024 until 11/28/2025 End: 11-28-2025 Iron [Mass/volume] in Serum or Plasma Iron Lab Routine History of sleeve gastrectomy 1 Occurrences starting 11/28/2024 until 11/28/2025 [facility] Comment on above: 1 Occurrences starti ng 11/28/2024 until 11/28/2025 End: 11-28-2025 Liver panel Liver panel Lab Routine History of sleeve gastrectomy 1 Occurrences starting 11/28/2024 until 11/28/2025 [facility] Comment on above: 1 Occurrences starti ng 11/28/2024 until 11/28/2025 End: 11-28-2025 Parathyroid Hormone, intact Parathyroid Hormone, intact Lab Routine History of sleeve gastrectomy 1 Occurrences starting 11/28/2024 until 11/28/2025 [facility] Comment on above: 1 Occurrences starti ng 11/28/2024 until 11/28/2025 End: 03-16-2026 PSA w/ RFLX to Free PSA PSA w/ RFLX to Free PSA Lab Routine Low 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 1 Occurrences starting 03/16/2025 until 03/16/2026 [facility] Comment on above: 1 Occurrences starti ng 03/16/2025 until 03/16/2026 End: 11-28-2025 Testosterone, Total and Free, S Testosterone, Total and Free, S Lab Routine History of sleeve gastrectomy 1 Occurrences starting 11/28/2024 until 11/28/2025 [facility] Comment on above: 1 Occurrences starti ng 11/28/2024 until 11/28/2025 End: 11-28-2025 Thyrotropin [Units/volume] in Serum or Plasma TSH Lab Routine History of sleeve gastrectomy 1 Occurrences starting 11/28/2024 until 11/28/2025 [facility] Comment on above: 1 Occurrences starti ng 11/28/2024 until 11/28/2025 End: 11-28-2025 Vitamin D 25 hydroxy Vitamin D 25 hydroxy Lab Routine History of sleeve gastrectomy 1 Occurrences starting 11/28/2024 until 11/28/2025 [facility] Comment on above: 1 Occurrences starti ng 11/28/2024 until 11/28/2025 Immunizations Immunization Date Immunization Notes Care Provider Chandni cardoza 07-08-2024 influenza, seasonal, injectable, preservative free Pedro Rusher DPM Work Phone: [facility] 07-08-2024 influenza virus vacc ine, unspecified formulation Iris ALBARRAN [facility] 05-31-2023 influenza virus vacc ine, unspecified formulation Effie Torsten [facility] 05-31-2023 influenza, injectabl e, quadrivalent, preservative free Pedro Rusher DPM Work Phone: [facility] 06-07-2022 influenza virus vacc ine, unspecified formulation Effie Torsten [facility] 06-07-2022 influenza, injectabl e, quadrivalent, preservative free Pedro Rusher DPM Work Phone: [facility] 11-12-2020 SARS-CoV-2 (COVID-19 ) mRNA BNT-162b2 vax Effie Torsten [facility] 10-22-2020 SARS-CoV-2 (COVID-19 ) mRNA BNT-162b2 vax Effie Torsten [facility] 03-10-2019 pneumococcal polysaccharide vaccine, 23 valent Effie Torsten [facility] 08-18-2009 novel influenza-H1N1 -09, preservative-free, injectable Pedro Rusher DPM Work Phone: [facility] Healthcare Payers Date Payer Category Payer Unknown 2022 Blue Cross Blue Shield BCBS [id number] 2022 Blue Cross Blue [facility] [id number] 2022 Unknown [id number] 2019 Unknown [id number] 2013 Medicare 1977 Unknown [id number] 2.16.840.1.546952.3.579.2. 593 1977 Unknown [id number] 2.16.840.1.108627.3.579.2. 593 1977 Unknown [id number] 2.16.840.1.046707.3.579.2. 593 1977 Unknown [id number] 2.16.840.1.869174.3.579.2. 593 1977 Unknown [id number] 2.16.840.1.204210.3.579.2. 182 1977 Unknown [id number] 2.16.840.1.640861.3.579.2. 182 1977 Unknown [id number] 2.16.840.1.514443.3.579.2. 727 1977 Unknown [id number] 2.16.840.1.648278.3.579.2. 1977 Unknown [id number] 2.16.840.1.350115.3.579.2. 1977 Unknown [id number] 2.16.840.1.980339.3.579.2. 1977 Unknown [id number] 2.16.840.1.142358.3.579.2. 1977 Unknown [id number] 2.16.840.1.139212.3.579.2. 1977 Unknown [id number] 2.16.840.1.883204.3.579.2. 1977 Unknown [id number] 2.16.840.1.994233.3.579.2 1977 Unknown [id number] 2.16.840.1.360066.3.579.2. 1977 Unknown [id number] 2.16.840.1.408930.3.579.2 1977 Unknown [id number] 2.16.840.1.881593.3.579.2. 1977 Unknown [id number] 2.16.840.1.491286.3.579.2. 1258 1977 Unknown [id number] 2.16.840.1.960438.3.579.2. 1258 1977 Unknown [id number] 2.16.840.1.042736.3.579.2. 1258 1977 Unknown [id number] 2.16.840.1.355606.3.579.2. 1286 1977 Unknown [id number] 2.16.840.1.787444.3.579.2. 1977 Unknown [id number] 2.16.840.1.171124.3.579.2. 1977 Unknown [id number] 2.16.840.1.637782.3.579.2. 196 1977 Unknown [id number] 2.16.840.1.766163.3.579.2. 196 1977 Unknown [id number] 2.16.840.1.100910.3.579.2. 196 1977 Unknown [id number] 2.16.840.1.762468.3.579.2. 196 1977 Unknown [id number] 2.16.840.1.865296.3.579.2. 196 1977 Unknown [id number] 2.16.840.1.944094.3.579.2. 1286 1977 Unknown [id number] 2.16.840.1.734516.3.579.2. 1286 1977 Unknown [id number] 2.16.840.1.690871.3.579.2. 1286 1977 Unknown [id number] 2.16.840.1.086005.3.579.2. 1286 1977 Unknown [id number] 2.16.840.1.225694.3.579.2. 1286 1977 Unknown [id number] 2.16.840.1.103368.3.579.2. 1286 1957 Medicare [id number] 1959 Unknown [id number] Medicaid Medicaid [id number] Social History Date Type Detail Facility Start: 03-19-2023 End: 01-23-2025 Tobacco smoking status Ex-smoker (finding) [facility] Tobacco smoking status Never Miguel [facility]ngel Diop [facility] Start: 02-19-2019 End: 04-11-2023 Sex Assigned At Male Lul Echavarria [facility] Start: 04-05-2023 Tobacco smoking stat [facility] Never smoked tobacco [facility] Healthcare Start: 04-05-2023 End: 01-23-2025 Tobacco use and exposure Smokeless tobacco non-user [facility] Start: 10-08-2024 End: 11-05-2024 Alcoholic beverage intake Ex-drinker (finding) [facility] Start: 02-19-2019 End: 04-11-2023 History of Social function [facility] Start: 1977 Sex assigned at Not on file [facility] Start: 04-15-2015 Sex Male (finding) [facility] History of tobacco use Current smoker [facility] History of tobacco use [facility] Start: 01-23-2025 End: 04-24-2025 Alcoholic beverage intake Not Asked [facility] Start: 01-23-2025 Alcohol Comment SOCIALLY [facility] Start: 1975 Sex Assigned At Male [facility] Clinical Notes 11-10-2021 to 04-24-2025 Nury Potter MD - 04/24/2025 10:00 AM EDDEION Grissom - 02/10/2025 10:00 AM EDTPatient InstructionsSajodie Potter MD - 01/23/2025 9:30 AM DEION Loja - 01/08/2025 9:00 AM EDT Note Date & Type Note Facility 04-24-2025 History of Present illness Narrative Bariatric Surgery Progress Note Subjective The patient is a 6-year-old male who had a sleeve gastrectomy in [place] in 2009 that was complicated by bowel [...] pain but does occasionally cause an uncomfortable pressure sensation. He is concerned that his hernia has recurred. We talked about getting a CT to determine for sure if that is what occurred, and if it has he would likely need to return to [facility] where it was originally repaired due to the complexity of his abdominal wall. He feels that he has gotten a little off track over the summer. 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 He does not have much of an appetite in the morning so he has not been having anything to eat until 11:00 a.m.. We talked about the importance of getting something in with protein 1st thing in the morning, so he is going to try drinking a protein shake [...] in 3 months and recheck his labs at that time. Objective Ht 175.3 cm (5' 9 ) Wt (!) 174.3 kg (384 lb 3.2 oz) BMI 56.74 kg/m General appearance: alert & oriented x3, no acute distress, and cooperative Head: Normocephalic, without obvious abnormality, atraumatic Lungs: normal respiratory effort Abdomen: soft, nontender, nondistended, and surgical scars well healed, nonreducible golf ball size bulge in the epigastric region suspicious for recurrent [...] Current Outpatient Medications Medication Sig Dispense Refill MIKE EXTRACT ORAL Take by mouth. buPROPion SR [...] months with labs documented in this encounter [facility] 02-10-2025 History of Present illness Narrative Bariatric Medical Nutrition Therapy Nutritional Assessment/Education Weight check Video Visit via Real-time Synchronous Audiovisual Provider Location: [facility] [address] [place] [phone] Patient Location: Patient's home Video Visit Consent [...] that there are some limitations compared to ilip-sz-knht evaluations. The patient consented to the presence [...] End time: 102 documented in this encounter [facility] 02-10-2025 Instructions DEION Lerma - 02/10/2025 10:00 AM EDT Read the [facility] Bariatric Guide. If you re looking for general health and wellness resources, please visit [email or web address]. 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 The patient consented to the presence [...] with veggies, ham and turkey with regular azerbaijani dressing with a cheeseburger lucas (no bun), [...] iron daily or 1 vitamin daily. 2) 6401-7502 mg calcium in divided doses (2x/day) for sleeve and gastric bypass, 5995-1606 mg in divided doses (3x/day) for SADS [...] [facility] been [facility]. My contact name and number provided if questions or concerns arise. Nutrition Monitoring: To monitor weight to show progress. Start time: 0911 End time: 0940 documented in this encounter [facility] 01-08-2025 Instructions DEION Lerma - 01/08/2025 9:00 AM EDT Read the [facility] Bariatric Guide. If you re looking for general health and wellness resources, please visit [email or web address]. documented in this encounter [facility] 12-09-2024 History of Present illness Narrative Bariatric Medical Nutrition Therapy Nutritional Assessment/Education Session: Post-op Rakesh Piña is a 49 y.o. male who presents for medical nutritional therapy after weight loss surgery. Video Visit via Real-time Synchronous Audiovisual Provider Location: [facility] [address] [place] [phone] Patient Location: Waiting room in [place] (for father's surgery) Video Visit Consent Statement: [...] that there are some limitations compared to mdss-fq-wdfy evaluations. The patient consented to the presence of additional virtual and/or in-person participants. We elected to proceed. Barrier learning assessment: Yes Weight: unable to get one Rakesh had a sleeve gastrectomy in [place] in 2009. He received minimal nutrition information [...] iron daily or 1 vitamin daily. 2) 0262-0907 mg calcium in divided doses (2x/day) for sleeve and gastric bypass, 4426-1021 mg in divided doses (3x/day) for SADS [...] all discussed has been provided within the [facility] Bariatric Guide. My contact name and number provided if questions or concerns arise. Nutrition Monitoring: To monitor weight to show progress. Start time: 0904 End time: 0950 documented in this encounter [facility] 12-09-2024 Instructions DEION Lerma - 12/09/2024 9:00 AM EDT Read the [facility] Bariatric Guide. If you re looking for general health and wellness resources, please visit [email or web address]. documented in this encounter [facility] 11-28-2024 History of Present illness Narrative [facility] PHYSICIANS GENERAL SURGERY [facility] [phone] [facility] SURGICAL WEIGHT LOSS PROGRAM INITIAL EVALUATION Patient: Rakesh Piña Service Date: 11/28/2024 Chief complaint: Wants help with weight loss 15 years after sleeve gastrectomy in [place] The patient is a 49 y.o. year [...] The patient had a sleeve gastrectomy in [place] in 2009. Two days after surgery he began having fever and chills and after workup was found to have an intra-abdominal abscess. He was seen at the [facility] by Crystal Parsons MD and underwent an [...] week based on the recommendations from the [employer]. He is not eager to alegre into another surgery given his past experience. 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 [x] No [] Yes Do you have difficulty opening or closing your jaw? [x] No [] Yes PRESENT ILLNESS: Weight Parameters Initial Bariatric Consult 11/28/2024 Weight: (!) 176.9 kg (390 lb) Height: 179.1 cm (5' 10.5 ) Body mass index is 55.17 kg/m . 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 Alert and oriented. Follows [...] to ensure the accuracy of this automated rotary veneer machine operator, some errors in rotary veneer machine operator may have occurred. documented in this encounter [facility] 11-05-2024 History of Present illness Narrative Images [...] Allergic rhinitis Autonomic dysfunction COVID-19 03/2020 Depression (CMS/HCC) ETD (Eustachian tube dysfunction), bilateral H/O gastric [...] Pedro Conte DPM documented in this encounter [facility] 10-21-2024 Telephone encounter Note Xldc-oy-yylg is scheduled for October 28 at 4:45 pm. They will call our office for the meeting [facility] 10-21-2024 Miscellaneous Notes Xpnz-je-ufrf is scheduled for October 28 at 4:45 [...] was approved. Thanks documented in this encounter [facility] 10-08-2024 Telephone encounter Note Pt was in this morning, Dr. Conte gave him the orthotic form. Rakesh called his insurance and they stated anything over $750 needs precert, and that they cover 1 pair of custom orthotics every 2 calendar years. Told him we would call him with info of est. And if precert was approved. Thanks [facility] 10-08-2024 History of Present illness Narrative Images from the original note were not included. Subjective Patient ID: Rakesh Piña is a 49 y.o. 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 [...] Allergic rhinitis Autonomic dysfunction COVID-19 03/2020 Depression ([facility]) ETD (Eustachian tube dysfunction), bilateral H/O gastric bypass Stomach bypass followed by numerous surgeries to treat infection and sepsis History of medical problems Kt Excretor Hoarseness Hypercholesterolemia ([facility]/HCC) Labyrinthitis chronic LPRD (laryngopharyngeal reflux disease) Lymphedema [...] Pedro Conte DPM documented in this encounter [facility] 08-23-2023 Evaluation + Plan note [facility] 08/23/23 [facility] 11-10-2021 Note PROCEDURE: XR HAND L [...] authenticated by: KELLIE SMALLS Date: 2021-11-10 13:16 [facility] Evaluation + Plan note Future Appointments Appointment Date:04/23/2023 11:00:00 AM Scheduled Provider:Effie Muhammad Location:[facility] Appointment Type:FM Open [facility] Evaluation note Diagnosis Valgus deformity, not elsewhere classified, right ankle- Primary Valgus deformity, not elsewhere classified, left ankle Instability of left foot joint Instability of right foot joint Leg length discrepancy Unequal leg length (acquired) documented in this encounter [facility] HealthcareEvaluation note* Diagnosis Valgus deformity, not elsewhere classified, right ankle- Primary Valgus deformity, not elsewhere classified, left ankle Instability of left foot joint Instability of right foot joint Leg length discrepancy Unequal leg length (acquired) Posterior tibial tendon dysfunction, bilateral documented in this encounter [facility] HealthcareEvaluation note* Diagnosis History of sleeve gastrectomy- Primary Morbid obesity with BMI of 50.0-59.9, adult (CMS-HCC) [facility] Diagnosis Dietary counseling and surveillance- Primary Morbid obesity (CMS-HCC) Morbid obesity History of sleeve gastrectomy [facility] Diagnosis Dietary counseling and surveillance- Primary Morbid obesity (CMS-HCC) Morbid obesity History of sleeve gastrectomy documented in this encounter [facility] System[facility] note* Diagnosis Insulin resistance- Primary Other abnormal glucose Morbid obesity (CMS-HCC) Morbid obesity Low 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 documented in this encounter [facility] SystemEvaluation note* Diagnosis Dietary counseling and surveillance- Primary Morbid obesity (CMS-HCC) Morbid obesity [facility] Diagnosis Low 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 documented in this encounter [facility]* Diagnosis Onset Date Resolution Status Admit Date Pre-employment examination acute March 19, 2025 10:52am [facility] Work Phone: Evaluation note* Diagnosis Insulin resistance- Primary Other abnormal glucose Incisional hernia, without obstruction or gangrene Low 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 Morbid obesity with BMI of 50.0-59.9, adult ([facility]-HCC) documented in this [facility] Narrative No data available for this section [facility] Discharge instructions No data available for this section [facility]ructionsNot on filedocumented in this encounter [facility]ructionsNot on filedocumented in this encounter [facility] System[facility]ructionsNot on filedocumented in this encounter [facility] SystemInstructionsNot on filedocumented in this encounter [facility] No data available for this section [facility] Hospital[facility] for referral (narrative)No reason for referral information [facility] Work Phone: Summary Purpose Family History No Family History Records FoundNo Family History Records FoundNo Family History Records FoundNo Family History Records Found No data available for this section No Family History Records FoundNo Family History Records FoundNo Family History Records FoundNo Family History Records FoundNo Family History Records Found Advance Directives No Advanced Directives Records Found Advance Directive Response Recorded Date/ Time Advance Directives No March 19 10:50am Chief Complaint and Reason for Visit Chief Complaint Admit Date Type Copyist Physical March 19, 2025 10:5 2am Reason for Visit Admit Date Pre-employment examination March 19 10:52am Additional Source Comments (unrecognized sect ion and content) No Status Records FoundNo Status Records FoundNo Status Records FoundNo Status Records FoundNo Status Records FoundNo Status Records FoundNo Status Records FoundNo Status Records FoundNo Status Records Found INFORMATION SOURCE (unrecogn ized section and content) DATE CREATED AUTHOR 01/28/2022 [facility] DATE CREATED AUTHOR AUTHOR'S ORGANIZ ATION 08/10/2022 [facility] DATE CREATED AUTHOR AUTHOR'S ORGANIZ ATION 01/28/2024 [facility] DATE CREATED AUTHOR AUTHOR'S ORGANIZ ATION 02/27/2024 [facility] DATE CREATED AUTHOR AUTHOR'S ORGANIZ ATION 11/28/2024 [facility] DATE CREATED AUTHOR AUTHOR'S ORGANIZ ATION 12/07/2024 [facility] DATE CREATED AUTHOR AUTHOR'S ORGANIZ ATION 01/06/2025 [facility] DATE CREATED AUTHOR AUTHOR'S ORGANIZ ATION 02/11/2025 [facility] DATE CREATED AUTHOR AUTHOR'S ORGANIZ ATION 04/26/2025 [facility] Patient Care team informatio n (unrecognized section and content) Automation Operator Relationship Specialty Start Date End Date Lulu Blank MD [address] [place] [phone] PCP - General Family Medicine 04/05/23 Automation Operator Relationship Specialty Start Date End Date Lulu Blank MD [address] [place] [address] PCP - General Family Medicine 04/05/23 Automation Operator Relationship Specialty Start Date End Date uLlu Blank MD [address] [place] [address] PCP - General Family Medicine 04/05/23 Automation Operator Relationship Specialty Start Date End Date Lulu Blank MD [address] [place] [address] PCP - General Family Medicine 04/05/23 Automation Operator Relationship Specialty Start Date End Date Lulu Blank MD [address] [place] [address] PCP - General Family Medicine 04/05/23 Automation Operator Relationship Specialty Start Date End Date Effie Mancilla APRN-DIALYSIS PATIENT CARE TECHNICIAN [facility] [place] [address] PCP - General Nurse Practitioner 11/28/24 Automation Operator Relationship Specialty Start Date End Date Effie Mancilla APRN-DIALYSIS PATIENT CARE TECHNICIAN [facility] [place] [address] PCP - General Nurse Practitioner 11/28/24 Automation Operator Relationship Specialty Start Date End Date Effie Mancilla TRAVEL JOURNALIST-DIALYSIS PATIENT CARE TECHNICIAN [facility] [place], [place] [phone] PCP - General Nurse Practitioner 11/28/24 Automation Operator Relationship Specialty Start Date End Date Effie Mancilla, TRAVEL JOURNALIST-DIALYSIS PATIENT CARE TECHNICIAN [address] [place], [place] [phone] PCP - General Nurse Practitioner 11/28/24 Automation Operator Relationship Specialty Start Date End Date Effie Mancilla, TRAVEL JOURNALIST-DIALYSIS PATIENT CARE TECHNICIAN [address] [place], [place] [phone] PCP - General Nurse Practitioner 11/28/24 Automation Operator Relationship Specialty Start Date End Date Effie Mancilla, TRAVEL JOURNALIST-DIALYSIS PATIENT CARE TECHNICIAN [address] [facility] [address] [place], [place] [phone] PCP - General Nurse Practitioner 11/28/24 Team Status: Active Member Role Status Dates CECILIA BrowningC Primary Care Provider Active Team Status: Inactive Member Role Status Dates Jose Carlos Whitt DO Attending Provider Active Sta rt: March 19, 2025 End: March 19, 2025 CECILIA BrowningC Primary Care Provider Active Start: March 19, 2025 End: March 19, 2025 Automation Operator Relationship Specialty Start Date End Date Effie Mancilla, TRAVEL JOURNALIST-DIALYSIS PATIENT CARE TECHNICIAN [address] [place], [place] [phone] PCP - General Nurse Practitioner 11/28/24 Reason for Visit (unrecogniz ed section and content) Reason Comments 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 [...] Specialty Diagnoses / Procedures Referred By Valente t Referred To Contact Nutrition Diagnoses [place] [address] [place] [phone] Phone: tel: fax: Referral ID Status Reason Start Date Expiration Date Visits Requested Visits Authorized [id number] Authorized Specialty Services Required 11/28/2024 11/28/2025 12 12 Reason Comments Nutrition Counseling Follow-up Specialty Diagnoses / Procedures Referred By Valente t Referred To Contact Nutrition Diagnoses History of sleeve gastrectomy Nury Potter MD [address] [place] [address] Phone: tel: fax: Referral ID Status Reason Start Date Expiration Date Visits Requested Visits Authorized [id number] Authorized Specialty Services Required 11/28/2024 11/28/2025 12 12 Reason Comments ESTABLISHED PATIENT go over labs/1st ref reshor visit with dititian done Reason Comments ESTABLISHED PATIENT go over labs/3 refre bandar visits with dietitian done Goals (unrecognized section and content) Goals [...] BE BASED ON THE PRIMARY CLINICAL RECORDS. [employer] provides no warranty or guarantee of the accuracy or completeness of information in this document.
== END 2025-05-05 08:57 | disposition home or self-care (01) ==
LOC: CT 08:56
PROVIDERS: PCP Nurse Practitioner; Visit Provider Student in an Organized Health Care Education/Training Program
DX: K43.2 Incisional hernia without obstruction or gangrene (principal); K57.90 Diverticulosis of intestine, part unspecified, without perforation or abscess without bleeding
CPT/HCPCS: 74177; Q9967

== ENCOUNTER 2025-07-03 09:03 | Outpatient (OUT) | payer OTHER, SELFPAY ==
--- OUTSIDE RECORDS SUMMARY | 2025-07-03 09:11 | XMS_ITS | Clinical Summary ---
Author Organization [facility] Address [address] [place] [address] Care Team Providers Care Websphere Developer Name Role Phone Lisseth Blank MD Primary Care Provider [phone] Allergies Active AllergyReactionsCriticalityNoted YxkpKsnooccnZshzl26/27/2023 environmental Medications MedicationSigDispense QuantityRefillsLast FilledStart DateEnd DateStatus Meclizine HCl 25 MG chewable tablet Chew 1 tablet 1 (one) time each day at the same time.Active PARoxetine (Paxil) 10 MG tablet Take 10 mg by mouth 1 (one) time each day at the same time.Active metroNIDAZOLE (Flagyl) 500 MG tablet Take 500 mg by mouth in the morning and 500 mg in the evening and 500 mg before bedtime.Active fluticasone (Flonase) 50 MCG/ACT nasal spray Administer 2 sprays into each nostril 1 (one) time each day at the same time. 03/03/2022ctive ofloxacin (Ocuflox) 0.3 % ophthalmic solution 4 drops every 8 (eight) hours. RT ear03/03/2022ctive omeprazole (PriLOSEC) [address] capsule Take 40 mg by mouth in the morning. Take before meals.Active famotidine (Pepcid) 20 MG tablet Take 20 mg by mouth at bedtime.03/03/2022ctive phentermine (Adipex-P) 37.5 MG tablet Take 37.5 mg by mouth in the morning. Take before meals.Active celecoxib (CeleBREX) 50 MG capsule Take 50 mg by mouth in the morning and 50 mg before bedtime.Active gabapentin (Neurontin) 100 MG capsule Take by mouthActive tiZANidine (Zanaflex) 2 MG capsule Take by mouth as needed at bedtime for muscle spasmsActive CRANBERRY PO Take by mouthActive omega-3 (FISH OIL) 300 MG capsule Take by mouth DailyActive Active Problems ProblemNoted DateDiagnosed DatePerforation of left tympanic tjttpisb61/02/2023 Chronic wnnzvluz74/27/2023ysfunction of both eustachian tubes04/05/2023 Kqchohbtap23/27/2023LPRD (laryngopharyngeal reflux disease)04/05/2023Otorrhea of right ear04/05/2023erforation of right tympanic zxuvjeyk88/27/2023Sensorineural hearing loss, gmvkwcaqj96/27/7218Nqgtlimzhj54/27/2023NASH (nonalcoholic steatohepatitis)04/05/2023OSA (obstructive sleep apnea)04/05/2023Sinus emeuibtjwgr44/27/2023 Immunizations ImmunizationAdministration DatesNext DueInfluenza, injectable, quadrivalent, preservative free05/31/2023,06/07/2022Influenza, seasonal, injectable, preservative free07/08/2024Novel sjmsozuik-S2G6-31, preservative-free08/18/2009 Pneumococcal Polysaccharide [id number] Family History Medical HistoryRelationNameCommentsHeart failureFatherDiabetesMaternal GrandfatherCancerSisterRelationNameStatusCommentsFatherAliveMaternal Grandfather MotherAliveSister Social History Tobacco UseTypesPacks/DayYears UsedDateSmoking Tobacco: NeverSmokeless Tobacco: Never Tobacco Cessation:Counseling Given: Not Answered Alcohol UseStandard Drinks/WeekCommentsNot Currently0 (1 standard drink = 0.6 oz pure alcohol)Sex and Gender InformationValueDate RecordedSex Assigned at Not on fileLegal AyuIsap7411/22/2022 6:44 PM EDTGender IdentityNot on fileSexual OrientationNot on file Last Filed Vital Signs Vital SignReadingTime TakenCommentsBlood Jdmimmwd366/8508 11:31 AM EDT Pulse--Temperature--Respiratory Rate--Oxygen Saturation--Inhaled Oxygen Concentration--Tvktro237 kg (375 lb)11/05/2024 10:17 AM YRSUnkpml380.3 cm (5' 9 )11/05/2024 10:17 AM ESTBody Mass Index55.38011/05/2024 10:17 AM EST Plan of Treatment Not on file Insurance Care Teams Team MemberRelationshipSpecialtyStart DateEnd Date Lisseth Blank MD [address] [place] [phone] PCP - GeneralFamily Medicine04/05/23
--- OUTSIDE RECORDS SUMMARY | 2025-07-03 09:11 | XMS_ITS | Clinical Summary ---
Author Organization [facility] Address [address] [place] [address] Care Team Providers Care Breakdown Worker Name Role Phone Unavailable Primary Care Provider Unavailabl e Social History Tobacco UseTypesPacks/DayYears UsedDateSmoking Tobacco: Never AssessedUT Safety & EnvironmentAnswerDate RecordedFear of Current or Ex-PartnerNot on file 11/01/2023Emotionally AbusedNot on file11/01/2023hysically AbusedNot on file 11/01/2023Sexually AbusedNot on file11/01/2023hysically or Sexually AbusedNot on file11/01/2023Sex and Gender InformationValueDate RecordedSex Assigned at BirthNot on fileLegal XhlExvz9103/08/2022 10:39 PM EDTGender IdentityNot on file Sexual OrientationNot on file Last Filed Vital Signs Vital SignReadingTime TakenCommentsBlood Uebjubdw326/9412 10:54 AM EST Pisbr02898/04/2019 10:54 AM PZZDoyhpjlbhgx34.7 ??C (98 ??F)07/08/2019 4:05 PM EDTRespiratory Rate--Oxygen Saturation--Inhaled Oxygen Concentration--Azdfdg082 kg (409 lb 15.9 oz)12/29/2021 11:33 AM TLTVruxul209.3 cm (5' 9 )12/29/2021 11:32 AM EDTBody Mass Index60.55012/29/2021 11:32 AM EDT Plan of Treatment Health MaintenanceDue DateLast DoneCommentsCT Clztuiusiwjh1977Colonoscopy 1977Colorectal Cancer Vsfqapmbn1977FIT-DNA1977FIT1977 FOBT1977Medicare Annual Wellness (AWV)1975 0067Xgdigvesjunpp1977 Depression Wortbtzkn42/12/1989Hepatitis B Vaccines (1 of 3 - 19+ 3-dose series) 1996Adult Gzilrmk6303/21/1999Influenza Vaccine (#1)2025Zoster Vaccines (1 of 2)2027Pneumococcal Vaccine: Pediatrics (0 to 5 Years) and At-Risk Patients (6 to 64 Years)Aged Out03/10/2019No longer eligible based on patient's age to complete this topicHIB VaccinesAged OutNo longer eligible based on patient's age to complete this topicHPV VaccinesAged OutNo longer eligible based on patient's age to complete this topicIPV VaccinesAged OutNo longer eligible based on patient's age to complete this topicMeningococcal B VaccineAged OutNo longer eligible based on patient's age to complete this topicMeningococcal VaccineAged OutNo longer eligible based on patient's age to complete this topic Rotavirus VaccinesAged OutNo longer eligible based on patient's age to complete this topic Insurance * Guarantor: Milton VaughnAccount TypeRelation to PatientDate of BirthPhoneBilling AddressPersonal/KkraacBvcr1975 ([place] [address]
--- OUTSIDE RECORDS SUMMARY | 2025-07-03 09:12 | XMS_ITS | CCD ---
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 Name Role Phone MAZIN CANO Admitting Unavailable MAZIN CANO Attending Unavailable SHEILA, DR LULU Tejeda Primary Care Unavailable SERINA, DR KELLIE Benavides Consulting Unavailable MAZIN CANO Consulting Unavailable SHEILA, DR LULU Tejeda Admitting Unavailable SHEILA, DR LULU Tejeda Attending Unavailable SHEILA, DR LULU Tejeda Primary Care Unavailable SHEILA, DR LULU Tejeda Consulting Unavailable SERINA, DR KELLIE Benavides Consulting Unavailable SHEILA, DR LULU Tejeda Admitting Unavailable SHEILA, DR LULU Tejeda Attending Unavailable SHEILA, DR LULU Tejeda Primary Care Unavailable BLANK, DR LULU Tejeda Consulting Unavailable SHEILA, DR LULU Tejeda Primary Care Unavailable FOZIA UGALDE Consulting Unavailable FOZIA UGALDE Admitting Unavailable FOZIA UGALDE Attending Unavailable Effie Sarmiento Primary Care Physician EFFIE SARMIENTO Referring Unavailable EFFIE SARMIENTO Referring Unavailable Lulu Blank MD Primary Care Provider PEDRO CONTE Attending Unavailable PEDRO CONTE Attending Unavailable PEDRO CONTE Attending Unavailable Torsten AMEENA-Effie CHAUHAN Primary Care Provider RAAD POTTER Referring Unavailable EFFIE SARMIENTO Primary Care Unavailable Torstenab LINDQUIST-Effie CHAUHAN Primary Care Provider Sita CORRIGAN, Andrius Guardado Attending Unavailable Sita CORRIGAN, Andrius Guardado Attending Unavailable Sita CORRIGAN, Andrius Guardado Attending Unavailable Sita CORRIGAN, Andrius Guardado Attending Unavailable Sita CORRIGAN, Andrius Guardado Attending Unavailable Sita CORRIGAN, Wilbert Guadrado Attending Unavailable Sita CORRIGAN, Wilbert Guardado Attending Unavailable IRIS NORIEGA Attending Unavailable TORSTEN, EFFIE L Referring Unavailable TORSTEN, EFFIE L Primary Care Unavailable NORIEGAIRIS Attending Unavailable TORSTEN, EFFIE L Referring Unavailable TORSTEN, EFFIE L Primary Care Unavailable NORIEGAIRIS Attending Unavailable TORSTEN, EFFIE L Referring Unavailable TORSTEN, EFFIE L Primary Care Unavailable Jose Carlos Whitt DO Attending Provider Torsten SHIRT CLOSER-CEffie Primary Care Provider NURY POTTER Attending Unavailable TORSTEN, EFFIE L Primary Care Unavailable POTTERNURY Attending Unavailable TORSTEN, EFFIE L Referring Unavailable TORSTEN, EFFIE L Primary Care Unavailable POTTERNURY N Attending Unavailable TORSTEN, EFFIE L Referring Unavailable TORSTEN, EFFIE L Primary Care Unavailable Torsten, Effie L Admitting Unavailable Torsten, Effie L Attending Unavailable Torsten, Effie L Attending Unavailable Torsten, Effie L Attending Unavailable Torsten, Effie L Admitting Unavailable Torsten, Effie L Attending Unavailable Torsten, Effie L Attending Unavailable Allergies Allergy ClassificationReported Allergen(s)Allergy TypeDate of OnsetReaction(s) Facility (7 sources)OtherPropensity to adverse cjkkypgub66-21-1324[facility] Work Phone: Medications Current Medications MedicationDrug Class(es)DatesSig (Normalized)Sig (Original)ASHWAGANDHA EXTRACT ORAL (3 sources)ASHWAGANDHA EXTRACT ORAL Take by mouth. Phmgeh84 hr buPROPion hydrochloride 150 mg extended release oral tablet (6 sources)Aminoketonetake 1 tablet by mouth every twelve hours in the morning, then take 1 tablet by mouth at bedtimebuPROPion SR (WELLBUTRIN SR) 150 mg 12 hr tablet Take 1 tablet (150 mg total) by mouth in the morning and 1 tablet (150 mg total) before bedtime. Activecelecoxib 200 mg oral capsule (12 sources)Nonsteroidal Anti-inflammatory DrugStart: 15-44-5583dcvu 1 capsule by mouth in the morningcelecoxib (CeleBREX) 200 mg capsule Take 1 capsule (200 mg total) by mouth in the morning. 12/27/2024 Activetake 1 capsule by mouth in the morningcelecoxib (CeleBREX) 50 MG capsule Take 50 mg by mouth in the morning and 50 mg before bedtime. ActiveCranberry preparation (14 sources)Non-Standardized Food Allergenic Extract, Non-Standardized Plant Allergenic ExtractStart: 08-42-7293yukp 1 tablet by mouth once dailycranberry oral capsule See Instructions, Refill(s) 0, 1 tablet daily Start Date: 03/19/23 Status: Orderedcranberry extract (CRANBERRY JUICE POWDER) 425 mg capsule Take by mouth. ActiveCRANBERRY PO Take by mouth Activecyanocobalamin, vitamin B-12, (VITAMIN B-12 ORAL) (6 sources)cyanocobalamin, vitamin B-12, (VITAMIN B-12 ORAL) Vitamin B-12 Active famotidine 20 mg oral tablet (7 sources)Histamine-2 Receptor AntagonistStart: 79-59-9029nuym 1 tablet by mouth at bedtimefamotidine (Pepcid) 20 MG tablet Take 20 mg by mouth at bedtime. 03/03/2022 ActiveFish Oils (8 sources)Start: 23-73-7429rhtg 1 capsule by mouth once dailyFish Oil 500 mg oral capsule 500 mg = 1 cap(s), Oral, Daily, Refills(s) 0 Start Date: 03/19/23 Status: Orderedomega-3 (FISH OIL) 300 MG capsule Take by mouth Daily Active fluticasone propionate 0.05 mg/actuat metered dose nasal spray (7 sources)CorticosteroidStart: 81-11-5300qseg 2 spray(s) nasal route once daily fluticasone (Flonase) 50 MCG/ACT nasal spray Administer 2 sprays into each nostril 1 (one) time each day at the same time. 03/03/2022 Activegabapentin 100 mg oral capsule (6 sources)Anti-epileptic Agentgabapentin (Neurontin) 100 MG capsule Take by mouth Activeipratropium bromide 0.021 mg/actuat metered dose nasal spray (6 sources)Anticholinergicipratropium (ATROVENT) 21 mcg (0.03 %) nasal spray Administer 1 spray into each nostril as needed. Activeloratadine 10 mg oral capsule (8 sources)Start: 51-65-1386exyd 1 capsule by mouth once daily as needed loratadine 10 mg oral capsule 10 mg = 1 cap(s), Oral, Daily, PRN Allergy symptoms, # 10 cap(s), Refills(s) 0 Start Date: 03/19/23 Status: Ordered loratadine (CLARITIN) 10 mg tablet Take 1 tablet (10 mg total) by mouth as needed. Activemeclizine hydrochloride 25 mg chewable tablet (13 sources)Antiemeticmeclizine (ANTIVERT) 25 mg tablet Chew 1 tablet (25 mg total) and swallow 3 (three) times a day as needed. ActiveMeclizine HCl 25 MG chewable tablet Chew 1 tablet 1 (one) time each day at the same time. Active osmotic 24 hr metFORMIN hydrochloride 500 mg extended release oral tablet (8 sources)BiguanideStart: 04-24-2025 End: 69-58-2423mmcq 3 tablets by mouth once daily at breakfastmetFORMIN (FORTAMET) 500 MG (OSM) 24 hr tablet TAKE 3 TABLETS (1,500 MG TOTAL) BY MOUTH DAILY WITH BREAKFAST 270 tablet 2 06/17/2025 ActiveStart: 01-23-2025 End: 84-41-1289hvbj 1 tablet by mouth once daily at breakfastmetFORMIN (FORTAMET) 1000 MG (OSM) 24 hr tablet Take 1 tablet (1,000 mg total) by mouth daily with breakfast. 90 tablet 3 01/23/2025 04/24/2025 Discontinued (Reorder) methylPREDNISolone 4 mg oral tablet (1 source)CorticosteroidStart: 03-19-2023 End: 46-37-0300Iicbbq 4 mg Tab = 1 packet(s), Oral, As Directed, as directed on package labeling, X 6 day(s), # 21tab(s), Refills(s) 0, Pharmacy: [facility]/pharmacy #[id number], 176.5, cm, 03/19/23 13:15:00 EDT, Height/LengthDosing Start Date: 03/19/23 Stop Date: 03/25/23 Status: OrderedmetroNIDAZOLE 500 mg oral tablet (7 sources)Nitroimidazole Antimicrobialtake 1 tablet by mouth in the morning, then take 1 tablet by mouth in the evening, then take 1 tablet by mouth at bedtimemetroNIDAZOLE (Flagyl) 500 MG tablet Take 500 mg by mouth in the morning and 500 mg in the evening and 500 mg before bedtime. Activeofloxacin 3 mg/ml ophthalmic solution (7 sources)Quinolone AntimicrobialStart: 60-52-7465gheh 4 drop(s) into the eye(s) every eight hoursofloxacin (Ocuflox) 0.3 % ophthalmic solution 4 drops every 8 (eight) hours. RT ear 03/03/2022 Activeomega-3 fatty acids-fish oil 300- 1,000 mg capsule (6 sources)take 3-300 capsules by mouth in the morningomega-3 fatty acids-fish oil 300-1,000 mg capsule Take by mouth in the morning. Activeomeprazole 40 mg delayed release oral capsule (13 sources)Proton Pump Inhibitoromeprazole (PriLOSEC) 40 mg capsule Take 1 capsule (40 mg total) by mouth as needed. ActivePARoxetine hydrochloride 10 mg oral tablet (15 sources)Serotonin Reuptake InhibitorStart: 86-98-4390yqdt 1 tablet by mouth once dailyparoxetine 10 mg Tab 10 mg = 1 tab(s), Oral, Daily, # 90 tab(s), Refills(s) 3, [id number] 176.5, cm, 07/26/23 9:32:00 EST, Height/Length Dosing, 187.2, kg, 07/26/23 9:32:00 EST, Weight Dosing Start Date: 07/26/23 Status: Orderedphentermine hydrochloride 37.5 mg oral tablet (9 sources)Sympathomimetic Amine AnorecticStart: 41-45-1213hlly 1 tablet by mouth once dailyphentermine 37.5 mg Tab 37.5 mg = 1 tab(s), Oral, Daily, # 30 tab(s), Refills(s) 0, Pharmacy: [facility] #[id number], 176.5, cm, 07/26/23 9:32:00 EST, Height/Length Dosing, 187.2, kg, 07/26/23 9:32:00 EST, Weight Dosing Start Date: 07/26/23 Status: OrderedStart: 03-19-2023 End: 02-58-5337cxvt 1 tablet by mouth once dailyphentermine 37.5 mg Tab 37.5 mg = 1 tab(s), Oral, Daily, X 30 day(s), # 30 tab(s), Refills(s) 0, Pharmacy: [facility]/pharmacy #[id number], 176.5, cm, 03/19/23 13:15:00 EDT, Height/Length Dosing Start Date: 03/19/23 Stop Date: 04/18/23 Status: Wugjwnn51 actuat testosterone 20.25 mg/actuat topical gel (8 sources)AndrogenStart: 42-99-8858hyqfwoiklnst (ANDROGEL) 20.25 mg/1.25 gram (1.62 %) gel in metered-dose pump Indications: Low 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 Place 3 Act (60.75 mg total) on the skin in the morning. 75 g 2 06/17/2025 ActiveStart: 04-24-2025 End: 54-39-4465siazyppfrdxw (ANDROGEL) 20.25 mg/1.25 gram (1.62 %) gel in metered-dose pump Indications: Low 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 Place 3 Act (60.75 mg total) on the skin in the morning. 75 g 2 04/24/2025 06/05/2025 Discontinued (Reorder)Start: 01-23-2025 End: 20-94-1266gnsixpykrily (ANDROGEL) 20.25 mg/1.25 gram (1.62 %) gel in metered-dose pump Indications: Low 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 Place 2 Act (40.5 mg total) on the skin in the morning. 75 g 03/16/2025 04/24/2025 Discontinued (Reorder)tiZANidine 4 mg oral tablet (12 sources)Central alpha-2 Adrenergic AgonistStart: 44-08-6419owpd 1 tablet by mouth once dailytiZANidine (ZANAFLEX) 4 mg tablet Take 1 tablet (4 mg total) by mouth nightly. 12/27/2024 ActivetiZANidine (Zanaflex) 2 MG capsule Take by mouth as needed at bedtime for muscle spasms ActiveTurmeric extract (3 sources)TURMERIC ORAL Take by mouth. Active Problems Active Problems Problem ClassificationProblemDateDocumented DateEpisodic/ChronicAbdominal hernia (3 sources)Incisional hernia; Translations: [Incisional hernia without obstruction or gangrene]Onset: 859289-73-9065AmqjovqlQuouigsl foot deformities (4 sources)Acquired varus deformity of right ankle; Translations: [Valgus deformity, not elsewhere classified,right ankle]92-62-1672HalowabyStxtgurz foot deformities (4 sources)Acquired valgus deformity of left ankle; Translations: [Valgus deformity, not elsewhere classified,left ankle]53-27-0753Rvqcpxfm Administrative/social admission (6 sources)Patient encounter status; Translations: [Dietary counseling and surveillance]Onset: 115171-16-1239LoftcojyXodbppxrj of lipid metabolism (1 source)Mixed hyperlipidemia; Translations: [MIXED HYPERLIPIDEMIA]Onset: 07-91-4591WoigqqvVimgzhglci disorders (7 sources)Laryngopharyngeal reflux; Translations: [Gastro-esophageal reflux disease without esophagitis]Onset: 630249-95-9786CztgzlvSabqkbvpq (7 sources)Nonalcoholic steatohepatitis; Translations: [Nonalcoholic steatohepatitis (RODRIGUEZ)]Onset: 800004-42-0662UpagzxuQfagoohnuxd deficiencies (1 source)Vitamin D deficiency, unspecified; Translations: [VITAMIN D DEFICIENCY UNSPECIFIED]Onset: 19-93-5828StydwvfJceil acquired deformities (4 sources)Leg length inequality; Translations: [Unequal limb length (acquired), unspecified site]21-74-4885HilejuwnWzilt connective tissue disease (2 sources)Bilateral dysfunction of posterior tibial tendon of feet; Translations: [Posterior tibial tendinitis, right leg]70-64-2380UmifkzzwWyyhx diseases of veins and lymphatics (7 sources)Lymphedema; Translations: [Lymphedema, not elsewhere classified] Onset: 846525-32-9891JvbndkaGiooe ear and sense organ disorders (7 sources)Sensorineural hearing loss, bilateral; Translations: [Sensorineural hearing loss, bilateral]Onset: 709473-07-9572VdscjoqKgdkc endocrine disorders (1 source)Male iviqtcckycsh03-23-5311BhpxkxgJnyjv nervous system disorders (1 source)Difficulty in walking, not elsewhere classified; Translations: [Difficulty in walking, not elsewhere classified]Onset: 83-74-9772ZtgvlxpGicrg non-traumatic joint disorders (4 sources)Instability of joint of left foot; Translations: [Other instability, left foot]63-09-0619SttbsautVrvjc non-traumatic joint disorders (4 sources)Instability of joint of right foot; Translations: [Other instability, right foot]39-77-6537QrndlwlfBhber nutritional; endocrine; and metabolic disorders (3 sources)Morbid (severe) obesity due to excess calories; Translations: [MORBID SEVERE OBES D/T EXCESS GAYATRI]Onset: 93-50-3262GwpglwwHfdey nutritional; endocrine; and metabolic disorders (2 sources)Body mass index (BMI) 50.0-59.9, adult; Translations: [BODY MASS INDEX BMI 50.0-59.9 ADULT]Onset: 29-12-5315WfxxiabFpcdr nutritional; endocrine; and metabolic disorders (6 sources)Morbid obesity; Translations: [Morbid (severe) obesity due to excess calories]09-55-8465ZgkdtxxHhbky nutritional; endocrine; and metabolic disorders (2 sources)Body mass index 40+ - severely obese; Translations: [Morbid (severe) obesity due to excess calories]31-73-1151NcqzwzsEmeyw nutritional; endocrine; and metabolic disorders (2 sources)Insulin resistance; Translations: [Insulin resistance]01-23-2025 ChronicOther screening for suspected conditions (not mental disorders or infectious disease) (5 sources)Decreased testosterone level ; Translations: [Other specified abnormal findings of blood chemistry]Onset: 158946-32-0654VzlidnxoBjawb upper respiratory disease (7 sources)Chronic rhinitis; Translations: [Chronic rhinitis]Onset: 04-05-2023 92-04-7588NyrpquyUpacl upper respiratory infections (5 sources)Acute pharyngitis, unspecified; Translations: [Acute upper respiratory infection, unspecified]Onset: 40-84-3530JqbnrrpkVlwzgwvt codes; unclassified (1 source)Obstructive sleep apnea (adult) (pediatric); Translations: [OBSTRUCTIVE SLEEP APNEA]Onset: 60-39-9569WsfqdrhMsaeblgw codes; unclassified (7 sources)Obstructive sleep apnea syndrome; Translations: [Obstructive sleep apnea (adult) (pediatric)]Onset: 747203-89-9088OozhkynMrgtomlx codes; unclassified (3 sources)History of sleeve gastrectomy; Translations: [Acquired absence of stomach [part of]]26-57-5301YdotqozwQfeujpftx and history of mental health and substance abuse codes (1 source)Personal history of nicotine dependence; Translations: [PERSONAL HISTORY OF NICOTINE DEPEND]Onset: 33-61-9528XiekmrrqYyfqimazxgr; intervertebral disc disorders; other back problems (3 sources)Sciatica; Translations: [Lumbago with sciatica, left side]Onset: 464152-44-0308GrglirerOllkhlfhwvow (1 source)CONTACT W/AND (SUSP) EXPOS COVID-19; Translations: [CONTACT W/AND (SUSP) EXPOS COVID-19]Onset: 92-31-3796Yybcgikntykz (1 source)COUGH, UNSPECIFIED; Translations: [COUGH, UNSPECIFIED]Onset: 57-20-6152Duqglexvxwwx (3 sources)Patient encounter -88-1710Nparuxmieyga (1 source)Nutrition CounselingOnset: 87-30-2905Rsnsrdccmxrl (1 source)Insulin resistance, unspecified; Translations: [Insulin resistance, unspecified]Onset: 16-36-9611Jibrhxjplwtv (1 source)ESTABLISHED PATIENTOnset: 76-43-2739Ugytltzykymb (1 source)New PatientOnset: 11-28-2024 Past or Other Problems Problem ClassificationProblemDateDocumented DateEpisodic/ChronicCardiac dysrhythmias (7 sources)Sinus tachycardia; Translations: [Tachycardia, unspecified]Onset: 673059-35-1766XerqbesgPbijeelhxg associated with dizziness or vertigo (4 sources)Dizziness and giddiness; Translations: [DIZZINESS AND GIDDINESS] Onset: 01-18-0865VgefaigdArtvkqpu of upper limb (1 source)Other fracture of fifth metacarpal bone, left hand, initial encounter for closed fracture; Translations: [OTH FX 5TH MC BN LH INIT CLOS FX]Onset: 87-60-9694DueqghmqTuzicdi and fatigue (1 source)Vapfrwn50-22-4056SubkkxshYoftl ear and sense organ disorders (7 sources)Otorrhea of right ear; Translations: [Otorrhea, right ear]Onset: 610277-66-2272IgpgsnwyFzqki nervous system disorders (1 source)Paresthesia of rnby15-99-5615CumqnmhmMfgsl upper respiratory disease (1 source)Nasal congestion; Translations: [NASAL CONGESTION]Onset: 02-03-2022 EpisodicOther upper respiratory disease (7 sources)Hoarse; Translations: [Dysphonia]Onset: 156364-59-3050Pffcsrhi Otitis media and related conditions (20 sources)Dysfunction of bilateral eustachian tubes; Translations: [Unspecified Eustachian tube disorder, bilateral]Onset: EpisodicResidual codes; unclassified (3 sources)Acquired absence of stomach [part of]; Translations: [Acquired absence of stomach (part of)]Onset: 81-33-9101NioqsbilDllvqritigo injury; contusion (6 sources)Contusion of left little finger without damage to nail, initial encounter; Translations: [Contusionof left ring finger without damage to nail, initial encounter]Onset: 65-38-6366LjttmtzaCmoycbcqpcyi (1 source)History of sleeve wjdhcqgxcet15-80-3000 Results Test NameValueInterpretationReference RangeFacilityAmbulatory Visit Summaryon 40-30-7962Nycxildmde Visit SummaryAmbulatory Visit Summary RAKESH VAUGHN :1975 Visit Date:06/30/2025 Ambulatory Visit Instructions Your Diagnosis Low back pain Chest pain Body mass index [BMI] 45.0-49.9, adult, Body mass index [BMI] 45.0-49.9, adult Class 3 severe obesity due to excess calories with body mass index (BMI) of 45.0 to 49.9 in adult Morbid (severe) obesity due to excess calories Your Care Team Attending Physician - Effie Muhammad Primary Care Physician - Effie Muhammad [facility] Is [facility] ([facility] machine supplies) cranberry (cranberry oral capsule) gabapentin (gabapentin 300 mg Cap) loratadine (loratadine 10 mg oral capsule) metformin (metformin 500 mg ER Tab) omega-3 polyunsaturated fatty acids (Fish Oil 500 mg oral capsule) paroxetine (paroxetine 10 mg Tab) predniSONE (predniSONE 10 mg Tab) testosterone (testosterone 20.25 mg/1.25 g (1.62%) transdermal gel) tizanidine (tiZANidine 4 mg Tab) Procedures Performed Gastric sleeve. Discharge Vitals Temperature (Temporal Artery) 36.4 ???C Heart Rate (Peripheral) 72 Respiratory Rate 16 Blood Pressure 132/86 Height 187.5 cm Height 74 in Weight 171.3 kg Weight 377.651 lb BMI 48.73 What to do next Scheduled Follow-Up Appointments Sunday 1:00 PM EST With: Effie Muhammad Where: [address] [address]- You Need to Schedule the Following Appointments Follow Up with Effie Muhammad, JOSAFAT, MED When: In 4 weeks 06/30/2025 EDT Where: [address] [place] [phone] Business (1) Medications What How Much When Why Instructions Unchanged cranberry (cranberry oral capsule) See instructions 1 tablet daily Unchanged gabapentin (gabapentin 300 mg Cap) TAKE 1 CAPSULE BY MOUTH THREE TIMES A DAY Unchanged loratadine (loratadine 10 mg oral capsule) 1 Capsules By Mouth Every day as needed for Allergy symptoms Unchanged metformin (metformin 500 mg ER Tab) TAKE 2 TABLETS BY MOUTH EVERY DAY WITH BREAKFAST Unchanged Misc Prescription (CPAP machine supplies) See instructions mask, headgear P10, tubing, filters to use with CPAP machine Unchanged omega-3 polyunsaturated fatty acids (Fish Oil 500 mg oral capsule) 1 Capsules By Mouth Every day Unchanged paroxetine (paroxetine 10 mg Tab) 1 Tablets By Mouth Every day Unchanged predniSONE (predniSONE 10 mg Tab) 1 Dose Separtor By Mouth As Directed BMI 60.0-69.9, adult Non-smoker Take 3 tabs by mouth daily x3 days, then 2 tabs daily x3 days, then 1 tab daily x3 days. Unchanged testosterone (testosterone 20.25 mg/ 1.25 g (1.62%) transdermal gel) PLACE 3 ACT ON THE SKIN IN THE MORNING Unchanged tizanidine (tiZANidine 4 mg Tab) TAKE 1 TABLET BY MOUTH EVERYDAY AT BEDTIME NEEDED FORMUSCLE SPASTICITY Allergies No Known Allergies Problems Ongoing - Any problem that you are currently receiving treatment for. Chest pain Encounter for weight management Fatigue Hypogonadism male Left sciatic nerve pain Low back pain Low back pain with left-sided sciatica Mild recurrent major depression Morbid obesity due to excess calories Morbid obesity with BMI of 45.0-49.9, adult Numbness and tingling of foot Wellness examination Patient Survey You may receive a survey via text or e-mail asking about your office visit. Please share your experience with us by completing your survey. We appreciate your feedback and thank you for choosing us for your care. Patient Portal You may access all of your results and other medical record information on our secure patient portal. If you are not signed up for this yet, please contact Press at [phone] to get signed up today. Language Information Language assistance services are available as needed. [facility] Medicine Office/Clinic Noteon 07-62-6056[facility] HPI Staff Pt is here for fell over thee weekend- back pain Sunday he feel, he tripped over something in the yard and face planted He has been taking Gabapentin, and Tizanidine with no relief He has a hard time getting out of bed, he has to roll out of bed History of Present Illness pt had a fall in his yard on Sunday Review of Systems PHQ Score Initial Depression Screen Score: 0 SCORE General: alert, no acute distress ENMT: oral mucosa moist, no pharyngeal erythema or exudate Cardiovascular: regular rate and rhythm, normal peripheral perfusion Respiratory: Lungs CTA, respirations non labored Extremities: no deformity, no trauma Neurological: oriented x 4, LOC appropriate for age, CN II-XII intact, motor strength equal & normal bilaterally, speech normal Physical Exam Vitals & Measurements T: 36.4 ???C(Temporal Artery) HR: 72(Peripheral) RR: 16 BP: 132/86 SpO2: 100% HT: 187.5 cm HT: 74 in WT: 171.3 kg WT: 377.651 lb BMI: 48.73 Assessment/Plan 1. Low back pain (M54.50: Low back pain, unspecified) pt fell in his yard Sunday. tripped over his feet and face planted. he feels like his chest is bruised. he has spasms in his lower back when laying down to sleep. took tizanidine for the spasms butit makes him tired so he did not go to work today. declines x rays. toradol and kenalog 60mg given in office today. will return to work on . note provided. RTC 4 weeks if no improvement of pain 2. Chest pain (R07.9: Chest pain, unspecified) denies pain on inhalation. 3. Body mass index [BMI] 45.0-49.9, adult, (Z68.42: Body mass index [BMI] 45.0- 49.9, adult)Body mass index [BMI] 45.0-49.9, adult BMI education given 4. Class 3 severe obesity due to excess calories with body mass index (BMI) of 45.0 to 49.9 in adult (E66.813: Obesity, class 3) see above Morbid (severe) obesity due to excess calories (E66.01: Morbid (severe) obesity due to excess calories) Orders: paroxetine, 10 mg = 1 tab(s), Oral, Daily, # 90 tab(s), Refills(s) 4, Pharmacy: [facility]/pharmacy #[id number],187.5, cm, 01/16/24 13:46:00 EDT, Height/Length Dosing, 183, kg, 01/16/24 13:46:00 EDT, Weight Dosing Follow-up With When Contact Information Effie Muhammad, JOSAFAT, MED In 4 weeks 06/30/[address] [place] [address] Business (1) Additional Instructions: Problem List/Past Medical History Ongoing Chest pain Encounter for weight management Fatigue Hypogonadism male Left sciatic nerve pain Low back pain Low back pain with left-sided sciatica Mild recurrent major depression Morbid obesity due to excess calories Morbid obesity with BMI of 45.0-49.9, adult Numbness and tingling of foot Wellness examination Historical No qualifying data Procedure/Surgical History Gastric sleeve. Medications CPAP machine supplies, See Instructions, 1 refills cranberry oral capsule, See Instructions Fish Oil 500 mg oral capsule, 500 mg= 1 cap(s), Oral, Daily gabapentin 300 mg Cap loratadine 10 mg oral capsule, 10 mg= 1 cap(s), Oral, Daily, PRN metformin 500 mg ER Tab paroxetine 10 mg Tab, 10 mg= 1 tab(s), Oral, Daily, 3 refills predniSONE 10 mg Tab, 1 -, Oral, As Directed testosterone 20.25 mg/1.25 g (1.62%) transdermal gel tiZANidine 4 mg Tab Allergies No Known Allergies Social History Tobacco Former smoker, quit more than 30 days ago Tobacco Use:. Never Smokeless Tobacco Use:. Household tobacco concerns: No., 06/30/2025 Family History Hypertension: Father. Immunizations Vaccine Date Status influenza virus vaccine, inactivated 05/31/2023 Recorded influenza virus vaccine, inactivated 06/07/2022 Recorded SARS-CoV-2 (COVID-19) mRNA BNT-162b2 vax 11/12/2020 Recorded SARS-CoV-2 (COVID-19) mRNA BNT-162b2 vax 10/22/2020 Recorded pneumococcal 23-valent vaccine 03/10/2019 RecordedNoSalem Regional Medical CenterComment on above:Result Comment: Electronically Signed By: Torsten MONSIVAIS, Effie Sewell\.br\Date and Time Signed: 06/30/25 10:54 EDTProvider Letteron 06-30-2025 Provider LetterProvider Letter June 30, 2025 [place] [phone] : 1975 To Whom It May Concern, Please excuse above patient from work, due to medical Date of Illness: From: _06-30-25 To: _07-01-25 May Return to Work On:07-02-25 Restrictions: _ Comments: _ Sincerely, [place] [address] TtosccIbtmatSalem Regional Medical CenterProvider LetterProvider Letter June 30, [address] [address] : 1975 To Whom It May Concern, Please excuse above patient from work, due to medical Date of Illness: From: _06-30-25 To: _07-01-25 May Return to Work On:07-02-25 Restrictions: _ Comments: _ Sincerely,NormalClover Day Medical CenterReminderson [id number] Reminders From: Effie Muhammad To: B - Clinical; Sent: 06/19/2025 08:11:19 EDT Show up: 06/19/2025 08:09:00 EDT Subject: Ambulatory Reminder Due Date/Time: 06/20/2025 08:08:00 EDT Fill out his form and let him know when it is done. 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 the form on SundayNoSalem Regional Medical CenterAmbulatory Visit Summaryon [id number] Visit SummaryAmbulatory Visit Summary RAKESH VAUGHN :1975 Visit Date:06/18/2025 Ambulatory Visit Instructions Your Diagnosis Wellness examination Obesity, Class III, BMI 40-49.9 (morbid obesity), Class 3 severe obesity due to excess calories with body mass index (BMI) of 45.0 to 49.9 in adult Body mass index [BMI] 45.0-49.9, adult Morbid (severe) obesity due to excess calories Screening for hyperlipidemia Your Care Team Attending Physician - Effie Muhammad Primary Care Physician - Effie Muhammad This Is Your Medications List Misc Prescription (CPAP machine supplies) cranberry (cranberry oral capsule) loratadine (loratadine 10 mg oral capsule) metformin (metformin 500 mg ER Tab) omega-3 polyunsaturated fatty acids (Fish Oil 500 mg oral capsule) paroxetine (paroxetine 10 mg Tab) paroxetine (paroxetine 10 mg Tab) predniSONE (predniSONE 10 mg Tab) testosterone (testosterone 20.25 mg/1.25 g (1.62%) transdermal gel) [Image Removed: STOP]Stop taking these medications tramadol (traMADOL 50 mg Tab) Procedures Performed Gastric sleeve. Discharge Vitals Temperature (Temporal Artery) 36.2 ???C Heart Rate (Peripheral) 74 Respiratory Rate 20 Blood Pressure 128/86 Height 187.5 cm Height 74 in Weight 171.4 kg Weight 377.872 lb BMI 48.75 Medications What How Much When Why Instructions Changed paroxetine (paroxetine 10 mg Tab) See instructions TAKE 1 TABLET BY MOUTH EVERY DAY Changed paroxetine (paroxetine 10 mg Tab) 1 Tablets By Mouth Every day Unchanged cranberry (cranberry oral capsule) See instructions 1 tablet daily Unchanged loratadine (loratadine 10 mg oral capsule) 1 Capsules By Mouth Every day as needed for Allergy symptoms Unchanged metformin (metformin 500 mg ER Tab) TAKE 2 TABLETS BY MOUTH EVERY DAY WITH BREAKFAST Unchanged Misc Prescription (CPAP machine supplies) See instructions mask, headgear P10, tubing, filters to use with CPAP machine Unchanged omega-3 polyunsaturated fatty acids (Fish Oil 500 mg oral capsule) 1 Capsules By Mouth Every day Unchanged predniSONE (predniSONE 10 mg Tab) 1 Dose Separtor By Mouth As Directed BMI 60.0-69.9, adult Non-smoker Take 3 tabs by mouth daily x3 days, then 2 tabs daily x3 days, then 1 tab daily x3 days. Unchanged testosterone (testosterone 20.25 mg/ 1.25 g (1.62%) transdermal gel) PLACE 3 ACT ON THE SKIN IN THE MORNING What How Much When Why Comments Stop Taking tramadol (traMADOL 50 mg Tab) 1 Tablets By Mouth Every 6 hours as needed for Pain Non-smoker BMI 60.0-69.9, adult Allergies No Known Allergies Problems Ongoing - Any problem that you are currently receiving treatment for. Encounter for weight management Fatigue Hypogonadism male Left sciatic nerve pain Low back pain Low back pain with left-sided sciatica Morbid obesity due to excess calories Morbid obesity with BMI of 45.0-49.9, adult Numbness and tingling of foot Wellness examination Patient Survey You may receive a survey via text or e-mail asking about your office visit. Please share your experience with us by completing your survey. We appreciate your feedback and thank you for choosing us for your care. Patient Portal You may access all of your results and other medical record information on our secure patient portal. If you are not signed up for this yet, please contact Health Information Management at [phone] to get signed up today. Language Information Language assistance services are available as needed. [facility] Medicine Office/Clinic Noteon [id number] Note HPI Staff Pt is here for wellness Health Maintenance: Last Labs: March 19 2023 he had labs done [facility] April or May History of Present Illness pt presents today for wellness visit Review of Systems PHQ Score Initial Depression Screen Score: 0 SCORE Physical Exam Vitals & Measurements T: 36.2 ???C(Temporal Artery) HR: 74(Peripheral) RR: 20 BP: 128/86 SpO2: 99% HT: 74 in HT: 187.5 cm WT: 377.872 lb WT: 171.4 kg BMI: 48.75 General: alert, no acute distress ENMT: oral mucosa moist, no pharyngeal erythema or exudate Cardiovascular: regular rate and rhythm, normal peripheral perfusion Respiratory: Lungs CTA, respirations non labored Extremities: no deformity, no trauma Neurological: oriented x 4, LOC appropriate for age, CN II-XII intact, motor strength equal & normal bilaterally, speech normal Assessment/Plan 1. Wellness examination (Z00.00: Encounter for general adult medical examination without abnormal findings) pt presents today for wellness visit. had labs done at [facility] in April or May. BMP was found but we did not find a lipid. so we will draw that today. pt is doing well. down 25 pounds since last visit. RTC 1 year Ordered: Est Preventative 40 to 64 years [address] Lab Specimen Collect 80561 Lipid Panel 2. Mild recurrent major depression (F33.0: Major depressive disorder, recurrent, mild) needs refill on paroxetine Ordered: Est Preventative 40 to 64 years [address] 3. Screening for hyperlipidemia (Z13.220: Encounter for screening for lipoid disorders) lipid panel drawn in office today. will fill out Ordered: Est Preventative 40 to 64 years [address] Lab Specimen Collect 05947 4. Body mass index [BMI] 45.0-49.9, adult (Z68.42: Body mass index [BMI] 45.0- 49.9, adult) BMI education. pt is doing well. continues making healthy food choices. is being followed by Nury Potter, bariatric surgeon. has lost about 60 pounds all together. 25 in the last 17 months. Ordered: Est Preventative 40 to 64 years [address]65 5. Class 3 severe obesity due to excess calories with body mass index (BMI) of 45.0 to 49.9 in adult (E66.813: Obesity, class 3) see above Ordered: Est Preventative 40 to 64 years [address] Orders: gabapentin, 300 mg = 1 cap(s), Oral, TID, # 90 cap(s), Refills(s) 0, [id number], 187.5, cm, 01/16/24 13:46:00 EDT, Height/Length Dosing, 183, kg, 01/16/24 13:46:00 EDT, Weight Dosing gabapentin, 300 mg = 1 cap(s), Oral, TID, # 90 cap(s), Refills(s) 2, [id number], 187.5, cm, 01/16/24 13:46:00 EDT, Height/Length Dosing, 183, kg, 01/16/24 13:46:00 EDT, Weight Dosing paroxetine, See Instructions, TAKE 1 TABLET BY MOUTH EVERY DAY, # 90 tab(s), Refills(s) 3, Pharmacy: [facility], 187.5, cm, 06/18/25 11:22:00 EDT, Height/Length Dosing, 171.4, kg, 06/18/25 11:22:00 EDT, Weight Dosing paroxetine, 10 mg = 1 tab(s), Oral, Daily, # 90 tab(s), Refills(s) 3, [id number],187.5, cm, 06/18/25 11:22:00 EDT, Height/Length Dosing, 171.4, kg, 06/18/25 11:22:00 EDT, Weight Dosing Follow-up No qualifying data available Problem List/Past Medical History Ongoing Encounter for weight management Fatigue Hypogonadism male Left sciatic nerve pain Low back pain Low back pain with left-sided sciatica Mild recurrent major depression Morbid obesity due to excess calories Morbid obesity with BMI of 45.0-49.9, adult Numbness and tingling of foot Wellness examination Historical No qualifying data Procedure/Surgical History Gastric sleeve. Medications CPAP machine supplies, See Instructions, 1 refills cranberry oral capsule, See Instructions Fish Oil 500 mg oral capsule, 500 mg= 1 cap(s), Oral, Daily loratadine 10 mg oral capsule, 10 mg= 1 cap(s), Oral, Daily, PRN metformin 500 mg ER Tab paroxetine 10 mg Tab, 10 mg= 1 tab(s), Oral, Daily, 4 refills paroxetine 10 mg Tab, 10 mg= 1 tab(s), Oral, Daily, 3 refills predniSONE 10 mg Tab, 1 -, Oral, As Directed testosterone 20.25 mg/1.25 g (1.62%) transdermal gel Allergies No Known Allergies Social History Tobacco Former smoker, quit more than 30 days ago Tobacco Use:. Never Smokeless Tobacco Use:. Household tobacco concerns: No., 06/18/2025 Family History Hypertension: Father. Immunizations Vaccine Date Status influenza virus vaccine, inactivated 05/31/2023 Recorded influenza virus vaccine, inactivated 06/07/2022 Recorded SARS-CoV-2 (COVID-19) mRNA BNT-162b2 vax 11/12/2020 Recorded SARS-CoV-2 (COVID-19) mRNA BNT-162b2 vax 10/22/2020 Recorded pneumococcal 23-valent vaccine 03/10/2019 RecordedNormOhio State Harding HospitalComment on above:Result Comment: Electronically Signed By: Effie Muhammad.spenser\Date and Time Signed: 06/18/25 12:28 EDTLipid Panelon 06-18-2025 Cholesterol [Mass/Vol]119 mg/mTNle337-569CjtidcKettering Health PrebleComment on above:Performed By: #### [id number] #### [facility] [address], [place] [address]Ailplypjjyv in HDL [Mass/Vol]32 mg/dLInvalid Interpretation CodeKettering Health PrebleComment on above:Result Comment: '>= 60 LOW RISK' '<= 40 HIGH RISK'Performed By: #### [id number] #### [facility] [address], [place] [address]Ajmkdolofwj in LDL [Mass/Vol]85 mg/dLNormal<=129K[facility]tering Health PrebleComment on above:Performed By: #### [id number] #### [facility] [address], [place] [address]Ypglklpvqja in VLDL [Mass/Vol]12 mg/dLNormal7-40K[facility] Health PrebleComment on above:Performed By: #### [id number] #### [facility] [address], [place] [address]Fmemfyfgcrpl [Mass/Vol]61 mg/dLNormal<=149K[facility] Health PrebleComment on above:Performed By: #### [id number] #### [facility] [address], [place] [address]TAP AND AUTO DIFFon [id number] BASOPHIL0.2 X10E9/L Normal0.0-0.2ProMedica St. Joseph'S Medical CenterComment on above:Performed By: #### 64225-9, 30511-5 #### [facility] ([id number]) [address] [place] [address] #### LIVR, 75714-5, 2731-8, 2498-4, HA1C, 213-9, 3016-3, CBCA #### [facility] ([id number]) [address], [address] [place], [place] [address]GOIDHDVJ NEUTROPHIL5.2 X10E9/LNormal1.5-6.6ProMedica St. Joseph'S Medical CenterComment on above:Performed By: #### 10968-9, 74943-1 #### [facility] ([id number]) [address] [place] [address] #### LIVR, 61735-4, 2731-8, 2498-4, HA1C, 2132-9, 3016-3, CBCA #### [facility] ([id number]) [address], [address] [place], [place] [address]Eavcdhsyp/100 WBC (Bld)2.6 %NormalProMedica Bingham Hospital Comment on above:Performed By: #### 26522-6, 07294-2 #### [facility] ([id number]) [address] [place] [address] #### LIVR, 92640-7, 2731-8, 2498-4, HA1C, 2132-9, 3016-3, CBCA #### [facility] ([id number]) [address] [place] [address], [address] [place], [place] [address]Rdinfixjzsn (Bld) [#/Vol]0.1 10*3/uLNormal0.0-0.4Kettering HealthComment on above:Performed By: #### 63825-9, 63818-4 #### [facility] ([id number]) [address] [place] [address] #### LIVR, 81970-4, 2731-8, 2498-4, HA1C, 2132-9, 3016-3, CBCA #### [facility] ([id number]) [address] [place] [address], [address] [place], [place] [address]Ecflnekcczj/100 WBC (Bld)1.5 %[facility] Comment on above:Performed By: #### 73528-9, 19819-4 #### [facility] ([id number]) [address] [place] [address] #### LIVR, 72038-7, 2731-8, 2498-4, HA1C, 2132-9, 3016-3, CBCA #### [facility] ([id number]) [address] [place] [address], [address] [place], [place] [address]Mhauogxzwpt distribution width (RBC) [Ratio]16.0 %High11.5-15.0 ProMProvidence Mission Hospital Laguna BeachComment on above:Performed By: #### 82354-5, 36862-5 #### [facility] ([id number]) [address] [place] [address] #### LIVR, 88363-9, 2731-8, 2498-4, HA1C, 2-9, 3016-3, CBCA #### [facility] ([id number]) [address], [address] [place], [place] [address]Zeivylpmcm (Bld) [Volume fraction]44.1 %Cnfmdc22-40NdmPhcbiyLongview Regional Medical CenterComment on above:Performed By: #### 86139-5, 70905-2 #### [facility] ([id number]) [address] [place] [address] #### LIVR, 35929-3, 2731-8, 2498-4, HA1C, 2-9, 3016-3, CBCA #### [facility] ([id number]) [address], [address] [place], [place] [address]Hlvjmaupks (Bld) [Mass/Vol]14.6 g/qOPybjtg57.0-17.0Kettering HealthComment on above:Performed By: #### 60291-7, 01270-5 #### [facility] ([id number]) [address] [place] [address] #### LIVR, 12940-0, 2731-8, 2498-4, HA1C, 2-9, 3016-3, CBCA #### [facility] ([id number]) [address], [address] [place], [place] [address]Rcmtwgwghde (Bld) [#/Vol]1.3 10*3/uLNormal1.0-3.5PPike Community HospitalComment on above:Performed By: #### 33130-7, 87626-6 #### [facility] ([id number]) [address] [place] [address] #### LIVR, 34942-0, 2731-8, 2498-4, HA1C, 2-9, 3016-3, CBCA #### [facility] ([id number]) [address], [address] [place], [place] [address]Floqzysorui/100 WBC (Bld)18.4 %NormalKettering Health Comment on above:Performed By: #### 40750-0, 95524-6 #### [facility] ([id number]) [address] [place] [address] #### LIVR, 67454-5, 2731-8, 2498-4, HA1C, 2131-9, 3016-3, CBCA #### [facility] ([id number]) [address], [address] [place], [place] [address]TEQ (RBC) [Entitic mass]28.3 zeByyqtc87-95QcqFkxbsqLongview Regional Medical CenterComment on above:Performed By: #### 58327-3, 74242-0 #### [facility] ([id number]) [address] [place] [address] #### LIVR, 05535-9, 2731-8, 2498-4, HA1C, 2-9, 3016-3, CBCA #### [facility] ([id number]) [address], [address] [place], [place] [address]CIXW (RBC) [Mass/Vol]33.1 g/lDTsubgu13-88MztFyebztKettering HealthComment on above:Performed By: #### 50472-5, 64084-6 #### [facility] ([id number]) [address] [place] [address] #### LIVR, 15017-2, 2731-8, 2498-4, HA1C, 2132-9, 3016-3, CBCA #### [facility] ([id number]) [address], [address] [place], [place] [address]MMK (RBC) [Entitic vol]85 pAGhbhns62-903WljAexrnr Fremont HospitalComment on above:Performed By: #### 51170-0, 44443-7 #### [facility] ([id number]) [address] [place] [address] #### LIVR, 84391-8, 2731-8, 2498-4, HA1C, 2131-9, 3016-3, CBCA #### [facility] ([id number]) [address], [address] [place], [place] [address]Nwdjvgklg (Bld) [#/Vol]0.3 10*3/uLNormal0-0.9ProLongview Regional Medical CenterComment on above:Performed By: #### 46718-9, 75341-6 #### [facility] ([id number]) [address] [place] [address] #### LIVR, 34392-1, 2731-8, 2498-4, HA1C, 2131-9, 3016-3, CBCA #### [facility] ([id number]) [address], [address] [place], [place] [address]Mtejwmvcl/100 WBC (Bld)4.3 %NormalProLongview Regional Medical Center Comment on above:Performed By: #### 82317-8, 03965-5 #### [facility] ([id number]) [address] [place] [address] #### LIVR, 09144-8, 2731-8, 2498-4, HA1C, 2-9, 3016-3, CBCA #### [facility] ([id number]) [address], [address] [place], [place] [address]Lpmgcmjguqy/100 WBC (Bld)73.2 %NormalKettering Health Comment on above:Performed By: #### 23884-5, 04632-8 #### [facility] ([id number]) [address] [place] [address] #### LIVR, 87883-0, 2731-8, 2498-4, HA1C, 2132-9, 3016-3, CBCA #### [facility] ([id number]) [address], [address] [place], [place] [address]Iwfgcpot mean volume (Bld) [Entitic vol]7.6 fLNormal7-12 Kettering HealthComment on above:Performed By: #### 99457-9, 80785-9 #### [facility] ([id number]) [address] [place] [address] #### LIVR, 05201-7, 2731-8, 2498-4, HA1C, 2132-9, 3016-3, CBCA #### [facility] ([id number]) [address], [address] [place], [place] [address]Pyovhwzdf (Bld) [#/Vol]234 10*3/nKAycymk410-457TfmFabuehKettering HealthComment on above:Performed By: #### 52701-7, 05019-7 #### [facility] ([id number]) [address] [place] [address] #### LIVR, 61306-1, 2731-8, 2498-4, HA1C, 2132-9, 3016-3, CBCA #### [facility] ([id number]) [address], [address] [place], [place] [address]BOV COUNT5.16 X10E12/LNormal4.10-5.70[facility] Comment on above:Performed By: #### 74487-9, 57618-8 #### [facility] ([id number]) [address] [place] [address] #### LIVR, 34650-3, 2731-8, 2498-4, HA1C, 2132-9, 3016-3, CBCA #### [facility] ([id number]) [address], [address] [place], [place] [address]NTG (Bld) [#/Vol]7.1 10*3/uLNormal4.0-11.0ProLongview Regional Medical CenterComment on above:Performed By: #### 07171-7, 57217-1 #### [facility] ([id number]) [address] [place] [address] #### LIVR, 42691-6, 2731-8, 2498-4, HA1C, 2-9, 3016-3, CBCA #### [facility] ([id number]) [address], [address] [place], [place] [address]QSA A1C (GLYCO-HGB)on 25-16-7241Qpkfiru [Mass/Vol]103 mg/dL NormalProLongview Regional Medical CenterComment on above:Performed By: #### 30194-8, 16962-2 #### [facility] ([id number]) [address] [place] [address] #### LIVR, 82138-0, 2731-8, 2498-4, HA1C, 2132-9, 3016-3, CBCA #### [facility] ([id number]) [address], [address] [place], [place] [address]XpT9n (Bld) [Mass fraction]5.2 %Normal4.4-5.6ProLongview Regional Medical CenterComment on above:Result Comment: NOTE ADA Guidelines Result HgbA1c Normal : less than 5.7 % Prediabetes : 5.7 % to 6.4 % Diabetes : > 6.4 % Use with caution in patients with abnormal hemoglobin variants as the half-life of red blood cells and in vivo glycation rates are affected.Performed By: #### 88760-3, 07048-1 #### [facility] ([id number]) [address] [place] [address]66 #### LIVR, 23842-8, 2731-8, 2498-4, HA1C, 2132-9, 3016-3, CBCA #### [facility] ([id number]) [address], [address] [place], [place] [address]YWSNww 58-87-2390Ypas [Mass/Vol]51 ug/gADxdjrw15-150LlcQgxxpc [facility]rem[facility] HospitalComment on above:Performed By: #### 21162-8, 39185-3 #### [facility] ([id number]) [address] [place] [address]99[address] #### LIVR, 55482-7, 2731-8, 2498-4, HA1C, 2-9, 3016-3, CBCA #### [facility] ([id number]) [address], [address] [place], [place] [address]Nquqdvw.free and Insulin.total panel Qnon 17-19-1420Whhizxn, Free, S146 mcIU/mLHigh3 - 25ProLongview Regional Medical CenterComment on above:Performed By: #### 78471-2, 19608-5 #### [facility] ([id number]) [address] [place] [address] #### LIVR, 02845-7, 2731-8, 2498-4, HA1C, 2132-9, 3016-3, CBCA #### [facility] ([id number]) [address], [address] [place], [place] [address]Qygjzjq, Total, S168 mcIU/mLHigh3 - 25[facility] Comment on above:Result Comment: NOTE ADDITIONAL INFORMATION This test has been modified from the valet cashier's instructions. Its performance characteristics were determined by [facility] in a manner consistent with [...] the total insulin concentration. Test Performed by: [place] [address] [employer] Floor [employer]: Leslye Pink Ph.D.; CLIA# [id number] By: #### 35940- 9, 33972-9 #### [facility] ([id number]) [address] [place] [address] 10071 #### LIVR, 90123-6, 2731-8, 2498-4, HA1C, 2131-9, 3016-3, CBCA #### [facility] ([id number]) [address] [place] [address], [address] [place], [place] [address]SKVZM PANELon 70-58-4111Vspajjx [Mass/Vol]3.7 g/dLNormal3.2-5.[address] Joseph'S Medical CenterComment on above:Performed By: #### 37492-3, 24380-2 #### [facility] ([id number]) [address] [place] [id number] #### LIVR, 56434-3, 2731-8, 2498-4, HA1C, 2132-9, 3016-3, CBCA #### [facility] ([id number]) [address], [address] [place] [address]JOA [Catalytic activity/Vol]59 U/TKmbfgz74-052XgsQfebalLongview Regional Medical CenterComment on above:Performed By: #### 88940-4, 89360-9 #### [facility] ([id number]) [address] [place] [address] #### LIVR, 12546-1, 2731-8, 2498-4, HA1C, 2131-9, 3016-3, CBCA #### [facility] ([id number]) [address], [address] [place] [address]ZOS [Catalytic activity/Vol]19 U/LNormal0-40ProLongview Regional Medical CenterComment on above:Performed By: #### 99538-9, 96242-2 #### [facility] ([id number]) [address] [place] [address] #### LIVR, 74078-0, 2731-8, 2498-4, HA1C, 2131-9, 3016-3, CBCA #### [facility] ([id number]) [address], [address] [place], [place] [address]CNI [Catalytic activity/Vol]18 U/LNormal0-41ProLongview Regional Medical CenterComment on above:Performed By: #### 23788-6, 16435-1 #### CASA [facility] ([id number]) [address] [place] [address] #### LIVR, 63898-8, 2731-8, 2498-4, HA1C, 2-9, 3016-3, CBCA #### [facility] ([id number]) [address], [address] [place], [place] [address]Ouluvaehx [Mass/Vol]0.5 mg/dLNormal0.3-1.2ProMedica St. Joseph'S Medical CenterComment on above:Performed By: #### 35293-5, 43221-6 #### [facility] ([id number]) [address] [place] [address] #### LIVR, 29803-7, 2731-8, 2498-4, HA1C, 2132-9, 3016-3, CBCA #### [facility] ([id number]) [address], [address] [place], [place] [address]Traoxzdtv.direct [Mass/Vol]0.1 mg/dLNormal0.0-0.4Kettering HealthComment on above:Performed By: #### 42811-5, 30494-8 #### [facility] ([id number]) [address] [place] [address] #### LIVR, 78815-7, 2731-8, 2498-4, HA1C, 2-9, 3016-3, CBCA #### [facility] ([id number]) [address], [address] [place], [place] [address]Mrufnod [Mass/Vol]7.3 g/dLNormal6.0-8.0ProLongview Regional Medical CenterComment on above:Performed By: #### 80584-8, 45706-9 #### [facility] ([id number]) [address] [place] [address] #### LIVR, 92385-4, 2731-8, 2498-4, HA1C, 2132-9, 3016-3, CBCA #### [facility] ([id number]) [address], [address] [place], [place] [address]Femxscwfoq.intact [Mass/Vol]on 43-25-7069UGF QGLQAL29 pg/mL Lkncbc99-59AxlMichkk Bingham HospitalComment on above:Performed By: #### 45298- 9, 27726-8 #### [facility] ([id number]) [address] [place] [address] #### HEATHERR, 03028-4, 2731-8, 2498-4, HA1C, 2132-9, 3016-3, CBCA #### [facility] ([id number]) [address] [place] [address], [address] [place], [place] [address]OSI Qnon 32-01-9422FQT6.64 uIU/mLNormal0.49-4.67ProLongview Regional Medical CenterComment on above:Performed By: #### 75078-4, 03886-6 #### [facility] ([id number]) [address] [place] [address] #### LIVR, 23135-3, 2731-8, 2498-4, HA1C, 2131-9, 3016-3, CBCA #### [facility] ([id number]) [address] [place] [address], [address] [place], [place] [address]Dmkadjxssidd free and total panel [Mass/Vol]on 12-01-2024 Testosterone [Mass/Vol]286 ng/pGLjzksq174-494OwoIldfei Fremont HospitalComment on above:Result Comment: NOTE ADDITIONAL INFORMATION Testing performed by Liquid Chromatography-Tandem Mass Spectrometry (LC-MS/MS). This test was developed and its performance characteristics determined by [facility] in a manner consistent with CLIA requirements. This test has not been cleared or approved by the U.S. Food and Drug Administration. Test Performed by: [facility] [address] [place] [address] Mastic Floor Layer: Leslye Pink Ph.D.; CLIA# [id number] By: #### 23526- 9, 17094-1 #### [facility] ([id number]) [address] [place] [address] #### LIVR, 59110-9, 2731-8, 2498-4, HA1C, 2-9, 3016-3, CBCA #### [facility] ([id number]) [address], [address] [place], [place] [address]MZOGSUABHTTH FREE8.16 ng/dLNormal4.26-16.4ProMedica St. Joseph'S Medical CenterComment on above:Result Comment: NOTE ADDITIONAL INFORMATION This test was developed and its performance characteristics determined by [facility] in a manner consistent with CLIA requirements. This test has not been cleared or approved by the U.S. Food and Drug Administration.Performed By: #### 02906-0, 45894-9 #### [facility] ([id number]) [address] [place] [address] #### LIVR, 60414-6, 2731-8, 2498-4, HA1C, 2131-9, 3016-3, CBCA #### [facility] ([id number]) [address] [place], [place] [address]VGXFAGL B12on 28-05-6193Nudbuepmt (Vitamin B12) [Mass/Vol]399 pg/tRZabemv725-354CwtPbyyez St. Joseph'S Medical CenterComment on above:Performed By: #### 82325-0, 60959-4 #### [facility] ([id number]) [address] [place] [address] #### LIVR, 32577-5, 2731-8, 2498-4, HA1C, 2132-9, 3016-3, CBCA #### [facility] ([id number]) [address], [address] [place], [place] [address]Ainxmmc D+Metabolites [Mass/Vol]on 14-04-3150LBHBYFN D 25 HYD TOT36.1 ng/cQBbbqdh08-874WuvXvzpey St. Joseph'S Medical CenterComment on above:Result Comment: Vitamin D status 25 [place] Vitamin D Deficiency <20 ng/mL Insufficiency 20-29 ng/mL Sufficiency 30-100 ng/mL Toxicity >100 ng/mL NOTE: A pediatric reference range has not been established by the valet cashier of this kit. The [place] [employer] recommends a Vitamin D level of = or >20ng/mL in infants and children.Performed By: #### 47615-1, 58846-8 #### [facility] ([id number]) [address] [place] [address], [place] [address] #### LIVR, 71459-4, 2731-8, 2498-4, HA1C, 2132-9, 3016-3, CBCA #### [facility] ([id number]) [address], [address] [place], [place] [address]ZTC LUMBAR SPINE WO CONTRASTon 05-12-2595ZRO LUMBAR SPINE WO CONTRASTEXAMINATION: MRI OF THE LUMBAR SPINE WITHOUT CONTRAST, [...] compromise. L2-L3: No disc bulge or protrusion. Qgkg-bf-ikuitpsg facet arthropathy. No significant central canal stenosis. [...] Signed by: Carson Linares DO 01/24/24 Final resultSouthwest Memorial HospitalMRI THORACIC SPINE WO CONTRASTon 26-96-5072GXF THORACIC SPINE WO CONTRASTEXAMINATION: MRI OF THE THORACIC SPINE WITHOUT CONTRAST [...] Signed by: Carson Linares DO 01/24/24 Final resultNoPikes Peak Regional HospitalCHEMISTRYOrdered By: SYSTEM SYSTEM on 55-10-2599Nnrhdypzx (Vitamin B12) [Mass/Vol]301 pg/rJLnnekl53 - 1500 pg/mLRemisol ChemVitamin D 25 Fwjwelu05.7 ng/zQKbawsx60.0 - 100.0 ng/mLRemisol ChemCHEMISTRYOrdered By: [employer] SYSTEM on 22-33-7102Vrtityfkqgs [Mass/Vol]171 mg/qPZdcqmc089 - 200 mg/dLJIM TALIAFERRO [facility] RemisolCholesterol in HDL [Mass/Vol]39 mg/dL Invalid Interpretation CodeFTMC RemisolCholesterol in LDL [Mass/Vol]112 mg/dL Normal<=129mg/dLFTMC RemisolCholesterol in VLDL [Mass/Vol]19 mg/dLNormal7 - 40 mg/dLFTMC RemisolProstate specific Ag [Mass/Vol]0.9 ng/mLNormal0.1 - 3.5 ng/mL [facility] RemisolTriglyceride [Mass/Vol]94 mg/dLNormal<=149mg/dLFTMC RemisolTSH Qn 2.03 m[IU]/LNormal0.34 - 5.60 mcIU/mLFTMC RemisolHEMATOLOGYOrdered By: [employer] SYSTEM on 49-75-2176Wleyohyph/100 WBC (Bld)0.3 %Normal0.0 - 2.0 %[facility] HemeAutoSS Basophils/Leukocytes Auto (Bld) [Pure # fraction]0.0 E9/LNormal0.0 - 0.2 E9/L [facility] HemeAutoSSEosinophils/100 WBC (Bld)2.1 %Normal0.0 - 8.0 %[facility] HemeAutoSS Eosinophils/Leukocytes Auto (Bld) [Pure # fraction]0.2 E9/LNormal0.0 - 0.5 E9/L [facility] HemeAutoSSLymphocytes/100 WBC (Bld)20.5 %Ytrrzc69.0 - 50.0 %[facility] HemeAutoSS Lymphocytes/Leukocytes Auto (Bld) [Pure # fraction]1.6 E9/LNormal1.0 - 4.0 E9/L [facility] HemeAutoSSMonocytes/100 WBC (Bld)8.7 %Normal4.0 - 14.0 %[facility] HemeAutoSS Monocytes/Leukocytes Auto (Bld) [Pure # fraction]0.7 E9/LNormal0.2 - 1.0 E9/L [facility] HemeAutoSSNeutrophils/100 WBC (Bld)68.4 %Jqlwvq26.0 - 75.0 %[facility] HemeAutoSS Neutrophils/Leukocytes Auto (Bld) [Pure # fraction]5.3 E9/LNormal2.0 - 7.5 E9/L [facility] HemeAutoSSHEMATOLOGYOrdered By: Vaughn Chin on 37-50-8749Eguisiisrsc distribution width (RBC) [Ratio]16.3 %High10.9 - 14.2 %[facility] HemeAutoSSHematocrit (Bld) [Volume fraction]43.7 %Bzuivr55.7 - 49.0 %[facility] HemeAutoSSHemoglobin (Bld) [Mass/Vol]14.4 g/xQPjangq25.5 - 17.5 gm/dLFTMC HemeAutoSSMCH (RBC) [Entitic mass]27.9 cnPdiuul43.0 - 34.0 pgFTMC HemeAutoSSMCHC (RBC) [Mass/Vol]33.0 g/dL Vpewic90.4 - 36.0 gm/dLFTMC HemeAutoSSMCV (RBC) [Entitic vol]84.8 iLXzljvp70.0 - 100.0 fLFTMC HemeAutoSSPlatelet mean volume (Bld) [Entitic vol]7.7 fLNormal6.4 - 10.8 fLFTMC HemeAutoSSPlatelets (Bld) [#/Vol]278.0 E9/PBqyvxv486.0 - 500.0 E9/L [facility] HemeAutoSSRBC (Bld) [#/Vol]5.2 E12/LNormal4.3 - 5.9 E12/LFTMC HemeAutoSSWBC corrected for nucl RBC Auto (Bld) [#/Vol]7.7 E9/LNormal4.0 - 11.0 E9/LFTMC HemeAutoSSCovid-19 PCR ([facility])on 44-58-2220BFCS-CoV-2 (COVID-19) RNA BETHANY+probe Ql (Unsp spec)Not detectedNormalNOT DETECTEDThe [facility] General Hospitalment on above:Result Comment: When diagnostic testing is negative, the [...] for this test is supported by the Clothes Model of Health and Human Service's declaration that circumstances exist to justify the emergency use of in vitro diagnostics for the detection and/or diagnosis of the virus that causes COVID-19. This EUA will remain in effect for the duration of the COVID-19 declaration justifying emergency of IVDs, unless it is terminated or revoked by the FDA (after which the test may no longer be used).Performed By: #### CVDTBH #### [facility] [address] [place] [address] Dr. Mynor Amaya STREP CULTUREon 07-28-2022. pyogenes Ag Ql (Unsp spec) Culture Observations: NEGATIVE FOR GROUP A STREPTOCOCCUS.NormalThe [facility] Community General Hospitalment on above: Performed By: #### GRASTCX #### [facility] [address] [place] [address] Dr. Mynor Rodriguez A AND B AGon 63-65-4929XAWNWCTFUHKUX Kindred Hospital DaytonComment on above:Result Comment: Negative for Flu A protein angiten. Infection due to Flu A cannot be ruled out. FluA angiten in the sample may be below the detection limit of the test.Performed By: #### INFLUAB #### [facility] [address] [place] [address] Dr. Mynor YunINFLUBNEGHSLancaster Municipal Hospital on above: Result Comment: Negative for Flu B protein antigen. Infection due to Flu B cannot be ruled out. FluB antigen in the sample may be below the detection limit of the test.Performed By: #### INFLUAB #### [facility] [address] [place] [address] Dr. Mynor Amaya AGNegativeNormalNEGATIVE SEE COMMENTThe [facility] For RehabilitationComment on above:Performed By: #### INFLUAB #### [facility] [address] [place] [address] Dr. Mynor Piña AGNegativeNormalNEGATIVE SEE COMMENTThe [facility] on above:Performed By: #### INFLUAB #### [facility] [address] [place] [address] Dr. Mynor YunINTERNAL CONTROLSWithin Normal LimitsNormalWithin Normal Limits The [facility] For RehabilitationComment on above:Performed By: #### INFLUAB #### [facility] [address] [place] [address] Dr. Mynor Solis SCREENon 55-17-7358OVDUF SCREEN ANegativeNormalNEGATIVEThe [facility] RehabilitationComment on above:Performed By: #### SSCRN #### [facility] [address] [place] [address] Dr. Mynor YunXR SINUSES 3 VIEWS OR GREATERon 73-72-8481GA SINUSES 3 VIEWS OR GREATEREXAMINATION: XR SINUSES 3 VIEWS OR GREATER HISTORY: Vertigo COMPARISON: No relevant comparison available. FINDINGS: MAXILLARY: No mucosal thickening or fluid level. ETHMOID: No mucosal thickening or fluid level. FRONTAL: No mucosal thickening or fluid level. SPHENOID: No mucosal thickening or fluid level. OTHER: Negative. IMPRESSION: Clear paranasal sinuses Electronically authenticated by: KELLIE SMALLS Date: 2022-02-01 09:[address] [place], [place] [address]HAND LEFT 3 VWSon 05-57-7689CANP LEFT 3 SUniSelect [facility] of Radiology [address] [place] [id number] Patient Name: RAKESH VAUGHN : 1975 Sex: M Age: Race: White Pt. Location: Patient Status: D Ordered Date: 12/29/2021 11:45:00 AM Completed Date: 12/29/2021 11:50 AM Requesting Provider: LORI DALLAS Attending Provider: LORI DALLAS Report Copy To: Signs & Symptoms: M79.642 Pain in left hand I10 History: Comments: Evaluate Exam: HAND LEFT 3 VWS HAND LEFT 3 VWS 12/29/2021 11:50 AM [...] alignment. Electronically signed: Edgardo Montana. Transcribed by: [email or web address], User Resident: Electronically Signed by: EDGARDO MONTANA @ 12/31/2021 08:55 SCCI Hospital LimaComment on above:Order Comment: EvaluateHAND LEFT 3 VWSon 67-99-6481XXEC LEFT 3 SUniSelect [facility] of Radiology [address] [place] [id number] Patient Name: RAKESH VAUGHN : 1975 Sex: M Age: Race: White Pt. Location: 84 Patient Status: D Ordered Date: 12/08/2021 1:25:00 PM Completed Date: 12/08/2021 01:29 PM Requesting Provider: LORI DALLAS Attending Provider: LORI DALLAS Report Copy To: Signs & Symptoms: M79.642 Pain in left hand I10 History: Rekha Comments: Evaluate Exam: HAND LEFT 3 VWS [...] bridging. Electronically signed: Ronaldo Major. Transcribed by: [email or web address], User Resident: Electronically Signed by: RONALDO MAJOR @ 12/09/2021 04:04 [facility] Hospital DaytonComment on above:Order Comment: EvaluateHAND LEFT 3 VWSon 22-27-1300VSBB LEFT 3 SUniSelect [facility] of Rad[facility] [address] [place] [phone] Patient Name: RAKESH VAUGHN : 1975 Sex: M Age: Race: White [...] fracture. Electronically signed: Timo Smith. Transcribed by: [email or web address], User Resident: Electronically Signed by: TIMO SMITH @ 11/14/2021 08:02 PMNormalThe Sheltering Arms HospitalComment on above:Order Comment: Views (X-RAY, HAND): PA, Lateral, ObliqueTESTOSTERONE, TOTALon 10-13-3159Cnufnzfmqefi [Mass/Vol]411 ng/jYMshepj723-080Eby [facility] RehabilitationComment on above:Result Comment: Adult male reference interval is based on a population of healthy nonobese males (BMI <30) between 19 and 39 years old. precious Perdue.al. JCEM 2017,102;1922-2830. PMID: [id number].Performed By: #### TESTTOT #### [facility] [address] [place] [address] Dr. Mynor Sosa AUTO DIFFon 63-64-7169VKZP #0.0 103/ulNormal0.0-0.1The Christ HospitalComment on above:Performed By: #### CBC #### [facility] [address] [place] [address] Dr. Yilan ChangBasophils/100 WBC (Bld)0.2 %Normal0.2-2.0The [facility] Comment on above:Performed By: #### CBC #### [facility] [address] [place] [address] Dr. Mynor Echols #0.1 103/ulNormal0.0-0.7The [facility] For RehabilitationComment on above: Performed By: #### CBC #### [facility] [address] [place] [address] Dr. Mynor Escamillaosinophils/100 WBC (Bld)1.2 %Normal0.9-7.0The [facility] Comment on above:Performed By: #### CBC #### [facility] [address] [place] [address] Dr. Mynor Escamillarythrocyte distribution width (RBC) [Ratio]14.3 %Xgocmq29.0-15.0 The [facility] RehabilitationComment on above:Performed By: #### CBC #### [facility] [address] [place] [address] Dr. Mynor YunHematocrit (Bld) [Volume fraction]47.3 %Yhanfz58.0-54.0The [facility] RehabilitationComment on above:Performed By: #### CBC #### [facility] [address] [place] [address] Dr. Mynor YunHemoglobin (Bld) [Mass/Vol]15.2 g/lLVsnrcp73.0-18.0The [facility] RehabilitationComment on above:Performed By: #### CBC #### [facility] [address] [place] [address] Dr. Mynor Perez #0.03 10e3/ulNormal0.00-0.03The [facility] RehabilitationComment on above:Performed By: #### CBC #### [facility] [address] [place] [address] Dr. Mynor Perez %0.3 %Normal0.0-0.5The [facility] For RehabilitationComment on above: Performed By: #### CBC #### [facility] [address] [address] [address] Mynor Pierce #1.6 103/ulNormal1.2-3.8The [facility] For RehabilitationComment on above:Performed By: #### CBC #### [facility] [address] [place] [address] Dr. Mynor Lombardihocytes/100 WBC (Bld)18.4 %Critically low20.5-60.0The [facility] For RehabilitationComment on above:Performed By: #### CBC #### [facility] [address] [place] [address] Dr. Mynor MorleyUAL DIFF REQNONormalThe [facility] RehabilitationComment on above: Performed By: #### CBC #### [facility] [address] [place] [address] Dr. Mynor Gates (RBC) [Entitic mass]28.8 qnClyjdw93.9-34.0The [facility] RehabilitationComment on above:Performed By: #### CBC #### [facility] [address] [place] [address] Dr. Mynor Gates (RBC) [Mass/Vol]32.1 g/uCQdtmng37.9-35.2The [facility] RehabilitationComment on above:Performed By: #### CBC #### [facility] [address] [place] [address] Dr. Mynor Gates (RBC) [Entitic vol]89.8 aHMaubdb68.0-94.0The [facility] RehabilitationComment on above:Performed By: #### CBC #### [facility] [address] [place] [address] Dr. Mynor Leon #0.7 103/ulNormal0.3-0.8The [facility] RehabilitationComment on above:Performed By: #### CBC #### [facility] [address] [place] [address] Dr. Mynor Grigsbyocytes/100 WBC (Bld)8.4 %Normal1.7-12.0The [facility] Comment on above:Performed By: #### CBC #### [facility] [address] [place] [address] Dr. Mynor ArmijoUT #6.2 103/ulNormal1.4-6.5The [facility] Hospitalment on above:Performed By: #### CBC #### [facility] [address] [place] [address] Dr. Mynor Armijoutrophils/100 WBC (Bld)71.5 %Eugrrd95.0-75.0[facility] on above:Performed By: #### CBC #### [facility] [address] [place] [address] Dr. Mynor YunPlatelet mean volume (Bld) [Entitic vol]8.7 fLCritically low 9.5-13.5The [facility] RehabilitationCombeaumont hospital on above:Performed By: #### CBC #### [facility] [address] [place] [address] Dr. Mynor YunPLT263 103/gbVcqdqw333-533Amz [facility] on above: Performed By: #### CBC #### [facility] [address] [place] [address] Dr. Mynor YunRBC5.27 106/ulNormal4.70-6.10The [facility] on above:Performed By: #### CBC #### [facility] [address] [place] [address] Dr. Mynor YunWBC8.7 103/ulNormal4.0-11.0The [facility] on above: Performed By: #### CBC #### [facility] [address] [place] [address] Dr. Mynor YunLIPID PROFILEon 90-34-7259CSBO-HDL RATIO NORMSEE [facility] on above:Result Comment: 3.3 - 4.4 LOW RISK 4.4 - 7.1 AVERAGE RISK 7.1 - 11.0 MODERATE RISK >11.0 HIGH RISKPerformed By: #### SSCRN #### [facility] [address] [place] [address] Dr. Mynor YunCholesterol [Mass/Vol]129 mg/dLNormal<=200[facility] Comment on above:Performed By: #### SSCRN #### [facility] [address] [address] [address] Mynor YunCholesterol in HDL [Mass/Vol]34 mg/dLTwin City Hospital Comment on above:Performed By: #### SSCRN #### [facility] [address] [address] [address] Mynor YunCholesterol in LDL [Mass/Vol]82.2 mg/dLTwin City HospitalComment on above:Performed By: #### SSCRN #### [facility] [address] [place] [address] Dr. Mynor Luiesterkatja.total/Cholesterol in HDL [Mass ratio]3.8 {ratio} NormalThe Christ HospitalComment on above:Performed By: #### SSCRN #### [facility] [address] [address] [address] Mynor Trimble NORMAL> or = 60 mg/dl - LOW CARDIOVASCULAR RISK <40 mg/dl - HIGH CARDIOVASCULAR RISKTwin City HospitalComment on above:Performed By: #### SSCRN #### [facility] [address] [place] [address] Dr. Mynor Tomlinson CALC NORMALSEE BELOWTwin City HospitalComment on above:Result Comment: <100 mg/dl OPTIMAL 100 - 129 mg/dl NEAR OR ABOVE OPTIMAL 130 - 159 mg/dl BORDERLINE HIGH 160 - 189 mg/dl HIGH >190 mg/dl VERY HIGH Performed By: #### SSCRN #### [facility] [address] [address] [address] Mynor YunTriglyceride [Mass/Vol]64 mg/dLNormal<=150[facility] Comment on above:Performed By: #### SSCRN #### [facility] [address] [place] [address] Dr. Mynor YunVLDL CALC12.8 mg/dLNoOhioHealth Riverside Methodist HospitalComment on above: Performed By: #### SSCRN #### [facility] [address] [place] [address] Dr. Mynor Krueger 14(COMP METB)on 83-39-1213Tzdajax [Mass/Vol]3.8 g/dLNormal 3.5-5.0The [facility] RehabilitationComment on above:Performed By: #### TSH, LIPID, CMP #### [facility] [address] [place] [address] Dr. Mynor YunAlbumin/Globulin [Mass ratio]0.9 {ratio}NormalThe [facility] For RehabilitationComment on above:Performed By: #### TSH, LIPID, CMP #### [facility] [address] [place] [address] Dr. Mynor Meza [Catalytic activity/Vol]76 U/IKeokrt76-125Ctx [facility] For RehabilitationComment on above:Performed By: #### TSH, LIPID, CMP #### [facility] [address] [place] [address] Dr. Mynor Sarabia [Catalytic activity/Vol]49 U/OUeykyu37-38Tfg [facility] RehabilitationComment on above:Performed By: #### TSH, LIPID, CMP #### [facility] [address] [place] [address] Dr. Mynor Ramírez gap [Moles/Vol]11.2 mmol/LNormalThe [facility] Comment on above:Performed By: #### TSH, LIPID, CMP #### [facility] [facility] [address] [place] [address] Dr. Mynor Brady [Catalytic activity/Vol]31 U/RZtvfam42-60Ymc [facility] RehabilitationComment on above:Performed By: #### TSH, LIPID, CMP #### [facility] [address] [place] [address] Dr. Mynor YunBilirubin [Mass/Vol]0.5 mg/dLNormal0.2-1.3The [facility] Comment on above:Performed By: #### TSH, LIPID, CMP #### [facility] [address] [place] [address] Dr. Mynor YunCalcium [Mass/Vol]9.0 mg/dLNormal8.4-10.2[facility] Comment on above:Performed By: #### TSH, LIPID, CMP #### [facility] [address] [address] [address] Mynor YunChloride [Moles/Vol]104 mmol/XTtmqjh19-983Hgj [facility] Comment on above:Performed By: #### TSH, LIPID, CMP #### [facility] [address] [address] [address] Mynor YunCO2 [Moles/Vol]30.6 mmol/LCritically high22.0-30.0The [facility] RehabilitationComment on above:Performed By: #### TSH, LIPID, CMP #### [facility] [address] [place] [address] Dr. Mynor YunCreatinine [Mass/Vol]0.95 mg/dLNormal0.66-1.25The [facility] RehabilitationComment on above:Performed By: #### TSH, LIPID, CMP #### [facility] [address] [place] [address] Dr. Mynor EscamillaGFR-AF PORTUGUESE>60Normal>=60The [facility] RehabilitationComment on above:Performed By: #### TSH, LIPID, CMP #### [facility] [address] [place] [address] Dr. Mynor EscamillaGFR-NON AF PORTUGUESE>60Normal>=60The [facility] RehabilitationComment on above:Performed By: #### TSH, LIPID, CMP #### [facility] [address] [place] [address] Dr. Mynor YunGlobulin (S) [Mass/Vol]4.3 g/dLNormalThe [facility] RehabilitationComment on above:Performed By: #### TSH, LIPID, CMP #### [facility] [address] [place] [address] Dr. Mynor YunGlucose [Mass/Vol]104 mg/nBDghjhh17-021Prd [facility] Comment on above:Performed By: #### TSH, LIPID, CMP #### [facility] [address] [address] [address] Mynor YunPotassium [Moles/Vol]3.8 mmol/LNormal3.4-5.0The [facility] Comment on above:Performed By: #### TSH, LIPID, CMP #### [facility] [address] [address] [address] Mynor YunProtein [Mass/Vol]8.1 g/dLNormal6.1-8.2The [facility] Comment on above:Performed By: #### TSH, LIPID, CMP #### [facility] [address] [address] [address] Mynor YunSodium [Moles/Vol]142 mmol/ZRkirkx053-892AmaThe [facility] Comment on above:Performed By: #### TSH, LIPID, CMP #### [facility] [address] [place] [address] Dr. Mynor YunUrea nitrogen [Mass/Vol]11.0 mg/dLNormal9.0-20.0The [facility] HospitalComment on above:Performed By: #### TSH, LIPID, CMP #### [facility] [address] [place] [address] Dr. Mynor Crow nitrogen/Creatinine [Mass ratio]11.6 mg/mgNoOhioHealth Riverside Methodist HospitalComment on above:Performed By: #### TSH, LIPID, CMP #### [facility] [address] [place] [address] Dr. Mynor Canela 04-02-2497GHM0.612 uIU/mLNormal0.470-4.680The [facility] HospitalComment on above:Performed By: #### TSH, LIPID, CMP #### [facility] [address] [place] [address] Dr. Mynor HARVEY BELOWTwin City HospitalComment on above: Result Comment: <0.34 UIU/ml HYPERTHYROID 0.34-5.60 UIU/ml EUTHYROID >5.60 UIU/ml HYPOTHYROIDPerformed By: #### TSH, LIPID, CMP #### [facility] [address] [address] [address] Mynor Yun Vital Signs Date TimeVital SignValuePerforming FccuigzrsJbiiabsr67-39-1620 09:55-0400Body eqgqku180.3 Natan Potter MD Work Phone: [facility]08-15-2025 09:55-0400Body mass index (BMI) [Ratio]56.74 kg/b3CzhhmNury Potter MD Work Phone: [facility]08-15-2025 09:55-0400Body zqfivn809.27 kgNury Potter MD Work Phone: [facility]07-10-2025 11:42-0400Body .26 cmJodi Torsten [employer] Work Phone: [phone] [place], [place] 6181707-10-2025 11:42-0400 Diastolic blood hnfmqkwy27 mm[Hg]Effie Torsten [employer] Work Phone: [phone] [place], [place] 6181707-10-2025 11:42-0400 Heart rate79 /minJodi Torsten [employer] Work Phone: 1([phone])468-[address] [place], [place] 6181707-10-2025 11:42-0400 Respiratory rate12 /minJodi Torsten [employer] Work Phone: 1([phone])611-[address] [place], [place] 6181707-10-2025 11:42-0400 Systolic blood boozisbp025 mm[Hg]Effie Torsten [employer] Work Phone: [phone] [place], [place] 6181706-03-2025 10:00-0400 Body mass index (BMI) [Ratio]56.85 kg/m2Gucqlzuo [facility] 02-10-2025 10:00-0400Body .[address] vin[facility] infirmaryingrid [facility] 01-23-2025 09:34-0400Body zgayws159.3 Natan Potter MD Work Phone: [facility]05-16-2025 09:34-0400Body mass index (BMI) [Ratio]56.88 kg/x8ArazaNury Potter MD Work Phone: [phone] [place], [place] 1417405-16-2025 09:34-0400Body .73 kgNury Potter MD Work Phone: [phone] [place], [place] 1417405-16-2025 09:34-0400Diastolic blood ouaghtvm661 mm[Hg]Nury Potter MD Work Phone: [phone])[address] [place], [place] 1417405-16-2025 09:34-0400Systolic blood ddvjiqra686 mm[Hg]Nury Potter MD Work Phone: 1(357)[address] [place], [place] 1417405-01-2025 09:00-0400Body mass index (BMI) [Ratio]55.17 kg/o1MonvlsxsHawarden Regional Healthcare05-01-2025 09:00-0400Body iypwtr149.9 kgHawarden Regional Healthcare04-01-2025 09:00-0400Body .1 cmHawarden Regional Healthcare2025 09:48-0400Body yokgiy231.1 Natan Potter MD Work Phone: [phone] [place], [place] 1417403-21-2025 09:48-0400Body mass index (BMI) [Ratio]55.17 kg/z8CbtwcNury Potter MD Work Phone: [phone])[address] [place], [place] 1417403-21-2025 09:48-0400Body opzuhg504.9 kgNury Potter MD Work Phone: [phone])[address] [place], [place] 1417402-26-2025 10:17-0500Body vhivfl997.3 cmAnthoelaine Delgadilloher DPM Work Phone: [phone] CenterFpziscahwp57-20-1299 10:17-0500Body mass index (BMI) [Ratio]55.38 kg/w9Aiyhynk Rusher DPM Work Phone: [phone] CenterTrjoqpyjvy71-25-3849 10:17-0500Body ltyeqn858.1 kgAnthony Rusher DPM Work Phone: [facility] CenterJtserjurkk39-72-4802 10:31-0500Body jenbmk350.3 cmAnttyrone Conte DPM Work Phone: [phone] CenterAsodoecotl71-45-3766 10:31-0500Body mass index (BMI) [Ratio]55.38 kg/e3XdkvgslPedro Conte DPM Work Phone: [facility] CenterFtlahoqefj34-76-7160 10:31-0500Body .1 kgAnthsanjay Conte DPM Work Phone: [facility] Healthcare Encounters Encounter DateEncounter TypeCare ProviderFacilityStart: 06-11-2460djzstfdebsQlgf L SchwabFacility:FT Bellevtart: 06-30-2025 End: 11-76-1950iixbdiuebxUwyy L SchwabFacility:FT BellevueStart: 06-18-2025 End: 21-69-5896bialevwtcqNemb L SchwabFacility:[facility] CenterueStart: 06-05-2025 End: 48-49-5095EorrfyTcxry N Pratt MD Work Phone: [facility] SurgeryComment on above: Low 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Start: 04-24-2025 End: 53-15-8131Vstxif outpatient visit 25 minutesNury Potter MD Work Phone: [facility] SurgeryComment on above: Insulin resistance (Primary Dx); Incisional hernia, without obstruction or gangrene; Low 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; Morbid obesity with BMI of 50.0-59.9, adult ([facility])Start: 04-24-2025 End: 14-14-9608enuqeueawzPLSOS N PRATTUniversity [facility]als [facility] Ambulatory PPGStart: 03-19-2025 End: 46-52-9740bibfyfubsvTmeqDagoberto FLORES Work Phone: [facility] Work Phone: Start: 03-19-2025 End: 20-63-8308Vzsxplx encounter procedureJose Carlos Whitt DO-FPG [facility] Work Phone: Start: 03-16-2025 End: 33-70-1616Aonlmp Alex Potter MD Work Phone: [facility] Surgery-BariatricComment on above:Low 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Start: 02-10-2025 End: 91-46-5922Xudzsidhswxd consultation with [facility] DieticiansComment on above:Dietary counseling and surveillance (Primary Dx); Morbid obesity ([facility])Start: 02-10-2025 End: 98-10-8600aibtirelvbJXHCCNUOProMedica Toledo Hospitaltart: 01-23-2025 End: 57-78-6006Qjiiql outpatient visit 25 minutesNury Potter MD Work Phone: [facility] SurgeryComment on above: Insulin resistance (Primary Dx); Morbid obesity ([facility]); Low 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Start: 01-23-2025 End: 25-63-1076xrkqeiqygpUREHJ N [facility] MEDICAL CENTERBRIEChildren's Healthcare of Atlanta Scottish RiteStart: 01-08-2025 End: 17-16-9025uxguqetjlaYVVVYTFWProMedica Toledo Hospitaltart: 01-08-2025 End: 67-67-5963Qpvbmjpekzpi consultation with [facility] Noriega [facility] DieticiansComment on above:Dietary counseling and surveillance (Primary Dx); Morbid obesity ([facility]); History of sleeve gastrectomyStart: 12-29-2024 End: 52-84-9250lacggcsxtrDuynepgGallito Buckner MDFacility:[facility] [place] Start: 12-09-2024 End: 36-02-0675Slmqtncvvlih consultation with [facility] Noriega [facility] DieticiansComment on above:Dietary counseling and surveillance (Primary Dx); Morbid obesity ([facility]); History of sleeve gastrectomyStart: 12-09-2024 End: 54-52-3210ifefgfddlxFXDNVEAVMercy Health Kings Mills Hospitaltart: 12-01-2024 End: 87-06-7060tewezycetzKREV N [facility] Hospitaltart: 11-28-2024 End: 37-71-0273Acihms outpatient new 45 minutesNury Potter MD Work Phone: [facility] General SurgeryComment on above: History of sleeve gastrectomy (Primary Dx); Morbid obesity with BMI of 50.0-59.9, adult ([facility])Start: 11-28-2024 End: 21-64-7430arnrjoqnkyCTOPVKingsbrook Jewish Medical Center Ambulatory PPGStart: 11-26-2024 End: 10-97-1627wgatfbwkcaBVNUMTY S RUSHERNot AvailableStart: 11-05-2024 End: 22-49-6818Wmzcqj flowsheetAnthony S Rusher DPM Work Phone: [facility]oms PODIATRYStart: 11-05-2024 End: 62-13-7969Wziign flowsheetAnthony S Rusher DPM Work Phone: noms PODIATRYStart: 11-05-2024 End: 05-00-9914cgpzoxjwmxKXWXAWI S RUSHERNot AvailableStart: 11-05-2024 End: 47-06-2009Syrcyf follow up visit related to original pxAnthony S Rusher DPM Work Phone: noms PODIATRYComment on above:Valgus deformity, not elsewhere classified, right ankle (Primary Dx); Valgus deformity, not elsewhere classified, left ankle; Instability of left foot joint; Instability of right foot joint; Leg length discrepancy; Posterior tibial tendon dysfunction, bilateralStart: 10-08-2024 End: 67-74-1554Aihjqt flowsheetAnthony S Rusher DPM Work Phone: [facility]oms PODIATRYStart: 10-08-2024 End: 05-79-6565Jwhdht flowsheetAnthony S Rusher DPM Work Phone: noms PODIATRYStart: 10-08-2024 End: 14-68-7534Licpfbvqv encounterEmily MERAZ PODIATRYComment on above:Foot OrthoticsStart: 10-08-2024 End: 13-62-8002Cmzzsd outpatient new 30 minutesAnthsanjay Conte DPM Work Phone: NOTN PODIATRYComment on above:Valgus deformity, not elsewhere classified, right ankle (Primary Dx); Valgus deformity, not elsewhere classified, left ankle; Instability of left foot joint; Instability of right foot joint; Leg length discrepancyStart: 10-08-2024 End: 56-36-6059qbtupzivkiTONACYS Melissa CONTEHay AvailableStart: 09-01-2024 End: 77-72-5174fandjitjlbJwqkbwl Vytautas Giedraitis MDFacility:[facility] [place] Start: 07-21-2024 End: 94-33-2026dxurrhtyfsMsihrxz Vytautas Giedraitis MDFacility:[facility] [place] Start: 06-30-2024 End: 39-00-0167dyvrhkfutiJehjsmw Vytautas Giedraitis MDFacility:[facility] [place] Start: 03-10-2024 End: 66-34-8489jigonzwcnwJoksedt Vytautas Giedraitis MDFacility:[facility] [place] Start: 02-25-2024 End: 72-57-5379uqzwtvkgvyVhncvjn Vytautas Giedraitis MDFacility:[facility] [place] Start: 02-18-2024 End: 48-20-7397oscxfqfpmhZjfuhbf Vytautas Giedraitis MDFacility:[facility] [place] Start: 01-23-2024 End: 95-00-1237zxcztqawdfJQJJ [facility] Centertart: 08-23-2023 End: 47-07-2326Kep Drop offJodi L Torsten [facility] Start: 03-19-2023 End: 42-95-8856Eom Drop offJodi L Torsten [facility] Start: 07-28-2022 End: 46-21-0292vkimvuzqkcIX KIM E KNIGHTFacility:G4Akjhx: 02-01-2022 End: 00-74-3652shwoehkcjuKI LULU Tejeda IVANJAMALFacility:Z2Dijtv: 58-11-5356Aglnponzl for general adult medical examination without abnormal findingsDR LULU BLANK [facility]art: 11-11-2021 End: 19-05-1373mlvxoracaaWB KIM Nikhil BLANKFacility:F0Ncyhw: 11-11-2021 End: 75-67-9064Phuabixrw for general adult medical examination without abnormal findingsDR LAWSON Nikhil SHEILAFacility:U1Hfnlw: 11-10-2021 End: 65-75-0459ofnglwevzaSHOVKPBG EBERLYFacility:H1 Procedures DateProcedureProcedure DetailPerforming ClinicianStart: 69-71-3701Jznaov-up visitFollow-upBRPERSON MEMORIAL [facility] Jono Sarmiento Comment on above:2009 Plan of Treatment DateCare ActivityDetailAuthorStart: 16-63-3228Ntxga BMI ScreeningAdult BMI ScreeningHarrison Community Hospital SystemStart: 19-09-0748Qyyssaj ScreeningTobacco ScreeningHarrison Community Hospital SystemStart: 17-46-2331Xpgrk BMI ScreeningAdult BMI ScreeningHarrison Community Hospital SystemStart: 91-11-1458Uyzkw BMI ScreeningAdult BMI ScreeningHarrison Community Hospital SystemStart: 96-62-6581Webzvtu ScreeningTobacco ScreeningHarrison Community Hospital SystemStart: 10-61-4191Xludm BMI ScreeningAdult BMI ScreeningHarrison Community Hospital SystemStart: 62-54-8717Rmsbh BMI Follow Up PlanAdult BMI Follow Up PlanHarrison Community Hospital SystemStart: 63-94-0336Ilzoq BMI Screening Adult BMI ScreeningHarrison Community Hospital SystemStart: 07-25-2025 End: 10-60-4762Dvwpg metabolic 2000 panel - Serum or PlasmaBasic Metabolic Panel Lab Routine Low 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 Expected: 07/25/2025 (Approximate), Expir es: 04/24/2026[facility] SystemComment on above:Expected: 07/25/2025 (Approximate), Expires: 04/24/2026Start: 07-25-2025 End: 28-24-3041TNK W Auto Differential panel - BloodCBC auto differential Lab Routine Low 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 Expected: 07/25/2025 (Approximate), Expires: 04/24/2026[facility] HospitalComment on above:Expected: 07/25/2025 (Approximate), Expires: 04/24/2026Start: 07-25-2025 End: 88-96-6878Yvjrcja, Free and Total, SerumInsulin, Free and Total, Serum Lab Routine Low 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 Expected: 07/25/2025 (Approximate), Expires: 04/24/2026[facility] HospitalComment on above:Expected: 07/25/2025 (Approximate), Expires: 04/24/2026Start: 07-25-2025 End: 04-61-2288Qnszexbdp specific antigen screenProstatic specific antigen screen Lab Routine Low 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 Expected: 07/25/2025 (Approximate), Expires: 04/24/2026[facility] HospitalComment on above:Expected: 07/25/2025 (Approximate), Expires: 04/24/2026Start: 07-25-2025 End: 82-04-4947Hwicusobbsrx, Total and Free, STestosterone, Total and Free, S Lab Routine Low 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 Expected: 07/25/2025 (Approximate), Expires: 04/24/2026[facility] HospitalComment on above:Expected: 07/25/2025 (Approximate), Expires: 04/24/2026Start: 07-24-2025 End: 28-82-6191Znrbpfw encounter dhafxrlxx55/14/2025 9:00 AM EST Office Visit [facility] [address] [place], [id number] Nury Potter MD [address] [place] [address] [facility] General SurgeryStart: 05-11-2025 COVID-19 Vaccine ( season)COVID-19 Vaccine ( season) [facility]: 90-48-4037Kgzihoexy vaccinationInfluenza Vaccine [facility]villetart: 05-01-2025 End: 61-54-8299PO Abdomen and Pelvis W contrast IVCT abdomen and pelvis with contrast Imaging Routine Incisional hernia, without obstruction or gangrene Expected: 05/01/2025 (Approximate), Expires: 04/24/2026[employer] Work Phone: Comment on above:Expected: 05/01/2025 (Approximate), Expires: 04/24/2026Start: 04-25-2025 End: 37-61-6482Axwkx metabolic 2000 panel - Serum or PlasmaBasic Metabolic Panel Lab Routine Insulin resistance Expected: 04/25/2025 (Approximate), Expires: [facility] HospitalComment on above:Expected: 04/25/2025 (Approximate), Expires: 01/23/2026Start: 04-25-2025 End: 03-65-4129Kzmketf, Free and Total, SerumInsulin, Free and Total, Serum Lab Routine Insulin resistance Expected: 04/25/2025 (Approximate), Expires: 01/23/2026[facility] HospitalComment on above:Expected: 04/25/2025 (Approximate), Expires: 01/23/2026Start: 04-25-2025 End: 18-70-4904Begrxekvzstl, Total and Free, STestosterone, Total and Free, S Lab Routine Low 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 Expected: 04/25/2025 (Approximate), Expires: 01/23/2026[employer] Work Phone: Comment on above:Expected: 04/25/2025 (Approximate), Expires: 01/23/2026Start: 04-24-2025 End: 07-81-8410Msormfr encounter kmqbkyllq55/15/2025 10:00 AM EDT Office Visit [facility] [address] [place] [address] Nury Potter MD [address] [place] [address] [facility] SurgeryStart: 02-10-2025 End: 88-73-6794Goeufsrltdff consultation with fuywryo1602/10/2025 10:00 AM EDT Telemedicine [facility]etic[facility] [address] [facility] [address] [place] [phone] Iris Noriega [facility] DieticiansStart: 01-23-2025 End: 62-78-3277Zhgqcha encounter sbrxivkxk22/16/2025 9:30 AM EDT Office Visit [facility] [address], [id number] Nury Potter MD [address] [place] [address] [facility] General SurgeryStart: 01-08-2025 End: 85-27-6181Zinetmashtmm consultation with ilgland8401/08/2025 9:00 AM EDT Telemedicine [facility] [address] [facility] [address] [place] [phone] Iris Noriega [facility] DieticiansStart: 12-09-2024 End: 71-67-2827Ttadxfckzhhr consultation with ehxfbwr3712/09/2024 9:00 AM EDT Telemedicine [facility] [address] [facility] [address] [place] [phone] Iris Noriega [facility] DieticiansStart: 11-11-2024 End: 35-40-6604Speqagq encounter yamqcoslm50/04/2025 4:45 PM EST Office Visit LEANDRO JIMENEZ [address] [place] [phone] Lanny Guthrie DO [address] [place] [address] LEANDRO GARCIAtart: 11-05-2024 End: 41-64-7269Vndwvgk encounter obcypbjvr41/26/2025 10:00 AM EST Office Visit [facility] [address] [place] [phone] Pedro Conte, DPM [address] [place] [address] [facility] PODIATRYStart: 10-08-2024 End: 98-58-3191Pdsbrzu encounter jqcynhzpr84/29/2025 10:45 AM EST Office Visit [facility] [address] [place] [phone] Pedro Conte, DPM [address] [place], [place] [id number] ArrivedNORESEARCH PSY[facility] PODIATRYComment on above:ArrivedStart: 98-21-6710TQMQE-19 Vaccine ( season)COVID-19 Vaccine ()[facility] SystemStart: 24-74-3907XUiQ,Tdap and Td Vaccines (1 - Tdap)DTaP,Tdap and Td Vaccines (1 - Tdap)[facility] SystemStart: 03-45-9686Vnbmp BMI Follow Up PlanAdult BMI Follow Up PlanHarrison Community Hospital SystemStart: 1989 Depression ScreeningDepression ScreeningHarrison Community Hospital SystemStart: 1989 Tobacco ScreeningTobacco ScreeningHarrison Community Hospital SystemStart: 1977 Screening for malignant neoplasm [facility]Cross[facility] End: 81-71-3423LTO W Auto Differential panel - BloodCBC auto differential Lab Routine History of sleeve gastrectomy 1 Occurrences starting 11/28/2024 until 11/28/2025[facility] Work Phone: Comment on above:1 Occurrences starting 11/28/2024 until 11/28/2025 End: 81-41-0717ING W Auto Differential panel - BloodCBC auto differential Lab Routine Low 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 1 Occurrences starting 03/16/2025 until 0 03/16/2026[facility] Work Phone: Comment on above:1 Occurrences starting 03/16/2025 until 03/16/2026 End: 36-78-9651Vnsgxfmdayzzns vitamin b-12Vitamin B12 Lab Routine History of sleeve gastrectomy 1 Occurrences starting 11/28/2024 until 11/28/2025[facility] HospitalComment on above:1 Occurrences starting 11/28/2024 until 11/28/2025 End: 47-54-9693Ndzuiyfcji A1c/Hemoglobin.total in BloodHemoglobin A1c Lab Routine History of sleeve gastrectomy 1 Occurrences starting 11/28/2024 until 11/28/2025[facility] SystemComment on above:1 Occurrences starting 11/28/2024 until 11/28/2025 End: 25-65-6274Lffgbsa, Free and Total, SerumInsulin, Free and Total, Serum Lab Routine History of sleeve gastrectomy 1 Occurrences starting 11/28/2024 until 11/28/2025[facility] HospitalComment on above:1 Occurrences starting 11/28/2024 until 11/28/2025 End: 95-86-3256Aeur [Mass/volume] in Serum or PlasmaIron Lab Routine History of sleeve gastrectomy 1 Occurrences starting 11/28/2024 until 11/28/2025[facility] HospitalComment on above:1 Occurrences starting 11/28/2024 until 11/28/2025 End: 50-70-5994Ocejm panelLiver panel Lab Routine History of sleeve gastrectomy 1 Occurrences starting 11/28/2024 until 11/28/2025[facility] HospitalComment on above:1 Occurrences starting 11/28/2024 until 11/28/2025 End: 86-31-5230Thkjcrqcrhu Hormone, intactParathyroid Hormone, intact Lab Routine History of sleeve gastrectomy 1 Occurrences starting 11/28/2024 until 11/28/2025[facility] HospitalComment on above:1 Occurrences starting 11/28/2024 until 11/28/2025 End: 33-19-9820AXI w/ RFLX to Free PSAPSA w/ RFLX to Free PSA Lab Routine Low 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 1 Occurrences starting 03/16/2025 until 03/16/2026[facility] HospitalComment on above:1 Occurrences starting 03/16/2025 until 03/16/2026 End: 49-08-5185Imdczwyxcmuq, Total and Free, STestosterone, Total and Free, S Lab Routine History of sleeve gastrectomy 1 Occurrences starting 11/28/2024 until 11/28/2025ProSelect Medical [facility] SystemComment on above:1 Occurrences starting 11/28/2024 until 11/28/2025 End: 74-27-7700Xhpfuvrnyes [Units/volume] in Serum or PlasmaTSH Lab Routine History of sleeve gastrectomy 1 Occurrences starting 11/28/2024 until 11/28/2025 ProME[facility] SystemComment on above:1 Occurrences starting 11/28/2024 until 11/28/2025 End: 11-65-2284Pohsuuy D 25 hydroxyVitamin D 25 hydroxy Lab Routine History of sleeve gastrectomy 1 Occurrences starting 11/28/2024 until 11/28/2025[facility] SystemComment on above:1 Occurrences starting 11/28/2024 until 11/28/2025 Immunizations Immunization DateImmunizationNotesCare AewczkxzTbcmvpyr41-76-8777sgiltmjwe, seasonal, injectable, preservative freeAnthony Rusher DPM Work Phone: [facility] CenterZyojwdzipt39-71-1399glqtjssfd virus vaccine, unspecified formulationIris Noriega [facility]09-21-2023 influenza virus vaccine, unspecified formulationJodi Torsten [phone]-MwbvnFulton County Health Center [phone], injectable, quadrivalent, preservative freeAnthony Rusher DPM Work Phone: [facility] CenterDyeduvtcyp73-52-6639dqizixlyk virus vaccine, unspecified formulationJodi Torsten [phone]-WcoduPromedica Fostoria Community Hospital09-28-2022 influenza, injectable, quadrivalent, preservative freeAnthony Rusher DPM Work Phone: [facility] CenterTsbvofeyfx80-91-4056TCHT-ChX-5 (COVID-19) mRNA BNT-162b2 vaxJodi Torsten [phone]-AcdtrPromedica Fostoria Community Hospital02-12-2021 SARS-CoV-2 (COVID-19) mRNA BNT-162b2 vaxJocolleen Torsten [phone]-RecilPromedica Fostoria Community Hospital07-01-2019 pneumococcal polysaccharide vaccine, 23 valentJodi Torsten [phone]-ZjzgnSamaritan North Health Centerue12-09-2009novel sbmvucfar-X5K6-67, preservative-free, injectableAnthony Rusher DPM Work Phone: [employer] Payers DatePayer CategoryPayerPolicy [id number] [id number] General HospitalBC [id number]sevelt General Hospital Managed Care - [id number]Jjyhnjz [id number] 2013Medicare1977Unknown [id number] 20.1.418977.3.57[id number] 20.1.577666.3.57[id number] 2.16.840.1.590960.3.57[id number] 2.16.840.1.003511.3.57[id number] 2.16.840.1.794795.3.57[id number] 2..840.1.272689.3.57[id number] 2.16.840.1.243451.3.57[id number] 2.840.1.923490.3.57[id number] 2.840.1.658924.3.57[id number] 2.840.1.414118.3.57[id number] 2.840.1.673238.3.57[id number] 2..840.1.277841.3.57[id number] 2.840.1.866104.3.57[id number] 2.16840.1.941145.3.57[id number] 2.840.1.990114.3.57[id number] 2.16840.1.272440.3.57[id number] 2.840.1.081093.3.57[id number] 2.16.840.1.204959.3.57[id number] 2.16.840.1.909679.3.57[id number] 2.16.840.1.192135.3.57[id number] 2.16.840.1.723289.3.579.[id number] 2.16.840.1.725800.3.57[id number] 2.16.840.1.726539.3.57[id number] 2..840.1.317650.3.57[id number] 2.16.840.1.804901.3.57[id number] 2..840.1.586065.3.57[id number] 2..840.1.388350.3.579.2.727 [id number] 1960Unknown [id number] Social History DateTypeDetailFacilityStart: 03-19-2023 End: 22-52-5813Wxletch smoking statusEx-smoker (finding)[facility] CenterueTobacco smoking statusNeverParma Community General HospitalevueStart: 02-19-2019 End: 69-36-3345Keg Assigned At BirthMalAshtabula County Medical Centertart: 69-71-4492Lgahaxk smoking status NHISNever smoked tobaccoNOMS HealthcareStart: 04-05-2023 End: 79-72-9645Rcugedj use and exposureSmokeless tobacco non-userNOMS Healthcare Start: 10-08-2024 End: 41-46-3997Fymabzshe beverage intakeEx-drinker (finding)[facility] Start: 02-19-2019 End: 68-80-2713Lcutpnr of Social functionNOMS HealthcareStart: 58-83-9412Qes assigned at [facility] hospitalNot on fileNONY HealthcareTobacco smoking status NHISTobacco smoking consumption unknownHarrison Community Hospital SystemStart: 18-10-4326SufEbhy (finding)[facility] SystemHistory of tobacco useCurrent smokerHarrison Community Hospital SystemHistory of tobacco useCigarette SmokerHarrison Community Hospital SystemStart: 01-23-2025 End: 79-51-6166Lvniisrmh beverage intakeNot AskedHarrison Community Hospital SystemStart: 93-53-3349Fpnkxex CommentSOCIALLYPOhioHealth Van Wert Hospital SystemStart: 16-37-3929Aod Assigned At [facility] Clinical Notes 11-10-2021 to 04-24-2025 Note Date & WpawGrjhNmvxozji39-17-4091 History of Present illness Narrative* Nury Potter MD - 04/24/2025 10:00 AM EDT Bariatric Surgery Progress Note Subjective The patient is a 6-year-old male who had a sleeve gastrectomy in [place] in 2009 that was complicated by bowel [...] he would likely need to return to [facility] where it was originally repaired due [...] 3 months with labs documented in this encounterSelect Medical Specialty Hospital - AkronDigital Magics Fxmfys74-56-7722 History of Present illness Narrative* DEION Lerma - 02/10/2025 10:00 AM EDT Bariatric Medical Nutrition Therapy Nutritional Assessment/Education Weight check Video Visit via Real-time Synchronous Audiovisual Provider Location: [facility] [address] [place] [phone] Patient Location: Patient's home Video Visit Consent Statement: I discussed risks, benefits, and alternatives of a real-time synchronous audiovisual consultation with the patient (and any accompanying persons) including the risks that the patient's personal health details and medical records will be discussed over real-time, synchronous, interactive video/audio/telecommunication technology, the visit will not be recorded withoutthe express consent of both the provider and the patient, and that there are some limitations compared to eiwp-iq-gfho evaluations. The patient consented to the presence of additional virtual and/or in-person participants. We elected to proceed. Rakesh Vaughn is a 49 y.o. male who presents [...] monitor weight. Start time: 958 End time: 1021 documented in this encounterSelect Medical Specialty Hospital - AkronApaja Mymichigan Medical [id number] Instructions* Patient Instructions* DEION Lerma - 02/10/2025 10:00 AM EDT Read the [facility] Bariatric Guide. If you re looking for general health and wellness resources, please visit [facility] [email or web address]. documented in this encounterSelect Medical Specialty Hospital - AkronApaja Mymichigan Medical CenterLlcygf63-89-1262 History of Present illness Narrative* Nury Potter MD - 01/23/2025 9:30 AM EDT Bariatric Surgery Progress Note Subjective The patient is a 49-year-old male who had a sleeve gastrectomy in [place] in 2009 that was complicated by bowel perforation and required extended hospital stay with multiple surgeries. He was over 500lb at the time of that surgery, and has since lost a significant amount of his weight, but has beengetting some back. 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 We checked some lab work and found that his testosterone levels are borderline low and his free andtotal insulin levels are very high, both over [...] 3 months with labs documented in this encounterUniversity Of Vermont Medical CenterQitio [id number] History of Present illness Narrative* Iris Noriega, LD - 01/08/2025 9:00 AM EDT Bariatric Medical Nutrition Therapy Nutritional Assessment/Education Session: Post-op #2 Video Visit via Real-time Synchronous Audiovisual Provider Location: [facility], [facility]PART[facility] [address] [place] [phone] Patient Location: Patient's home Video Visit Consent Statement: I discussed risks, benefits, and alternatives of a real-time synchronous audiovisual consultation with the patient (and any accompanying persons) including the risks that the patient's personal health details and medical records will be discussed over real-time, synchronous, interactive video/audio/telecommunication technology, the visit will not be recorded withoutthe express consent of both the provider and the patient, and that there are some limitations compared to zxgj-nr-qwdw evaluations. The patient consented to the presence of additional virtual and/or in-person participants. We elected to proceed. Rakesh Vaughn is a 49 y.o. male who presents [...] per day. He tends to only eat 3times per day. He is working on reducing her starch intake. Diet Recall: 4:30 AM Breakfast 11 AM Snack Lunch 12:30 PM Snack Dinner 7 PM Snack Protein shake Salad with veggies, ham and turkey with regular kazakh dressing with a cheeseburger lucas (no bun), [...] no height or weight on file to calculateBMI. Nutrition Intervention: Nutrition education Discussed diet and [...] iron daily or 1 vitamin daily. 2) 4077-4318 mg calcium in divided doses (2x/day) for sleeve and gastric bypass, 5906-6560 mg in divided doses (3x/day) for SADS [...] 910 End time: 939 documented in this encounterSelect Medical Specialty Hospital - AkronSixty Second Parent05-01-2025 Instructions* Patient Instructions* DEION Lerma - 01/08/2025 9:00 AM EDT Read the [facility] Bariatric Guide. If you re looking for general health and wellness resources, please visit [facility] [place] [email or web address]. documented in this encounterSelect Medical Specialty Hospital - AkronDigital Magics [id number] History of Present illness Narrative* DEION Lerma - 12/09/2024 9:00 AM EDT Bariatric Medical Nutrition Therapy Nutritional Assessment/Education Session: Post-op Rakesh Vaughn is a 49 y.o. male who presents for medical nutritional therapy after weight loss surgery. Video Visit via Real-time Synchronous Audiovisual Provider Location: [facility], [facility] [address] [place] [phone] Patient Location: Waiting room in [place] (for father's surgery) Video Visit Consent Statement: I discussed risks, benefits, and alternatives of a real-time synchronous audiovisual consultation with the patient (and any accompanying persons) including the risks that the patient's personal health details and medical records will be discussed over real-time, synchronous, interactive video/audio/telecommunication technology, the visit will not be recorded withoutthe express consent of both the provider and the patient, and that there are some limitations compared to fuuh-sh-cmwj evaluations. The patient consented to the presence of additional virtual and/or in-person participants. We elected to proceed. Barrier learning assessment: Yes Weight: unable to get one Rakesh had a sleeve gastrectomy in [place] in 2009. He received minimal nutrition information [...] iron daily or 1 vitamin daily. 2) 1575-3615 mg calcium in divided doses (2x/day) for sleeve and gastric bypass, 0791-7698 mg in divided doses (3x/day) for SADS [...] all discussed has been provided within the [facility] Bariatric Guide. My contact name and number provided if questions or concerns arise. Nutrition Monitoring: To monitor weight to show progress. Start time: 0904 End time: 0950 documented in this encounterMorrow County Hospital04-01-2025 Instructions* Patient Instructions* DEION eLrma - 12/09/2024 9:00 AM EDT Read the [facility] Bariatric Guide. If you re looking for general health and wellness resources, please visit [facility] [email or web address]. documented in this encounterMorrow County Hospital2025 History of Present illness Narrative* Nury Potter MD - 11/28/2024 9:30 AM EDT [facility] GENERAL SURGERY [facility] [facility] [phone] [facility] SURGICAL WEIGHT LOSS PROGRAM INITIAL EVALUATION Patient: Rakesh Vaughn Service Date: 11/28/2024 Chief complaint: Wants help with weight loss 15 years after sleeve gastrectomy in [place] The patient is a 49 y.o. year old male with morbid obesity, who stands Height: 179.1 cm (5' 10.5 ) tall with a weight of Weight: (!) 176.9 kg (390 lb) , resulting in a BMI of Body mass index is 55.17kg/m .. The patient suffers from comorbidities as a result of morbid obesity, including: Knee pain,Back pain, GERD, and Sleep Apnea. He has suffered from obesity for many years, with their heaviest weight being over 500 lbs. The patient had a sleeve gastrectomy in [place] in 2009. Two days after surgery he began having fever and chills and after workup was found to have an intra- abdominal abscess. He was seen at the [facility] by Crystal Parsons MD and underwent an exploratory laparotomy with washout of pelvic abscess, at the time his abdomen was left open and closed after a few days. He had multiple drains in place at the time. Following that he developed a large incisional ventral hernia that was closed withmesh and concurrent panniculectomy. The patient did a decent job of keeping the weight off until he broke his leg several years ago. Hehas been putting weight back on and would like to have a recent on his diet to try to lose more weight. In the past he has been treated for low vitamin levels and low testosterone levels with injections.The testosterone injections did cause some side effects. We talked about checking testosterone level and potentially starting a testosterone cream. He has also been on Adipex in the past for weight loss, however it gave him horrible headaches. He is hesitant to try any GLP 1 medications due to the side effects. We discussed checking hemoglobin A1c and insulin levels and consider metformin pendingthe results. He has joined a gym and is mostly walking and doing light cardio. We discussed adding in dedicated resistance training at least 2 days a week based on the recommendations from the [place]. He is not eager to alegre into another surgery given his past experience. Medical History: Past Medical History: Diagnosis Date Autonomic dysfunction Depression GERD (gastroesophageal reflux disease) Hypercholesteremia Lymphedema RODRIGUEZ (nonalcoholic steatohepatitis) KWAN (obstructive sleep apnea) Surgical History: Past Surgical History: Procedure Laterality Date EXPLORATORY LAPAROTOMY intraabdominal abscess/bowel perforation following sleeve in [place]; open abdomen LAPAROSCOPY GASTRECTOMY PARTIAL / TOTAL 2009 Sleeve in [place] VENTRAL HERNIA REPAIR 2012 Family History: Family [...] time each day at the same time. (Patientnot taking: Reported on 10/08/2024), Disp: , Rfl: metroNIDAZOLE (Flagyl) 500 MG tablet, Take 500 mg by mouth in the morning and 500 mg in the eveningand 500 mg before bedtime. 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 [x] No [] Yes Do you have [...] turgor normal, no rashes or lesions Neurologic: testing shaking shipping intact, normal strength. Alert and oriented. Follows [...] to ensure the accuracy of this automated transmission maintenance supervisor, some errors in transmission maintenance supervisor may have occurred. documented in this encounterUniversity Of Vermont Medical CenterQitio [id number] History of Present illness Narrative* Pedro Conte DPM - 11/05/2024 10:00 AM EST Images from the original note were not included. Subjective Patient ID: Rakesh Vaughn is a 49 y.o. male who presents for Scan Orthotics (Rakesh Vaughn is a 49 y.o. male who presents [...] Allergic rhinitis Autonomic dysfunction COVID-19 03/2020 Depression ([facility]) ETD (Eustachian tube dysfunction), bilateral H/O gastric [...] time each day at the same time. (Patientnot taking: Reported on 10/08/2024), Disp: , Rfl: metroNIDAZOLE (Flagyl) 500 MG tablet, Take 500 mg by mouth in the morning and 500 mg in the eveningand 500 mg before bedtime. (Patient not taking: [...] time each day at the same time., Disp:, Rfl: phentermine (Adipex-P) 37.5 MG tablet, Take [...] also has a limb length discrepancy that wouldbenefit from custom lift built into the orthotic device. Patient was casted for orthotics utilizingthree-dimensional scanner technology with the foot held in neutral suspension technique with slightplantarflexion of the 1st ray. Orthotic prescription was [...] understanding. Pedro Conte DPM documented in this encounterNOKindred [id number] Telephone encounter Note* Telephone Encounter - Donald Monson - 10/21/2024 4:48 PM EST Fpqe-ge-dnuj is scheduled for October 28 at 4:45 pm. They will call our office for the meeting [facility] [id number] Miscellaneous Notes* Telephone Encounter - Donald Monson - 10/21/2024 4:48 PM EST Rhba-rq-hhpb is scheduled for October 28 at 4:45 pm. They will call our office for the meeting * Telephone Encounter - Emily Kaur MA - 10/08/2024 12:42 PM EST Pt was in this morning, Dr. Conte gave him the orthotic form. Rakesh called his insurance and they stated anything over $750 needs precert, and that they cover 1 pair of custom orthotics every 2 calendar years. Told him we would call him with info of est. And if precert was approved. Thanks documented in this encounterCrossroads Regional Medical [id number] Telephone encounter Note* Telephone Encounter - Emily Kaur MA - 10/08/2024 12:42 PM EST Pt was in this morning, Dr. Conte gave him the orthotic form. Rakesh called his insurance and they stated anything over $750 needs precert, and that they cover 1 pair of custom orthotics every 2 calendar years. Told him we would call him with info of est. And if precert was approved. Thanks [facility] [id number] History of Present illness Narrative* Pedro Conte, DPM - 10/08/2024 10:45 AM EST Images from the original note were not included. Subjective Patient ID: Rakesh Vaughn is a 49 y.o. 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 Pt states his [...] a month and has noted a lot ofhip and back pain. He also notes leg [...] time each day at the same time., Disp:, Rfl: tiZANidine (Zanaflex) 2 MG capsule, Take by mouth as needed at bedtime for muscle spasms, Disp: , Rfl: Meclizine HCl 25 MG chewable tablet, Chew 1 tablet 1 (one) time each day at the same time. (Patientnot taking: Reported on 10/08/2024), Disp: , Rfl: metroNIDAZOLE (Flagyl) 500 MG tablet, Take 500 mg by mouth in the morning and 500 mg in the eveningand 500 mg before bedtime. (Patient not taking: [...] understanding. Pedro Conte DPM documented in this encounterCrossroads Regional Medical [id number] Evaluation + Plan note Diagnostic Tests Pending * Testosterone Level Total 08/23/23 [facility]03-03-2022 NotePROCEDURE: XR HAND LT MIN 3V COMPARISON: None. HISTORY: Contusion of [...] Electronically authenticated by: KELLIE SMALLS Date: 2021-11-10 13:16[facility] Future Appointments Appointment Date:04/23/2023 11:00:00 AM Scheduled Provider:Effie Muhammad [facility]* Diagnosis Valgus deformity, not elsewhere classified, right ankle- Primary Valgus deformity, not elsewhere classified, left ankle Instability of left foot joint Instability of right foot joint Leg length discrepancy Unequal leg length (acquired) documented in this encounter [facility] CenterEvaluation note* Diagnosis Valgus deformity, not elsewhere classified, right ankle- Primary Valgus deformity, not elsewhere classified, left ankle Instability of left foot joint Instability of right foot joint Leg length discrepancy Unequal leg length (acquired) Posterior tibial tendon dysfunction, bilateral documented in this encounter [facility] HealthcareEvaluation [facility]* Diagnosis History of sleeve gastrectomy- Primary Morbid obesity with BMI of 50.0-59.9, adult ([facility]) documented in this encounter [facility] SystemEvaluation [facility]* Diagnosis Dietary counseling and surveillance- Primary Morbid obesity ([facility]) Morbid obesity History of sleeve gastrectomy documented in this encounter [facility] SystemEvaluation [facility]* Diagnosis Dietary counseling and surveillance- Primary Morbid obesity ([facility]) Morbid obesity History of sleeve gastrectomy documented in this encounter [facility] SystemEvaluation [facility]* Diagnosis Insulin resistance- Primary Other abnormal glucose Morbid obesity ([facility]) Morbid obesity Low 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 documented in this encounter [facility] SystemEvaluation [facility]* Diagnosis Dietary counseling and surveillance- Primary Morbid obesity (CMS-HCC) Morbid obesity documented in this encounter [facility] SystemEvaluation note* Diagnosis Low 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 documented in this encounter [facility] SystemEvaluation note* Diagnosis Onset Date Resolution Status Admit Date Pre-employment examination acuteJuly 2024 10:52am [facility] Work Phone: Evaluation note* Diagnosis Insulin resistance- Primary Other abnormal glucose Incisional hernia, without obstruction or gangrene Low 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 Morbid obesity with BMI of 50.0-59.9, adult (CMS-HCC) documented in this encounter [facility]Evaluation [facility]* Diagnosis Low 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 documented in this encounter [facility] HospitalHospital course Narrative No data available for this section [facility] Discharge instructions No data available for this section [facility] HospitalInstructionsNot on filedocumented in this encounter [facility] SystemInstructionsNot on filedocumented in this encounter [facility] SystemInstructionsNot on filedocumented in this encounter [facility] SystemInstructionsNot on filedocumented in this encounter [facility] SystemInstructionsNot on filedocumented in this encounter [facility] SystemProgress note No data available for this section [facility] HospitalReason for referral (narrative)No reason for referral information availableBlanchard Valley Health System [facility] Work Phone: Summary Purpose Family History [...] Reason for Visit Chief Complaint Admit Date 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 DATE CREATED AUTHOR AUTHOR'S ORGANIZ ATION 02/11/2025 [facility] DATE CREATED AUTHOR AUTHOR'S ORGANIZ ATION 04/26/2025 [facility] DATE CREATED AUTHOR AUTHOR'S ORGANIZ ATION 06/20/2025 [facility] DATE CREATED AUTHOR AUTHOR'S ORGANIZ ATION 07/01/2025 [facility] Patient Care team informatio n (unrecognized section and content) Team MemberRelationshipSpecialtyStart DateEnd Date Lulu Blank MD [address] [place] [address] [facility] - [facility]04/05/23Team MemberRelationshipSpecialtyStart DateEnd Date Lulu Blank MD [address] [place] [address] PCP - Generalmi Medicine04/05/23Team MemberRelationshipSpecialtyStart DateEnd Date Lulu Blank MD [address] [place] [address] PCP - GeneralFamily Medicine04/05/23Team MemberRelationshipSpecialtyStart DateEnd Date Lulu Blank MD [address] [place] [address] PCP - GeneralFamily Medicine04/05/23am MemberRelationshipSpecialtyStart DateEnd Date Lulu Blank MD [address] [place] [address] PCP - GeneralFamily Medicine04/05/23am MemberRelationshipSpecialtyStart DateEnd Date Effie Sarmiento, ADMINISTRATIVE OFFICE SPECIALIST-LAWN SERVICE WORKER [address] [place] [address] PCP - GeneralNurse Practitioner3Te MemberRelationshipSpecialtyStart Date End Date Effie Sarmiento, ADMINISTRATIVE OFFICE SPECIALIST-LAWN SERVICE WORKER [address] [place] [address] PCP - GeneralNurse Practitioner11/28/24Te MemberRelationshipSpecialtyStart Date End Date Effie Sarmiento, ADMINISTRATIVE OFFICE SPECIALIST-LAWN SERVICE WORKER [address] [place] [address] PCP - GeneralNurse Practitioner11/28/24Team MemberRelationshipSpecialtyStart Date End Date Effie Sarmiento, ADMINISTRATIVE OFFICE SPECIALIST-LAWN SERVICE WORKER [address] [place] [address] PCP - GeneralNurse Practitioner3Team MemberRelationshipSpecialtyStart Date End Date Effie Sarmiento, ADMINISTRATIVE OFFICE SPECIALIST-LAWN SERVICE WORKER [address] [place] [address] PCP - GeneralNurse Practitioner11/28/24Team MemberRelationshipSpecialtyStart Date End Date Effie Sarmiento, ADMINISTRATIVE OFFICE SPECIALIST-LAWN SERVICE WORKER [address] [place], [place] [address] PCP - GeneralNurse Practitioner11/28/24 Team Status: Active Member Role Status Dates Effie Sarmiento , SHIRT CLOSER-C Primary Care Provider Active Team Status: Inactive Member Role Status Dates Jose Carlos Whitt DO Attending Provider Active Sta rt: March 19, 2025 End: March 19, 2025Jocolleen Sarmiento , SHIRT CLOSER-CPrimary Care ProviderActiveStart: March 19, 2025 End: March 19, 2025Team MemberRelationshipSpecialtyStart DateEnd Date Effie Sarmiento, ADMINISTRATIVE OFFICE SPECIALIST-LAWN SERVICE WORKER [address] [place] [address] PCP - GeneralNurse Practitioner11/28/24Team MemberRelationshipSpecialtyStart Date End Date Effie Sarmiento, ADMINISTRATIVE OFFICE SPECIALIST-LAWN SERVICE WORKER [address] [place] [address] PCP - GeneralNurse Practitioner11/28/24Team MemberRelationshipSpecialtyStart Date End Date Effie Sarmiento, ADMINISTRATIVE OFFICE SPECIALIST-LAWN SERVICE WORKER [address] [place], [place] [address] PCP - GeneralNurse Practitioner11/28/24 Reason for Visit (unrecogniz ed section and content) ReasonCommentsFoot Uxbygohtp35 yo 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 Pt states his current ones broke, and is wanting to get new ones. Pt has had these orthotics for about 5 years. Pt did not bring orthotics with him today. SS: 10.5WReasonOnset DateCommentsFoot Wujrcsfyc28/29/2025ReasonComments Scan OrthoticsRakesh Vaughn is a 49 y.o. male who presents to be scanned Orthotics SS: 10.5WReasonCommentsNew PatientNeed MNT 1 of 3ReasonComments Nutrition CounselingSpecialtyDiagnoses / ProceduresReferred By ContactReferred To ContactNutrition Diagnoses [place] [address] [place] [address] Phone: tel: fax: Referral IDStatusReasonStart DateExpiration DateVisits RequestedVisits [id number] Specialty Services Required [id number] CounselingFollow-upSpecialty Diagnoses / ProceduresReferred By ContactReferred To ContactNutrition Diagnoses History of sleeve gastrectomy Nury Potter MD [address] [place] [address] Phone: tel: fax: Referral IDStatusReasonStart DateExpiration DateVisits RequestedVisits [id number] Specialty Services Required [id number]P PATIENTgo over labs/1st refreshor visit with dititian doneReasonCommentsESTABLISHED PATIENTgo over labs/3 refresher visits with dietitian doneReasonOnset DateCommentsMed Refill 06/05/2025ReasonCommentsMed Change Request Goals (unrecognized section and content) Goals may [...] BE BASED ON THE PRIMARY CLINICAL RECORDS. [employer] [facility]. provides no warranty or guarantee of the accuracy or completeness of information in this document.
--- OUTSIDE RECORDS SUMMARY | 2025-07-03 09:12 | XMS_ITS | Clinical Summary ---
Author Organization FedBid tem Address [id number] [address] [place] [address] Care Team Providers Care Commissary Assistant Name Role Phone Alexia Mancilla APRN-SOCIAL MEDIA SENIOR ASSOCIATE Primary Care Provider [phone] Allergies No known active allergies Medications MedicationSigDispense QuantityRefillsLast FilledStart DateEnd DateStatus cranberry extract (CRANBERRY JUICE POWDER) 425 mg capsule Take by mouth.Active omega-3 fatty acids-fish oil 300-1,000 mg capsule Take by mouth in the morning.Active ipratropium (ATROVENT) 21 mcg (0.03 %) nasal spray Administer 1 spray into each nostril as needed.Active loratadine (CLARITIN) 10 mg tablet Take 1 tablet (10 mg total) by mouth as needed.Active meclizine (ANTIVERT) 25 mg tablet Chew 1 tablet (25 mg total) and swallow 3 (three) times a day as needed.Active omeprazole (PriLOSEC) 40 mg capsule Take 1 capsule (40 mg total) by mouth as needed.Active PARoxetine (PAXIL) 10 mg tablet Take 1 tablet (10 mg total) by mouth.Active tiZANidine (ZANAFLEX) 4 mg tablet Take 1 tablet (4 mg total) by mouth nightly.5Active cyanocobalamin, vitamin B-12, (VITAMIN B-12 ORAL) Vitamin B-12Active buPROPion SR (WELLBUTRIN SR) 150 mg 12 hr tablet Take 1 tablet (150 mg total) by mouth in the morning and 1 tablet (150 mg total) before bedtime.Active celecoxib (CeleBREX) 200 mg capsule Take 1 capsule (200 mg total) by mouth in the morning.5Active TURMERIC ORAL Take by mouth.Active ASHWAGANDHA EXTRACT ORAL Take by mouth.Active metFORMIN (FORTAMET) 500 MG (OSM) 24 hr tablet TAKE 3 TABLETS (1,500 MG TOTAL) BY MOUTH DAILY WITH BREAKFAST 270 tablet 5Active testosterone (ANDROGEL) 20.25 mg/1.25 gram (1.62 %) gel in metered-dose pump Indications:Low 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Place 3 Act (60.75 mg total) on the skin in the morning. 75 g 5Active testosterone (ANDROGEL) 20.25 mg/1.25 gram (1.62 %) gel in metered-dose pump Indications:Low 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Place 3 Act (60.75 mg total) on the skin in the morning. 75 g 5006/05/2025Discontinued(Reorder) metFORMIN (FORTAMET) 500 MG (OSM) 24 hr tablet Take 3 tablets (1,500 mg total) by mouth daily with breakfast. 270 tablet Discontinued Encounters DateTypeDepartmentCare LleyLbbfghdgivn32/26/2025Refill [facility] [address] [place] [address] Nury Quinteros MD Low 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05/14/2025Orders Only [facility]-B[facility] [address] [phone] Ref Prov, Not In System 04/24/2025 10:00 AM EDTOffice Visit [facility] [address] [place] [address] Nury Quinteros MD Insulin resistance (Primary Dx); Incisional hernia, without obstruction or gangrene; Low 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; Morbid obesity with BMI of 50.0-59.9, adult ([facility])04/24/2025Refill [facility] [address] [place] [address] Nury Quinteros MD 04/24/20255257Tpkfyw70/14/2025Orders Only [facility] [address] [facility] [address] [place] [phone] Ref Prov, Not In System 04/02/2025Orders Only [facility] [address] [facility] [address] [place] [phone] Ref Prov, Not In System from Last 3 Months Family History Medical HistoryRelationNameCommentsHeart failureFatherDiabetesMaternal GrandfatherCancerSisterCervical cancerSisterRelationNameStatusCommentsFather AliveMaternal GrandfatherMotherAliveSisterDeceased Social History Tobacco UseTypesPacks/DayYears UsedDateSmoking Tobacco: FormerCigarettes Smokeless Tobacco: Never Tobacco Cessation:Counseling Given: Not Answered Alcohol UseStandard Drinks/WeekCommentsNot Asked0 (1 standard drink = 0.6 oz pure alcohol)SOCIALLYChildcareAnswerDate SxdedprwQnnfrpntaYwkkleu31/12/2019 EmploymentAnswerDate EglgqjhfQxjqziffplAsiopua51/12/2019Sex and Gender InformationValueDate RecordedSex Assigned at BirthNot on fileLegal SexMale 04/15/2015 12:09 PM EDTGender IdentityNot on fileSexual OrientationNot on file Last Filed Vital Signs Vital SignReadingTime TakenCommentsBlood Cgpqhrip456/9801801/23/2025 9:34 AM EDT Pulse--Temperature--Respiratory Rate--Oxygen Saturation--Inhaled Oxygen Concentration--Lcrfcv945.3 kg (384 lb 3.2 oz)04/24/2025 9:55 AM ITFNqylga784.3 cm (5' 9 )04/24/2025 9:55 AM EDTBody Mass Index56.7404/24/2025 9:55 AM EDT Plan of Treatment DateTypeDepartmentCare Team (Latest Contact Info)Qcxfurfqoph56/14/2025 9:00 AM ESTOffice Visit [facility] [address] [place] [phone] Nury Quinteros MD [address] [place] [address] Health MaintenanceDue DateLast DoneCommentsDepression Knkfqmlkn63/12/1989 DTaP,Tdap and Td Vaccines (1 - Tdap)1996COVID-19 Vaccine (3 - 2024- season)503/01/2021, 10/22/2020Influenza Pjwglbm94/, 05/31/2023, 06/07/2022, Additional history existsAdult BMI Follow Up Plan /dult BMI Ishglrylk11/Tobacco Screening Medical Devices Not on file Procedures Procedure NamePriorityDate/TimeAssociated DiagnosisCommentsCT ABDOMEN AND PELVIS W XKCNTncvlgz98/04/2025 8:24 AM EDTMULTIPLE RGZKKdiyxae35/14/2025 9:35 AM EDT MULTIPLE RQABWekiyhx19/14/2025 9:03 AM EDTMULTIPLE VWQILwtasoh54/24/2025 3:07 PM EDTMULTIPLE WIBJYvqqoun69/24/2025 2:58 PM EDTfrom Last 3 Months Results * CT abdomen and pelvis with contrast (05/14/2025 8:24 AM EDT)Anatomical Region LateralityModalityBody, Abdomen, Body CoveraN/AComputed Tomography Narrative Authorizing ProviderResult TypeResult StatusNot In System Ref ProvIMG CT ORDERABLESFinal Result * Multiple labs (04/23/2025 9:35 AM EDT) Only the most recent of4 resultswithin the time period is included. Narrative Authorizing ProviderResult TypeResult StatusNot In System Ref ProvPR IMAGING Final ResultPerforming OrganizationAddressCity/State/ZIP CodePhone Number MANUALLY TRANSCRIBED RESULTS from Last 3 Months Insurance Care Teams Team MemberRelationshipSpecialtyStart DateEnd Date Alexia Mancilla, COLLECTION ADMINISTRATOR-SOCIAL MEDIA SENIOR ASSOCIATE [address] [place] [address] PCP - GeneralNurse Practitioner11/28/24
--- OUTSIDE RECORDS SUMMARY | 2025-07-03 09:12 | XMS_ITS | Patient Health Record ---
Author Organization [facility] Address [address] [place] [address] Care Team Providers Care Heating And Air Conditioning Mechanic Name Role Phone Jose Romero Unavailable [phone] Allergies No Known Allergies Reason For Referral No Information Medications Medication SIG (Take, Route, Frequency, Duration) Notes Start Date End Date Status Vitamin D3 UnknownVitamin B-12Unknownvitamin EUnknown Social History Tobacco Use: Social History Observation Description Date Details (start date - stop date) Never Smoker NA - NA Smoking History Question Answer Notes Smoking Status NonSmoker Alcohol Screening Question Answer Notes Did you have a drink containging alcohol in the last year? 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) MxsxypovntfylfeJgcjlju18872756Qmsej intervertebral disc degeneration, lumbosacral region (M51.37)OornutvbfioladwUuslxcy460070299Muqqmb spondylosis (M47.816)Activeconfirmed Plan Of Treatment No Information Insurance Providers Payer Name Payer Address Payer Phone Subscriber Number Group Number Insured Name Patient Relationship to Insured Coverage Start Date Coverage End Date DAR[employer] BCBS [address] [place] [address] [id number] RAKESH PIÑA Self - patient is the insured Medical (General) History Medical History History ICD Code Sleep apnea CPAP Machine:Do you use the CPAP machine? YesSurgical History Surgery Date(Month/Year) Bariatric 2010
--- OUTSIDE RECORDS SUMMARY | 2025-07-03 09:12 | XMS_ITS | Clinical Summary ---
Author Organization [facility] Address [address] [place] [address] Care Team Providers Care Lock Assembler Name Role Phone Lisseth Blank MD Primary Care Provider [phone] Allergies No known active allergies Medications MedicationSigDispense QuantityRefillsLast FilledStart DateEnd DateStatus ibuprofen (MOTRIN) 800 mg tablet Take 800 mg by mouth every 6 hours as needed.Active buPROPion SR (WELLBUTRIN SR) 150 mg 12 hr tablet Take 150 mg by mouth once daily.Active MULTIVIT &MINERALS/FERROUS FUM (MULTI VITAMIN ORAL) Take 1 tablet by mouth once daily.Active hypromellose (GONAK) 2.5 % ophthalmic solution Use 1 Drop in both eyes as needed.Active Active Problems ProblemNoted DateDiagnosed DateChoroidal folds - Left Eye08/21/2014Open wound anterior abdominal wall09/29/2010Morbid httlwve7409/29/2010 Family History Medical HistoryRelationCommentsHeartFatherCataractMaternal GrandmotherCancer SisterRelationStatusCommentsFatherMaternal GrandmotherSister Social History Tobacco UseTypesPacks/DayYears UsedDateSmoking Tobacco: FormerCigarettes1.515 06/21/1995 - 06/21/2010Smokeless Tobacco: FormerAlcohol UseStandard Drinks/Week CommentsYes0 (1 standard drink = 0.6 oz pure alcohol)2 o2 three beers every other weekendSex and Gender InformationValueDate RecordedSex Assigned at Not on fileLegal CjpOvjq20/02/2012 8:32 AM ESTGender IdentityNot on fileSexual OrientationNot on file Last Filed Vital Signs Vital SignReadingTime TakenCommentsBlood Isidszda869/5601/ 1:15 PM EST Kgojt4399 1:15 PM WXKTwircbwevmc53.4 ??C (97.6 ??F)10/06/2014 11:49 AM ESTRespiratory Uofp761310/06/2014 1:15 PM ESTOxygen Velplwnvap50%10/06/2014 1:15 PM ESTInhaled Oxygen Concentration--Hxqpbr377.1 kg (397 lb)09/23/2014 10:11 AM GJMEbabuc159.3 cm (5' 9 )09/23/2014 10:11 AM ESTBody Mass Index58.63009/23/2014 10:11 AM EST Plan of Treatment Health MaintenanceDue DateLast DoneCommentsAnxiety Rmmubvjpz89/12/1995Depression Dqecuzljw95/12/1995HIV Txxodgdan93/12/1995Hepatitis C Nveansvpb32/12/1995 DTaP,Tdap,Td Vaccine (1 - Tdap)1996Hepatitis B Vaccine (1 of 3 - 19+ 3- dose series)1996Lipid Xgetlzmzr44/12/2012CT Jacumymzfkxw51/12/2022 Cologuard (FIT-DNA)6363Qroddvphdae02/12/2022Colorectal Cancer Screening 2Diabetes Xgxpgabzv00/, 11/24/2012, 11/23/2012, Additional history existsFecal Occult Blood03/21/20227131Txxogjafslrop98/12/2022 Covid-19 Vaccine ()05/11/2025Influenza Vaccine (#1)2025 Medical Devices ImplantedTypeAreaManufacturerDevice IdentifierShelf Expiration DateModel / Serial / LotMesh Srg Parietex 12cm 12cm - [id number] Implanted:Qty: 1 [facility]20/2012 [facility]/A: AbdomenCOVIDIEN USAR 05/10/[id number] / / [id number]:Parietex optimized composite mesh 12cmMesh Srg Surgipro 14x9in Niels - [id number] Implanted:Qty: 1 on 11/20/2012 at [facility] 04/09/[id number] / / [id number]:surgipro monofilament polypropylene mesh Procedures Procedure NamePriorityDate/TimeAssociated DiagnosisCommentsBASIC METABOLIC PANEL Tswnvsu8811/26/2012 5:38 AM EDT from Last 3 Months or Most Recently Relevant to Health Maintenance Results * (ABNORMAL) BASIC METABOLIC PNL (11/26/2012 5:38 AM EDT)ComponentValueRef Range Test MethodAnalysis TimePerformed AtPathologist LvhzeqquxRdbvtdh0865 - 100 mg/dLOHIOHEALTH [facility] LABORATORYBUN7(L)10 - 25 mg/dLOHIOHEALTH [facility] LABORATORYCreatinine0.740.70 - 1.40 mg/dLOHIOHEALTH [facility] Eckfer209544 - 146 mmol/LCREGENCY HOSPITAL COMPANY LABORATORYPotassium3.4(L)3.5 - 5.0 mmol/LCST. JOHN OF GOD [facility]ITAL [facility] HVBVPFEOXIJgqroubs20(L)98 - 110 mmol/L [facility] CZVQFLDJOOPU822(H)23 - 32 mmol/LCST. JOHN OF GOD [facility]PITAL MAIN LABORATORYAnion Gap90 - 15 mmol/LCREGENCY HOSPITAL COMPANY LABORATORYCalcium8.68.5 - 10.5 mg/dLOHIOHEALTH PICKERINGTON [facility] LABORATORYSpecimen (Source)Anatomical Location / LateralityCollection Method / VolumeCollection TimeReceived Time Blood specimen (specimen)BLOOD SPECIMEN / Cojafxs6411/26/2012 5:38 AM EDT 11/26/2012 5:39 AM EDT Narrative Authorizing ProviderResult TypeResult StatusStevkaushal See MDLABORATORYFinal ResultPerforming OrganizationAddressCity/State/ZIP CodePhone Number [facility] [address] [place] [address] from Last 3 Months or Most Recently Relevant to Health Maintenance Insurance * Guarantor: Milton Vaughn TypeRelation to PatientDate of BirthPhone Billing AddressSelf [id number] [address] [place] [address] Care Teams Team MemberRelationshipSpecialtyStart DateEnd Date Lisseth Blank MD [address] [place] [address] [facility] - Ruqpauo39/22/10
--- NOTE | 2025-07-03 09:34 | XR_ITS ---
The [address] [address] Patient Name: RAKESH PIÑA MRN: [id number] date: 1975 Sex: M Assigned Patient Location: [facility] Current Patient Location: [facility] Accession/Order Number: [id number] Exam Date: 07/03/2025 09:37 Report Date: 07/03/2025 10:34 At the request of: EFFIE SARMIENTO Procedure: XR ribs BI 3V CLINICAL HISTORY: chest and rib pain since fall 6 days ago PA AND LATERAL CHEST: COMPARISON: 03/16/2019 Evaluation is slightly limited by body habitus. There is no focal parenchymal consolidation, effusion or pneumothorax. The cardiac, hilar and mediastinal silhouettes are within normal limits. There is no vascular congestion. There is slight dextroscoliotic curvature and endplate spurring with possible DISH. XR/XR chest 2V IMPRESSION: NO ACUTE CARDIOPULMONARY ABNORMALITY. BILATERAL RIBS - 3 views each COMPARISON: 03/16/2019 AP and both oblique views were obtained on both sides. Evaluation is slightly limited by body habitus. No definite acute displaced rib fractures or bony destruction are seen. There is degenerative change at both shoulders. No soft tissue abnormalities are noted. IMPRESSION: NO OBVIOUS ACUTE RIB INJURY. Impression dictated by: Amanda Garcia M.D. 07/03/2025 10:34 AM Dictation Location: [place] [address] Electronically authenticated by: [id number] Y Date: 07/03/2025 10:34
--- NOTE | 2025-07-03 09:35 | XR_ITS ---
The [address] [address] Patient Name: RAKESH PIÑA MRN: [id number] date: 1975 Sex: M Assigned Patient Location: [facility] Current Patient Location: [facility] Accession/Order Number: [id number] Exam Date: 07/03/2025 09:37 Report Date: 07/03/2025 10:34 At the request of: EFFIE SARMIENTO Procedure: XR ribs BI 3V CLINICAL HISTORY: chest and rib pain since fall 6 days ago PA AND LATERAL CHEST: COMPARISON: 03/16/2019 Evaluation is slightly limited by body habitus. There is no focal parenchymal consolidation, effusion or pneumothorax. The cardiac, hilar and mediastinal silhouettes are within normal limits. There is no vascular congestion. There is slight dextroscoliotic curvature and endplate spurring with possible DISH. XR/XR ribs BI 3V IMPRESSION: NO ACUTE CARDIOPULMONARY ABNORMALITY. BILATERAL RIBS - 3 views each COMPARISON: 03/16/2019 AP and both oblique views were obtained on both sides. Evaluation is slightly limited by body habitus. No definite acute displaced rib fractures or bony destruction are seen. There is degenerative change at both shoulders. No soft tissue abnormalities are noted. IMPRESSION: NO OBVIOUS ACUTE RIB INJURY. Impression dictated by: Amanda Garcia M.D. 07/03/2025 10:34 AM Dictation Location: [place] [address] Electronically authenticated by: [id number] Y Date: 07/03/2025 10:34
== END 2025-07-03 09:04 | disposition home or self-care (01) ==
PROVIDERS: PCP Nurse Practitioner; Visit Provider Nurse Practitioner
DX: R07.89 Other chest pain (principal); W19.XXXA Unspecified fall, initial encounter
CPT/HCPCS: 71046; 71110

== ENCOUNTER 2025-07-08 09:18 | Outpatient (OUT) | payer OTHER, BC, SELFPAY ==
--- OUTSIDE RECORDS SUMMARY | 2025-06-30 23:59 | XMS_ITS | Continuity of Care Document ---
Author Organization [facility] Address [address] [place] [address] Care Team Providers Care Automobile Service Station Manager Name Role Phone Alexia Mancilla Primary Care Physician Encounter FT_AMBFIN [id number] Date(s): 06/30/25 - 06/30/25 [facility] [address] [place] [phone]- Encounter Diagnosis Morbid (severe) obesity due to excess calories(Discharge Diagnosis) - 06/30/25 Body mass index [BMI] 45.0-49.9, adult(Discharge Diagnosis) - 06/30/25 Low back pain(Discharge Diagnosis) - 06/30/25 Body mass index [BMI] 45.0-49.9, adult(Discharge Diagnosis) - 06/30/25 Class 3 severe obesity due to excess calories with body mass index (BMI) of 45.0 to 49.9 in adult(Discharge Diagnosis) - 06/30/25 Chest pain(Discharge Diagnosis) - 06/30/25 Discharge Disposition: Home (Routine DC) Attending Physician: Alexia Muhammad Encounter Type: Clinic Allergies, Adverse Reactions, Alerts No Known Allergies Assessment and Plan Future Appointments Appointment Date:07/28/2025 01:00:00 PM Scheduled Provider:Alexia Muhammad Location:[facility] Appointment Type: Open Immunizations Given and Recorded VaccineDateStatusRefusal Reasoninfluenza virus vaccine, inactivated05/31/23 Recordedinfluenza virus vaccine, inactivated06/07/2272EurodpscVYUI-MjS-4 (COVID-19) mRNA BNT-162b2 vax3/01/2837UhjfvnolKZRF-EsG-1 (COVID-19) mRNA BNT-162b2 vax2/08/30 Recordedpneumococcal 23-valent vaccine03/10/19Recorded Medications CPAP machine supplies CPAP machine supplies, See Instructions, 1 EA, 1, mask, headgear P10, tubing, filters to use with CPAP machine, Supply Start Date: 09/23/24 Status: Ordered Quantity: 1.0 Unit: EA Repeat number: 2 cranberry oral capsule See Instructions, Refill(s) 0, 1 tablet daily Start Date: 03/19/23 Status: Ordered Repeat number: 1 Fish Oil 500 mg oral capsule 500 mg = 1 cap(s), Oral, Daily, Refills(s) 0 Start Date: 03/19/23 Status: Ordered Repeat number: 1 gabapentin 300 mg Cap TAKE 1 CAPSULE BY MOUTH THREE TIMES A DAY Start Date: 06/30/25 Status: Ordered Repeat number: 1 loratadine 10 mg oral capsule 10 mg = 1 cap(s), Oral, Daily, PRN Allergy symptoms, # 10 cap(s), Refills(s) 0 Start Date: 03/19/23 Status: Ordered Quantity: 10.0 Unit: cap(s) Repeat number: 1 metformin 500 mg ER Tab TAKE 2 TABLETS BY MOUTH EVERY DAY WITH BREAKFAST Start Date: 06/18/25 Status: Ordered Repeat number: 1 paroxetine 10 mg Tab 10 mg = 1 tab(s), Oral, Daily, # 90 tab(s), Refills(s) 3, Pharmacy: [facility]/pharmacy #[id number], 187.5, cm, 06/18/25 11:22:00 EDT, Height/Length Dosing, 171.4, kg, 06/18/25 11:22:00 EDT, Weight Dosing Start Date: 06/18/25 Status: Ordered Quantity: 90.0 Unit: tab(s) Repeat number: 4 predniSONE 10 mg Tab = 1 -, Oral, As Directed, Take 3 tabs by mouth daily x3 days, then 2 tabs daily x3 days, then 1 tabdaily x3 days., # 18 tab(s), Refills(s) 0, Pharmacy: [facility]/pharmacy #[id number], 187.5, cm, 01/16/24 13:46:00 EDT, Height/Length Dosing, 183, kg, 01/16/24 13:46:00 EDT, Weight Dosing Start Date: 01/16/24 Status: Ordered Quantity: 18.0 Unit: tab(s) Repeat number: 1 Indications: Body mass index [BMI] 60.0-69.9, adult; Other specified health status; testosterone 20.25 mg/1.25 g (1.62%) transdermal gel PLACE 3 ACT ON THE SKIN IN THE MORNING Start Date: 06/18/25 Status: Ordered Repeat number: 1 tiZANidine 4 mg Tab TAKE 1 TABLET BY MOUTH EVERYDAY AT BEDTIME NEEDED FOR MUSCLE SPASTICITY Start Date: 06/30/25 Status: Ordered Repeat number: 1 Problem List ConditionConfirmationCourseEffective DatesStatusHealth StatusInformantChest pain ConfirmedActiveFatigueConfirmedActiveLow back painConfirmedActiveLow back pain with left-sided sciaticaConfirmedActiveHypogonadism maleConfirmedActiveMorbid obesity due to excess caloriesConfirmedActiveNumbness and tingling of foot ConfirmedActiveWellness examinationConfirmedActiveEncounter for weight managementConfirmedActiveMild recurrent major depressionConfirmedActiveLeft sciatic nerve painConfirmedActive Procedures ProcedureDateRelated DiagnosisBody SiteStatusGastric csvqwh0Dlzbsifsg 22325 Social History Social History TypeResponseSmoking StatusFormer smoker, quit more than 30 days ago;Never; Concerns about tobacco use in household: No entered on: 06/30/25Birth SexMaleSex RepresentationMale (finding) Hospital Discharge Instructions Follow Up Care 06/30/2025 08:38:12 With:Alexia Muhammad, FAM, MED Address: [address] [place], [place] [id number]- Business (1) When:06/30/2025 Patient Care team information Care Team Personnel Name: Alexia Muhammad Position: FT Ambulatory - Primary Care - JORGE Member Role: Primary Care Physician [address]: [address] [place] [phone]- Telecom: Care Team Related Persons Name: ALVA PIÑA Name: SMITH PIÑA Insurance Providers Guarantor name: RAKESH PIÑA Health Plan Information #: 1 Payer: [employer] Payer Identifier: [id number] Member Number: [id number] Group Number: [id number] Subscriber Identifier: [id number] Relationship to Subscriber: self Coverage Type: PRIVATE HEALTH INSURANCE Coverage Verification Date: 25 Telecom: [phone] Address: [facility] [address] [place] [id number]
--- OUTSIDE RECORDS SUMMARY | 2025-07-08 09:21 | XMS_ITS | Patient Health Record ---
Author Organization [facility] Address [address] [place] [address] Care Team Providers Care Warehouse Operator Name Role Phone Jose Romero Unavailable [phone] Allergies No Known Allergies Reason For Referral [...] containging alcohol in the last year? Yes Ncwgqt1DkheyxjulyzwmoAtalheew Problems Problem Type SNOMED Code ICD Code Onset Dates Problem Status W/U Status Risk Notes Problem [id number] Unilateral primary osteoa rthritis, left hip (M16.12) FjmsglepmujrrgjRnjwrxs748120252Ibokcj stenosis, lumbosacral region (M48.07) LignftflmrgybldOlpbhua99162968Lwcjm intervertebral disc degeneration, lumbosacral region (M51.37)XbtkdsfgwaklzujIthdqjk147119997Ssoppi spondylosis (M47.816)Activeconfirmed Plan Of Treatment No Information Insurance Providers Payer Name Payer Address Payer Phone Subscriber Number Group Number Insured Name Patient Relationship to Insured Coverage Start Date Coverage End Date DARREL BCBS [address] [place] [address] [id number] RAKESH PIÑA Self - patient is the insured Medical (General) History Medical History History ICD Code Sleep apnea CPAP Machine:Do you use the CPAP machine? YesSurgical History Surgery Date(Month/Year) Bariatric 2010
--- OUTSIDE RECORDS SUMMARY | 2025-07-08 09:21 | XMS_ITS | Clinical Summary ---
Author Organization Availigent tem Address [id number] [address] [place] [address] Care Team Providers Care Public Address System Mechanic Name Role Phone Alexia Mancilla APRN-DRAWING TENDER Primary Care Provider [phone] Allergies No known active allergies Medications MedicationSigDispense [...] skin in the morning. 75 g 5Active metFORMIN (FORTAMET) 500 MG (OSM) 24 hr tablet Take 3 tablets (1,500 mg total) by mouth daily with breakfast. 270 tablet Discontinued Encounters DateTypeDepartmentCare VfadPmlyqixhiuj50/26/2025Refill [facility] [address] [place] [phone] Nury Quinteros MD Low 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05/14/2025Orders Only [facility] [address] [place] [phone] Ref Prov, Not In System 04/24/2025 10:00 AM EDTOffice Visit [facility] [address] [place] [phone] Nury Quinteros MD Insulin resistance (Primary Dx); Incisional hernia, without obstruction or gangrene; Low 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; Morbid obesity with BMI of 50.0-59.9, adult ([facility])04/24/2025[facility] [address] [place] [phone] Nury Quinteros MD 04/24/20258770Rlaure84/14/2025Orders Only [facility] [address] [place] [phone] Ref Prov, Not In System from Last 3 Months Family History Medical HistoryRelationNameCommentsHeart failureFatherDiabetesMaternal GrandfatherCancerSisterCervical cancerSisterRelationNameStatusCommentsFather AliveMaternal GrandfatherMotherAliveSisterDeceased Social History Tobacco UseTypesPacks/DayYears UsedDateSmoking Tobacco: FormerCigarettes Smokeless Tobacco: Never Tobacco Cessation:Counseling Given: Not Answered Alcohol UseStandard Drinks/WeekCommentsNot Asked0 (1 standard drink = 0.6 oz pure alcohol)SOCIALLYChildcareAnswerDate AnrdultgFoirvpluzHbjupes52/12/2019 EmploymentAnswerDate UkzprmsoDdhpysabanUasyofl07/12/2019Sex and Gender InformationValueDate RecordedSex Assigned at BirthNot on fileLegal SexMale 04/15/2015 12:09 PM EDTGender IdentityNot on fileSexual OrientationNot on file Last Filed Vital Signs Vital SignReadingTime TakenCommentsBlood Dtzoltnv163/80010 9:34 AM EDT Pulse--Temperature--Respiratory Rate--Oxygen Saturation--Inhaled Oxygen Concentration--Hulakg435.3 kg (384 lb 3.2 oz)04/24/2025 9:55 AM SACFjekiy826.3 cm (5' 9 )04/24/2025 9:55 AM EDTBody Mass Index56.7404/24/2025 9:55 AM EDT Plan of Treatment DateTypeDepartmentCare Team (Latest Contact Info)Nmqlzewgoqr80/14/2025 9:00 AM ESTOffice Visit [facility] [address] [place] [phone] Nury Quinteros MD [address] [place] [address] Health MaintenanceDue DateLast DoneCommentsDepression Upvvchzau02/12/1989 DTaP,Tdap and Td Vaccines (1 - Tdap)1996COVID-19 Vaccine (3 - 2024- season)503/01/2021, 10/22/2020Influenza Xmpcjnd00/, 05/31/2023, 06/07/2022, Additional history existsAdult BMI Follow Up Plan dult BMI Vnoieegqs34Tobacco Screening Medical Devices Not on file Procedures Procedure NamePriorityDate/TimeAssociated DiagnosisCommentsCT ABDOMEN AND PELVIS W AJKNCfgmdsf94/04/2025 8:24 AM EDTMULTIPLE MVTADargkfr67/14/2025 9:35 AM EDT MULTIPLE MJYWPcbvvxd31/14/2025 9:03 AM EDTfrom Last 3 Months Results * CT abdomen and pelvis with contrast (05/14/2025 8:24 AM EDT)Anatomical Region LateralityModalityBody, Abdomen, Body CoveraN/AComputed Tomography Narrative Authorizing ProviderResult TypeResult StatusNot In System Ref ProvIMG CT ORDERABLESFinal Result * Multiple labs (04/23/2025 9:35 AM EDT) Only the most recent of2 resultswithin the time period is included. Narrative Authorizing ProviderResult TypeResult StatusNot In System Ref ProvPR IMAGING Final ResultPerforming OrganizationAddressCity/State/ZIP CodePhone Number MANUALLY TRANSCRIBED RESULTS from Last 3 Months Insurance Care Teams Team MemberRelationshipSpecialtyStart DateEnd Date Laurent, Alexia L, ATHLETIC FIELD CUSTODIAN-DRAWING TENDER [address] [place] [address] PCP - GeneralNurse Practitioner11/28/24
--- OUTSIDE RECORDS SUMMARY | 2025-07-08 09:21 | XMS_ITS | Clinical Summary ---
Author Organization [facility] Address [address] [place] [address] Care Team Providers Care Dual Rate Dealer Name Role Phone Lisseth Blank MD Primary Care Provider [phone] Allergies Active AllergyReactionsCriticalityNoted FivkWserfeqkZyqpj70/27/2023 environmental Medications MedicationSigDispense QuantityRefillsLast FilledStart DateEnd DateStatus [...] Problems ProblemNoted DateDiagnosed DatePerforation of left tympanic pkyrdgta17/02/2023 Chronic lphcydck00/27/2023ysfunction of both eustachian tubes04/05/2023 Gilokcmlas29/27/2023LPRD (laryngopharyngeal reflux disease)04/05/2023Otorrhea of right ear04/05/2023erforation of right tympanic xdsehnyz25/27/2023Sensorineural hearing loss, rutvuhfkq08/27/2271Eespkjxuzr76/27/2023NASH (nonalcoholic steatohepatitis)04/05/2023OSA (obstructive sleep apnea)04/05/2023Sinus anubnloulfl26/27/2023 Immunizations ImmunizationAdministration DatesNext DueInfluenza, injectable, quadrivalent, preservative free05/31/2023,06/07/2022Influenza, seasonal, injectable, preservative free07/08/2024Novel xlmuskdej-B5N1-04, preservative-free08/18/2009 Pneumococcal Polysaccharide EXYF4748 Family History Medical HistoryRelationNameCommentsHeart failureFatherDiabetesMaternal GrandfatherCancerSisterRelationNameStatusCommentsFatherAliveMaternal Grandfather MotherAliveSister Social History Tobacco UseTypesPacks/DayYears UsedDateSmoking Tobacco: NeverSmokeless Tobacco: Never Tobacco Cessation:Counseling Given: Not Answered Alcohol UseStandard Drinks/WeekCommentsNot Currently0 (1 standard drink = 0.6 oz pure alcohol)Sex and Gender InformationValueDate RecordedSex Assigned at Not on fileLegal LoiNqqp8011/22/2022 6:44 PM EDTGender IdentityNot on fileSexual OrientationNot on file Last Filed Vital Signs Vital SignReadingTime TakenCommentsBlood Ohmjvpcu229/8508 11:31 AM EDT Pulse--Temperature--Respiratory Rate--Oxygen Saturation--Inhaled Oxygen Concentration--Sxqhrq833 kg (375 lb)11/05/2024 10:17 AM DBGQnghod321.3 cm (5' 9 )11/05/2024 10:17 AM ESTBody Mass Index55.38011/05/2024 10:17 AM EST Plan of Treatment Not on file Insurance Care Teams Team MemberRelationshipSpecialtyStart DateEnd Date Lisseth Blank MD [address] [place] [phone] PCP - GeneralFamily Medicine04/05/23
--- OUTSIDE RECORDS SUMMARY | 2025-07-08 09:21 | XMS_ITS | Clinical Summary ---
Author Organization [facility] Address [address] [place] [address] Care Team Providers Care Lab Tester Name Role Phone Unavailable Primary Care Provider Unavailabl e Social History Tobacco UseTypesPacks/DayYears UsedDateSmoking Tobacco: Never AssessedUT Safety & EnvironmentAnswerDate RecordedFear of Current or Ex-PartnerNot on file 11/01/2023Emotionally AbusedNot on file11/01/2023hysically AbusedNot on file 11/01/2023Sexually AbusedNot on file11/01/2023hysically or Sexually AbusedNot on file11/01/2023Sex and Gender InformationValueDate RecordedSex Assigned at BirthNot on fileLegal ErtNbgo4503/08/2022 10:39 PM EDTGender IdentityNot on file Sexual OrientationNot on file Last Filed Vital Signs Vital SignReadingTime TakenCommentsBlood Anlzujit154/9412 10:54 AM EST Hwgyj38183/04/2019 10:54 AM RVUXvmyxxcrdko85.7 ??C (98 ??F)07/08/2019 4:05 PM EDTRespiratory Rate--Oxygen Saturation--Inhaled Oxygen Concentration--Jlszcd243 kg (409 lb 15.9 oz)12/29/2021 11:33 AM OIWSplmtv151.3 cm (5' 9 )12/29/2021 11:32 AM EDTBody Mass Index60.55012/29/2021 11:32 AM EDT Plan of Treatment Health MaintenanceDue DateLast DoneCommentsCT Kepvfgmphyow1977Colonoscopy 1977Colorectal Cancer Pqmgduosy1977FIT-DNA1977FIT1977 FOBT1977Medicare Annual Wellness (AWV)1975 8017Simejfwptqauj1977 Depression Hfqxwahfe35/12/1989Hepatitis B Vaccines (1 of 3 - 19+ 3-dose series) 1996Adult Ihtvhqs4403/21/1999Influenza Vaccine (#1)2025Zoster Vaccines (1 of 2)2027Pneumococcal Vaccine: [...] Milton VaughnAccount TypeRelation to PatientDate of BirthPhoneBilling AddressPersonal/FhirkrLtzo1975 ([place] [address]
--- OUTSIDE RECORDS SUMMARY | 2025-07-08 09:29 | XMS_ITS | CCD ---
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 Name Role Phone MAZIN CANO Admitting Unavailable [...] Attending Unavailable Effie Sarmiento Primary Care Physician [phone] EFFIE SARMIENTO Referring Unavailable EFFIE SARMIENTO Referring Unavailable Lulu Blank MD Primary Care Provider [phone] PEDRO CONTE Attending Unavailable PEDRO CONTE Attending [...] Andrius Guardado Attending Unavailable Sita CORRIGAN, Wilbert Guardado Attending Unavailable Sita CORRIGAN, Wilbert Guardado Attending Unavailable IRIS NORIEGA Attending Unavailable TORSTEN, EFFIE L Referring Unavailable TORSTEN, EFFIE L Primary Care Unavailable NORIEGAIRIS Attending Unavailable TORSTEN, EFFIE L Referring Unavailable TORSTEN, EFFIE L Primary Care Unavailable NORIEGAIRIS Attending Unavailable TORSTEN, EFFIE L Referring Unavailable TORSTEN, EFFIE L Primary Care Unavailable Jose Carlos Whitt DO Attending Provider [phone] Torsten ARTIST MODEL-CEffie Primary Care Provider NURY POTTER Attending Unavailable [...] of OnsetReaction(s) Facility (7 sources)OtherPropensity to adverse dhvfqdoii04-53-6138[facility] Work Phone: Medications Current Medications MedicationDrug Class(es)DatesSig (Normalized)Sig (Original)ASHWAGANDHA EXTRACT ORAL (3 sources)ASHWAGANDHA EXTRACT ORAL Take by mouth. Rymlwb79 hr buPROPion hydrochloride 150 mg extended release [...] mg oral capsule (12 sources)Nonsteroidal Anti-inflammatory DrugStart: 91-75-3695gztc 1 capsule by mouth in the morningcelecoxib (CeleBREX) 200 mg capsule Take 1 capsule (200 mg total) by mouth in the morning. 12/27/2024 Activetake 1 capsule by mouth in the morningcelecoxib (CeleBREX) 50 MG capsule Take 50 mg by mouth in the morning and 50 mg before bedtime. ActiveCranberry preparation (14 sources)Non-Standardized Food Allergenic Extract, Non-Standardized Plant Allergenic ExtractStart: 66-87-4093bnif 1 tablet by mouth once dailycranberry oral capsule See Instructions, Refill(s) 0, 1 tablet daily Start Date: 03/19/23 Status: Orderedcranberry extract (CRANBERRY JUICE POWDER) 425 mg capsule Take by mouth. ActiveCRANBERRY PO Take by mouth Activecyanocobalamin, vitamin B-12, (VITAMIN B-12 ORAL) (6 sources)cyanocobalamin, vitamin B-12, (VITAMIN B-12 ORAL) Vitamin B-12 Active famotidine 20 mg oral tablet (7 sources)Histamine-2 Receptor AntagonistStart: 69-24-3811ydxh 1 tablet by mouth at bedtimefamotidine (Pepcid) 20 MG tablet Take 20 mg by mouth at bedtime. 03/03/2022 ActiveFish Oils (8 sources)Start: 08-52-4347uuqc 1 capsule by mouth once dailyFish Oil 500 mg oral capsule 500 mg = 1 cap(s), Oral, Daily, Refills(s) 0 Start Date: 03/19/23 Status: Orderedomega-3 (FISH OIL) 300 MG capsule Take by mouth Daily Active fluticasone propionate 0.05 mg/actuat metered dose nasal spray (7 sources)CorticosteroidStart: 51-43-1828wdrm 2 spray(s) nasal route once daily fluticasone [...] Activeloratadine 10 mg oral capsule (8 sources)Start: 03-76-8240jxzj 1 capsule by mouth once daily as [...] release oral tablet (8 sources)BiguanideStart: 04-24-2025 End: 30-72-9187kpbr 3 tablets by mouth once daily at breakfastmetFORMIN (FORTAMET) 500 MG (OSM) 24 hr tablet TAKE 3 TABLETS (1,500 MG TOTAL) BY MOUTH DAILY WITH BREAKFAST 270 tablet 2 06/17/2025 ActiveStart: 01-23-2025 End: 31-60-1122sbdp 1 tablet by mouth once daily at breakfastmetFORMIN (FORTAMET) 1000 MG (OSM) 24 hr tablet Take 1 tablet (1,000 mg total) by mouth daily with breakfast. 90 tablet 3 01/23/2025 04/24/2025 Discontinued (Reorder) methylPREDNISolone 4 mg oral tablet (1 source)CorticosteroidStart: 03-19-2023 End: 70-48-8527Fvtltu 4 mg Tab = 1 packet(s), Oral, As Directed, as directed on package labeling, X 6 day(s), # 21tab(s), Refills(s) 0, Pharmacy: [facility]/pharmacy #[id number], 176.5, cm, 03/19/23 13:15:00 EDT, Height/LengthDosing [...] 3 mg/ml ophthalmic solution (7 sources)Quinolone AntimicrobialStart: 71-79-4368bjti 4 drop(s) into the eye(s) every eight [...] mg oral tablet (15 sources)Serotonin Reuptake InhibitorStart: 33-30-0101soyd 1 tablet by mouth once dailyparoxetine 10 mg Tab 10 mg = 1 tab(s), Oral, Daily, # 90 tab(s), Refills(s) 3, [id number] 176.5, cm, 07/26/23 9:32:00 EST, Height/Length Dosing, 187.2, kg, 07/26/23 9:32:00 EST, Weight Dosing Start Date: 07/26/23 Status: Orderedphentermine hydrochloride 37.5 mg oral tablet (9 sources)Sympathomimetic Amine AnorecticStart: 41-56-9189stcl 1 tablet by mouth once dailyphentermine 37.5 mg Tab 37.5 mg = 1 tab(s), Oral, Daily, # 30 tab(s), Refills(s) 0, Pharmacy: [id number], 176.5, cm, 07/26/23 9:32:00 EST, Height/Length Dosing, 187.2, kg, 07/26/23 9:32:00 EST, Weight Dosing Start Date: 07/26/23 Status: OrderedStart: 03-19-2023 End: 37-56-3927jyeb 1 tablet by mouth once dailyphentermine 37.5 mg Tab 37.5 mg = 1 tab(s), Oral, Daily, X 30 day(s), # 30 tab(s), Refills(s) 0, Pharmacy: [facility]/pharmacy #[id number], 176.5, cm, 03/19/23 13:15:00 EDT, Height/Length Dosing Start Date: 03/19/23 Stop Date: 04/18/23 Status: Ahprepi41 actuat testosterone 20.25 mg/actuat topical gel (8 sources)AndrogenStart: 52-92-7867gxauwbhnzlvs (ANDROGEL) 20.25 mg/1.25 gram (1.62 %) gel in metered-dose pump Indications: Low 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 Place 3 Act (60.75 mg total) on the skin in the morning. 75 g 2 06/17/2025 ActiveStart: 04-24-2025 End: 64-49-5070gvyyndwbkkgk (ANDROGEL) 20.25 mg/1.25 gram (1.62 %) gel in metered-dose pump Indications: Low 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 Place 3 Act (60.75 mg total) on the skin in the morning. 75 g 2 04/24/2025 06/05/2025 Discontinued (Reorder)Start: 01-23-2025 End: 56-16-8109dablwagajrxz (ANDROGEL) 20.25 mg/1.25 gram (1.62 %) gel in metered-dose pump Indications: Low 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 Place 2 Act (40.5 mg total) on the skin in the morning. 75 g 03/16/2025 04/24/2025 Discontinued (Reorder)tiZANidine 4 mg oral tablet (12 sources)Central alpha-2 Adrenergic AgonistStart: 58-14-2514kmdo 1 tablet by mouth once dailytiZANidine (ZANAFLEX) 4 mg tablet Take 1 tablet (4 mg total) by mouth nightly. 12/27/2024 ActivetiZANidine (Zanaflex) 2 MG capsule Take by mouth as needed at bedtime for muscle spasms ActiveTurmeric extract (3 sources)TURMERIC ORAL Take by mouth. Active Problems Active Problems Problem ClassificationProblemDateDocumented DateEpisodic/ChronicAbdominal hernia (3 sources)Incisional hernia; Translations: [Incisional hernia without obstruction or gangrene]Onset: 370348-77-5154XbykntjmAlihvzyn foot deformities (4 sources)Acquired varus deformity of right ankle; Translations: [Valgus deformity, not elsewhere classified,right ankle]77-82-8733HurziyncZhfdoaer foot deformities (4 sources)Acquired valgus deformity of left ankle; Translations: [Valgus deformity, not elsewhere classified,left ankle]59-28-1814Jmwaalow Administrative/social admission (6 sources)Patient encounter status; Translations: [Dietary counseling and surveillance]Onset: 576329-54-2489LzqofuswKjeedqeya of lipid metabolism (1 source)Mixed hyperlipidemia; Translations: [MIXED HYPERLIPIDEMIA]Onset: 49-69-1727IdyoxecNlsqlvrpmp disorders (7 sources)Laryngopharyngeal reflux; Translations: [Gastro-esophageal reflux disease without esophagitis]Onset: 455457-39-8447MxcblsrWxinxrvti (7 sources)Nonalcoholic steatohepatitis; Translations: [Nonalcoholic steatohepatitis (RODRIGUEZ)]Onset: 685208-67-1631FbipcyxCjczpkjavqy deficiencies (1 source)Vitamin D deficiency, unspecified; Translations: [VITAMIN D DEFICIENCY UNSPECIFIED]Onset: 32-83-0441ViafhidYmleo acquired deformities (4 sources)Leg length inequality; Translations: [Unequal limb length (acquired), unspecified site]44-06-2503XygnlilpHvybg connective tissue disease (2 sources)Bilateral dysfunction of posterior tibial tendon of feet; Translations: [Posterior tibial tendinitis, right leg]53-60-0349TfagwxmaDmmet diseases of veins and lymphatics (7 sources)Lymphedema; Translations: [Lymphedema, not elsewhere classified] Onset: 394105-54-4483WoxebtbSiutl ear and sense organ disorders (7 sources)Sensorineural hearing loss, bilateral; Translations: [Sensorineural hearing loss, bilateral]Onset: 615364-38-0835EzrzcmmMftbe endocrine disorders (1 source)Male lluyqmjnxsqp10-48-8417MnaxzceFtwcq nervous system disorders (1 source)Difficulty in walking, not elsewhere classified; Translations: [Difficulty in walking, not elsewhere classified]Onset: 75-69-9649DfckuciKaxkw non-traumatic joint disorders (4 sources)Instability of joint of left foot; Translations: [Other instability, left foot]02-61-6140UubkwpnxDkkcg non-traumatic joint disorders (4 sources)Instability of joint of right foot; Translations: [Other instability, right foot]91-27-3041GzkbghaaXsvpy nutritional; endocrine; and metabolic disorders (3 sources)Morbid (severe) obesity due to excess calories; Translations: [MORBID SEVERE OBES D/T EXCESS GAYATRI]Onset: 58-66-8710EfshffgDfovu nutritional; endocrine; and metabolic disorders (2 sources)Body mass index (BMI) 50.0-59.9, adult; Translations: [BODY MASS INDEX BMI 50.0-59.9 ADULT]Onset: 78-89-6282TbwqfjoPszcc nutritional; endocrine; and metabolic disorders (6 sources)Morbid obesity; Translations: [Morbid (severe) obesity due to excess calories]75-25-8722AkgkygoKtxte nutritional; endocrine; and metabolic disorders (2 sources)Body mass index 40+ - severely obese; Translations: [Morbid (severe) obesity due to excess calories]54-75-2488AbcjiwpOhvif nutritional; endocrine; and metabolic disorders (2 sources)Insulin resistance; Translations: [Insulin resistance]01-23-2025 ChronicOther screening for suspected conditions (not mental disorders or infectious disease) (5 sources)Decreased testosterone level ; Translations: [Other specified abnormal findings of blood chemistry]Onset: 048651-48-9365KjybgdosPgtqd upper respiratory disease (7 sources)Chronic rhinitis; Translations: [Chronic rhinitis]Onset: 04-05-2023 41-74-9873TqcjrivYnnbv upper respiratory infections (5 sources)Acute pharyngitis, unspecified; Translations: [Acute upper respiratory infection, unspecified]Onset: 28-80-1502AgyvgpgkMobrfhax codes; unclassified (1 source)Obstructive sleep apnea (adult) (pediatric); Translations: [OBSTRUCTIVE SLEEP APNEA]Onset: 18-01-5689SonsjvuAmxaaimo codes; unclassified (7 sources)Obstructive sleep apnea syndrome; Translations: [Obstructive sleep apnea (adult) (pediatric)]Onset: 599383-37-2767JxmpjmfKfvwmasy codes; unclassified (3 sources)History of sleeve gastrectomy; Translations: [Acquired absence of stomach [part of]]87-56-5899KjeoqeuoOieohrivn and history of mental health and substance abuse codes (1 source)Personal history of nicotine dependence; Translations: [PERSONAL HISTORY OF NICOTINE DEPEND]Onset: 07-99-1943TpgxygmkAbbwaioyebj; intervertebral disc disorders; other back problems (3 sources)Sciatica; Translations: [Lumbago with sciatica, left side]Onset: 139263-02-8815RhiqydqjLqxpfpntnbym (1 source)CONTACT W/AND (SUSP) EXPOS COVID-19; Translations: [CONTACT W/AND (SUSP) EXPOS COVID-19]Onset: 89-12-0744Dwewspvomdpd (1 source)COUGH, UNSPECIFIED; Translations: [COUGH, UNSPECIFIED]Onset: 14-14-3852Ysarlhluunyk (3 sources)Patient encounter -95-8605Xhunjqxpqxuq (1 source)Nutrition CounselingOnset: 61-42-4906Viutmeiajhcx (1 source)Insulin resistance, unspecified; Translations: [Insulin resistance, unspecified]Onset: 30-94-0777Oajpkyqycsly (1 source)ESTABLISHED PATIENTOnset: 50-86-1018Qrgwvwndfgrm (1 source)New PatientOnset: 11-28-2024 Past or Other Problems Problem ClassificationProblemDateDocumented DateEpisodic/ChronicCardiac dysrhythmias (7 sources)Sinus tachycardia; Translations: [Tachycardia, unspecified]Onset: 777597-33-3595KxuzcrrdRvnrpanpht associated with dizziness or vertigo (4 sources)Dizziness and giddiness; Translations: [DIZZINESS AND GIDDINESS] Onset: 18-26-4906UujnrbmqOfblesej of upper limb (1 source)Other fracture of fifth metacarpal bone, left hand, initial encounter for closed fracture; Translations: [OTH FX 5TH MC BN LH INIT CLOS FX]Onset: 69-71-9812UrxmedgqRnomttp and fatigue (1 source)Wocyglr36-57-6664PfoqcuysEaedv ear and sense organ disorders (7 sources)Otorrhea of right ear; Translations: [Otorrhea, right ear]Onset: 208026-40-3272KgyxqzogAamtc nervous system disorders (1 source)Paresthesia of tkdl65-60-6196QqroxilrJgmqm upper respiratory disease (1 source)Nasal congestion; Translations: [NASAL CONGESTION]Onset: 02-03-2022 EpisodicOther upper respiratory disease (7 sources)Hoarse; Translations: [Dysphonia]Onset: 826070-58-1766Ohpmknwh Otitis media and related conditions (20 sources)Dysfunction of bilateral eustachian tubes; Translations: [Unspecified Eustachian tube disorder, bilateral]Onset: EpisodicResidual codes; unclassified (3 sources)Acquired absence of stomach [part of]; Translations: [Acquired absence of stomach (part of)]Onset: 51-97-7255MjpfnxhmYvwmljtrkrk injury; contusion (6 sources)Contusion of left little finger without damage to nail, initial encounter; Translations: [Contusionof left ring finger without damage to nail, initial encounter]Onset: 10-38-5312JkmuzowfVcittnjecxyi (1 source)History of sleeve quqbdubxplm92-30-8706 Results Test NameValueInterpretationReference RangeFacilityAmbulatory Visit Summaryon 88-49-7543Hcscxtrbxv Visit SummaryAmbulatory Visit Summary RAKESH VAUGHN :1975 [...] Effie Muhammad This Is Your Medications List [facility] (CPAP machine supplies) cranberry (cranberry oral [...] 1:00 PM EST With: Effie Muhammad Where: [address] [address]- You Need to Schedule the Following Appointments Follow Up with Effie Muhammad, JOSAFAT, MED When: In 4 weeks 06/30/2025 EDT Where: [address] [place] [address]- Business (1) Medications What How Much When [...] signed up for this yet, please contact [employer] at [phone] to get signed up today. Language Information Language assistance services are available as needed. [facility] Medicine Office/Clinic Noteon 08-41-0508Hvvzgc Medicine Office/Clinic NoteFajewish healthcare center Medicine Office/Clinic Note HPI Staff Pt is [...] Daily, # 90 tab(s), Refills(s) 4, Pharmacy: [facility]/pharmacy #[id number],187.5, cm, 01/16/24 13:46:00 EDT, Height/Length Dosing, 183, kg, 01/16/24 13:46:00 EDT, Weight Dosing Follow-up With When Contact Information Effie Muhammad, JOSAFAT, MED In 4 weeks 06/30/[address] [place] [address] Business (1) Additional Instructions: Problem List/Past Medical [...] vax 10/22/2020 Recorded pneumococcal 23-valent vaccine 03/10/2019 RecordedNoOhio State Health SystemComment on above:Result Comment: Electronically Signed By: Torsten MONSIVAIS, Effie Sewell\.br\Date and Time Signed: 06/30/25 10:54 EDTProvider Letteron 06-30-2025 Provider LetterProvider Letter June 30, 2025 [place] [phone] : 1975 To Whom It May Concern, Please excuse above patient from work, due to medical Date of Illness: From: _06-30-25 To: _07-01-25 May Return to Work On:07-02-25 Restrictions: _ Comments: _ Sincerely, [place] [address] ThksqkLpulgyOhio State Health SystemProvider LetterProvider Letter June 30, [address] [phone] : 1975 To Whom It May Concern, Please excuse above patient from work, due to medical Date of Illness: From: _06-30-25 To: _07-01-25 May Return to Work On:07-02-25 Restrictions: _ Comments: _ Sincerely,NormalDarby Sequatchie Medical CenterReminderson 62-11-0087Nkhdlogfl Reminders From: Effie Muhammad To: B - [...] - 42) notified, he said he will order picker/assembler the form on SundayNoOhio State Health SystemAmbulatory Visit Summaryon 11-33-4024Wdyfsekodw Visit SummaryAmbulatory Visit Summary RAKESH VAUGHN :1975 [...] yet, please contact Health Information Management at [phone] to get signed up today. Language Information Language assistance services are available as needed. [facility] Medicine Office/Clinic Noteon 85-13-7073Lywtvb Medicine Office/Clinic NoteLemuel [facility]hat[facility]/Clinic Note HPI Staff Pt is here for wellness Health Maintenance: Last Labs: March 19 2023 he had labs done [facility] April or May History of Present [...] for wellness visit. had labs done at [facility] in April or May. BMP was found but we did not find a lipid. so we will draw that today. pt is doing well. down 25 pounds since last visit. RTC 1 year Ordered: Est Preventative 40 to 64 years [address] Lab Specimen Collect 61785 Lipid Panel 2. Mild recurrent major depression (F33.0: Major depressive disorder, recurrent, mild) needs refill on paroxetine Ordered: Est Preventative 40 to 64 years [address] 3. Screening for hyperlipidemia (Z13.220: Encounter for screening for lipoid disorders) lipid panel drawn in office today. will fill out Ordered: Est Preventative 40 to 64 years [address] Lab Specimen Collect 39891 4. Body mass index [BMI] 45.0-49.9, adult (Z68.42: Body mass index [BMI] 45.0- 49.9, adult) BMI education. pt is doing well. continues making healthy food choices. is being followed by Nury Potter, bariatric surgeon. has lost about 60 pounds all together. 25 in the last 17 months. Ordered: Est Preventative 40 to 64 years [address] 5. Class 3 severe obesity due to excess calories with body mass index (BMI) of 45.0 to 49.9 in adult (E66.813: Obesity, class 3) see above Ordered: Est Preventative 40 to 64 years [address] Orders: gabapentin, 300 mg = 1 cap(s), Oral, TID, # 90 cap(s), Refills(s) 0, [id number] 187.5, cm, 01/16/24 13:46:00 EDT, Height/Length Dosing, 183, kg, 01/16/24 13:46:00 EDT, Weight Dosing gabapentin, 300 mg = 1 cap(s), Oral, TID, # 90 cap(s), Refills(s) 2, [id number], 187.5, cm, 01/16/24 13:46:00 EDT, Height/Length Dosing, 183, kg, 01/16/24 13:46:00 EDT, Weight Dosing paroxetine, See Instructions, TAKE 1 TABLET BY MOUTH EVERY DAY, # 90 tab(s), Refills(s) 3, Pharmacy: [facility], 187.5, cm, 06/18/25 11:22:00 EDT, Height/Length Dosing, 171.4, kg, 06/18/25 11:22:00 EDT, Weight Dosing paroxetine, 10 mg = 1 tab(s), Oral, Daily, # 90 tab(s), Refills(s) 3, [id number]187.5, cm, 06/18/25 11:22:00 EDT, Height/Length Dosing, [...] vax 10/22/2020 Recorded pneumococcal 23-valent vaccine 03/10/2019 RecordedNormLakeHealth TriPoint Medical CenterComment on above:Result Comment: Electronically Signed By: Effie Muhammad.spenser\Date and Time Signed: 06/18/25 12:28 EDTLipid Panelon 06-18-2025 Cholesterol [Mass/Vol]119 mg/bBSzj172-105FmftszDetwiler Memorial HospitalComment on above:Performed By: #### [id number] #### [facility] [address], [place] [address]Nxmldbusqpj in HDL [Mass/Vol]32 mg/dLInvalid Interpretation CodeDetwiler Memorial HospitalComment on above:Result Comment: '>= 60 LOW RISK' '<= 40 HIGH RISK'Performed By: #### [id number] #### [facility] [address], [place] [address]Xpmeilzqwdi in LDL [Mass/Vol]85 mg/dLNormal<=129Detwiler Memorial HospitalComment on above:Performed By: #### [id number] #### uLl [facility] [address], [place] [address]Vqrgkulanix in VLDL [Mass/Vol]12 mg/dLNormal7-40Detwiler Memorial HospitalComment on above:Performed By: #### [id number] #### Lul [facility] [address], [place] [address]Flhvwklmexwg [Mass/Vol]61 mg/dLNormal<=149Detwiler Memorial HospitalComment on above:Performed By: #### [id number] #### [facility] [address], [place] [address]UWT AND AUTO DIFFon 92-68-8669CKYUUZAC BASOPHIL0.2 X10E9/L Normal0.0-0.2Pro[facility] Hospital LemooreComment on above:Performed By: #### 23333-4, 08190-8 #### [facility] ([id number]) [address] [place] [address] #### LIVR, 41983-7, 2731-8, 2498-4, HA1C, 213-9, 3016-3, CBCA #### [facility] ([id number]) [address], [address] [place], [place] [address]VPIXDYYI NEUTROPHIL5.2 X10E9/LNormal1.5-6.6Pro[facility] Hospital LemooreComment on above:Performed By: #### 45111-1, 73007-3 #### [facility] ([id number]) [address] [place] [address] #### LIVR, 14520-1, 2731-8, 2498-4, HA1C, 2132-9, 3016-3, CBCA #### [facility] ([id number]) [address], [address] [place], [place] [address]Tlvvykbex/100 WBC (Bld)2.6 %NormalProMedica Tensas Hospital Comment on above:Performed By: #### 72283-9, 83300-8 #### [facility] ([id number]) [address] [place] [address] #### LIVR, 54160-6, 2731-8, 2498-4, HA1C, 2132-9, 3016-3, CBCA #### [facility] ([id number]) [address] [place] [address], [address] [place], [place] [address]Anjuoiewwfd (Bld) [#/Vol]0.1 10*3/uLNormal0.0-0.4[facility] - ColumbusComment on above:Performed By: #### 38483-8, 21846-4 #### [facility] ([id number]) [address] [place] [address] #### LIVR, 53950-1, 2731-8, 2498-4, HA1C, 2132-9, 3016-3, CBCA #### [facility] ([id number]) [address] [place] [address], [address] [place], [place] [address]Wklgquqzlkx/100 WBC (Bld)1.5 %[facility] Comment on above:Performed By: #### 66101-4, 75719-6 #### [facility] ([id number]) [address] [place] [address] #### LIVR, 42361-9, 2731-8, 2498-4, HA1C, 2132-9, 3016-3, CBCA #### [facility] ([id number]) [address] [place] [address], [address] [place], [place] [address]Zrwhavesxtw distribution width (RBC) [Ratio]16.0 %High11.5-15.0 ProMGardens Regional Hospital & Medical Center - Hawaiian GardensComment on above:Performed By: #### 81982-7, 40588-4 #### [facility] ([id number]) [address] [place] [address] #### LIVR, 10884-9, 2731-8, 2498-4, HA1C, 2-9, 3016-3, CBCA #### [facility] ([id number]) [address], [address] [place], [place] [address]Rqqeutrlpt (Bld) [Volume fraction]44.1 %Ajgdba94-26RxsRmaaptChristus Spohn Hospital – KlebergComment on above:Performed By: #### 52840-8, 00354-4 #### [facility] ([id number]) [address] [place] [address] #### LIVR, 02348-4, 2731-8, 2498-4, HA1C, 2-9, 3016-3, CBCA #### [facility] ([id number]) [address], [address] [place], [place] [address]Gafdmizoly (Bld) [Mass/Vol]14.6 g/eRSpaymh18.0-17.0[facility] Hospital - ColumbusComment on above:Performed By: #### 12394-4, 93869-9 #### [facility] ([id number]) [address] [place] [address] #### LIVR, 53691-9, 2731-8, 2498-4, HA1C, 2-9, 3016-3, CBCA #### [facility] ([id number]) [address], [address] [place], [place] [address]Jspdxiedknn (Bld) [#/Vol]1.3 10*3/uLNormal1.0-3.5PSt. Vincent HospitalComment on above:Performed By: #### 48100-6, 18094-6 #### [facility] ([id number]) [address] [place] [address] #### LIVR, 25167-7, 2731-8, 2498-4, HA1C, 2-9, 3016-3, CBCA #### [facility] ([id number]) [address], [address] [place], [place] [address]Npkxjzvnnbh/100 WBC (Bld)18.4 %NormalSelect Medical Specialty Hospital - Columbus Comment on above:Performed By: #### 75764-0, 31214-1 #### [facility] ([id number]) [address] [place] [address] #### LIVR, 83762-1, 2731-8, 2498-4, HA1C, 2131-9, 3016-3, CBCA #### [facility] ([id number]) [address], [address] [place], [place] [address]GTZ (RBC) [Entitic mass]28.3 dvYycvcx36-44ZjkUjtlqdChristus Spohn Hospital – KlebergComment on above:Performed By: #### 20469-2, 99170-1 #### [facility] ([id number]) [address] [place] [address] #### LIVR, 56286-0, 2731-8, 2498-4, HA1C, 2-9, 3016-3, CBCA #### [facility] ([id number]) [address], [address] [place], [place] [address]BDGC (RBC) [Mass/Vol]33.1 g/zRVpgsde65-38WtsFeycrgSelect Medical Specialty Hospital - ColumbusComment on above:Performed By: #### 26123-6, 04743-6 #### [facility] ([id number]) [address] [place] [address] 69127 #### LIVR, 27956-3, 2731-8, 2498-4, HA1C, 2132-9, 3016-3, CBCA #### [facility] ([id number]) [address], [address] [place], [place] [address]IGM (RBC) [Entitic vol]85 pXFkgvmb44-218CjaEesyyz Fremont HospitalComment on above:Performed By: #### 74343-4, 76897-5 #### [facility] ([id number]) [address] [place] [address] 87797 #### LIVR, 25338-2, 2731-8, 2498-4, HA1C, 2131-9, 3016-3, CBCA #### [facility] ([id number]) [address], [address] [place], [place] [address]Adfnnevxr (Bld) [#/Vol]0.3 10*3/uLNormal0-0.9ProChristus Spohn Hospital – KlebergComment on above:Performed By: #### 59716-5, 63895-5 #### [facility] ([id number]) [address] [place] [address] 07180 #### LIVR, 71578-3, 2731-8, 2498-4, HA1C, 2131-9, 3016-3, CBCA #### [facility] ([id number]) [address], [address] [place], [place] [address]Tidkrgoqe/100 WBC (Bld)4.3 %NormalProChristus Spohn Hospital – Kleberg Comment on above:Performed By: #### 93808-0, 71393-5 #### [facility] ([id number]) [address] [place] [address] 53529 #### LIVR, 03479-9, 2731-8, 2498-4, HA1C, 2-9, 3016-3, CBCA #### [facility] ([id number]) [address], [address] [place], [place] [address]Wcosakbzega/100 WBC (Bld)73.2 %NormalSelect Medical Specialty Hospital - [place] Comment on above:Performed By: #### 77171-3, 20380-2 #### [facility] ([id number]) [address] [place] [address] 46924 #### LIVR, 55873-5, 2731-8, 2498-4, HA1C, 2132-9, 3016-3, CBCA #### [facility] ([id number]) [address], [address] [place], [place] [address]Upzmcyly mean volume (Bld) [Entitic vol]7.6 fLNormal7-12 [facility] - ColumbusComment on above:Performed By: #### 33920-1, 72247-5 #### [facility] ([id number]) [address] [place] [address] 65[address] #### LIVR, 96420-1, 2731-8, 2498-4, HA1C, 2132-9, 3016-3, CBCA #### [facility] ([id number]) [address], [address] [place], [place] [address]Afpcnmerk (Bld) [#/Vol]234 10*3/wUYmpqvy332-178WnnDselypSelect Medical Specialty Hospital - ColumbusComment on above:Performed By: #### 51525-7, 03361-0 #### [facility] ([id number]) [address] [place] [address] 50906 #### LIVR, 70475-9, 2731-8, 2498-4, HA1C, 2132-9, 3016-3, CBCA #### [facility] ([id number]) [address], [address] [place], [place] [address]NZU COUNT5.16 X10E12/LNormal4.10-5.70[facility] [place] Comment on above:Performed By: #### 83314-1, 24088-7 #### [facility] ([id number]) [address] [place] [address]16 #### LIVR, 50453-3, 2731-8, 2498-4, HA1C, 2132-9, 3016-3, CBCA #### [facility] ([id number]) [address], [address] [place], [place] [address]GKV (Bld) [#/Vol]7.1 10*3/uLNormal4.0-11.0ProChristus Spohn Hospital – KlebergComment on above:Performed By: #### 62943-5, 14109-3 #### [facility] ([id number]) [address] [place] [address] 20197 #### LIVR, 34066-8, 2731-8, 2498-4, HA1C, 2-9, 3016-3, CBCA #### [facility] ([id number]) [address], [address] [place], [place] [address]DVB A1C (GLYCO-HGB)on 03-59-4427Abwywur [Mass/Vol]103 mg/dL NormalProChristus Spohn Hospital – KlebergComment on above:Performed By: #### 65721-1, 24329-8 #### [facility] ([id number]) [address] [place] [address]55 #### LIVR, 14028-0, 2731-8, 2498-4, HA1C, 2132-9, 3016-3, CBCA #### [facility] ([id number]) [address], [address] [place], [place] [address]BhX0p (Bld) [Mass fraction]5.2 %Normal4.4-5.6ProChristus Spohn Hospital – KlebergComment on above:Result Comment: NOTE ADA Guidelines Result HgbA1c Normal : less than 5.7 % Prediabetes : 5.7 % to 6.4 % Diabetes : > 6.4 % Use with caution in patients with abnormal hemoglobin variants as the half-life of red blood cells and in vivo glycation rates are affected.Performed By: #### 38500-3, 72614-1 #### [facility] ([id number]) [address] [place] [address] 06927 #### LIVR, 52352-2, 2731-8, 2498-4, HA1C, 2132-9, 3016-3, CBCA #### [facility] ([id number]) [address], [address] [place], [place] [address]VJHSnh 73-54-3593Rzrd [Mass/Vol]51 ug/bUCpyrka44-535RyzKgutay Fremont HospitalComment on above:Performed By: #### 38304-4, 14346-6 #### [facility] ([id number]) [address] [place] [address] #### LIVR, 63540-6, 2731-8, 2498-4, HA1C, 2-9, 3016-3, CBCA #### [facility] ([id number]) [address], [address] [place], [place] [address]Pfwxhku.free and Insulin.total panel Qnon 53-98-4474Essayoe, Free, S146 mcIU/mLHigh3 - 25ProChristus Spohn Hospital – KlebergComment on above:Performed By: #### 91824-0, 10555-2 #### [facility] ([id number]) [address] [place] [address]2496 #### LIVR, 85435-4, 2731-8, 2498-4, HA1C, 2132-9, 3016-3, CBCA #### [facility] ([id number]) [address], [address] [place], [place] [address]Kxahfqq, Total, S168 mcIU/mLHigh3 - 25[facility] [place] Comment on above:Result Comment: NOTE ADDITIONAL INFORMATION This test has been modified from the customs agent's instructions. Its performance characteristics were determined by [facility] in a manner consistent with CLIA [...] the total insulin concentration. Test Performed by: [place] [address] E Commerce Marketing Manager: Leslye Pink Ph.D.; CLIA# [id number] By: #### 42333- 9, 26249-2 #### [facility] ([id number]) [address] [place] [address] 0[address]60 #### LIVR, 98759-7, 2731-8, 2498-4, HA1C, 2131-9, 3016-3, CBCA #### [facility] ([id number]) [address] [place] [address], [address] [place], [place] [address]HLOGC PANELon 53-75-5445Ftgiiiv [Mass/Vol]3.7 g/dLNormal3.2-5.3 [facility] LemooreComment on above:Performed By: #### 46985-2, 51712-0 #### [facility] ([id number]) [address] [place] [address] 48420 #### LIVR, 26861-9, 2731-8, 2498-4, HA1C, 2132-9, 3016-3, CBCA #### [facility] ([id number]) [address], [address] [place] [address]IIZ [Catalytic activity/Vol]59 U/ZHofdzv47-717EywPqxicrChristus Spohn Hospital – KlebergComment on above:Performed By: #### 09745-6, 83439-7 #### [facility] ([id number]) [address] [place] [address] 98363 #### LIVR, 72666-2, 2731-8, 2498-4, HA1C, 2131-9, 3016-3, CBCA #### [facility] ([id number]) [address], [address] [place] [address]ALA [Catalytic activity/Vol]19 U/LNormal0-40ProChristus Spohn Hospital – KlebergComment on above:Performed By: #### 15800-4, 02047-2 #### [facility] ([id number]) [address] [place] [address]64 #### LIVR, 04632-5, 2731-8, 2498-4, HA1C, 2131-9, 3016-3, CBCA #### [facility] ([id number]) [address], [address] [place], [place] [address]UDL [Catalytic activity/Vol]18 U/LNormal0-41ProChristus Spohn Hospital – KlebergComment on above:Performed By: #### 90923-0, 64009-0 #### [facility] ([id number]) [address] [place] [address] 98251 #### LIVR, 82258-8, 2731-8, 2498-4, HA1C, 2-9, 3016-3, CBCA #### [facility] ([id number]) [address], [address] [place], [place] [address]Msllnvuml [Mass/Vol]0.5 mg/dLNormal0.3-1.2ProMedica Naval Hospital LemooreComment on above:Performed By: #### 90149-7, 61178-4 #### [facility] ([id number]) [address] [place] [address] 11779 #### LIVR, 23257-1, 2731-8, 2498-4, HA1C, 2132-9, 3016-3, CBCA #### [facility] ([id number]) [address], [address] [place], [place] [address]Rzqiftxze.direct [Mass/Vol]0.1 mg/dLNormal0.0-0.4[facility] - ColumbusComment on above:Performed By: #### 46857-2, 04432-3 #### [facility] ([id number]) [address] [place] [address] 90841 #### LIVR, 74386-7, 2731-8, 2498-4, HA1C, 2-9, 3016-3, CBCA #### [facility] ([id number]) [address], [address] [place], [place] [address]Dezjvhz [Mass/Vol]7.3 g/dLNormal6.0-8.0ProChristus Spohn Hospital – KlebergComment on above:Performed By: #### 97229-3, 47378-7 #### [facility] ([id number]) [address] [place] [address] #### LIVR, 49887-1, 2731-8, 2498-4, HA1C, 2132-9, 3016-3, CBCA #### [facility] ([id number]) [address], [address] [place], [place] [address]Vigqqbjkwa.intact [Mass/Vol]on 98-38-3886WTY GHVJEC42 pg/mL Wqzpve85-72ZdtFktaeu Tensas HospitalComment on above:Performed By: #### 01299- 9, 50775-6 #### [facility] ([id number]) [address] [place] [address]9827 #### HEATHERR, 32529-0, 2731-8, 2498-4, HA1C, 2132-9, 3016-3, CBCA #### [facility] ([id number]) [address] [place] [address], [address] [place], [place] [address]DOR Qnon 32-91-5093HMO4.64 uIU/mLNormal0.49-4.67ProChristus Spohn Hospital – KlebergComment on above:Performed By: #### 04168-1, 07637-4 #### [facility] ([id number]) [address] [place] [address]19 #### LIVR, 98414-8, 2731-8, 2498-4, HA1C, 2131-9, 3016-3, CBCA #### [facility] ([id number]) [address] [place] [address], [address] [place], [place] [address]Fzgiukwzeqju free and total panel [Mass/Vol]on 12-01-2024 Testosterone [Mass/Vol]286 ng/hAYwflxm551-135ZekFjmsop Fremont HospitalComment on above:Result Comment: NOTE ADDITIONAL INFORMATION Testing performed by Liquid Chromatography-Tandem Mass Spectrometry (LC-MS/MS). This test was developed and its performance characteristics determined by [facility] in a manner consistent with CLIA requirements. This test has not been cleared or approved by the U.S. Food and Drug Administration. Test Performed by: [facility] [address] [place] [address] E Commerce Marketing Manager: Leslye Pink Ph.D.; CLIA# [id number] By: #### 01335- 9, 67468-5 #### [facility] ([id number]) [address] [place] [address]99 #### LIVR, 54076-3, 2731-8, 2498-4, HA1C, 2-9, 3016-3, CBCA #### [facility] ([id number]) [address], [address] [place], [place] [address]BKSZYUJQEBCS FREE8.16 ng/dLNormal4.26-16.4ProMedica [facility] Hospital LemooreComment on above:Result Comment: NOTE ADDITIONAL INFORMATION This test was developed and its performance characteristics determined by [facility] in a manner consistent with CLIA requirements. This test has not been cleared or approved by the U.S. Food and Drug Administration.Performed By: #### 98398-0, 76886-8 #### [facility] ([id number]) [address] [place] [address] 86868 #### LIVR, 74757-5, 2731-8, 2498-4, HA1C, 2131-9, 3016-3, CBCA #### [facility] ([id number]) [address], [address] [place], [place] [address]JRJJVRP B12on 78-06-5888Aiuncyqch (Vitamin B12) [Mass/Vol]399 pg/dUKrkfml527-360TbyFiwasl [facility] Hospital LemooreComment on above:Performed By: #### 85524-5, 88878-8 #### [facility] ([id number]) [address] [place] [address] #### LIVR, 60882-6, 2731-8, 2498-4, HA1C, 2132-9, 3016-3, CBCA #### [facility] ([id number]) [address], [address] [place], [place] [address]Pqzhsuz D+Metabolites [Mass/Vol]on 10-91-1430SOVRMQY D 25 HYD TOT36.1 ng/aQGrajmy80-825IxeDhibut [facility] Hospital LemooreComment on above:Result Comment: Vitamin D status 25 [place] Vitamin D Deficiency <20 ng/mL Insufficiency 20-29 ng/mL Sufficiency 30-100 ng/mL Toxicity >100 ng/mL NOTE: A pediatric reference range has not been established by the customs agent of this kit. The [place] [employer] recommends a Vitamin D level of = or >20ng/mL in infants and children.Performed By: #### 27642-0, 46132-0 #### [facility] ([id number]) [address] [place] [address], [place] [address] #### LIVR, 95169-8, 2731-8, 2498-4, HA1C, 2132-9, 3016-3, CBCA #### [facility] ([id number]) [address] [facility] [facility], [address] [place], [place] [address]GDU LUMBAR SPINE WO CONTRASTon 38-47-1882MWA LUMBAR SPINE WO CONTRASTEXAMINATION: MRI OF THE [...] compromise. L2-L3: No disc bulge or protrusion. Mvbb-wy-akqmzyho facet arthropathy. No significant central canal stenosis. [...] Signed by: Carson Linares DO 01/24/24 Final resultColorado Acute Long Term HospitalMRI THORACIC SPINE WO CONTRASTon 74-74-9955MTF THORACIC SPINE WO CONTRASTEXAMINATION: MRI OF THE [...] Signed by: Carson Linares DO 01/24/24 Final resultNoSpanish Peaks Regional Health CenterCHEMISTRYOrdered By: SYSTEM SYSTEM on 95-36-5841Luxizecuy (Vitamin B12) [Mass/Vol]301 pg/mPLqcnqh83 - 1500 pg/mLRemisol ChemVitamin D 25 Uswatss15.7 ng/yLQpnmzj21.0 - 100.0 ng/mLRemisol ChemCHEMISTRYOrdered By: [employer] SYSTEM on 00-19-4793Ocxshdcdnuu [Mass/Vol]171 mg/yUPopehq613 - 200 mg/dLALLIANCEHEALTH SEMINO[facility] – [facility] RemisolCholesterol in HDL [Mass/Vol]39 mg/dL Invalid Interpretation CodeFTMC RemisolCholesterol in LDL [Mass/Vol]112 mg/dL Normal<=129mg/dLFTMC RemisolCholesterol in VLDL [Mass/Vol]19 mg/dLNormal7 - 40 mg/dLFTMC RemisolProstate specific Ag [Mass/Vol]0.9 ng/mLNormal0.1 - 3.5 ng/mL [facility] RemisolTriglyceride [Mass/Vol]94 mg/dLNormal<=149mg/dLFTMC RemisolTSH Qn 2.03 m[IU]/LNormal0.34 - 5.60 mcIU/mLFTMC RemisolHEMATOLOGYOrdered By: [employer] SYSTEM on 42-83-5413Uramnbvkg/100 WBC (Bld)0.3 %Normal0.0 - 2.0 %[facility] HemeAutoSS Basophils/Leukocytes Auto (Bld) [Pure # fraction]0.0 E9/LNormal0.0 - 0.2 E9/L [facility] HemeAutoSSEosinophils/100 WBC (Bld)2.1 %Normal0.0 - 8.0 %[facility] HemeAutoSS Eosinophils/Leukocytes Auto (Bld) [Pure # fraction]0.2 E9/LNormal0.0 - 0.5 E9/L [facility] HemeAutoSSLymphocytes/100 WBC (Bld)20.5 %Erkakr70.0 - 50.0 %[facility] HemeAutoSS Lymphocytes/Leukocytes Auto (Bld) [Pure # fraction]1.6 E9/LNormal1.0 - 4.0 E9/L [facility] HemeAutoSSMonocytes/100 WBC (Bld)8.7 %Normal4.0 - 14.0 %[facility] HemeAutoSS Monocytes/Leukocytes Auto (Bld) [Pure # fraction]0.7 E9/LNormal0.2 - 1.0 E9/L [facility] HemeAutoSSNeutrophils/100 WBC (Bld)68.4 %Uenfce58.0 - 75.0 %[facility] HemeAutoSS Neutrophils/Leukocytes Auto (Bld) [Pure # fraction]5.3 E9/LNormal2.0 - 7.5 E9/L [facility] HemeAutoSSHEMATOLOGYOrdered By: Vaughn Chin on 51-12-9612Drlcnaywgsv distribution width (RBC) [Ratio]16.3 %High10.9 - 14.2 %[facility] HemeAutoSSHematocrit (Bld) [Volume fraction]43.7 %Vwcgxg65.7 - 49.0 %[facility] HemeAutoSSHemoglobin (Bld) [Mass/Vol]14.4 g/jIZvsqsn70.5 - 17.5 gm/dLFTMC HemeAutoSSMCH (RBC) [Entitic mass]27.9 mfWlimot80.0 - 34.0 pgFTMC HemeAutoSSMCHC (RBC) [Mass/Vol]33.0 g/dL Lykukf94.4 - 36.0 gm/dLFTMC HemeAutoSSMCV (RBC) [Entitic vol]84.8 cNBgfmkt91.0 - 100.0 fLFTMC HemeAutoSSPlatelet mean volume (Bld) [Entitic vol]7.7 fLNormal6.4 - 10.8 fLFTMC HemeAutoSSPlatelets (Bld) [#/Vol]278.0 E9/BLttpds056.0 - 500.0 E9/L [facility] HemeAutoSSRBC (Bld) [#/Vol]5.2 E12/LNormal4.3 - 5.9 E12/LFTMC HemeAutoSSWBC corrected for nucl RBC Auto (Bld) [#/Vol]7.7 E9/LNormal4.0 - 11.0 E9/LFTMC HemeAutoSSCovid-19 PCR ([facility]VDJOSIAH [facility]. [facility])on 94-82-1423GSMR-CoV-2 (COVID-19) RNA BETHANY+probe Ql (Unsp spec)Not detectedNormalNOT DETECTEDThe Southwest General Health Centerment on above:Result Comment: When diagnostic testing is [...] for this test is supported by the Veterinary Technician of Health and Human Service's declaration that [...] longer be used).Performed By: #### CVDTBH #### [facility] [address] [place] [address] Dr. Mynor Amaya STREP CULTUREon 07-28-2022. pyogenes Ag Ql (Unsp spec) Culture Observations: NEGATIVE FOR GROUP A STREPTOCOCCUS.NormalThe Southwest General Health Centerment on above: Performed By: #### GRASTCX #### [facility] [address] [place] [address] Dr. Mynor Rodriguez A AND B AGon 66-32-0572CHFLFZGSTWRNV [facility] HospitalComment on above:Result Comment: Negative for Flu A protein angiten. Infection due to Flu A cannot be ruled out. FluA angiten in the sample may be below the detection limit of the test.Performed By: #### INFLUAB #### [facility] [address] [place] [address] Dr. Mynor YunINFLUBNEGHSCincinnati Children's Hospital Medical Center on above: Result Comment: Negative for Flu B protein antigen. Infection due to Flu B cannot be ruled out. FluB antigen in the sample may be below the detection limit of the test.Performed By: #### INFLUAB #### [facility] [address] [place] [address] Dr. Mynor Amaya AGNegativeNormalNEGATIVE SEE COMMENTThe [facility]'S HospitalComment on above:Performed By: #### INFLUAB #### [facility] [address] [place] [address] Dr. Mynor Piña AGNegativeNormalNEGATIVE SEE COMMENTThe [facility] on above:Performed By: #### INFLUAB #### [facility] [address] [place] [address] Dr. Mynor YunINTERNAL CONTROLSWithin Normal LimitsNormalWithin Normal Limits The [facility]S HospitalComment on above:Performed By: #### INFLUAB #### [facility] [address] [place] [address] Dr. Mynor Solis SCREENon 04-06-3176FAYHU SCREEN ANegativeNormalNEGATIVEThe [facility]'S HospitalComment on above:Performed By: #### SSCRN #### [facility] [address] [place] [address] Dr. Mynor YunXR SINUSES 3 VIEWS OR GREATERon 76-25-4212GE SINUSES 3 VIEWS OR GREATEREXAMINATION: XR SINUSES 3 VIEWS OR GREATER HISTORY: Vertigo COMPARISON: No relevant comparison available. FINDINGS: MAXILLARY: No mucosal thickening or fluid level. ETHMOID: No mucosal thickening or fluid level. FRONTAL: No mucosal thickening or fluid level. SPHENOID: No mucosal thickening or fluid level. OTHER: Negative. IMPRESSION: Clear paranasal sinuses Electronically authenticated by: KELLIE SMALLS Date: 2022-02-01 09:[address] [place], [place] [address]HAND LEFT 3 VWSon 67-80-6632RLYN LEFT 3 [facility]New[facility] of Rad[facility] [address] [place] [phone] Patient Name: RAKESH VAUGHN : 1975 [...] alignment. Electronically signed: Edgardo Montana. Transcribed by: [email or web address], User Resident: Electronically Signed by: EDGARDO MONTANA @ 12/31/2021 08:55 [facility] SystemComment on above:Order Comment: EvaluateHAND LEFT 3 VWSon 60-41-5046VUQA LEFT 3 [facility]New[facility] of Radiology [address] [place] [phone] Patient Name: RAKESH VAUGHN : 1975 [...] bridging. Electronically signed: Ronaldo Major. Transcribed by: [email or web address], User Resident: Electronically Signed by: RONALDO MAJOR @ 12/09/2021 04:04 [facility] HospitalComment on above:Order Comment: EvaluateHAND LEFT 3 VWSon 08-05-0785SNWZ LEFT 3 [facility]New[facility] of Radiology [address] [place] [phone] Patient Name: RAKESH VAUGHN : 1975 [...] fracture. Electronically signed: Timo Smith. Transcribed by: [email or web address], User Resident: Electronically Signed by: TIMO SMITH @ 11/14/2021 08:02 PMNormalThe [facility]ic[facility] VA Medical CenterComment on above:Order Comment: Views (X-RAY, HAND): PA, Lateral, ObliqueTESTOSTERONE, TOTALon 74-55-8263Oigwffokpacp [Mass/Vol]411 ng/aRClcbyd129-765Iqx [facility] HospitalComment on above:Result Comment: Adult male reference interval is based on a population of healthy nonobese males (BMI <30) between 19 and 39 years old. precious Perdue.al. JCEM 2017,102;7640-4299. PMID: [id number].Performed By: #### TESTTOT #### [facility] [address] [place] [address] Dr. Mynor Sosa AUTO DIFFon 48-34-8299EXVL #0.0 103/ulNormal0.0-0.1[facility] Memorial HospitalComment on above:Performed By: #### CBC #### [facility] [address] [place] [address] Dr. Yilan ChangBasophils/100 WBC (Bld)0.2 %Normal0.2-2.0The [facility] Comment on above:Performed By: #### CBC #### [facility] [address] [place] [address] Dr. Mynor Echols #0.1 103/ulNormal0.0-0.7The [facility]S HospitalComment on above: Performed By: #### CBC #### [facility] [address] [place] [address] Dr. Mynor Escamillaosinophils/100 WBC (Bld)1.2 %Normal0.9-7.0The [facility] Comment on above:Performed By: #### CBC #### [facility] [address] [place] [address] Dr. Mynor Escamillarythrocyte distribution width (RBC) [Ratio]14.3 %Smfzbd59.0-15.0 The [facility]S HospitalComment on above:Performed By: #### CBC #### [facility] [address] [place] [address] Dr. Mynor YunHematocrit (Bld) [Volume fraction]47.3 %Rcedwq06.0-54.0[facility] HospitalComment on above:Performed By: #### CBC #### [facility] [address] [place] [address] Dr. Mynor YunHemoglobin (Bld) [Mass/Vol]15.2 g/vGEooslo10.0-18.0[facility] HospitalComment on above:Performed By: #### CBC #### [facility] [address] [place] [address] Dr. Mynor Perez #0.03 10e3/ulNormal0.00-0.03[facility] HospitalComment on above:Performed By: #### CBC #### [facility] [address] [place] [address] Dr. Mynor Perez %0.3 %Normal0.0-0.5[facility] HospitalComment on above: Performed By: #### CBC #### [facility] [address] [address] [address] Mynor Pierce #1.6 103/ulNormal1.2-3.8[facility] HospitalComment on above:Performed By: #### CBC #### [facility] [address] [place] [address] Dr. Mynor Lombardihocytes/100 WBC (Bld)18.4 %Critically low20.5-60.0[facility] HospitalComment on above:Performed By: #### CBC #### [facility] [address] [place] [address] Dr. Mynor MorleyUAL DIFF REQNONormalThe [facility] HospitalComment on above: Performed By: #### CBC #### [facility] [address] [place] [address] Dr. Mynor Gates (RBC) [Entitic mass]28.8 vqUebzcj97.9-34.0[facility] HospitalComment on above:Performed By: #### CBC #### [facility] [address] [place] [address] Dr. Mynor Gates (RBC) [Mass/Vol]32.1 g/cQYcxwkp64.9-35.2[facility] HospitalComment on above:Performed By: #### CBC #### [facility] [address] [place] [address] Dr. Mynor Gates (RBC) [Entitic vol]89.8 qMLoibzd51.0-94.0[facility] HospitalComment on above:Performed By: #### CBC #### [facility] [address] [place] [address] Dr. Mynor Leon #0.7 103/ulNormal0.3-0.8[facility] HospitalComment on above:Performed By: #### CBC #### [facility] [address] [place] [address] Dr. Mynor Grigsbyocytes/100 WBC (Bld)8.4 %Normal1.7-12.0[facility] Comment on above:Performed By: #### CBC #### [facility] [address] [place] [address] Dr. Mynor ArmijoUT #6.2 103/ulNormal1.4-6.5The [facility] Centerment on above:Performed By: #### CBC #### [facility] [facility] [address] [place] [address] Dr. Mynor Armijoutrophils/100 WBC (Bld)71.5 %Gtkjdz22.0-75.0[facility] on above:Performed By: #### CBC #### [facility] [address] [place] [address] Dr. Mynor YunPlatelet mean volume (Bld) [Entitic vol]8.7 fLCritically low 9.5-13.5The [facility] HospitalComaleda [facility]. [facility] on above:Performed By: #### CBC #### [facility] [address] [place] [address] Dr. Mynor YunPLT263 103/sgEhpkee133-398[facility] on above: Performed By: #### CBC #### [facility] [address] [place] [address] Dr. Mynor YunRBC5.27 106/ulNormal4.70-6.10[facility] on above:Performed By: #### CBC #### [facility] [address] [place] [address] Dr. Mynor YunWBC8.7 103/ulNormal4.0-11.0[facility] on above: Performed By: #### CBC #### [facility] [address] [place] [address] Dr. Mynor YunLIPID PROFILEon 69-16-6763EFLQ-HDL RATIO NORMSEE [facility] on above:Result Comment: 3.3 - 4.4 LOW RISK 4.4 - 7.1 AVERAGE RISK 7.1 - 11.0 MODERATE RISK >11.0 HIGH RISKPerformed By: #### SSCRN #### [facility] [address] [place] [address] Dr. Mynor YunCholesterol [Mass/Vol]129 mg/dLNormal<=200[facility] Comment on above:Performed By: #### SSCRN #### [facility] [address] [address] [address] Mynor YunCholesterol in HDL [Mass/Vol]34 mg/dLPike Community Hospital Comment on above:Performed By: #### SSCRN #### [facility] [address] [address] [address] Mynor YunCholesterol in LDL [Mass/Vol]82.2 mg/dLPike Community HospitalComment on above:Performed By: #### SSCRN #### [facility] [address] [place] [address] Dr. Mynor Luiesterkatja.total/Cholesterol in HDL [Mass ratio]3.8 {ratio} NormalGreene Memorial HospitalComment on above:Performed By: #### SSCRN #### [facility] [address] [address] [address] Mynor Trimble NORMAL> or = 60 mg/dl - LOW CARDIOVASCULAR RISK <40 mg/dl - HIGH CARDIOVASCULAR RISKPike Community HospitalComment on above:Performed By: #### SSCRN #### [facility] [address] [place] [address] Dr. Mynor Tomlinson CALC NORMALSEE BELOWPike Community HospitalComment on above:Result Comment: <100 mg/dl OPTIMAL 100 - 129 mg/dl NEAR OR ABOVE OPTIMAL 130 - 159 mg/dl BORDERLINE HIGH 160 - 189 mg/dl HIGH >190 mg/dl VERY HIGH Performed By: #### SSCRN #### [facility] [address] [address] [address] Mynor YunTriglyceride [Mass/Vol]64 mg/dLNormal<=150[facility] Comment on above:Performed By: #### SSCRN #### [facility] [address] [place] [address] Dr. Mynor YunVLDL CALC12.8 mg/dLNoMcCullough-Hyde Memorial HospitalComment on above: Performed By: #### SSCRN #### [facility] [address] [place] [address] Dr. Mynor Krueger 14(COMP METB)on 90-36-4881Colminn [Mass/Vol]3.8 g/dLNormal 3.5-5.0The [facility] HospitalComment on above:Performed By: #### TSH, LIPID, CMP #### [facility] [address] [place] [address] Dr. Mynor YunAlbumin/Globulin [Mass ratio]0.9 {ratio}NormalThe [facility]'S HospitalComment on above:Performed By: #### TSH, LIPID, CMP #### [facility] [address] [place] [address] Dr. Mynor Meza [Catalytic activity/Vol]76 U/ZUheaga63-527Zhx [facility] HospitalComment on above:Performed By: #### TSH, LIPID, CMP #### [facility] [address] [place] [address] Dr. Mynor Sarabia [Catalytic activity/Vol]49 U/XUgtbgl74-84Vga [facility] HospitalComment on above:Performed By: #### TSH, LIPID, CMP #### [facility] [address] [place] [address] Dr. Mynor Ramírez gap [Moles/Vol]11.2 mmol/LNormalThe [facility] Comment on above:Performed By: #### TSH, LIPID, CMP #### [facility] [address] [place] [address] Dr. Mynor Brady [Catalytic activity/Vol]31 U/DGjlzpg83-25Wxu [facility] HospitalComment on above:Performed By: #### TSH, LIPID, CMP #### [facility] [address] [place] [address] Dr. Mynor YunBilirubin [Mass/Vol]0.5 mg/dLNormal0.2-1.3The [facility] Comment on above:Performed By: #### TSH, LIPID, CMP #### [facility] [address] [place] [address] Dr. Mynor YunCalcium [Mass/Vol]9.0 mg/dLNormal8.4-10.2[facility] Comment on above:Performed By: #### TSH, LIPID, CMP #### [facility] [address] [address] [address] Mynor YunChloride [Moles/Vol]104 mmol/OHbgmoc02-413Mwu [facility] Comment on above:Performed By: #### TSH, LIPID, CMP #### [facility] [address] [address] [address] Mynor YunCO2 [Moles/Vol]30.6 mmol/LCritically high22.0-30.0The [facility] HospitalComment on above:Performed By: #### TSH, LIPID, CMP #### [facility] [address] [place] [address] Dr. Mynor YunCreatinine [Mass/Vol]0.95 mg/dLNormal0.66-1.25The [facility] HospitalComment on above:Performed By: #### TSH, LIPID, CMP #### [facility] [address] [place] [address] Dr. Mynor EscamillaGFR-AF IVORIAN>60Normal>=60The [facility]S HospitalComment on above:Performed By: #### TSH, LIPID, CMP #### [facility] [address] [place] [address] Dr. Mynor EscamillaGFR-NON AF IVORIAN>60Normal>=60The [facility]S HospitalComment on above:Performed By: #### TSH, LIPID, CMP #### [facility] [address] [place] [address] Dr. Mynor YunGlobulin (S) [Mass/Vol]4.3 g/dLNormalThe [facility] HospitalComment on above:Performed By: #### TSH, LIPID, CMP #### [facility] [address] [place] [address] Dr. Mynor YunGlucose [Mass/Vol]104 mg/wOPutstb04-280Obh [facility] Comment on above:Performed By: #### TSH, LIPID, CMP #### [facility] [address] [address] [address] Mynor YunPotassium [Moles/Vol]3.8 mmol/LNormal3.4-5.0The [facility] Comment on above:Performed By: #### TSH, LIPID, CMP #### [facility] [address] [address] [address] Mynor YunProtein [Mass/Vol]8.1 g/dLNormal6.1-8.2The [facility] Comment on above:Performed By: #### TSH, LIPID, CMP #### [facility] [address] [address] [address] Mynor YunSodium [Moles/Vol]142 mmol/LVagqyw032-042RliGreene Memorial Hospital Comment on above:Performed By: #### TSH, LIPID, CMP #### [facility] [address] [place] [address] Dr. Mynor YunUrea nitrogen [Mass/Vol]11.0 mg/dLNormal9.0-20.0[facility] HospitalComment on above:Performed By: #### TSH, LIPID, CMP #### [facility] [address] [place] [address] Dr. Mynor Crow nitrogen/Creatinine [Mass ratio]11.6 mg/mgNoMcCullough-Hyde Memorial HospitalComment on above:Performed By: #### TSH, LIPID, CMP #### [facility] [address] [place] [address] Dr. Mynor Canela 45-01-1659PQA6.612 uIU/mLNormal0.470-4.680[facility] HospitalComment on above:Performed By: #### TSH, LIPID, CMP #### [facility] [address] [place] [address] Dr. Mynor HARVEY BELOWPike Community HospitalComment on above: Result Comment: <0.34 UIU/ml HYPERTHYROID 0.34-5.60 UIU/ml EUTHYROID >5.60 UIU/ml HYPOTHYROIDPerformed By: #### TSH, LIPID, CMP #### [facility] [address] [address] [address] Mynor Yun Vital Signs Date TimeVital SignValuePerforming SijadfexoEptohask84-97-6938 09:55-0400Body .3 Natan Potter MD Work Phone: [facility]08-15-2025 09:55-0400Body mass index (BMI) [Ratio]56.74 kg/c0YslmaNury Potter MD Work Phone: [facility]08-15-2025 09:55-0400Body qccueh912.27 kgNury Potter MD Work Phone: [facility]07-10-2025 11:42-0400Body yqdnku804.26 cmJodi Torsten ARTIST MODEL-C Work Phone: [phone] [place], [place] 8750507-10-2025 11:42-0400 Diastolic blood mm[Hg]Effie Torsten ARTIST [employer]DEL[employer] Work Phone: [phone] [place], [place] 8750507-10-2025 11:42-0400 Heart rate79 /minJodi Torsten ARTIST MODEL-C Work Phone: [phone] [place], [place] 8750507-10-2025 11:42-0400 Respiratory rate12 /minJodi Torsten ARTIST MODEL-C Work Phone: [phone] [place], [place] 8750507-10-2025 11:42-0400 Systolic blood wjysxlai322 mm[Hg]Effie Torsten ARTIST MODEL[employer]C Work Phone: [phone] [place], [place] 8750506-03-2025 10:00-0400 Body mass index (BMI) [Ratio]56.85 kg/r9Tbrumriy [facility] 02-10-2025 10:00-0400Body ysxvos127.63 kgSpenserjohnson regional medical centeringrid [facility] 01-23-2025 09:34-0400Body lqignj945.3 Natan Potter MD Work Phone: [facility]05-16-2025 09:34-0400Body mass index (BMI) [Ratio]56.88 kg/q7PvxaoNury Potter MD Work Phone: [phone] [place], [place] 6017705-16-2025 09:34-0400Body ulqzgk188.73 kgNury Potter MD Work Phone: [phone] [place], [place] 6017705-16-2025 09:34-0400Diastolic blood ygywysyo229 mm[Hg]Nury Potter MD Work Phone: [phone] [place], [place] 6017705-16-2025 09:34-0400Systolic blood vryrsbqj625 mm[Hg]Nury Potter MD Work Phone: [phone] [place], [place] 6017705-01-2025 09:00-0400Body mass index (BMI) [Ratio]55.17 kg/l2EslzxbndSanford Medical Center [place]05-01-2025 09:00-0400Body gifxpc596.9 kgSanford Medical Center [place]04-01-2025 09:00-0400Body jsnmip261.1 cmSanford Medical Center [place]2025 09:48-0400Body .1 Natan Potter MD Work Phone: [phone] [place], [place] 6017703-21-2025 09:48-0400Body mass index (BMI) [Ratio]55.17 kg/b8ZdndiNury Potter MD Work Phone: [phone] [place], [place] 6017703-21-2025 09:48-0400Body dxhhoj603.9 kgNury Potter MD Work Phone: [phone] [place], [place] 6017702-26-2025 10:17-0500Body ekrdmi391.3 cmAnthoelaine Delgadilloher DPM Work Phone: [phone] CenterFgaagsiybl33-51-9043 10:17-0500Body mass index (BMI) [Ratio]55.38 kg/o6Oycchhh Rusher DPM Work Phone: [phone] CenterCwwbfhpicg25-91-4572 10:17-0500Body vywlhk984.1 kgAnthony Rusher DPM Work Phone: [facility] CenterBxunovgwfp73-15-3745 10:31-0500Body .3 cmAnttyrone Conte DPM Work Phone: [phone] CenterNmdgfyfpyz59-22-4708 10:31-0500Body mass index (BMI) [Ratio]55.38 kg/u9EkrofoePedro Conte DPM Work Phone: [facility] CenterQqpmrmwqnq29-55-8916 10:31-0500Body satdef638.1 kgAnthsanjay Conte DPM Work Phone: [facility] Healthcare Encounters Encounter DateEncounter TypeCare ProviderFacilityStart: 96-11-1899prezbsvwpkSqvi L SchwabFacility:FT Bellevtart: 06-30-2025 End: 27-68-0791kpwiiqegkgYorr L SchwabFacility:FT BellevueStart: 06-18-2025 End: 83-80-1445ddgkvfqnwnEthh L SchwabFacility:[facility]esueStart: 06-05-2025 End: 03-82-2959DdorwmVioer N Pratt MD Work Phone: [facility] SurgeryComment on above: Low 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Start: 04-24-2025 End: 63-52-2475Ocmnch outpatient visit 25 minutesNury Potter MD Work Phone: [facility] SurgeryComment on above: Insulin resistance (Primary Dx); Incisional hernia, without obstruction or gangrene; Low 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; Morbid obesity with BMI of 50.0-59.9, adult ([facility]Start: 04-24-2025 End: 44-88-5516tquseekhqbGGWFI N PRATTOhioHealth Shelby Hospital Ambulatory PPGStart: 03-19-2025 End: 07-10-8673ftlgufipspOumqDagoberto FLORES Work Phone: [facility] Work Phone: Start: 03-19-2025 End: 30-41-8223Cpxazdo encounter procedureJose Carlos Whitt DO-FPG [facility] Work Phone: Start: 03-16-2025 End: 92-87-5809Awyoze Alex Potter MD Work Phone: [facility] Surgery-BariatricComment on above:Low 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Start: 02-10-2025 End: 93-47-9182Lbeufbsofcky consultation with [facility] Centeringrid [place]ie[place] [facility] DieticiansComment on above:Dietary counseling and surveillance (Primary Dx); Morbid obesity ([facility])Start: 02-10-2025 End: 29-46-3148oguzjmospbOSSXSSOTBellevue Hospitaltart: 01-23-2025 End: 03-84-3540Hponfw outpatient visit 25 minutesNury Potter MD Work Phone: [facility] SurgeryComment on above: Insulin resistance (Primary Dx); Morbid obesity ([facility]); Low 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Start: 01-23-2025 End: 95-09-2764ofphjqeexbUGLWC N [facility] WAUWATOSABRIEJeff Davis HospitalStart: 01-08-2025 End: 08-78-6154ljzlfeemhbGLISAJKGBellevue Hospitaltart: 01-08-2025 End: 76-25-1189Bhowubtnnybj consultation with [facility] Centeringrid [place] [facility] DieticiansComment on above:Dietary counseling and surveillance (Primary Dx); Morbid obesity ([facility]); History of sleeve gastrectomyStart: 12-29-2024 End: 03-99-3905rnoijffxqtRepkpphGallito Buckner MDFacility:PM [place] Start: 12-09-2024 End: 61-99-9863Ogexhavndjnh consultation with [facility] Centeringrid [place] [facility] DieticiansComment on above:Dietary counseling and surveillance (Primary Dx); Morbid obesity ([facility]); History of sleeve gastrectomyStart: 12-09-2024 End: 82-41-2521aukkztlhcbISKDYTVCBluffton Hospitaltart: 12-01-2024 End: 98-40-6403mecblzhsojIVWK N [facility] Hospitaltart: 11-28-2024 End: 40-97-2554Goopkt outpatient new 45 minutesNury Potter MD Work Phone: [facility] General SurgeryComment on above: History of sleeve gastrectomy (Primary Dx); Morbid obesity with BMI of 50.0-59.9, adult ([facility])Start: 11-28-2024 End: 06-57-8712ybrosinegjSNBKJKings Park [facility] Ambulatory PPGStart: 11-26-2024 End: 00-37-1301deunhvrwtyIQTWZTB S RUSHERNot AvailableStart: 11-05-2024 End: 75-79-5743Fuvozi flowsheetAnthony S Rusher DPM Work Phone: [facility]oms PODIATRYStart: 11-05-2024 End: 59-32-1195Cnupmu flowsheetAnthony S Rusher DPM Work Phone: n[facility] PODIATRYStart: 11-05-2024 End: 47-31-1421gowkqhgqkdMRWGUOH S RUSHERNot AvailableStart: 11-05-2024 End: 82-56-0031Pkffqh follow up visit related to original pxAnthony S Rusher DPM Work Phone: noms PODIATRYComment on above:Valgus deformity, not elsewhere classified, right ankle (Primary Dx); Valgus deformity, not elsewhere classified, left ankle; Instability of left foot joint; Instability of right foot joint; Leg length discrepancy; Posterior tibial tendon dysfunction, bilateralStart: 10-08-2024 End: 42-84-3829Qndjmt flowsheetAnthony S Rusher DPM Work Phone: [facility] PODIATRYStart: 10-08-2024 End: 94-27-3543Slcmew flowsheetAnthony S Rusher DPM Work Phone: noms PODIATRYStart: 10-08-2024 End: 25-96-9018Rbimhemax encounterEmily MERAZ PODIATRYComment on above:Foot OrthoticsStart: 10-08-2024 End: 65-26-3732Qxgkcp outpatient new 30 minutesAnthsanjay Conte DPM Work Phone: NOGP PODIATRYComment on above:Valgus deformity, not elsewhere classified, right ankle (Primary Dx); Valgus deformity, not elsewhere classified, left ankle; Instability of left foot joint; Instability of right foot joint; Leg length discrepancyStart: 10-08-2024 End: 65-74-1188lpkvpuuymtEPLMQLD Melissa CONTEHay AvailableStart: 09-01-2024 End: 33-45-8735pbteaqmvyjNvlcarn Vytautas Giedraitis MDFacility:PM [place] Start: 07-21-2024 End: 63-94-3839rlxdrxyreoHellarq Vytautas Giedraitis MDFacility:[facility] [place] Start: 06-30-2024 End: 03-33-8713mhahqxsfbgAbfmljt Vytautas Giedraitis MDFacility:[facility] [place] Start: 03-10-2024 End: 47-39-6060ytgawgxfzrNrugiak Vytautas Giedraitis MDFacility:PM [place] Start: 02-25-2024 End: 37-36-2621qhvxtkgqcdUrjzjsj Vytautas Giedraitis MDFacility:[facility] [place] Start: 02-18-2024 End: 35-60-7004wblomviaqoIqmcaxo Vytautas Giedraitis MDFacility:[facility] [place] Start: 01-23-2024 End: 06-99-9504ttlgcpqrrcVXLR [facility] Centertart: 08-23-2023 End: 97-77-7781Vmq Drop offJodi L Torsten [facility] Start: 03-19-2023 End: 63-71-7586Yrt Drop offJodi L Torsten [facility] Start: 07-28-2022 End: 19-93-0164abnyfuhjfnRA KIM E KNIGHTFacility:Q0Kehnu: 02-01-2022 End: 77-77-3731ekwkvfrznfLJ LULU Tejeda IVANJAMALFacility:R1Yzpuz: 59-52-0449Xseyjluis for general adult medical examination without abnormal findingsDR LULU BLANK [facility] Hospitaltart: 11-11-2021 End: 56-07-4288mtmgemewzqCV KIM Nikhil BLANKFacility:H7Sbtww: 11-11-2021 End: 14-94-2628Pamztdgbl for general adult medical examination without abnormal findingsDR LAWSON Nikhil SHEILAFacility:G6Aviiw: 11-10-2021 End: 30-11-3899snuzwukfwiZASKATNJ EBERLYFacility:H1 Procedures DateProcedureProcedure DetailPerforming ClinicianStart: 75-43-2922Pdkrap-up visitFollow-upBRCOLUMBUS REGIONAL [facility] Jono Sarmiento Comment on above:2009 Plan of Treatment DateCare ActivityDetailAuthorStart: 48-57-1924Pmclj BMI ScreeningAdult BMI ScreeningFirelands Regional Medical Center SystemStart: 27-21-8463Pdxdrpt ScreeningTobacco ScreeningFirelands Regional Medical Center SystemStart: 64-17-3008Xlgnz BMI ScreeningAdult BMI ScreeningFirelands Regional Medical Center SystemStart: 90-78-6675Rvdkc BMI ScreeningAdult BMI ScreeningFirelands Regional Medical Center SystemStart: 51-38-2942Vwhhlmz ScreeningTobacco ScreeningFirelands Regional Medical Center SystemStart: 25-14-2769Yqequ BMI ScreeningAdult BMI ScreeningFirelands Regional Medical Center SystemStart: 99-95-6661Ccirk BMI Follow Up PlanAdult BMI Follow Up PlanFirelands Regional Medical Center SystemStart: 21-45-5390Szcbq BMI Screening Adult BMI ScreeningFirelands Regional Medical Center SystemStart: 07-25-2025 End: 15-69-1992Fipea metabolic 2000 panel - Serum or PlasmaBasic Metabolic Panel Lab Routine Low 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 Expected: 07/25/2025 (Approximate), Expir es: 04/24/2026[facility] SystemComment on above:Expected: 07/25/2025 (Approximate), Expires: 04/24/2026Start: 07-25-2025 End: 10-35-8132DHV W Auto Differential panel - BloodCBC auto differential Lab Routine Low 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 Expected: 07/25/2025 (Approximate), Expires: 04/24/2026[facility] CenterComment on above:Expected: 07/25/2025 (Approximate), Expires: 04/24/2026Start: 07-25-2025 End: 49-11-2467Cbfvshc, Free and Total, SerumInsulin, Free and Total, Serum Lab Routine Low 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 Expected: 07/25/2025 (Approximate), Expires: 04/24/2026[facility] CenterComment on above:Expected: 07/25/2025 (Approximate), Expires: 04/24/2026Start: 07-25-2025 End: 92-81-0324Fcnjjjnyo specific antigen screenProstatic specific antigen screen Lab Routine Low 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 Expected: 07/25/2025 (Approximate), Expires: 04/24/2026[facility] CenterComment on above:Expected: 07/25/2025 (Approximate), Expires: 04/24/2026Start: 07-25-2025 End: 99-34-7463Frrdopbffbsx, Total and Free, STestosterone, Total and Free, S Lab Routine Low 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 Expected: 07/25/2025 (Approximate), Expires: 04/24/2026[facility] CenterComment on above:Expected: 07/25/2025 (Approximate), Expires: 04/24/2026Start: 07-24-2025 End: 40-24-7714Dxzqevt encounter /14/2025 9:00 AM EST Office Visit [facility] [address], [id number] Nury Potter MD [address] [place] [address] [facility] SurgeryStart: 05-11-2025 COVID-19 Vaccine ( season)COVID-19 Vaccine ( season) [facility]: 99-43-3079Qzvvpxavu vaccinationInfluenza Vaccine [facility] Uniontart: 05-01-2025 End: 37-57-0667LA Abdomen and Pelvis W contrast IVCT abdomen and pelvis with contrast Imaging Routine Incisional hernia, without obstruction or gangrene Expected: 05/01/2025 (Approximate), Expires: 04/24/2026[employer] Work Phone: Comment on above:Expected: 05/01/2025 (Approximate), Expires: 04/24/2026Start: 04-25-2025 End: 28-14-0735Bislc metabolic 2000 panel - Serum or PlasmaBasic Metabolic Panel Lab Routine Insulin resistance Expected: 04/25/2025 (Approximate), Expires: [facility] CenterComment on above:Expected: 04/25/2025 (Approximate), Expires: 01/23/2026Start: 04-25-2025 End: 34-19-1561Yiikciy, Free and Total, SerumInsulin, Free and Total, Serum Lab Routine Insulin resistance Expected: 04/25/2025 (Approximate), Expires: 01/23/2026[facility] CenterComment on above:Expected: 04/25/2025 (Approximate), Expires: 01/23/2026Start: 04-25-2025 End: 58-17-6181Chcytonlhmqd, Total and Free, STestosterone, Total and Free, S Lab Routine Low 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 Expected: 04/25/2025 (Approximate), Expires: 01/23/2026[employer] Work Phone: Comment on above:Expected: 04/25/2025 (Approximate), Expires: 01/23/2026Start: 04-24-2025 End: 23-49-6926Hrfptnm encounter czkzufjzn52/15/2025 10:00 AM EDT Office Visit [facility] [address] [place] [address] Nury Potter MD [address] [place] [address] [facility] SurgeryStart: 02-10-2025 End: 91-92-4542Epxopccllkui consultation with hufszsr0802/10/2025 10:00 AM EDT Telemedicine [facility] Dieticians [address] [facility] [address] [place] [phone] Iris Noriega [facility] DieticiansStart: 01-23-2025 End: 70-94-6792Swfamyo encounter eumpscpxp64/16/2025 9:30 AM EDT Office Visit [facility] [address], [id number] Nury Potter MD [address] [facility] [place] [address] [facility] SurgeryStart: 01-08-2025 End: 26-81-9794Uydbxulhermp consultation with bxisvhm9501/08/2025 9:00 AM EDT Telemedicine [facility] Dieticians [address] [facility] [address] [place] [phone] Iris Noriega [facility] DieticiansStart: 12-09-2024 End: 59-38-2776Ocbqxcycvxjr consultation with qtbmcyr1912/09/2024 9:00 AM EDT Telemedicine [facility] Dieticians [address] [facility] [address] [place] [phone] Iris Noriega [facility] DieticiansStart: 11-11-2024 End: 59-28-9419Ohlmjcb encounter frznodiow68/04/2025 4:45 PM EST Office Visit LEANDRO JIMENEZ [address] [place] [phone] Lanny Guthrie DO [address] [place] [address] LEANDRO GARCIAtart: 11-05-2024 End: 51-48-8327Xhcaglj encounter zldnxhjyy66/26/2025 10:00 AM EST Office Visit [facility] [address] [place] [phone] Pedro Conte, DPM [address] [place] [address] [facility] PODIATRYStart: 10-08-2024 End: 62-00-8609Drucmne encounter /29/2025 10:45 AM EST Office Visit [facility] [address] [place] [phone] Pedro Conte, DPM [address] [place], [place] [phone] ArrivedNOCOX BRANSON PODIATRYComment on above:ArrivedStart: 41-98-3295RJSLQ-19 Vaccine ( season)COVID-19 Vaccine ()[facility] SystemStart: 03-78-5857HZgT,Tdap and Td Vaccines (1 - Tdap)DTaP,Tdap and Td Vaccines (1 - Tdap)[facility] SystemStart: 15-48-8168Wtlxq BMI Follow Up PlanAdult BMI Follow Up PlanFirelands Regional Medical Center SystemStart: 1989 Depression ScreeningDepression ScreeningFirelands Regional Medical Center SystemStart: 1989 Tobacco ScreeningTobacco ScreeningFirelands Regional Medical Center SystemStart: 1977 Screening [facility] malignant [facility] End: 19-79-0180SKZ W Auto Differential panel - BloodCBC auto differential Lab Routine History of sleeve gastrectomy 1 Occurrences starting 11/28/2024 until 11/28/2025[facility] Work Phone: Comment on above:1 Occurrences starting 11/28/2024 until 11/28/2025 End: 58-26-1849VKG W Auto Differential panel - BloodCBC auto differential Lab Routine Low 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 1 Occurrences starting 03/16/2025 until 0 03/16/2026[facility] Work Phone: Comment on above:1 Occurrences starting 03/16/2025 until 03/16/2026 End: 80-09-7499Zgxaaktueadoyy vitamin b-12Vitamin B12 Lab Routine History of sleeve gastrectomy 1 Occurrences starting 11/28/2024 until 11/28/2025[facility] CenterComment on above:1 Occurrences starting 11/28/2024 until 11/28/2025 End: 78-28-4912Dfpyshwkjy A1c/Hemoglobin.total in BloodHemoglobin A1c Lab Routine History of sleeve gastrectomy 1 Occurrences starting 11/28/2024 until 11/28/2025[facility] SystemComment on above:1 Occurrences starting 11/28/2024 until 11/28/2025 End: 94-02-3264Lwmvplw, Free and Total, SerumInsulin, Free and Total, Serum Lab Routine History of sleeve gastrectomy 1 Occurrences starting 11/28/2024 until 11/28/2025[facility] CenterComment on above:1 Occurrences starting 11/28/2024 until 11/28/2025 End: 79-70-5073Kmsd [Mass/volume] in Serum or PlasmaIron Lab Routine History of sleeve gastrectomy 1 Occurrences starting 11/28/2024 until 11/28/2025[facility] CenterComment on above:1 Occurrences starting 11/28/2024 until 11/28/2025 End: 25-50-0388Zmdfm panelLiver panel Lab Routine History of sleeve gastrectomy 1 Occurrences starting 11/28/2024 until 11/28/2025[facility] CenterComment on above:1 Occurrences starting 11/28/2024 until 11/28/2025 End: 61-54-0624Bnvkoysnaam Hormone, intactParathyroid Hormone, intact Lab Routine History of sleeve gastrectomy 1 Occurrences starting 11/28/2024 until 11/28/2025[facility] CenterComment on above:1 Occurrences starting 11/28/2024 until 11/28/2025 End: 73-26-8353TNF w/ RFLX to Free PSAPSA w/ RFLX to Free PSA Lab Routine Low 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 1 Occurrences starting 03/16/2025 until 03/16/2026[facility] CenterComment on above:1 Occurrences starting 03/16/2025 until 03/16/2026 End: 58-45-0195Aelbryvjbrcn, Total and Free, STestosterone, Total and Free, S Lab Routine History of sleeve gastrectomy 1 Occurrences starting 11/28/2024 until 11/28/2025[facility] SystemComment on above:1 Occurrences starting 11/28/2024 until 11/28/2025 End: 38-56-7726Reqgroqjfjv [Units/volume] in Serum or PlasmaTSH Lab Routine History of sleeve gastrectomy 1 Occurrences starting 11/28/2024 until 11/28/2025 [facility] SystemComment on above:1 Occurrences starting 11/28/2024 until 11/28/2025 End: 69-47-1683Wnweikf D 25 hydroxyVitamin D 25 hydroxy Lab Routine History of sleeve gastrectomy 1 Occurrences starting 11/28/2024 until 11/28/2025[facility] SystemComment on above:1 Occurrences starting 11/28/2024 until 11/28/2025 Immunizations Immunization DateImmunizationNotesCare FhsuuwhpEikizwrl56-28-3382hdyrjoyum, seasonal, injectable, preservative freeAnthony Rusher DPM Work Phone: [facility] CenterChvwbwteil69-21-2440otadaukuu virus vaccine, unspecified formulationIris Noriega [facility]09-21-2023 influenza virus vaccine, unspecified formulationJodi Torsten [phone]-XgcheOhiohealth Southeastern Medical Center 60-02-9801djtnqyzbm, injectable, quadrivalent, preservative freeAnthony Rusher DPM Work Phone: [facility] CenterCewwvublqq93-34-2860cgyqcgiff virus vaccine, unspecified formulationJodi Torsten [phone]-ZostvLima [facility]09-28-2022 influenza, injectable, quadrivalent, preservative freeAnthony Rusher DPM Work Phone: [facility] CenterHbjvtrryxy00-64-4450WHWH-FiU-1 (COVID-19) mRNA BNT-162b2 vaxJodi Torsten [phone]-YimmyLima Memorial Hospital02-12-2021 SARS-CoV-2 (COVID-19) mRNA BNT-162b2 vaxJocolleen Torsten [phone]-GsxzbLima Memorial Hospital07-01-2019 pneumococcal polysaccharide vaccine, 23 valentJodi Torsten [phone]-NysmzRegency Hospital Companyue12-09-2009novel ypgfycapa-H3Z3-90, preservative-free, injectableAnthony Rusher DPM Work Phone: [facility] Payers DatePayer CategoryPayerPolicy [id number] [id number] Regional Medical CenterBC [id number]0-10-4016LvskLea Regional Medical Center Managed Care - [id number].9.674424.505.01453-27-4817Zlionyf [id number] 2013Medicare1977Unknown [id number] 20.1.224307.3.57[id number] 20.1.844318.3.57[id number] 2.16.840.1.862378.3.57[id number] 2.16.840.1.947079.3.57[id number] 2.16.840.1.723232.3.579.[id number] 2..840.1.625636.3.57[id number] 2.16.840.1.672952.3.57[id number] 2.840.1.412702.3.57[id number] 2.840.1.829527.3.579.[id number] 2.840.1.947578.3.57[id number] 2.840.1.779717.3.57[id number] 2..840.1.186563.3.57[id number] 2.840.1.662127.3.579.[id number] 2.16840.1.023790.3.579.[id number] 2.840.1.942455.3.57[id number] 2.16840.1.698886.3.57[id number] 2.840.1.482795.3.579.[id number] 2.16.840.1.733423.3.579.2.713948-55-4438Dthxoel332727014 2.16.840.1.040806.3.579.2.662199-16-9253Lsslasz506783959 2.16.840.1.559131.3.579.2.467648-52-3981Aknysjy856247860 2.16.840.1.549623.3.579.2.559068-11-0800Pfzelzi572399887 2.16.840.1.944460.3.579.2.21[id number] 2.16.840.1.587627.3.57[id number] 2..840.1.724500.3.579.[id number] 2.16.840.1.225648.3.579.2.32974-60-7201Zylqhvg14006672 2..840.1.368008.3.57[id number] 2..840.1.683658.3.579.2.727 [id number] 1960Unknown [id number] Social History DateTypeDetailFacilityStart: 03-19-2023 End: 78-99-5371Muavhhf smoking statusEx-smoker (finding)[facility] CompanyueTobacco smoking statusNeverWilson Memorial HospitalevueStart: 02-19-2019 End: 00-11-1200Bjr Assigned At BirthMalOur Lady of Mercy Hospital - Andersontart: 94-57-7709Sggbmfo smoking status NHISNever smoked tobaccoNOMS HealthcareStart: 04-05-2023 End: 61-35-0818Rioruhx use and exposureSmokeless tobacco non-userNOMS Healthcare Start: 10-08-2024 End: 21-14-3991Ltjzeodff beverage intakeEx-drinker (finding)[facility] Start: 02-19-2019 End: 66-80-8895Voroyjv of Social functionNOMS HealthcareStart: 20-82-3112Pux assigned at [facility] hospitalNot on fileNOWA HealthcareTobacco smoking status NHISTobacco smoking consumption unknownFirelands Regional Medical Center SystemStart: 20-11-1504EzaZims (finding)[facility] SystemHistory of tobacco useCurrent smokerFirelands Regional Medical Center SystemHistory of tobacco useCigarette SmokerFirelands Regional Medical Center SystemStart: 01-23-2025 End: 61-07-8453Qmibllfmo beverage intakeNot AskedFirelands Regional Medical Center SystemStart: 78-75-7456Jkuxjha CommentSOCIALLYPSumma Health [facility] SystemStart: 87-71-5299Rgd Assigned At [facility] Clinical Notes 11-10-2021 to 04-24-2025 Note Date & MvfdJsubUwqxjttq78-17-2928 History of Present illness Narrative* Nury Potter MD - 04/24/2025 10:00 AM EDT Bariatric Surgery Progress Note Subjective The patient is a 6-year-old male who had a sleeve gastrectomy in [place] in 2009 that was complicated by bowel [...] likely need to return to [facility] where it was originally repaired due to [...] 3 months with labs documented in this encounterOhioHealth Grant Medical CenterQuestetra Okfcjl01-03-5882 History of Present illness Narrative* DEION Lerma - 02/10/2025 10:00 AM EDT Bariatric Medical Nutrition Therapy Nutritional Assessment/Education Weight check Video Visit via Real-time Synchronous Audiovisual Provider Location: [facility] [address] [place] [phone] Patient Location: Patient's home Video Visit Consent [...] that there are some limitations compared to codf-xa-bwag evaluations. The patient consented to the presence [...] 958 End time: 1021 documented in this encounterOhioHealth Grant Medical CenterProfessores de Plantão Corewell [facility] Greenville HospitalVanymh82-98-6496 Instructions* Patient Instructions* DEION Lerma - 02/10/2025 10:00 AM EDT Read the [facility] Bariatric Guide. If you re looking for general health and wellness resources, please visit [facility] [email or web address]. 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, however he does not have a formal [...] 3 months with labs documented in this encounterGifford Medical CenterMapluck Lnaewz05-15-6882 History of Present illness Narrative* Iris Noriega, LD - 01/08/2025 9:00 AM EDT Bariatric Medical Nutrition Therapy Nutritional Assessment/Education Session: Post-op #2 Video Visit via Real-time Synchronous Audiovisual Provider Location: [facility], [facility]PARTMENT OF [facility] [address] [place] [phone] Patient Location: Patient's home Video Visit [...] that there are some limitations compared to nguy-oc-xfdi evaluations. The patient consented to the presence [...] with veggies, ham and turkey with regular nepali dressing with a cheeseburger lucas (no bun), [...] iron daily or 1 vitamin daily. 2) 8728-3047 mg calcium in divided doses (2x/day) for sleeve and gastric bypass, 1238-4293 mg in divided doses (3x/day) for SADS [...] 910 End time: 939 documented in this encounterOhioHealth Grant Medical CenterComputer Software Innovations05-01-2025 Instructions* Patient Instructions* DEION Lerma - 01/08/2025 9:00 AM EDT Read the [facility] Bariatric Guide. If you re looking for general health and wellness resources, please visit [facility] [email or web address]. documented in this encounterOhioHealth Grant Medical CenterQuestetra Czqnqj25-53-3828 History of Present illness Narrative* DEION Lerma - 12/09/2024 9:00 AM EDT Bariatric Medical Nutrition Therapy Nutritional Assessment/Education Session: Post-op Rakesh Vaughn is a 49 y.o. male who presents for medical nutritional therapy after weight loss surgery. Video Visit via Real-time Synchronous Audiovisual Provider Location: [facility]PARTMENT OF [facility] [address] [place] [phone] Patient Location: Waiting room in [place] (for father's surgery) Video Visit Consent Statement: [...] that there are some limitations compared to wgyu-fy-dyep evaluations. The patient consented to the presence of additional virtual and/or in-person participants. We elected to proceed. Barrier learning assessment: Yes Weight: unable to get one Rakesh had a sleeve gastrectomy in [place] in 2009. He received minimal nutrition information [...] iron daily or 1 vitamin daily. 2) 6889-7770 mg calcium in divided doses (2x/day) for sleeve and gastric bypass, 7653-7195 mg in divided doses (3x/day) for SADS [...] all discussed has been provided within the [facility] Bariatric Guide. My contact name and number provided if questions or concerns arise. Nutrition Monitoring: To monitor weight to show progress. Start time: 0904 End time: 0950 documented in this encounterUniversity Hospitals Ahuja Medical Center04-01-2025 Instructions* Patient Instructions* DEION Lerma - 12/09/2024 9:00 AM EDT Read the [facility] Bariatric Guide. If you re looking for general health and wellness resources, please visit [facility] [email or web address]. documented in this encounterUniversity Hospitals Ahuja Medical Center2025 History of Present illness Narrative* Nury Potter MD - 11/28/2024 9:[address] [facility] GENERAL SURGERY [facility] [phone] [facility] SURGICAL WEIGHT LOSS PROGRAM INITIAL EVALUATION Patient: Rakesh Vaughn Service Date: 11/28/2024 Chief complaint: Wants help with weight loss 15 years after sleeve gastrectomy in [place] The patient is a 49 y.o. year [...] The patient had a sleeve gastrectomy in [place] in 2009. Two days after surgery he began having fever and chills and after workup was found to have an intra- abdominal abscess. He was seen at the [facility] by Crystal Parsons MD and underwent an [...] week based on the recommendations from the [employer]. He is not eager to alegre into another surgery given his past experience. 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 [x] No [] Yes Do you have [...] turgor normal, no rashes or lesions Neurologic: commodity broker intact, normal strength. Alert and oriented. Follows [...] to ensure the accuracy of this automated labels molder, some errors in labels molder may have occurred. documented in this encounterGifford Medical CenterMapluck Kvshzt73-73-7344 History of Present illness Narrative* Pedro Conte [...] Allergic rhinitis Autonomic dysfunction COVID-19 03/2020 Depression ([facility]) ETD (Eustachian tube dysfunction), bilateral H/O gastric [...] understanding. Pedro Conte DPM documented in this encounterNOSaint Francis Medical CenterXuqvccszki26-06-9933 Telephone encounter Note* Telephone Encounter - Donald Monson - 10/21/2024 4:48 PM EST Kuho-eg-bhrm is scheduled for October 28 at 4:45 pm. They will call our office for the meeting [facility] Nlirwzgvin41-33-1814 Miscellaneous Notes* Telephone Encounter - Donald Monson - 10/21/2024 4:48 PM EST Ixrr-ce-zadk is scheduled for October 28 at 4:45 [...] precert was approved. Thanks documented in this encounterMissouri Delta Medical CenterQafzrrdyqd22-72-6293 Telephone encounter Note* Telephone Encounter - Emily [...] And if precert was approved. Thanks [facility] [id number] History of Present illness Narrative* Pedro Conte, DPM - 10/08/2024 10:45 AM EST Images from the original note were not included. Subjective Patient ID: Rakesh Vaughn is a 49 y.o. male who presents for Foot Orthotics (49 yo ARTIST MODEL presents todayinquiring about getting new orthotics. Pt [...] understanding. Pedro Conte DPM documented in this encounterMissouri Delta Medical CenterWepaczhxqc41-84-2822 Evaluation + Plan note Diagnostic Tests Pending * Testosterone Level Total 08/23/23 [facility]03-03-2022 NotePROCEDURE: XR HAND LT MIN 3V COMPARISON: [...] Electronically authenticated by: KELLIE SMALLS Date: 2021-11-10 13:16[facility]Evaluation + Plan note Future Appointments Appointment Date:04/23/2023 11:00:00 AM Scheduled Provider:Effie Muhammad Location:[facility]* Diagnosis Valgus deformity, not elsewhere classified, right ankle- Primary Valgus deformity, not elsewhere classified, left ankle Instability of left foot joint Instability of right foot joint Leg length discrepancy Unequal leg length (acquired) documented in this encounter [facility] CenterEvaluation note* Diagnosis Valgus deformity, not elsewhere classified, right ankle- Primary Valgus deformity, not elsewhere classified, left ankle Instability of left foot joint Instability of right foot joint Leg length discrepancy Unequal leg length (acquired) Posterior tibial tendon dysfunction, bilateral documented in this encounter [facility] HealthcareEvaluation note* Diagnosis History of sleeve gastrectomy- Primary Morbid obesity with BMI of 50.0-59.9, adult ([facility]) documented in this encounter [facility] SystemEvaluation note* Diagnosis Dietary counseling and surveillance- Primary Morbid obesity ([facility]) Morbid obesity History of sleeve gastrectomy documented in this encounter [facility] SystemEvaluation note* Diagnosis Dietary counseling and surveillance- Primary Morbid obesity ([facility]) Morbid obesity History of sleeve gastrectomy documented in this encounter [facility] SystemEvaluation note* Diagnosis Insulin resistance- Primary Other abnormal glucose Morbid obesity ([facility]) Morbid obesity Low 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 documented in this encounter [facility] SystemEvaluation note* Diagnosis Dietary counseling and surveillance- Primary Morbid obesity (CMS-HCC) Morbid obesity documented in this encounter [facility] SystemEvaluation note* Diagnosis Low 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 documented in this encounter [facility] SystemEvaluation note* Diagnosis Onset Date Resolution Status Admit Date Pre-employment examination acuteJuly 2024 10:52am [facility] Work Phone: Evaluation note* Diagnosis Insulin resistance- Primary Other abnormal glucose Incisional hernia, without obstruction or gangrene Low 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 Morbid obesity with BMI of 50.0-59.9, adult (CMS-HCC) documented in this encounter [facility] SystemEvaluation note* Diagnosis Low 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 documented in this encounter [facility] CenterHospital course Narrative No data available for this section [facility] Discharge instructions No data available for this section [facility] NorthInstructionsNot on filedocumented in this encounter [facility] SystemInstructionsNot on filedocumented in this encounter [facility] SystemInstructionsNot on filedocumented in this encounter [facility] SystemInstructionsNot on filedocumented in this encounter [facility] SystemInstructionsNot on filedocumented in this encounter [facility] SystemProgress note No data available for this section [facility] NorthReason for referral (narrative)No reason for referral information availableFirelands Regional Medical Center Work Phone: Summary Purpose Family History No [...] Reason for Visit Chief Complaint Admit Date Harpooner Physical March 19, 2025 10:5 2am Reason [...] section and content) DATE CREATED AUTHOR 01/28/2022 [facility] DATE CREATED AUTHOR AUTHOR'S ORGANIZ ATION 08/10/2022 [facility] DATE CREATED AUTHOR AUTHOR'S ORGANIZ ATION 01/28/2024 [facility] DATE CREATED AUTHOR AUTHOR'S ORGANIZ ATION 11/28/2024 [facility] DATE CREATED AUTHOR AUTHOR'S ORGANIZ ATION 12/07/2024 [facility] DATE CREATED AUTHOR AUTHOR'S ORGANIZ ATION 01/06/2025 [facility] DATE CREATED AUTHOR AUTHOR'S ORGANIZ ATION 02/11/2025 [facility] DATE CREATED AUTHOR AUTHOR'S ORGANIZ ATION 04/26/2025 [facility] DATE CREATED AUTHOR AUTHOR'S ORGANIZ ATION 06/20/2025 [facility] DATE CREATED AUTHOR AUTHOR'S ORGANIZ ATION 07/01/2025 [facility] Patient Care team informatio n (unrecognized section and content) Team MemberRelationshipSpecialtyStart DateEnd Date Lulu Blank MD [address] [place] [address] [facility]CP - [facility]Lem[facility] Medicine04/05/23Team MemberRelationshipSpecialtyStart DateEnd Date Lulu Blank MD [address] [place] [address] PCP - Generalmi Medicine04/05/23Team MemberRelationshipSpecialtyStart DateEnd Date Lulu Blank MD [address] [place] [address] PCP - GeneralFamily Medicine04/05/23Team MemberRelationshipSpecialtyStart DateEnd Date Lulu Blank MD [address] [place] [address] PCP - GeneralFamily Medicine04/05/23am MemberRelationshipSpecialtyStart DateEnd Date Lulu Blank MD [address] [place] [address] PCP - GeneralFamily Medicine04/05/23am MemberRelationshipSpecialtyStart DateEnd Date Effie Sarmiento, FLANGE TURNER-ALARM INVESTIGATOR [address] [place] [address] PCP - GeneralNurse Practitioner3Te MemberRelationshipSpecialtyStart Date End Date Effie Sarmiento, FLANGE TURNER-ALARM INVESTIGATOR [address] [place] [address] PCP - GeneralNurse Practitioner11/28/24Te MemberRelationshipSpecialtyStart Date End Date Effie Sarmiento, FLANGE TURNER-ALARM INVESTIGATOR [address] [place] [address] PCP - GeneralNurse Practitioner11/28/24Team MemberRelationshipSpecialtyStart Date End Date Effie Sarmiento, FLANGE TURNER-ALARM INVESTIGATOR [address] [place] [address] PCP - GeneralNurse Practitioner3Team MemberRelationshipSpecialtyStart Date End Date Effie Sarmiento, FLANGE TURNER-ALARM INVESTIGATOR [address] [place] [address] PCP - GeneralNurse Practitioner11/28/24Team MemberRelationshipSpecialtyStart Date End Date Effie Sarmiento, FLANGE TURNER-ALARM INVESTIGATOR [address] [place], [place] [phone] PCP - GeneralNurse Practitioner11/28/24 Team Status: Active Member Role Status Dates Effie Sarmiento , ARTIST MODEL-C Primary Care Provider Active Team Status: Inactive Member Role Status Dates Jose Carlos Whitt DO Attending Provider Active Sta rt: March 19, 2025 End: March 19, 2025Jocolleen Sarmiento , ARTIST MODEL-CPrimary Care ProviderActiveStart: March 19, 2025 End: March 19, 2025Team MemberRelationshipSpecialtyStart DateEnd Date Effie Sarmiento, FLANGE TURNER-ALARM INVESTIGATOR [address] [place] [address] PCP - GeneralNurse Practitioner11/28/24Team MemberRelationshipSpecialtyStart Date End Date Effie Sarmiento, FLANGE TURNER-ALARM INVESTIGATOR [address] [place] [address] PCP - GeneralNurse Practitioner11/28/24Team MemberRelationshipSpecialtyStart Date End Date Effie Sarmiento, FLANGE TURNER-ALARM INVESTIGATOR [address] [place], [place] [phone] PCP - GeneralNurse Practitioner11/28/24 Reason for Visit (unrecogniz ed section and content) ReasonCommentsFoot Gznbgvdfz89 yo ARTIST MODEL presents today inquiring about getting new orthotics. Pt states his current ones broke, and is wanting to get new ones. Pt has had these orthotics for about 5 years. Pt did not bring orthotics with him today. SS: 10.5WReasonOnset DateCommentsFoot Yiccnglnr15/29/2025ReasonComments Scan OrthoticsRakesh Vaughn is a 49 y.o. male who presents to be scanned [facility] SS: 10.5WReasonCommentsNew PatientNeed MNT 1 of 3ReasonComments Nutrition CounselingSpecialtyDiagnoses / ProceduresReferred By ContactReferred To ContactNutrition Diagnoses [place] [address] [place] [address] Phone: tel: fax: Referral IDStatusReasonStart DateExpiration DateVisits RequestedVisits [id number] Specialty Services Required [id number] CounselingFollow-upSpecialty Diagnoses / ProceduresReferred By ContactReferred To ContactNutrition Diagnoses History of sleeve gastrectomy Nury Potter MD [address] [place] [address] Phone: tel: fax: Referral IDStatusReasonStart DateExpiration DateVisits RequestedVisits [id number] Specialty Services Required [id number] PATIENTgo over labs/1st refreshor visit with dititian [...] BASED ON THE PRIMARY CLINICAL RECORDS. [facility]. provides no warranty or guarantee of the accuracy or completeness of information in this document.
--- NOTE | 2025-07-08 09:46 | PM.CN ---
Consult Note: HPI Data of Consult Patient: known to practice within the last 3 years Consult date: 07/08/25 Requesting Physician: Liliane Garcia NP Primary Care Provider: EFFIE SARMIENTO Consult Narrative Reason for consult: back and BLE pain Narrative: Milton Vaughn a pleasant 50 year old male with chronic low back pain secondary to lumbar spondylosis, lumbar stenosis, lumbar DDD presents for evaluation. Pt noticing over the last month increased low back and BLE pain, did have a fall 1 week ago with increased middle back pain and was cleared by PCP. Pain today 6/10 increasing to 10/10 with sleep and upon waking. utilizing ibuprofen, tizanidine with minimal relief. stopped celebrex due to ineffectiviness. cc:: CC: Liliane Garcia NP Review of Systems ROS Musculoskeletal Reports: back pain and extremity pain PFSH PFS Medical History Osteoarthritis ?M19.90 - Unspecified osteoarthritis, unspecified site (ICD-10) KWAN on CPAP ?G47.33 - Obstructive sleep apnea (adult) (pediatric) (ICD-10) Sleep apnea ?G47.30 - Sleep apnea, unspecified (ICD-10) Meds Home Medications and Allergies Home Medications ?Medication ?Instructions ?Recorded ?Confirmed ?Type celecoxib 200 mg capsule (Celebrex) 200 mg PO BID 11/05/23 12/29/24 History cranberry fruit 400 mg capsule 1,600 mg PO DAILY 11/05/23 12/29/24 History loratadine 10 mg tablet (Claritin) 10 mg PO DAILY 11/05/23 12/29/24 History ascorbic acid (vitamin C) 1,000 mg 1,000 mg PO DAILY 12/03/23 12/29/24 History tablet,extended release (C Complex) paroxetine HCl 10 mg tablet 10 mg PO DAILY 01/07/24 12/29/24 History tizanidine 4 mg tablet 4 mg PO DAILY 06/30/24 12/29/24 History gabapentin 300 mg capsule 300 mg PO DAILY #30 caps 09/17/24 12/29/24 Rx calcium 600 mg capsule mg PO 01/07/25 History cyanocobalamin (B12)-cobamamide judy sublingual 01/07/25 History 5,000 mcg-100 mcg sublingual lozenge (B12) turmeric 400 mg capsule mg PO 01/07/25 History celecoxib 200 mg capsule (Celebrex) 200 mg PO BID PRN pain #60 caps 04/15/25 Rx tizanidine 4 mg capsule 4 mg PO DAILY PRN muscle 04/15/25 Rx spasticity #30 caps Allergies Allergy/AdvReac Type Severity Reaction Status Date / Time No Known Drug Allergies Allergy Verified 12/29/24 07:21 Exam Constitutional Documenting provider has reviewed patient's vital signs: yes Common normals: no apparent distress, oriented x3, healthy appearing, alert and well nourished General appearance: cooperative HENMT Common normals: normocephalic, hearing grossly normal bilaterally and moist oral mucous membranes Head and scalp: normocephalic Eye Common normals: PERRL Pupil: PERRL Neck & C-Spine Common normals: full ROM General: normal visual inspection Chest Common normals: inspection of chest normal Respiratory Common normals: normal respiratory effort, no retractions and no use of accessory muscles Back & Pelvis Thoracic spine/upper back: thoracic spinal tenderness and paraspinal muscle tenderness Lumbar spine/lower back: lumbar spinal tenderness, paraspinal muscle tenderness, straight leg raise positive right and straight leg raise positive left Other: radiculopathy noted bilateral L5/S1 strength 5/5 in BLE diffuse myofascial pain mild pain with facet loading no pain with forward flexion Neuro Common normals: oriented x3 Sensorium/orientation: alert Psych Common normals: mental status grossly normal, thought process normal, cooperative, affect normal, speech normal and activity/motor behavior normal Speech: normal speech Thought process: normal thought process Results Additional Findings Additional findings: If on a controlled substance or opioids, I have checked an [place]AR[place] report on this patient and there are no aberrancies noted in the prescribing history.??If on a controlled substance or opioid a drug screen was completed and reviewed within the last year, and if there has not been a drug screen completed we ordered one today to monitor higher risk, state monitored pain medication use. As part of providing excellent, safe, comprehensive care, the following was completed at our patient's visit: 1. A medication reconciliation and review to ensure accurate knowledge of current/active medications, including asking our patients to inform us about any vhfr-ood-mfbpbfc medications or herbal remedies/nutritional supplements/alternative remedies. 2. A review to specifically ensure our patients have had annual screening for screening for depression, screening for tobacco use, and screening for unhealthy alcohol use. For concerning screenings had a discussion with the patient, provided patient education, and recommended follow-up with primary care provider when appropriate. If patient noted with a risk of falling, they received education on strength, gait, and balance training to prevent future risk of falling. Portions of this note may have been carried over from the previous visit and updated as appropriate. Please note this office utilizes paper charting in addition to the electronic medical record. A list of current medications, vitals, and PMH is available there as the clinical staff outside of myself do not have access to [employer] charting during the clinic day operations. As part of providing quality comprehensive care the current medications, vitals, and PMH were reviewed in the paper chart. Assessment and Plan Assessment and Plan (1) Lumbar stenosis with neurogenic claudication: (2) Myalgia: (3) Lumbago: Qualifiers: Chronicity: chronic Back pain laterality: bilateral Sciatica presence: unspecified whether sciatica present Qualified Code(s): M54.50 - Low back pain, unspecified; G89.29 - Other chronic pain Plan pt declining bilateral L5/S1 TFESI at this time restart PT for myalgia and low back pain stop tizanidine, start baclofen 5-10mg TID PRN pain/spasms continue otc nsaids f/u 1 month
== END 2025-07-08 09:19 | disposition home or self-care (01) ==
PROVIDERS: PCP Nurse Practitioner; Visit Provider Nurse Practitioner
DX: M48.062 Spinal stenosis, lumbar region with neurogenic claudication (principal); M79.18 Myalgia, other site; M54.50 Low back pain, unspecified; G89.29 Other chronic pain
CPT/HCPCS: G0463

== ENCOUNTER 2025-07-08 10:49 | Outpatient (OUT) | payer OTHER, BC, SELFPAY ==
--- OUTSIDE RECORDS SUMMARY | 2025-07-08 10:52 | XMS_ITS | Clinical Summary ---
Author Organization [facility] Address [address] [place] [address] Care Team Providers Care Program Management Specialist Name Role Phone Unavailable Primary Care Provider Unavailabl e Social History Tobacco UseTypesPacks/DayYears UsedDateSmoking Tobacco: Never AssessedUT Safety & EnvironmentAnswerDate RecordedFear of Current or Ex-PartnerNot on file 11/01/2023Emotionally AbusedNot on file11/01/2023hysically AbusedNot on file 11/01/2023Sexually AbusedNot on file11/01/2023hysically or Sexually AbusedNot on file11/01/2023Sex and Gender InformationValueDate RecordedSex Assigned at BirthNot on fileLegal QfeXfqm3603/08/2022 10:39 PM EDTGender IdentityNot on file Sexual OrientationNot on file Last Filed Vital Signs Vital SignReadingTime TakenCommentsBlood Mxzvjzaw533/9412 10:54 AM EST Ygxkf62546/04/2019 10:54 AM TGQMlyjltotuvc48.7 ??C (98 ??F)07/08/2019 4:05 PM EDTRespiratory Rate--Oxygen Saturation--Inhaled Oxygen Concentration--Prhpsg948 kg (409 lb 15.9 oz)12/29/2021 11:33 AM CIXVlxbso102.3 cm (5' 9 )12/29/2021 11:32 AM EDTBody Mass Index60.55012/29/2021 11:32 AM EDT Plan of Treatment Health MaintenanceDue DateLast DoneCommentsCT Yiiljgzalzgb1977Colonoscopy 1977Colorectal Cancer Rfnsfoghm1977FIT-DNA1977FIT1977 FOBT1977Medicare Annual Wellness (AWV)1977 8884Vwxhylkyafhat1977 Depression Lyewnwibg99/12/1989Hepatitis B Vaccines (1 of 3 - 19+ 3-dose series) 1996Adult Wbbhabu7803/21/1999Influenza Vaccine (#1)2025Zoster Vaccines (1 of 2)2027Pneumococcal Vaccine: [...] Milton VaughnAccount TypeRelation to PatientDate of BirthPhoneBilling AddressPersonal/SflccyOegq1975 ([place] [address]
--- OUTSIDE RECORDS SUMMARY | 2025-07-08 10:52 | XMS_ITS | Clinical Summary ---
Author Organization [facility] Address [address] [place] [address] Care Team Providers Care Materials Technician Name Role Phone Lisseth Blank MD Primary Care Provider [phone] Allergies Active AllergyReactionsCriticalityNoted AvtoLtzobrxeBzjlq98/27/2023 environmental Medications MedicationSigDispense QuantityRefillsLast FilledStart DateEnd DateStatus [...] Problems ProblemNoted DateDiagnosed DatePerforation of left tympanic asexwmtg52/02/2023 Chronic vaczgxav92/27/2023ysfunction of both eustachian tubes04/05/2023 Gxylclrvbe95/27/2023LPRD (laryngopharyngeal reflux disease)04/05/2023Otorrhea of right ear04/05/2023erforation of right tympanic /27/2023Sensorineural hearing loss, /27/4897Bxmayroodx19/27/2023NASH (nonalcoholic steatohepatitis)04/05/2023OSA (obstructive sleep apnea)04/05/2023Sinus obffkviownm88/27/2023 Immunizations ImmunizationAdministration DatesNext DueInfluenza, injectable, quadrivalent, preservative free05/31/2023,06/07/2022Influenza, seasonal, injectable, preservative free07/08/2024Novel jedmvcrof-Q4J9-66, preservative-free08/18/2009 Pneumococcal Polysaccharide IYGW7578 Family History Medical HistoryRelationNameCommentsHeart failureFatherDiabetesMaternal GrandfatherCancerSisterRelationNameStatusCommentsFatherAliveMaternal Grandfather MotherAliveSister Social History Tobacco UseTypesPacks/DayYears UsedDateSmoking Tobacco: NeverSmokeless Tobacco: Never Tobacco Cessation:Counseling Given: Not Answered Alcohol UseStandard Drinks/WeekCommentsNot Currently0 (1 standard drink = 0.6 oz pure alcohol)Sex and Gender InformationValueDate RecordedSex Assigned at Not on fileLegal TryRnou5111/22/2022 6:44 PM EDTGender IdentityNot on fileSexual OrientationNot on file Last Filed Vital Signs Vital SignReadingTime TakenCommentsBlood Htaebpjq486/8508 11:31 AM EDT Pulse--Temperature--Respiratory Rate--Oxygen Saturation--Inhaled Oxygen Concentration--Mthmsf799 kg (375 lb)11/05/2024 10:17 AM SJWJfkpdx259.3 cm (5' 9 )11/05/2024 10:17 AM ESTBody Mass Index55.38011/05/2024 10:17 AM EST Plan of Treatment Not on file Insurance Care Teams Team MemberRelationshipSpecialtyStart DateEnd Date Lisseth Blank MD [address] [place] [phone] PCP - GeneralFamily Medicine04/05/23
--- OUTSIDE RECORDS SUMMARY | 2025-07-08 10:52 | XMS_ITS | Clinical Summary ---
Author Organization [facility] Address [address] [place] [address] Care Team Providers Care Plater Hot Dip Name Role Phone Lisseth Balnk MD Primary Care Provider [phone] Allergies No known active allergies Medications MedicationSigDispense [...] - Left Eye08/21/2014Open wound anterior abdominal wall09/29/2010Morbid eksqeih5609/29/2010 Family History Medical HistoryRelationCommentsHeartFatherCataractMaternal GrandmotherCancer SisterRelationStatusCommentsFatherMaternal GrandmotherSister Social History Tobacco UseTypesPacks/DayYears UsedDateSmoking Tobacco: FormerCigarettes1.515 06/21/1995 - 06/21/2010Smokeless Tobacco: FormerAlcohol UseStandard Drinks/Week CommentsYes0 (1 standard drink = 0.6 oz pure alcohol)2 o2 three beers every other weekendSex and Gender InformationValueDate RecordedSex Assigned at Not on fileLegal QjdUqgj73/02/2012 8:32 AM ESTGender IdentityNot on fileSexual OrientationNot on file Last Filed Vital Signs Vital SignReadingTime TakenCommentsBlood Vglwhwdr721/5601/ 1:15 PM EST Drdlw1086 1:15 PM QNJSxbhpwsastg50.4 ??C (97.6 ??F)10/06/2014 11:49 AM ESTRespiratory Yuix662910/06/2014 1:15 PM ESTOxygen Mfcrifkykn67%10/06/2014 1:15 PM ESTInhaled Oxygen Concentration--Adfyam417.1 kg (397 lb)09/23/2014 10:11 AM VTDLupgme879.3 cm (5' 9 )09/23/2014 10:11 AM ESTBody Mass Index58.63009/23/2014 10:11 AM EST Plan of Treatment Health MaintenanceDue DateLast DoneCommentsAnxiety Akycdhknl70/12/1995Depression Oisqggozq72/12/1995HIV Ypvzdlquf13/12/1995Hepatitis C Xsfzizxcg60/12/1995 DTaP,Tdap,Td Vaccine (1 - Tdap)1996Hepatitis B Vaccine (1 of 3 - 19+ 3- dose series)1996Lipid Pbajfzpwy84/12/2012CT Powmzlrvdfig13/12/2022 Cologuard (FIT-DNA)4520Agnlfumqkew82/12/2022Colorectal Cancer Screening 2Diabetes Fnwevjwsn89/, 11/24/2012, 11/23/2012, Additional history existsFecal Occult Blood03/21/20223782Qqjycivfamdvc41/12/2022 Covid-19 Vaccine ()05/11/2025Influenza Vaccine (#1)2025 Medical Devices ImplantedTypeAreaManufacturerDevice IdentifierShelf Expiration DateModel / Serial / LotMesh Srg Parietex 12cm 12cm - [id number] Implanted:Qty: 1 [facility]20/2012 [facility]/A: AbdomenCOVIDIEN USAR 05/10/[id number] / / [id number]:Parietex optimized composite mesh 12cmMesh Srg Surgipro 14x9in Niels - [id number] Implanted:Qty: 1 on 11/20/2012 at [facility] 04/09/[id number] / / [id number]:surgipro monofilament polypropylene mesh Procedures Procedure NamePriorityDate/TimeAssociated DiagnosisCommentsBASIC METABOLIC PANEL Adzoahb3311/26/2012 5:38 AM EDT from Last 3 Months or Most Recently Relevant to Health Maintenance Results * (ABNORMAL) BASIC METABOLIC PNL (11/26/2012 5:38 AM EDT)ComponentValueRef Range Test MethodAnalysis TimePerformed AtPathologist DkyurksojBzmsanc4530 - 100 mg/dLMARYMOUNT HOSPITAL LABORATORYBUN7(L)10 - 25 mg/dLMARYMOUNT HOSPITAL LABORATORYCreatinine0.740.70 - 1.40 mg/dLMARYMOUNT HOSPITAL LABORATORY Wgsjej778617 - 146 mmol/LCCHILLICOTHE VA MEDICAL CENTER LABORATORYPotassium3.4(L)3.5 - 5.0 mmol/LCKETTERING [facility]AMIS[facility] WVWFNKJLJYAxepigde16(L)98 - 110 mmol/L [facility] OWHTQBUOIXLN287(H)23 - 32 mmol/LCKETTERING HEALTH [facility]AMIS[facility] LABORATORYAnion Gap90 - 15 mmol/LCCHILLICOTHE VA MEDICAL CENTER LABORATORYCalcium8.68.5 - 10.5 mg/dLMARYMOUNT HOSPITAL LABORATORYSpecimen (Source)Anatomical Location / LateralityCollection Method / VolumeCollection TimeReceived Time Blood specimen (specimen)BLOOD SPECIMEN / Qkrdkoa5211/26/2012 5:38 AM EDT 11/26/2012 5:39 AM EDT Narrative Authorizing ProviderResult TypeResult StatusStevkaushal See MDLABORATORYFinal ResultPerforming OrganizationAddressCity/State/ZIP CodePhone Number [facility] [address] [place] [address] from Last 3 Months or Most Recently Relevant to Health Maintenance Insurance * Guarantor: Milton Vaughn TypeRelation to PatientDate of BirthPhone Billing AddressSelf NrcRlms98 [address] [place] [address] Care Teams Team MemberRelationshipSpecialtyStart DateEnd Date Lisseth Blank MD [address] [place] [address] [facility] [place]91/22/10
--- OUTSIDE RECORDS SUMMARY | 2025-07-08 10:52 | XMS_ITS | Clinical Summary ---
Author Organization The Local tem Address [id number] [address] [place] [address] Care Team Providers Care Pool Nurse Name Role Phone Alexia Mancilla APRN-KNUCKLER Primary Care Provider [phone] Allergies No known active allergies Medications MedicationSigDispense [...] with breakfast. 270 tablet Discontinued Encounters DateTypeDepartmentCare ApbfJfudqsmqtyd14/26/2025Refill [facility] [address] [place] [phone] Nury Quinteros MD Low 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05/14/2025Orders Only [facility] [address] [place] [phone] Ref Prov, Not In System 04/24/2025 10:00 AM EDTOffice Visit [facility] [address] [place] [phone] Nury Quinteros MD Insulin resistance (Primary Dx); Incisional hernia, without obstruction or gangrene; Low 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; Morbid obesity with BMI of 50.0-59.9, adult ([facility])04/24/2025[facility] [address] [place] [phone] Nury Quinteros MD 04/24/20251296Ydeszq71/14/2025Orders Only [facility] [address] [place] [phone] Ref Prov, Not In System from Last 3 Months Family History Medical HistoryRelationNameCommentsHeart failureFatherDiabetesMaternal GrandfatherCancerSisterCervical cancerSisterRelationNameStatusCommentsFather AliveMaternal GrandfatherMotherAliveSisterDeceased Social History Tobacco UseTypesPacks/DayYears UsedDateSmoking Tobacco: FormerCigarettes Smokeless Tobacco: Never Tobacco Cessation:Counseling Given: Not Answered Alcohol UseStandard Drinks/WeekCommentsNot Asked0 (1 standard drink = 0.6 oz pure alcohol)SOCIALLYChildcareAnswerDate JthljfraRcrnhxcoqDjucbgc55/12/2019 EmploymentAnswerDate SxfsbsezKinnldmsepPzxmylx82/12/2019Sex and Gender InformationValueDate RecordedSex Assigned at BirthNot on fileLegal SexMale 04/15/2015 12:09 PM EDTGender IdentityNot on fileSexual OrientationNot on file Last Filed Vital Signs Vital SignReadingTime TakenCommentsBlood Ukulbxzq027/79953 9:34 AM EDT Pulse--Temperature--Respiratory Rate--Oxygen Saturation--Inhaled Oxygen Concentration--Cibnft047.3 kg (384 lb 3.2 oz)04/24/2025 9:55 AM NSYQcikim914.3 cm (5' 9 )04/24/2025 9:55 AM EDTBody Mass Index56.7404/24/2025 9:55 AM EDT Plan of Treatment DateTypeDepartmentCare Team (Latest Contact Info)Sgcnvrzxqhp84/14/2025 9:00 AM ESTOffice Visit [facility] [address] [place] [address] Nury Quinteros MD [address] [place] [address] Health MaintenanceDue DateLast DoneCommentsDepression Uiydyzabt57/12/1989 DTaP,Tdap and Td Vaccines (1 - Tdap)1996COVID-19 Vaccine (3 - 2024- season)503/01/2021, 10/22/2020Influenza Bqqbhyq13/, 05/31/2023, 06/07/2022, Additional history existsAdult BMI Follow Up Plan dult BMI Eyktmkpqj54Tobacco Screening Medical Devices Not on file Procedures Procedure NamePriorityDate/TimeAssociated DiagnosisCommentsCT ABDOMEN AND PELVIS W CRYZPuxphqq71/04/2025 8:24 AM EDTMULTIPLE BVKZEimhfvs13/14/2025 9:35 AM EDT MULTIPLE NXYOAeretvi92/14/2025 9:03 AM EDTfrom Last 3 Months Results [...] Team MemberRelationshipSpecialtyStart DateEnd Date Laurent, Alexia L, LOTUS NOTES ADMINISTRATOR-KNUCKLER [address] [place] [address] PCP - GeneralNurse Practitioner11/28/24
--- OUTSIDE RECORDS SUMMARY | 2025-07-08 10:52 | XMS_ITS | Clinical Summary ---
Author Organization [facility] Address [address] [facility] [address] [facility], [address] [place] [address] Care Team Providers Care Registered Medical Transcriptionist Name Role Phone Unavailable Primary Care Provider Unavailabl e Social History Tobacco UseTypesPacks/DayYears UsedDateSmoking Tobacco: Never AssessedSex and Gender InformationValueDate RecordedSex Assigned at BirthNot on fileLegal Sex Male10/20/2012 10:59 AM ESTGender IdentityNot on fileSexual OrientationNot on file Plan of Treatment Health MaintenanceDue DateLast DoneCommentsDepression Fhxhvu9703/21/1989HIV screen 1992Hepatitis C oiltth2603/21/1995DTaP/Tdap/Td vaccine (1 - Tdap)1996 Hepatitis B vaccine (1 of 3 - 19+ 3-dose series)03/21/19967106Znqmqc72/12/2017 Orhbgchilxi18/12/2022olorectal Cancer Vxuwmg7103/21/2022FIT/FOBT: Average risk 2022Fecal-DNA (Cologuard): Average risk2022igmoidoscopy/CT enzkqstmeppq34/12/2022Flu vaccine (#1)509/, 06/07/2022, 08/18/2009COVID-19 Vaccine ( season)503/01/2021, 10/22/2020 Pneumococcal 0-49 years VaccineAged Out03/10/2019No longer eligible based on patient's age to complete this topicHepatitis A vaccineAged OutNo longer eligible based on patient's age to complete this topicHib vaccineAged OutNo longer eligible based on patient's age to complete this topicMeningococcal (ACWY) vaccineAged OutNo longer eligible based on patient's age to complete this topicMeningococcal B vaccineAged OutNo longer eligible based on patient's age to complete this topicPolio vaccineAged OutNo longer eligible based on patient's age to complete this topic Insurance
== END 2025-07-08 10:50 | disposition home or self-care (01) ==
LOC: FHNEUROLOG 10:49
PROVIDERS: PCP Nurse Practitioner; Visit Provider Psychiatry & Neurology Neurology
DX: G47.33 Obstructive sleep apnea (adult) (pediatric) (principal)
CPT/HCPCS: G0463

== ENCOUNTER 2025-07-13 09:46 | Outpatient (OUT) | payer OTHER, SELFPAY ==
--- OUTSIDE RECORDS SUMMARY | 2025-07-13 09:54 | XMS_ITS | Clinical Summary ---
Author Organization [facility] Address [address] [place] [address] Care Team Providers Care Enroller Name Role Phone Unavailable Primary Care Provider Unavailabl e Social History Tobacco UseTypesPacks/DayYears UsedDateSmoking Tobacco: Never AssessedUT Safety & EnvironmentAnswerDate RecordedFear of Current or Ex-PartnerNot on file 11/01/2023Emotionally AbusedNot on file11/01/2023hysically AbusedNot on file 11/01/2023Sexually AbusedNot on file11/01/2023hysically or Sexually AbusedNot on file11/01/2023Sex and Gender InformationValueDate RecordedSex Assigned at BirthNot on fileLegal EsoUllv1103/08/2022 10:39 PM EDTGender IdentityNot on file Sexual OrientationNot on file Last Filed Vital Signs Vital SignReadingTime TakenCommentsBlood Vlofovuv278/9412 10:54 AM EST Qrejb79456/04/2019 10:54 AM JNTVmbvwpiatyv67.7 ??C (98 ??F)07/08/2019 4:05 PM EDTRespiratory Rate--Oxygen Saturation--Inhaled Oxygen Concentration--Xfrvyl314 kg (409 lb 15.9 oz)12/29/2021 11:33 AM IDONlbjmc037.3 cm (5' 9 )12/29/2021 11:32 AM EDTBody Mass Index60.55012/29/2021 11:32 AM EDT Plan of Treatment Health MaintenanceDue DateLast DoneCommentsCT Fbedecgkcxdx1977Colonoscopy 1977Colorectal Cancer Ypbfmffol1977FIT-DNA1977FIT1977 FOBT1977Medicare Annual Wellness (AWV)1977 7060Puxczkuyetsvr1977 Depression Xcycvusvt52/12/1989Hepatitis B Vaccines (1 of 3 - 19+ 3-dose series) 1996Adult Iljfbvg4203/21/1999Influenza Vaccine (#1)2025Zoster Vaccines (1 of 2)2027Pneumococcal Vaccine: [...] Milton VaughnAccount TypeRelation to PatientDate of BirthPhoneBilling AddressPersonal/MvuqceKhue1975 ([place] [address]
--- OUTSIDE RECORDS SUMMARY | 2025-07-13 09:54 | XMS_ITS | Clinical Summary ---
Author Organization [facility] Address [address] [facility] [address], [address] [place] [address] Care Team Providers Care Restorer Paper And Prints Name Role Phone Unavailable Primary Care Provider Unavailabl e Social History Tobacco UseTypesPacks/DayYears UsedDateSmoking Tobacco: Never AssessedSex and Gender InformationValueDate RecordedSex Assigned at BirthNot on fileLegal Sex Male10/20/2012 10:59 AM ESTGender IdentityNot on fileSexual OrientationNot on file Plan of Treatment Health MaintenanceDue DateLast DoneCommentsDepression Dmcqkh6203/21/1989HIV screen 1992Hepatitis C lfemuv2103/21/1995DTaP/Tdap/Td vaccine (1 - Tdap)1996 Hepatitis B vaccine (1 of 3 - 19+ 3-dose series)03/21/19967640Qgzmxs82/12/2017 Inahmrakwms07/12/2022olorectal Cancer Cosrgl4903/21/2022FIT/FOBT: Average risk 2022Fecal-DNA (Cologuard): Average risk2022igmoidoscopy/CT wyvjawqvlnmk19/12/2022Flu vaccine (#1)509/, 06/07/2022, 08/18/2009COVID-19 Vaccine ( season)503/01/2021, [...]
--- OUTSIDE RECORDS SUMMARY | 2025-07-13 09:55 | XMS_ITS | Patient Health Record ---
Author Organization [facility] Address [address] [place] [address] Care Team Providers Care Orchid Grower Name Role Phone Jose Romero Unavailable [phone] Allergies No Known Allergies Reason For Referral [...] containging alcohol in the last year? Yes Rbhjnm1LaxzkkgqzrelgeFclkbbip Problems Problem Type SNOMED Code ICD Code Onset Dates Problem Status W/U Status Risk Notes Problem [id number] Unilateral primary osteoa rthritis, left hip (M16.12) FdcozqjwpgatxtcIrisdle448801522Zttgnd stenosis, lumbosacral region (M48.07) RwuhrevrnbxsysaAeyzfkv42874793Lkmqo intervertebral disc degeneration, lumbosacral region (M51.37)KpmwxoozixizxjeVdtoegf731927198Mgcifj spondylosis (M47.816)Activeconfirmed Plan Of Treatment No Information Insurance Providers Payer Name Payer Address Payer Phone Subscriber Number Group Number Insured Name Patient Relationship to Insured Coverage Start Date Coverage End Date [employer] [address] [place] [address] [id number] RAKESH PIÑA Self - patient is the insured Medical (General) History Medical History History ICD Code Sleep apnea CPAP Machine:Do you use the CPAP machine? YesSurgical History Surgery Date(Month/Year) Bariatric 2010
--- OUTSIDE RECORDS SUMMARY | 2025-07-13 09:55 | XMS_ITS | Clinical Summary ---
Author Organization [facility] Address [address] [place] [address] Care Team Providers Care Carpenter Apprentice Name Role Phone Lisseth Blank MD Primary Care Provider [phone] Allergies No known active allergies Medications MedicationSigDispense [...] - Left Eye08/21/2014Open wound anterior abdominal wall09/29/2010Morbid acdcptd8409/29/2010 Family History Medical HistoryRelationCommentsHeartFatherCataractMaternal GrandmotherCancer SisterRelationStatusCommentsFatherMaternal GrandmotherSister Social History Tobacco UseTypesPacks/DayYears UsedDateSmoking Tobacco: FormerCigarettes1.515 06/21/1995 - 06/21/2010Smokeless Tobacco: FormerAlcohol UseStandard Drinks/Week CommentsYes0 (1 standard drink = 0.6 oz pure alcohol)2 o2 three beers every other weekendSex and Gender InformationValueDate RecordedSex Assigned at Not on fileLegal OtrFovy95/02/2012 8:32 AM ESTGender IdentityNot on fileSexual OrientationNot on file Last Filed Vital Signs Vital SignReadingTime TakenCommentsBlood Zxntzaeu668/5601/ 1:15 PM EST Qedrg5616 1:15 PM CRSPxupcusfznd83.4 ??C (97.6 ??F)10/06/2014 11:49 AM ESTRespiratory Wypc394610/06/2014 1:15 PM ESTOxygen Dkegslshoa79%10/06/2014 1:15 PM ESTInhaled Oxygen Concentration--Cshljp107.1 kg (397 lb)09/23/2014 10:11 AM MFSNomnbl917.3 cm (5' 9 )09/23/2014 10:11 AM ESTBody Mass Index58.63009/23/2014 10:11 AM EST Plan of Treatment Health MaintenanceDue DateLast DoneCommentsAnxiety Mvyodynpx44/12/1995Depression Qmhcdmquy61/12/1995HIV Vlwzmkphg75/12/1995Hepatitis C Kquwwcxpt18/12/1995 DTaP,Tdap,Td Vaccine (1 - Tdap)1996Hepatitis B Vaccine (1 of 3 - 19+ 3- dose series)1996Lipid Fwhfnyopi59/12/2012CT Wmvqmiejskjw24/12/2022 Cologuard (FIT-DNA)5199Ipuqznjutsl63/12/2022Colorectal Cancer Screening 2Diabetes Pqhwfhssz22/, 11/24/2012, 11/23/2012, Additional history existsFecal Occult Blood03/21/20227639Unwmfxmavsgzb20/12/2022 Covid-19 Vaccine ()05/11/2025Influenza Vaccine (#1)2025 Medical Devices ImplantedTypeAreaManufacturerDevice IdentifierShelf Expiration DateModel / Serial / LotMesh Srg Parietex 12cm 12cm - [id number] Implanted:[facility]/A: AbdomenCOVIDIEN USKY 05/10/[id number] / / [id number]:Parietex optimized composite mesh 12cmMesh Srg Surgipro 14x9in Niels - [id number] Implanted:Qty: 1 on 11/20/2012 at [facility] 04/09/[id number] / / [id number]:surgipro monofilament polypropylene mesh Procedures Procedure NamePriorityDate/TimeAssociated DiagnosisCommentsBASIC METABOLIC PANEL Vhkvfmt6011/26/2012 5:38 AM EDT from Last 3 Months or Most Recently Relevant to Health Maintenance Results * (ABNORMAL) BASIC METABOLIC PNL (11/26/2012 5:38 AM EDT)ComponentValueRef Range Test MethodAnalysis TimePerformed AtPathologist XuvlgtmirEaxwjxt4892 - 100 mg/dLKETTERING HEALTH [facility]BLE LABORATORYBUN7(L)10 - 25 mg/dLKETTERING HEALTH PREBLE LABORATORYCreatinine0.740.70 - 1.40 mg/dLKETTERING [facility]ALTH [facility]BLE LABORATORY Olapfk003434 - 146 mmol/LCSELECT MEDICAL SPECIAL[facility] LABORATORYPotassium3.4(L)3.5 - 5.0 mmol/LCMANSFIELD HOSPITAL MAIN UZQHNRICTQZhfiahkc89(L)98 - 110 mmol/L [facility] YRIPYGBUEXMF876(H)23 - 32 mmol/LCMANSFIELD HOSPITAL MAIN LABORATORYAnion Gap90 - 15 mmol/LCSELECT MEDICAL SPECIALTY [facility] LABORATORYCalcium8.68.5 - 10.5 mg/dLKETTERING HEALTH PREBLE LABORATORYSpecimen (Source)Anatomical Location / LateralityCollection Method / VolumeCollection TimeReceived Time Blood specimen (specimen)BLOOD SPECIMEN / Hfagdbz6111/26/2012 5:38 AM EDT 11/26/2012 5:39 AM EDT Narrative Authorizing ProviderResult TypeResult StatusStevkaushal See MDLABORATORYFinal ResultPerforming OrganizationAddressCity/State/ZIP CodePhone Number [facility] [address] [place] [address] from Last 3 Months or Most Recently Relevant to Health Maintenance Insurance * Guarantor: Milton Vaughn TypeRelation to PatientDate of BirthPhone Billing AddressSelf [id number] [address] [place] [id number] Care Teams Team MemberRelationshipSpecialtyStart DateEnd Date Lisseth Blank MD [address] [place] [address] [facility] - Lqqiplq45/22/10
--- OUTSIDE RECORDS SUMMARY | 2025-07-13 09:55 | XMS_ITS | Clinical Summary ---
Author Organization [facility] Address [address] [place] [address] Care Team Providers Care Butcher Assistant Name Role Phone Lisseth Blank MD Primary Care Provider [phone] Allergies Active AllergyReactionsCriticalityNoted HvfqSgnyoxywBrdmk72/27/2023 environmental Medications MedicationSigDispense QuantityRefillsLast FilledStart DateEnd DateStatus [...] Problems ProblemNoted DateDiagnosed DatePerforation of left tympanic vyboskhq18/02/2023 Chronic /27/2023ysfunction of both eustachian tubes04/05/2023 Hcqndfzmta90/27/2023LPRD (laryngopharyngeal reflux disease)04/05/2023Otorrhea of right ear04/05/2023erforation of right tympanic lrvqqzla69/27/2023Sensorineural hearing loss, oqjkuyxqw34/27/1231Ujlcoisuuy27/27/2023NASH (nonalcoholic steatohepatitis)04/05/2023OSA (obstructive sleep apnea)04/05/2023Sinus uhifotsaefg34/27/2023 Immunizations ImmunizationAdministration DatesNext DueInfluenza, injectable, quadrivalent, preservative free05/31/2023,06/07/2022Influenza, seasonal, injectable, preservative free07/08/2024Novel bcmxntqtu-S9P4-84, preservative-free08/18/2009 Pneumococcal Polysaccharide LGTA2558 Family History Medical HistoryRelationNameCommentsHeart failureFatherDiabetesMaternal GrandfatherCancerSisterRelationNameStatusCommentsFatherAliveMaternal Grandfather MotherAliveSister Social History Tobacco UseTypesPacks/DayYears UsedDateSmoking Tobacco: NeverSmokeless Tobacco: Never Tobacco Cessation:Counseling Given: Not Answered Alcohol UseStandard Drinks/WeekCommentsNot Currently0 (1 standard drink = 0.6 oz pure alcohol)Sex and Gender InformationValueDate RecordedSex Assigned at Not on fileLegal JonVcuc1611/22/2022 6:44 PM EDTGender IdentityNot on fileSexual OrientationNot on file Last Filed Vital Signs Vital SignReadingTime TakenCommentsBlood Hnluzlli666/8508 11:31 AM EDT Pulse--Temperature--Respiratory Rate--Oxygen Saturation--Inhaled Oxygen Concentration--Uhtqww720 kg (375 lb)11/05/2024 10:17 AM XSXRfpxbu625.3 cm (5' 9 )11/05/2024 10:17 AM ESTBody Mass Index55.38011/05/2024 10:17 AM EST Plan of Treatment Not on file Insurance Care Teams Team MemberRelationshipSpecialtyStart DateEnd Date Lisseth Blank MD [address] [place] [phone] PCP - GeneralFamily Medicine04/05/23
--- OUTSIDE RECORDS SUMMARY | 2025-07-13 09:55 | XMS_ITS | Clinical Summary ---
Author Organization [facility] Address [id number] [address] [place] [address] Care Team Providers Care Bilingual Counter Sales Retail Name Role Phone Alexia Mancilla APRN-MOTOR COACH SUPERVISOR Primary Care Provider [phone] Allergies No known active allergies Medications MedicationSigDispense [...] with breakfast. 270 tablet Discontinued Encounters DateTypeDepartmentCare AadkMvjydwmxhmi92/26/2025Refill [facility] [address] [place] [phone] Nury Quinteros MD Low 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05/14/2025Orders Only [facility]-B[facility] [address] [place] [phone] Ref Prov, Not In System 04/24/2025 10:00 AM EDTOffice Visit [facility] [address] [place] [phone] Nury Quinteros MD Insulin resistance (Primary Dx); Incisional hernia, without obstruction or gangrene; Low 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; Morbid obesity with BMI of 50.0-59.9, adult ([facility])04/24/2025[facility] [address] [place] [id number] Nury Quinteros MD 04/24/20250510Nfncsc49/14/2025Orders Only [facility] [address] [place] [phone] Ref Prov, Not In System from Last 3 Months Family History Medical HistoryRelationNameCommentsHeart failureFatherDiabetesMaternal GrandfatherCancerSisterCervical cancerSisterRelationNameStatusCommentsFather AliveMaternal GrandfatherMotherAliveSisterDeceased Social History Tobacco UseTypesPacks/DayYears UsedDateSmoking Tobacco: FormerCigarettes Smokeless Tobacco: Never Tobacco Cessation:Counseling Given: Not Answered Alcohol UseStandard Drinks/WeekCommentsNot Asked0 (1 standard drink = 0.6 oz pure alcohol)SOCIALLYChildcareAnswerDate NouksvuoZynjeldwzKhkgqgz58/12/2019 EmploymentAnswerDate RnyinoztAmyiqrvylaCtkvrvy54/12/2019Sex and Gender InformationValueDate RecordedSex Assigned at BirthNot on fileLegal SexMale 04/15/2015 12:09 PM EDTGender IdentityNot on fileSexual OrientationNot on file Last Filed Vital Signs Vital SignReadingTime TakenCommentsBlood Jbdmhqxq626/58710 9:34 AM EDT Pulse--Temperature--Respiratory Rate--Oxygen Saturation--Inhaled Oxygen Concentration--Pwajsp160.3 kg (384 lb 3.2 oz)04/24/2025 9:55 AM ZXCZjkxrq166.3 cm (5' 9 )04/24/2025 9:55 AM EDTBody Mass Index56.7404/24/2025 9:55 AM EDT Plan of Treatment DateTypeDepartmentCare Team (Latest Contact Info)Gvodmuqwhqa88/14/2025 9:00 AM ESTOffice Visit [facility] [address] [place] [address] Nury Quinteros MD [address] [place] [address] Health MaintenanceDue DateLast DoneCommentsDepression Tsmhlvmmj50/12/1989 DTaP,Tdap and Td Vaccines (1 - Tdap)1996COVID-19 Vaccine (3 - 2024- season)503/01/2021, 10/22/2020Influenza Iopxgur69/, 05/31/2023, 06/07/2022, Additional history existsAdult BMI Follow Up Plan dult BMI Itrwqgkkf04Tobacco Screening Medical Devices Not on file Procedures Procedure NamePriorityDate/TimeAssociated DiagnosisCommentsCT ABDOMEN AND PELVIS W KJEFSbzaqol01/04/2025 8:24 AM EDTMULTIPLE YVUAGdssfez83/14/2025 9:35 AM EDT MULTIPLE WUWPYxqpbvd10/14/2025 9:03 AM EDTfrom Last 3 Months Results [...] Team MemberRelationshipSpecialtyStart DateEnd Date Laurent, Alexia L, WALNUT DEHYDRATOR OPERATOR-MOTOR COACH SUPERVISOR [address] [place] [address] PCP - GeneralNurse Practitioner11/28/24
--- NOTE | 2025-07-13 10:15 | XR_ITS ---
The [address] [address] Patient Name: RAKESH PIÑA MRN: [id number] date: 1975 Sex: M Assigned Patient Location: RAD Current Patient Location: [facility] Accession/Order Number: [id number] Exam Date: 07/13/2025 10:10 Report Date: 07/13/2025 10:30 At the request of: REBECA CARTER DPStephanie Procedure: XR foot LT min 3V LEFT WEIGHTBEARING FOOT - 3 views CLINICAL DATA: Left foot pain. Previous history of plantar fasciitis. COMPARISON: None AP, lateral and oblique views were obtained. There is no acute fracture or dislocation. There are minor degenerative changes at the first and second metatarsal phalangeal joints. There is minor enthesophyte formation at the base of the fifth metatarsal. Minimal spurring is seen at the dorsum of the tarsals. Posterior and plantar calcaneal spurs are also visualized. No soft tissue swelling is identified. XR/XR foot LT min 3V IMPRESSION: DEGENERATIVE CHANGES INCLUDING CALCANEAL SPURS. NO ACUTE BONY FINDINGS. Impression dictated by: Amanda Garcia M.D. 07/13/2025 10:30 AM Dictation Location: [place] [address] Electronically authenticated by: [id number] Y Date: 07/13/2025 10:30
== END 2025-07-13 09:47 | disposition home or self-care (01) ==
LOC: RAD 09:50
PROVIDERS: PCP Nurse Practitioner; Visit Provider Podiatrist Foot & Ankle Surgery
DX: M72.2 Plantar fascial fibromatosis (principal); M77.32 Calcaneal spur, left foot
CPT/HCPCS: 73630

== ENCOUNTER 2025-07-21 10:06 | Outpatient (OUT) | payer OTHER, SELFPAY ==
--- OUTSIDE RECORDS SUMMARY | 2025-07-17 04:15 | XMS_ITS ---
Author Organization [facility] Address [address] [address], [place] [address] Care Team Providers Care Welder Explosion Name Role Phone Alexia Mancilla Primary Care Provider UnavailJeremy Camarillo Unavailable [phone] Allergies No Known Allergies REASON FOR VISIT Left Foot Pain Medications Medication SIG (Take, Route, Frequency, Duration) Notes Start Date End Date Status PARoxetine HCl 10 MG Tablet TAKE 1 TABLE T BY MOUTH EVERY DAY Oral; Duration: 90 Days ActiveTestosterone 20.25 MG/ACT (1.62%) GelPLACE 3 ACT ON THE SKIN IN THE MORNING Transdermal; Duration: 23 DaysActivemetFORMIN HCl ER 500 MG Tablet Extended Release 24 HourTAKE 3 TABLETS (1,500 MG TOTAL) BY MOUTH DAILY WITH BREAKFAST Oral; Duration: 90 DaysActiveCelecoxib 200 MG CapsuleTAKE 1 CAPSULE BY MOUTH TWICE A DAY NEEDED FOR PAIN Oral; Duration: 30 DaysActiveBaclofen 10 MG TabletOral; Duration: 30 DaysActivetraMADol HCl 50 MG Tablet 1 tablet as needed Orally every 6 hrs; Duration: 7 days As needed 5Active Social History Section Notes: Former tobacco use. Social alcohol use. 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 Patient education provided and all questions answered to satisfaction. - Achilles/calf stretching emphasized & demonstrated. Handout provided & recommended stretching at least 3x per day. - Discussed NSAIDS - continue celebrex. Recommended adding topical voltaren - Discussed potential use of plantar fascial injection - will hold off for now - Recommended physical therapy with modalities: US, E-stim. Order provided - Discussed OTC orthotics, night splint, RICE therapy and massage. 07/17/2025Strain of other specified muscles and tendons at ankle and foot level, left foot, initial encounter(ICD-10 - S96.812A) A few hours after his appointment he called the office relating to walking and feeling a pop in hisplantar left foot. Severe pain was felt and had difficulty bearing weight. He came back into the office and his plantar fascia no longer had a normal windlass mechanism, localized swelling was noted.He was given a prescription for a CAM boot which he is to wear when weight bearing to reduce pain while promoting stability and allow him to perform ADLs safely. He will need the CAM boot for 3 months. A prescription for ultram was sent to his pharmacy. An injection of ropivicaine 3 cc was used for atibial nerve block was administered after cleansing skin with alcohol. He tolerated the injection well. A note was provided for work today and if he is unable to work on Sunday he will call the office. Plan Of Treatment Medication Medication Name Sig Start Date Stop Date Notes traMADol HCl 50 MG Tablet 1 tablet as ne eded Orally every 6 hrs; Duration: 7 days 07/17/2025 Treatment Notes Assessment Notes Plantar fasciitis, left Patient seen and evaluated. Patient education provided and all questions answered to satisfaction. - Achilles/calf stretching emphasized & demonstrated. Handout provided & recommended stretching at least 3x per day. - Discussed NSAIDS - continue celebrex. Recommended adding topical voltaren - Discussed potential use of plantar fascial injection - will hold off for now - Recommended physical therapy with modalities: US, E-stim. Order provided - Discussed OTC orthotics, night splint, RICE therapy and massage. Strain of other specified mu scles and tendons at ankle and foot level, left foot, initial encounter A few hours after his appointment he called the office relating to walking and feeling a pop in his plantar left foot. Severe pain was felt and had difficulty bearing weight. He came back into the office and his plantar fascia no longer had a normal windlass mechanism, localized swelling was noted. He was given a prescription for a CAM boot which he is to wear when weight bearing to reduce pain while promoting stability and allow him to perform ADLs safely. He will need the CAM boot for 3 months. A prescription for ultram was sent to his pharmacy. An injection of ropivicaine 3 cc was used for a tibial nerve block was administered after cleansing skin with alcohol. He tolerated the injection well. A note was provided for work today and if he is unable to work on Sunday he will call the office. Next Appt Details Follow Up: 4 Weeks, Reason: Provider Name:Jeremy back, 08/21/2025 09:30:00 AM, [address] [facility], [facility], [address], [place], [address], History and Physical Notes * HPI (History of Present Illness) CategorySub-CategoryDetailNotesCategory NotesFootPatient presents relating to heel pain for 5 weeks. Denies injury and no change in activity. Patient relates to severe pain with first steps in morning as well as after sitting for period of time. Pain is located to plantar medial instep and denies numbness and tingling. Treatment attempted has included: celebrex and rolling his foot on a tennis ball Examination CategorySub-CategoryDetailNotesCategory NotesGeneral Examination Skin: intact without sign of infection. No rash. Neuro: LTS intact to plantar/dorsal foot. Negative tinel's sign. Vasc: Palpable pedal pulses. No bruising. No calf pain on squeeze. Mild swelling noted in the instep. MSK: POP at the proximal medial band of plantar fascia. No pain when squeezing the heel. Ankle joint dorsiflexion to neutral with knee extended but not past. Strength 5/5 in all planes. Progress Notes * Milton VAUGHNDOB:1975 ([age] yo M)Acc No.[id number]:07/17/2025 New Patient Patient: Milton Esteban :?Jeremy Cerrato, DPMDOB:1975???Age:50 Y ???Sex:MaleDate:07/17/2025Phone:Address:[address] [place] [address] [place], [id number]:Alexia Mancilal Subjective: * Chief Complaints: * L eft Foot Pain * HPI: ???Foot:?Patient presents relating to heel pain for 5 weeks. Denies injury and no change in activity. Patient relates to severe pain with first steps in morning as well as after sitting for period of time. Pain is located to plantar medial instep and denies numbness and tingling. Treatment attempted has included: celebrex and rolling his foot on a tennis ball. * ROS: ???General / Constitutional: Patient denies change in appetite, chills, fatigue, fever. Allergy / Immunology: Patient denies blistering skin, cough, congestion, itching, rash. Endocrine: Patient denies cold intolerance, excessive sweating, excessive thirst, frequent urination, hair loss. Respiratory: Patient denies chest pain, cough, pain with inspiration, shortness of breath. Cardiovascular: Patient denies chest pain, claudication, dyspnea on exertion, palpitations. Gastrointestinal: Patient denies abdominal pain, nausea, vomiting. Hematology: Patient denies bleeding problems, anemia. Peripheral Vascular: Patient denies absent pulses in feet, blood clots in legs, cold extremities, pain / cramping in legs after exertion. Skin: Patient denies changing moles, hair changes, keloid formation, nail changes, ulcerations. Neurologic: Patient denies tingling / numbness, stroke, paralysis, loss of use of extremity. * Medical History: Arthritis Diabetes Depression Medical History Verified * Surgical History: Denies Past Surgical History.? * Family History: F ather: alive, diagnosed with Heart disease. M other: alive, diagnosed with Type 2 diabetes mellitus without complication, unspecified whether chcf insulin use. P aternal Grandfather: diagnosed with Type 2 diabetes mellitus without complication, unspecified whether intermediate school teacher insulin use. S ister: diagnosed with Other malignant neoplasm without specification of site. F amily History Verified.. * Social History: Social History Verified. ???Former tobacco use. Social alcohol use. * Medications: T akingBaclofen 10 MG Tablet Oral Celecoxib 200 MG Capsule TAKE 1 CAPSULE BY MOUTH TWICE A DAY NEEDED FOR PAIN Oral metFORMIN HCl ER 500 MG Tablet Extended Release 24 Hour TAKE 3 TABLETS (1,500 MG TOTAL) BY MOUTH DAILY WITH BREAKFAST Oral Testosterone 20.25 MG/ACT (1.62%) Gel PLACE 3 ACT ON THE SKIN IN THE MORNING Transdermal PARoxetine HCl 10 MG Tablet TAKE 1 TABLET BY MOUTH EVERY DAY Oral Medication List reviewed and reconciled with the patientTaking Baclofen 10 MG Tablet Oral Taking Celecoxib 200 MG Capsule TAKE 1 CAPSULE BY MOUTH TWICE A DAY NEEDED FOR PAIN Oral Taking metFORMIN HCl ER 500 MG Tablet Extended Release 24 Hour TAKE 3 TABLETS (1,500 MG TOTAL) BY MOUTH DAILY WITH BREAKFAST Oral Taking Testosterone 20.25 MG/ACT (1.62%) Gel PLACE 3 ACT ON THE SKIN IN THE MORNING Transdermal Taking PARoxetine HCl 10 MG Tablet TAKE 1 TABLET BY MOUTH EVERY DAY Oral Medication List reviewed and reconciled with the patient * Allergies: N .K.D.A.yesAllergies Verified. Objective: * Examination: ???General Examination: ???Skin: intact without sign of infection. No rash. Neuro: LTS intact to plantar/dorsal foot. Negative tinel's sign. Vasc: Palpable pedal pulses. No bruising. No calf pain on squeeze. Mild swelling noted in the instep. MSK: POP at the proximal medial band of plantar fascia. No pain when squeezing the heel. Ankle joint dorsiflexion to neutral with knee extended but not past. Strength 5/5 in all planes. Assessment: * Assessment: 1.?Plantar fasciitis, left - M72.2 (Primary)???2.?Strain of other specified muscles and tendons at ankle and foot level, left foot, initial encounter - S96.812A?? Plan: * Treatment: Notes: Patient seen and evaluated. Patient education provided and all questions answered to satisfaction. - Achilles/calf stretching emphasized & demonstrated. Handout provided & recommended stretching at least 3x per day. - Discussed NSAIDS - continue celebrex. Recommended adding topical voltaren - Discussed potential use of plantar fascial injection - will hold off for now - Recommended physical therapy with modalities: US, E-stim. Order provided - Discussed OTC orthotics, night splint, RICE therapy and massage.???2.?Strain of other specified muscles and tendons at ankle and foot level, left foot, initial encounter? Start traMADol HCl Tablet, 50 MG, 1 tablet as needed, Orally, every 6 hrs As needed, 7 days, 28 Tablet, Refills 0.?? Notes: A few hours after his appointment he called the office relating to walking and feeling a popin his plantar left foot. Severe pain was felt and had difficulty bearing weight. He came back intothe office and his plantar fascia no longer had a normal windlass mechanism, localized swelling wasnoted. He was given a prescription for a CAM boot which he is to wear when weight bearing to reducepain while promoting stability and allow him to perform ADLs safely. He will need the CAM boot for 3 months.? A prescription for ultram was sent to his pharmacy. An injection of ropivicaine 3 cc was used for atibial nerve block was administered after cleansing skin with alcohol. He tolerated the injection well. A note was provided for work today and if he is unable to work on Sunday he will call the office.?? * Follow Up: 4 Weeks Billing Information: * Visit Code: 99849 Office Visit, New Pt., Level 3. * Procedure Codes: * Sign off status: Completed true * Provider: Camelia Cerrato DPM Date: 09/16/2024 Generated for Printing/Faxing/eTransmitting on:?07/21/2025 10:15 AM EST
--- OUTSIDE RECORDS SUMMARY | 2025-07-21 10:12 | XMS_ITS | Clinical Summary ---
Author Organization [facility] Address [address] [place] [address] Care Team Providers Care It Network Architect Name Role Phone Unavailable Primary Care Provider Unavailabl e Social History Tobacco UseTypesPacks/DayYears UsedDateSmoking Tobacco: Never AssessedUT Safety & EnvironmentAnswerDate RecordedFear of Current or Ex-PartnerNot on file 11/01/2023Emotionally AbusedNot on file11/01/2023hysically AbusedNot on file 11/01/2023Sexually AbusedNot on file11/01/2023hysically or Sexually AbusedNot on file11/01/2023Sex and Gender InformationValueDate RecordedSex Assigned at BirthNot on fileLegal PcoCpxu1803/08/2022 10:39 PM EDTGender IdentityNot on file Sexual OrientationNot on file Last Filed Vital Signs Vital SignReadingTime TakenCommentsBlood Hwbylgpq150/9412 10:54 AM EST Kcipv37857/04/2019 10:54 AM ZEXRmmangsuyya66.7 ??C (98 ??F)07/08/2019 4:05 PM EDTRespiratory Rate--Oxygen Saturation--Inhaled Oxygen Concentration--Nhwnju448 kg (409 lb 15.9 oz)12/29/2021 11:33 AM YBCXudeij147.3 cm (5' 9 )12/29/2021 11:32 AM EDTBody Mass Index60.55012/29/2021 11:32 AM EDT Plan of Treatment Health MaintenanceDue DateLast DoneCommentsCT Ynnfoiwbwpfh1977Colonoscopy 1977Colorectal Cancer Phpihnams1977FIT-DNA1977FIT1977 FOBT1977Medicare Annual Wellness (AWV)1975 0017Fzuqvbazsamed1977 Depression Xiatdzldh83/12/1989Hepatitis B Vaccines (1 of 3 - 19+ 3-dose series) 1996Adult Ajgdidi8903/21/1999Influenza Vaccine (#1)2025Zoster Vaccines (1 of 2)2027Pneumococcal Vaccine: [...] Milton VaughnAccount TypeRelation to PatientDate of BirthPhoneBilling AddressPersonal/SzgdlzAjma1975 ([place] [address]
--- OUTSIDE RECORDS SUMMARY | 2025-07-21 10:15 | XMS_ITS | Clinical Summary ---
Author Organization [facility] Address [address] [place] [address] Care Team Providers Care Visitor Use Assistant Name Role Phone Lisseth Blank MD Primary Care Provider [phone] Allergies No known active allergies Medications MedicationSigDispense [...] - Left Eye08/21/2014Open wound anterior abdominal wall09/29/2010Morbid kpyqcrx3009/29/2010 Family History Medical HistoryRelationCommentsHeartFatherCataractMaternal GrandmotherCancer SisterRelationStatusCommentsFatherMaternal GrandmotherSister Social History Tobacco UseTypesPacks/DayYears UsedDateSmoking Tobacco: FormerCigarettes1.515 06/21/1995 - 06/21/2010Smokeless Tobacco: FormerAlcohol UseStandard Drinks/Week CommentsYes0 (1 standard drink = 0.6 oz pure alcohol)2 o2 three beers every other weekendSex and Gender InformationValueDate RecordedSex Assigned at Not on fileLegal NvpBixt63/02/2012 8:32 AM ESTGender IdentityNot on fileSexual OrientationNot on file Last Filed Vital Signs Vital SignReadingTime TakenCommentsBlood Gizbqegj493/5601/ 1:15 PM EST Zwpez5566 1:15 PM PDBRvzuamvcmtl58.4 ??C (97.6 ??F)10/06/2014 11:49 AM ESTRespiratory Jpjf005410/06/2014 1:15 PM ESTOxygen Itnouhnwln01%10/06/2014 1:15 PM ESTInhaled Oxygen Concentration--Fppget813.1 kg (397 lb)09/23/2014 10:11 AM KXDZkevnu582.3 cm (5' 9 )09/23/2014 10:11 AM ESTBody Mass Index58.63009/23/2014 10:11 AM EST Plan of Treatment Health MaintenanceDue DateLast DoneCommentsAnxiety Mqquzsawb14/12/1995Depression Mherdjqwu91/12/1995HIV Numabflxt72/12/1995Hepatitis C Fhdqenwmr83/12/1995 DTaP,Tdap,Td Vaccine (1 - Tdap)1996Hepatitis B Vaccine (1 of 3 - 19+ 3- dose series)1996Lipid Pojcwxuyk25/12/2012CT Zederfadvjzz48/12/2022 Cologuard (FIT-DNA)6008Cjhgpwbvywe98/12/2022Colorectal Cancer Screening 2Diabetes Mqlqpjsyl29/, 11/24/2012, 11/23/2012, Additional history existsFecal Occult Blood03/21/20220644Adkyrqtkgpcyf63/12/2022 Covid-19 Vaccine ()05/11/2025Influenza Vaccine (#1)2025 Medical Devices ImplantedTypeAreaManufacturerDevice IdentifierShelf Expiration DateModel / Serial / LotMesh Srg Parietex 12cm 12cm - [id number] Implanted:Qty: 1 [facility]20/[facility]N/A: AbdomenCOVIDIEN USDE 05/10/[id number] / / [id number]:Parietex optimized composite mesh 12cmMesh Srg Surgipro 14x9in Niels - [id number] Implanted:Qty: 1 on 11/20/2012 at [facility] 04/09/[id number] / / [id number]:surgipro monofilament polypropylene mesh Procedures Procedure NamePriorityDate/TimeAssociated DiagnosisCommentsBASIC METABOLIC PANEL Kzomofh7011/26/2012 5:38 AM EDT from Last 3 Months or Most Recently Relevant to Health Maintenance Results * (ABNORMAL) BASIC METABOLIC PNL (11/26/2012 5:38 AM EDT)ComponentValueRef Range Test MethodAnalysis TimePerformed AtPathologist YbxhbwgcpZjdykxl4342 - 100 mg/dLOHIOHEALTH [facility]'BLENESS [facility] LABORATORYBUN7(L)10 - 25 mg/dLOHIOHEALTH [facility]'BLENESS [facility] LABORATORYCreatinine0.740.70 - 1.40 mg/dLOHIOHEALTH O'BLENESS [facility] LAB[facility]ORY Nfidfi008016 - 146 mmol/LCAKRON CHILDREN'S HOSPITAL LABORATORYPotassium3.4(L)3.5 - 5.0 mmol/LCKETTERING [facility]ALTH [facility]FIELD [facility] OWRNMHCLIMZalowxeg08(L)98 - 110 mmol/L [facility] AZAKKNSOFLDA128(H)23 - 32 mmol/LCKETTERING [facility] LABORATORYAnion Gap90 - 15 mmol/LCAKRON CHILDREN'S HOSPITAL LABORATORYCalcium8.68.5 - 10.5 mg/dLOHIOHEALTH O'BLENESS HOSPITAL LABORATORYSpecimen (Source)Anatomical Location / LateralityCollection Method / VolumeCollection TimeReceived Time Blood specimen (specimen)BLOOD SPECIMEN / Dnrhiur1211/26/2012 5:38 AM EDT 11/26/2012 5:39 AM EDT Narrative Authorizing ProviderResult TypeResult StatusStevkaushal See MDLABORATORYFinal ResultPerforming OrganizationAddressCity/State/ZIP CodePhone Number [facility] [address] [place] [address] from Last 3 Months or Most Recently Relevant to Health Maintenance Insurance * Guarantor: Milton Vaughn TypeRelation to PatientDate of BirthPhone Billing AddressSelf YfvYups43 [address] [place] [address] Care Teams Team MemberRelationshipSpecialtyStart DateEnd Date Lisseth Blank MD [address] [place] [address] [facility] - Xtsefir67/22/10
--- OUTSIDE RECORDS SUMMARY | 2025-07-21 10:15 | XMS_ITS | Patient Health Record ---
Author Organization [facility] Address [address] [address], [place] [address] Care Team Providers Care Managing Principal Name Role Phone Alexia Mancilla Primary Care Provider UnavailJeremy Camarillo Unavailable [phone] Allergies No Known Allergies Reason For Referral No Information Medications Medication SIG (Take, Route, Frequency, Duration) Notes Start Date End Date Status traMADol HCl 50 MG Tablet 1 tablet as needed Orally every 6 hrs; Duration: 7 days As needed 07/17/2025tivePARoxetine HCl 10 MG TabletTAKE 1 TABLET BY MOUTH EVERY DAY Oral; Duration: 90 DaysActiveTestosterone 20.25 MG/ACT (1.62%) GelPLACE 3 ACT ON THE SKIN IN THE MORNING Transdermal; Duration: 23 DaysActivemetFORMIN HCl ER 500 MG Tablet Extended Release 24 HourTAKE 3 TABLETS (1,500 MG TOTAL) BY MOUTH DAILY WITH BREAKFAST Oral; Duration: 90 DaysActiveCelecoxib 200 MG CapsuleTAKE 1 CAPSULE BY MOUTH TWICE A DAY NEEDED FOR PAIN Oral; Duration: 30 DaysActive Baclofen 10 MG TabletOral; Duration: 30 DaysActive Social History Section Notes: Former tobacco use. Social alcohol use. 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) P lantar fasciitis, left (M72.2) Activeconfirmed Encounters Encounter Location Date Provider Diagnosis [facility] [address] [address], [place] [address] 07/17/2025 Jeremy Cerrato Plantar fasciitis, left M72.2 and Strain of other specified muscles and tendons at ankle and foot level, left foot, initial encounter S96.812A Assessments Encounter Date Diagnosis (ICD Code) Assessment Notes Treatment Notes Treatment Clinical Notes Section Notes 07/17/2025 Strain of other spec ified muscles and tendons at ankle and foot level, left foot, initial encounter (ICD-10 - S96.812A) A few hours after his [...] on Sunday he will call the office. 07/17/2025Plantar fasciitis, left (ICD-10 - M72.2) Patient seen [...] orthotics, night splint, RICE therapy and massage. Plan Of Treatment Next Appt Details Provider Name:Jeremy back, 08/21/2025 09:30:00 AM, [address] [facility] [address], [place], [address], Insurance Providers Payer Name Payer Address Payer Phone Subscriber Number Group Number Insured Name Patient Relationship to Insured Coverage Start Date Coverage End Date [employer] [place] [address] [place], [place] [id number] Maribel Vaughn - patient is the insured Medical (General) History Medical History History ICD Code Arthritis DiabetesDepression
--- OUTSIDE RECORDS SUMMARY | 2025-07-21 10:15 | XMS_ITS | Clinical Summary ---
Author Organization [facility] Address [address] [place] [address] Care Team Providers Care Digital Field Service Technician Name Role Phone Lisseth Blank MD Primary Care Provider [phone] Allergies Active AllergyReactionsCriticalityNoted VikzHhgnpeolSotuy69/27/2023 environmental Medications MedicationSigDispense QuantityRefillsLast FilledStart DateEnd DateStatus [...] Problems ProblemNoted DateDiagnosed DatePerforation of left tympanic mfwkieto88/02/2023 Chronic caczdraa69/27/2023ysfunction of both eustachian tubes04/05/2023 Jeuruvnnah93/27/2023LPRD (laryngopharyngeal reflux disease)04/05/2023Otorrhea of right ear04/05/2023erforation of right tympanic wvioaowe55/27/2023Sensorineural hearing loss, sqkydnrla18/27/4283Jmhohpkdka16/27/2023NASH (nonalcoholic steatohepatitis)04/05/2023OSA (obstructive sleep apnea)04/05/2023Sinus jgqnkucjtlq64/27/2023 Immunizations ImmunizationAdministration DatesNext DueInfluenza, injectable, quadrivalent, preservative free05/31/2023,06/07/2022Influenza, seasonal, injectable, preservative free07/08/2024Novel qlfrhpvzr-V8B4-68, preservative-free08/18/2009 Pneumococcal Polysaccharide [id number] Family History Medical HistoryRelationNameCommentsHeart failureFatherDiabetesMaternal GrandfatherCancerSisterRelationNameStatusCommentsFatherAliveMaternal Grandfather MotherAliveSister Social History Tobacco UseTypesPacks/DayYears UsedDateSmoking Tobacco: NeverSmokeless Tobacco: Never Tobacco Cessation:Counseling Given: Not Answered Alcohol UseStandard Drinks/WeekCommentsNot Currently0 (1 standard drink = 0.6 oz pure alcohol)Sex and Gender InformationValueDate RecordedSex Assigned at Not on fileLegal UnuJkhz8411/22/2022 6:44 PM EDTGender IdentityNot on fileSexual OrientationNot on file Last Filed Vital Signs Vital SignReadingTime TakenCommentsBlood Tiysejkz306/8508 11:31 AM EDT Pulse--Temperature--Respiratory Rate--Oxygen Saturation--Inhaled Oxygen Concentration--Itgwwe791 kg (375 lb)11/05/2024 10:17 AM DWPCudksj590.3 cm (5' 9 )11/05/2024 10:17 AM ESTBody Mass Index55.38011/05/2024 10:17 AM EST Plan of Treatment Not on file Insurance Care Teams Team MemberRelationshipSpecialtyStart DateEnd Date Lisseth Blank MD [address] [place] [phone] PCP - GeneralFamily Medicine04/05/23
--- OUTSIDE RECORDS SUMMARY | 2025-07-21 10:15 | XMS_ITS | Clinical Summary ---
Author Organization [facility] tem Address [facility] [id number] [address] [place] [address] Care Team Providers Care Carpet Mechanic Name Role Phone Alexia Mancilla APRN-STATION MASTER Primary Care Provider [phone] [phone] Allergies No known active allergies Medications MedicationSigDispense [...] skin in the morning. 75 g 5Active Encounters DateTypeDepartmentCare VkvdBeayokrxrbn00/26/2025[facility] [address] [place] [phone] Nury Quinteros MD Low 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05/14/2025Orders Only [facility] [address] [phone] Ref Prov, Not In System 04/24/2025 10:00 AM EDTOffice Visit [facility] [address] [place] [phone] Nury Quinteros MD Insulin resistance (Primary Dx); Incisional hernia, without obstruction or gangrene; Low 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; Morbid obesity with BMI of 50.0-59.9, adult ([facility])04/24/2025Refill [facility] [address] [place] [phone] Nury Quinteros MD 04/24/20257631Xjfheu62/14/2025Orders Only [facility] [address] [phone] Ref Prov, Not In System from Last 3 Months Family History Medical HistoryRelationNameCommentsHeart failureFatherDiabetesMaternal GrandfatherCancerSisterCervical cancerSisterRelationNameStatusCommentsFather AliveMaternal GrandfatherMotherAliveSisterDeceased Social History Tobacco UseTypesPacks/DayYears UsedDateSmoking Tobacco: FormerCigarettes Smokeless Tobacco: Never Tobacco Cessation:Counseling Given: Not Answered Alcohol UseStandard Drinks/WeekCommentsNot Asked0 (1 standard drink = 0.6 oz pure alcohol)SOCIALLYChildcareAnswerDate IbebzqcgDcwspjfcmMyslkcb88/12/2019 EmploymentAnswerDate QsfcshpeAujjlbsbjrQqenbtr84/12/2019Sex and Gender InformationValueDate RecordedSex Assigned at BirthNot on fileLegal SexMale 04/15/2015 12:09 PM EDTGender IdentityNot on fileSexual OrientationNot on file Last Filed Vital Signs Vital SignReadingTime TakenCommentsBlood Vnkoosuu462/8368301/23/2025 9:34 AM EDT Pulse--Temperature--Respiratory Rate--Oxygen Saturation--Inhaled Oxygen Concentration--Fnsaxk409.3 kg (384 lb 3.2 oz)04/24/2025 9:55 AM JTMNgegfx981.3 cm (5' 9 )04/24/2025 9:55 AM EDTBody Mass Index56.7404/24/2025 9:55 AM EDT Plan of Treatment DateTypeDepartmentCare Team (Latest Contact Info)Clafjxemvwb99/14/2025 9:00 AM ESTOffice Visit [facility] [address] [place] [address] Nury Quinteros MD [address] [place] [address] Health MaintenanceDue DateLast DoneCommentsDepression Duifaqelw36/12/1989 DTaP,Tdap and Td Vaccines (1 - Tdap)1996COVID-19 Vaccine (3 - season)/01/2021, 10/22/2020Influenza Skqqhtk14/, 05/31/2023, 06/07/2022, Additional history existsAdult BMI Follow Up Plan /dult BMI Ftcpujccm25Tobacco Screening Medical Devices Not on file Procedures Procedure NamePriorityDate/TimeAssociated DiagnosisCommentsCT ABDOMEN AND PELVIS W RRXKPrgjkfu38/04/2025 8:24 AM EDTMULTIPLE JYFOKpvbcwa76/14/2025 9:35 AM EDT MULTIPLE LMRPIikozcn11/14/2025 9:03 AM EDTfrom Last 3 Months Results [...] Teams Team MemberRelationshipSpecialtyStart DateEnd Date Alexia Mancilla, SILVERWARE ASSEMBLER-STATION MASTER [address] [place] [address] PCP - GeneralNurse Practitioner11/28/24
--- OUTSIDE RECORDS SUMMARY | 2025-07-21 10:15 | XMS_ITS | Clinical Summary ---
Author Organization [facility] Address [address] [facility], [address] [place] [address] Care Team Providers Care Cloth Finishing Range Back Tender Name Role Phone Unavailable Primary Care Provider Unavailabl e Social History Tobacco UseTypesPacks/DayYears UsedDateSmoking Tobacco: Never AssessedSex and Gender InformationValueDate RecordedSex Assigned at BirthNot on fileLegal Sex Male10/20/2012 10:59 AM ESTGender IdentityNot on fileSexual OrientationNot on file Plan of Treatment Health MaintenanceDue DateLast DoneCommentsDepression Xovsvo6703/21/1989HIV screen 1992Hepatitis C ttoccd9603/21/1995DTaP/Tdap/Td vaccine (1 - Tdap)1996 Hepatitis B vaccine (1 of 3 - 19+ 3-dose series)03/21/19961028Ewqymv09/12/2017 Fjlojntswde50/12/2022olorectal Cancer Qkfspn6503/21/2022FIT/FOBT: Average risk 2022Fecal-DNA (Cologuard): Average risk2022igmoidoscopy/CT zeeoawcrtmmx69/12/2022Flu vaccine (#1)509/, 06/07/2022, 08/18/2009COVID-19 Vaccine ( season)503/01/2021, [...]
--- OUTSIDE RECORDS SUMMARY | 2025-07-21 10:15 | XMS_ITS | Patient Health Record ---
Author Organization [facility] Address [address] [place] [address] Care Team Providers Care Access Liaison Name Role Phone Jose Romero Unavailable [phone] Allergies No Known Allergies Reason For Referral [...] containging alcohol in the last year? Yes Pclgfk0SvdhjxkuqiicvuGisanykf Problems Problem Type SNOMED Code ICD Code Onset Dates Problem Status W/U Status Risk Notes Problem [id number] Unilateral primary osteoa rthritis, left hip (M16.12) FinvkpbqzvfltooZakkwab959074080Qigxhn stenosis, lumbosacral region (M48.07) LeehmkxunwzpovcHcrflhq20050207Plirm intervertebral disc degeneration, lumbosacral region (M51.37)CwxfkydnnyfbenaOgimfqn030845617Hnxodv spondylosis (M47.816)Activeconfirmed Plan Of Treatment No Information Insurance Providers Payer Name Payer Address Payer Phone Subscriber Number Group Number Insured Name Patient Relationship to Insured Coverage Start Date Coverage End Date [employer] [address] [place] [address] [id number] RAKESH PIÑA Self - patient is the insured Medical (General) History Medical History History ICD Code Sleep apnea CPAP Machine:Do you use the CPAP machine? YesSurgical History Surgery Date(Month/Year) Bariatric 2010
[2025-07-21 10:59] LABS: Hematocrit 47.0 % (42.0-54.0); Hemoglobin 15.3 g/dL (14.0-18.0); Immature Granulocytes Abs Auto 0.08 10^3/uL (0.00-0.03); Immature Granulocytes Pct Auto 0.7 % (0.0-0.5); Lymphocytes Absolute Auto 1.9 10^3/uL (1.2-3.8); Mean Corpuscular HGB Conc 32.6 g/dL (29.9-35.2); Mean Corpuscular Hemoglobin 28.5 pg (25.9-34.0); Mean Corpuscular Volume 87.7 fL (80.0-94.0); Platelet Count 271 10^3/uL (150-450); Red Blood Count 5.36 10^6/uL (4.70-6.10); White Blood Count 11.6 10^3/uL (4.0-11.0)
[2025-07-21 11:13] LABS: Anion Gap 8.5; Blood Urea Nitrogen 16.0 mg/dL (7.0-18.0); Calcium 9.7 mg/dL (8.5-10.1); Carbon Dioxide 30.4 mmol/L (21.0-32.0); Chloride 103 mmol/L (98-107); Estimated GFR (African America >60 (>=60 mL/min/1.73m^2); Estimated GFR (Non-African Ame >60 (>=60 mL/min/1.73m^2); Glucose 82 mg/dL (74-106); Potassium 3.9 mmol/L (3.5-5.1); Sodium 138 mmol/L (136-145)
== END 2025-07-21 10:07 | disposition home or self-care (01) ==
LOC: LAB 10:09
PROVIDERS: PCP Nurse Practitioner; Visit Provider Student in an Organized Health Care Education/Training Program
DX: R79.89 Other specified abnormal findings of blood chemistry (principal); Z12.5 Encounter for screening for malignant neoplasm of prostate
CPT/HCPCS: 36415; 80048; 83525; 83527; 84402; 84403; 85025; G0103

== ENCOUNTER 2025-08-12 09:35 | Outpatient (OUT) | payer OTHER, SELFPAY ==
--- OUTSIDE RECORDS SUMMARY | 2025-08-12 09:38 | XMS_ITS | Encounter Summary ---
[facility] [id number] [address] [place] [address] Care Team Providers Care Circulation Representative Name Role Phone Shanita MancillaNoy LINDQUIST-INDUSTRIAL COOK Primary Care Provider [phone] [phone] Encounter Details DateTypeDepartmentCare Team (Latest Contact Info)Ggwrihknwtd81/20/2025Orders Only [facility] [address] [facility] [address] [place] [address] Ref Prov, [place] [address] Social History Tobacco UseTypesPacks/DayYears UsedDateSmoking Tobacco: FormerCigarettes Smokeless Tobacco: NeverAlcohol UseStandard Drinks/WeekCommentsNot Asked0 (1 standard drink = 0.6 oz pure alcohol)SOCIALLYAUDIT-CAnswerDate RecordedQ1: How often do you have a drink containing alcohol?Never07/24/2025verage Number of DrinksNot on file07/24/2025Frequency of Binge DrinkingNot on file07/24/2025 ChildcareAnswerDate AvnzghenNcwwlmmevMtrlsgf45/12/2019EmploymentAnswerDate PnwbiiuqCzvccgnvkmOdfihkg45/12/2019Sex and Gender InformationValueDate Recorded Sex Assigned at BirthNot on fileLegal PuyQaua1104/15/2015 12:09 PM EDTGender IdentityNot on fileSexual OrientationNot on filedocumented as of this encounter Plan of Treatment Not on file documented as of this encounter Procedures Procedure NamePriorityDate/TimeAssociated DiagnosisCommentsMULTIPLE LABSRoutine 07/30/2025 10:11 AM ESTMULTIPLE ONNCKbxzdzg42/20/2025 10:10 AM ESTdocumented in this encounter Results * Multiple labs (07/30/2025 10:11 AM EST) Narrative Authorizing ProviderResult TypeResult StatusNot In System Ref ProvPR IMAGING Final ResultPerforming OrganizationAddressty/State/ZIP CodePhone Number MANUALLY TRANSCRIBED RESULTS * Multiple labs (07/30/2025 10:10 AM EST) Narrative Authorizing ProviderResult TypeResult StatusNot In System Ref ProvPR IMAGING Final ResultPerforming OrganizationAddressty/State/ZIP CodePhone Number MANUALLY TRANSCRIBED RESULTS documented in this encounter Visit Diagnoses Not on filedocumented in this encounter Care Teams Team MemberRelationshipSpecialtyStart DateEnd Date Alexia Mancilla, GLASS ETCHER-INDUSTRIAL COOK [address] [place] [address] PCP - GeneralNurse Practitioner11/28/24documented as of this encounter
--- OUTSIDE RECORDS SUMMARY | 2025-08-12 09:38 | XMS_ITS | Clinical Summary ---
Author Organization [facility] tem Address [facility] [id number] [address] [place] [address] Care Team Providers Care Student Life Dean Name Role Phone Alexia Mancilla APRN-CRYPTOGRAPHER Primary Care Provider [phone] [phone] Allergies No known active allergies Medications MedicationSigDispense [...] 1 tablet (10 mg total) by mouth.Active cyanocobalamin, vitamin B-12, (VITAMIN B-12 ORAL) Vitamin B-12Active buPROPion SR (WELLBUTRIN SR) 150 mg 12 hr tablet Take 1 tablet (150 mg total) by mouth in the morning and 1 tablet (150 mg total) before bedtime.Active celecoxib (CeleBREX) 200 mg capsule Take 1 capsule (200 mg total) by mouth in the morning.5Active TURMERIC ORAL Take by mouth.Active ASHWAGANDHA EXTRACT ORAL Take by mouth.Active traMADoL (ULTRAM) 50 mg tablet Take 1 tablet (50 mg total) by mouth every 6 (six) hours as needed for pain. 5Active testosterone (ANDROGEL) 20.25 mg/1.25 gram (1.62 %) gel in metered-dose pump Indications:Low 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Place 3 Act (60.75 mg total) on the skin in the morning. 75 g 5Active metFORMIN (FORTAMET) 500 MG (OSM) 24 hr tablet Indications:Insulin resistanceTake 3 tablets (1,500 mg total) by mouth daily with breakfast. 270 tablet 5Active tiZANidine (ZANAFLEX) 4 mg tablet Take 1 tablet (4 mg total) by mouth nightly.Discontinued (Formulary change) metFORMIN (FORTAMET) 500 MG (OSM) 24 hr tablet TAKE 3 TABLETS (1,500 MG TOTAL) BY MOUTH DAILY WITH BREAKFAST 270 tablet Discontinued(Reorder) testosterone (ANDROGEL) 20.25 mg/1.25 gram (1.62 %) gel in metered-dose pump Indications:Low 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Place 3 Act (60.75 mg total) on the skin in the morning. 75 g Discontinued(Reorder) baclofen (LIORESAL) 10 mg tablet Take 1 tablet (10 mg total) by mouth nightly as needed.07/24/2025Discontinued (Therapy completed) Encounters DateTypeDepartmentCare FygjEecpmbfmcit64/20/2025Orders Only [facility] [address] [facility] [address] [place] [phone] Ref Prov, Not In System 07/27/2025Orders Only [facility] [address] [place] [phone] Ref Prov, Not In System 07/24/2025 9:00 AM ESTOffice Visit [facility] [address] [place] [address] Nury Quinteros MD Morbid obesity with BMI of 50.0-59.9, adult ([facility]) (Primary Dx); Low 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; Insulin resistance; Abdominal wall mass of epigastric cjnriv3707/24/20258919Umndpr76/26/2025Refill [facility] [address] [place] [address] Nury Quinteros MD Low 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05/14/2025Orders Only [facility] [address] [facility] [place] [address] Ref Prov, Not In System from Last 3 Months Family History Medical HistoryRelationNameCommentsHeart failureFatherDiabetesMaternal GrandfatherNo Known ProblemsMotherCancerSisterCervical cancerSisterRelationName StatusCommentsFatherAliveMaternal GrandfatherMotherAliveSisterDeceased Social History Tobacco UseTypesPacks/DayYears UsedDateSmoking Tobacco: FormerCigarettes Smokeless Tobacco: Never Tobacco Cessation:Counseling Given: Not Answered Alcohol UseStandard Drinks/WeekCommentsNot Asked0 (1 standard drink = 0.6 oz pure alcohol)SOCIALLYAUDIT-CAnswerDate RecordedQ1: How often do you have a drink containing alcohol?Never07/24/2025verage Number of DrinksNot on file07/24/2025 Frequency of Binge DrinkingNot on file07/24/2025hildcareAnswerDate Recorded AraaynhojChgnxoa64/12/2019EmploymentAnswerDate RecordedEmploymentUnknown 02/19/2019Sex and Gender InformationValueDate RecordedSex Assigned at BirthNot on fileLegal XemJuaj0104/15/2015 12:09 PM EDTGender IdentityNot on fileSexual OrientationNot on file Last Filed Vital Signs Vital SignReadingTime TakenCommentsBlood Fqdasddv412/9607/24/2025 8:54 AM EST Qhwfv858007/24/2025 8:54 AM ESTTemperature--Respiratory Rate--Oxygen Saturation-- Inhaled Oxygen Concentration--Psikbu721.3 kg (373 lb 3.2 oz)07/24/2025 8:54 AM ISNQavgsn526.3 cm (5' 9 )07/24/2025 8:54 AM ESTBody Mass Index55. 8:54 AM EST Plan of Treatment Health MaintenanceDue DateLast DoneCommentsDepression Pgksvlmyg49/12/1989 DTaP,Tdap and Td Vaccines (1 - Tdap)1996COVID-19 Vaccine (3 - season)503/01/2021, 10/22/2020Influenza Hhkmrtn62/, 05/31/2023, 06/07/2022, Additional history existsAdult BMI Follow Up Plan /dult BMI Gvpgajevf09Tobacco Screening Medical Devices Not on file Procedures Procedure NamePriorityDate/TimeAssociated DiagnosisCommentsMULTIPLE LABSRoutine 07/30/2025 10:11 AM ESTMULTIPLE YMGIDhybtuq02/20/2025 10:10 AM ESTMULTIPLE LABS Vuitomm85/11/2025CT ABDOMEN AND PELVIS W GWOWLakkdfq05/04/2025 8:24 AM EDTfrom Last 3 Months Results * Multiple labs (07/30/2025 10:11 AM EST) Only the most recent of3 resultswithin the time period is included. Narrative Authorizing ProviderResult TypeResult StatusNot In System Ref ProvPR IMAGING Final ResultPerforming OrganizationAddressCity/State/ZIP CodePhone Number MANUALLY TRANSCRIBED RESULTS * CT abdomen and pelvis with contrast (05/14/2025 8:24 AM EDT)Anatomical Region LateralityModalityBody, Abdomen, Body CoveraN/AComputed Tomography Narrative Authorizing ProviderResult TypeResult StatusNot In System Ref ProvIMG CT ORDERABLESFinal Result from Last 3 Months Insurance MemberSubscriberPlan / Payer (Effective 2025-Present)Name:RoderickMilton Relation to Subscriber:SelfName:Milton Vaughn Payer ID:Not on file Type:Not on file Address: [address] [place] [id number] Care Teams Team MemberRelationshipSpecialtyStart DateEnd Date Alexia Mancilla, HAIR SAMPLE MATCHER-CRYPTOGRAPHER [facility] [place] [address] PCP - GeneralNurse Practitioner11/28/24
--- OUTSIDE RECORDS SUMMARY | 2025-08-12 09:38 | XMS_ITS | Clinical Summary ---
Author Organization [facility] Address [address] [place] [address] Care Team Providers Care [employer] Name Role Phone Lisseth Blank MD Primary Care Provider [phone] Allergies Active AllergyReactionsCriticalityNoted CqnvNpcfcoidKxmft35/27/2023 environmental Medications MedicationSigDispense QuantityRefillsLast FilledStart DateEnd DateStatus [...] Problems ProblemNoted DateDiagnosed DatePerforation of left tympanic nlqilfsb79/02/2023 Chronic lifzqbrt51/27/2023ysfunction of both eustachian tubes04/05/2023 Wywyvsswsu42/27/2023LPRD (laryngopharyngeal reflux disease)04/05/2023Otorrhea of right ear04/05/2023erforation of right tympanic stbsnyie08/27/2023Sensorineural hearing loss, kycrjopkm67/27/3214Wpmehrdvbd92/27/2023NASH (nonalcoholic steatohepatitis)04/05/2023OSA (obstructive sleep apnea)04/05/2023Sinus ahribmjsnqa81/27/2023 Immunizations ImmunizationAdministration DatesNext DueInfluenza, injectable, quadrivalent, preservative free05/31/2023,06/07/2022Influenza, seasonal, injectable, preservative free07/08/2024Novel gpqzvjltv-J7U6-21, preservative-free08/18/2009 Pneumococcal Polysaccharide JKUT5138 Family History Medical HistoryRelationNameCommentsHeart failureFatherDiabetesMaternal GrandfatherCancerSisterRelationNameStatusCommentsFatherAliveMaternal Grandfather MotherAliveSister Social History Tobacco UseTypesPacks/DayYears UsedDateSmoking Tobacco: NeverSmokeless Tobacco: Never Tobacco Cessation:Counseling Given: Not Answered Alcohol UseStandard Drinks/WeekCommentsNot Currently0 (1 standard drink = 0.6 oz pure alcohol)Sex and Gender InformationValueDate RecordedSex Assigned at Not on fileLegal LzxVequ6911/22/2022 6:44 PM EDTGender IdentityNot on fileSexual OrientationNot on file Last Filed Vital Signs Vital SignReadingTime TakenCommentsBlood Hdxofixk543/8508 11:31 AM EDT Pulse--Temperature--Respiratory Rate--Oxygen Saturation--Inhaled Oxygen Concentration--Yederu944 kg (375 lb)11/05/2024 10:17 AM ZKBUwuiqi994.3 cm (5' 9 )11/05/2024 10:17 AM ESTBody Mass Index55.38011/05/2024 10:17 AM EST Plan of Treatment Not on file Insurance Care Teams Team MemberRelationshipSpecialtyStart DateEnd Date Lisseth Blank MD [address] [place] [phone] PCP - GeneralFamily Medicine04/05/23
--- OUTSIDE RECORDS SUMMARY | 2025-08-12 09:38 | XMS_ITS | Clinical Summary ---
Author Organization [facility] Address [address] [facility], [address] [place] [address] Care Team Providers Care Mainframe Developer Name Role Phone Unavailable Primary Care Provider Unavailabl e Social History Tobacco UseTypesPacks/DayYears UsedDateSmoking Tobacco: Never AssessedSex and Gender InformationValueDate RecordedSex Assigned at BirthNot on fileLegal Sex Male10/20/2012 10:59 AM ESTGender IdentityNot on fileSexual OrientationNot on file Plan of Treatment Health MaintenanceDue DateLast DoneCommentsDepression Zetgzh4303/21/1989HIV screen 1992Hepatitis C iwhiyw6603/21/1995DTaP/Tdap/Td vaccine (1 - Tdap)1996 Hepatitis B vaccine (1 of 3 - 19+ 3-dose series)03/21/19961712Mldsna60/12/2017 Seakbrlisch32/12/2022olorectal Cancer Xxtdgm5603/21/2022FIT/FOBT: Average risk 2022Fecal-DNA (Cologuard): Average risk2022igmoidoscopy/CT vltylndukuax76/12/2022Flu vaccine (#1)509/, 06/07/2022, 08/18/2009COVID-19 Vaccine ( season)503/01/2021, [...]
--- OUTSIDE RECORDS SUMMARY | 2025-08-12 09:38 | XMS_ITS | Clinical Summary ---
Author Organization [facility] Address [address] [place] [place] [address] Care Team Providers Care Family Counselor Name Role Phone Unavailable Primary Care Provider Unavailabl e Social History Tobacco UseTypesPacks/DayYears UsedDateSmoking Tobacco: Never AssessedUT Safety & EnvironmentAnswerDate RecordedFear of Current or Ex-PartnerNot on file 11/01/2023Emotionally AbusedNot on file11/01/2023hysically AbusedNot on file 11/01/2023Sexually AbusedNot on file11/01/2023hysically or Sexually AbusedNot on file11/01/2023Sex and Gender InformationValueDate RecordedSex Assigned at BirthNot on fileLegal MoyUdpv3703/08/2022 10:39 PM EDTGender IdentityNot on file Sexual OrientationNot on file Last Filed Vital Signs Vital SignReadingTime TakenCommentsBlood Kpkfkdbm105/9412 10:54 AM EST Dxbza10371/04/2019 10:54 AM HISXzbhfvndwrz98.7 ??C (98 ??F)07/08/2019 4:05 PM EDTRespiratory Rate--Oxygen Saturation--Inhaled Oxygen Concentration--Jttzbq446 kg (409 lb 15.9 oz)12/29/2021 11:33 AM EHCVrqhrs340.3 cm (5' 9 )12/29/2021 11:32 AM EDTBody Mass Index60.55012/29/2021 11:32 AM EDT Plan of Treatment Health MaintenanceDue DateLast DoneCommentsCT Tkeizmurgzlp1977Colonoscopy 1977Colorectal Cancer Otegvqdqd1977FIT-DNA1977FIT1977 FOBT1977Medicare Annual Wellness (AWV)1977 5578Yelnzsdddwkri1977 Depression Rnerkilvg16/12/1989Hepatitis B Vaccines (1 of 3 - 19+ 3-dose series) 1996Adult Glpkjjm6003/21/1999Influenza Vaccine (#1)2025Zoster Vaccines (1 of 2)2027Pneumococcal Vaccine: [...] Milton VaughnAccount TypeRelation to PatientDate of BirthPhoneBilling AddressPersonal/SdylivGbau1975 ([place] [address]
--- OUTSIDE RECORDS SUMMARY | 2025-08-12 09:38 | XMS_ITS | Clinical Summary ---
Author Organization [facility] Address [address] [place] [address] Care Team Providers Care Income Tax Manager Name Role Phone Lisseth Blank MD Primary Care Provider [phone] Allergies No known active allergies Medications MedicationSigDispense [...] - Left Eye08/21/2014Open wound anterior abdominal wall09/29/2010Morbid iqnxmvt9409/29/2010 Family History Medical HistoryRelationCommentsHeartFatherCataractMaternal GrandmotherCancer SisterRelationStatusCommentsFatherMaternal GrandmotherSister Social History Tobacco UseTypesPacks/DayYears UsedDateSmoking Tobacco: FormerCigarettes1.515 06/21/1995 - 06/21/2010Smokeless Tobacco: FormerAlcohol UseStandard Drinks/Week CommentsYes0 (1 standard drink = 0.6 oz pure alcohol)2 o2 three beers every other weekendSex and Gender InformationValueDate RecordedSex Assigned at Not on fileLegal HilBzwp04/02/2012 8:32 AM ESTGender IdentityNot on fileSexual OrientationNot on file Last Filed Vital Signs Vital SignReadingTime TakenCommentsBlood Lvfrsofh347/5601/ 1:15 PM EST Zmtfq7290 1:15 PM OYPRgzkoeekzly19.4 ??C (97.6 ??F)10/06/2014 11:49 AM ESTRespiratory Uzcm406910/06/2014 1:15 PM ESTOxygen Cdbjitupsz72%10/06/2014 1:15 PM ESTInhaled Oxygen Concentration--Rthkps270.1 kg (397 lb)09/23/2014 10:11 AM DJRFihfpz462.3 cm (5' 9 )09/23/2014 10:11 AM ESTBody Mass Index58.63009/23/2014 10:11 AM EST Plan of Treatment Health MaintenanceDue DateLast DoneCommentsAnxiety Autbmhiqb34/12/1995Depression Zwqtjvkwq34/12/1995HIV Bljrlhoiu62/12/1995Hepatitis C Kqbapkkvw67/12/1995 DTaP,Tdap,Td Vaccine (1 - Tdap)1996Hepatitis B Vaccine (1 of 3 - 19+ 3- dose series)1996Lipid Evobzpgsv36/12/2012CT Rtmgzixyrwnz39/12/2022 Cologuard (FIT-DNA)3493Wygjfavqvrr60/12/2022Colorectal Cancer Screening 2Diabetes Vdjxzdcpt60/, 11/24/2012, 11/23/2012, Additional history existsFecal Occult Blood03/21/20225127Euwiedoywhxxk55/12/2022 Covid-19 Vaccine ()05/11/2025Influenza Vaccine (#1)2025 Medical Devices ImplantedTypeAreaManufacturerDevice IdentifierShelf Expiration DateModel / Serial / LotMesh Srg Parietex 12cm 12cm - [id number] [facility]planted:Qty: 1 [facility]20[facility] AbdomenCOVIDIEN USNV 05/10/[id number] / / [id number]:Parietex optimized composite mesh 12cmMesh Srg Surgipro 14x9in Niels - [id number] Implanted:Qty: 1 on 11/20/2012 at [facility] 04/09/[id number] / / [id number]:surgipro monofilament polypropylene mesh Procedures Procedure NamePriorityDate/TimeAssociated DiagnosisCommentsBASIC METABOLIC PANEL Jsczlkc9111/26/2012 5:38 AM EDT from Last 3 Months or Most Recently Relevant to Health Maintenance Results * (ABNORMAL) BASIC METABOLIC PNL (11/26/2012 5:38 AM EDT)ComponentValueRef Range Test MethodAnalysis TimePerformed AtPathologist AviegrmoiKypgffz4090 - 100 mg/dLCOSHOCTON REGIONAL [facility] LABORATORYBUN7(L)10 - 25 mg/dLCOSHOCTON REGIONAL MEDICAL CENTER LABORATORYCreatinine0.740.70 - 1.40 mg/dLCOSHOCTON REGIONAL MEDICAL C[facility] LABORATORY Negabu168812 - 146 mmol/LCTOLEDO HOSPITAL LABORATORYPotassium3.4(L)3.5 - 5.0 mmol/LCGEORGETOWN BEHAVIORAL [facility]IN LGSVGNTDJZCnqljtqc24(L)98 - 110 mmol/L [facility] ISNAKPQKZDXX437(H)23 - 32 mmol/LCGEORGETOWN BEHAVIORAL HOSP[facility] MAIN LABORATORYAnion Gap90 - 15 mmol/LCTOLEDO HOSPITAL LABORATORYCalcium8.68.5 - 10.5 mg/dLCOSHOCTON REGIONAL MEDICAL [facility]ENTER LABORATORYSpecimen (Source)Anatomical Location / LateralityCollection Method / VolumeCollection TimeReceived Time Blood specimen (specimen)BLOOD SPECIMEN / Uifuqwt2211/26/2012 5:38 AM EDT 11/26/2012 5:39 AM EDT Narrative Authorizing ProviderResult TypeResult StatusStevkaushal See MDLABORATORYFinal ResultPerforming OrganizationAddressCity/State/ZIP CodePhone Number [facility] [address] [place] [address] from Last 3 Months or Most Recently Relevant to Health Maintenance Insurance * Guarantor: Milton Vaughn TypeRelation to PatientDate of BirthPhone Billing AddressSelf [id number] [address] [place] [address] Care Teams Team MemberRelationshipSpecialtyStart DateEnd Date Lisseth Blank MD [address] [place] [address] [facility] - Adgvwam11/22/10
--- NOTE | 2025-08-12 10:06 | PM.CN ---
Consult Note: HPI Data of Consult Patient: known to practice within the last 3 years Consult date: 07/08/25 Requesting Physician: Liliane Garcia NP Primary Care Provider: EFFIE SARMIENTO Consult Narrative Reason for consult: back and BLE pain Narrative: Milton Vaughn a pleasant 50 year old male with chronic low back pain secondary to lumbar spondylosis, lumbar stenosis, lumbar DDD presents for evaluation. Pt noticing over the three months increased low back and BLE pain post fall. pt did attempt additional 6 visits of PT without improvement in his pain or quality of life. Pain today 6-7/10 increasing to 10/10 with sleep and upon waking. utilizing celebrex with minimal relief, stoppped baclofen due to ineffectiviness. cc:: CC: Liliane Garcia NP Review of Systems ROS Musculoskeletal Reports: back pain and extremity pain PFSH PFS Medical History Osteoarthritis ?M19.90 - Unspecified osteoarthritis, unspecified site (ICD-10) KWAN on CPAP ?G47.33 - Obstructive sleep apnea (adult) (pediatric) (ICD-10) Sleep apnea ?G47.30 - Sleep apnea, unspecified (ICD-10) Meds Home Medications and Allergies Home Medications ?Medication ?Instructions ?Recorded ?Confirmed ?Type celecoxib 200 mg capsule (Celebrex) 200 mg PO BID 11/05/23 12/29/24 History cranberry fruit 400 mg capsule 1,600 mg PO DAILY 11/05/23 12/29/24 History loratadine 10 mg tablet (Claritin) 10 mg PO DAILY 11/05/23 12/29/24 History ascorbic acid (vitamin C) 1,000 mg 1,000 mg PO DAILY 12/03/23 12/29/24 History tablet,extended release (C Complex) paroxetine HCl 10 mg tablet 10 mg PO DAILY 01/07/24 12/29/24 History tizanidine 4 mg tablet 4 mg PO DAILY 06/30/24 12/29/24 History gabapentin 300 mg capsule 300 mg PO DAILY #30 caps 09/17/24 12/29/24 Rx calcium 600 mg capsule mg PO 01/07/25 History cyanocobalamin (B12)-cobamamide judy sublingual 01/07/25 History 5,000 mcg-100 mcg sublingual lozenge (B12) turmeric 400 mg capsule mg PO 01/07/25 History celecoxib 200 mg capsule (Celebrex) 200 mg PO BID PRN pain #60 caps 04/15/25 Rx tizanidine 4 mg capsule 4 mg PO DAILY PRN muscle 04/15/25 Rx spasticity #30 caps baclofen 10 mg tablet See Rx Instructions .Route 07/08/25 Rx .COMPLEX PRN muscle spasm #90 tabs Allergies Allergy/AdvReac Type Severity Reaction Status Date / Time No Known Drug Allergies Allergy Verified 12/29/24 07:21 Exam Constitutional Documenting provider has reviewed patient's vital signs: yes Common normals: no apparent distress, oriented x3, healthy appearing, alert and well nourished General appearance: cooperative HENMT Common normals: normocephalic, hearing grossly normal bilaterally and moist oral mucous membranes Head and scalp: normocephalic Eye Common normals: PERRL Pupil: PERRL Neck & C-Spine Common normals: full ROM General: normal visual inspection Chest Common normals: inspection of chest normal Respiratory Common normals: normal respiratory effort, no retractions and no use of accessory muscles Back & Pelvis Thoracic spine/upper back: thoracic spinal tenderness and paraspinal muscle tenderness Lumbar spine/lower back: lumbar spinal tenderness, paraspinal muscle tenderness, straight leg raise positive right and straight leg raise positive left Other: radiculopathy noted bilateral L4,5,S1 strength 5/5 in BLE diffuse myofascial pain mild pain with facet loading no pain with forward flexion Neuro Common normals: oriented x3 Sensorium/orientation: alert Psych Common normals: mental status grossly normal, thought process normal, cooperative, affect normal, speech normal and activity/motor behavior normal Speech: normal speech Thought process: normal thought process Results Additional Findings Additional findings: If on a controlled substance or opioids, I have checked an [place] report on this patient and there are no aberrancies noted in the prescribing history.??If on a controlled substance or opioid a drug screen was completed and reviewed within the last year, and if there has not been a drug screen completed we ordered one today to monitor higher risk, state monitored pain medication use. As part of providing excellent, safe, comprehensive care, the following was completed at our patient's visit: 1. A medication reconciliation and review to ensure accurate knowledge of current/active medications, including asking our patients to inform us about any [id number] medications or herbal remedies/nutritional supplements/alternative remedies. 2. A review to specifically ensure our patients have had annual screening for screening for depression, screening for tobacco use, and screening for unhealthy alcohol use. For concerning screenings had a discussion with the patient, provided patient education, and recommended follow-up with primary care provider when appropriate. If patient noted with a risk of falling, they received education on strength, gait, and balance training to prevent future risk of falling. Portions of this note may have been carried over from the previous visit and updated as appropriate. Please note this office utilizes paper charting in addition to the electronic medical record. A list of current medications, vitals, and PMH is available there as the clinical staff outside of myself do not have access to [employer] charting during the clinic day operations. As part of providing quality comprehensive care the current medications, vitals, and PMH were reviewed in the paper chart. Assessment and Plan Assessment and Plan (1) Lumbar stenosis with neurogenic claudication: (2) Degenerative disc disease (DDD) of lumbar region with axial back pain without leg pain: (3) Myalgia: (4) Lumbago: Qualifiers: Chronicity: chronic Back pain laterality: bilateral Sciatica presence: unspecified whether sciatica present Qualified Code(s): M54.50 - Low back pain, unspecified; G89.29 - Other chronic pain Plan The patient has had over 3 months of moderate to severe low back and BLE pain with functional impairment and inadequate response to conservative care including NSAIDS (unless there are contraindication such as concurrent blood thinners), multiple oral or topical pain medications, and home exercise program/physical therapy.? Patient has completed >6 weeks of guided home exercise program and/or formal physical therapy program without relief of their symptoms.? The Oswestry Disability Index was completed, and the patient scored a 24%.? continue PT as tolerated. update lumbar MRI without contrast to assess low back pain, lumbar ddd, lumbar stenosis with NC >12 months unresponsive to >6 weeks of PT/HEP and conservative therapy in consideration of interventional therapy vs NS consultation dc baclofen, start flexeril 5-10mg tid prn pain/spasms f/u to review lumbar MRI
== END 2025-08-12 09:36 | disposition home or self-care (01) ==
LOC: PM 09:35
PROVIDERS: PCP Nurse Practitioner; Visit Provider Nurse Practitioner
DX: M48.062 Spinal stenosis, lumbar region with neurogenic claudication (principal); M51.360 Other intervertebral disc degeneration, lumbar region with discogenic back pain only; M79.10 Myalgia, unspecified site; G89.29 Other chronic pain
CPT/HCPCS: G0463

== ENCOUNTER 2025-08-21 12:31 | Outpatient (OUT) | payer OTHER, SELFPAY ==
--- NOTE | 2025-08-21 12:32 | MR_ITS ---
The [address] [address] Patient Name: RAKESH PIÑA MRN: [id number] date: 1975 Sex: M Assigned Patient Location: MRI Current Patient Location: MRI Accession/Order Number: [id number] Exam Date: 08/21/2025 12:40 Report Date: 08/21/2025 21:28 At the request of: FABY ELENA NP Procedure: MR lumbar spine wo con MR lumbar spine wo con 08/21/2025 1:13 PM SIGNS AND SYMPTOMS: Lumbar pain with radiculopathy. PROTOCOL: Multiplanar multisequence MR images of the lumbar spine without IV contrast COMPARISON: 05/05/2025 and 01/23/2024 FINDINGS: The bones of the lumbar spine are in anatomic alignment. Linear abnormal signal intensity is noted traversing the anterior wall of the T12 vertebral body extending obliquely and superiorly through the disc space. There is accompanying marrow edema. This may represent a fracture involving the anterior column. There is accompanying paraspinous edema. Benign-appearing hemangiomas are noted at L4 and S2. The conus terminates at the superior endplate of the L1 vertebral body level. No epidural or paraspinous fluid collection is appreciated. At T12-L1: There is a normal disc, central canal, and neural foramen. At L1-L2: There is a normal disc, central canal, and neural foramen. At L2-L3: There is a normal disc, central canal, and neural foramen. At L3-L4: There is a broad-based disc bulge with facet hypertrophy. There is mild spinal canal narrowing with moderate right and mild left neural foraminal narrowing. This is similar to the prior exam. At L4-L5: There is a circumferential disc bulge with facet hypertrophy and ligamentum flavum thickening. There is moderate spinal canal stenosis with moderate bilateral neural foraminal narrowing. This is similar to the prior exam. At L5-S1: There is a broad-based disc bulge with facet hypertrophy and endplate osteophyte formation. There is moderate left and mild right neural foraminal narrowing without spinal canal narrowing. This is similar to the prior exam. MR/MR lumbar spine wo con IMPRESSION: Linear abnormal signal intensity is noted traversing the anterior wall of the T12 vertebral body extending obliquely and superiorly through the disc space. There is accompanying marrow edema. This may represent a fracture involving the anterior column. There is accompanying paraspinous edema. This is new when compared to the prior CT At L3-L4: There is a broad-based disc bulge with facet hypertrophy. There is mild spinal canal narrowing with moderate right and mild left neural foraminal narrowing. This is similar to the prior exam. At L4-L5: There is a circumferential disc bulge with facet hypertrophy and ligamentum flavum thickening. There is moderate spinal canal stenosis with moderate bilateral neural foraminal narrowing. This is similar to the prior exam. At L5-S1: There is a broad-based disc bulge with facet hypertrophy and endplate osteophyte formation. There is moderate left and mild right neural foraminal narrowing without spinal canal narrowing. This is similar to the prior exam. Impression dictated by: Mathew Frey M.D. 08/21/2025 9:28 PM Dictation Location: [place] [address] Electronically authenticated by: [id number] Y Date: 08/21/2025 21:28
--- OUTSIDE RECORDS SUMMARY | 2025-08-21 12:34 | XMS_ITS | CCD ---
Author Organization [facility] Care Team Providers Care Machine Bender Name Role Phone MAZIN CANO Admitting Unavailable [...] Unavailable Lulu Blank MD Primary Care Provider [phone] PEDRO CONTE Attending Unavailable PEDRO CONTE Attending Unavailable PEDRO CONTE Attending Unavailable Torsten AMEENA-Effie CHAUHAN Primary Care Provider [phone] RAAD POTTER Referring Unavailable EFFIE SARMIENTO Primary [...] Jose Carlos Whitt DO Attending Provider Torsten SPECIAL EDUCATION SCIENCE TEACHER-CEffie Primary Care Provider NURY POTTER Attending Unavailable [...] of OnsetReaction(s) Facility (7 sources)OtherPropensity to adverse maxzaswui85-68-8412[facility] Work Phone: Medications Current Medications MedicationDrug Class(es)DatesSig (Normalized)Sig (Original)ASHWAGANDHA EXTRACT ORAL (3 sources)ASHWAGANDHA EXTRACT ORAL Take by mouth. Oodvvh79 hr buPROPion hydrochloride 150 mg extended release [...] mg oral capsule (12 sources)Nonsteroidal Anti-inflammatory DrugStart: 19-24-5955bcsc 1 capsule by mouth in the morningcelecoxib (CeleBREX) 200 mg capsule Take 1 capsule (200 mg total) by mouth in the morning. 12/27/2024 Activetake 1 capsule by mouth in the morningcelecoxib (CeleBREX) 50 MG capsule Take 50 mg by mouth in the morning and 50 mg before bedtime. ActiveCranberry preparation (14 sources)Non-Standardized Food Allergenic Extract, Non-Standardized Plant Allergenic ExtractStart: 28-49-3407ndne 1 tablet by mouth once dailycranberry oral capsule See Instructions, Refill(s) 0, 1 tablet daily Start Date: 03/19/23 Status: Orderedcranberry extract (CRANBERRY JUICE POWDER) 425 mg capsule Take by mouth. ActiveCRANBERRY PO Take by mouth Activecyanocobalamin, vitamin B-12, (VITAMIN B-12 ORAL) (6 sources)cyanocobalamin, vitamin B-12, (VITAMIN B-12 ORAL) Vitamin B-12 Active famotidine 20 mg oral tablet (7 sources)Histamine-2 Receptor AntagonistStart: 97-02-4661fokf 1 tablet by mouth at bedtimefamotidine (Pepcid) 20 MG tablet Take 20 mg by mouth at bedtime. 03/03/2022 ActiveFish Oils (8 sources)Start: 68-82-7160cwll 1 capsule by mouth once dailyFish Oil 500 mg oral capsule 500 mg = 1 cap(s), Oral, Daily, Refills(s) 0 Start Date: 03/19/23 Status: Orderedomega-3 (FISH OIL) 300 MG capsule Take by mouth Daily Active fluticasone propionate 0.05 mg/actuat metered dose nasal spray (7 sources)CorticosteroidStart: 70-85-3868kpoh 2 spray(s) nasal route once daily fluticasone [...] Activeloratadine 10 mg oral capsule (8 sources)Start: 02-95-4072dtga 1 capsule by mouth once daily as [...] release oral tablet (8 sources)BiguanideStart: 04-24-2025 End: 68-17-0313hqws 3 tablets by mouth once daily at breakfastmetFORMIN (FORTAMET) 500 MG (OSM) 24 hr tablet TAKE 3 TABLETS (1,500 MG TOTAL) BY MOUTH DAILY WITH BREAKFAST 270 tablet 2 06/17/2025 ActiveStart: 01-23-2025 End: 98-56-4455jvdo 1 tablet by mouth once daily at breakfastmetFORMIN (FORTAMET) 1000 MG (OSM) 24 hr tablet Take 1 tablet (1,000 mg total) by mouth daily with breakfast. 90 tablet 3 01/23/2025 04/24/2025 Discontinued (Reorder) methylPREDNISolone 4 mg oral tablet (1 source)CorticosteroidStart: 03-19-2023 End: 67-50-9341Yrlals 4 mg Tab = 1 packet(s), Oral, As Directed, as directed on package labeling, X 6 day(s), # 21tab(s), Refills(s) 0, Pharmacy: [facility]/pharmacy #[id number], 176.5, cm, 03/19/23 13:15:00 EDT, Height/LengthDosing [...] 3 mg/ml ophthalmic solution (7 sources)Quinolone AntimicrobialStart: 07-17-2459ayxg 4 drop(s) into the eye(s) every eight [...] mg oral tablet (15 sources)Serotonin Reuptake InhibitorStart: 02-73-2493efok 1 tablet by mouth once dailyparoxetine 10 mg Tab 10 mg = 1 tab(s), Oral, Daily, # 90 tab(s), Refills(s) 3, [id number] 176.5, cm, 07/26/23 9:32:00 EST, Height/Length Dosing, 187.2, kg, 07/26/23 9:32:00 EST, Weight Dosing Start Date: 07/26/23 Status: Orderedphentermine hydrochloride 37.5 mg oral tablet (9 sources)Sympathomimetic Amine AnorecticStart: 98-94-5217nzxt 1 tablet by mouth once dailyphentermine 37.5 mg Tab 37.5 mg = 1 tab(s), Oral, Daily, # 30 tab(s), Refills(s) 0, Pharmacy: [facility] #[id number], 176.5, cm, 07/26/23 9:32:00 EST, Height/Length Dosing, 187.2, kg, 07/26/23 9:32:00 EST, Weight Dosing Start Date: 07/26/23 Status: OrderedStart: 03-19-2023 End: 27-60-0921ulpb 1 tablet by mouth once dailyphentermine 37.5 mg Tab 37.5 mg = 1 tab(s), Oral, Daily, X 30 day(s), # 30 tab(s), Refills(s) 0, Pharmacy: [facility]/pharmacy #[id number], 176.5, cm, 03/19/23 13:15:00 EDT, Height/Length Dosing Start Date: 03/19/23 Stop Date: 04/18/23 Status: Fxpelxk53 actuat testosterone 20.25 mg/actuat topical gel (8 sources)AndrogenStart: 28-56-1753jvwrjcoqqzii (ANDROGEL) 20.25 mg/1.25 gram (1.62 %) gel in metered-dose pump Indications: Low 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 Place 3 Act (60.75 mg total) on the skin in the morning. 75 g 2 06/17/2025 ActiveStart: 04-24-2025 End: 43-68-7495qmikheylepnn (ANDROGEL) 20.25 mg/1.25 gram (1.62 %) gel in metered-dose pump Indications: Low 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 Place 3 Act (60.75 mg total) on the skin in the morning. 75 g 2 04/24/2025 06/05/2025 Discontinued (Reorder)Start: 01-23-2025 End: 03-89-1689viouwbomuafk (ANDROGEL) 20.25 mg/1.25 gram (1.62 %) gel in metered-dose pump Indications: Low 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 Place 2 Act (40.5 mg total) on the skin in the morning. 75 g 03/16/2025 04/24/2025 Discontinued (Reorder)tiZANidine 4 mg oral tablet (12 sources)Central alpha-2 Adrenergic AgonistStart: 27-13-8523sbcl 1 tablet by mouth once dailytiZANidine (ZANAFLEX) 4 mg tablet Take 1 tablet (4 mg total) by mouth nightly. 12/27/2024 ActivetiZANidine (Zanaflex) 2 MG capsule Take by mouth as needed at bedtime for muscle spasms ActiveTurmeric extract (3 sources)TURMERIC ORAL Take by mouth. Active Problems Active Problems Problem ClassificationProblemDateDocumented DateEpisodic/ChronicAbdominal hernia (3 sources)Incisional hernia; Translations: [Incisional hernia without obstruction or gangrene]Onset: 707323-95-4980XnuenyahSzihuyxu foot deformities (4 sources)Acquired varus deformity of right ankle; Translations: [Valgus deformity, not elsewhere classified,right ankle]22-56-7469RwjydrxwAtxyrnrv foot deformities (4 sources)Acquired valgus deformity of left ankle; Translations: [Valgus deformity, not elsewhere classified,left ankle]82-97-9866Qyygiknk Administrative/social admission (6 sources)Patient encounter status; Translations: [Dietary counseling and surveillance]Onset: 878266-88-0037HwtikszmOgvrtuqla of lipid metabolism (1 source)Mixed hyperlipidemia; Translations: [MIXED HYPERLIPIDEMIA]Onset: 66-18-0246WruklsaKvawpzaibl disorders (7 sources)Laryngopharyngeal reflux; Translations: [Gastro-esophageal reflux disease without esophagitis]Onset: 153842-60-0557EgcckliAugjixxlz (7 sources)Nonalcoholic steatohepatitis; Translations: [Nonalcoholic steatohepatitis (RODRIGUEZ)]Onset: 823530-06-2743XqtzqouJpvjdkmdwbn deficiencies (1 source)Vitamin D deficiency, unspecified; Translations: [VITAMIN D DEFICIENCY UNSPECIFIED]Onset: 98-61-4052LcoztehWdsjl acquired deformities (4 sources)Leg length inequality; Translations: [Unequal limb length (acquired), unspecified site]15-98-0526KmvbqhpsKeury connective tissue disease (2 sources)Bilateral dysfunction of posterior tibial tendon of feet; Translations: [Posterior tibial tendinitis, right leg]50-45-3148PojczaspMijpw diseases of veins and lymphatics (7 sources)Lymphedema; Translations: [Lymphedema, not elsewhere classified] Onset: 401880-40-7803RrjwtcuZgjlv ear and sense organ disorders (7 sources)Sensorineural hearing loss, bilateral; Translations: [Sensorineural hearing loss, bilateral]Onset: 374375-53-2358UdahrmeOkjrv endocrine disorders (1 source)Male vrgcbwywuurl54-22-6301YopucenQtcaj nervous system disorders (1 source)Difficulty in walking, not elsewhere classified; Translations: [Difficulty in walking, not elsewhere classified]Onset: 37-91-6048ZsecbreWxobw non-traumatic joint disorders (4 sources)Instability of joint of left foot; Translations: [Other instability, left foot]31-44-7097HiziyaxeAhjxc non-traumatic joint disorders (4 sources)Instability of joint of right foot; Translations: [Other instability, right foot]79-08-6406KrlyblpeYzeqa nutritional; endocrine; and metabolic disorders (3 sources)Morbid (severe) obesity due to excess calories; Translations: [MORBID SEVERE OBES D/T EXCESS GAYATRI]Onset: 77-08-6268WaqinfyOmhej nutritional; endocrine; and metabolic disorders (2 sources)Body mass index (BMI) 50.0-59.9, adult; Translations: [BODY MASS INDEX BMI 50.0-59.9 ADULT]Onset: 19-94-0859TdwrgvvDypli nutritional; endocrine; and metabolic disorders (6 sources)Morbid obesity; Translations: [Morbid (severe) obesity due to excess calories]63-51-4868QdrjugaGdxea nutritional; endocrine; and metabolic disorders (2 sources)Body mass index 40+ - severely obese; Translations: [Morbid (severe) obesity due to excess calories]43-36-4841KnihvjwZdmrd nutritional; endocrine; and metabolic disorders (2 sources)Insulin resistance; Translations: [Insulin resistance]01-23-2025 ChronicOther screening for suspected conditions (not mental disorders or infectious disease) (5 sources)Decreased testosterone level ; Translations: [Other specified abnormal findings of blood chemistry]Onset: 622231-40-5913PdfoiihlEqwgg upper respiratory disease (7 sources)Chronic rhinitis; Translations: [Chronic rhinitis]Onset: 04-05-2023 99-22-9028JdhbzkfTfaop upper respiratory infections (5 sources)Acute pharyngitis, unspecified; Translations: [Acute upper respiratory infection, unspecified]Onset: 57-82-9544BdpodyrkVpkeixjg codes; unclassified (1 source)Obstructive sleep apnea (adult) (pediatric); Translations: [OBSTRUCTIVE SLEEP APNEA]Onset: 67-95-3341XuxmpetHqrthtne codes; unclassified (7 sources)Obstructive sleep apnea syndrome; Translations: [Obstructive sleep apnea (adult) (pediatric)]Onset: 876577-15-0324EybilzdJpgxkndv codes; unclassified (3 sources)History of sleeve gastrectomy; Translations: [Acquired absence of stomach [part of]]73-80-9328HgmnfjpaHabjyrebl and history of mental health and substance abuse codes (1 source)Personal history of nicotine dependence; Translations: [PERSONAL HISTORY OF NICOTINE DEPEND]Onset: 35-15-2111UvizugisUjcgjhjwutd; intervertebral disc disorders; other back problems (3 sources)Sciatica; Translations: [Lumbago with sciatica, left side]Onset: 648848-43-8629FxhuerrdXqibutdfhhps (1 source)CONTACT W/AND (SUSP) EXPOS COVID-19; Translations: [CONTACT W/AND (SUSP) EXPOS COVID-19]Onset: 63-28-3842Louyceriqwvi (1 source)COUGH, UNSPECIFIED; Translations: [COUGH, UNSPECIFIED]Onset: 45-52-3555Mkulbkfsgwke (3 sources)Patient encounter ncmdee78-33-5456Uvxlotilmsqv (1 source)Nutrition CounselingOnset: 27-59-6514Btgzptlbnwwv (1 source)Insulin resistance, unspecified; Translations: [Insulin resistance, unspecified]Onset: 26-05-6650Vaaxjcxyjxuu (1 source)ESTABLISHED PATIENTOnset: 77-16-0279Gpnhjwnhcclw (1 source)New PatientOnset: 11-28-2024 Past or Other Problems Problem ClassificationProblemDateDocumented DateEpisodic/ChronicCardiac dysrhythmias (7 sources)Sinus tachycardia; Translations: [Tachycardia, unspecified]Onset: 461964-74-6267OuisejtqTroxoadquw associated with dizziness or vertigo (4 sources)Dizziness and giddiness; Translations: [DIZZINESS AND GIDDINESS] Onset: 93-16-2532AtormwqbIicwyhau of upper limb (1 source)Other fracture of fifth metacarpal bone, left hand, initial encounter for closed fracture; Translations: [OTH FX 5TH MC BN LH INIT CLOS FX]Onset: 14-77-2756OavtkweiUuafkmz and fatigue (1 source)Sqnymab40-81-1698DhojcyopAbiji ear and sense organ disorders (7 sources)Otorrhea of right ear; Translations: [Otorrhea, right ear]Onset: 041399-98-0300PdldodlnHwwrn nervous system disorders (1 source)Paresthesia of cjyi38-07-9457QmcgwqanPpbvu upper respiratory disease (1 source)Nasal congestion; Translations: [NASAL CONGESTION]Onset: 02-03-2022 EpisodicOther upper respiratory disease (7 sources)Hoarse; Translations: [Dysphonia]Onset: 884280-60-2227Pyvbpnjp Otitis media and related conditions (20 sources)Dysfunction of bilateral eustachian tubes; Translations: [Unspecified Eustachian tube disorder, bilateral]Onset: EpisodicResidual codes; unclassified (3 sources)Acquired absence of stomach [part of]; Translations: [Acquired absence of stomach (part of)]Onset: 33-13-7056PlrjmtirYoxtojxomsc injury; contusion (6 sources)Contusion of left little finger without damage to nail, initial encounter; Translations: [Contusionof left ring finger without damage to nail, initial encounter]Onset: 77-59-7249CqylpqepVqjyicpdrhqn (1 source)History of sleeve zuzofsbnune69-38-8668 Results Test NameValueInterpretationReference RangeFacilityAmbulatory Visit Summaryon 65-76-1955Spfmowjbar Visit SummaryAmbulatory Visit Summary RAKESH VAUGHN :1975 [...] Effie Muhammad [facility] Is [facility]ations [facility] (CPAP machine supplies) cranberry (cranberry oral [...] 1:00 PM EST With: Effie Muhammad Where: [address] [address]- You Need to Schedule the Following Appointments Follow Up with Effie Muhammad, JOSAFAT, MED When: In 4 weeks 06/30/2025 EDT Where: [address] [place] [address]- Business (1) Medications What How Much When [...] signed up for this yet, please contact [employer] at [phone] to get signed up today. Language Information Language assistance services are available as needed. [facility] Medicine Office/Clinic Noteon 89-85-1136Jpcjsg Medicine Office/Clinic NoteFalemuel [facility] Medicine Office/Clinic Note HPI Staff Pt [...] Daily, # 90 tab(s), Refills(s) 4, Pharmacy: [facility]/pharmacy #[id number],187.5, cm, 01/16/24 13:46:00 EDT, Height/Length Dosing, 183, kg, 01/16/24 13:46:00 EDT, Weight Dosing Follow-up With When Contact Information Effie Muhammad, JOSAFAT, MED In 4 weeks 06/30/[address] [place] [address] Business (1) Additional Instructions: Problem List/Past Medical [...] vax 10/22/2020 Recorded pneumococcal 23-valent vaccine 03/10/2019 RecordedNoRegency Hospital ToledoComment on above:Result Comment: Electronically Signed By: Torsten MONSIVAIS, Effie Sewell\.br\Date and Time Signed: 06/30/25 10:54 EDTProvider Letteron 06-30-2025 Provider LetterProvider Letter June 30, 2025 [place] [phone] : 1975 To Whom It May Concern, Please excuse above patient from work, due to medical Date of Illness: From: _06-30-25 To: _07-01-25 May Return to Work On:07-02-25 Restrictions: _ Comments: _ Sincerely, [place] [address] YsofqoHzndrwRegency Hospital ToledoProvider LetterProvider Letter June 30, [address] [address] : 1975 To Whom It May Concern, Please excuse above patient from work, due to medical Date of Illness: From: _06-30-25 To: _07-01-25 May Return to Work On:07-02-25 Restrictions: _ Comments: _ Sincerely,NormalSix Mile Jericho Medical CenterReminderson 69-67-8515Spsgrjowa Reminders From: Effie Muhammad To: B - [...] - 42) notified, he said he will potato picker the form on SundayNoRegency Hospital ToledoAmbulatory Visit Summaryon 96-27-8353Wmymzflvha Visit SummaryAmbulatory Visit Summary RAKESH VAUGHN :1975 [...] yet, please contact Health Information Management at [phone] to get signed up today. Language Information Language assistance services are available as needed. [facility] Medicine Office/Clinic Noteon 49-78-6276Hqpjrv Medicine Office/Clinic NoteWalter E. [facility] Office/Clinic Note HPI Staff Pt is here for wellness Health Maintenance: Last Labs: March 19 2023 he had labs done [facility] April or May History of Present [...] for wellness visit. had labs done at [facility] in April or May. BMP was found but we did not find a lipid. so we will draw that today. pt is doing well. down 25 pounds since last visit. RTC 1 year Ordered: Est Preventative 40 to 64 years [address] Lab Specimen Collect 51399 Lipid Panel 2. Mild recurrent major depression (F33.0: Major depressive disorder, recurrent, mild) needs refill on paroxetine Ordered: Est Preventative 40 to 64 years [address] 3. Screening for hyperlipidemia (Z13.220: Encounter for screening for lipoid disorders) lipid panel drawn in office today. will fill out Ordered: Est Preventative 40 to 64 years [address] Lab Specimen Collect 24940 4. Body mass index [BMI] 45.0-49.9, adult (Z68.42: Body mass index [BMI] 45.0- 49.9, adult) BMI education. pt is doing well. continues making healthy food choices. is being followed by Nury Potter, bariatric surgeon. has lost about 60 pounds all together. 25 in the last 17 months. Ordered: Est Preventative 40 to 64 years [address] 5. Class 3 severe obesity due to excess calories with body mass index (BMI) of 45.0 to 49.9 in adult (E66.813: Obesity, class 3) see above Ordered: Est Preventative 40 to 64 years [address] Orders: gabapentin, 300 mg = 1 cap(s), Oral, TID, # 90 cap(s), Refills(s) 0, [id number], 187.5, cm, 01/16/24 13:46:00 EDT, Height/Length Dosing, 183, kg, 01/16/24 13:46:00 EDT, Weight Dosing gabapentin, 300 mg = 1 cap(s), Oral, TID, # 90 cap(s), Refills(s) 2, [id number], 187.5, cm, 01/16/24 13:46:00 EDT, Height/Length Dosing, 183, kg, 01/16/24 13:46:00 EDT, Weight Dosing paroxetine, See Instructions, TAKE 1 TABLET BY MOUTH EVERY DAY, # 90 tab(s), Refills(s) 3, Pharmacy: [id number], 187.5, cm, 06/18/25 11:22:00 EDT, Height/Length Dosing, 171.4, kg, 06/18/25 11:22:00 EDT, Weight Dosing paroxetine, 10 mg = 1 tab(s), Oral, Daily, # 90 tab(s), Refills(s) 3, [id number],187.5, cm, 06/18/25 11:22:00 EDT, Height/Length Dosing, [...] vax 10/22/2020 Recorded pneumococcal 23-valent vaccine 03/10/2019 RecordedNormAvita Health System Bucyrus HospitalComment on above:Result Comment: Electronically Signed By: Effie Muhammad.spenser\Date and Time Signed: 06/18/25 12:28 EDTLipid Panelon 06-18-2025 Cholesterol [Mass/Vol]119 mg/xGLoh934-935OcsljsKettering Health SpringfieldComment on above:Performed By: #### [id number] #### [facility] [address] [place], [place] [address]Blfvicdgzva in HDL [Mass/Vol]32 mg/dLInvalid Interpretation CodeKettering Health SpringfieldComment on above:Result Comment: '>= 60 LOW RISK' '<= 40 HIGH RISK'Performed By: #### [id number] #### [facility] [address] [place], [place] [address]Tgtvccaebdk in LDL [Mass/Vol]85 mg/dLNormal<=129K[facility]tering Health SpringfieldComment on above:Performed By: #### [id number] #### [facility] [address] [place], [place] [address]Iumtnosekla in VLDL [Mass/Vol]12 mg/dLNormal7-40K[facility] Health SpringfieldComment on above:Performed By: #### [id number] #### [facility] [address] [place], [place] [address]Obhevvzdqnoz [Mass/Vol]61 mg/dLNormal<=149K[facility]tering Health SpringfieldComment on above:Performed By: #### [id number] #### [facility] [address] [place], [place] [address]ALR AND AUTO DIFFon 07-22-4686RQBWTSGX BASOPHIL0.2 X10E9/L Normal0.0-0.2ProMedica St Luke Medical CenterComment on above:Performed By: #### 66580-4, 14701-3 #### [facility] ([id number]) [address] [place] [address] #### LIVR, 60985-1, 2731-8, 2498-4, HA1C, 213-9, 3016-3, CBCA #### [facility] ([id number]) [address], [address] [place], [place] [address]WZUGMYDU NEUTROPHIL5.2 X10E9/LNormal1.5-6.6ProMedica St Luke Medical CenterComment on above:Performed By: #### 60621-8, 13441-4 #### [facility] ([id number]) [address] [place] [address] #### LIVR, 86529-6, 2731-8, 2498-4, HA1C, 2132-9, 3016-3, CBCA #### [facility] ([id number]) [address], [address] [place], [place] [address]Oovvqiozi/100 WBC (Bld)2.6 %NormalProMedica Mertztown Hospital Comment on above:Performed By: #### 44387-1, 70489-8 #### [facility] ([id number]) [address] [place] [address] #### LIVR, 15871-7, 2731-8, 2498-4, HA1C, 2132-9, 3016-3, CBCA #### [facility] ([id number]) [address] [place] [address], [address] [place], [place] [address]Ibhlbiahdzv (Bld) [#/Vol]0.1 10*3/uLNormal0.0-0.4K[facility] Memorial HospitalComment on above:Performed By: #### 58033-0, 78213-7 #### [facility] ([id number]) [address] [place] [address] #### LIVR, 73719-6, 2731-8, 2498-4, HA1C, 2132-9, 3016-3, CBCA #### [facility] ([id number]) [address] [place] [address], [address] [place], [place] [address]Ejwwiiiykcg/100 WBC (Bld)1.5 %[facility] Comment on above:Performed By: #### 50278-6, 50507-2 #### [facility] ([id number]) [address] [place] [address] #### LIVR, 85747-4, 2731-8, 2498-4, HA1C, 2132-9, 3016-3, CBCA #### [facility] ([id number]) [address] [place] [address], [address] [place], [place] [address]Rcaqjmolphj distribution width (RBC) [Ratio]16.0 %High11.5-15.0 ProMAdventist Health Bakersfield - BakersfieldComment on above:Performed By: #### 23420-0, 89851-4 #### [facility] ([id number]) [address] [place] [address] #### LIVR, 06049-0, 2731-8, 2498-4, HA1C, 2-9, 3016-3, CBCA #### [facility] ([id number]) [address], [address] [place], [place] [address]Fygiyqoprw (Bld) [Volume fraction]44.1 %Tzblls76-82AhsFtzbhxPalo Pinto General HospitalComment on above:Performed By: #### 78367-0, 80785-0 #### [facility] ([id number]) [address] [place] [address] #### LIVR, 24524-9, 2731-8, 2498-4, HA1C, 2-9, 3016-3, CBCA #### [facility] ([id number]) [address], [address] [place], [place] [address]Sjlkiaodgi (Bld) [Mass/Vol]14.6 g/iFPzspxb92.0-17.0K[facility]tering Memorial HospitalComment on above:Performed By: #### 81802-3, 20905-8 #### [facility] ([id number]) [address] [place] [address] #### LIVR, 13904-5, 2731-8, 2498-4, HA1C, 2-9, 3016-3, CBCA #### [facility] ([id number]) [address], [address] [place], [place] [address]Vlxabcbbohd (Bld) [#/Vol]1.3 10*3/uLNormal1.0-3.5PThe Christ HospitalComment on above:Performed By: #### 11578-0, 38624-9 #### [facility] ([id number]) [address] [place] [address] #### LIVR, 73708-2, 2731-8, 2498-4, HA1C, 2-9, 3016-3, CBCA #### [facility] ([id number]) [address], [address] [place], [place] [address]Rxsrhrkitoy/100 WBC (Bld)18.4 %NormalKettering Memorial Hospital Comment on above:Performed By: #### 96754-3, 24929-0 #### [facility] ([id number]) [address] [place] [address] #### LIVR, 47606-2, 2731-8, 2498-4, HA1C, 2131-9, 3016-3, CBCA #### [facility] ([id number]) [address], [address] [place], [place] [address]JQQ (RBC) [Entitic mass]28.3 qqIokmco26-64WmsBopyhlPalo Pinto General HospitalComment on above:Performed By: #### 79635-9, 38785-7 #### [facility] ([id number]) [address] [place] [address] #### LIVR, 15913-2, 2731-8, 2498-4, HA1C, 2-9, 3016-3, CBCA #### [facility] ([id number]) [address], [address] [place], [place] [address]BIDB (RBC) [Mass/Vol]33.1 g/sQUyxpyc03-73BssDigeugKettering Memorial HospitalComment on above:Performed By: #### 20232-6, 55683-0 #### [facility] ([id number]) [address] [place] [address] #### LIVR, 32679-1, 2731-8, 2498-4, HA1C, 2132-9, 3016-3, CBCA #### [facility] ([id number]) [address], [address] [place], [place] [address]KHB (RBC) [Entitic vol]85 sVZaawpn93-875UwcAicqiz Fremont HospitalComment on above:Performed By: #### 62829-6, 87451-1 #### [facility] ([id number]) [address] [place] [address] #### LIVR, 91384-0, 2731-8, 2498-4, HA1C, 2131-9, 3016-3, CBCA #### [facility] ([id number]) [address], [address] [place], [place] [address]Cwgqeyxgq (Bld) [#/Vol]0.3 10*3/uLNormal0-0.9ProPalo Pinto General HospitalComment on above:Performed By: #### 43173-6, 40817-9 #### [facility] ([id number]) [address] [place] [address] #### LIVR, 19206-5, 2731-8, 2498-4, HA1C, 2131-9, 3016-3, CBCA #### [facility] ([id number]) [address], [address] [place], [place] [address]Uhkjtpvfb/100 WBC (Bld)4.3 %NormalProPalo Pinto General Hospital Comment on above:Performed By: #### 32284-4, 26320-5 #### [facility] ([id number]) [address] [place] [address] #### LIVR, 46566-7, 2731-8, 2498-4, HA1C, 2-9, 3016-3, CBCA #### [facility] ([id number]) [address], [address] [place], [place] [address]Wrvywaldqhs/100 WBC (Bld)73.2 %NormalKettering Memorial Hospital Comment on above:Performed By: #### 74925-5, 75681-6 #### [facility] ([id number]) [address] [place] [address] #### LIVR, 97691-7, 2731-8, 2498-4, HA1C, 2132-9, 3016-3, CBCA #### [facility] ([id number]) [address] [facility], [address] [place], [place] [address]Jzubrpsl mean volume (Bld) [Entitic vol]7.6 fLNormal7-12 [facility] HospitalComment on above:Performed By: #### 48054-4, 24766-7 #### [facility] ([id number]) [address] [place] [address] #### LIVR, 12638-6, 2731-8, 2498-4, HA1C, 2132-9, 3016-3, CBCA #### [facility] ([id number]) [address] [facility], [address] [place], [place] [address]Cbeyqvyeh (Bld) [#/Vol]234 10*3/rFGvlkhb679-434XkuEgrwrfKettering Memorial HospitalComment on above:Performed By: #### 31266-7, 97458-4 #### [facility] ([id number]) [address] [place] [address] 6[address]83 #### LIVR, 73276-5, 2731-8, 2498-4, HA1C, 2132-9, 3016-3, CBCA #### [facility] ([id number]) [address], [address] [place], [place] [address]AEB COUNT5.16 X10E12/LNormal4.10-5.70[facility] Comment on above:Performed By: #### 75133-9, 44859-3 #### [facility] ([id number]) [address] [place] [address] #### LIVR, 95962-9, 2731-8, 2498-4, HA1C, 2132-9, 3016-3, CBCA #### [facility] ([id number]) [address], [address] [place], [place] [address]VBK (Bld) [#/Vol]7.1 10*3/uLNormal4.0-11.0ProPalo Pinto General HospitalComment on above:Performed By: #### 28843-6, 91566-0 #### [facility] ([id number]) [address] [place] [address] #### LIVR, 87748-1, 2731-8, 2498-4, HA1C, 2-9, 3016-3, CBCA #### [facility] ([id number]) [address], [address] [place], [place] [address]WGV A1C (GLYCO-HGB)on 86-38-3158Umbdibc [Mass/Vol]103 mg/dL NormalProPalo Pinto General HospitalComment on above:Performed By: #### 29792-0, 76554-4 #### [facility] ([id number]) [address] [place] [address] #### LIVR, 75731-3, 2731-8, 2498-4, HA1C, 2132-9, 3016-3, CBCA #### [facility] ([id number]) [address], [address] [place], [place] [address]NzL8u (Bld) [Mass fraction]5.2 %Normal4.4-5.6ProPalo Pinto General HospitalComment on above:Result Comment: NOTE ADA Guidelines Result HgbA1c Normal : less than 5.7 % Prediabetes : 5.7 % to 6.4 % Diabetes : > 6.4 % Use with caution in patients with abnormal hemoglobin variants as the half-life of red blood cells and in vivo glycation rates are affected.Performed By: #### 11061-9, 05117-5 #### [facility] ([id number]) [address] [place] [address] #### LIVR, 24917-9, 2731-8, 2498-4, HA1C, 2132-9, 3016-3, CBCA #### [facility] ([id number]) [address] [facility], [address] [place], [place] [address]ZIGPng 84-57-1882Xtoc [Mass/Vol]51 ug/aJFzhner80-846EslHuumqp [facility]ont HospitalComment on above:Performed By: #### 72984-5, 76167-1 #### [facility] ([id number]) [address] [place] [address] #### LIVR, 41794-3, 2731-8, 2498-4, HA1C, 2-9, 3016-3, CBCA #### [facility] ([id number]) [address], [address] [place], [place] [address]Bkkqygj.free and Insulin.total panel Qnon 39-37-7139Eppnlup, Free, S146 mcIU/mLHigh3 - 25ProPalo Pinto General HospitalComment on above:Performed By: #### 03572-0, 24396-2 #### [facility] ([id number]) [address] [place] [address]10 #### LIVR, 65262-0, 2731-8, 2498-4, HA1C, 2132-9, 3016-3, CBCA #### [facility] ([id number]) [address], [address] [place], [place] [address]Qeitqcw, Total, S168 mcIU/mLHigh3 - 25[facility] Comment on above:Result Comment: NOTE ADDITIONAL INFORMATION This test has been modified from the counter supervisor's instructions. Its performance characteristics were determined by [facility] in a manner consistent with CLIA [...] the total insulin concentration. Test Performed by: [place] [address] Radiological Defense Officer: Leslye Pink Ph.D.; CLIA# [id number] By: #### 49806- 9, 37895-4 #### [facility] ([id number]) [address] [place] [address] #### LIVR, 16271-3, 2731-8, 2498-4, HA1C, 2131-9, 3016-3, CBCA #### [facility] ([id number]) [address] [place] [address], [address] [place], [place] [address]KSMZP PANELon 90-00-0684Iuldtgs [Mass/Vol]3.7 g/dLNormal3.2-5.[address] [facility] [facility] [address] [facility] Medical CenterComment on above:Performed By: #### 55568-4, 85630-1 #### [facility] ([id number]) [address] [place] [address] #### LIVR, 68242-2, 2731-8, 2498-4, HA1C, 2132-9, 3016-3, CBCA #### [facility] ([id number]) [address], [address] [place] [address]PIP [Catalytic activity/Vol]59 U/BHjuqba31-423AlaCxodelPalo Pinto General HospitalComment on above:Performed By: #### 40161-1, 66090-6 #### [facility] ([id number]) [address] [place] [address] #### LIVR, 59601-6, 2731-8, 2498-4, HA1C, 2131-9, 3016-3, CBCA #### [facility] ([id number]) [address] [facility], [address] [place] [address]PBB [Catalytic activity/Vol]19 U/LNormal0-40ProPalo Pinto General HospitalComment on above:Performed By: #### 18314-4, 40880-2 #### [facility] ([id number]) [address] [place] [address] #### LIVR, 31309-3, 2731-8, 2498-4, HA1C, 2131-9, 3016-3, CBCA #### [facility] ([id number]) [address], [address] [place], [place] [address]QYA [Catalytic activity/Vol]18 U/LNormal0-41ProPalo Pinto General HospitalComment on above:Performed By: #### 74328-0, 83434-9 #### [facility] ([id number]) [address] [place] [address] #### LIVR, 79151-7, 2731-8, 2498-4, HA1C, 2-9, 3016-3, CBCA #### [facility] ([id number]) [address] [facility], [address] [place], [place] [address]Eevzlpdxf [Mass/Vol]0.5 mg/dLNormal0.3-1.2ProMedica St Luke Medical CenterComment on above:Performed By: #### 86295-8, 69674-7 #### [facility] ([id number]) [address] [place] [address] #### LIVR, 28788-1, 2731-8, 2498-4, HA1C, 2132-9, 3016-3, CBCA #### [facility] ([id number]) [address] [facility], [address] [place], [place] [address]Uvszdnsxc.direct [Mass/Vol]0.1 mg/dLNormal0.0-0.4K[facility] HospitalComment on above:Performed By: #### 37440-3, 34829-5 #### [facility] ([id number]) [address] [place] [address] 85269 #### LIVR, 77169-7, 2731-8, 2498-4, HA1C, 2-9, 3016-3, CBCA #### [facility] ([id number]) [address] [facility], [address] [place], [place] [address]Yjcoolj [Mass/Vol]7.3 g/dLNormal6.0-8.0ProPalo Pinto General HospitalComment on above:Performed By: #### 69504-1, 06162-6 #### [facility] ([id number]) [address] [place] [address] 998[address] #### LIVR, 36903-7, 2731-8, 2498-4, HA1C, 2132-9, 3016-3, CBCA #### [facility] ([id number]) [address] [facility], [address] [place], [place] [address]Zeyjkgufgk.intact [Mass/Vol]on 31-25-7300NYW SKJJZH17 pg/mL Vassnw17-63VmtPwsscx Mertztown HospitalComment on above:Performed By: #### 54466- 9, 57558-4 #### [facility] ([id number]) [address] [place] [address]558 #### HEATHERR, 83962-2, 2731-8, 2498-4, HA1C, 2132-9, 3016-3, CBCA #### [facility] ([id number]) [address] [place] [address], [address] [place], [place] [address]TCY Qnon 75-52-1312RXD1.64 uIU/mLNormal0.49-4.67ProPalo Pinto General HospitalComment on above:Performed By: #### 30332-4, 44354-4 #### [facility] ([id number]) [address] [place] [address] 41867 #### LIVR, 41849-3, 2731-8, 2498-4, HA1C, 2131-9, 3016-3, CBCA #### [facility] ([id number]) [address] [place] [address], [address] [place], [place] [address]Gernqlsjgbqe free and total panel [Mass/Vol]on 12-01-2024 Testosterone [Mass/Vol]286 ng/uXLbntuy853-465IwkZlxqog [facility]ont HospitalComment on above:Result Comment: NOTE ADDITIONAL INFORMATION Testing performed by Liquid Chromatography-Tandem Mass Spectrometry (LC-MS/MS). This test was developed and its performance characteristics determined by [facility] in a manner consistent with CLIA requirements. This test has not been cleared or approved by the U.S. Food and Drug Administration. Test Performed by: [facility] [address] [place] [address] Radiological Defense Officer: Leslye Pink Ph.D.; CLIA# [id number] By: #### 42822- 9, 55310-9 #### [facility] ([id number]) [address] [place] [address]05 #### LIVR, 84851-1, 2731-8, 2498-4, HA1C, 2-9, 3016-3, CBCA #### [facility] ([id number]) [address] [facility], [address] [place], [place] [address]WNTUEVGPJAGV FREE8.16 ng/dLNormal4.26-16.4ProMedica St Luke Medical CenterComment on above:Result Comment: NOTE ADDITIONAL INFORMATION This test was developed and its performance characteristics determined by [facility] in a manner consistent with CLIA requirements. This test has not been cleared or approved by the U.S. Food and Drug Administration.Performed By: #### 88407-6, 39869-7 #### [facility] ([id number]) [address] [place] [address] #### LIVR, 25357-9, 2731-8, 2498-4, HA1C, 2131-9, 3016-3, CBCA #### [facility] ([id number]) [address] [facility], [address] [place], [place] [address]SWAOOBC B12on 74-36-9273Bupfzmrdl (Vitamin B12) [Mass/Vol]399 pg/kMPtwbjq864-864TdjCbebah St Luke Medical CenterComment on above:Performed By: #### 51054-3, 74084-0 #### [facility] ([id number]) [address] [place] [address] #### LIVR, 88081-3, 2731-8, 2498-4, HA1C, 2132-9, 3016-3, CBCA #### [facility] ([id number]) [address] [facility], [address] [place], [place] [address]Gasnsdd D+Metabolites [Mass/Vol]on 62-09-2589PAGBNEZ D 25 HYD TOT36.1 ng/xAElydee10-782QmvPszsqk St Luke Medical CenterComment on above:Result Comment: Vitamin D status 25 [place] Vitamin D Deficiency <20 ng/mL Insufficiency 20-29 ng/mL Sufficiency 30-100 ng/mL Toxicity >100 ng/mL NOTE: A pediatric reference range has not been established by the counter supervisor of this kit. The [place] [employer] recommends a Vitamin D level of = or >20ng/mL in infants and children.Performed By: #### 13503-5, 36783-6 #### [facility] ([id number]) [address] [place] [address], [place] [address] #### LIVR, 81862-0, 2731-8, 2498-4, HA1C, 2132-9, 3016-3, CBCA #### [facility] ([id number]) [address] [facility], [address] [place], [place] [address]MSM LUMBAR SPINE WO CONTRASTon 89-92-0570LLO LUMBAR SPINE WO CONTRASTEXAMINATION: MRI OF THE [...] compromise. L2-L3: No disc bulge or protrusion. Ycuh-ye-xqqpnbbj facet arthropathy. No significant central canal stenosis. [...] Signed by: Carson Linares DO 01/24/24 Final resultSCL Health Community Hospital - NorthglennMRI THORACIC SPINE WO CONTRASTon 40-85-0787MAD THORACIC SPINE WO CONTRASTEXAMINATION: MRI OF THE [...] Signed by: Carson Linares DO 01/24/24 Final resultNoNorth Colorado Medical CenterCHEMISTRYOrdered By: SYSTEM SYSTEM on 26-58-9656Lpyjfpftd (Vitamin B12) [Mass/Vol]301 pg/eBOptdin10 - 1500 pg/mLRemisol ChemVitamin D 25 Gwczavy84.7 ng/tMSngail75.0 - 100.0 ng/mLRemisol ChemCHEMISTRYOrdered By: [employer] SYSTEM on 00-95-7817Cyewcojpoed [Mass/Vol]171 mg/rYJnfbgb031 - 200 mg/dLHILLCREST H[facility] [place] RemisolCholesterol in HDL [Mass/Vol]39 mg/dL Invalid Interpretation CodeFTMC RemisolCholesterol in LDL [Mass/Vol]112 mg/dL Normal<=129mg/dLFTMC RemisolCholesterol in VLDL [Mass/Vol]19 mg/dLNormal7 - 40 mg/dLFTMC RemisolProstate specific Ag [Mass/Vol]0.9 ng/mLNormal0.1 - 3.5 ng/mL [facility] RemisolTriglyceride [Mass/Vol]94 mg/dLNormal<=149mg/dLFTMC RemisolTSH Qn 2.03 m[IU]/LNormal0.34 - 5.60 mcIU/mLFTMC RemisolHEMATOLOGYOrdered By: [employer] SYSTEM on 46-65-7004Klroadjqi/100 WBC (Bld)0.3 %Normal0.0 - 2.0 %[facility] HemeAutoSS Basophils/Leukocytes Auto (Bld) [Pure # fraction]0.0 E9/LNormal0.0 - 0.2 E9/L [facility] HemeAutoSSEosinophils/100 WBC (Bld)2.1 %Normal0.0 - 8.0 %[facility] HemeAutoSS Eosinophils/Leukocytes Auto (Bld) [Pure # fraction]0.2 E9/LNormal0.0 - 0.5 E9/L [facility] HemeAutoSSLymphocytes/100 WBC (Bld)20.5 %Arydtt58.0 - 50.0 %[facility] HemeAutoSS Lymphocytes/Leukocytes Auto (Bld) [Pure # fraction]1.6 E9/LNormal1.0 - 4.0 E9/L [facility] HemeAutoSSMonocytes/100 WBC (Bld)8.7 %Normal4.0 - 14.0 %[facility] HemeAutoSS Monocytes/Leukocytes Auto (Bld) [Pure # fraction]0.7 E9/LNormal0.2 - 1.0 E9/L [facility] HemeAutoSSNeutrophils/100 WBC (Bld)68.4 %Fcwvto66.0 - 75.0 %[facility] HemeAutoSS Neutrophils/Leukocytes Auto (Bld) [Pure # fraction]5.3 E9/LNormal2.0 - 7.5 E9/L [facility] HemeAutoSSHEMATOLOGYOrdered By: Vaughn Chin on 99-11-4727Gejtnocrouh distribution width (RBC) [Ratio]16.3 %High10.9 - 14.2 %[facility] HemeAutoSSHematocrit (Bld) [Volume fraction]43.7 %Hlncgn52.7 - 49.0 %[facility] HemeAutoSSHemoglobin (Bld) [Mass/Vol]14.4 g/hSZxlbpt10.5 - 17.5 gm/dLFTMC HemeAutoSSMCH (RBC) [Entitic mass]27.9 dnMczouj27.0 - 34.0 pgFTMC HemeAutoSSMCHC (RBC) [Mass/Vol]33.0 g/dL Lmvgks44.4 - 36.0 gm/dLFTMC HemeAutoSSMCV (RBC) [Entitic vol]84.8 eTMaluxd19.0 - 100.0 fLFTMC HemeAutoSSPlatelet mean volume (Bld) [Entitic vol]7.7 fLNormal6.4 - 10.8 fLFTMC HemeAutoSSPlatelets (Bld) [#/Vol]278.0 E9/TIpkpfp832.0 - 500.0 E9/L [facility] HemeAutoSSRBC (Bld) [#/Vol]5.2 E12/LNormal4.3 - 5.9 E12/LFTMC HemeAutoSSWBC corrected for nucl RBC Auto (Bld) [#/Vol]7.7 E9/LNormal4.0 - 11.0 E9/LFTMC HemeAutoSSCovid-19 PCR (CVDNEW [facility]GL[facility])on 27-90-4373AAVU-CoV-2 (COVID-19) RNA BETHANY+probe Ql (Unsp spec)Not detectedNormalNOT DETECTEDThe University Hospitals St. John Medical Centerment on above:Result Comment: When diagnostic testing [...] for this test is supported by the [place] of [employer] and Human Service's declaration that [...] longer be used).Performed By: #### CVDTBH #### [facility] [address] [place] [address] Dr. Mynor Amaya STREP CULTUREon 07-28-2022. pyogenes Ag Ql (Unsp spec) Culture Observations: NEGATIVE FOR GROUP A STREPTOCOCCUS.NormalThe University Hospitals St. John Medical Centerment on above: Performed By: #### GRASTCX #### [facility] [address] [place] [address] Dr. Mynor Rodriguez A AND B AGon 83-59-7885GWPWZTIOSUPCY Holzer HospitalComment on above:Result Comment: Negative for Flu A protein angiten. Infection due to Flu A cannot be ruled out. FluA angiten in the sample may be below the detection limit of the test.Performed By: #### INFLUAB #### [facility] [address] [place] [address] Dr. Mynor YunINFLUBNEGHSGrant Hospital on above: Result Comment: Negative for Flu B protein antigen. Infection due to Flu B cannot be ruled out. FluB antigen in the sample may be below the detection limit of the test.Performed By: #### INFLUAB #### [facility] [address] [place] [address] Dr. Mynor Amaya AGNegativeNormalNEGATIVE SEE COMMENTThe [facility] Medical CenterComment on above:Performed By: #### INFLUAB #### [facility] [address] [place] [address] Dr. Mynor Piña AGNegativeNormalNEGATIVE SEE COMMENTThe [facility] on above:Performed By: #### INFLUAB #### [facility] [address] [place] [address] Dr. Mynor YunINTERNAL CONTROLSWithin Normal LimitsNormalWithin Normal Limits The [facility] CenterComment on above:Performed By: #### INFLUAB #### [facility] [address] [place] [address] Dr. Mynor Solis SCREENon 72-99-1651NWQFV SCREEN ANegativeNormalNEGATIVEThe [facility] CenterComment on above:Performed By: #### SSCRN #### [facility] [address] [place] [address] Dr. Mynor YunXR SINUSES 3 VIEWS OR GREATERon 73-07-8422FK SINUSES 3 VIEWS OR GREATEREXAMINATION: XR SINUSES 3 VIEWS OR GREATER HISTORY: Vertigo COMPARISON: No relevant comparison available. FINDINGS: MAXILLARY: No mucosal thickening or fluid level. ETHMOID: No mucosal thickening or fluid level. FRONTAL: No mucosal thickening or fluid level. SPHENOID: No mucosal thickening or fluid level. OTHER: Negative. IMPRESSION: Clear paranasal sinuses Electronically authenticated by: KELLIE SMALLS Date: 2022-02-01 09:[address] [place], [place] [address]HAND LEFT 3 VWSon 83-69-1086LZRP LEFT 3 SUniK[facility]tering Health [facility] of Radiology [address] [place] [phone] Patient Name: RAKESH VAUGHN : 1975 [...] alignment. Electronically signed: Edgardo Montana. Transcribed by: [email or web address], User Resident: Electronically Signed by: EDGARDO MONTANA @ 12/31/2021 08:55 [facility] Jewish HospitalComment on above:Order Comment: EvaluateHAND LEFT 3 VWSon 21-13-5195UCBO LEFT 3 SUniKettering Health [facility] of Radiology [address] [place] [phone] Patient Name: RAKESH VAUGHN : 1975 Sex: M Age: Race: White Pt. Location: 84 Patient Status: D Ordered Date: 12/08/2021 1:25:00 PM Completed Date: 12/08/2021 01:29 PM Requesting Provider: LORI DALLAS Attending Provider: LORI DALLAS Report Copy To: Signs & Symptoms: M79.642 Pain in left hand I10 History: [place] Comments: Evaluate Exam: HAND LEFT 3 VWS [...] bridging. Electronically signed: Ronaldo Major. Transcribed by: [email or web address], User Resident: Electronically Signed by: RONALDO MAJOR @ 12/09/2021 04:04 [facility] HospitalComment on above:Order Comment: EvaluateHAND LEFT 3 VWSon 11-88-6923OWOK LEFT 3 SUniKettering Health [facility] of Radiology [address] [place] [phone] Patient Name: RAKESH VAUGHN : 1975 [...] fracture. Electronically signed: Timo Smith. Transcribed by: [email or web address], User Resident: Electronically Signed by: TIMO SMITH @ 11/14/2021 08:02 PMNormalThe [facility] Clinic FoundationComment on above:Order Comment: Views (X-RAY, HAND): PA, Lateral, ObliqueTESTOSTERONE, TOTALon 76-99-3554Oslhbyzukofj [Mass/Vol]411 ng/fFQgunsd306-311Jef [facility] CenterComment on above:Result Comment: Adult male reference interval is based on a population of healthy nonobese males (BMI <30) between 19 and 39 years old. precious Perdue.al. JCEM 2017,102;9169-1955. PMID: [id number].Performed By: #### TESTTOT #### [facility] [address] [place] [address] Dr. Mynor Sosa AUTO DIFFon 56-60-7605RKRK #0.0 103/ulNormal0.0-0.1[facility] Medical CenterComment on above:Performed By: #### CBC #### [facility] [address] [place] [address] Dr. Yilan ChangBasophils/100 WBC (Bld)0.2 %Normal0.2-2.0The [facility] Comment on above:Performed By: #### CBC #### [facility] [address] [place] [address] Dr. Mynor Echols #0.1 103/ulNormal0.0-0.7The [facility] Medical CenterComment on above: Performed By: #### CBC #### [facility] [address] [place] [address] Dr. Mynor Escamillaosinophils/100 WBC (Bld)1.2 %Normal0.9-7.0The [facility] Comment on above:Performed By: #### CBC #### [facility] [address] [place] [address] Dr. Mynor Escamillarythrocyte distribution width (RBC) [Ratio]14.3 %Zezdwx40.0-15.0 The [facility] Medical CenterComment on above:Performed By: #### CBC #### [facility] [address] [place] [address] Dr. Mynor YunHematocrit (Bld) [Volume fraction]47.3 %Urltml88.0-54.0The [facility] CenterComment on above:Performed By: #### CBC #### [facility] [address] [place] [address] Dr. Mynor YunHemoglobin (Bld) [Mass/Vol]15.2 g/iYRfhnmc43.0-18.0The [facility] CenterComment on above:Performed By: #### CBC #### [facility] [address] [place] [address] Dr. Mynor Perez #0.03 10e3/ulNormal0.00-0.03The [facility] CenterComment on above:Performed By: #### CBC #### [facility] [address] [place] [address] Dr. Mynor Perez %0.3 %Normal0.0-0.5The [facility] CenterComment on above: Performed By: #### CBC #### [facility] [address] [address] [address] Mynor Pierce #1.6 103/ulNormal1.2-3.8The [facility] CenterComment on above:Performed By: #### CBC #### [facility] [address] [place] [address] Dr. Mynor Lombardihocytes/100 WBC (Bld)18.4 %Critically low20.5-60.0The [facility] CenterComment on above:Performed By: #### CBC #### [facility] [address] [place] [address] Dr. Mynor MorleyUAL DIFF REQNONormalThe [facility] CenterComment on above: Performed By: #### CBC #### [facility] [address] [place] [address] Dr. Mynor Gates (RBC) [Entitic mass]28.8 evWuzacp23.9-34.0The [facility] CenterComment on above:Performed By: #### CBC #### [facility] [address] [place] [address] Dr. Mynor Gates (RBC) [Mass/Vol]32.1 g/aOGldzvb33.9-35.2The [facility] CenterComment on above:Performed By: #### CBC #### [facility] [address] [place] [address] Dr. Mynor Gates (RBC) [Entitic vol]89.8 yADwurup91.0-94.0The [facility] CenterComment on above:Performed By: #### CBC #### [facility] [address] [place] [address] Dr. Mynor Leon #0.7 103/ulNormal0.3-0.8The [facility] CenterComment on above:Performed By: #### CBC #### [facility] [address] [place] [address] Dr. Mynor Grigsbyocytes/100 WBC (Bld)8.4 %Normal1.7-12.0The [facility] Comment on above:Performed By: #### CBC #### [facility] [address] [place] [address] Dr. Mynor ArmijoUT #6.2 103/ulNormal1.4-6.5The [facility] Centerment on above:Performed By: #### CBC #### [facility] [address] [place] [address] Dr. Mynor Armijoutrophils/100 WBC (Bld)71.5 %Cwkneh86.0-75.0[facility] on above:Performed By: #### CBC #### [facility] [address] [place] [address] Dr. Mynor YunPlatelet mean volume (Bld) [Entitic vol]8.7 fLCritically low 9.5-13.5The [facility] CenterCom[facility] on above:Performed By: #### CBC #### [facility] [address] [place] [address] Dr. Mynor YunPLT263 103/ugRfgovj641-156[facility] on above: Performed By: #### CBC #### [facility] [address] [place] [address] Dr. Mynor YunRBC5.27 106/ulNormal4.70-6.10The [facility] on above:Performed By: #### CBC #### [facility] [address] [place] [address] Dr. Mynor YunWBC8.7 103/ulNormal4.0-11.0The [facility] on above: Performed By: #### CBC #### [facility] [address] [place] [address] Dr. Mynor YunLIPID PROFILEon 40-06-2083ISWY-HDL RATIO NORMSEE [facility] on above:Result Comment: 3.3 - 4.4 LOW RISK 4.4 - 7.1 AVERAGE RISK 7.1 - 11.0 MODERATE RISK >11.0 HIGH RISKPerformed By: #### SSCRN #### [facility] [address] [place] [address] Dr. Mynor YunCholesterol [Mass/Vol]129 mg/dLNormal<=200[facility] Comment on above:Performed By: #### SSCRN #### [facility] [address] [address] [address] Mynor YunCholesterol in HDL [Mass/Vol]34 mg/dLGalion Community Hospital Comment on above:Performed By: #### SSCRN #### [facility] [address] [address] [address] Mynor YunCholesterol in LDL [Mass/Vol]82.2 mg/dLGalion Community HospitalComment on above:Performed By: #### SSCRN #### [facility] [address] [place] [address] Dr. Mynor Luiesterkatja.total/Cholesterol in HDL [Mass ratio]3.8 {ratio} NormalUniversity Hospitals Parma Medical CenterComment on above:Performed By: #### SSCRN #### [facility] [address] [address] [address] Mynor Trimble NORMAL> or = 60 mg/dl - LOW CARDIOVASCULAR RISK <40 mg/dl - HIGH CARDIOVASCULAR RISKGalion Community HospitalComment on above:Performed By: #### SSCRN #### [facility] [address] [place] [address] Dr. Mynor Tomlinson CALC NORMALSEE BELOWGalion Community HospitalComment on above:Result Comment: <100 mg/dl OPTIMAL 100 - 129 mg/dl NEAR OR ABOVE OPTIMAL 130 - 159 mg/dl BORDERLINE HIGH 160 - 189 mg/dl HIGH >190 mg/dl VERY HIGH Performed By: #### SSCRN #### [facility] [address] [address] [address] Mynor YunTriglyceride [Mass/Vol]64 mg/dLNormal<=150[facility] Comment on above:Performed By: #### SSCRN #### [facility] [address] [place] [address] Dr. Mynor YunVLDL CALC12.8 mg/dLNoAvita Health SystemComment on above: Performed By: #### SSCRN #### [facility] [address] [place] [address] Dr. Mynor Krueger 14(COMP METB)on 66-76-5794Qdirmtl [Mass/Vol]3.8 g/dLNormal 3.5-5.0The [facility] CenterComment on above:Performed By: #### TSH, LIPID, CMP #### [facility] [address] [place] [address] Dr. Mynor YunAlbumin/Globulin [Mass ratio]0.9 {ratio}NormalThe [facility] CenterComment on above:Performed By: #### TSH, LIPID, CMP #### [facility] [address] [place] [address] Dr. Mynor Meza [Catalytic activity/Vol]76 U/EJowebj89-655Pnv [facility] CenterComment on above:Performed By: #### TSH, LIPID, CMP #### [facility] [address] [place] [address] Dr. Mynor Sarabia [Catalytic activity/Vol]49 U/HZcynsb74-94Zbe [facility] CenterComment on above:Performed By: #### TSH, LIPID, CMP #### [facility] [address] [place] [address] Dr. Mynor Ramírez gap [Moles/Vol]11.2 mmol/LNormalThe [facility] Comment on above:Performed By: #### TSH, LIPID, CMP #### [facility] [address] [place] [address] Dr. Mynor Brady [Catalytic activity/Vol]31 U/VKytiaq72-96Jmm [facility] CenterComment on above:Performed By: #### TSH, LIPID, CMP #### [facility] [address] [place] [address] Dr. Mynor YunBilirubin [Mass/Vol]0.5 mg/dLNormal0.2-1.3The [facility] Comment on above:Performed By: #### TSH, LIPID, CMP #### [facility] [address] [place] [address] Dr. Mynor YunCalcium [Mass/Vol]9.0 mg/dLNormal8.4-10.2[facility] Comment on above:Performed By: #### TSH, LIPID, CMP #### [facility] [address] [address] [address] Mynor YunChloride [Moles/Vol]104 mmol/IJfiuaa11-484Def [facility] Comment on above:Performed By: #### TSH, LIPID, CMP #### [facility] [address] [address] [address] Mynor YunCO2 [Moles/Vol]30.6 mmol/LCritically high22.0-30.0The [facility] CenterComment on above:Performed By: #### TSH, LIPID, CMP #### [facility] [address] [place] [address] Dr. Mynor YunCreatinine [Mass/Vol]0.95 mg/dLNormal0.66-1.25The [facility] CenterComment on above:Performed By: #### TSH, LIPID, CMP #### [facility] [address] [place] [address] Dr. Mynor EscamillaGFR-AF CHILEAN>60Normal>=60The [facility] CenterComment on above:Performed By: #### TSH, LIPID, CMP #### [facility] [address] [place] [address] Dr. Mynor EscamillaGFR-NON AF CHILEAN>60Normal>=60The [facility] CenterComment on above:Performed By: #### TSH, LIPID, CMP #### [facility] [address] [place] [address] Dr. Mynor YunGlobulin (S) [Mass/Vol]4.3 g/dLNormalThe [facility] CenterComment on above:Performed By: #### TSH, LIPID, CMP #### [facility] [address] [place] [address] Dr. Mynor YunGlucose [Mass/Vol]104 mg/xTXdohhl96-327Gih [facility] Comment on above:Performed By: #### TSH, LIPID, CMP #### [facility] [address] [address] [address] Mynor YunPotassium [Moles/Vol]3.8 mmol/LNormal3.4-5.0The [facility] Comment on above:Performed By: #### TSH, LIPID, CMP #### [facility] [address] [address] [address] Mynor YunProtein [Mass/Vol]8.1 g/dLNormal6.1-8.2The [facility] Comment on above:Performed By: #### TSH, LIPID, CMP #### [facility] [address] [address] [address] Mynor YunSodium [Moles/Vol]142 mmol/FBtjzlz171-203NafUniversity Hospitals [facility] Comment on above:Performed By: #### TSH, LIPID, CMP #### [facility] [address] [place] [address] Dr. Mynor YunUrea nitrogen [Mass/Vol]11.0 mg/dLNormal9.0-20.0[facility] CenterComment on above:Performed By: #### TSH, LIPID, CMP #### [facility] [address] [place] [address] Dr. Mynor Crow nitrogen/Creatinine [Mass ratio]11.6 mg/mgNoAvita Health SystemComment on above:Performed By: #### TSH, LIPID, CMP #### [facility] [address] [place] [address] Dr. Mynor Canela 94-83-2642YMI9.612 uIU/mLNormal0.470-4.680[facility] CenterComment on above:Performed By: #### TSH, LIPID, CMP #### [facility] [address] [place] [address] Dr. Mynor HARVEY BELOWGalion Community HospitalComment on above: Result Comment: <0.34 UIU/ml HYPERTHYROID 0.34-5.60 UIU/ml EUTHYROID >5.60 UIU/ml HYPOTHYROIDPerformed By: #### TSH, LIPID, CMP #### [facility] [address] [address] [address] Mynor Yun Vital Signs Date TimeVital SignValuePerforming VlakpwueuPirwxxsw92-95-0269 09:55-0400Body .3 Natan Potter MD Work Phone: [facility]08-15-2025 09:55-0400Body mass index (BMI) [Ratio]56.74 kg/e5SeojsNury Potter MD Work Phone: [facility]08-15-2025 09:55-0400Body sgsvse955.27 kgNury Potter MD Work Phone: [facility]07-10-2025 11:42-0400Body jijozs108.26 cmJodi Trosten [employer] EDUCATION SCIENCE TEACHER-C Work Phone: [phone] [place], [place] 6040607-10-2025 11:42-0400 Diastolic blood htrquxkh44 mm[Hg]Effie Torsten [employer] EDUCATION SCIENCE TEACHER-C Work Phone: [phone] [place], [place] 6040607-10-2025 11:42-0400 Heart rate79 /minJodi Torsten SPECIAL EDUCATION SCIENCE TEACHER-C Work Phone: [phone] [place], [place] 6040607-10-2025 11:42-0400 Respiratory rate12 /minJodi Torsten SPECIAL EDUCATION SCIENCE TEACHER-C Work Phone: [phone] [place], [place] 6040607-10-2025 11:42-0400 Systolic blood mvrracrc309 mm[Hg]Effie Torsten SPECIAL EDUCATION SCIENCE TEACHER-C Work Phone: [phone] [place], [place] 6040606-03-2025 10:00-0400 Body mass index (BMI) [Ratio]56.85 kg/c3Dsztshij [facility] 02-10-2025 10:00-0400Body rjnpna893.[address] [facility] 01-23-2025 09:34-0400Body .3 Natan Potter MD Work Phone: [facility]05-16-2025 09:34-0400Body mass index (BMI) [Ratio]56.88 kg/p7YsdapNury Potter MD Work Phone: [phone] [place], [place] 0404305-16-2025 09:34-0400Body ypxapv445.73 kgNury Potter MD Work Phone: [phone] [place], [place] 0404305-16-2025 09:34-0400Diastolic blood axnmeexm986 mm[Hg]Nury Potter MD Work Phone: [phone] [place], [place] 0404305-16-2025 09:34-0400Systolic blood mm[Hg]Nury Potter MD Work Phone: [phone] [place], [place] 0404305-01-2025 09:00-0400Body mass index (BMI) [Ratio]55.17 kg/o8WplbwxadD[facility]05-01-2025 09:00-0400Body rcmabs799.9 kgD[facility]04-01-2025 09:00-0400Body ysulwb466.1 cmD[facility] Hospital2025 09:48-0400Body mzyjzc351.1 Natan Potter MD Work Phone: [phone] [place], [place] 0404303-21-2025 09:48-0400Body mass index (BMI) [Ratio]55.17 kg/n5ZchpiNury Potter MD Work Phone: [phone] [place], [place] 0404303-21-2025 09:48-0400Body yddbhv607.9 kgNury Potter MD Work Phone: [phone] [place], [place] 0404302-26-2025 10:17-0500Body .3 cmAnthoelaine Delgadilloher DPM Work Phone: [phone] HospitalVmxjzukbsp42-27-1663 10:17-0500Body mass index (BMI) [Ratio]55.38 kg/e3Mruuufy Rusher DPM Work Phone: [phone] HospitalSyroolgvcp16-24-1590 10:17-0500Body qnddke316.1 kgAnthony Rusher DPM Work Phone: [facility] HospitalYcrimcnlcx63-02-9802 10:31-0500Body pduzgj343.3 cmAnttyrone Conte DPM Work Phone: [phone] HospitalIyvyuzngdr57-85-2639 10:31-0500Body mass index (BMI) [Ratio]55.38 kg/g2OmttyysPedro Conte DPM Work Phone: [facility] HospitalGskqfbghki22-51-7997 10:31-0500Body wjojug811.1 kgAnthsanjay Conte DPM Work Phone: [facility] Healthcare Encounters Encounter DateEncounter TypeCare ProviderFacilityStart: 88-72-3946ktuywmswndZozz L SchwabFacility:FT Bellevtart: 06-30-2025 End: 14-94-2696axnwetdpbyTmwr L SchwabFacility:FT BellevueStart: 06-18-2025 End: 22-26-5102gquzbkwpvoYbop L SchwabFacility:[facility] CenterueStart: 06-05-2025 End: 28-32-0847OcflxcIsdmo N Pratt MD Work Phone: [facility] Physicians [facility] SurgeryComment on above: Low 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Start: 04-24-2025 End: 49-82-9679Ijttyy outpatient visit 25 minutesNury Potter MD Work Phone: [facility] SurgeryComment on above: Insulin resistance (Primary Dx); Incisional hernia, without obstruction or gangrene; Low 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; Morbid obesity with BMI of 50.0-59.9, adult ([facility])Start: 04-24-2025 End: 58-83-2310hetzwzbxycSUKWC N PRATTOhio State University [facility] Center Ambulatory PPGStart: 03-19-2025 End: 76-11-4401etnnziqsfpJmdzDagoberto FLORES Work Phone: [facility] Work Phone: Start: 03-19-2025 End: 58-27-7498Hdmczsz encounter procedureJose Carlos Whitt DO-FPG [facility] Work Phone: Start: 03-16-2025 End: 79-13-8117Yctmuu Alex Potter MD Work Phone: [facility] Physicians [facility] Surgery-BariatricComment on above:Low 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Start: 02-10-2025 End: 27-47-4614Eqnvdjkwgvex consultation with [facility] Hospitalingrid Noriega [facility] DieticiansComment on above:Dietary counseling and surveillance (Primary Dx); Morbid obesity ([facility])Start: 02-10-2025 End: 81-46-4646hqdmiiykpaBRZIXYLEOhioHealth Nelsonville Health Centertart: 01-23-2025 End: 33-88-7874Egxyjf outpatient visit 25 minutesNury Potter MD Work Phone: [facility]icians [facility] SurgeryComment on above: Insulin resistance (Primary Dx); Morbid obesity ([facility]); Low 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Start: 01-23-2025 End: 53-69-2236jtlhyluxigSKPEW N [facility]–APPLETONBRIEHabersham Medical CenterStart: 01-08-2025 End: 29-11-3873fptpskwdjaCRDZHLOSOhioHealth Nelsonville Health Centertart: 01-08-2025 End: 88-43-4616Igfmverbhbpf consultation with [facility] Hospitalingrid Noriega [facility] DieticiansComment on above:Dietary counseling and surveillance (Primary Dx); Morbid obesity ([facility]); History of sleeve gastrectomyStart: 12-29-2024 End: 76-20-7650gcjujkwworOjyqupqGallito Buckner MDFacility:[facility] [place] Start: 12-09-2024 End: 02-08-0660Srkiovilxuuh consultation with [facility] Hospitalingrid Noriega [facility] DieticiansComment on above:Dietary counseling and surveillance (Primary Dx); Morbid obesity ([facility]); History of sleeve gastrectomyStart: 12-09-2024 End: 54-40-3304qovwjpgcvdIBJHIHZZOhioHealth Van Wert Hospitaltart: 12-01-2024 End: 86-30-0914jhzkoomhrxJYQR N [facility] Hospitaltart: 11-28-2024 End: 18-83-7566Scfkry outpatient new 45 minutesNury Potter MD Work Phone: [facility] Physicians General SurgeryComment on above: History of sleeve gastrectomy (Primary Dx); Morbid obesity with BMI of 50.0-59.9, adult ([facility])Start: 11-28-2024 End: 60-77-4939lvqtknbmouYVKXDBinghamton State Hospital Ambulatory PPGStart: 11-26-2024 End: 53-96-2697lyllamnltzYPLZKII S RUSHERNot AvailableStart: 11-05-2024 End: 99-83-9500Wbugbr flowsheetAnthony S Rusher DPM Work Phone: [facility] PODIATRYStart: 11-05-2024 End: 06-17-7981Kcorfn flowsheetAnthony S Rusher DPM Work Phone: [facility] PODIATRYStart: 11-05-2024 End: 62-36-8709avfdbarsmsDQQBBQD S RUSHERNot AvailableStart: 11-05-2024 End: 38-14-1069Pcjnkt follow up visit related to original pxAnthony S Rusher DPM Work Phone: noms PODIATRYComment on above:Valgus deformity, not elsewhere classified, right ankle (Primary Dx); Valgus deformity, not elsewhere classified, left ankle; Instability of left foot joint; Instability of right foot joint; Leg length discrepancy; Posterior tibial tendon dysfunction, bilateralStart: 10-08-2024 End: 18-63-5265Etnufg flowsheetAnthony S Rusher DPM Work Phone: [facility] PODIATRYStart: 10-08-2024 End: 96-82-0499Tvkbxt flowsheetAnthony S Rusher DPM Work Phone: [facility]oms PODIATRYStart: 10-08-2024 End: 97-02-7353Vuzkcoguu encounterEmily MERAZ PODIATRYComment on above:Foot OrthoticsStart: 10-08-2024 End: 67-40-1705Cztugv outpatient new 30 minutesAnthsanjay Conte DPM Work Phone: NOQX PODIATRYComment on above:Valgus deformity, not elsewhere classified, right ankle (Primary Dx); Valgus deformity, not elsewhere classified, left ankle; Instability of left foot joint; Instability of right foot joint; Leg length discrepancyStart: 10-08-2024 End: 45-04-6325twteygcflpTHRHEWP Melissa CONTEHay AvailableStart: 09-01-2024 End: 25-76-0760zddjqxsfqwVttqsjx Vytautas Giedraitis MDFacility:[facility] [place] Start: 07-21-2024 End: 84-81-8944lcgndavutaNxhonyz Vytautas Giedraitis MDFacility:[facility] [place] Start: 06-30-2024 End: 34-55-2245dpmvvtydyyHpauvzg Vytautas Giedraitis MDFacility:[facility] [place] Start: 03-10-2024 End: 74-86-1450veideazzdlNxndceg Vytautas Giedraitis MDFacility:[facility] [place] Start: 02-25-2024 End: 97-05-4971zrknbgdechZrwerwe Vytautas Giedraitis MDFacility:[facility] [place] Start: 02-18-2024 End: 36-98-9943hjpwrrflweYpqtwjx Vytautas Giedraitis MDFacility:[facility] [place] Start: 01-23-2024 End: 32-48-4865bothqgfbhvLKRI [facility] Hospitaltart: 08-23-2023 End: 88-33-4873Yha Drop offJodi L Torsten [facility] Start: 03-19-2023 End: 98-72-4719Yyk Drop offJodi L Torsten [facility] Start: 07-28-2022 End: 92-92-6956jkcniyzqqoTI KIM E KNIGHTFacility:X0Dnyeg: 02-01-2022 End: 47-50-3324vdgolceyoqSV LULU Tejeda IVANJAMALFacility:T2Sduhz: 64-36-9644Fxmvywdko for general adult medical examination without abnormal findingsDR LULU BLANK [facility] Hospitaltart: 11-11-2021 End: 25-91-7355kiozrppukuAZ KIM Nikhil BLANKFacility:U8Hpfta: 11-11-2021 End: 28-24-3419Tytbhlwrd for general adult medical examination without abnormal findingsDR LAWSON Nikhil SHEILAFacility:B9Syeqq: 11-10-2021 End: 77-25-3590fvrwrrclptUHNRYOCX EBERLYFacility:H1 Procedures DateProcedureProcedure DetailPerforming ClinicianStart: 63-16-9277Wnvgsb-up visitFollow-upBRUNC HEALTH ROCKINGH[facility] Jono Sarmiento Comment on above:2009 Plan of Treatment DateCare ActivityDetailAuthorStart: 92-38-3827Vvszl BMI ScreeningAdult BMI ScreeningOhio State University [facility] Medical Center SystemStart: 63-53-1664Uharafs ScreeningTobacco ScreeningOhio State University [facility] Medical Center SystemStart: 69-43-8614Qwbgk BMI ScreeningAdult BMI ScreeningOhio State University Wex[facility] Medical Center SystemStart: 68-59-2116Bwhdj BMI ScreeningAdult BMI ScreeningOhio State University [facility] Medical Center SystemStart: 95-06-9888Egtlnzl ScreeningTobacco ScreeningOhio State University [facility] Medical Center SystemStart: 47-38-8113Rqsuq BMI ScreeningAdult BMI ScreeningOhio State University [facility] Medical Center SystemStart: 22-21-9320Gzazx BMI Follow Up PlanAdult BMI Follow Up PlanOhio State University We[facility]ner Medical Center SystemStart: 95-38-0274Fxvtf BMI Screening Adult BMI ScreeningOhio State University Wexner Medical Center SystemStart: 07-25-2025 End: 43-68-6560Cbsuh metabolic 2000 panel - Serum or PlasmaBasic Metabolic Panel Lab Routine Low 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 Expected: 07/25/2025 (Approximate), Expir es: 04/24/2026[facility] SystemComment on above:Expected: 07/25/2025 (Approximate), Expires: 04/24/2026Start: 07-25-2025 End: 00-27-5001PLW W Auto Differential panel - BloodCBC auto differential Lab Routine Low 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 Expected: 07/25/2025 (Approximate), Expires: 04/24/2026[facility]Comment [facility]:Expected: 07/25/2025 (Approximate), Expires: 04/24/2026Start: 07-25-2025 End: 01-40-8112Gjwfeeg, Free and Total, SerumInsulin, Free and Total, Serum Lab Routine Low 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 Expected: 07/25/2025 (Approximate), Expires: 04/24/2026[facility] CampusComment on above:Expected: 07/25/2025 (Approximate), Expires: 04/24/2026Start: 07-25-2025 End: 75-02-4284Bawncrxxr specific antigen screenProstatic specific antigen screen Lab Routine Low 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 Expected: 07/25/2025 (Approximate), Expires: 04/24/2026[facility] CampusComment on above:Expected: 07/25/2025 (Approximate), Expires: 04/24/2026Start: 07-25-2025 End: 23-05-2300Lmnbzyfchlmv, Total and Free, STestosterone, Total and Free, S Lab Routine Low 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 Expected: 07/25/2025 (Approximate), Expires: 04/24/2026[facility] CampusComment on above:Expected: 07/25/2025 (Approximate), Expires: 04/24/2026Start: 07-24-2025 End: 34-67-2028Erlvbop encounter qtsiwkkdo96/14/2025 9:00 AM EST Office Visit [facility] General Surgery [address], [id number] Nury Potter MD [address] [place] [address] [facility] General SurgeryStart: 05-11-2025 COVID-19 Vaccine ( season)COVID-19 Vaccine ( season) [facility]: 32-91-2968Urvmwwegd vaccinationInfluenza Vaccine [facility] Hospitaltart: 05-01-2025 End: 27-32-6140NU Abdomen and Pelvis W contrast IVCT abdomen and pelvis with contrast Imaging Routine Incisional hernia, without obstruction or gangrene Expected: 05/01/2025 (Approximate), Expires: 04/24/2026[employer] Work Phone: Comment on above:Expected: 05/01/2025 (Approximate), Expires: 04/24/2026Start: 04-25-2025 End: 43-77-9131Dsdra metabolic 2000 panel - Serum or PlasmaBasic Metabolic Panel Lab Routine Insulin resistance Expected: 04/25/2025 (Approximate), Expires: [facility]Comment [facility]:Expected: 04/25/2025 (Approximate), Expires: 01/23/2026Start: 04-25-2025 End: 69-60-4838Ekqjdkg, Free and Total, SerumInsulin, Free and Total, Serum Lab Routine Insulin resistance Expected: 04/25/2025 (Approximate), Expires: 01/23/2026[facility] CampusComment on above:Expected: 04/25/2025 (Approximate), Expires: 01/23/2026Start: 04-25-2025 End: 70-16-3527Klwlytqnqtjr, Total and Free, STestosterone, Total and Free, S Lab Routine Low 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 Expected: 04/25/2025 (Approximate), Expires: 01/23/2026[employer] Work Phone: Comment on above:Expected: 04/25/2025 (Approximate), Expires: 01/23/2026Start: 04-24-2025 End: 90-64-0767Pddhemd encounter fzdxqzxap47/15/2025 10:00 AM EDT Office Visit [facility] General Surgery [address] [place] [address] Nury Potter MD [address] [place] [address] [facility] General SurgeryStart: 02-10-2025 End: 43-42-3225Vtzksuszzryj consultation with gcnhypl8102/10/2025 10:00 AM EDT Tele[facility]ians [address] [place] [phone] Iris Noriega [facility] DieticiansStart: 01-23-2025 End: 85-10-6954Wmdefck encounter yykiyqwms89/16/2025 9:30 AM EDT Office Visit [facility] [address], [id number] Nury Potter MD [address] [place] [address] [facility] Physicians General SurgeryStart: 01-08-2025 End: 78-98-2515Hwjrtulwnnap consultation with cjksorr1101/08/2025 9:00 AM EDT Telemedicine [facility] [address] [place] [phone] Iris Noriega [facility] DieticiansStart: 12-09-2024 End: 45-70-4619Bcdlvjlrgomq consultation with dbhfcor3812/09/2024 9:00 AM EDT Telemedicine [facility] [address] [place] [phone] Iris Noriega [facility] DieticiansStart: 11-11-2024 End: 96-36-2303Fdkhrrz encounter vcycfgsvh20/04/2025 4:45 PM EST Office Visit [facility] JIMENEZ [address] [place] [phone] Lanny Guthrie DO [address] [place] [address] LEANDRO GARCIAtart: 11-05-2024 End: 36-53-3827Wlgwsqg encounter lumxllymm91/26/2025 10:00 AM EST Office Visit [facility] [address] [place] [phone] Pedro Conte, DPM [address] [place] [address] [facility] PODIATRYStart: 10-08-2024 End: 98-28-7557Ercging encounter oomeujplo43/29/2025 10:45 AM EST Office Visit [facility] [address] [place] [id number] Pedro Conte, DPM [address] [place], [place] [id number] ArrivedNOCAMERON [facility] PODIATRYComment on above:ArrivedStart: 94-29-5631KVXEW-19 Vaccine ( season)COVID-19 Vaccine ()[facility] SystemStart: 69-03-9176LVtU,Tdap and Td Vaccines (1 - Tdap)DTaP,Tdap and Td Vaccines (1 - Tdap)[facility] SystemStart: 70-95-5003Rgbjg BMI Follow Up PlanAdult BMI Follow Up PlanOhio State University [facility] Medical Center SystemStart: 1989 Depression ScreeningDepression ScreeningOhio State University [facility]xner [facility] SystemStart: 1989 Tobacco ScreeningTobacco ScreeningOhio State University Wexner Medical Center SystemStart: 1977 Screening for malignant neoplasm of [facility]University [facility] End: 25-43-3669ZZW W Auto Differential panel - BloodCBC auto differential Lab Routine History of sleeve gastrectomy 1 Occurrences starting 11/28/2024 until 11/28/2025[facility] Work Phone: Comment on above:1 Occurrences starting 11/28/2024 until 11/28/2025 End: 47-57-6785RKJ W Auto Differential panel - BloodCBC auto differential Lab Routine Low 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 1 Occurrences starting 03/16/2025 until 0 03/16/2026[facility] Work Phone: Comment on above:1 Occurrences starting 03/16/2025 until 03/16/2026 End: 66-85-6862Tmutkzfbzdufiu vitamin b-12Vitamin B12 Lab Routine History of sleeve gastrectomy 1 Occurrences starting 11/28/2024 until 11/28/2025[facility]Comment [facility] above:1 Occurrences starting 11/28/2024 until 11/28/2025 End: 93-75-2612Dhahmiemfo A1c/Hemoglobin.total in BloodHemoglobin A1c Lab Routine History of sleeve gastrectomy 1 Occurrences starting 11/28/2024 until 11/28/2025[facility] SystemComment on above:1 Occurrences starting 11/28/2024 until 11/28/2025 End: 18-14-5125Qifdmuv, Free and Total, SerumInsulin, Free and Total, Serum Lab Routine History of sleeve gastrectomy 1 Occurrences starting 11/28/2024 until 11/28/2025[facility] CampusComment on above:1 Occurrences starting 11/28/2024 until 11/28/2025 End: 97-11-2427Dxzj [Mass/volume] in Serum or PlasmaIron Lab Routine History of sleeve gastrectomy 1 Occurrences starting 11/28/2024 until 11/28/2025[facility] CampusComment on above:1 Occurrences starting 11/28/2024 until 11/28/2025 End: 26-95-2549Fsayc panelLiver panel Lab Routine History of sleeve gastrectomy 1 Occurrences starting 11/28/2024 until 11/28/2025[facility] CampusComment on above:1 Occurrences starting 11/28/2024 until 11/28/2025 End: 35-55-3590Zkakybsarkn Hormone, intactParathyroid Hormone, intact Lab Routine History of sleeve gastrectomy 1 Occurrences starting 11/28/2024 until 11/28/2025[facility] CampusComment on above:1 Occurrences starting 11/28/2024 until 11/28/2025 End: 60-20-8259VMS w/ RFLX to Free PSAPSA w/ RFLX to Free PSA Lab Routine Low 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 1 Occurrences starting 03/16/2025 until 03/16/2026[facility] CampusComment on above:1 Occurrences starting 03/16/2025 until 03/16/2026 End: 31-34-8030Vzoyxbazakjo, Total and Free, STestosterone, Total and Free, S Lab Routine History of sleeve gastrectomy 1 Occurrences starting 11/28/2024 until 11/28/2025[facility] SystemComment on above:1 Occurrences starting 11/28/2024 until 11/28/2025 End: 28-62-0145Vxawjmphqrk [Units/volume] in Serum or PlasmaTSH Lab Routine History of sleeve gastrectomy 1 Occurrences starting 11/28/2024 until 11/28/2025 [facility] SystemComment on above:1 Occurrences starting 11/28/2024 until 11/28/2025 End: 18-43-9861Alboudk D 25 hydroxyVitamin D 25 hydroxy Lab Routine History of sleeve gastrectomy 1 Occurrences starting 11/28/2024 until 11/28/2025[facility] SystemComment on above:1 Occurrences starting 11/28/2024 until 11/28/2025 Immunizations Immunization DateImmunizationNotesCare QhkfbituMwatuvdk20-70-8199epunibzpc, seasonal, injectable, preservative freeAnthony Rusher DPM Work Phone: [facility] HospitalAdxtxvvsbo18-65-4330brvlkssvp virus vaccine, unspecified formulationIris Noriega [facility]09-21-2023 influenza virus vaccine, unspecified formulationJodi Torsten [phone]-RzivhUpper Valley Medical Center 30-92-3914eehrbjghu, injectable, quadrivalent, preservative freeAnthony Rusher DPM Work Phone: [facility] HospitalRohrllpnlr08-19-6221amabecune virus vaccine, unspecified formulationJodi Torsten 680-0577Smenoh-DxgqaMount St. [facility]09-28-2022 influenza, injectable, quadrivalent, preservative freeAnthony Rusher DPM Work Phone: [facility] HospitalEdjwwatmjm94-30-5658BELC-YsY-7 (COVID-19) mRNA BNT-162b2 vaxJodi Torsten 816-4861Ttpeeb-OnnomMount St. Mary Hospital02-12-2021 SARS-CoV-2 (COVID-19) mRNA BNT-162b2 vaxJocolleen Torsten 226-0537Ktqgcv-NznwwMount St. [facility] Hospital07-01-2019 pneumococcal polysaccharide vaccine, 23 valentJodi Torsten 538-4489Rubkts-EvrswSelect Medical [facility] Rehabilitation Hospital, Edwin Shawue12-09-2009novel ffldueizo-F1C9-62, preservative-free, injectableAnthony Rusher DPM Work Phone: [facility] Payers DatePayer CategoryPayerPolicy [id number] [id number] Navajo Medical CenterBC [id number]8-85-1035LwwvNorthern Navajo Medical Center Managed Care - [id number] [id number] 2013Medicare1977Unknown [id number] 20.1.652280.3.57[id number] 20.1.939080.3.57[id number] 2.16.840.1.336261.3.57[id number] 2.16.840.1.741987.3.57[id number] 2.16.840.1.037634.3.57[id number] 2..840.1.966293.3.57[id number] 2.16.840.1.762653.3.57[id number] 2.840.1.145855.3.57[id number] 2.840.1.887220.3.57[id number] 2.840.1.689376.3.57[id number] 2.840.1.607592.3.57[id number] 2..840.1.104771.3.57[id number] 2.840.1.238058.3.57[id number] 2.16840.1.905596.3.57[id number] 2.840.1.237520.3.57[id number] 2.16840.1.183604.3.57[id number] 2.840.1.501512.3.57[id number] 2.16.840.1.599842.3.57[id number] 2.16.840.1.724415.3.57[id number] 2.16.840.1.444914.3.57[id number] 2.16.840.1.469059.3.57[id number] 2.16.840.1.444834.3.57[id number] 2.16.840.1.984645.3.57[id number] 2..840.1.701745.3.57[id number] 2.16.840.1.324848.3.57[id number] 2..840.1.628657.3.57[id number] 2..840.1.697281.3.579.2.727 [id number] 1960Unknown [id number] Social History DateTypeDetailFacilityStart: 03-19-2023 End: 42-94-2916Kmrycrk smoking statusEx-smoker (finding)[facility] ShawueTobacco smoking statusNeverUniversity Hospitals Geneva Medical CenterevueStart: 02-19-2019 End: 32-85-5708Ukx Assigned At BirthMalOur Lady of Mercy Hospitaltart: 66-46-6346Tfdqvaf smoking status NHISNever smoked tobaccoNOMS HealthcareStart: 04-05-2023 End: 14-62-2089Maygkhs use and exposureSmokeless tobacco non-userNOMS Healthcare Start: 10-08-2024 End: 03-55-9498Iaxgwqdha beverage intakeEx-drinker (finding)[facility] Start: 02-19-2019 End: 82-45-0999Pdrdhxl of Social functionNOMS HealthcareStart: 25-08-4090Fyz assigned at [facility] hospitalNot on fileNODC HealthcareTobacco smoking status NHISTobacco smoking consumption unknownOhio State University [facility] SystemStart: 25-17-8730KvnNrjt (finding)[facility] SystemHistory of tobacco useCurrent smokerOhio State University Wexner Medical Center SystemHistory of tobacco useCigarette SmokerOhio State University Wexner Medical Center SystemStart: 01-23-2025 End: 03-78-6679Ehiwxwnka beverage intakeNot AskedOhio State University Wexner Medical Center SystemStart: 54-94-9159Clonctz CommentSOCIALLYPSumma Health Wadsworth - Rittman [facility] Center SystemStart: 01-64-5432Jqc Assigned At [facility] Clinical Notes 11-10-2021 to 04-24-2025 Note Date & TkhkBqqdXaupjzgx70-65-5097 History of Present illness Narrative* Nury Potter MD - 04/24/2025 10:00 AM EDT Bariatric Surgery Progress Note Subjective The patient is a 6-year-old male who had a sleeve gastrectomy in [place] in 2009 that was complicated by bowel [...] likely need to return to [facility] where it was originally repaired due [...] 3 months with labs documented in this encounterDoctors HospitalCircadence Gzpxtw42-35-3916 History of Present illness Narrative* DEION Lerma - 02/10/2025 10:00 AM EDT Bariatric Medical Nutrition Therapy Nutritional Assessment/Education Weight check Video Visit via Real-time Synchronous Audiovisual Provider Location: [facility] [address] [place] [phone] Patient Location: Patient's home Video Visit Consent [...] that there are some limitations compared to gyja-ef-bwgu evaluations. The patient consented to the presence [...] 958 End time: 1021 documented in this encounterDoctors HospitalSomera Communications [facility] HospitalAodygn27-56-0846 Instructions* Patient Instructions* DEION Lerma - 02/10/2025 10:00 AM EDT Read the [facility] Bariatric Guide. If you re looking for general health and wellness resources, please visit [facility] [email or web address]. 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 [address] [place] [phone] Patient Location: Patient's home Video Visit [...] that there are some limitations compared to dytz-iu-ckkw evaluations. The patient consented to the presence [...] with veggies, ham and turkey with regular yemeni dressing with a cheeseburger lucas (no bun), [...] iron daily or 1 vitamin daily. 2) 3302-3724 mg calcium in divided doses (2x/day) for sleeve and gastric bypass, 2178-9732 mg in divided doses (3x/day) for SADS [...] 910 End time: 939 documented in this encounterDoctors HospitalEdmodo05-01-2025 Instructions* Patient Instructions* DEION Lerma - 01/08/2025 9:00 AM EDT Read the [facility] Bariatric Guide. If you re looking for general health and wellness resources, please visit [facility] [email or web address]. documented in this encounterDoctors HospitalCircadence Bjlwwz37-96-1351 History of Present illness Narrative* DEION Lerma - 12/09/2024 9:00 AM EDT Bariatric Medical Nutrition Therapy Nutritional Assessment/Education Session: Post-op Rakesh Vaughn is a 49 y.o. male who presents for medical nutritional therapy after weight loss surgery. Video Visit via Real-time Synchronous Audiovisual Provider Location: [facility] [address] [place] [phone] Patient Location: Waiting room in [place] (for father's surgery) Video Visit Consent Statement: [...] that there are some limitations compared to glzi-np-nssq evaluations. The patient consented to the presence of additional virtual and/or in-person participants. We elected to proceed. Barrier learning assessment: Yes Weight: unable to get one Rakesh had a sleeve gastrectomy in [place] in 2009. He received minimal nutrition information [...] iron daily or 1 vitamin daily. 2) 1898-8813 mg calcium in divided doses (2x/day) for sleeve and gastric bypass, 1752-4882 mg in divided doses (3x/day) for SADS [...] all discussed has been provided within the [facility] Bariatric Guide. My contact name and number provided if questions or concerns arise. Nutrition Monitoring: To monitor weight to show progress. Start time: 0904 End time: 0950 documented in this encounterKettering Health Main Campus04-01-2025 Instructions* Patient Instructions* DEION Lerma - 12/09/2024 9:00 AM EDT Read the [facility] Bariatric Guide. If you re looking for general health and wellness resources, please visit [facility] [email or web address]. documented in this encounterKettering Health Main Campus2025 History of Present illness Narrative* Nury Potter MD - 11/28/2024 9:30 AM EDT [facility] GENERAL SURGERY [facility] [phone] [facility] SURGICAL WEIGHT LOSS PROGRAM INITIAL EVALUATION Patient: Rakesh Vaughn Service Date: 11/28/2024 Chief complaint: Wants help with weight loss 15 years after sleeve gastrectomy in [place] The patient is a 49 y.o. year [...] The patient had a sleeve gastrectomy in [place] in 2009. Two days after surgery he began having fever and chills and after workup was found to have an intra- abdominal abscess. He was seen at the [facility] by Crystal Parsons MD and underwent [...] week based on the recommendations from the [employer]. He is not eager to alegre into another surgery given his past experience. 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 [x] No [] Yes Do you have [...] turgor normal, no rashes or lesions Neurologic: civil engineer intact, normal strength. Alert and oriented. Follows [...] to ensure the accuracy of this automated mental health unit lead psychologist, some errors in mental health unit lead psychologist may have occurred. documented in this encounterRockingham Memorial HospitalWater Health International Lbbbga41-53-8359 History of Present illness Narrative* Pedro Conte [...] Allergic rhinitis Autonomic dysfunction COVID-19 03/2020 Depression ([facility]) ETD (Eustachian tube dysfunction), bilateral H/O [...] understanding. Pedro Conte DPM documented in this encounterNOBarnes-Jewish HospitalAvxgmcugmj58-93-1981 Telephone encounter Note* Telephone Encounter - Donald Monson - 10/21/2024 4:48 PM EST Wvsm-jz-hysi is scheduled for October 28 at 4:45 pm. They will call our office for the meeting [facility] [id number] Miscellaneous Notes* Telephone Encounter - Donald Monson - 10/21/2024 4:48 PM EST Vhfu-lg-oasz is scheduled for October 28 at 4:45 [...] precert was approved. Thanks documented in this encounterUniversity of Missouri Children's HospitalJbuclrlzwr85-87-3006 Telephone encounter Note* Telephone Encounter - Emily [...] And if precert was approved. Thanks [facility] [id number] History of Present illness Narrative* Pedro Conte, DPM - 10/08/2024 10:45 AM EST Images from the original note were not included. Subjective Patient ID: Rakesh Vaughn is a 49 y.o. 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 Pt [...] understanding. Pedro Conte DPM documented in this encounterUniversity of Missouri Children's HospitalRklpegwphq52-52-7021 Evaluation + Plan note Diagnostic Tests Pending * Testosterone Level Total 08/23/23 [facility]03-03-2022 NotePROCEDURE: XR HAND LT MIN 3V COMPARISON: [...] Electronically authenticated by: KELLIE SMALLS Date: 2021-11-10 13:16[facility] CenterEvaluation + Plan note Future Appointments Appointment Date:04/23/2023 11:00:00 AM Scheduled Provider:Effie Muhammad [facility] Diagnosis Valgus deformity, not elsewhere classified, right ankle- Primary Valgus deformity, not elsewhere classified, left ankle Instability of left foot joint Instability of right foot joint Leg length discrepancy Unequal leg length (acquired) documented in this encounter [facility] HospitalEvaluation [facility]* Diagnosis Valgus deformity, not elsewhere classified, right ankle- Primary Valgus deformity, not elsewhere classified, left ankle Instability of left foot joint Instability of right foot joint Leg length discrepancy Unequal leg length (acquired) Posterior tibial tendon dysfunction, bilateral documented in this encounter [facility] HealthcareEvaluation note* Diagnosis History of sleeve gastrectomy- Primary Morbid obesity with BMI of 50.0-59.9, adult ([facility]) documented in this encounter [facility] SystemEvaluation note* Diagnosis Dietary counseling and surveillance- Primary Morbid obesity ([facility]) Morbid obesity History of sleeve gastrectomy documented in this encounter [facility] SystemEvaluation note* Diagnosis Dietary counseling and surveillance- Primary Morbid obesity ([facility]) Morbid obesity History of sleeve gastrectomy documented in this encounter [facility] SystemEvaluation note* Diagnosis Insulin resistance- Primary Other abnormal glucose Morbid obesity ([facility]) Morbid obesity Low 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 documented in this encounter [facility] SystemEvaluation note* Diagnosis Dietary counseling and surveillance- Primary Morbid obesity (CMS-HCC) Morbid obesity documented in this encounter [facility] SystemEvaluation note* Diagnosis Low 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 documented in this encounter [facility] SystemEvaluation note* Diagnosis Onset Date Resolution Status Admit Date Pre-employment examination acuteJuly 2024 10:52am [facility] Work Phone: Evaluation note* Diagnosis Insulin resistance- Primary Other abnormal glucose Incisional hernia, without obstruction or gangrene Low 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 Morbid obesity with BMI of 50.0-59.9, adult (CMS-HCC) documented in this encounter [facility] SystemEvaluation note* Diagnosis Low 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 documented in this encounter [facility] Narrative No data available for this section [facility] Discharge instructions No data available for this section [facility] DaytonInstructionsNot on filedocumented in this encounter [facility] SystemInstructionsNot on filedocumented in this encounter [facility] SystemInstructionsNot on filedocumented in this encounter [facility]Ess[facility] SystemInstructionsNot on filedocumented in this encounter [facility] SystemInstructionsNot on filedocumented in this encounter [facility] SystemProgress note No data available for this section [facility] DaytonReason for referral (narrative)No reason for referral information availablePremier Health [facility] Work Phone: Summary Purpose Family History No [...] Reason for Visit Chief Complaint Admit Date Shipping Checker Physical March 19, 2025 10:5 2am Reason [...] section and content) DATE CREATED AUTHOR 01/28/2022 [facility] DATE CREATED AUTHOR AUTHOR'S ORGANIZ ATION 08/10/2022 [facility] DATE CREATED AUTHOR AUTHOR'S ORGANIZ ATION 01/28/2024 [facility] DATE CREATED AUTHOR AUTHOR'S ORGANIZ ATION 11/28/2024 [facility] DATE CREATED AUTHOR AUTHOR'S ORGANIZ ATION 12/07/2024 [facility] DATE CREATED AUTHOR AUTHOR'S ORGANIZ ATION 01/06/2025 [facility] DATE CREATED AUTHOR AUTHOR'S ORGANIZ ATION 02/11/2025 [facility] DATE CREATED AUTHOR AUTHOR'S ORGANIZ ATION 04/26/2025 [facility] DATE CREATED AUTHOR AUTHOR'S ORGANIZ ATION 06/20/2025 [facility] DATE CREATED AUTHOR AUTHOR'S ORGANIZ ATION 07/01/2025 [facility] Patient Care team informatio n (unrecognized section and content) Team MemberRelationshipSpecialtyStart DateEnd Date Lulu Blank MD [address] [place] [address] PCP - [facility]Wal[facility] Medicine04/05/23Team MemberRelationshipSpecialtyStart DateEnd Date Lulu Blank MD [address] [place] [address] PCP - Generalmi Medicine04/05/23Team MemberRelationshipSpecialtyStart DateEnd Date Lulu Blank MD [address] [place] [address] PCP - GeneralFamily Medicine04/05/23Team MemberRelationshipSpecialtyStart DateEnd Date Lulu Blank MD [address] [place] [address] PCP - GeneralFamily Medicine04/05/23am MemberRelationshipSpecialtyStart DateEnd Date Lulu Blank MD [address] [place] [address] PCP - GeneralFamily Medicine04/05/23am MemberRelationshipSpecialtyStart DateEnd Date Effie Sarmiento, GRINDER SET UP OPERATOR JIG-FAST FOOD CREW LE[employer] [address] [place] [address] PCP - GeneralNurse Practitioner3Te MemberRelationshipSpecialtyStart Date End Date Effie Sarmiento, GRINDER SET UP OPERATOR [employer] CREW [employer] [address] [place] [address] PCP - GeneralNurse Practitioner11/28/24Te MemberRelationshipSpecialtyStart Date End Date Effie Sarmiento, GRINDER SET UP OPERATOR J[employer]ST FOOD CREW LE[employer] [address] [place] [address] PCP - GeneralNurse Practitioner11/28/24Team MemberRelationshipSpecialtyStart Date End Date Effie Sarmiento, GRINDER SET UP OPERATOR JIG-FAST FOOD CREW LE[employer] [address] [place] [address] PCP - GeneralNurse Practitioner3Team MemberRelationshipSpecialtyStart Date End Date Effie Sarmiento, GRINDER SET UP OPERATOR J[employer]-FA[employer] FOOD CREW LE[address] [place] [address] PCP - GeneralNurse Practitioner11/28/24Team MemberRelationshipSpecialtyStart Date End Date Effie Sarmiento, GRINDER SET UP OPERATOR [employer]ST [employer]OD CREW [employer] [place], [place] [id number] PCP - GeneralNurse Practitioner11/28/24 Team Status: Active Member Role Status Dates Effie Sarmiento , SPECIAL EDUCATION SCIENCE TEACHER-C Primary Care Provider Active Team Status: Inactive Member Role Status Dates Jose Carlos Whitt DO Attending Provider Active Sta rt: March 19, 2025 End: March 19, 2025Jocolleen Sarmiento , SPECIAL EDUCATION SCIENCE TEACHER-CPrimary Care ProviderActiveStart: March 19, 2025 End: March 19, 2025Team MemberRelationshipSpecialtyStart DateEnd Date Effie Sarmiento, GRINDER SET UP OPERATOR [employer] CREW [employer] [address] [place] [address] PCP - GeneralNurse Practitioner11/28/24Team MemberRelationshipSpecialtyStart Date End Date Effie Sarmiento, GRINDER SET UP OPERATOR JIG-FAST FOOD CREW LEAD [address] [place] [address] PCP - GeneralNurse Practitioner11/28/24Team MemberRelationshipSpecialtyStart Date End Date Effie Sarmiento, GRINDER SET UP OPERATOR JIG-FAST FOOD CREW LEAD [address] [place], [place] [id number] PCP - GeneralNurse Practitioner11/28/24 Reason for Visit (unrecogniz ed section and content) ReasonCommentsFoot [age]rs37 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 Pt states his current ones broke, and is wanting to get new ones. Pt has had these orthotics for about 5 years. Pt did not bring orthotics with him today. SS: 10.5WReasonOnset DateCommentsFoot Uxrahojmk42/29/2025ReasonComments Scan OrthoticsRakesh Vaughn is a 49 y.o. male who presents to be scanned Orthotics SS: 10.5WReasonCommentsNew PatientNeed MNT 1 of 3ReasonComments Nutrition CounselingSpecialtyDiagnoses / ProceduresReferred By ContactReferred To ContactNutrition Diagnoses [place] [address] [place] [address] Phone: tel: fax: Referral IDStatusReasonStart DateExpiration DateVisits RequestedVisits [id number] Specialty Services Required [id number] CounselingFollow-upSpecialty Diagnoses / ProceduresReferred By ContactReferred To ContactNutrition Diagnoses History of sleeve gastrectomy Nury Potter MD [address] [place] [address] Phone: tel: fax: Referral IDStatusReasonStart DateExpiration DateVisits RequestedVisits [id number] Specialty Services Required [id number]C PATIENTgo over labs/1st refreshor visit with dititian [...] BASED ON THE PRIMARY CLINICAL RECORDS. [facility]. provides no warranty or guarantee of the accuracy or completeness of information in this document.
== END 2025-08-21 12:32 | disposition home or self-care (01) ==
LOC: MRI 12:31
PROVIDERS: PCP Nurse Practitioner; Visit Provider Nurse Practitioner
DX: M48.062 Spinal stenosis, lumbar region with neurogenic claudication (principal); M51.362 Other intervertebral disc degeneration, lumbar region with discogenic back pain and lower extremity pain
CPT/HCPCS: 72148

== ENCOUNTER 2025-08-26 12:39 | Outpatient (OUT) | payer OTHER, SELFPAY ==
--- OUTSIDE RECORDS SUMMARY | 2025-08-21 04:30 | XMS_ITS ---
Author Organization [facility] Address [address], [place] [address] Care Team Providers Care Foster Parent Name Role Phone Alexia Mancilla Primary Care Provider UnavailJeremy Camarillo Unavailable [phone] Allergies No Known Allergies REASON FOR VISIT Left Foot Pain Medications Medication SIG (Take, Route, Frequency, Duration) Notes Start Date End Date Status dexAMETHasone Sodium Phospha te 4 MG/ML Solution 1.5 - 2.5 mL topical 3 times a week; Duration: 28 days take to physical therapy for iontophoresis 5ActivedexAMETHasone Sodium Phosphate 4 MG/ML Solution 1.5 - 2.5 mL topical 3 times a week; Duration: 28 days take to physical therapy for iontophoresis 5ActiveBaclofen 10 MG TabletOral; Duration: 30 DaysActivePARoxetine HCl 10 MG TabletTAKE 1 TABLET BY MOUTH EVERY DAY Oral; Duration: 90 DaysActive traMADol HCl 50 MG Tablet 1 tablet as needed Orally every 6 hrs; Duration: 7 days As needed 5ActiveCelecoxib 200 MG CapsuleTAKE 1 CAPSULE BY MOUTH TWICE A DAY NEEDED FOR PAIN Oral; Duration: 30 DaysActivemetFORMIN HCl ER 500 MG Tablet Extended Release 24 HourTAKE 3 TABLETS (1,500 MG TOTAL) BY MOUTH DAILY WITH BREAKFAST Oral; Duration: 90 DaysActiveTestosterone 20.25 MG/ACT (1.62%) Gel PLACE 3 ACT ON THE SKIN IN THE MORNING Transdermal; Duration: 23 DaysActive Social History Section Notes: Former tobacco use. Social alcohol use. Encounters Encounter Location Date Provider Diagnosis [facility] [place], [facility] [address], [place] [address] 08/21/2025 eJremy Cerrato Strain of other specified muscles and tendons at ankle and foot level, left foot, initial encounter S96.812A ; Plantar fasciitis, left M72.2 and Peroneal tendinitis, left leg M76.72 Assessments Encounter Date Diagnosis (ICD Code) Assessment Notes Treatment Notes Treatment Clinical Notes Section Notes 08/21/2025 Strain of other spec ified muscles and tendons at ankle and foot level, left foot, initial encounter (ICD-10 - S96.812A) Milton is ~5 weeks s/p plantar fascial rupture. He has improved significantly with RICE therapy and PT which he should continue. He has developed pain along lateral border of his foot which I'm unable to reproduce, which is common and likely secondary to compensation. This should get better with time. He also has developed peroneal tendinitis (see below). I do not believe he will require surgery and more time and PT will ultimately likely lead to full recovery in next 1-2 months. No new xrays needed at f/u 08/21/2025Plantar fasciitis, left (ICD-10 - M72.2)08/21/2025Peroneal tendinitis, left leg (ICD-10 - M76.72)He may consider an ASO brace if this pain does not continue to improve. Continue OTC pain medicine and avoid impact exercise until symptoms have completely resolved Plan Of Treatment Treatment Notes Assessment Notes Strain of other specified mu scles and tendons at ankle and foot level, left foot, initial encounter Milton is ~5 weeks s/p plantar fascial rupture. He has improved significantly with RICE therapy and PT which he should continue. He has developed pain along lateral border of his foot which I'm unable to reproduce, which is common and likely secondary to compensation. This should get better with time. He also has developed peroneal tendinitis (see below). I do not believe he will require surgery and more time and PT will ultimately likely lead to full recovery in next 1-2 months. 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 Continue OTC pain medicine and avoid impact exercise until symptoms have completely resolved Next Appt Details Follow Up: 6 Weeks,prn, Reas on: History and Physical Notes * HPI (History of Present Illness) CategorySub-CategoryDetailNotesCategory NotesKemi presents for f/u of left plantar fascial rupture he is doing much better relating to pain onlyalong the lateral border of the foot and peroneal tendons with prolonged WB activity. He is doing PT and happy with his progress Examination CategorySub-CategoryDetailNotesCategory NotesGeneral Examination Skin: skin intact with no open wounds. No signs of infection Neuro: light touch intact to dorsal & plantar foot. Negative tinel's sign Vascular: Palpable pedal pulses. No significant swelling or bruising. No calf pain on squeeze MSK: No POP. Able to fire all muscle groups equally & symmetrically although there is mild guarding on active eversion. Progress Notes * Milton VAUGHNDOB:1975 ([age] yo M)Acc No.[id number]:08/21/2025 Progress Notes Patient: Milton Esteban :?Jeremy CerratoALEXANDERMDOB:1975???Age:50 Y ???Sex:MaleDate:08/21/2025Phone:Address:[address] [place], [place] [id number]:Alexia Mancilla Subjective: * Chief Complaints: * L eft Foot Pain * HPI: ???Foot:?Milton presents for f/u of left plantar fascial rupture he is doing much better relating to pain onlyalong the lateral border of the foot and peroneal tendons with prolonged WB activity. He is doing PT and happy with his progress. * ROS: ???General / Constitutional: Patient denies [...] * Surgical History: Denies Past Surgical History.? Surgical History verified.? * Family History: F ather: alive, diagnosed with Heart disease. M other: alive, diagnosed with Type 2 diabetes mellitus without complication, unspecified whether terminal superintendent insulin use. P aternal Grandfather: diagnosed with Type 2 diabetes mellitus without complication, unspecified whether senior care insulin use. S ister: diagnosed with Other [...] 1 TABLET BY MOUTH EVERY DAY Oral traMADol HCl 50 MG Tablet 1 tablet as needed Orally every 6 hrs As neededdexAMETHasone Sodium Phosphate 4 MG/ML Solution 1.5 - 2.5 mL topical 3 times a week take to physical therapy for iontophoresisdexAMETHasone Sodium Phosphate 4 MG/ML Solution 1.5 - 2.5 mL topical 3 times a week take to physical therapy for iontophoresisMedication List reviewed and reconciled with the patientTaking [...] 1 TABLET BY MOUTH EVERY DAY Oral Taking traMADol HCl 50 MG Tablet 1 tablet as needed Orally every 6 hrs As neededTaking dexAMETHasone Sodium Phosphate 4 MG/ML Solution 1.5 - 2.5 mL topical 3 times a week take to physical therapy for iontophoresisTaking dexAMETHasone Sodium Phosphate 4 MG/ML Solution 1.5 - 2.5 mL topical 3 times a week take to physical therapy for iontophoresisMedication List reviewed and reconciled with the patient * Allergies: N .K.D.A.yesAllergies Verified. Objective: * Examination: ???General Examination: ???Skin: skin intact with no open wounds. No signs of infection Neuro: light touch intact to dorsal & plantar foot. Negative tinel's sign Vascular: Palpable pedal pulses. No significant swelling or bruising. No calf pain on squeeze MSK: No POP. Able to fire all muscle groups equally & symmetrically although there is mild guarding on active eversion. Assessment: * Assessment: 1.?Strain of other specified muscles and tendons at ankle and foot level, left foot, initial encounter - S96.812A (Primary)???2.?Plantar fasciitis, left - M72.2?? 3.?Peroneal tendinitis, left leg - M76.72??? Plan: * Treatment: Notes: Milton is ~5 weeks s/p plantar fascial rupture. He has improved significantly with RICE therapy and PT which he should continue. He has developed pain along lateral border of his foot which I'm unable to reproduce, which is common and likely secondary to compensation. This should get better wit h time. He also has developed peroneal tendinitis (see below). I do not believe he will require surgery and more time and PT will ultimately likely lead to full recovery in next 1-2 months. No new xrays needed at f/u?? 2.?Peroneal tendinitis, left leg? Notes: He may consider an ASO brace if this pain does not continue to improve. Continue OTC pain medicine and avoid impact exercise until symptoms have completely resolved?? * Follow Up: 6 Weeks,prn Billing Information: * Visit Code: 85495 Office Visit, Est Pt., Level 3. * Procedure Codes: * Sign off status: Completed true * Provider: Camelia Cerrato DPM Date: 10/22/2024 Generated for Printing/Faxing/eTransmitting on:?08/26/2025 12:44 PM EST
--- NOTE | 2025-08-26 12:42 | PM.CN ---
Consult Note: HPI Data of Consult Patient: known to practice within the last 3 years Consult date: 07/08/25 Requesting Physician: Liliane Garcia NP Primary Care Provider: EFFIE SARMIENTO Consult Narrative Reason for consult: back and BLE pain Narrative: Milton Vaughn a pleasant 50 year old male with chronic low back pain secondary to lumbar spondylosis, lumbar stenosis, lumbar DDD presents for evaluation. Pt noticing over the three months increased low back and BLE pain post fall end of june. pt did attempt additional 6 visits of PT without improvement in his pain or quality of life. Pain today 6-7/10 increasing to 10/10 with sleep and upon waking. utilizing celebrex and flexeril with minimal relief.. Recently underwent lumbar MRI with results below cc:: CC: Liliane Garcia NP Review of Systems ROS Musculoskeletal Reports: back pain and extremity pain PFSH PFSH Medical History Osteoarthritis ?M19.90 - Unspecified osteoarthritis, unspecified site (ICD-10) KWAN on CPAP ?G47.33 - Obstructive sleep apnea (adult) (pediatric) (ICD-10) Sleep apnea ?G47.30 - Sleep apnea, unspecified (ICD-10) Meds Home Medications and Allergies Home Medications ?Medication ?Instructions ?Recorded ?Confirmed ?Type celecoxib 200 mg capsule (Celebrex) 200 mg PO BID 11/05/23 12/29/24 History cranberry fruit 400 mg capsule 1,600 mg PO DAILY 11/05/23 12/29/24 History loratadine 10 mg tablet (Claritin) 10 mg PO DAILY 11/05/23 12/29/24 History ascorbic acid (vitamin C) 1,000 mg 1,000 mg PO DAILY 12/03/23 12/29/24 History tablet,extended release (C Complex) paroxetine HCl 10 mg tablet 10 mg PO DAILY 01/07/24 12/29/24 History tizanidine 4 mg tablet 4 mg PO DAILY 06/30/24 12/29/24 History gabapentin 300 mg capsule 300 mg PO DAILY #30 caps 09/17/24 12/29/24 Rx calcium 600 mg capsule mg PO 01/07/25 History cyanocobalamin (B12)-cobamamide judy sublingual 01/07/25 History 5,000 mcg-100 mcg sublingual lozenge (B12) turmeric 400 mg capsule mg PO 01/07/25 History celecoxib 200 mg capsule (Celebrex) 200 mg PO BID PRN pain #60 caps 04/15/25 Rx tizanidine 4 mg capsule 4 mg PO DAILY PRN muscle 04/15/25 Rx spasticity #30 caps cyclobenzaprine 10 mg tablet See Rx Instructions .Route 08/12/25 Rx .COMPLEX PRN muscle spasm #90 tabs Allergies Allergy/AdvReac Type Severity Reaction Status Date / Time No Known Drug Allergies Allergy Verified 12/29/24 07:21 Exam Constitutional Documenting provider has reviewed patient's vital signs: yes Common normals: no apparent distress, oriented x3, healthy appearing, alert and well nourished General appearance: cooperative HENMT Common normals: normocephalic, hearing grossly normal bilaterally and moist oral mucous membranes Head and scalp: normocephalic Eye Common normals: PERRL Pupil: PERRL Neck & C-Spine Common normals: full ROM General: normal visual inspection Chest Common normals: inspection of chest normal Respiratory Common normals: normal respiratory effort, no retractions and no use of accessory muscles Back & Pelvis Thoracic spine/upper back: thoracic spinal tenderness and paraspinal muscle tenderness Lumbar spine/lower back: lumbar spinal tenderness, paraspinal muscle tenderness and straight leg raise positive left Other: radiculopathy noted left L4,5,S1 strength 5/5 in BLE diffuse myofascial pain mild pain with facet loading no pain with forward flexion Neuro Common normals: oriented x3 Sensorium/orientation: alert Psych Common normals: mental status grossly normal, thought process normal, cooperative, affect normal, speech normal and activity/motor behavior normal Speech: normal speech Thought process: normal thought process Results Imaging Lumbar MRI: Attestation: I have reviewed the pertinent imaging results. Radiologist's impression: The bones of the lumbar spine are in anatomic alignment. Linear abnormal signal intensity is noted traversing the anterior wall of the T12 vertebral body extending obliquely and superiorly through the disc space. There is accompanying marrow edema. This may represent a fracture involving the anterior column. There is accompanying paraspinous edema. Benign-appearing hemangiomas are noted at L4 and S2. The conus terminates at the superior endplate of the L1 vertebral body level. No epidural or paraspinous fluid collection is appreciated. At T12-L1: There is a normal disc, central canal, and neural foramen. At L1-L2: There is a normal disc, central canal, and neural foramen. At L2-L3: There is a normal disc, central canal, and neural foramen. At L3-L4: There is a broad-based disc bulge with facet hypertrophy. There is mild spinal canal narrowing with moderate right and mild left neural foraminal narrowing. This is similar to the prior exam. At L4-L5: There is a circumferential disc bulge with facet hypertrophy and ligamentum flavum thickening. There is moderate spinal canal stenosis with moderate bilateral neural foraminal narrowing. This is similar to the prior exam. At L5-S1: There is a broad-based disc bulge with facet hypertrophy and endplate osteophyte formation. There is moderate left and mild right neural foraminal narrowing without spinal canal narrowing. This is similar to the prior exam. Additional Findings Additional findings: If on a controlled substance or opioids, I have checked an [place]AR[place] report on this patient and there are no aberrancies noted in the prescribing history.??If on a controlled substance or opioid a drug screen was completed and reviewed within the last year, and if there has not been a drug screen completed we ordered one today to monitor higher risk, state monitored pain medication use. As part of providing excellent, safe, comprehensive care, the following was completed at our patient's visit: 1. A medication reconciliation and review to ensure accurate knowledge of current/active medications, including asking our patients to inform us about any eyxf-idy-panpunx medications or herbal remedies/nutritional supplements/alternative remedies. 2. A review to specifically ensure our patients have had annual screening for screening for depression, screening for tobacco use, and screening for unhealthy alcohol use. For concerning screenings had a discussion with the patient, provided patient education, and recommended follow-up with primary care provider when appropriate. If patient noted with a risk of falling, they received education on strength, gait, and balance training to prevent future risk of falling. Portions of this note may have been carried over from the previous visit and updated as appropriate. Please note this office utilizes paper charting in addition to the electronic medical record. A list of current medications, vitals, and PMH is available there as the clinical staff outside of myself do not have access to [facility] charting during the clinic day operations. As part of providing quality comprehensive care the current medications, vitals, and PMH were reviewed in the paper chart. Assessment and Plan Assessment and Plan (1) Fracture of T12 vertebra: (2) Lumbar stenosis with neurogenic claudication: (3) Degenerative disc disease (DDD) of lumbar region with axial back pain without leg pain: (4) Myalgia: (5) Lumbago: Qualifiers: Back pain laterality: bilateral Chronicity: chronic Sciatica presence: unspecified whether sciatica present Qualified Code(s): M54.50 - Low back pain, unspecified; G89.29 - Other chronic pain Plan The patient has had over 3 months of moderate to severe low back and BLE pain with functional impairment and inadequate response to conservative care including NSAIDS (unless there are contraindication such as concurrent blood thinners), multiple oral or topical pain medications, and home exercise program/physical therapy.? Patient has completed >6 weeks of guided home exercise program and/or formal physical therapy program without relief of their symptoms.? The Oswestry Disability Index was completed, and the patient scored a 22%.? lumbar MRI reviewed with pt, will place urgent referral to NS for evaluation of T12 fracture. once cleared by NS, will repeat left L4-5 L5-S1 TFESI under fluoroscopy for lumbar stenosis with NC. prior left L4-5 L5-S1 TFESI provided >50% improvement greater than 6 months continue flexeril 10mg tid prn pain/spasms, can decrease to 1/2 tab daytime as toelrated f/u 2 weeks after procedure
--- OUTSIDE RECORDS SUMMARY | 2025-08-26 12:44 | XMS_ITS | Clinical Summary ---
Author Organization [facility] Address [address] [place] [address] Care Team Providers Care Upholstery Bundler Name Role Phone Unavailable Primary Care Provider Unavailabl e Social History Tobacco UseTypesPacks/DayYears UsedDateSmoking Tobacco: Never AssessedUT Safety & EnvironmentAnswerDate RecordedFear of Current or Ex-PartnerNot on file 11/01/2023Emotionally AbusedNot on file11/01/2023hysically AbusedNot on file 11/01/2023Sexually AbusedNot on file11/01/2023hysically or Sexually AbusedNot on file11/01/2023Sex and Gender InformationValueDate RecordedSex Assigned at BirthNot on fileLegal ArrXjtg2303/08/2022 10:39 PM EDTGender IdentityNot on file Sexual OrientationNot on file Last Filed Vital Signs Vital SignReadingTime TakenCommentsBlood Ijeajtze003/9412 10:54 AM EST Nazec99974/04/2019 10:54 AM GUSJamjcrrzgks49.7 ??C (98 ??F)07/08/2019 4:05 PM EDTRespiratory Rate--Oxygen Saturation--Inhaled Oxygen Concentration--Kkhcox854 kg (409 lb 15.9 oz)12/29/2021 11:33 AM UPCVrkoym719.3 cm (5' 9 )12/29/2021 11:32 AM EDTBody Mass Index60.55012/29/2021 11:32 AM EDT Plan of Treatment Health MaintenanceDue DateLast DoneCommentsCT Vxizrjfhkonc1977Colonoscopy 1977Colorectal Cancer Mkiaozngq1977FIT-DNA1977FIT1977 FOBT1977Medicare Annual Wellness (AWV)1977 4665Uyklyzkxsegvu1977 Depression Qkozisutx08/12/1989Hepatitis B Vaccines (1 of 3 - 19+ 3-dose series) 1996Adult Bjsmmgu6803/21/1999Influenza Vaccine (#1)2025Zoster Vaccines (1 of 2)2027Pneumococcal Vaccine: [...] Milton VaughnAccount TypeRelation to PatientDate of BirthPhoneBilling AddressPersonal/QzuqzmVgwb1975 [place] [address]
--- OUTSIDE RECORDS SUMMARY | 2025-08-26 12:45 | XMS_ITS | Patient Health Record ---
Author Organization [facility] Address [address] [place] [address] Care Team Providers Care Vending Machine Attendant Name Role Phone Jose Romero Unavailable [phone] Allergies No Known Allergies Reason For Referral [...] containging alcohol in the last year? Yes Rpxoju3EywrkyptrfoejsJpucisfo Problems Problem Type SNOMED Code ICD Code Onset Dates Problem Status W/U Status Risk Notes Problem Lumbar spondylosis (040136317) Lumbar spo ndylosis (M47.816) ActiveconfirmedProblemDegeneration of lumbosacral intervertebral disc (45714578) Other intervertebral disc degeneration, lumbosacral region (M51.37)Active confirmedProblemSpinal stenosis of lumbar region (67527002)Spinal stenosis, lumbosacral region (M48.07)ActiveconfirmedProblemLocalized, primary osteoarthritis of the pelvic region and thigh (206678493)Unilateral primary osteoarthritis, left hip (M16.12)Activeconfirmed Plan Of Treatment No Information Insurance Providers Payer Name Payer Address Payer Phone Subscriber Number Group Number Insured Name Patient Relationship to Insured Coverage Start Date Coverage End Date ANTHEM BS [address] [place] [address] [id number] RAKESH PIÑA Self - patient is the insured Medical (General) History Medical History History ICD Code Sleep apnea CPAP Machine:Do you use the CPAP machine? YesSurgical History Surgery Date(Month/Year) Bariatric 2010
--- OUTSIDE RECORDS SUMMARY | 2025-08-26 12:45 | XMS_ITS | Clinical Summary ---
Author Organization [facility] Address [address] [place] [address] Care Team Providers Care Marine Safety Officer Name Role Phone Lisseth Blank MD Primary Care Provider [phone] Allergies Active AllergyReactionsCriticalityNoted AsqjQmsfphxqSupkv93/27/2023 environmental Medications MedicationSigDispense QuantityRefillsLast FilledStart DateEnd DateStatus [...] Problems ProblemNoted DateDiagnosed DatePerforation of left tympanic qqkdvapl72/02/2023 Chronic eiteiaix81/27/2023ysfunction of both eustachian tubes04/05/2023 Iejeqskwrj82/27/2023LPRD (laryngopharyngeal reflux disease)04/05/2023Otorrhea of right ear04/05/2023erforation of right tympanic apqdtigr24/27/2023Sensorineural hearing loss, ugqybdbdc09/27/7839Kbezkvkfmn87/27/2023NASH (nonalcoholic steatohepatitis)04/05/2023OSA (obstructive sleep apnea)04/05/2023Sinus ogmjcptzduz28/27/2023 Immunizations ImmunizationAdministration DatesNext DueInfluenza, injectable, quadrivalent, preservative free05/31/2023,06/07/2022Influenza, seasonal, injectable, preservative free07/08/2024Novel exwunhoyb-L8D9-85, preservative-free08/18/2009 Pneumococcal Polysaccharide CALC2466 Family History Medical HistoryRelationNameCommentsHeart failureFatherDiabetesMaternal GrandfatherCancerSisterRelationNameStatusCommentsFatherAliveMaternal Grandfather MotherAliveSister Social History Tobacco UseTypesPacks/DayYears UsedDateSmoking Tobacco: NeverSmokeless Tobacco: Never Tobacco Cessation:Counseling Given: Not Answered Alcohol UseStandard Drinks/WeekCommentsNot Currently0 (1 standard drink = 0.6 oz pure alcohol)Sex and Gender InformationValueDate RecordedSex Assigned at Not on fileLegal QxnTyee3711/22/2022 6:44 PM EDTGender IdentityNot on fileSexual OrientationNot on file Last Filed Vital Signs Vital SignReadingTime TakenCommentsBlood Klhndpre223/8508 11:31 AM EDT Pulse--Temperature--Respiratory Rate--Oxygen Saturation--Inhaled Oxygen Concentration--Diusni647 kg (375 lb)11/05/2024 10:17 AM WNLHbyefd725.3 cm (5' 9 )11/05/2024 10:17 AM ESTBody Mass Index55.38011/05/2024 10:17 AM EST Plan of Treatment Not on file Insurance MemberSubscriberPlan / Payer (Effective 2022-Present)Name:Milton Piña Member ID:[id number] Relation to Subscriber:SpouseName:CHRISTINA PIÑA Subscriber ID:[id number] Date of :1977 (Home) Address: [address] [place] [id number] Payer ID:Not on file Type:Not on file Address: [facility] [address] [place] [address] Care Teams Team MemberRelationshipSpecialtyStart DateEnd Date Lisseth Blank MD [address] [place] [id number] PCP - GeneralFamily Medicine04/05/23
--- OUTSIDE RECORDS SUMMARY | 2025-08-26 12:45 | XMS_ITS | Clinical Summary ---
Author Organization [facility] Address [address], [address] [place] [address] Care Team Providers Care Digital Specialist Name Role Phone Unavailable Primary Care Provider Unavailabl e Social History Tobacco UseTypesPacks/DayYears UsedDateSmoking Tobacco: Never AssessedSex and Gender InformationValueDate RecordedSex Assigned at BirthNot on fileLegal Sex Male10/20/2012 10:59 AM ESTGender IdentityNot on fileSexual OrientationNot on file Plan of Treatment Health MaintenanceDue DateLast DoneCommentsDepression Csaggu8603/21/1989HIV screen 1992Hepatitis C tslydh0303/21/1995DTaP/Tdap/Td vaccine (1 - Tdap)1996 Hepatitis B vaccine (1 of 3 - 19+ 3-dose series)03/21/19968711Koqgsq82/12/2017 Vhbmymobuhm07/12/2022olorectal Cancer Fjqydx6203/21/2022FIT/FOBT: Average risk 2022Fecal-DNA (Cologuard): Average risk2022igmoidoscopy/CT /12/2022Flu vaccine (#1)509/, 06/07/2022, 08/18/2009COVID-19 Vaccine ( season)503/01/2021, [...]
--- OUTSIDE RECORDS SUMMARY | 2025-08-26 12:45 | XMS_ITS | Clinical Summary ---
Author Organization [facility] Address [address] [place] [address] Care Team Providers Care Fold Skiver Name Role Phone Lisseth Blank MD Primary Care Provider [phone] Allergies No known active allergies Medications MedicationSigDispense [...] - Left Eye08/21/2014Open wound anterior abdominal wall09/29/2010Morbid rixdabh8709/29/2010 Family History Medical HistoryRelationCommentsHeartFatherCataractMaternal GrandmotherCancer SisterRelationStatusCommentsFatherMaternal GrandmotherSister Social History Tobacco UseTypesPacks/DayYears UsedDateSmoking Tobacco: FormerCigarettes1.515 06/21/1995 - 06/21/2010Smokeless Tobacco: FormerAlcohol UseStandard Drinks/Week CommentsYes0 (1 standard drink = 0.6 oz pure alcohol)2 o2 three beers every other weekendSex and Gender InformationValueDate RecordedSex Assigned at Not on fileLegal MajPazt66/02/2012 8:32 AM ESTGender IdentityNot on fileSexual OrientationNot on file Last Filed Vital Signs Vital SignReadingTime TakenCommentsBlood Vdczbwzr524/5601/ 1:15 PM EST Kynty2737 1:15 PM XATCdwzcetitca90.4 ??C (97.6 ??F)10/06/2014 11:49 AM ESTRespiratory Jfch370010/06/2014 1:15 PM ESTOxygen Xatmkpfuww35%10/06/2014 1:15 PM ESTInhaled Oxygen Concentration--Nvsbiv081.1 kg (397 lb)09/23/2014 10:11 AM UZKZlmrob329.3 cm (5' 9 )09/23/2014 10:11 AM ESTBody Mass Index58.63009/23/2014 10:11 AM EST Plan of Treatment Health MaintenanceDue DateLast DoneCommentsAnxiety Nrzcmcbnn39/12/1995Depression Aarqvojca25/12/1995HIV Uvqbucdqv59/12/1995Hepatitis C Fjmkrnibv22/12/1995 DTaP,Tdap,Td Vaccine (1 - Tdap)1996Hepatitis B Vaccine (1 of 3 - 19+ 3- dose series)1996Lipid Wusxcscog56/12/2012CT Lmuxeoqghami18/12/2022 Cologuard (FIT-DNA)0985Czwexdbzbzi13/12/2022Colorectal Cancer Screening 2Diabetes Drkbwrcoq43/, 11/24/2012, 11/23/2012, Additional history existsFecal Occult Blood03/21/20225100Njaxyhxhcdwlt31/12/2022 Covid-19 Vaccine ()05/11/2025Influenza Vaccine (#1)2025 Medical Devices ImplantedTypeAreaManufacturerDevice IdentifierShelf Expiration DateModel / Serial / LotMesh Srg Parietex 12cm 12cm - [id number] Implanted:Qty: [facility]: AbdomenCOVIDIEN USMD 05/10/[id number] / / [id number]:Parietex optimized composite mesh 12cmMesh Srg Surgipro 14x9in Niels - [id number] Implanted:Qty: 1 on 11/20/2012 at [facility] 04/09/[id number] / / [id number]:surgipro monofilament polypropylene mesh Procedures Procedure NamePriorityDate/TimeAssociated DiagnosisCommentsBASIC METABOLIC PANEL Exkyemx0611/26/2012 5:38 AM EDT from Last 3 Months or Most Recently Relevant to Health Maintenance Results * (ABNORMAL) BASIC METABOLIC PNL (11/26/2012 5:38 AM EDT)ComponentValueRef Range Test MethodAnalysis TimePerformed AtPathologist JubbiwjurHuethrx5521 - 100 mg/dLLAKE [facility] LABORATORYBUN7(L)10 - 25 mg/dLLAKE [facility] LABORATORYCreatinine0.740.70 - 1.40 mg/dLLAKE [facility] Sjlspo976442 - 146 mmol/LCMETROHEALTH PARMA MEDICAL [facility] LABORATORYPotassium3.4(L)3.5 - 5.0 mmol/LCTHE [facility] GFORGXVNCYLskusevb79(L)98 - 110 mmol/L [facility] TPNLBZBPZAPP752(H)23 - 32 mmol/LCTHE [facility] LABORATORYAnion Gap90 - 15 mmol/LCMETROHEALTH PARMA MEDICAL CENTER LABORATORYCalcium8.68.5 - 10.5 mg/dLLAKE [facility] LABORATORYSpecimen (Source)Anatomical Location / LateralityCollection Method / VolumeCollection TimeReceived Time Blood specimen (specimen)BLOOD SPECIMEN / Tnycwbj5211/26/2012 5:38 AM EDT 11/26/2012 5:39 AM EDT Narrative Authorizing ProviderResult TypeResult StatusStevkaushal See MDLABORATORYFinal ResultPerforming OrganizationAddressCity/State/ZIP CodePhone Number [facility] [address] [place] [address] from Last 3 Months or Most Recently Relevant to Health Maintenance Insurance * Guarantor: Milton Vaughn TypeRelation to PatientDate of BirthPhone Billing AddressSelf [id number] [address] [place] [address] Care Teams Team MemberRelationshipSpecialtyStart DateEnd Date Lisseth Blank MD [address] [place] [address] [facility] - Dotkhjx65/22/10
--- OUTSIDE RECORDS SUMMARY | 2025-08-26 12:45 | XMS_ITS | Clinical Summary ---
Author Organization [facility] Address [id number] [address] [place] [address] Care Team Providers Care Software Project Manager Name Role Phone Alexia Mancilla APRN-UNDERTAKER HELPER Primary Care Provider [phone] Allergies No known active allergies Medications MedicationSigDispense [...] mouth daily with breakfast. 270 tablet 5Active Encounters DateTypeDepartmentCare XugfXfbkcveeabk39/20/2025Orders Only [facility] [address] [facility] [address] [place] [id number] Ref Prov, Not In System 07/27/2025Orders Only [facility] [address] [place] [address] Ref Prov, Not In System 07/24/2025 9:00 AM ESTOffice Visit [facility] [address] [facility] [phone] Nury Quinteros MD Morbid obesity with BMI of 50.0-59.9, adult ([facility]) (Primary Dx); Low 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; Insulin resistance; Abdominal wall mass of epigastric zqprmj4407/24/20252000Xjitsy40/26/2025Refill [facility] [address] [facility] [phone] Nury Quinteros MD Low 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from Last 3 Months Family History Medical HistoryRelationNameCommentsHeart failureFatherDiabetesMaternal GrandfatherNo Known ProblemsMotherCancerSisterCervical cancerSisterRelationName StatusCommentsFatherAliveMaternal GrandfatherMotherAliveSisterDeceased Social History Tobacco UseTypesPacks/DayYears UsedDateSmoking Tobacco: FormerCigarettes Smokeless Tobacco: Never Tobacco Cessation:Counseling Given: Not Answered Alcohol UseStandard Drinks/WeekCommentsNot Asked0 (1 standard drink = 0.6 oz pure alcohol)SOCIALLYAUDIT-CAnswerDate RecordedQ1: How often do you have a drink containing alcohol?Never07/24/2025verage Number of DrinksNot on file07/24/2025 Frequency of Binge DrinkingNot on file07/24/2025hildcareAnswerDate Recorded PxsvbjjqnMerjxui61/12/2019EmploymentAnswerDate RecordedEmploymentUnknown 02/19/2019Sex and Gender InformationValueDate RecordedSex Assigned at BirthNot on fileLegal RgnAoxj5704/15/2015 12:09 PM EDTGender IdentityNot on fileSexual OrientationNot on file Last Filed Vital Signs Vital SignReadingTime TakenCommentsBlood Ycnjxnex341/9607/24/2025 8:54 AM EST Sfbcs144007/24/2025 8:54 AM ESTTemperature--Respiratory Rate--Oxygen Saturation-- Inhaled Oxygen Concentration--Yjqfba059.3 kg (373 lb 3.2 oz)07/24/2025 8:54 AM EZOIwgmkh198.3 cm (5' 9 )07/24/2025 8:54 AM ESTBody Mass Index55. 8:54 AM EST Plan of Treatment Health MaintenanceDue DateLast DoneCommentsDepression Bgkvuoxyc07/12/1989 DTaP,Tdap and Td Vaccines (1 - Tdap)1996COVID-19 Vaccine (3 - season)/01/2021, 10/22/2020Influenza Lxmvghy90/, 05/31/2023, 06/07/2022, Additional history existsAdult BMI Follow Up Plan /dult BMI Xclvoqyhd72Tobacco Screening Medical Devices Not on file Procedures Procedure NamePriorityDate/TimeAssociated DiagnosisCommentsMULTIPLE LABSRoutine 07/30/2025 10:11 AM ESTMULTIPLE MRTMLjovegm57/20/2025 10:10 AM ESTMULTIPLE LABS Fwkhdtk2807/21/2025from Last 3 Months Results * Multiple labs (07/30/2025 10:11 AM EST) Only the most recent of3 resultswithin the time period is included. Narrative Authorizing ProviderResult TypeResult StatusNot In System Ref ProvPR IMAGING Final ResultPerforming OrganizationAddressCity/State/ZIP CodePhone Number MANUALLY TRANSCRIBED RESULTS from Last 3 Months Insurance Care Teams Team MemberRelationshipSpecialtyStart DateEnd Date Alexia Mancilla, HOME SERVICE CONSULTANT-UNDERTAKER HELPER [address] [place], [place] [address] [place] [address] PCP - GeneralNurse Practitioner11/28/24
--- OUTSIDE RECORDS SUMMARY | 2025-08-26 12:45 | XMS_ITS | Patient Health Record ---
Author Organization [facility] Address [address] [facility] [address], [place] [address] Care Team Providers Care Water Plumber Name Role Phone Alexia Mancilla Primary Care Provider UnavailJeremy Camarillo Unavailable [phone] Allergies No Known Allergies Reason For Referral [...] iontophoresis 5ActiveBaclofen 10 MG TabletOral; Duration: 30 DaysActiveCelecoxib 200 MG CapsuleTAKE 1 CAPSULE BY MOUTH TWICE A DAY NEEDED FOR PAIN Oral; Duration: 30 DaysActivemetFORMIN HCl ER 500 MG Tablet Extended Release 24 HourTAKE 3 TABLETS (1,500 MG TOTAL) BY MOUTH DAILY WITH BREAKFAST Oral; Duration: 90 Days ActiveTestosterone 20.25 MG/ACT (1.62%) GelPLACE 3 ACT ON THE SKIN IN THE MORNING Transdermal; Duration: 23 DaysActivePARoxetine HCl 10 MG TabletTAKE 1 TABLET BY MOUTH EVERY DAY Oral; Duration: 90 DaysActivetraMADol HCl 50 MG Tablet 1 tablet as needed Orally every 6 hrs; Duration: 7 days As needed 5Active Social History Section Notes: Former tobacco use. Social alcohol use. Former tobacco use. Social alcohol use. 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) P lantar fasciitis, left (M72.2) Activeconfirmed Encounters Encounter Location Date Provider Diagnosis [facility], [address] [address], [place] [address] 07/17/2025 Jeremy Nicecarter Plantar fasciitis, left M72.2 and Strain of other specified muscles and tendons at ankle and foot level, left foot, initial encounter [address] [address], [place] [address] 07/24/2025 Jeremy Cerrato Strain of other specified muscles and tendons at ankle and foot level, left foot, initial encounter S96.812A and Plantar fasciitis, left M72.2 [address] [address], [place] [address] 08/21/2025 Jeremy Cerrato Strain of other specified muscles and tendons at ankle and foot level, left foot, initial encounter S96.812A ; Plantar fasciitis, left M72.2 and Peroneal tendinitis, left leg M76.72 [address] [address], [place] [address] 07/27/2025 Jeremy Cerrato Assessments Encounter Date Diagnosis (ICD Code) Assessment [...] orthotics, night splint, RICE therapy and massage. 07/24/2025Strain of other specified muscles and tendons at ankle and foot level, left foot, initial encounter(ICD-10 - S96.812A) I recommended to continue with nonsurgical treatment. He has not picked up the Ultram and I encouraged him to do so. I also recommended adding iontophoresis to his PT regimen so a new order was provided. I did recommend a new xray be obtained but he would like to wait to see if the pain over sinus tarsi and peroneals improves with rest and time off of work. I did provide a note for work for him to be off from 07/23/25 until 08/10/25. He will call with updates or if he decides to get the xray as I did provide an order for that as well. 07/24/2025Plantar fasciitis, left (ICD-10 - M72.2)08/21/2025Strain of other specified muscles and tendons at ankle and foot level, left foot, initial encounter(ICD-10 - S96.812A) [place] is ~5 weeks s/p [...] symptoms have completely resolved Plan Of Treatment No Information Insurance Providers Payer Name Payer Address Payer Phone Subscriber Number Group Number Insured Name Patient Relationship to Insured Coverage Start Date Coverage End Date [employer] [place] [address] [place], [place] [id number] [phone] [id number] Maribel Vaughn - patient is the insured Medical (General) History Medical History History ICD Code Arthritis DiabetesDepression
== END 2025-08-26 12:40 | disposition home or self-care (01) ==
LOC: PM 12:40
PROVIDERS: PCP Nurse Practitioner; Visit Provider Nurse Practitioner
DX: S22.088A Other fracture of T11-T12 vertebra, initial encounter for closed fracture (principal); M48.062 Spinal stenosis, lumbar region with neurogenic claudication; M51.360 Other intervertebral disc degeneration, lumbar region with discogenic back pain only; M79.18 Myalgia, other site; G89.29 Other chronic pain
CPT/HCPCS: G0463